=== PATIENT | male | born 1955 ===

== ENCOUNTER 2020-02-08 14:08 | Outpatient (REF) | payer OTHER, SELFPAY ==
--- NOTE | 2020-02-08 | US_ITS ---
EXAMINATION: NONINVASIVE ASSESSMENT OF THE ARTERIES OF BOTH LOWER EXTREMITIES WITH PVR EXAM AND BILATERAL LOWER EXTREMITY DUPLEX and aorta CLINICAL INFORMATION: Peripheral vascular disease TECHNIQUE: Ankle pulse volume recordings, ankle pressure measurements and ankle brachial indices were obtained of the lower extremity arterial system bilaterally in addition to duplex Doppler techniques with wave form analysis and measurement of velocities in the common femoral, profunda femoral, superficial femoral, popliteal and tibial arteries. The study was performed only at rest. COMPARISON: Previous exam July 2018 FINDINGS: a) AT REST: The aorta is normal in caliber. There is atherosclerotic plaque. Peak systolic velocity is normal measuring 10 8 cm/s. The common iliac arteries are not visualized due to bowel gas. There is increased peak systolic velocity in the bilateral external iliac arteries measuring 2 5 8 cm/s on the right and 2 0 5 cm/s on the left. RIGHT LE. The right ankle-brachial index is: 1.3 2. Right ankle pressure: Slightly decreased 3. Right ankle PVR waveform: Slightly dampened * 4. Right direct duplex Doppler findings: There is diffuse atherosclerotic disease with vessel wall calcification. There is visible narrowing of the distal superficial femoral, popliteal and posterior tibial arteries. Common femoral artery: 182 cm/s, Diastolic flow reversal: Yes * Superficial femoral artery (proximal, mid, distal): 155, 145 and 217 cm/s, Diastolic flow reversal: Yes * Popliteal artery: 109 cm/s, Diastolic flow reversal: Yes * Posterior tibial artery: 53 cm/s, Diastolic flow reversal: No LEFT LE. The left ankle-brachial index is: 1.3 2. Left ankle pressure: Decreased 3. Left ankle PVR waveform: Decreased 4. Left direct duplex Doppler findings: There is diffuse atherosclerotic disease with vessel wall calcification. There is significant stenosis of the common femoral artery. There is a prominent collateral vessel arising from the common femoral artery proximal to the stenosis. There is monophasic flow seen throughout the left lower extremity. * Common femoral artery: 663 cm/s, Diastolic flow reversal: No * Superficial femoral artery (proximal, mid, distal): 119, 77 and 66 cm/s, Diastolic flow reversal: No * Popliteal artery: 38 cm/s, Diastolic flow reversal: No * Posterior tibial artery: 53 cm/s, Diastolic flow reversal: No LES Reference: * >0.97-1.25 = normal - no significant arterial disease * 0.75-0.96 = mild peripheral arterial disease * 0.5-0.74 = moderate peripheral arterial disease * <0.50 = severe peripheral arterial disease US/US arterial duplex LE BI IMPRESSION: Normal caliber aorta and normal aortic peak systolic velocities. The common iliac arteries are not well visualized. There is increased peak velocity in the bilateral external iliac arteries, right greater than left. No significant visible stenosis is appreciated. Right: The right LES is 1.3. This may be artifactually elevated due to vessel wall calcification. There is mild stenosis of the distal superficial femoral, popliteal and posterior tibial arteries. Peak systolic velocities are normal. There is loss of diastolic flow reversal in the right posterior tibial artery only. Left: The left LES is 1.3. This may be artifactually elevated due to vessel wall calcification. Severe left common femoral artery stenosis with prominent collateral vessel. There is monophasic flow seen throughout the left lower extremity. . .
== END 2020-02-08 14:09 | disposition home or self-care (01) ==
LOC: HO.US 14:08
PROVIDERS: PCP Nurse Practitioner Family; Visit Provider Surgery Vascular Surgery
DX: I73.9 Peripheral vascular disease, unspecified (principal)
CPT/HCPCS: 76775; 93923; 93925

== ENCOUNTER 2020-02-12 15:30 | Outpatient (REF) | payer OTHER, SELFPAY | END 2020-02-12 15:31 | disposition home or self-care (01) | LOC: HO.US 15:30 | PROVIDERS: Visit Provider Surgery Vascular Surgery | DX: Z13.89 Encounter for screening for other disorder (principal) ==

== ENCOUNTER → 2020-03-15 13:44 | Outpatient (BNVA) | payer OTHER, SELFPAY | PROVIDERS: PCP Nurse Practitioner Family; Visit Provider Surgery Vascular Surgery | DX: Z76.89 Persons encountering health services in other specified circumstances (principal) | CPT/HCPCS: Q3014 ==

== ENCOUNTER 2020-04-20 13:08 | Emergency (ER) | payer OTHER, SELFPAY ==
[2020-04-20 13:24] VITALS: BP 107/82; PULSE 74; RESP 16; TEMP 36.6; O2SAT 97; BMI 28.1
--- NOTE | 2020-04-20 13:54 | PC.NURSE ---
+pp by doppler
[2020-04-20] MEDS: Lidocaine HCl 1 % MPF 5 ML VIAL SUBCUT ×2 (15:05)
--- NOTE | 2020-04-21 19:45 | ED.LOWEXIN ---
HPI - Extremity Injury (Lower) General Chief Complaint: Extremity Injury, Lower Stated Complaint: left foot toe pain Time Seen by Provider: 04/20/20 14:46 History of Present Illness HPI Narrative: Patient complains of left big toe pain around the nail bed which has been going on for many days and getting slightly worse and it hurts when it rubs shoe, no fever no chills no injury Related Data Previous Rx's Medication Instructions Recorded tamsulosin 0.4 mg capsule 0.4 mg PO BEDTIME #30 cap 01/14/20 Allergies Allergy/AdvReac Type Severity Reaction Status Date / Time No Known Allergies Allergy Verified 03/15/20 13:43 [No Known Allergies*] Review of Systems Review of Systems: Positive for left big toe pain around the toenail Negatives are no fever no chills no dizziness no weakness no joint pain no joint swelling no rash no numbness no weakness no wound PMFSH Past Medical History Source: nursing notes reviewed Medical History (Updated 04/21/20 @ 00:01 by Jaylon Stoner) Diabetes High cholesterol HTN (hypertension) Surgical History (Updated 04/20/20 @ 13:30 by Jennyfer Masters) H/O shoulder surgery History of amputation of right forefoot Social History Social History Smoked in Last 30 Days: No Use of substances other than those prescribed or required for medical reasons: No Advance Directives: No Advance Directives Information Provided: No Physical Exam Vital Signs: Vital Signs: Last Vital Signs Temp 97.9 F 04/20/20 13:24 Pulse 74 04/20/20 13:24 Resp 16 04/20/20 13:24 BP 107/82 04/20/20 13:24 Pulse Ox 97 04/20/20 13:24 Body Mass Index 28.1 General appearance comfortable relax cooperative no acute distress Normocephalic atraumatic The neck is supple Respiratory no acute distress Extremities the left big toe lateral aspect of the nail bed is slightly red tender and appears to have an ingrown nail, skin is intact there is no significant redness or warmth there is full range of motion in all joints Skin no rash Neural no numbness or weakness Course Course Course Narrative: A digital block is used with 8 cc of 1% lidocaine on the left big toe Good anesthesia achieved the toes cleansed with Betadine and the lateral aspect of the left 1st toenail is flipped out with a forceps and cut with the scissors and there was a large section of ingrown nail removed There was no sign of infection no pus no significant redness and a dressing was applied Discharge Plan Discharge Clinical Impression: Ingrowing toenail of left foot Patient Disposition: Home, Self-Care Additional Instructions: Ingrown section of toenail was removed Return any concerns or any worse condition, or any sign of infection Follow with primary doctor and manager gyn if needed especially if problem occurs again there are treatments that prevent it from happening again available from manager gyn Prescriptions: No Action tamsulosin 0.4 mg capsule 0.4 mg PO BEDTIME Qty: 30 RF: 2 Interventions: ED Discharge Assessment Last Done: 04/20/20 15:46 Discharge Date/Time: 04/20/20 15:47
== END 2020-04-20 15:47 | disposition home or self-care (01) ==
PROVIDERS: Emergency Provider Emergency Medicine Emergency Medical Services; PCP Nurse Practitioner Family
DX: L60.0 Ingrowing nail (principal); E11.9 Type 2 diabetes mellitus without complications; I10 Essential (primary) hypertension
CPT/HCPCS: 11730; 99283; 99284

== ENCOUNTER 2020-06-13 12:53 | Outpatient (REF) | payer OTHER, SELFPAY ==
--- NOTE | ~2020-06-13 | XR_ITS ---
EXAMINATION: XR LUMBOSACRAL SPINE CLINICAL INFORMATION: Lumbago with left-sided sciatica COMPARISON: None TECHNIQUE: Four views of the lumbosacral spine. FINDINGS: No fracture or subluxation. Vertebral body height and alignment is maintained. Mild disc space narrowing of L4-L5 with remaining disc spaces maintained. Moderate multilevel endplate osteophytes throughout the lumbar spine. Facet arthropathy at the lower lumbar spine. The sacroiliac joints are symmetric. The sacrum appears intact. The bowel gas pattern is unremarkable. XR/XR lumbar spine 2-3V IMPRESSION: Mild to moderate multilevel degenerative changes throughout the lumbar spine, progressed at the L4-L5 level compared to the March 2013 study.
== END 2020-06-13 12:54 | disposition home or self-care (01) ==
LOC: HO.XRAY 12:53
PROVIDERS: Absent Provider General Practice; PCP General Practice; Visit Provider Emergency Medicine
DX: M54.42 Lumbago with sciatica, left side (principal)
CPT/HCPCS: 72100

== ENCOUNTER 2020-08-30 14:02 | Outpatient (RCR) | payer OTHER, SELFPAY | END 2020-09-15 04:20 | disposition home or self-care (01) | LOC: HO.PT 14:02 | PROVIDERS: PCP Emergency Medicine; Visit Provider Emergency Medicine | DX: M54.42 Lumbago with sciatica, left side (principal) | CPT/HCPCS: 97110; 97162 ==

== ENCOUNTER 2020-09-21 08:13 | Emergency (ER) | payer OTHER, SELFPAY ==
[2020-09-21 08:16] VITALS: BP 129/79; PULSE 84; RESP 12; TEMP 36.8; O2SAT 97; BMI 27.9
--- NOTE | 2020-09-21 09:01 | ED.GENADULT ---
HPI - General Adult General Chief complaint: General Medical Stated complaint: toe injury Time Seen by Provider: 09/21/20 08:41 Source: patient Mode of arrival: ambulatory Limitations: no limitations History of Present Illness HPI narrative: 65 y/o male with history of diabetes, PAD s/p right TMA by Dr. Topete who presents to the ER with recurrent left great toenail and toe pain going on for several weeks.. He was here for the same in April and had an ingrown toenail removed. He reports the toenail came back with a large horizontal crack in it and it is causing him some discomfort. He also has pain on the medial and lateral aspects the great toenail. He denies injury or drainage of pus. 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 MD complaint: left great toe pain Location: lower extremity Radiation: non-radiation Severity: mild Severity scale (1-10): 3 Quality: aching Pain Consistency: intermittent Relieving factors: rest Exacerbating factors: movement Associated symptoms: denies other symptoms Treatments prior to arrival: none Related Data Previous Rx's Medication Instructions Recorded tamsulosin 0.4 mg capsule 0.4 mg PO BEDTIME #30 cap 05/09/20 cephalexin 500 mg PO Q6H 7 Days #28 cap 09/21/20 Allergies Allergy/AdvReac Type Severity Reaction Status Date / Time No Known Allergies Allergy Verified 03/15/20 13:43 [No Known Allergies*] Review of Systems Review of Systems: Constitutional: No Fever, No Chills Cardiovascular: No Chest Pain, No SOB Respiratory: No Cough, No Sputum Gastrointestinal: No Nausea, No Vomiting Musculoskeletal: + joint pain, No Myalgias Skin: + Skin Lesions, No rash Neuro: No Weakness, No Numbness Heme/Lymph: No Bruising, No Lymphadenopathy PMFSH Past Medical History Attestation statement: The following information was validated with the patient. Medical History Diabetes High cholesterol HTN (hypertension) Surgical History (Updated 04/20/20 @ 13:30 by Jennyfer Masters) H/O shoulder surgery History of amputation of right forefoot Social History Social History Advance Directives: Yes Advance Directives Information Provided: Yes Advance Directives on File: No Physical Exam Vital Signs: Vital Signs: Last Vital Signs Temp 98.2 F 09/21/20 08:16 Pulse 84 09/21/20 08:16 Resp 12 09/21/20 08:16 BP 129/79 09/21/20 08:16 Pulse Ox 97 09/21/20 08:16 Body Mass Index 27.9 Appearance: Alert. Oriented X3. No acute distress. HEENT: normal inspection CVS: Normal heart rate and rhythm. Pulses normal. Respiratory: No respiratory distress. Skin: Skin warm and dry. Normal skin color. Normal skin turgor. No rashes. Extremities: right foot s/p TMA, well healed. left great toe with horizontal crack in the toenail midway down the nail about 1/3 across, mild tenderness and erythema to the lateral nail folds without palpable fluctuance no drainage of pus Neuro: Oriented X 3. No motor deficit. No sensory deficit. Course Course Course Narrative: 65 y/o male with hx DM and PAD and hx ingrown toenail presenting with non-traumatic left great toe pain for several weeks. Given injury to the toenail and risk of causing further damage or harm, will refrain from attempting to remove ingrown nails. Will give Rx for antibiotics and referral to podiatry given this is a recurrent issue and he has significant comorbidities. He is agreeable with plan. Stable for d/c home. Critical Care Time Critical Care Time Critical Care Time: No Discharge Plan Discharge Clinical Impression: Pain around toenail Patient Disposition: Home, Self-Care Instructions: Ingrown Nail (ED) Additional Instructions: Use warm soaks 2-3 times per day with antibacterial soap or epsom salts. Take the prescribed antibiotic as directed for 1 week. Recommend following up with Podiatry [facility] as well as your primary care doctor. Prescriptions: New cephalexin 500 mg capsule 500 mg PO Q6H 7 Days Qty: 28 RF: 0 No Action tamsulosin 0.4 mg capsule 0.4 mg PO BEDTIME Qty: 30 RF: 2 Referrals: Roni Jaramillo MD [Physician] - 2 days (ingrown toe nail, broken nail, hx DM, hx PVD)
== END 2020-09-21 09:42 | disposition home or self-care (01) ==
PROVIDERS: Emergency Provider Emergency Medicine; PCP Emergency Medicine
DX: L60.0 Ingrowing nail (principal); Z79.899 Other long term (current) drug therapy
CPT/HCPCS: 99283

== ENCOUNTER 2021-03-07 13:26 | Outpatient (REF) | payer OTHER, SELFPAY ==
--- NOTE | ~2021-03-07 | US_ITS ---
EXAMINATION: US RETROPERITONEAL LIMITED (RENAL ONLY) CLINICAL INFORMATION: Chronic kidney disease, stage III. COMPARISON: CT abdomen and pelvis 04/27/2019. X-ray abdomen 03/03/2014. TECHNIQUE: Real-time imaging of the kidneys. FINDINGS: RIGHT KIDNEY: 11.8 x 5.5 x 5.6 cm (SAG x AP x TRV). The kidney is normal in size, with slightly lobular contour and normal echogenicity. Renal cortical thickness is normal. No calculi or focal parenchymal lesions. No hydronephrosis. LEFT KIDNEY: 11.3 x 6.0 x 4.6 cm (SAG x AP x TRV). The kidney is normal in size, with slightly lobular contour and normal echogenicity. Renal cortical thickness is normal. No calculi or focal parenchymal lesions. No hydronephrosis. US/US renal BI IMPRESSION: No significant abnormality seen.
== END 2021-03-07 13:27 | disposition home or self-care (01) ==
LOC: HO.US 13:26
PROVIDERS: PCP General Practice; Visit Provider Internal Medicine Nephrology
DX: N25.0 Renal osteodystrophy (principal); E11.22 Type 2 diabetes mellitus with diabetic chronic kidney disease; N18.31 Chronic kidney disease, stage 3a
CPT/HCPCS: 76775

== ENCOUNTER 2021-04-24 12:39 | Outpatient (REF) | payer OTHER, SELFPAY ==
--- NOTE | ~2021-04-24 | US_ITS ---
EXAMINATION: COLOR-FLOW DUPLEX IMAGING OF THE BILATERAL LOWER EXTREMITY ARTERIAL SYSTEM. VELOCITY MEASUREMENTS THROUGHOUT THE FEMORAL ARTERIES WITH ANKLE-BRACHIAL PERIPHERAL ARTERIAL TESTING. Interventional Radiologist: Dario Wisdom M.D., F.S.I.R., FEdmar.C.R. CLINICAL INFORMATION: This is a 66-year-old male with peripheral arterial disease. Diabetes. COMPARISON: Comparison is made to a previous study dated 02/08/2020 which demonstrated bilateral ankle-brachial indices of 1.3 but significantly elevated velocities in the left common femoral artery. A previous study dated 08/12/2018 demonstrated a right ankle-brachial index of 0.52 but a normal left ankle-brachial index. RIGHT FEMORAL RUNOFF VELOCITIES: The right common femoral artery measures 202 cm/s and triphasic. The right profunda femoral artery is 319 cm/s and is triphasic. Right proximal superficial femoral artery measures 312 cm/s and biphasic. Mid superficial femoral artery is 178 cm/s and monophasic. Distal right superficial femoral artery measures 169 cm/s and is triphasic. Right popliteal velocity measures 138 cm/s and is monophasic. The posterior tibial artery velocity measures 60 cm/s and was monophasic. The right ankle brachial index is 1.22. The waveforms appear flattened. LEFT FEMORAL RUNOFF VELOCITIES: The left common femoral artery measures 550 cm/s and monophasic. The left profunda femoral artery is 59 cm/s and is monophasic. Left proximal superficial femoral artery measures 100 cm/s and monophasic. Mid superficial femoral artery is 62 cm/s and monophasic. Distal left superficial femoral artery measures 108 cm/s and is monophasic. Left popliteal velocity measures 56 cm/s and is monophasic. The posterior tibial artery velocity measures 56 cm/s and was monophasic. The left ankle-brachial index is 1.22. The waveforms appear flattened. US/US arterial duplex LE BI IMPRESSION: 1. Abnormal peripheral arterial testing with abnormal velocity measurements. 2. Although the ankle-brachial indices appear normal on the right, there are elevated velocities in the right common femoral artery and proximal right superficial femoral artery. These appear to be hemodynamically significant and may represent a moderate-severe stenosis. 3. Although the ankle-brachial indices appear normal on the left, there are elevated velocities in the left common femoral artery suggests a hemodynamically significant stenosis.
--- NOTE | ~2021-04-24 | US_ITS ---
EXAMINATION: COLOR-FLOW DUPLEX IMAGING OF THE BILATERAL LOWER EXTREMITY ARTERIAL SYSTEM. VELOCITY MEASUREMENTS THROUGHOUT THE FEMORAL ARTERIES WITH ANKLE-BRACHIAL PERIPHERAL ARTERIAL TESTING. Interventional Radiologist: Dario Wisdom M.D., F.S.I.R., FVincenzoC.Keisha. CLINICAL INFORMATION: This is a 66-year-old male with peripheral arterial disease. Diabetes. COMPARISON: Comparison is made to a previous study dated 02/08/2020 which demonstrated bilateral ankle-brachial indices of 1.3 but significantly elevated velocities in the left common femoral artery. A previous study dated 08/12/2018 demonstrated a right ankle-brachial index of 0.52 but a normal left ankle-brachial index. RIGHT FEMORAL RUNOFF VELOCITIES: The right common femoral artery measures 202 cm/s and triphasic. The right profunda femoral artery is 319 cm/s and is triphasic. Right proximal superficial femoral artery measures 312 cm/s and biphasic. Mid superficial femoral artery is 178 cm/s and monophasic. Distal right superficial femoral artery measures 169 cm/s and is triphasic. Right popliteal velocity measures 138 cm/s and is monophasic. The posterior tibial artery velocity measures 60 cm/s and was monophasic. The right ankle brachial index is 1.22. The waveforms appear flattened. LEFT FEMORAL RUNOFF VELOCITIES: The left common femoral artery measures 550 cm/s and monophasic. The left profunda femoral artery is 59 cm/s and is monophasic. Left proximal superficial femoral artery measures 100 cm/s and monophasic. Mid superficial femoral artery is 62 cm/s and monophasic. Distal left superficial femoral artery measures 108 cm/s and is monophasic. Left popliteal velocity measures 56 cm/s and is monophasic. The posterior tibial artery velocity measures 56 cm/s and was monophasic. The left ankle-brachial index is 1.22. The waveforms appear flattened. US/US LES complete IMPRESSION: 1. Abnormal peripheral arterial testing with abnormal velocity measurements. 2. Although the ankle-brachial indices appear normal on the right, there are elevated velocities in the right common femoral artery and proximal right superficial femoral artery. These appear to be hemodynamically significant and may represent a moderate-severe stenosis. 3. Although the ankle-brachial indices appear normal on the left, there are elevated velocities in the left common femoral artery suggests a hemodynamically significant stenosis.
== END 2021-04-24 12:40 | disposition home or self-care (01) ==
LOC: HO.US 12:39
PROVIDERS: Visit Provider Surgery Vascular Surgery
DX: I65.29 Occlusion and stenosis of unspecified carotid artery (principal); I73.9 Peripheral vascular disease, unspecified
CPT/HCPCS: 93923; 93925

== ENCOUNTER → 2021-04-27 14:39 | Outpatient (BNVA) | payer OTHER, SELFPAY | PROVIDERS: PCP General Practice; Visit Provider Surgery Vascular Surgery | DX: I73.9 Peripheral vascular disease, unspecified (principal) | CPT/HCPCS: 99212 ==

== ENCOUNTER 2021-11-17 08:46 | Outpatient (RCR) | payer OTHER, SELFPAY | END 2022-02-02 13:00 | disposition home or self-care (01) | LOC: HO.WCC 08:46 | PROVIDERS: PCP General Practice; Visit Provider Physician Assistant | DX: E11.621 Type 2 diabetes mellitus with foot ulcer (principal); E11.52 Type 2 diabetes mellitus with diabetic peripheral angiopathy with gangrene; L97.529 Non-pressure chronic ulcer of other part of left foot with unspecified severity; E11.40 Type 2 diabetes mellitus with diabetic neuropathy, unspecified; E11.22 Type 2 diabetes mellitus with diabetic chronic kidney disease; I13.0 Hypertensive heart and chronic kidney disease with heart failure and stage 1 through stage 4 chronic kidney disease, or unspecified chronic kidney disease; I50.9 Heart failure, unspecified; N18.9 Chronic kidney disease, unspecified; Z87.891 Personal history of nicotine dependence | CPT/HCPCS: 99212; 99213 ==

== ENCOUNTER 2021-12-05 09:43 | Outpatient (REF) | payer OTHER, SELFPAY ==
--- NOTE | ~2021-12-05 | US_ITS ---
EXAMINATION: Noninvasive assessment of the left lower extremities with ARTERIAL DUPLEX and ANKLE BRACHIAL INDICES (ABIs). CLINICAL INFORMATION: Peripheral vascular disease with left lower extremity ischemic wound TECHNIQUE: Duplex Doppler techniques with waveform analysis and measurement of velocities in the left common femoral, profunda femoris, superficial femoral, popliteal and tibial arteries were performed. Additionally, ankle pulse volume recordings, ankle pressure measurements and ankle brachial indices were obtained of the lower extremity arterial system left. The study was performed only at rest. COMPARISON: None FINDINGS: DIRECT DUPLEX DOPPLER FINDINGS: LEFT LEG: Common femoral artery: 687 cm/s, phasicity: Monophasic. Heavily calcified plaque Profunda femoris artery: 104 cm/s, phasicity: Monophasic Superficial femoral artery (proximal): 84.9 cm/s, phasicity: Monophasic Superficial femoral artery (mid): 107 cm/s, phasicity: Monophasic Superficial femoral artery (distal): 68.8 cm/s, phasicity: Monophasic Popliteal artery: 41.6 cm/s, phasicity: Monophasic Posterior tibial artery: 77.4 cm/s, phasicity: Monophasic ANKLE-BRACHIAL INDEX: Left: 1.08 ANKLE PRESSURES: Left: PT?206, DP?203 ANKLE PVR WAVEFORMS: Left: Dampened US/US LES complete IMPRESSION: Left leg: Normal ankle brachial index however arterial pressure is markedly elevated and therefore essentially nondiagnostic. Pulse volume waveform is moderately dampened. Markedly elevated velocity seen in the common femoral artery with monophasic waveforms consistent with a severe stenosis
--- NOTE | ~2021-12-05 | US_ITS ---
EXAMINATION: Noninvasive assessment of the left lower extremities with ARTERIAL DUPLEX and ANKLE BRACHIAL INDICES (ABIs). CLINICAL INFORMATION: Peripheral vascular disease with left lower extremity ischemic wound TECHNIQUE: Duplex Doppler techniques with waveform analysis and measurement of velocities in the left common femoral, profunda femoris, superficial femoral, popliteal and tibial arteries were performed. Additionally, ankle pulse volume recordings, ankle pressure measurements and ankle brachial indices were obtained of the lower extremity arterial system left. The study was performed only at rest. COMPARISON: None FINDINGS: DIRECT DUPLEX DOPPLER FINDINGS: LEFT LEG: Common femoral artery: 687 cm/s, phasicity: Monophasic. Heavily calcified plaque Profunda femoris artery: 104 cm/s, phasicity: Monophasic Superficial femoral artery (proximal): 84.9 cm/s, phasicity: Monophasic Superficial femoral artery (mid): 107 cm/s, phasicity: Monophasic Superficial femoral artery (distal): 68.8 cm/s, phasicity: Monophasic Popliteal artery: 41.6 cm/s, phasicity: Monophasic Posterior tibial artery: 77.4 cm/s, phasicity: Monophasic ANKLE-BRACHIAL INDEX: Left: 1.08 ANKLE PRESSURES: Left: PT?206, DP?203 ANKLE PVR WAVEFORMS: Left: Dampened US/US arterial duplex LE LT IMPRESSION: Left leg: Normal ankle brachial index however arterial pressure is markedly elevated and therefore essentially nondiagnostic. Pulse volume waveform is moderately dampened. Markedly elevated velocity seen in the common femoral artery with monophasic waveforms consistent with a severe stenosis
== END 2021-12-05 09:44 | disposition home or self-care (01) ==
LOC: HO.US 09:43
PROVIDERS: Visit Provider Physician Assistant
DX: I73.9 Peripheral vascular disease, unspecified (principal); L97.529 Non-pressure chronic ulcer of other part of left foot with unspecified severity
CPT/HCPCS: 93923; 93926

== ENCOUNTER 2021-12-15 15:14 | Emergency (ER) | payer OTHER, SELFPAY ==
[2021-12-15 15:37] VITALS: BP 138/59; PULSE 70; RESP 16; TEMP 36.4; O2SAT 97; BMI 29.7
== END 2021-12-15 18:56 | disposition left against medical advice (07) ==
PROVIDERS: Emergency Provider Emergency Medicine
DX: M79.672 Pain in left foot (principal)
CPT/HCPCS: 99281; 99283

== ENCOUNTER 2021-12-19 14:13 | Outpatient (REF) | payer OTHER, SELFPAY ==
--- NOTE | ~2021-12-19 | XR_ITS ---
EXAMINATION: XR CHEST CLINICAL INFORMATION: Chronic cough COMPARISON: None TECHNIQUE: 2 views of the chest were obtained. FINDINGS: No significant abnormality is noted involving the heart, lungs, mediastinum, bony thorax or soft tissues. XR/XR chest 2V IMPRESSION: Unremarkable chest examination.
== END 2021-12-19 14:14 | disposition home or self-care (01) ==
LOC: HO.XRAY 14:13
PROVIDERS: Absent Provider General Practice; PCP General Practice; Visit Provider Nurse Practitioner Primary Care
DX: R05.3 Chronic cough (principal)
CPT/HCPCS: 71046

== ENCOUNTER → 2021-12-28 11:07 | Outpatient (BNVA) | payer OTHER, SELFPAY | PROVIDERS: PCP General Practice; Visit Provider Surgery Vascular Surgery | DX: I73.9 Peripheral vascular disease, unspecified (principal) | CPT/HCPCS: 99212 ==

== ENCOUNTER 2022-01-03 09:01 | Inpatient (IN) | payer OTHER, SELFPAY ==
[2022-01-03] VITALS (10 sets, daily range): BP systolic 159–194; BP diastolic 63–93; PULSE 62–69; RESP 16–18; TEMP 36.2–36.7; O2SAT 96–98; BMI 28.8
--- NOTE | ~2022-01-03 | NM_ITS ---
Myocardial perfusion study Indication: Preoperative cardiovascular risk stratification Technique: The patient was brought in for a Lexiscan perfusion study on 01/04/2022. Patient performed low-level exercise and was injected 0.4 mg of Lexiscan intravenously. Within a minute of injection, 30 mCi of sestamibi was given intravenously. Images were obtained using the SPECT gamma camera interlaced with the gating device. Images were obtained in supine position. Resting perfusion study was performed on 01/03/2022. Patient was administered 30 mCi of sestamibi intravenously at rest. Images were then obtained in supine position. Images obtained with and without CT attenuation. Total DLP 82 mGy-cm. Images were processed with the software and compared side to side in short axis, horizontal long axis and vertical long axis views. Findings: The stress perfusion study showed non attenuated images show mildly reduced uptake in the inferior wall of the LV myocardium. Remainder of the LV myocardium is normally perfused. Attenuation corrected images show normal uptake of radiotracer in all segments of LV myocardium.. The gated study shows normal LV systolic function with calculated LVEF of 57%. LV cavity is mildly dilated size. The gated study shows normal systolic wall thickening and contraction of segments. Resting study shows no change in perfusion pattern compared to stress perfusion study. Gating at rest reveals normal systolic wall motion with ejection fraction at 55%. The findings are consistent with normal myocardial perfusion. NM/NM ernesto perf SPECT rest & str Impression: 1. Myocardial perfusion imaging study shows normal myocardial perfusion 2. Gated LVEF is 57% 3. Transient ischemic dilatation not present EKG is nondiagnostic for ischemia
--- NOTE | ~2022-01-03 | US_ITS ---
EXAMINATION: US RETROPERITONEAL LIMITED (RENAL ONLY) CLINICAL INFORMATION: Hypertension. COMPARISON: Previous CTA of the abdomen and pelvis July 2018. TECHNIQUE: Grayscale and color Doppler imaging of the kidneys including waveform spectral analysis of the renal arteries. FINDINGS: RIGHT KIDNEY: 12.3 x 5.8 x 5.8 cm (SAG x AP x TRV). The kidney is normal in size, contour, and echogenicity. Renal cortical thickness is normal. No calculi or focal parenchymal lesions. No hydronephrosis. LEFT KIDNEY: 12.2 x 6.6 x 5.2 cm (SAG x AP x TRV). The kidney is normal in size, contour, and echogenicity. Renal cortical thickness is normal. No calculi or focal parenchymal lesions. No hydronephrosis. Aortic peak systolic velocity in the mid abdominal aorta is 110 cm/s. This is too high to be used to calculate renal artery to aorta ratio. The right renal artery is patent. Right renal artery peak systolic velocity measures 105 cm/s proximally, 235 cm/s in the midpole and 91 cm/s distally. Resistive indices in the segmental arteries are slightly elevated measuring 0.8. The right renal vein is patent. The left renal artery is patent. Left renal artery peak systolic velocities measure 149 cm/s proximally, 161 cm/s in the midportion and 44 cm/s distally. Left segmental renal artery resistive indices are slightly elevated measuring between 0.7 and 0.9. The left renal vein is patent. US/US renal BI IMPRESSION: Normal-appearing kidneys. Increased peak systolic velocity in the right mid renal artery questionable for right renal artery stenosis. Normal peak systolic velocities in the left renal artery. Increased segmental renal artery resistive indices bilaterally.
--- NOTE | ~2022-01-03 | US_ITS ---
EXAMINATION: ULTRASOUND RENAL DOPPLER See combined renal ultrasound report from the same day
[2022-01-03 06:30] LABS: MANUAL DIFF FLAG NO
[2022-01-03 06:42] LABS: Basophils Absolute Auto 0.1 X10*3/uL (0.0-0.2); Basophils Percent Auto 0.9 % (0-2); Eosinophils Absolute Auto 0.2 X10*3/uL (0.0-0.4); Eosinophils Percent Auto 2.4 % (0-4); Hematocrit 32.6 % (42.0-52.0); Hemoglobin 11.1 g/dl (14.0-18.0); Imm Gran Abs Auto 0.07 X10*3/uL (0.00-0.03); Imm Gran Pct Auto 0.9 % (0.0-0.4); Lymphocytes Absolute Auto 2.2 X10*3/uL (1.2-4.9); Lymphocytes Percent Auto 26.6 % (20-40); Mean Corpuscular Hemoglobin 31.5 pg (27.0-33.0); Mean Corpuscular Volume 92.6 fL (80.0-98.0); Mean Platelet Volume 9.8 fL (9.4-12.4); Neutrophils Absolute Auto 4.7 x10*3/uL (2.0-8.3); Neutrophils Percent Auto 57.2 % (45-73); Platelet Count 289 X10*3/uL (160-400); Red Blood Count 3.52 X10*6/uL (4.60-5.80); Red Cell Distribution Width 12.1 % (11.0-16.0); White Blood Count 8.2 X10*3/uL (4.8-10.8)
[2022-01-03] MEDS: 0.9 % Sodium Chloride 1,000 ML 100 ML IVCONT ×2 (06:43→21:18)
[2022-01-03 06:48] LABS: Glucose, Whole Blood 127 mg/dL (60-115)
[2022-01-03 06:50] LABS: Blood Urea Nitrogen 34 mg/dL (9-16); Creatinine Clr Calc Pharmacy 42.6; Estimated Glomerular Filt Rate 37
--- NOTE | 2022-01-03 09:10 | P.OP_ITS ---
Operative Note Operative Note Date of Service: 01/03/22 Narrative: Angiogram report from [facility] Preoperative diagnosis: Atherosclerosis of left lower extremity with nonhealing ulcer Postoperative diagnosis: Same Procedure: 1. Ultrasound-guided right common femoral access 2. Aortogram with left lower extremity runoff Surgeon:Lyle Topete M.D., FACS, RPVI Dwarf Tree Grower:None Anesthesia: Local with moderate conscious sedation. Total intraservice moderate sedation time was 25 minutes. I monitored the patient's level of consciousness and physiologic status continuously throughout the procedure. Specimens:none Drains:none Estimated blood loss: Less than 10 ml Implant: None Indications: Pleasant 66-year-old diabetic gentleman with nonhealing foot ulcer. He is known to have peripheral vascular disease and progression pain. On noninvasive testing there was confused Cerner of inflow and common femoral disease. He now presents for endovascular intervention The patient has signed the informed consent after reviewing risks, complications, benefits, and alternatives previously discussed with the patient. The patient was given the opportunity to ask any additional questions or voice any concerns. All questions were answered to the patient's satisfaction. Procedure in detail: Patient was brought to the angiography suite prior to which a time-out was called for patient identification and site verification. Bilateral groins were prepped and draped in the standard surgical fashion. Under ultrasound guidance right common femoral was punctured with micro puncture needle and wire. Subsequently a precision 4 Solomon Islander sheath was then placed. B Crisp Mediason wire was advanced to the level of the aorta. 4 Solomon Islander Flush catheter was brought up and parked at the level of the renal arteries. Aortogram was then undertaken. Catheter was brought down to the level of the iliac bifurcation. Iliacs were subsequently imaged. Catheter was then brought in up and over to the left side into the external iliac. Runoff study was then undertaken. Multiple orthogonal views were undertaken. Catheter wire sheath were then removed. 10 minutes direct pressure was held. Patient tolerated the procedure well. Returned to recovery with stable vitals. Interpretation of films: 1. Ultrasound demonstrates appropriate femoral puncture. Image of which was saved. 2. Aortogram demonstrates appropriate caliber aorta. Minimal disease. Appropriate take-off of the renals. 3. Iliac images demonstrate no significant disease 4. Left Leg Common femoral artery: Significant disease occlusive and reconstitutes via collaterals Profundus Femoris: Diminished due to common femoral occlusive disease Superficial femoral artery: No significant disease Popliteal artery (p1,p2,p3): No significant disease Anterior tibial artery: No significant disease Peroneal artery: Present but diminutive Posterior tibial artery: No significant disease Dorsalis pedis/plantar arch: In complete Conclusion: 1. Successful diagnostic angiogram. Patient will require left femoral endarterectomy. Due to the progression his foot and pain he is being admitted for further treatment 2. Anticoagulation status: None This note is constructed using voice recognition software. While every effort has been made to ensure accuracy, track patrol errors may have been included. Thank you for allowing me to participate in the care of your patient. Yours sincerely, Lyle Topete MD, FACS, R.P.V.I.
--- NOTE | 2022-01-03 09:15 | HO.VASCH&P ---
History of Present Illness History of Present Illness Date of Service: 01/03/22 Chief complaint: Nonhealing left leg healing wound Narrative: Kingsley Rivero is a 66 year old male who originally presented for an outpatient angio. Upon arrival it was discovered that his left foot had progressed. There was evidence of some cellulitis and increased pain. He had undergone diagnostic angiogram. He now presents for admission. Review of Systems Review of Systems: Yes all other systems are reviewed and are negative Constitutional: Constitutional: Reports no additional constitutional complaints ENT: Reports Normal hearing present Cardiovascular: Cardiovascular: Denies chest pain, Denies chest pain at rest, Denies chest pain with activity and Denies pedal edema Respiratory: Respiratory: Denies cough Gastrointestinal: Gastrointestinal: Denies abdominal pain Musculoskeletal: Musculoskeletal: Denies abnormal gait, Denies muscle cramps and Denies radiating pain into limb Integumentary/Breasts: Skin/Breast: Denies skin ulcer and Denies wounds Neurologic: Reports Normal hearing present and Denies abnormal gait Psychiatric: Psychiatric: Reports no additional psychiatric complaints PMF Past Medical History Medical History (Updated 01/03/22 @ 07:10 by Maida An RN) Diabetes High cholesterol HTN (hypertension) Kidney disease Surgical History Surgical History H/O shoulder surgery History of amputation of right forefoot Social History Social History Advance Directives: No Advance Directives Information Provided: Yes Meds Allergies Allergy/AdvReac Type Severity Reaction Status Date / Time No Known Allergies Allergy Verified 12/28/21 11:17 [No Known Allergies*] Active Medications: Current Medications Acetaminophen (Acetaminophen 325 Mg Tablet) 650 mg PO Q6H PRN PRN Reason: Pain, Mild (Pain Scale 1-3) Sodium Chloride (Ns) 1,000 mls @ 100 mls/hr IVCONT .Q10H [facility] Last Admin: 01/03/22 06:43 Dose: 100 mls/hr Cefazolin Sodium/Dextrose (Ancef) 2 gm in 50 mls @ 100 mls/hr IV Q12H [facility] Morphine Sulfate (Morphine Sulfate 4 Mg/Ml Cartridge) 4 mg IVPUSH Q2H PRN; Protocol PRN Reason: Pain, Severe (Pain Scale 7-10) Oxycodone HCl (Oxycodone Hcl Immed Release 5 Mg Tablet) 5 mg PO Q4H PRN PRN Reason: Pain, Moderate (Pain Scale 4-6 Home Medications Medication Instructions Recorded Confirmed Last Taken Type amlodipine 5 mg tablet 5 mg PO QPM 04/27/21 Unknown History atorvastatin 80 mg tablet 80 mg PO DAILY 04/27/21 Unknown History fluticasone propionate 50 2 spray intranasal QAM PRN 04/27/21 Unknown History mcg/actuation nasal spray,suspension furosemide 40 mg tablet 40 mg PO QAM 04/27/21 Unknown History gabapentin 100 mg capsule 100 mg PO TID 04/27/21 Unknown History glipizide 10 mg tablet 20 mg PO 04/27/21 Unknown History hydralazine 25 mg tablet 25 mg PO 04/27/21 Unknown History losartan 50 mg tablet 50 mg PO QAM 04/27/21 Unknown History metformin 1,000 mg tablet 1,000 mg PO BID 04/27/21 Unknown History metoprolol succinate 100 mg 100 mg PO DAILY 04/27/21 Unknown History tablet,extended release 24 hr sertraline 50 mg tablet 50 mg PO DAILY 04/27/21 Unknown History sitagliptin 100 mg tablet (Januvia) 100 mg PO DAILY 04/27/21 Unknown History amoxicillin 875 mg-potassium 1 tab PO BID 12/28/21 Unknown History clavulanate 125 mg tablet povidone-iodine 10 % topical ml topical 12/28/21 Unknown History solution Physical Exam Vital Signs: Vital Signs: Last Vital Signs Temp 98.0 F 01/03/22 09:00 Pulse 64 01/03/22 09:00 Resp 18 01/03/22 09:00 BP 161/63 H 01/03/22 09:00 Pulse Ox 98 01/03/22 09:00 O2 Del Method 01/03/22 09:00 BMI result Body Mass Index 28.8 Const: General: cooperative, healthy appearing and comfortable Orientation/consciousness: oriented to person, oriented to place and oriented to time HEENT: Head: Yes normal to inspection Neck: Neck: Yes normal visual inspection Carotids: no bruits Chest: Chest palpation & inspection: normal inspection of the chest Resp: Effort & Inspection: normal respiratory effort and able to speak in complete sentences Auscultation: clear to auscultation bilaterally, no crackles, no rales, no rhonchi and no wheezes Cardio: Rate: regular rate Rhythm: regular rhythm Heart sounds: S1 normal heart sound present and S2 normal heart sound present Bruits: no carotid bruits Peripheral pulses: dorsalis pedis present (Bilateral DP signal) GI: Inspection: Yes normal to inspection Skin: Other: Left foot ulcers on great toe and 3rd toe surrounding cellulitis Wounds: no wounds Hair: normal Neuro: General: oriented to person, oriented to place and oriented to time Cranial nerves: Yes CN's II-XII intact bilaterally and Yes Normal hearing present Cognition (Neuro): normal cognition Motor exam (neuro): 5/5 motor strength present throughout Extrem: Other: venous exam: No significant superficial varicosities or spider telangiectasias, minimal edema General: No clubbing, No cyanosis and No edema Psych: Appearance: grossly normal Mental Status: mental status grossly normal Speech and movement: Normal speech and movement present Results Results Labs: Short CBC 01/03/22 Range/Units 06:25 WBC 8.2 (4.8-10.8) X10*3/uL Hgb 11.1 L (14.0-18.0) g/dl Hct 32.6 L (42.0-52.0) % Plt Count 289 (160-400) X10*3/uL BMP 01/03/22 06:25 BUN 34 H Creatinine 1.82 H Assessment and Plan (1) PAD (peripheral artery disease): Status: Acute Plan In short patient has nonhealing left foot ulcer. Will plan for admission as the patient will require left femoral endarterectomy. He will be on IV antibiotic therapy. In addition will plan for operative intervention possibly this Saturday. I have requested a hospitalist consult. In addition I did request a Cardiology consult which was put in by me personally on 01/03/2022 at 09:03. Findings were discussed with the patient and he is in agreement. Quality Stroke Does the patient have a stroke diagnosis?: No VTE Prior VTE?: No VTE Risk Level:: Surgical - moderate VTE Device Contraindication: Procedure Contraindicated VTE Drug Contraindication: N/A - Med Ordered Procedures Date of Service Date of Service: 01/03/22
[2022-01-03] MEDS: ceFAZolin Sodium/Dextrose,Iso 2 GM/50 ML PIGGYBACK IV ×2 (09:39→21:14)
--- NOTE | 2022-01-03 10:37 | CA_ITS ---
Acquisition Time: 2022-01-04 11:14:21 Total Exercise Time: 00:02:00 Test Indications: Screening for CAD Medications: SEE EMAR Protocol: LEXISCAN Max HR: 071 BPM 46% of Pred: 154 BPM Max BP: 150/070 mmHG Max Work Load: 1.0 METS Pharmacological stress test with Lexiscan injection, while sitting and kicking his right leg, without anginal symptoms, without arrythmia, with normotensive response to injection, with nondiagnostic EKG for ischemia. In recovery he reported abdominal cramping that was treated with Aminophylline 75mg IVP to reverse Lexiscan with improvement in symptom. Nuclear images pending. Test reviewed with Dr Bonilla. Referred By: Kasia Voss Overread By: KASIA VOSS
--- NOTE | 2022-01-03 10:42 | P.CONCA_ITS ---
History of Present Illness History of Present Illness Date of Service: 01/03/22 Requesting physician: Lyle Topete Consult reason: pre-op evaluation Chief complaint: Nonhealing left leg healing wound Narrative: I was consulted to see Kingsley in cardiology consultation today for urgent preoperative cardiovascular risk stratification for patient to undergo left femoral endarterectomy under general anesthesia. This is considered intermedi ate risk surgery. Patient is not a great historian. Patient has undergone right metatarsal amputation few years ago. Not exactly able to tell the days. He said he has not had any intervention on his right leg. Reviewing his duplex ultrasound from April shows bilateral significant occlusive disease including left common femoral artery back then. However about 2 months ago patient developed nonhealing ulceration on the 3rd toe on his left foot. He also developed some cellulitis. He had a repeat ultrasound in November which again showed significant disease including severe stenosis in the left common femoral artery. For this reason was Greg for a diagnostic angiogram today any und erwent are abdominal runoff. This shows occlusive disease in the left common femoral artery with collateral with no significant disease in the left superficial femoral artery and is planned to undergo common femoral endarterectomy 5 days from now. Patient says he does not exercise much probably due to his right metatarsal amputation. But he can walk slowly for few minutes. He does not have any exertional chest pain or shortness of breath. Recently noted elevated blood pressure on multiple readings and including today his blood pressure is elevated otherwise he says blood pressure is generally well controlled. He also has history of diabetes which she says is well controlled. He is also on high-intensity statin therapy however was not aware of this. Patient has not had any prior cardiovascular events including no history of myocardial infarction or prior coronary revascularization. He has had no EKG in the system. Review of Systems Constitutional: Constitutional: Reports no additional constitutional complaints Eyes: Eyes: Reports no additional eye complaints Cardiovascular: Cardiovascular: Reports claudication and Reports leg ulcers Respiratory: Respiratory: Reports no additional respiratory complaints Gastrointestinal: Gastrointestinal: Reports no additional gastrointestinal complaints Genitourinary: Genitourinary: Reports no additional male genitourinary complaints Musculoskeletal: Musculoskeletal: Reports no additional musculoskeletal complaints Integumentary/Breasts: Skin/Breast: Reports system reviewed and no additional complaints, except as docu Neurologic: Reports system reviewed and no additional complaints, except as documented Psychiatric: Psychiatric: Reports no additional psychiatric complaints Endocrine: Endocrine: Reports no additional endocrine complaints Hematologic/Lymphatic: Hematologic/Lymphatic: Reports no additional hematologic/lymphatic complaints Allergic/Immunologic: Allergic/Immunologic: Reports no additional allergic/immunologic complaints [facility] Past Medical History Medical History Diabetes High cholesterol HTN (hypertension) Kidney disease Surgical History Surgical History H/O shoulder surgery History of amputation of right forefoot Social History Social History Advance Directives: No Advance Directives Information Provided: Yes Meds Allergies Allergy/AdvReac Type Severity Reaction Status Date / Time No Known Allergies Allergy Verified 12/28/21 11:17 [No Known Allergies*] Active Medications: Current Medications Acetaminophen (Acetaminophen 325 Mg Tablet) 650 mg PO Q6H PRN PRN Reason: Pain, Mild (Pain Scale 1-3) Heparin Sodium (Porcine) (Heparin Sodium,Porcine 5,000 Unit/Ml Vial) 5,000 unit SUBCUT Q8H [facility] Sodium Chloride (Ns) 1,000 mls @ 100 mls/hr IVCONT .Q10H [facility] Last Admin: 01/03/22 06:43 Dose: 100 mls/hr Cefazolin Sodium/Dextrose (Ancef) 2 gm in 50 mls @ 100 mls/hr IV Q12H [facility] Last Admin: 01/03/22 09:39 Dose: 100 mls/hr Morphine Sulfate (Morphine Sulfate 4 Mg/Ml Cartridge) 4 mg IVPUSH Q2H PRN; Protocol PRN Reason: Pain, Severe (Pain Scale 7-10) Oxycodone HCl (Oxycodone Hcl Immed Release 5 Mg Tablet) 5 mg PO Q4H PRN PRN Reason: Pain, Moderate (Pain Scale 4-6 Home Medications Medication Instructions Recorded Confirmed Last Taken Type amlodipine 5 mg tablet 5 mg PO QPM 04/27/21 Unknown History atorvastatin 80 mg tablet 80 mg PO DAILY 04/27/21 Unknown History fluticasone propionate 50 2 spray intranasal QAM PRN Nasal 04/27/21 Unknown History mcg/actuation nasal Congestion spray,suspension furosemide 40 mg tablet 40 mg PO QAM 04/27/21 Unknown History gabapentin 100 mg capsule 100 mg PO TID 04/27/21 Unknown History glipizide 10 mg tablet 20 mg PO BID 04/27/21 Unknown History hydralazine 25 mg tablet 25 mg PO BID 04/27/21 Unknown History losartan 50 mg tablet 50 mg PO QAM 04/27/21 Unknown History metformin 1,000 mg tablet 1,000 mg PO BID 04/27/21 Unknown History metoprolol succinate 100 mg 100 mg PO DAILY 04/27/21 Unknown History tablet,extended release 24 hr sertraline 50 mg tablet 50 mg PO DAILY 04/27/21 Unknown History sitagliptin 100 mg tablet (Januvia) 100 mg PO DAILY 04/27/21 Unknown History povidone-iodine 10 % topical ml topical 12/28/21 Unknown History solution insulin degludec 100 unit/mL (3 unit subcut 01/03/22 Unknown History mL) subcutaneous pen (Tresiba FlexTouch U-100 insulin) Physical Exam Vital Signs: Vital Signs: Last Vital Signs Temp 98.0 F 01/03/22 09:00 Pulse 67 01/03/22 10:30 Resp 18 01/03/22 10:30 BP 178/73 H 01/03/22 10:30 Pulse Ox 98 01/03/22 10:30 O2 Del Method 01/03/22 09:15 BMI result Body Mass Index 28.8 Const: General: cooperative, comfortable, no acute distress, alert and awake Nutritional Appearance: overweight Orientation/consciousness: patient orie nted x3 HEENT: Head: Yes normocephalic and Yes atraumatic Neck: Neck: Yes trachea midline, Yes supple and Yes no JVD Chest: Chest palpation & inspection: normal inspection of the chest Resp: Effort & Inspection: normal respiratory effort Auscultation: clear to auscultation bilaterally Cardio: Jugular venous distension: no JVD Palpation: normal PMI Rate: regular rate Rhythm: regular rhythm Heart sounds: S1 normal heart sound present, S2 normal heart sound present, no click, no gallops and no murmurs Peripheral pulses: dorsalis pedis pulses not present GI: Auscultation: normal bowel sounds Skin: General skin exam: no rashes or lesions noted Neuro: General: patient oriented x3 Extrem: General: Yes no clubbing, cyanosis or edema and Yes other ( Right transmetatarsal amputation. bilateral ischemic changes in the feet) Objective Labs and Meds Result diagrams: 01/03/22 06:25 01/03/22 06:25 Lab results: Laboratory Results - last 24 hr 01/03/22 01/03/22 01/03/22 06:25 06:25 06:44 WBC 8.2 RBC 3.52 L Hgb 11.1 L Hct 32.6 L MCV 92.6 MCH 31.5 MCHC 34.0 RDW 12.1 Plt Count 289 MPV 9.8 Immature Gran % (Auto) 0.9 H Neut % (Auto) 57.2 Lymph % (Auto) 26.6 [place] % (Auto) 12.0 H Eos % (Auto) 2.4 Baso % (Auto) 0.9 Lymph # (Auto) 2.2 [place] # (Auto) 1.0 Eos # (Auto) 0.2 Baso # (Auto) 0.1 Abs Immat Gran (auto) 0.07 H Absolute Neuts (auto) 4.7 Absolute Nucleated RBC 0.000 Nucleated RBC % (auto) 0.0 BUN 34 H Creatinine 1.82 H Estim Creat Clear Calc 42.6 Estimated GFR 37 POC Glucose 127 H Assessment and Plan (1) Preoperative cardiovascular examination: Status: Acute preoperative cardiovascular risk stratification in this elderly gentleman with multiple risk factors for vascular disease including having underlying peripheral vascular disease with limited exercise capacity to undergo left femoral endarterectomy under general anesthesia which is considered intermediate risk surgery. However given his limited exercise capacity as per ACC / aha guidelines he should undergo preoperative cardiovascular risk stratification w ith a myocardial perfusion imaging. As he cannot exercise on a treadmill, will pursue vasodilating myocardial perfusion imaging. Resting will be performed today and stress test performed tomorrow. Further recommendations based on the finding of the stress test. He also needs a preoperative EKG. Given his multiple risk factors and uncontrolled hypertension he should also undergo an echocardiogram to evaluate LV systolic and diastolic function to further risk stratification. he should be restarted on his usual medication including high- intensity statin therapy, aspirin and his blood pressure medications. Target goal blood pressure less than 130/84. Please reinitiate his metoprolol therapy for perioperative protection. Continue other medications and closely monitor his blood pressure and treated. Continue management of his diabetes as well. Management was discussed with the patient and understood. Will follow with you. Procedures Date of Service Date of Service: 01/03/22
[2022-01-03] MEDS: Heparin Sodium,Porcine 5,000 UNIT/ML VIAL 5000 UNIT SUBCUT ×2 (10:58→17:00)
[2022-01-03 11:08] LABS: Glucose, Whole Blood 201 mg/dL (60-115)
--- NOTE | 2022-01-03 11:35 | PHA.MEDREC ---
Pharmacy Consult ? Medication Reconciliation Pharmacy has completed the medication reconciliation.Using an paraprofessional interpreter the patient provided a list to confirm his medications at home. He clarified discrepancies found on his list and states no longer taking gabapentin.
[2022-01-03] MEDS: oxyCODONE HCl Immed Release 5 MG TABLET PO ×2 (13:34→21:13)
[2022-01-03 15:56] LABS: Glucose, Whole Blood 202 mg/dL (60-115)
--- NOTE | 2022-01-03 16:38 | HO.PM.IMCN ---
History of Present Illness Data of Consult Service Date: 01/03/22 Primary Care Provider: Marline Richard MD HPI 66 year old with DM, HTN, CKD3, HLD all controlled with meds peripharal vascular/arterial disease, he has prior hitory of metatarsal amputation. He underwent Preoperative diagnosis with finding of? Atherosclerosis of left lower extremity with nonhealing ulcer. Today he had 1. Ultrasound-guided right common femoral access 2. Aortogram with left lower extremity runoff and possible plan for further intervention. Review of Systems Review of Systems: Gen: no fever Resp: no sob, no cough CV: no chest, no ARELLANO, no leg edema GI: No n/v, no abd pain Neuro: No confusion Mild pain in the left foot PMFSH Medical History Diabetes High cholesterol HTN (hypertension) Kidney disease Surgical History H/O shoulder surgery History of amputation of right forefoot Social History Household Members: None Housing: Apartment Do you presently have visiting nurse or other home services: No Patient Tobacco Use Status: Never used Tobacco Use of substances other than those prescribed or required for medical reasons: No Currently Displaying Signs/Symptoms of Drug Intoxication Withdrawal: No Have you been hit, kicked, punched, or otherwise hurt by someone within the past year? If so, by whom?: No Do you feel safe in your current relationship?: No Current Relationship Is there a partner from a previous relationship who is making you feel unsafe now?: No Are you made to feel afraid or neglected: No Advance Directives: No Advance Directives Information Provided: Yes Do you have thoughts of harming others: None Do you have a plan to hurt others: No Plan Recently lost weight without trying: No How much weight loss: Not applicable Eating poorly because of decreased appetite: No Nutrition screen score: 0 Nutrition Risks: No Nutritional Risk Poor oral hygiene: No Meds Allergies Allergy/AdvReac Type Severity Reaction Status Date / Time No Known Allergies Allergy Verified 12/28/21 11:17 [No Known Allergies*] Active Medications: Current Medications Acetaminophen (Acetaminophen 325 Mg Tablet) 650 mg PO Q6H PRN PRN Reason: Pain, Mild (Pain Scale 1-3) Amlodipine Besylate (Amlodipine Besylate 5 Mg Tablet) 5 mg PO QPM [facility]; Protocol Atorvastatin Calcium (Atorvastatin Calcium 80 Mg Tablet) 80 mg PO DAILY [facility] Fluticasone Propionate (Fluticasone Propionate Nasal 16 Gm [place]) 2 spray NOSTRIL-B QAM PRN PRN Reason: Nasal Congestion Furosemide (Furosemide 40 Mg Tablet) 40 mg PO QAM [facility]; Protocol Glipizide (Glipizide 10 Mg Tablet) 20 mg PO BID [facility] Heparin Sodium (Porcine) (Heparin Sodium,Porcine 5,000 Unit/Ml Vial) 5,000 unit SUBCUT Q8H [facility] Last Admin: 01/03/22 10:58 Dose: 5,000 unit Hydralazine HCl (Hydralazine Hcl 25 Mg Tablet) 25 mg PO BID [facility]; Protocol Sodium Chloride (Ns) 1,000 mls @ 100 mls/hr IVCONT .Q10H [facility] Last Admin: 01/03/22 15:20 Dose: Not Given Cefazolin Sodium/Dextrose (Ancef) 2 gm in 50 mls @ 100 mls/hr IV Q12H [facility] Last Infusion: 01/03/22 10:51 Dose: Infused Losartan Potassium (Losartan Potassium 50 Mg Tablet) 50 mg PO QAM [facility]; Protocol Metformin HCl (Metformin Hcl 1,000 Mg Tablet) 1,000 mg PO BID [facility] Metoprolol Succinate (Metoprolol Succinate Er 100 Mg Tab.Er.24h) 100 mg PO DAILY [facility]; Protocol Morphine Sulfate (Morphine Sulfate 4 Mg/Ml Cartridge) 4 mg IVPUSH Q2H PRN; Protocol PRN Reason: Pain, Severe (Pain Scale 7-10) Non-Formulary Medication (Insulin Degludec [Tresiba Flextouch U-100]) 25 unit SUBCUT QPM [facility] Oxycodone HCl (Oxycodone Hcl Immed Release 5 Mg Tablet) 5 mg PO Q4H PRN PRN Reason: Pain, Moderate (Pain Scale 4-6 Last Admin: 01/03/22 13:34 Dose: 5 mg Sertraline HCl (Sertraline Hcl 50 Mg Tablet) 50 mg PO DAILY [facility] Sitagliptin Phosphate (Sitagliptin Phosphate 100 Mg Tablet) 100 mg PO DAILY [facility] Tamsulosin HCl (Tamsulosin Hcl 0.4 Mg Capsule) 0.4 mg PO BEDTIME [facility] Home Medications Medication Instructions Recorded Confirmed Last Taken Type amlodipine 5 mg tablet 5 mg PO QPM 04/27/21 01/03/22 01/02/22 History atorvastatin 80 mg tablet 80 mg PO DAILY 04/27/21 01/03/22 01/02/22 History fluticasone propionate 50 2 spray intranasal QAM PRN Nasal 04/27/21 01/03/22 01/02/22 History mcg/actuation nasal Congestion spray,suspension furosemide 40 mg tablet 40 mg PO QAM 04/27/21 01/03/22 01/02/22 History glipizide 10 mg tablet 20 mg PO BID 04/27/21 01/03/22 01/02/22 History hydralazine 25 mg tablet 25 mg PO BID 04/27/21 01/03/22 01/02/22 History losartan 50 mg tablet 50 mg PO QAM 04/27/21 01/03/22 01/02/22 History metformin 1,000 mg tablet 1,000 mg PO BID 04/27/21 01/03/22 12/31/21 History metoprolol succinate 100 mg 100 mg PO DAILY 04/27/21 01/03/22 01/02/22 History tablet,extended release 24 hr sertraline 50 mg tablet 50 mg PO DAILY 04/27/21 01/03/22 01/02/22 History sitagliptin 100 mg tablet (Januvia) 100 mg PO DAILY 04/27/21 01/03/22 01/02/22 History povidone-iodine 10 % topical See Rx Instructions .Route .COMPLEX 12/28/21 01/03/22 01/02/22 History solution insulin degludec 100 unit/mL (3 25 unit subcut QPM 01/03/22 01/03/22 01/02/22 History mL) subcutaneous pen (Tresiba FlexTouch U-100 insulin) Physical Exam Vital Signs and Narrative: Vital Signs: Last Vital Signs Temp 98.1 F 01/03/22 15:42 Pulse 62 01/03/22 15:42 Resp 16 01/03/22 15:42 BP 172/69 H 01/03/22 15:42 Pulse Ox 96 01/03/22 15:42 O2 Del Method 01/03/22 15:42 BMI result Body Mass Index 28.8 Const: Other: Constitutional: Alert, in no distress, overweight. Mental Status: Oriented to person, place and time. Eyes: Pupils are equal, round and reactive to light. Ear, Nose and Throat: Oropharynx clear, mucous membranes moist. Ears and nose without eformities. Trachea midline. Respiratory: Clear to auscultation. No wheezing, rales or rhonchi. Cardiovascular: S1 S2 regular. No murmurs, rubs or gallops. Gastrointestinal: Abdomen soft, non-tender, non-distended. Normal bowel sounds.? Neurologic: Cranial nerves II-XII grossly intact. No focal neurological deficits. Moves all extremities spontaneously.? Skin: No rashes or lesions.? Musculoskeletal: No cyanosis or clubbing. Psychiatric: Normal mood and affect? Results Labs CBC and Chem 7: 01/03/22 06:25 01/03/22 06:25 Assessment and Plan (1) HTN (hypertension): Status: Acute (2) Preoperative cardiovascular examination: Status: Acute (3) PAD (peripheral artery disease): Status: Acute Plan 66 year old with DM, HTN, CKD3, HLD all controlled with meds peripharal vascular/arterial disease, he has prior hitory of metatarsal amputation. He underwent Preoperative diagnosis with finding of? Atherosclerosis of left lower extremity with nonhealing ulcer. Today he had 1. Ultrasound-guided right common femoral access 2. Aortogram with left lower extremity runoff. His pain is now better. BP is high. Has no SOB, no chest pain 1/PAD/PVD-management per vascular 2/ Diabetes--restart meds, SSI, diabetic diet 3/HTN--restart meds 4/HLD-continue statin 5/ I don't think patient has cellulitis of the left foot but empiric antibiotic is reasonable. 6/CKD 3 is stable.
[2022-01-03] MEDS: metFORMIN HCl 1,000 MG TABLET 1000 MG PO (16:57)
[2022-01-03] MEDS: Metoprolol Succinate ER 100 MG TAB.ER.24H PO (16:57)
[2022-01-03 20:44] LABS: Glucose, Whole Blood 141 mg/dL (60-115)
[2022-01-03] MEDS: glipiZIDE 10 MG TABLET 20 MG PO (21:13)
[2022-01-03] MEDS: Tamsulosin HCL 0.4 MG CAPSULE PO (21:13)
[2022-01-03] MEDS: hydrALAZINE HCl 25 MG TABLET PO (21:13)
[2022-01-03] MEDS: amLODIPine Besylate 5 MG TABLET PO (21:13)
[2022-01-03] MEDS: Insulin Glargine,Hum.rec.anlog 100 UNIT/ML 10 ML VIAL 17 UNIT SUBCUT (21:14)
[2022-01-04] VITALS (17 sets, daily range): BP systolic 138–199; BP diastolic 59–93; PULSE 56–71; RESP 16–18; TEMP 36.1–36.6; O2SAT 94–98
--- NOTE | 2022-01-04 | ECG_ITS ---
Test Reason : PREOP Blood Pressure : / mmHG Vent. Rate : 059 BPM Atrial Rate : 059 BPM P-R Int : 238 ms QRS Dur : 092 ms QT Int : 414 ms P-R-T Axes : 102 015 006 degrees QTc Int : 409 ms Sinus bradycardia with 1st degree A-V block Otherwise normal ECG When compared with ECG of 26-JAN-2019 23:57, [place] interval has increased Heart rate has decreased Referred By: Kasia Voss Electronically Signed By:SWEETIE CASTRO MD
[2022-01-04] MEDS: Heparin Sodium,Porcine 5,000 UNIT/ML VIAL 5000 UNIT SUBCUT ×3 (01:24→17:24)
[2022-01-04 01:32] LABS: Glucose, Whole Blood 50 mg/dL (60-115)
[2022-01-04 02:11] LABS: Glucose, Whole Blood 158 mg/dL (60-115)
[2022-01-04] MEDS: 0.9 % Sodium Chloride 1,000 ML 100 ML IVCONT ×2 (06:13→17:40)
[2022-01-04 07:31] LABS: Glucose, Whole Blood 139 mg/dL (60-115)
[2022-01-04] MEDS: hydrALAZINE HCl 25 MG TABLET PO ×2 (08:20→13:39)
[2022-01-04] MEDS: Metoprolol Succinate ER 100 MG TAB.ER.24H PO (08:20)
[2022-01-04] MEDS: Atorvastatin Calcium 80 MG TABLET PO (08:21)
[2022-01-04] MEDS: Furosemide 40 MG TABLET PO (08:21)
[2022-01-04] MEDS: glipiZIDE 10 MG TABLET 20 MG PO ×2 (08:21→20:10)
[2022-01-04] MEDS: Losartan Potassium 50 MG TABLET PO (08:21)
[2022-01-04] MEDS: SITagliptin Phosphate 100 MG TABLET PO (08:21)
[2022-01-04] MEDS: Sertraline HCL 50 MG TABLET PO (08:22)
[2022-01-04] MEDS: ceFAZolin Sodium/Dextrose,Iso 2 GM/50 ML PIGGYBACK IV ×2 (08:22→20:15)
[2022-01-04] MEDS: metFORMIN HCl 1,000 MG TABLET 1000 MG PO (08:22)
[2022-01-04] MEDS: Acetaminophen 325 MG TABLET 650 MG PO (08:33)
--- NOTE | 2022-01-04 10:04 | PC.NURSE ---
Assumed care of patient at this time.
--- NOTE | 2022-01-04 11:00 | PC.NURSE ---
Patient transported via wheelchair for second apart of stress test at this time.
--- NOTE | 2022-01-04 12:22 | P.PNCA_ITS ---
Subjective Subjective Date of Service: 01/04/22 <ZOHAIB Mercer - Last Filed: 01/04/22 13:08> 01/04/22 <Elia Bonilla MD - Last Filed: 01/04/22 13:13> Principal diagnosis: PVD, preop Left femoral endarterectomy <ZOHAIB Mercer - Last Filed: 01/04/22 13:08> Interval history: Sen at 1130. Today he reports that he has discomfort in left foot. He denies chest discomfort, sob, palpitations, dizziness. Having stress portion of stress test today. He is planning for his surgery on Monday 01/08. <ZOHAIB Mercer - Last Filed: 01/04/22 13:08> Review of Systems Review of Systems as above <ZOHAIB Mercer - Last Filed: 01/04/22 13:08> Yes all other systems are reviewed and are negative <ZOHAIB Mercer - Last Filed: 01/04/22 13:08> Physical Exam Vital Signs: Last Vital Signs Temp 97.2 F 01/04/22 07:09 Pulse 70 01/04/22 07:09 Resp 16 01/04/22 07:09 BP 196/85 H 01/04/22 07:09 Pulse Ox 95 01/04/22 07:09 O2 Del Method 01/04/22 07:09 BMI result Body Mass Index 28.8 <ZOHAIB Mercer - Last Filed: 01/04/22 13:08> Const General: cooperative, comfortable and no acute distress <ZOHAIB Mercer - Last Filed: 01/04/22 13:08> Orientation/consciousness: patient oriented x3 <ZOHAIB Mercer - Last Filed: 01/04/22 13:08> Neck Neck: Yes normal visual inspection <ZOHAIB Mercer Last Filed: 01/04/22 13:08> Resp Effort & Inspection: normal respiratory effort <ZOHAIB Mercer Last Filed: 01/04/22 13:08> Auscultation: clear to auscultation bilaterally, no crackles, no rales, no rhonchi and no wheezes <ZOHAIB Mercer - Last Filed: 01/04/22 13:08> Cardio Rate: regular rate <ZOHAIB Mercer - Last Filed: 01/04/22 13:08> Rhythm: regular rhythm <ZOHAIB Mercer - Last Filed: 01/04/22 13:08> Heart sounds: S1 normal heart sound present, S2 normal heart sound present, no murmurs and no rubs <ZOHAIB Mercer - Last Filed: 01/04/22 13:08> Neuro General: patient oriented x3 <ZOHAIB Mercer - Last Filed: 01/04/22 13:08> Extrem Other: Right transmetatarsal amp. Left toes with ulcerations noted. Legs warm to touch without significant edema. <ZOHAIB Mercer - Last Filed: 01/04/22 13:08> Psych Appearance: grossly normal <ZOHAIB Mercer - Last Filed: 01/04/22 13:08> Mental Status: mental status grossly normal <ZOHAIB Mercer - Last Filed: 01/04/22 13:08> Speech and movement: Normal speech and movement present <ZOHAIB Mercer - Last Filed: 01/04/22 13:08> Objective Labs and Meds Result diagrams: : 01/03/22 06:25 01/03/22 06:25 <ZOHAIB Mercer - Last Filed: 01/04/22 13:08> Lab results: Laboratory Results - last 24 hr 01/03/22 01/03/22 01/04/22 15:45 20:35 01:25 POC Glucose 202 H 141 H 50 L* 01/04/22 01/04/22 02:06 07:12 POC Glucose 158 H 139 H <ZOHAIB Mercer - Last Filed: 01/04/22 13:08> Progress Note: A&P Assessment and plan (1) Preoperative cardiovascular examination: Status: Acute <ZOHAIB Mercer - Last Filed: 01/04/22 13:08> Assessment and Plan: Preop for Left Femoral endarterectomy. Pt anticipates having his surgery on Saturday01/08/[address] Topete. He has no known hx of CAD. He does have cardiac risk factors of HTN, HLD, DM. EKG today shows SR, 1st degree avb, rate 59, QTc 409ms. Nuclear stress test is being completed today. Once results are known, addendum with clearance risk will be added. <ZOHAIB Mercer - Last Filed: 01/04/22 13:08> Preop for Left Femoral endarterectomy. Pt anticipates having his surgery on Saturday01/08/[address] Topete. He has no known hx of CAD. He does have cardiac risk factors of HTN, HLD, DM. EKG today shows SR, 1st degree avb, rate 59, QTc 409ms. Nuclear stress test is being completed today. Once results are known, addendum with clearance risk will be added. Patient seen and examined. Case discussed with Kasia Voss. Patient nuclear stress test is within normal limits. Low risk for perioperative cardiovascular morbidity mortality is currently optimized to undergo surgery with continued aggressive control of blood pressure needs to be pursued. <Elia Bonilla MD - Last Filed: 01/04/22 13:13> (2) PAD (peripheral artery disease): Status: Acute <ZOHAIB Mercer - Last Filed: 01/04/22 13:08> (3) HTN (hypertension): Status: Acute <ZOHAIB Mercer - Last Filed: 01/04/22 13:08> Assessment and Plan: BP elevated this admission. Pt does have pain in left foot which can contribute. He is currently on Amlodipine, Metoprolol, Lasix, hydralazine, losartan. Current med list matches his home list. At this time will increase H ydralazine to 50mg bid, from 25mg bid. Continue to treat pain as needed. <ZOHAIB Mercer - Last Filed: 01/04/22 13:08> BP elevated this admission. Pt does have pain in left foot which can contribute. He is currently on Amlodipine, Metoprolol, Lasix, hydralazine, losartan. Current med list matches his home list. At this time will increase Hydralazine to 50mg bid, from 25mg bid. Continue to treat pain as needed. Agree with above. <Elia Bonilla MD - Last Filed: 01/04/22 13:13> Time Spent With Patient Time: Total time spent is greater than 50% in coordination of care (as documented) at patient's floor/unit and/or counseling patient: 20 <ZOHAIB Mercer - Last Filed: 01/04/22 13:08> Progress Note: Quality Stroke Does the patient have a stroke diagnosis?: No <ZOHAIB Mercer - Last Filed: 01/04/22 13:08> Procedures Date of Service Date of Service: 01/04/22 <ZOHAIB Mercer - Last Filed: 01/04/22 13:08>
--- NOTE | 2022-01-04 12:28 | HO.PM.IMPN ---
Subjective Subjective Date of Service: 01/04/22 Interval History: seen inf/fur for HTN, diabetes, PAD interval history: some pain in the left foot Review of Systems Gen: no fever Resp: no sob, no cough CV: no chest, no ARELLAON, no leg edema GI: No n/v, no abd pain Neuro: No confusion Mild pain in the left foot Physical Exam Vital Signs: Vital Signs: Last Vital Signs Temp 97.2 F 01/04/22 07:09 Pulse 70 01/04/22 07:09 Resp 16 01/04/22 07:09 BP 196/85 H 01/04/22 07:09 Pulse Ox 95 01/04/22 07:09 O2 Del Method 01/04/22 07:09 BMI result Body Mass Index 28.8 Const: Other: Constitutional: Alert, in no distress, overweight. Mental Status: Oriented to person, place and time. Eyes: Pupils are equal, round and reactive to light. Ear, Nose and Throat: Oropharynx clear, mucous membranes moist. Ears and nose without eformities. Trachea midline. Respiratory: Clear to auscultation. No wheezing, rales or rhonchi. Cardiovascular: S1 S2 regular. No murmurs, rubs or gallops. Gastrointestinal: Abdomen soft, non-tender, non-distended. Normal bowel sounds.? Neurologic: Cranial nerves II-XII grossly intact. No focal neurological deficits. Moves all extremities spontaneously.? Skin: No rashes or lesions.? Musculoskeletal: No cyanosis or clubbing. Psychiatric: Normal mood and affect? Objective Data Active Medications Acetaminophen (Acetaminophen 325 Mg Tablet) 650 mg PO Q6H PRN PRN Reason: Pain, Mild (Pain Scale 1-3) Last Admin: 01/04/22 08:33 Dose: 650 mg Documented By: NINA Amlodipine Besylate (Amlodipine Besylate 5 Mg Tablet) 5 mg PO BEDTIME [facility]; Protocol Last Admin: 01/03/22 21:13 Dose: 5 mg Documented By: JULIA Atorvastatin Calcium (Atorvastatin Calcium 80 Mg Tablet) 80 mg PO DAILY [facility] Last Admin: 01/04/22 08:21 Dose: 80 mg Documented By: NINA Fluticasone Propionate (Fluticasone Propionate Nasal 16 Gm [place]) 2 spray NOSTRIL-B DAILY PRN PRN Reason: Nasal Congestion Furosemide (Furosemide 40 Mg Tablet) 40 mg PO DAILY [facility]; Protocol Last Admin: 01/04/22 08:21 Dose: 40 mg Documented By: NINA Glipizide (Glipizide 10 Mg Tablet) 20 mg PO BID [facility] Last Admin: 01/04/22 08:21 Dose: 20 mg Documented By: NINA Heparin Sodium (Porcine) (Heparin Sodium,Porcine 5,000 Unit/Ml Vial) 5,000 unit SUBCUT Q8H [facility] Last Admin: 01/04/22 08:22 Dose: 5,000 unit Documented By: NINA Hydralazine HCl (Hydralazine Hcl 25 Mg Tablet) 25 mg PO BID [facility]; Protocol Last Admin: 01/04/22 08:20 Dose: 25 mg Documented By: NINA Sodium Chloride (Ns) 1,000 mls @ 100 mls/hr IVCONT .Q10H [facility] Last Admin: 01/04/22 06:13 Dose: 100 mls/hr Documented By: JULIA Cefazolin Sodium/Dextrose (Ancef) 2 gm in 50 mls @ 100 mls/hr IV Q12H [facility] Last Infusion: 01/04/22 09:02 Dose: 0 mls/hr Documented By: NALLELY Insulin Glargine (Insulin Glargine,Hum.Rec.Anlog 100 Unit/Ml 10 Ml Vial) 17 unit SUBCUT BEDTIME [facility] Last Admin: 01/03/22 21:14 Dose: 17 unit Documented By: JULIA Losartan Potassium (Losartan Potassium 50 Mg Tablet) 50 mg PO DAILY [facility]; Protocol Last Admin: 01/04/22 08:21 Dose: 50 mg Documented By: NINA Metoprolol Succinate (Metoprolol Succinate Er 100 Mg Tab.Er.24h) 100 mg PO DAILY [facility]; Protocol Last Admin: 01/04/22 08:20 Dose: 100 mg Documented By: NINA Morphine Sulfate (Morphine Sulfate 4 Mg/Ml Cartridge) 4 mg IVPUSH Q2H PRN; Protocol PRN Reason: Pain, Severe (Pain Scale 7-10) Oxycodone HCl (Oxycodone Hcl Immed Release 5 Mg Tablet) 5 mg PO Q4H PRN PRN Reason: Pain, Moderate (Pain Scale 4-6 Last Admin: 01/03/22 21:13 Dose: 5 mg Documented By: JULIA Sertraline HCl (Sertraline Hcl 50 Mg Tablet) 50 mg PO DAILY [facility] Last Admin: 01/04/22 08:22 Dose: 50 mg Documented By: NINA Sitagliptin Phosphate (Sitagliptin Phosphate 100 Mg Tablet) 100 mg PO DAILY [facility] Last Admin: 01/04/22 08:21 Dose: 100 mg Documented By: NINA Tamsulosin HCl (Tamsulosin Hcl 0.4 Mg Capsule) 0.4 mg PO BEDTIME [facility] Last Admin: 01/03/22 21:13 Dose: 0.4 mg Documented By: JULIA Labs CBC & Chem 7: 01/03/22 06:25 01/03/22 06:25 Labs: Laboratory Results - last 24 hr 01/03/22 01/03/22 01/04/22 15:45 20:35 01:25 POC Glucose 202 H 141 H 50 L* 01/04/22 01/04/22 02:06 07:12 POC Glucose 158 H 139 H Assessment and Plan (1) HTN (hypertension): Status: Acute (2) Preoperative cardiovascular examination: Status: Acute (3) PAD (peripheral artery disease): Status: Acute Plan 66 year old with DM, HTN, CKD3, HLD all controlled with meds peripharal vascular/arterial disease, he has prior hitory of metatarsal amputation. He underwent Preoperative diagnosis with finding of? Atherosclerosis of left lower extremity with nonhealing ulcer. Today he had 1. Ultrasound-guided right common femoral access 2. Aortogram with left lower extremity runoff. His pain is now better. BP is high. Has no SOB, no chest pain 1/PAD/PVD-management per vascular s/p aortogram with left lower ext runoff, plan for endaterectomy on Saturday -stress being completed today to assesss surgical risk 2/ Diabetes--continue glipizide, lantus for trulicity, SSI and hold Metformin d/t renal failure, diabetic diet 3/HTN--continue losartan, hydralazine, lasix, norvasc if perisitent high then increase norvasc to 10 4/HLD-continue statin 5/ I don't think patient has cellulitis of the left foot but empiric antibiotic is reasonable. 6/CKD 3 is stable. Heparin for DVT prophylaxis Quality Stroke Does the patient have a stroke diagnosis?: No VTE Prior VTE?: No VTE Risk Level:: Surgical - moderate VTE Device Contraindication: Procedure Contraindicated VTE Drug Contraindication: N/A - Med Ordered
--- NOTE | 2022-01-04 12:30 | PC.NURSE ---
Patient returned from stress test to floor at this time
[2022-01-04 13:12] LABS: Glucose, Whole Blood 147 mg/dL (60-115)
[2022-01-04] MEDS: oxyCODONE HCl Immed Release 5 MG TABLET PO ×2 (13:23→20:10)
--- NOTE | 2022-01-04 13:48 | P.PNVS_ITS ---
Subjective Subjective Date of Service: 01/04/22 Patient reports: no new complaints and feels better Interval history: Very pleasant 66-year-old gentleman for follow-up regarding left foot wound. He has undergone diagnostic angiogram and has left common femoral artery disease. He was admitted due to the progression of his foot disease and development of ulcerations. He has undergone stress testing and is now for routine hospital follow-up. He was seen in conjunction with the hospitalist team Physical Exam Vital Signs: Vital Signs: Last Vital Signs Temp 97.0 F 01/04/22 12:50 Pulse 70 01/04/22 12:52 Resp 16 01/04/22 12:50 BP 174/76 H 01/04/22 12:52 Pulse Ox 98 01/04/22 12:50 O2 Del Method 01/04/22 12:50 BMI result Body Mass Index 28.8 Const: General: cooperative, healthy appearing and comfortable Orientation/consciousness: oriented to person, oriented to place and oriented to time HEENT: Head: Yes normal to inspection Neck: Neck: Yes normal visual inspection Carotids: no bruits Chest: Chest palpation & inspection: normal inspection of the chest Resp: Effort & Inspection: normal respiratory effort and able to speak in complete sentences Auscultation: clear to auscultation bilaterally, no cr ackles, no rales, no rhonchi and no wheezes Cardio: Rate: regular rate Rhythm: regular rhythm Heart sounds: S1 normal heart sound present and S2 normal heart sound present Bruits: no carotid bruits Peripheral pulses: Peripheral pulses 2+ throughout GI: Inspection: Yes normal to inspection Skin: Wounds: wounds noted (Left foot great and 4th toe) Hair: normal Neuro: General: oriented to person, oriented to place and oriented to time Cranial nerves: Yes CN's II-XII intact bilaterally and Yes Normal hearing present Cognition (Neuro): normal cognition Motor exam (neuro): 5/5 motor strength present throughout Extrem: Other: venous exam: No significant superficial varicosities or spider telangiectas ias, minimal edema General: No clubbing, No cyanosis and No edema Psych: Appearance: grossly normal Mental Status: mental status grossly normal Speech and movement: Normal speech and movement present Progress Note: A&P Assessment and plan (1) PAD (peripheral artery disease): Status: Acute Assessment and Plan: In short patient has nonhealing ulcer of the left foot. Will plan for left femoral endarterectomy. Cardiac risk stratification appreciated. Will plan to schedule as soon as possible. Thank you for allowing us to assist in his care. If there are questions or concerns please do not hesitate to contact us Time Spent With Patient Time: Total time spent is greater than 50% in coordination of care (as documented) at patient's floor/unit and/or counseling patient: Procedures Date of Service Date of Service: 01/04/22 Quality Stroke Does the patient have a stroke diagnosis?: No VTE Prior VTE?: No VTE Risk Level:: Surgical - moderate VTE Device Contraindication: Procedure Contraindicated VTE Drug Contraindication: N/A - Med Ordered
[2022-01-04] MEDS: hydrALAZINE HCl 20 MG/ML VIAL 10 MG IVPUSH (17:24)
--- NOTE | 2022-01-04 18:45 | PC.NURSE ---
Report given to JOSE Hurtado assuming care of patient at this time.
[2022-01-04] MEDS: amLODIPine Besylate 5 MG TABLET PO (20:10)
[2022-01-04] MEDS: Tamsulosin HCL 0.4 MG CAPSULE PO (20:10)
[2022-01-04] MEDS: hydrALAZINE HCl 50 MG TABLET PO (20:10)
[2022-01-04 21:57] LABS: Glucose, Whole Blood 128 mg/dL (60-115)
[2022-01-04] MEDS: Insulin Glargine,Hum.rec.anlog 100 UNIT/ML 10 ML VIAL 8 UNIT SUBCUT (22:46)
[2022-01-04] MEDS: Morphine Sulfate 4 MG/ML CARTRIDGE IVPUSH (23:20)
[2022-01-05] MEDS: Heparin Sodium,Porcine 5,000 UNIT/ML VIAL 5000 UNIT SUBCUT ×2 (01:23→10:46)
[2022-01-05] MEDS: oxyCODONE HCl Immed Release 5 MG TABLET PO ×2 (03:22→06:23)
[2022-01-05 03:31] VITALS: BP 162/78; PULSE 64; RESP 18; TEMP 36.8; O2SAT 97
[2022-01-05 07:18] VITALS: BP 188/92; PULSE 67; RESP 20; TEMP 36.2; O2SAT 98
[2022-01-05] MEDS: glipiZIDE 10 MG TABLET 20 MG PO ×2 (07:25→21:28)
[2022-01-05] MEDS: Atorvastatin Calcium 80 MG TABLET PO (07:25)
[2022-01-05] MEDS: Furosemide 40 MG TABLET PO (07:25)
[2022-01-05] MEDS: ceFAZolin Sodium/Dextrose,Iso 2 GM/50 ML PIGGYBACK IV ×2 (07:26→21:29)
[2022-01-05] MEDS: SITagliptin Phosphate 100 MG TABLET PO (07:26)
[2022-01-05] MEDS: Metoprolol Succinate ER 100 MG TAB.ER.24H PO (07:26)
[2022-01-05] MEDS: hydrALAZINE HCl 50 MG TABLET PO ×2 (07:26→21:28)
[2022-01-05] MEDS: Losartan Potassium 50 MG TABLET PO (07:26)
[2022-01-05] MEDS: Sertraline HCL 50 MG TABLET PO (07:26)
[2022-01-05 07:35] LABS: Glucose, Whole Blood 67 mg/dL (60-115)
[2022-01-05 09:58] VITALS: BP 161/72; PULSE 65
--- NOTE | 2022-01-05 09:59 | PM.PNCARD ---
Subjective Subjective Date of Service: 01/05/22 Principal diagnosis: PVD, preop Left femoral endarterectomy Interval history: Patient denies any chest pain. Stress test was within normal limits. His blood pressure remains uncontrolled. He says he still has pain in his left foot. Denies any heart failure symptoms Review of Systems Review of Systems Yes all other systems are reviewed and are negative Physical Exam Vital Signs: Last Vital Signs Temp 97.1 F 01/05/22 07:18 Pulse 65 01/05/22 09:58 Resp 20 01/05/22 07:18 BP 161/72 H 01/05/22 09:58 Pulse Ox 98 01/05/22 07:18 O2 Del Method 01/05/22 07:18 BMI result Body Mass Index 28.8 Const General: cooperative, comfortable and no acute distress Orientation/consciousness: patient oriented x3 Neck Neck: Yes normal visual inspection Resp Effort & Inspection: normal respiratory effort Auscultation: clear to auscultation bilaterally, no crackles, no rales, no rhonchi and no wheezes Cardio Rate: regular rate Rhythm: regular rhythm Heart sounds: S1 normal heart sound present, S2 normal heart sound present, no murmurs and no rubs Neuro General: patient oriented x3 Extrem Other: Right transmetatarsal amp. Left toes with ulcerations noted. Legs warm to touch without significant edema. Psych Appearance: grossly normal Mental Status: mental status grossly normal Speech and movement: Normal speech and movement present Objective Labs and Meds Result diagrams: 01/03/22 06:25 01/03/22 06:25 Lab results: Laboratory Results - last 24 hr 01/04/22 01/04/22 01/05/22 13:07 21:54 07:20 POC Glucose 147 H 128 H 67 Imaging Radiologist's impression: Impressions Myocardial Perfusion Scan Nuc Med 01/04/22 12:30 Impression: 1. Myocardial perfusion imaging study shows normal myocardial perfusion 2. Gated LVEF is 57% 3. Transient ischemic dilatation not present EKG is nondiagnostic for ischemia Progress Note: A&P Assessment and plan (1) HTN (hypertension): Status: Acute Assessment and Plan: As discussed yesterday patient optimized to undergo surgery from cardiac perspective with better blood pressure control. Needs further evaluation for uncontrolled blood pressure multiple antihypertensive. Would strongly suggest him to undergo renal duplex today. Also increase amlodipine to 5 mg p.o. b.i.d.. Continue other medications. Continue to further uptitrate medications as needed. Target blood pressure systolic less than 150 prior to surgery. Postoperatively should be monitored arm see. Will continue to follow-up. Time Spent With Patient Time: Total time spent is greater than 50% in coordination of care (as documented) at patient's floor/unit and/or counseling patient: Progress Note: Quality Stroke Does the patient have a stroke diagnosis?: No Procedures Date of Service Date of Service: 01/05/22
[2022-01-05 10:00] LABS: Glucose, Whole Blood 267 mg/dL (60-115)
--- NOTE | 2022-01-05 10:33 | HO.PM.IMPN ---
Subjective Subjective Date of Service: 01/05/22 Interval History: seen inf/fur for HTN, diabetes, PAD interval history: little pain in the foot, BP still high Review of Systems no fever little pain int the foot Physical Exam Vital Signs: Vital Signs: Last Vital Signs Temp 97.1 F 01/05/22 07:18 Pulse 65 01/05/22 09:58 Resp 20 01/05/22 07:18 BP 161/72 H 01/05/22 09:58 Pulse Ox 98 01/05/22 07:18 O2 Del Method 01/05/22 07:18 BMI result Body Mass Index 28.8 Const: Other: General: AO X 3, no acute distress Resp: CTA bilateral CVS: S1,S2,RRR GI: +BS, NT, no distention Skin: No ext: foot is warn, pulse presetn but faint Neuro: motor grossly intact Psych: appropriate affect Objective Data Active Medications Acetaminophen (Acetaminophen 325 Mg Tablet) 650 mg PO Q6H PRN PRN Reason: Pain, Mild (Pain Scale 1-3) Last Admin: 01/04/22 08:33 Dose: 650 mg Documented By: NINA Amlodipine Besylate (Amlodipine Besylate 5 Mg Tablet) 5 mg PO BEDTIME [facility]; Protocol Last Admin: 01/04/22 20:10 Dose: 5 mg Documented By: LATIA Atorvastatin Calcium (Atorvastatin Calcium 80 Mg Tablet) 80 mg PO DAILY [facility] Last Admin: 01/05/22 07:25 Dose: 80 mg Documented By: MITCH Fluticasone Propionate (Fluticasone Propionate Nasal 16 Gm [place]) 2 spray NOSTRIL-B DAILY PRN PRN Reason: Nasal Congestion Furosemide (Furosemide 40 Mg Tablet) 40 mg PO DAILY [facility]; Protocol Last Admin: 01/05/22 07:25 Dose: 40 mg Documented By: MITCH Glipizide (Glipizide 10 Mg Tablet) 20 mg PO BID [facility] Last Admin: 01/05/22 07:25 Dose: 20 mg Documented By: MITCH Heparin Sodium (Porcine) (Heparin Sodium,Porcine 5,000 Unit/Ml Vial) 5,000 unit SUBCUT Q8H [facility] Last Admin: 01/05/22 01:23 Dose: 5,000 unit Documented By: LATIA Hydralazine HCl (Hydralazine Hcl 50 Mg Tablet) 50 mg PO BID [facility]; Protocol Last Admin: 01/05/22 07:26 Dose: 50 mg Documented By: MITCH Hydralazine HCl (Hydralazine Hcl 20 Mg/Ml Vial) 10 mg IVPUSH Q8H PRN; Protocol PRN Reason: SBP >190 Last Admin: 01/04/22 17:24 Dose: 10 mg Documented By: NANI-RIVKYLEIGH Cefazolin Sodium/Dextrose (Ancef) 2 gm in 50 mls @ 100 mls/hr IV Q12H [facility] Last Infusion: 01/05/22 07:59 Dose: 0 mls/hr Documented By: MITCH Insulin Glargine (Insulin Glargine,Hum.Rec.Anlog 100 Unit/Ml 10 Ml Vial) 17 unit SUBCUT BEDTIME [facility] Last Admin: 01/04/22 22:47 Dose: Not Given Documented By: LATIA Non-Admin Reason: Previously Administered Losartan Potassium (Losartan Potassium 50 Mg Tablet) 50 mg PO DAILY [facility]; Protocol Last Admin: 01/05/22 07:26 Dose: 50 mg Documented By: MITCH Metoprolol Succinate (Metoprolol Succinate Er 100 Mg Tab.Er.24h) 100 mg PO DAILY [facility]; Protocol Last Admin: 01/05/22 07:26 Dose: 100 mg Documented By: MITCH Morphine Sulfate (Morphine Sulfate 4 Mg/Ml Cartridge) 4 mg IVPUSH Q2H PRN; Protocol PRN Reason: Pain, Severe (Pain Scale 7-10) Last Admin: 01/04/22 23:20 Dose: 4 mg Documented By: LATIA Oxycodone HCl (Oxycodone Hcl Immed Release 5 Mg Tablet) 5 mg PO Q4H PRN PRN Reason: Pain, Moderate (Pain Scale 4-6 Last Admin: 01/05/22 06:23 Dose: 5 mg Documented By: ZULEMA Sertraline HCl (Sertraline Hcl 50 Mg Tablet) 50 mg PO DAILY [facility] Last Admin: 01/05/22 07:26 Dose: 50 mg Documented By: MITCH Sitagliptin Phosphate (Sitagliptin Phosphate 100 Mg Tablet) 100 mg PO DAILY [facility] Last Admin: 01/05/22 07:26 Dose: 100 mg Documented By: MITCH Tamsulosin HCl (Tamsulosin Hcl 0.4 Mg Capsule) 0.4 mg PO BEDTIME [facility] Last Admin: 01/04/22 20:10 Dose: 0.4 mg Documented By: LATIA Labs CBC & Chem 7: 01/03/22 06:25 01/03/22 06:25 Labs: Laboratory Results - last 24 hr 01/04/22 01/04/22 01/05/22 13:07 21:54 07:20 POC Glucose 147 H 128 H 67 01/05/22 09:55 POC Glucose 267 H Assessment and Plan (1) HTN (hypertension): Status: Acute (2) Preoperative cardiovascular examination: Status: Acute (3) PAD (peripheral artery disease): Status: Acute Plan 66 year old with DM, HTN, CKD3, HLD all controlled with meds peripharal vascular/arterial disease, he has prior hitory of metatarsal amputation. He underwent Preoperative diagnosis with finding of? Atherosclerosis of left lower extremity with nonhealing ulcer. Today he had 1. Ultrasound-guided right common femoral access 2. Aortogram with left lower extremity runoff. His pain is now better. BP is high. Has no SOB, no chest pain 1/PAD/PVD-management per vascular s/p aortogram with left lower ext runoff, plan for endaterectomy on Saturday -stress being completed today to assesss surgical risk 2/ Diabetes--continue glipizide, lantus for trulicity, SSI and hold Metformin d/t renal failure, diabetic diet 3/HTN--continue losartan, hydralazine, lasix, norvasc if perisitent high then increase norvasc to 5 bid, adding Nitrop paste 0.5 qid, gaol of SBP 150 4/HLD-continue statin 5/ I don't think patient has cellulitis of the left foot but empiric antibiotic is reasonable. 6/CKD 3 is stable. Heparin for DVT prophylaxis Quality Stroke Does the patient have a stroke diagnosis?: No VTE Prior VTE?: No VTE Risk Level:: Surgical - moderate VTE Device Contraindication: Procedure Contraindicated VTE Drug Contraindication: N/A - Med Ordered
[2022-01-05 10:58] VITALS: BP 175/79; PULSE 77; RESP 20; TEMP 36.1; O2SAT 97
[2022-01-05 11:10] LABS: Glucose, Whole Blood 246 mg/dL (60-115)
--- NOTE | 2022-01-05 11:10 | P.PNVS_ITS ---
Subjective Subjective Date of Service: 01/05/22 Patient reports: no new complaints and feels better Interval history: 66-year-old gentleman with nonhealing left lower extremity ulcers. He has undergone diagnostic angiogram. He was subsequently admitted due to the progression of his left foot. He is currently being worked up by the hospitalists and Cardiology team. He is waiting operative intervention. No events overnight. Physical Exam Vital Signs: Vital Signs: Last Vital Signs Temp 96.9 F 01/05/22 10:58 Pulse 77 01/05/22 10:58 Resp 20 01/05/22 10:58 BP 175/79 H 01/05/22 10:58 Pulse Ox 97 01/05/22 10:58 O2 Del Method 01/05/22 10:58 BMI result Body Mass Index 28.8 Const: General: cooperative, healthy appearing and comfortable Orientation/consciousness: oriented to person, oriented to place and oriented to time HEENT: Head: Yes normal to inspection Neck: Neck: Yes normal visual inspection Carotids: no bruits Chest: Chest palpation & inspection: normal inspection of the chest Resp: Effort & Inspection: normal respiratory effort and able to speak in complete sentences Auscultation: clear to auscultation bilaterally, no crackles, no rales, no rhonchi and no wheezes Cardio: Rate: regular rate Rhythm: regular rhythm Heart sounds: S1 normal heart sound present and S2 normal heart sound present Bruits: no carotid bruits Peripheral pulses: dorsalis pedis present (Bilateral DP signals) GI: Inspection: Yes normal to inspection Skin: Wounds: wounds noted (Left foot 1st and 4th toe) Hair: normal Neuro: General: oriented to person, oriented to place and oriented to time Cranial nerves: Yes CN's II-XII intact bilaterally and Yes Normal hearing present Cognition (Neuro): normal cognition Motor exam (neuro): 5/5 motor strength present throughout Extrem: Other: venous exam: No significant superficial varicosities or spider telangiectasias, minimal edema General: No clubbing, No cyanosis and No edema Psych: Appearance: grossly normal Mental Status: mental status grossly no rmal Speech and movement: Normal speech and movement present Progress Note: A&P Assessment and plan (1) PAD (peripheral artery disease): Status: Acute Plan In short patient has nonhealing left foot ulcer. He will require left femoral endarterectomy. Will plan for renal artery ultrasound and better blood pressure control. Case was discussed with the hospitalist team who will adjust his blood pressure medication. I ordered a renal artery ultrasound. Once optimized will anticipate surgery early next week. Time Spent With Patient Time: Total time spent is greater than 50% in coordination of care (as documented) at patient's floor/unit and/or counseling patient: Procedures Date of Service Date of Service: 01/05/22 Quality Stroke Does the patient have a stroke diagnosis?: No VTE Prior VTE?: No VTE Risk Level:: Surgical - moderate VTE Device Contraindication: Procedure Contraindicated VTE Drug Contraindication: N/A - Med Ordered
[2022-01-05] MEDS: Nitroglycerin 2 % Oint 1 GM Packet 0.5 INCH TRANSDERMA ×2 (14:08→21:26)
--- NOTE | 2022-01-05 14:15 | MHC.CM.PN ---
IMM DELIVERED CM MET WITH PATIENT, SPEAKS SOME [place] CITIZEN BUT PRIMARILY SPEAKS [place]. LIVES ALONE IN AN APARTMENT . NO SERVICES BUT HAS A CANE AND USES A WHEELCHAIR OCCASIONALLY. STATES HE HAS A HCP, CM REQUESTED A COPY BE BROUGHT IN. COVID VAX X 3. PCP ANGE MADSEN AT [facility] DP: PT ANTICIPATES HOME , NO SERVICES BUT IS OPEN TO [facility] IF RECOMMENDED. NO PREFERENCE. REFERRAL SENT TO [facility]. DAUGHTER WILL TRANSPORT HOME ON DC. CM WILL FOLLOW FOR DC PLAN.
[2022-01-05 15:46] VITALS: BP 164/74; PULSE 66; RESP 17; TEMP 35.9; O2SAT 96
[2022-01-05 16:42] LABS: Glucose, Whole Blood 92 mg/dL (60-115)
--- NOTE | 2022-01-05 19:20 | PC.NURSE ---
Pt returned from renal ultra sound. He is A/O X4, c/0 of 10/10 pain in his right great toe. Pt requested for dinner, well tolerated.
[2022-01-05 20:00] VITALS: BP 174/79; PULSE 69; RESP 18; TEMP 36.2; O2SAT 98
[2022-01-05 21:24] LABS: Glucose, Whole Blood 285 mg/dL (60-115)
[2022-01-05] MEDS: Tamsulosin HCL 0.4 MG CAPSULE PO (21:27)
[2022-01-05] MEDS: amLODIPine Besylate 5 MG TABLET PO (21:28)
[2022-01-05] MEDS: Insulin Glargine,Hum.rec.anlog 100 UNIT/ML 10 ML VIAL 17 UNIT SUBCUT (21:29)
[2022-01-06] VITALS (8 sets, daily range): BP systolic 140–160; BP diastolic 65–90; PULSE 64–71; RESP 16–18; TEMP 35.5–36.3; O2SAT 95–97
[2022-01-06] MEDS: oxyCODONE HCl Immed Release 5 MG TABLET PO (00:46)
[2022-01-06] MEDS: Heparin Sodium,Porcine 5,000 UNIT/ML VIAL 5000 UNIT SUBCUT ×3 (01:50→17:10)
[2022-01-06] MEDS: Nitroglycerin 2 % Oint 1 GM Packet 0.5 INCH TRANSDERMA ×4 (01:50→20:46)
[2022-01-06 07:28] LABS: Glucose, Whole Blood 61 mg/dL (60-115)
[2022-01-06] MEDS: glipiZIDE 10 MG TABLET 20 MG PO ×2 (08:55→20:47)
[2022-01-06] MEDS: Metoprolol Succinate ER 100 MG TAB.ER.24H PO (08:55)
[2022-01-06] MEDS: Furosemide 40 MG TABLET PO (08:56)
[2022-01-06] MEDS: hydrALAZINE HCl 50 MG TABLET PO (08:56)
[2022-01-06] MEDS: Sertraline HCL 50 MG TABLET PO (08:56)
[2022-01-06] MEDS: amLODIPine Besylate 5 MG TABLET PO ×2 (08:58→20:47)
[2022-01-06] MEDS: Atorvastatin Calcium 80 MG TABLET PO (08:58)
[2022-01-06] MEDS: SITagliptin Phosphate 100 MG TABLET PO (08:58)
[2022-01-06] MEDS: Losartan Potassium 50 MG TABLET PO (08:58)
[2022-01-06] MEDS: ceFAZolin Sodium/Dextrose,Iso 2 GM/50 ML PIGGYBACK IV ×2 (09:08→20:46)
--- NOTE | 2022-01-06 09:41 | P.PNIM_ITS ---
Subjective Subjective Date of Service: 01/06/22 Interval History: seen inf/fur for HTN, diabetes, PAD interval history: little pain in the foot, BP still high Review of Systems no fever little pain int the foot Physical Exam Vital Signs: Vital Signs: Last Vital Signs Temp 96 F L 01/06/22 07:17 Pulse 68 01/06/22 08:56 Resp 17 01/06/22 07:17 BP 150/90 H 01/06/22 08:56 Pulse Ox 97 01/06/22 07:17 O2 Del Method 01/06/22 07:17 BMI result Body Mass Index 28.8 Const: Other: General: AO X 3, no acute distress Resp: CTA bilateral CVS: S1,S2,RRR GI: +BS, NT, no distention Skin: No ext: foot is warn, pulse presetn but faint Neuro: motor grossly intact Psych: appropriate affect Objective Data Active Medications Acetaminophen (Acetaminophen 325 Mg Tablet) 650 mg PO Q6H PRN PRN Reason: Pain, Mild (Pain Scale 1-3) Last Admin: 01/04/22 08:33 Dose: 650 mg Documented By: NINA Amlodipine Besylate (Amlodipine Besylate 5 Mg Tablet) 5 mg PO BID [facility]; Protocol Last Admin: 01/06/22 08:58 Dose: 5 mg Documented By: BULMARO Atorvastatin Calcium (Atorvastatin Calcium 80 Mg Tablet) 80 mg PO DAILY [facility] Last Admin: 01/06/22 08:58 Dose: 80 mg Documented By: BULMARO Fluticasone Propionate (Fluticasone Propionate Nasal 16 Gm [place]) 2 spray NOSTRIL-B DAILY PRN PRN Reason: Nasal Congestion Furosemide (Furosemide 40 Mg Tablet) 40 mg PO DAILY [facility]; Protocol Last Admin: 01/06/22 08:56 Dose: 40 mg Documented By: BULMARO Glipizide (Glipizide 10 Mg Tablet) 20 mg PO BID [facility] Last Admin: 01/06/22 08:55 Dose: 20 mg Documented By: BULMARO Heparin Sodium (Porcine) (Heparin Sodium,Porcine 5,000 Unit/Ml Vial) 5,000 unit SUBCUT Q8H [facility] Last Admin: 01/06/22 09:17 Dose: 5,000 unit Documented By: BULMARO Hydralazine HCl (Hydralazine Hcl 50 Mg Tablet) 50 mg PO BID [facility]; Protocol Last Admin: 01/06/22 08:56 Dose: 50 mg Documented By: BULMARO Hydralazine HCl (Hydralazine Hcl 20 Mg/Ml Vial) 10 mg IVPUSH Q8H PRN; Protocol PRN Reason: SBP >190 Last Admin: 01/04/22 17:24 Dose: 10 mg Documented By: MINERVA Cefazolin Sodium/Dextrose (Ancef) 2 gm in 50 mls @ 100 mls/hr IV Q12H [facility] Last Admin: 01/06/22 09:08 Dose: 100 mls/hr Documented By: BULMARO Insulin Glargine (Insulin Glargine,Hum.Rec.Anlog 100 Unit/Ml 10 Ml Vial) 17 unit SUBCUT BEDTIME [facility] Last Admin: 01/05/22 21:29 Dose: 17 unit Documented By: SEGUNDO Losartan Potassium (Losartan Potassium 50 Mg Tablet) 50 mg PO DAILY [facility]; Protocol Last Admin: 01/06/22 08:58 Dose: 50 mg Documented By: BULMARO Metoprolol Succinate (Metoprolol Succinate Er 100 Mg Tab.Er.24h) 100 mg PO DAILY [facility]; Protocol Last Admin: 01/06/22 08:55 Dose: 100 mg Documented By: BULMARO Morphine Sulfate (Morphine Sulfate 4 Mg/Ml Cartridge) 4 mg IVPUSH Q2H PRN; Protocol PRN Reason: Pain, Severe (Pain Scale 7-10) Last Admin: 01/04/22 23:20 Dose: 4 mg Documented By: LATIA Nitroglycerin (Nitroglycerin 2 % Oint 1 Gm Packet) 0.5 inch TRANSDERMA Q6H [facility] Last Admin: 01/06/22 08:56 Dose: 0.5 inch Documented By: BULMARO Oxycodone HCl (Oxycodone Hcl Immed Release 5 Mg Tablet) 5 mg PO Q4H PRN PRN Reason: Pain, Moderate (Pain Scale 4-6 Last Admin: 01/06/22 00:46 Dose: 5 mg Documented By: SEGUNDO Sertraline HCl (Sertraline Hcl 50 Mg Tablet) 50 mg PO DAILY [facility] Last Admin: 01/06/22 08:56 Dose: 50 mg Documented By: BULMARO Sitagliptin Phosphate (Sitagliptin Phosphate 100 Mg Tablet) 100 mg PO DAILY [facility] Last Admin: 01/06/22 08:58 Dose: 100 mg Documented By: BULMARO Tamsulosin HCl (Tamsulosin Hcl 0.4 Mg Capsule) 0.4 mg PO BEDTIME [facility] Last Admin: 01/05/22 21:27 Dose: 0.4 mg Documented By: SEGUNDO Labs CBC & Chem 7: 01/03/22 06:25 01/03/22 06:25 Labs: Laboratory Results - last 24 hr 01/05/22 01/05/22 01/05/22 09:55 10:55 16:33 POC Glucose 267 H 246 H 92 01/05/22 01/06/22 21:18 07:24 POC Glucose 285 H 61 Assessment and Plan (1) HTN (hypertension): Status: Acute (2) Preoperative cardiovascular examination: Status: Acute (3) PAD (peripheral artery disease): Status: Acute Plan 66 year old with DM, HTN, CKD3, HLD all controlled with meds peripharal vascular/arterial disease, he has prior hitory of metatarsal amputation. He underwent Preoperative diagnosis with finding of? Atherosclerosis of left lower extremity with nonhealing ulcer. Today he had 1. Ultrasound-guided right common femoral access 2. Aortogram with left lower extremity runoff. His pain is now better. BP is high. Has no SOB, no chest pain 1/PAD/PVD with non heling left foot ulcer-management per vascular s/p aortogram with left lower ext runoff, plan for endaterectomy on Saturday -maximize BP control 2/ Diabetes--continue glipizide, lantus for trulicity, SSI and hold Metformin d/t renal failure, diabetic diet 3/HTN--continue losartan, hydralazine, lasix, norvasc if perisitent high then increase norvasc to 5 bid, adding Nitrop paste 0.5 qid, gaol of SBP 150 4/HLD-continue statin 5/ I don't think patient has cellulitis of the left foot but empiric antibiotic is reasonable. 6/CKD 3 is stable. Heparin for DVT prophylaxis Quality Stroke Does the patient have a stroke diagnosis?: No VTE Prior VTE?: No VTE Risk Level:: Surgical - moderate VTE Device Contraindication: Procedure Contraindicated VTE Drug Contraindication: N/A - Med Ordered
--- NOTE | 2022-01-06 11:01 | P.PNCA_ITS ---
Subjective Subjective Date of Service: 01/06/22 Principal diagnosis: PVD, preop Left femoral endarterectomy Interval history: Patient denies any cardiac symptoms. Blood pressure is better but still not optimal. Renal duplex results are not available. His hydralazine was increased. Also amlodipine was increased yesterday. Review of Systems Review of Systems Yes all other systems are reviewed and are negative Physical Exam Vital Signs: Last Vital Signs Temp 96 F L 01/06/22 07:17 Pulse 68 01/06/22 08:56 Resp 17 01/06/22 07:17 BP 150/90 H 01/06/22 08:56 Pulse Ox 97 01/06/22 07:17 O2 Del Method 01/06/22 07:17 BMI result Body Mass Index 28.8 Const General: cooperative, comfortable and no acute distress Orientation/consciousness: patient oriented x3 Neck Neck: Yes normal visual inspection Resp Effort & Inspection: normal respiratory effort Auscultation: clear to auscultation bilaterally, no crackles, no rales, no r honchi and no wheezes Cardio Rate: regular rate Rhythm: regular rhythm Heart sounds: S1 normal heart sound present, S2 normal heart sound present, no murmurs and no rubs Neuro General: patient oriented x3 Extrem Other: Right transmetatarsal amp. Left toes with ulcerations noted. Legs warm to touch without significant edema. Psych Appearance: grossly normal Mental Status: mental status grossly normal Speech and movement: Normal speech and movement present Objective Labs and Meds Result diagrams: 01/03/22 06:25 01/03/22 06:25 Lab results: Laboratory Results - last 24 hr 01/05/22 01/05/22 01/05/22 10:55 16:33 21:18 POC Glucose 246 H 92 285 H 01/06/22 07:24 POC Glucose 61 Progress Note: A&P Assessment and plan (1) HTN (hypertension): Status: Acute Assessment and Plan: Hypertension better controlled but still needs better optimization. Renal duplex results not available, high likelihood of renal artery stenosis. Will need to evaluate for the same. Continue maximize hydralazine can switch to hydr alazine 100 mg b.i.d.. Continue amlodipine 5 mg b.i.d.. Can also maximize losartan if the blood pressure is not controlled to moderate 50 mg b.i.d.. Continue metoprolol therapy. Continue high-intensity statin therapy as well as aspirin therapy for severe peripheral vascular disease continue aggressive diabetes control. Will follow with you. Time Spent With Patient Time: Total time spent is greater than 50% in coordination of care (as documented) at patient's floor/unit and/or counseling patient: Progress Note: Quality Stroke Does the patient have a stroke diagnosis?: No Procedures Date of Service Date of Service: 01/06/22
[2022-01-06 11:16] LABS: Glucose, Whole Blood 188 mg/dL (60-115)
[2022-01-06] MEDS: Morphine Sulfate 4 MG/ML CARTRIDGE IVPUSH (14:23)
[2022-01-06 16:36] LABS: Glucose, Whole Blood 252 mg/dL (60-115)
[2022-01-06] MEDS: Insulin Lispro 100 UNIT/ML 3 ML VIAL SUBCUT ×2 (17:10→21:26)
--- NOTE | 2022-01-06 19:19 | HO.VASCPN ---
Subjective Subjective Date of Service: 01/06/22 Patient reports: no new complaints and feels better Interval history: Patient seen and examined. No significant events over the day. Reports he is doing fairly well. I would appears that his blood pressure is doing somewhat better. On anxious to undergo surgery. Fairly comfortable. Physical Exam Vital Signs: Vital Signs: Last Vital Signs Temp 97.1 F 01/06/22 16:12 Pulse 64 01/06/22 16:12 Resp 18 01/06/22 16:12 BP 142/67 H 01/06/22 16:12 Pulse Ox 96 01/06/22 16:12 O2 Del Method 01/06/22 16:12 BMI result Body Mass Index 28.8 Const: General: cooperative, healthy appearing and no acute distress Orientation/consciousness: oriented to person, oriented to place and oriented to time HEENT: Head: Yes normal to inspection Neck: Carotids: no bruits Chest: Chest palpation & inspection: normal inspection of the chest Resp: Effort & Inspection: normal respiratory effort and able to speak in complete sentences Auscultation: clear to auscultation bilaterally Cardio: Rate: regular rate Heart sounds: S1 normal heart sound present and S2 normal heart sound present Peripheral pulses: dorsalis pedis present ( bilateral DP signals) GI: Inspection: Yes normal to inspection Skin: Other: Left foot necrotic 1st and 4th toe some dry gangrene General skin exam: no rashes or lesions noted Wounds: no wounds Neuro: General: oriented to person, oriented to place, oriented to time and CN's II-XI intact bilaterally Extrem: General: Yes normal to inspection, Yes full ROM and Yes no clubbing, cyanosis or edema Psych: Appearance: grossly normal and well kempt Speech and movement: Normal speech and movement present Affect: normal affect Progress Note: A&P Assessment and plan (1) PAD (peripheral artery disease): Status: Acute Assessment and Plan: in short patient has nonhealing left foot ulcer with severe common femoral disease. Will need common femoral endarterectomy. His cardiac risk stratification completed. It appears his blood pressure is better controlled. He anticipate us surgery early next week. Patient had no additional concerns at the current time. Appreciate hospitalists input and assistance in this patients care. (2) HTN (hypertension): Status: Acute Assessment and Plan: Hypertension which appears to be better controlled. Renal artery ultrasound reviewed. I do believe this is an over estimation. He did have a diagnostic angiogram on 01/03/2022. Images were rereviewed. There appears to be no focal stenosis noted at and the angiogram. Would continue with medical management. Time Spent With Patient Time: Total time spent is greater than 50% in coordination of care (as documented) at patient's floor/unit and/or counseling patient: Procedures Date of Service Date of Service: 01/06/22 Quality Stroke Does the patient have a stroke diagnosis?: No VTE Prior VTE?: No VTE Risk Level:: Surgical - moderate VTE Device Contraindication: Procedure Contraindicated VTE Drug Contraindication: N/A - Med Ordered
--- NOTE | 2022-01-06 19:29 | HO.VASCPN ---
Subjective Subjective Date of Service: 01/06/22 Patient reports: no new complaints and feels better Interval history: Patient seen and examined. No significant events over the past day. Appears to be doing relatively well. Pain well controlled. Blood pressure appears well controlled as well. He is anxious to undergo surgery. Physical Exam Vital Signs: Vital Signs: Last Vital Signs Temp 97.1 F 01/06/22 16:12 Pulse 64 01/06/22 16:12 Resp 18 01/06/22 16:12 BP 142/67 H 01/06/22 16:12 Pulse Ox 96 01/06/22 16:12 O2 Del Method 01/06/22 16:12 BMI result Body Mass Index 28.8 Const: General: cooperative, healthy appearing and no acute distress Orientation/consciousness: oriented to person, oriented to place and oriented to time HEENT: Head: Yes normal to inspection Neck: Carotids: no bruits Chest: Chest palpation & inspection: normal inspection of the chest Resp: Effort & Inspection: normal respiratory effort and able to speak in complete sentences Auscultation: clear to auscultation bilaterally Cardio: Rate: regular rate Heart sounds: S1 normal heart sound present and S2 normal heart sound present Peripheral pulses: dorsalis pedis present ( Bilateral DP signals) GI: Inspection: Yes normal to inspection Skin: Other: left foot diet gangrene 1st in 4th toe General skin exam: no rashes or lesions noted Wounds: no wounds Neuro: General: oriented to person, oriented to place, oriented to time and CN's II-XI intact bilaterally Extrem: General: Yes normal to inspection, Yes full ROM and Yes no clubbing, cyanosis or edema Psych: Appearance: grossly normal and well kempt Speech and movement: Normal speech and movement present Affect: normal affect Progress Note: A&P Assessment and plan (1) PAD (peripheral artery disease): Status: Acute Assessment and Plan: patient appears to be doing relatively well from a peripheral vascular standpoint. Will plan for operative intervention early next week. He will require left femoral endarterectomy for nonhealing ulcers. This was Joshua discussed with the patient he is in agreement and is anxious to move forward. I appreciate the hospitalists input and care in this patient. (2) HTN (hypertension): Status: Acute Assessment and Plan: Hypertension appears to be better controlled. Appears to be doing relatively well with medical management. Renal artery ultrasound was reviewed and appears to be an over estimation. Images from angiogram dated 01/04/2020 to where I had shot a picture of the aortogram demonstrates excellent flow through bilateral renal arteries. Would continue with medical management. Time Spent With Patient Time: Total time spent is greater than 50% in coordination of care (as documented) at patient's floor/unit and/or counseling patient: Procedures Date of Service Date of Service: 01/06/22 Quality Stroke Does the patient have a stroke diagnosis?: No VTE Prior VTE?: No VTE Risk Level:: Surgical - moderate VTE Device Contraindication: Procedure Contraindicated VTE Drug Contraindication: N/A - Med Ordered
[2022-01-06] MEDS: Tamsulosin HCL 0.4 MG CAPSULE PO (20:47)
[2022-01-06] MEDS: hydrALAZINE HCl 50 MG TABLET 100 MG PO (20:47)
[2022-01-06 21:16] LABS: Glucose, Whole Blood 226 mg/dL (60-115)
[2022-01-06] MEDS: Insulin Glargine,Hum.rec.anlog 100 UNIT/ML 10 ML VIAL 17 UNIT SUBCUT (21:26)
[2022-01-07] VITALS (7 sets, daily range): BP systolic 134–173; BP diastolic 60–81; PULSE 65–73; RESP 17–18; TEMP 36.1–36.5; O2SAT 94–97
[2022-01-07] MEDS: Heparin Sodium,Porcine 5,000 UNIT/ML VIAL 5000 UNIT SUBCUT ×3 (01:59→17:31)
[2022-01-07] MEDS: Nitroglycerin 2 % Oint 1 GM Packet 0.5 INCH TRANSDERMA ×4 (02:00→19:40)
[2022-01-07] MEDS: Morphine Sulfate 4 MG/ML CARTRIDGE IVPUSH (05:33)
[2022-01-07 08:06] LABS: Glucose, Whole Blood 97 mg/dL (60-115)
[2022-01-07] MEDS: ceFAZolin Sodium/Dextrose,Iso 2 GM/50 ML PIGGYBACK IV ×2 (08:36→20:23)
--- NOTE | 2022-01-07 08:40 | P.PNIM_ITS ---
Subjective Subjective Date of Service: 01/07/22 Interval History: seen inf/fur for HTN, diabetes, PAD interval history: Pain is better Review of Systems no fever little pain int the foot Physical Exam Vital Signs: Vital Signs: Last Vital Signs Temp 97.7 F 01/07/22 03:54 Pulse 72 01/07/22 03:54 Resp 17 01/07/22 03:54 BP 134/65 01/07/22 03:54 Pulse Ox 96 01/07/22 03:54 O2 Del Method 01/07/22 03:54 BMI result Body Mass Index 28.8 Const: Other: General: AO X 3, no acute distress Resp: CTA bilateral CVS: S1,S2,RRR GI: +BS, NT, no distention Skin: No ext: foot is warn, pulse presetn but faint Neuro: motor grossly intact Psych: appropriate affect Objective Data Active Medications Acetaminophen (Acetaminophen 325 Mg Tablet) 650 mg PO Q6H PRN PRN Reason: Pain, Mild (Pain Scale 1-3) Last Admin: 01/04/22 08:33 Dose: 650 mg Documented By: NINA Amlodipine Besylate (Amlodipine Besylate 5 Mg Tablet) 5 mg PO BID [facility]; Protocol Last Admin: 01/06/22 20:47 Dose: 5 mg Documented By: STEPHANIE Atorvastatin Calcium (Atorvastatin Calcium 80 Mg Tablet) 80 mg PO DAILY [facility] Last Admin: 01/06/22 08:58 Dose: 80 mg Documented By: BULMARO Fluticasone Propionate (Fluticasone Propionate Nasal 16 Gm [place]) 2 spray NOSTRIL-B DAILY PRN PRN Reason: Nasal Congestion Furosemide (Furosemide 40 Mg Tablet) 40 mg PO DAILY [facility]; Protocol Last Admin: 01/06/22 08:56 Dose: 40 mg Documented By: BULMARO Glipizide (Glipizide 10 Mg Tablet) 20 mg PO BID [facility] Last Admin: 01/06/22 20:47 Dose: 20 mg Documented By: STEPHANIE Heparin Sodium (Porcine) (Heparin Sodium,Porcine 5,000 Unit/Ml Vial) 5,000 unit SUBCUT Q8H [facility] Last Admin: 01/07/22 01:59 Dose: 5,000 unit Documented By: STEPHANIE Hydralazine HCl (Hydralazine Hcl 20 Mg/Ml Vial) 10 mg IVPUSH Q8H PRN; Protocol PRN Reason: SBP >190 Last Admin: 01/04/22 17:24 Dose: 10 mg Documented By: MINERVA Hydralazine HCl (Hydralazine Hcl 50 Mg Tablet) 100 mg PO BID [facility]; Protocol Last Admin: 01/06/22 20:47 Dose: 100 mg Documented By: STEPHANIE Cefazolin Sodium/Dextrose (Ancef) 2 gm in 50 mls @ 100 mls/hr IV Q12H [facility] Last Infusion: 01/06/22 21:28 Dose: 0 mls/hr Documented By: STEPHANIE Insulin Glargine (Insulin Glargine,Hum.Rec.Anlog 100 Unit/Ml 10 Ml Vial) 17 unit SUBCUT BEDTIME [facility] Last Admin: 01/06/22 21:26 Dose: 17 unit Documented By: STEPHANIE Insulin Human Lispro (Insulin Lispro 100 Unit/Ml 3 Ml Vial) 0 unit SUBCUT QIDACHS [facility]; Protocol Last Admin: 01/07/22 08:10 Dose: Not Given Documented By: NAVNEET Non-Admin Reason: No Insulin Coverage Losartan Potassium (Losartan Potassium 50 Mg Tablet) 50 mg PO DAILY [facility]; Protocol Last Admin: 01/06/22 08:58 Dose: 50 mg Documented By: BULMARO Metoprolol Succinate (Metoprolol Succinate Er 100 Mg Tab.Er.24h) 100 mg PO DAILY [facility]; Protocol Last Admin: 01/06/22 08:55 Dose: 100 mg Documented By: BULMARO Morphine Sulfate (Morphine Sulfate 4 Mg/Ml Cartridge) 4 mg IVPUSH Q2H PRN; Protocol PRN Reason: Pain, Severe (Pain Scale 7-10) Last Admin: 01/07/22 05:33 Dose: 4 mg Documented By: STEPHANIE Nitroglycerin (Nitroglycerin 2 % Oint 1 Gm Packet) 0.5 inch TRANSDERMA Q6H [facility] Last Admin: 01/07/22 02:00 Dose: 0.5 inch Documented By: STEPHANIE Oxycodone HCl (Oxycodone Hcl Immed Release 5 Mg Tablet) 5 mg PO Q4H PRN PRN Reason: Pain, Moderate (Pain Scale 4-6 Last Admin: 01/06/22 00:46 Dose: 5 mg Documented By: HO.OZORALB Sertraline HCl (Sertraline Hcl 50 Mg Tablet) 50 mg PO DAILY [facility] Last Admin: 01/06/22 08:56 Dose: 50 mg Documented By: BULMARO Sitagliptin Phosphate (Sitagliptin Phosphate 100 Mg Tablet) 100 mg PO DAILY [facility] Last Admin: 01/06/22 08:58 Dose: 100 mg Documented By: BULMARO Tamsulosin HCl (Tamsulosin Hcl 0.4 Mg Capsule) 0.4 mg PO BEDTIME [facility] Last Admin: 01/06/22 20:47 Dose: 0.4 mg Documented By: STEPHANIE Labs CBC & Chem 7: 01/03/22 06:25 01/03/22 06:25 Labs: Laboratory Results - last 24 hr 01/06/22 01/06/22 01/06/22 11:05 16:15 21:06 POC Glucose 188 H 252 H 226 H 01/07/22 07:23 POC Glucose 97 Assessment and Plan (1) HTN (hypertension): Status: Acute (2) Preoperative cardiovascular examination: Status: Acute (3) PAD (peripheral artery disease): Status: Acute Plan 66 year old with DM, HTN, CKD3, HLD all controlled with meds peripharal vascular/arterial disease, he has prior hitory of metatarsal amputation. He underwent Preoperative diagnosis with finding of? Atherosclerosis of left lower extremity with nonhealing ulcer. Today he had 1. Ultrasound-guided right common femoral access 2. Aortogram with left lower extremity runoff. His pain is now better. BP is high. Has no SOB, no chest pain 1/PAD/PVD with non heling left foot ulcer-management per vascular s/p aortogram with left lower ext runoff, plan for endaterectomy on Saturday -maximize BP control 2/ Diabetes--continue glipizide, lantus for trulicity, SSI and hold Metformin d/t renal failure, diabetic diet 3/HTN--continue losartan, hydralazine 100 bid, lasix, norvasc if perisitent high then increase norvasc to 5 bid, adding Nitrop paste 0.5 qid, gaol of SBP 150 (BP now normal) 4/HLD-continue statin 5/ I don't think patient has cellulitis of the left foot but empiric antibiotic is reasonable. 6/CKD 3 is stable. At this point he's medically optimized for surgery, Stress stest on 01/04 was normal. Heparin for DVT prophylaxis Quality Stroke Does the patient have a stroke diagnosis?: No VTE Prior VTE?: No VTE Risk Level:: Surgical - moderate VTE Device Contraindication: Procedure Contraindicated VTE Drug Contraindication: N/A - Med Ordered
[2022-01-07] MEDS: Losartan Potassium 50 MG TABLET PO (08:41)
[2022-01-07] MEDS: hydrALAZINE HCl 50 MG TABLET 100 MG PO ×2 (08:41→20:22)
[2022-01-07] MEDS: SITagliptin Phosphate 100 MG TABLET PO (08:41)
[2022-01-07] MEDS: Atorvastatin Calcium 80 MG TABLET PO (08:41)
[2022-01-07] MEDS: amLODIPine Besylate 5 MG TABLET PO ×2 (08:41→20:22)
[2022-01-07] MEDS: Metoprolol Succinate ER 100 MG TAB.ER.24H PO (08:41)
[2022-01-07] MEDS: Furosemide 40 MG TABLET PO (08:41)
[2022-01-07] MEDS: Sertraline HCL 50 MG TABLET PO (08:41)
[2022-01-07] MEDS: glipiZIDE 10 MG TABLET 20 MG PO ×2 (08:42→20:22)
[2022-01-07 11:38] LABS: Glucose, Whole Blood 228 mg/dL (60-115)
[2022-01-07] MEDS: Insulin Lispro 100 UNIT/ML 3 ML VIAL SUBCUT ×3 (11:44→20:22)
--- NOTE | 2022-01-07 12:50 | PM.PNCARD ---
Subjective Subjective Date of Service: 01/07/22 Principal diagnosis: PVD, preop Left femoral endarterectomy Interval history: No cardiac symptoms to report. Patient complains of some pain in the left foot. Blood pressure still remains elevated. He is on multiple medications. Was started on nitro paste. Review of Systems Review of Systems Yes all other systems are reviewed and are negative Physical Exam Vital Signs: Last Vital Signs Temp 96.9 F 01/07/22 11:29 Pulse 65 01/07/22 11:29 Resp 17 01/07/22 11:29 BP 167/80 H 01/07/22 11:29 Pulse Ox 97 01/07/22 11:29 O2 Del Method 01/07/22 11:29 BMI result Body Mass Index 28.8 Const General: cooperative, comfortable and no acute distress Orientation/consciousness: patient oriented x3 Neck Neck: Yes normal visual inspection Resp Effort & Inspection: normal respiratory effort Auscultation: clear to auscultation bilaterally, no crackles, no rales, no rhonchi and no wheezes Cardio Rate: regular rate Rhythm: regular rhythm Heart sounds: S1 normal heart sound present, S2 normal heart sound present, no murmurs and no rubs Neuro General: patient oriented x3 Extrem Other: Right transmetatarsal amp. Left toes with ulcerations noted. Legs warm to touch without significant edema. Psych Appearance: grossly normal Mental Status: mental status grossly normal Speech and movement: Normal speech and movement present Objective Labs and Meds Result diagrams: 01/03/22 06:25 01/03/22 06:25 Lab results: Laboratory Results - last 24 hr 01/06/22 01/06/22 01/07/22 16:15 21:06 07:23 POC Glucose 252 H 226 H 97 01/07/22 11:17 POC Glucose 228 H Imaging Radiologist's impression: Impressions Renal Ultrasound 01/05/22 18:21 IMPRESSION: Normal-appearing kidneys. Increased peak systolic velocity in the right mid renal artery questionable for right renal artery stenosis. Normal peak systolic velocities in the left renal artery. Increased segmental renal artery resistive indices bilaterally. Progress Note: A&P Assessment and plan (1) HTN (hypertension): Status: Acute Assessment and Plan: Difficult control blood pressure multiple medications, could be related to pain but I highly suspect that he has underlying renal artery stenosis. Renal duplex results are still pending. Will continue medical management. Continue all medications. Can increase hydralazine to 100 mg t.i.d. and losartan to 50 mg b.i.d.. Continue nitro paste. Patient still remains optimized but his blood pressure is elevated increase risk to intermediate risk for surgery in the perioperative time. Please admit him to [facility] after surgery. Please follow-up with renal duplex study results. Will sign of the case, feel free to contact us. Time Spent With Patient Time: Total time spent is greater than 50% in coordination of care (as documented) at patient's floor/unit and/or counseling patient: Progress Note: Quality Stroke Does the patient have a stroke diagnosis?: No Procedures Date of Service Date of Service: 01/07/22
[2022-01-07] MEDS: oxyCODONE HCl Immed Release 5 MG TABLET PO ×2 (13:29→19:39)
[2022-01-07 16:26] LABS: Glucose, Whole Blood 204 mg/dL (60-115)
[2022-01-07 20:11] LABS: Glucose, Whole Blood 316 mg/dL (60-115)
[2022-01-07] MEDS: Tamsulosin HCL 0.4 MG CAPSULE PO (20:22)
[2022-01-07] MEDS: Insulin Glargine,Hum.rec.anlog 100 UNIT/ML 10 ML VIAL 17 UNIT SUBCUT (20:23)
[2022-01-08] MEDS: Nitroglycerin 2 % Oint 1 GM Packet 0.5 INCH TRANSDERMA ×4 (02:06→21:32)
[2022-01-08] MEDS: oxyCODONE HCl Immed Release 5 MG TABLET PO ×2 (02:09→21:31)
[2022-01-08] MEDS: Heparin Sodium,Porcine 5,000 UNIT/ML VIAL 5000 UNIT SUBCUT ×3 (02:09→17:31)
[2022-01-08 03:33] VITALS: BP 147/70; PULSE 60; RESP 18; TEMP 36.3; O2SAT 96
[2022-01-08 07:36] LABS: Glucose, Whole Blood 81 mg/dL (60-115)
[2022-01-08 08:00] VITALS: BP 186/79; PULSE 72; RESP 17; TEMP 36.1; O2SAT 96
[2022-01-08] MEDS: glipiZIDE 10 MG TABLET 20 MG PO ×2 (08:34→21:31)
[2022-01-08] MEDS: hydrALAZINE HCl 50 MG TABLET 100 MG PO ×2 (08:34→21:32)
[2022-01-08] MEDS: Sertraline HCL 50 MG TABLET PO (08:34)
[2022-01-08] MEDS: amLODIPine Besylate 5 MG TABLET PO ×2 (08:34→21:32)
[2022-01-08] MEDS: SITagliptin Phosphate 100 MG TABLET PO (08:34)
[2022-01-08] MEDS: Atorvastatin Calcium 80 MG TABLET PO (08:34)
[2022-01-08] MEDS: Furosemide 40 MG TABLET PO (08:35)
[2022-01-08] MEDS: Metoprolol Succinate ER 100 MG TAB.ER.24H PO (08:35)
[2022-01-08] MEDS: Losartan Potassium 50 MG TABLET PO (08:35)
[2022-01-08] MEDS: ceFAZolin Sodium/Dextrose,Iso 2 GM/50 ML PIGGYBACK IV ×2 (08:36→21:27)
[2022-01-08] MEDS: Acetaminophen 325 MG TABLET 650 MG PO ×2 (09:15→21:30)
[2022-01-08 11:13] VITALS: BP 144/63; PULSE 69; RESP 16; TEMP 36.2; O2SAT 96
[2022-01-08 11:21] LABS: Glucose, Whole Blood 215 mg/dL (60-115)
--- NOTE | 2022-01-08 11:39 | P.PNIM_ITS ---
Subjective Subjective Date of Service: 01/08/22 Interval History: seen inf/fur for HTN, diabetes, PAD interval history: Pain is better, no new issues Review of Systems no fever little pain int the foot Physical Exam Vital Signs: Vital Signs: Last Vital Signs Temp 97.2 F 01/08/22 11:13 Pulse 69 01/08/22 11:13 Resp 16 01/08/22 11:13 BP 144/63 H 01/08/22 11:13 Pulse Ox 96 01/08/22 11:13 O2 Del Method 01/08/22 11:13 BMI result Body Mass Index 28.8 Const: Other: General: AO X 3, no acute distress Resp: CTA bilateral CVS: S1,S2,RRR GI: +BS, NT, no distention Skin: No ext: foot is warn, pulse presetn but faint Neuro: motor grossly intact Psych: appropriate affect Objective Data Active Medications Acetaminophen (Acetaminophen 325 Mg Tablet) 650 mg PO Q6H PRN PRN Reason: Pain, Mild (Pain Scale 1-3) Last Admin: 01/08/22 09:15 Dose: 650 mg Documented By: KYLE Amlodipine Besylate (Amlodipine Besylate 5 Mg Tablet) 5 mg PO BID [facility]; Protocol Last Admin: 01/08/22 08:34 Dose: 5 mg Documented By: KYLE Atorvastatin Calcium (Atorvastatin Calcium 80 Mg Tablet) 80 mg PO DAILY [facility] Last Admin: 01/08/22 08:34 Dose: 80 mg Documented By: KYLE Fluticasone Propionate (Fluticasone Propionate Nasal 16 Gm [place]) 2 spray NOSTRIL-B DAILY PRN PRN Reason: Nasal Congestion Furosemide (Furosemide 40 Mg Tablet) 40 mg PO DAILY [facility]; Protocol Last Admin: 01/08/22 08:35 Dose: 40 mg Documented By: KYLE Glipizide (Glipizide 10 Mg Tablet) 20 mg PO BID [facility] Last Admin: 01/08/22 08:34 Dose: 20 mg Documented By: KYLE Heparin Sodium (Porcine) (Heparin Sodium,Porcine 5,000 Unit/Ml Vial) 5,000 unit SUBCUT Q8H [facility] Last Admin: 01/08/22 08:36 Dose: 5,000 unit Documented By: KYLE Hydralazine HCl (Hydralazine Hcl 20 Mg/Ml Vial) 10 mg IVPUSH Q8H PRN; Protocol PRN Reason: SBP >190 Last Admin: 01/04/22 17:24 Dose: 10 mg Documented By: NANI-BELA Hydralazine HCl (Hydralazine Hcl 50 Mg Tablet) 100 mg PO BID [facility]; Protocol Last Admin: 01/08/22 08:34 Dose: 100 mg Documented By: KYLE Cefazolin Sodium/Dextrose (Ancef) 2 gm in 50 mls @ 100 mls/hr IV Q12H [facility] Last Infusion: 01/08/22 09:23 Dose: 0 mls/hr Documented By: KYLE Insulin Glargine (Insulin Glargine,Hum.Rec.Anlog 100 Unit/Ml 10 Ml Vial) 17 unit SUBCUT BEDTIME [facility] Last Admin: 01/07/22 20:23 Dose: 17 unit Documented By: NAVNEET Insulin Human Lispro (Insulin Lispro 100 Unit/Ml 3 Ml Vial) 0 unit SUBCUT QIDACHS [facility]; Protocol Last Admin: 01/08/22 08:15 Dose: Not Given Documented By: KYLE Non-Admin Reason: No Insulin Coverage Losartan Potassium (Losartan Potassium 50 Mg Tablet) 50 mg PO DAILY [facility]; Pr otocol Last Admin: 01/08/22 08:35 Dose: 50 mg Documented By: KYLE Metoprolol Succinate (Metoprolol Succinate Er 100 Mg Tab.Er.24h) 100 mg PO DAILY [facility]; Protocol Last Admin: 01/08/22 08:35 Dose: 100 mg Documented By: KYLE Nitroglycerin (Nitroglycerin 2 % Oint 1 Gm Packet) 0.5 inch TRANSDERMA Q6H [facility] Last Admin: 01/08/22 08:35 Dose: 0.5 inch Documented By: KYLE Comments: Sertraline HCl (Sertraline Hcl 50 Mg Tablet) 50 mg PO DAILY [facility] Last Admin: 01/08/22 08:34 Dose: 50 mg Documented By: KYLE Sitagliptin Phosphate (Sitagliptin Phosphate 100 Mg Tablet) 100 mg PO DAILY [facility] Last Admin: 01/08/22 08:34 Dose: 100 mg Documented By: KYLE Tamsulosin HCl (Tamsulosin Hcl 0.4 Mg Capsule) 0.4 mg PO BEDTIME [facility] Last Admin: 01/07/22 20:22 Dose: 0.4 mg Documented By: NAVNEET Labs CBC & Chem 7: 01/03/22 06:25 01/03/22 06:25 Labs: Laboratory Results - last 24 hr 01/07/22 01/07/22 01/08/22 16:11 19:58 07:30 POC Glucose 204 H 316 H 81 01/08/22 11:16 POC Glucose 215 H Assessment and Plan (1) HTN (hypertension): Status: Acute (2) Preoperative cardiovascular examination: Status: Acute (3) PAD (peripheral artery disease): Status: Acute Plan 66 year old with DM, HTN, CKD3, HLD all controlled with meds peripharal vascular/arterial disease, he has prior hitory of metatarsal amputation. He underwent Preoperative diagnosis with finding of? Atherosclerosis of left lower extremity with nonhealing ulcer. Today he had 1. Ultrasound-guided right common femoral access 2. Aortogram with left lower extremity runoff. His pain is now better. BP is high. Has no SOB, no chest pain 1/PAD/PVD with non heling left foot ulcer-management per vascular s/p aortogram with left lower ext runoff, plan for endaterectomy on 01/09 -maximizing BP control, renal US no LORENZO 2/ Diabetes--continue glipizide, lantus for trulicity, SSI and hold Metformin d/t renal failure, diabetic diet 3/HTN--continue losartan, hydralazine 100 bid, lasix, norvasc if perisitent high then increase norvasc to 5 bid, adding Nitrop paste 0.5 qid, gaol of SBP 150 (BP now normal) 4/HLD-continue statin 5/ I don't think patient has cellulitis of the left foot but empiric antibiotic is reasonable. 6/CKD 3 is stable. At this point he's medically optimized for surgery, Stress stest on 01/04 was normal. Heparin for DVT prophylaxis Quality Stroke Does the patient have a stroke diagnosis?: No VTE Prior VTE?: No VTE Risk Level:: Surgical - moderate VTE Device Contraindication: Procedure Contraindicated VTE Drug Contraindication: N/A - Med Ordered
--- NOTE | 2022-01-08 12:10 | HO.VASCPN ---
Subjective Subjective Date of Service: 01/08/22 Patient reports: no new complaints and feels better Interval history: Patient seen and examined. Doing better over the past weekend. Blood pressure seems to be better controlled. He is anxious to undergo operative intervention. For surgery for tomorrow. Physical Exam Vital Signs: Vital Signs: Last Vital Signs Temp 97.2 F 01/08/22 11:13 Pulse 69 01/08/22 11:13 Resp 16 01/08/22 11:13 BP 144/63 H 01/08/22 11:13 Pulse Ox 96 01/08/22 11:13 O2 Del Method 01/08/22 11:13 BMI result Body Mass Index 28.8 Const: General: cooperative, healthy appearing and no acute distress Orientation/consciousness: oriented to person, oriented to place and oriented to time HEENT: Head: Yes normal to inspection Neck: Carotids: no bruits Chest: Chest palpation & inspection: normal inspection of the chest Resp: Effort & Inspection: normal respiratory effort and able to speak in complete sentences Auscultation: clear to auscultation bilaterally Cardio: Rate: regular rate Heart sounds: S1 normal heart sound present and S2 normal heart sound present GI: Inspection: Yes normal to inspection Skin: Other: Left foot 1st and 4th toe nonhealing ulcer General skin exam: no rashes or lesions noted Wounds: no wounds Neuro: General: oriented to person, oriented to place, oriented to time and CN's II-XI intact bilaterally Extrem: General: Yes normal to inspection, Yes full ROM and Yes no clubbing, cyanosis or edema Psych: Appearance: grossly normal and well kempt Speech and movement: Normal speech and movement present Affect: normal affect Progress Note: A&P Assessment and plan (1) PAD (peripheral artery disease): Status: Acute Assessment and Plan: In short patient appears to be doing relatively well. He will require a left femoral endarterectomy. 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 He agreed and would like to move forward. Cardiac risk stratification appreciated. Appreciate the hospitalist team's care. He will require ICU bed care postoperatively. Time Spent With Patient Time: Total time spent is greater than 50% in coordination of care (as documented) at patient's floor/unit and/or counseling patient: Procedures Date of Service Date of Service: 01/08/22 Quality Stroke Does the patient have a stroke diagnosis?: No VTE Prior VTE?: No VTE Risk Level:: Surgical - moderate VTE Device Contraindication: Procedure Contraindicated VTE Drug Contraindication: N/A - Med Ordered
[2022-01-08] MEDS: Insulin Lispro 100 UNIT/ML 3 ML VIAL SUBCUT ×3 (12:17→21:32)
[2022-01-08 13:21] LABS: Anion Gap 15 (12-20); Blood Urea Nitrogen 34 mg/dL (9-16); Calcium 9.1 mg/dL (8.4-10.2); Carbon Dioxide 23 mmol/L (22-29); Chloride 107 mmol/L (96-108); Creatinine Clr Calc Pharmacy 43.1; Estimated Glomerular Filt Rate 38; Glucose Random 213 mg/dL (60-115); Potassium 4.4 mmol/L (3.3-5.1); Sodium 141 mmol/L (135-145)
[2022-01-08 16:07] VITALS: BP 187/77; PULSE 68; RESP 18; TEMP 36.1; O2SAT 95
[2022-01-08 16:28] LABS: Glucose, Whole Blood 201 mg/dL (60-115)
[2022-01-08] MEDS: Morphine Sulfate 4 MG/ML CARTRIDGE IVPUSH ×2 (17:31→22:01)
[2022-01-08 20:01] VITALS: BP 179/81; PULSE 69; RESP 18; TEMP 36.2; O2SAT 93
[2022-01-08 20:07] LABS: Glucose, Whole Blood 282 mg/dL (60-115)
[2022-01-08] MEDS: Tamsulosin HCL 0.4 MG CAPSULE PO (21:32)
[2022-01-08] MEDS: Insulin Glargine,Hum.rec.anlog 100 UNIT/ML 10 ML VIAL 17 UNIT SUBCUT (21:33)
[2022-01-09] VITALS (21 sets, daily range): BP systolic 117–177; BP diastolic 39–83; PULSE 64–76; RESP 12–75; TEMP 36–37.2; O2SAT 94–100; BMI 29.7
--- NOTE | 2022-01-09 | ECG_ITS ---
Test Reason : postop Blood Pressure : / mmHG Vent. Rate : 071 BPM Atrial Rate : 071 BPM P-R Int : 208 ms QRS Dur : 094 ms QT Int : 426 ms P-R-T Axes : 000 038 -32 degrees QTc Int : 462 ms Normal sinus rhythm Nonspecific ST abnormality Inferior leads Abnormal ECG When compared with ECG of 04-JAN-2022 08:56, [place] interval has decreased Referred By: Rosetta Kaba Electronically Signed By:SWEETIE CASTRO MD
[2022-01-09] MEDS: Nitroglycerin 2 % Oint 1 GM Packet 0.5 INCH TRANSDERMA ×2 (03:23→09:13)
[2022-01-09] MEDS: Heparin Sodium,Porcine 5,000 UNIT/ML VIAL 5000 UNIT SUBCUT (03:24)
[2022-01-09 07:28] LABS: Glucose, Whole Blood 69 mg/dL (60-115)
[2022-01-09] MEDS: Atorvastatin Calcium 80 MG TABLET PO (09:13)
[2022-01-09] MEDS: amLODIPine Besylate 5 MG TABLET PO (09:13)
[2022-01-09] MEDS: Sertraline HCL 50 MG TABLET PO (09:13)
[2022-01-09] MEDS: Metoprolol Succinate ER 100 MG TAB.ER.24H PO (09:13)
[2022-01-09] MEDS: hydrALAZINE HCl 50 MG TABLET 100 MG PO (09:14)
[2022-01-09] MEDS: Lactated Ringers 1,000 ML 80 ML IVCONT (09:14)
[2022-01-09] MEDS: ceFAZolin Sodium/Dextrose,Iso 2 GM/50 ML PIGGYBACK IV ×2 (09:14→20:31)
[2022-01-09 09:49] LABS: COVID-19 Test Negative (Negative)
[2022-01-09 09:50] LABS: Glucose, Whole Blood 101 mg/dL (60-115)
--- NOTE | 2022-01-09 10:41 | HO.ANESPROP2 ---
HPI - Anesthesia Eval Consult details Narrative: 66yo male patient with PAD, for left femoral endarterectomy PMFSH Active Problems Active Problems: All Active Problems (Updated 01/04/22 @ 12:25 by ZOHAIB Mercer) HTN (hypertension) (Acute) Preoperative cardiovascular examination (Acute) PAD (peripheral artery disease) (Acute) Remote h/o smoking Anemia CKD Past Medical History Medical History Diabetes High cholesterol HTN (hypertension) Kidney disease Family History Family history of problems with anesthesia: No Surgical History Surgical History H/O shoulder surgery History of amputation of right forefoot History of Problems with Anesthesia: No Social History Social History (Updated 01/09/22 @ 10:45 by Rosetta Kaba MD) Household Members: None Housing: Apartment Do you presently have visiting nurse or other home services: No Patient Tobacco Use Status: Former Tobacco user Use of substances other than those prescribed or required for medical reasons: No Substance Use Type: Crack/Cocaine Last Used Substance Other:: 6 months ago Currently Displaying Signs/Symptoms of Drug Intoxication Withdrawal: No Have you been hit, kicked, punched, or otherwise hurt by someone within the past year? If so, by whom?: No Do you feel safe in your current relationship?: No Current Relationship Is there a partner from a previous relationship who is making you feel unsafe now?: No Are you made to feel afraid or neglected: No Are you DNR?: No Advance Directives: No Advance Directives Information Provided: Yes Do you have thoughts of harming others: None Do you have a plan to hurt others: No Plan Recently lost weight without trying: No How much weight loss: Not applicable Eating poorly because of decreased appetite: No Nutrition screen score: 0 Nutrition Risks: No Nutritional Risk Poor oral hygiene: No service: No Current occupational status: retired [employer] Allergies Allergy/AdvReac Type Severity Reaction Status Date / Time No Known Allergies Allergy Verified 12/28/21 11:17 [No Known Allergies*] Active Medications: Current Medications Acetaminophen (Acetaminophen 325 Mg Tablet) 650 mg PO Q6H PRN PRN Reason: Pain, Mild (Pain Scale 1-3) Last Admin: 01/08/22 21:30 Dose: 650 mg Amlodipine Besylate (Amlodipine Besylate 5 Mg Tablet) 5 mg PO BID [facility]; Protocol Last Admin: 01/09/22 09:13 Dose: 5 mg Atorvastatin Calcium (Atorvastatin Calcium 80 Mg Tablet) 80 mg PO DAILY [facility] Last Admin: 01/09/22 09:13 Dose: 80 mg Fluticasone Propionate (Fluticasone Propionate Nasal 16 Gm Mode) 2 spray NOSTRIL-B DAILY PRN PRN Reason: Nasal Congestion Furosemide (Furosemide 40 Mg Tablet) 40 mg PO DAILY [facility]; Protocol Last Admin: 01/08/22 08:35 Dose: 40 mg Glipizide (Glipizide 10 Mg Tablet) 20 mg PO BID [facility] Last Admin: 01/09/22 09:20 Dose: Not Given Heparin Sodium (Porcine) (Heparin Sodium,Porcine 5,000 Unit/Ml Vial) 5,000 unit SUBCUT Q8H [facility] Last Admin: 01/09/22 09:39 Dose: Not Given Hydralazine HCl (Hydralazine Hcl 20 Mg/Ml Vial) 10 mg IVPUSH Q8H PRN; Protocol PRN Reason: SBP >190 Last Admin: 01/04/22 17:24 Dose: 10 mg Hydralazine HCl (Hydralazine Hcl 50 Mg Tablet) 100 mg PO BID [facility]; Protocol Last Admin: 01/09/22 09:14 Dose: 100 mg Cefazolin Sodium/Dextrose (Ancef) 2 gm in 50 mls @ 100 mls/hr IV Q12H [facility] Last Infusion: 01/09/22 09:51 Dose: Infused Lactated Ringer's (Lr) 1,000 mls @ 80 mls/hr IVCONT .[id number] [facility] Last Admin: 01/09/22 09:14 Dose: 80 mls/hr Insulin Glargine (Insulin Glargine,Hum.Rec.Anlog 100 Unit/Ml 10 Ml Vial) 17 unit SUBCUT BEDTIME [facility] Last Admin: 01/08/22 21:33 Dose: 17 unit Insulin Human Lispro (Insulin Lispro 100 Unit/Ml 3 Ml Vial) 0 unit SUBCUT QIDACHS [facility]; Protocol Last Admin: 01/09/22 07:29 Dose: Not Given Losartan Potassium (Losartan Potassium 50 Mg Tablet) 50 mg PO DAILY [facility]; Protocol Last Admin: 01/08/22 08:35 Dose: 50 mg Metoprolol Succinate (Metoprolol Succinate Er 100 Mg Tab.Er.24h) 100 mg PO DAILY [facility]; Protocol Last Admin: 01/09/22 09:13 Dose: 100 mg Morphine Sulfate (Morphine Sulfate 4 Mg/Ml Cartridge) 4 mg IVPUSH Q2H PRN; Protocol PRN Reason: Pain, Severe (Pain Scale 7-10) Last Admin: 01/08/22 22:01 Dose: 4 mg Nitroglycerin (Nitroglycerin 2 % Oint 1 Gm Packet) 0.5 inch TRANSDERMA Q6H [facility] Last Admin: 01/09/22 09:13 Dose: 0.5 inch Oxycodone HCl (Oxycodone Hcl Immed Release 5 Mg Tablet) 5 mg PO Q4H PRN PRN Reason: Pain, Moderate (Pain Scale 4-6 Last Admin: 01/08/22 21:31 Dose: 5 mg Sertraline HCl (Sertraline Hcl 50 Mg Tablet) 50 mg PO DAILY [facility] Last Admin: 01/09/22 09:13 Dose: 50 mg Sitagliptin Phosphate (Sitagliptin Phosphate 100 Mg Tablet) 100 mg PO DAILY [facility] Last Admin: 01/09/22 09:20 Dose: Not Given Tamsulosin HCl (Tamsulosin Hcl 0.4 Mg Capsule) 0.4 mg PO BEDTIME [facility] Last Admin: 01/08/22 21:32 Dose: 0.4 mg Home Medications Medication Instructions Recorded Confirmed Last Taken Type amlodipine 5 mg tablet 5 mg PO QPM 04/27/21 01/03/22 01/02/22 History atorvastatin 80 mg tablet 80 mg PO DAILY 04/27/21 01/03/22 01/02/22 History fluticasone propionate 50 2 spray intranasal QA PRN Nasal 04/27/21 01/03/22 01/02/22 History mcg/actuation nasal Congestion spray,suspension furosemide 40 mg tablet 40 mg PO QAM 04/27/21 01/03/22 01/02/22 History glipizide 10 mg tablet 20 mg PO BID 04/27/21 01/03/22 01/02/22 History hydralazine 25 mg tablet 25 mg PO BID 04/27/21 01/03/22 01/02/22 History losartan 50 mg tablet 50 mg PO QAM 04/27/21 01/03/22 01/02/22 History metformin 1,000 mg tablet 1,000 mg PO BID 04/27/21 01/03/22 12/31/21 History metoprolol succinate 100 mg 100 mg PO DAILY 04/27/21 01/03/22 01/02/22 History tablet,extended release 24 hr sertraline 50 mg tablet 50 mg PO DAILY 04/27/21 01/03/22 01/02/22 History sitagliptin 100 mg tablet (Januvia) 100 mg PO DAILY 04/27/21 01/03/22 01/02/22 History povidone-iodine 10 % topical See Rx Instructions .Route .COMPLEX 12/28/21 01/03/22 01/02/22 History solution insulin degludec 100 unit/mL (3 25 unit subcut QPM 01/03/22 01/03/22 01/02/22 History mL) subcutaneous pen (Tresiba FlexTouch U-100 insulin) Exam Exam Date and Time: January 09, 2022 1041 Height,Weight and Vital Signs: Height 5 ft 8 in Weight 88.904 kg Last Vital Signs Temp 97.9 F 01/09/22 10:02 Pulse 65 01/09/22 10:02 Resp 18 01/09/22 10:02 BP 156/83 H 01/09/22 10:02 Pulse Ox 97 01/09/22 10:02 O2 Del Method 01/09/22 10:02 Pertinent Lab Results Pertinent Lab Results: Laboratory Tests 01/03/22 01/03/22 01/03/22 06:25 06:25 06:44 WBC 8.2 RBC 3.52 L Hgb 11.1 L Hct 32.6 L MCV 92.6 MCH 31.5 MCHC 34.0 RDW 12.1 Plt Count 289 MPV 9.8 Immature Gran % (Auto) 0.9 H Neut % (Auto) 57.2 Lymph % (Auto) 26.6 [place] % (Auto) 12.0 H Eos % (Auto) 2.4 Baso % (Auto) 0.9 Lymph # (Auto) 2.2 [place] # (Auto) 1.0 Eos # (Auto) 0.2 Baso # (Auto) 0.1 Abs Immat Gran (auto) 0.07 H Absolute Neuts (auto) 4.7 Absolute Nucleated RBC 0.000 Nucleated RBC % (auto) 0.0 Sodium Potassium Chloride Carbon Dioxide Anion Gap BUN 34 H Creatinine 1.82 H Estim Creat Clear Calc 42.6 Estimated GFR 37 POC Glucose 127 H Random Glucose Calcium COVID-19 (YANELIS) COVID-[place] Blood Type Antibody Screen 01/03/22 01/03/22 01/03/22 11:03 15:45 20:35 WBC RBC Hgb Hct MCV MCH MCHC RDW Plt Count MPV Immature Gran % (Auto) Neut % (Auto) Lymph % (Auto) [place] % (Auto) Eos % (Auto) Baso % (Auto) Lymph # (Auto) [place] # (Auto) Eos # (Auto) Baso # (Auto) Abs Immat Gran (auto) Absolute Neuts (auto) Absolute Nucleated RBC Nucleated RBC % (auto) Sodium Potassium Chloride Carbon Dioxide Anion Gap BUN Creatinine Estim Creat Clear Calc Estimated GFR POC Glucose 201 H 202 H 141 H Random Glucose Calcium COVID-19 (YANELIS) COVID-HYLT [facility] [employer] Blood Type Antibody Screen 01/04/22 01/04/22 01/04/22 01:25 02:06 07:12 WBC RBC Hgb Hct MCV MCH MCHC RDW Plt Count MPV Immature Gran % (Auto) Neut % (Auto) Lymph % (Auto) [place] % (Auto) Eos % (Auto) Baso % (Auto) Lymph # (Auto) [place] # (Auto) Eos # (Auto) Baso # (Auto) Abs Immat Gran (auto) Absolute Neuts (auto) Absolute Nucleated RBC Nucleated RBC % (auto) Sodium Potassium Chloride Carbon Dioxide Anion Gap BUN Creatinine Estim Creat Clear Calc Estimated GFR POC Glucose 50 L* 158 H 139 H Random Glucose Calcium COVID-19 (YANELIS) [facility] [employer] Blood Type Antibody Screen 01/04/22 01/04/22 01/05/22 13:07 21:54 07:20 WBC RBC Hgb Hct MCV MCH MCHC RDW Plt Count MPV Immature Gran % (Auto) Neut % (Auto) Lymph % (Auto) [place] % (Auto) Eos % (Auto) Baso % (Auto) Lymph # (Auto) [place] # (Auto) Eos # (Auto) Baso # (Auto) Abs Immat Gran (auto) Absolute Neuts (auto) Absolute Nucleated RBC Nucleated RBC % (auto) Sodium Potassium Chloride Carbon Dioxide Anion Gap BUN Creatinine Estim Creat Clear Calc Estimated GFR POC Glucose 147 H 128 H 67 Random Glucose Calcium COVID-19 (YANELIS) COVID-19 [employer] Blood Type Antibody Screen 01/05/22 01/05/22 01/05/22 09:55 10:55 16:33 WBC RBC Hgb Hct MCV MCH MCHC RDW Plt Count MPV Immature Gran % (Auto) Neut % (Auto) Lymph % (Auto) [place] % (Auto) Eos % (Auto) Baso % (Auto) Lymph # (Auto) [place] # (Auto) Eos # (Auto) Baso # (Auto) Abs Immat Gran (auto) Absolute Neuts (auto) Absolute Nucleated RBC Nucleated RBC % (auto) Sodium Potassium Chloride Carbon Dioxide Anion Gap BUN Creatinine Estim Creat Clear Calc Estimated GFR POC Glucose 267 H 246 H 92 Random Glucose Calcium COVID-19 (YANELIS) [facility] Blood Type Antibody Screen 01/05/22 01/06/22 01/06/22 21:18 07:24 11:05 WBC RBC Hgb Hct MCV MCH MCHC RDW Plt Count MPV Immature Gran % (Auto) Neut % (Auto) Lymph % (Auto) [place] % (Auto) Eos % (Auto) Baso % (Auto) Lymph # (Auto) [place] # (Auto) Eos # (Auto) Baso # (Auto) Abs Immat Gran (auto) Absolute Neuts (auto) Absolute Nucleated RBC Nucleated RBC % (auto) Sodium Potassium Chloride Carbon Dioxide Anion Gap BUN Creatinine Estim Creat Clear Calc Estimated GFR POC Glucose 285 H 61 188 H Random Glucose Calcium COVID-19 (YANELIS) COVID-19 [employer] Blood Type Antibody Screen 01/06/22 01/06/22 01/07/22 16:15 21:06 07:23 WBC RBC Hgb Hct MCV MCH MCHC RDW Plt Count MPV Immature Gran % (Auto) Neut % (Auto) Lymph % (Auto) [place] % (Auto) Eos % (Auto) Baso % (Auto) Lymph # (Auto) [place] # (Auto) Eos # (Auto) Baso # (Auto) Abs Immat Gran (auto) Absolute Neuts (auto) Absolute Nucleated RBC Nucleated RBC % (auto) Sodium Potassium Chloride Carbon Dioxide Anion Gap BUN Creatinine Estim Creat Clear Calc Estimated GFR POC Glucose 252 H 226 H 97 Random Glucose Calcium COVID-19 (YANELIS) [employer] Blood Type Antibody Screen 1001/07/22 01/07/22 11:17 16:11 19:58 WBC RBC Hgb Hct MCV MCH MCHC RDW Plt Count MPV Immature Gran % (Auto) Neut % (Auto) Lymph % (Auto) [place] % (Auto) Eos % (Auto) Baso % (Auto) Lymph # (Auto) [place] # (Auto) Eos # (Auto) Baso # (Auto) Abs Immat Gran (auto) Absolute Neuts (auto) Absolute Nucleated RBC Nucleated RBC % (auto) Sodium Potassium Chloride Carbon Dioxide Anion Gap BUN Creatinine Estim Creat Clear Calc Estimated GFR POC Glucose 228 H 204 H 316 H Random Glucose Calcium COVID-19 (YANELIS) [address] [employer] Blood Type Antibody Screen 01/08/22 01/08/22 01/08/22 07:30 11:16 13:03 WBC RBC Hgb Hct MCV MCH MCHC RDW Plt Count MPV Immature Gran % (Auto) Neut % (Auto) Lymph % (Auto) [place] % (Auto) Eos % (Auto) Baso % (Auto) Lymph # (Auto) [place] # (Auto) Eos # (Auto) Baso # (Auto) Abs Immat Gran (auto) Absolute Neuts (auto) Absolute Nucleated RBC Nucleated RBC % (auto) Sodium Potassium Chloride Carbon Dioxide Anion Gap BUN Creatinine Estim Creat Clear Calc Estimated GFR POC Glucose 81 215 H Random Glucose Calcium COVID-19 (YANELIS) [employer] Blood Type O Positive Antibody Screen NEGATIVE 01/08/22 01/08/22 01/08/22 13:03 16:09 20:03 WBC RBC Hgb Hct MCV MCH MCHC RDW Plt Count MPV Immature Gran % (Auto) Neut % (Auto) Lymph % (Auto) [place] % (Auto) Eos % (Auto) Baso % (Auto) Lymph # (Auto) [place] # (Auto) Eos # (Auto) Baso # (Auto) Abs Immat Gran (auto) Absolute Neuts (auto) Absolute Nucleated RBC Nucleated RBC % (auto) Sodium 141 Potassium 4.4 Chloride 107 Carbon Dioxide 23 Anion Gap 15 BUN 34 H Creatinine 1.80 H Estim Creat Clear Calc 43.1 Estimated GFR 38 POC Glucose 201 H 282 H Random Glucose 213 H Calcium 9.1 COVID-19 (YANELIS) [employer] Blood Type Antibody Screen 01/09/22 01/09/22 01/09/22 07:19 09:27 09:47 WBC RBC Hgb Hct MCV MCH MCHC RDW Plt Count MPV Immature Gran % (Auto) Neut % (Auto) Lymph % (Auto) [place] % (Auto) Eos % (Auto) Baso % (Auto) Lymph # (Auto) [place] # (Auto) Eos # (Auto) Baso # (Auto) Abs Immat Gran (auto) Absolute Neuts (auto) Absolute Nucleated RBC Nucleated RBC % (auto) Sodium Potassium Chloride Carbon Dioxide Anion Gap BUN Creatinine Estim Creat Clear Calc Estimated GFR POC Glucose 69 101 Random Glucose Calcium COVID-19 (YANELIS) Negative COVID-19 Clin Com See Note Blood Type Antibody Screen Airway Mallampati Class: III TM Dist: >3cm Neck ROM: Full Partial: Upper Loose/Missing/Broken Teeth: No (Denies broken or loose teeth) Heart: RRR Lungs: CTAB Assessment and Plan Assessment Anesthesia Assessment: Anesthesia Plan Discussed and Chart Reviewed Final Anesthetic Review Family History of Problems with Anesthesia: No History of Problems with Anesthesia: No NPO: Yes ASA Class: III Final Preanesthetic Review: No Changes in Pt Med Stat, Meds/Allgs Chart Reviewed, Consent Obtained/Reviewed and Anes Risks/Benef Reviewed Patient Risk: Intermediate Procedure Risk: Intermediate Assessment/Block/Sedation in SS: Assess/Block/Sedation-SS Anesthetic Plan Anesthetic Plan: GA Disposition: Standard PACU and Inp. Admit - ICU
--- NOTE | 2022-01-09 13:39 | W.PM.OPN ---
Operative Note Operative Note Date of Service: 01/09/22 Narrative: Operative note by [facility] Preoperative diagnosis: Atherosclerosis with nonhealing left leg ulcer Postoperative diagnosis: Same Procedure: Left femoral endarterectomy Surgeon:Lyle Topete M.D. Bobbin Winder Tender: Hermann DEAN Anesthesia: General Specimens: 1 Drains: None Estimated blood loss: 100 mL Indications: 66-year-old gentleman with prior history of peripheral vascular disease and right lower extremity transmetatarsal amputation has a nonhealing left lower extremity ulcer. He has undergone endovascular angiogram and noted to have left common femoral artery disease. He now presents for operative intervention. The patient has signed the informed consent after reviewing risks, complications, benefits, and alternatives previously discussed with the patient. The patient was given the opportunity to ask any additional questions or voice any concerns. All questions were answered to the patient's satisfaction. Procedure in detail: Patient was brought to the operating room prior to which a time-out was called for patient identification site verification. Left lower extremity was prepped and draped in standard surgical fashion. We then made a longitudinal incision over the common femoral artery. We dissected down to the common femoral artery. We were able to easily isolate out the common femoral superficial femoral and profundus femorals. Once this was dissected clear we isolated these with silastic loops. 5000 units of systemic heparin was administered. After 5 minutes of circulation time we then clamped down on the common femoral superficial femoral profundus femorals in all the side branches. Once this was accomplished we made an arteriotomy longitudinally. We opened up the vessel with Bartlett scissors. Once this accomplished we then endarterectomized the vessel. All the loose debris was also removed. He was cleared. Once this was all accomplished we then used a XenoSure patch. This was circumferentially anastomosed with a 6 0 Prolene. Prior to closure this was flushed clear. We then closed. We had to throw several interrupted 7 0 Prolene sutures to obtain hemostasis. We then used to seal sealant. Once this was accomplished we reapproximated deep layer using 2-0 Polysorb superficial layer with 3-0 poly Sorb finally skin with skin clips. Prior to complete closure local was given. Once this was all accomplished he had a distal signal in the dorsalis pedis. He had good capillary refill. At the end the case sponge instrument counts were correct. Patient tolerated the procedure well. Returned to recovery with stable vitals. This note is constructed using voice recognition software. While every effort has been made to ensure accuracy, school attendance secretary errors may have been included. Thank you for allowing me to participate in the care of your patient. Yours sincerely, Lyle Topete MD, FACS, R.P.V.I.
[2022-01-09 13:56] LABS: Glucose, Whole Blood 111 mg/dL (60-115)
--- NOTE | 2022-01-09 15:18 | P.PNIM_ITS ---
Subjective Subjective Date of Service: 01/09/22 Interval History: fu for HTN, diabetes, PAD Review of Systems Denies any new complaint of chest pain or shortness of breath or abdominal pain or fever chills Physical Exam Vital Signs: Vital Signs: Last Vital Signs Temp 98.9 F 01/09/22 14:24 Pulse 70 01/09/22 14:24 Resp 16 01/09/22 14:24 BP 130/55 L 01/09/22 14:24 Pulse Ox 100 01/09/22 14:24 O2 Del Method 01/09/22 14:24 O2 Flow Rate 2 01/09/22 14:24 BMI result Body Mass Index 29.7 Appearance: Alert.? Oriented X3.? not in distress.? cvs: rrr, [id number] . res: clear to auscultation ,no rhonchii or wheezing abd: no rebound or guarding ,nt, bs present. ext pulses present , pulse present but faint neuro: axo3 , nonfocal. Objective Data Active Medications Acetaminophen (Acetaminophen 325 Mg Tablet) 650 mg PO Q6H PRN PRN Reason: Pain, Mild (Pain Scale 1-3) Last Admin: 01/08/22 21:30 Dose: 650 mg Documented By: CLIFFORD Albuterol Sulfate (Albuterol Sulfate (0.083%) 2.5 Mg/3 Ml Vial.Neb) 2.5 mg INHALE ONCE PRN PRN Reason: Shortness of Breath/Wheezing Amlodipine Besylate (Amlodipine Besylate 5 Mg Tablet) 5 mg PO BID [facility]; Protocol Last Admin: 01/09/22 09:13 Dose: 5 mg Documented By: COTEMA Atorvastatin Calcium (Atorvastatin Calcium 80 Mg Tablet) 80 mg PO DAILY [facility] Last Admin: 01/09/22 09:13 Dose: 80 mg Documented By: LOTTIEEMA Fentanyl (Fentanyl Citrate/Pf 100 Mcg/2 Ml Vial) 25 mcg IVPUSH Q5M PRN; Protocol PRN Reason: Pain, Moderate (Pain Scale 4-6 Fluticasone Propionate (Fluticasone Propionate Nasal 16 Gm [place]) 2 spray NOSTRIL-B DAILY PRN PRN Reason: Nasal Congestion Furosemide (Furosemide 40 Mg Tablet) 40 mg PO DAILY [facility]; Protocol Last Admin: 01/08/22 08:35 Dose: 40 mg Documented By: HO.MATTHEP Glipizide (Glipizide 10 Mg Tablet) 20 mg PO BID [facility] Last Admin: 01/09/22 09:20 Dose: Not Given Documented By: MELISSA Non-Admin Reason: low bg Heparin Sodium (Porcine) (Heparin Sodium,Porcine 5,000 Unit/Ml Vial) 5,000 unit SUBCUT Q8H [facility] Last Admin: 01/09/22 09:39 Dose: Not Given Documented By: MELISSA Non-Admin Reason: preop Hydralazine HCl (Hydralazine Hcl 20 Mg/Ml Vial) 10 mg IVPUSH Q8H PRN; Protocol PRN Reason: SBP >190 Last Admin: 01/04/22 17:24 Dose: 10 mg Documented By: N-RIVLA Hydralazine HCl (Hydralazine Hcl 50 Mg Tablet) 100 mg PO BID [facility]; Protocol Last Admin: 01/09/22 09:14 Dose: 100 mg Documented By: MELISSA Hydromorphone HCl (Hydromorphone Hcl 0.5 Mg/0.5 Ml Syringe) 0.25 mg IVPUSH Q5M PRN; Protocol PRN Reason: Pain, Severe (Pain Scale 7-10) Cefazolin Sodium/Dextrose (Ancef) 2 gm in 50 mls @ 100 mls/hr IV Q12H [facility] Last Infusion: 01/09/22 09:51 Dose: 0 mls/hr Documented By: LOTTIEEMA Lactated Ringer's (Lr) 1,000 mls @ 80 mls/hr IVCONT .[id number] [facility] Last Admin: 01/09/22 09:14 Dose: 80 mls/hr Documented By: COTEMA Lactated Ringer's (Lr) 1,000 mls @ 100 mls/hr IVCONT .Q10H [facility] Promethazine HCl 6.25 mg/ (Sodium Chloride) 50.25 mls @ 201 mls/hr IV ONCE PRN PRN Reason: Nausea and Vomiting Sodium Chloride (Ns) 1,000 mls @ 80 mls/hr IVCONT .[id number] [facility] Insulin Glargine (Insulin Glargine,Hum.Rec.Anlog 100 Unit/Ml 10 Ml Vial) 17 unit SUBCUT BEDTIME [facility] Last Admin: 01/08/22 21:33 Dose: 17 unit Documented By: CLIFFORD Insulin Human Lispro (Insulin Lispro 100 Unit/Ml 3 Ml Vial) 0 unit SUBCUT QIDACHS [facility]; Protocol Last Admin: 01/09/22 07:29 Dose: Not Given Documented By: MELISSA Non-Admin Reason: No Insulin Coverage Losartan Potassium (Losartan Potassium 50 Mg Tablet) 50 mg PO DAILY [facility]; Protocol Last Admin: 01/08/22 08:35 Dose: 50 mg Documented By: KYLE Metoprolol Succinate (Metoprolol Succinate Er 100 Mg Tab.Er.24h) 100 mg PO DAILY [facility]; Protocol Last Admin: 01/09/22 09:13 Dose: 100 mg Documented By: MELISSA Morphine Sulfate (Morphine Sulfate 4 Mg/Ml Cartridge) 4 mg IVPUSH Q2H PRN; Protocol PRN Reason: Pain, Severe (Pain Scale 7-10) Last Admin: 01/08/22 22:01 Dose: 4 mg Documented By: CLIFFORD Morphine Sulfate (Morphine Sulfate 2 Mg/Ml Cartridge) 2 mg IVPUSH Q4H PRN; Protocol PRN Reason: Pain, Severe (Pain Scale 7-10) Nitroglycerin (Nitroglycerin 2 % Oint 1 Gm Packet) 0.5 inch TRANSDERMA Q6H [facility] Last Admin: 01/09/22 09:13 Dose: 0.5 inch Documented By: MELISSA Ondansetron HCl (Ondansetron Hcl 4 Mg/2 Ml Vial) 4 mg IVPUSH ONCE PRN PRN Reason: Nausea and Vomiting Oxycodone HCl (Oxycodone Hcl Immed Release 5 Mg Tablet) 5 mg PO Q4H PRN PRN Reason: Pain, Moderate (Pain Scale 4-6 Last Admin: 01/08/22 21:31 Dose: 5 mg Documented By: CLIFFORD Oxycodone HCl (Oxycodone Hcl Immed Release 5 Mg Tablet) 5 mg PO ONCE PRN PRN Reason: Pain, Severe (Pain Scale 7-10) Sertraline HCl (Sertraline Hcl 50 Mg Tablet) 50 mg PO DAILY [facility] Last Admin: 01/09/22 09:13 Dose: 50 mg Documented By: MELISSA Sitagliptin Phosphate (Sitagliptin Phosphate 100 Mg Tablet) 100 mg PO DAILY [facility] Last Admin: 01/09/22 09:20 Dose: Not Given Documented By: MELISSA Non-Admin Reason: 'LOW BG Sodium Chloride (0.9 % Sodium Chloride Flush 3 Ml Syringe) 3 ml IVFLUSH QSHIFT [facility] Tamsulosin HCl (Tamsulosin Hcl 0.4 Mg Capsule) 0.4 mg PO BEDTIME [facility] Last Admin: 01/08/22 21:32 Dose: 0.4 mg Documented By: CLIFFORD Labs CBC & Chem 7: 01/03/22 06:25 01/08/22 13:03 Labs: Laboratory Results - last 24 hr 01/08/22 01/08/22 01/08/22 13:03 16:09 20:03 POC Glucose 201 H 282 H COVID-19 (YANELIS) COVID-19 Clin Com Blood Type O Positive Antibody Screen NEGATIVE Crossmatch See Detail 01/09/22 01/09/22 01/09/22 07:19 09:27 09:47 POC Glucose 69 101 COVID-19 (YANELIS) Negative COVID-19 Clin Com See Note Blood Type Antibody Screen Crossmatch 01/09/22 13:49 POC Glucose 111 COVID-19 (YANELIS) COVID-19 Clin Com Blood Type Antibody Screen Crossmatch Assessment and Plan (1) HTN (hypertension): Status: Acute (2) PAD (peripheral artery disease): Status: Acute Plan 66 year old with DM, HTN, CKD3, HLD all controlled with meds peripharal vascular/arterial disease, he has prior hitory of metatarsal amputation. He underwent Preoperative diagnosis with finding of? Atherosclerosis of left lower extremity with nonhealing ulcer. Today he had 1. Ultrasound-guided right common femoral access 2. Aortogram with left lower extremity runoff. His pain is now better. BP is high. Has no SOB, no chest pain 1/PAD/PVD with non heling left foot ulcer-management per vascular s/p aortogram with left lower ext runoff, plan for endaterectomy on 01/09 -maximizing BP control, renal US no LORENZO. 2/ Diabetes--continue glipizide, lantus for trulicity, SSI and hold Metformin d/t renal failure, diabetic diet. 3/HTN--continue hydralazine 100 bid, norvasc if perisitent high then increase norvasc to 5 bid, adding Nitrop paste 0.5 qid, gaol of SBP 150 (BP now normal) hold lasix/losartan-since patient Patient is NPO for the surgical Intervention. 4/HLD-continue statin. 5/ I don't think patient has cellulitis of the left foot but empiric antibiotic is reasonable. 6/CKD 3 is stable. At this point he's medically optimized for surgery, Stress stest on 01/04 was normal. In patient need for ongoing hospitalization: patient is going for left femoral endarterectomy and subsequently will be going to ICU after the procedure. Patient will be under ICU service after procedure for moniterin. Quality Stroke Does the patient have a stroke diagnosis?: No VTE Prior VTE?: No VTE Risk Level:: Surgical - moderate VTE Device Contraindication: Procedure Contraindicated VTE Drug Contraindication: N/A - Med Ordered
[2022-01-09] MEDS: 0.9 % Sodium Chloride 1,000 ML 80 ML IVCONT (17:15)
--- NOTE | 2022-01-09 18:05 | W.PM.CCCN ---
History of Present Illness Data of Consult Service Date: 01/09/22 Requesting physician: Lyle Topete Primary Care Provider: Marline Richard MD [facility] Reason for consult: Femoral endarterectomy procedure/monitor ST changes 66-year-old type 2 diabetic and hypertensive and hyperlipidemic male with probable renal vascular disease and stage III chronic renal failure with creatinine of 1.8 BUN in the 30s and known peripheral vascular disease status post transmetatarsal amputation on the right and and ischemic left lower extremity issues due to common femoral artery occlusion underwent left femoral endarterectomy leaving him warm well perfused and they noted some ST segment sagging on the monitor strip and a subsequent 12 lead EKG was stable normal sinus rhythm no new changes troponin is pending and patient is asymptomatic and normotensive and awake and alert nonfocal neurologically no distress Review of Systems Review of Systems: Yes all other systems are reviewed and are negative [facility] Past Medical History Medical History (Updated 01/09/22 @ 18:08 by Taryn Boudreaux MD) Diabetes High cholesterol HTN (hypertension) Hyperlipidemia associated with type 2 diabetes mellitus Kidney disease Type 2 diabetes mellitus Surgical History Surgical History H/O shoulder surgery History of amputation of right forefoot Social History Social History (Updated 01/09/22 @ 10:45 by Rosetta Kaba MD) Household Members: None Housing: Apartment Do you presently have visiting nurse or other home services: No Patient Tobacco Use Status: Former Tobacco user Use of substances other than those prescribed or required for medical reasons: No Substance Use Type: Crack/Cocaine Last Used Substance Other:: 6 months ago Currently Displaying Signs/Symptoms of Drug Intoxication Withdrawal: No Have you been hit, kicked, punched, or otherwise hurt by someone within the past year? If so, by whom?: No Do you feel safe in your current relationship?: No Current Relationship Is there a partner from a previous relationship who is making you feel unsafe now?: No Are you made to feel afraid or neglected: No Are you DNR?: No Advance Directives: No Advance Directives Information Provided: Yes Do you have thoughts of harming others: None Do you have a plan to hurt others: No Plan Recently lost weight without trying: No How much weight loss: Not applicable Eating poorly because of decreased appetite: No Nutrition screen score: 0 Nutrition Risks: No Nutritional Risk Poor oral hygiene: No service: No Current occupational status: retired Meds Allergies Allergy/AdvReac Type Severity Reaction Status Date / Time No Known Allergies Allergy Verified 12/28/21 11:17 [No Known Allergies*] Active Medications: Current Medications Acetaminophen (Acetaminophen 325 Mg Tablet) 650 mg PO Q6H PRN PRN Reason: Pain, Mild (Pain Scale 1-3) Last Admin: 01/08/22 21:30 Dose: 650 mg Albuterol Sulfate (Albuterol Sulfate (0.083%) 2.5 Mg/3 Ml Vial.Neb) 2.5 mg INHALE ONCE PRN PRN Reason: Shortness of Breath/Wheezing Amlodipine Besylate (Amlodipine Besylate 5 Mg Tablet) 5 mg PO BID [facility]; Protocol Last Admin: 01/09/22 09:13 Dose: 5 mg Atorvastatin Calcium (Atorvastatin Calcium 80 Mg Tablet) 80 mg PO DAILY [facility] Last Admin: 01/09/22 09:13 Dose: 80 mg Fluticasone Propionate (Fluticasone Propionate Nasal 16 Gm [place]) 2 spray NOSTRIL-B DAILY PRN PRN Reason: Nasal Congestion Glipizide (Glipizide 10 Mg Tablet) 20 mg PO BID [facility] Last Admin: 01/09/22 09:20 Dose: Not Given Hydralazine HCl (Hydralazine Hcl 50 Mg Tablet) 100 mg PO BID [facility]; Protocol Last Admin: 01/09/22 09:14 Dose: 100 mg Cefazolin Sodium/Dextrose (Ancef) 2 gm in 50 mls @ 100 mls/hr IV Q12H [facility] Last Infusion: 01/09/22 09:51 Dose: Infused Sodium Chloride (Ns) 1,000 mls @ 80 mls/hr IVCONT .[id number] [facility] Last Admin: 01/09/22 17:15 Dose: 80 mls/hr Insulin Glargine (Insulin Glargine,Hum.Rec.Anlog 100 Unit/Ml 10 Ml Vial) 17 unit SUBCUT BEDTIME [facility] Last Admin: 01/08/22 21:33 Dose: 17 unit Insulin Human Lispro (Insulin Lispro 100 Unit/Ml 3 Ml Vial) 0 unit SUBCUT QIDACHS [facility]; Protocol Last Admin: 01/09/22 07:29 Dose: Not Given Losartan Potassium (Losartan Potassium 50 Mg Tablet) 50 mg PO DAILY [facility]; Protocol Last Admin: 01/08/22 08:35 Dose: 50 mg Metoprolol Succinate (Metoprolol Succinate Er 50 Mg Tab.Er.24h) 50 mg PO DAILY [facility]; Protocol Morphine Sulfate (Morphine Sulfate 4 Mg/Ml Cartridge) 4 mg IVPUSH Q2H PRN; Protocol PRN Reason: Pain, Severe (Pain Scale 7-10) Last Admin: 01/08/22 22:01 Dose: 4 mg Morphine Sulfate (Morphine Sulfate 2 Mg/Ml Cartridge) 2 mg IVPUSH Q4H PRN; Protocol PRN Reason: Pain, Severe (Pain Scale 7-10) Ondansetron HCl (Ondansetron Hcl 4 Mg/2 Ml Vial) 4 mg IVPUSH ONCE PRN PRN Reason: Nausea and Vomiting Sertraline HCl (Sertraline Hcl 50 Mg Tablet) 50 mg PO DAILY [facility] Last Admin: 01/09/22 09:13 Dose: 50 mg Sitagliptin Phosphate (Sitagliptin Phosphate 100 Mg Tablet) 100 mg PO DAILY [facility] Last Admin: 01/09/22 09:20 Dose: Not Given Sodium Chloride (0.9 % Sodium Chloride Flush 3 Ml Syringe) [facility] Tamsulosin HCl (Tamsulosin Hcl 0.4 Mg Capsule) 0.4 mg PO BEDTIME [facility] Last Admin: 01/08/22 21:32 Dose: 0.4 mg Home Medications Medication Instructions Recorded Confirmed Last Taken Type amlodipine 5 mg tablet 5 mg PO QPM 04/27/21 01/03/22 01/02/22 History atorvastatin 80 mg tablet 80 mg PO DAILY 04/27/21 01/03/22 01/02/22 History fluticasone propionate 50 2 spray intranasal QAM PRN Nasal 04/27/21 01/03/22 01/02/22 History mcg/actuation nasal Congestion spray,suspension furosemide 40 mg tablet 40 mg PO QAM 04/27/21 01/03/22 01/02/22 History glipizide 10 mg tablet 20 mg PO BID 04/27/21 01/03/22 01/02/22 History hydralazine 25 mg tablet 25 mg PO BID 04/27/21 01/03/22 01/02/22 History losartan 50 mg tablet 50 mg PO QAM 04/27/21 01/03/22 01/02/22 History metformin 1,000 mg tablet 1,000 mg PO BID 04/27/21 01/03/22 12/31/21 History metoprolol succinate 100 mg 100 mg PO DAILY 04/27/21 01/03/22 01/02/22 History tablet,extended release 24 hr sertraline 50 mg tablet 50 mg PO DAILY 04/27/21 01/03/22 01/02/22 History sitagliptin 100 mg tablet (Januvia) 100 mg PO DAILY 04/27/21 01/03/22 01/02/22 History povidone-iodine 10 % topical See Rx Instructions .Route .COMPLEX 12/28/21 01/03/22 01/02/22 History solution insulin degludec 100 unit/mL (3 25 unit subcut QPM 01/03/22 01/03/22 01/02/22 History mL) subcutaneous pen (Tresiba FlexTouch U-100 insulin) Physical Exam Vital Signs: Vital Signs: Last Vital Signs Temp 97.8 F 01/09/22 16:19 Pulse 64 01/09/22 16:19 Resp 16 01/09/22 16:19 BP 140/51 H 01/09/22 16:19 Pulse Ox 99 01/09/22 16:19 O2 Del Method 01/09/22 16:19 O2 Flow Rate 2 01/09/22 15:39 BMI result Body Mass Index 29.7 Pressure is 120/65 sinus rhythm rate 68 oxygen saturation 98% without distress Bedside cardiovascular exam by echo shows globally normal systolic wall motion of the left ventricle with normal right ventricular dimension and function and no primary valve or pericardial disease Abdomen benign no bruits no again a megaly chest clear without adventitious sounds Results Labs CBC & Chem 7: 01/03/22 06:25 01/08/22 13:03 Assessment and Plan (1) HTN (hypertension): Status: Acute (2) PAD (peripheral artery disease): Status: Acute (3) Type 2 diabetes mellitus: Status: Acute (4) Hyperlipidemia associated with type 2 diabetes mellitus: Status: Acute Plan Follow-up troponin tailor his blood pressure medications down for now maintain adequate perfusion pressure follow-up lab work including his BUN creatinine and CBC
[2022-01-09 18:38] LABS: Basophils Percent Auto 0.3 % (0-2); Hemoglobin 9.8 g/dl (14.0-18.0); Imm Gran Abs Auto 0.03 X10*3/uL (0.00-0.03); Imm Gran Pct Auto 0.4 % (0.0-0.4); Lymphocytes Absolute Auto 0.4 X10*3/uL (1.2-4.9); Lymphocytes Percent Auto 5.5 % (20-40); MANUAL DIFF FLAG SCAN; Mean Corpuscular HGB Conc 33.8 g/dl (31.0-36.0); Mean Corpuscular Hemoglobin 31.7 pg (27.0-33.0); Mean Corpuscular Volume 93.9 fL (80.0-98.0); Mean Platelet Volume 10.4 fL (9.4-12.4); Monocytes Absolute Auto 0.1 X10*3/uL (0.1-1.2); Monocytes Percent Auto 1.3 % (2-11); Neutrophils Absolute Auto 7.3 x10*3/uL (2.0-8.3); Neutrophils Percent Auto 92.5 % (45-73); Platelet Count 239 X10*3/uL (160-400); Red Blood Count 3.09 X10*6/uL (4.60-5.80); Red Cell Distribution Width 12.2 % (11.0-16.0); SCAN SMEAR FLAG 1; White Blood Count 7.9 X10*3/uL (4.8-10.8)
[2022-01-09] MEDS: 0.9 % Sodium Chloride Flush 3 ML SYRINGE IVFLUSH (18:54)
[2022-01-09 19:00] LABS: SLIDE REVIEW VERIFIED
[2022-01-09 19:05] LABS: Anion Gap 16 (12-20); Blood Urea Nitrogen 31 mg/dL (9-16); Calcium 8.6 mg/dL (8.4-10.2); Carbon Dioxide 24 mmol/L (22-29); Chloride 103 mmol/L (96-108); Creatinine Clr Calc Pharmacy 43.2; Estimated Glomerular Filt Rate 37; Glucose Random 384 mg/dL (60-115); Potassium 4.8 mmol/L (3.3-5.1); Sodium 138 mmol/L (135-145)
--- NOTE | 2022-01-09 19:24 | PC.NURSE ---
Report received from PATIENT CARE, Patient brought down in bed. Clinical Nutrition Manager brought down to department to complete initial assessment of patient, Patient found to be A&O x4. Head to toe revealed a surgical incision to left groin, CDI, covered in pink foam dressing. Patient also had missing toe nail to left big toe as well as diabetic ulcer to left middle toe. Patient right foot has prior partial amputation resulting in the loss of all toes on right side. Nitropaste D/C'd by . see DARLENER.
[2022-01-09 19:30] LABS: Troponin-I High Sensitivity 10.1 ng/L (<3.5-35.0)
[2022-01-09 20:28] LABS: Glucose, Whole Blood 323 mg/dL (60-115)
[2022-01-09] MEDS: glipiZIDE 10 MG TABLET 20 MG PO (20:31)
[2022-01-09] MEDS: Tamsulosin HCL 0.4 MG CAPSULE PO (20:31)
[2022-01-09] MEDS: Insulin Glargine,Hum.rec.anlog 100 UNIT/ML 10 ML VIAL 17 UNIT SUBCUT (20:32)
[2022-01-09] MEDS: Insulin Lispro 100 UNIT/ML 3 ML VIAL SUBCUT (20:32)
[2022-01-10] VITALS (24 sets, daily range): BP systolic 126–179; BP diastolic 49–86; PULSE 67–88; RESP 10–22; TEMP 36.4–36.8; O2SAT 92–98
--- NOTE | 2022-01-10 | ECG_ITS ---
Test Reason : f/u ischemia Blood Pressure : / mmHG Vent. Rate : 072 BPM Atrial Rate : 072 BPM P-R Int : 216 ms QRS Dur : 096 ms QT Int : 400 ms P-R-T Axes : 050 025 034 degrees QTc Int : 438 ms Sinus rhythm with 1st degree A-V block Nonspecific ST abnormality Inferior leads Abnormal ECG When compared with ECG of 09-JAN-2022 13:39, No significant change was found Referred By: Taryn Boudreaux Electronically Signed By:SWEETIE CASTRO MD
[2022-01-10] MEDS: Morphine Sulfate 4 MG/ML CARTRIDGE IVPUSH ×2 (00:03→23:30)
[2022-01-10 04:07] LABS: MANUAL DIFF FLAG NO
[2022-01-10 04:18] LABS: Basophils Percent Auto 0.2 % (0-2); Eosinophils Percent Auto 0.1 % (0-4); Hematocrit 27.5 % (42.0-52.0); Hemoglobin 9.2 g/dl (14.0-18.0); Imm Gran Abs Auto 0.05 X10*3/uL (0.00-0.03); Imm Gran Pct Auto 0.5 % (0.0-0.4); Lymphocytes Absolute Auto 0.7 X10*3/uL (1.2-4.9); Mean Corpuscular HGB Conc 33.5 g/dl (31.0-36.0); Mean Corpuscular Hemoglobin 31.7 pg (27.0-33.0); Mean Corpuscular Volume 94.8 fL (80.0-98.0); Mean Platelet Volume 10.3 fL (9.4-12.4); Monocytes Percent Auto 8.8 % (2-11); Neutrophils Absolute Auto 9.1 x10*3/uL (2.0-8.3); Neutrophils Percent Auto 84.4 % (45-73); Platelet Count 259 X10*3/uL (160-400); Red Cell Distribution Width 11.9 % (11.0-16.0); White Blood Count 10.8 X10*3/uL (4.8-10.8)
[2022-01-10 04:36] LABS: Anion Gap 16 (12-20); Blood Urea Nitrogen 30 mg/dL (9-16); Calcium 8.7 mg/dL (8.4-10.2); Carbon Dioxide 23 mmol/L (22-29); Chloride 104 mmol/L (96-108); Creatinine Clr Calc Pharmacy 47.7; Estimated Glomerular Filt Rate 42; Glucose Random 268 mg/dL (60-115); Potassium 5.2 mmol/L (3.3-5.1); Sodium 138 mmol/L (135-145)
[2022-01-10 04:40] LABS: Alanine Aminotransferase 14 U/L (0-40); Albumin Level 3.1 g/dL (3.5-5.0); Alkaline Phosphatase 72 U/L (39-117); Anion Gap 17 (12-20); Aspartate Amino Transferase 26 U/L (5-37); Bilirubin Total < 0.2 mg/dL (0.0-1.0); Blood Urea Nitrogen 30 mg/dL (9-16); Calcium 8.7 mg/dL (8.4-10.2); Carbon Dioxide 22 mmol/L (22-29); Chloride 103 mmol/L (96-108); Creatinine Clr Calc Pharmacy 46.5; Estimated Glomerular Filt Rate 41; Glucose Random 270 mg/dL (60-115); Magnesium 1.8 mg/dL (1.6-2.6); Potassium 5.2 mmol/L (3.3-5.1); Sodium 137 mmol/L (135-145); Total Protein 6.1 g/dL (6.5-8.0)
[2022-01-10] MEDS: 0.9 % Sodium Chloride 1,000 ML 80 ML IVCONT (04:57)
[2022-01-10 07:18] LABS: Glucose, Whole Blood 198 mg/dL (60-115)
--- NOTE | 2022-01-10 07:44 | P.PNVS_ITS ---
Subjective Subjective Date of Service: 01/10/22 Patient reports: no new complaints and feels better Interval history: Patient seen and examined. No significant events overnight. Reports to be doing relatively well. Pain well controlled. Comfortable in bed. He did tolerate p.o. yesterday evening. States that the leg feels little bit warmer this morning. Now for postop day 1 follow-up. Physical Exam Vital Signs: Vital Signs: Last Vital Signs Temp 97.9 F 01/09/22 19:01 Pulse 73 01/10/22 07:00 Resp 10 L 01/10/22 07:00 BP 146/64 H 01/10/22 07:00 Pulse Ox 97 01/10/22 07:00 O2 Del Method 01/10/22 07:00 O2 Flow Rate 2 01/09/22 15:39 BMI result Body Mass Index 29.7 Const: General: cooperative, healthy appearing and no acute distress Orientation/consciousness: oriented to person, oriented to place and oriented to time HEENT: Head: Yes normal to inspection Neck: Carotids: no bruits Chest: Chest palpation & inspection: normal inspection of the chest Resp: Effort & Inspection: normal respiratory effort and able to speak in complete sentences Auscultation: clear to auscultation bilaterally Cardio: Other: Left leg triphasic DP and PT signals Rate: regular rate Heart sounds: S1 normal heart sound present and S2 normal heart sound present GI: Inspection: Yes normal to inspection Skin: Other: Left groin dressing minimal staining at the superior aspect. No significant hematoma noted General skin exam: no rashes or lesions noted Wounds: no wounds Neuro: General: oriented to person, oriented to place, oriented to time and CN's II-XI intact bilaterally Extrem: General: Yes normal to inspection, Yes full ROM and Yes no clubbing, cyanosis or edema Psych: Appearance: grossly normal and well kempt Speech and movement: Normal speech and movement present Affect: normal affect Progress Note: A&P Assessment and plan (1) PAD (peripheral artery disease): Status: Acute Assessment and Plan: Patient is postop day 1 status post left femoral endarterectomy for nonhealing ulcers. He appears to be doing significantly better. We will DC the [facility]. He will be transferred up to an [facility] bed. Will start with physical therapy tomorrow. Should he continue to progress anticipate discharge within the next day or 2. Time Spent With Patient Time: Total time spent is greater than 50% in coordination of care (as documented) at patient's floor/unit and/or counseling patient: Procedures Date of Service Date of Service: 01/10/22 Quality Stroke Does the patient have a stroke diagnosis?: No VTE Prior VTE?: No VTE Risk Level:: Surgical - moderate VTE Device Contraindication: Procedure Contraindicated VTE Drug Contraindication: N/A - Med Ordered
[2022-01-10] MEDS: Insulin Lispro 100 UNIT/ML 3 ML VIAL SUBCUT ×4 (07:51→20:08)
--- NOTE | 2022-01-10 07:54 | P.PNCC_ITS ---
Subjective Subjective Date of Service: 01/10/22 Interval History: Mr. Rivero is a 66-year-old male w/ PMH of type 2 diabetes, ?HTN, HLD, with probable renal vascular disease, CKD 3 with baseline BUN/Creat 30s/1.8., known peripheral vascular disease,?S/P transmetatarsal amputation on the right and common femoral artery occlusion on the left. Yesterday he underwent a left femoral endarterectomy for nonhealing ulcers leaving the leg well perfused.? Postop, there were some ST segment changes noted on the monitor strip. A subsequent 12 lead EKG was stable:NSR with no new changes. ?Serial troponins were negative. ?Overnight, the patient was asymptomatic ?and normotensive. Upon my exam this morning the patient is A&O x3, appropriate. CN's II-XI intact bilaterally, HR 73, BP 146/64, RRR no rubs murmurs or gallops, Left leg triphasic DP and PT signals, No neck vein distension. SpO2 97% on room air, lung sounds clear bilaterally, breathing easy, with normal expiratory phase. Abdomen is benign. Left femoral incision dressing had minimal staining at the superior aspect.? No significant hematoma noted. Critical Care Time (minutes): 30 Physical Exam Vital Signs: Vital Signs: Last Vital Signs Temp 97.9 F 01/09/22 19:01 Pulse 73 01/10/22 07:00 Resp 10 L 01/10/22 07:00 BP 146/64 H 01/10/22 07:00 Pulse Ox 97 01/10/22 07:00 O2 Del Method 01/10/22 07:00 O2 Flow Rate 2 01/09/22 15:39 BMI result Body Mass Index 29.7 Objective Data Labs CBC & Chem 7: 01/10/22 03:56 01/10/22 03:56 Labs: Laboratory Results - last 24 hr 01/08/22 01/09/22 01/09/22 13:03 09:27 09:47 WBC RBC Hgb Hct MCV MCH MCHC RDW Plt Count MPV Immature Gran % (Auto) Neut % (Auto) Lymph % (Auto) [place] % (Auto) Eos % (Auto) Baso % (Auto) Lymph # (Auto) [place] # (Auto) Eos # (Auto) Baso # (Auto) Abs Immat Gran (auto) Absolute Neuts (auto) Absolute Nucleated RBC Nucleated RBC % (auto) Smear Tech's Comments Sodium Potassium Chloride Carbon Dioxide Anion Gap BUN Creatinine Estim Creat Clear Calc Estimated GFR POC Glucose 101 Random Glucose Calcium Magnesium Total Bilirubin AST ALT Alkaline Phosphatase Troponin I High Sens Total Protein Albumin COVID-19 (YANELIS) Negative COVID-19 Clin Com See Note Blood Type O Positive Antibody Screen NEGATIVE Crossmatch See Detail 01/09/22 01/09/22 01/09/22 13:49 18:23 18:23 WBC 7.9 RBC 3.09 L Hgb 9.8 L Hct 29.0 L MCV 93.9 MCH 31.7 MCHC 33.8 RDW 12.2 Plt Count 239 MPV 10.4 Immature Gran % (Auto) 0.4 Neut % (Auto) 92.5 H Lymph % (Auto) 5.5 L [place] % (Auto) 1.3 L Eos % (Auto) 0.0 Baso % (Auto) 0.3 Lymph # (Auto) 0.4 L [place] # (Auto) 0.1 Eos # (Auto) 0.0 Baso # (Auto) 0.0 Abs Immat Gran (auto) 0.03 Absolute Neuts (auto) 7.3 Absolute Nucleated RBC 0.000 Nucleated RBC % (auto) 0.0 Smear Tech's Comments VERIFIED Sodium 138 Potassium 4.8 Chloride 103 Carbon Dioxide 24 Anion Gap 16 BUN 31 H Creatinine 1.82 H Estim Creat Clear Calc 43.2 Estimated GFR 37 POC Glucose 111 Random Glucose 384 H* Calcium 8.6 Magnesium Total Bilirubin AST ALT Alkaline Phosphatase Troponin I High Sens Total Protein Albumin COVID-19 (YANELIS) COVID-19 Clin Com Blood Type Antibody Screen Crossmatch 01/09/22 01/09/22 01/10/22 18:23 20:25 03:56 WBC RBC Hgb Hct MCV MCH MCHC RDW Plt Count MPV Immature Gran % (Auto) Neut % (Auto) Lymph % (Auto) [place] % (Auto) Eos % (Auto) Baso % (Auto) Lymph # (Auto) [place] # (Auto) Eos # (Auto) Baso # (Auto) Abs Immat Gran (auto) Absolute Neuts (auto) Absolute Nucleated RBC Nucleated RBC % (auto) Smear Tech's Comments Sodium 138 Potassium 5.2 H Chloride 104 Carbon Dioxide 23 Anion Gap 16 BUN 30 H Creatinine 1.65 H Estim Creat Clear Calc 47.7 Estimated GFR 42 POC Glucose 323 H Random Glucose 268 H Calcium 8.7 Magnesium Total Bilirubin AST ALT Alkaline Phosphatase Troponin I High Sens 10.1 Total Protein Albumin COVID-19 (YANELIS) COVID-19 [facility] Blood Type Antibody Screen Crossmatch 01/10/22 01/10/22 01/10/22 03:56 03:56 03:56 WBC 10.8 RBC 2.90 L Hgb 9.2 L Hct 27.5 L MCV 94.8 MCH 31.7 MCHC 33.5 RDW 11.9 Plt Count 259 MPV 10.3 Immature Gran % (Auto) 0.5 H Neut % (Auto) 84.4 H Lymph % (Auto) 6.0 L [place] % (Auto) 8.8 Eos % (Auto) 0.1 Baso % (Auto) 0.2 Lymph # (Auto) 0.7 L [place] # (Auto) 1.0 Eos # (Auto) 0.0 Baso # (Auto) 0.0 Abs Immat Gran (auto) 0.05 H Absolute Neuts (auto) 9.1 H Absolute Nucleated RBC 0.000 Nucleated RBC % (auto) 0.0 Smear Tech's Comments Sodium 137 Potassium 5.2 H Chloride 103 Carbon Dioxide 22 Anion Gap 17 BUN 30 H Creatinine 1.69 H Estim Creat Clear Calc 46.5 Estimated GFR 41 POC Glucose Random Glucose 270 H Calcium 8.7 Magnesium 1.8 Total Bilirubin < 0.2 AST 26 ALT 14 Alkaline Phosphatase 72 Troponin I High Sens 11.0 Total Protein 6.1 L Albumin 3.1 L COVID-19 (YANELIS) COVID-19 [facility] Blood Type Antibody Screen Crossmatch 01/10/22 07:15 WBC RBC Hgb Hct MCV MCH MCHC RDW Plt Count MPV Immature Gran % (Auto) Neut % (Auto) Lymph % (Auto) [place] % (Auto) Eos % (Auto) Baso % (Auto) Lymph # (Auto) [place] # (Auto) Eos # (Auto) Baso # (Auto) Abs Immat Gran (auto) Absolute Neuts (auto) Absolute Nucleated RBC Nucleated RBC % (auto) Smear Tech's Comments Sodium Potassium Chloride Carbon Dioxide Anion Gap BUN Creatinine Estim Creat Clear Calc Estimated GFR POC Glucose 198 H Random Glucose Calcium Magnesium Total Bilirubin AST ALT Alkaline Phosphatase Troponin I High Sens Total Protein Albumin COVID-19 (YANELIS) COVID-19 Clin Com Blood Type Antibody Screen Crossmatch Progress Note: A&P Assessment and plan (1) Hyperlipidemia associated with type 2 diabetes mellitus: Status: Acute (2) Type 2 diabetes mellitus: Status: Acute (3) HTN (hypertension): Status: Acute (4) PAD (peripheral artery disease): Status: Acute (5) Kidney disease: Status: Acute Plan The patient is medically cleared for transfer. Quality Stroke Does the patient have a stroke diagnosis?: No VTE Prior VTE?: No VTE Risk Level:: Surgical - moderate VTE Device Contraindication: Procedure Contraindicated VTE Drug Contraindication: N/A - Med Ordered Critical Care Time Critical Care Time (minutes): 30
[2022-01-10] MEDS: SITagliptin Phosphate 100 MG TABLET PO (08:42)
[2022-01-10] MEDS: Sertraline HCL 50 MG TABLET PO (08:42)
[2022-01-10] MEDS: Losartan Potassium 50 MG TABLET PO (08:42)
[2022-01-10] MEDS: Metoprolol Succinate ER 50 MG TAB.ER.24H PO (08:42)
[2022-01-10] MEDS: Atorvastatin Calcium 80 MG TABLET PO (08:42)
[2022-01-10] MEDS: glipiZIDE 10 MG TABLET 20 MG PO ×2 (08:42→20:08)
[2022-01-10] MEDS: ceFAZolin Sodium/Dextrose,Iso 2 GM/50 ML PIGGYBACK IV (08:51)
[2022-01-10] MEDS: 0.9 % Sodium Chloride Flush 3 ML SYRINGE IVFLUSH ×3 (08:51→20:09)
[2022-01-10 11:20] LABS: Glucose, Whole Blood 193 mg/dL (60-115)
--- NOTE | 2022-01-10 11:26 | PM.EVENT ---
Event Note Date of Service: 01/11/22 Event Note: patient got transferred from ICU today. Patient has defervesced disease status post endarterectomy yesterday- discussed with ICU doing better physical exam unchanged ICU note. Assessment and plan coordinated in ICU documentation will continue to monitor. Pad status post enterectomy: management as per vascular surgery hypertension: continue current regimen as per ICU, blood pressure is improving. diabetes : continue to monitor, continue Lantus and sliding scale. , diabetic diet.
--- NOTE | 2022-01-10 12:01 | MHC.CM.PN ---
EMR REVIEWED, CM WILL CONTINUE TO FOLLOW FOR ANY CHANGES IN D/C PLANNING.
--- NOTE | 2022-01-10 14:36 | HO.POSTANES ---
Post Anesthesia Evaluation Post Anesthesia Evaluation Vital Signs: Vital Signs Temp Pulse Resp BP Pulse Ox O2 Del Method 01/10/22 13:35 93 Room Air 01/10/22 10:50 95 Room Air 01/10/22 14:00 88 22 H 148/76 H 92 Room Air 01/10/22 13:00 77 12 139/57 L 94 Room Air 01/10/22 12:00 97.6 F 79 18 142/51 H 97 Room Air 01/10/22 11:00 78 12 129/62 95 Room Air 01/10/22 10:00 72 12 154/73 H 96 Room Air 01/10/22 09:00 75 17 155/60 H 97 Room Air 01/10/22 08:00 98.0 F 73 12 179/86 H 97 Room Air 01/10/22 07:00 73 10 L 146/64 H 97 Room Air 01/10/22 06:00 74 15 159/70 H 93 Room Air 01/10/22 05:00 70 11 L 153/67 H 97 Room Air 01/10/22 04:00 70 12 163/65 H 98 Room Air 01/10/22 03:00 73 15 142/54 H 94 Room Air Anesthesia: General Mental Status: Awake Pain Control: Satisfactory Nausea/Vomiting: None Hydration: Adequate Anesthesia-Related Issues: No Anes. Related Issues
[2022-01-10 14:59] LABS: Creatinine Urine 150.99 mg/dL
[2022-01-10 15:29] LABS: Microalbum/Creatinine Ratio Ur 2094.8 ug/mg cr
[2022-01-10 16:10] LABS: Glucose, Whole Blood 244 mg/dL (60-115)
--- NOTE | 2022-01-10 17:56 | PC.NURSE ---
Patient alert and oriented x4 on morning assessment. Meru bedside to assess surgical site and positive Doppler pulse check distal to site. Harris D/C'd at roughly 0930. Patient had multiple voids post removal. Sample collected and sent for albumin testing, see EMAR. Patient bathed, ambulated, and updated on health status. Report given to receiving Medical-program architect and patient was brought up to room with belongings.
[2022-01-10 19:33] LABS: Glucose, Whole Blood 205 mg/dL (60-115)
[2022-01-10] MEDS: amLODIPine Besylate 5 MG TABLET PO (20:08)
[2022-01-10] MEDS: Tamsulosin HCL 0.4 MG CAPSULE PO (20:08)
[2022-01-11 02:44] VITALS: BP 142/60; PULSE 68; RESP 16; TEMP 36.6; O2SAT 94
[2022-01-11 07:27] VITALS: BP 162/65; PULSE 70; RESP 18; TEMP 36.4; O2SAT 92
[2022-01-11 07:34] LABS: Glucose, Whole Blood 123 mg/dL (60-115)
[2022-01-11 09:21] LABS: Hematocrit 25.6 % (42.0-52.0); Hemoglobin 8.4 g/dl (14.0-18.0)
[2022-01-11 09:41] LABS: Anion Gap 13 (12-20); Blood Urea Nitrogen 34 mg/dL (9-16); Calcium 8.5 mg/dL (8.4-10.2); Carbon Dioxide 26 mmol/L (22-29); Chloride 108 mmol/L (96-108); Creatinine Clr Calc Pharmacy 48.3; Estimated Glomerular Filt Rate 43; Glucose Random 133 mg/dL (60-115); Potassium 4.8 mmol/L (3.3-5.1); Sodium 142 mmol/L (135-145)
[2022-01-11] MEDS: Losartan Potassium 50 MG TABLET PO (09:47)
[2022-01-11] MEDS: Atorvastatin Calcium 80 MG TABLET PO (09:47)
[2022-01-11] MEDS: 0.9 % Sodium Chloride Flush 3 ML SYRINGE IVFLUSH (09:48)
[2022-01-11] MEDS: SITagliptin Phosphate 100 MG TABLET PO (09:48)
[2022-01-11] MEDS: glipiZIDE 10 MG TABLET 20 MG PO (09:48)
[2022-01-11] MEDS: Metoprolol Succinate ER 50 MG TAB.ER.24H PO (09:48)
[2022-01-11] MEDS: Sertraline HCL 50 MG TABLET PO (09:48)
[2022-01-11] MEDS: amLODIPine Besylate 5 MG TABLET PO (09:48)
[2022-01-11 10:00] VITALS: O2SAT 94
[2022-01-11] MEDS: Morphine Sulfate 2 MG/ML CARTRIDGE IVPUSH (10:19)
--- NOTE | 2022-01-11 10:53 | P.PNNP_ITS ---
Subjective Subjective Date of Service: 01/11/22 Principal diagnosis: PVD, preop Left femoral endarterectomy Interval history: Seen and examined, events noted Physical Exam Vital Signs: Vital Signs: Last Vital Signs Temp 97.5 F 01/11/22 07:27 Pulse 70 01/11/22 07:27 Resp 18 01/11/22 07:27 BP 162/65 H 01/11/22 07:27 Pulse Ox 94 01/11/22 10:00 O2 Del Method 01/11/22 10:00 O2 Flow Rate 2 01/09/22 15:39 Oxygen Flow Rate 0 01/10/22 10:50 BMI result Body Mass Index 29.7 Const: Other: General: AO X 3, no acute distress Resp: CTA bilateral CVS: S1,S2,RRR GI: +BS, NT, no distention Skin: No ext: foot is warn, pulse presetn but faint Neuro: motor grossly intact Psych: appropriate affect General: cooperative, healthy appearing, comfortable, no acute distress, alert and awake Nutritional Appearance: overweight Orientation/consciousness: oriented to person, oriented to place, oriented to time and patient oriented x3 Limitations: 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 (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) HEENT: Head: Yes normal to inspection, Yes normocephalic and Yes atraumatic Neck: Neck: Yes normal visual inspection, Yes trachea midline, Yes supple and Yes no JVD Carotids: no bruits Chest: Chest palpation & inspection: normal inspection of the chest Resp: Effort & Inspection: normal respiratory effort and able to speak in complete sentences Auscultation: clear to auscultation bilaterally, no crackles, no rales, no rhonchi and no wheezes Cardio: Other: Left leg triphasic DP and PT signals Jugular venous distension: no JVD Palpation: normal PMI Rate: regular rate Rhythm: regular rhythm Heart sounds: S1 normal heart sound present, S2 normal heart sound present, no click, no gallops, no murmurs and no rubs Bruits: no carotid bruits Peripheral pulses: Peripheral pulses 2+ throughout and dorsalis pedis present ( Bilateral DP signals) GI: Inspection: Yes normal to inspection Auscultation: normal bowel sounds Skin: Other: Left groin dressing minimal staining at the superior aspect. No significant hematoma noted General skin exam: no rashes or lesions noted Wounds: no wounds and wounds noted (Left foot 1st and 4th toe) Hair: normal Neuro: General: oriented to person, oriented to place, oriented to time, patient oriented x3 and CN's II-XI intact bilaterally Cranial nerves: Yes CN's II-XII intact bilaterally and Yes Normal hearing present Cognition (Neuro): normal cognition Motor exam (neuro): 5/5 motor strength present throughout Extrem: Other: Right transmetatarsal amp. Left toes with ulcerations noted. Legs warm to touch without significant edema. General: Yes normal to inspection, Yes full ROM, Yes no clubbing, cyanosis or edema, No clubbing, No cyanosis, No edema and Yes other ( Right transmetatarsal amputation. bilateral ischemic changes in the feet) Psych: Appearance: grossly normal and well kempt Mental Status: mental status grossly normal Speech and movement: Normal speech and movement present Affect: normal affect Objective Data Labs CBC & Chem 7: 01/11/22 09:00 01/11/22 09:00 Labs: Laboratory Results - last 24 hr 01/10/22 01/10/22 01/10/22 11:16 14:29 16:06 Hgb Hct Sodium Potassium Chloride Carbon Dioxide Anion Gap BUN Creatinine Estim Creat Clear Calc Estimated GFR POC Glucose 193 H 244 H Random Glucose Calcium Urine Creatinine 150.99 Urine Microalbumin 3163.0 Microalb/Creat Ratio 2094.8 01/10/22 01/11/22 01/11/22 19:11 07:26 09:00 Hgb 8.4 L Hct 25.6 L Sodium Potassium Chloride Carbon Dioxide Anion Gap BUN Creatinine Estim Creat Clear Calc Estimated GFR POC Glucose 205 H 123 H Random Glucose Calcium Urine Creatinine Urine Microalbumin Microalb/Creat Ratio 01/11/22 09:00 Hgb Hct Sodium 142 Potassium 4.8 Chloride 108 Carbon Dioxide 26 Anion Gap 13 BUN 34 H Creatinine 1.63 H Estim Creat Clear Calc 48.3 Estimated GFR 43 POC Glucose Random Glucose 133 H D Calcium 8.5 Urine Creatinine Urine Microalbumin Microalb/Creat Ratio Procedures Date of Service Date of Service: 01/11/22 Assessment & Plan Assessment and plan (1) Hyperlipidemia associated with type 2 diabetes mellitus: Status: Acute (2) Type 2 diabetes mellitus: Status: Acute (3) HTN (hypertension): Status: Acute (4) PAD (peripheral artery disease): Status: Acute (5) Kidney disease: Status: Acute Assessment and Plan: 1. CKD 3: SCr 1.3-1.7 range;most c/w DN/HTN renal dis 2. Proteinuria: most c/w DN/HTN renal dis 3. Anemia: check Fe studies 4. MBD of CKD REC: cont cozaar and incr 100 mg,avoid NToxins; check Fe studies; as outpt will look to add [id number] and kerendia for added renal/CV protection I will arrange f/u with me as outpt Plan The patient is medically cleared for transfer. Time Spent With Patient Time: Total time spent is greater than 50% in coordination of care (as documented) at patient's floor/unit and/or counseling patient: Progress Note: Quality Stroke Does the patient have a stroke diagnosis?: No
[2022-01-11 11:11] VITALS: BP 164/75; PULSE 81; RESP 18; TEMP 36.2; O2SAT 94
[2022-01-11 11:18] LABS: Iron 44 mcg/dL (45-160); Percent Iron Saturation 17 % (15-50); Total Iron Binding Capacity 256 mcg/dL (228-428); Unsaturated Iron Binding 212 ug/dL
[2022-01-11 11:27] LABS: Glucose, Whole Blood 237 mg/dL (60-115)
[2022-01-11 11:38] LABS: Ferritin 164 ng/mL (20-250)
--- NOTE | 2022-01-11 11:56 | P.PNIM_ITS ---
Subjective Subjective Date of Service: 01/11/22 Interval History: htn, dm,pad Review of Systems Denies any new complaint of chest pain or shortness of breath or abdominal pain or fever chills Physical Exam Vital Signs: Vital Signs: Last Vital Signs Temp 97.2 F 01/11/22 11:11 Pulse 81 01/11/22 11:11 Resp 18 01/11/22 11:11 BP 164/75 H 01/11/22 11:11 Pulse Ox 94 01/11/22 11:11 O2 Del Method 01/11/22 11:11 O2 Flow Rate 2 01/09/22 15:39 Oxygen Flow Rate 0 01/10/22 10:50 BMI result Body Mass Index 29.7 Appearance: Alert.? Oriented X3.? not in distress.? cvs: rrr, [id number] . res: clear to auscultation ,no rhonchii or wheezing abd: no rebound or guarding ,nt, bs present. ext pulses present , pulse present but faint neuro: axo3 , nonfocal. Objective Data Active Medications Acetaminophen (Acetaminophen 325 Mg Tablet) 650 mg PO Q6H PRN PRN Reason: Pain, Mild (Pain Scale 1-3) Last Admin: 01/08/22 21:30 Dose: 650 mg Documented By: CLIFFORD Albuterol Sulfate (Albuterol Sulfate (0.083%) 2.5 Mg/3 Ml Vial.Neb) 2.5 mg INHALE ONCE PRN PRN Reason: Shortness of Breath/Wheezing Amlodipine Besylate (Amlodipine Besylate 5 Mg Tablet) 5 mg PO BID [facility]; Protocol Last Admin: 01/11/22 09:48 Dose: 5 mg Documented By: KYLE Atorvastatin Calcium (Atorvastatin Calcium 80 Mg Tablet) 80 mg PO DAILY [facility] Last Admin: 01/11/22 09:47 Dose: 80 mg Documented By: KYLE Fluticasone Propionate (Fluticasone Propionate Nasal 16 Gm [place]) 2 spray NOSTRIL-B DAILY PRN PRN Reason: Nasal Congestion Glipizide (Glipizide 10 Mg Tablet) 20 mg PO BID [facility] Last Admin: 01/11/22 09:48 Dose: 20 mg Documented By: KYLE Insulin Glargine (Insulin Glargine,Hum.Rec.Anlog 100 Unit/Ml 10 Ml Vial) 17 unit SUBCUT BEDTIME [facility] Last Admin: 01/09/22 20:32 Dose: 17 unit Documented By: MIRIAN Insulin Human Lispro (Insulin Lispro 100 Unit/Ml 3 Ml Vial) 0 unit SUBCUT QIDACHS [facility]; Protocol Last Admin: 01/11/22 07:41 Dose: Not Given Documented By: KYLE Non-Admin Reason: No Insulin Coverage Losartan Potassium (Losartan Potassium 50 Mg Tablet) 100 mg PO DAILY [facility]; Protocol Metoprolol Succinate (Metoprolol Succinate Er 50 Mg Tab.Er.24h) 50 mg PO DAILY [facility]; Protocol Last Admin: 01/11/22 09:48 Dose: 50 mg Documented By: KYLE Morphine Sulfate (Morphine Sulfate 4 Mg/Ml Cartridge) 4 mg IVPUSH Q2H PRN; Protocol PRN Reason: Pain, Severe (Pain Scale 7-10) Last Admin: 01/10/22 23:30 Dose: 4 mg Documented By: STEPHANIE Morphine Sulfate (Morphine Sulfate 2 Mg/Ml Cartridge) 2 mg IVPUSH Q4H PRN; Protocol PRN Reason: Pain, Severe (Pain Scale 7-10) Last Admin: 01/11/22 10:19 Dose: 2 mg Documented By: KYLE Ondansetron HCl (Ondansetron Hcl 4 Mg/2 Ml Vial) 4 mg IVPUSH ONCE PRN PRN Reason: Nausea and Vomiting Sertraline HCl (Sertraline Hcl 50 Mg Tablet) 50 mg PO DAILY [facility] Last Admin: 01/11/22 09:48 Dose: 50 mg Documented By: KYLE Sitagliptin Phosphate (Sitagliptin Phosphate 100 Mg Tablet) 100 mg PO DAILY [facility] Last Admin: 01/11/22 09:48 Dose: 100 mg Documented By: KYLE Sodium Chloride (0.9 % Sodium Chloride Flush 3 Ml Syringe) [facility] Last Admin: 01/11/22 09:48 Dose: 3 ml Documented By: KYLE Tamsulosin HCl (Tamsulosin Hcl 0.4 Mg Capsule) 0.4 mg PO BEDTIME [facility] Last Admin: 01/10/22 20:08 Dose: 0.4 mg Documented By: STEPHANIE Labs CBC & Chem 7: 01/11/22 09:00 01/11/22 09:00 Labs: Laboratory Results - last 24 hr 01/10/22 01/10/22 01/10/22 14:29 16:06 19:11 Anion Gap Estim Creat Clear Calc Estimated GFR POC Glucose 244 H 205 H Random Glucose Calcium Iron TIBC % Saturation Unsat Iron Binding Ferritin Urine Creatinine 150.99 Urine Microalbumin 3163.0 Microalb/Creat Ratio 2094.8 01/11/22 01/11/22 01/11/22 07:26 09:00 11:08 Anion Gap 13 Estim Creat Clear Calc 48.3 Estimated GFR 43 POC Glucose 123 H 237 H Random Glucose 133 H D Calcium 8.5 Iron 44 L TIBC 256 % Saturation 17 Unsat Iron Binding 212 Ferritin 164 Urine Creatinine Urine Microalbumin Microalb/Creat Ratio Assessment and Plan (1) HTN (hypertension): Status: Acute (2) PAD (peripheral artery disease): Status: Acute Plan 66 year old with DM, HTN, CKD3, HLD all controlled with meds peripharal vascular/arterial disease, he has prior hitory of metatarsal amputation. He underwent Preoperative diagnosis with finding of? Atherosclerosis of left lower extremity with nonhealing ulcer. Today he had 1. Ultrasound-guided right common femoral access 2. Aortogram with left lower extremity runoff. His pain is now better. BP is high. Has no SOB, no chest pain 1/PAD/PVD with non heling left foot ulcer-management per vascular s/p aortogram with left lower ext runoff. -maximizing BP control, renal US no LORENZO. s/p endaterectomy on 01/09 2/ Diabetes--continue glipizide, lantus for trulicity, SSI and hold Metformin d/t renal failure, diabetic diet. 3/HTN--continue hydralazine 100 bid, norvasc if perisitent high then increase norvasc to 5 bid, adding Nitrop paste 0.5 qid, gaol of SBP 150 (BP now normal) hold lasix/losartan-since patient Patient is NPO for the surgical Intervention. 4/HLD-continue statin. 5/ I don't think patient has cellulitis of the left foot but empiric antibiotic is reasonable. 6/CKD 3 is stable. 7.normocytic anemia seems chronic. At this point he's medically optimized for surgery, Stress stest on 01/04 was normal. In patient need for ongoing hospitalization: defer to surgery Quality Stroke Does the patient have a stroke diagnosis?: No VTE Prior VTE?: No VTE Risk Level:: Surgical - moderate VTE Device Contraindication: Procedure Contraindicated VTE Drug Contraindication: N/A - Med Ordered
[2022-01-11] MEDS: Insulin Lispro 100 UNIT/ML 3 ML VIAL SUBCUT (12:34)
[2022-01-11 13:00] VITALS: O2SAT 95
--- NOTE | 2022-01-11 13:23 | P.DS_ITS ---
DS: Providers Provider Date of Service: 01/11/22 Date of admission: 01/03/22 09:01 Primary care physician: Marline Richard MD Consults: 01/03/22 09:08 Consult to Cardiology Routine Consulting Provider: Brian Leon Reason for consultation: Preoperative risk stratification for femoral endarterectomy Has provider been notified: No Consult to Hospitalist Routine Consulting Provider: Hospitalist Reason For Exam: Diabetes management 01/10/22 09:25 Consult to Nephrology Routine Consulting Provider: Gaudencio Pendleton Reason for consultation: everardo vs ckd /htn uncontrolled Has provider been notified: No DS: Diagnosis Discharge Diagnosis (1) HTN (hypertension): Status: Acute (2) PAD (peripheral artery disease): Status: Acute DS: Summary Hospital Course Hospital Course: Patient was admitted after diagnostic angiogram. He was noted to have worsening of his left lower extremity. He underwent hospital cardiac risk stratification. Once this was accomplished he was then subsequently taken to the OR for left femoral endarterectomy. Postop day 1 he was observed in our ICU. He continue to improve. He was ambulating significantly better. On postop day 2 he was tolerating regular diet up and walking and at the time of my exam he was sitting up at the table eating lunch. He was subsequently discharged. Time Spent with Patient Time attestation: Total time spent providing and/or coordinating discharge services: Discharge coordination time: Greater than 30 minutes Quality: Safe Use of Opioids Does Pt have an Active Cancer Diagnosis on the Problem List?: No Quality: Stroke Does the patient have a stroke diagnosis?: No Physical Exam Vital Signs: Vital Signs: Last Vital Signs Temp 97.2 F 01/11/22 11:11 Pulse 81 01/11/22 11:11 Resp 18 01/11/22 11:11 BP 164/75 H 01/11/22 11:11 Pulse Ox 94 01/11/22 11:11 O2 Del Method 01/11/22 11:11 O2 Flow Rate 2 01/09/22 15:39 Oxygen Flow Rate 0 01/10/22 10:50 BMI result Body Mass Index 29.7 Const: General: cooperative, healthy appearing and no acute distress Orientation/consciousness: oriented to person, oriented to place and oriented to time HEENT: Head: Yes normal to inspection Neck: Carotids: no bruits Chest: Chest palpation & inspection: normal inspection of the chest Resp: Effort & Inspection: normal respiratory effort and able to speak in complete sentences Auscultation: clear to auscultation bilaterally Cardio: Rate: regular rate Heart sounds: S1 normal heart sound present and S2 normal heart sound present GI: Inspection: Yes normal to inspection Skin: Other: Left groin healing well General skin exam: no rashes or lesions noted Wounds: no wounds Neuro: General: oriented to person, oriented to place, oriented to time and CN's II-XI intact bilaterally Extrem: General: Yes normal to inspection, Yes full ROM and Yes no clubbing, cyanosis or edema Psych: Appearance: grossly normal and well kempt Speech and movement: Normal speech and movement present Affect: normal affect DS: Data Data Completed and Pending Completed studies during hospitalization [Text1]: Pending at discharge 01/09/22 12:59 Surgical [PTH] Routine Labs on day of discharge: Laboratory Results - last 24 hr 01/10/22 01/10/22 01/10/22 14:29 16:06 19:11 Hgb Hct Sodium Potassium Chloride Carbon Dioxide Anion Gap BUN Creatinine Estim Creat Clear Calc Estimated GFR POC Glucose 244 H 205 H Random Glucose Calcium Iron TIBC % Saturation Unsat Iron Binding Ferritin Urine Creatinine 150.99 Urine Microalbumin 3163.0 Microalb/Creat Ratio 2094.8 01/11/22 01/11/22 01/11/22 07:26 09:00 09:00 Hgb 8.4 L Hct 25.6 L Sodium 142 Potassium 4.8 Chloride 108 Carbon Dioxide 26 Anion Gap 13 BUN 34 H Creatinine 1.63 H Estim Creat Clear Calc 48.3 Estimated GFR 43 POC Glucose 123 H Random Glucose 133 H D Calcium 8.5 Iron 44 L TIBC 256 % Saturation 17 Unsat Iron Binding 212 Ferritin 164 Urine Creatinine Urine Microalbumin Microalb/Creat Ratio 01/11/22 11:08 Hgb Hct Sodium Potassium Chloride Carbon Dioxide Anion Gap BUN Creatinine Estim Creat Clear Calc Estimated GFR POC Glucose 237 H Random Glucose Calcium Iron TIBC % Saturation Unsat Iron Binding Ferritin Urine Creatinine Urine Microalbumin Microalb/Creat Ratio Discharge Plan Discharge Anticipated Discharge Date/Time: 01/11/22 13:19 Patient Disposition: Home, Self-Care Discharge Diagnosis: Status post femoral endarterectomy Referrals: Marline Richard MD [Primary Care Provider] - 1 Week Discharge Medications: New oxycodone-acetaminophen [Percocet] 5-325 mg tablet 1 tab PO Q8H PRN (Reason: pain) Qty: 14 0RF Rx Instructions: Partial Fill upon patient request. Continued tamsulosin 0.4 mg capsule 0.4 mg PO BEDTIME Qty: 30 2RF insulin degludec [Tresiba FlexTouch U-100] 100 unit/mL (3 mL) insulin pen 25 unit subcut QPM losartan 50 mg tablet 50 mg PO QAM furosemide 40 mg tablet 40 mg PO QAM Januvia 100 mg tablet 100 mg PO DAILY sertraline 50 mg tablet 50 mg PO DAILY fluticasone propionate 50 mcg/actuation spray,suspension 2 spray intranasal QAM PRN (Reason: Nasal Congestion) metformin 1,000 mg tablet 1,000 mg PO BID amlodipine 5 mg tablet 5 mg PO QPM hydralazine 25 mg tablet 25 mg PO BID Rx Instructions: TAKE WITH FOOD metoprolol succinate 100 mg tablet extended release 24 hr 100 mg PO DAILY glipizide 10 mg tablet 20 mg PO BID atorvastatin 80 mg tablet 80 mg PO DAILY povidone-iodine 10 % solution See Rx Instructions .ROUTE .COMPLEX Rx Instructions: APPLY TOPICALLY TO TOES DAILY Discharge Orders: Discharge Order (Routine); Ordered 01/11/22 Ordered By: Lyle Topete Diet: Advance to usual diet Activity on Discharge: As tolerated Stand Alone Forms: Patient Portal Discharge page Activity Restrictions/Additional Instructions: Skin velia was used and you may shower as early as tomorrow. Take it easy today and you may ambulate around the house. Within 24 hours you can resume normal activity You may climb a flight of stairs as tolerated Do not lift anything heavier than a gallon of milk. See Dr. Topete in follow-up in approximately 2 weeks time for staple removal. You should already have an appointment if not please call my office at [phone] Please see above for any change in medications If you notice excessive bleeding from the groin please immediately call my office or return to the emergency room. Care Plan Goals: Ambulate better without difficulty and heel left leg ulcers Health Concerns: Peripheral vascular disease Plan of Treatment: Status post endarterectomy will need surveillance follow-up Assessment: Peripheral vascular disease
--- NOTE | 2022-01-11 16:47 | CONS_ITS ---
DATE OF SERVICE: 01/10/2022 REASON FOR CONSULTATION: I was asked to see patient to assist in evaluation and management of patient's renal dysfunction as reflected by a serum creatinine of 1.7 today, which appears to be his baseline as his creatinine is ranged in the 1.6-1.8 range going back over the past 10 months'. HISTORY OF PRESENT ILLNESS: In summary, the patient is a 66-year-old gentleman with history of diabetes, hypertension, stage-3 chronic kidney disease, hyperlipidemia, who was admitted to the hospital for atherosclerotic nonhealing ulcer, for which he underwent angiogram of the left leg knee and evaluated by Vascular Surgery for peripheral vascular disease interventions, now hopefully help with perfusion to his leg and foot and help with infection control. In summary, he has known chronic kidney disease, baseline creatinine 1.6-1.8, now for the past year, along with multiple other medical problems as noted above. MEDICATIONS: On admission are noted in the records include Norvasc, Lipitor, Lasix, glipizide, hydralazine, losartan, metformin, metoprolol, Zoloft, Januvia, and insulin. CURRENT MEDICATIONS: Noted in the MAR. SOCIAL HISTORY: He is a nonsmoker, nondrinker. No illicit drug use. Denies using NSAIDs. REVIEW OF SYSTEMS: As noted above. PHYSICAL EXAMINATION: VITAL SIGNS: Blood pressure of 130/60, heart rate 70. HEAD: Atraumatic and normocephalic. NECK: Supple. Mucous membranes are moist. LUNGS: Clear. CARDIAC: Regular rate and rhythm without rub. ABDOMEN: Soft, nontender. Good bowel sounds. No CVA tenderness. EXTREMITIES: No edema. Left foot shows some decreased perfusion to the foot, but tells me it is feeling better. LABORATORY DATA: From today, sodium 137, potassium 5.2, chloride 100, bicarb 23, BUN 30, creatinine 0.69. Hemoglobin 9.2, hematocrit 27.5, white blood count of 10.8. Urine studies on the computer date back to April 2020, he had 2+ protein. There is no urine protein creatinine ratio. IMPRESSION: A 66-YEAR-OLD WITH PERIPHERAL VASCULAR DISEASE AND STAGE IIIB CHRONIC KIDNEY DISEASE NOW WITH LEFT FEMORAL ARTERY INTERVENTION TO IMPROVE PERFUSION TO HIS LEFT NONHEALING DIABETIC FOOT ULCER. 1. Stage IIIB chronic kidney disease, most consistent in diabetic, hypertensive, renal disease. He is on an an ARB, which should provide added renal protection. At some point, we would like to place him on SGOT 2 inhibitor [address]. He may be candidate for Kerendia as well. Both these latter 2 medications can be added as outpatient in a controlled fashion. 2. Anemia. 3. Diabetes. 4. Hypertension, controlled. 5. Peripheral vascular disease, status post angiographic intervention. DISCUSSION: The patient did receive IV contrast exposure with his angiographic procedure, for which his renal function remains stable. Suggestions, at this time include, continue on routine medications. Follow his urine output and renal function. We will obtain urine studies to see what degree of proteinuria he has. We will follow the patient with the team. ADDENDUM: I will schedule him for an outpatient followup to remark his chronic kidney disease as we manages. MD LYNN Ortiz/PILO / [phone]
== END 2022-01-11 15:33 | disposition home or self-care (01) | DRG 254 ==
LOC: HO.SSSA 09:07 → HO.S3 09:41 → HO.ICU 01-09 15:06 → HO.IMC 01-10 09:23 → HO.ICU 01-10 09:57 → HO.S3 01-10 16:02
PROVIDERS: Internal Medicine Cardiovascular Disease; Internal Medicine Nephrology; Admitting Provider Surgery Vascular Surgery; PCP General Practice; Responsible Provider Internal Medicine; Visit Provider Surgery Vascular Surgery
PROC: B41DZZZ Fluoroscopy of Aorta and Bilateral Lower Extremity Arteries (ICD-10-PCS; principal; 2022-01-03 07:30)
PROC: 04CL0ZZ Extirpation of Matter from Left Femoral Artery, Open Approach (ICD-10-PCS; principal; 2022-01-09 10:10)
DX: E11.51 Type 2 diabetes mellitus with diabetic peripheral angiopathy without gangrene (principal); E11.69 Type 2 diabetes mellitus with other specified complication; E78.5 Hyperlipidemia, unspecified; I70.249 Atherosclerosis of native arteries of left leg with ulceration of unspecified site; I12.9 Hypertensive chronic kidney disease with stage 1 through stage 4 chronic kidney disease, or unspecified chronic kidney disease; N18.32 Chronic kidney disease, stage 3b; D63.1 Anemia in chronic kidney disease; E11.22 Type 2 diabetes mellitus with diabetic chronic kidney disease; L97.529 Non-pressure chronic ulcer of other part of left foot with unspecified severity; Z20.822 Contact with and (suspected) exposure to COVID-19; Z87.891 Personal history of nicotine dependence; Z79.4 Long term (current) use of insulin; Z79.51 Long term (current) use of inhaled steroids; Z79.84 Long term (current) use of oral hypoglycemic drugs; Z79.899 Other long term (current) drug therapy
CPT/HCPCS: 36246; 36415; 75630; 76775; 76937; 78452; 80048; 80053; 82043; 82565; 82728; 82947; 83540; 83735; 84484; 84520; 85014; 85018; 85025; 86850; 86900; 86901; 86923; 87635; 88304; 88311; 93005; 93017; 93975; 99152; 99153; A9500; C1768; C1769; C1887; J0280; J0690; J2250; J2270; J2370; J2785; J2795; J3010; Q9967

== ENCOUNTER 2022-01-19 09:34 | Emergency (ER) | payer OTHER, SELFPAY ==
--- NOTE | ~2022-01-19 | US_ITS ---
EXAMINATION: ULTRASOUND ARTERIAL DUPLEX LOWER EXTREMITY LEFT CLINICAL INFORMATION: Increased pain and swelling. COMPARISON: 12/05/2021 left lower extremity arterial ultrasound. TECHNIQUE: Multiple 2-D grayscale and duplex Doppler ultrasound images of the arteries of the left lower extremity were obtained. FINDINGS: Peak systolic arterial velocities are as follows in centimeters per second: Common femoral: 151 Profunda femoral: 148 Proximal superficial femoral: 151 Mid superficial femoral: 218 Distal superficial femoral: 169 Popliteal: 99 Posterior tibial: 107 Peroneal: No detectable arterial waveforms. No left popliteal cyst. Mild to moderate subcutaneous edema in the left calf. US/US arterial duplex LE LT IMPRESSION: No detectable arterial waveforms in the left peroneal artery suggesting high-grade stenosis of this arterial segment. The remainder of the lower extremity arteries are patent.
[2022-01-19 10:03] VITALS: BP 173/58; PULSE 80; RESP 18; TEMP 36.9; O2SAT 97; BMI 28.8
--- NOTE | 2022-01-19 12:45 | ED.EXTPRO ---
HPI - Extremity Problem General Chief complaint: Extremity Problem Stated complaint: L leg swelling/Surgery T-1week Time Seen by Provider: 01/19/22 11:00 Source: patient Mode of arrival: EMS History of Present Illness HPI Narrative: 66-year-old male status post endarterectomy on January 10 ( 9 days ago) presents to the emergency department today complaining of increased pain in the lower leg. The patient states the pain has gotten worse over the past several days, is constant, and is nonradiating. The patient also complains of some redness and some darkened areas of skin, but states that there has not been any worsening of these areas since the surgery. MD Complaint: extremity pain Related Data Home Medications Medication Instructions Recorded Confirmed amlodipine 5 mg tablet 5 mg PO QPM 04/27/21 01/03/22 atorvastatin 80 mg tablet 80 mg PO DAILY 04/27/21 01/03/22 fluticasone propionate 50 2 spray intranasal QAM PRN Nasal 04/27/21 01/03/22 mcg/actuation nasal Congestion spray,suspension furosemide 40 mg tablet 40 mg PO QAM 04/27/21 01/03/22 glipizide 10 mg tablet 20 mg PO BID 04/27/21 01/03/22 hydralazine 25 mg tablet 25 mg PO BID 04/27/21 01/03/22 losartan 50 mg tablet 50 mg PO QAM 04/27/21 01/03/22 metformin 1,000 mg tablet 1,000 mg PO BID 04/27/21 01/03/22 metoprolol succinate 100 mg 100 mg PO DAILY 04/27/21 01/03/22 tablet,extended release 24 hr sertraline 50 mg tablet 50 mg PO DAILY 04/27/21 01/03/22 sitagliptin 100 mg tablet (Januvia) 100 mg PO DAILY 04/27/21 01/03/22 povidone-iodine 10 % topical See Rx Instructions .Route .COMPLEX 12/28/21 01/03/22 solution insulin degludec 100 unit/mL (3 25 unit subcut QPM 01/03/22 01/03/22 mL) subcutaneous pen (Tresiba FlexTouch U-100 insulin) Previous Rx's Medication Instructions Recorded tamsulosin 0.4 mg capsule 0.4 mg PO BEDTIME #30 caps 05/09/20 oxycodone-acetaminophen 5 mg-325 1 tab PO Q8H PRN pain #14 tabs 01/11/22 mg tablet (Percocet) Allergies Allergy/AdvReac Type Severity Reaction Status Date / Time No Known Allergies Allergy Verified 12/28/21 11:17 [No Known Allergies*] Review of Systems Constitutional: Constitutional: Denies chills and Denies fever(s) Eyes: Eyes: Reports no additional eye complaints ENT: Reports system reviewed and no additional complaints, except as documented Cardiovascular: Cardiovascular: Denies chest pain, Denies lightheadedness, Denies Loss of Consciousness and Denies dyspnea Respiratory: Respiratory: Denies cough and Denies dyspnea Gastrointestinal: Gastrointestinal: Reports no additional gastrointestinal complaints Genitourinary: Genitourinary: Reports no additional male genitourinary complaints Musculoskeletal: Musculoskeletal: Denies numbness, Reports stiffness and Denies tingling Integumentary/Breasts: Skin/Breast: Reports as per HPI Neurologic: Denies Abnormal speech present, Denies focal weakness, Denies numbness and Denies tingling PMFSH Past Medical History Medical History Diabetes High cholesterol HTN (hypertension) Hyperlipidemia associated with type 2 diabetes mellitus Kidney disease Type 2 diabetes mellitus Surgical History H/O shoulder surgery History of amputation of right forefoot Social History Social History Household Members: None Housing: Apartment Do you presently have visiting nurse or other home services: No Patient Tobacco Use Status: Former Tobacco user Substance Use Type: Crack/Cocaine Advance Directives: No Advance Directives Information Provided: Yes service: No Current occupational status: retired Physical Exam Vital Signs: Vital Signs: Last Vital Signs Temp 98.4 F 01/19/22 15:53 Pulse 75 01/19/22 15:53 Resp 18 01/19/22 15:53 BP 160/55 H 01/19/22 15:53 Pulse Ox 96 01/19/22 15:53 O2 Del Method 01/19/22 15:53 BMI result Body Mass Index 28.8 Afebrile. Systolic blood pressure slightly Const: General: cooperative and acute distress mild Nutritional Appearance: obese Orientation/consciousness: patient oriented x3 HEENT: Head: Yes normal to inspection, Yes normocephalic and Yes atraumatic Ears: hearing grossly normal bilaterally and external ears normal General nose exam: Normal external nose present Face and sinus: Yes normal facial exam Eyes: Conjunctivae: conjunctivae normal Sclerae: sclerae normal Pupils: Equal, round and reactive pupils present EOM: EOMs intact bilaterally Neck: Neck: Yes normal visual inspection and Yes full ROM Chest: Chest palpation & inspection: normal inspection of the chest Resp: Effort & Inspection: normal respiratory effort, no cough and no stridor Cardio: Rate: regular rate Rhythm: regular rhythm GI: Inspection: Yes normal to inspection and No distended Back/Spine/Pelvis: Cervical Spine: normal cervical lordosis and cervical ROM normal Skin: General skin exam: erythema and eschar Wounds: amputation site right foot Neuro: General: patient oriented x3 Cranial nerves: Yes CN's II-XII intact bilaterally and Yes Equal, round and reactive pupils present Cognition (Neuro): normal cognition Speech: No Abnormal speech present Extrem: Left lower extremity: edema Ankle/foot/toe images: 1. Erythema 2. 3. superficial necrosis Course Consultations Consultation #1: Dr. Topete. agrees with laboratory studies and arterial ultrasound of the left lower extremity Time: 13:00 MDM - Extremity (Nontraumatic) MDM Narrative Medical decision making narrative: 66-year-old male status post left endarterectomy on the 10 of January presents to the emergency department today with increased pain in the foot. . Appearance of the foot is essentially unchanged per the patient. Chemistry pending at this time, CBC shows a chronic anemia. radiologist's interpretation of the ultrasound is pending at this time. Medical Records Attestation: I reviewed the patient's medical records. Lab Data Attestation: I reviewed the patient's lab results. Lab results narrative: Significant anemia, not new Result diagrams: 01/19/22 15:52 01/19/22 15:52 Labs: Lab Results 01/19/22 01/19/22 Range/Units 14:26 15:52 WBC 10.8 (4.8-10.8) X10*3/uL RBC 2.66 L (4.60-5.80) X10*6/uL Hgb 8.2 L (14.0-18.0) g/dl Hct 25.2 L (42.0-52.0) % MCV 94.7 (80.0-98.0) fL MCH 30.8 (27.0-33.0) pg MCHC 32.5 (31.0-36.0) g/dl RDW 11.9 (11.0-16.0) % Plt Count 301 (160-400) X10*3/uL MPV 9.6 (9.4-12.4) fL Immature Gran % (Auto) 0.3 (0.0-0.4) % Neut % (Auto) 78.2 H (45-73) % Lymph % (Auto) 8.9 L (20-40) % Wilkinson % (Auto) 11.9 H (2-11) % Eos % (Auto) 0.4 (0-4) % Baso % (Auto) 0.3 (0-2) % Lymph # (Auto) 1.0 L (1.2-4.9) X10*3/uL Wilkinson # (Auto) 1.3 H (0.1-1.2) X10*3/uL Eos # (Auto) 0.0 (0.0-0.4) X10*3/uL Baso # (Auto) 0.0 (0.0-0.2) X10*3/uL Abs Immat Gran (auto) 0.03 (0.00-0.03) X10*3/uL Absolute Neuts (auto) 8.4 H (2.0-8.3) x10*3/uL Absolute Nucleated RBC 0.000 (0.0-0.012) X10*3/uL Nucleated RBC % (auto) 0.0 (0.0-0.2) /100WBC POC Glucose 52 L* (60-115) mg/dL Discharge Plan Discharge Clinical Impression: Lower extremity edema Prescriptions: No Action tamsulosin 0.4 mg capsule 0.4 mg PO BEDTIME Qty: 30 2RF insulin degludec [Tresiba FlexTouch U-100] 100 unit/mL (3 mL) insulin pen 25 unit subcut QPM oxycodone-acetaminophen [Percocet] 5-325 mg tablet 1 tab PO Q8H PRN (Reason: pain) Qty: 14 0RF Rx Instructions: Partial Fill upon patient request. losartan 50 mg tablet 50 mg PO QAM furosemide 40 mg tablet 40 mg PO QAM Januvia 100 mg tablet 100 mg PO DAILY sertraline 50 mg tablet 50 mg PO DAILY fluticasone propionate 50 mcg/actuation spray,suspension 2 spray intranasal QAM PRN (Reason: Nasal Congestion) metformin 1,000 mg tablet 1,000 mg PO BID amlodipine 5 mg tablet 5 mg PO QPM hydralazine 25 mg tablet 25 mg PO BID Rx Instructions: TAKE WITH FOOD metoprolol succinate 100 mg tablet extended release 24 hr 100 mg PO DAILY glipizide 10 mg tablet 20 mg PO BID atorvastatin 80 mg tablet 80 mg PO DAILY povidone-iodine 10 % solution See Rx Instructions .ROUTE .COMPLEX Rx Instructions: APPLY TOPICALLY TO TOES DAILY
--- NOTE | 2022-01-19 13:32 | PC.NURSE ---
PT reports increase left leg swelling since having a procedure done last week. Reports 10/10 pain, spasms, and painful to touch. Skin is warm to touch, + posterior tibial pulse via doppler.
[2022-01-19 14:31] LABS: Glucose, Whole Blood 52 mg/dL (60-115)
[2022-01-19 15:53] VITALS: BP 160/55; PULSE 75; RESP 18; TEMP 36.9; O2SAT 96
[2022-01-19 16:01] LABS: MANUAL DIFF FLAG NO
[2022-01-19 16:03] LABS: Basophils Percent Auto 0.3 % (0-2); Eosinophils Percent Auto 0.4 % (0-4); Hematocrit 25.2 % (42.0-52.0); Hemoglobin 8.2 g/dl (14.0-18.0); Imm Gran Abs Auto 0.03 X10*3/uL (0.00-0.03); Imm Gran Pct Auto 0.3 % (0.0-0.4); Lymphocytes Percent Auto 8.9 % (20-40); Mean Corpuscular HGB Conc 32.5 g/dl (31.0-36.0); Mean Corpuscular Hemoglobin 30.8 pg (27.0-33.0); Mean Corpuscular Volume 94.7 fL (80.0-98.0); Mean Platelet Volume 9.6 fL (9.4-12.4); Monocytes Absolute Auto 1.3 X10*3/uL (0.1-1.2); Monocytes Percent Auto 11.9 % (2-11); Neutrophils Absolute Auto 8.4 x10*3/uL (2.0-8.3); Neutrophils Percent Auto 78.2 % (45-73); Platelet Count 301 X10*3/uL (160-400); Red Blood Count 2.66 X10*6/uL (4.60-5.80); Red Cell Distribution Width 11.9 % (11.0-16.0); White Blood Count 10.8 X10*3/uL (4.8-10.8)
[2022-01-19 16:23] LABS: Anion Gap 17 (12-20); Blood Urea Nitrogen 30 mg/dL (9-16); Calcium 8.7 mg/dL (8.4-10.2); Carbon Dioxide 25 mmol/L (22-29); Chloride 103 mmol/L (96-108); Creatinine Clr Calc Pharmacy 45.1; Estimated Glomerular Filt Rate 40; Glucose Random 139 mg/dL (60-115); Potassium 4.1 mmol/L (3.3-5.1); Sodium 141 mmol/L (135-145)
[2022-01-19 17:55] VITALS: BP 188/74; PULSE 70; RESP 18; TEMP 36.7; O2SAT 96
== END 2022-01-19 18:31 | disposition home or self-care (01) ==
PROVIDERS: Emergency Medicine; Emergency Provider Student in an Organized Health Care Education/Training Program; PCP General Practice
DX: R60.0 Localized edema (principal); M79.605 Pain in left leg; Z79.899 Other long term (current) drug therapy
CPT/HCPCS: 36415; 80048; 82947; 85025; 93926; 99283; 99284

== ENCOUNTER → 2022-01-23 14:12 | Outpatient (BNVA) | payer OTHER, SELFPAY | PROVIDERS: PCP General Practice; Visit Provider Surgery Vascular Surgery | DX: I73.9 Peripheral vascular disease, unspecified (principal) | CPT/HCPCS: 99212 ==

== ENCOUNTER 2022-01-24 08:57 | Inpatient (IN) | payer OTHER, SELFPAY ==
[2022-01-24] VITALS (13 sets, daily range): BP systolic 160–187; BP diastolic 57–86; PULSE 69–74; RESP 16–19; TEMP 36.6–37.1; O2SAT 93–96; BMI 28.8
--- NOTE | ~2022-01-24 | XR_ITS ---
EXAMINATION: XR CHEST CLINICAL INFORMATION: Shortness of breath COMPARISON: Chest radiograph 12/19/2021 TECHNIQUE: Frontal view of the chest was obtained. FINDINGS: The heart is enlarged. Compared to the prior study, there is a slight increase in interstitial markings which could be secondary to CHF. There is mild upper zone redistribution as well. Tiny right pleural effusion cannot be excluded. Again noted are suture anchors in the left humerus. XR/XR chest 1V IMPRESSION: Cardiomegaly with mild CHF.
[2022-01-24] MEDS: 0.9 % Sodium Chloride 1,000 ML 100 ML IVCONT ×2 (07:31→15:32)
[2022-01-24 07:33] LABS: Glucose, Whole Blood 112 mg/dL (60-115)
--- NOTE | 2022-01-24 09:02 | P.OP_ITS ---
Operative Note Operative Note Date of Service: 01/24/22 Narrative: Angiogram report from [facility] Preoperative diagnosis: Atherosclerosis of left lower extremity with nonhealing ulcer Postoperative diagnosis: Same Procedure: 1. Ultrasound-guided right common femoral access 2. Aortogram with left lower extremity runoff Surgeon:Lyle Topete M.D., FACS, RPVI Waiter/Waitress Head:None Anesthesia: Local with moderate conscious sedation. Total intraservice moderate sedation time was 25 minutes. I monitored the patient's level of consciousness and physiologic status continuously throughout the procedure. Specimens:none Drains:none Estimated blood loss: Less than 10 ml Implant: None Indications: Pleasant 66-year-old gentleman with a prior left femoral endarterectomy presented the [facility] see room with a tibial artery occlusion. He now presents for endovascular intervention. The patient has signed the informed consent after reviewing risks, complications, benefits, and alternatives previously discussed with the patient. The patient was given the opportunity to ask any additional questions or voice any concerns. All questions were answered to the patient's satisfaction. Procedure in detail: Patient was brought to the angiography suite prior to [facility] a time-out was called for patient identification and site verification. Bilateral groins were prepped and draped in the standard surgical fashion. Under ultrasound guidance right common femoral was punctured with micro puncture needle and wire. Subsequently a precision 4 [place] sheath was then placed. Bentson wire was advanced to the level of the aorta. 4 [place] Flush catheter was brought up and parked at the level of the renal arteries. Aortogram was then undertaken. Catheter was brought down to the level of the iliac bifurcation. Iliacs were subsequently imaged. Catheter was then brought in up and over to the left side SFA. Runoff study was then undertaken. No intervention was indicated. Catheter wire sheath was removed. Direct pressure was held for 10 minutes. Patient tolerated the procedure well. Interpretation of films: 1. Ultrasound demonstrates appropriate femoral puncture. Image of which was saved. 2. Aortogram demonstrates appropriate caliber aorta. Minimal disease. Appropriate take-off of the renals. 3. Iliac images demonstrate no significant disease 4. Left Leg Common femoral artery: Patent with clear patch plasty Profundus Femoris: No significant disease Superficial femoral artery: Patent with mild disease at Karl's canal not flow limiting Popliteal artery (p1,p2,p3): Patent Anterior tibial artery: Patent with 2-3 separate areas of mild to moderate stenosis Peroneal artery: Patent Posterior tibial artery: Patent Dorsalis pedis/plantar arch: Present but incomplete Conclusion: 1. [] 2. Anticoagulation status: [] This note is constructed using voice recognition software. While every effort has been made to ensure accuracy, repair electric motor assembler errors may have been included. Thank you for allowing me to participate in the care of your patient. Yours sincerely, Lyle Topete MD, FACS, R.P.V.I.
[2022-01-24] MEDS: Morphine Sulfate 4 MG/ML CARTRIDGE IVPUSH (09:23)
--- NOTE | 2022-01-24 10:40 | PHA.MEDREC ---
Pharmacy Consult ? Medication Reconciliation Pharmacy has completed the medication reconciliation. Patient is a [facility] patient at [facility] pharmacy. No changes since last admission, discharged 01/10/22. Mandi Kilogre, AngelesD
[2022-01-24 12:23] LABS: Glucose, Whole Blood 124 mg/dL (60-115)
--- NOTE | 2022-01-24 14:46 | MHC.CM.PN ---
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 PT VERIFIES PCP IS [facility] MOON X2 AND 1 BOOSTER, PT EDUCATED ON AND DECLINES TO COMPLETE A HCP AT THIS TIME. ANTIC HOME W/RESUMP OF BID TERRITORY SERVICE REPRESENTATIVE HRS AND DTR [facility] FOR TRANSPORT.
[2022-01-24] MEDS: oxyCODONE HCl Immed Release 5 MG TABLET PO ×2 (15:19→19:24)
--- NOTE | 2022-01-24 15:45 | PM.IMCN ---
History of Present Illness Data of Consult Service Date: 01/24/22 Primary Care Provider: Marline Richard MD HPI Reason for consult: Nonhealing toe ulcer A 66 years old male with PMH of DM, HTN, PAD among others who presents to the hospital as a vascular surgery patient for left great toe nonhealing ulcer. He reports that his left great toe ulcer is not healing and a dose turning black with no improvement. [facility] to Dr. Yoselyn rosales who sent him over to the hospital for arterial angiogram with possible angioplasty and stent placement. Admitted for further evaluation and treatment. Review of Systems Review of Systems: No fever, chills or weakness No chest pain, palpitation No shortness of breath or coughing No abdominal pain, nausea or vomiting No urinary symptoms Black discoloration of the left big did toe PMFSH Medical History Diabetes High cholesterol HTN (hypertension) Hyperlipidemia associated with type 2 diabetes mellitus Kidney disease Type 2 diabetes mellitus Surgical History H/O shoulder surgery History of amputation of right forefoot Social History Household Members: None Housing: Apartment Do you presently have visiting nurse or other home services: Yes ([employer]) Patient Tobacco Use Status: Former Tobacco user Use of substances other than those prescribed or required for medical reasons: No Substance Use Type: Crack/Cocaine Currently Displaying Signs/Symptoms of Drug Intoxication Withdrawal: No Any prior treatment program specific to substance use: No Have you been hit, kicked, punched, or otherwise hurt by someone within the past year? If so, by whom?: No Do you feel safe in your current relationship?: No Current Relationship Is there a partner from a previous relationship who is making you feel unsafe now?: No Are you made to feel afraid or neglected: No Advance Directives: No Advance Directives Information Provided: Yes Do you have thoughts of harming others: None Do you have a plan to hurt others: No Plan Recently lost weight without trying: No Nutrition Risks: No Nutritional Risk service: No Current occupational status: retired Meds Allergies Allergy/AdvReac Type Severity Reaction Status Date / Time No Known Allergies Allergy Verified 01/24/22 06:12 [No Known Allergies*] Active Medications: Current Medications Acetaminophen (Acetaminophen 325 Mg Tablet) 650 mg PO Q6H PRN PRN Reason: Pain, Mild (Pain Scale 1-3) Heparin Sodium (Porcine) (Heparin Sodium,Porcine 5,000 Unit/Ml Vial) 5,000 unit SUBCUT Q8H [facility] Last Admin: 01/24/22 12:03 Dose: Not Given Sodium Chloride (Ns) 1,000 mls @ 100 mls/hr IVCONT .Q10H [facility] Last Admin: 01/24/22 15:32 Dose: 100 mls/hr Morphine Sulfate (Morphine Sulfate 4 Mg/Ml Cartridge) 4 mg IVPUSH Q2H PRN; Protocol PRN Reason: Pain, Severe (Pain Scale 7-10) Last Admin: 01/24/22 09:23 Dose: 4 mg Morphine Sulfate (Morphine Sulfate 2 Mg/Ml Cartridge) 2 mg IVPUSH Q4H PRN; Protocol PRN Reason: Pain, Severe (Pain Scale 7-10) Oxycodone HCl (Oxycodone Hcl Immed Release 5 Mg Tablet) 5 mg PO Q4H PRN PRN Reason: Pain, Moderate (Pain Scale 4-6 Last Admin: 01/24/22 15:19 Dose: 5 mg Oxycodone HCl (Oxycodone Hcl Immed Release 5 Mg Tablet) 5 mg PO Q4H PRN PRN Reason: Pain, Moderate (Pain Scale 4-6 Sodium Chloride (0.9 % Sodium Chloride Flush 3 Ml Syringe) 3 ml IVFLUSH QSHIFT [facility] Last Admin: 01/24/22 15:16 Dose: Not Given Home Medications Medication Instructions Recorded Confirmed Last Taken Type amlodipine 5 mg tablet 5 mg PO QPM 04/27/21 01/24/22 01/02/22 History atorvastatin 80 mg tablet 80 mg PO DAILY 04/27/21 01/24/22 01/02/22 History fluticasone propionate 50 2 spray intranasal QAM PRN Nasal 04/27/21 01/24/22 01/02/22 History mcg/actuation nasal Congestion spray,suspension furosemide 40 mg tablet 40 mg PO QAM 04/27/21 01/24/22 01/02/22 History glipizide 10 mg tablet 20 mg PO BID 04/27/21 01/24/22 01/02/22 History hydralazine 25 mg tablet 25 mg PO BID 04/27/21 01/24/22 01/02/22 History losartan 50 mg tablet 50 mg PO QAM 04/27/21 01/24/22 01/02/22 History metformin 1,000 mg tablet 1,000 mg PO BID 04/27/21 01/24/22 12/31/21 History metoprolol succinate 100 mg 100 mg PO DAILY 04/27/21 01/24/22 01/02/22 History tablet,extended release 24 hr sertraline 50 mg tablet 50 mg PO DAILY 04/27/21 01/24/22 01/02/22 History sitagliptin 100 mg tablet (Januvia) 100 mg PO DAILY 04/27/21 01/24/22 01/02/22 History povidone-iodine 10 % topical See Rx Instructions .Route .COMPLEX 12/28/21 01/24/22 01/02/22 History solution insulin degludec 100 unit/mL (3 25 unit subcut QPM 01/03/22 01/24/22 01/02/22 History mL) subcutaneous pen (Tresiba FlexTouch U-100 insulin) Physical Exam Vital Signs and Narrative: Vital Signs: Last Vital Signs Temp 98.0 F 01/24/22 15:14 Pulse 72 01/24/22 15:14 Resp 18 01/24/22 15:14 BP 187/85 H 01/24/22 15:14 Pulse Ox 94 01/24/22 15:14 O2 Del Method 01/24/22 15:14 BMI result Body Mass Index 28.8 Const: Other: Constitutional : Awake, interactive, not in distress Neck : Normal inspection, Supple Cardiovascular : RRR, no JVP, no lower extremity edema Respiratory : good bilateral air entry, no crackles, wheezes or rhonchi Gastrointestinal: soft, lax, Normal bowel sounds, Non tender Skin : Warm, Dry, dry also with black discoloration of the great toe of the left leg with no drainage, no significant surrounding erythema or tenderness Neurological : Alert & oriented x3, No focal deficit , CN 2-12 within normal Results Labs Labs: Laboratory Results - last 24 hr 01/24/22 01/24/22 07:29 12:19 POC Glucose 112 124 H Assessment and Plan (1) Nonhealing ulcer of left lower extremity: Status: Acute (2) Dry gangrene: Status: Acute Plan A 66 years old male with PMH of DM, HTN, PAD among others who presents to the hospital as a vascular surgery patient for left great toe nonhealing ulcer. Nonhealing ulcer, dry gangrene left large toe Vascular surgery following Start baby aspirin Continue atorvastatin IV vancomycin Seems to be heading to were amputation Type 2 diabetes Insulin, diabetic diet Decrease Lantus to 10 units HTN Continue losartan, hydralazine, metoprolol and amlodipine HLD Continue atorvastatin DVT PPX Heparin Thank you for the consult, will continue to monitor the patient with you
[2022-01-24 16:02] LABS: Glucose, Whole Blood 156 mg/dL (60-115)
[2022-01-24] MEDS: Aspirin Enteric Coated 81 MG TABLET.DR PO (16:17)
[2022-01-24] MEDS: Insulin Lispro 100 UNIT/ML 3 ML VIAL SUBCUT (16:17)
[2022-01-24] MEDS: Heparin Sodium,Porcine 5,000 UNIT/ML VIAL 5000 UNIT SUBCUT (16:17)
[2022-01-24] MEDS: amLODIPine Besylate 5 MG TABLET PO (16:17)
[2022-01-24] MEDS: Metoprolol Succinate ER 100 MG TAB.ER.24H PO (16:17)
--- NOTE | 2022-01-24 16:28 | PC.NURSE ---
pt BP elevated. Hospitalist consulted. BP meds ordered and given. Pulses to feet and groin via doppler bilaterally. Skin glue to right groin intact, no hematoma. Voiding in urinal
[2022-01-24 16:53] LABS: Creatinine Clr Calc Pharmacy 50.7; Estimated Glomerular Filt Rate 46
--- NOTE | 2022-01-24 17:43 | PHA.PROG ---
Admission Date/Time: January 24, 2022 08:57 Indication: Weight in k.183 kg Adjusted body weight in K.513 [place] body weight in K.4 Obesity Dosing Indication % IBW: Serum Creatinine - Last 168 Hours 01/24/22 16:18 Creatinine 1.53 H Estimated CrCl and GFR - Last 168 Hours 01/24/22 16:18 Estim Creat Clear Calc 50.7 Estimated GFR 46 Vancomycin Loading Dose: 2000 MG Current Vancomycin Dosing Regimen: 1000 MG Q24 Vancomycin Monitoring using AUC goal of 400 - 600 range with trough as surrogate marker: Expected AUC of 514 after 3rd dose Date and Time for next Vancomycin Level to be drawn: 01/27 at 1500 Pharmacist Comments on Vancomycin Plan: Creatinine is slightly elevated but reduced from 5 days ago. Dosing of 1000 mg q24 and reassess scr before 4th dose. Vancomycin dosing will take advantage of [employer] as a clinical decision support tool that uses Bayesian modeling to calculate individual patient's pharmacokinetic parameters and forecast the patient's drug concentration time course with the target goal AUC 24 range of 400 - 600 mg/L/hr.
[2022-01-24 19:05] LABS: Glucose, Whole Blood 145 mg/dL (60-115)
[2022-01-24] MEDS: Tamsulosin HCL 0.4 MG CAPSULE PO (19:24)
[2022-01-24] MEDS: Insulin Glargine,Hum.rec.anlog 100 UNIT/ML 10 ML VIAL 10 UNIT SUBCUT (19:24)
[2022-01-24] MEDS: Acetaminophen 325 MG TABLET 650 MG PO (19:24)
[2022-01-24] MEDS: hydrALAZINE HCl 25 MG TABLET PO (19:24)
[2022-01-25] VITALS (13 sets, daily range): BP systolic 168–199; BP diastolic 68–93; PULSE 64–88; RESP 16–18; TEMP 36.3–37.4; O2SAT 93–96; BMI 28.8
--- NOTE | 2022-01-25 00:17 | PM.EVENT ---
Event Note Date of Service: 01/25/22 Event Note: Became hypoxic, satting 88% on room air. Complaining of shortness of breath. He was placed on 2 L of oxygen with improvement in his oxygenation to 93-94%. Will obtain chest x-ray, troponin, and BNP
[2022-01-25] MEDS: Heparin Sodium,Porcine 5,000 UNIT/ML VIAL 5000 UNIT SUBCUT ×2 (00:20→16:18)
[2022-01-25] MEDS: oxyCODONE HCl Immed Release 5 MG TABLET PO ×4 (00:24→21:56)
[2022-01-25 01:46] LABS: B Type Natriuretic Peptide 459 pg/mL (<100)
[2022-01-25] MEDS: Furosemide 40 MG/4 ML VIAL IVPUSH (02:54)
[2022-01-25 05:44] LABS: MANUAL DIFF FLAG NO
[2022-01-25 05:50] LABS: Basophils Percent Auto 0.5 % (0-2); Eosinophils Absolute Auto 0.2 X10*3/uL (0.0-0.4); Eosinophils Percent Auto 1.8 % (0-4); Hemoglobin 7.3 g/dl (14.0-18.0); Imm Gran Abs Auto 0.04 X10*3/uL (0.00-0.03); Imm Gran Pct Auto 0.5 % (0.0-0.4); Lymphocytes Percent Auto 11.1 % (20-40); Mean Corpuscular HGB Conc 31.7 g/dl (31.0-36.0); Mean Corpuscular Hemoglobin 30.5 pg (27.0-33.0); Mean Corpuscular Volume 96.2 fL (80.0-98.0); Mean Platelet Volume 9.6 fL (9.4-12.4); Monocytes Percent Auto 11.8 % (2-11); Neutrophils Absolute Auto 6.4 x10*3/uL (2.0-8.3); Neutrophils Percent Auto 74.3 % (45-73); Platelet Count 437 X10*3/uL (160-400); Red Blood Count 2.39 X10*6/uL (4.60-5.80); Red Cell Distribution Width 12.2 % (11.0-16.0); White Blood Count 8.6 X10*3/uL (4.8-10.8)
[2022-01-25 05:54] LABS: INTERNATIONAL NORM RATIO 1.1 (0.9-1.1); Prothrombin Time 12.9 SEC (10.0-13.1)
[2022-01-25 06:02] LABS: Anion Gap 15 (12-20); Blood Urea Nitrogen 29 mg/dL (9-16); Calcium 8.8 mg/dL (8.4-10.2); Carbon Dioxide 26 mmol/L (22-29); Chloride 108 mmol/L (96-108); Creatinine Clr Calc Pharmacy 50.7; Creatinine Clr Calc Pharmacy 51.3; Estimated Glomerular Filt Rate 46; Glucose Random 89 mg/dL (60-115); Potassium 4.9 mmol/L (3.3-5.1); Sodium 144 mmol/L (135-145)
[2022-01-25] MEDS: Acetaminophen 325 MG TABLET 650 MG PO ×2 (06:40→21:56)
--- NOTE | 2022-01-25 07:24 | HE.PHANOTE ---
Vancomycin Dosing Addedum Renal function stable. Continue current regimen. Expected AUC 449 with a trough of 14.2. Angeles LinderD
[2022-01-25 07:48] LABS: Glucose, Whole Blood 88 mg/dL (60-115)
[2022-01-25] MEDS: Atorvastatin Calcium 80 MG TABLET PO (08:30)
[2022-01-25] MEDS: Furosemide 40 MG TABLET PO (08:30)
[2022-01-25] MEDS: hydrALAZINE HCl 25 MG TABLET PO ×2 (08:30→19:50)
[2022-01-25] MEDS: Metoprolol Succinate ER 100 MG TAB.ER.24H PO (08:30)
[2022-01-25] MEDS: Losartan Potassium 50 MG TABLET PO (08:30)
[2022-01-25] MEDS: Sertraline HCL 50 MG TABLET PO (08:30)
[2022-01-25] MEDS: 0.9 % Sodium Chloride Flush 3 ML SYRINGE IVFLUSH ×3 (08:33→19:52)
[2022-01-25 08:44] LABS: Iron 23 mcg/dL (45-160); Percent Iron Saturation 12 % (15-50); Total Iron Binding Capacity 188 mcg/dL (228-428); Unsaturated Iron Binding 165 ug/dL
--- NOTE | 2022-01-25 08:55 | HO.VASCPN ---
Subjective Subjective Date of Service: 01/25/22 Patient reports: no new complaints and still having pain Interval history: Patient seen and examined. Postop day 1 status post angiogram. Continues to have this nonhealing left great toe ulcer which is necrotic. He is in a fair amount of pain. He was admitted yesterday. He has been seen by the hospitalist team as well. Physical Exam Vital Signs: Vital Signs: Last Vital Signs Temp 97.4 F 01/25/22 07:29 Pulse 71 01/25/22 07:29 Resp 18 01/25/22 07:29 BP 193/88 H 01/25/22 07:29 Pulse Ox 95 01/25/22 07:29 O2 Del Method 01/25/22 07:29 O2 Flow Rate 2 01/25/22 04:00 BMI result Body Mass Index 28.8 Skin: Other: Left great toe necrotic with surrounding cellulitis Progress Note: A&P Assessment and plan (1) Nonhealing ulcer of left lower extremity: Status: Acute Assessment and Plan: In short patient has done well with endovascular angiogram. No intervention was required as flow appears to be doing relatively well. He does have a necrotic left great toe. The left great toe will require amputation. This was discussed in detail with the patient and he is in agreement. We will schedule for today as OR schedule allows. Thank you to the hospitalist team for their assistance in his care. If there are any questions or concerns please do not hesitate to contact us. Time Spent With Patient Time: Total time spent is greater than 50% in coordination of care (as documented) at patient's floor/unit and/or counseling patient: Procedures Date of Service Date of Service: 01/25/22 Quality Stroke Does the patient have a stroke diagnosis?: No VTE Prior VTE?: No VTE Risk Level:: Surgical - moderate VTE Device Contraindication: Procedure Contraindicated VTE Drug Contraindication: N/A - Med Ordered
[2022-01-25 11:10] LABS: Influenza A PCR NEGATIVE (Negative); Influenza B PCR NEGATIVE (Negative); Resp Syncy Virus RNA Qual PCR NEGATIVE (Negative); SARS COV2 PCR INHOUSE NEGATIVE (Negative)
[2022-01-25 11:23] LABS: Glucose, Whole Blood 76 mg/dL (60-115)
--- NOTE | 2022-01-25 11:28 | HO.PM.IMPN ---
Subjective Subjective Date of Service: 01/25/22 Interval History: Seen and evaluated this morning Accept the fact that he is losing his peak to to amputation Denies any overnight complaints Review of Systems No fever, chills or weakness No chest pain, palpitation No shortness of breath or coughing No abdominal pain, nausea or vomiting No urinary symptoms Black discoloration of the left bigtoe Physical Exam Vital Signs: Vital Signs: Last Vital Signs Temp 97.4 F 01/25/22 07:29 Pulse 71 01/25/22 07:29 Resp 18 01/25/22 07:29 BP 193/88 H 01/25/22 07:29 Pulse Ox 95 01/25/22 07:29 O2 Del Method 01/25/22 07:29 O2 Flow Rate 2 01/25/22 04:00 BMI result Body Mass Index 28.8 Const: Other: Constitutional : Awake, interactive, not in distress Neck : Normal inspection, Supple Cardiovascular : RRR, no JVP, no lower extremity edema Respiratory : good bilateral air entry, no crackles, wheezes or rhonchi Gastrointestinal: soft, lax, Normal bowel sounds, Non tender Skin : Warm, Dry, dry also with black discoloration of the great toe of the left leg with no drainage, no significant surrounding erythema or tenderness Neurological : Alert & oriented x3, No focal deficit , CN 2-12 within normal Objective Data Active Medications Acetaminophen (Acetaminophen 325 Mg Tablet) 650 mg PO Q6H PRN PRN Reason: Pain, Mild (Pain Scale 1-3) Last Admin: 01/25/22 06:40 Dose: 650 mg Documented By: JULIA Amlodipine Besylate (Amlodipine Besylate 5 Mg Tablet) 5 mg PO DAILY@1700 [facility]; Protocol Last Admin: 01/24/22 16:17 Dose: 5 mg Documented By: LAURA Aspirin (Aspirin Enteric Coated 81 Mg Tablet.Dr) 81 mg PO DAILY [facility] Last Admin: 01/25/22 08:33 Dose: Not Given Documented By: NALLELY Non-Admin Reason: NPO Atorvastatin Calcium (Atorvastatin Calcium 80 Mg Tablet) 80 mg PO DAILY [facility] Last Admin: 01/25/22 08:30 Dose: 80 mg Documented By: NALLELY Fluticasone Propionate (Fluticasone Propionate Nasal 16 Gm [place]) 2 spray NOSTRIL-B DAILY PRN PRN Reason: Nasal Congestion Furosemide (Furosemide 40 Mg Tablet) 40 mg PO DAILY [facility]; Protocol Last Admin: 01/25/22 08:30 Dose: 40 mg Documented By: NALLELY Heparin Sodium (Porcine) (Heparin Sodium,Porcine 5,000 Unit/Ml Vial) 5,000 unit SUBCUT Q8H [facility] Last Admin: 01/25/22 08:33 Dose: Not Given Documented By: NALLELY Non-Admin Reason: surgery Hydralazine HCl (Hydralazine Hcl 25 Mg Tablet) 25 mg PO BID [facility]; Protocol Last Admin: 01/25/22 08:30 Dose: 25 mg Documented By: NALLELY Vancomycin HCl 1,000 mg/ (Sodium Chloride) 270 mls @ 270 mls/hr IV Q24H [facility] Insulin Glargine (Insulin Glargine,Hum.Rec.Anlog 100 Unit/Ml 10 Ml Vial) 10 unit SUBCUT BEDTIME [facility] Last Admin: 01/24/22 19:24 Dose: 10 unit Documented By: JULIA Insulin Human Lispro (Insulin Lispro 100 Unit/Ml 3 Ml Vial) 0 unit SUBCUT QIDACHS [facility]; Protocol Last Admin: 01/25/22 08:21 Dose: Not Given Documented By: NALLELY Non-Admin Reason: No Insulin Coverage Losartan Potassium (Losartan Potassium 50 Mg Tablet) 50 mg PO DAILY [facility]; Protocol Last Admin: 01/25/22 08:30 Dose: 50 mg Documented By: NALLELY Metoprolol Succinate (Metoprolol Succinate Er 100 Mg Tab.Er.24h) 100 mg PO DAILY [facility]; Protocol Last Admin: 01/25/22 08:30 Dose: 100 mg Documented By: NALLELY Morphine Sulfate (Morphine Sulfate 4 Mg/Ml Cartridge) 4 mg IVPUSH Q2H PRN; Protocol PRN Reason: Pain, Severe (Pain Scale 7-10) Last Admin: 01/24/22 09:23 Dose: 4 mg Documented By: CARL Morphine Sulfate (Morphine Sulfate 2 Mg/Ml Cartridge) 2 mg IVPUSH Q4H PRN; Protocol PRN Reason: Pain, Severe (Pain Scale 7-10) Oxycodone HCl (Oxycodone Hcl Immed Release 5 Mg Tablet) 5 mg PO Q4H PRN PRN Reason: Pain, Moderate (Pain Scale 4-6 Last Admin: 01/25/22 10:01 Dose: 5 mg Documented By: NALLELY Oxycodone HCl (Oxycodone Hcl Immed Release 5 Mg Tablet) 5 mg PO Q4H PRN PRN Reason: Pain, Moderate (Pain Scale 4-6 Pharmacy Consult (Consult Rx Vancomycin Dosing) 1 each MISCELLANE DAILY PRN PRN Reason: Consult order Sertraline HCl (Sertraline Hcl 50 Mg Tablet) 50 mg PO DAILY [facility] Last Admin: 01/25/22 08:30 Dose: 50 mg Documented By: NALLELY Sitagliptin Phosphate (Sitagliptin Phosphate 100 Mg Tablet) 100 mg PO DAILY [facility] Last Admin: 01/25/22 08:33 Dose: Not Given Documented By: NALLELY Non-Admin Reason: NPO Sodium Chloride (0.9 % Sodium Chloride Flush 3 Ml Syringe) 3 ml IVFLUSH QSHIFT [facility] Last Admin: 01/25/22 08:33 Dose: 3 ml Documented By: NALLELY Tamsulosin HCl (Tamsulosin Hcl 0.4 Mg Capsule) 0.4 mg PO BEDTIME [facility] Last Admin: 01/24/22 19:24 Dose: 0.4 mg Documented By: RONALDOQC Labs CBC & Chem 7: 01/25/22 05:05 01/25/22 05:05 Labs: Laboratory Results - last 24 hr 01/24/22 01/24/22 01/24/22 12:19 15:18 16:18 MCV MCH MCHC RDW Plt Count MPV Immature Gran % (Auto) Neut % (Auto) Lymph % (Auto) [place] % (Auto) Eos % (Auto) Baso % (Auto) Lymph # (Auto) [place] # (Auto) Eos # (Auto) Baso # (Auto) Abs Immat Gran (auto) Absolute Neuts (auto) Absolute Nucleated RBC Nucleated RBC % (auto) PT INR Anion Gap Estim Creat Clear Calc 50.7 Estimated GFR 46 POC Glucose 124 H 156 H Random Glucose Calcium Iron TIBC % Saturation Unsat Iron Binding Troponin I High Sens B-Natriuretic Peptide Influenza Type A (PCR) Influenza Type B (PCR) RSV RNA Qual (PCR) SARS-CoV-2 RNA (RT-PCR) 01/24/22 01/25/22 01/25/22 19:01 00:42 00:42 MCV MCH MCHC RDW Plt Count MPV Immature Gran % (Auto) Neut % (Auto) Lymph % (Auto) [place] % (Auto) Eos % (Auto) Baso % (Auto) Lymph # (Auto) [place] # (Auto) Eos # (Auto) Baso # (Auto) Abs Immat Gran (auto) Absolute Neuts (auto) Absolute Nucleated RBC Nucleated RBC % (auto) PT INR Anion Gap Estim Creat Clear Calc Estimated GFR POC Glucose 145 H Random Glucose Calcium Iron TIBC % Saturation Unsat Iron Binding Troponin I High Sens 16.0 B-Natriuretic Peptide 459 H Influenza Type A (PCR) Influenza Type B (PCR) RSV RNA Qual (PCR) SARS-CoV-2 RNA (RT-PCR) 01/25/22 01/25/22 01/25/22 05:05 05:05 05:05 MCV 96.2 MCH 30.5 MCHC 31.7 RDW 12.2 Plt Count 437 H D MPV 9.6 Immature Gran % (Auto) 0.5 H Neut % (Auto) 74.3 H Lymph % (Auto) 11.1 L [place] % (Auto) 11.8 H Eos % (Auto) 1.8 Baso % (Auto) 0.5 Lymph # (Auto) 1.0 L [place] # (Auto) 1.0 Eos # (Auto) 0.2 Baso # (Auto) 0.0 Abs Immat Gran (auto) 0.04 H Absolute Neuts (auto) 6.4 Absolute Nucleated RBC 0.000 Nucleated RBC % (auto) 0.0 PT 12.9 INR 1.1 Anion Gap 15 Estim Creat Clear Calc 51.3 Estimated GFR 46 POC Glucose Random Glucose 89 Calcium 8.8 Iron TIBC % Saturation Unsat Iron Binding Troponin I High Sens B-Natriuretic Peptide Influenza Type A (PCR) Influenza Type B (PCR) RSV RNA Qual (PCR) SARS-CoV-2 RNA (RT-PCR) 01/25/22 01/25/22 01/25/22 05:05 07:26 10:11 MCV MCH MCHC RDW Plt Count MPV Immature Gran % (Auto) Neut % (Auto) Lymph % (Auto) [place] % (Auto) Eos % (Auto) Baso % (Auto) Lymph # (Auto) [place] # (Auto) Eos # (Auto) Baso # (Auto) Abs Immat Gran (auto) Absolute Neuts (auto) Absolute Nucleated RBC Nucleated RBC % (auto) PT INR Anion Gap Estim Creat Clear Calc 50.7 Estimated GFR 46 POC Glucose 88 Random Glucose Calcium Iron 23 L TIBC 188 L % Saturation 12 L Unsat Iron Binding 165 Troponin I High Sens B-Natriuretic Peptide Influenza Type A (PCR) NEGATIVE Influenza Type B (PCR) NEGATIVE RSV RNA Qual (PCR) NEGATIVE SARS-CoV-2 RNA (RT-PCR) NEGATIVE 01/25/22 11:13 MCV MCH MCHC RDW Plt Count MPV Immature Gran % (Auto) Neut % (Auto) Lymph % (Auto) [place] % (Auto) Eos % (Auto) Baso % (Auto) Lymph # (Auto) [place] # (Auto) Eos # (Auto) Baso # (Auto) Abs Immat Gran (auto) Absolute Neuts (auto) Absolute Nucleated RBC Nucleated RBC % (auto) PT INR Anion Gap Estim Creat Clear Calc Estimated GFR POC Glucose 76 Random Glucose Calcium Iron TIBC % Saturation Unsat Iron Binding Troponin I High Sens B-Natriuretic Peptide Influenza Type A (PCR) Influenza Type B (PCR) RSV RNA Qual (PCR) SARS-CoV-2 RNA (RT-PCR) Assessment and Plan (1) Dry gangrene: Status: Acute (2) Nonhealing ulcer of left lower extremity: Status: Acute (3) LIVE (iron deficiency anemia): Status: Acute Plan A 66 years old male with PMH of DM, HTN, PAD among others who presents to the hospital as a vascular surgery patient for left great toe nonhealing ulcer. Nonhealing ulcer, dry gangrene left large toe Vascular surgery following Start baby aspirin Continue atorvastatin IV vancomycin Seems to be heading to were amputation Acute on chronic anemia No evidence of bleeding reported , seems LIVE Hemoglobin at 7.3, could be partially from dilution Check occult blood Give iron replacement Monitor H and H Type 2 diabetes Insulin, diabetic diet Decrease Lantus to 10 units HTN Continue losartan, hydralazine, metoprolol and amlodipine HLD Continue atorvastatin DVT PPX Heparin Thank you for the consult, will continue to monitor the patient with you Quality Stroke Does the patient have a stroke diagnosis?: No VTE Prior VTE?: No VTE Risk Level:: Surgical - moderate VTE Device Contraindication: Procedure Contraindicated VTE Drug Contraindication: N/A - Med Ordered
[2022-01-25 12:53] LABS: Glucose, Whole Blood 79 mg/dL (60-115)
[2022-01-25] MEDS: Dextrose 5 % and Lactated Ring 1,000 ML 50 ML IVCONT (13:14)
[2022-01-25] MEDS: Iron Sucrose Complex 200 MG in 0.9 % Sodium Chloride 100 ML 440 MG IV (13:50)
--- NOTE | 2022-01-25 14:16 | P.CONAN_ITS ---
HPI - Anesthesia Eval Consult details Narrative: Left toe gangrene PMFSH Active Problems Active Problems: All Active Problems (Updated 01/25/22 @ 11:30 by Marian Flores MD) LIVE (iron deficiency anemia) (Acute) Dry gangrene (Acute) Nonhealing ulcer of left lower extremity (Acute) Kidney disease (Acute) Hyperlipidemia associated with type 2 diabetes mellitus (Acute) Type 2 diabetes mellitus (Acute) HTN (hypertension) (Acute) PAD (peripheral artery disease) (Acute) Past Medical History Medical History Diabetes High cholesterol HTN (hypertension) Hyperlipidemia associated with type 2 diabetes mellitus Kidney disease Type 2 diabetes mellitus Family History Family history of problems with anesthesia: No Surgical History Surgical History H/O shoulder surgery History of amputation of right forefoot History of Problems with Anesthesia: No Social History Social History Household Members: None Housing: Apartment 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 If so, by whom?: No Do you feel safe in your current relationship?: No Current Relationship Is there a partner from a previous relationship who is making you feel unsafe now?: No Are you made to feel afraid or neglected: No Are you DNR?: No Advance Directives: No Advance Directives Information Provided: Yes Do you have thoughts of harming others: None Do you have a plan to hurt others: No Plan Recently lost weight without trying: No Nutrition Risks: No Nutritional Risk service: No Current occupational status: retired [employer] Allergies Allergy/AdvReac Type Severity Reaction Status Date / Time No Known Allergies Allergy Verified 01/24/22 06:12 [No Known Allergies*] Active Medications: Current Medications Acetaminophen (Acetaminophen 325 Mg Tablet) 650 mg PO Q6H PRN PRN Reason: Pain, Mild (Pain Scale 1-3) Last Admin: 01/25/22 06:40 Dose: 650 mg Amlodipine Besylate (Amlodipine Besylate 5 Mg Tablet) 5 mg PO DAILY@1700 ANNABELLA; Protocol Last Admin: 01/24/22 16:17 Dose: 5 mg Aspirin (Aspirin Enteric Coated 81 Mg Tablet.Dr) 81 mg PO DAILY [facility] Last Admin: 01/25/22 08:33 Dose: Not Given Atorvastatin Calcium (Atorvastatin Calcium 80 Mg Tablet) 80 mg PO DAILY [facility] Last Admin: 01/25/22 08:30 Dose: 80 mg Fluticasone Propionate (Fluticasone Propionate Nasal 16 Gm [place]) 2 spray NOSTRIL-B DAILY PRN PRN Reason: Nasal Congestion Furosemide (Furosemide 40 Mg Tablet) 40 mg PO DAILY [facility]; Protocol Last Admin: 01/25/22 08:30 Dose: 40 mg Heparin Sodium (Porcine) (Heparin Sodium,Porcine 5,000 Unit/Ml Vial) 5,000 unit SUBCUT Q8H [facility] Last Admin: 01/25/22 08:33 Dose: Not Given Hydralazine HCl (Hydralazine Hcl 25 Mg Tablet) 25 mg PO BID [facility]; Protocol Last Admin: 01/25/22 08:30 Dose: 25 mg Vancomycin HCl 1,000 mg/ (Sodium Chloride) 270 mls @ 270 mls/hr IV Q24H ANNABELLA Iron Sucrose 200 mg/ Sodium (Chloride) 110 mls @ 440 mls/hr IV DAILY [facility] Stop: 01/29/22 09:14 Last Infusion: 01/25/22 14:14 Dose: Infused Dextrose/Lactated Ringer's (D5lr) 1,000 mls @ 50 mls/hr IVCONT .Q20H [facility] Last Admin: 01/25/22 13:14 Dose: 50 mls/hr Insulin Glargine (Insulin Glargine,Hum.Rec.Anlog 100 Unit/Ml 10 Ml Vial) 10 unit SUBCUT BEDTIME [facility] Last Admin: 01/24/22 19:24 Dose: 10 unit Insulin Human Lispro (Insulin Lispro 100 Unit/Ml 3 Ml Vial) 0 unit SUBCUT QIDACHS [facility]; Protocol Last Admin: 01/25/22 11:40 Dose: Not Given Losartan Potassium (Losartan Potassium 50 Mg Tablet) 50 mg PO DAILY [facility]; Protocol Last Admin: 01/25/22 08:30 Dose: 50 mg Metoprolol Succinate (Metoprolol Succinate Er 100 Mg Tab.Er.24h) 100 mg PO DAILY [facility]; Protocol Last Admin: 01/25/22 08:30 Dose: 100 mg Morphine Sulfate (Morphine Sulfate 4 Mg/Ml Cartridge) 4 mg IVPUSH Q2H PRN; Protocol PRN Reason: Pain, Severe (Pain Scale 7-10) Last Admin: 01/24/22 09:23 Dose: 4 mg Morphine Sulfate (Morphine Sulfate 2 Mg/Ml Cartridge) 2 mg IVPUSH Q4H PRN; Protocol PRN Reason: Pain, Severe (Pain Scale 7-10) Oxycodone HCl (Oxycodone Hcl Immed Release 5 Mg Tablet) 5 mg PO Q4H PRN PRN Reason: Pain, Moderate (Pain Scale 4-6 Last Admin: 01/25/22 10:01 Dose: 5 mg Oxycodone HCl (Oxycodone Hcl Immed Release 5 Mg Tablet) 5 mg PO Q4H PRN PRN Reason: Pain, Moderate (Pain Scale 4-6 Pharmacy Consult (Consult Rx Vancomycin Dosing) 1 each MISCELLANE DAILY PRN PRN Reason: Consult order Sertraline HCl (Sertraline Hcl 50 Mg Tablet) 50 mg PO DAILY [facility] Last Admin: 01/25/22 08:30 Dose: 50 mg Sitagliptin Phosphate (Sitagliptin Phosphate 100 Mg Tablet) 100 mg PO DAILY [facility] [place] Last Admin: 01/25/22 08:33 Dose: Not Given Sodium Chloride (0.9 % Sodium Chloride Flush 3 Ml Syringe) 3 ml IVFLUSH QSHIFT [facility] Last Admin: 01/25/22 08:33 Dose: 3 ml Tamsulosin HCl (Tamsulosin Hcl 0.4 Mg Capsule) 0.4 mg PO BEDTIME [facility] Last Admin: 01/24/22 19:24 Dose: 0.4 mg Home Medications Medication Instructions Recorded Confirmed Last Taken Type amlodipine 5 mg tablet 5 mg PO QPM 04/27/21 01/24/22 01/02/22 History atorvastatin 80 mg tablet 80 mg PO DAILY 04/27/21 01/24/22 01/02/22 History fluticasone propionate 50 2 spray intranasal QAM PRN Nasal 04/27/21 01/24/22 01/02/22 History mcg/actuation nasal Congestion spray,suspension furosemide 40 mg tablet 40 mg PO QAM 04/27/21 01/24/22 01/02/22 History glipizide 10 mg tablet 20 mg PO BID 04/27/21 01/24/22 01/02/22 History hydralazine 25 mg tablet 25 mg PO BID 04/27/21 01/24/22 01/02/22 History losartan 50 mg tablet 50 mg PO QAM 04/27/21 01/24/22 01/02/22 History metformin 1,000 mg tablet 1,000 mg PO BID 04/27/21 01/24/22 12/31/21 History metoprolol succinate 100 mg 100 mg PO DAILY 04/27/21 01/24/22 01/02/22 History tablet,extended release 24 hr sertraline 50 mg tablet 50 mg PO DAILY 04/27/21 01/24/22 01/02/22 History sitagliptin 100 mg tablet (Januvia) 100 mg PO DAILY 04/27/21 01/24/22 01/02/22 History povidone-iodine 10 % topical See Rx Instructions .Route .COMPLEX 12/28/21 01/24/22 01/02/22 History solution insulin degludec 100 unit/mL (3 25 unit subcut QPM 01/03/22 01/24/22 01/02/22 History mL) subcutaneous pen (Tresiba FlexTouch U-100 insulin) Exam Exam Date and Time: January 25, 2022 1416 Height,Weight and Vital Signs: Height 5 ft 8 in Weight 86.183 kg Last Vital Signs Temp 98.4 F 01/25/22 12:26 Pulse 74 01/25/22 12:26 Resp 18 01/25/22 12:26 BP 179/73 H 01/25/22 12:26 Pulse Ox 96 01/25/22 12:26 O2 Del Method 01/25/22 12:26 O2 Flow Rate 2 01/25/22 04:00 Pertinent Lab Results Pertinent Lab Results: Laboratory Tests 01/24/22 01/24/22 01/24/22 07:29 12:19 15:18 WBC RBC Hgb Hct MCV MCH MCHC RDW Plt Count MPV Immature Gran % (Auto) Neut % (Auto) Lymph % (Auto) Archer % (Auto) Eos % (Auto) Baso % (Auto) Lymph # (Auto) Archer # (Auto) Eos # (Auto) Baso # (Auto) Abs Immat Gran (auto) Absolute Neuts (auto) Absolute Nucleated RBC Nucleated RBC % (auto) PT INR Sodium Potassium Chloride Carbon Dioxide Anion Gap BUN Creatinine Estim Creat Clear Calc Estimated GFR POC Glucose 112 124 H 156 H Random Glucose Calcium Iron TIBC % Saturation Unsat Iron Binding Troponin I High Sens B-Natriuretic Peptide Influenza Type A (PCR) Influenza Type B (PCR) RSV RNA Qual (PCR) SARS-CoV-2 RNA (RT-PCR) 01/24/22 01/24/22 01/25/22 16:18 19:01 00:42 WBC RBC Hgb Hct MCV MCH MCHC RDW Plt Count MPV Immature Gran % (Auto) Neut % (Auto) Lymph % (Auto) Archer % (Auto) Eos % (Auto) Baso % (Auto) Lymph # (Auto) Archer # (Auto) Eos # (Auto) Baso # (Auto) Abs Immat Gran (auto) Absolute Neuts (auto) Absolute Nucleated RBC Nucleated RBC % (auto) PT INR Sodium Potassium Chloride Carbon Dioxide Anion Gap BUN Creatinine 1.53 H Estim Creat Clear Calc 50.7 Estimated GFR 46 POC Glucose 145 H Random Glucose Calcium Iron TIBC % Saturation Unsat Iron Binding Troponin I High Sens B-Natriuretic Peptide 459 H Influenza Type A (PCR) Influenza Type B (PCR) RSV RNA Qual (PCR) SARS-CoV-2 RNA (RT-PCR) 01/25/22 01/25/22 01/25/22 00:42 05:05 05:05 WBC 8.6 RBC 2.39 L Hgb 7.3 L Hct 23.0 L MCV 96.2 MCH 30.5 MCHC 31.7 RDW 12.2 Plt Count 437 H D MPV 9.6 Immature Gran % (Auto) 0.5 H Neut % (Auto) 74.3 H Lymph % (Auto) 11.1 L Archer % (Auto) 11.8 H Eos % (Auto) 1.8 Baso % (Auto) 0.5 Lymph # (Auto) 1.0 L Archer # (Auto) 1.0 Eos # (Auto) 0.2 Baso # (Auto) 0.0 Abs Immat Gran (auto) 0.04 H Absolute Neuts (auto) 6.4 Absolute Nucleated RBC 0.000 Nucleated RBC % (auto) 0.0 PT 12.9 INR 1.1 Sodium Potassium Chloride Carbon Dioxide Anion Gap BUN Creatinine Estim Creat Clear Calc Estimated GFR POC Glucose Random Glucose Calcium Iron TIBC % Saturation Unsat Iron Binding Troponin I High Sens 16.0 B-Natriuretic Peptide Influenza Type A (PCR) Influenza Type B (PCR) RSV RNA Qual (PCR) SARS-CoV-2 RNA (RT-PCR) 01/25/22 01/25/22 01/25/22 05:05 05:05 07:26 WBC RBC Hgb Hct MCV MCH MCHC RDW Plt Count MPV Immature Gran % (Auto) Neut % (Auto) Lymph % (Auto) Archer % (Auto) Eos % (Auto) Baso % (Auto) Lymph # (Auto) Archer # (Auto) Eos # (Auto) Baso # (Auto) Abs Immat Gran (auto) Absolute Neuts (auto) Absolute Nucleated RBC Nucleated RBC % (auto) PT INR Sodium 144 Potassium 4.9 Chloride 108 Carbon Dioxide 26 Anion Gap 15 BUN 29 H Creatinine 1.51 H 1.53 H Estim Creat Clear Calc 51.3 50.7 Estimated GFR 46 46 POC Glucose 88 Random Glucose 89 Calcium 8.8 Iron 23 L TIBC 188 L % Saturation 12 L Unsat Iron Binding 165 Troponin I High Sens B-Natriuretic Peptide Influenza Type A (PCR) Influenza Type B (PCR) RSV RNA Qual (PCR) SARS-CoV-2 RNA (RT-PCR) 01/25/22 01/25/22 01/25/22 10:11 11:13 12:49 WBC RBC Hgb Hct MCV MCH MCHC RDW Plt Count MPV Immature Gran % (Auto) Neut % (Auto) Lymph % (Auto) [place] % (Auto) Eos % (Auto) Baso % (Auto) Lymph # (Auto) Archer # (Auto) Eos # (Auto) Baso # (Auto) Abs Immat Gran (auto) Absolute Neuts (auto) Absolute Nucleated RBC Nucleated RBC % (auto) PT INR Sodium Potassium Chloride Carbon Dioxide Anion Gap BUN Creatinine Estim Creat Clear Calc Estimated GFR POC Glucose 76 79 Random Glucose Calcium Iron TIBC % Saturation Unsat Iron Binding Troponin I High Sens B-Natriuretic Peptide Influenza Type A (PCR) NEGATIVE Influenza Type B (PCR) NEGATIVE RSV RNA Qual (PCR) NEGATIVE SARS-CoV-2 RNA (RT-PCR) NEGATIVE Airway Mallampati Class: II TM Dist: >3cm Denture: Upper Loose/Missing/Broken Teeth: No Heart: RRR Lungs: CTA Assessment and Plan Assessment Anesthesia Assessment: Anesthesia Plan Discussed and Chart Reviewed Final Anesthetic Review Family History of Problems with Anesthesia: No History of Problems with Anesthesia: No NPO: Yes ASA Class: IV Final Preanesthetic Review: No Changes in Pt Med Stat, Meds/Allgs Chart Reviewed, Consent Obtained/Reviewed and Anes Risks/Benef Reviewed Patient Risk: High Procedure Risk: Low Anesthetic Plan Anesthetic Plan: MAC: Disposition: Standard PACU
--- NOTE | 2022-01-25 15:25 | W.PM.OPN ---
Operative Note Operative Note Date of Service: 01/25/22 Narrative: Operative note by [facility] Preoperative diagnosis:1. Left great toe dry gangrene 2. Left great toe osteomyelitis Postoperative diagnosis: Same Procedure: Left great toe amputation Surgeon:Lyle Topete M.D. Manager Of Enterprise: None Anesthesia: Local with sedation performed by Dr. Whittington Specimens: 1 Drains: None Estimated blood loss: Minimal Indications: 66-year-old gentleman with a history of peripheral vascular disease have had undergone diagnostic angiogram yesterday. Had adequate blood supply. Now presents for left great toe amputation. The patient has signed the informed consent after reviewing risks, complications, benefits, and alternatives previously discussed with the patient. The patient was given the opportunity to ask any additional questions or voice any concerns. All questions were answered to the patient's satisfaction. Procedure in detail: Patient was brought to the operating room prior to which a time-out was called for patient identification and site verification sedation was administered by anesthesia and we infiltrated the area with local 1% lidocaine 0.5% ropivacaine equal mix without epinephrine. Her once this was done we made a curvilinear fishmouth incision over the great toe on the left side. Took this down through skin subcu fascia down through the tissue to the metatarsal head. We resected this down. We dissected out the entire toe circumferentially and removed this off as specimen. There was some residual tendon that had to be resected back. The wound was thoroughly irrigated out. Deep layer was reapproximated with 2-0 Polysorb superficial layer with 3-0 poly Sorb and finally skin with a 3-0 nylon in a mattress fashion Xeroform and a sterile dressing was applied. At the end the case sponge instrument counts were correct. Patient tolerated the procedure well and returned to recovery with stable vitals. This note is constructed using voice recognition software. While every effort has been made to ensure accuracy, retail merchandising manager errors may have been included. Thank you for allowing me to participate in the care of your patient. Yours sincerely, Lyle Topete MD, FACS, R.P.V.I.
[2022-01-25 15:28] LABS: Glucose, Whole Blood 115 mg/dL (60-115)
[2022-01-25 16:18] LABS: Glucose, Whole Blood 113 mg/dL (60-115)
[2022-01-25] MEDS: vancomycin HCL 1,000 MG in 0.9 % Sodium Chloride 250 ML 270 MG IV (16:18)
[2022-01-25] MEDS: amLODIPine Besylate 5 MG TABLET PO (16:18)
[2022-01-25] MEDS: Morphine Sulfate 4 MG/ML CARTRIDGE IVPUSH (19:24)
[2022-01-25] MEDS: Insulin Lispro 100 UNIT/ML 3 ML VIAL SUBCUT (19:50)
[2022-01-25] MEDS: Tamsulosin HCL 0.4 MG CAPSULE PO (19:50)
[2022-01-25] MEDS: Insulin Glargine,Hum.rec.anlog 100 UNIT/ML 10 ML VIAL 10 UNIT SUBCUT (19:51)
[2022-01-25 19:53] LABS: Glucose, Whole Blood 181 mg/dL (60-115)
[2022-01-26] VITALS (10 sets, daily range): BP systolic 164–200; BP diastolic 62–93; PULSE 80–95; RESP 17–20; TEMP 36.4–38.1; O2SAT 93–97
[2022-01-26] MEDS: HYDROmorphone HCl 1 MG/ML SYRINGE 0.5 MG IVPUSH (00:08)
[2022-01-26] MEDS: Heparin Sodium,Porcine 5,000 UNIT/ML VIAL 5000 UNIT SUBCUT ×3 (00:09→16:22)
--- NOTE | 2022-01-26 00:32 | PC.NURSE ---
01/25/22 2145 BP-198/88 PULSE-87 PM DOSE OF HYDRALAZINE 25MG GIVEN. NOTIFIED.NO NEW ORDERS AT THIS TIME.
[2022-01-26] MEDS: oxyCODONE HCl Immed Release 5 MG TABLET PO ×4 (03:43→23:15)
[2022-01-26] MEDS: Acetaminophen 325 MG TABLET 650 MG PO ×2 (03:43→23:15)
[2022-01-26] MEDS: HYDROmorphone HCl 1 MG/ML SYRINGE IVPUSH (05:47)
--- NOTE | 2022-01-26 05:53 | PC.NURSE ---
Pt c/o a lot of pain 10/10 in back of left upper leg notified ordered dilaudid 1mg iv x 1 dose given at 0545 .
[2022-01-26 06:46] LABS: MANUAL DIFF FLAG NO
[2022-01-26 06:53] LABS: Basophils Percent Auto 0.4 % (0-2); Eosinophils Absolute Auto 0.1 X10*3/uL (0.0-0.4); Eosinophils Percent Auto 1.1 % (0-4); Hemoglobin 8.5 g/dl (14.0-18.0); Imm Gran Abs Auto 0.06 X10*3/uL (0.00-0.03); Imm Gran Pct Auto 0.6 % (0.0-0.4); Lymphocytes Absolute Auto 0.7 X10*3/uL (1.2-4.9); Lymphocytes Percent Auto 7.2 % (20-40); Mean Corpuscular HGB Conc 32.7 g/dl (31.0-36.0); Mean Corpuscular Volume 91.9 fL (80.0-98.0); Mean Platelet Volume 9.8 fL (9.4-12.4); Monocytes Absolute Auto 1.3 X10*3/uL (0.1-1.2); Monocytes Percent Auto 12.9 % (2-11); Neutrophils Absolute Auto 7.7 x10*3/uL (2.0-8.3); Neutrophils Percent Auto 77.8 % (45-73); Platelet Count 475 X10*3/uL (160-400); Red Blood Count 2.83 X10*6/uL (4.60-5.80); Red Cell Distribution Width 12.9 % (11.0-16.0); White Blood Count 9.9 X10*3/uL (4.8-10.8)
[2022-01-26 06:54] LABS: Hematocrit 26.1 % (42.0-52.0); Hemoglobin 8.5 g/dl (14.0-18.0); Mean Corpuscular HGB Conc 32.6 g/dl (31.0-36.0); Mean Corpuscular Hemoglobin 30.1 pg (27.0-33.0); Mean Corpuscular Volume 92.6 fL (80.0-98.0); Mean Platelet Volume 9.8 fL (9.4-12.4); Platelet Count 472 X10*3/uL (160-400); Red Blood Count 2.82 X10*6/uL (4.60-5.80); White Blood Count 9.6 X10*3/uL (4.8-10.8)
[2022-01-26 07:04] LABS: Creatinine Clr Calc Pharmacy 46.1; Estimated Glomerular Filt Rate 41
[2022-01-26 07:46] LABS: Glucose, Whole Blood 131 mg/dL (60-115)
--- NOTE | 2022-01-26 08:00 | HE.PHANOTE ---
saul mcgovern continue current dose, next level 01/27 @1500 zana
[2022-01-26] MEDS: Morphine Sulfate 4 MG/ML CARTRIDGE IVPUSH ×2 (08:46→16:21)
[2022-01-26] MEDS: SITagliptin Phosphate 100 MG TABLET PO (08:50)
[2022-01-26] MEDS: hydrALAZINE HCl 25 MG TABLET PO (08:50)
[2022-01-26] MEDS: Aspirin Enteric Coated 81 MG TABLET.DR PO (08:50)
[2022-01-26] MEDS: Atorvastatin Calcium 80 MG TABLET PO (08:50)
[2022-01-26] MEDS: Losartan Potassium 50 MG TABLET PO (08:50)
[2022-01-26] MEDS: Metoprolol Succinate ER 100 MG TAB.ER.24H PO (08:51)
[2022-01-26] MEDS: Sertraline HCL 50 MG TABLET PO (08:51)
[2022-01-26] MEDS: Furosemide 40 MG TABLET PO (08:51)
[2022-01-26] MEDS: Iron Sucrose Complex 200 MG in 0.9 % Sodium Chloride 100 ML 440 MG IV (10:02)
--- NOTE | 2022-01-26 11:06 | HO.VASCPN ---
Subjective Subjective Date of Service: 01/26/22 Patient reports: no new complaints and feels better Interval history: Patient seen and examined. No significant events overnight. Postop day 1 status post toe amputation. In general pain appears to be significantly better. He did get 1 unit transfusion yesterday in appears to be doing a lot better with that. He is now for follow-up. Physical Exam Vital Signs: Vital Signs: Last Vital Signs Temp 97.7 F 01/26/22 07:31 Pulse 81 01/26/22 07:31 Resp 18 01/26/22 07:31 BP 180/62 H 01/26/22 07:31 Pulse Ox 97 01/26/22 07:31 O2 Del Method 01/26/22 07:31 O2 Flow Rate 2 01/25/22 04:00 BMI result Body Mass Index 28.8 Const: General: cooperative, healthy appearing and no acute distress Orientation/consciousness: oriented to person, oriented to place and oriented to time HEENT: Head: Yes normal to inspection Neck: Carotids: no bruits Chest: Chest palpation & inspection: normal inspection of the chest Resp: Effort & Inspection: normal respiratory effort and able to speak in complete sentences Auscultation: clear to auscultation bilaterally Cardio: Rate: regular rate Heart sounds: S1 normal heart sound present and S2 normal heart sound present GI: Inspection: Yes normal to inspection Skin: Other: Left foot dressing clean dry intact General skin exam: no rashes or lesions noted Wounds: no wounds Neuro: General: oriented to person, oriented to place, oriented to time and CN's II-XI intact bilaterally Extrem: General: Yes normal to inspection, Yes full ROM and Yes no clubbing, cyanosis or edema Psych: Appearance: grossly normal and well kempt Speech and movement: Normal speech and movement present Affect: normal affect Progress Note: A&P Assessment and plan (1) Dry gangrene: Status: Acute Assessment and Plan: Patient is status post diagnostic angiogram and left great toe amputation. He appears to be doing significantly better. Would continue with protective dressing which will be changed on Saturday. In addition he is being treated for his anemia. We will keep him in the hospital through the weekend for pain control and to ensure his hemoglobin stabilizes. Thank you to the hospitalist team for their assistance in this patient's care. Time Spent With Patient Time: Total time spent is greater than 50% in coordination of care (as documented) at patient's floor/unit and/or counseling patient: Procedures Date of Service Date of Service: 01/26/22 Quality Stroke Does the patient have a stroke diagnosis?: No VTE Prior VTE?: No VTE Risk Level:: Surgical - moderate VTE Device Contraindication: Procedure Contraindicated VTE Drug Contraindication: N/A - Med Ordered
[2022-01-26 11:31] LABS: Glucose, Whole Blood 129 mg/dL (60-115)
--- NOTE | 2022-01-26 14:40 | P.PNIM_ITS ---
Subjective Subjective Date of Service: 01/26/22 Interval History: Seen and evaluated this morning surgery site looks clear, no drainage Denies any overnight complaints Review of Systems No fever, chills or weakness No chest pain, palpitation No shortness of breath or coughing No abdominal pain, nausea or vomiting No urinary symptoms mild pain at site of surgery Physical Exam Vital Signs: Vital Signs: Last Vital Signs Temp 97.8 F 01/26/22 12:00 Pulse 80 01/26/22 12:00 Resp 17 01/26/22 12:00 BP 180/88 H 01/26/22 12:00 Pulse Ox 93 01/26/22 12:00 O2 Del Method 01/26/22 12:00 O2 Flow Rate 2 01/25/22 04:00 BMI result Body Mass Index 28.8 Const: Other: Constitutional : Awake, interactive, not in distress Neck : Normal inspection, Supple Cardiovascular : RRR, no JVP, no lower extremity edema Respiratory : good bilateral air entry, no crackles, wheezes or rhonchi Gastrointestinal: soft, lax, Normal bowel sounds, Non tender Skin : Warm, Dry, site of surgery clean, no drainage, distal half of foot dusky in color Neurological : Alert & oriented x3, No focal deficit , CN 2-12 within normal Objective Data Active Medications Acetaminophen (Acetaminophen 325 Mg Tablet) 650 mg PO Q6H PRN PRN Reason: Pain, Mild (Pain Scale 1-3) Last Admin: 01/26/22 03:43 Dose: 650 mg Documented By: STEPHANIE Amlodipine Besylate (Amlodipine Besylate 5 Mg Tablet) 5 mg PO DAILY@1700 [facility]; Protocol Last Admin: 01/25/22 16:18 Dose: 5 mg Documented By: NALLELY Aspirin (Aspirin Enteric Coated 81 Mg Tablet.) 81 mg PO DAILY [facility] Last Admin: 01/26/22 08:50 Dose: 81 mg Documented By: AMANDA Atorvastatin Calcium (Atorvastatin Calcium 80 Mg Tablet) 80 mg PO DAILY [facility] Last Admin: 01/26/22 08:50 Dose: 80 mg Documented By: AMANDA Fluticasone Propionate (Fluticasone Propionate Nasal 16 Gm [place]) 2 spray NOSTRIL-B DAILY PRN PRN Reason: Nasal Congestion Furosemide (Furosemide 40 Mg Tablet) 40 mg PO DAILY [facility]; Protocol Last Admin: 01/26/22 08:51 Dose: 40 mg Documented By: AMANDA Heparin Sodium (Porcine) (Heparin Sodium,Porcine 5,000 Unit/Ml Vial) 5,000 unit SUBCUT Q8H [facility] Last Admin: 01/26/22 08:45 Dose: 5,000 unit Documented By: AMANDA Hydralazine HCl (Hydralazine Hcl 25 Mg Tablet) 25 mg PO TID [facility]; Protocol Last Admin: 01/26/22 08:50 Dose: 25 mg Documented By: AMANDA Hydromorphone HCl (Hydromorphone Hcl 1 Mg/Ml Syringe) 0.5 mg IVPUSH Q5M PRN; Protocol PRN Reason: Pain, Severe (Pain Scale 7-10) Last Admin: 01/26/22 00:08 Dose: 0.5 mg Documented By: STEPHANIE Vancomycin HCl 1,000 mg/ (Sodium Chloride) 270 mls @ 270 mls/hr IV Q24H [facility] Last Infusion: 01/25/22 17:27 Dose: 0 mls/hr Documented By: NALLELY Iron Sucrose 200 mg/ Sodium (Chloride) 110 mls @ 440 mls/hr IV DAILY [facility] Stop: 01/29/22 09:14 Last Infusion: 01/26/22 11:23 Dose: 0 mls/hr Documented By: AMANDA Dextrose/Lactated Ringer's (D5lr) 1,000 mls @ 50 mls/hr IVCONT .Q20H [facility] Last Admin: 01/26/22 10:10 Dose: Not Given Documented By: AMANDA Non-Admin Reason: IV Running Insulin Glargine (Insulin Glargine,Hum.Rec.Anlog 100 Unit/Ml 10 Ml Vial) 10 unit SUBCUT BEDTIME [facility] Last Admin: 01/25/22 19:51 Dose: 10 unit Documented By: STEPHANIE Insulin Human Lispro (Insulin Lispro 100 Unit/Ml 3 Ml Vial) 0 unit SUBCUT QIDACHS [facility]; Protocol Last Admin: 01/26/22 11:42 Dose: Not Given Documented By: AMANDA Non-Admin Reason: No Insulin Coverage Losartan Potassium (Losartan Potassium 50 Mg Tablet) 50 mg PO DAILY [facility]; Protocol Last Admin: 01/26/22 08:50 Dose: 50 mg Documented By: AMANDA Metoprolol Succinate (Metoprolol Succinate Er 100 Mg Tab.Er.24h) 100 mg PO DAILY [facility]; Protocol Last Admin: 01/26/22 08:51 Dose: 100 mg Documented By: AMANDA Morphine Sulfate (Morphine Sulfate 4 Mg/Ml Cartridge) 4 mg IVPUSH Q2H PRN; Protocol PRN Reason: Pain, Severe (Pain Scale 7-10) Last Admin: 01/26/22 08:46 Dose: 4 mg Documented By: AMANDA Morphine Sulfate (Morphine Sulfate 2 Mg/Ml Cartridge) 2 mg IVPUSH Q4H PRN; Protocol PRN Reason: Pain, Severe (Pain Scale 7-10) Ondansetron HCl (Ondansetron Hcl 4 Mg/2 Ml Vial) 4 mg IVPUSH ONCE PRN PRN Reason: Nausea and Vomiting Oxycodone HCl (Oxycodone Hcl Immed Release 5 Mg Tablet) 5 mg PO Q4H PRN PRN Reason: Pain, Moderate (Pain Scale 4-6 Last Admin: 01/26/22 14:05 Dose: 5 mg Documented By: AMANDA Oxycodone HCl (Oxycodone Hcl Immed Release 5 Mg Tablet) 5 mg PO Q4H PRN PRN Reason: Pain, Moderate (Pain Scale 4-6 Pharmacy Consult (Consult Rx Vancomycin Dosing) 1 each MISCELLANE DAILY PRN PRN Reason: Consult order Sertraline HCl (Sertraline Hcl 50 Mg Tablet) 50 mg PO DAILY [facility] Last Admin: 01/26/22 08:51 Dose: 50 mg Documented By: AMANDA Sitagliptin Phosphate (Sitagliptin Phosphate 100 Mg Tablet) 100 mg PO DAILY [facility] Last Admin: 01/26/22 08:50 Dose: 100 mg Documented By: AMANDA Sodium Chloride (0.9 % Sodium Chloride Flush 3 Ml Syringe) 3 ml IVFLUSH QSHIFT [facility] Last Admin: 01/26/22 08:51 Dose: Not Given Documented By: AMANDA Non-Admin Reason: IV Running Tamsulosin HCl (Tamsulosin Hcl 0.4 Mg Capsule) 0.4 mg PO BEDTIME [facility] Last Admin: 01/25/22 19:50 Dose: 0.4 mg Documented By: STEPHANIE Labs CBC & Chem 7: 01/26/22 05:48 01/26/22 05:48 Labs: Laboratory Results - last 24 hr 1101/25/22 01/25/22 15:22 16:14 16:32 MCV MCH MCHC RDW Plt Count MPV Immature Gran % (Auto) Neut % (Auto) Lymph % (Auto) [place] % (Auto) Eos % (Auto) Baso % (Auto) Lymph # (Auto) [place] # (Auto) Eos # (Auto) Baso # (Auto) Abs Immat Gran (auto) Absolute Neuts (auto) Absolute Nucleated RBC Nucleated RBC % (auto) Estim Creat Clear Calc Estimated GFR POC Glucose 115 113 Blood Type O Positive Antibody Screen NEGATIVE Crossmatch See Detail 01/25/22 01/26/22 01/26/22 19:20 05:48 05:48 MCV 91.9 MCH 30.0 MCHC 32.7 RDW 12.9 Plt Count 475 H MPV 9.8 Immature Gran % (Auto) 0.6 H Neut % (Auto) 77.8 H Lymph % (Auto) 7.[address] [place] % (Auto) 12.9 H Eos % (Auto) 1.1 Baso % (Auto) 0.4 Lymph # (Auto) 0.[address] [place] # (Auto) 1.3 H Eos # (Auto) 0.1 Baso # (Auto) 0.0 Abs Immat Gran (auto) 0.06 H Absolute Neuts (auto) 7.7 Absolute Nucleated RBC 0.000 Nucleated RBC % (auto) 0.0 Estim Creat Clear Calc 46.1 Estimated GFR 41 POC Glucose 181 H Blood Type Antibody Screen Crossmatch 01/26/22 01/26/22 01/26/22 05:48 07:24 11:26 MCV 92.6 MCH 30.1 MCHC 32.6 RDW 13.0 Plt Count 472 H MPV 9.8 Immature Gran % (Auto) Neut % (Auto) Lymph % (Auto) [place] % (Auto) Eos % (Auto) Baso % (Auto) Lymph # (Auto) [place] # (Auto) Eos # (Auto) Baso # (Auto) Abs Immat Gran (auto) Absolute Neuts (auto) Absolute Nucleated RBC 0.000 Nucleated RBC % (auto) 0.0 Estim Creat Clear Calc Estimated GFR POC Glucose 131 H 129 H Blood Type Antibody Screen Crossmatch Assessment and Plan (1) Nonhealing ulcer of left lower extremity: Status: Acute (2) Dry gangrene: Status: Acute (3) LIVE (iron deficiency anemia): Status: Acute Plan A 66 years old male with PMH of DM, HTN, PAD among others who presents to the hospital as a vascular surgery patient for left great toe nonhealing ulcer. Nonhealing ulcer, dry gangrene left large toe Vascular surgery following continue baby aspirin Continue atorvastatin IV vancomycin Seems to be heading to were amputation Acute on chronic anemia No evidence of bleeding reported , seems LIVE Hemoglobin improved to 8.3 after transfusion Negative occult blood Give iron replacement Monitor H and H Type 2 diabetes Insulin, diabetic diet Decrease Lantus to 10 units HTN Continue losartan, hydralazine, metoprolol and amlodipine HLD Continue atorvastatin DVT PPX Heparin Thank you for the consult, will continue to monitor the patient with you Quality Stroke Does the patient have a stroke diagnosis?: No VTE Prior VTE?: No VTE Risk Level:: Surgical - moderate VTE Device Contraindication: Procedure Contraindicated VTE Drug Contraindication: N/A - Med Ordered
--- NOTE | 2022-01-26 15:11 | HO.POSTANES ---
Post Anesthesia Evaluation Post Anesthesia Evaluation Vital Signs: Vital Signs Temp Pulse Resp BP Pulse Ox O2 Del Method 01/26/22 15:01 98.8 F 81 18 172/88 H 94 Room Air 01/26/22 12:00 97.8 F 80 17 180/88 H 93 Room Air 01/26/22 07:31 97.7 F 81 18 180/62 H 97 Room Air 01/26/22 04:00 97.6 F 84 17 198/93 H 95 Room Air Anesthesia: TIVA Mental Status: Awake Pain Control: Satisfactory (Uncomfortable) Nausea/Vomiting: None Hydration: Adequate Anesthesia-Related Issues: No Anes. Related Issues
[2022-01-26 16:05] LABS: Glucose, Whole Blood 158 mg/dL (60-115)
[2022-01-26] MEDS: vancomycin HCL 1,000 MG in 0.9 % Sodium Chloride 250 ML 270 MG IV (16:21)
[2022-01-26] MEDS: amLODIPine Besylate 10 MG TABLET PO (16:21)
[2022-01-26] MEDS: hydrALAZINE HCl 50 MG TABLET PO ×2 (16:21→19:40)
[2022-01-26] MEDS: Insulin Lispro 100 UNIT/ML 3 ML VIAL SUBCUT (16:37)
[2022-01-26 19:24] LABS: Glucose, Whole Blood 141 mg/dL (60-115)
[2022-01-26] MEDS: Tamsulosin HCL 0.4 MG CAPSULE PO (19:40)
[2022-01-26] MEDS: Insulin Glargine,Hum.rec.anlog 100 UNIT/ML 10 ML VIAL 10 UNIT SUBCUT (19:41)
[2022-01-26] MEDS: 0.9 % Sodium Chloride Flush 3 ML SYRINGE IVFLUSH (19:42)
[2022-01-26 22:09] LABS: Glucose, Whole Blood 101 mg/dL (60-115)
[2022-01-26] MEDS: Morphine Sulfate 2 MG/ML CARTRIDGE IVPUSH (22:17)
[2022-01-27] MEDS: Heparin Sodium,Porcine 5,000 UNIT/ML VIAL 5000 UNIT SUBCUT ×3 (00:25→16:54)
--- NOTE | 2022-01-27 01:59 | PC.NURSE ---
Around 2200. pt woke up withh some comfusion and restlessness, looking for his room, pt c/o 10/10 lt foot pain, AE=410/80 and +chills, temp=99.2 oral, Dr. Quintanilla was updated, prn Morphine given, Dr. Quintanilla ordered Labetalol IV, asked MD if pt can be put to conveyor monitor, Dr. Quintanilla didnt agree, Pharmacy was called and claimed that its the policy for a pt to be on tele in order to give Labetalol, MD was updated, Labetalol was cancelled, after an hour of morphine BP was 180/80 manual and HR=92, temp now 100.5 oral, Dr. Quintanilla was updated, blood culture was ordered, prn Oxycodone given for pain and Tylenol for low grade fever. pain was tolerable after.
[2022-01-27] MEDS: Morphine Sulfate 2 MG/ML CARTRIDGE IVPUSH ×3 (02:15→15:28)
[2022-01-27 03:31] VITALS: BP 170/79; PULSE 78; RESP 20; TEMP 36.4; O2SAT 95
[2022-01-27] MEDS: oxyCODONE HCl Immed Release 5 MG TABLET PO ×2 (03:31→16:54)
[2022-01-27 07:03] LABS: Creatinine Clr Calc Pharmacy 40.8; Estimated Glomerular Filt Rate 36
[2022-01-27 07:15] LABS: Glucose, Whole Blood 48 mg/dL (60-115)
[2022-01-27 07:27] LABS: Glucose, Whole Blood 65 mg/dL (60-115)
[2022-01-27 07:48] VITALS: BP 175/78; PULSE 81; RESP 17; TEMP 36.9; O2SAT 95
[2022-01-27 07:54] LABS: Glucose, Whole Blood 101 mg/dL (60-115)
[2022-01-27] MEDS: Sertraline HCL 50 MG TABLET PO (08:59)
[2022-01-27] MEDS: hydrALAZINE HCl 50 MG TABLET PO ×3 (08:59→19:53)
[2022-01-27] MEDS: Furosemide 40 MG TABLET PO (08:59)
[2022-01-27] MEDS: Losartan Potassium 25 MG TABLET 75 MG PO (08:59)
[2022-01-27] MEDS: Aspirin Enteric Coated 81 MG TABLET.DR PO (08:59)
[2022-01-27] MEDS: Atorvastatin Calcium 80 MG TABLET PO (08:59)
[2022-01-27] MEDS: Metoprolol Succinate ER 100 MG TAB.ER.24H PO (09:00)
[2022-01-27] MEDS: Iron Sucrose Complex 200 MG in 0.9 % Sodium Chloride 100 ML 440 MG IV (09:18)
[2022-01-27] MEDS: 0.9 % Sodium Chloride Flush 3 ML SYRINGE IVFLUSH ×3 (09:23→19:55)
[2022-01-27 11:11] LABS: Glucose, Whole Blood 118 mg/dL (60-115)
[2022-01-27 11:35] VITALS: BP 178/80; PULSE 78; RESP 19; TEMP 36.4; O2SAT 97
--- NOTE | 2022-01-27 15:03 | HO.PM.IMPN ---
Subjective Subjective Date of Service: 01/27/22 Interval History: Seen and evaluated this morning surgery site looks clear, no drainage Denies any overnight complaints Review of Systems No fever, chills or weakness No chest pain, palpitation No shortness of breath or coughing No abdominal pain, nausea or vomiting No urinary symptoms mild pain at site of surgery Physical Exam Vital Signs: Vital Signs: Last Vital Signs Temp 97.6 F 01/27/22 11:35 Pulse 78 01/27/22 11:35 Resp 19 01/27/22 11:35 BP 178/80 H 01/27/22 11:35 Pulse Ox 97 01/27/22 11:35 O2 Del Method 01/27/22 11:35 O2 Flow Rate 2 01/25/22 04:00 BMI result Body Mass Index 28.8 Const: Other: Constitutional : Awake, interactive, not in distress Neck : Normal inspection, Supple Cardiovascular : RRR, no JVP, no lower extremity edema Respiratory : good bilateral air entry, no crackles, wheezes or rhonchi Gastrointestinal: soft, lax, Normal bowel sounds, Non tender Skin : Warm, Dry, site of surgery clean, no drainage, distal half of foot dusky in color Neurological : Alert & oriented x3, No focal deficit , CN 2-12 within normal Objective Data Active Medications Acetaminophen (Acetaminophen 325 Mg Tablet) 650 mg PO Q6H PRN PRN Reason: Pain, Mild (Pain Scale 1-3) Last Admin: 01/26/22 23:15 Dose: 650 mg Documented By: EROS Amlodipine Besylate (Amlodipine Besylate 10 Mg Tablet) 10 mg PO DAILY@1700 [facility]; Protocol Last Admin: 01/26/22 16:21 Dose: 10 mg Documented By: JADEN Aspirin (Aspirin Enteric Coated 81 Mg Tablet.) 81 mg PO DAILY [facility] Last Admin: 01/27/22 08:59 Dose: 81 mg Documented By: PETR Atorvastatin Calcium (Atorvastatin Calcium 80 Mg Tablet) 80 mg PO DAILY [facility] Last Admin: 01/27/22 08:59 Dose: 80 mg Documented By: PETR Dextrose (Dextrose 50 % 25 Gm/50 Ml Syringe) 25 gm IVPUSH Q15M PRN; Protocol PRN Reason: per Hypoglycemia Standing Ord. Fluticasone Propionate (Fluticasone Propionate Nasal 16 Gm [place]) 2 spray NOSTRIL-B DAILY PRN PRN Reason: Nasal Congestion Furosemide (Furosemide 40 Mg Tablet) 40 mg PO DAILY [facility]; Protocol Last Admin: 01/27/22 08:59 Dose: 40 mg Documented By: PETR Glucose (Glucose Gel 15 Gm Gel..Gram.) 15 gm PO Q15M PRN; Protocol PRN Reason: per Hypoglycemia Standing Ord. Heparin Sodium (Porcine) (Heparin Sodium,Porcine 5,000 Unit/Ml Vial) 5,000 unit SUBCUT Q8H [facility] Last Admin: 01/27/22 08:58 Dose: 5,000 unit Documented By: PETR Hydralazine HCl (Hydralazine Hcl 50 Mg Tablet) 50 mg PO TID [facility]; Protocol Last Admin: 01/27/22 08:59 Dose: 50 mg Documented By: PETR Hydromorphone HCl (Hydromorphone Hcl 1 Mg/Ml Syringe) 0.5 mg IVPUSH Q5M PRN; Protocol PRN Reason: Pain, Severe (Pain Scale 7-10) Last Admin: 01/26/22 00:08 Dose: 0.5 mg Documented By: STEPHANIE Vancomycin HCl 1,000 mg/ (Sodium Chloride) 270 mls @ 270 mls/hr IV Q24H [facility] Last Infusion: 01/26/22 17:35 Dose: 0 mls/hr Documented By: JADEN Iron Sucrose 200 mg/ Sodium (Chloride) 110 mls @ 440 mls/hr IV DAILY [facility] Stop: 01/29/22 09:14 Last Infusion: 01/27/22 11:12 Dose: 0 mls/hr Documented By: PETR Insulin Glargine (Insulin Glargine,Hum.Rec.Anlog 100 Unit/Ml 10 Ml Vial) 5 unit SUBCUT BEDTIME [facility] Insulin Human Lispro (Insulin Lispro 100 Unit/Ml 3 Ml Vial) 0 unit SUBCUT QIDACHS [facility]; Protocol Last Admin: 01/27/22 11:51 Dose: Not Given Documented By: PETR Non-Admin Reason: No Insulin Coverage Losartan Potassium (Losartan Potassium 25 Mg Tablet) 75 mg PO DAILY [facility]; Protocol Last Admin: 01/27/22 08:59 Dose: 75 mg Documented By: PETR Metoprolol Succinate (Metoprolol Succinate Er 100 Mg Tab.Er.24h) 100 mg PO DAILY [facility]; Protocol Last Admin: 01/27/22 09:00 Dose: 100 mg Documented By: PETR Morphine Sulfate (Morphine Sulfate 4 Mg/Ml Cartridge) 4 mg IVPUSH Q2H PRN; Protocol PRN Reason: Pain, Severe (Pain Scale 7-10) Last Admin: 01/26/22 16:21 Dose: 4 mg Documented By: JADEN Morphine Sulfate (Morphine Sulfate 2 Mg/Ml Cartridge) 2 mg IVPUSH Q4H PRN; Protocol PRN Reason: Pain, Severe (Pain Scale 7-10) Last Admin: 01/27/22 09:00 Dose: 2 mg Documented By: PETR Ondansetron HCl (Ondansetron Hcl 4 Mg/2 Ml Vial) 4 mg IVPUSH ONCE PRN PRN Reason: Nausea and Vomiting Oxycodone HCl (Oxycodone Hcl Immed Release 5 Mg Tablet) 5 mg PO Q4H PRN PRN Reason: Pain, Moderate (Pain Scale 4-6 Last Admin: 01/27/22 03:31 Dose: 5 mg Documented By: EROS Pharmacy Consult (Consult Rx Vancomycin Dosing) 1 each MISCELLANE DAILY PRN PRN Reason: Consult order Sertraline HCl (Sertraline Hcl 50 Mg Tablet) 50 mg PO DAILY [facility] Last Admin: 01/27/22 08:59 Dose: 50 mg Documented By: PETR Sitagliptin Phosphate (Sitagliptin Phosphate 100 Mg Tablet) 100 mg PO DAILY [facility] Last Admin: 01/27/22 08:55 Dose: Not Given Documented By: PETR Non-Admin Reason: Physician Held Med Sodium Chloride (0.9 % Sodium Chloride Flush 3 Ml Syringe) 3 ml IVFLUSH QSKYFT [facility] Last Admin: 01/27/22 09:23 Dose: 3 ml Documented By: PETR Tamsulosin HCl (Tamsulosin Hcl 0.4 Mg Capsule) 0.4 mg PO BEDTIME [facility] Last Admin: 01/26/22 19:40 Dose: 0.4 mg Documented By: EROS Labs CBC & Chem 7: 01/26/22 05:48 01/27/22 06:26 Labs: Laboratory Results - last 24 hr 01/26/22 01/26/22 01/26/22 15:06 19:00 22:04 Estim Creat Clear Calc Estimated GFR POC Glucose 158 H 141 H 101 01/27/22 01/27/22 01/27/22 06:26 07:11 07:24 Estim Creat Clear Calc 40.8 Estimated GFR 36 POC Glucose 48 L* 65 01/27/22 01/27/22 07:50 11:07 Estim Creat Clear Calc Estimated GFR POC Glucose 101 118 H Assessment and Plan (1) LIVE (iron deficiency anemia): Status: Acute (2) Dry gangrene: Status: Acute (3) Type 2 diabetes mellitus: Status: Acute (4) HTN (hypertension): Status: Acute Plan A 66 years old male with PMH of DM, HTN, PAD among others who presents to the hospital as a vascular surgery patient for left great toe nonhealing ulcer. Nonhealing ulcer, dry gangrene left large toe Vascular surgery following, Pod 2 after surgery continue baby aspirin Continue atorvastatin IV vancomycin Acute on chronic anemia No evidence of bleeding reported , seems LIVE Hemoglobin improved to 8.5 after transfusion Negative occult blood Give iron replacement Monitor H and H Hypoglycemia in Type 2 diabetes Insulin, diabetic diet Hold p.o. medications Decrease Lantus to 5 units Uncontrolled HTN Increase dose of losartan, hydralazine Continue metoprolol Increase amlodipine 10 HLD Continue atorvastatin DVT PPX Heparin Thank you for the consult, will continue to monitor the patient with you Quality Stroke Does the patient have a stroke diagnosis?: No VTE Prior VTE?: No VTE Risk Level:: Surgical - moderate VTE Device Contraindication: Procedure Contraindicated VTE Drug Contraindication: N/A - Med Ordered
[2022-01-27 15:35] VITALS: BP 168/80; PULSE 75; RESP 18; TEMP 36.7; O2SAT 95
[2022-01-27 15:56] LABS: Glucose, Whole Blood 130 mg/dL (60-115)
[2022-01-27 16:18] LABS: Vancomycin Trough 10.2 mcg/mL (10.0-20.0)
[2022-01-27] MEDS: Acetaminophen 325 MG TABLET 650 MG PO (16:54)
[2022-01-27] MEDS: amLODIPine Besylate 10 MG TABLET PO (16:54)
[2022-01-27] MEDS: vancomycin HCL 1,250 MG in 0.9 % Sodium Chloride 250 ML 166.67 MG IV (16:55)
[2022-01-27 19:39] VITALS: BP 164/64; PULSE 75; RESP 18; TEMP 37.1; O2SAT 99
[2022-01-27 19:44] LABS: Glucose, Whole Blood 166 mg/dL (60-115)
[2022-01-27] MEDS: Tamsulosin HCL 0.4 MG CAPSULE PO (19:53)
[2022-01-27] MEDS: Insulin Glargine,Hum.rec.anlog 100 UNIT/ML 10 ML VIAL SUBCUT (19:54)
[2022-01-27] MEDS: Insulin Lispro 100 UNIT/ML 3 ML VIAL SUBCUT (19:54)
[2022-01-27 23:01] VITALS: BP 163/74; PULSE 70; RESP 18; TEMP 36.2; O2SAT 93
[2022-01-28] MEDS: Heparin Sodium,Porcine 5,000 UNIT/ML VIAL 5000 UNIT SUBCUT ×3 (00:14→16:27)
[2022-01-28 03:05] VITALS: BP 172/70; PULSE 70; RESP 16; TEMP 36; O2SAT 97
[2022-01-28 06:50] LABS: Creatinine Clr Calc Pharmacy 44.3; Estimated Glomerular Filt Rate 39
[2022-01-28 07:12] VITALS: BP 192/86; PULSE 86; RESP 20; TEMP 36.9; O2SAT 96
[2022-01-28 07:59] LABS: Glucose, Whole Blood 98 mg/dL (60-115)
[2022-01-28] MEDS: Morphine Sulfate 2 MG/ML CARTRIDGE IVPUSH ×2 (08:17→16:27)
[2022-01-28] MEDS: hydrALAZINE HCl 50 MG TABLET PO ×3 (08:22→20:22)
[2022-01-28] MEDS: Furosemide 40 MG TABLET PO (08:22)
[2022-01-28] MEDS: Losartan Potassium 25 MG TABLET 75 MG PO (08:22)
[2022-01-28] MEDS: Metoprolol Succinate ER 100 MG TAB.ER.24H PO (08:23)
[2022-01-28] MEDS: Aspirin Enteric Coated 81 MG TABLET.DR PO (08:23)
[2022-01-28] MEDS: Atorvastatin Calcium 80 MG TABLET PO (08:23)
[2022-01-28] MEDS: Sertraline HCL 50 MG TABLET PO (08:23)
[2022-01-28] MEDS: Acetaminophen 325 MG TABLET 650 MG PO ×2 (10:34→19:55)
[2022-01-28] MEDS: Iron Sucrose Complex 200 MG in 0.9 % Sodium Chloride 100 ML 440 MG IV (10:34)
[2022-01-28] MEDS: 0.9 % Sodium Chloride Flush 3 ML SYRINGE IVFLUSH ×2 (10:34→20:25)
[2022-01-28] MEDS: oxyCODONE HCl Immed Release 5 MG TABLET PO (10:35)
[2022-01-28 10:55] VITALS: BP 169/70; PULSE 82; RESP 20; TEMP 37.2; O2SAT 93
[2022-01-28 11:38] LABS: Glucose, Whole Blood 199 mg/dL (60-115)
[2022-01-28] MEDS: Insulin Lispro 100 UNIT/ML 3 ML VIAL SUBCUT ×2 (11:46→16:52)
--- NOTE | 2022-01-28 12:56 | HO.PM.IMPN ---
Subjective Subjective Date of Service: 01/28/22 Interval History: Seen and evaluated this morning surgery site looks clear, no drainage Significantly elevated blood pressure readings, patient reports that readings at home are within normal range Denies any overnight complaints Review of Systems No fever, chills or weakness No chest pain, palpitation No shortness of breath or coughing No abdominal pain, nausea or vomiting No urinary symptoms mild pain at site of surgery Physical Exam Vital Signs: Vital Signs: Last Vital Signs Temp 98.9 F 01/28/22 10:55 Pulse 82 01/28/22 10:55 Resp 20 01/28/22 10:55 BP 169/70 H 01/28/22 10:55 Pulse Ox 93 01/28/22 10:55 O2 Del Method 01/28/22 10:55 O2 Flow Rate 2 01/25/22 04:00 BMI result Body Mass Index 28.8 Const: Other: Constitutional : Awake, interactive, not in distress Neck : Normal inspection, Supple Cardiovascular : RRR, no JVP, no lower extremity edema Respiratory : good bilateral air entry, no crackles, wheezes or rhonchi Gastrointestinal: soft, lax, Normal bowel sounds, Non tender Skin : Warm, Dry, site of surgery clean, no drainage, distal half of foot dusky in color Neurological : Alert & oriented x3, No focal deficit , CN 2-12 within normal Objective Data Active Medications Acetaminophen (Acetaminophen 325 Mg Tablet) 650 mg PO Q6H PRN PRN Reason: Pain, Mild (Pain Scale 1-3) Last Admin: 01/28/22 10:34 Dose: 650 mg Documented By: PETR Amlodipine Besylate (Amlodipine Besylate 10 Mg Tablet) 10 mg PO DAILY@1700 [facility]; Protocol Last Admin: 01/27/22 16:54 Dose: 10 mg Documented By: PETR Aspirin (Aspirin Enteric Coated 81 Mg Tablet.) 81 mg PO DAILY [facility] Last Admin: 01/28/22 08:23 Dose: 81 mg Documented By: PETR Atorvastatin Calcium (Atorvastatin Calcium 80 Mg Tablet) 80 mg PO DAILY [facility] Last Admin: 01/28/22 08:23 Dose: 80 mg Documented By: PETR Dextrose (Dextrose 50 % 25 Gm/50 Ml Syringe) 25 gm IVPUSH Q15M PRN; Protocol PRN Reason: per Hypoglycemia Standing Ord. Fluticasone Propionate (Fluticasone Propionate Nasal 16 Gm [place]) 2 spray NOSTRIL-B DAILY PRN PRN Reason: Nasal Congestion Furosemide (Furosemide 40 Mg Tablet) 40 mg PO DAILY [facility]; Protocol Last Admin: 01/28/22 08:22 Dose: 40 mg Documented By: PETR Glucose (Glucose Gel 15 Gm Gel..Gram.) 15 gm PO Q15M PRN; Protocol PRN Reason: per Hypoglycemia Standing Ord. Heparin Sodium (Porcine) (Heparin Sodium,Porcine 5,000 Unit/Ml Vial) 5,000 unit SUBCUT Q8H [facility] Last Admin: 01/28/22 08:18 Dose: 5,000 unit Documented By: PETR Hydralazine HCl (Hydralazine Hcl 50 Mg Tablet) 50 mg PO TID [facility]; Protocol Last Admin: 01/28/22 08:22 Dose: 50 mg Documented By: PETR Hydromorphone HCl (Hydromorphone Hcl 1 Mg/Ml Syringe) 0.5 mg IVPUSH Q5M PRN; Protocol PRN Reason: Pain, Severe (Pain Scale 7-10) Last Admin: 01/26/22 00:08 Dose: 0.5 mg Documented By: STEPHANIE Iron Sucrose 200 mg/ Sodium (Chloride) 110 mls @ 440 mls/hr IV DAILY [facility] Stop: 01/29/22 09:14 Last Infusion: 01/28/22 11:47 Dose: 440 mls/hr Documented By: PETR Insulin Glargine (Insulin Glargine,Hum.Rec.Anlog 100 Unit/Ml 10 Ml Vial) 5 unit SUBCUT BEDTIME [facility] Last Admin: 01/27/22 19:54 Dose: 5 unit Documented By: EROS Insulin Human Lispro (Insulin Lispro 100 Unit/Ml 3 Ml Vial) 0 unit SUBCUT QIDACHS [facility]; Protocol Last Admin: 01/28/22 11:46 Dose: 2 unit Documented By: PETR Losartan Potassium (Losartan Potassium 25 Mg Tablet) 75 mg PO DAILY [facility]; Protocol Last Admin: 01/28/22 08:22 Dose: 75 mg Documented By: PETR Metoprolol Succinate (Metoprolol Succinate Er 100 Mg Tab.Er.24h) 100 mg PO DAILY [facility]; Protocol Last Admin: 01/28/22 08:23 Dose: 100 mg Documented By: PETR Morphine Sulfate (Morphine Sulfate 4 Mg/Ml Cartridge) 4 mg IVPUSH Q2H PRN; Protocol PRN Reason: Pain, Severe (Pain Scale 7-10) Last Admin: 01/26/22 16:21 Dose: 4 mg Documented By: JADEN Morphine Sulfate (Morphine Sulfate 2 Mg/Ml Cartridge) 2 mg IVPUSH Q4H PRN; Protocol PRN Reason: Pain, Severe (Pain Scale 7-10) Last Admin: 01/28/22 08:17 Dose: 2 mg Documented By: PETR Ondansetron HCl (Ondansetron Hcl 4 Mg/2 Ml Vial) 4 mg IVPUSH ONCE PRN PRN Reason: Nausea and Vomiting Oxycodone HCl (Oxycodone Hcl Immed Release 5 Mg Tablet) 5 mg PO Q4H PRN PRN Reason: Pain, Moderate (Pain Scale 4-6 Last Admin: 01/28/22 10:35 Dose: 5 mg Documented By: PETR Pharmacy Consult (Consult Rx Vancomycin Dosing) 1 each MISCELLANE DAILY PRN PRN Reason: Consult order Sertraline HCl (Sertraline Hcl 50 Mg Tablet) 50 mg PO DAILY [facility] Last Admin: 01/28/22 08:23 Dose: 50 mg Documented By: PETR Sodium Chloride (0.9 % Sodium Chloride Flush 3 Ml Syringe) 3 ml IVFLUSH QSHIFT [facility] Last Admin: 01/28/22 10:34 Dose: 3 ml Documented By: PETR Tamsulosin HCl (Tamsulosin Hcl 0.4 Mg Capsule) 0.4 mg PO BEDTIME [facility] Last Admin: 01/27/22 19:53 Dose: 0.4 mg Documented By: EROS Labs CBC & Chem 7: 01/26/22 05:48 01/28/22 05:49 Labs: Laboratory Results - last 24 hr 01/27/22 01/27/22 01/27/22 15:02 15:08 19:26 Estim Creat Clear Calc Estimated GFR POC Glucose 130 H 166 H Vancomycin Trough 10.2 01/28/22 01/28/22 01/28/22 05:49 07:15 10:58 Estim Creat Clear Calc 44.3 Estimated GFR 39 POC Glucose 98 199 H Vancomycin Trough Microbiology Microbiology Results: Microbiology 01/26/22 23:53 Blood Culture - Preliminary Blood - Venous No growth after 24 hours. 01/26/22 23:53 Blood Culture - Preliminary Blood - Venous No growth after 24 hours. Assessment and Plan (1) Dry gangrene: Status: Acute (2) HTN (hypertension): Status: Acute Plan A 66 years old male with PMH of DM, HTN, PAD among others who presents to the hospital as a vascular surgery patient for left great toe nonhealing ulcer. Nonhealing ulcer, dry gangrene left large toe Vascular surgery following, Pod 2 after surgery continue baby aspirin Continue atorvastatin IV vancomycin Acute on chronic anemia No evidence of bleeding reported , seems LIVE Hemoglobin improved to 8.5 after transfusion Negative occult blood Give iron replacement Monitor H and H Hypoglycemia in Type 2 diabetes Better controlled glucose readings Insulin, diabetic diet Hold p.o. medications Decrease Lantus to 5 units Uncontrolled HTN Increase dose of losartan, hydralazine Increase amlodipine 10 Continue metoprolol HLD Continue atorvastatin DVT PPX Heparin Thank you for the consult, will continue to monitor the patient with you Quality Stroke Does the patient have a stroke diagnosis?: No VTE Prior VTE?: No VTE Risk Level:: Surgical - moderate VTE Device Contraindication: Procedure Contraindicated VTE Drug Contraindication: N/A - Med Ordered
[2022-01-28 15:24] VITALS: BP 156/88; PULSE 81; RESP 18; TEMP 37.1; O2SAT 96
[2022-01-28 16:15] LABS: Glucose, Whole Blood 225 mg/dL (60-115)
[2022-01-28] MEDS: amLODIPine Besylate 10 MG TABLET PO (16:27)
[2022-01-28 19:36] VITALS: BP 164/72; PULSE 84; RESP 17; TEMP 38.3; O2SAT 97
[2022-01-28 19:51] LABS: Glucose, Whole Blood 147 mg/dL (60-115)
[2022-01-28] MEDS: Morphine Sulfate 4 MG/ML CARTRIDGE IVPUSH (20:22)
[2022-01-28] MEDS: Tamsulosin HCL 0.4 MG CAPSULE PO (20:22)
[2022-01-28] MEDS: Insulin Glargine,Hum.rec.anlog 100 UNIT/ML 10 ML VIAL SUBCUT (20:31)
[2022-01-28 23:36] VITALS: BP 174/72; PULSE 65; RESP 18; TEMP 37.2; O2SAT 96
[2022-01-29] MEDS: Heparin Sodium,Porcine 5,000 UNIT/ML VIAL 5000 UNIT SUBCUT ×2 (01:17→08:03)
[2022-01-29] MEDS: Morphine Sulfate 2 MG/ML CARTRIDGE 4 MG IVPUSH (01:22)
[2022-01-29] MEDS: oxyCODONE HCl Immed Release 5 MG TABLET PO (02:53)
[2022-01-29 03:53] VITALS: BP 140/85; PULSE 70; RESP 18; TEMP 36.5; O2SAT 95
[2022-01-29] MEDS: Morphine Sulfate 2 MG/ML CARTRIDGE IVPUSH (04:46)
--- NOTE | 2022-01-29 05:17 | PC.NURSE ---
pt'r L. great toe amputation wound is PEE, serosanguneous drainage. clean w/n.s. PEE.
[2022-01-29 05:48] LABS: Hematocrit 24.6 % (42.0-52.0); Hemoglobin 7.8 g/dl (14.0-18.0); Mean Corpuscular HGB Conc 31.7 g/dl (31.0-36.0); Mean Corpuscular Hemoglobin 30.2 pg (27.0-33.0); Mean Corpuscular Volume 95.3 fL (80.0-98.0); Mean Platelet Volume 9.9 fL (9.4-12.4); Platelet Count 413 X10*3/uL (160-400); Red Blood Count 2.58 X10*6/uL (4.60-5.80); Red Cell Distribution Width 13.2 % (11.0-16.0); White Blood Count 14.1 X10*3/uL (4.8-10.8)
[2022-01-29 06:02] LABS: Creatinine Clr Calc Pharmacy 41.5; Estimated Glomerular Filt Rate 36
[2022-01-29 06:03] LABS: Anion Gap 15 (12-20); Blood Urea Nitrogen 37 mg/dL (9-16); Calcium 8.3 mg/dL (8.4-10.2); Carbon Dioxide 25 mmol/L (22-29); Chloride 103 mmol/L (96-108); Creatinine Clr Calc Pharmacy 40.6; Estimated Glomerular Filt Rate 35; Glucose Random 114 mg/dL (60-115); Potassium 4.2 mmol/L (3.3-5.1); Sodium 139 mmol/L (135-145)
[2022-01-29 07:19] VITALS: BP 178/70; PULSE 72; RESP 17; TEMP 36.4; O2SAT 96
[2022-01-29] MEDS: Furosemide 40 MG TABLET PO (08:02)
[2022-01-29] MEDS: Atorvastatin Calcium 80 MG TABLET PO (08:02)
[2022-01-29] MEDS: Aspirin Enteric Coated 81 MG TABLET.DR PO (08:02)
[2022-01-29] MEDS: Metoprolol Succinate ER 100 MG TAB.ER.24H PO (08:02)
[2022-01-29] MEDS: Sertraline HCL 50 MG TABLET PO (08:02)
[2022-01-29] MEDS: hydrALAZINE HCl 50 MG TABLET PO (08:02)
[2022-01-29] MEDS: Losartan Potassium 25 MG TABLET 75 MG PO (08:02)
[2022-01-29] MEDS: 0.9 % Sodium Chloride Flush 3 ML SYRINGE IVFLUSH (08:03)
[2022-01-29 08:05] LABS: Glucose, Whole Blood 101 mg/dL (60-115)
[2022-01-29] MEDS: Iron Sucrose Complex 200 MG in 0.9 % Sodium Chloride 100 ML 440 MG IV (09:00)
--- NOTE | 2022-01-29 10:08 | PM.DS ---
DS: Providers Provider Date of Service: 01/29/22 Date of admission: 01/24/22 08:57 Primary care physician: Marline Richard MD Consults: 01/24/22 08:57 Consult to Hospitalist Routine Consulting Provider: Hospitalist Reason For Exam: Medical management for diabetes DS: Diagnosis Discharge Diagnosis (1) Dry gangrene: Status: Acute (2) HTN (hypertension): Status: Acute DS: Summary Hospital Course Hospital Course: Patient underwent toe amputation after angiogram. Continues to do fairly well postoperatively. He was observed in the hospital for 3 days after toe amputation. Concern is that the toe amp site is dark. Flap does not look well. He may require further amputation in the future but at the current time it is stable and would like it to demarcate or heal further. He will follow up with us approximately 2 weeks after discharge. Thank you Time Spent with Patient Time attestation: Total time spent providing and/or coordinating discharge services: Discharge coordination time: Greater than 30 minutes Quality: Safe Use of Opioids Does Pt have an Active Cancer Diagnosis on the Problem List?: No Quality: Stroke Does the patient have a stroke diagnosis?: No Physical Exam Vital Signs: Vital Signs: Last Vital Signs Temp 97.6 F 01/29/22 07:19 Pulse 72 01/29/22 07:19 Resp 17 01/29/22 07:19 BP 178/70 H 01/29/22 07:19 Pulse Ox 96 01/29/22 07:19 O2 Del Method 01/29/22 07:19 O2 Flow Rate 2 01/25/22 04:00 BMI result Body Mass Index 28.8 Const: General: cooperative, healthy appearing and no acute distress Orientation/consciousness: oriented to person, oriented to place and oriented to time HEENT: Head: Yes normal to inspection Neck: Carotids: no bruits Chest: Chest palpation & inspection: normal inspection of the chest Resp: Effort & Inspection: normal respiratory effort and able to speak in complete sentences Auscultation: clear to auscultation bilaterally Cardio: Rate: regular rate Heart sounds: S1 normal heart sound present and S2 normal heart sound present GI: Inspection: Yes normal to inspection Skin: General skin exam: no rashes or lesions noted Wounds: amputation site (Dry poorly healing amputation site) Neuro: General: oriented to person, oriented to place, oriented to time and CN's II-XI intact bilaterally Extrem: General: Yes normal to inspection, Yes full ROM and Yes no clubbing, cyanosis or edema Psych: Appearance: grossly normal and well kempt Speech and movement: Normal speech and movement present Affect: normal affect DS: Data Data Completed and Pending Completed studies during hospitalization [Text1]: Procedures Extirpation of Matter from Left Femoral Artery, Open Approach (01/03/22) Fluoroscopy of Aorta and Bilateral Lower Extremity Arteries (01/03/22) Supplement Left Femoral Artery with Synthetic Substitute, Open Approach (01/03/22) Pending studies at discharge: Pending at discharge 01/25/22 14:47 Surgical [PTH] Routine Labs on day of discharge: Laboratory Results - last 24 hr 01/28/22 01/28/22 01/28/22 10:58 15:25 19:41 WBC RBC Hgb Hct MCV MCH MCHC RDW Plt Count MPV Absolute Nucleated RBC Nucleated RBC % (auto) Sodium Potassium Chloride Carbon Dioxide Anion Gap BUN Creatinine Estim Creat Clear Calc Estimated GFR POC Glucose 199 H 225 H 147 H Random Glucose Calcium 01/29/22 01/29/22 01/29/22 05:04 05:04 05:04 WBC 14.1 H RBC 2.58 L Hgb 7.8 L Hct 24.6 L MCV 95.3 MCH 30.2 MCHC 31.7 RDW 13.2 Plt Count 413 H MPV 9.9 Absolute Nucleated RBC 0.000 Nucleated RBC % (auto) 0.0 Sodium 139 Potassium 4.2 Chloride 103 Carbon Dioxide 25 Anion Gap 15 BUN 37 H Creatinine 1.91 H 1.87 H Estim Creat Clear Calc 40.6 41.5 Estimated GFR 35 36 POC Glucose Random Glucose 114 Calcium 8.3 L 01/29/22 07:17 WBC RBC Hgb Hct MCV MCH MCHC RDW Plt Count MPV Absolute Nucleated RBC Nucleated RBC % (auto) Sodium Potassium Chloride Carbon Dioxide Anion Gap BUN Creatinine Estim Creat Clear Calc Estimated GFR POC Glucose 101 Random Glucose Calcium Preliminary micro results at discharge 01/26/22 23:53 Blood Culture - Preliminary Blood - Venous No growth after 48 hours. 01/26/22 23:53 Blood Culture - Preliminary Blood - Venous No growth after 48 hours. Discharge Plan Discharge Anticipated Discharge Date/Time: 01/29/22 10:01 Patient Disposition: Home, Self-Care Discharge Diagnosis: Status post toe amputation Referrals: Marline Richard MD [Primary Care Provider] - 1 Week Discharge Medications: New cephalexin 500 mg capsule 500 mg PO BID Qty: 20 0RF oxycodone-acetaminophen [Percocet] 5-325 mg tablet 1 tab PO Q8H PRN (Reason: pain) Qty: 20 0RF Rx Instructions: Partial Fill upon patient request. Continued tamsulosin 0.4 mg capsule 0.4 mg PO BEDTIME Qty: 30 2RF insulin degludec [Tresiba FlexTouch U-100] 100 unit/mL (3 mL) insulin pen 25 unit subcut QPM oxycodone-acetaminophen [Percocet] 5-325 mg tablet 1 tab PO Q8H PRN (Reason: pain) Qty: 14 0RF Rx Instructions: Partial Fill upon patient request. losartan 50 mg tablet 50 mg PO QAM furosemide 40 mg tablet 40 mg PO QAM Januvia 100 mg tablet 100 mg PO DAILY sertraline 50 mg tablet 50 mg PO DAILY fluticasone propionate 50 mcg/actuation spray,suspension 2 spray intranasal QAM PRN (Reason: Nasal Congestion) metformin 1,000 mg tablet 1,000 mg PO BID amlodipine 5 mg tablet 5 mg PO QPM hydralazine 25 mg tablet 25 mg PO BID Rx Instructions: TAKE WITH FOOD metoprolol succinate 100 mg tablet extended release 24 hr 100 mg PO DAILY glipizide 10 mg tablet 20 mg PO BID atorvastatin 80 mg tablet 80 mg PO DAILY povidone-iodine 10 % solution See Rx Instructions .ROUTE .COMPLEX Rx Instructions: APPLY TOPICALLY TO TOES DAILY Discharge Orders: Discharge Order (Routine); Ordered 01/29/22 Ordered By: Lyle Topete Diet: Advance to usual diet Activity on Discharge: As tolerated Stand Alone Forms: Patient Portal Discharge page Activity Restrictions/Additional Instructions: Wound care upon discharge: xeroform, 4x4 and Kerlix wrap to be changed daily. Please call Dr. Topete at [phone] for 2 week follow up for suture and staple removal Care Plan Goals: Heal foot wound Health Concerns: Diabetes and peripheral vascular disease Plan of Treatment: Local wound care Assessment: Status post toe amp
--- NOTE | 2022-01-29 10:20 | MHC.CM.PN ---
PT TO DC HOME TODAY WITH NO NEW SERVICES PT TO ARRANGE TRANSPORT
--- NOTE | 2022-01-29 10:27 | P.PNIM_ITS ---
Subjective Subjective Date of Service: 01/29/22 Interval History: Seen and evaluated this morning surgery site looks clear, no drainage Significantly elevated blood pressure readings, patient reports that readings at home are within normal range Denies any overnight complaints Review of Systems No fever, chills or weakness No chest pain, palpitation No shortness of breath or coughing No abdominal pain, nausea or vomiting No urinary symptoms mild pain at site of surgery Physical Exam Vital Signs: Vital Signs: Last Vital Signs Temp 97.6 F 01/29/22 07:19 Pulse 72 01/29/22 07:19 Resp 17 01/29/22 07:19 BP 178/70 H 01/29/22 07:19 Pulse Ox 96 01/29/22 07:19 O2 Del Method 01/29/22 07:19 O2 Flow Rate 2 01/25/22 04:00 BMI result Body Mass Index 28.8 Const: Other: Constitutional : Awake, interactive, not in distress Neck : Normal inspection, Supple Cardiovascular : RRR, no JVP, no lower extremity edema Respiratory : good bilateral air entry, no crackles, wheezes or rhonchi Gastrointestinal: soft, lax, Normal bowel sounds, Non tender Skin : Warm, Dry, site of surgery clean, no drainage, distal half of foot dusky in color Neurological : Alert & oriented x3, No focal deficit , CN 2-12 within normal Objective Data Active Medications Acetaminophen (Acetaminophen 325 Mg Tablet) 650 mg PO Q6H PRN PRN Reason: Pain, Mild (Pain Scale 1-3) Last Admin: 01/28/22 19:55 Dose: 650 mg Documented By: CLARK Amlodipine Besylate (Amlodipine Besylate 10 Mg Tablet) 10 mg PO DAILY@1700 [facility]; Protocol Last Admin: 01/28/22 16:27 Dose: 10 mg Documented By: PETR Aspirin (Aspirin Enteric Coated 81 Mg Tablet.) 81 mg PO DAILY [facility] Last Admin: 01/29/22 08:02 Dose: 81 mg Documented By: BALWINDER Atorvastatin Calcium (Atorvastatin Calcium 80 Mg Tablet) 80 mg PO DAILY [facility] Last Admin: 01/29/22 08:02 Dose: 80 mg Documented By: BALWINDER Dextrose (Dextrose 50 % 25 Gm/50 Ml Syringe) 25 gm IVPUSH Q15M PRN; Protocol PRN Reason: per Hypoglycemia Standing Ord. Fluticasone Propionate (Fluticasone Propionate Nasal 16 Gm [place]) 2 spray NOSTRIL-B DAILY PRN PRN Reason: Nasal Congestion Furosemide (Furosemide 40 Mg Tablet) 40 mg PO DAILY [facility]; Protocol Last Admin: 01/29/22 08:02 Dose: 40 mg Documented By: BALWINDER Glucose (Glucose Gel 15 Gm Gel..Gram.) 15 gm PO Q15M PRN; Protocol PRN Reason: per Hypoglycemia Standing Ord. Heparin Sodium (Porcine) (Heparin Sodium,Porcine 5,000 Unit/Ml Vial) 5,000 unit SUBCUT Q8H [facility] Last Admin: 01/29/22 08:03 Dose: 5,000 unit Documented By: BALWINDER Hydralazine HCl (Hydralazine Hcl 50 Mg Tablet) 50 mg PO TID [facility]; Protocol Last Admin: 01/29/22 08:02 Dose: 50 mg Documented By: BALWINDER Hydromorphone HCl (Hydromorphone Hcl 1 Mg/Ml Syringe) 0.5 mg IVPUSH Q5M PRN; Protocol PRN Reason: Pain, Severe (Pain Scale 7-10) Last Admin: 01/26/22 00:08 Dose: 0.5 mg Documented By: STEPHANIE Insulin Glargine (Insulin Glargine,Hum.Rec.Anlog 100 Unit/Ml 10 Ml Vial) 5 unit SUBCUT BEDTIME ANNABELLA Last Admin: 01/28/22 20:31 Dose: 5 unit Documented By: CLARK Insulin Human Lispro (Insulin Lispro 100 Unit/Ml 3 Ml Vial) 0 unit SUBCUT QIDACHS ANNABELLA; Protocol Last Admin: 01/29/22 08:04 Dose: Not Given Documented By: BALWINDER Non-Admin Reason: No Insulin Coverage Losartan Potassium (Losartan Potassium 25 Mg Tablet) 75 mg PO DAILY [facility]; Protocol Last Admin: 01/29/22 08:02 Dose: 75 mg Documented By: BALWINDER Metoprolol Succinate (Metoprolol Succinate Er 100 Mg Tab.Er.24h) 100 mg PO DAILY [facility]; Protocol Last Admin: 01/29/22 08:02 Dose: 100 mg Documented By: BALWINDER Morphine Sulfate (Morphine Sulfate 2 Mg/Ml Cartridge) 4 mg IVPUSH Q2H PRN; Protocol PRN Reason: Pain, Severe (Pain Scale 7-10) Last Admin: 01/29/22 01:22 Dose: 4 mg Documented By: CLARK Ondansetron HCl (Ondansetron Hcl 4 Mg/2 Ml Vial) 4 mg IVPUSH ONCE PRN PRN Reason: Nausea and Vomiting Pharmacy Consult (Consult Rx Vancomycin Dosing) 1 each MISCELLANE DAILY PRN PRN Reason: Consult order Sertraline HCl (Sertraline Hcl 50 Mg Tablet) 50 mg PO DAILY [facility] Last Admin: 01/29/22 08:02 Dose: 50 mg Documented By: BALWINDER Sodium Chloride (0.9 % Sodium Chloride Flush 3 Ml Syringe) 3 ml IVFLUSH QSHIFT [facility] Last Admin: 01/29/22 08:03 Dose: 3 ml Documented By: BALWINDER Tamsulosin HCl (Tamsulosin Hcl 0.4 Mg Capsule) 0.4 mg PO BEDTIME [facility] Last Admin: 01/28/22 20:22 Dose: 0.4 mg Documented By: CLARK Labs CBC & Chem 7: 01/29/22 05:04 01/29/22 05:04 Labs: Laboratory Results - last 24 hr 01/28/22 01/28/22 01/28/22 10:58 15:25 19:41 MCV MCH MCHC RDW Plt Count MPV Absolute Nucleated RBC Nucleated RBC % (auto) Anion Gap Estim Creat Clear Calc Estimated GFR POC Glucose 199 H 225 H 147 H Random Glucose Calcium 01/29/22 01/29/22 01/29/22 05:04 05:04 05:04 MCV 95.3 MCH 30.2 MCHC 31.7 RDW 13.2 Plt Count 413 H MPV 9.9 Absolute Nucleated RBC 0.000 Nucleated RBC % (auto) 0.0 Anion Gap 15 Estim Creat Clear Calc 40.6 41.5 Estimated GFR 35 36 POC Glucose Random Glucose 114 Calcium 8.3 L 01/29/22 07:17 MCV MCH MCHC RDW Plt Count MPV Absolute Nucleated RBC Nucleated RBC % (auto) Anion Gap Estim Creat Clear Calc Estimated GFR POC Glucose 101 Random Glucose Calcium Microbiology Microbiology Results: Microbiology 01/26/22 23:53 Blood Culture - Preliminary Blood - Venous No growth after 48 hours. 01/26/22 23:53 Blood Culture - Preliminary Blood - Venous No growth after 48 hours. Assessment and Plan (1) HTN (hypertension): Status: Acute Plan A 66 years old male with PMH of DM, HTN, PAD among others who presents to the hospital as a vascular surgery patient for left great toe nonhealing ulcer. Nonhealing ulcer, dry gangrene left large toe Vascular surgery following, Pod 3 after surgery continue baby aspirin Continue atorvastatin DC on PO Abx per dr Topete Acute on chronic anemia No evidence of bleeding reported , seems LIVE Hemoglobin improved to 8.5 after transfusion Negative occult blood Hypoglycemia in Type 2 diabetes restart home meds at DC Uncontrolled HTN DC on highed doses of Amlodipine 10 and Hydralazine 50 bid along other meds HLD Continue atorvastatin DVT PPX Heparin Thank you for the consult, will continue to monitor the patient with you Quality Stroke Does the patient have a stroke diagnosis?: No VTE Prior VTE?: No VTE Risk Level:: Surgical - moderate VTE Device Contraindication: Procedure Contraindicated VTE Drug Contraindication: N/A - Med Ordered
[2022-01-29 11:49] VITALS: BP 170/77; PULSE 73; RESP 18; TEMP 37.1; O2SAT 96
[2022-01-29 11:58] LABS: Glucose, Whole Blood 146 mg/dL (60-115)
== END 2022-01-29 13:52 | disposition home or self-care (01) | DRG 256 ==
LOC: HO.SSSA 09:08 → HO.S3 10:11
PROVIDERS: Anesthesiology; Internal Medicine; Student in an Organized Health Care Education/Training Program; Admitting Provider Surgery Vascular Surgery; PCP General Practice; Visit Provider Surgery Vascular Surgery
PROC: B40D1ZZ Plain Radiography of Aorta and Bilateral Lower Extremity Arteries using Low Osmolar Contrast (ICD-10-PCS; principal; 2022-01-24 07:30)
PROC: 0Y6Q0Z0 Detachment at Left 1st Toe, Complete, Open Approach (ICD-10-PCS; principal; 2022-01-25 13:00)
DX: E11.52 Type 2 diabetes mellitus with diabetic peripheral angiopathy with gangrene (principal); I70.262 Atherosclerosis of native arteries of extremities with gangrene, left leg; M86.9 Osteomyelitis, unspecified; E11.69 Type 2 diabetes mellitus with other specified complication; L97.529 Non-pressure chronic ulcer of other part of left foot with unspecified severity; I10 Essential (primary) hypertension; E78.5 Hyperlipidemia, unspecified; E11.649 Type 2 diabetes mellitus with hypoglycemia without coma; D50.9 Iron deficiency anemia, unspecified; E78.49 Other hyperlipidemia; Z20.822 Contact with and (suspected) exposure to COVID-19; Z87.891 Personal history of nicotine dependence; Z79.4 Long term (current) use of insulin; Z79.84 Long term (current) use of oral hypoglycemic drugs; Z79.899 Other long term (current) drug therapy
CPT/HCPCS: 0241U; 36247; 36415; 71045; 75630; 76937; 80048; 80202; 82565; 82947; 83540; 83880; 84484; 85025; 85027; 85610; 86850; 86900; 86901; 86923; 87040; 88305; 88311; 99152; 99153; C1769; C1887; J1170; J1756; J1940; J2250; J2270; J2795; J3010; J3370; P9016; Q9967

== ENCOUNTER 2022-02-02 04:05 | Inpatient (IN) | payer OTHER, SELFPAY ==
[2022-02-02] VITALS (13 sets, daily range): BP systolic 126–201; BP diastolic 71–100; PULSE 77–90; RESP 14–20; TEMP 36.6–37.8; O2SAT 94–97; BMI 33.9; BMI 28.5
--- NOTE | ~2022-02-02 | XR_ITS ---
EXAMINATION: XR FOOT, LEFT CLINICAL INFORMATION: Status post amputation. Question bony erosion. COMPARISON: None TECHNIQUE: AP and lateral views of the left foot. FINDINGS: Amputation of the first digit from the metatarsophalangeal joint. No acute fractures. No osseous erosion. Mild soft tissue swelling of the forefoot. Plantar heel spur. XR/XR foot LT 2V IMPRESSION: Amputation of the first digit from the metatarsophalangeal joint. No osseous erosion. Soft tissue swelling.
--- NOTE | ~2022-02-02 | US_ITS ---
EXAMINATION: US VENOUS ULTRASOUND WITH DOPPLER LOWER EXTREMITY, LEFT CLINICAL INFORMATION: Cellulitis and edema COMPARISON: None TECHNIQUE: Ultrasound of the deep veins is performed from the hip to the calf with compression sonography and color and pulse Doppler assessment. Spectral analysis with color-flow imaging is performed. FINDINGS: There is normal venous compression and respiratory variation and augmented flow. The visualized common femoral vein, superficial femoral vein, profunda femoral vein, popliteal vein, and the trifurcation region shows no evidence of deep venous thrombosis. There is no Roth's cyst. There is diffuse soft tissue swelling/edema. US/US venous duplex LE LT IMPRESSION: No DVT demonstrated in the left lower extremity.
--- NOTE | ~2022-02-02 | XR_ITS ---
EXAMINATION: XR CHEST CLINICAL INFORMATION: SOB COMPARISON: Chest 02/02/2022 TECHNIQUE: Frontal view of the chest was obtained. FINDINGS: The lungs are well-expanded with patchy opacity seen in the right upper lobe and left parahilar region of lingular segment. Infiltrate is suspected. Mild increased palmar vascularity is seen as well with borderline heart size. Moderate spondylosis lower dorsal spine. XR/XR chest 1V IMPRESSION: 1. New patchy opacity right upper lobe and left parahilar region of lingular segment. Suspect infiltrate. 2. Mild increased pulmonary vascularity question mild congestion.
--- NOTE | ~2022-02-02 | XR_ITS ---
EXAMINATION: XR CHEST CLINICAL INFORMATION: Shortness of breath COMPARISON: Previous x-ray 01/25/2022 TECHNIQUE: Frontal view of the chest was obtained. FINDINGS: The cardiac silhouette is enlarged but stable. There are increased hilar markings questionable for pulmonary venous redistribution versus airways disease. The lungs are otherwise clear. There is no pleural effusion or pneumothorax. There are degenerative changes of the spine. There are postsurgical changes to the left shoulder. XR/XR chest 1V IMPRESSION: Enlarged cardiac silhouette and question pulmonary venous redistribution versus airways disease.
[2022-02-02 04:50] LABS: Basophils Absolute Auto 0.1 X10*3/uL (0.0-0.2); Basophils Percent Auto 0.3 % (0-2); Eosinophils Absolute Auto 0.1 X10*3/uL (0.0-0.4); Eosinophils Percent Auto 0.5 % (0-4); Hematocrit 26.3 % (42.0-52.0); Hemoglobin 8.5 g/dl (14.0-18.0); Imm Gran Abs Auto 0.09 X10*3/uL (0.00-0.03); Imm Gran Pct Auto 0.5 % (0.0-0.4); Lymphocytes Absolute Auto 1.3 X10*3/uL (1.2-4.9); Lymphocytes Percent Auto 6.8 % (20-40); MANUAL DIFF FLAG SCAN; Mean Corpuscular HGB Conc 32.3 g/dl (31.0-36.0); Mean Corpuscular Hemoglobin 29.7 pg (27.0-33.0); Mean Platelet Volume 9.3 fL (9.4-12.4); Monocytes Absolute Auto 1.7 X10*3/uL (0.1-1.2); Monocytes Percent Auto 9.2 % (2-11); Neutrophils Absolute Auto 15.6 x10*3/uL (2.0-8.3); Neutrophils Percent Auto 82.7 % (45-73); Platelet Count 453 X10*3/uL (160-400); Red Blood Count 2.86 X10*6/uL (4.60-5.80); Red Cell Distribution Width 13.2 % (11.0-16.0); SCAN SMEAR FLAG 1; White Blood Count 18.8 X10*3/uL (4.8-10.8)
[2022-02-02 05:02] LABS: Lactic Acid 1.1 mmol/L (0.5-2.0)
[2022-02-02 05:07] LABS: SLIDE REVIEW VERIFIED
--- NOTE | 2022-02-02 05:11 | ED_ITS ---
HPI - General Adult General Chief complaint: Extremity Injury, Lower Stated complaint: PAIN S/P RECENT L BIG TOE AMP PER EMS Time Seen by Provider: 02/02/22 05:07 Source: patient Mode of arrival: ambulatory Limitations: no limitations History of Present Illness HPI narrative: Patient with peripheral vascular disease status post left greater toe amputation on 01/24/22, chronic back pain, diabetes, hypertension comes here for increased pain at the site of amputation back pain which is chronic also noticed slight serous discharge at the site of amputation. No fever no chills no cough no shortness of breath patient is on cephalexin at home Related Data Home Medications Medication Instructions Recorded Confirmed atorvastatin 80 mg tablet 80 mg PO DAILY 04/27/21 01/24/22 fluticasone propionate 50 2 spray intranasal QAM PRN Nasal 04/27/21 01/24/22 mcg/actuation nasal Congestion spray,suspension furosemide 40 mg tablet 40 mg PO QAM 04/27/21 01/24/22 glipizide 10 mg tablet 20 mg PO BID 04/27/21 01/24/22 losartan 50 mg tablet 50 mg PO QAM 04/27/21 01/24/22 metformin 1,000 mg tablet 1,000 mg PO BID 04/27/21 01/24/22 metoprolol succinate 100 mg 100 mg PO DAILY 04/27/21 01/24/22 tablet,extended release 24 hr sertraline 50 mg tablet 50 mg PO DAILY 04/27/21 01/24/22 sitagliptin 100 mg tablet (Januvia) 100 mg PO DAILY 04/27/21 01/24/22 povidone-iodine 10 % topical See Rx Instructions .Route .COMPLEX 12/28/21 01/24/22 solution insulin degludec 100 unit/mL (3 25 unit subcut QPM 01/03/22 01/24/22 mL) subcutaneous pen (Tresiba FlexTouch U-100 insulin) Previous Rx's Medication Instructions Recorded tamsulosin 0.4 mg capsule 0.4 mg PO BEDTIME #30 caps 05/09/20 oxycodone-acetaminophen 5 mg-325 1 tab PO Q8H PRN pain #14 tabs 01/11/22 mg tablet (Percocet) amlodipine 10 mg tablet 10 mg PO DAILY@1700 30 days #30 01/29/22 tabs cephalexin 500 mg capsule 500 mg PO BID #20 caps 01/29/22 hydralazine 25 mg tablet 50 mg PO BID 120 days #480 tabs 01/29/22 oxycodone-acetaminophen 5 mg-325 1 tab PO Q8H PRN pain #20 tabs 01/29/22 mg tablet (Percocet) Allergies Allergy/AdvReac Type Severity Reaction Status Date / Time No Known Allergies Allergy Verified 01/24/22 06:12 [No Known Allergies*] Review of Systems Review of Systems: Yes all other systems are reviewed and are negative [facility] Past Medical History Medical History Diabetes High cholesterol HTN (hypertension) Hyperlipidemia associated with type 2 diabetes mellitus Kidney disease Type 2 diabetes mellitus Surgical History H/O shoulder surgery History of amputation of right forefoot Social History Social History Household Members: None Housing: Apartment Do you presently have visiting nurse or other home services: Yes ([employer]) Alcohol intake: current Alcohol intake frequency: holidays/special occasions only Alcohol type: beer Patient Tobacco Use Status: Former Tobacco user Smoked in Last 30 Days: No Substance Use Type: Crack/Cocaine Substance Use Frequency: Occasionally Advance Directives: No Advance Directives Information Provided: No service: No Current occupational status: retired Physical Exam ED Vital Signs: Vital Signs - 24 hr 02/02/22 04:27 02/02/22 05:41 02/02/22 06:00 Temperature 98.9 F 99.4 F Pulse Rate 78 89 Respiratory Rate 16 14 18 Blood Pressure 188/84 H 192/71 H Pulse Oximetry 96 94 Oxygen Delivery Method Room Air Room Air BMI result Body Mass Index 28.5 Appearance: Alert. Oriented X3. Eyes: PERRLA, No Nystagmus ENT: Pharynx normal. Oral Mucosa moist Neck: Normal inspection. Neck supple. CVS: Normal heart rate and rhythm. Pulses normal. Respiratory: No respiratory distress. Equal air entry bilateral, no wheezing/rales/rhonchi Abdomen: Soft and nontender. Bowel sounds are present, no mass palpable, no CVA tenderness Skin: Skin warm and dry. Normal skin color. Normal skin turgor. Extremities: No lower extremity edema. No calf tenderness amputated side seems to be healthy no significant discharge tender to touch slight erythema at the dorsum of the foot Neuro: Oriented X 3. No motor deficit. Medications Administered Discontinued Medications Generic Name Dose Route Start Last Admin Trade Name Tuckerq PRN Reason Stop Dose Admin Piperacillin Sod/Tazobactam 50 mls @ 100 mls/hr 02/02/22 05:20 02/02/22 06:19 Sod 3.375 gm/ Sodium Chloride IV 02/02/22 05:49 Infused ONCE ONE Infusion Sodium Chloride 1,000 mls @ 999 mls/hr 02/02/22 05:21 02/02/22 05:42 Ns IV 02/02/22 06:21 999 mls/hr .Q1H1M ONE Administration Morphine Sulfate 4 mg 02/02/22 05:20 02/02/22 05:41 Morphine Sulfate 4 Mg/Ml Cartridge IVPUSH 02/02/22 05:21 4 mg ONCE ONE Administration Protocol Ondansetron HCl 4 mg 02/02/22 05:20 02/02/22 05:41 Ondansetron Hcl 4 Mg/2 Ml Vial IVPUSH 02/02/22 05:21 4 mg ONCE ONE Administration Medical Decision Making [facility] Narrative Medical decision making narrative: Patient is status post amputation diabetic peripheral vasc disease came with increased pain lab workup showed leukocytosis normal lactic acid level will do the x-ray to look for bony erosion patient may need IV antibiotics for possible infection of the site along with cellulitis X-ray negative for any bony erosion ESR elevated to 117 CRP also elevated to 16.79 Lab Data Lab results reviewed: Yes I reviewed the patient's lab results. Result diagrams: 02/02/22 04:44 02/02/22 05:33 Labs: Lab Results 02/02/22 02/02/22 02/02/22 Range/Units 04:40 04:44 04:44 WBC 18.8 H (4.8-10.8) X10*3/uL RBC 2.86 L (4.60-5.80) X10*6/uL Hgb 8.5 L (14.0-18.0) g/dl Hct 26.3 L (42.0-52.0) % MCV 92.0 (80.0-98.0) fL MCH 29.7 (27.0-33.0) pg MCHC 32.3 (31.0-36.0) g/dl RDW 13.2 (11.0-16.0) % Plt Count 453 H (160-400) X10*3/uL MPV 9.3 L (9.4-12.4) fL Immature Gran % (Auto) 0.5 H (0.0-0.4) % Neut % (Auto) 82.7 H (45-73) % Lymph % (Auto) 6.8 L (20-40) % [place] % (Auto) 9.2 (2-11) % Eos % (Auto) 0.5 (0-4) % Baso % (Auto) 0.3 (0-2) % Lymph # (Auto) 1.3 (1.2-4.9) X10*3/uL [place] # (Auto) 1.7 H (0.1-1.2) X10*3/uL Eos # (Auto) 0.1 (0.0-0.4) X10*3/uL Baso # (Auto) 0.1 (0.0-0.2) X10*3/uL Abs Immat Gran (auto) 0.09 H (0.00-0.03) X10*3/uL Absolute Neuts (auto) 15.6 H (2.0-8.3) x10*3/uL Absolute Nucleated RBC 0.000 (0.0-0.012) X10*3/uL Nucleated RBC % (auto) 0.0 (0.0-0.2) /100WBC Smear Tech's Comments VERIFIED ESR 117 H (0-15) MM/HR Sodium (135-145) mmol/L Potassium (3.3-5.1) mmol/L Chloride (96-108) mmol/L Carbon Dioxide (22-29) mmol/L Anion Gap (12-20) BUN (9-16) mg/dL Creatinine (0.5-1.4) mg/dL Estim Creat Clear Calc Estimated GFR Random Glucose (60-115) mg/dL Lactic Acid 1.1 (0.5-2.0) mmol/L Calcium (8.4-10.2) mg/dL Total Bilirubin (0.0-1.0) mg/dL AST (5-37) U/L ALT (0-40) U/L Alkaline Phosphatase (39-117) U/L C-Reactive Protein (< or = 0.50) mg/dL Total Protein (6.5-8.0) g/dL Albumin (3.5-5.0) g/dL COVID-19 (YANELIS) (Negative) COVID-19 Clin Com 02/02/22 02/02/22 Range/Units 05:25 05:33 WBC (4.8-10.8) X10*3/uL RBC (4.60-5.80) X10*6/uL Hgb (14.0-18.0) g/dl Hct (42.0-52.0) % MCV (80.0-98.0) fL MCH (27.0-33.0) pg MCHC (31.0-36.0) g/dl RDW (11.0-16.0) % Plt Count (160-400) X10*3/uL MPV (9.4-12.4) fL Immature Gran % (Auto) (0.0-0.4) % Neut % (Auto) (45-73) % Lymph % (Auto) (20-40) % [place] % (Auto) (2-11) % Eos % (Auto) (0-4) % Baso % (Auto) (0-2) % Lymph # (Auto) (1.2-4.9) X10*3/uL [place] # (Auto) (0.1-1.2) X10*3/uL Eos # (Auto) (0.0-0.4) X10*3/uL Baso # (Auto) (0.0-0.2) X10*3/uL Abs Immat Gran (auto) (0.00-0.03) X10*3/uL Absolute Neuts (auto) (2.0-8.3) x10*3/uL Absolute Nucleated RBC (0.0-0.012) X10*3/uL Nucleated RBC % (auto) (0.0-0.2) /100WBC Smear Tech's Comments ESR (0-15) MM/HR Sodium 132 L (135-145) mmol/L Potassium 5.8 H D (3.3-5.1) mmol/L Chloride 100 (96-108) mmol/L Carbon Dioxide 20 L (22-29) mmol/L Anion Gap 18 (12-20) BUN 27 H (9-16) mg/dL Creatinine 1.58 H (0.5-1.4) mg/dL Estim Creat Clear Calc 59.7 Estimated GFR 44 Random Glucose 130 H (60-115) mg/dL Lactic Acid (0.5-2.0) mmol/L Calcium 8.5 (8.4-10.2) mg/dL Total Bilirubin 0.4 (0.0-1.0) mg/dL AST 76 H (5-37) U/L ALT 54 H (0-40) U/L Alkaline Phosphatase 127 H D (39-117) U/L C-Reactive Protein 16.79 H (< or = 0.50) mg/dL Total Protein 7.0 (6.5-8.0) g/dL Albumin 2.7 L (3.5-5.0) g/dL COVID-19 (YANELIS) Negative (Negative) COVID-19 Clin Com See Note Discharge Plan Discharge Clinical Impression: Diabetic foot infection, Cellulitis Patient Disposition: Admitted As Inpatient
[2022-02-02] MEDS: Morphine Sulfate 4 MG/ML CARTRIDGE IVPUSH (05:41)
[2022-02-02] MEDS: ondansetron HCL 4 MG/2 ML VIAL IVPUSH (05:41)
[2022-02-02] MEDS: Piperacillin Sodium/Tazobactam 3.375 GM in 0.9 % Sodium Chloride 50 ML IV ×4 (05:42→23:58)
[2022-02-02] MEDS: 0.9 % Sodium Chloride 1,000 ML 999 ML IV (05:42)
[2022-02-02 05:49] LABS: COVID-19 Test Negative (Negative)
[2022-02-02 06:03] LABS: Alanine Aminotransferase 54 U/L (0-40); Albumin Level 2.7 g/dL (3.5-5.0); Alkaline Phosphatase 127 U/L (39-117); Anion Gap 18 (12-20); Aspartate Amino Transferase 76 U/L (5-37); Bilirubin Total 0.4 mg/dL (0.0-1.0); Blood Urea Nitrogen 27 mg/dL (9-16); C Reactive Protein 16.79 mg/dL (< or = 0.50); Calcium 8.5 mg/dL (8.4-10.2); Carbon Dioxide 20 mmol/L (22-29); Chloride 100 mmol/L (96-108); Creatinine Clr Calc Pharmacy 59.7; Estimated Glomerular Filt Rate 44; Glucose Random 130 mg/dL (60-115); Potassium 5.8 mmol/L (3.3-5.1); Sodium 132 mmol/L (135-145)
--- NOTE | 2022-02-02 06:34 | PC.NURSE ---
Dr. Hollins notified of pt's BP 192/71, no new orders at this time.
[2022-02-02 06:35] LABS: Erythrocyte Sedimentation Rate 117 MM/HR (0-15)
--- NOTE | 2022-02-02 06:40 | PC.NURSE ---
Per Stephanie, pharmacist continue running first loading dose of Vanco 1 gm IV, administer another Vanco 1 gm IV dose at 07:20 am for total dose of 2 gm today.
--- NOTE | 2022-02-02 06:50 | PHA.PROG ---
Admission Date/Time: Indication: Weight in k.3 kg Adjusted body weight in K.4 [place] body weight in K.6 Obesity Dosing Indication % IBW: 28.5 Serum Creatinine - Last 168 Hours 02/02/22 05:33 Creatinine 1.58 H Estimated CrCl and GFR - Last 168 Hours 02/02/22 05:33 Estim Creat Clear Calc 59.7 Estimated GFR 44 Vancomycin Loading Dose: 2000 MG Current Vancomycin Dosing Regimen: 1500 MG Q24 Vancomycin Monitoring using AUC goal of 400 - 600 range with trough as surrogate marker: EXPECTED AUC 455 AFTER 3RD DOSE Date and Time for next Vancomycin Level to be drawn: 02/04 @0600 Pharmacist Comments on Vancomycin Plan: SCR IS CURRENTLY 1.58. WILL CONTINUE TO MONITOR DAILY. CONFIRMED PATIENT WEIGHT WITH NURSE IT WAS ENTERED INTO COMPUTER INCORRECTLY AT FIRST. CORRECT WEIGHT IS 95.3 PER BED SCALE. Vancomycin dosing will take advantage of [employer] as a clinical decision support tool that uses Bayesian modeling to calculate individual patient's pharmacokinetic parameters and forecast the patient's drug concentration time course with the target goal AUC 24 range of 400 - 600 mg/L/hr.
--- NOTE | 2022-02-02 07:35 | PC.NURSE ---
dr. giang at bedside, pt aware of plan of care.
[2022-02-02] MEDS: vancomycin HCL 1,000 MG in 0.9 % Sodium Chloride 250 ML 270 MG IV (07:50)
--- NOTE | 2022-02-02 08:06 | PC.NURSE ---
pt a/o x 4 no sob/pawel noted speaks in full sentences. lungs - diminished all lobes. o2 sat 91% o r/a o2 applied at 2l/.m via n/c. 93% on 2l/m. heart sound regular. abd distended, soft and non-tender. r foot all toes amputated. l foot - l great toe amputated. l foot is swollen and rafa and very tender pain 10/10., dressing done by dr. giang earlier. pt aware of plan of care for admission.
[2022-02-02] MEDS: 0.9 % Sodium Chloride Flush 3 ML SYRINGE IVFLUSH (08:15)
--- NOTE | 2022-02-02 08:15 | P.HPHOSP_ITS ---
History of Present Illness Date of Service: 02/02/22 Chief Complaint: cellulitis 66-year-old insulin dependent male presents to hospital with increased redness swelling and warmth 2 left foot amputation site and lower leg. On 01/25/22 he underwent left great toe amputation by Dr. Topete; subsequent postoperative course unremarkable. He was discharged home 01/29/22 on an oral course of Keflex. He states that over the next 3 days, he developed more pain and redness to mid lower leg. States leg was warm and his pain has increased. He states compliance with therapies. He presents to emergency room found to have a white count of 18.8; ESR 117 and CRP 16.7 . He has noted moderate left leg swelling that correlates with onset of symptoms Review of Systems 2 Review of Systems: Denies chest pain Denies shortness of breath Denies nausea vomiting diarrhea Denies fever chills PMFSH Medical History Diabetes High cholesterol HTN (hypertension) Hyperlipidemia associated with type 2 diabetes mellitus Kidney disease Type 2 diabetes mellitus Surgical History H/O shoulder surgery History of amputation of right forefoot Social History Household Members: None Housing: Apartment Do you presently have visiting nurse or other home services: Yes ([employer]) Alcohol intake: current Alcohol intake frequency: holidays/special occasions only Alcohol type: beer Patient Tobacco Use Status: Former Tobacco user Smoked in Last 30 Days: No Substance Use Type: Crack/Cocaine Substance Use Frequency: Occasionally Advance Directives: No Advance Directives Information Provided: No service: No Current occupational status: retired [employer] Allergies Allergy/AdvReac Type Severity Reaction Status Date / Time No Known Allergies Allergy Verified 01/24/22 06:12 [No Known Allergies*] Active Medications: Current Medications Enoxaparin Sodium (Enoxaparin Sodium 30 Mg/0.3 Ml Syringe) 30 mg SUBCUT Q24H ANNABELLA Vancomycin HCl 1,000 mg/ (Sodium Chloride) 270 mls @ 270 mls/hr IV ONCE ONE Stop: 02/02/22 08:19 Last Admin: 02/02/22 07:50 Dose: 270 mls/hr Vancomycin HCl 1,500 mg/ (Sodium Chloride) 500 mls @ 333.333 mls/hr IV Q24H ANNABELLA Sodium Chloride (Ns) 1,000 mls @ 100 mls/hr IVCONT .Q10H ANNABELLA Piperacillin Sod/Tazobactam (Sod 3.375 gm/ Sodium Chloride) 50 mls @ 100 mls/hr IV Q6H ANNA[facility]LL[facility] Morphine Sulfate (Morphine Sulfate 4 Mg/Ml Cartridge) 4 mg IVPUSH Q4H PRN; Protocol PRN Reason: Pain, Severe (Pain Scale 7-10) Oxycodone HCl (Oxycodone Hcl Immed Release 5 Mg Tablet) 10 mg PO Q6H PRN PRN Reason: Pain, Moderate (Pain Scale 4-6 Pharmacy Consult (Consult Rx Vancomycin Dosing) 1 each MISCELLANE DAILY PRN PRN Reason: Consult order Pharmacy Consult (Consult Rx Perform Med Rec) 1 each MISCELLANE ONCE PRN PRN Reason: Consult order Sodium Chloride (0.9 % Sodium Chloride Flush 3 Ml Syringe) 3 ml IVFLUSH QSHIFT [facility] Home Medications Medication Instructions Recorded Confirmed Last Taken Type atorvastatin 80 mg tablet 80 mg PO DAILY 04/27/21 02/02/22 02/01/22 History fluticasone propionate 50 2 spray intranasal QAM PRN Nasal 04/27/21 02/02/22 02/01/22 History mcg/actuation nasal Congestion spray,suspension furosemide 40 mg tablet 40 mg PO QAM 04/27/21 02/02/22 02/01/22 History glipizide 10 mg tablet 20 mg PO BID 04/27/21 02/02/22 02/01/22 History losartan 50 mg tablet 50 mg PO QAM 04/27/21 02/02/22 02/01/22 History metformin 1,000 mg tablet 1,000 mg PO BID 04/27/21 02/02/22 02/01/22 History metoprolol succinate 100 mg 100 mg PO DAILY 04/27/21 02/02/22 02/01/22 History tablet,extended release 24 hr sertraline 50 mg tablet 50 mg PO DAILY 04/27/21 02/02/22 02/01/22 History sitagliptin 100 mg tablet (Januvia) 100 mg PO DAILY 04/27/21 02/02/22 02/01/22 History povidone-iodine 10 % topical See Rx Instructions .Route .COMPLEX 12/28/21 02/02/22 02/01/22 History solution insulin degludec 100 unit/mL (3 25 unit subcut QPM 01/03/22 02/02/22 02/01/22 History mL) subcutaneous pen (Tresiba FlexTouch U-100 insulin) Physical Exam Vital Signs and Narrative: Vital Signs: Last Vital Signs Temp 99.2 F 02/02/22 08:05 Pulse 86 02/02/22 08:05 Resp 17 02/02/22 08:05 BP 201/85 H 02/02/22 08:05 Pulse Ox 97 02/02/22 08:05 O2 Del Method 02/02/22 08:05 O2 Flow Rate 2 02/02/22 08:05 BMI result Body Mass Index 28.5 Const: Other: Uncomfortable appearing lying in stretcher. No acute distress Resp: Other: Clear to auscultation bilaterally no rales rhonchi or wheezes Cardio: Other: No S4; positive S1-S2; no S3 murmurs rubs or gallops GI: Other: Soft nontender nondistended with normoactive bowel sounds Skin: Other: Moderate erythema around the wound site with necrotic tissue at wound base Extrem: Other: Left lower extremity edema Results Labs CBC and Chem 7: 02/02/22 04:44 02/02/22 05:33 Labs: Laboratory Results - last 24 hr 02/02/22 02/02/22 02/02/22 04:40 04:44 04:44 MCV 92.0 MCH 29.7 MCHC 32.3 RDW 13.2 Plt Count 453 H MPV 9.3 L Immature Gran % (Auto) 0.5 H Neut % (Auto) 82.7 H Lymph % (Auto) 6.8 L [place] % (Auto) 9.2 Eos % (Auto) 0.5 Baso % (Auto) 0.3 Lymph # (Auto) 1.3 [place] # (Auto) 1.7 H Eos # (Auto) 0.1 Baso # (Auto) 0.1 Abs Immat Gran (auto) 0.09 H Absolute Neuts (auto) 15.6 H Absolute Nucleated RBC 0.000 Nucleated RBC % (auto) 0.0 Smear Tech's Comments VERIFIED ESR 117 H Anion Gap Estim Creat Clear Calc Estimated GFR Random Glucose Lactic Acid 1.1 Calcium Total Bilirubin AST ALT Alkaline Phosphatase C-Reactive Protein Total Protein Albumin COVID-19 (YANELIS) COVID-19 Clin Com 02/02/22 02/02/22 05:25 05:33 MCV MCH MCHC RDW Plt Count MPV Immature Gran % (Auto) Neut % (Auto) Lymph % (Auto) [place] % (Auto) Eos % (Auto) Baso % (Auto) Lymph # (Auto) [place] # (Auto) Eos # (Auto) Baso # (Auto) Abs Immat Gran (auto) Absolute Neuts (auto) Absolute Nucleated RBC Nucleated RBC % (auto) Smear Tech's Comments ESR Anion Gap 18 Estim Creat Clear Calc 59.7 Estimated GFR 44 Random Glucose 130 H Lactic Acid Calcium 8.5 Total Bilirubin 0.4 AST 76 H ALT 54 H Alkaline Phosphatase 127 H D C-Reactive Protein 16.79 H Total Protein 7.0 Albumin 2.7 L COVID-19 (YANELIS) Negative COVID-19 Clin Com See Note Imaging Radiologist's Impressions: Impressions Foot X-Ray 02/02/22 06:03 IMPRESSION: Amputation of the first digit from the metatarsophalangeal joint. No osseous erosion. Soft tissue swelling. Assessment and Plan (1) Diabetic foot infection: Status: Acute (2) Type 2 diabetes mellitus: Status: Acute (3) CKD stage 3 due to type 2 diabetes mellitus: Status: Acute (4) HTN (hypertension): Status: Acute Plan 66-year-old insulin dependent male presents to hospital with increased redness swelling and warmth 2 left foot amputation site and lower leg. On 01/25/22 he underwent left great toe amputation by Dr. Topete; subsequent postoperative course unremarkable. He was discharged home 01/29/22 on an oral course of Keflex. Returns today with increased pain erythema and warmth left lower extremity 1. Diabetic foot infection (left) -ESR/CRP markedly elevated highly suspicious for osteomyelitis -vancomycin/Zosyn pending cultures -consult vascular surgery -ID consult;( hold off on further imaging pending ID consult given inflammatory markers... 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 CKD 3 with hyperkalemia -normal saline at 100 mL/hour -follow renals/divalents -Lokelma 10 mg x 1 dose; recheck potassium in am 4.HTN (uncontrolled) -aggressively treat pain; repeat blood pressure 1 more comfortable -add back outpatient therapies -adjust as indicated Full code Lovenox Patient will require inpatient stay of at least 2 midnights going forward for IV antibiotics to treat likely osteomyelitis. This cannot be achieved and a lesser acute setting. Quality Stroke Does the patient have a stroke diagnosis?: No VTE Prior VTE?: No VTE Risk Level:: Medical - moderate - high VTE Device Contraindication: Treatment Not Indicated VTE Drug Contraindication: N/A - Med Ordered
[2022-02-02] MEDS: HYDROmorphone HCl 0.5 MG/0.5 ML SYRINGE IVPUSH (08:31)
--- NOTE | 2022-02-02 08:31 | PHA.MEDREC ---
Pharmacy Consult ? Medication Reconciliation Pharmacy has completed the medication reconciliation.
[2022-02-02] MEDS: Enoxaparin Sodium 30 MG/0.3 ML SYRINGE SUBCUT (08:33)
[2022-02-02] MEDS: 0.9 % Sodium Chloride 1,000 ML 100 ML IVCONT ×2 (08:34→22:29)
--- NOTE | 2022-02-02 09:05 | PC.NURSE ---
rn to rn report given to hosea.
--- NOTE | 2022-02-02 09:25 | PC.NURSE ---
bedside ultrasound at bedside.
[2022-02-02] MEDS: oxyCODONE HCl Immed Release 5 MG TABLET 10 MG PO ×2 (09:46→17:18)
[2022-02-02 11:26] LABS: Glucose, Whole Blood 111 mg/dL (60-115)
[2022-02-02] MEDS: HYDROmorphone HCl 1 MG/ML SYRINGE 0.5 MG IVPUSH (13:58)
[2022-02-02 15:45] LABS: Glucose, Whole Blood 177 mg/dL (60-115)
[2022-02-02] MEDS: amLODIPine Besylate 10 MG TABLET PO (16:57)
[2022-02-02] MEDS: metFORMIN HCl 1,000 MG TABLET 1000 MG PO (16:58)
[2022-02-02] MEDS: SITagliptin Phosphate 100 MG TABLET PO (16:58)
[2022-02-02] MEDS: Insulin Lispro 100 UNIT/ML 3 ML VIAL SUBCUT ×2 (16:58→21:42)
[2022-02-02 20:05] LABS: Glucose, Whole Blood 156 mg/dL (60-115)
[2022-02-02] MEDS: hydrALAZINE HCl 50 MG TABLET PO (21:41)
[2022-02-02] MEDS: glipiZIDE 10 MG TABLET 20 MG PO (21:41)
[2022-02-02] MEDS: Insulin Glargine,Hum.rec.anlog 100 UNIT/ML 10 ML VIAL 18 UNIT SUBCUT (21:41)
[2022-02-02] MEDS: Tamsulosin HCL 0.4 MG CAPSULE PO (21:43)
--- NOTE | 2022-02-02 23:16 | W.PM.IDCN ---
History of Present Illness Data of Consult Service Date: 02/02/22 Requesting physician: Christiano Gonzalez Primary Care Provider: Marline Richard MD [facility] Reason for consult: left foot erythema He presents to hospital with worsening cellulitis left great toe and forefoot. Bauer has had R TMA and left great toe amputation on 01/29 and given Keflex He has had worsening erythema of foot. Review of Systems Review of Systems: Yes all other systems are reviewed and are negative PMFSH Past Medical History Medical History Diabetes High cholesterol HTN (hypertension) Hyperlipidemia associated with type 2 diabetes mellitus Kidney disease Type 2 diabetes mellitus Family History Family history: reviewed and not pertinent Surgical History Surgical History H/O shoulder surgery History of amputation of right forefoot Social History Social History Household Members: None Housing: Apartment Do you presently have visiting nurse or other home services: Yes Alcohol intake: current Alcohol intake frequency: holidays/special occasions only Alcohol type: beer Patient Tobacco Use Status: Former Tobacco user Substance Use Type: Crack/Cocaine Advance Directives Date on File: 02/02/22 service: No Current occupational status: retired Meds Allergies Allergy/AdvReac Type Severity Reaction Status Date / Time No Known Allergies Allergy Verified 01/24/22 06:12 [No Known Allergies*] Active Medications: Current Medications Amlodipine Besylate (Amlodipine Besylate 10 Mg Tablet) 10 mg PO DAILY@1700 [facility]; Protocol Last Admin: 02/02/22 16:57 Dose: 10 mg Atorvastatin Calcium (Atorvastatin Calcium 80 Mg Tablet) 80 mg PO DAILY [facility] Enoxaparin Sodium (Enoxaparin Sodium 30 Mg/0.3 Ml Syringe) 30 mg SUBCUT Q24H [facility] Last Admin: 02/02/22 08:33 Dose: 30 mg Fluticasone Propionate (Fluticasone Propionate Nasal 16 Gm [place]) 2 spray NOSTRIL-B DAILY PRN PRN Reason: Nasal Congestion Furosemide (Furosemide 40 Mg Tablet) 40 mg PO DAILY [facility]; Protocol Glipizide (Glipizide 10 Mg Tablet) 20 mg PO BID [facility] Last Admin: 02/02/22 21:41 Dose: 20 mg Hydralazine HCl (Hydralazine Hcl 50 Mg Tablet) 50 mg PO BID [facility]; Protocol Last Admin: 02/02/22 21:41 Dose: 50 mg Hydromorphone HCl (Hydromorphone Hcl 1 Mg/Ml Syringe) 0.5 mg IVPUSH Q4H PRN; Protocol PRN Reason: Pain, Severe (Pain Scale 7-10) Last Admin: 02/02/22 13:58 Dose: 0.5 mg Vancomycin HCl 1,500 mg/ (Sodium Chloride) 500 mls @ 333.333 mls/hr IV Q24H [facility] Sodium Chloride (Ns) 1,000 mls @ 100 mls/hr IVCONT .Q10H [facility] Last Admin: 02/02/22 22:29 Dose: 100 mls/hr Piperacillin Sod/Tazobactam (Sod 3.375 gm/ Sodium Chloride) 50 mls @ 100 mls/hr IV Q6H [facility] Last Infusion: 02/02/22 18:38 Dose: Infused Insulin Glargine (Insulin Glargine,Hum.Rec.Anlog 100 Unit/Ml 10 Ml Vial) 18 unit SUBCUT BEDTIME [facility] Last Admin: 02/02/22 21:41 Dose: 18 unit Insulin Human Lispro (Insulin Lispro 100 Unit/Ml 3 Ml Vial) 0 unit SUBCUT QIDACHS [facility]; Protocol Last Admin: 02/02/22 21:42 Dose: 2 unit Losartan Potassium (Losartan Potassium 50 Mg Tablet) 50 mg PO DAILY [facility]; Protocol Metformin HCl (Metformin Hcl 1,000 Mg Tablet) 1,000 mg PO BIDWM [facility] Last Admin: 02/02/22 16:58 Dose: 1,000 mg Metoprolol Succinate (Metoprolol Succinate Er 100 Mg Tab.Er.24h) 100 mg PO DAILY [facility]; Protocol Oxycodone HCl (Oxycodone Hcl Immed Release 5 Mg Tablet) 5 mg PO Q8H PRN PRN Reason: Pain, Moderate (Pain Scale 4-6 Oxycodone HCl (Oxycodone Hcl Immed Release 5 Mg Tablet) 10 mg PO Q6H PRN PRN Reason: Pain, Moderate (Pain Scale 4-6 Last Admin: 02/02/22 17:18 Dose: 10 mg Pharmacy Consult (Consult Rx Vancomycin Dosing) 1 each MISCELLANE DAILY PRN PRN Reason: Consult order Pharmacy Consult (Consult Rx Perform Med Rec) 1 each MISCELLANE ONCE PRN PRN Reason: Consult order Sertraline HCl (Sertraline Hcl 50 Mg Tablet) 50 mg PO DAILY [facility] Sitagliptin Phosphate (Sitagliptin Phosphate 100 Mg Tablet) 100 mg PO DAILY [facility] Last Admin: 02/02/22 16:58 Dose: 100 mg Sodium Chloride (0.9 % Sodium Chloride Flush 3 Ml Syringe) 3 ml IVFLUSH QSHIFT [facility] Last Admin: 02/02/22 15:16 Dose: Not Given Tamsulosin HCl (Tamsulosin Hcl 0.4 Mg Capsule) 0.4 mg PO BEDTIME [facility] Last Admin: 02/02/22 21:43 Dose: 0.4 mg Home Medications Medication Instructions Recorded Confirmed Last Taken Type atorvastatin 80 mg tablet 80 mg PO DAILY 04/27/21 02/02/22 02/01/22 History fluticasone propionate 50 2 spray intranasal QAM PRN Nasal 04/27/21 02/02/22 02/01/22 History mcg/actuation nasal Congestion spray,suspension furosemide 40 mg tablet 40 mg PO QAM 04/27/21 02/02/22 02/01/22 History glipizide 10 mg tablet 20 mg PO BID 04/27/21 02/02/22 02/01/22 History losartan 50 mg tablet 50 mg PO QAM 04/27/21 02/02/22 02/01/22 History metformin 1,000 mg tablet 1,000 mg PO BID 04/27/21 02/02/22 02/01/22 History metoprolol succinate 100 mg 100 mg PO DAILY 04/27/21 02/02/22 02/01/22 History tablet,extended release 24 hr sertraline 50 mg tablet 50 mg PO DAILY 04/27/21 02/02/22 02/01/22 History sitagliptin 100 mg tablet (Januvia) 100 mg PO DAILY 04/27/21 02/02/22 02/01/22 History povidone-iodine 10 % topical See Rx Instructions .Route .COMPLEX 12/28/21 02/02/22 02/01/22 History solution insulin degludec 100 unit/mL (3 25 unit subcut QPM 01/03/22 02/02/22 02/01/22 History mL) subcutaneous pen (Tresiba FlexTouch U-100 insulin) Physical Exam Vital Signs: Vital Signs: Last Vital Signs Temp 98.6 F 02/02/22 15:33 Pulse 85 02/02/22 15:33 Resp 17 02/02/22 15:33 BP 185/84 H 02/02/22 15:33 Pulse Ox 97 02/02/22 15:33 O2 Del Method 02/02/22 15:33 O2 Flow Rate 2 02/02/22 09:40 BMI result Body Mass Index 28.5 Const: General: cooperative HEENT: Head: Yes normal to inspection Face and sinus: Yes normal facial exam Mouth: Normal oral and palatal mucosa present Teeth and gingiva: dentition normal Eyes: General: appearance normal, both eyes and all related structures Pupils: Equal, round and reactive pupils present Resp: Effort & Inspection: normal respiratory effort Cardio: Rate: regular rate Rhythm: regular rhythm GI: Palpation (GI): Soft to palpation and nontender : General: Yes no CVA tenderness Back/Spine/Pelvis: Back: no CVA tenderness Skin: General skin exam: no rashes or lesions noted Neuro: General: moves all extremities Cranial nerves: Yes Equal, round and reactive pupils present Extrem: Other: right TMA left foot amputation site around TMA red and swollen General: Yes normal to inspection Psych: Appearance: grossly normal Results Labs CBC & Chem 7: 02/02/22 04:44 02/02/22 05:33 Labs: Short CBC 02/02/22 Range/Units 04:44 WBC 18.8 H (4.8-10.8) X10*3/uL Hgb 8.5 L (14.0-18.0) g/dl Hct 26.3 L (42.0-52.0) % Plt Count 453 H (160-400) X10*3/uL BMP 02/02/22 05:33 Sodium 132 L Potassium 5.8 H D Chloride 100 Carbon Dioxide 20 L BUN 27 H Creatinine 1.58 H Calcium 8.5 Liver Function 02/02/22 Range/Units 05:33 Total Bilirubin 0.4 (0.0-1.0) mg/dL AST 76 H (5-37) U/L ALT 54 H (0-40) U/L Alkaline Phosphatase 127 H D (39-117) U/L Albumin 2.7 L (3.5-5.0) g/dL Assessment and Plan (1) Diabetic foot infection: Status: Acute Diabetic foot infection with presumed osteomyelitis with reddened forefoot and amputation site. He may have multiple organisms including staph,strep ,anerobes (2) Cellulitis: Status: Acute Plan Continue broad spectrum antibiotics Vancomycin and Zosyn Vascular evaluation full evaluate further surgical therapy (six weeks IV antibiotics less likely to be useful
[2022-02-03] VITALS (12 sets, daily range): BP systolic 162–186; BP diastolic 60–83; PULSE 76–96; RESP 16–18; TEMP 36.3–36.7; O2SAT 92–96
[2022-02-03] MEDS: oxyCODONE HCl Immed Release 5 MG TABLET 10 MG PO ×2 (00:26→08:41)
[2022-02-03] MEDS: Piperacillin Sodium/Tazobactam 3.375 GM in 0.9 % Sodium Chloride 50 ML IV ×4 (05:06→23:32)
[2022-02-03 07:51] LABS: Glucose, Whole Blood 65 mg/dL (60-115)
[2022-02-03 08:39] LABS: Glucose, Whole Blood 150 mg/dL (60-115)
[2022-02-03] MEDS: hydrALAZINE HCl 50 MG TABLET PO ×2 (08:40→20:24)
[2022-02-03] MEDS: Enoxaparin Sodium 30 MG/0.3 ML SYRINGE SUBCUT (08:40)
[2022-02-03] MEDS: Losartan Potassium 50 MG TABLET PO (08:41)
[2022-02-03] MEDS: SITagliptin Phosphate 100 MG TABLET PO (08:41)
[2022-02-03] MEDS: glipiZIDE 10 MG TABLET 20 MG PO ×2 (08:41→20:24)
[2022-02-03] MEDS: Atorvastatin Calcium 80 MG TABLET PO (08:41)
[2022-02-03] MEDS: Metoprolol Succinate ER 100 MG TAB.ER.24H PO (08:41)
[2022-02-03] MEDS: vancomycin HCL 1,500 MG in 0.9 % Sodium Chloride 500 ML 333.33 MG IV (08:42)
[2022-02-03] MEDS: metFORMIN HCl 1,000 MG TABLET 1000 MG PO ×2 (08:42→17:44)
[2022-02-03] MEDS: Furosemide 40 MG TABLET PO (08:42)
[2022-02-03] MEDS: Sertraline HCL 50 MG TABLET PO (08:42)
[2022-02-03 10:36] LABS: Creatinine Clr Calc Pharmacy 56.5; Estimated Glomerular Filt Rate 45
[2022-02-03] MEDS: 0.9 % Sodium Chloride 1,000 ML 100 ML IVCONT ×2 (10:37→20:25)
[2022-02-03 11:34] LABS: Glucose, Whole Blood 161 mg/dL (60-115)
[2022-02-03] MEDS: Insulin Lispro 100 UNIT/ML 3 ML VIAL SUBCUT ×2 (11:47→20:25)
[2022-02-03] MEDS: HYDROmorphone HCl 1 MG/ML SYRINGE 0.5 MG IVPUSH ×3 (11:47→22:57)
--- NOTE | 2022-02-03 12:12 | P.PNIM_ITS ---
Subjective Subjective Date of Service: 02/03/22 Interval History: No acute issues overnight Review of Systems Denies chest pain Denies shortness of breath Denies nausea vomiting diarrhea Denies fever chills Physical Exam Vital Signs: Vital Signs: Last Vital Signs Temp 98.0 F 02/03/22 07:42 Pulse 83 02/03/22 07:42 Resp 18 02/03/22 07:42 BP 186/83 H 02/03/22 07:42 Pulse Ox 92 02/03/22 07:42 O2 Del Method 02/03/22 07:42 O2 Flow Rate 2 02/02/22 09:40 BMI result Body Mass Index 28.5 Const: Other: Uncomfortable appearing lying in stretcher. No acute distress Resp: Other: Clear to auscultation bilaterally no rales rhonchi or wheezes Cardio: Other: No S4; positive S1-S2; no S3 murmurs rubs or gallops GI: Other: Soft nontender nondistended with normoactive bowel sounds Skin: Other: Moderate erythema around the wound site with necrotic tissue at wound base Extrem: Other: Left lower extremity edema Objective Data Active Medications Amlodipine Besylate (Amlodipine Besylate 10 Mg Tablet) 10 mg PO DAILY@1700 [facility]; Protocol Last Admin: 02/02/22 16:57 Dose: 10 mg Documented By: MELISSA Atorvastatin Calcium (Atorvastatin Calcium 80 Mg Tablet) 80 mg PO DAILY [facility] Last Admin: 02/03/22 08:41 Dose: 80 mg Documented By: NAVNEET Enoxaparin Sodium (Enoxaparin Sodium 30 Mg/0.3 Ml Syringe) 30 mg SUBCUT Q24H [facility] Last Admin: 02/03/22 08:40 Dose: 30 mg Documented By: NAVNEET Fluticasone Propionate (Fluticasone Propionate Nasal 16 Gm [place]) 2 spray NOSTRIL-B DAILY PRN PRN Reason: Nasal Congestion Furosemide (Furosemide 40 Mg Tablet) 40 mg PO DAILY [facility]; Protocol Last Admin: 02/03/22 08:42 Dose: 40 mg Documented By: NAVNEET Glipizide (Glipizide 10 Mg Tablet) 20 mg PO BID [facility] Last Admin: 02/03/22 08:41 Dose: 20 mg Documented By: NAVNEET Hydralazine HCl (Hydralazine Hcl 50 Mg Tablet) 50 mg PO BID [facility]; Protocol Last Admin: 02/03/22 08:40 Dose: 50 mg Documented By: NAVNEET Hydromorphone HCl (Hydromorphone Hcl 1 Mg/Ml Syringe) 0.5 mg IVPUSH Q4H PRN; Protocol PRN Reason: Pain, Severe (Pain Scale 7-10) Last Admin: 02/03/22 11:47 Dose: 0.5 mg Documented By: NAVNEET Vancomycin HCl 1,500 mg/ (Sodium Chloride) 500 mls @ 333.333 mls/hr IV Q24H [facility] Last Infusion: 02/03/22 10:18 Dose: 0 mls/hr Documented By: NAVNEET Sodium Chloride (Ns) 1,000 mls @ 100 mls/hr IVCONT .Q10H [facility] Last Admin: 02/03/22 10:37 Dose: 100 mls/hr Documented By: NAVNEET Piperacillin Sod/Tazobactam (Sod 3.375 gm/ Sodium Chloride) 50 mls @ 100 mls/hr IV Q6H [facility] Last Admin: 02/03/22 11:48 Dose: 100 mls/hr Documented By: NAVNEET Insulin Glargine (Insulin Glargine,Hum.Rec.Anlog 100 Unit/Ml 10 Ml Vial) 18 unit SUBCUT BEDTIME [facility] Last Admin: 02/02/22 21:41 Dose: 18 unit Documented By: JON Insulin Human Lispro (Insulin Lispro 100 Unit/Ml 3 Ml Vial) 0 unit SUBCUT QIDACHS [facility]; Protocol Last Admin: 02/03/22 11:47 Dose: 2 unit Documented By: NAVNEET Losartan Potassium (Losartan Potassium 50 Mg Tablet) 50 mg PO DAILY [facility]; Protocol Last Admin: 02/03/22 08:41 Dose: 50 mg Documented By: NAVNEET Metformin HCl (Metformin Hcl 1,000 Mg Tablet) 1,000 mg PO BIDWM [facility] Last Admin: 02/03/22 08:42 Dose: 1,000 mg Documented By: NAVNEET Metoprolol Succinate (Metoprolol Succinate Er 100 Mg Tab.Er.24h) 100 mg PO DAILY [facility]; Protocol Last Admin: 02/03/22 08:41 Dose: 100 mg Documented By: NAVNEET Oxycodone HCl (Oxycodone Hcl Immed Release 5 Mg Tablet) 5 mg PO Q8H PRN PRN Reason: Pain, Moderate (Pain Scale 4-6 Oxycodone HCl (Oxycodone Hcl Immed Release 5 Mg Tablet) 10 mg PO Q6H PRN PRN Reason: Pain, Moderate (Pain Scale 4-6 Last Admin: 02/03/22 08:41 Dose: 10 mg Documented By: NAVNEET Pharmacy Consult (Consult Rx Vancomycin Dosing) 1 each MISCELLANE DAILY PRN PRN Reason: Consult order Pharmacy Consult (Consult Rx Perform Med Rec) 1 each MISCELLANE ONCE PRN PRN Reason: Consult order Sertraline HCl (Sertraline Hcl 50 Mg Tablet) 50 mg PO DAILY [facility] Last Admin: 02/03/22 08:42 Dose: 50 mg Documented By: NAVNEET Sitagliptin Phosphate (Sitagliptin Phosphate 100 Mg Tablet) 100 mg PO DAILY [facility] Last Admin: 02/03/22 08:41 Dose: 100 mg Documented By: NAVNEET Sodium Chloride (0.9 % Sodium Chloride Flush 3 Ml Syringe) 3 ml IVFLUSH QSHIFT [facility] Last Admin: 02/03/22 08:52 Dose: Not Given Documented By: NAVNEET Non-Admin Reason: IV Running Tamsulosin HCl (Tamsulosin Hcl 0.4 Mg Capsule) 0.4 mg PO BEDTIME [facility] Last Admin: 02/02/22 21:43 Dose: 0.4 mg Documented By: JON Labs CBC & Chem 7: 02/02/22 04:44 02/03/22 10:00 Labs: Laboratory Results - last 24 hr 02/02/22 02/02/22 02/03/22 15:37 19:55 07:41 Estim Creat Clear Calc Estimated GFR POC Glucose 177 H 156 H 65 02/03/22 02/03/22 02/03/22 08:34 10:00 11:17 Estim Creat Clear Calc 56.5 Estimated GFR 45 POC Glucose 150 H 161 H Microbiology Microbiology Results: Microbiology 02/02/22 04:44 Blood Culture - Preliminary Blood - Venous No growth after 24 hours. Blood Culture - Preliminary No growth after 24 hours. 02/02/22 04:45 Blood Culture - Preliminary Blood - Venous No growth after 24 hours. Assessment and Plan (1) Diabetic foot infection: Status: Acute (2) Type 2 diabetes mellitus: Status: Acute (3) CKD stage 3 due to type 2 diabetes mellitus: Status: Acute Plan 66-year-old insulin dependent male presents to hospital with increased redness swelling and warmth 2 left foot amputation site and lower leg. On 01/25/22 he underwent left great toe amputation by Dr. Topete; subsequent postoperative course unremarkable. He was discharged home 01/29/22 on an oral course of Keflex. Returns today with increased pain erythema and warmth left lower extremity 1. Diabetic foot infection (left) -vancomycin/Zosyn pending cultures -consult vascular surgery -ID consult;( hold off on further imaging pending ID consult given inflammatory markers... 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 CKD 3 with hyperkalemia -normal saline at 100 mL/hour -follow renals/divalents -Lokelma 10 mg x 1 dose; recheck potassium in am 4.HTN (uncontrolled) -aggressively treat pain; repeat blood pressure 1 more comfortable -add back outpatient therapies -adjust as indicated Full code Lovenox Patient will require ongoing hospitalization for IV antibiotics to treat osteomyelitis Quality Stroke Does the patient have a stroke diagnosis?: No VTE Prior VTE?: No VTE Risk Level:: Medical - moderate - high VTE Device Contraindication: Treatment Not Indicated VTE Drug Contraindication: N/A - Med Ordered
--- NOTE | 2022-02-03 13:29 | HE.PHANOTE ---
Vancomycin Dosing Renal function stable. Continue current regiement Vanco 1500 mg Q24H. Random level to be drawn 02/04 @ 0600 prior to 3rd dose to evaluate for safety. Mandi Kilgore, Angeles[place]
[2022-02-03] MEDS: oxyCODONE HCl Immed Release 5 MG TABLET PO (13:37)
--- NOTE | 2022-02-03 15:21 | MHC.CM.PN ---
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
[2022-02-03 16:01] LABS: Glucose, Whole Blood 63 mg/dL (60-115)
[2022-02-03] MEDS: amLODIPine Besylate 10 MG TABLET PO (17:44)
[2022-02-03 19:59] LABS: Glucose, Whole Blood 154 mg/dL (60-115)
[2022-02-03] MEDS: Insulin Glargine,Hum.rec.anlog 100 UNIT/ML 10 ML VIAL 18 UNIT SUBCUT (20:24)
[2022-02-03] MEDS: Tamsulosin HCL 0.4 MG CAPSULE PO (20:24)
[2022-02-04] VITALS (9 sets, daily range): BP systolic 150–160; BP diastolic 72–80; PULSE 80–84; RESP 17–18; TEMP 36.5–36.8; O2SAT 93–96
[2022-02-04] MEDS: HYDROmorphone HCl 1 MG/ML SYRINGE IVPUSH ×4 (00:44→19:57)
[2022-02-04] MEDS: Piperacillin Sodium/Tazobactam 3.375 GM in 0.9 % Sodium Chloride 50 ML IV ×4 (05:16→23:31)
[2022-02-04 06:32] LABS: Creatinine Clr Calc Pharmacy 51.8; Estimated Glomerular Filt Rate 41
[2022-02-04 06:36] LABS: Vancomycin Random 16.7 mcg/mL (15-20)
--- NOTE | 2022-02-04 06:46 | HE.PHANOTE ---
RE: vanco Trough came back at 16.7 on 02/04/22 with a predicted AUC of 652mg/L. Changed dose to 1250mg Q24 with predicted AUC of 549mg/L. Next level to be drawn 02/06/22 @0600
[2022-02-04] MEDS: HYDROmorphone HCl 1 MG/ML SYRINGE 0.5 MG IVPUSH (07:45)
[2022-02-04] MEDS: 0.9 % Sodium Chloride Flush 3 ML SYRINGE IVFLUSH ×3 (07:46→23:32)
[2022-02-04 08:06] LABS: Glucose, Whole Blood 47 mg/dL (60-115)
[2022-02-04] MEDS: vancomycin HCL 1,250 MG in 0.9 % Sodium Chloride 250 ML 166.67 MG IV (08:39)
[2022-02-04] MEDS: Enoxaparin Sodium 30 MG/0.3 ML SYRINGE SUBCUT (08:40)
[2022-02-04] MEDS: Losartan Potassium 50 MG TABLET PO (08:41)
[2022-02-04] MEDS: glipiZIDE 10 MG TABLET 20 MG PO ×2 (08:41→20:01)
[2022-02-04] MEDS: hydrALAZINE HCl 50 MG TABLET PO ×2 (08:41→20:01)
[2022-02-04] MEDS: Metoprolol Succinate ER 100 MG TAB.ER.24H PO (08:41)
[2022-02-04] MEDS: Furosemide 40 MG TABLET PO (08:41)
[2022-02-04] MEDS: SITagliptin Phosphate 100 MG TABLET PO (08:41)
[2022-02-04] MEDS: Sertraline HCL 50 MG TABLET PO (08:41)
[2022-02-04] MEDS: metFORMIN HCl 500 MG TABLET PO (08:41)
[2022-02-04] MEDS: Atorvastatin Calcium 80 MG TABLET PO (08:41)
[2022-02-04 08:54] LABS: Glucose, Whole Blood 105 mg/dL (60-115)
[2022-02-04 11:48] LABS: Glucose, Whole Blood 116 mg/dL (60-115)
--- NOTE | 2022-02-04 13:38 | HO.PM.IMPN ---
Subjective Subjective Date of Service: 02/04/22 Interval History: No acute issues overnight. Pain management adjusted as previous regimen mostly ineffective Review of Systems Denies chest pain Denies shortness of breath Denies nausea vomiting diarrhea Denies fever chills Physical Exam Vital Signs: Vital Signs: Last Vital Signs Temp 97.9 F 02/04/22 07:49 Pulse 80 02/04/22 07:49 Resp 17 02/04/22 07:49 BP 160/75 H 02/04/22 07:49 Pulse Ox 96 02/04/22 07:49 O2 Del Method 02/04/22 07:49 O2 Flow Rate 2 02/04/22 07:49 BMI result Body Mass Index 28.5 Const: Other: Uncomfortable appearing lying in stretcher. No acute distress Resp: Other: Clear to auscultation bilaterally no rales rhonchi or wheezes Cardio: Other: No S4; positive S1-S2; no S3 murmurs rubs or gallops GI: Other: Soft nontender nondistended with normoactive bowel sounds Skin: Other: Moderate erythema around the wound site with necrotic tissue at wound base Extrem: Other: Left lower extremity edema Objective Data Active Medications Amlodipine Besylate (Amlodipine Besylate 10 Mg Tablet) 10 mg PO DAILY@1700 [facility]; Protocol Last Admin: 02/03/22 17:44 Dose: 10 mg Documented By: NAVNEET Atorvastatin Calcium (Atorvastatin Calcium 80 Mg Tablet) 80 mg PO DAILY [facility] Last Admin: 02/04/22 08:41 Dose: 80 mg Documented By: NAVNEET Enoxaparin Sodium (Enoxaparin Sodium 30 Mg/0.3 Ml Syringe) 30 mg SUBCUT Q24H [facility] Last Admin: 02/04/22 08:40 Dose: 30 mg Documented By: NAVNEET Fluticasone Propionate (Fluticasone Propionate Nasal 16 Gm [place]) 2 spray NOSTRIL-B DAILY PRN PRN Reason: Nasal Congestion Furosemide (Furosemide 40 Mg Tablet) 40 mg PO DAILY [facility]; Protocol Last Admin: 02/04/22 08:41 Dose: 40 mg Documented By: NAVNEET Glipizide (Glipizide 10 Mg Tablet) 20 mg PO BID [facility] Last Admin: 02/04/22 08:41 Dose: 20 mg Documented By: NAVNEET Hydralazine HCl (Hydralazine Hcl 50 Mg Tablet) 50 mg PO BID [facility]; Protocol Last Admin: 02/04/22 08:41 Dose: 50 mg Documented By: NAVNEET Hydromorphone HCl (Hydromorphone Hcl 1 Mg/Ml Syringe) 1 mg IVPUSH Q3H PRN; Protocol PRN Reason: Pain, Severe (Pain Scale 7-10) Last Admin: 02/04/22 10:47 Dose: 1 mg Documented By: NAVNEET Piperacillin Sod/Tazobactam (Sod 3.375 gm/ Sodium Chloride) 50 mls @ 100 mls/hr IV Q6H [facility] Last Admin: 02/04/22 13:19 Dose: 100 mls/hr Documented By: NAVNEET Vancomycin HCl 1,250 mg/ (Sodium Chloride) 250 mls @ 166.667 mls/hr IV Q24H [facility] Last Infusion: 02/04/22 10:58 Dose: 0 mls/hr Documented By: NAVNEET Insulin Glargine (Insulin Glargine,Hum.Rec.Anlog 100 Unit/Ml 10 Ml Vial) 18 unit SUBCUT BEDTIME [facility] Last Admin: 02/03/22 20:24 Dose: 18 unit Documented By: JON Insulin Human Lispro (Insulin Lispro 100 Unit/Ml 3 Ml Vial) 0 unit SUBCUT QIDACHS [facility]; Protocol Last Admin: 02/04/22 12:59 Dose: Not Given Documented By: NAVNEET Non-Admin Reason: No Insulin Coverage Losartan Potassium (Losartan Potassium 50 Mg Tablet) 50 mg PO DAILY [facility]; Protocol Last Admin: 02/04/22 08:41 Dose: 50 mg Documented By: NAVNEET Metformin HCl (Metformin Hcl 500 Mg Tablet) 500 mg PO BIDWM [facility] Last Admin: 02/04/22 08:41 Dose: 500 mg Documented By: NAVNEET Metoprolol Succinate (Metoprolol Succinate Er 100 Mg Tab.Er.24h) 100 mg PO DAILY [facility]; Protocol Last Admin: 02/04/22 08:41 Dose: 100 mg Documented By: NAVNEET Oxycodone HCl (Oxycodone Hcl Immed Release 5 Mg Tablet) 5 mg PO Q8H PRN PRN Reason: Pain, Moderate (Pain Scale 4-6 Last Admin: 02/03/22 13:37 Dose: 5 mg Documented By: NAVNEET Oxycodone HCl (Oxycodone Hcl Immed Release 5 Mg Tablet) 10 mg PO Q6H PRN PRN Reason: Pain, Moderate (Pain Scale 4-6 Last Admin: 02/03/22 08:41 Dose: 10 mg Documented By: NAVNEET Pharmacy Consult (Consult Rx Vancomycin Dosing) 1 each MISCELLANE DAILY PRN PRN Reason: Consult order Pharmacy Consult (Consult Rx Perform Med Rec) 1 each MISCELLANE ONCE PRN PRN Reason: Consult order Sertraline HCl (Sertraline Hcl 50 Mg Tablet) 50 mg PO DAILY [facility] Last Admin: 02/04/22 08:41 Dose: 50 mg Documented By: NAVNEET Sitagliptin Phosphate (Sitagliptin Phosphate 100 Mg Tablet) 100 mg PO DAILY [facility] Last Admin: 02/04/22 08:41 Dose: 100 mg Documented By: NAVNEET Sodium Chloride (0.9 % Sodium Chloride Flush 3 Ml Syringe) 3 ml IVFLUSH QSHIFT [facility] Last Admin: 02/04/22 07:46 Dose: 3 ml Documented By: NAVNEET Tamsulosin HCl (Tamsulosin Hcl 0.4 Mg Capsule) 0.4 mg PO BEDTIME [facility] Last Admin: 02/03/22 20:24 Dose: 0.4 mg Documented By: JON Labs CBC & Chem 7: 02/02/22 04:44 02/04/22 05:35 Labs: Laboratory Results - last 24 hr 02/03/22 02/03/22 02/04/22 15:44 19:49 05:35 Estim Creat Clear Calc 51.8 Estimated GFR 41 POC Glucose 63 154 H Random Vancomycin 02/04/22 02/04/22 02/04/22 05:35 07:51 08:39 Estim Creat Clear Calc Estimated GFR POC Glucose 47 L* 105 Random Vancomycin 16.7 02/04/22 11:36 Estim Creat Clear Calc Estimated GFR POC Glucose 116 H Random Vancomycin Microbiology Microbiology Results: Microbiology 02/02/22 04:45 Blood Culture - Preliminary Blood - Venous No growth after 48 hours. 02/02/22 04:44 Blood Culture - Preliminary Blood - Venous No growth after 48 hours. Blood Culture - Preliminary No growth after 48 hours. Assessment and Plan (1) Osteomyelitis: Status: Acute (2) Diabetic foot infection: Status: Acute (3) CKD stage 3 due to type 2 diabetes mellitus: Status: Acute (4) HTN (hypertension): Status: Acute Plan 66-year-old insulin dependent male presents to hospital with increased redness swelling and warmth 2 left foot amputation site and lower leg. On 01/25/22 he underwent left great toe amputation by Dr. Topete; subsequent postoperative course unremarkable. He was discharged home 01/29/22 on an oral course of Keflex. Returns today with increased pain erythema and warmth left lower extremity 1. Diabetic foot infection (left) -vancomycin/Zosyn -consult vascular surgery prior to PICC 2.DM II (poorly control) -continue long-acting insulin (ask Pharmacy to convert Tresiba to Lantus) -lispro correctional scale -hold metformin given current creatinine -ADA diet -adjust therapies as indicated 3. CKD 3 with hyperkalemia -normal saline at 100 mL/hour -follow renals/divalents -Lokelma 10 mg x 1 dose; recheck potassium in am 4.HTN (uncontrolled) -aggressively treat pain; repeat blood pressure 1 more comfortable -add back outpatient therapies -adjust as indicated Full code Lovenox Patient will require ongoing hospitalization for IV antibiotics to treat osteomyelitis Quality Stroke Does the patient have a stroke diagnosis?: No VTE Prior VTE?: No VTE Risk Level:: Medical - moderate - high VTE Device Contraindication: Treatment Not Indicated VTE Drug Contraindication: N/A - Med Ordered
--- NOTE | 2022-02-04 14:18 | MHC.CM.PN ---
CM MET WITH PT AND DAUGHTER PTS DAUGHTER REPORTS SHE FEELS HE MAY NEED STR BECAUSE HE WAS ONLY HOME 4 DAYS BEFORE READMISSION SHE REPORTS HE ONLY HAS 19 HRS PER WEEK OF [employer]OR [employer] SERVICES AND IS ALONE MUCH OF THE TIME A SNF LIST WAS PROVIDED SHE WILL BENTON PREFERENCES AND HOPES TO FOLLOW UP WITH CM AFTER HIS PT EVAL TOMORROW
[2022-02-04 16:46] LABS: Glucose, Whole Blood 128 mg/dL (60-115)
[2022-02-04] MEDS: amLODIPine Besylate 10 MG TABLET PO (17:24)
[2022-02-04 19:50] LABS: Glucose, Whole Blood 145 mg/dL (60-115)
[2022-02-04] MEDS: Tamsulosin HCL 0.4 MG CAPSULE PO (20:01)
[2022-02-04] MEDS: Insulin Glargine,Hum.rec.anlog 100 UNIT/ML 10 ML VIAL 18 UNIT SUBCUT (20:01)
[2022-02-04] MEDS: oxyCODONE HCl Immed Release 5 MG TABLET 10 MG PO (23:31)
[2022-02-05] VITALS (7 sets, daily range): BP systolic 154–192; BP diastolic 72–80; PULSE 74–84; RESP 18; TEMP 36.5–36.9; O2SAT 92–96
[2022-02-05] MEDS: HYDROmorphone HCl 1 MG/ML SYRINGE IVPUSH ×4 (00:24→12:31)
[2022-02-05] MEDS: oxyCODONE HCl Immed Release 5 MG TABLET PO ×2 (04:10→14:35)
[2022-02-05] MEDS: Piperacillin Sodium/Tazobactam 3.375 GM in 0.9 % Sodium Chloride 50 ML IV ×4 (05:43→23:47)
[2022-02-05 06:22] LABS: Basophils Absolute Auto 0.1 X10*3/uL (0.0-0.2); Basophils Percent Auto 0.3 % (0-2); Eosinophils Absolute Auto 0.1 X10*3/uL (0.0-0.4); Eosinophils Percent Auto 0.4 % (0-4); Hematocrit 26.3 % (42.0-52.0); Hemoglobin 8.1 g/dl (14.0-18.0); Imm Gran Abs Auto 0.09 X10*3/uL (0.00-0.03); Imm Gran Pct Auto 0.6 % (0.0-0.4); Lymphocytes Absolute Auto 1.1 X10*3/uL (1.2-4.9); Lymphocytes Percent Auto 7.7 % (20-40); MANUAL DIFF FLAG SCAN; Mean Corpuscular HGB Conc 30.8 g/dl (31.0-36.0); Mean Corpuscular Hemoglobin 29.3 pg (27.0-33.0); Mean Corpuscular Volume 95.3 fL (80.0-98.0); Mean Platelet Volume 9.4 fL (9.4-12.4); Monocytes Absolute Auto 1.5 X10*3/uL (0.1-1.2); Monocytes Percent Auto 10.7 % (2-11); Neutrophils Absolute Auto 11.5 x10*3/uL (2.0-8.3); Neutrophils Percent Auto 80.3 % (45-73); Platelet Count 409 X10*3/uL (160-400); Red Blood Count 2.76 X10*6/uL (4.60-5.80); Red Cell Distribution Width 13.5 % (11.0-16.0); SCAN SMEAR FLAG 1; White Blood Count 14.4 X10*3/uL (4.8-10.8)
[2022-02-05 07:03] LABS: SLIDE REVIEW VERIFIED
[2022-02-05 07:31] LABS: Alanine Aminotransferase 48 U/L (0-40); Albumin Level 2.7 g/dL (3.5-5.0); Alkaline Phosphatase 124 U/L (39-117); Aspartate Amino Transferase 56 U/L (5-37); Bilirubin Total 0.3 mg/dL (0.0-1.0); Blood Urea Nitrogen 24 mg/dL (9-16); Calcium 8.5 mg/dL (8.4-10.2); Creatinine Clr Calc Pharmacy 54.3; Estimated Glomerular Filt Rate 43; Total Protein 6.7 g/dL (6.5-8.0)
[2022-02-05 07:36] LABS: Glucose Fasting 44 mg/dL (60-99)
[2022-02-05 07:43] LABS: Anion Gap 17 (12-20); Carbon Dioxide 22 mmol/L (22-29); Chloride 103 mmol/L (96-108); Potassium 4.4 mmol/L (3.3-5.1); Sodium 138 mmol/L (135-145)
[2022-02-05 07:48] LABS: Glucose, Whole Blood 46 mg/dL (60-115)
[2022-02-05 08:22] LABS: Glucose, Whole Blood 90 mg/dL (60-115)
[2022-02-05 08:48] LABS: Glucose, Whole Blood 129 mg/dL (60-115)
[2022-02-05] MEDS: Metoprolol Succinate ER 100 MG TAB.ER.24H PO (09:00)
[2022-02-05] MEDS: Enoxaparin Sodium 30 MG/0.3 ML SYRINGE SUBCUT (09:00)
[2022-02-05] MEDS: vancomycin HCL 1,250 MG in 0.9 % Sodium Chloride 250 ML 166.66 MG IV (09:01)
[2022-02-05] MEDS: Furosemide 40 MG TABLET PO (09:01)
[2022-02-05] MEDS: Losartan Potassium 50 MG TABLET PO (09:01)
[2022-02-05] MEDS: Atorvastatin Calcium 80 MG TABLET PO (09:01)
[2022-02-05] MEDS: glipiZIDE 10 MG TABLET 20 MG PO (09:01)
[2022-02-05] MEDS: Sertraline HCL 50 MG TABLET PO (09:01)
[2022-02-05] MEDS: SITagliptin Phosphate 100 MG TABLET PO (09:01)
[2022-02-05] MEDS: 0.9 % Sodium Chloride Flush 3 ML SYRINGE IVFLUSH ×3 (09:02→23:48)
[2022-02-05] MEDS: hydrALAZINE HCl 50 MG TABLET PO ×3 (09:03→20:41)
--- NOTE | 2022-02-05 10:21 | HO.PM.IMPN ---
Subjective Subjective Date of Service: 02/05/22 Interval History: No acute issues overnight. A.m. sugars have been running below 50.... Not consistent with p.m. snacks Review of Systems Denies chest pain Denies shortness of breath Denies nausea vomiting diarrhea Denies fever chills Physical Exam Vital Signs: Vital Signs: Last Vital Signs Temp 98.2 F 02/05/22 07:30 Pulse 83 02/05/22 07:30 Resp 18 02/05/22 07:30 BP 188/76 H 02/05/22 07:30 Pulse Ox 96 02/05/22 07:30 O2 Del Method 02/05/22 07:30 O2 Flow Rate 2 02/04/22 19:31 BMI result Body Mass Index 28.5 Const: Other: Uncomfortable appearing lying in stretcher. No acute distress Resp: Other: Clear to auscultation bilaterally no rales rhonchi or wheezes Cardio: Other: No S4; positive S1-S2; no S3 murmurs rubs or gallops GI: Other: Soft nontender nondistended with normoactive bowel sounds Skin: Other: Moderate erythema around the wound site with necrotic tissue at wound base Extrem: Other: Left lower extremity edema Objective Data Active Medications Amlodipine Besylate (Amlodipine Besylate 10 Mg Tablet) 10 mg PO DAILY@1700 [facility]; Protocol Last Admin: 02/04/22 17:24 Dose: 10 mg Documented By: NAVNEET Atorvastatin Calcium (Atorvastatin Calcium 80 Mg Tablet) 80 mg PO DAILY [facility] Last Admin: 02/05/22 09:01 Dose: 80 mg Documented By: DENZEL Enoxaparin Sodium (Enoxaparin Sodium 30 Mg/0.3 Ml Syringe) 30 mg SUBCUT Q24H [facility] Last Admin: 02/05/22 09:00 Dose: 30 mg Documented By: DENZEL Fluticasone Propionate (Fluticasone Propionate Nasal 16 Gm [place]) 2 spray NOSTRIL-B DAILY PRN PRN Reason: Nasal Congestion Furosemide (Furosemide 40 Mg Tablet) 40 mg PO DAILY [facility]; Protocol Last Admin: 02/05/22 09:01 Dose: 40 mg Documented By: DENZEL Hydralazine HCl (Hydralazine Hcl 50 Mg Tablet) 50 mg PO TID [facility]; Protocol Hydromorphone HCl (Hydromorphone Hcl 1 Mg/Ml Syringe) 1 mg IVPUSH Q3H PRN; Protocol PRN Reason: Pain, Severe (Pain Scale 7-10) Last Admin: 02/05/22 09:08 Dose: 1 mg Documented By: DENZEL Piperacillin Sod/Tazobactam (Sod 3.375 gm/ Sodium Chloride) 50 mls @ 100 mls/hr IV Q6H [facility] Last Infusion: 02/05/22 06:14 Dose: 0 mls/hr Documented By: KATHY Vancomycin HCl 1,250 mg/ (Sodium Chloride) 250 mls @ 166.667 mls/hr IV Q24H [facility] Last Admin: 02/05/22 09:01 Dose: 166.66 mls/hr Documented By: DENZEL Insulin Glargine (Insulin Glargine,Hum.Rec.Anlog 100 Unit/Ml 10 Ml Vial) 18 unit SUBCUT BEDTIME [facility] Last Admin: 02/04/22 20:01 Dose: 18 unit Documented By: KATHY Insulin Human Lispro (Insulin Lispro 100 Unit/Ml 3 Ml Vial) 0 unit SUBCUT QIDACHS [facility]; Protocol Last Admin: 02/05/22 08:35 Dose: Not Given Documented By: DENZEL Non-Admin Reason: blood sugar low Losartan Potassium (Losartan Potassium 50 Mg Tablet) 50 mg PO DAILY [facility]; Protocol Last Admin: 02/05/22 09:01 Dose: 50 mg Documented By: DENZEL Metoprolol Succinate (Metoprolol Succinate Er 100 Mg Tab.Er.24h) 100 mg PO DAILY [facility]; Protocol Last Admin: 02/05/22 09:00 Dose: 100 mg Documented By: DENZEL Oxycodone HCl (Oxycodone Hcl Immed Release 5 Mg Tablet) 5 mg PO Q8H PRN PRN Reason: Pain, Moderate (Pain Scale 4-6 Last Admin: 02/05/22 04:10 Dose: 5 mg Documented By: KATHY Oxycodone HCl (Oxycodone Hcl Immed Release 5 Mg Tablet) 10 mg PO Q6H PRN PRN Reason: Pain, Moderate (Pain Scale 4-6 Last Admin: 02/04/22 23:31 Dose: 10 mg Documented By: KATHY Pharmacy Consult (Consult Rx Vancomycin Dosing) 1 each MISCELLANE DAILY PRN PRN Reason: Consult order Pharmacy Consult (Consult Rx Perform Med Rec) 1 each MISCELLANE ONCE PRN PRN Reason: Consult order Sertraline HCl (Sertraline Hcl 50 Mg Tablet) 50 mg PO DAILY [facility] Last Admin: 02/05/22 09:01 Dose: 50 mg Documented By: DENZEL Sitagliptin Phosphate (Sitagliptin Phosphate 100 Mg Tablet) 100 mg PO DAILY [facility] Last Admin: 02/05/22 09:01 Dose: 100 mg Documented By: DENZEL Sodium Chloride (0.9 % Sodium Chloride Flush 3 Ml Syringe) 3 ml IVFLUSH QSHIFT [facility] Last Admin: 02/05/22 09:02 Dose: 3 ml Documented By: DENZEL Tamsulosin HCl (Tamsulosin Hcl 0.4 Mg Capsule) 0.4 mg PO BEDTIME [facility] Last Admin: 02/04/22 20:01 Dose: 0.4 mg [facility] CBC & Chem 7: 02/05/22 05:26 02/05/22 05:26 Labs: Laboratory Results - last 24 hr 02/04/22 02/04/22 02/04/22 11:36 15:25 19:34 MCV MCH MCHC RDW Plt Count MPV Immature Gran % (Auto) Neut % (Auto) Lymph % (Auto) [place] % (Auto) Eos % (Auto) Baso % (Auto) Lymph # (Auto) [place] # (Auto) Eos # (Auto) Baso # (Auto) Abs Immat Gran (auto) Absolute Neuts (auto) Absolute Nucleated RBC Nucleated RBC % (auto) Smear Tech's Comments Anion Gap Estim Creat Clear Calc Estimated GFR POC Glucose 116 H 128 H 145 H Fasting Glucose Calcium Total Bilirubin AST ALT Alkaline Phosphatase Total Protein Albumin 02/05/22 02/05/22 02/05/22 05:26 05:26 07:29 MCV 95.3 MCH 29.3 MCHC 30.8 L RDW 13.5 Plt Count 409 H MPV 9.4 Immature Gran % (Auto) 0.6 H Neut % (Auto) 80.3 H Lymph % (Auto) 7.7 L [place] % (Auto) 10.7 Eos % (Auto) 0.4 Baso % (Auto) 0.3 Lymph # (Auto) 1.1 L [place] # (Auto) 1.5 H Eos # (Auto) 0.1 Baso # (Auto) 0.1 Abs Immat Gran (auto) 0.09 H Absolute Neuts (auto) 11.5 H Absolute Nucleated RBC 0.000 Nucleated RBC % (auto) 0.0 Smear Tech's Comments VERIFIED Anion Gap 17 Estim Creat Clear Calc 54.3 Estimated GFR 43 POC Glucose 46 L* Fasting Glucose 44 L* Calcium 8.5 Total Bilirubin 0.3 AST 56 H ALT 48 H Alkaline Phosphatase 124 H Total Protein 6.7 Albumin 2.7 L 02/05/22 02/05/22 08:18 08:35 MCV MCH MCHC RDW Plt Count MPV Immature Gran % (Auto) Neut % (Auto) Lymph % (Auto) [place] % (Auto) Eos % (Auto) Baso % (Auto) Lymph # (Auto) [place] # (Auto) Eos # (Auto) Baso # (Auto) Abs Immat Gran (auto) Absolute Neuts (auto) Absolute Nucleated RBC Nucleated RBC % (auto) Smear Tech's Comments Anion Gap Estim Creat Clear Calc Estimated GFR POC Glucose 90 129 H Fasting Glucose Calcium Total Bilirubin AST ALT Alkaline Phosphatase Total Protein Albumin Microbiology Microbiology Results: Microbiology 02/02/22 04:45 Blood Culture - Preliminary Blood - Venous No growth after 48 hours. 02/02/22 04:44 Blood Culture - Preliminary Blood - Venous No growth after 48 hours. Blood Culture - Preliminary No growth after 48 hours. Assessment and Plan (1) Osteomyelitis: Status: Acute (2) Diabetic foot infection: Status: Acute (3) CKD stage 3 due to type 2 diabetes mellitus: Status: Acute (4) HTN (hypertension): Status: Acute Plan 66-year-old insulin dependent male presents to hospital with increased redness swelling and warmth 2 left foot amputation site and lower leg. On 01/25/22 he underwent left great toe amputation by Dr. Topete; subsequent postoperative course unremarkable. He was discharged home 01/29/22 on an oral course of Keflex. Returns today with increased pain erythema and warmth left lower extremity. Has remained tolerant of therapy however sugars have been bottoming in a.m. secondary to lack of p.m. snacks. Dr. Topete to see today... 1. Diabetic foot infection (left) -vancomycin/Zosyn (4) -consult vascular surgery prior to PICC.... Query amputation versus 6 weeks of IV antibiotics. 2.DM II (poorly control) -continue long-acting insulin (ask Pharmacy to convert Tresiba to Lantus) -lispro correctional scale -will decrease glipizide p.m. dose to 10 mg and follow -ADA diet -adjust therapies as indicated 3. CKD 3 with hyperkalemia -potassium normalized -follow renals/divalents -Lokelma 10 mg x 1 dose as needed 4.HTN (uncontrolled) -restarted outpatient regimen. .. Remains poorly control -increase hydralazine to 50 mg t.i.d. -adjust as indicated Full code Lovenox Patient will require ongoing hospitalization for IV antibiotics to treat osteomyelitis Quality Stroke Does the patient have a stroke diagnosis?: No VTE Prior VTE?: No VTE Risk Level:: Medical - moderate - high VTE Device Contraindication: Treatment Not Indicated VTE Drug Contraindication: N/A - Med Ordered
[2022-02-05] MEDS: oxyCODONE HCl Immed Release 5 MG TABLET 10 MG PO ×3 (11:00→23:49)
[2022-02-05 11:23] LABS: Glucose, Whole Blood 151 mg/dL (60-115)
[2022-02-05] MEDS: Insulin Lispro 100 UNIT/ML 3 ML VIAL SUBCUT ×2 (11:42→20:36)
--- NOTE | 2022-02-05 14:22 | P.CONGS_ITS ---
History of Present Illness Consult details Consult date: 02/05/22 Reason for consult: wound care Narrative: Very pleasant 66-year-old gentleman who had undergone left great toe amputation last week presented to the hospital again over the weekend. It had been nonh ealing and progressed further back. He became quite concerned about it and presented to the hospital after Thanksgiving. He now presents for nonhealing left foot amputation site. Review of Systems Review of Systems: Yes all other systems are reviewed and are negative Constitutional: Constitutional: Reports no additional constitutional complaints ENT: Reports Normal hearing present Cardiovascular: Cardiovascular: Denies chest pain, Denies chest pain at rest, Denies chest pain with activity and Denies pedal edema Respiratory: Respiratory: Denies cough Gastrointestinal: Gastrointestinal: Denies abdominal pain Musculoskeletal: Musculoskeletal: Denies abnormal gait, Denies muscle cramps and Denies radiating pain into limb Integumentary/Breasts: Skin/Breast: Denies skin ulcer and Denies wounds Neurologic: Reports Normal hearing present and Denies abnormal gait Psychiatric: Psychiatric: Reports no additional psychiatric complaints PMFSH Past Medical History Medical History Diabetes High cholesterol HTN (hypertension) Hyperlipidemia associated with type 2 diabetes mellitus Kidney disease Type 2 diabetes mellitus Family History Family history: reviewed and not pertinent Surgical History Surgical History H/O shoulder surgery History of amputation of right forefoot Social History Social History Household Members: None Housing: Apartment Do you presently have visiting nurse or other home services: Yes Alcohol intake: current Alcohol intake frequency: holidays/special occasions only Alcohol type: beer Patient Tobacco Use Status: Former Tobacco user Substance Use Type: Crack/Cocaine Advance Directives Date on File: 02/02/22 service: No Current occupational status: retired Meds Allergies Allergy/AdvReac Type Severity Reaction Status Date / Time No Known Allergies Allergy Verified 01/24/22 06:12 [No Known Allergies*] Active Medications: Current Medications Amlodipine Besylate (Amlodipine Besylate 10 Mg Tablet) 10 mg PO DAILY@1700 ANNABELLA; Protocol Last Admin: 02/04/22 17:24 Dose: 10 mg Atorvastatin Calcium (Atorvastatin Calcium 80 Mg Tablet) 80 mg PO DAILY [facility] Last Admin: 02/05/22 09:01 Dose: 80 mg Enoxaparin Sodium (Enoxaparin Sodium 30 Mg/0.3 Ml Syringe) 30 mg SUBCUT Q24H [facility] Last Admin: 02/05/22 09:00 Dose: 30 mg Fluticasone Propionate (Fluticasone Propionate Nasal 16 Gm [place]) 2 spray NOSTRIL-B DAILY PRN PRN Reason: Nasal Congestion Furosemide (Furosemide 40 Mg Tablet) 40 mg PO DAILY [facility]; Protocol Last Admin: 02/05/22 09:01 Dose: 40 mg Glipizide (Glipizide 10 Mg Tablet) 10 mg PO BEDTIME [facility] Stop: 02/05/22 21:01 Hydralazine HCl (Hydralazine Hcl 50 Mg Tablet) 50 mg PO TID [facility]; Protocol Last Admin: 02/05/22 11:41 Dose: 50 mg Hydromorphone HCl (Hydromorphone Hcl 1 Mg/Ml Syringe) 1 mg IVPUSH Q3H PRN; Protocol PRN Reason: Pain, Severe (Pain Scale 7-10) Last Admin: 02/05/22 12:31 Dose: 1 mg Piperacillin Sod/Tazobactam (Sod 3.375 gm/ Sodium Chloride) 50 mls @ 100 mls/hr IV Q6H [facility] Last Infusion: 02/05/22 12:25 Dose: Infused Vancomycin HCl 1,250 mg/ (Sodium Chloride) 250 mls @ 166.667 mls/hr IV Q24H [facility] Last Infusion: 02/05/22 10:54 Dose: Infused Insulin Glargine (Insulin Glargine,Hum.Rec.Anlog 100 Unit/Ml 10 Ml Vial) 18 unit SUBCUT BEDTIME [facility] Last Admin: 02/04/22 20:01 Dose: 18 unit Insulin Human Lispro (Insulin Lispro 100 Unit/Ml 3 Ml Vial) 0 unit SUBCUT QIDACHS [facility]; Protocol Last Admin: 02/05/22 11:42 Dose: 2 unit Losartan Potassium (Losartan Potassium 50 Mg Tablet) 50 mg PO DAILY [facility]; Protocol Last Admin: 02/05/22 09:01 Dose: 50 mg Metoprolol Succinate (Metoprolol Succinate Er 100 Mg Tab.Er.24h) 100 mg PO DAILY [facility]; Protocol Last Admin: 02/05/22 09:00 Dose: 100 mg Oxycodone HCl (Oxycodone Hcl Immed Release 5 Mg Tablet) 5 mg PO Q8H PRN PRN Reason: Pain, Moderate (Pain Scale 4-6 Last Admin: 02/05/22 04:10 Dose: 5 mg Oxycodone HCl (Oxycodone Hcl Immed Release 5 Mg Tablet) 10 mg PO Q6H PRN PRN Reason: Pain, Moderate (Pain Scale 4-6 Last Admin: 02/05/22 11:00 Dose: 10 mg Pharmacy Consult (Consult Rx Vancomycin Dosing) 1 each MISCELLANE DAILY PRN PRN Reason: Consult order Pharmacy Consult (Consult Rx Perform Med Rec) 1 each MISCELLANE ONCE PRN PRN Reason: Consult order Sertraline HCl (Sertraline Hcl 50 Mg Tablet) 50 mg PO DAILY [facility] Last Admin: 02/05/22 09:01 Dose: 50 mg Sitagliptin Phosphate (Sitagliptin Phosphate 100 Mg Tablet) 100 mg PO DAILY [facility] Last Admin: 02/05/22 09:01 Dose: 100 mg Sodium Chloride (0.9 % Sodium Chloride Flush 3 Ml Syringe) 3 ml IVFLUSH QSHIFT [facility] Last Admin: 02/05/22 09:02 Dose: 3 ml Tamsulosin HCl (Tamsulosin Hcl 0.4 Mg Capsule) 0.4 mg PO BEDTIME [facility] Last Admin: 02/04/22 20:01 Dose: 0.4 mg Home Medications Medication Instructions Recorded Confirmed Last Taken Type atorvastatin 80 mg tablet 80 mg PO DAILY 04/27/21 02/02/22 02/01/22 History fluticasone propionate 50 2 spray intranasal [facility] PRN Nasal 04/27/21 02/02/22 02/01/22 History mcg/actuation nasal Congestion spray,suspension furosemide 40 mg tablet 40 mg PO QAM 04/27/21 02/02/22 02/01/22 History glipizide 10 mg tablet 20 mg PO BID 04/27/21 02/02/22 02/01/22 History losartan 50 mg tablet 50 mg PO QAM 04/27/21 02/02/22 02/01/22 History metformin 1,000 mg tablet 1,000 mg PO BID 04/27/21 02/02/22 02/01/22 History metoprolol succinate 100 mg 100 mg PO DAILY 04/27/21 02/02/22 02/01/22 History tablet,extended release 24 hr sertraline 50 mg tablet 50 mg PO DAILY 04/27/21 02/02/22 02/01/22 History sitagliptin phosphate 100 mg 100 mg PO DAILY 04/27/21 02/02/22 02/01/22 History tablet (Januvia) povidone-iodine 10 % topical See Rx Instructions .Route .COMPLEX 12/28/21 02/02/22 02/01/22 History solution insulin degludec 100 unit/mL (3 25 unit subcut QPM 01/03/22 02/02/22 02/01/22 History mL) subcutaneous pen (Tresiba FlexTouch U-100 insulin) Physical Exam 2 Vital Signs: Vital Signs: Last Vital Signs Temp 97.7 F 02/05/22 11:04 Pulse 84 02/05/22 11:04 Resp 18 02/05/22 11:04 BP 192/80 H 02/05/22 11:04 Pulse Ox 94 02/05/22 11:04 O2 Del Method 02/05/22 11:04 O2 Flow Rate 2 02/04/22 19:31 BMI result Body Mass Index 28.5 Const: General: cooperative, healthy appearing and comfortable Orientatio n/consciousness: oriented to person, oriented to place and oriented to time HEENT: Head: Yes normal to inspection Neck: Neck: Yes normal visual inspection Carotids: no bruits Chest: Chest palpation & inspection: normal inspection of the chest Resp: Effort & Inspection: normal respiratory effort and able to speak in complete sentences Auscultation: clear to auscultation bilaterally, no crackles, no rales, no rhonchi and no wheezes Cardio: Rate: regular rate Rhythm: regular rhythm Heart sounds: S1 normal heart sound present and S2 normal heart sound present Bruits: no carotid bruits Peripheral pulses: Peripheral pulses 2+ throughout GI: Inspection: Yes normal to inspection Skin: Other: Left great toe amputation site necrotic with gangrene Wounds: amputation site Hair: normal Neuro: General: oriented to person, oriented to place and oriented to time Cranial nerves: Yes CN's II-XII intact bilaterally and Yes Normal hearing present Cognition (Neuro): normal cognition Motor exam (neuro): 5/5 motor strength present throughout Extrem: Other: venous exam: No significant superficial varicosities or spider telangiectasias, minimal edema General: No clubbing, No cyanosis and No edema Psych: Appearance: grossly normal Mental Status: mental status grossly normal Speech and movement: Normal speech and movement present Results Labs Result diagrams: 02/05/22 05:26 02/05/22 05:26 Labs: Abnormal lab results 02/04/22 02/04/22 02/05/22 Range/Units 15:25 19:34 05:26 WBC (4.8-10.8) X10*3/uL RBC (4.60-5.80) X10*6/uL Hgb (14.0-18.0) g/dl Hct (42.0-52.0) % MCHC (31.0-36.0) g/dl Plt Count (160-400) X10*3/uL Immature Gran % (Auto) (0.0-0.4) % Neut % (Auto) (45-73) % Lymph % (Auto) (20-40) % Lymph # (Auto) (1.2-4.9) X10*3/uL [place] # (Auto) (0.1-1.2) X10*3/uL Abs Immat Gran (auto) (0.00-0.03) X10*3/uL Absolute Neuts (auto) (2.0-8.3) x10*3/uL BUN 24 H (9-16) mg/dL Creatinine 1.60 H (0.5-1.4) mg/dL POC Glucose 128 H 145 H (60-115) mg/dL Fasting Glucose 44 L* (60-99) mg/dL AST 56 H (5-37) U/L ALT 48 H (0-40) U/L Alkaline Phosphatase 124 H (39-117) U/L Albumin 2.7 L (3.5-5.0) g/dL 02/05/22 02/05/22 02/05/22 Range/Units 05:26 07:29 08:35 WBC 14.4 H (4.8-10.8) X10*3/uL RBC 2.76 L (4.60-5.80) X10*6/uL Hgb 8.1 L (14.0-18.0) g/dl Hct 26.3 L (42.0-52.0) % MCHC 30.8 L (31.0-36.0) g/dl Plt Count 409 H (160-400) X10*3/uL Immature Gran % (Auto) 0.6 H (0.0-0.4) % Neut % (Auto) 80.3 H (45-73) % Lymph % (Auto) 7.7 L (20-40) % Lymph # (Auto) 1.1 L (1.2-4.9) X10*3/uL [place] # (Auto) 1.5 H (0.1-1.2) X10*3/uL Abs Immat Gran (auto) 0.09 H (0.00-0.03) X10*3/uL Absolute Neuts (auto) 11.5 H (2.0-8.3) x10*3/uL BUN (9-16) mg/dL Creatinine (0.5-1.4) mg/dL POC Glucose 46 L* 129 H (60-115) mg/dL Fasting Glucose (60-99) mg/dL AST (5-37) U/L ALT (0-40) U/L Alkaline Phosphatase (39-117) U/L Albumin (3.5-5.0) g/dL 02/05/22 Range/Units 11:02 WBC (4.8-10.8) X10*3/uL RBC (4.60-5.80) X10*6/uL Hgb (14.0-18.0) g/dl Hct (42.0-52.0) % MCHC (31.0-36.0) g/dl Plt Count (160-400) X10*3/uL Immature Gran % (Auto) (0.0-0.4) % Neut % (Auto) (45-73) % Lymph % (Auto) (20-40) % Lymph # (Auto) (1.2-4.9) X10*3/uL [place] # (Auto) (0.1-1.2) X10*3/uL Abs Immat Gran (auto) (0.00-0.03) X10*3/uL Absolute Neuts (auto) (2.0-8.3) x10*3/uL BUN (9-16) mg/dL Creatinine (0.5-1.4) mg/dL POC Glucose 151 H (60-115) mg/dL Fasting Glucose (60-99) mg/dL AST (5-37) U/L ALT (0-40) U/L Alkaline Phosphatase (39-117) U/L Albumin (3.5-5.0) g/dL Short CBC 02/05/22 Range/Units 05:26 WBC 14.4 H (4.8-10.8) X10*3/uL Hgb 8.1 L (14.0-18.0) g/dl Hct 26.3 L (42.0-52.0) % Plt Count 409 H (160-400) X10*3/uL BMP 02/05/22 05:26 Sodium 138 Potassium 4.4 D Chloride 103 Carbon Dioxide 22 BUN 24 H Creatinine 1.60 H Calcium 8.5 Liver Function 02/05/22 Range/Units 05:26 Total Bilirubin 0.3 (0.0-1.0) mg/dL AST 56 H (5-37) U/L ALT 48 H (0-40) U/L Alkaline Phosphatase 124 H (39-117) U/L Albumin 2.7 L (3.5-5.0) g/dL All other labs normal. Assessment and Plan (1) Nonhealing ulcer of left lower extremity: Status: Acute In short patient has a nonhealing left great toe amputation site. Due to the extent of nonhealing and then and discoloration of the 2nd toe and 3rd toe as well, the patient will require left foot transmetatarsal amputation. Risks benefits complications of the procedure were discussed in detail with the patient. He agreed and consented and would like to move forward. (2) PAD (peripheral artery disease): Status: Acute Procedures Date of Service Date of Service: 02/05/22
--- NOTE | 2022-02-05 15:29 | PC.NURSE ---
Dr. Topete in to see patient. Dressing applied by MD. Patient restless and grabbing leg stating dressing is too tight. Demanding it be removed. Dressing removed. Foot open to air. Patient medicated for pain and appears more comfortable.
[2022-02-05 15:44] LABS: Glucose, Whole Blood 103 mg/dL (60-115)
[2022-02-05] MEDS: amLODIPine Besylate 10 MG TABLET PO (16:45)
--- NOTE | 2022-02-05 17:18 | PC.NURSE ---
patient took drsg off left foot ,refuses to have drsg reapplied
[2022-02-05 19:51] LABS: Glucose, Whole Blood 230 mg/dL (60-115)
[2022-02-05] MEDS: Tamsulosin HCL 0.4 MG CAPSULE PO (20:35)
[2022-02-05] MEDS: glipiZIDE 10 MG TABLET PO (20:36)
[2022-02-05] MEDS: Insulin Glargine,Hum.rec.anlog 100 UNIT/ML 10 ML VIAL 18 UNIT SUBCUT (20:36)
[2022-02-06] VITALS (19 sets, daily range): BP systolic 134–175; BP diastolic 55–86; PULSE 74–87; RESP 16–20; TEMP 36.3–37.1; O2SAT 93–98
[2022-02-06] MEDS: HYDROmorphone HCl 1 MG/ML SYRINGE IVPUSH ×2 (02:33→06:24)
[2022-02-06] MEDS: Piperacillin Sodium/Tazobactam 3.375 GM in 0.9 % Sodium Chloride 50 ML IV ×3 (05:47→17:46)
[2022-02-06 06:37] LABS: Basophils Absolute Auto 0.1 X10*3/uL (0.0-0.2); Basophils Percent Auto 0.5 % (0-2); Eosinophils Absolute Auto 0.2 X10*3/uL (0.0-0.4); Eosinophils Percent Auto 1.3 % (0-4); Hematocrit 24.1 % (42.0-52.0); Hemoglobin 7.6 g/dl (14.0-18.0); Imm Gran Abs Auto 0.06 X10*3/uL (0.00-0.03); Imm Gran Pct Auto 0.5 % (0.0-0.4); Lymphocytes Absolute Auto 1.1 X10*3/uL (1.2-4.9); Lymphocytes Percent Auto 8.3 % (20-40); MANUAL DIFF FLAG SCAN; Mean Corpuscular HGB Conc 31.5 g/dl (31.0-36.0); Mean Corpuscular Hemoglobin 29.9 pg (27.0-33.0); Mean Corpuscular Volume 94.9 fL (80.0-98.0); Mean Platelet Volume 9.5 fL (9.4-12.4); Monocytes Absolute Auto 1.5 X10*3/uL (0.1-1.2); Monocytes Percent Auto 11.5 % (2-11); Neutrophils Absolute Auto 10.3 x10*3/uL (2.0-8.3); Neutrophils Percent Auto 77.9 % (45-73); Platelet Count 365 X10*3/uL (160-400); Red Blood Count 2.54 X10*6/uL (4.60-5.80); Red Cell Distribution Width 13.4 % (11.0-16.0); SCAN SMEAR FLAG 1; White Blood Count 13.2 X10*3/uL (4.8-10.8)
[2022-02-06 06:55] LABS: Vancomycin Trough 23.1 mcg/mL (10.0-20.0)
[2022-02-06 07:05] LABS: SLIDE REVIEW VERIFIED
[2022-02-06 07:29] LABS: Alanine Aminotransferase 47 U/L (0-40); Albumin Level 2.6 g/dL (3.5-5.0); Alkaline Phosphatase 125 U/L (39-117); Anion Gap 10 (12-20); Aspartate Amino Transferase 49 U/L (5-37); Bilirubin Total 0.3 mg/dL (0.0-1.0); Blood Urea Nitrogen 26 mg/dL (9-16); Calcium 8.4 mg/dL (8.4-10.2); Carbon Dioxide 26 mmol/L (22-29); Chloride 105 mmol/L (96-108); Creatinine Clr Calc Pharmacy 49.1; Estimated Glomerular Filt Rate 39; Glucose Fasting 53 mg/dL (60-99); Potassium 4.3 mmol/L (3.3-5.1); Sodium 137 mmol/L (135-145); Total Protein 6.5 g/dL (6.5-8.0)
[2022-02-06] MEDS: Dextrose 50 % 25 GM/50 ML SYRINGE IVPUSH (07:35)
[2022-02-06 07:43] LABS: Glucose, Whole Blood 53 mg/dL (60-115)
--- NOTE | 2022-02-06 07:53 | HE.PHANOTE ---
RE VANCO TROUGH WAS 23.1, AND THERE WAS A 10% INCREASE IN SCR. WILL HOLD THE DOSE FOR NOW AND GET A RANDOM LEVEL @ 2100 AND REASSESS. Dennis
[2022-02-06] MEDS: hydrALAZINE HCl 50 MG TABLET PO ×3 (08:02→20:09)
[2022-02-06] MEDS: amLODIPine Besylate 5 MG TABLET PO ×2 (08:02→20:09)
[2022-02-06] MEDS: Metoprolol Succinate ER 100 MG TAB.ER.24H PO (08:02)
[2022-02-06] MEDS: Atorvastatin Calcium 80 MG TABLET PO (08:02)
[2022-02-06] MEDS: Sertraline HCL 50 MG TABLET PO (08:02)
[2022-02-06] MEDS: oxyCODONE HCl Immed Release 5 MG TABLET 10 MG PO ×3 (08:02→22:29)
[2022-02-06] MEDS: 0.9 % Sodium Chloride Flush 3 ML SYRINGE IVFLUSH (08:03)
[2022-02-06 08:12] LABS: Glucose, Whole Blood 115 mg/dL (60-115)
[2022-02-06] MEDS: Dextrose 5 % and 0.9 % NaCl 1,000 ML 75 ML IVCONT (08:14)
--- NOTE | 2022-02-06 09:12 | P.CONAN_ITS ---
HPI - Anesthesia Eval Consult details Narrative: 66 yo male patient for Left foot transmetatarsal amputation PMFSH Active Problems Active Problems: All Active Problems (Updated 02/04/22 @ 14:02 by Christiano Gonzalez DO) Osteomyelitis (Acute) CKD stage 3 due to type 2 diabetes mellitus (Acute) Diabetic foot infection (Acute) Cellulitis (Acute) LIVE (iron deficiency anemia) (Acute) Nonhealing ulcer of left lower extremity (Acute) Kidney disease (Acute) Hyperlipidemia associated with type 2 diabetes mellitus (Acute) Type 2 diabetes mellitus (Acute) HTN (hypertension) (Acute) PAD (peripheral artery disease) (Acute) Recurrent episodes of hypoglycemia Past Medical History Medical History Diabetes High cholesterol HTN (hypertension) Hyperlipidemia associated with type 2 diabetes mellitus Kidney disease Type 2 diabetes mellitus Family History Family history of problems with anesthesia: No Surgical History Surgical History (Updated 02/06/22 @ 09:36 by Kita Medina, RN) H/O shoulder surgery History of amputation of right forefoot Hx of amputation History of Problems with Anesthesia: No Social History Social History (Updated 02/06/22 @ 11:37 by Rosetta Kaba MD) Household Members: None Housing: Apartment Do you presently have visiting nurse or other home services: Yes Alcohol intake: current Alcohol intake frequency: holidays/special occasions only Alcohol type: beer Patient Tobacco Use Status: Former Tobacco user Quit Date: >20yr ago Tobacco use type: Cigarette Substance Use Type: Crack/Cocaine Last Used Substance: Days (ago) Last Used Substance Other:: 02/01/22. States before this episode last use was 5 years ago Advance Directives Date on File: 02/02/22 service: No Current occupational status: retired Meds Allergies Allergy/AdvReac Type Severity Reaction Status Date / Time No Known Allergies Allergy Verified 01/24/22 06:12 [No Known Allergies*] Active Medications: Current Medications Amlodipine Besylate (Amlodipine Besylate 5 Mg Tablet) 5 mg PO BID ANNABELLA; Protocol Last Admin: 02/06/22 08:02 Dose: 5 mg Atorvastatin Calcium (Atorvastatin Calcium 80 Mg Tablet) 80 mg PO DAILY ANNABELLA Last Admin: 02/06/22 08:02 Dose: 80 mg Dextrose (Dextrose 50 % 25 Gm/50 Ml Syringe) 25 gm IVPUSH Q15M PRN PRN Reason: per Hypoglycemia Standing Ord. Last Admin: 02/06/22 07:35 Dose: 25 gm Enoxaparin Sodium (Enoxaparin Sodium 30 Mg/0.3 Ml Syringe) 30 mg SUBCUT Q24H ANNABELLA Last Admin: 02/06/22 08:03 Dose: Not Given Fluticasone Propionate (Fluticasone Propionate Nasal 16 Gm [place]) 2 spray NOSTRIL-B DAILY PRN PRN Reason: Nasal Congestion Furosemide (Furosemide 40 Mg Tablet) 40 mg PO DAILY ANNABELLA; Protocol Last Admin: 02/05/22 09:01 Dose: 40 mg Hydralazine HCl (Hydralazine Hcl 50 Mg Tablet) 50 mg PO TID ANNABELLA; Protocol Last Admin: 02/06/22 08:02 Dose: 50 mg Hydromorphone HCl (Hydromorphone Hcl 1 Mg/Ml Syringe) 1 mg IVPUSH Q3H PRN; Protocol PRN Reason: Pain, Severe (Pain Scale 7-10) Last Admin: 02/06/22 06:24 Dose: 1 mg Piperacillin Sod/Tazobactam (Sod 3.375 gm/ Sodium Chloride) 50 mls @ 100 mls/hr IV Q6H ANNABELLA Last Infusion: 02/06/22 06:19 Dose: Infused Vancomycin HCl 1,250 mg/ (Sodium Chloride) 250 mls @ 166.667 mls/hr IV Q24H ANNABELLA Last Infusion: 02/05/22 10:54 Dose: Infused Dextrose/Sodium Chloride (D5ns) 1,000 mls @ 75 mls/hr IVCONT .[id number] [facility] Last Admin: 02/06/22 08:14 Dose: 75 mls/hr Insulin Glargine (Insulin Glargine,Hum.Rec.Anlog 100 Unit/Ml 10 Ml Vial) 18 unit SUBCUT BEDTIME [facility] Last Admin: 02/05/22 20:36 Dose: 18 unit Insulin Human Lispro (Insulin Lispro 100 Unit/Ml 3 Ml Vial) 0 unit SUBCUT QIDACHS [facility]; Protocol Last Admin: 02/06/22 07:42 Dose: Not Given Losartan Potassium (Losartan Potassium 50 Mg Tablet) 50 mg PO DAILY [facility]; Protocol Last Admin: 02/05/22 09:01 Dose: 50 mg Metoprolol Succinate (Metoprolol Succinate Er 100 Mg Tab.Er.24h) 100 mg PO DAILY ANNABELLA; Protocol Last Admin: 02/06/22 08:02 Dose: 100 mg Oxycodone HCl (Oxycodone Hcl Immed Release 5 Mg Tablet) 5 mg PO Q8H PRN PRN Reason: Pain, Moderate (Pain Scale 4-6 Last Admin: 02/05/22 14:35 Dose: 5 mg Oxycodone HCl (Oxycodone Hcl Immed Release 5 Mg Tablet) 10 mg PO Q6H PRN PRN Reason: Pain, Moderate (Pain Scale 4-6 Last Admin: 02/06/22 08:02 Dose: 10 mg Pharmacy Consult (Consult Rx Vancomycin Dosing) 1 each MISCELLANE DAILY PRN PRN Reason: Consult order Pharmacy Consult (Consult Rx Perform Med Rec) 1 each MISCELLANE ONCE PRN PRN Reason: Consult order Sertraline HCl (Sertraline Hcl 50 Mg Tablet) 50 mg PO DAILY [facility] Last Admin: 02/06/22 08:02 Dose: 50 mg Sitagliptin Phosphate (Sitagliptin Phosphate 100 Mg Tablet) 100 mg PO DAILY [facility] Last Admin: 02/05/22 09:01 Dose: 100 mg Sodium Chloride (0.9 % Sodium Chloride Flush 3 Ml Syringe) 3 ml IVFLUSH QSHIFT [facility] Last Admin: 02/06/22 08:03 Dose: 3 ml Tamsulosin HCl (Tamsulosin Hcl 0.4 Mg Capsule) 0.4 mg PO BEDTIME [facility] Last Admin: 02/05/22 20:35 Dose: 0.4 mg Home Medications Medication Instructions Recorded Confirmed Last Taken Type atorvastatin 80 mg tablet 80 mg PO DAILY 04/27/21 02/02/22 02/01/22 History fluticasone propionate 50 2 spray intranasal QA PRN Nasal 04/27/21 02/02/22 02/01/22 History mcg/actuation nasal Congestion spray,suspension furosemide 40 mg tablet 40 mg PO QAM 04/27/21 02/02/22 02/01/22 History glipizide 10 mg tablet 20 mg PO BID 04/27/21 02/02/22 02/01/22 History losartan 50 mg tablet 50 mg PO QAM 04/27/21 02/02/22 02/01/22 History metformin 1,000 mg tablet 1,000 mg PO BID 04/27/21 02/02/22 02/01/22 History metoprolol succinate 100 mg 100 mg PO DAILY 04/27/21 02/02/22 02/01/22 History tablet,extended release 24 hr sertraline 50 mg tablet 50 mg PO DAILY 04/27/21 02/02/22 02/01/22 History sitagliptin phosphate 100 mg 100 mg PO DAILY 04/27/21 02/02/22 02/01/22 History tablet (Januvia) povidone-iodine 10 % topical See Rx Instructions .Route .COMPLEX 12/28/21 02/02/22 02/01/22 History solution insulin degludec 100 unit/mL (3 25 unit subcut QPM 01/03/22 02/02/22 02/01/22 History mL) subcutaneous pen (Tresiba FlexTouch U-100 insulin) Exam Exam Date and Time: February 06, [id number] Height,Weight and Vital Signs: Height 6 ft Weight 95.3 kg Last Vital Signs Temp 97.7 F 02/06/22 07:22 Pulse 77 02/06/22 07:22 Resp 16 02/06/22 07:22 BP 175/79 H 02/06/22 07:22 Pulse Ox 98 02/06/22 07:22 O2 Del Method 02/06/22 07:22 O2 Flow Rate 2 02/06/22 00:00 Pertinent Lab Results Pertinent Lab Results: Laboratory Tests 02/02/22 02/02/22 02/02/22 04:40 04:44 04:44 WBC 18.8 H RBC 2.86 L Hgb 8.5 L Hct 26.3 L MCV 92.0 MCH 29.7 MCHC 32.3 RDW 13.2 Plt Count 453 H MPV 9.3 L Immature Gran % (Auto) 0.5 H Neut % (Auto) 82.7 H Lymph % (Auto) 6.8 L Frio % (Auto) 9.2 Eos % (Auto) 0.5 Baso % (Auto) 0.3 Lymph # (Auto) 1.3 Frio # (Auto) 1.7 H Eos # (Auto) 0.1 Baso # (Auto) 0.1 Abs Immat Gran (auto) 0.09 H Absolute Neuts (auto) 15.6 H Absolute Nucleated RBC 0.000 Nucleated RBC % (auto) 0.0 Smear Tech's Comments VERIFIED ESR 117 H Sodium Potassium Chloride Carbon Dioxide Anion Gap BUN Creatinine Estim Creat Clear Calc Estimated GFR POC Glucose Random Glucose Fasting Glucose Lactic Acid 1.1 Calcium Total Bilirubin AST ALT Alkaline Phosphatase C-Reactive Protein Total Protein Albumin Vancomycin Trough Random Vancomycin COVID-19 (YANELIS) COVID-19 [email or web address] Com Crossmatch 02/02/22 02/02/22 02/02/22 05:25 05:33 11:15 WBC RBC Hgb Hct MCV MCH MCHC RDW Plt Count MPV Immature Gran % (Auto) Neut % (Auto) Lymph % (Auto) Frio % (Auto) Eos % (Auto) Baso % (Auto) Lymph # (Auto) Frio # (Auto) Eos # (Auto) Baso # (Auto) Abs Immat Gran (auto) Absolute Neuts (auto) Absolute Nucleated RBC Nucleated RBC % (auto) Smear Tech's Comments ESR Sodium 132 L Potassium 5.8 H D Chloride 100 Carbon Dioxide 20 L Anion Gap 18 BUN 27 H Creatinine 1.58 H Estim Creat Clear Calc 59.7 Estimated GFR 44 POC Glucose 111 Random Glucose 130 H Fasting Glucose Lactic Acid Calcium 8.5 Total Bilirubin 0.4 AST 76 H ALT 54 H Alkaline Phosphatase 127 H D C-Reactive Protein 16.79 H Total Protein 7.0 Albumin 2.7 L Vancomycin Trough Random Vancomycin COVID-19 (YANELIS) Negative COVID-19 [facility] See Note Crossmatch 02/02/22 02/02/22 02/03/22 15:37 19:55 07:41 WBC RBC Hgb Hct MCV MCH MCHC RDW Plt Count MPV Immature Gran % (Auto) Neut % (Auto) Lymph % (Auto) Frio % (Auto) Eos % (Auto) Baso % (Auto) Lymph # (Auto) Frio # (Auto) Eos # (Auto) Baso # (Auto) Abs Immat Gran (auto) Absolute Neuts (auto) Absolute Nucleated RBC Nucleated RBC % (auto) Smear Tech's Comments ESR Sodium Potassium Chloride Carbon Dioxide Anion Gap BUN Creatinine Estim Creat Clear Calc Estimated GFR POC Glucose 177 H 156 H 65 Random Glucose Fasting Glucose Lactic Acid Calcium Total Bilirubin AST ALT Alkaline Phosphatase C-Reactive Protein Total Protein Albumin Vancomycin Trough Random Vancomycin COVID-19 (YANELIS) COVID-19 [facility] Crossmatch 02/03/22 02/03/22 02/03/22 08:34 10:00 11:17 WBC RBC Hgb Hct MCV MCH MCHC RDW Plt Count MPV Immature Gran % (Auto) Neut % (Auto) Lymph % (Auto) Frio % (Auto) Eos % (Auto) Baso % (Auto) Lymph # (Auto) Frio # (Auto) Eos # (Auto) Baso # (Auto) Abs Immat Gran (auto) Absolute Neuts (auto) Absolute Nucleated RBC Nucleated RBC % (auto) Smear Tech's Comments ESR Sodium Potassium Chloride Carbon Dioxide Anion Gap BUN Creatinine 1.54 H Estim Creat Clear Calc 56.5 Estimated GFR 45 POC Glucose 150 H 161 H Random Glucose Fasting Glucose Lactic Acid Calcium Total Bilirubin AST ALT Alkaline Phosphatase C-Reactive Protein Total Protein Albumin Vancomycin Trough Random Vancomycin COVID-19 (YANELIS) COVID-19 [email or web address] Com Crossmatch 02/03/22 02/03/22 02/04/22 15:44 19:49 05:35 WBC RBC Hgb Hct MCV MCH MCHC RDW Plt Count MPV Immature Gran % (Auto) Neut % (Auto) Lymph % (Auto) Frio % (Auto) Eos % (Auto) Baso % (Auto) Lymph # (Auto) Frio # (Auto) Eos # (Auto) Baso # (Auto) Abs Immat Gran (auto) Absolute Neuts (auto) Absolute Nucleated RBC Nucleated RBC % (auto) Smear Tech's Comments ESR Sodium Potassium Chloride Carbon Dioxide Anion Gap BUN Creatinine 1.68 H Estim Creat Clear Calc 51.8 Estimated GFR 41 POC Glucose 63 154 H Random Glucose Fasting Glucose Lactic Acid Calcium Total Bilirubin AST ALT Alkaline Phosphatase C-Reactive Protein Total Protein Albumin Vancomycin Trough Random Vancomycin COVID-19 (YANELIS) COVID-19 [email or web address] Com Crossmatch 02/04/22 02/04/22 02/04/22 05:35 07:51 08:39 WBC RBC Hgb Hct MCV MCH MCHC RDW Plt Count MPV Immature Gran % (Auto) Neut % (Auto) Lymph % (Auto) Frio % (Auto) Eos % (Auto) Baso % (Auto) Lymph # (Auto) Frio # (Auto) Eos # (Auto) Baso # (Auto) Abs Immat Gran (auto) Absolute Neuts (auto) Absolute Nucleated RBC Nucleated RBC % (auto) Smear Tech's Comments ESR Sodium Potassium Chloride Carbon Dioxide Anion Gap BUN Creatinine Estim Creat Clear Calc Estimated GFR POC Glucose 47 L* 105 Random Glucose Fasting Glucose Lactic Acid Calcium Total Bilirubin AST ALT Alkaline Phosphatase C-Reactive Protein Total Protein Albumin Vancomycin Trough Random Vancomycin 16.7 COVID-19 (YANELIS) COVID-19 [facility] Com Crossmatch 02/04/22 02/04/22 02/04/22 11:36 15:25 19:34 WBC RBC Hgb Hct MCV MCH MCHC RDW Plt Count MPV Immature Gran % (Auto) Neut % (Auto) Lymph % (Auto) Frio % (Auto) Eos % (Auto) Baso % (Auto) Lymph # (Auto) Frio # (Auto) Eos # (Auto) Baso # (Auto) Abs Immat Gran (auto) Absolute Neuts (auto) Absolute Nucleated RBC Nucleated RBC % (auto) Smear Tech's Comments ESR Sodium Potassium Chloride Carbon Dioxide Anion Gap BUN Creatinine Estim Creat Clear Calc Estimated GFR POC Glucose 116 H 128 H 145 H Random Glucose Fasting Glucose Lactic Acid Calcium Total Bilirubin AST ALT Alkaline Phosphatase C-Reactive Protein Total Protein Albumin Vancomycin Trough Random Vancomycin COVID-19 (YANELIS) COVID-19 Clin Com Crossmatch 02/05/22 02/05/22 02/05/22 05:26 05:26 07:29 WBC 14.4 H RBC 2.76 L Hgb 8.1 L Hct 26.3 L MCV 95.3 MCH 29.3 MCHC 30.8 L RDW 13.5 Plt Count 409 H MPV 9.4 Immature Gran % (Auto) 0.6 H Neut % (Auto) 80.3 H Lymph % (Auto) 7.7 L Frio % (Auto) 10.7 Eos % (Auto) 0.4 Baso % (Auto) 0.3 Lymph # (Auto) 1.1 L Frio # (Auto) 1.5 H Eos # (Auto) 0.1 Baso # (Auto) 0.1 Abs Immat Gran (auto) 0.09 H Absolute Neuts (auto) 11.5 H Absolute Nucleated RBC 0.000 Nucleated RBC % (auto) 0.0 Smear Tech's Comments VERIFIED ESR Sodium 138 Potassium 4.4 D Chloride 103 Carbon Dioxide 22 Anion Gap 17 BUN 24 H Creatinine 1.60 H Estim Creat Clear Calc 54.3 Estimated GFR 43 POC Glucose 46 L* Random Glucose Fasting Glucose 44 L* Lactic Acid Calcium 8.5 Total Bilirubin 0.3 AST 56 H ALT 48 H Alkaline Phosphatase 124 H C-Reactive Protein Total Protein 6.7 Albumin 2.7 L Vancomycin Trough Random Vancomycin COVID-19 (YANELIS) COVID-19 [email or web address] Crossmatch 02/05/22 02/05/22 02/05/22 08:18 08:35 11:02 WBC RBC Hgb Hct MCV MCH MCHC RDW Plt Count MPV Immature Gran % (Auto) Neut % (Auto) Lymph % (Auto) Frio % (Auto) Eos % (Auto) Baso % (Auto) Lymph # (Auto) Frio # (Auto) Eos # (Auto) Baso # (Auto) Abs Immat Gran (auto) Absolute Neuts (auto) Absolute Nucleated RBC Nucleated RBC % (auto) Smear Tech's Comments ESR Sodium Potassium Chloride Carbon Dioxide Anion Gap BUN Creatinine Estim Creat Clear Calc Estimated GFR POC Glucose 90 129 H 151 H Random Glucose Fasting Glucose Lactic Acid Calcium Total Bilirubin AST ALT Alkaline Phosphatase C-Reactive Protein Total Protein Albumin Vancomycin Trough Random Vancomycin COVID-19 (YANELIS) COVID-19 [facility] Crossmatch 02/05/22 02/05/22 02/06/22 15:12 19:26 06:18 WBC RBC Hgb Hct MCV MCH MCHC RDW Plt Count MPV Immature Gran % (Auto) Neut % (Auto) Lymph % (Auto) Frio % (Auto) Eos % (Auto) Baso % (Auto) Lymph # (Auto) Frio # (Auto) Eos # (Auto) Baso # (Auto) Abs Immat Gran (auto) Absolute Neuts (auto) Absolute Nucleated RBC Nucleated RBC % (auto) Smear Tech's Comments ESR Sodium 137 Potassium 4.3 Chloride 105 Carbon Dioxide 26 Anion Gap 10 L BUN 26 H Creatinine 1.77 H Estim Creat Clear Calc 49.1 Estimated GFR 39 POC Glucose 103 230 H Random Glucose Fasting Glucose 53 L* Lactic Acid Calcium 8.4 Total Bilirubin 0.3 AST 49 H ALT 47 H Alkaline Phosphatase 125 H C-Reactive Protein Total Protein 6.5 Albumin 2.6 L Vancomycin Trough Random Vancomycin COVID-19 (YANELIS) COVID-19 [facility] Crossmatch 02/06/22 02/06/22 02/06/22 06:18 06:18 07:25 WBC 13.2 H RBC 2.54 L Hgb 7.6 L Hct 24.1 L MCV 94.9 MCH 29.9 MCHC 31.5 RDW 13.4 Plt Count 365 MPV 9.5 Immature Gran % (Auto) 0.5 H Neut % (Auto) 77.9 H Lymph % (Auto) 8.3 L Frio % (Auto) 11.5 H Eos % (Auto) 1.3 Baso % (Auto) 0.5 Lymph # (Auto) 1.1 L Frio # (Auto) 1.5 H Eos # (Auto) 0.2 Baso # (Auto) 0.1 Abs Immat Gran (auto) 0.06 H Absolute Neuts (auto) 10.3 H Absolute Nucleated RBC 0.000 Nucleated RBC % (auto) 0.0 Smear Tech's Comments VERIFIED ESR Sodium Potassium Chloride Carbon Dioxide Anion Gap BUN Creatinine Estim Creat Clear Calc Estimated GFR POC Glucose 53 L* Random Glucose Fasting Glucose Lactic Acid Calcium Total Bilirubin AST ALT Alkaline Phosphatase C-Reactive Protein Total Protein Albumin Vancomycin Trough 23.1 H Random Vancomycin COVID-19 (YANELIS) [facility] Crossmatch 02/06/22 02/06/22 08:07 08:35 WBC RBC Hgb Hct MCV MCH MCHC RDW Plt Count MPV Immature Gran % (Auto) Neut % (Auto) Lymph % (Auto) Frio % (Auto) Eos % (Auto) Baso % (Auto) Lymph # (Auto) Frio # (Auto) Eos # (Auto) Baso # (Auto) Abs Immat Gran (auto) Absolute Neuts (auto) Absolute Nucleated RBC Nucleated RBC % (auto) Smear Tech's Comments ESR Sodium Potassium Chloride Carbon Dioxide Anion Gap BUN Creatinine Estim Creat Clear Calc Estimated GFR POC Glucose 115 Random Glucose Fasting Glucose Lactic Acid Calcium Total Bilirubin AST ALT Alkaline Phosphatase C-Reactive Protein Total Protein Albumin Vancomycin Trough Random Vancomycin COVID-19 (YANELIS) COVID-[employer] Crossmatch See Detail Narrative Narrative: Patient uncomfortable with pain in left foot Airway Mallampati Class: III TM Dist: >3cm Neck ROM: Full Partial: Upper Loose/Missing/Broken Teeth: Yes and No (Denies broken or loose teeth) Heart: RRR Lungs: CTAB Assessment and Plan Assessment Anesthesia Assessment: Anesthesia Plan Discussed and Chart Reviewed Final Anesthetic Review Family History of Problems with Anesthesia: No History of Problems with Anesthesia: No NPO: Yes ASA Class: III Final Preanesthetic Review: No Changes in Pt Med Stat, Meds/Allgs Chart Reviewed, Consent Obtained/Reviewed and Anes Risks/Benef Reviewed Patient Risk: Intermediate Procedure Risk: Low Assessment/Block/Sedation in SS: Assess/Block/Sedation-SS Anesthetic Plan Anesthetic Plan: GA Disposition: Standard PACU and Inp. Admit - Standard Bed
--- NOTE | 2022-02-06 09:37 | PC.NURSE ---
okayed per dr martinez and anesthesia, dr richards, to transfuse after surgery.
[2022-02-06 10:45] LABS: Glucose, Whole Blood 61 mg/dL (60-115)
[2022-02-06] MEDS: Dextrose 5 % 500 ML 20 ML IV (10:45)
[2022-02-06] MEDS: 0.9 % Sodium Chloride 1,000 ML 100 ML IVCONT ×2 (10:46→17:47)
[2022-02-06] MEDS: fentaNYL citrate/PF 100 MCG/2 ML VIAL 50 MCG IVPUSH ×2 (11:32→11:38)
--- NOTE | 2022-02-06 11:48 | PC.NURSE ---
medicated with fentanyl 50mcg x 2 for 10/ pain, then 7/10 with relief to 4-5/10. per anesthesia order.
[2022-02-06 12:31] LABS: Glucose, Whole Blood 75 mg/dL (60-115)
--- NOTE | 2022-02-06 13:46 | P.OP_ITS ---
Operative Note Operative Note Date of Service: 02/06/22 Narrative: Operative note by [facility] Preoperative diagnosis: Nonhealing left foot amputation site 2. Osteomyelitis Postoperative diagnosis: Same Procedure: Left transmetatarsal amputation Surgeon:Lyle Topete M.D. Humidifier Maintenance Worker: Shahnaz Anesthesia: General Specimens: 1 Drains: None Estimated blood loss: Minimal Indications: 66-year-old diabetic gentleman underwent left great toe amputation. He was subsequently discharged and readmitted as it was nonhealing. He now presents for transmetatarsal amputation. The patient has signed the informed consent after reviewing risks, complications, benefits, and alternatives previously discussed with the patient. The patient was given the opportunity to ask any additional questions or voice any concerns. All questions were answered to the patient's satisfaction. Procedure in detail: Patient was brought to the operating room prior to which a time-out was called for patient identification site verification. Curvilinear incision was made over the dorsum of the foot approximately 10 cm below the ankle. Once this was accomplished we created a posterior flap as well. We used a power saw to go across all the metatarsal heads. Once through we used electrocautery to create a posterior flap. Once this was off we used electrocautery to obtain adequate hemostasis. We irrigated the wound thoroughly. Sharp bony edges were filed down along with a rasp. We then brought the posterior flap up using 2-0 Polysorb suture. This was done in multiple interrupted some areas and in multiple layers as well. Once we did get good reapproximation we used a 2 0 nylon suture in a mattress fashion. Subsequent to that we use skin clips along the entire length of the incision line. Once this was all done Xeroform and a sterile dressing were applied. At the end the case sponge instrument counts were correct. Patient tolerated the procedure well and returned to recovery with stable vitals. This note is constructed using voice recognition software. While every effort has been made to ensure accuracy, assistant district attorney errors may have been included. Thank you for allowing me to participate in the care of your patient. Yours sincerely, Lyle Topete MD, FACS, R.P.V.I.
--- NOTE | 2022-02-06 13:46 | MHC.SHP ---
Pre-Procedural Eval Section A Date of Service: 02/06/22 The patient is an INPATIENT: Yes Changes since office visit: Yes Patient answered all questions The History & Physical has been completed within 30 days and I have reviewed it.: Yes Section B Chief Complaint: Left foot cellulitis Allergies: Allergies Allergy/AdvReac Type Severity Reaction Status Date / Time No Known Allergies Allergy Verified 01/24/22 06:12 [No Known Allergies*] Plan I have reviewed the history and physical and performed a pertinent physical examination on my patient. No changes have occurred unless specified.
[2022-02-06] MEDS: fentaNYL citrate/PF 100 MCG/2 ML VIAL 25 MCG IVPUSH ×4 (13:59→14:29)
[2022-02-06 14:50] LABS: Glucose, Whole Blood 75 mg/dL (60-115)
[2022-02-06 16:07] LABS: Glucose, Whole Blood 157 mg/dL (60-115)
--- NOTE | 2022-02-06 17:02 | PC.NURSE ---
Patient confused on arrival from PACU,anxious,wants to leave hospital,pulled out IV,alarm on ,telesiter is on,reoriented patient with north korean speaking GENERAL CLERK,Nursing fixer supervisor notified but no sitter available,Dr. Vu notified speaking with patient at present,called family,family at bedside at present,will monitor patient closely
--- NOTE | 2022-02-06 17:24 | P.PNIM_ITS ---
Subjective Subjective Date of Service: 02/07/22 Interval History: hypoglycemia,dm foot Review of Systems Denies chest pain or shortness of breath or nausea vomiting or diarrhea or fever chills Physical Exam Vital Signs: Vital Signs: Last Vital Signs Temp 97.3 F 02/06/22 15:40 Pulse 75 02/06/22 15:40 Resp 17 02/06/22 15:40 BP 171/77 H 02/06/22 15:40 Pulse Ox 93 02/06/22 15:40 O2 Del Method 02/06/22 15:40 O2 Flow Rate 3 02/06/22 14:44 BMI result Body Mass Index 28.5 Appearance: Alert.? Oriented X2 ,somewhat confused after surgery cvs: rrr, [id number] , no murmur res: clear to auscultation ,no rhonchii or wheezing abd: no rebound or guarding ,nt, bs present. ext pulses present , no cyanosis . left transmetatarsal amputation neuro: axo3 , nonfocal. Objective Data Active Medications Amlodipine Besylate (Amlodipine Besylate 5 Mg Tablet) 5 mg PO BID [facility]; Protocol Last Admin: 02/06/22 08:02 Dose: 5 mg Documented By: DENZEL Atorvastatin Calcium (Atorvastatin Calcium 80 Mg Tablet) 80 mg PO DAILY [facility] Last Admin: 02/06/22 08:02 Dose: 80 mg Documented By: DENZEL Dextrose (Dextrose 50 % 25 Gm/50 Ml Syringe) 25 gm IVPUSH Q15M PRN PRN Reason: per Hypoglycemia Standing Ord. Last Admin: 02/06/22 07:35 Dose: 25 gm Documented By: DENZEL Enoxaparin Sodium (Enoxaparin Sodium 30 Mg/0.3 Ml Syringe) 30 mg SUBCUT Q24H [facility] Last Admin: 02/06/22 08:03 Dose: Not Given Documented By: DENZEL Non-Admin Reason: pre op Fluticasone Propionate (Fluticasone Propionate Nasal 16 Gm [place]) 2 spray NOSTRIL-B DAILY PRN PRN Reason: Nasal Congestion Furosemide (Furosemide 40 Mg Tablet) 40 mg PO DAILY [facility]; Protocol Last Admin: 02/05/22 09:01 Dose: 40 mg Documented By: DENZEL Hydralazine HCl (Hydralazine Hcl 50 Mg Tablet) 50 mg PO TID [facility]; Protocol Last Admin: 02/06/22 16:21 Dose: 50 mg Documented By: ARTEMIO Hydromorphone HCl (Hydromorphone Hcl 1 Mg/Ml Syringe) 1 mg IVPUSH Q3H PRN; Protocol PRN Reason: Pain, Severe (Pain Scale 7-10) Last Admin: 02/06/22 06:24 Dose: 1 mg Documented By: HELEN Piperacillin Sod/Tazobactam (Sod 3.375 gm/ Sodium Chloride) 50 mls @ 100 mls/hr IV Q6H [facility] Last Infusion: 02/06/22 15:01 Dose: 0 mls/hr Documented By: DENZEL Vancomycin HCl 1,250 mg/ (Sodium Chloride) 250 mls @ 166.667 mls/hr IV Q24H [facility] Last Infusion: 02/05/22 10:54 Dose: 0 mls/hr Documented By: DENZEL Sodium Chloride (Ns) 1,000 mls @ 100 mls/hr IVCONT .Q10H [facility] Last Admin: 02/06/22 10:46 Dose: 100 mls/hr Documented By: HALEY Dextrose (D5w) 500 mls @ 0 mls/hr IV .Q0M PRN PRN Reason: Per Protocol Last Admin: 02/06/22 10:45 Dose: 20 mls/hr Documented By: HALEY Dextrose (D5w) 250 mls @ 0 mls/hr IVCONT .Q0M [facility] Insulin Glargine (Insulin Glargine,Hum.Rec.Anlog 100 Unit/Ml 10 Ml Vial) 18 unit SUBCUT BEDTIME [facility] Last Admin: 02/05/22 20:36 Dose: 18 unit Documented By: ARTEMIO Insulin Human Lispro (Insulin Lispro 100 Unit/Ml 3 Ml Vial) 0 unit SUBCUT QIDACHS [facility]; Protocol Last Admin: 02/06/22 16:16 Dose: Not Given Documented By: ARTEMIO Non-Admin Reason: No Insulin Coverage Losartan Potassium (Losartan Potassium 50 Mg Tablet) 50 mg PO DAILY [facility]; Protocol Last Admin: 02/05/22 09:01 Dose: 50 mg Documented By: DENZEL Metoprolol Succinate (Metoprolol Succinate Er 100 Mg Tab.Er.24h) 100 mg PO DAILY [facility]; Protocol Last Admin: 02/06/22 08:02 Dose: 100 mg Documented By: DENZEL Ondansetron HCl (Ondansetron Hcl 4 Mg/2 Ml Vial) 4 mg IVPUSH ONCE PRN PRN Reason: Nausea and Vomiting Oxycodone HCl (Oxycodone Hcl Immed Release 5 Mg Tablet) 5 mg PO Q8H PRN PRN Reason: Pain, Moderate (Pain Scale 4-6 Last Admin: 02/05/22 14:35 Dose: 5 mg Documented By: DENZEL Oxycodone HCl (Oxycodone Hcl Immed Release 5 Mg Tablet) 10 mg PO Q6H PRN PRN Reason: Pain, Moderate (Pain Scale 4-6 Last Admin: 02/06/22 08:02 Dose: 10 mg Documented By: DENZEL Oxycodone HCl (Oxycodone Hcl Immed Release 5 Mg Tablet) 5 mg PO ONCE PRN PRN Reason: Pain, Moderate (Pain Scale 4-6 Oxycodone HCl (Oxycodone Hcl Immed Release 5 Mg Tablet) 10 mg PO ONCE PRN PRN Reason: Pain, Severe (Pain Scale 7-10) Pharmacy Consult (Consult Rx Vancomycin Dosing) 1 each MISCELLANE DAILY PRN PRN Reason: Consult order Pharmacy Consult (Consult Rx Perform Med Rec) 1 each MISCELLANE ONCE PRN PRN Reason: Consult order Sertraline HCl (Sertraline Hcl 50 Mg Tablet) 50 mg PO DAILY [facility] Last Admin: 02/06/22 08:02 Dose: 50 mg Documented By: DENZEL Sitagliptin Phosphate (Sitagliptin Phosphate 100 Mg Tablet) 100 mg PO DAILY [facility] Last Admin: 02/05/22 09:01 Dose: 100 mg Documented By: DENZEL Sodium Chloride (0.9 % Sodium Chloride Flush 3 Ml Syringe) 3 ml IVFLUSH QSHIFT [facility] Last Admin: 02/06/22 16:18 Dose: Not Given Documented By: ARTEMIO Non-Admin Reason: IV Running Tamsulosin HCl (Tamsulosin Hcl 0.4 Mg Capsule) 0.4 mg PO BEDTIME [facility] Last Admin: 02/05/22 20:35 Dose: 0.4 mg Documented By: ARTEMIO Labs CBC & Chem 7: 02/07/22 05:23 02/07/22 05:23 Labs: Laboratory Results - last 24 hr 02/05/22 02/06/22 02/06/22 19:26 06:18 06:18 MCV MCH MCHC RDW Plt Count MPV Immature Gran % (Auto) Neut % (Auto) Lymph % (Auto) [place]oun % (Auto) Eos % (Auto) Baso % (Auto) Lymph # (Auto) [place] # (Auto) Eos # (Auto) Baso # (Auto) Abs Immat Gran (auto) Absolute Neuts (auto) Absolute Nucleated RBC Nucleated RBC % (auto) Smear Tech's Comments Anion Gap 10 L Estim Creat Clear Calc 49.1 Estimated GFR 39 POC Glucose 230 H Fasting Glucose 53 L* Calcium 8.4 Total Bilirubin 0.3 AST 49 H ALT 47 H Alkaline Phosphatase 125 H Total Protein 6.5 Albumin 2.6 L Vancomycin Trough 23.1 H Blood Type Antibody Screen Crossmatch 02/06/22 02/06/22 02/06/22 06:18 07:25 08:07 MCV 94.9 MCH 29.9 MCHC 31.5 RDW 13.4 Plt Count 365 MPV 9.5 Immature Gran % (Auto) 0.5 H Neut % (Auto) 77.9 H Lymph % (Auto) 8.3 L [place] % (Auto) 11.5 H Eos % (Auto) 1.3 Baso % (Auto) 0.5 Lymph # (Auto) 1.1 L [place] # (Auto) 1.5 H Eos # (Auto) 0.2 Baso # (Auto) 0.1 Abs Immat Gran (auto) 0.06 H Absolute Neuts (auto) 10.3 H Absolute Nucleated RBC 0.000 Nucleated RBC % (auto) 0.0 Smear Tech's Comments VERIFIED Anion Gap Estim Creat Clear Calc Estimated GFR POC Glucose 53 L* 115 Fasting Glucose Calcium Total Bilirubin AST ALT Alkaline Phosphatase Total Protein Albumin Vancomycin Trough Blood Type Antibody Screen Crossmatch 02/06/22 02/06/22 02/06/22 08:35 10:41 12:20 MCV MCH MCHC RDW Plt Count MPV Immature Gran % (Auto) Neut % (Auto) Lymph % (Auto) [place] % (Auto) Eos % (Auto) Baso % (Auto) Lymph # (Auto) [place] # (Auto) Eos # (Auto) Baso # (Auto) Abs Immat Gran (auto) Absolute Neuts (auto) Absolute Nucleated RBC Nucleated RBC % (auto) Smear Tech's Comments Anion Gap Estim Creat Clear Calc Estimated GFR POC Glucose 61 75 Fasting Glucose Calcium Total Bilirubin AST ALT Alkaline Phosphatase Total Protein Albumin Vancomycin Trough Blood Type O Positive Antibody Screen NEGATIVE Crossmatch See Detail 02/06/22 02/06/22 13:43 15:43 MCV MCH MCHC RDW Plt Count MPV Immature Gran % (Auto) Neut % (Auto) Lymph % (Auto) [place] % (Auto) Eos % (Auto) Baso % (Auto) Lymph # (Auto) [place] # (Auto) Eos # (Auto) Baso # (Auto) Abs Immat Gran (auto) Absolute Neuts (auto) Absolute Nucleated RBC Nucleated RBC % (auto) Smear Tech's Comments Anion Gap Estim Creat Clear Calc Estimated GFR POC Glucose 75 157 H Fasting Glucose Calcium Total Bilirubin AST ALT Alkaline Phosphatase Total Protein Albumin Vancomycin Trough Blood Type Antibody Screen Crossmatch Assessment and Plan (1) CKD stage 3 due to type 2 diabetes mellitus: Status: Acute (2) Osteomyelitis: Status: Acute (3) Acute hypoxemic respiratory failure: Status: Acute (4) CHF (congestive heart failure): Status: Acute (5) Pneumonia: Status: Acute Plan 66-year-old insulin dependent male presents to hospital with increased redness swelling and warmth 2 left foot amputation site and lower leg.? On 01/25/22 he underwent left great toe amputation by Dr. Topete; subsequent postoperative course unremarkable.? He was discharged home? 01/29/22 on an oral course of Keflex.? Returns today with increased pain erythema and warmth left lower extremity.? Has remained tolerant of therapy however sugars have been bottoming in a.m. secondary to lack of p.m. snacks.? Dr. Topete to see today... Acute hypoxemic respiratory failure possible multifactorial-secondary to CHF exacerbation, etiology unclear, echo pending. in addition also has component of pneumonia possible aspiration considering had surgery procedure yesterday Patient received fluids while n p.o. for surgery chest x-ray-? possible aspiration pneumonia component/CHF bnp 1000's range started on lasix iv 40 mg bid, antibiotics,Oxygen support daily weight, input and output monitor. acute osteomyelitis of left foot/Diabetic foot infection (left) -vancomycin/Zosyn (5) -consult vascular surgery prior to PICC....? Query amputation versus 6 weeks of IV antibiotics. Status post vascular surgery -trans met amputation left side toxic metabolic encephalopathy secondary to possible anaesthesia, patient is improving mental status wu now DM II (poorly control) -continue long-acting insulin (ask Pharmacy to convert Tresiba to Lantus) -lispro correctional scale -will decrease glipizide p.m. dose to 10 mg and follow -ADA diet -adjust therapies as indicated CKD 3 with hyperkalemia -potassium normalized -follow renals/divalents HTN (uncontrolled) -restarted outpatient regimen. ..? Remains poorly control -increase hydralazine to 50 mg t.i.d. -adjust as indicated Full code Lovenox need of ongoing hospitalization : acute hypoxemic respiratory failure multifactorial-secondary to CHF exacerbation/pneumonia Quality Stroke Does the patient have a stroke diagnosis?: No VTE Prior VTE?: No VTE Risk Level:: Medical - moderate - high VTE Device Contraindication: Treatment Not Indicated VTE Drug Contraindication: N/A - Med Ordered
[2022-02-06 20:04] LABS: Glucose, Whole Blood 181 mg/dL (60-115)
[2022-02-06] MEDS: Tamsulosin HCL 0.4 MG CAPSULE PO (20:09)
[2022-02-06 21:50] LABS: Vancomycin Random 16.6 mcg/mL (15-20)
[2022-02-07] VITALS (7 sets, daily range): BP systolic 140–185; BP diastolic 56–88; PULSE 75–96; RESP 16–250; TEMP 36.5–37.2; O2SAT 90–95
[2022-02-07] MEDS: Piperacillin Sodium/Tazobactam 3.375 GM in 0.9 % Sodium Chloride 50 ML IV ×5 (00:47→18:13)
[2022-02-07] MEDS: HYDROmorphone HCl 1 MG/ML SYRINGE IVPUSH ×3 (00:58→18:13)
[2022-02-07 06:22] LABS: MANUAL DIFF FLAG NO
[2022-02-07 06:48] LABS: Basophils Absolute Auto 0.1 X10*3/uL (0.0-0.2); Basophils Percent Auto 0.4 % (0-2); Eosinophils Percent Auto 0.3 % (0-4); Hematocrit 28.8 % (42.0-52.0); Hemoglobin 8.7 g/dl (14.0-18.0); Imm Gran Abs Auto 0.08 X10*3/uL (0.00-0.03); Imm Gran Pct Auto 0.6 % (0.0-0.4); Lymphocytes Absolute Auto 0.6 X10*3/uL (1.2-4.9); Lymphocytes Percent Auto 4.8 % (20-40); Mean Corpuscular HGB Conc 30.2 g/dl (31.0-36.0); Mean Corpuscular Hemoglobin 29.2 pg (27.0-33.0); Mean Corpuscular Volume 96.6 fL (80.0-98.0); Mean Platelet Volume 9.5 fL (9.4-12.4); Monocytes Absolute Auto 1.2 X10*3/uL (0.1-1.2); Monocytes Percent Auto 9.4 % (2-11); Neutrophils Absolute Auto 10.9 x10*3/uL (2.0-8.3); Neutrophils Percent Auto 84.5 % (45-73); Platelet Count 302 X10*3/uL (160-400); Red Blood Count 2.98 X10*6/uL (4.60-5.80); Red Cell Distribution Width 14.6 % (11.0-16.0); White Blood Count 12.9 X10*3/uL (4.8-10.8)
--- NOTE | 2022-02-07 07:32 | PC.NURSE ---
resp rate 0045 within tar should be 20 versus 250 as seen, unable to edit
[2022-02-07] MEDS: oxyCODONE HCl Immed Release 5 MG TABLET 10 MG PO ×2 (07:45→21:44)
[2022-02-07 07:46] LABS: Glucose, Whole Blood 182 mg/dL (60-115)
[2022-02-07 08:14] LABS: Alanine Aminotransferase 40 U/L (0-40); Albumin Level 2.5 g/dL (3.5-5.0); Alkaline Phosphatase 113 U/L (39-117); Aspartate Amino Transferase 47 U/L (5-37); Bilirubin Total 0.5 mg/dL (0.0-1.0); Blood Urea Nitrogen 28 mg/dL (9-16); Creatinine Clr Calc Pharmacy 49.1; Estimated Glomerular Filt Rate 39; Glucose Fasting 192 mg/dL (60-99); Total Protein 6.3 g/dL (6.5-8.0)
[2022-02-07 08:27] LABS: Anion Gap 19 (12-20); Carbon Dioxide 17 mmol/L (22-29); Chloride 105 mmol/L (96-108); Potassium 4.8 mmol/L (3.3-5.1); Sodium 136 mmol/L (135-145)
[2022-02-07] MEDS: Docusate Sodium 100 MG CAPSULE PO ×2 (08:57→21:44)
[2022-02-07] MEDS: vancomycin HCL 750 MG in 0.9 % Sodium Chloride 250 ML 265 MG IV (08:57)
[2022-02-07] MEDS: Sertraline HCL 50 MG TABLET PO (08:57)
[2022-02-07] MEDS: hydrALAZINE HCl 50 MG TABLET PO ×3 (08:57→21:44)
[2022-02-07] MEDS: Atorvastatin Calcium 80 MG TABLET PO (08:57)
[2022-02-07] MEDS: amLODIPine Besylate 5 MG TABLET PO ×2 (08:57→21:44)
[2022-02-07] MEDS: Enoxaparin Sodium 30 MG/0.3 ML SYRINGE SUBCUT (08:58)
[2022-02-07] MEDS: Insulin Lispro 100 UNIT/ML 3 ML VIAL SUBCUT ×3 (08:58→17:44)
[2022-02-07] MEDS: Metoprolol Succinate ER 100 MG TAB.ER.24H PO (08:58)
--- NOTE | 2022-02-07 09:51 | P.CDIC_ITS ---
CDI Concurrent Query Documentation Clarification: PHYSICIAN'S DOCUMENTATION REQUEST Date of Query: 02/07/22 0951 Patient Name: Kingsley Rivero Admit Date: 02/02/22 Dear Doctor, A review of the medical record indicates additional documentation may be needed. Please review below and update the documentation accordingly. Clinical Indicators: Documentation on 02/06/22 indicates Osteomyelitis. Risk Factors/Clinical Indicators/Treatments IV antibiotics to treat osteomyelitis,s/p surgery Based on the above, please clarify in the Progress Notes further specificity regarding the type of Osteomyelitis. Also include specific site with laterality and known or suspected infectious agent: * Acute osteomyelitis * Acute hematogenous osteomyelitis * Subacute osteomyelitis * Chronic osteomyelitis * Chronic hemotogenous osteomyelitis * Chronic multifocal osteomyelitis * Other (please specify) * Unable to determine Use of terms such as suspected, likely, concern for, or probable (associated with a specific diagnosis that is being evaluated, monitored, or treated as if it exists) are acceptable and can be coded in the inpatient setting, when documented at the time of discharge. Thank you, Ava Crump RN Extension: [phone] Please use your independent medical judgment in providing your response. THIS QUERY IS PART OF THE PERMANENT MEDICAL RECORD Provider Response: Other Other Diagnosis: acute osteomyelitis
--- NOTE | 2022-02-07 10:37 | P.PNVS_ITS ---
Subjective Subjective Date of Service: 02/07/22 Interval history: Very pleasant 66-year-old gentleman postop day 1 status post left transmetatarsal amputation. No events overnight. Reports pain is fairly well controlled. Now for postoperative follow-up. Physical Exam Vital Signs: Vital Signs: Last Vital Signs Temp 98.2 F 02/07/22 07:07 Pulse 82 02/07/22 07:07 Resp 17 02/07/22 07:07 BP 140/56 H 02/07/22 07:07 Pulse Ox 90 L 02/07/22 07:07 O2 Del Method 02/07/22 07:07 O2 Flow Rate 2 02/07/22 00:00 BMI result Body Mass Index 28.5 Const: General: cooperative, healthy appearing and no acute distress Orientation/consciousness: oriented to person, oriented to place and oriented to time HEENT: Head: Yes normal to inspection Neck: Carotids: no bruits Chest: Chest palpation & inspection: normal inspection of the chest Resp: Effort & Inspection: normal respiratory effort and able to speak in complete sentences Auscultation: clear to auscultation bilaterally Cardio: Rate: regular rate Heart sounds: S1 normal heart sound present and S2 normal heart sound present GI: Inspection: Yes normal to inspection Skin: Other: Left foot dressing clean dry intact General skin exam: no rashes or lesions noted Wounds: no wounds Neuro: General: oriented to person, oriented to place, oriented to time and CN 's II-XI intact bilaterally Extrem: General: Yes normal to inspection, Yes full ROM and Yes no clubbing, cyanosis or edema Psych: Appearance: grossly normal and well kempt Speech and movement: Normal speech and movement present Affect: normal affect Progress Note: A&P Assessment and plan (1) PAD (peripheral artery disease): Status: Acute Assessment and Plan: In short patient is doing well postop. No other interval issues. Will plan for dressing change for tomorrow. If stable would anticipate discharge as early as tomorrow. Time Spent With Patient Time: Total time spent is greater than 50% in coordination of care (as documented) at patient's floor/unit and/or counseling patient: Procedures Date of Service Date of Service: 02/07/22 Quality Stroke Does the patient have a stroke diagnosis?: No VTE Prior VTE?: No VTE Risk Level:: Medical - moderate - high VTE Device Contraindication: Treatment Not Indicated VTE Drug Contraindication: N/A - Med Ordered
[2022-02-07 11:16] LABS: Glucose, Whole Blood 201 mg/dL (60-115)
[2022-02-07] MEDS: Furosemide 20 MG/2 ML VIAL IVPUSH (11:44)
[2022-02-07 12:17] LABS: B Type Natriuretic Peptide 1107 pg/mL (<100)
--- NOTE | 2022-02-07 13:40 | HO.POSTANES ---
Post Anesthesia Evaluation Post Anesthesia Evaluation Vital Signs: Vital Signs Temp Pulse Resp BP Pulse Ox O2 Del Method 02/07/22 07:07 98.2 F 82 17 140/56 H 90 L Room Air Anesthesia: General Mental Status: Awake Pain Control: Satisfactory Nausea/Vomiting: None Hydration: Adequate Anesthesia-Related Issues: No Anes. Related Issues
[2022-02-07 14:23] LABS: Procalcitonin 0.17 ng/mL
[2022-02-07] MEDS: Morphine Sulfate 2 MG/ML CARTRIDGE IVPUSH (14:30)
[2022-02-07 16:09] LABS: Glucose, Whole Blood 237 mg/dL (60-115)
[2022-02-07] MEDS: Furosemide 40 MG/4 ML VIAL IVPUSH (17:43)
[2022-02-07] MEDS: 0.9 % Sodium Chloride Flush 3 ML SYRINGE IVFLUSH ×2 (17:45→21:45)
[2022-02-07] MEDS: Albuterol/Iprat 2.5/0.5MG 3 ML AMPUL.NEB INHALE (19:27)
[2022-02-07 19:44] LABS: Glucose, Whole Blood 138 mg/dL (60-115)
--- NOTE | 2022-02-07 20:59 | PM.EVENT ---
Event Note Date of Service: 02/07/22 Event Note: 10 d po Doxcycline and Augmentin on discharge
[2022-02-07] MEDS: Tamsulosin HCL 0.4 MG CAPSULE PO (21:44)
[2022-02-08] VITALS (9 sets, daily range): BP systolic 166–195; BP diastolic 72–89; PULSE 78–97; RESP 15–20; TEMP 36.1–37.1; O2SAT 88–97
[2022-02-08] MEDS: oxyCODONE HCl Immed Release 5 MG TABLET 10 MG PO ×2 (05:55→20:04)
[2022-02-08] MEDS: Piperacillin Sodium/Tazobactam 3.375 GM in 0.9 % Sodium Chloride 50 ML IV ×2 (05:56→12:26)
[2022-02-08] MEDS: Furosemide 40 MG/4 ML VIAL IVPUSH (05:56)
--- NOTE | 2022-02-08 07:00 | CA_ITS ---
Transthoracic Echocardiogram Patient (Last, First, Middle): Kingsley Rivero R Gender: Male Date of : 1955 Age: 66 Procedure Date: 02/08/2022 Procedure Type: Transthoracic Echocardiogram Location: [facility] [place] Height: 182.88 cm Weight: 95.26 kg BSA: 2.18 m2 Heart Rate: 82 bpm BP: 140 / 56 mmHg Tunnel Worker: CLARY Referring MD: Juliocesar Vu MD Symptoms: chf Study Quality: Fair/Contrast ECG Rhythm: Sinus Conclusions: - Normal left ventricular size, thickness, and systolic function. The visually estimated ejection fraction is between 55-60%. - Elevated filling pressures. - Mildly increased right ventricular cavity size. There is mildly decreased right ventricular systolic function. - The left atrium is mildly dilated. The right atrium is normal in size. - There is mild dilatation of the sinuses of Valsalva measuring 3.70 cm and mild dilatation of the ascending aorta measuring 3.40 cm. Findings Procedure Information Contrast agent, definity, is being given per protocol without apparent complications. Left Ventricle Normal left ventricular size, thickness, and systolic function. The visually estimated ejection fraction is between 55-60%. Regional wall motion abnormalities can not be excluded due to suboptimal endocardial definition. Abnormal diastolic function is noted. Spectral Doppler is indicative of a pseudonormal filling pattern. Elevated filling pressures. Right Ventricle Mildly increased right ventricular cavity size. There is mildly decreased right ventricular systolic function. Atria The left atrium is mildly dilated. The right atrium is normal in size. Aortic Valve There is a normal trileaflet aortic valve. There is mild calcification of the aortic valve. There is no aortic valve stenosis. There is no aortic valve regurgitation. Pulmonic Valve The pulmonic valve is likely normal. Tricuspid Valve Normal tricuspid valve structure and function. Mildly elevated right atrial pressure. There is no evidence of pulmonary hypertension. Great Vessels There is mild dilatation of the sinuses of Valsalva measuring 3.70 cm and mild dilatation of the ascending aorta measuring 3.40 cm. The visualized portions of the pulmonary artery and branches are normal. Venous The inferior vena cava is dilated and collapses greater than 50% with inspiration. Pericardium/Pleural There is no evidence of pericardial effusion. Prior Study Comparison Changes noted compared to prior study dated: 08/16/2018. Mildly dilated RV with mildly reduced function. Measurements 2D Linear Measurements IVSd: 0.76 0.6-0.9/0.6-1.0 cm LVIDd: 5.60 3.9-5.3/4.2-5.9 cm LVIDd Index: 2.57 2.4-3.2/2.2-3.1 cm/m2 LVIDs: 3.93 2.0-3.6 cm LVPWd: 0.91 0.7-1.1 cm LA Diam: 4.00 2.7-3.8/3.0-4.0 cm LAIDs Index: 1.83 1.5-2.3 cm/m2 LV Mass: 216.80 67-162/88-224 g LV Mass Index: 99.45 43-95/49-115 g/m2 LVOT Diam: 2.30 3.0+(-)1.3 cm 2D Systolic Function EF 4C: 64.00 >55% EF 2C: 66.20 >55% EF BiP: 64.80 >55% Mitral Valve MV Pk E: 1.53 MV PK A: 0.88 MV Decel Time: 141.00 E/A: 1.70 E'Lateral: 9.90 E'Medial: 6.74 E/E' Med: 22.70 E/E' Lat: 15.50 PHT: 41.00 MVA PHT: 5.37 Decel [place]: 10.85 Aortic Valve AoV Pk Gerard: 1.67 AoV Mn Gerard: 1.06 AoV VTI: 0.32 AoV Pk Grad: 11.00 Aov Mn Grad: 5.00 BRENNA Cont.VTI: 3.85 LVOT LVOT Pk Gerard: 1.50 LVOT Mn Gerard: 0.96 LVOT VTI: 0.30 LVOT Pk Grad: 9.00 LVOT Mn Grad: 4.00 LVOT Diam: 2.30 LVOT Area: 4.15 Diastolic Function MV Pk E: 1.53 MV Pk A: 0.88 E/A: 1.70 E'Medial: 6.74 E/E' Med: 22.70 E' Laterial: 9.90 E/E' Lat: 15.50 Right Ventricle TAPSE (mm): 22.30 TVS' Gerard: 13.70 Tricuspid Valve TR Pk Gerard: 2.23 TR Pk Grad: 20.00 RA Press: 8.00 RVSP: 28.00 Great Vessels Aorta Sinus of Valsalva: 3.70 2.0-3.5 cm Ao Asc: 3.40 2.1-3.4 cm Pulmonary Valve PV Pk Gerard: 0.98 Peak PV Grad: 4.00 Updated in Other Vendor System with Status of Final Armando Moody MD electronically signed on 02/08/2022 2:21:57 PM with status of Final
[2022-02-08 07:24] LABS: Hematocrit 27.7 % (42.0-52.0); Hemoglobin 8.8 g/dl (14.0-18.0); Mean Corpuscular HGB Conc 31.8 g/dl (31.0-36.0); Mean Corpuscular Hemoglobin 29.3 pg (27.0-33.0); Mean Corpuscular Volume 92.3 fL (80.0-98.0); Mean Platelet Volume 9.5 fL (9.4-12.4); Platelet Count 346 X10*3/uL (160-400); Red Cell Distribution Width 14.1 % (11.0-16.0); White Blood Count 15.1 X10*3/uL (4.8-10.8)
[2022-02-08] MEDS: Albuterol/Iprat 2.5/0.5MG 3 ML AMPUL.NEB INHALE ×4 (07:28→18:50)
[2022-02-08 07:41] LABS: Vancomycin Random 18.1 mcg/mL (15-20)
[2022-02-08 07:43] LABS: Creatinine Clr Calc Pharmacy 48.6; Estimated Glomerular Filt Rate 38
[2022-02-08 07:48] LABS: Glucose, Whole Blood 182 mg/dL (60-115)
[2022-02-08 07:48] LABS: Blood Urea Nitrogen 29 mg/dL (9-16); Calcium 8.5 mg/dL (8.4-10.2); Creatinine Clr Calc Pharmacy 49.1; Estimated Glomerular Filt Rate 39; Glucose Random 185 mg/dL (60-115)
--- NOTE | 2022-02-08 07:54 | HE.PHANOTE ---
RE: marielao Pt's creatinine is slowly worsening and trough came back at 18.1; decided to decrease dose to 500mg Q24h; predicted AUC is only 301mg/L but will reassess after two doses. Next level to be drawn 02/10/22 @0700
[2022-02-08 08:02] LABS: Anion Gap 15 (12-20); Carbon Dioxide 23 mmol/L (22-29); Chloride 102 mmol/L (96-108); Potassium 4.5 mmol/L (3.3-5.1); Sodium 135 mmol/L (135-145)
[2022-02-08] MEDS: 0.9 % Sodium Chloride Flush 3 ML SYRINGE IVFLUSH ×2 (08:25→14:30)
[2022-02-08] MEDS: HYDROmorphone HCl 1 MG/ML SYRINGE IVPUSH ×3 (08:25→21:29)
[2022-02-08] MEDS: Enoxaparin Sodium 30 MG/0.3 ML SYRINGE SUBCUT (08:26)
[2022-02-08] MEDS: amLODIPine Besylate 5 MG TABLET PO ×2 (08:27→20:06)
[2022-02-08] MEDS: Metoprolol Succinate ER 100 MG TAB.ER.24H PO (08:27)
[2022-02-08] MEDS: vancomycin HCL 500 MG in 0.9 % Sodium Chloride 100 ML 110 MG IV (08:27)
[2022-02-08] MEDS: hydrALAZINE HCl 50 MG TABLET PO ×3 (08:27→20:06)
[2022-02-08] MEDS: Sertraline HCL 50 MG TABLET PO (08:27)
[2022-02-08] MEDS: Atorvastatin Calcium 80 MG TABLET PO (08:27)
[2022-02-08 08:55] LABS: B Type Natriuretic Peptide 806 pg/mL (<100)
--- NOTE | 2022-02-08 10:34 | HO.VASCPN ---
Subjective Subjective Date of Service: 02/08/22 Patient reports: still having pain and shortness of breath Interval history: Very pleasant 66-year-old gentleman postop day 2 status post left transmetatarsal amputation. He is doing well in terms of his left foot. Pain appears to be a little better controlled. This morning when I examined him he was short of breath. He was on oxygen via nasal cannula and still somewhat uncomfortable. Now for post up follow-up. Physical Exam Vital Signs: Vital Signs: Last Vital Signs Temp 98.7 F 02/08/22 08:00 Pulse 93 02/08/22 08:00 Resp 18 02/08/22 08:00 BP 166/77 H 02/08/22 08:00 Pulse Ox 92 02/08/22 08:00 O2 Del Method 02/08/22 08:00 O2 Flow Rate 2 02/08/22 08:00 BMI result Body Mass Index 28.5 Const: General: cooperative, healthy appearing and no acute distress Orientation/consciousness: oriented to person, oriented to place and oriented to time HEENT: Head: Yes normal to inspection Neck: Carotids: no bruits Resp: Effort & Inspection: decreased respiratory effort Cardio: Rate: regular rate Heart sounds: S1 normal heart sound present and S2 normal heart sound present GI: Inspection: Yes normal to inspection Skin: Other: Left foot amp site incision healing well there is a dark in central portion General skin exam: no rashes or lesions noted Wounds: no wounds Neuro: General: oriented to person, oriented to place, oriented to time and CN's II-XI intact bilaterally Extrem: General: Yes normal to inspection, Yes full ROM and Yes no clubbing, cyanosis or edema Psych: Appearance: grossly normal and well kempt Speech and movement: Normal speech and movement present Affect: normal affect Progress Note: A&P Assessment and plan (1) PAD (peripheral artery disease): Status: Acute Assessment and Plan: In short patient is status post transmetatarsal amputation. Central portion of amp site is slightly dark in but I do believe it is a reasonably good take for the flap. Will continue with local wound care. More concerning is is respiratory distress. Hospitalist team was notified about this and they will obtain Cardiology consult. In addition x-ray is demonstrating right upper lobe patchy infiltrate. This may need to be treated as well. We will peripherally follow with you. Thank you for allowing us to assist in his care. Time Spent With Patient Time: Total time spent is greater than 50% in coordination of care (as documented) at patient's floor/unit and/or counseling patient: Procedures Date of Service Date of Service: 02/08/22 Quality Stroke Does the patient have a stroke diagnosis?: No VTE Prior VTE?: No VTE Risk Level:: Medical - moderate - high VTE Device Contraindication: Treatment Not Indicated VTE Drug Contraindication: N/A - Med Ordered
[2022-02-08 11:30] LABS: Adenovirus PCR Not Detected (Not Detect.); Bordetella parapertussis PCR Not Detected (Not Detect.); Bordetella pertussis PCR Not Detected (Not Detect.); Chlamydia pneumoniae PCR Not Detected (Not Detect.); Coronavirus 229E PCR Not Detected (Not Detect.); Coronavirus HKU1 PCR Not Detected (Not Detect.); Coronavirus NL63 PCR Not Detected (Not Detect.); Coronavirus OC43 PCR Not Detected (Not Detect.); Human metapneumovirus PCR Not Detected (Not Detect.); Influenza A PCR Not Detected (Not Detect.); Influenza B PCR Not Detected (Not Detect.); Mycoplasma pneumoniae PCR Not Detected (Not Detect.); Parainfluenza 1 PCR Not Detected (Not Detect.); Parainfluenza 2 PCR Not Detected (Not Detect.); Parainfluenza 3 PCR Not Detected (Not Detect.); Parainfluenza 4 PCR Not Detected (Not Detect.); RSV PCR Not Detected (Not Detect.); Rhino/Enterovirus PCR Not Detected (Not Detect.); SARS-CoV-2 PCR Not Detected (Not Detect.)
[2022-02-08 12:22] LABS: MRSA Nasal PCR NEGATIVE (Negative); SA Nasal PCR NEGATIVE (Negative)
[2022-02-08 12:24] LABS: Glucose, Whole Blood 276 mg/dL (60-115)
[2022-02-08] MEDS: Insulin Lispro 100 UNIT/ML 3 ML VIAL SUBCUT ×2 (12:25→22:32)
--- NOTE | 2022-02-08 12:54 | P.CONCA_ITS ---
History of Present Illness History of Present Illness Date of Service: 02/08/22 Requesting physician: Juliocesar Vu Chief complaint: CHF Narrative: 66-year-old gentleman with background history of diabetes, hypertension, hyperlipidemia, kidney disease and previous right transmetatarsal amputation who presented on February 02 to [facility] with increased redness swelling and warmth of the left foot amputation site. He has been followed by vascular surgery here. He was on antibiotics. We have been asked to see him for congestive heart failure. He was noticed to be hypoxic and there was some concern for aspiration based on chart review. Chest x-ray showed concern for aspiration pneumonia versus congestive heart failure. Patient is denying any significant shortness of breath. He is lying flat and is undergoing an echocardiogram. Laying flat he is appearing short of breath though. He has mild edema. He is denying chest pain otherwise. ON LICENSE OF [facility] Past Medical History Medical History (Updated 02/07/22 @ 14:47 by Juliocesar Vu MD) Diabetes High cholesterol HTN (hypertension) Hyperlipidemia associated with type 2 diabetes mellitus Kidney disease Type 2 diabetes mellitus Family History Family history: reviewed and not pertinent Surgical History Surgical History (Updated 02/06/22 @ 09:36 by Kita Medina RN) H/O shoulder surgery History of amputation of right forefoot Hx of amputation Social History Social History Household Members: None Housing: Apartment Do you presently have visiting nurse or other home services: Yes Alcohol intake: current Alcohol intake frequency: holidays/special occasions only Alcohol type: beer Patient Tobacco Use Status: Former Tobacco user Quit Date: >20yr ago Tobacco use type: Cigarette Substance Use Type: Crack/Cocaine Last Used Substance: Days (ago) Last Used Substance Other:: 02/01/22. States before this episode last use was 5 years ago Advance Directives Date on File: 02/02/22 service: No Current occupational status: retired Meds Allergies Allergy/AdvReac Type Severity Reaction Status Date / Time No Known Allergies Allergy Verified 01/24/22 06:12 [No Known Allergies*] Active Medications: Current Medications Albuterol/Ipratropium (Albuterol/Iprat 2.5/0.5mg 3 Ml Ampul.Neb) 3 ml INHALE RQ4H WHILE AWAKE [facility] Last Admin: 02/08/22 11:23 Dose: 3 ml Amlodipine Besylate (Amlodipine Besylate 5 Mg Tablet) 5 mg PO BID [facility]; Protocol Last Admin: 02/08/22 08:27 Dose: 5 mg Atorvastatin Calcium (Atorvastatin Calcium 80 Mg Tablet) 80 mg PO DAILY [facility] Last Admin: 02/08/22 08:27 Dose: 80 mg Dextrose (Dextrose 50 % 25 Gm/50 Ml Syringe) 25 gm IVPUSH Q15M PRN PRN Reason: per Hypoglycemia Standing Ord. Last Admin: 02/06/22 07:35 Dose: 25 gm Docusate Sodium (Docusate Sodium 100 Mg Capsule) 100 mg PO BEDTIME [facility] Last Admin: 02/07/22 21:44 Dose: 100 mg Enoxaparin Sodium (Enoxaparin Sodium 30 Mg/0.3 Ml Syringe) 30 mg SUBCUT Q24H [facility] Last Admin: 02/08/22 08:26 Dose: 30 mg Fluticasone Propionate (Fluticasone Propionate Nasal 16 Gm [place]) 2 spray NOSTRIL-B DAILY PRN PRN Reason: Nasal Congestion Furosemide (Furosemide 40 Mg/4 Ml Vial) 40 mg IVPUSH Q12H [facility]; Protocol Last Admin: 02/08/22 05:56 Dose: 40 mg Hydralazine HCl (Hydralazine Hcl 50 Mg Tablet) 50 mg PO TID [facility]; Protocol Last Admin: 02/08/22 08:27 Dose: 50 mg Hydromorphone HCl (Hydromorphone Hcl 1 Mg/Ml Syringe) 1 mg IVPUSH Q3H PRN; Protocol PRN Reason: Pain, Severe (Pain Scale 7-10) Last Admin: 02/08/22 12:25 Dose: 1 mg Piperacillin Sod/Tazobactam (Sod 3.375 gm/ Sodium Chloride) 50 mls @ 100 mls/hr IV Q6H [facility] Last Admin: 02/08/22 12:26 Dose: 100 mls/hr Vancomycin HCl 500 mg/ Sodium (Chloride) 110 mls @ 110 mls/hr IV Q24H [facility] Last Infusion: 02/08/22 09:59 Dose: Infused Insulin Glargine (Insulin Glargine,Hum.Rec.Anlog 100 Unit/Ml 10 Ml Vial) 18 unit SUBCUT BEDTIME [facility] Last Admin: 02/05/22 20:36 Dose: 18 unit Insulin Human Lispro (Insulin Lispro 100 Unit/Ml 3 Ml Vial) 0 unit SUBCUT QIDACHS [facility]; Protocol Last Admin: 02/08/22 12:25 Dose: 6 unit Losartan Potassium (Losartan Potassium 50 Mg Tablet) 50 mg PO DAILY [facility]; Protocol Last Admin: 02/05/22 09:01 Dose: 50 mg Metoprolol Succinate (Metoprolol Succinate Er 100 Mg Tab.Er.24h) 100 mg PO DAILY [facility]; Protocol Last Admin: 02/08/22 08:27 Dose: 100 mg Ondansetron HCl (Ondansetron Hcl 4 Mg/2 Ml Vial) 4 mg IVPUSH ONCE PRN PRN Reason: Nausea and Vomiting Oxycodone HCl (Oxycodone Hcl Immed Release 5 Mg Tablet) 5 mg PO Q8H PRN PRN Reason: Pain, Moderate (Pain Scale 4-6 Last Admin: 02/05/22 14:35 Dose: 5 mg Oxycodone HCl (Oxycodone Hcl Immed Release 5 Mg Tablet) 10 mg PO Q6H PRN PRN Reason: Pain, Moderate (Pain Scale 4-6 Last Admin: 02/08/22 05:55 Dose: 10 mg Oxycodone HCl (Oxycodone Hcl Immed Release 5 Mg Tablet) 5 mg PO ONCE PRN PRN Reason: Pain, Moderate (Pain Scale 4-6 Pharmacy Consult (Consult Rx Vancomycin Dosing) 1 each MISCELLANE DAILY PRN PRN Reason: Consult order Pharmacy Consult (Consult Rx Perform Med Rec) 1 each MISCELLANE ONCE PRN PRN Reason: Consult order Sertraline HCl (Sertraline Hcl 50 Mg Tablet) 50 mg PO DAILY [facility] Last Admin: 02/08/22 08:27 Dose: 50 mg Sitagliptin Phosphate (Sitagliptin Phosphate 100 Mg Tablet) 100 mg PO DAILY [facility] Last Admin: 02/05/22 09:01 Dose: 100 mg Sodium Chloride (0.9 % Sodium Chloride Flush 3 Ml Syringe) [facility] Last Admin: 02/08/22 08:25 Dose: 3 ml Tamsulosin HCl (Tamsulosin Hcl 0.4 Mg Capsule) 0.4 mg PO BEDTIME [facility] Last Admin: 02/07/22 21:44 Dose: 0.4 mg Home Medications Medication Instructions Recorded Confirmed Last Taken Type atorvastatin 80 mg tablet 80 mg PO DAILY 04/27/21 02/02/22 02/01/22 History fluticasone propionate 50 2 spray intranasal QAM PRN Nasal 04/27/21 02/02/22 02/01/22 History mcg/actuation nasal Congestion spray,suspension furosemide 40 mg tablet 40 mg PO QAM 04/27/21 02/02/22 02/01/22 History glipizide 10 mg tablet 20 mg PO BID 04/27/21 02/02/22 02/01/22 History losartan 50 mg tablet 50 mg PO QAM 04/27/21 02/02/22 02/01/22 History metformin 1,000 mg tablet 1,000 mg PO BID 04/27/21 02/02/22 02/01/22 History metoprolol succinate 100 mg 100 mg PO DAILY 04/27/21 02/02/22 02/01/22 History tablet,extended release 24 hr sertraline 50 mg tablet 50 mg PO DAILY 04/27/21 02/02/22 02/01/22 History sitagliptin phosphate 100 mg 100 mg PO DAILY 04/27/21 02/02/22 02/01/22 History tablet (Januvia) povidone-iodine 10 % topical See Rx Instructions .Route .COMPLEX 12/28/21 02/02/22 02/01/22 History solution insulin degludec 100 unit/mL (3 25 unit subcut QPM 01/03/22 02/02/22 02/01/22 History mL) subcutaneous pen (Tresiba FlexTouch U-100 insulin) Physical Exam Vital Signs: Vital Signs: Last Vital Signs Temp 98.7 F 02/08/22 08:00 Pulse 82 02/08/22 11:24 Resp 17 02/08/22 11:24 BP 166/77 H 02/08/22 08:00 Pulse Ox 92 02/08/22 08:00 O2 Del Method 02/08/22 08:00 O2 Flow Rate 2 02/08/22 08:00 BMI result Body Mass Index 28.5 GENERAL APPEARANCE: in no acute distress, pleasant. NECK: no carotid bruit, positive jugular venous distention. SKIN: no suspicious lesions, warm and dry. HEART: no murmurs, regular rate and rhythm. LUNGS: clear to auscultation bilaterally. ABDOMEN: soft, nontender. EXTREMITIES: + edema. Right transmetatarsal amputation previously. Left foot amputation and wound is dressed currently. PERIPHERAL PULSES: equal. NEUROLOGIC: No gross deficits, AAO X 3 Objective Labs and Meds Result diagrams: 02/08/22 07:12 02/08/22 07:12 Lab results: Laboratory Results - last 24 hr 02/07/22 02/07/22 02/07/22 05:23 15:59 19:37 WBC RBC Hgb Hct MCV MCH MCHC RDW Plt Count MPV Absolute Nucleated RBC Nucleated RBC % (auto) Sodium Potassium Chloride Carbon Dioxide Anion Gap BUN Creatinine Estim Creat Clear Calc Estimated GFR POC Glucose 237 H 138 H Random Glucose Calcium B-Natriuretic Peptide Procalcitonin 0.17 Nasal Screen MRSA (PCR) Nasal S. aureus Screen Nasal MRSA/S.aureus Interp Random Vancomycin Respiratory Panel [place] Adenovirus (Rapid PCR) B.pert (TEM-PCR) B.parapertussis DNA PCR C. pneumoniae DNA (PCR) Coronavirus OC43 (PCR) Coronavirus HKU1 (PCR) Coronavirus 229E (PCR) Coronavirus NL63 (PCR) Human Metapneumovir PCR Influenza A (RT-PCR) Influenza B (RT-PCR) M. pneumoniae (PCR) Parainfluenza 1 (PCR) Parainfluenza 2 (PCR) Parainfluenza 3 (PCR) Parainfluenza 4 (PCR) RSV (PCR) Entero/Rhino (PCR) SARS-CoV-2 RNA (RT-PCR) 02/07/22 02/07/22 02/08/22 19:50 19:50 07:12 WBC RBC Hgb Hct MCV MCH MCHC RDW Plt Count MPV Absolute Nucleated RBC Nucleated RBC % (auto) Sodium Potassium Chloride Carbon Dioxide Anion Gap BUN Creatinine 1.79 H Estim Creat Clear Calc 48.6 Estimated GFR 38 POC Glucose Random Glucose Calcium B-Natriuretic Peptide Procalcitonin Nasal Screen MRSA (PCR) NEGATIVE Nasal S. aureus Screen NEGATIVE Nasal MRSA/S.aureus Interp SEE NOTE Random Vancomycin Respiratory Panel [place] See Note Adenovirus (Rapid PCR) Not Detected B.pert (TEM-PCR) Not Detected B.parapertussis DNA PCR Not Detected C. pneumoniae DNA (PCR) Not Detected Coronavirus OC43 (PCR) Not Detected Coronavirus HKU1 (PCR) Not Detected Coronavirus 229E (PCR) Not Detected Coronavirus NL63 (PCR) Not Detected Human Metapneumovir PCR Not Detected Influenza A (RT-PCR) Not Detected Influenza B (RT-PCR) Not Detected M. pneumoniae (PCR) Not Detected Parainfluenza 1 (PCR) Not Detected Parainfluenza 2 (PCR) Not Detected Parainfluenza 3 (PCR) Not Detected Parainfluenza 4 (PCR) Not Detected RSV (PCR) Not Detected Entero/Rhino (PCR) Not Detected SARS-CoV-2 RNA (RT-PCR) Not Detected 02/08/22 02/08/22 02/08/22 07:12 07:12 07:12 WBC 15.1 H RBC 3.00 L Hgb 8.8 L Hct 27.7 L MCV 92.3 MCH 29.3 MCHC 31.8 RDW 14.1 Plt Count 346 MPV 9.5 Absolute Nucleated RBC 0.000 Nucleated RBC % (auto) 0.0 Sodium 135 Potassium 4.5 Chloride 102 Carbon Dioxide 23 Anion Gap 15 BUN 29 H Creatinine 1.77 H Estim Creat Clear Calc 49.1 Estimated GFR 39 POC Glucose Random Glucose 185 H Calcium 8.5 D B-Natriuretic Peptide Procalcitonin Nasal Screen MRSA (PCR) Nasal S. aureus Screen Nasal MRSA/S.aureus Interp Random Vancomycin 18.1 Respiratory Panel [place] Adenovirus (Rapid PCR) B.pert (TEM-PCR) B.parapertussis DNA PCR C. pneumoniae DNA (PCR) Coronavirus OC43 (PCR) Coronavirus HKU1 (PCR) Coronavirus 229E (PCR) Coronavirus NL63 (PCR) Human Metapneumovir PCR Influenza A (RT-PCR) Influenza B (RT-PCR) M. pneumoniae (PCR) Parainfluenza 1 (PCR) Parainfluenza 2 (PCR) Parainfluenza 3 (PCR) Parainfluenza 4 (PCR) RSV (PCR) Entero/Rhino (PCR) SARS-CoV-2 RNA (RT-PCR) 02/08/22 02/08/22 02/08/22 07:12 07:25 12:17 WBC RBC Hgb Hct MCV MCH MCHC RDW Plt Count MPV Absolute Nucleated RBC Nucleated RBC % (auto) Sodium Potassium Chloride Carbon Dioxide Anion Gap BUN Creatinine Estim Creat Clear Calc Estimated GFR POC Glucose 182 H 276 H Random Glucose Calcium B-Natriuretic Peptide 806 H Procalcitonin Nasal Screen MRSA (PCR) Nasal S. aureus Screen Nasal MRSA/S.aureus Interp Random Vancomycin Respiratory Panel [place] Adenovirus (Rapid PCR) B.pert (TEM-PCR) B.parapertussis DNA PCR C. pneumoniae DNA (PCR) Coronavirus OC43 (PCR) Coronavirus HKU1 (PCR) Coronavirus 229E (PCR) Coronavirus NL63 (PCR) Human Metapneumovir PCR Influenza A (RT-PCR) Influenza B (RT-PCR) M. pneumoniae (PCR) Parainfluenza 1 (PCR) Parainfluenza 2 (PCR) Parainfluenza 3 (PCR) Parainfluenza 4 (PCR) RSV (PCR) Entero/Rhino (PCR) SARS-CoV-2 RNA (RT-PCR) Imaging Radiologist's impression: Impressions Chest X-Ray 02/07/22 12:55 IMPRESSION: 1. New patchy opacity right upper lobe and left parahilar region of lingular segment. Suspect infiltrate. 2. Mild increased pulmonary vascularity question mild congestion. Assessment and Plan (1) CHF (congestive heart failure): Status: Acute Plan [age] year gentleman with complex cardiovascular issues as well as peripheral vascular disease who is admitted after amputation and cellulitis and the left foot amputation site. Was noticed to be hypoxic and chest x-ray pointed to her aspiration versus congestive heart failure. Examining him he has some shortness of breath and peripheral edema. He has mild JVD. Overall he is feeling better. I would continue the Lasix currently. Blood pressure is elevated and I think his losartan can be increased to 100 mg once a day. We will follow along with you. I will review the echocardiogram performed today. Thank you for allowing me to participate in the care of your patient. Please feel free to contact me if you have any questions. Procedures Date of Service Date of Service: 02/08/22
--- NOTE | 2022-02-08 13:58 | P.PNIM_ITS ---
Subjective Subjective Date of Service: 02/07/22 Interval History: hypoglycemia,dm foot, possible CHF, toxic metabolic encephalopathy. Vital reviewed from02/07/22 Review of Systems Denies chest pain or ? nausea vomiting or diarrhea or fever chills still short of breath specially exertion Physical Exam Vital Signs: Vital Signs: Last Vital Signs BMI result Appearance: Awake alert, seems at his baseline now. cvs: rrr, [id number] , no murmur res: clear to auscultation ,no rhonchii or wheezing abd: no rebound or guarding ,nt, bs present. ext pulses present , no cyanosis . left transmetatarsal amputation, has lower extremities edema neuro: axo3 , nonfocal. Objective Data Active Medications Albuterol/Ipratropium (Albuterol/Iprat 2.5/0.5mg 3 Ml Ampul.Neb) 3 ml INHALE RQ4H WHILE AWAKE [facility] Last Admin: 02/08/22 11:23 Dose: 3 ml Documented By: AMY Amlodipine Besylate (Amlodipine Besylate 5 Mg Tablet) 5 mg PO BID [facility]; Protocol Last Admin: 02/08/22 08:27 Dose: 5 mg Documented By: KATHY Atorvastatin Calcium (Atorvastatin Calcium 80 Mg Tablet) 80 mg PO DAILY [facility] Last Admin: 02/08/22 08:27 Dose: 80 mg Documented By: KATHY Dextrose (Dextrose 50 % 25 Gm/50 Ml Syringe) 25 gm IVPUSH Q15M PRN PRN Reason: per Hypoglycemia Standing Ord. Last Admin: 02/06/22 07:35 Dose: 25 gm Documented By: DENZEL Docusate Sodium (Docusate Sodium 100 Mg Capsule) 100 mg PO BEDTIME [facility] Last Admin: 02/07/22 21:44 Dose: 100 mg Documented By: APRIL Enoxaparin Sodium (Enoxaparin Sodium 30 Mg/0.3 Ml Syringe) 30 mg SUBCUT Q24H [facility] Last Admin: 02/08/22 08:26 Dose: 30 mg Documented By: KATHY Fluticasone Propionate (Fluticasone Propionate Nasal 16 Gm [place]) 2 spray NOSTRIL-B DAILY PRN PRN Reason: Nasal Congestion Furosemide (Furosemide 40 Mg/4 Ml Vial) 40 mg IVPUSH Q12H [facility]; Protocol Last Admin: 02/08/22 05:56 Dose: 40 mg Documented By: APRIL Hydralazine HCl (Hydralazine Hcl 50 Mg Tablet) 50 mg PO TID [facility]; Protocol Last Admin: 02/08/22 08:27 Dose: 50 mg Documented By: KATHY Hydromorphone HCl (Hydromorphone Hcl 1 Mg/Ml Syringe) 1 mg IVPUSH Q3H PRN; Protocol PRN Reason: Pain, Severe (Pain Scale 7-10) Last Admin: 02/08/22 12:25 Dose: 1 mg Documented By: KATHY Piperacillin Sod/Tazobactam (Sod 3.375 gm/ Sodium Chloride) 50 mls @ 100 mls/hr IV Q6H [facility] Last Infusion: 02/08/22 13:14 Dose: 0 mls/hr Documented By: KATHY Vancomycin HCl 500 mg/ Sodium (Chloride) 110 mls @ 110 mls/hr IV Q24H [facility] Last Infusion: 02/08/22 09:59 Dose: 0 mls/hr Documented By: KATHY Insulin Glargine (Insulin Glargine,Hum.Rec.Anlog 100 Unit/Ml 10 Ml Vial) 18 unit SUBCUT BEDTIME [facility] Last Admin: 02/05/22 20:36 Dose: 18 unit Documented By: ARTEMIO Insulin Human Lispro (Insulin Lispro 100 Unit/Ml 3 Ml Vial) 0 unit SUBCUT QIDACHS [facility]; Protocol Last Admin: 02/08/22 12:25 Dose: 6 unit Documented By: KATHY Losartan Potassium (Losartan Potassium 50 Mg Tablet) 50 mg PO DAILY [facility]; Protocol Last Admin: 02/05/22 09:01 Dose: 50 mg Documented By: DENZEL Metoprolol Succinate (Metoprolol Succinate Er 100 Mg Tab.Er.24h) 100 mg PO DAILY [facility]; Protocol Last Admin: 02/08/22 08:27 Dose: 100 mg Documented By: KATHY Ondansetron HCl (Ondansetron Hcl 4 Mg/2 Ml Vial) 4 mg IVPUSH ONCE PRN PRN Reason: Nausea and Vomiting Oxycodone HCl (Oxycodone Hcl Immed Release 5 Mg Tablet) 5 mg PO Q8H PRN PRN Reason: Pain, Moderate (Pain Scale 4-6 Last Admin: 02/05/22 14:35 Dose: 5 mg Documented By: DENZEL Oxycodone HCl (Oxycodone Hcl Immed Release 5 Mg Tablet) 10 mg PO Q6H PRN PRN Reason: Pain, Moderate (Pain Scale 4-6 Last Admin: 02/08/22 05:55 Dose: 10 mg Documented By: APRIL Oxycodone HCl (Oxycodone Hcl Immed Release 5 Mg Tablet) 5 mg PO ONCE PRN PRN Reason: Pain, Moderate (Pain Scale 4-6 Pharmacy Consult (Consult Rx Vancomycin Dosing) 1 each MISCELLANE DAILY PRN PRN Reason: Consult order Pharmacy Consult (Consult Rx Perform Med Rec) 1 each MISCELLANE ONCE PRN PRN Reason: Consult order Sertraline HCl (Sertraline Hcl 50 Mg Tablet) 50 mg PO DAILY [facility] Last Admin: 02/08/22 08:27 Dose: 50 mg Documented By: KATHY Sitagliptin Phosphate (Sitagliptin Phosphate 100 Mg Tablet) 100 mg PO DAILY [facility] Last Admin: 02/05/22 09:01 Dose: 100 mg Documented By: DENZEL Sodium Chloride (0.9 % Sodium Chloride Flush 3 Ml Syringe) 3 ml IVFLUSH QSHIFT [facility] Last Admin: 02/08/22 08:25 Dose: 3 ml Documented By: KATHY Tamsulosin HCl (Tamsulosin Hcl 0.4 Mg Capsule) 0.4 mg PO BEDTIME [facility] Last Admin: 02/07/22 21:44 Dose: 0.4 mg Documented By: APRIL Labs CBC & Chem 7: 02/08/22 07:12 02/08/22 07:12 Labs: Laboratory Results - last 24 hr 02/07/22 02/07/22 02/07/22 05:23 15:59 19:37 MCV MCH MCHC RDW Plt Count MPV Absolute Nucleated RBC Nucleated RBC % (auto) Anion Gap Estim Creat Clear Calc Estimated GFR POC Glucose 237 H 138 H Random Glucose Calcium B-Natriuretic Peptide Procalcitonin 0.17 Nasal Screen MRSA (PCR) Nasal S. aureus Screen Nasal MRSA/S.aureus Interp Random Vancomycin Respiratory Panel [place] Adenovirus (Rapid PCR) B.pert (TEM-PCR) B.parapertussis DNA PCR C. pneumoniae DNA (PCR) Coronavirus OC43 (PCR) Coronavirus HKU1 (PCR) Coronavirus 229E (PCR) Coronavirus NL63 (PCR) Human Metapneumovir PCR Influenza A (RT-PCR) Influenza B (RT-PCR) M. pneumoniae (PCR) Parainfluenza 1 (PCR) Parainfluenza 2 (PCR) Parainfluenza 3 (PCR) Parainfluenza 4 (PCR) RSV (PCR) Entero/Rhino (PCR) SARS-CoV-2 RNA (RT-PCR) 02/07/22 02/07/22 02/08/22 19:50 19:50 07:12 MCV MCH MCHC RDW Plt Count MPV Absolute Nucleated RBC Nucleated RBC % (auto) Anion Gap Estim Creat Clear Calc 48.6 Estimated GFR 38 POC Glucose Random Glucose Calcium B-Natriuretic Peptide Procalcitonin Nasal Screen MRSA (PCR) NEGATIVE Nasal S. aureus Screen NEGATIVE Nasal MRSA/S.aureus Interp SEE NOTE Random Vancomycin Respiratory Panel [place] See Note Adenovirus (Rapid PCR) Not Detected B.pert (TEM-PCR) Not Detected B.parapertussis DNA PCR Not Detected C. pneumoniae DNA (PCR) Not Detected Coronavirus OC43 (PCR) Not Detected Coronavirus HKU1 (PCR) Not Detected Coronavirus 229E (PCR) Not Detected Coronavirus NL63 (PCR) Not Detected Human Metapneumovir PCR Not Detected Influenza A (RT-PCR) Not Detected Influenza B (RT-PCR) Not Detected M. pneumoniae (PCR) Not Detected Parainfluenza 1 (PCR) Not Detected Parainfluenza 2 (PCR) Not Detected Parainfluenza 3 (PCR) Not Detected Parainfluenza 4 (PCR) Not Detected RSV (PCR) Not Detected Entero/Rhino (PCR) Not Detected SARS-CoV-2 RNA (RT-PCR) Not Detected 02/08/22 02/08/22 02/08/22 07:12 07:12 07:12 MCV 92.3 MCH 29.3 MCHC 31.8 RDW 14.1 Plt Count 346 MPV 9.5 Absolute Nucleated RBC 0.000 Nucleated RBC % (auto) 0.0 Anion Gap 15 Estim Creat Clear Calc 49.1 Estimated GFR 39 POC Glucose Random Glucose 185 H Calcium 8.5 D B-Natriuretic Peptide Procalcitonin Nasal Screen MRSA (PCR) Nasal S. aureus Screen Nasal MRSA/S.aureus Interp Random Vancomycin 18.1 Respiratory Panel [place] Adenovirus (Rapid PCR) B.pert (TEM-PCR) B.parapertussis DNA PCR C. pneumoniae DNA (PCR) Coronavirus OC43 (PCR) Coronavirus HKU1 (PCR) Coronavirus 229E (PCR) Coronavirus NL63 (PCR) Human Metapneumovir PCR Influenza A (RT-PCR) Influenza B (RT-PCR) M. pneumoniae (PCR) Parainfluenza 1 (PCR) Parainfluenza 2 (PCR) Parainfluenza 3 (PCR) Parainfluenza 4 (PCR) RSV (PCR) Entero/Rhino (PCR) SARS-CoV-2 RNA (RT-PCR) 02/08/22 02/08/22 02/08/22 07:12 07:25 12:17 MCV MCH MCHC RDW Plt Count MPV Absolute Nucleated RBC Nucleated RBC % (auto) Anion Gap Estim Creat Clear Calc Estimated GFR POC Glucose 182 H 276 H Random Glucose Calcium B-Natriuretic Peptide 806 H Procalcitonin Nasal Screen MRSA (PCR) Nasal S. aureus Screen Nasal MRSA/S.aureus Interp Random Vancomycin Respiratory Panel [place] Adenovirus (Rapid PCR) B.pert (TEM-PCR) B.parapertussis DNA PCR C. pneumoniae DNA (PCR) Coronavirus OC43 (PCR) Coronavirus HKU1 (PCR) Coronavirus 229E (PCR) Coronavirus NL63 (PCR) Human Metapneumovir PCR Influenza A (RT-PCR) Influenza B (RT-PCR) M. pneumoniae (PCR) Parainfluenza 1 (PCR) Parainfluenza 2 (PCR) Parainfluenza 3 (PCR) Parainfluenza 4 (PCR) RSV (PCR) Entero/Rhino (PCR) SARS-CoV-2 RNA (RT-PCR) Microbiology Microbiology Results: Microbiology 02/07/22 19:50 Gram Stain - Final Sputum - Expectorated Sputum Culture - Final Assessment and Plan (1) CKD stage 3 due to type 2 diabetes mellitus: Status: Acute (2) Osteomyelitis: Status: Acute (3) Acute hypoxemic respiratory failure: Status: Acute (4) CHF (congestive heart failure): Status: Acute (5) Pneumonia: Status: Acute (6) Toxic metabolic encephalopathy: Status: Acute Plan 66-year-old insulin dependent male presents to hospital with increased redness swelling and warmth 2 left foot amputation site and lower leg.? On 01/25/22 he underwent left great toe amputation by Dr. Topete; subsequent postoperative course unremarkable.? He was discharged home? 01/29/22 on an oral course of Keflex.? Returns today with increased pain erythema and warmth left lower extremity.? Has remained tolerant of therapy however sugars have been bottoming in a.m. secondary to lack of p.m. snacks.? Dr. Topete to see today... Acute hypoxemic respiratory failure possible multifactorial-secondary to CHF exacerbation, etiology unclear, echo pending. less likely penumonia low procalcitonin levels Patient received fluids while n p.o. for surgery chest x-ray-? possible aspiration pneumonia component/CHF bnp 800's range started on lasix iv 40 mg bid, antibiotics,Oxygen support daily weight, input and output monitor. acute osteomyelitis of left foot/Diabetic foot infection (left) intially received vancomycin/Zosyn (5)-Status post vascular surgery -trans met amputation left side. d/w vascular and ID-s/ptrans met amputation left side. switched to po antibiotics doxy/augmentin day1. toxic metabolic encephalopathy secondary to possible anaesthesia, patient is improving mental status improved to baseline. DM II (poorly control) -continue long-acting insulin (ask Pharmacy to convert Tresiba to Lantus) -lispro correctional scale -will decrease glipizide p.m. dose to 10 mg and follow -ADA diet -adjust therapies as indicated CKD 3 with hyperkalemia -potassium normalized -follow renals/divalents HTN (uncontrolled) -restarted outpatient regimen. ..? Remains poorly control continue amlodipine ,hydralazine ,losaran -adjust as indicated Full code Lovenox need of ongoing hospitalization : acute hypoxemic respiratory failure multifactorial-secondary to CHF exacerbation . Quality Stroke Does the patient have a stroke diagnosis?: No VTE Prior VTE?: No VTE Risk Level:: Medical - moderate - high VTE Device Contraindication: Treatment Not Indicated VTE Drug Contraindication: N/A - Med Ordered
[2022-02-08] MEDS: Losartan Potassium 25 MG TABLET PO (14:29)
[2022-02-08] MEDS: Doxycycline Monohydrate 100 MG CAPSULE PO ×2 (14:29→20:06)
[2022-02-08] MEDS: Amoxicillin/Potassium Clav 875 MG TABLET PO ×2 (14:29→20:05)
[2022-02-08 15:10] LABS: Procalcitonin 0.24 ng/mL
[2022-02-08 16:34] LABS: Glucose, Whole Blood 199 mg/dL (60-115)
[2022-02-08] MEDS: Docusate Sodium 100 MG CAPSULE PO (20:06)
[2022-02-08] MEDS: Tamsulosin HCL 0.4 MG CAPSULE PO (20:06)
[2022-02-08 21:09] LABS: Glucose, Whole Blood 240 mg/dL (60-115)
[2022-02-08] MEDS: Morphine Sulfate 4 MG/ML CARTRIDGE IVPUSH (22:31)
[2022-02-09] VITALS (8 sets, daily range): BP systolic 182–197; BP diastolic 70–86; PULSE 54–93; RESP 18–20; TEMP 36.6–37.2; O2SAT 92–98; BMI 27.6
[2022-02-09] MEDS: 0.9 % Sodium Chloride Flush 3 ML SYRINGE IVFLUSH ×3 (00:23→12:44)
[2022-02-09] MEDS: oxyCODONE HCl Immed Release 5 MG TABLET 10 MG PO ×3 (04:51→22:04)
[2022-02-09] MEDS: Furosemide 40 MG/4 ML VIAL IVPUSH ×2 (04:52→12:44)
[2022-02-09] MEDS: Albuterol/Iprat 2.5/0.5MG 3 ML AMPUL.NEB INHALE ×4 (07:24→19:30)
[2022-02-09 08:30] LABS: Glucose, Whole Blood 203 mg/dL (60-115)
[2022-02-09] MEDS: Insulin Lispro 100 UNIT/ML 3 ML VIAL SUBCUT ×3 (08:30→21:54)
[2022-02-09] MEDS: Enoxaparin Sodium 30 MG/0.3 ML SYRINGE SUBCUT (08:31)
[2022-02-09] MEDS: Metoprolol Succinate ER 100 MG TAB.ER.24H PO (08:31)
[2022-02-09] MEDS: Doxycycline Monohydrate 100 MG CAPSULE PO ×2 (08:31→21:55)
[2022-02-09] MEDS: Sertraline HCL 50 MG TABLET PO (08:31)
[2022-02-09] MEDS: Atorvastatin Calcium 80 MG TABLET PO (08:31)
[2022-02-09] MEDS: hydrALAZINE HCl 50 MG TABLET PO ×3 (08:31→21:56)
[2022-02-09] MEDS: Amoxicillin/Potassium Clav 875 MG TABLET PO ×2 (08:31→21:55)
[2022-02-09] MEDS: HYDROmorphone HCl 1 MG/ML SYRINGE IVPUSH (08:35)
[2022-02-09] MEDS: amLODIPine Besylate 10 MG TABLET PO ×2 (08:37→21:56)
[2022-02-09 09:05] LABS: Creatinine Clr Calc Pharmacy 47.1; Estimated Glomerular Filt Rate 41
[2022-02-09 09:44] LABS: Anion Gap 16 (12-20); Blood Urea Nitrogen 31 mg/dL (9-16); Calcium 8.4 mg/dL (8.4-10.2); Carbon Dioxide 25 mmol/L (22-29); Chloride 101 mmol/L (96-108); Glucose Random 275 mg/dL (60-115); Potassium 4.3 mmol/L (3.3-5.1); Sodium 138 mmol/L (135-145)
--- NOTE | 2022-02-09 11:51 | PM.PNCARD ---
Subjective Subjective Date of Service: 02/09/22 <ZOHAIB Mercer - Last Filed: 02/09/22 13:08> 02/09/22 <Armando Moody MD - Last Filed: 02/09/22 16:39> Principal diagnosis: CHF, PVD, uncontrolled HTN <ZOHAIB Mercer - Last Filed: 02/09/22 13:08> Interval history: Seen at 1145. Today he is seen while sitting up eating lunch. Tells me that his feet are hurting him, otherwise feels OK. No sob, chest pains, palpitation, dizziness. Has swelling in left lower leg. BP remains elevated. Tele shows SR, rates 80-100. <ZOHAIB Mercer - Last Filed: 02/09/22 13:08> Review of Systems Review of Systems as above <ZOHAIB Mercer - Last Filed: 02/09/22 13:08> Yes all other systems are reviewed and are negative <ZOHAIB Mercer - Last Filed: 02/09/22 13:08> Physical Exam Vital Signs: Last Vital Signs Temp 98.3 F 02/09/22 07:44 Pulse 71 02/09/22 11:33 Resp 18 02/09/22 11:33 BP 197/86 H 02/09/22 07:44 Pulse Ox 95 02/09/22 07:44 O2 Del Method 02/09/22 07:44 O2 Flow Rate 2 02/09/22 07:44 BMI result Body Mass Index 27.6 <ZOHAIB Mercer - Last Filed: 02/09/22 13:08> Const General: cooperative, comfortable and no acute distress <ZOHAIB Mercer - Last Filed: 02/09/22 13:08> Orientation/consciousness: patient oriented x3 <ZOHAIB Mercer Last Filed: 02/09/22 13:08> Neck Neck: Yes normal visual inspection <ZOHAIB Mercer - Last Filed: 02/09/22 13:08> Resp Other: fine rales noted in left base <ZOHAIB Mercer - Last Filed: 02/09/22 13:08> Effort & Inspection: normal respiratory effort <Kasia Voss NPC - Last Filed: 02/09/22 13:08> Auscultation: clear to auscultation bilaterally, no rhonchi and no wheezes <Kasia Voss [facility] - Last Filed: 02/09/22 13:08> Cardio Rate: regular rate <Kasia Shanika [facility] - Last Filed: 02/09/22 13:08> Rhythm: regular rhythm <Kasia Shanika [facility] - Last Filed: 02/09/22 13:08> Heart sounds: S1 normal heart sound present, S2 normal heart sound present, no gallops, no murmurs and no rubs <Kasia Shanika [facility] - Last Filed: 02/09/22 13:08> GI Inspection: Yes normal to inspection <Kasia Voss [facility] - Last Filed: 02/09/22 13:08> Neuro General: patient oriented x3 <Kasia Voss [facility] - Last Filed: 02/09/22 13:08> Extrem Other: Bilateral transmetatarsal amps. Soft pitting edema in left lower leg to level of knee, no edema on right. <Kasia Voss [facility] - Last Filed: 02/09/22 13:08> Psych Appearance: grossly normal <Kasia Voss [facility] - Last Filed: 02/09/22 13:08> Mental Status: mental status grossly normal <Kasia Voss [facility] - Last Filed: 02/09/22 13:08> Speech and movement: Normal speech and movement present <[facility] Last Filed: 02/09/22 13:08> Objective Labs and Meds Result diagrams: : 02/08/22 07:12 02/09/22 08:13 <Kasia Voss [facility] - Last Filed: 02/09/22 13:08> Lab results: Laboratory Results - last 24 hr 02/07/22 02/08/22 02/08/22 19:50 07:12 12:17 Sodium Potassium Chloride Carbon Dioxide Anion Gap BUN Creatinine Estim Creat Clear Calc Estimated GFR POC Glucose 276 H Random Glucose Calcium Procalcitonin 0.24 Nasal Screen MRSA (PCR) NEGATIVE Nasal S. aureus Screen NEGATIVE Nasal MRSA/S.aureus Interp SEE NOTE 02/08/22 02/08/22 02/09/22 16:14 19:53 07:45 Sodium Potassium Chloride Carbon Dioxide Anion Gap BUN Creatinine Estim Creat Clear Calc Estimated GFR POC Glucose 199 H 240 H 203 H Random Glucose Calcium Procalcitonin Nasal Screen MRSA (PCR) Nasal S. aureus Screen Nasal MRSA/S.aureus Interp 02/09/22 02/09/22 08:13 09:07 Sodium 138 Cancelled Potassium 4.3 Cancelled Chloride 101 Cancelled Carbon Dioxide 25 Cancelled Anion Gap 16 Cancelled BUN 31 H Cancelled Creatinine 1.69 H Cancelled Estim Creat Clear Calc 47.1 Cancelled Estimated GFR 41 Cancelled POC Glucose Random Glucose 275 H D Cancelled Calcium 8.4 Cancelled Procalcitonin Nasal Screen MRSA (PCR) Nasal S. aureus Screen Nasal MRSA/S.aureus Interp <ZOHAIB Mercer - Last Filed: 02/09/22 13:08> Progress Note: A&P Assessment and plan (1) CHF (congestive heart failure): Status: Acute <ZOHAIB Mercer - Last Filed: 02/09/22 13:08> Assessment and Plan: Admission for PVD reasons with foot infection and then transmetatarsal amp on left done 02/07/22. Had recieved IV Fluids. Developed increased sob. BNP elevated at 1107 on 02/07. CXR 02/07 shows new patchy opacity right upper lobe and left perihilar region, mild increased pulmonary vascularity, ? mild CHF. Echo 02/08 shows EF 55-60%, elevated filling pressures, mild increase in RV size and decrease in RV systolic function. No prior known CHF. Has multiple cardiac risk factors however nuclear stress test done 01/04/22 shows normal myocardial perfusion imaging. He is being treated for acute HFpEF. He has been on Lasix 40mg IV q 12. Documented fluid balance remains + 5 liters since admit. He reports that breathing is comfortable. Sat 95% on 2 liters. Fine rales noted in left base and soft pitting edema left lower leg to knee. Cr 1.69 today which is similar to prior. Will continue IV lasix today and reevaluate tomorrow. BMP, BNP in am. Ongoing strict I+O monitoring. Close monitoring of electrolytes and kidney function with replacement as warranted. O2 supplement as needed for sat > 90%. <ZOHAIB Mercer - Last Filed: 02/09/22 13:08> (2) Uncontrolled hypertension: Status: Acute <ZOHAIB Mercer - Last Filed: 02/09/22 13:08> Assessment and Plan: BP elevated this admission. Hx of HTN. Renal artery ultrasound done on 01/05/22 shows increased peak systolic velocity on right mid renal artery, ? right renal artery stenosis, normal on left. He is following with vascular. On high dose statin. For BP on Metoprolol xl, Hydralazine, Amlodipine and Losartan. BP this am 197/86, asymptomatic. Losartan dose is being increased by hospitalist. Lasix as above. Can further increase Hydralazine if needed. <ZOHAIB Mercer - Last Filed: 02/09/22 13:08> (3) PAD (peripheral artery disease): Status: Acute <ZOHAIB Mercer - Last Filed: 02/09/22 13:08> Assessment and Plan: Followed by Dr Topete. <ZOHAIB Mercer - Last Filed: 02/09/22 13:08> Assessment and Plan: Patient was seen and examined at bedside. Continues to have peripheral edema as well as elevated neck veins. Lungs are clear to auscultation. Still volume overloaded. Continue IV diuretics for now. We will follow along. Monitor electrolytes closely. <Armando Moody MD - Last Filed: 02/09/22 16:39> Time Spent With Patient Time: Total time spent is greater than 50% in coordination of care (as documented) at patient's floor/unit and/or counseling patient: 22 <ZOHAIB Mercer - Last Filed: 02/09/22 13:08> Progress Note: Quality Stroke Does the patient have a stroke diagnosis?: No <ZOHAIB Mercer - Last Filed: 02/09/22 13:08> Procedures Date of Service Date of Service: 02/09/22 <ZOHAIB Mercer - Last Filed: 02/09/22 13:08>
[2022-02-09 12:12] LABS: Glucose, Whole Blood 238 mg/dL (60-115)
--- NOTE | 2022-02-09 15:04 | MHC.CM.PN ---
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
--- NOTE | 2022-02-09 16:39 | HO.PM.IMPN ---
Subjective Subjective Date of Service: 02/09/22 Interval History: hypoglycemia,dm foot, possible CHF, toxic metabolic encephalopathy. Vital reviewed from02/07/22 Review of Systems Denies chest pain or ? nausea vomiting or diarrhea or fever chills still short of breath specially exertion Physical Exam Vital Signs: Vital Signs: Last Vital Signs Temp 98.7 F 02/09/22 16:00 Pulse 91 02/09/22 16:00 Resp 20 02/09/22 16:00 BP 182/70 H 02/09/22 16:00 Pulse Ox 95 02/09/22 16:00 O2 Del Method 02/09/22 16:00 O2 Flow Rate 2 02/09/22 11:55 BMI result Body Mass Index 27.6 ?Appearance:? Awake alert, seems at his baseline now. cvs: rrr, [id number] , no murmur res: clear to auscultation ,no rhonchii or wheezing abd: no rebound or guarding ,nt, bs present. ext pulses present , no cyanosis . left transmetatarsal amputation, has lower extremities edema neuro: axo3 , nonfocal Objective Data Active Medications Albuterol/Ipratropium (Albuterol/Iprat 2.5/0.5mg 3 Ml Ampul.Neb) 3 ml INHALE RQ4H WHILE AWAKE [facility] Last Admin: 02/09/22 14:17 Dose: 3 ml Documented By: BROOKS Amlodipine Besylate (Amlodipine Besylate 10 Mg Tablet) 10 mg PO BID [facility]; Protocol Last Admin: 02/09/22 08:37 Dose: 10 mg Documented By: ELIZABETH Amoxicillin/Clavulanate Potassium (Amoxicillin/Potassium Clav 875 Mg Tablet) 875 mg PO BID [facility] Last Admin: 02/09/22 08:31 Dose: 875 mg Documented By: ELIZABETH Atorvastatin Calcium (Atorvastatin Calcium 80 Mg Tablet) 80 mg PO DAILY [facility] Last Admin: 02/09/22 08:31 Dose: 80 mg Documented By: ELIZABETH Dextrose (Dextrose 50 % 25 Gm/50 Ml Syringe) 25 gm IVPUSH Q15M PRN PRN Reason: per Hypoglycemia Standing Ord. Last Admin: 02/06/22 07:35 Dose: 25 gm Documented By: DENZEL Docusate Sodium (Docusate Sodium 100 Mg Capsule) 100 mg PO BEDTIME [facility] Last Admin: 02/08/22 20:06 Dose: 100 mg Documented By: KAMRON Doxycycline Monohydrate (Doxycycline Monohydrate 100 Mg Capsule) 100 mg PO BID [facility] Last Admin: 02/09/22 08:31 Dose: 100 mg Documented By: ELIZABETH Enoxaparin Sodium (Enoxaparin Sodium 30 Mg/0.3 Ml Syringe) 30 mg SUBCUT Q24H [facility] Last Admin: 02/09/22 08:31 Dose: 30 mg Documented By: ELIZABETH Fluticasone Propionate (Fluticasone Propionate Nasal 16 Gm [place]) 2 spray NOSTRIL-B DAILY PRN PRN Reason: Nasal Congestion Furosemide (Furosemide 40 Mg/4 Ml Vial) 40 mg IVPUSH Q12H [facility]; Protocol Last Admin: 02/09/22 12:44 Dose: 40 mg Documented By: ELIZABETH Hydralazine HCl (Hydralazine Hcl 50 Mg Tablet) 50 mg PO TID [facility]; Protocol Last Admin: 02/09/22 13:39 Dose: 50 mg Documented By: ELIZABETH Insulin Glargine (Insulin Glargine,Hum.Rec.Anlog 100 Unit/Ml 10 Ml Vial) 18 unit SUBCUT BEDTIME [facility] Last Admin: 02/05/22 20:36 Dose: 18 unit Documented By: ARTEMIO Insulin Human Lispro (Insulin Lispro 100 Unit/Ml 3 Ml Vial) 0 unit SUBCUT QIDACHS [facility]; Protocol Last Admin: 02/09/22 12:43 Dose: 2 unit Documented By: ELIZABETH Losartan Potassium (Losartan Potassium 50 Mg Tablet) 100 mg PO DAILY [facility]; Protocol Metoprolol Succinate (Metoprolol Succinate Er 100 Mg Tab.Er.24h) 100 mg PO DAILY [facility]; Protocol Last Admin: 02/09/22 08:31 Dose: 100 mg Documented By: ELIZABETH Ondansetron HCl (Ondansetron Hcl 4 Mg/2 Ml Vial) 4 mg IVPUSH ONCE PRN PRN Reason: Nausea and Vomiting Oxycodone HCl (Oxycodone Hcl Immed Release 5 Mg Tablet) 5 mg PO Q8H PRN PRN Reason: Pain, Moderate (Pain Scale 4-6 Last Admin: 02/05/22 14:35 Dose: 5 mg Documented By: DENZEL Oxycodone HCl (Oxycodone Hcl Immed Release 5 Mg Tablet) 10 mg PO Q6H PRN PRN Reason: Pain, Moderate (Pain Scale 4-6 Last Admin: 02/09/22 13:38 Dose: 10 mg Documented By: ELIZABETH Oxycodone HCl (Oxycodone Hcl Immed Release 5 Mg Tablet) 5 mg PO ONCE PRN PRN Reason: Pain, Moderate (Pain Scale 4-6 Pharmacy Consult (Consult Rx Vancomycin Dosing) 1 each MISCELLANE DAILY PRN PRN Reason: Consult order Pharmacy Consult (Consult Rx Perform Med Rec) 1 each MISCELLANE ONCE PRN PRN Reason: Consult order Sertraline HCl (Sertraline Hcl 50 Mg Tablet) 50 mg PO DAILY [facility] Last Admin: 02/09/22 08:31 Dose: 50 mg Documented By: ELIZABETH Sitagliptin Phosphate (Sitagliptin Phosphate 100 Mg Tablet) 100 mg PO DAILY [facility] Last Admin: 02/05/22 09:01 Dose: 100 mg Documented By: DENZEL Sodium Chloride (0.9 % Sodium Chloride Flush 3 Ml Syringe) 3 ml IVFLUSH QSHIFT [facility] Last Admin: 02/09/22 12:44 Dose: 3 ml Documented By: ELIZABETH Tamsulosin HCl (Tamsulosin Hcl 0.4 Mg Capsule) 0.4 mg PO BEDTIME [facility] Last Admin: 02/08/22 20:06 Dose: 0.4 mg Documented By: KAMRON Labs CBC & Chem 7: 02/08/22 07:12 02/09/22 08:13 Labs: Laboratory Results - last 24 hr 02/08/22 02/09/22 02/09/22 19:53 07:45 08:13 Anion Gap 16 Estim Creat Clear Calc 47.1 Estimated GFR 41 POC Glucose 240 H 203 H Random Glucose 275 H D Calcium 8.4 02/09/22 02/09/22 09:07 11:59 Anion Gap Cancelled Estim Creat Clear Calc Cancelled Estimated GFR Cancelled POC Glucose 238 H Random Glucose Cancelled Calcium Cancelled Assessment and Plan (1) CKD stage 3 due to type 2 diabetes mellitus: Status: Acute (2) Osteomyelitis: Status: Acute (3) Acute hypoxemic respiratory failure: Status: Acute (4) CHF (congestive heart failure): Status: Acute (5) Pneumonia: Status: Acute (6) Toxic metabolic encephalopathy: Status: Acute Plan 66-year-old insulin dependent male presents to hospital with increased redness swelling and warmth 2 left foot amputation site and lower leg.? On 01/25/22 he underwent left great toe amputation by Dr. Topete; subsequent postoperative course unremarkable.? He was discharged home? 01/29/22 on an oral course of Keflex.? Returns today with increased pain erythema and warmth left lower extremity.? Has remained tolerant of therapy however sugars have been bottoming in a.m. secondary to lack of p.m. snacks.? Dr. Topete to see today... Acute hypoxemic respiratory failure possible multifactorial-secondary to CHF exacerbation, etiology unclear, echo pending. less likely penumonia low procalcitonin levels Patient received fluids while n p.o. for surgery chest x-ray-? possible aspiration pneumonia component/CHF bnp 800's range started on lasix iv 40 mg bid, antibiotics,Oxygen support daily weight, input and output monitor. acute osteomyelitis of left foot/Diabetic foot infection (left) intially received vancomycin/Zosyn (5)-Status post vascular surgery -trans met amputation left side. d/w vascular and ID-s/ptrans met amputation left side. switched to po antibiotics doxy/augmentin day2. toxic metabolic encephalopathy secondary to possible anaesthesia, patient is improving mental status improved to baseline. DM II (poorly control) -continue long-acting insulin (ask Pharmacy to convert Tresiba to Lantus) -lispro correctional scale -will decrease glipizide p.m. dose to 10 mg and follow -ADA diet -adjust therapies as indicated CKD 3 with hyperkalemia -potassium normalized -follow renals/divalents HTN (uncontrolled) -restarted outpatient regimen. ..? Remains poorly control continue amlodipine ,hydralazine ,losaran -adjust as indicated Full code Lovenox need of ongoing hospitalization : acute hypoxemic respiratory failure multifactorial-secondary to CHF exacerbation . Quality Stroke Does the patient have a stroke diagnosis?: No VTE Prior VTE?: No VTE Risk Level:: Medical - moderate - high VTE Device Contraindication: Treatment Not Indicated VTE Drug Contraindication: N/A - Med Ordered
[2022-02-09 16:56] LABS: Glucose, Whole Blood 195 mg/dL (60-115)
[2022-02-09 21:28] LABS: Glucose, Whole Blood 303 mg/dL (60-115)
[2022-02-09] MEDS: Tamsulosin HCL 0.4 MG CAPSULE PO (21:56)
[2022-02-09] MEDS: Docusate Sodium 100 MG CAPSULE PO (21:56)
[2022-02-10] VITALS (11 sets, daily range): BP systolic 150–185; BP diastolic 56–80; PULSE 53–94; RESP 16–20; TEMP 36.2–37.1; O2SAT 91–98
[2022-02-10] MEDS: Furosemide 40 MG/4 ML VIAL IVPUSH ×3 (00:41→23:40)
[2022-02-10] MEDS: 0.9 % Sodium Chloride Flush 3 ML SYRINGE IVFLUSH ×4 (00:42→23:40)
[2022-02-10] MEDS: oxyCODONE HCl Immed Release 5 MG TABLET 10 MG PO ×3 (04:16→23:41)
--- NOTE | 2022-02-10 04:31 | PC.NURSE ---
PT had a [address] Quintanilla was made aware
[2022-02-10 07:49] LABS: Creatinine Clr Calc Pharmacy 49.2; Estimated Glomerular Filt Rate 43
[2022-02-10] MEDS: Albuterol/Iprat 2.5/0.5MG 3 ML AMPUL.NEB INHALE ×4 (07:53→19:27)
[2022-02-10 08:00] LABS: Glucose, Whole Blood 199 mg/dL (60-115)
[2022-02-10] MEDS: Doxycycline Monohydrate 100 MG CAPSULE PO ×2 (09:51→21:26)
[2022-02-10] MEDS: hydrALAZINE HCl 50 MG TABLET PO (09:52)
[2022-02-10] MEDS: Losartan Potassium 50 MG TABLET 100 MG PO (09:52)
[2022-02-10] MEDS: amLODIPine Besylate 10 MG TABLET PO ×2 (09:52→21:26)
[2022-02-10] MEDS: Atorvastatin Calcium 80 MG TABLET PO (09:52)
[2022-02-10] MEDS: Metoprolol Succinate ER 100 MG TAB.ER.24H PO (09:52)
[2022-02-10] MEDS: Amoxicillin/Potassium Clav 875 MG TABLET PO ×2 (09:52→21:26)
[2022-02-10] MEDS: Enoxaparin Sodium 30 MG/0.3 ML SYRINGE SUBCUT (09:53)
[2022-02-10] MEDS: Sertraline HCL 50 MG TABLET PO (09:53)
--- NOTE | 2022-02-10 11:03 | PM.PNCARD ---
Subjective Subjective Date of Service: 02/10/22 Principal diagnosis: CHF, PVD, uncontrolled HTN Interval history: Seen examined at bedside.-3.6 L. clinically improving. Still volume overloaded though. Physical Exam Vital Signs: Last Vital Signs Temp 98.0 F 02/10/22 08:00 Pulse 84 02/10/22 10:50 Resp 18 02/10/22 10:50 BP 160/64 H 02/10/22 08:00 Pulse Ox 95 02/10/22 08:00 O2 Del Method 02/10/22 08:00 O2 Flow Rate 2 02/10/22 04:00 BMI result Body Mass Index 27.6 GENERAL APPEARANCE: in no acute distress, pleasant. NECK: no carotid bruit, mild jugular venous distention. SKIN: no suspicious lesions, warm and dry. HEART: no murmurs, regular rate and rhythm. LUNGS: clear to auscultation bilaterally. ABDOMEN: soft, nontender. EXTREMITIES: Mild edema. Right transmetatarsal amputation previously. Left foot amputation and wound is dressed currently. PERIPHERAL PULSES: equal. NEUROLOGIC: No gross deficits, AAO X 3 Objective Labs and Meds Result diagrams: 02/08/22 07:12 02/10/22 06:36 Lab results: Laboratory Results - last 24 hr 02/09/22 02/09/22 02/09/22 11:59 16:42 21:24 Creatinine Estim Creat Clear Calc Estimated GFR POC Glucose 238 H 195 H 303 H Random Vancomycin 02/10/22 02/10/22 02/10/22 06:36 06:36 07:38 Creatinine 1.62 H Estim Creat Clear Calc 49.2 Estimated GFR 43 POC Glucose 199 H Random Vancomycin 18.0 Progress Note: A&P Assessment and plan (1) CHF (congestive heart failure): Status: Acute Plan 66-year-old gentleman with acute diastolic heart failure. Clinically improving. Not on supplemental oxygen anymore. Continue IV diuretics today. Can change to p.o. furosemide 40 mg b.i.d. tomorrow. BP is high. Titrating hydralazine to 75 mg 3 times a day. This can be when she be increased to 100 mg t.i.d. if required. Thank you for allowing me to participate in the care of your patient. Please feel free to contact me if you have any questions. Time Spent With Patient Time: Total time spent is greater than 50% in coordination of care (as documented) at patient's floor/unit and/or counseling patient: Progress Note: Quality Stroke Does the patient have a stroke diagnosis?: No Procedures Date of Service Date of Service: 02/10/22
[2022-02-10 11:14] LABS: Glucose, Whole Blood 327 mg/dL (60-115)
--- NOTE | 2022-02-10 12:17 | HO.PM.IMPN ---
Subjective Subjective Date of Service: 02/10/22 Interval History: chf excerbation, uncontrolled htn Review of Systems still sob with exceresion ,has leg edema Denies any chest pain or abdominal pain or nausea vomiting, The Physical Exam Vital Signs: Vital Signs: Last Vital Signs Temp 98.0 F 02/10/22 08:00 Pulse 84 02/10/22 10:50 Resp 18 02/10/22 10:50 BP 160/64 H 02/10/22 08:00 Pulse Ox 95 02/10/22 08:00 O2 Del Method 02/10/22 08:00 O2 Flow Rate 2 02/10/22 04:00 BMI result Body Mass Index 27.6 Appearance:? Awake alert, seems at his baseline now. cvs: rrr, [id number]. res: clear to auscultation ,no rhonchii or wheezing abd: no rebound or guarding ,nt, bs present. ext pulses present , no cyanosis . left transmetatarsal amputation, has lower extremities edema neuro: axo3 , nonfocal Objective Data Active Medications Albuterol/Ipratropium (Albuterol/Iprat 2.5/0.5mg 3 Ml Ampul.Neb) 3 ml INHALE RQ4H WHILE AWAKE [facility] Last Admin: 02/10/22 10:49 Dose: 3 ml Documented By: BENJAMIN Amlodipine Besylate (Amlodipine Besylate 10 Mg Tablet) 10 mg PO BID [facility]; Protocol Last Admin: 02/10/22 09:52 Dose: 10 mg Documented By: ELIZABETH Amoxicillin/Clavulanate Potassium (Amoxicillin/Potassium Clav 875 Mg Tablet) 875 mg PO BID [facility] Last Admin: 02/10/22 09:52 Dose: 875 mg Documented By: ELIZABETH Atorvastatin Calcium (Atorvastatin Calcium 80 Mg Tablet) 80 mg PO DAILY [facility] Last Admin: 02/10/22 09:52 Dose: 80 mg Documented By: ELIZABETH Dextrose (Dextrose 50 % 25 Gm/50 Ml Syringe) 25 gm IVPUSH Q15M PRN PRN Reason: per Hypoglycemia Standing Ord. Last Admin: 02/06/22 07:35 Dose: 25 gm Documented By: DENZEL Docusate Sodium (Docusate Sodium 100 Mg Capsule) 100 mg PO BEDTIME [facility] Last Admin: 02/09/22 21:56 Dose: 100 mg Documented By: MOLLY Doxycycline Monohydrate (Doxycycline Monohydrate 100 Mg Capsule) 100 mg PO BID [facility] Last Admin: 02/10/22 09:51 Dose: 100 mg Documented By: ELIZABETH Enoxaparin Sodium (Enoxaparin Sodium 30 Mg/0.3 Ml Syringe) 30 mg SUBCUT Q24H [facility] Last Admin: 02/10/22 09:53 Dose: 30 mg Documented By: ELIZABETH Fluticasone Propionate (Fluticasone Propionate Nasal 16 Gm [place]) 2 spray NOSTRIL-B DAILY PRN PRN Reason: Nasal Congestion Furosemide (Furosemide 40 Mg/4 Ml Vial) 40 mg IVPUSH Q12H [facility]; Protocol Last Admin: 02/10/22 00:41 Dose: 40 mg Documented By: MOLLY Hydralazine HCl (Hydralazine Hcl 25 Mg Tablet) 75 mg PO TID [facility]; Protocol Insulin Glargine (Insulin Glargine,Hum.Rec.Anlog 100 Unit/Ml 10 Ml Vial) 18 unit SUBCUT BEDTIME [facility] Last Admin: 02/05/22 20:36 Dose: 18 unit Documented By: ARTEMIO Insulin Human Lispro (Insulin Lispro 100 Unit/Ml 3 Ml Vial) 0 unit SUBCUT QIDACHS [facility]; Protocol Last Admin: 02/10/22 09:35 Dose: Not Given Documented By: ELIZABETH Non-Admin Reason: No Insulin Coverage Losartan Potassium (Losartan Potassium 50 Mg Tablet) 100 mg PO DAILY [facility]; Protocol Last Admin: 02/10/22 09:52 Dose: 100 mg Documented By: ELIZABETH Metoprolol Succinate (Metoprolol Succinate Er 100 Mg Tab.Er.24h) 100 mg PO DAILY [facility]; Protocol Last Admin: 02/10/22 09:52 Dose: 100 mg Documented By: ELIZABETH Ondansetron HCl (Ondansetron Hcl 4 Mg/2 Ml Vial) 4 mg IVPUSH ONCE PRN PRN Reason: Nausea and Vomiting Oxycodone HCl (Oxycodone Hcl Immed Release 5 Mg Tablet) 5 mg PO Q8H PRN PRN Reason: Pain, Moderate (Pain Scale 4-6 Last Admin: 02/05/22 14:35 Dose: 5 mg Documented By: DENZEL Oxycodone HCl (Oxycodone Hcl Immed Release 5 Mg Tablet) 10 mg PO Q6H PRN PRN Reason: Pain, Moderate (Pain Scale 4-6 Last Admin: 02/10/22 04:16 Dose: 10 mg Documented By: MOLLY Oxycodone HCl (Oxycodone Hcl Immed Release 5 Mg Tablet) 5 mg PO ONCE PRN PRN Reason: Pain, Moderate (Pain Scale 4-6 Pharmacy Consult (Consult Rx Vancomycin Dosing) 1 each MISCELLANE DAILY PRN PRN Reason: Consult order Pharmacy Consult (Consult Rx Perform Med Rec) 1 each MISCELLANE ONCE PRN PRN Reason: Consult order Sertraline HCl (Sertraline Hcl 50 Mg Tablet) 50 mg PO DAILY [facility] Last Admin: 02/10/22 09:53 Dose: 50 mg Documented By: ELIZABETH Sitagliptin Phosphate (Sitagliptin Phosphate 100 Mg Tablet) 100 mg PO DAILY [facility] Last Admin: 02/05/22 09:01 Dose: 100 mg Documented By: DENZEL Sodium Chloride (0.9 % Sodium Chloride Flush 3 Ml Syringe) 3 ml IVFLUSH QSHIFT [facility] Last Admin: 02/10/22 09:53 Dose: 3 ml Documented By: ELIZABETH Tamsulosin HCl (Tamsulosin Hcl 0.4 Mg Capsule) 0.4 mg PO BEDTIME [facility] Last Admin: 02/09/22 21:56 Dose: 0.4 mg Documented By: MOLLY Labs CBC & Chem 7: 02/08/22 07:12 02/10/22 06:36 Labs: Laboratory Results - last 24 hr 02/09/22 02/09/22 02/10/22 16:42 21:24 06:36 Estim Creat Clear Calc 49.2 Estimated GFR 43 POC Glucose 195 H 303 H Random Vancomycin 02/10/22 02/10/22 02/10/22 06:36 07:38 11:08 Estim Creat Clear Calc Estimated GFR POC Glucose 199 H 327 H Random Vancomycin 18.0 Assessment and Plan (1) CKD stage 3 due to type 2 diabetes mellitus: Status: Acute (2) Osteomyelitis: Status: Acute (3) Acute hypoxemic respiratory failure: Status: Acute (4) CHF (congestive heart failure): Status: Acute (5) Pneumonia: Status: Acute (6) Toxic metabolic encephalopathy: Status: Acute Plan 66-year-old insulin dependent male presents to hospital with increased redness swelling and warmth 2 left foot amputation site and lower leg.? On 01/25/22 he underwent left great toe amputation by Dr. Topete; subsequent postoperative course unremarkable.? He was discharged home? 01/29/22 on an oral course of Keflex.? Returns today with increased pain erythema and warmth left lower extremity.? Has remained tolerant of therapy however sugars have been bottoming in a.m. secondary to lack of p.m. snacks.? Dr. Topete to see today... Acute hypoxemic respiratory failure possible multifactorial-secondary to CHF exacerbation, etiology unclear, echo pending. less likely penumonia low procalcitonin levels chest x-ray-? possible aspiration pneumonia component/CHF last bnp 800's range started on lasix iv 40 mg bid, antibiotics,Oxygen support daily weight, input and output monitor. acute osteomyelitis of left foot/Diabetic foot infection (left) intially received vancomycin/Zosyn (5)-Status post vascular surgery -trans met amputation left side. d/w vascular and ID-s/ptrans met amputation left side-d/w vascular and iD -since already has amputation of osteo site -switched to po antibiotics doxy/augmentin day3. toxic metabolic encephalopathy secondary to possible anaesthesia, patient is improving mental status improved to baseline. DM II (poorly control) -continue long-acting insulin (ask Pharmacy to convert Tresiba to Lantus) -lispro correctional scale -will decrease glipizide p.m. dose to 10 mg and follow -ADA diet -adjust therapies as indicated CKD 3 with hyperkalemia -potassium normalized -follow renals/divalents HTN (uncontrolled) -restarted outpatient regimen. ..? Remains poorly control continue amlodipine ,hydralazine ,losaran -adjust as indicated Full code Lovenox need of ongoing hospitalization : acute hypoxemic respiratory failure multifactorial-secondary to CHF exacerbation,still fluid overloaded . Quality Stroke Does the patient have a stroke diagnosis?: No VTE Prior VTE?: No VTE Risk Level:: Medical - moderate - high VTE Device Contraindication: Treatment Not Indicated VTE Drug Contraindication: N/A - Med Ordered
[2022-02-10] MEDS: hydrALAZINE HCl 25 MG TABLET 75 MG PO ×2 (13:35→21:26)
[2022-02-10] MEDS: Insulin Lispro 100 UNIT/ML 3 ML VIAL SUBCUT ×2 (13:35→21:26)
[2022-02-10 16:23] LABS: Glucose, Whole Blood 159 mg/dL (60-115)
[2022-02-10 20:01] LABS: Glucose, Whole Blood 269 mg/dL (60-115)
[2022-02-10] MEDS: Docusate Sodium 100 MG CAPSULE PO (21:27)
[2022-02-10] MEDS: Tamsulosin HCL 0.4 MG CAPSULE PO (21:27)
[2022-02-11] VITALS (10 sets, daily range): BP systolic 153–169; BP diastolic 55–79; PULSE 80–96; RESP 18–20; TEMP 36.3–37.2; O2SAT 92–98; BMI 27.8
[2022-02-11] MEDS: oxyCODONE HCl Immed Release 5 MG TABLET 10 MG PO ×3 (05:44→20:37)
[2022-02-11 06:35] LABS: Creatinine Clr Calc Pharmacy 49.8; Estimated Glomerular Filt Rate 43
[2022-02-11] MEDS: Albuterol/Iprat 2.5/0.5MG 3 ML AMPUL.NEB INHALE ×4 (07:41→18:45)
[2022-02-11 08:54] LABS: Glucose, Whole Blood 270 mg/dL (60-115)
[2022-02-11] MEDS: Losartan Potassium 50 MG TABLET 100 MG PO (09:11)
[2022-02-11] MEDS: Enoxaparin Sodium 30 MG/0.3 ML SYRINGE SUBCUT (09:11)
[2022-02-11] MEDS: Sertraline HCL 50 MG TABLET PO (09:11)
[2022-02-11] MEDS: hydrALAZINE HCl 25 MG TABLET 75 MG PO (09:11)
[2022-02-11] MEDS: Atorvastatin Calcium 80 MG TABLET PO (09:11)
[2022-02-11] MEDS: Metoprolol Succinate ER 100 MG TAB.ER.24H PO (09:11)
[2022-02-11] MEDS: amLODIPine Besylate 10 MG TABLET PO ×2 (09:11→20:37)
[2022-02-11] MEDS: Doxycycline Monohydrate 100 MG CAPSULE PO ×2 (09:11→20:36)
[2022-02-11] MEDS: Amoxicillin/Potassium Clav 875 MG TABLET PO ×2 (09:11→20:36)
[2022-02-11] MEDS: 0.9 % Sodium Chloride Flush 3 ML SYRINGE IVFLUSH ×3 (09:12→20:42)
[2022-02-11] MEDS: Insulin Lispro 100 UNIT/ML 3 ML VIAL SUBCUT ×3 (09:12→17:31)
[2022-02-11 11:46] LABS: Glucose, Whole Blood 193 mg/dL (60-115)
[2022-02-11] MEDS: Furosemide 40 MG/4 ML VIAL IVPUSH ×2 (11:52→22:57)
[2022-02-11] MEDS: Isosorbide Mononitrate 60 MG TAB.ER.24H PO (11:52)
--- NOTE | 2022-02-11 12:23 | PM.PNCARD ---
Subjective Subjective Date of Service: 02/11/22 Principal diagnosis: CHF, PVD, uncontrolled HTN Interval history: Seen examined at bedside.-3 L. clinically improving. Still volume overloaded though. Physical Exam Vital Signs: Last Vital Signs Temp 98.7 F 02/11/22 07:49 Pulse 85 02/11/22 10:58 Resp 18 02/11/22 10:58 BP 165/72 H 02/11/22 07:49 Pulse Ox 96 02/11/22 07:49 O2 Del Method 02/11/22 07:49 O2 Flow Rate 2 02/10/22 04:00 BMI result Body Mass Index 27.8 GENERAL APPEARANCE: in no acute distress, pleasant. NECK: no carotid bruit, mild jugular venous distention. SKIN: no suspicious lesions, warm and dry. HEART: no murmurs, regular rate and rhythm. LUNGS: clear to auscultation bilaterally. ABDOMEN: soft, nontender. EXTREMITIES: Mild edema. Right transmetatarsal amputation previously. Left foot amputation and wound is dressed currently. PERIPHERAL PULSES: equal. NEUROLOGIC: No gross deficits, AAO X 3 Objective Labs and Meds Result diagrams: 02/08/22 07:12 02/11/22 05:53 Lab results: Laboratory Results - last 24 hr 02/10/22 02/10/22 02/11/22 16:17 19:54 05:53 Creatinine 1.60 H Estim Creat Clear Calc 49.8 Estimated GFR 43 POC Glucose 159 H 269 H 02/11/22 02/11/22 07:50 11:29 Creatinine Estim Creat Clear Calc Estimated GFR POC Glucose 270 H 193 H Progress Note: A&P Assessment and plan (1) CHF (congestive heart failure): Status: Acute Plan 66-year-old gentleman with acute diastolic heart failure. Clinically improving. Not on supplemental oxygen anymore. Continue IV diuretics today. Reassess tomorrow to change to oral diuretics tomorrow. Blood pressure is elevated. Hydralazine was increased to 75 mg 3 times a day. If he continues to have elevated blood pressure then would consider increasing it to 100 mg 3 times a day. I have also added isosorbide mononitrate to his regimen. Overall his volume status is improving but he is still volume overloaded. I think hypoxia was related to heart failure. Thank you for allowing me to participate in the care of your patient. Please feel free to contact me if you have any questions. Time Spent With Patient Time: Total time spent is greater than 50% in coordination of care (as documented) at patient's floor/unit and/or counseling patient: Progress Note: Quality Stroke Does the patient have a stroke diagnosis?: No Procedures Date of Service Date of Service: 02/11/22
[2022-02-11 16:12] LABS: Glucose, Whole Blood 351 mg/dL (60-115)
[2022-02-11] MEDS: hydrALAZINE HCl 50 MG TABLET 100 MG PO ×2 (16:31→20:36)
[2022-02-11 20:06] LABS: Glucose, Whole Blood 117 mg/dL (60-115)
[2022-02-11] MEDS: Tamsulosin HCL 0.4 MG CAPSULE PO (20:37)
[2022-02-11] MEDS: Docusate Sodium 100 MG CAPSULE PO (20:37)
[2022-02-12] VITALS (8 sets, daily range): BP systolic 131–148; BP diastolic 54–62; PULSE 77–88; RESP 16–20; TEMP 36.1–37.1; O2SAT 93–98; BMI 25.6
[2022-02-12] MEDS: oxyCODONE HCl Immed Release 5 MG TABLET 10 MG PO ×3 (04:07→21:21)
[2022-02-12] MEDS: Albuterol/Iprat 2.5/0.5MG 3 ML AMPUL.NEB INHALE ×4 (07:07→18:42)
[2022-02-12 07:24] LABS: Glucose, Whole Blood 153 mg/dL (60-115)
[2022-02-12 07:38] LABS: Creatinine Clr Calc Pharmacy 52.8; Estimated Glomerular Filt Rate 46
--- NOTE | 2022-02-12 07:59 | HO.PM.IMPN ---
Subjective Subjective Date of Service: 02/11/22 Interval History: chf excerbation, uncontrolled htn vital from 02/11/22 reviewed. Review of Systems still sob with exceresion ,has? leg edema Denies any chest pain or abdominal pain or nausea vomiting, Physical Exam Vital Signs: Vital Signs: Last Vital Signs BMI result ? Appearance:? Awake alert, seems at his baseline now. cvs: rrr, [id number]. res: clear to auscultation ,no rhonchii or wheezing abd: no rebound or guarding ,nt, bs present. ext pulses present , no cyanosis . left transmetatarsal amputation, has lower extremities edema neuro: axo3 , nonfocal Objective Data Active Medications Albuterol/Ipratropium (Albuterol/Iprat 2.5/0.5mg 3 Ml Ampul.Neb) 3 ml INHALE RQ4H WHILE AWAKE [facility] Last Admin: 02/12/22 07:07 Dose: 3 ml Documented By: RUSSELL Amlodipine Besylate (Amlodipine Besylate 10 Mg Tablet) 10 mg PO BID [facility]; Protocol Last Admin: 02/11/22 20:37 Dose: 10 mg Documented By: CLIFFORD Amoxicillin/Clavulanate Potassium (Amoxicillin/Potassium Clav 875 Mg Tablet) 875 mg PO BID [facility] Last Admin: 02/11/22 20:36 Dose: 875 mg Documented By: CLIFFORD Atorvastatin Calcium (Atorvastatin Calcium 80 Mg Tablet) 80 mg PO DAILY [facility] Last Admin: 02/11/22 09:11 Dose: 80 mg Documented By: ELIZABETH Dextrose (Dextrose 50 % 25 Gm/50 Ml Syringe) 25 gm IVPUSH Q15M PRN PRN Reason: per Hypoglycemia Standing Ord. Last Admin: 02/06/22 07:35 Dose: 25 gm Documented By: DENZEL Docusate Sodium (Docusate Sodium 100 Mg Capsule) 100 mg PO BEDTIME [facility] Last Admin: 02/11/22 20:37 Dose: 100 mg Documented By: CLIFFORD Doxycycline Monohydrate (Doxycycline Monohydrate 100 Mg Capsule) 100 mg PO BID [facility] Last Admin: 02/11/22 20:36 Dose: 100 mg Documented By: CLIFFORD Enoxaparin Sodium (Enoxaparin Sodium 30 Mg/0.3 Ml Syringe) 30 mg SUBCUT Q24H [facility] Last Admin: 02/11/22 09:11 Dose: 30 mg Documented By: ELIZABETH Fluticasone Propionate (Fluticasone Propionate Nasal 16 Gm [place]) 2 spray NOSTRIL-B DAILY PRN PRN Reason: Nasal Congestion Furosemide (Furosemide 40 Mg/4 Ml Vial) 40 mg IVPUSH Q12H [facility]; Protocol Last Admin: 02/11/22 22:57 Dose: 40 mg Documented By: CLIFFORD Hydralazine HCl (Hydralazine Hcl 50 Mg Tablet) 100 mg PO TID [facility]; Protocol Last Admin: 02/11/22 20:36 Dose: 100 mg Documented By: CLIFFORD Insulin Glargine (Insulin Glargine,Hum.Rec.Anlog 100 Unit/Ml 10 Ml Vial) 18 unit SUBCUT BEDTIME [facility] Last Admin: 02/05/22 20:36 Dose: 18 unit Documented By: ARTEMIO Insulin Human Lispro (Insulin Lispro 100 Unit/Ml 3 Ml Vial) 0 unit SUBCUT QIDACHS [facility]; Protocol Last Admin: 02/11/22 20:42 Dose: Not Given Documented By: CLIFFORD Non-Admin Reason: No Access Isosorbide Mononitrate (Isosorbide Mononitrate 60 Mg Tab.Er.24h) 60 mg PO DAILY [facility]; Protocol Last Admin: 02/11/22 11:52 Dose: 60 mg Documented By: ELIZABETH Losartan Potassium (Losartan Potassium 50 Mg Tablet) 100 mg PO DAILY [facility]; Protocol Last Admin: 02/11/22 09:11 Dose: 100 mg Documented By: ELIZABETH Metoprolol Succinate (Metoprolol Succinate Er 100 Mg Tab.Er.24h) 100 mg PO DAILY [facility]; Protocol Last Admin: 02/11/22 09:11 Dose: 100 mg Documented By: ELIZABETH Ondansetron HCl (Ondansetron Hcl 4 Mg/2 Ml Vial) 4 mg IVPUSH ONCE PRN PRN Reason: Nausea and Vomiting Pharmacy Consult (Consult Rx Perform Med Rec) 1 each MISCELLANE ONCE PRN PRN Reason: Consult order Sertraline HCl (Sertraline Hcl 50 Mg Tablet) 50 mg PO DAILY [facility] Last Admin: 02/11/22 09:11 Dose: 50 mg Documented By: ELIZABETH Sitagliptin Phosphate (Sitagliptin Phosphate 100 Mg Tablet) 100 mg PO DAILY [facility] Last Admin: 02/05/22 09:01 Dose: 100 mg Documented By: DENZEL Sodium Chloride (0.9 % Sodium Chloride Flush 3 Ml Syringe) 3 ml IVFLUSH QSHIFT [facility] Last Admin: 02/11/22 20:42 Dose: 3 ml Documented By: CLIFFORD Tamsulosin HCl (Tamsulosin Hcl 0.4 Mg Capsule) 0.4 mg PO BEDTIME [facility] Last Admin: 02/11/22 20:37 Dose: 0.4 mg Documented By: CLIFFORD Labs CBC & Chem 7: 02/08/22 07:12 02/12/22 06:48 Labs: Laboratory Results - last 24 hr 02/11/22 02/11/22 02/11/22 07:50 11:29 15:59 Estim Creat Clear Calc Estimated GFR POC Glucose 270 H 193 H 351 H* 02/11/22 02/12/22 02/12/22 20:02 06:48 07:17 Estim Creat Clear Calc 52.8 Estimated GFR 46 POC Glucose 117 H 153 H Assessment and Plan (1) CKD stage 3 due to type 2 diabetes mellitus: Status: Acute (2) Osteomyelitis: Status: Acute (3) Acute hypoxemic respiratory failure: Status: Acute (4) CHF (congestive heart failure): Status: Acute (5) Pneumonia: Status: Acute (6) Toxic metabolic encephalopathy: Status: Acute Plan 66-year-old insulin dependent male presents to hospital with increased redness swelling and warmth 2 left foot amputation site and lower leg.? On 01/25/22 he underwent left great toe amputation by Dr. Topete; subsequent postoperative course unremarkable.? He was discharged home? 01/29/22 on an oral course of Keflex.? Returns today with increased pain erythema and warmth left lower extremity.? Has remained tolerant of therapy however sugars have been bottoming in a.m. secondary to lack of p.m. snacks.? Dr. Topete to see today... Acute hypoxemic respiratory failure possible multifactorial-secondary to CHF exacerbation, etiology unclear, echo pending. less likely penumonia low procalcitonin levels chest x-ray-? possible aspiration pneumonia component/CHF last bnp 800's range started on lasix iv 40 mg bid, antibiotics,Oxygen support daily weight, input and output monitor. acute osteomyelitis of left foot/Diabetic foot infection (left) intially received vancomycin/Zosyn (5)-Status post vascular surgery -trans met amputation left side. d/w vascular and ID-s/ptrans met amputation left side-d/w vascular and iD -since already has amputation of osteo site -switched to po antibiotics doxy/augmentin day3. toxic metabolic encephalopathy secondary to possible anaesthesia, patient is improving mental status improved to baseline. DM II (poorly control) -continue long-acting insulin (ask Pharmacy to convert Tresiba to Lantus) -lispro correctional scale -will decrease glipizide p.m. dose to 10 mg and follow -ADA diet -adjust therapies as indicated CKD 3 with hyperkalemia -potassium normalized -follow renals/divalents HTN (uncontrolled) -restarted outpatient regimen. ..? Remains poorly control continue amlodipine ,hydralazine ,losaran -adjust as indicated Full code Lovenox need of ongoing hospitalization : acute hypoxemic respiratory failure multifactorial-secondary to CHF exacerbation,still fluid overloaded . Quality Stroke Does the patient have a stroke diagnosis?: No VTE Prior VTE?: No VTE Risk Level:: Medical - moderate - high VTE Device Contraindication: Treatment Not Indicated VTE Drug Contraindication: N/A - Med Ordered
[2022-02-12] MEDS: Doxycycline Monohydrate 100 MG CAPSULE PO ×2 (10:11→20:10)
[2022-02-12] MEDS: Isosorbide Mononitrate 60 MG TAB.ER.24H PO (10:11)
[2022-02-12] MEDS: hydrALAZINE HCl 50 MG TABLET 100 MG PO ×3 (10:11→20:10)
[2022-02-12] MEDS: Sertraline HCL 50 MG TABLET PO (10:11)
[2022-02-12] MEDS: amLODIPine Besylate 10 MG TABLET PO (10:12)
[2022-02-12] MEDS: Metoprolol Succinate ER 100 MG TAB.ER.24H PO (10:12)
[2022-02-12] MEDS: Atorvastatin Calcium 80 MG TABLET PO (10:12)
[2022-02-12] MEDS: 0.9 % Sodium Chloride Flush 3 ML SYRINGE IVFLUSH ×3 (10:12→20:10)
[2022-02-12] MEDS: Losartan Potassium 50 MG TABLET 100 MG PO (10:12)
[2022-02-12] MEDS: Amoxicillin/Potassium Clav 875 MG TABLET PO ×2 (10:12→20:10)
[2022-02-12] MEDS: Enoxaparin Sodium 30 MG/0.3 ML SYRINGE SUBCUT (10:13)
[2022-02-12 11:04] LABS: Glucose, Whole Blood 292 mg/dL (60-115)
[2022-02-12] MEDS: Furosemide 40 MG/4 ML VIAL IVPUSH (11:56)
[2022-02-12] MEDS: Insulin Lispro 100 UNIT/ML 3 ML VIAL SUBCUT ×2 (11:56→20:10)
--- NOTE | 2022-02-12 13:06 | MHC.CM.PN ---
per rounds pt not ready for dc plan remains hoime with [facility] plus caregivers vna
--- NOTE | 2022-02-12 14:47 | P.PNCA_ITS ---
Subjective Subjective Date of Service: 02/12/22 <ZOHAIB Mercer - Last Filed: 02/12/22 15:00> 02/12/22 <Elia Bonilla MD - Last Filed: 02/12/22 17:06> Principal diagnosis: CHF, PVD, uncontrolled HTN <ZOHAIB Mercer - Last Filed: 02/12/22 15:00> Interval history: Seen at 1215. Today he reports breathing is comfortable. Not wearing O2 supplement. No cough. No chest pains, palpitation, dizziness. No edema right leg, mild present left lower leg. Tele showing SR in 80s. BP improving, 140/60 this am. <ZOHAIB Mercer - Last Filed: 02/12/22 15:00> Review of Systems Review of Systems as above <ZOHAIB Mercer - Last Filed: 02/12/22 15:00> Yes all other systems are reviewed and are negative <ZOHAIB Mercer - Last Filed: 02/12/22 15:00> Physical Exam Vital Signs: Last Vital Signs Temp 96.9 F 02/12/22 11:10 Pulse 77 02/12/22 11:10 Resp 16 02/12/22 11:10 BP 134/54 L 02/12/22 11:10 Pulse Ox 96 02/12/22 11:10 O2 Del Method 02/12/22 11:10 O2 Flow Rate 1 02/12/22 07:41 BMI result Body Mass Index 25.6 <ZOHAIB Mercer - Last Filed: 02/12/22 15:00> Const General: cooperative, comfortable and no acute distress <ZOHAIB Mercer - Last Filed: 02/12/22 15:00> Orientation/consciousness: patient oriented x3 <ZOHAIB Mercer Last Filed: 02/12/22 15:00> Neck Neck: Yes normal visual inspection and Yes no JVD <ZOHAIB Mercer Last Filed: 02/12/22 15:00> Resp Effort & Inspection: normal respiratory effort <ZOHAIB Mercer - Last Filed: 02/12/22 15:00> Auscultation: clear to auscultation bilaterally, no crackles, no rales, no rhonchi and no wheezes <Kasia KRISTI VossC - Last Filed: 02/12/22 15:00> Cardio Rate: regular rate <Kasia Shanika, NP-C - Last Filed: 02/12/22 15:00> Rhythm: regular rhythm <[facility] OMER Voss-C - Last Filed: 02/12/22 15:00> Heart sounds: S1 normal heart sound present, S2 normal heart sound present, no gallops, no murmurs and no rubs <[facility] OMER Voss-C - Last Filed: 02/12/22 15:00> Neuro General: patient oriented x3 <Kasia KRISTI VossC - Last Filed: 02/12/22 15:00> Extrem Other: Bilateral transmetatarsal amputations. trace edema left lower leg <[facility] OMER Voss-C - Last Filed: 02/12/22 15:00> Psych Appearance: grossly normal <[facility] OMER Voss-C - Last Filed: 02/12/22 15:00> Mental Status: mental status grossly normal <[facility] OMER Voss-C - Last Filed: 02/12/22 15:00> Speech and movement: Normal speech and movement present <[facility] OMER Voss-C - Last Filed: 02/12/22 15:00> Objective Labs and Meds Result diagrams: : 02/08/22 07:12 02/12/22 06:48 <Kasia Ordoñez OMER Voss-C - Last Filed: 02/12/22 15:00> Lab results: Laboratory Results - last 24 hr 02/11/22 02/11/22 02/12/22 15:59 20:02 06:48 Creatinine 1.51 H Estim Creat Clear Calc 52.8 Estimated GFR 46 POC Glucose 351 H* 117 H 02/12/22 02/12/22 07:17 10:50 Creatinine Estim Creat Clear Calc Estimated GFR POC Glucose 153 H 292 H <Kasia OMER Voss-C - Last Filed: 02/12/22 15:00> Progress Note: A&P Assessment and plan (1) CHF (congestive heart failure): Status: Acute <ZOHAIB Mercer - Last Filed: 02/12/22 15:00> Assessment and Plan: Admission for PVD reasons with foot infection and then transmetatarsal amp on left done 02/07/22. Had recieved IV Fluids. Developed increased sob. BNP elevated at 1107 on 02/07. CXR 02/07 shows new patchy opacity right upper lobe and left perihilar region, mild increased pulmonary vascularity, ? mild CHF. Echo 02/08 shows EF 55-60%, elevated filling pressures, mild increase in RV size and decrease in RV systolic function. No prior known CHF. Has multiple cardiac risk factors however nuclear stress test done 01/04/22 shows normal myocardial perfusion imaging. He is being treated for acute HFpEF. He has been on Lasix 40mg IV q 12, which was then reduced to daily. . Documented fluid balance Neg 3234 cc since admit. Clinically he has improved: He reports that breathing is comfortable. Sat 96% on RA. Only trace edema left lower leg and No longer has JVD. Cr 1.51 today which is good for him. Will change Lasix to 40mg po BID ( home dose was 40mg once daily). Will start Aldactone 25mg daily. BMP, BNP in am. Electrolyte replacement if warranted. Plan for a BMP again in 5-7 days. We will sign off and arrange for outpt cardiology follow up. <KRISTI Mercer - Last Filed: 02/12/22 15:00> Admission for PVD reasons with foot infection and then transmetatarsal amp on left done 02/07/22. Had recieved IV Fluids. Developed increased sob. BNP elevated at 1107 on 02/07. CXR 02/07 shows new patchy opacity right upper lobe and left perihilar region, mild increased pulmonary vascularity, ? mild CHF. Echo 02/08 shows EF 55-60%, elevated filling pressures, mild increase in RV size and decrease in RV systolic function. No prior known CHF. Has multiple cardiac risk factors however nuclear stress test done 01/04/22 shows normal myocardial perfusion imaging. He is being treated for acute HFpEF. He has been on Lasix 40mg IV q 12, which was then reduced to daily. . Documented fluid balance Neg 3234 cc since admit. Clinically he has improved: He reports that breathing is comfortable. Sat 96% on RA. Only trace edema left lower leg and No longer has JVD. Cr 1.51 today which is good for him. Will change Lasix to 40mg po BID ( home dose was 40mg once daily). Will start Aldactone 25mg daily. BMP, BNP in am. Electrolyte replacement if warranted. Plan for a BMP again in 5-7 days. We will sign off and arrange for outpt cardiology follow up. Patient seen and examined. Case discussed with Kasia Voss. Patient appears clinically more euvolemic. Continue Lasix 40 mg b.i.d.. CHF education with daily weight monitoring and avoidance of salt loading was discussed. Continue more aggressive blood pressure control. Currently on maximal doses of carvedilol, hydralazine as well as Norvasc. Add Aldactone 25 mg daily. Will check BMP and BNP in 1 week. Follow up in the clinic in 4 weeks. Will sign of the case <Elia Bonilla MD - Last Filed: 02/12/22 17:06> (2) Uncontrolled hypertension: Status: Acute <ZOHAIB Mercer - Last Filed: 02/12/22 15:00> Assessment and Plan: BP elevated this admission. Hx of HTN. Renal artery ultrasound done on 01/05/22 shows increased peak systolic velocity on right mid renal artery, ? right renal artery stenosis, normal on left. He is following with vascular, Dr Topete. On high dose statin. For BP on Metoprolol xl, Hydralazine, Amlodipine and Losartan. Doses have been increased this admit and Isosorbide has been added. BP this am 140/60. Now adding Aldactone to help prevent recurrent HF. <ZOHAIB Mercer - Last Filed: 02/12/22 15:00> (3) PAD (peripheral artery disease): Status: Acute <ZOHAIB Mercer - Last Filed: 02/12/22 15:00> Assessment and Plan: Followed by Dr Topete. <ZOHAIB Mercer - Last Filed: 02/12/22 15:00> Time Spent With Patient Time: Total time spent is greater than 50% in coordination of care (as documented) at patient's floor/unit and/or counseling patient: 22 <ZOHAIB Mercer - Last Filed: 02/12/22 15:00> Progress Note: Quality Stroke Does the patient have a stroke diagnosis?: No <ZOHAIB Mercer - Last Filed: 02/12/22 15:00> Procedures Date of Service Date of Service: 02/12/22 <ZOHAIB Mercer - Last Filed: 02/12/22 15:00>
--- NOTE | 2022-02-12 15:19 | P.PNIM_ITS ---
Subjective Subjective Date of Service: 02/13/22 Interval History: chf excerbation, uncontrolled htn Review of Systems still sob with exceresion ,has? leg edema Denies any chest pain or abdominal pain or nausea vomiting, Physical Exam Vital Signs: Vital Signs: Last Vital Signs Temp 96.9 F 02/12/22 11:10 Pulse 84 02/12/22 14:58 Resp 18 02/12/22 14:58 BP 134/54 L 02/12/22 11:10 Pulse Ox 96 02/12/22 11:10 O2 Del Method 02/12/22 11:10 O2 Flow Rate 1 02/12/22 07:41 BMI result Body Mass Index 25.6 ?Appearance:? Awake alert, seems at his baseline now. cvs: rrr, [id number]. res: clear to auscultation ,no rhonchii or wheezing abd: no rebound or guarding ,nt, bs present. ext pulses present , no cyanosis . left transmetatarsal amputation, has lower extremities edema neuro: axo3 , nonfocal Objective Data Active Medications Albuterol/Ipratropium (Albuterol/Iprat 2.5/0.5mg 3 Ml Ampul.Neb) 3 ml INHALE RQ4H WHILE AWAKE [facility] Last Admin: 02/12/22 14:57 Dose: 3 ml Documented By: BENJAMIN Amlodipine Besylate (Amlodipine Besylate 10 Mg Tablet) 10 mg PO DAILY [facility]; Protocol Amoxicillin/Clavulanate Potassium (Amoxicillin/Potassium Clav 875 Mg Tablet) 875 mg PO BID [facility] Last Admin: 02/12/22 10:12 Dose: 875 mg Documented By: HALEY Atorvastatin Calcium (Atorvastatin Calcium 80 Mg Tablet) 80 mg PO DAILY [facility] Last Admin: 02/12/22 10:12 Dose: 80 mg Documented By: HALEY Dextrose (Dextrose 50 % 25 Gm/50 Ml Syringe) 25 gm IVPUSH Q15M PRN PRN Reason: per Hypoglycemia Standing Ord. Last Admin: 02/06/22 07:35 Dose: 25 gm Documented By: DENZEL Docusate Sodium (Docusate Sodium 100 Mg Capsule) 100 mg PO BEDTIME [facility] Last Admin: 02/11/22 20:37 Dose: 100 mg Documented By: CLIFFORD Doxycycline Monohydrate (Doxycycline Monohydrate 100 Mg Capsule) 100 mg PO BID [facility] Last Admin: 02/12/22 10:11 Dose: 100 mg Documented By: HALEY Enoxaparin Sodium (Enoxaparin Sodium 30 Mg/0.3 Ml Syringe) 30 mg SUBCUT Q24H [facility] Last Admin: 02/12/22 10:13 Dose: 30 mg Documented By: HALEY Fluticasone Propionate (Fluticasone Propionate Nasal 16 Gm [place]) 2 spray NOSTRIL-B DAILY PRN PRN Reason: Nasal Congestion Furosemide (Furosemide 40 Mg Tablet) 40 mg PO BID@0900,1800 [facility]; Protocol Hydralazine HCl (Hydralazine Hcl 50 Mg Tablet) 100 mg PO TID [facility]; Protocol Last Admin: 02/12/22 10:11 Dose: 100 mg Documented By: HALEY Insulin Glargine (Insulin Glargine,Hum.Rec.Anlog 100 Unit/Ml 10 Ml Vial) 18 unit SUBCUT BEDTIME [facility] Last Admin: 02/05/22 20:36 Dose: 18 unit Documented By: ARTEMIO Insulin Human Lispro (Insulin Lispro 100 Unit/Ml 3 Ml Vial) 0 unit SUBCUT QIDACHS [facility]; Protocol Last Admin: 02/12/22 11:56 Dose: 6 unit Documented By: HALEY Isosorbide Mononitrate (Isosorbide Mononitrate 60 Mg Tab.Er.24h) 60 mg PO DAILY [facility]; Protocol Last Admin: 02/12/22 10:11 Dose: 60 mg Documented By: HALEY Losartan Potassium (Losartan Potassium 50 Mg Tablet) 100 mg PO DAILY [facility]; Protocol Last Admin: 02/12/22 10:12 Dose: 100 mg Documented By: HALEY Metoprolol Succinate (Metoprolol Succinate Er 100 Mg Tab.Er.24h) 100 mg PO DAILY [facility]; Protocol Last Admin: 02/12/22 10:12 Dose: 100 mg Documented By: HALEY Ondansetron HCl (Ondansetron Hcl 4 Mg/2 Ml Vial) 4 mg IVPUSH ONCE PRN PRN Reason: Nausea and Vomiting Oxycodone HCl (Oxycodone Hcl Immed Release 5 Mg Tablet) 10 mg PO Q6H PRN PRN Reason: Pain, Mild (Pain Scale 1-3) Last Admin: 02/12/22 11:56 Dose: 10 mg Documented By: HALEY Pharmacy Consult (Consult Rx Perform Med Rec) 1 each MISCELLANE ONCE PRN PRN Reason: Consult order Sertraline HCl (Sertraline Hcl 50 Mg Tablet) 50 mg PO DAILY [facility] Last Admin: 02/12/22 10:11 Dose: 50 mg Documented By: HALEY Sitagliptin Phosphate (Sitagliptin Phosphate 100 Mg Tablet) 100 mg PO DAILY [facility] Last Admin: 02/05/22 09:01 Dose: 100 mg Documented By: DENZEL Sodium Chloride (0.9 % Sodium Chloride Flush 3 Ml Syringe) 3 ml IVFLUSH QSHIFT [facility] Last Admin: 02/12/22 10:12 Dose: 3 ml Documented By: HALEY Spironolactone (Spironolactone 25 Mg Tablet) 25 mg PO DAILY [facility]; Protocol Tamsulosin HCl (Tamsulosin Hcl 0.4 Mg Capsule) 0.4 mg PO BEDTIME [facility] Last Admin: 02/11/22 20:37 Dose: 0.4 mg Documented By: CLIFFORD Labs CBC & Chem 7: 02/13/22 07:36 02/13/22 06:18 Labs: Laboratory Results - last 24 hr 02/11/22 02/11/22 02/12/22 15:59 20:02 06:48 Estim Creat Clear Calc 52.8 Estimated GFR 46 POC Glucose 351 H* 117 H 02/12/22 02/12/22 07:17 10:50 Estim Creat Clear Calc Estimated GFR POC Glucose 153 H 292 H Assessment and Plan (1) CKD stage 3 due to type 2 diabetes mellitus: Status: Acute (2) Osteomyelitis: Status: Acute (3) Acute hypoxemic respiratory failure: Status: Acute (4) CHF (congestive heart failure): Status: Acute (5) Pneumonia: Status: Acute (6) Toxic metabolic encephalopathy: Status: Acute Plan 66-year-old insulin dependent male presents to hospital with increased redness swelling and warmth 2 left foot amputation site and lower leg.? On 01/25/22 he underwent left great toe amputation by Dr. Topete; subsequent postoperative course unremarkable.? He was discharged home? 01/29/22 on an oral course of Keflex.? Returns today with increased pain erythema and warmth left lower extremity.? Has remained tolerant of therapy however sugars have been bottoming in a.m. secondary to lack of p.m. snacks.? Dr. Topete to see today... Acute hypoxemic respiratory failure possible multifactorial-secondary to CHF exacerbation, etiology unclear, echo pending. less likely penumonia low procalcitonin levels chest x-ray-? possible aspiration pneumonia component/CHF last bnp 800's range started on lasix iv 40 mg bid, antibiotics,Oxygen support daily weight, input and output monitor. acute osteomyelitis of left foot/Diabetic foot infection (left) intially received vancomycin/Zosyn (5)-Status post vascular surgery -trans met amputation left side. d/w vascular and ID-s/ptrans met amputation left side-d/w vascular and iD -since already has amputation of osteo site -switched to po antibiotics doxy/augmentin day3. toxic metabolic encephalopathy secondary to possible anaesthesia, patient is improving mental status improved to baseline. DM II (poorly control) -continue long-acting insulin (ask Pharmacy to convert Tresiba to Lantus) -lispro correctional scale -will decrease glipizide p.m. dose to 10 mg and follow -ADA diet -adjust therapies as indicated CKD 3 with hyperkalemia -potassium normalized -follow renals/divalents HTN (uncontrolled) -restarted outpatient regimen. ..? Remains poorly control continue amlodipine ,hydralazine ,losaran -adjust as indicated Full code Lovenox need of ongoing hospitalization : acute hypoxemic respiratory failure multifactorial-secondary to CHF exacerbation,still fluid overloaded . Quality Stroke Does the patient have a stroke diagnosis?: No VTE Prior VTE?: No VTE Risk Level:: Medical - moderate - high VTE Device Contraindication: Treatment Not Indicated VTE Drug Contraindication: N/A - Med Ordered
[2022-02-12 16:35] LABS: Glucose, Whole Blood 191 mg/dL (60-115)
[2022-02-12] MEDS: Spironolactone 25 MG TABLET PO (17:00)
[2022-02-12 19:56] LABS: Glucose, Whole Blood 272 mg/dL (60-115)
[2022-02-12] MEDS: Docusate Sodium 100 MG CAPSULE PO (20:10)
[2022-02-12] MEDS: Tamsulosin HCL 0.4 MG CAPSULE PO (20:10)
[2022-02-13] VITALS: BP 138/60; PULSE 84; RESP 18; TEMP 37.1; O2SAT 96
[2022-02-13 04:00] VITALS: BP 130/68; PULSE 87; RESP 20; TEMP 37.1; O2SAT 96
[2022-02-13] MEDS: oxyCODONE HCl Immed Release 5 MG TABLET 10 MG PO ×2 (04:30→11:24)
[2022-02-13 05:42] VITALS: BMI 24.2
[2022-02-13 07:16] LABS: Creatinine Clr Calc Pharmacy 49.8; Estimated Glomerular Filt Rate 43
[2022-02-13 07:18] LABS: Anion Gap 15 (12-20); Blood Urea Nitrogen 26 mg/dL (9-16); Calcium 8.2 mg/dL (8.4-10.2); Carbon Dioxide 23 mmol/L (22-29); Chloride 100 mmol/L (96-108); Creatinine Clr Calc Pharmacy 49.8; Estimated Glomerular Filt Rate 43; Glucose Random 232 mg/dL (60-115); Sodium 134 mmol/L (135-145)
[2022-02-13 07:21] VITALS: BP 170/65; PULSE 81; RESP 12; TEMP 37.1; O2SAT 95
[2022-02-13 07:24] LABS: Glucose, Whole Blood 201 mg/dL (60-115)
[2022-02-13] MEDS: Albuterol/Iprat 2.5/0.5MG 3 ML AMPUL.NEB INHALE ×2 (07:38→11:20)
[2022-02-13 07:39] VITALS: PULSE 83; RESP 17; O2SAT 94
[2022-02-13] MEDS: Insulin Lispro 100 UNIT/ML 3 ML VIAL SUBCUT ×2 (08:03→13:40)
[2022-02-13] MEDS: Enoxaparin Sodium 30 MG/0.3 ML SYRINGE SUBCUT (08:04)
[2022-02-13] MEDS: Isosorbide Mononitrate 60 MG TAB.ER.24H PO (08:04)
[2022-02-13] MEDS: Amoxicillin/Potassium Clav 875 MG TABLET PO (08:05)
[2022-02-13] MEDS: Atorvastatin Calcium 80 MG TABLET PO (08:05)
[2022-02-13] MEDS: Metoprolol Succinate ER 100 MG TAB.ER.24H PO (08:05)
[2022-02-13] MEDS: Losartan Potassium 50 MG TABLET 100 MG PO (08:05)
[2022-02-13] MEDS: Furosemide 40 MG TABLET PO (08:05)
[2022-02-13] MEDS: amLODIPine Besylate 10 MG TABLET PO (08:05)
[2022-02-13] MEDS: Spironolactone 25 MG TABLET PO (08:05)
[2022-02-13] MEDS: hydrALAZINE HCl 50 MG TABLET 100 MG PO (08:05)
[2022-02-13] MEDS: Sertraline HCL 50 MG TABLET PO (08:05)
[2022-02-13] MEDS: 0.9 % Sodium Chloride Flush 3 ML SYRINGE IVFLUSH (08:06)
[2022-02-13] MEDS: Doxycycline Monohydrate 100 MG CAPSULE PO (08:06)
[2022-02-13 08:17] LABS: Basophils Absolute Auto 0.1 X10*3/uL (0.0-0.2); Basophils Percent Auto 0.4 % (0-2); Eosinophils Absolute Auto 0.2 X10*3/uL (0.0-0.4); Eosinophils Percent Auto 1.4 % (0-4); Hematocrit 26.8 % (42.0-52.0); Hemoglobin 8.8 g/dl (14.0-18.0); Imm Gran Abs Auto 0.07 X10*3/uL (0.00-0.03); Imm Gran Pct Auto 0.6 % (0.0-0.4); Lymphocytes Absolute Auto 1.2 X10*3/uL (1.2-4.9); Lymphocytes Percent Auto 10.4 % (20-40); Mean Corpuscular HGB Conc 32.8 g/dl (31.0-36.0); Mean Corpuscular Volume 88.4 fL (80.0-98.0); Mean Platelet Volume 9.5 fL (9.4-12.4); Monocytes Absolute Auto 1.5 X10*3/uL (0.1-1.2); Monocytes Percent Auto 12.1 % (2-11); Neutrophils Percent Auto 75.1 % (45-73); Platelet Count 391 X10*3/uL (160-400); Red Blood Count 3.03 X10*6/uL (4.60-5.80); Red Cell Distribution Width 13.4 % (11.0-16.0)
[2022-02-13 08:39] LABS: B Type Natriuretic Peptide 428 pg/mL (<100)
--- NOTE | 2022-02-13 09:14 | P.DS_ITS ---
DS: Providers Provider Date of Service: 02/13/22 Date of admission: 02/02/22 07:58 Primary care physician: Marline Richard MD Consults: 02/02/22 08:49 Consult to Vascular Surgery Routine Consulting Provider: Lyle Topete Reason for consultation: Cellulitis s/p amp Has provider been notified: No 02/02/22 08:50 Consult to Infectious Diseases Stat Consulting Provider: Carmel Ochoa Reason for consultation: ? osteo Has provider been notified: Yes 02/07/22 07:39 Consult to Infectious Diseases Routine Consulting Provider: Carmel Ochoa Reason for consultation: foot osteo-s/p amputation Has provider been notified: No 02/07/22 13:49 Consult to Cardiology Routine Consulting Provider: Armando Moody Reason for consultation: chf excrebation Has provider been notified: No DS: Diagnosis Discharge Diagnosis (1) CHF (congestive heart failure): Status: Acute (2) Uncontrolled hypertension: Status: Acute (3) PAD (peripheral artery disease): Status: Acute (4) Pneumonia: Status: Acute (5) Acute hypoxemic respiratory failure: Status: Acute (6) Toxic metabolic encephalopathy: Status: Acute (7) Osteomyelitis: Status: Acute (8) Diabetic foot infection: Status: Acute (9) (HFpEF) heart failure with preserved ejection fraction: Status: Acute DS: Summary Hospital Course Hospital Course: 66-year-old insulin dependent male presents to hospital with increased redness swelling and warmth 2 left foot amputation site and lower leg.? On 01/25/22 he underwent left great toe amputation by Dr. Topete; subsequent postoperative course unremarkable.? He was discharged home? 01/29/22 on an oral course of Keflex.? Returns today with increased pain erythema and warmth left lower extremity.? Has remained tolerant of therapy however sugars have been bottoming in a.m. secondary to lack of p.m. snacks.? Dr. Topete to see today. Hospital course: Patient was admitted for acute osteomyelitis/dm foot infection(left foot)-status post amputation by vascular. Over the hospitalist course developed acute hypoxemic respiratory failure secondary multifactorial CHF(HFpEF), also possible pneumonia: Patient was given IV diuresis as well as antibiotic seems to be improved significantly. Patient also had toxic metabolic encephalopathy possibly related to anesthesia, and CHF: Improved to baseline now. rSeen by Cardiology: Patient diuresed well, now seems to be near baseline, patient will go home Lasix p.o. as well as Imdur and spironolactone added, hy dralazine adjusted as per blood pressure. Patient is to monitor BMP out patiently, cardiology may arrange their own appointment. CHF education given in detail. Follow-up with Cardiology and vascular outpatient. Assessment and plan coordination time spent 50 minutes. Time Spent with Patient Time attestation: Total time spent providing and/or coordinating discharge services: Discharge coordination time: Greater than 30 minutes Quality: Safe Use of Opioids Does Pt have an Active Cancer Diagnosis on the Problem List?: No Quality: Stroke Does the patient have a stroke diagnosis?: No Physical Exam Vital Signs: Vital Signs: Last Vital Signs Temp 98.7 F 02/13/22 07:21 Pulse 83 02/13/22 07:39 Resp 17 02/13/22 07:39 BP 170/65 H 02/13/22 07:21 Pulse Ox 95 02/13/22 07:21 O2 Del Method 02/13/22 07:21 O2 Flow Rate 1 02/12/22 07:41 BMI result Body Mass Index 24.2 ?? Appearance:? Awake alert, seems at his baseline now. cvs: rrr, [id number]. res: clear to auscultation ,no rhonchii or wheezing abd: no rebound or guarding ,nt, bs present. ext pulses present , no cyanosis . left transmetatarsal amputation, has lower extremities edema improved neuro: axo3 , nonfocal DS: Data Data Completed and Pending Completed studies during hospitalization [Text1]: Pending at discharge 02/06/22 13:00 Surgical [PTH] Routine Procedures Detachment at Left 1st Toe, Complete, Open Approach (01/24/22) Extirpation of Matter from Left Femoral Artery, Open Approach (01/03/22) Fluoroscopy of Aorta and Bilateral Lower Extremity Arteries (01/03/22) Plain Radiography of Aorta and Bilateral Lower Extremity Arteries using Low Osmolar Contrast (01/24/22) Supplement Left Femoral Artery with Synthetic Substitute, Open Approach (01/03/22) Transfusion of Nonautologous Red Blood Cells into Peripheral Vein, Percutaneous Approach (01/24/22) Labs on day of discharge: Laboratory Results - last 24 hr 02/12/22 02/12/22 02/12/22 10:50 16:30 19:23 WBC RBC Hgb Hct MCV MCH MCHC RDW Plt Count MPV Immature Gran % (Auto) Neut % (Auto) Lymph % (Auto) [place] % (Auto) Eos % (Auto) Baso % (Auto) Lymph # (Auto) [place] # (Auto) Eos # (Auto) Baso # (Auto) Abs Immat Gran (auto) Absolute Neuts (auto) Absolute Nucleated RBC Nucleated RBC % (auto) Sodium Potassium Chloride Carbon Dioxide Anion Gap BUN Creatinine Estim Creat Clear Calc Estimated GFR POC Glucose 292 H 191 H 272 H Random Glucose Calcium B-Natriuretic Peptide 02/13/22 02/13/22 02/13/22 06:18 06:18 07:03 WBC RBC Hgb Hct MCV MCH MCHC RDW Plt Count MPV Immature Gran % (Auto) Neut % (Auto) Lymph % (Auto) [place] % (Auto) Eos % (Auto) Baso % (Auto) Lymph # (Auto) [place] # (Auto) Eos # (Auto) Baso # (Auto) Abs Immat Gran (auto) Absolute Neuts (auto) Absolute Nucleated RBC Nucleated RBC % (auto) Sodium 134 L Potassium 4.0 Chloride 100 Carbon Dioxide 23 Anion Gap 15 BUN 26 H Creatinine 1.60 H 1.60 H Estim Creat Clear Calc 49.8 49.8 Estimated GFR 43 43 POC Glucose 201 H Random Glucose 232 H Calcium 8.2 L B-Natriuretic Peptide 02/13/22 02/13/22 07:36 07:36 WBC 12.0 H RBC 3.03 L Hgb 8.8 L Hct 26.8 L MCV 88.4 MCH 29.0 MCHC 32.8 RDW 13.4 Plt Count 391 MPV 9.5 Immature Gran % (Auto) 0.6 H Neut % (Auto) 75.1 H Lymph % (Auto) 10.4 L [place] % (Auto) 12.1 H Eos % (Auto) 1.4 Baso % (Auto) 0.4 Lymph # (Auto) 1.2 [place] # (Auto) 1.5 H Eos # (Auto) 0.2 Baso # (Auto) 0.1 Abs Immat Gran (auto) 0.07 H Absolute Neuts (auto) 9.0 H Absolute Nucleated RBC 0.000 Nucleated RBC % (auto) 0.0 Sodium Potassium Chloride Carbon Dioxide Anion Gap BUN Creatinine Estim Creat Clear Calc Estimated GFR POC Glucose Random Glucose Calcium B-Natriuretic Peptide 428 H Imaging Chest x-ray: Radiologist's impression: ITS Impressions Foot X-Ray 02/02/22 06:03 IMPRESSION: Amputation of the first digit from the metatarsophalangeal joint. No osseous erosion. Soft tissue swelling. Chest X-Ray 02/02/22 08:23 IMPRESSION: Enlarged cardiac silhouette and question pulmonary venous redistribution versus airways disease. Venous Duplex 02/02/22 09:30 IMPRESSION: No DVT demonstrated in the left lower extremity. Chest X-Ray 02/07/22 12:55 IMPRESSION: 1. New patchy opacity right upper lobe and left parahilar region of lingular segment. Suspect infiltrate. 2. Mild increased pulmonary vascularity question mild congestion. echo: Conclusions: - Normal left ventricular size, thickness, and systolic function. The visually estimated ejection fraction is between 55-60%.? ? ? - Elevated filling pressures.? - Mildly increased right ventricular cavity size.? There is? ? ? mildly decreased right ventricular systolic function.? - The left atrium is mildly dilated.? The right atrium is normal in size. ? - There is mild dilatation of the sinuses of Valsalva measuring? 3.70 cm and mild dilatation of the ascending aorta measuring 3.40 cm.? Discharge Plan Discharge Anticipated Discharge Date/Time: 02/13/22 08:58 Patient Disposition: Home Health Service Discharge Diagnosis: chf excerbation, uncontrolled htn Referrals: [facility] care givers [Other] - 1 Week Marline Richard MD [Primary Care Provider] - 1 Week Discharge Medications: New spironolactone 25 mg Tablet 25 mg PO DAILY Qty: 30 0RF Protocol: Hold for SBP< HOLD for SBP < : 90 isosorbide mononitrate 60 mg Tablet Extended Release 24 Hr 60 mg PO DAILY Qty: 30 0RF Protocol: Hold for SBP< HOLD for SBP < : 90 doxycycline monohydrate 100 mg Capsule 100 mg PO BID Qty: 10 0RF docusate sodium 100 mg Capsule 100 mg PO BEDTIME Qty: 30 0RF hydralazine 50 mg Tablet 100 mg PO TID Qty: 90 0RF Protocol: Hold for SBP< HOLD for SBP < : 90 amoxicillin-pot clavulanate 875-125 mg Tablet 875 mg PO BID Qty: 10 0RF Continued tamsulosin 0.4 mg capsule 0.4 mg PO BEDTIME Qty: 30 2RF insulin degludec [Tresiba FlexTouch U-100] 100 unit/mL (3 mL) insulin pen 25 unit subcut QPM oxycodone-acetaminophen [Percocet] 5-325 mg tablet 1 tab PO Q8H PRN (Reason: pain) Qty: 14 0RF Rx Instructions: Partial Fill upon patient request. amlodipine 10 mg Tablet 10 mg PO DAILY@1700 30 Days Qty: 30 0RF Protocol: Hold for SBP< HOLD for SBP < : 90 Januvia 100 mg tablet 100 mg PO DAILY sertraline 50 mg tablet 50 mg PO DAILY fluticasone propionate 50 mcg/actuation spray,suspension 2 spray intranasal QAM PRN (Reason: Nasal Congestion) metformin 1,000 mg tablet 1,000 mg PO BID metoprolol succinate 100 mg tablet extended release 24 hr 100 mg PO DAILY glipizide 10 mg tablet 20 mg PO BID atorvastatin 80 mg tablet 80 mg PO DAILY povidone-iodine 10 % solution See Rx Instructions .ROUTE .COMPLEX Rx Instructions: APPLY TOPICALLY TO TOES DAILY Changed losartan 50 mg tablet 100 mg PO QAM Qty: 60 0RF furosemide 40 mg tablet 40 mg PO BID Qty: 60 0RF Discontinued hydralazine 25 mg tablet 50 mg PO BID 120 Days Qty: 480 0RF Rx Instructions: TAKE WITH FOOD Discharge Orders: Discharge Order (Routine); Ordered 02/13/22 Ordered By: Juliocesar Vu Diet: Advance to usual diet Activity on Discharge: As tolerated Stand Alone Forms: Patient Portal Discharge page Activity Restrictions/Additional Instructions: Wound care upon discharge: xeroform, 4x4 and Kerlix wrap to be changed daily. Please call Dr. Topete at [phone] for 2 week follow up for suture and staple removal Care Plan Goals: Patient was admitted for acute osteomyelitis of foot-status post amputation by vascular. Over the hospitalist course developed acute hypoxemic respiratory failure secondary multifactorial CHF, also possible pneumonia: Patient was given IV diuresis as well as antibiotic seems to be improved significantly. Seen by Cardiology: Patient diuresed well, now seems to be near baseline, patient will go home Lasix p.o. as well as Imdur and spironolactone added, hydralazine adjusted as per blood pressure. Patient is to monitor BMP out patiently, cardiology may arrange their own appointment. CHF education given in detail. Health Concerns: As above. Plan of Treatment: As above. Assessment: As above. Patient Instructions: Heart Failure (DC), Osteomyelitis (DC), Acute Respiratory Failure (ED)
--- NOTE | 2022-02-13 09:47 | MHC.CM.PN ---
pt dcd home with resumption of pc services and [facility]
--- NOTE | 2022-02-13 10:23 | P.PNCA_ITS ---
Subjective Subjective Date of Service: 02/13/22 Principal diagnosis: CHF, PVD, uncontrolled HTN Interval history: Seen at 0930. Today he reports feeling well and ready for discharge. Breathing is comfortable. No chest pains, palpitation, dizziness. Still has some mild edema in left lower leg, no edema on right leg. Denies much discomfort from left foot. Tele stable SR, 80s, Bps overall improved. Review of Systems Review of Systems as above Yes all other systems are reviewed and are negative Physical Exam Vital Signs: Last Vital Signs Temp 98.7 F 02/13/22 07:21 Pulse 83 02/13/22 07:39 Resp 17 02/13/22 07:39 BP 170/65 H 02/13/22 07:21 Pulse Ox 95 02/13/22 07:21 O2 Del Method 02/13/22 07:21 O2 Flow Rate 1 02/12/22 07:41 BMI result Body Mass Index 24.2 Const General: cooperative, comfortable and no acute distress Orientation/consciousness: patient oriented x3 Neck Neck: Yes normal visual inspection and Yes no JVD Resp Effort & Inspection: normal respiratory effort Auscultation: clear to auscultation bilaterally, no crackles, no rales, no rhonchi and no wheezes Cardio Rate: regular rate Rhythm: regular rhythm Heart sounds: S1 normal heart sound present, S2 normal heart sound present, no gallops, no murmurs and no rubs Neuro General: patient oriented x3 Extrem Other: Bilateral transmetatarsal amputations. trace edema left lower leg Psych Appearance: grossly normal Mental Status: mental status grossly normal Speech and movement: Normal speech and movement present Objective Labs and Meds Result diagrams: 02/13/22 07:36 02/13/22 06:18 Lab results: Laboratory Results - last 24 hr 02/12/22 02/12/22 02/12/22 10:50 16:30 19:23 WBC RBC Hgb Hct MCV MCH MCHC RDW Plt Count MPV Immature Gran % (Auto) Neut % (Auto) Lymph % (Auto) [place] % (Auto) Eos % (Auto) Baso % (Auto) Lymph # (Auto) [place] # (Auto) Eos # (Auto) Baso # (Auto) Abs Immat Gran (auto) Absolute Neuts (auto) Absolute Nucleated RBC Nucleated RBC % (auto) Sodium Potassium Chloride Carbon Dioxide Anion Gap BUN Creatinine Estim Creat Clear Calc Estimated GFR POC Glucose 292 H 191 H 272 H Random Glucose Calcium B-Natriuretic Peptide 02/13/22 02/13/22 02/13/22 06:18 06:18 07:03 WBC RBC Hgb Hct MCV MCH MCHC RDW Plt Count MPV Immature Gran % (Auto) Neut % (Auto) Lymph % (Auto) [place] % (Auto) Eos % (Auto) Baso % (Auto) Lymph # (Auto) [place] # (Auto) Eos # (Auto) Baso # (Auto) Abs Immat Gran (auto) Absolute Neuts (auto) Absolute Nucleated RBC Nucleated RBC % (auto) Sodium 134 L Potassium 4.0 Chloride 100 Carbon Dioxide 23 Anion Gap 15 BUN 26 H Creatinine 1.60 H 1.60 H Estim Creat Clear Calc 49.8 49.8 Estimated GFR 43 43 POC Glucose 201 H Random Glucose 232 H Calcium 8.2 L B-Natriuretic Peptide 02/13/22 02/13/22 07:36 07:36 WBC 12.0 H RBC 3.03 L Hgb 8.8 L Hct 26.8 L MCV 88.4 MCH 29.0 MCHC 32.8 RDW 13.4 Plt Count 391 MPV 9.5 Immature Gran % (Auto) 0.6 H Neut % (Auto) 75.1 H Lymph % (Auto) 10.4 L [place] % (Auto) 12.1 H Eos % (Auto) 1.4 Baso % (Auto) 0.4 Lymph # (Auto) 1.2 [place] # (Auto) 1.5 H Eos # (Auto) 0.2 Baso # (Auto) 0.1 Abs Immat Gran (auto) 0.07 H Absolute Neuts (auto) 9.0 H Absolute Nucleated RBC 0.000 Nucleated RBC % (auto) 0.0 Sodium Potassium Chloride Carbon Dioxide Anion Gap BUN Creatinine Estim Creat Clear Calc Estimated GFR POC Glucose Random Glucose Calcium B-Natriuretic Peptide 428 H Progress Note: A&P Assessment and plan (1) CHF (congestive heart failure): Status: Acute Assessment and Plan: Admission for PVD reasons with foot infection and then transmetatarsal amp on l eft done 02/07/22. Had recieved IV Fluids. Developed increased sob. BNP elevated at 1107 on 02/07. CXR 02/07 shows new patchy opacity right upper lobe and left perihilar region, mild increased pulmonary vascularity, ? mild CHF. Echo 02/08 shows EF 55-60%, elevated filling pressures, mild increase in RV size and decrease in RV systolic function. No prior known CHF. Has multiple cardiac risk factors however nuclear stress test done 01/04/22 shows normal myocardial perfusion imaging. He has been treated for acute HFpEF and diuresed with IV Lasix. Documented fluid balance Neg 3454 cc since admit. Clinically he has improved: He reports that breathing is comfortable. Sat 95% on RA. Mild edema left lower leg and No longer has JVD. Cr 1.6 today which is stable. Lasix changed to 40mg po BID starting today. Aldactone added yesterday. Will need BMP in 5-7 days. Can be discharged from a cardiology perspective. We will arrange for outpt Cardiology follow up in few weeks. (2) Uncontrolled hypertension: Status: Acute Assessment and Plan: BP elevated this admission. Hx of HTN. Renal artery ultrasound done on 01/05/22 shows increased peak systolic velocity on right mid renal artery, ? right renal artery stenosis, normal on left. He is following with vascular, Dr Topete. On high dose statin. For BP on Metoprolol xl, Hydralazine, Amlodipine and Losartan. Doses have been increased this admit and Isosorbide and aldactone have been added. BP this am 130/68 and 170/65. Continue current meds. BMP as above. Will be followed further as outpt. (3) PAD (peripheral artery disease): Status: Acute Assessment and Plan: Followed by Dr Topete. Time Spent With Patient Time: Total time spent is greater than 50% in coordination of care (as documented) at patient's floor/unit and/or counseling patient: 20 Progress Note: Quality Stroke Does the patient have a stroke diagnosis?: No Procedures Date of Service Date of Service: 02/13/22
[2022-02-13 11:21] VITALS: PULSE 84; RESP 17; O2SAT 95
[2022-02-13 11:25] LABS: Glucose, Whole Blood 327 mg/dL (60-115)
[2022-02-13 11:46] VITALS: BP 146/66; PULSE 78; RESP 14; TEMP 36.6; O2SAT 95
--- NOTE | 2022-02-13 12:02 | W.MHC.F2F ---
Service Date Service Date: 02/13/22 Encounter Date of encounter: 02/13/22 Encounter: wound care, chf Reasons for Services Signs and symptoms assessed: sob ,wound care Reason for correction: wound care, medication management, medication treatment and teach disease management MD Overseeing Care: Marline Richard Homebound: Leaving the home is medically contraindicated at this time without the asist of a device and/or another person due th the listed conditions above and below. Reason homebound: weakness related to hospital stay Homebound supporting statement: Patient had multiple comorbidities including left foot amputation,chf excerebation-needs help with appointment ,wound care,labs draws. Certification: Based on the above findings, I certify that this patient is confined to the home and needs intermittent correction care, physical therapy and/or speech therapy, or continues to need occupational therapy. The patient is under my care, and I have initiated the establishment of the plan of care. The patient will be followed by a physician who will periodically review the plan of care.
== END 2022-02-13 15:34 | disposition home health service (06) | DRG 474 ==
LOC: HO.ED 06:40 → HO.EDOVER 08:04 → HO.S3 08:39 → HO.IMC 02-07 14:59
PROVIDERS: Nurse Practitioner Family; Surgery Vascular Surgery; Admitting Provider Hospitalist; Emergency Provider Internal Medicine; PCP General Practice; Visit Provider Internal Medicine
PROC: 0Y6N0Z9 Detachment at Left Foot, Partial 1st Ray, Open Approach (ICD-10-PCS; CPT 28805; principal; 2022-02-06 10:20)
DX: T87.44 Infection of amputation stump, left lower extremity (principal); G92.8 Other toxic encephalopathy; I50.31 Acute diastolic (congestive) heart failure; J96.01 Acute respiratory failure with hypoxia; M86.172 Other acute osteomyelitis, left ankle and foot; I13.0 Hypertensive heart and chronic kidney disease with heart failure and stage 1 through stage 4 chronic kidney disease, or unspecified chronic kidney disease; E11.69 Type 2 diabetes mellitus with other specified complication; E78.5 Hyperlipidemia, unspecified; G89.29 Other chronic pain; L03.032 Cellulitis of left toe; N18.30 Chronic kidney disease, stage 3 unspecified; E87.5 Hyperkalemia; E11.51 Type 2 diabetes mellitus with diabetic peripheral angiopathy without gangrene; E11.65 Type 2 diabetes mellitus with hyperglycemia; E11.22 Type 2 diabetes mellitus with diabetic chronic kidney disease; M54.9 Dorsalgia, unspecified; E11.649 Type 2 diabetes mellitus with hypoglycemia without coma; Z20.822 Contact with and (suspected) exposure to COVID-19; Z87.891 Personal history of nicotine dependence; Z79.4 Long term (current) use of insulin; Z79.51 Long term (current) use of inhaled steroids; Z79.84 Long term (current) use of oral hypoglycemic drugs; Z79.899 Other long term (current) drug therapy
CPT/HCPCS: 36415; 71045; 73620; 80048; 80053; 80202; 82565; 82947; 83605; 83880; 84145; 85025; 85027; 85652; 86140; 86850; 86900; 86901; 86923; 87040; 87070; 87205; 87633; 87635; 87640; 87641; 88307; 93306; 93971; 94640; 99284; J1170; J1650; J1940; J2250; J2270; J2405; J2543; J2795; J3010; J3370; P9016; Q9957

== ENCOUNTER → 2022-03-06 10:05 | Outpatient (BNVA) | payer OTHER, SELFPAY | PROVIDERS: PCP General Practice; Visit Provider Surgery Vascular Surgery | DX: Z47.81 Encounter for orthopedic aftercare following surgical amputation (principal); I73.9 Peripheral vascular disease, unspecified; Z89.432 Acquired absence of left foot | CPT/HCPCS: 99212 ==

== ENCOUNTER 2022-03-08 18:08 | Inpatient (IN) | payer OTHER, SELFPAY ==
--- NOTE | ~2022-03-08 | XR_ITS ---
EXAMINATION: XR FOOT, LEFT CLINICAL INFORMATION: Left foot pain COMPARISON: Left foot radiographs 02/02/2022 TECHNIQUE: AP, lateral, and oblique views of the left foot. FINDINGS: Status post transmetatarsal amputation. Question of a soft tissue wound overlying the residual base of the first metatarsal. No osseous destructive change or periostitis identified. No tracking soft tissue gas. Residual joint spaces are maintained. No ankle joint effusion. Vascular calcifications. Dorsal soft tissue swelling. Large plantar calcaneal spur. XR/XR foot LT 2V IMPRESSION: 1. Status post transmetatarsal amputation. Suggestion of a soft tissue wound along the medial aspect of the amputation stump overlying the base of the first metatarsal. Correlate clinically. No radiographic evidence of advanced acute osteomyelitis. 2. Dorsal soft tissue swelling.
--- NOTE | ~2022-03-08 | XR_ITS ---
EXAMINATION: XR CHEST CLINICAL INFORMATION: Cough. COMPARISON: None TECHNIQUE: Frontal view of the chest was obtained. FINDINGS: The lungs are well-expanded and clear of acute process. Heart size is enlarged. Pulmonary vascularity is normal. There is mild spondylosis dorsal spine. No aggressive lytic or sclerotic process seen. XR/XR chest 1V IMPRESSION: Mild cardiomegaly. No acute process seen.
--- NOTE | 2022-03-08 18:19 | ED.LOWEXIN ---
HPI - Extremity Injury (Lower) General Chief Complaint: Extremity Problem Stated Complaint: L FOOT PAIN S/P RECENT TOE AMP,LOW BS 55, 65 NOW Time Seen by Provider: 03/08/22 18:17 Source: patient and EMS Mode of arrival: EMS Limitations: no limitations History of Present Illness HPI Narrative: 67 year old pmhx HLD, CHF, HTN, LIVE, DM, coming in today w/ complaints of pain to left foot and numbness and tingling patient recently had a amputation done here in late january. Also noted to be hypoglycemic (55) 4 gm glucose tablet was given by family it went up to (65) for EMS, EMS gave oral glucose POC now in mid 70. Subjective feves and chills. Denies nausea, abdominal pain headache, vision changes dizziness, chest pain, shortness of breath. Related Data Home Medications Medication Instructions Recorded Confirmed atorvastatin 80 mg tablet 80 mg PO DAILY 04/27/21 02/02/22 fluticasone propionate 50 2 spray intranasal QAM PRN Nasal 04/27/21 02/02/22 mcg/actuation nasal Congestion spray,suspension glipizide 10 mg tablet 20 mg PO BID 04/27/21 02/02/22 metformin 1,000 mg tablet 1,000 mg PO BID 04/27/21 02/02/22 metoprolol succinate 100 mg 100 mg PO DAILY 04/27/21 02/02/22 tablet,extended release 24 hr sertraline 50 mg tablet 50 mg PO DAILY 04/27/21 02/02/22 sitagliptin phosphate 100 mg 100 mg PO DAILY 04/27/21 02/02/22 tablet (Januvia) povidone-iodine 10 % topical See Rx Instructions .Route .COMPLEX 12/28/21 02/02/22 solution insulin degludec 100 unit/mL (3 25 unit subcut QPM 01/03/22 02/02/22 mL) subcutaneous pen (Tresiba FlexTouch U-100 insulin) Previous Rx's Medication Instructions Recorded tamsulosin 0.4 mg capsule 0.4 mg PO BEDTIME #30 caps 05/09/20 oxycodone-acetaminophen 5 mg-325 1 tab PO Q8H PRN pain #14 tabs 01/11/22 mg tablet (Percocet) amlodipine 10 mg tablet 10 mg PO DAILY@1700 30 days #30 01/29/22 tabs docusate sodium 100 mg capsule 100 mg PO BEDTIME #30 caps 02/13/22 doxycycline monohydrate 100 mg 100 mg PO BID #10 caps 02/13/22 capsule furosemide 40 mg tablet 40 mg PO BID #60 tabs 02/13/22 hydralazine 50 mg tablet 100 mg PO TID #90 tabs 02/13/22 isosorbide mononitrate 60 mg 60 mg PO DAILY #30 tabs 02/13/22 tablet,extended release 24 hr losartan 50 mg tablet 100 mg PO QAM #60 tabs 02/13/22 spironolactone 25 mg tablet 25 mg PO DAILY #30 tabs 02/13/22 amoxicillin 875 mg-potassium 1 tab PO BID #20 tabs 03/07/22 clavulanate 125 mg tablet Allergies Allergy/AdvReac Type Severity Reaction Status Date / Time No Known Allergies Allergy Verified 03/06/22 10:15 [No Known Allergies*] Review of Systems Review of Systems: Constitutional : No Weight loss, No Fever, No Chills, No Fatigue, No Malaise ENT/Mouth : No sore throat, No Rhinorrhea Eyes: No Eye Pain, No Swelling, No Redness Cardiovascular : No Chest Pain, No SOB, No Dyspnea on Exertion, No Orthopnea, No Edema, No Palpitations Respiratory : No Cough, No Sputum, No Wheezing Gastrointestinal : No Nausea, No Vomiting, No Diarrhea, No Constipation, No abdominal Pain, No Hematochezia, No Melena Genitourinary : No Dysuria, No Urinary Frequency, No Hematuria, Musculoskeletal : No joint pain, No Myalgias, No Joint Swelling, + LLE pain Skin : No Skin Lesions, No rash Neuro : No Weakness, No Numbness, No Dizziness, No Headache Psych : No Anxiety/Panic, No Depression All other systems reviewed and are negative Yes all other systems are reviewed and are negative [facility] Past Medical History Attestation statement: The following information was validated with the patient. Source: old records reviewed and nursing notes reviewed Medical History Diabetes High cholesterol HTN (hypertension) Hyperlipidemia associated with type 2 diabetes mellitus Kidney disease Type 2 diabetes mellitus Surgical History H/O shoulder surgery History of amputation of right forefoot Hx of amputation Social History Social History Household Members: None Housing: Apartment Do you presently have visiting nurse or other home services: Yes Alcohol intake: never Patient Tobacco Use Status: Former Tobacco user Quit Date: >20yr ago Tobacco use type: Cigarette Smoked in Last 30 Days: No Substance Use Type: Crack/Cocaine Advance Directives: Yes Advance Directives on File: Yes Advance Directives Date on File: 02/02/22 service: No Current occupational status: retired Physical Exam Vital Signs: Vital Signs: Last Vital Signs Temp 101.3 F H 03/08/22 18:29 Pulse 75 03/08/22 18:29 Resp 18 03/08/22 18:29 BP 143/83 H 03/08/22 18:29 Pulse Ox 98 03/08/22 18:29 O2 Del Method 03/08/22 18:29 BMI result Body Mass Index 28.8 vss Appearance: Alert.? Oriented X3.? No acute distress.? Head: Normocephalic, atraumatic, no step-offs or deformities Eyes: Pupils equal, round and reactive to light.? Neck: Normal inspection.? Neck supple.? CVS: Normal heart rate and rhythm.? Pulses normal.? Respiratory: No respiratory distress.? Breath sounds normal.? Abdomen: Soft and nontender.? Skin: Skin warm and dry.? Normal skin color.? Normal skin turgor.? Extremities: No lower extremity edema.? No calf ttp. global weakness + poorly healing L transmetatarsal amputation site painful to the touch and appears naccrotic 2+ popliteal pulses equal and b/l Back: No midline tenderness, no C-spine tenderness, full range of motion, no CVA tenderness bilaterally Neuro: Oriented X 3.? No motor deficit.? No sensory deficit. CN 2-12 intact Course Reevaluation(s) Reevaluation #1: CBC with slight leukocytosis and a normocytic anemia which appears to be around patient's baseline, patient denies blood in stool, vomiting blood. Chemistry with slightly low sodium, BUN of 44 creatinine 1.84, this appears to be around patient's baseline. Patient's random glucose 45, given oral glucose however now his point of care is 39, will give him D5 with normal saline. Patient noted to have a normal lactic acid, therefore low suspicion for sepsis. There is still concern for cellulitis of left lower extremity will treat with vanco and Zosyn. Patient is likely febrile secondary to influenza. Time: 20:35 Reevaluation #2: Plan at this time is hospital admission for left lower extremity cellulitis, poor wound healing, hypoglycemia, influenza . Time: 20:47 Medications Administered Generic Name Dose Route Start Last Admin Trade Name Freq PRN Reason Stop Dose Admin Dextrose/Sodium Chloride 1,000 mls @ 100 mls/hr 03/08/22 20:45 03/08/22 20:51 D5ns IVCONT 100 mls/hr .Q10H ANNABELLA Administration Piperacillin Sod/Tazobactam 50 mls @ 100 mls/hr 03/08/22 20:44 03/08/22 20:58 Sod 3.375 gm/ Sodium Chloride IV 03/08/22 21:13 100 mls/hr ONCE ONE Administration Discontinued Medications Generic Name Dose Route Start Last Admin Trade Name Freq PRN Reason Stop Dose Admin Acetaminophen 975 mg 03/08/22 18:29 03/08/22 18:42 Acetaminophen 325 Mg Tablet PO 03/08/22 18:30 975 mg ONCE ONE Administration Glucose 15 gm 03/08/22 20:04 03/08/22 20:11 Glucose Gel 15 Gm Gel..Gram. PO 03/08/22 20:05 15 gm ONCE ONE Administration Morphine Sulfate 4 mg 03/08/22 18:17 03/08/22 18:42 Morphine Sulfate 4 Mg/Ml Cartridge IVPUSH 03/08/22 18:18 4 mg ONCE ONE Administration Protocol Medical Decision Making Medical Decision Making [facility] Narrative: 1820 67-year-old male presents with left lower extremity pain times a few days worsening. Tells me he recently had an amputation done here. Upon chart review it is noted that patient had left toe amputation on 01/25/2022. It continued to remain nonhealing after that he had undergone a diagnostic angiogram and a subsequent left transmetatarsal amputation on 02/06/2022. He has taken antibiotics for this. Upon physical examination poorly healing L transmetatarsal amputation site painful to the touch and appears naccrotic 2+ popliteal pulses equal and b/l. Patient febrile. Concerns for possible osteomyelitis vs non healing wound vs necrotic wound. There is concern for infection therefore at time of initial presentation a sepsis focused exam was done. Will wait to administer antibiotics and fluids and to laboratory studies results. Will obtain blood cultures, lactic acid, basic labs, ESR, CRP. ( sepsis alert called overhead) Lab Data Result Diagrams: 03/08/22 19:34 03/08/22 19:34 Labs: Lab Results 03/08/22 03/08/22 03/08/22 Range/Units 19:34 19:34 19:34 WBC 12.2 H (4.8-10.8) X10*3/uL RBC 2.42 L D (4.60-5.80) X10*6/uL Hgb 7.1 L (14.0-18.0) g/dl Hct 21.8 L (42.0-52.0) % MCV 90.1 (80.0-98.0) fL MCH 29.3 (27.0-33.0) pg MCHC 32.6 (31.0-36.0) g/dl RDW 14.0 (11.0-16.0) % Plt Count 270 D (160-400) X10*3/uL MPV 9.2 L (9.4-12.4) fL Immature Gran % (Auto) 0.5 H (0.0-0.4) % Neut % (Auto) 78.6 H (45-73) % Lymph % (Auto) 10.0 L (20-40) % [place] % (Auto) 10.5 (2-11) % Eos % (Auto) 0.3 (0-4) % Baso % (Auto) 0.1 (0-2) % Lymph # (Auto) 1.2 (1.2-4.9) X10*3/uL [place] # (Auto) 1.3 H (0.1-1.2) X10*3/uL Eos # (Auto) 0.0 (0.0-0.4) X10*3/uL Baso # (Auto) 0.0 (0.0-0.2) X10*3/uL Abs Immat Gran (auto) 0.06 H (0.00-0.03) X10*3/uL Absolute Neuts (auto) 9.6 H (2.0-8.3) x10*3/uL Absolute Nucleated RBC 0.000 (0.0-0.012) X10*3/uL Nucleated RBC % (auto) 0.0 (0.0-0.2) /100WBC Sodium 133 L (135-145) mmol/L Potassium 4.6 (3.3-5.1) mmol/L Chloride 102 (96-108) mmol/L Carbon Dioxide 22 (22-29) mmol/L Anion Gap 14 (12-20) BUN 44 H D (9-16) mg/dL Creatinine 1.84 H (0.5-1.4) mg/dL Estim Creat Clear Calc 41.6 Estimated GFR 37 POC Glucose (60-115) mg/dL Random Glucose 45 L* (60-115) mg/dL Lactic Acid 0.6 (0.5-2.0) mmol/L Calcium 8.3 L (8.4-10.2) mg/dL Magnesium 1.5 L (1.6-2.6) mg/dL Total Bilirubin 0.3 (0.0-1.0) mg/dL AST 58 H (5-37) U/L ALT 41 H (0-40) U/L Alkaline Phosphatase 100 D (39-117) U/L C-Reactive Protein (< or = 0.50) mg/dL Total Protein 6.9 (6.5-8.0) g/dL Albumin 2.8 L (3.5-5.0) g/dL COVID-19 (YANELIS) (Negative) COVID-19 Clin Com Influenza Type A (RICARDA) (Negative) Influenza Type B (RICARDA) (Negative) Influenza A & B Note 03/08/22 03/08/22 03/08/22 Range/Units 19:34 20:09 20:09 WBC (4.8-10.8) X10*3/uL RBC (4.60-5.80) X10*6/uL Hgb (14.0-18.0) g/dl Hct (42.0-52.0) % MCV (80.0-98.0) fL MCH (27.0-33.0) pg MCHC (31.0-36.0) g/dl RDW (11.0-16.0) % Plt Count (160-400) X10*3/uL MPV (9.4-12.4) fL Immature Gran % (Auto) (0.0-0.4) % Neut % (Auto) (45-73) % Lymph % (Auto) (20-40) % [place] % (Auto) (2-11) % Eos % (Auto) (0-4) % Baso % (Auto) (0-2) % Lymph # (Auto) (1.2-4.9) X10*3/uL [place] # (Auto) (0.1-1.2) X10*3/uL Eos # (Auto) (0.0-0.4) X10*3/uL Baso # (Auto) (0.0-0.2) X10*3/uL Abs Immat Gran (auto) (0.00-0.03) X10*3/uL Absolute Neuts (auto) (2.0-8.3) x10*3/uL Absolute Nucleated RBC (0.0-0.012) X10*3/uL Nucleated RBC % (auto) (0.0-0.2) /100WBC Sodium (135-145) mmol/L Potassium (3.3-5.1) mmol/L Chloride (96-108) mmol/L Carbon Dioxide (22-29) mmol/L Anion Gap (12-20) BUN (9-16) mg/dL Creatinine (0.5-1.4) mg/dL Estim Creat Clear Calc Estimated GFR POC Glucose (60-115) mg/dL Random Glucose (60-115) mg/dL Lactic Acid (0.5-2.0) mmol/L Calcium (8.4-10.2) mg/dL Magnesium (1.6-2.6) mg/dL Total Bilirubin (0.0-1.0) mg/dL AST (5-37) U/L ALT (0-40) U/L Alkaline Phosphatase (39-117) U/L C-Reactive Protein 18.75 H (< or = 0.50) mg/dL Total Protein (6.5-8.0) g/dL Albumin (3.5-5.0) g/dL COVID-19 (YANELIS) Negative (Negative) COVID-19 Clin Com See Note Influenza Type A (RICARDA) Positive A (Negative) Influenza Type B (RICARDA) Negative (Negative) Influenza A & B Note See Note 03/08/22 Range/Units 20:27 WBC (4.8-10.8) X10*3/uL RBC (4.60-5.80) X10*6/uL Hgb (14.0-18.0) g/dl Hct (42.0-52.0) % MCV (80.0-98.0) fL MCH (27.0-33.0) pg MCHC (31.0-36.0) g/dl RDW (11.0-16.0) % Plt Count (160-400) X10*3/uL MPV (9.4-12.4) fL Immature Gran % (Auto) (0.0-0.4) % Neut % (Auto) (45-73) % Lymph % (Auto) (20-40) % [place] % (Auto) (2-11) % Eos % (Auto) (0-4) % Baso % (Auto) (0-2) % Lymph # (Auto) (1.2-4.9) X10*3/uL [place] # (Auto) (0.1-1.2) X10*3/uL Eos # (Auto) (0.0-0.4) X10*3/uL Baso # (Auto) (0.0-0.2) X10*3/uL Abs Immat Gran (auto) (0.00-0.03) X10*3/uL Absolute Neuts (auto) (2.0-8.3) x10*3/uL Absolute Nucleated RBC (0.0-0.012) X10*3/uL Nucleated RBC % (auto) (0.0-0.2) /100WBC Sodium (135-145) mmol/L Potassium (3.3-5.1) mmol/L Chloride (96-108) mmol/L Carbon Dioxide (22-29) mmol/L Anion Gap (12-20) BUN (9-16) mg/dL Creatinine (0.5-1.4) mg/dL Estim Creat Clear Calc Estimated GFR POC Glucose 39 L* (60-115) mg/dL Random Glucose (60-115) mg/dL Lactic Acid (0.5-2.0) mmol/L Calcium (8.4-10.2) mg/dL Magnesium (1.6-2.6) mg/dL Total Bilirubin (0.0-1.0) mg/dL AST (5-37) U/L ALT (0-40) U/L Alkaline Phosphatase (39-117) U/L C-Reactive Protein (< or = 0.50) mg/dL Total Protein (6.5-8.0) g/dL Albumin (3.5-5.0) g/dL COVID-19 (YANELIS) (Negative) COVID-19 Clin Com Influenza Type A (RICARDA) (Negative) Influenza Type B (RICARDA) (Negative) Influenza A & B Note Critical Care Time Critical Care Time Critical Care Time: Yes Total Critical Care Time: 35 Attestation: I attest to this time spent taking care of the patient, obtaining history, physical, reviewing labs, imaging, speaking to my attending Discharge Plan Discharge Clinical Impression: Cellulitis, Delayed surgical wound healing, Acute on chronic kidney failure, Influenza A Patient Disposition: Admitted As Inpatient
[2022-03-08 18:25] VITALS: BP 158/72; PULSE 78; O2SAT 98
[2022-03-08 18:29] VITALS: BP 143/83; PULSE 75; RESP 18; TEMP 38.5; O2SAT 98; BMI 28.8
[2022-03-08] MEDS: Morphine Sulfate 4 MG/ML CARTRIDGE IVPUSH ×2 (18:42→23:57)
[2022-03-08] MEDS: Acetaminophen 325 MG TABLET 975 MG PO (18:42)
--- NOTE | 2022-03-08 19:38 | PC.NURSE ---
I took over care of the pt at 1900. Pt is A&O in bed resting comfortably. Septic protocol packet was passed off from previous RN. Labs were being drawn by the tech at the time of interaction. Pt has no complaints at this time. Labs pending.
[2022-03-08 19:41] LABS: MANUAL DIFF FLAG NO
[2022-03-08 19:42] LABS: Basophils Percent Auto 0.1 % (0-2); Eosinophils Percent Auto 0.3 % (0-4); Hematocrit 21.8 % (42.0-52.0); Hemoglobin 7.1 g/dl (14.0-18.0); Imm Gran Abs Auto 0.06 X10*3/uL (0.00-0.03); Imm Gran Pct Auto 0.5 % (0.0-0.4); Lymphocytes Absolute Auto 1.2 X10*3/uL (1.2-4.9); Mean Corpuscular HGB Conc 32.6 g/dl (31.0-36.0); Mean Corpuscular Hemoglobin 29.3 pg (27.0-33.0); Mean Corpuscular Volume 90.1 fL (80.0-98.0); Mean Platelet Volume 9.2 fL (9.4-12.4); Monocytes Absolute Auto 1.3 X10*3/uL (0.1-1.2); Monocytes Percent Auto 10.5 % (2-11); Neutrophils Absolute Auto 9.6 x10*3/uL (2.0-8.3); Neutrophils Percent Auto 78.6 % (45-73); Platelet Count 270 X10*3/uL (160-400); Red Blood Count 2.42 X10*6/uL (4.60-5.80); White Blood Count 12.2 X10*3/uL (4.8-10.8)
[2022-03-08 19:59] LABS: Lactic Acid 0.6 mmol/L (0.5-2.0)
[2022-03-08 20:00] LABS: C Reactive Protein 18.75 mg/dL (< or = 0.50)
[2022-03-08 20:05] LABS: Alanine Aminotransferase 41 U/L (0-40); Albumin Level 2.8 g/dL (3.5-5.0); Alkaline Phosphatase 100 U/L (39-117); Anion Gap 14 (12-20); Aspartate Amino Transferase 58 U/L (5-37); Bilirubin Total 0.3 mg/dL (0.0-1.0); Blood Urea Nitrogen 44 mg/dL (9-16); Calcium 8.3 mg/dL (8.4-10.2); Carbon Dioxide 22 mmol/L (22-29); Chloride 102 mmol/L (96-108); Creatinine Clr Calc Pharmacy 41.6; Estimated Glomerular Filt Rate 37; Glucose Random 45 mg/dL (60-115); Magnesium 1.5 mg/dL (1.6-2.6); Potassium 4.6 mmol/L (3.3-5.1); Sodium 133 mmol/L (135-145); Total Protein 6.9 g/dL (6.5-8.0)
[2022-03-08] MEDS: Glucose Gel 15 GM GEL..GRAM. PO (20:11)
[2022-03-08 20:28] LABS: COVID-19 Test Negative (Negative)
[2022-03-08 20:29] LABS: IDNOW Serial# 55D5AD1C; Influenza A Positive (Negative); Influenza B2 Negative (Negative)
[2022-03-08 20:36] LABS: Glucose, Whole Blood 39 mg/dL (60-115)
[2022-03-08] MEDS: Dextrose 5 % and 0.9 % NaCl 1,000 ML 100 ML IVCONT (20:51)
[2022-03-08] MEDS: Piperacillin Sodium/Tazobactam 3.375 GM in 0.9 % Sodium Chloride 50 ML IV (20:58)
[2022-03-08 21:12] LABS: Erythrocyte Sedimentation Rate > 140 MM/HR (0-15)
[2022-03-08 21:22] LABS: Appearance Urine Clear; Color Urine Yellow; Glucose Urine UA Negative (Negative); Leukocyte Esterase Urine Negative (Negative); Nitrite Urine Negative (Negative); PH 5.5 (5.0-9.0); Specific Gravity - Urine 1.015 (1.005-1.025); UMIC TRIGGER UACC YES; Urine Blood Negative (Negative); Urine Ketones Negative (Negative); Urine Protein 300 (3+) mg/dL (Neg-Trace)
[2022-03-08 21:30] LABS: Bacteria Urine None Seen (None Seen); Hyaline Casts Urine 0-2 /LPF (0-2); RBC Urine 0-2 /HPF (0-2); Squamous Epithelial Cell Urine 0-2 /HPF (0-2); WBC Urine 0-5 /HPF (0-5)
[2022-03-08 21:48] LABS: Glucose, Whole Blood 81 mg/dL (60-115)
--- NOTE | 2022-03-08 22:11 | PM.IMHP ---
History of Present Illness Date of Service: 03/08/22 Chief Complaint: low sugars 67-year-old male with past medical history of diabetes, CKD, HLD, HTN, peripheral vascular disease, history of CHF, presents the hospital with complaints of low sugar readings. Patient reports that for the past 3 4 days he has had low oral intake, has continued to take his insulin, on checking his sugars today he was hypoglycemic therefore decided to come to the hospital. of note patient underwent left great toe amputation on 01/25, which continue to remain on healing, after that he had undergone diagnostic angiogram and subsequent left transmetatarsal amputation on 02/06. He was seen by Dr. Topete 03/06 for slow healing wound, as well as pain in his wound pt was taking augmentin for the wound which as ocntinued. today he reports significant 10/10 pain although reports that the wound itself looks better and he does not feel that there is any drainage or infection. Patient denies any headache, dizziness, no abdominal pain nausea or vomiting, no diarrhea constipation, no urinary symptoms. On arrival to the ED patient hemodynamically stable with no significant abnormal vitals except a temperature of 101.3 degrees Labs are significant for WBC count of 12.2, hemoglobin of 7.1 with dropped from 8.8 on February 13 , ESR of >140 which increased from previous, CRP of 18, creatinine of 1.84 which is close to his baseline,glucose found to be in the 40s, patient placed on d5 with improvement of his glucose found to be influenza A positive chest x-ray shows mild cardiomegaly with no acute process foot x-ray shows transmetatarsal amputation, suggest soft tissue wound along the medial aspect of the amputation stump overlying the base of the 1st metatarsal, dorsal soft tissue swelling patient started on IV antibiotics and will be admitted for f for further management Review of Systems Review of Systems: Yes all other systems are reviewed and are negative [facility] Medical History Diabetes High cholesterol HTN (hypertension) Hyperlipidemia associated with type 2 diabetes mellitus Kidney disease Type 2 diabetes mellitus Family History Other No family history of coronary artery disease Surgical History H/O shoulder surgery History of amputation of right forefoot Hx of amputation Social History Household Members: None Housing: Apartment Do you presently have visiting nurse or other home services: Yes Alcohol intake: never Patient Tobacco Use Status: Former Tobacco user Quit Date: >20yr ago Tobacco use type: Cigarette Smoked in Last 30 Days: No Substance Use Type: Crack/Cocaine Advance Directives: Yes Advance Directives on File: Yes Advance Directives Date on File: 02/02/22 service: No Current occupational status: retired Meds Allergies Allergy/AdvReac Type Severity Reaction Status Date / Time No Known Allergies Allergy Verified 03/06/22 10:15 [No Known Allergies*] Active Medications: Current Medications Dextrose/Sodium Chloride (D5ns) 1,000 mls @ 100 mls/hr IVCONT .Q10H ANNABELLA Last Admin: 03/08/22 20:51 Dose: 100 mls/hr Vancomycin HCl 2,000 mg/ (Sodium Chloride) 540 mls @ 270 mls/hr IV ONCE ONE Stop: 03/08/22 22:59 Last Admin: 03/08/22 21:56 Dose: 270 mls/hr Pharmacy Consult (Consult Rx Vancomycin Dosing) 1 each MISCELLANE DAILY PRN PRN Reason: Consult order Pharmacy Consult (Consult Rx Perform Med Rec) 1 each MISCELLANE ONCE PRN PRN Reason: Consult order Home Medications Medication Instructions Recorded Confirmed Last Taken Type atorvastatin 80 mg tablet 80 mg PO DAILY 04/27/21 03/08/22 02/01/22 History fluticasone propionate 50 2 spray intranasal QAM PRN Nasal 04/27/21 03/08/22 02/01/22 History mcg/actuation nasal Congestion spray,suspension glipizide 10 mg tablet 20 mg PO BID 04/27/21 03/08/22 02/01/22 History metformin 1,000 mg tablet 1,000 mg PO BID 04/27/21 03/08/22 02/01/22 History metoprolol succinate 100 mg 100 mg PO DAILY 04/27/21 03/08/22 02/01/22 History tablet,extended release 24 hr sertraline 50 mg tablet 50 mg PO DAILY 04/27/21 03/08/22 02/01/22 History sitagliptin phosphate 100 mg 100 mg PO DAILY 04/27/21 03/08/22 02/01/22 History tablet (Januvia) povidone-iodine 10 % topical See Rx Instructions .Route .COMPLEX 12/28/21 03/08/22 02/01/22 History solution insulin degludec 100 unit/mL (3 25 unit subcut QPM 01/03/22 03/08/22 02/01/22 History mL) subcutaneous pen (Tresiba FlexTouch U-100 insulin) Physical Exam Vital Signs and Narrative: Vital Signs: Last Vital Signs Temp 101.3 F H 03/08/22 18:29 Pulse 75 03/08/22 18:29 Resp 18 03/08/22 18:29 BP 143/83 H 03/08/22 18:29 Pulse Ox 98 03/08/22 18:29 O2 Del Method 03/08/22 18:29 BMI result Body Mass Index 28.8 Const: General: cooperative and no acute distress Orientation/consciousness: patient oriented x3 Eyes: General: appearance normal, both eyes and all related structures Pupils: Equal, round and reactive pupils present Resp: Effort & Inspection: normal respiratory effort Auscultation: clear to auscultation bilaterally Cardio: Rate: regular rate Rhythm: regular rhythm GI: Palpation (GI): Soft to palpation Auscultation: normal bowel sounds Skin: Other: necrotic tissue at the stump of recent amputaiton no erythema, no warmth Neuro: General: patient oriented x3 Cranial nerves: Yes Equal, round and reactive pupils present Cognition (Neuro): normal cognition Extrem: Other: bilateral transmetatarsal left wound with necrotic tissue Results Labs CBC and Chem 7: 03/08/22 19:34 03/08/22 19:34 Labs: Laboratory Results - last 24 hr 03/08/22 03/08/22 03/08/22 19:34 19:34 19:34 MCV 90.1 MCH 29.3 MCHC 32.6 RDW 14.0 Plt Count 270 D MPV 9.2 L Immature Gran % (Auto) 0.5 H Neut % (Auto) 78.6 H Lymph % (Auto) 10.0 L Dawson % (Auto) 10.5 Eos % (Auto) 0.3 Baso % (Auto) 0.1 Lymph # (Auto) 1.2 Dawson # (Auto) 1.3 H Eos # (Auto) 0.0 Baso # (Auto) 0.0 Abs Immat Gran (auto) 0.06 H Absolute Neuts (auto) 9.6 H Absolute Nucleated RBC 0.000 Nucleated RBC % (auto) 0.0 ESR Anion Gap 14 Estim Creat Clear Calc 41.6 Estimated GFR 37 POC Glucose Random Glucose 45 L* Lactic Acid 0.6 Calcium 8.3 L Magnesium 1.5 L Total Bilirubin 0.3 AST 58 H ALT 41 H Alkaline Phosphatase 100 D C-Reactive Protein Total Protein 6.9 Albumin 2.8 L Urine Color Urine Appearance Urine pH Ur Specific Maceo Urine Protein Urine Glucose (UA) Urine Ketones Urine Blood Urine Nitrite Ur Leukocyte Esterase Urine RBC Urine WBC Ur Squamous Epith Cells Urine Bacteria Hyaline Casts COVID-19 (YANELIS) COVID-19 Clin Com Influenza Type A (RICARDA) Influenza Type B (RICARDA) Influenza A & B Note 03/08/22 03/08/22 03/08/22 19:34 19:34 20:09 MCV MCH MCHC RDW Plt Count MPV Immature Gran % (Auto) Neut % (Auto) Lymph % (Auto) Dawson % (Auto) Eos % (Auto) Baso % (Auto) Lymph # (Auto) Dawson # (Auto) Eos # (Auto) Baso # (Auto) Abs Immat Gran (auto) Absolute Neuts (auto) Absolute Nucleated RBC Nucleated RBC % (auto) ESR > 140 H Anion Gap Estim Creat Clear Calc Estimated GFR POC Glucose Random Glucose Lactic Acid Calcium Magnesium Total Bilirubin AST ALT Alkaline Phosphatase C-Reactive Protein 18.75 H Total Protein Albumin Urine Color Urine Appearance Urine pH Ur Specific Maceo Urine Protein Urine Glucose (UA) Urine Ketones Urine Blood Urine Nitrite Ur Leukocyte Esterase Urine RBC Urine WBC Ur Squamous Epith Cells Urine Bacteria Hyaline Casts COVID-19 (YANELIS) COVID-19 Clin Com Influenza Type A (RICARDA) Positive A Influenza Type B (RICARDA) Negative Influenza A & B Note See Note 03/08/22 03/08/22 03/08/22 20:09 20:27 21:10 MCV MCH MCHC RDW Plt Count MPV Immature Gran % (Auto) Neut % (Auto) Lymph % (Auto) Dawson % (Auto) Eos % (Auto) Baso % (Auto) Lymph # (Auto) Dawson # (Auto) Eos # (Auto) Baso # (Auto) Abs Immat Gran (auto) Absolute Neuts (auto) Absolute Nucleated RBC Nucleated RBC % (auto) ESR Anion Gap Estim Creat Clear Calc Estimated GFR POC Glucose 39 L* 81 Random Glucose Lactic Acid Calcium Magnesium Total Bilirubin AST ALT Alkaline Phosphatase C-Reactive Protein Total Protein Albumin Urine Color Urine Appearance Urine pH Ur Specific Maceo Urine Protein Urine Glucose (UA) Urine Ketones Urine Blood Urine Nitrite Ur Leukocyte Esterase Urine RBC Urine WBC Ur Squamous Epith Cells Urine Bacteria Hyaline Casts COVID-19 (YANELIS) Negative COVID-19 Clin Com See Note Influenza Type A (RICARDA) Influenza Type B (RICARDA) Influenza A & B Note 03/08/22 21:16 MCV MCH MCHC RDW Plt Count MPV Immature Gran % (Auto) Neut % (Auto) Lymph % (Auto) Dawson % (Auto) Eos % (Auto) Baso % (Auto) Lymph # (Auto) Dawson # (Auto) Eos # (Auto) Baso # (Auto) Abs Immat Gran (auto) Absolute Neuts (auto) Absolute Nucleated RBC Nucleated RBC % (auto) ESR Anion Gap Estim Creat Clear Calc Estimated GFR POC Glucose Random Glucose Lactic Acid Calcium Magnesium Total Bilirubin AST ALT Alkaline Phosphatase C-Reactive Protein Total Protein Albumin Urine Color Yellow Urine Appearance Clear Urine pH 5.5 Ur Specific Maceo 1.015 Urine Protein 300 (3+) H Urine Glucose (UA) Negative Urine Ketones Negative Urine Blood Negative Urine Nitrite Negative Ur Leukocyte Esterase Negative Urine RBC 0-2 Urine WBC 0-5 Ur Squamous Epith Cells 0-2 Urine Bacteria None Seen Hyaline Casts 0-2 COVID-19 (YANELIS) COVID-19 Clin Com Influenza Type A (RICARDA) Influenza Type B (RICARDA) Influenza A & B Note Imaging Radiologist's Impressions: Impressions Foot X-Ray 03/08/22 18:37 IMPRESSION: 1. Status post transmetatarsal amputation. Suggestion of a soft tissue wound along the medial aspect of the amputation stump overlying the base of the first metatarsal. Correlate clinically. No radiographic evidence of advanced acute osteomyelitis. 2. Dorsal soft tissue swelling. Chest X-Ray 03/08/22 20:53 IMPRESSION: Mild cardiomegaly. No acute process seen. Assessment and Plan (1) Status post transmetatarsal amputation of left foot: Status: Acute (2) Delayed surgical wound healing: Status: Acute (3) Influenza A: Status: Acute (4) Hypoglycemia: Status: Acute (5) Acute on chronic anemia: Status: Acute Plan 67-year-old male with recent transmetatarsal amputation of left foot presents to the hospital with complaints hyperglycemia as well as pain in left wound # hypoglycemia - likely secondary to taking insulin with low oral intake - started on D5 - follow POC q.2 hours - treat with p.r.n. D50 as needed - hold insulin # status post transmetatarsal amputation of left foot with delayed surgical wound healing - patient has elevated ESR, CRP, as well as pain - afebrile, has leukocytosis - will treat with IV antibiotic - although cultures - MRI of the left foot - infectious disease consult, vascular surgery consult # acute on chronic anemia - patient denies any melena, no bright red blood per rectum - patient refused MARIELOS to stool sample - will transfuse with 1 unit of prbc - follow cbc # influenza a infection - no hypoxia - chest x-ray with no acute findings - Tamiflu # CHF - not in exacerbation - continue home furosemide # hyperlipidemia - continue statin DVT prophylaxis: Heparin subQ given patient's hypoglycemia, as well as surgical wound [facility] Time Spent With Patient Time: Total time managing care of this patient today ____ minutes. Quality Stroke Does the patient have a stroke diagnosis?: No VTE Prior VTE?: No VTE Risk Level:: Medical - moderate - high VTE Device Contraindication: N/A - Device Ordered VTE Drug Contraindication: Treatment Not Indicated
--- NOTE | 2022-03-08 22:28 | PHA.PROG ---
Admission Date/Time: March 08, 2022 22:07 Indication: other Weight in k.183 kg Adjusted body weight in Kg: Yoder body weight in Kg: Obesity Dosing Indication % IBW: Serum Creatinine - Last 168 Hours 03/08/22 19:34 Creatinine 1.84 H Estimated CrCl and GFR - Last 168 Hours 03/08/22 19:34 Estim Creat Clear Calc 41.6 Estimated GFR 37 Vancomycin Loading Dose: 2000mg Current Vancomycin Dosing Regimen: 1000mg q24h Vancomycin Monitoring using AUC goal of 400 - 600 range with trough as surrogate marker: auc 464 trough 14.8 Date and Time for next Vancomycin Level to be drawn: 03/10 @1999 Pharmacist Comments on Vancomycin Plan: Vancomycin dosing will take advantage of [employer] as a clinical decision support tool that uses Bayesian modeling to calculate individual patient's pharmacokinetic parameters and forecast the patient's drug concentration time course with the target goal AUC 24 range of 400 - 600 mg/L/hr.
[2022-03-08] MEDS: Oseltamivir Phosphate 30 MG CAPSULE PO (22:38)
[2022-03-08] MEDS: Magnesium Sulfate/H2O 2 GM/50 ML PIGGYBACK IV (22:57)
--- NOTE | 2022-03-08 23:57 | PC.NURSE ---
Verbal order from Dr Cordero for 4mg morphine IV push. Medication administered at 23:58. Dr Cordero is not at a computer, it will be documented in MAR when she is able
[2022-03-09] VITALS (9 sets, daily range): BP systolic 136–170; BP diastolic 54–74; PULSE 71–80; RESP 16–18; TEMP 36.7–37.3; O2SAT 93–98
[2022-03-09] MEDS: Acetaminophen 325 MG TABLET 650 MG PO ×2 (02:37→12:40)
[2022-03-09 02:38] LABS: Ferritin 2322 ng/mL (20-250)
[2022-03-09 03:57] LABS: Glucose, Whole Blood 76 mg/dL (60-115)
[2022-03-09] MEDS: Morphine Sulfate 4 MG/ML CARTRIDGE IVPUSH ×4 (03:59→19:38)
[2022-03-09 07:09] LABS: Glucose, Whole Blood 82 mg/dL (60-115)
--- NOTE | 2022-03-09 07:15 | PHA.MEDREC ---
Pharmacy Consult ? Medication Reconciliation Pharmacy has completed the medication reconciliation.
[2022-03-09 07:19] LABS: MANUAL DIFF FLAG NO
[2022-03-09 07:24] LABS: Basophils Percent Auto 0.2 % (0-2); Eosinophils Absolute Auto 0.1 X10*3/uL (0.0-0.4); Eosinophils Percent Auto 0.9 % (0-4); Hematocrit 26.6 % (42.0-52.0); Hemoglobin 8.5 g/dl (14.0-18.0); Imm Gran Abs Auto 0.06 X10*3/uL (0.00-0.03); Imm Gran Pct Auto 0.5 % (0.0-0.4); Lymphocytes Absolute Auto 0.9 X10*3/uL (1.2-4.9); Lymphocytes Percent Auto 7.3 % (20-40); Mean Corpuscular Hemoglobin 28.9 pg (27.0-33.0); Mean Corpuscular Volume 90.5 fL (80.0-98.0); Mean Platelet Volume 9.2 fL (9.4-12.4); Monocytes Absolute Auto 1.3 X10*3/uL (0.1-1.2); Monocytes Percent Auto 9.9 % (2-11); Neutrophils Absolute Auto 10.4 x10*3/uL (2.0-8.3); Neutrophils Percent Auto 81.2 % (45-73); Platelet Count 274 X10*3/uL (160-400); Red Blood Count 2.94 X10*6/uL (4.60-5.80); Red Cell Distribution Width 14.2 % (11.0-16.0); White Blood Count 12.8 X10*3/uL (4.8-10.8)
[2022-03-09 07:58] LABS: Anion Gap 14 (12-20); Blood Urea Nitrogen 40 mg/dL (9-16); Calcium 8.7 mg/dL (8.4-10.2); Carbon Dioxide 21 mmol/L (22-29); Chloride 105 mmol/L (96-108); Estimated Glomerular Filt Rate 39; Glucose Random 77 mg/dL (60-115); Potassium 5.6 mmol/L (3.3-5.1); Sodium 134 mmol/L (135-145)
--- NOTE | 2022-03-09 08:15 | PC.NURSE ---
called pharmacy for cefapime
[2022-03-09 09:28] LABS: Glucose, Whole Blood 107 mg/dL (60-115)
[2022-03-09] MEDS: cefEPime HCl 2 GM in 0.9 % Sodium Chloride 50 ML IV ×2 (09:33→20:21)
[2022-03-09] MEDS: Metoprolol Succinate ER 100 MG TAB.ER.24H PO (09:34)
[2022-03-09] MEDS: Oseltamivir Phosphate 30 MG CAPSULE PO ×2 (09:34→20:22)
[2022-03-09] MEDS: Sertraline HCL 50 MG TABLET PO (09:34)
[2022-03-09] MEDS: Isosorbide Mononitrate 60 MG TAB.ER.24H PO (09:34)
[2022-03-09] MEDS: hydrALAZINE HCl 50 MG TABLET 100 MG PO ×3 (09:34→20:22)
[2022-03-09] MEDS: Atorvastatin Calcium 80 MG TABLET PO (09:34)
--- NOTE | 2022-03-09 10:34 | PM.CNGS ---
History of Present Illness Consult details Consult date: 03/09/22 Narrative: 67-year-old gentleman well known to me status post transmetatarsal amputation of the left foot. He had seen me in the hospital and had increased pain. Overall there has been poor healing of it but it has been healing. He presented to the emergency room with hypoglycemia and acute on chronic anemia. He now presents for vascular evaluation. Review of Systems Review of Systems: Yes all other systems are reviewed and are negative Constitutional: Constitutional: Reports no additional constitutional complaints ENT: Reports Normal hearing present Cardiovascular: Cardiovascular: Denies chest pain, Denies chest pain at rest, Denies chest pain with activity and Denies pedal edema Respiratory: Respiratory: Denies cough Gastrointestinal: Gastrointestinal: Denies abdominal pain Musculoskeletal: Musculoskeletal: Denies abnormal gait, Denies muscle cramps and Denies radiating pain into limb Integumentary/Breasts: Skin/Breast: Denies skin ulcer and Denies wounds Neurologic: Reports Normal hearing present and Denies abnormal gait Psychiatric: Psychiatric: Reports no additional psychiatric complaints PMFSH Past Medical History Medical History Diabetes High cholesterol HTN (hypertension) Hyperlipidemia associated with type 2 diabetes mellitus Kidney disease Type 2 diabetes mellitus Family History Family History Other No family history of coronary artery disease Surgical History Surgical History H/O shoulder surgery History of amputation of right forefoot Hx of amputation Social History Social History Household Members: None Housing: Apartment Do you presently have visiting nurse or other home services: Yes Alcohol intake: never Patient Tobacco Use Status: Former Tobacco user Quit Date: >20yr ago Tobacco use type: Cigarette Smoked in Last 30 Days: No Substance Use Type: Crack/Cocaine Advance Directives: Yes Advance Directives on File: Yes Advance Directives Date on File: 02/02/22 service: No Current occupational status: retired Meds Allergies Allergy/AdvReac Type Severity Reaction Status Date / Time No Known Allergies Allergy Verified 03/06/22 10:15 [No Known Allergies*] Active Medications: Current Medications Acetaminophen (Acetaminophen 325 Mg Tablet) 650 mg PO Q6H PRN PRN Reason: Pain, Mild (Pain Scale 1-3) Last Admin: 03/09/22 02:37 Dose: 650 mg Amlodipine Besylate (Amlodipine Besylate 10 Mg Tablet) 10 mg PO DAILY@1700 ANNABELLA; Protocol Atorvastatin Calcium (Atorvastatin Calcium 80 Mg Tablet) 80 mg PO DAILY [facility] Last Admin: 03/09/22 09:34 Dose: 80 mg Dextrose (Dextrose 50 % 25 Gm/50 Ml Syringe) 25 gm IVPUSH Q15M PRN; Protocol PRN Reason: per Hypoglycemia Standing Ord. Hydralazine HCl (Hydralazine Hcl 50 Mg Tablet) 100 mg PO TID [facility]; Protocol Last Admin: 03/09/22 09:34 Dose: 100 mg Dextrose/Sodium Chloride (D5ns) 1,000 mls @ 100 mls/hr IVCONT .Q10H [facility] Last Infusion: 03/09/22 08:16 Dose: Infused Vancomycin HCl 1,000 mg/ (Sodium Chloride) 270 mls @ 270 mls/hr IV Q24H ANNABELLA Cefepime HCl 2 gm/ Sodium (Chloride) 50 mls @ 100 mls/hr IV Q12H [facility] Last Admin: 03/09/22 09:33 Dose: 100 mls/hr Isosorbide Mononitrate (Isosorbide Mononitrate 60 Mg Tab.Er.24h) 60 mg PO DAILY [facility]; Protocol Last Admin: 03/09/22 09:34 Dose: 60 mg Metoprolol Succinate (Metoprolol Succinate Er 100 Mg Tab.Er.24h) 100 mg PO DAILY [facility]; Protocol Last Admin: 03/09/22 09:34 Dose: 100 mg Morphine Sulfate (Morphine Sulfate 4 Mg/Ml Cartridge) 4 mg IVPUSH Q4H PRN; Protocol PRN Reason: Pain, Severe (Pain Scale 7-10) Last Admin: 03/09/22 08:18 Dose: 4 mg Ondansetron HCl (Ondansetron Hcl 4 Mg/2 Ml Vial) 4 mg IVPUSH Q8H PRN PRN Reason: Nausea and Vomiting Oseltamivir Phosphate (Oseltamivir Phosphate 30 Mg Capsule) 30 mg PO BID [facility] Last Admin: 03/09/22 09:34 Dose: 30 mg Pharmacy Consult (Consult Rx Vancomycin Dosing) 1 each MISCELLANE DAILY PRN PRN Reason: Consult order Pharmacy Consult (Consult Rx Perform Med Rec) 1 each MISCELLANE ONCE PRN PRN Reason: Consult order Sertraline HCl (Sertraline Hcl 50 Mg Tablet) 50 mg PO DAILY [facility] Last Admin: 03/09/22 09:34 Dose: 50 mg Sodium Chloride (0.9 % Sodium Chloride Flush 3 Ml Syringe) 3 ml IVFLUSH QSHIFT [facility] Last Admin: 03/09/22 08:05 Dose: Not Given Tamsulosin HCl (Tamsulosin Hcl 0.4 Mg Capsule) 0.4 mg PO BEDTIME [facility] Home Medications Medication Instructions Recorded Confirmed Last Taken Type atorvastatin 80 mg tablet 80 mg PO DAILY 04/27/21 03/08/22 02/01/22 History fluticasone propionate 50 2 spray intranasal QAM PRN Nasal 04/27/21 03/08/22 02/01/22 History mcg/actuation nasal Congestion spray,suspension glipizide 10 mg tablet 20 mg PO BID 04/27/21 03/08/22 02/01/22 History metformin 1,000 mg tablet 1,000 mg PO BID 04/27/21 03/08/22 02/01/22 History metoprolol succinate 100 mg 100 mg PO DAILY 04/27/21 03/08/22 02/01/22 History tablet,extended release 24 hr sertraline 50 mg tablet 50 mg PO DAILY 04/27/21 03/08/22 02/01/22 History sitagliptin phosphate 100 mg 100 mg PO DAILY 04/27/21 03/08/22 02/01/22 History tablet (Januvia) povidone-iodine 10 % topical See Rx Instructions .Route .COMPLEX 12/28/21 03/08/22 02/01/22 History solution insulin degludec 100 unit/mL (3 25 unit subcut QPM 01/03/22 03/08/22 02/01/22 History mL) subcutaneous pen (Tresiba FlexTouch U-100 insulin) Physical Exam Vital Signs: Vital Signs: Last Vital Signs Temp 98.2 F 03/09/22 07:11 Pulse 75 03/09/22 07:11 Resp 16 03/09/22 07:11 BP 170/67 H 03/09/22 07:11 Pulse Ox 96 03/09/22 07:11 O2 Del Method 03/09/22 07:11 BMI result Body Mass Index 28.8 Const: General: cooperative, healthy appearing and comfortable Orientation/consciousness: oriented to person, oriented to place and oriented to time HEENT: Head: Yes normal to inspection Neck: Neck: Yes normal visual inspection Carotids: no bruits Chest: Chest palpation & inspection: normal inspection of the chest Resp: Effort & Inspection: normal respiratory effort and able to speak in complete sentences Auscultation: clear to auscultation bilaterally, no crackles, no rales, no rhonchi and no wheezes Cardio: Rate: regular rate Rhythm: regular rhythm Heart sounds: S1 normal heart sound present and S2 normal heart sound present Bruits: no carotid bruits Peripheral pulses: Peripheral pulses 2+ throughout GI: Inspection: Yes normal to inspection Skin: Other: Left trans met nearly 50% take. There is a central wedge which looks dry but it does seem that there is underlying good granulation tissue. Wounds: amputation site Hair: normal Neuro: General: oriented to person, oriented to place and oriented to time Cranial nerves: Yes CN's II-XII intact bilaterally and Yes Normal hearing present Cognition (Neuro): normal cognition Motor exam (neuro): 5/5 motor strength present throughout Extrem: Other: venous exam: No significant superficial varicosities or spider telangiectasias, minimal edema General: No clubbing, No cyanosis and No edema Psych: Appearance: grossly normal Mental Status: mental status grossly normal Speech and movement: Normal speech and movement present Results Labs Result diagrams: 03/09/22 07:07 03/09/22 07:07 Labs: Abnormal lab results 03/08/22 03/08/22 03/08/22 Range/Units 19:34 19:34 19:34 WBC 12.2 H (4.8-10.8) X10*3/uL RBC 2.42 L D (4.60-5.80) X10*6/uL Hgb 7.1 L (14.0-18.0) g/dl Hct 21.8 L (42.0-52.0) % MPV 9.2 L (9.4-12.4) fL Immature Gran % (Auto) 0.5 H (0.0-0.4) % Neut % (Auto) 78.6 H (45-73) % Lymph % (Auto) 10.0 L (20-40) % Lymph # (Auto) (1.2-4.9) X10*3/uL [place] # (Auto) 1.3 H (0.1-1.2) X10*3/uL Abs Immat Gran (auto) 0.06 H (0.00-0.03) X10*3/uL Absolute Neuts (auto) 9.6 H (2.0-8.3) x10*3/uL ESR > 140 H (0-15) MM/HR Sodium 133 L (135-145) mmol/L Potassium (3.3-5.1) mmol/L Carbon Dioxide (22-29) mmol/L BUN 44 H D (9-16) mg/dL Creatinine 1.84 H (0.5-1.4) mg/dL POC Glucose (60-115) mg/dL Random Glucose 45 L* (60-115) mg/dL Calcium 8.3 L (8.4-10.2) mg/dL Magnesium 1.5 L (1.6-2.6) mg/dL Ferritin (20-250) ng/mL AST 58 H (5-37) U/L ALT 41 H (0-40) U/L C-Reactive Protein (< or = 0.50) mg/dL Albumin 2.8 L (3.5-5.0) g/dL Urine Protein (Neg-Trace) mg/dL Influenza Type A (RICARDA) (Negative) Crossmatch 03/08/22 03/08/22 03/08/22 Range/Units 19:34 20:09 20:27 WBC (4.8-10.8) X10*3/uL RBC (4.60-5.80) X10*6/uL Hgb (14.0-18.0) g/dl Hct (42.0-52.0) % MPV (9.4-12.4) fL Immature Gran % (Auto) (0.0-0.4) % Neut % (Auto) (45-73) % Lymph % (Auto) (20-40) % Lymph # (Auto) (1.2-4.9) X10*3/uL [place] # (Auto) (0.1-1.2) X10*3/uL Abs Immat Gran (auto) (0.00-0.03) X10*3/uL Absolute Neuts (auto) (2.0-8.3) x10*3/uL ESR (0-15) MM/HR Sodium (135-145) mmol/L Potassium (3.3-5.1) mmol/L Carbon Dioxide (22-29) mmol/L BUN (9-16) mg/dL Creatinine (0.5-1.4) mg/dL POC Glucose 39 L* (60-115) mg/dL Random Glucose (60-115) mg/dL Calcium (8.4-10.2) mg/dL Magnesium (1.6-2.6) mg/dL Ferritin (20-250) ng/mL AST (5-37) U/L ALT (0-40) U/L C-Reactive Protein 18.75 H (< or = 0.50) mg/dL Albumin (3.5-5.0) g/dL Urine Protein (Neg-Trace) mg/dL Influenza Type A (RICARDA) Positive A (Negative) Crossmatch 03/08/22 03/08/22 03/08/22 Range/Units 21:16 22:54 22:54 WBC (4.8-10.8) X10*3/uL RBC (4.60-5.80) X10*6/uL Hgb (14.0-18.0) g/dl Hct (42.0-52.0) % MPV (9.4-12.4) fL Immature Gran % (Auto) (0.0-0.4) % Neut % (Auto) (45-73) % Lymph % (Auto) (20-40) % Lymph # (Auto) (1.2-4.9) X10*3/uL [place] # (Auto) (0.1-1.2) X10*3/uL Abs Immat Gran (auto) (0.00-0.03) X10*3/uL Absolute Neuts (auto) (2.0-8.3) x10*3/uL ESR (0-15) MM/HR Sodium (135-145) mmol/L Potassium (3.3-5.1) mmol/L Carbon Dioxide (22-29) mmol/L BUN (9-16) mg/dL Creatinine (0.5-1.4) mg/dL POC Glucose (60-115) mg/dL Random Glucose (60-115) mg/dL Calcium (8.4-10.2) mg/dL Magnesium (1.6-2.6) mg/dL Ferritin 2322 H (20-250) ng/mL AST (5-37) U/L ALT (0-40) U/L C-Reactive Protein (< or = 0.50) mg/dL Albumin (3.5-5.0) g/dL Urine Protein 300 (3+) H (Neg-Trace) mg/dL Influenza Type A (RICARDA) (Negative) Crossmatch See Detail 03/09/22 03/09/22 Range/Units 07:07 07:07 WBC 12.8 H (4.8-10.8) X10*3/uL RBC 2.94 L D (4.60-5.80) X10*6/uL Hgb 8.5 L (14.0-18.0) g/dl Hct 26.6 L D (42.0-52.0) % MPV 9.2 L (9.4-12.4) fL Immature Gran % (Auto) 0.5 H (0.0-0.4) % Neut % (Auto) 81.2 H (45-73) % Lymph % (Auto) 7.3 L (20-40) % Lymph # (Auto) 0.9 L (1.2-4.9) X10*3/uL [place] # (Auto) 1.3 H (0.1-1.2) X10*3/uL Abs Immat Gran (auto) 0.06 H (0.00-0.03) X10*3/uL Absolute Neuts (auto) 10.4 H (2.0-8.3) x10*3/uL ESR (0-15) MM/HR Sodium 134 L (135-145) mmol/L Potassium 5.6 H D (3.3-5.1) mmol/L Carbon Dioxide 21 L (22-29) mmol/L BUN 40 H (9-16) mg/dL Creatinine 1.74 H (0.5-1.4) mg/dL POC Glucose (60-115) mg/dL Random Glucose (60-115) mg/dL Calcium (8.4-10.2) mg/dL Magnesium (1.6-2.6) mg/dL Ferritin (20-250) ng/mL AST (5-37) U/L ALT (0-40) U/L C-Reactive Protein (< or = 0.50) mg/dL Albumin (3.5-5.0) g/dL Urine Protein (Neg-Trace) mg/dL Influenza Type A (RICARDA) (Negative) Crossmatch Short CBC 03/08/22 03/09/22 Range/Units 19:34 07:07 WBC 12.2 H 12.8 H (4.8-10.8) X10*3/uL Hgb 7.1 L 8.5 L (14.0-18.0) g/dl Hct 21.8 L 26.6 L D (42.0-52.0) % Plt Count 270 D 274 (160-400) X10*3/uL BMP 03/08/22 03/09/22 19:34 07:07 Sodium 133 L 134 L Potassium 4.6 5.6 H D Chloride 102 105 Carbon Dioxide 22 21 L BUN 44 H D 40 H Creatinine 1.84 H 1.74 H Calcium 8.3 L 8.7 Liver Function 03/08/22 Range/Units 19:34 Total Bilirubin 0.3 (0.0-1.0) mg/dL AST 58 H (5-37) U/L ALT 41 H (0-40) U/L Alkaline Phosphatase 100 D (39-117) U/L Albumin 2.8 L (3.5-5.0) g/dL Urine 03/08/22 Range/Units 21:16 Urine Color Yellow Urine Appearance Clear Urine pH 5.5 (5.0-9.0) Ur Specific [place] 1.015 (1.005-1.025) Urine Protein 300 (3+) H (Neg-Trace) mg/dL Urine Glucose (UA) Negative (Negative) mg/dL All other labs normal. Assessment and Plan (1) PAD (peripheral artery disease): Status: Acute Plan In short patient has a slow to heal trans met amp. Pain has decreased. There is a 50% take of flap. At the current time I would like to manage this as conservatively as possible in the hopes that this will heal. Would allow his influenza and anemia to improve prior to any other intervention. Would continue with dry protective dressing of just a Kerlix wrap. If discharge this weekend he can follow up with us as an outpatient. Thank you for allowing us to assist in his care. If there are any questions or concerns please do not hesitate to contact us. Time Spent With Patient Time: Total time managing care of this patient today ____ minutes. Procedures Date of Service Date of Service: 03/09/22
[2022-03-09 11:44] LABS: Glucose, Whole Blood 144 mg/dL (60-115)
--- NOTE | 2022-03-09 11:50 | PC.NURSE ---
pt off unit to MRI
[2022-03-09] MEDS: Sodium Zirconium Cyclosilicate 5 GM POWD.PACK PO (12:41)
--- NOTE | 2022-03-09 13:16 | MHC.CM.PN ---
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
--- NOTE | 2022-03-09 13:39 | HO.PM.IMPN ---
Subjective Subjective Date of Service: 03/09/22 Interval History: seen and examined this morning follow up for hypoglycemia, influenza reports cough, no sob; denies fever or chills at this time Review of Systems Review of Systems: Yes all other systems are reviewed and are negative Constitutional Constitutional: Denies chills and Denies fever(s) Cardiovascular Cardiovascular: Denies chest pain, Denies palpitations and Denies dyspnea Respiratory Respiratory: Reports cough and Denies dyspnea Endocrine Endocrine: Denies palpitations Physical Exam Vital Signs: Vital Signs: Last Vital Signs Temp 98.2 F 03/09/22 07:11 Pulse 75 03/09/22 07:11 Resp 16 03/09/22 07:11 BP 170/67 H 03/09/22 07:11 Pulse Ox 96 03/09/22 07:11 O2 Del Method 03/09/22 07:11 BMI result Body Mass Index 28.8 Const: General: no acute distress, well developed, alert and awake Nutritional Appearance: average body habitus Orientation/consciousness: patient oriented x3 Resp: Effort & Inspection: normal respiratory effort and able to speak in complete sentences Auscultation: clear to auscultation bilaterally Cardio: Rate: regular rate Heart sounds: S1 normal heart sound present and S2 normal heart sound present GI: Inspection: No distended Palpation (GI): Soft to palpation and nontender Skin: Other: left foot stump. no fluctuance Neuro: General: patient oriented x3 and CN's II-XI intact bilaterally Extrem: Other: b/l transmetatarsal amputations General: Yes no pedal edema Objective Data Active Medications Acetaminophen (Acetaminophen 325 Mg Tablet) 650 mg PO Q6H PRN PRN Reason: Pain, Mild (Pain Scale 1-3) Last Admin: 03/09/22 12:40 Dose: 650 mg Documented By: ZULMA Amlodipine Besylate (Amlodipine Besylate 10 Mg Tablet) 10 mg PO DAILY@1700 [facility]; Protocol Atorvastatin Calcium (Atorvastatin Calcium 80 Mg Tablet) 80 mg PO DAILY [facility] Last Admin: 03/09/22 09:34 Dose: 80 mg Documented By: ZULMA Dextrose (Dextrose 50 % 25 Gm/50 Ml Syringe) 25 gm IVPUSH Q15M PRN; Protocol PRN Reason: per Hypoglycemia Standing Ord. Hydralazine HCl (Hydralazine Hcl 50 Mg Tablet) 100 mg PO TID [facility]; Protocol Last Admin: 03/09/22 09:34 Dose: 100 mg Documented By: ZULMA Dextrose/Sodium Chloride (D5ns) 1,000 mls @ 100 mls/hr IVCONT .Q10H [facility] Last Infusion: 03/09/22 08:16 Dose: 0 mls/hr Documented By: ZULMA Vancomycin HCl 1,000 mg/ (Sodium Chloride) 270 mls @ 270 mls/hr IV Q24H [facility] Cefepime HCl 2 gm/ Sodium (Chloride) 50 mls @ 100 mls/hr IV Q12H [facility] Last Infusion: 03/09/22 10:52 Dose: 0 mls/hr Documented By: ZULMA Isosorbide Mononitrate (Isosorbide Mononitrate 60 Mg Tab.Er.24h) 60 mg PO DAILY [facility]; Protocol Last Admin: 03/09/22 09:34 Dose: 60 mg Documented By: ZULMA Metoprolol Succinate (Metoprolol Succinate Er 100 Mg Tab.Er.24h) 100 mg PO DAILY [facility]; Protocol Last Admin: 03/09/22 09:34 Dose: 100 mg Documented By: ZULMA Morphine Sulfate (Morphine Sulfate 4 Mg/Ml Cartridge) 4 mg IVPUSH Q4H PRN; Protocol PRN Reason: Pain, Severe (Pain Scale 7-10) Last Admin: 03/09/22 12:40 Dose: 4 mg Documented By: ZULMA Ondansetron HCl (Ondansetron Hcl 4 Mg/2 Ml Vial) 4 mg IVPUSH Q8H PRN PRN Reason: Nausea and Vomiting Oseltamivir Phosphate (Oseltamivir Phosphate 30 Mg Capsule) 30 mg PO BID [facility] Last Admin: 03/09/22 09:34 Dose: 30 mg Documented By: ZULMA Pharmacy Consult (Consult Rx Vancomycin Dosing) 1 each MISCELLANE DAILY PRN PRN Reason: Consult order Pharmacy Consult (Consult Rx Perform Med Rec) 1 each MISCELLANE ONCE PRN PRN Reason: Consult order Sertraline HCl (Sertraline Hcl 50 Mg Tablet) 50 mg PO DAILY [facility] Last Admin: 03/09/22 09:34 Dose: 50 mg Documented By: ZULMA Sodium Chloride (0.9 % Sodium Chloride Flush 3 Ml Syringe) 3 ml IVFLUSH QSHIFT [facility] Last Admin: 03/09/22 08:05 Dose: Not Given Documented By: ZULMA Non-Admin Reason: IV Running Tamsulosin HCl (Tamsulosin Hcl 0.4 Mg Capsule) 0.4 mg PO BEDTIME [facility] Labs CBC & Chem 7: 03/09/22 07:07 03/09/22 07:07 Labs: Laboratory Results - last 24 hr 03/08/22 03/08/22 03/08/22 19:34 19:34 19:34 MCV 90.1 MCH 29.3 MCHC 32.6 RDW 14.0 Plt Count 270 D MPV 9.2 L Immature Gran % (Auto) 0.5 H Neut % (Auto) 78.6 H Lymph % (Auto) 10.0 L [place] % (Auto) 10.5 Eos % (Auto) 0.3 Baso % (Auto) 0.1 Lymph # (Auto) 1.2 [place] # (Auto) 1.3 H Eos # (Auto) 0.0 Baso # (Auto) 0.0 Abs Immat Gran (auto) 0.06 H Absolute Neuts (auto) 9.6 H Absolute Nucleated RBC 0.000 Nucleated RBC % (auto) 0.0 ESR Anion Gap 14 Estim Creat Clear Calc 41.6 Estimated GFR 37 POC Glucose Random Glucose 45 L* Lactic Acid 0.6 Calcium 8.3 L Magnesium 1.5 L Ferritin Total Bilirubin 0.3 AST 58 H ALT 41 H Alkaline Phosphatase 100 D C-Reactive Protein Total Protein 6.9 Albumin 2.8 L Urine Color Urine Appearance Urine pH Ur Specific Errol Urine Protein Urine Glucose (UA) Urine Ketones Urine Blood Urine Nitrite Ur Leukocyte Esterase Urine RBC Urine WBC Ur Squamous Epith Cells Urine Bacteria Hyaline Casts COVID-19 (YANELIS) COVID-19 Clin Com Influenza Type A (RICARDA) Influenza Type B (RICARDA) Influenza A & B Note Blood Type Antibody Screen Crossmatch 03/08/22 03/08/22 03/08/22 19:34 19:34 20:09 MCV MCH MCHC RDW Plt Count MPV Immature Gran % (Auto) Neut % (Auto) Lymph % (Auto) [place] % (Auto) Eos % (Auto) Baso % (Auto) Lymph # (Auto) [place] # (Auto) Eos # (Auto) Baso # (Auto) Abs Immat Gran (auto) Absolute Neuts (auto) Absolute Nucleated RBC Nucleated RBC % (auto) ESR > 140 H Anion Gap Estim Creat Clear Calc Estimated GFR POC Glucose Random Glucose Lactic Acid Calcium Magnesium Ferritin Total Bilirubin AST ALT Alkaline Phosphatase C-Reactive Protein 18.75 H Total Protein Albumin Urine Color Urine Appearance Urine pH Ur Specific Errol Urine Protein Urine Glucose (UA) Urine Ketones Urine Blood Urine Nitrite Ur Leukocyte Esterase Urine RBC Urine WBC Ur Squamous Epith Cells Urine Bacteria Hyaline Casts COVID-19 (YANELIS) COVID-19 Clin Com Influenza Type A (RICARDA) Positive A Influenza Type B (RICARDA) Negative Influenza A & B Note See Note Blood Type Antibody Screen Crossmatch 03/08/22 03/08/22 03/08/22 20:09 20:27 21:10 MCV MCH MCHC RDW Plt Count MPV Immature Gran % (Auto) Neut % (Auto) Lymph % (Auto) [place] % (Auto) Eos % (Auto) Baso % (Auto) Lymph # (Auto) [place] # (Auto) Eos # (Auto) Baso # (Auto) Abs Immat Gran (auto) Absolute Neuts (auto) Absolute Nucleated RBC Nucleated RBC % (auto) ESR Anion Gap Estim Creat Clear Calc Estimated GFR POC Glucose 39 L* 81 Random Glucose Lactic Acid Calcium Magnesium Ferritin Total Bilirubin AST ALT Alkaline Phosphatase C-Reactive Protein Total Protein Albumin Urine Color Urine Appearance Urine pH Ur Specific Errol Urine Protein Urine Glucose (UA) Urine Ketones Urine Blood Urine Nitrite Ur Leukocyte Esterase Urine RBC Urine WBC Ur Squamous Epith Cells Urine Bacteria Hyaline Casts COVID-19 (YANELIS) Negative COVID-19 Clin Com See Note Influenza Type A (RICARDA) Influenza Type B (RICARDA) Influenza A & B Note Blood Type Antibody Screen Crossmatch 03/08/22 03/08/22 03/08/22 21:16 22:54 22:54 MCV MCH MCHC RDW Plt Count MPV Immature Gran % (Auto) Neut % (Auto) Lymph % (Auto) [place] % (Auto) Eos % (Auto) Baso % (Auto) Lymph # (Auto) [place] # (Auto) Eos # (Auto) Baso # (Auto) Abs Immat Gran (auto) Absolute Neuts (auto) Absolute Nucleated RBC Nucleated RBC % (auto) ESR Anion Gap Estim Creat Clear Calc Estimated GFR POC Glucose Random Glucose Lactic Acid Calcium Magnesium Ferritin 2322 H Total Bilirubin AST ALT Alkaline Phosphatase C-Reactive Protein Total Protein Albumin Urine Color Yellow Urine Appearance Clear Urine pH 5.5 Ur Specific Errol 1.015 Urine Protein 300 (3+) H Urine Glucose (UA) Negative Urine Ketones Negative Urine Blood Negative Urine Nitrite Negative Ur Leukocyte Esterase Negative Urine RBC 0-2 Urine WBC 0-5 Ur Squamous Epith Cells 0-2 Urine Bacteria None Seen Hyaline Casts 0-2 COVID-19 (YANELIS) COVID-19 Clin Com Influenza Type A (RICARDA) Influenza Type B (RICARDA) Influenza A & B Note Blood Type O Positive Antibody Screen NEGATIVE Crossmatch See Detail 03/09/22 03/09/22 03/09/22 03:48 07:04 07:07 MCV MCH MCHC RDW Plt Count MPV Immature Gran % (Auto) Neut % (Auto) Lymph % (Auto) [place] % (Auto) Eos % (Auto) Baso % (Auto) Lymph # (Auto) [place] # (Auto) Eos # (Auto) Baso # (Auto) Abs Immat Gran (auto) Absolute Neuts (auto) Absolute Nucleated RBC Nucleated RBC % (auto) ESR Anion Gap 14 Estim Creat Clear Calc 44.0 Estimated GFR 39 POC Glucose 76 82 Random Glucose 77 D Lactic Acid Calcium 8.7 Magnesium Ferritin Total Bilirubin AST ALT Alkaline Phosphatase C-Reactive Protein Total Protein Albumin Urine Color Urine Appearance Urine pH Ur Specific Errol Urine Protein Urine Glucose (UA) Urine Ketones Urine Blood Urine Nitrite Ur Leukocyte Esterase Urine RBC Urine WBC Ur Squamous Epith Cells Urine Bacteria Hyaline Casts COVID-19 (YANELIS) COVID-19 Clin Com Influenza Type A (RICARDA) Influenza Type B (RICARDA) Influenza A & B Note Blood Type Antibody Screen Crossmatch 03/09/22 03/09/22 03/09/22 07:07 09:24 11:40 MCV 90.5 MCH 28.9 MCHC 32.0 RDW 14.2 Plt Count 274 MPV 9.2 L Immature Gran % (Auto) 0.5 H Neut % (Auto) 81.2 H Lymph % (Auto) 7.3 L [place] % (Auto) 9.9 Eos % (Auto) 0.9 Baso % (Auto) 0.2 Lymph # (Auto) 0.9 L [place] # (Auto) 1.3 H Eos # (Auto) 0.1 Baso # (Auto) 0.0 Abs Immat Gran (auto) 0.06 H Absolute Neuts (auto) 10.4 H Absolute Nucleated RBC 0.000 Nucleated RBC % (auto) 0.0 ESR Anion Gap Estim Creat Clear Calc Estimated GFR POC Glucose 107 144 H Random Glucose Lactic Acid Calcium Magnesium Ferritin Total Bilirubin AST ALT Alkaline Phosphatase C-Reactive Protein Total Protein Albumin Urine Color Urine Appearance Urine pH Ur Specific Errol Urine Protein Urine Glucose (UA) Urine Ketones Urine Blood Urine Nitrite Ur Leukocyte Esterase Urine RBC Urine WBC Ur Squamous Epith Cells Urine Bacteria Hyaline Casts COVID-19 (YANELIS) COVID-19 Clin Com Influenza Type A (RICARDA) Influenza Type B (RICARDA) Influenza A & B Note Blood Type Antibody Screen Crossmatch Assessment and Plan (1) Hypoglycemia: Status: Acute (2) Status post transmetatarsal amputation of left foot: Status: Acute (3) Influenza A: Status: Acute Plan 67-year-old male with recent transmetatarsal amputation of left foot presents to the hospital with complaints hyperglycemia as well as pain in left wound hypoglycemia likely secondary to taking insulin with low oral intake continue D5 follow POC q.2 hours until POCs stable treat with p.r.n. D50 as needed hold insulin status post transmetatarsal amputation of left foot with delayed surgical wound healing patient has elevated ESR, CRP, pain seems stable seen by vascular, not concerned for infection, does not need MRI; inflammatory markers elevated likely due to recent amputation infectious disease consult acute on chronic anemia denies any melena, no bright red blood per rectum s/p 1 unit of prbc with appropriate rise in H/H Hyperkalemia lokelma hold losartan, aldactone follow BMP CKD3 creatinine appears within baseline follow BMP influenza a infection no hypoxia chest x-ray with no acute findings continue Tamiflu CHF not in exacerbation continue home furosemide HTN hold losartan, aldactone for hyperkalemia continue metoprolol, hydralazine, isosorbide, amlodipine hyperlipidemia continue statin DVT prophylaxis: mechanical devices due to anemia PT eval for safe dispo given patient's hypoglycemia, as well as surgical wound patient will require minimum[facility] nights [facility] health hospital stay for IV antibiotic Time Spent With Patient Time: Total time managing care of this patient today ____ minutes. Quality Stroke Does the patient have a stroke diagnosis?: No VTE Prior VTE?: No VTE Risk Level:: Medical - moderate - high VTE Device Contraindication: N/A - Device Ordered VTE Drug Contraindication: Treatment Not Indicated
[2022-03-09 14:00] LABS: Glucose, Whole Blood 118 mg/dL (60-115)
[2022-03-09 15:32] LABS: Folate 12.7 ng/mL (> or = 4.0); Vitamin B12 334 pg/mL (200-900)
[2022-03-09 16:14] LABS: Glucose, Whole Blood 250 mg/dL (60-115)
[2022-03-09] MEDS: amLODIPine Besylate 10 MG TABLET PO (16:58)
[2022-03-09] MEDS: Dextrose 5 % and 0.9 % NaCl 1,000 ML 100 ML IVCONT (16:58)
[2022-03-09 18:00] LABS: Glucose, Whole Blood 289 mg/dL (60-115)
[2022-03-09] MEDS: oxyCODONE HCl Immed Release 5 MG TABLET PO (19:38)
--- NOTE | 2022-03-09 19:56 | PC.NURSE ---
Assumed care of pt. at 1900. Pt. resting in bed at this time. Pt. utlizes urinals for urination. Pt's bedding changed out. Pt. reports pain at 12/18. Pt. medicated with morphine and oxycodone per MAY.
[2022-03-09] MEDS: Tamsulosin HCL 0.4 MG CAPSULE PO (20:22)
[2022-03-09] MEDS: Furosemide 40 MG TABLET PO (20:22)
[2022-03-09 20:25] LABS: Glucose, Whole Blood 316 mg/dL (60-115)
--- NOTE | 2022-03-09 20:30 | PC.NURSE ---
Pt. last POC was 316. This has been slowly, but steadily increasing since about 1400 today. Messaged hospitalist to make them aware.
[2022-03-09 22:18] LABS: Glucose, Whole Blood 299 mg/dL (60-115)
[2022-03-09] MEDS: vancomycin HCL 1,000 MG in 0.9 % Sodium Chloride 250 ML 270 MG IV (22:28)
--- NOTE | 2022-03-09 23:04 | P.CNID_ITS ---
History of Present Illness Data of Consult Service Date: 03/09/22 Requesting physician: Alexa Perry Primary Care Provider: MD ISRRAEL Wick Reason for consult: fever of unknown origin He presents now with fever and chest discomfort. He has slow heal wound left foot,ischemic appearanc.e He has flu, Review of Systems Review of Systems: Yes all other systems are reviewed and are negative PMFSH Past Medical History Medical History Diabetes High cholesterol HTN (hypertension) Hyperlipidemia associated with type 2 diabetes mellitus Kidney disease Type 2 diabetes mellitus Family History Family History Other No family history of coronary artery disease Family history: reviewed and not pertinent Surgical History Surgical History H/O shoulder surgery History of amputation of right forefoot Hx of amputation Social History Social History Household Members: None Housing: Apartment Do you presently have visiting nurse or other home services: Yes Alcohol intake: never Patient Tobacco Use Status: Former Tobacco user Quit Date: >20yr ago Tobacco use type: Cigarette Smoked in Last 30 Days: No Substance Use Type: Crack/Cocaine Advance Directives: Yes Advance Directives on File: Yes Advance Directives Date on File: 02/02/22 service: No Current occupational status: retired Meds Allergies Allergy/AdvReac Type Severity Reaction Status Date / Time No Known Allergies Allergy Verified 03/06/22 10:15 [No Known Allergies*] Active Medications: Current Medications Acetaminophen (Acetaminophen 325 Mg Tablet) 650 mg PO Q6H PRN PRN Reason: Pain, Mild (Pain Scale 1-3) Last Admin: 03/09/22 12:40 Dose: 650 mg Amlodipine Besylate (Amlodipine Besylate 10 Mg Tablet) 10 mg PO DAILY@1700 [facility]; Protocol Last Admin: 03/09/22 16:58 Dose: 10 mg Atorvastatin Calcium (Atorvastatin Calcium 80 Mg Tablet) 80 mg PO DAILY [facility] Last Admin: 03/09/22 09:34 Dose: 80 mg Dextrose (Dextrose 50 % 25 Gm/50 Ml Syringe) 25 gm IVPUSH Q15M PRN; Protocol PRN Reason: per Hypoglycemia Standing Ord. Furosemide (Furosemide 40 Mg Tablet) 40 mg PO BID [facility]; Protocol Last Admin: 03/09/22 20:22 Dose: 40 mg Hydralazine HCl (Hydralazine Hcl 50 Mg Tablet) 100 mg PO TID [facility]; Protocol Last Admin: 03/09/22 20:22 Dose: 100 mg Dextrose/Sodium Chloride (D5ns) 1,000 mls @ 100 mls/hr IVCONT .Q10H [facility] Last Infusion: 03/09/22 21:37 Dose: Infused Vancomycin HCl 1,000 mg/ (Sodium Chloride) 270 mls @ 270 mls/hr IV Q24H [facility] Last Admin: 03/09/22 22:28 Dose: 270 mls/hr Cefepime HCl 2 gm/ Sodium (Chloride) 50 mls @ 100 mls/hr IV Q12H [facility] Last Infusion: 03/09/22 21:37 Dose: Infused Isosorbide Mononitrate (Isosorbide Mononitrate 60 Mg Tab.Er.24h) 60 mg PO DAILY [facility]; Protocol Last Admin: 03/09/22 09:34 Dose: 60 mg Metoprolol Succinate (Metoprolol Succinate Er 100 Mg Tab.Er.24h) 100 mg PO DAILY [facility]; Protocol Last Admin: 03/09/22 09:34 Dose: 100 mg Morphine Sulfate (Morphine Sulfate 4 Mg/Ml Cartridge) 4 mg IVPUSH Q4H PRN; Protocol PRN Reason: Pain, Severe (Pain Scale 7-10) Last Admin: 03/09/22 19:38 Dose: 4 mg Ondansetron HCl (Ondansetron Hcl 4 Mg/2 Ml Vial) 4 mg IVPUSH Q8H PRN PRN Reason: Nausea and Vomiting Oseltamivir Phosphate (Oseltamivir Phosphate 30 Mg Capsule) 30 mg PO BID [facility] Stop: 03/13/22 09:01 Last Admin: 03/09/22 20:22 Dose: 30 mg Oxycodone HCl (Oxycodone Hcl Immed Release 5 Mg Tablet) 5 mg PO Q6H PRN PRN Reason: Pain, Moderate (Pain Scale 4-6 Last Admin: 03/09/22 19:38 Dose: 5 mg Pharmacy Consult (Consult Rx Vancomycin Dosing) 1 each MISCELLANE DAILY PRN PRN Reason: Consult order Pharmacy Consult (Consult Rx Perform Med Rec) 1 each MISCELLANE ONCE PRN PRN Reason: Consult order Sertraline HCl (Sertraline Hcl 50 Mg Tablet) 50 mg PO DAILY [facility] Last Admin: 03/09/22 09:34 Dose: 50 mg Sodium Chloride (0.9 % Sodium Chloride Flush 3 Ml Syringe) 3 ml IVFLUSH QSHIFT [facility] Last Admin: 03/09/22 16:00 Dose: Not Given Tamsulosin HCl (Tamsulosin Hcl 0.4 Mg Capsule) 0.4 mg PO BEDTIME [facility] Last Admin: 03/09/22 20:22 Dose: 0.4 mg Home Medications Medication Instructions Recorded Confirmed Last Taken Type atorvastatin 80 mg tablet 80 mg PO DAILY 04/27/21 03/08/22 02/01/22 History fluticasone propionate 50 2 spray intranasal QAM PRN Nasal 04/27/21 03/08/22 02/01/22 History mcg/actuation nasal Congestion spray,suspension glipizide 10 mg tablet 20 mg PO BID 04/27/21 03/08/22 02/01/22 History metformin 1,000 mg tablet 1,000 mg PO BID 04/27/21 03/08/22 02/01/22 History metoprolol succinate 100 mg 100 mg PO DAILY 04/27/21 03/08/22 02/01/22 History tablet,extended release 24 hr sertraline 50 mg tablet 50 mg PO DAILY 04/27/21 03/08/22 02/01/22 History sitagliptin phosphate 100 mg 100 mg PO DAILY 04/27/21 03/08/22 02/01/22 History tablet (Januvia) povidone-iodine 10 % topical See Rx Instructions .Route .COMPLEX 12/28/21 03/08/22 02/01/22 History solution insulin degludec 100 unit/mL (3 25 unit subcut QPM 01/03/22 03/08/22 02/01/22 History mL) subcutaneous pen (Tresiba FlexTouch U-100 insulin) Physical Exam Vital Signs: Vital Signs: Last Vital Signs Temp 98.0 F 03/09/22 16:00 Pulse 79 03/09/22 22:11 Resp 16 03/09/22 16:00 BP 140/56 H 03/09/22 22:11 Pulse Ox 93 03/09/22 22:11 O2 Del Method 12/30/22 22:11 BMI result Body Mass Index 28.8 Const: General: cooperative HEENT: Head: Yes normal to inspection Face and sinus: Yes normal facial exam Mouth: Normal oral and palatal mucosa present Teeth and gingiva: dentition normal Eyes: General: appearance normal, both eyes and all related structures P upils: Equal, round and reactive pupils present Resp: Effort & Inspection: normal respiratory effort Cardio: Rate: regular rate Rhythm: regular rhythm GI: Palpation (GI): Soft to palpation and nontender : General: Yes no CVA tenderness Back/Spine/Pelvis: Back: no CVA tenderness Skin: General skin exam: no rashes or lesions noted Neuro: General: moves all extremities Cranial nerves: Yes Equal, round and reactive pupils present Extrem: Other: ischemic appearance left foot General: Yes normal to inspection Psych: Appearance: grossly normal Results Labs CBC & Chem 7: 03/09/22 07:07 03/09/22 07:07 Labs: Short CBC 03/09/22 Range/Units 07:07 WBC 12.8 H (4.8-10.8) X10*3/uL Hgb 8.5 L (14.0-18.0) g/dl Hct 26.6 L D (42.0-52.0) % Plt Count 274 (160-400) X10*3/uL BMP 03/09/22 07:07 Sodium 134 L Potassium 5.6 H D Chloride 105 Carbon Dioxide 21 L BUN 40 H Creatinine 1.74 H Calcium 8.7 Microbiology Microbiology Results: Microbiology 03/08/22 19:39 Blood - Venous Blood Culture - Preliminary No growth after 24 hours. 03/08/22 19:34 Blood - Venous Blood Culture - Preliminary No growth after 24 hours. Assessment and Plan (1) Status post transmetatarsal amputation of left foot: Status: Acute Fever likely due to flu A and some possible ischemia/early cellulitis (2) Cellulitis: Status: Acute (3) Influenza A: Status: Acute Plan Stop antibiotics tomorrow if no change. Tamiflu may be given for flu A. Time Spent With Patient Time: Total time managing care of this patient today ____ minutes.
[2022-03-09 23:55] LABS: Glucose, Whole Blood 251 mg/dL (60-115)
--- NOTE | 2022-03-09 23:58 | MHC.EDTECH ---
pt is resting quietly, a turkey sandwich was given and a cup of water , vitals were taken
[2022-03-10 02:59] VITALS: BP 154/68; PULSE 84; RESP 17; TEMP 36.2; O2SAT 96
[2022-03-10 03:03] LABS: Glucose, Whole Blood 258 mg/dL (60-115)
[2022-03-10] MEDS: Morphine Sulfate 4 MG/ML CARTRIDGE IVPUSH ×2 (03:13→08:49)
[2022-03-10] MEDS: oxyCODONE HCl Immed Release 5 MG TABLET PO ×2 (03:14→20:34)
--- NOTE | 2022-03-10 03:21 | PC.NURSE ---
Pt. awake in room, reporting pain at 10/10. Medicated with morphine and oxycontin per MAY. Flushed all pt. IV's. Provided pt. with warm blanket. Pt. resting quietly. Last poc was 251. Continued to hold D5 with NS.
--- NOTE | 2022-03-10 03:51 | MHC.EDTECH ---
pt is resting comfortable a pitcher of water was given vitals were taken his Blood sugar was also taken
--- NOTE | 2022-03-10 05:05 | PC.NURSE ---
Pt. sleeping in bed at this time. No distress noted. Respirations even and unlabored.
[2022-03-10 06:48] LABS: Hemoglobin 8.5 g/dl (14.0-18.0); Mean Corpuscular HGB Conc 32.7 g/dl (31.0-36.0); Mean Corpuscular Hemoglobin 29.4 pg (27.0-33.0); Mean Platelet Volume 9.4 fL (9.4-12.4); Platelet Count 261 X10*3/uL (160-400); Red Blood Count 2.89 X10*6/uL (4.60-5.80); Red Cell Distribution Width 14.5 % (11.0-16.0); White Blood Count 10.7 X10*3/uL (4.8-10.8)
[2022-03-10 07:05] LABS: Anion Gap 13 (12-20); Blood Urea Nitrogen 38 mg/dL (9-16); Calcium 8.7 mg/dL (8.4-10.2); Carbon Dioxide 21 mmol/L (22-29); Chloride 105 mmol/L (96-108); Creatinine Clr Calc Pharmacy 47.2; Estimated Glomerular Filt Rate 43; Glucose Random 209 mg/dL (60-115); Sodium 134 mmol/L (135-145)
[2022-03-10 07:15] LABS: Glucose, Whole Blood 201 mg/dL (60-115)
[2022-03-10] MEDS: cefEPime HCl 2 GM in 0.9 % Sodium Chloride 50 ML IV (08:47)
[2022-03-10] MEDS: Sertraline HCL 50 MG TABLET PO (08:48)
[2022-03-10] MEDS: Furosemide 40 MG TABLET PO ×2 (08:48→20:34)
[2022-03-10] MEDS: Atorvastatin Calcium 80 MG TABLET PO (08:48)
[2022-03-10] MEDS: Oseltamivir Phosphate 30 MG CAPSULE PO ×2 (08:48→20:35)
[2022-03-10] MEDS: hydrALAZINE HCl 50 MG TABLET 100 MG PO ×3 (08:48→20:34)
[2022-03-10] MEDS: Isosorbide Mononitrate 60 MG TAB.ER.24H PO (08:48)
[2022-03-10] MEDS: Metoprolol Succinate ER 100 MG TAB.ER.24H PO (08:48)
[2022-03-10] MEDS: Insulin Lispro 100 UNIT/ML 3 ML VIAL SUBCUT ×2 (08:49→17:33)
--- NOTE | 2022-03-10 08:57 | PC.NURSE ---
medicated for pain in left amputation. refusing to change to yobani. ate full breakfast. unlaboredresp. no resp complaints. no cough. LS CTA. aware ofplan for admisison and awaits bed. axox3. responding well to morphine.
[2022-03-10 10:20] VITALS: BP 138/53; PULSE 71; RESP 18; TEMP 36.8; O2SAT 95
[2022-03-10 12:16] VITALS: BP 138/50; PULSE 72; RESP 18; TEMP 36.7; O2SAT 96
--- NOTE | 2022-03-10 12:42 | P.PNIM_ITS ---
Subjective Subjective Date of Service: 03/10/22 Interval History: seen and examined this morning follow up for left foot pain, hypoglycemia, Flu having some pain in left foot, but better controlled today no fever, chills; no shortness of breath Review of Systems Review of Systems: Yes all other systems are reviewed and are negative Constitutional Constitutional: Denies chills and Denies fever(s) Cardiovascular Cardiovascular: Denies chest pain, Denies palpitations and Denies dyspnea Respiratory Respiratory: Reports cough and Denies dyspnea Endocrine Endocrine: Denies palpitations Physical Exam Vital Signs: Vital Signs: Last Vital Signs Temp 98.0 F 03/10/22 12:16 Pulse 72 03/10/22 12:16 Resp 18 03/10/22 12:16 BP 138/50 L 03/10/22 12:16 Pulse Ox 96 03/10/22 12:16 O2 Del Method 03/10/22 12:16 BMI result Body Mass Index 28.8 Const: General: no acute distress, well developed, alert and awake Nutritional Appearance: average body habitus Orientation/consciousness: patient oriented x3 Resp: Effort & Inspection: normal respiratory effort and able to speak in complete sentences Auscultation: clear to auscultation bilaterally Cardio: Rate: regular rate Heart sounds: S1 normal heart sound present and S2 normal heart sound present GI: Inspection: No distended Palpation (GI): Soft to palpation and nontender Skin: Other: left transmetatarsal amputation site - unchanged Neuro: General: patient oriented x3 and CN's II-XI intact bilaterally Extrem: Other: b/l transmetatarsal amputations General: Yes no pedal edema Objective Data Active Medications Acetaminophen (Acetaminophen 325 Mg Tablet) 650 mg PO Q6H PRN PRN Reason: Pain, Mild (Pain Scale 1-3) Last Admin: 03/09/22 12:40 Dose: 650 mg Documented By: ZULMA Amlodipine Besylate (Amlodipine Besylate 10 Mg Tablet) 10 mg PO DAILY@1700 ANNABELLA; Protocol Last Admin: 03/09/22 16:58 Dose: 10 mg Documented By: ZULMA Atorvastatin Calcium (Atorvastatin Calcium 80 Mg Tablet) 80 mg PO DAILY [facility] Last Admin: 03/10/22 08:48 Dose: 80 mg Documented By: CONNIE Dextrose (Dextrose 50 % 25 Gm/50 Ml Syringe) 25 gm IVPUSH Q15M PRN; Protocol PRN Reason: per Hypoglycemia Standing Ord. Dextrose (Dextrose 50 % 25 Gm/50 Ml Syringe) 25 gm IVPUSH Q15M PRN; Protocol PRN Reason: per Hypoglycemia Standing Ord. Furosemide (Furosemide 40 Mg Tablet) 40 mg PO BID [facility]; Protocol Last Admin: 03/10/22 08:48 Dose: 40 mg Documented By: CONNIE Glucose (Glucose Gel 15 Gm Gel..Gram.) 15 gm PO Q15M PRN; Protocol PRN Reason: per Hypoglycemia Standing Ord. Hydralazine HCl (Hydralazine Hcl 50 Mg Tablet) 100 mg PO TID [facility]; Protocol Last Admin: 03/10/22 08:48 Dose: 100 mg Documented By: CONNIE Vancomycin HCl 1,000 mg/ (Sodium Chloride) 270 mls @ 270 mls/hr IV Q24H [facility] Last Infusion: 03/10/22 04:40 Dose: 0 mls/hr Documented By: DELANO Cefepime HCl 2 gm/ Sodium (Chloride) 50 mls @ 100 mls/hr IV Q12H [facility] Last Admin: 03/10/22 08:47 Dose: 100 mls/hr Documented By: CONNIE Insulin Human Lispro (Insulin Lispro 100 Unit/Ml 3 Ml Vial) 0 unit SUBCUT QIDACHS [facility]; Protocol Last Admin: 03/10/22 08:49 Dose: 4 unit Documented By: CONNIE Isosorbide Mononitrate (Isosorbide Mononitrate 60 Mg Tab.Er.24h) 60 mg PO DAILY [facility]; Protocol Last Admin: 03/10/22 08:48 Dose: 60 mg Documented By: CONNIE Metoprolol Succinate (Metoprolol Succinate Er 100 Mg Tab.Er.24h) 100 mg PO DAILY [facility]; Protocol Last Admin: 03/10/22 08:48 Dose: 100 mg Documented By: CONNIE Morphine Sulfate (Morphine Sulfate 4 Mg/Ml Cartridge) 4 mg IVPUSH Q4H PRN; Protocol PRN Reason: Pain, Severe (Pain Scale 7-10) Last Admin: 03/10/22 08:49 Dose: 4 mg Documented By: CONNIE Ondansetron HCl (Ondansetron Hcl 4 Mg/2 Ml Vial) 4 mg IVPUSH Q8H PRN PRN Reason: Nausea and Vomiting Oseltamivir Phosphate (Oseltamivir Phosphate 30 Mg Capsule) 30 mg PO BID [facility] Stop: 03/13/22 09:01 Last Admin: 03/10/22 08:48 Dose: 30 mg Documented By: CONNIE Oxycodone HCl (Oxycodone Hcl Immed Release 5 Mg Tablet) 5 mg PO Q6H PRN PRN Reason: Pain, Moderate (Pain Scale 4-6 Last Admin: 03/10/22 03:14 Dose: 5 mg Documented By: DELANO Pharmacy Consult (Consult Rx Vancomycin Dosing) 1 each MISCELLANE DAILY PRN PRN Reason: Consult order Pharmacy Consult (Consult Rx Perform Med Rec) 1 each MISCELLANE ONCE PRN PRN Reason: Consult order Sertraline HCl (Sertraline Hcl 50 Mg Tablet) 50 mg PO DAILY [facility] Last Admin: 03/10/22 08:48 Dose: 50 mg Documented By: CONNIE Sodium Chloride (0.9 % Sodium Chloride Flush 3 Ml Syringe) 3 ml IVFLUSH QSHIFT [facility] Last Admin: 03/10/22 08:47 Dose: Not Given Documented By: CONNIE Non-Admin Reason: Med Not Available Tamsulosin HCl (Tamsulosin Hcl 0.4 Mg Capsule) 0.4 mg PO BEDTIME [facility] Last Admin: 03/09/22 20:22 Dose: 0.4 mg Documented By: DELANO Labs CBC & Chem 7: 03/10/22 06:42 03/10/22 06:42 Labs: Laboratory Results - last 24 hr 03/08/22 03/09/22 03/09/22 22:54 13:57 16:06 MCV MCH MCHC RDW Plt Count MPV Absolute Nucleated RBC Nucleated RBC % (auto) Anion Gap Estim Creat Clear Calc Estimated GFR POC Glucose 118 H 250 H Random Glucose Calcium Vitamin B12 334 Folate 12.7 03/09/22 03/09/22 03/09/22 17:56 20:21 22:14 MCV MCH MCHC RDW Plt Count MPV Absolute Nucleated RBC Nucleated RBC % (auto) Anion Gap Estim Creat Clear Calc Estimated GFR POC Glucose 289 H 316 H 299 H Random Glucose Calcium Vitamin B12 Folate 03/09/22 03/10/22 03/10/22 23:51 02:56 06:42 MCV MCH MCHC RDW Plt Count MPV Absolute Nucleated RBC Nucleated RBC % (auto) Anion Gap 13 Estim Creat Clear Calc 47.2 Estimated GFR 43 POC Glucose 251 H 258 H Random Glucose 209 H Calcium 8.7 Vitamin B12 Folate 03/10/22 03/10/22 06:42 07:08 MCV 90.0 MCH 29.4 MCHC 32.7 RDW 14.5 Plt Count 261 MPV 9.4 Absolute Nucleated RBC 0.000 Nucleated RBC % (auto) 0.0 Anion Gap Estim Creat Clear Calc Estimated GFR POC Glucose 201 H Random Glucose Calcium Vitamin B12 Folate Microbiology Microbiology Results: Microbiology 03/08/22 19:39 Blood Culture - Preliminary Blood - Venous No growth after 24 hours. 03/08/22 19:34 Blood Culture - Preliminary Blood - Venous No growth after 24 hours. Assessment and Plan (1) Influenza A: Status: Acute (2) Hypoglycemia: Status: Acute Plan 67-year-old male with recent transmetatarsal amputation of left foot presents to the hospital with complaints hyperglycemia as well as pain in left wound hypoglycemia likely secondary to taking insulin with low oral intake d5 stopped, POCs stable will start SSI, follow POCs Treseba on hold status post transmetatarsal amputation of left foot with delayed surgical wound healing patient has elevated ESR, CRP, pain seems stable seen by vascular, not concerned for infection, does not need MRI; inflammatory markers elevated likely due to recent amputation ID agrees, antibiotics can be discontinued outpatient vascular surgery follow up acute on chronic anemia no active bleeding noted s/p 1 unit of prbc with appropriate rise in H/H H/H stable Hyperkalemia resolved with lokelma hold losartan, aldactone follow BMP CKD3 creatinine appears within baseline follow BMP influenza a infection no hypoxia chest x-ray with no acute findings continue Tamiflu CHF not in exacerbation continue home furosemide HTN hold losartan, aldactone on hold for hyperkalemia continue metoprolol, hydralazine, isosorbide, amlodipine hyperlipidemia continue statin DVT prophylaxis: mechanical devices due to anemia seen by PT - rec STR attending - dr machado requires ongoing inpatient hospitalization for monitor of blood sugar, potassium level, safe disposition Time Spent With Patient Time: Total time managing care of this patient today ____ minutes. Quality Stroke Does the patient have a stroke diagnosis?: No VTE Prior VTE?: No VTE Risk Level:: Medical - moderate - high VTE Device Contraindication: N/A - Device Ordered VTE Drug Contraindication: Treatment Not Indicated
[2022-03-10 13:12] LABS: Glucose, Whole Blood 104 mg/dL (60-115)
[2022-03-10 14:01] VITALS: BP 161/63; PULSE 78; RESP 18; TEMP 36.9; O2SAT 94
--- NOTE | 2022-03-10 14:01 | PC.NURSE ---
c/o chills. skin pwd. unlabored resp. afebrile./ awaits room on floor.
--- NOTE | 2022-03-10 15:45 | PC.NURSE ---
report received from JOSE Hayes. Pt is resting on stretcher at this time, awaiting bed assignment
[2022-03-10 15:53] LABS: Glucose, Whole Blood 285 mg/dL (60-115)
[2022-03-10 16:39] VITALS: BP 156/78; PULSE 84; RESP 19; TEMP 36.9; O2SAT 98
[2022-03-10 16:48] LABS: Glucose, Whole Blood 282 mg/dL (60-115)
[2022-03-10] MEDS: 0.9 % Sodium Chloride Flush 3 ML SYRINGE IVFLUSH ×2 (17:33→21:55)
[2022-03-10] MEDS: Morphine Sulfate 4 MG/ML CARTRIDGE 2 MG IVPUSH (17:34)
[2022-03-10] MEDS: amLODIPine Besylate 10 MG TABLET PO (17:39)
[2022-03-10 20:00] VITALS: BP 119/61; PULSE 88; RESP 18; TEMP 36.7; O2SAT 99
[2022-03-10] MEDS: Tamsulosin HCL 0.4 MG CAPSULE PO (20:34)
[2022-03-10] MEDS: Acetaminophen 325 MG TABLET 650 MG PO (20:34)
[2022-03-10 21:07] LABS: Vancomycin Random 47.7 mcg/mL (15-20)
--- NOTE | 2022-03-10 21:20 | PM.EVENT ---
Event Note Date of Service: 03/10/22 Event Note: has elevated vancomycin level. unclear if drawn appriopriately. Discussed with pharmacy. likely inaccurate. No worsening kidney fx. will rpt BMP in AM, redraw vanc level. Vanc was dcd today. Time Spent With Patient Time: Total time managing care of this patient today ____ minutes.
--- NOTE | 2022-03-10 21:22 | PC.NURSE ---
pt vanco toxicity came as a critical 47.7. dr. Palm notified. put new ordered BMP, Vanco random stat. will continue to monitor him.
[2022-03-10 21:44] LABS: Anion Gap 17 (12-20); Blood Urea Nitrogen 42 mg/dL (9-16); Calcium 8.7 mg/dL (8.4-10.2); Carbon Dioxide 18 mmol/L (22-29); Chloride 102 mmol/L (96-108); Creatinine Clr Calc Pharmacy 44.5; Estimated Glomerular Filt Rate 40; Glucose Random 127 mg/dL (60-115); Potassium 5.3 mmol/L (3.3-5.1); Sodium 132 mmol/L (135-145)
[2022-03-10] MEDS: HYDROmorphone HCl 0.5 MG/0.5 ML SYRINGE IVPUSH (21:44)
[2022-03-11] MEDS: Morphine Sulfate 4 MG/ML CARTRIDGE IVPUSH ×3 (01:24→20:20)
[2022-03-11 04:00] VITALS: BP 162/64; PULSE 97; RESP 19; TEMP 37.2; O2SAT 94
[2022-03-11] MEDS: oxyCODONE HCl Immed Release 5 MG TABLET PO ×4 (04:06→23:39)
[2022-03-11] MEDS: guaiFENesin DM 100/10/5 ML 5 ML SYRUP PO ×3 (04:15→23:39)
[2022-03-11 06:57] LABS: Creatinine Clr Calc Pharmacy 45.3; Estimated Glomerular Filt Rate 41
[2022-03-11 06:58] LABS: Vancomycin Random 48.7 mcg/mL (15-20)
[2022-03-11 07:00] VITALS: BP 170/81; PULSE 82; RESP 19; TEMP 36.6; O2SAT 96
[2022-03-11 07:02] LABS: Anion Gap 14 (12-20); Blood Urea Nitrogen 39 mg/dL (9-16); Calcium 8.7 mg/dL (8.4-10.2); Carbon Dioxide 21 mmol/L (22-29); Chloride 103 mmol/L (96-108); Creatinine Clr Calc Pharmacy 45.5; Estimated Glomerular Filt Rate 41; Glucose Random 205 mg/dL (60-115); Potassium 5.1 mmol/L (3.3-5.1); Sodium 133 mmol/L (135-145)
[2022-03-11 07:10] LABS: Glucose, Whole Blood 191 mg/dL (60-115)
[2022-03-11] MEDS: Oseltamivir Phosphate 30 MG CAPSULE PO ×2 (07:42→20:20)
[2022-03-11] MEDS: Insulin Lispro 100 UNIT/ML 3 ML VIAL SUBCUT ×3 (07:42→20:21)
[2022-03-11] MEDS: 0.9 % Sodium Chloride Flush 3 ML SYRINGE IVFLUSH ×3 (07:42→20:21)
[2022-03-11] MEDS: Furosemide 40 MG TABLET PO ×2 (07:42→20:20)
[2022-03-11] MEDS: Sertraline HCL 50 MG TABLET PO (07:42)
[2022-03-11] MEDS: Atorvastatin Calcium 80 MG TABLET PO (07:42)
[2022-03-11] MEDS: Isosorbide Mononitrate 60 MG TAB.ER.24H PO (07:43)
[2022-03-11] MEDS: Metoprolol Succinate ER 100 MG TAB.ER.24H PO (07:43)
[2022-03-11] MEDS: hydrALAZINE HCl 50 MG TABLET 100 MG PO ×3 (07:43→20:20)
[2022-03-11 08:09] LABS: Glucose, Whole Blood 149 mg/dL (60-115)
[2022-03-11 08:29] LABS: Phosphorus 3.9 mg/dL (2.7-4.5)
[2022-03-11 11:07] LABS: Glucose, Whole Blood 185 mg/dL (60-115)
[2022-03-11 12:21] LABS: Creatinine Clr Calc Pharmacy 45.5; Estimated Glomerular Filt Rate 41
[2022-03-11 12:26] LABS: Vancomycin Random 46.7 mcg/mL (15-20)
--- NOTE | 2022-03-11 14:33 | P.PNIM_ITS ---
Subjective Subjective Date of Service: 03/11/22 Interval History: seen and examined this morning follow up for influenza, left foot stump pain, hypoglycemia dry cough, no sob Review of Systems Review of Systems: Yes all other systems are reviewed and are negative Constitutional Constitutional: Denies chills and Denies fever(s) Cardiovascular Cardiovascular: Denies chest pain, Denies palpitations and Denies dyspnea Respiratory Respiratory: Reports cough and Denies dyspnea Endocrine Endocrine: Denies palpitations Physical Exam Vital Signs: Vital Signs: Last Vital Signs Temp 97.9 F 03/11/22 07:00 Pulse 82 03/11/22 07:00 Resp 19 03/11/22 07:00 BP 170/81 H 03/11/22 07:00 Pulse Ox 96 03/11/22 07:00 O2 Del Method 03/11/22 07:00 BMI result Body Mass Index 28.8 Const: General: no acute distress, well developed, alert and awake Nutritional Appearance: average body habitus Orientation/consciousness: patient oriented x3 Resp: Effort & Inspection: normal respiratory effort and able to speak in complete sentences Auscultation: clear to auscultation bilaterally Cardio: Rate: regular rate Heart sounds: S1 normal heart sound present and S2 normal heart sound present GI: Inspection: No distended Palpation (GI): Soft to palpation and nontender Skin: Other: left transmetatarsal amputation site - unchanged from previous picture Neuro: General: patient oriented x3 and CN's II-XI intact bilaterally Extrem: Other: b/l transmetatarsal amputations General: Yes no pedal edema Objective Data Active Medications Acetaminophen (Acetaminophen 325 Mg Tablet) 650 mg PO Q6H PRN PRN Reason: Pain, Mild (Pain Scale 1-3) Last Admin: 03/10/22 20:34 Dose: 650 mg Documented By: CLARK Amlodipine Besylate (Amlodipine Besylate 10 Mg Tablet) 10 mg PO DAILY@1700 ANNABELLA; Protocol Last Admin: 03/10/22 17:39 Dose: 10 mg Documented By: KAMRON Atorvastatin Calcium (Atorvastatin Calcium 80 Mg Tablet) 80 mg PO DAILY REPLACED BY [facility] Last Admin: 03/11/22 07:42 Dose: 80 mg Documented By: NAVNEET Dextrose (Dextrose 50 % 25 Gm/50 Ml Syringe) 25 gm IVPUSH Q15M PRN; Protocol PRN Reason: per Hypoglycemia Standing Ord. Dextrose (Dextrose 50 % 25 Gm/50 Ml Syringe) 25 gm IVPUSH Q15M PRN; Protocol PRN Reason: per Hypoglycemia Standing Ord. Furosemide (Furosemide 40 Mg Tablet) 40 mg PO BID [facility]PL[facility] BY [facility]; Protocol Last Admin: 03/11/22 07:42 Dose: 40 mg Documented By: NAVNEET Glucose (Glucose Gel 15 Gm Gel..Gram.) 15 gm PO Q15M PRN; Protocol PRN Reason: per Hypoglycemia Standing Ord. Guaifenesin/Dextromethorphan (Guaifenesin Dm 100/10/5 Ml 5 Ml Syrup) 5 ml PO Q4H PRN PRN Reason: cough Last Admin: 03/11/22 14:12 Dose: 5 ml Documented By: NAVNEET Hydralazine HCl (Hydralazine Hcl 50 Mg Tablet) 100 mg PO TID [facility]PL[facility] BY [facility]; Protocol Last Admin: 03/11/22 14:12 Dose: 100 mg Documented By: NAVNEET Insulin Human Lispro (Insulin Lispro 100 Unit/Ml 3 Ml Vial) 0 unit SUBCUT QIDACHS REPLACED BY [facility]; Protocol Last Admin: 03/11/22 11:36 Dose: 6 unit Documented By: NAVNEET Isosorbide Mononitrate (Isosorbide Mononitrate 60 Mg Tab.Er.24h) 60 mg PO DAILY [facility]; Protocol Last Admin: 03/11/22 07:43 Dose: 60 mg Documented By: NAVNEET Metoprolol Succinate (Metoprolol Succinate Er 100 Mg Tab.Er.24h) 100 mg PO DAILY [facility]PL[facility]; Protocol Last Admin: 03/11/22 07:43 Dose: 100 mg Documented By: NAVNEET Morphine Sulfate (Morphine Sulfate 4 Mg/Ml Cartridge) 4 mg IVPUSH Q4H PRN; Protocol PRN Reason: Pain, Severe (Pain Scale 7-10) Last Admin: 03/11/22 09:21 Dose: 4 mg Documented By: NAVNEET Ondansetron HCl (Ondansetron Hcl 4 Mg/2 Ml Vial) 4 mg IVPUSH Q8H PRN PRN Reason: Nausea and Vomiting Oseltamivir Phosphate (Oseltamivir Phosphate 30 Mg Capsule) 30 mg PO BID [facility]PL[facility]ED BY [facility] Stop: 03/13/22 09:01 Last Admin: 03/11/22 07:42 Dose: 30 mg Documented By: NAVNEET Oxycodone HCl (Oxycodone Hcl Immed Release 5 Mg Tablet) 5 mg PO Q6H PRN PRN Reason: Pain, Moderate (Pain Scale 4-6 Last Admin: 03/11/22 10:59 Dose: 5 mg Documented By: ZULEMA Pharmacy Consult (Consult Rx Vancomycin Dosing) 1 each MISCELLANE DAILY PRN PRN Reason: Consult order Pharmacy Consult (Consult Rx Perform Med Rec) 1 each MISCELLANE ONCE PRN PRN Reason: Consult order Sertraline HCl (Sertraline Hcl 50 Mg Tablet) 50 mg PO DAILY [facility]PLACED BY [facility] Last Admin: 03/11/22 07:42 Dose: 50 mg Documented By: NAVNEET Sodium Chloride (0.9 % Sodium Chloride Flush 3 Ml Syringe) 3 ml IVFLUSH QSHIFT REPLACED BY [facility] Last Admin: 03/11/22 07:42 Dose: 3 ml Documented By: NAVNEET Tamsulosin HCl (Tamsulosin Hcl 0.4 Mg Capsule) 0.4 mg PO BEDTIME REPLACED BY [facility] Last Admin: 03/10/22 20:34 Dose: 0.4 mg Documented By: CLARK Labs CBC & Chem 7: 03/10/22 06:42 03/11/22 11:56 Labs: Laboratory Results - last 24 hr 03/08/22 03/10/22 03/10/22 22:54 15:48 16:44 Anion Gap Estim Creat Clear Calc Estimated GFR POC Glucose 285 H 282 H Random Glucose Calcium Phosphorus Random Vancomycin Crossmatch See Detail 03/10/22 03/10/22 03/10/22 20:19 20:40 21:25 Anion Gap 17 Estim Creat Clear Calc 44.5 Estimated GFR 40 POC Glucose 149 H Random Glucose 127 H D Calcium 8.7 Phosphorus Random Vancomycin 47.7 H* Crossmatch 03/11/22 03/11/22 03/11/22 05:47 05:49 05:49 Anion Gap 14 Estim Creat Clear Calc 45.3 45.5 Estimated GFR 41 41 POC Glucose Random Glucose 205 H Calcium 8.7 Phosphorus 3.9 Random Vancomycin 48.7 H* Crossmatch 03/11/22 03/11/22 03/11/22 06:59 11:03 11:56 Anion Gap Estim Creat Clear Calc 45.5 Estimated GFR 41 POC Glucose 191 H 185 H Random Glucose Calcium Phosphorus Random Vancomycin Crossmatch 03/11/22 11:56 Anion Gap Estim Creat Clear Calc Estimated GFR POC Glucose Random Glucose Calcium Phosphorus Random Vancomycin 46.7 H* Crossmatch Microbiology Microbiology Results: Microbiology 03/08/22 19:39 Blood Culture - Preliminary Blood - Venous No growth after 48 hours. 03/08/22 19:34 Blood Culture - Preliminary Blood - Venous No growth after 48 hours. Assessment and Plan (1) Influenza A: Status: Acute Plan 67-year-old male with recent transmetatarsal amputation of left foot presents to the hospital with complaints hyperglycemia as well as pain in left wound hypoglycemia likely secondary to taking insulin with low oral intake d5 stopped, POCs stable will start SSI, follow POCs [place]se[place] on hold status post transmetatarsal amputation of left foot with delayed surgical wound healing patient has elevated ESR, CRP, pain seems stable seen by vascular, not concerned for infection, does not need MRI; inflammatory markers elevated likely due to recent amputation ID agrees, antibiotics can be discontinued outpatient vascular surgery follow up elevated vanco trough vanco d/c 03/10 follow BMP acute on chronic anemia no active bleeding noted s/p 1 unit of prbc with appropriate rise in H/H H/H stable Hyperkalemia resolved with lokelma hold losartan, aldactone follow BMP CKD3 creatinine appears within baseline follow BMP influenza a infection no hypoxia chest x-ray with no acute findings continue Tamiflu CHF not in exacerbation continue home furosemide HTN hold losartan, aldactone on hold for hyperkalemia continue metoprolol, hydralazine, isosorbide, amlodipine hyperlipidemia continue statin DVT prophylaxis: mechanical devices due to anemia seen by PT - rec STR attending - dr. chakraborty requires ongoing inpatient hospitalization for monitor of blood sugar, potassium level, safe disposition Time Spent With Patient Time: Total time managing care of this patient today ____ minutes. Quality Stroke Does the patient have a stroke diagnosis?: No VTE Prior VTE?: No VTE Risk Level:: Medical - moderate - high VTE Device Contraindication: N/A - Device Ordered VTE Drug Contraindication: Treatment Not Indicated
[2022-03-11 15:05] VITALS: BP 177/79; PULSE 77; RESP 18; TEMP 37.1; O2SAT 96
[2022-03-11 15:48] LABS: Glucose, Whole Blood 140 mg/dL (60-115)
[2022-03-11] MEDS: amLODIPine Besylate 10 MG TABLET PO (16:15)
[2022-03-11 19:37] VITALS: BP 151/65; RESP 18; O2SAT 95
[2022-03-11 20:20] LABS: Glucose, Whole Blood 294 mg/dL (60-115)
[2022-03-11] MEDS: Tamsulosin HCL 0.4 MG CAPSULE PO (20:20)
[2022-03-12] MEDS: Morphine Sulfate 4 MG/ML CARTRIDGE IVPUSH ×4 (02:02→20:58)
[2022-03-12 03:30] VITALS: BP 163/72; PULSE 88; RESP 18; TEMP 36.6; O2SAT 93
[2022-03-12] MEDS: guaiFENesin DM 100/10/5 ML 5 ML SYRUP PO ×2 (03:38→20:58)
[2022-03-12] MEDS: Acetaminophen 325 MG TABLET 650 MG PO (03:38)
[2022-03-12 06:40] LABS: Anion Gap 15 (12-20); Blood Urea Nitrogen 40 mg/dL (9-16); Calcium 8.9 mg/dL (8.4-10.2); Carbon Dioxide 24 mmol/L (22-29); Chloride 102 mmol/L (96-108); Creatinine Clr Calc Pharmacy 46.9; Estimated Glomerular Filt Rate 42; Glucose Random 144 mg/dL (60-115); Potassium 5.4 mmol/L (3.3-5.1); Sodium 136 mmol/L (135-145)
[2022-03-12] MEDS: oxyCODONE HCl Immed Release 5 MG TABLET PO ×2 (07:39→17:56)
[2022-03-12] MEDS: Sodium Zirconium Cyclosilicate 10 GM POWD.PACK PO (07:41)
[2022-03-12 08:00] VITALS: BP 172/77; PULSE 77; RESP 18; TEMP 36.6; O2SAT 97
[2022-03-12 08:02] LABS: Glucose, Whole Blood 142 mg/dL (60-115)
--- NOTE | 2022-03-12 08:23 | P.PNVS_ITS ---
Subjective Subjective Date of Service: 03/12/22 Patient reports: no new complaints and pain is less Interval history: Patient seen and examined. Appears to be doing significantly better since admission. Pain and that left transmetatarsal site is significantly improved. In general appears to be in much better spirits. Now for routine follow-up. Physical Exam Vital Signs: Vital Signs: Last Vital Signs Temp 97.9 F 03/12/22 08:00 Pulse 77 03/12/22 08:00 Resp 18 03/12/22 08:00 BP 172/77 H 03/12/22 08:00 Pulse Ox 97 03/12/22 08:00 O2 Del Method 03/12/22 08:00 BMI result Body Mass Index 28.8 Const: General: cooperative, healthy appearing and no acute distress Orientation/consciousness: oriented to person, oriented to place and oriented to time HEENT: Head: Yes normal to inspection Neck: Carotids: no bruits Chest: Chest palpation & inspection: normal inspection of the chest Resp: Effort & Inspection: normal respiratory effort and able to speak in complete sentences Auscultation: clear to auscultation bilaterally Cardio: Rate: regular rate Heart sounds: S1 normal heart sound present and S2 normal heart sound present GI: Inspection: Yes normal to inspection Skin: Other: Left transmetatarsal amp about 50% take General skin exam: no rashes or lesions noted Wounds: no wounds Neuro: General: oriented to person, oriented to place, oriented to time and CN's II-XI intact bilaterally Extrem: General: Yes normal to inspection, Yes full ROM and Yes no clubbing, cyanosis or edema Psych: Appearance: grossly normal and well kempt Speech and movement: Normal speech and movement present Affect: normal affect Progress Note: A&P Assessment and plan (1) PAD (peripheral artery disease): Status: Acute Assessment and Plan: In short patient is doing reasonably well status post transmetatarsal amputa tion. He has got about a 50 to 60% flap take. It will be slow to heal. Will continue with local wound care and monitoring. Stable from my perspective once medically stable. He will follow up with us as an outpatient. Will recheck CBC to ensure that the white count remains down. Thank you for allowing us to assist in his care. Time Spent With Patient Time: Total time managing care of this patient today ____ minutes. Procedures Date of Service Date of Service: 03/12/22 Quality Stroke Does the patient have a stroke diagnosis?: No VTE Prior VTE?: No VTE Risk Level:: Medical - moderate - high VTE Device Contraindication: N/A - Device Ordered VTE Drug Contraindication: Treatment Not Indicated
[2022-03-12] MEDS: Isosorbide Mononitrate 60 MG TAB.ER.24H PO (08:26)
[2022-03-12] MEDS: hydrALAZINE HCl 50 MG TABLET 100 MG PO ×3 (08:26→20:50)
[2022-03-12] MEDS: Atorvastatin Calcium 80 MG TABLET PO (08:26)
[2022-03-12] MEDS: Furosemide 40 MG TABLET PO ×2 (08:26→20:50)
[2022-03-12] MEDS: Sertraline HCL 50 MG TABLET PO (08:26)
[2022-03-12] MEDS: Metoprolol Succinate ER 100 MG TAB.ER.24H PO (08:26)
[2022-03-12] MEDS: Oseltamivir Phosphate 30 MG CAPSULE PO ×2 (08:27→20:50)
[2022-03-12] MEDS: 0.9 % Sodium Chloride Flush 3 ML SYRINGE IVFLUSH ×2 (08:28→14:05)
[2022-03-12 08:40] LABS: MANUAL DIFF FLAG NO
[2022-03-12 08:42] LABS: Basophils Percent Auto 0.2 % (0-2); Eosinophils Absolute Auto 0.1 X10*3/uL (0.0-0.4); Eosinophils Percent Auto 0.9 % (0-4); Hematocrit 25.1 % (42.0-52.0); Hemoglobin 8.2 g/dl (14.0-18.0); Imm Gran Abs Auto 0.08 X10*3/uL (0.00-0.03); Imm Gran Pct Auto 0.6 % (0.0-0.4); Lymphocytes Absolute Auto 1.4 X10*3/uL (1.2-4.9); Lymphocytes Percent Auto 10.3 % (20-40); Mean Corpuscular HGB Conc 32.7 g/dl (31.0-36.0); Mean Corpuscular Hemoglobin 29.5 pg (27.0-33.0); Mean Corpuscular Volume 90.3 fL (80.0-98.0); Monocytes Absolute Auto 1.5 X10*3/uL (0.1-1.2); Monocytes Percent Auto 10.9 % (2-11); Neutrophils Absolute Auto 10.3 x10*3/uL (2.0-8.3); Neutrophils Percent Auto 77.1 % (45-73); Platelet Count 364 X10*3/uL (160-400); Red Blood Count 2.78 X10*6/uL (4.60-5.80); Red Cell Distribution Width 14.3 % (11.0-16.0); White Blood Count 13.4 X10*3/uL (4.8-10.8)
--- NOTE | 2022-03-12 10:39 | MHC.CM.PN ---
OF THIS NOTE, NO BED OFFER CASE MANAGEMENT IS WAITING FOR GAS OR [employer] TO DISCUSS WITH PATIENT
--- NOTE | 2022-03-12 10:59 | P.PNIM_ITS ---
Subjective Subjective Date of Service: 03/12/22 Interval History: seen and examined this morning follow up for influenza, left foot stump pain, hypoglycemia dry cough, no sob Review of Systems Review of Systems: Yes all other systems are reviewed and are negative Constitutional Constitutional: Denies chills and Denies fever(s) Cardiovascular Cardiovascular: Denies chest pain, Denies palpitations and Denies dyspnea Respiratory Respiratory: Reports cough and Denies dyspnea Endocrine Endocrine: Denies palpitations Physical Exam Vital Signs: Vital Signs: Last Vital Signs Temp 97.9 F 03/12/22 08:00 Pulse 77 03/12/22 08:00 Resp 18 03/12/22 08:00 BP 172/77 H 03/12/22 08:00 Pulse Ox 97 03/12/22 08:00 O2 Del Method 03/12/22 08:00 BMI result Body Mass Index 28.8 Appearing in no acute distress lung sounds are clear to auscultation heart regular rate rhythm, clear S1, S2 positive bowel sounds, abdomen is soft, nontender neuro patient is alert x3, no focal deficits Left foot TMA, dressing intact Objective Data Active Medications Acetaminophen (Acetaminophen 325 Mg Tablet) 650 mg PO Q6H PRN PRN Reason: Pain, Mild (Pain Scale 1-3) Last Admin: 03/12/22 03:38 Dose: 650 mg Documented By: CLARK Amlodipine Besylate (Amlodipine Besylate 10 Mg Tablet) 10 mg PO DAILY@1700 [facility]; Protocol Last Admin: 03/11/22 16:15 Dose: 10 mg Documented By: NAVNEET Atorvastatin Calcium (Atorvastatin Calcium 80 Mg Tablet) 80 mg PO DAILY [facility] Last Admin: 03/12/22 08:26 Dose: 80 mg Documented By: NAVNEET Dextrose (Dextrose 50 % 25 Gm/50 Ml Syringe) 25 gm IVPUSH Q15M PRN; Protocol PRN Reason: per Hypoglycemia Standing Ord. Dextrose (Dextrose 50 % 25 Gm/50 Ml Syringe) 25 gm IVPUSH Q15M PRN; Protocol PRN Reason: per Hypoglycemia Standing Ord. Furosemide (Furosemide 40 Mg Tablet) 40 mg PO BID [facility]; Protocol Last Admin: 03/12/22 08:26 Dose: 40 mg Documented By: NAVNEET Glucose (Glucose Gel 15 Gm Gel..Gram.) 15 gm PO Q15M PRN; Protocol PRN Reason: per Hypoglycemia Standing Ord. Guaifenesin/Dextromethorphan (Guaifenesin Dm 100/10/5 Ml 5 Ml Syrup) 5 ml PO Q4H PRN PRN Reason: cough Last Admin: 03/12/22 03:38 Dose: 5 ml Documented By: CLARK Hydralazine HCl (Hydralazine Hcl 50 Mg Tablet) 100 mg PO TID [facility]; Protocol Last Admin: 03/12/22 08:26 Dose: 100 mg Documented By: NAVNEET Insulin Human Lispro (Insulin Lispro 100 Unit/Ml 3 Ml Vial) 0 unit SUBCUT QIDACHS [facility]; Protocol Last Admin: 03/12/22 08:04 Dose: Not Given Documented By: NAVNEET Non-Admin Reason: No Insulin Coverage Isosorbide Mononitrate (Isosorbide Mononitrate 60 Mg Tab.Er.24h) 60 mg PO DAILY [facility]; Protocol Last Admin: 03/12/22 08:26 Dose: 60 mg Documented By: NAVNEET Metoprolol Succinate (Metoprolol Succinate Er 100 Mg Tab.Er.24h) 100 mg PO DAILY [facility]; Protocol Last Admin: 03/12/22 08:26 Dose: 100 mg Documented By: NAVNEET Morphine Sulfate (Morphine Sulfate 4 Mg/Ml Cartridge) 4 mg IVPUSH Q4H PRN; Protocol PRN Reason: Pain, Severe (Pain Scale 7-10) Last Admin: 03/12/22 06:29 Dose: 4 mg Documented By: CLARK Ondansetron HCl (Ondansetron Hcl 4 Mg/2 Ml Vial) 4 mg IVPUSH Q8H PRN PRN Reason: Nausea and Vomiting Oseltamivir Phosphate (Oseltamivir Phosphate 30 Mg Capsule) 30 mg PO BID [facility] Stop: 03/13/22 09:01 Last Admin: 03/12/22 08:27 Dose: 30 mg Documented By: NAVNEET Oxycodone HCl (Oxycodone Hcl Immed Release 5 Mg Tablet) 5 mg PO Q6H PRN PRN Reason: Pain, Moderate (Pain Scale 4-6 Last Admin: 03/12/22 07:39 Dose: 5 mg Documented By: NAVNEET Pharmacy Consult (Consult Rx Vancomycin Dosing) 1 each MISCELLANE DAILY PRN PRN Reason: Consult order Pharmacy Consult (Consult Rx Perform Med Rec) 1 each MISCELLANE ONCE PRN PRN Reason: Consult order Sertraline HCl (Sertraline Hcl 50 Mg Tablet) 50 mg PO DAILY [facility] Last Admin: 03/12/22 08:26 Dose: 50 mg Documented By: NAVNEET Sodium Chloride (0.9 % Sodium Chloride Flush 3 Ml Syringe) 3 ml IVFLUSH QSHIFT [facility] Last Admin: 03/12/22 08:28 Dose: 3 ml Documented By: NAVNEET Tamsulosin HCl (Tamsulosin Hcl 0.4 Mg Capsule) 0.4 mg PO BEDTIME [facility] Last Admin: 03/11/22 20:20 Dose: 0.4 mg Documented By: CLARK Labs CBC & Chem 7: 03/12/22 05:29 03/12/22 05:29 Labs: Laboratory Results - last 24 hr 03/11/22 03/11/22 03/11/22 11:03 11:56 11:56 MCV MCH MCHC RDW Plt Count MPV Immature Gran % (Auto) Neut % (Auto) Lymph % (Auto) [place] % (Auto) Eos % (Auto) Baso % (Auto) Lymph # (Auto) [place] # (Auto) Eos # (Auto) Baso # (Auto) Abs Immat Gran (auto) Absolute Neuts (auto) Absolute Nucleated RBC Nucleated RBC % (auto) Anion Gap Estim Creat Clear Calc 45.5 Estimated GFR 41 POC Glucose 185 H Random Glucose Calcium Random Vancomycin 46.7 H* 03/11/22 03/11/22 03/12/22 15:03 19:39 05:29 MCV MCH MCHC RDW Plt Count MPV Immature Gran % (Auto) Neut % (Auto) Lymph % (Auto) [place] % (Auto) Eos % (Auto) Baso % (Auto) Lymph # (Auto) [place] # (Auto) Eos # (Auto) Baso # (Auto) Abs Immat Gran (auto) Absolute Neuts (auto) Absolute Nucleated RBC Nucleated RBC % (auto) Anion Gap 15 Estim Creat Clear Calc 46.9 Estimated GFR 42 POC Glucose 140 H 294 H Random Glucose 144 H Calcium 8.9 Random Vancomycin 03/12/22 03/12/22 05:29 07:54 MCV 90.3 MCH 29.5 MCHC 32.7 RDW 14.3 Plt Count 364 D MPV 10.0 Immature Gran % (Auto) 0.6 H Neut % (Auto) 77.1 H Lymph % (Auto) 10.3 L [place]gs % (Auto) 10.9 Eos % (Auto) 0.9 Baso % (Auto) 0.2 Lymph # (Auto) 1.4 [place] # (Auto) 1.5 H Eos # (Auto) 0.1 Baso # (Auto) 0.0 Abs Immat Gran (auto) 0.08 H Absolute Neuts (auto) 10.3 H Absolute Nucleated RBC 0.000 Nucleated RBC % (auto) 0.0 Anion Gap Estim Creat Clear Calc Estimated GFR POC Glucose 142 H Random Glucose Calcium Random Vancomycin Assessment and Plan (1) Influenza A: Status: Acute Plan 67-year-old male with recent transmetatarsal amputation of left foot presents to the hospital with complaints hyperglycemia as well as pain in left wound Hyperkalemia. K 5.4 Lokelma hold losartan, aldactone follow BMP Hypoglycemia. Resolved likely secondary to taking insulin with low oral intake ss, ada diet Treseba on hold status post transmetatarsal amputation of left foot with delayed surgical wound healing patient has elevated ESR, CRP, pain seems stable seen by vascular, not concerned for infection, does not need MRI; inflammatory markers elevated likely due to recent amputation ID agrees, antibiotics can be discontinued outpatient vascular surgery follow up elevated vanco trough vanco d/c 03/10 follow BMP acute on chronic anemia no active bleeding noted s/p 1 unit of prbc with appropriate rise in H/H H/H stable CKD3 creatinine appears within baseline follow BMP influenza a infection no hypoxia chest x-ray with no acute findings continue Tamiflu HFpEF not in exacerbation continue home furosemide HTN hold losartan, aldactone on hold for hyperkalemia continue metoprolol, hydralazine, isosorbide, amlodipine hyperlipidemia continue statin DVT prophylaxis: mechanical devices due to anemia seen by PT - rec STR attending - Dr. Alston requires ongoing inpatient hospitalization for monitor of blood sugar, potassium level, safe disposition Time Spent With Patient Time: Total time managing care of this patient today ____ minutes. Quality Stroke Does the patient have a stroke diagnosis?: No VTE Prior VTE?: No VTE Risk Level:: Medical - moderate - high VTE Device Contraindication: N/A - Device Ordered VTE Drug Contraindication: Treatment Not Indicated
--- NOTE | 2022-03-12 11:08 | MHC.CM.PN ---
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 HE IS AWARE THAT THERE ARE CURRENTLY NO SNF BED OFFERS AND THAT THE REFERRALS ARE GOING TO HAVE TO BE EXTENDED OUT OF THE AREA PATIENT PREFERS TO WAIT FOR A BED OFFER, HE DOES NOT YET FEEL SAFE TO RETURN HOME IMM 03/12/22 SIGNED AND COPY IN CHART
[2022-03-12] MEDS: Insulin Lispro 100 UNIT/ML 3 ML VIAL SUBCUT ×3 (11:39→20:49)
[2022-03-12 11:46] LABS: Glucose, Whole Blood 334 mg/dL (60-115)
[2022-03-12 14:02] VITALS: BP 135/63
[2022-03-12 15:31] VITALS: BP 127/59; PULSE 82; RESP 20; TEMP 36; O2SAT 92
[2022-03-12 16:37] LABS: Glucose, Whole Blood 265 mg/dL (60-115)
[2022-03-12] MEDS: amLODIPine Besylate 10 MG TABLET PO (16:44)
[2022-03-12 18:53] VITALS: BP 125/45; PULSE 65; RESP 20; TEMP 36.6; O2SAT 96
[2022-03-12 20:34] LABS: Glucose, Whole Blood 234 mg/dL (60-115)
[2022-03-12] MEDS: Tamsulosin HCL 0.4 MG CAPSULE PO (20:50)
[2022-03-12 20:58] VITALS: RESP 18
[2022-03-13] MEDS: Acetaminophen 325 MG TABLET 650 MG PO ×3 (00:03→19:34)
[2022-03-13] MEDS: oxyCODONE HCl Immed Release 5 MG TABLET PO ×3 (00:09→19:33)
[2022-03-13] MEDS: 0.9 % Sodium Chloride Flush 3 ML SYRINGE IVFLUSH ×4 (00:12→19:39)
[2022-03-13 04:00] VITALS: BP 170/75; PULSE 76; RESP 18; TEMP 36.3; O2SAT 95
[2022-03-13 07:42] VITALS: BP 187/86; PULSE 80; RESP 17; TEMP 36.8; O2SAT 97
[2022-03-13] MEDS: Morphine Sulfate 4 MG/ML CARTRIDGE IVPUSH ×2 (07:56→16:43)
[2022-03-13] MEDS: Metoprolol Succinate ER 100 MG TAB.ER.24H PO (07:57)
[2022-03-13] MEDS: Insulin Lispro 100 UNIT/ML 3 ML VIAL SUBCUT ×4 (07:57→19:39)
[2022-03-13] MEDS: hydrALAZINE HCl 50 MG TABLET 100 MG PO ×3 (07:57→19:33)
[2022-03-13] MEDS: Furosemide 40 MG TABLET PO ×2 (07:58→19:33)
[2022-03-13] MEDS: Sertraline HCL 50 MG TABLET PO (07:58)
[2022-03-13] MEDS: Atorvastatin Calcium 80 MG TABLET PO (07:58)
[2022-03-13] MEDS: Oseltamivir Phosphate 30 MG CAPSULE PO (07:58)
[2022-03-13] MEDS: Isosorbide Mononitrate 60 MG TAB.ER.24H PO (07:58)
[2022-03-13 08:22] LABS: Anion Gap 15 (12-20); Blood Urea Nitrogen 39 mg/dL (9-16); Calcium 8.7 mg/dL (8.4-10.2); Carbon Dioxide 24 mmol/L (22-29); Chloride 103 mmol/L (96-108); Creatinine Clr Calc Pharmacy 48.7; Estimated Glomerular Filt Rate 44; Glucose Random 173 mg/dL (60-115); Potassium 4.6 mmol/L (3.3-5.1); Sodium 137 mmol/L (135-145)
[2022-03-13 09:03] LABS: Glucose, Whole Blood 155 mg/dL (60-115)
--- NOTE | 2022-03-13 10:52 | P.PNIM_ITS ---
Subjective Subjective Date of Service: 03/13/22 Interval History: seen and examined this morning follow up for influenza, left foot stump pain, hypoglycemia dry cough, no sob Review of Systems Review of Systems: Yes all other systems are reviewed and are negative Constitutional Constitutional: Denies chills and Denies fever(s) Cardiovascular Cardiovascular: Denies chest pain, Denies palpitations and Denies dyspnea Respiratory Respiratory: Reports cough and Denies dyspnea Endocrine Endocrine: Denies palpitations Physical Exam Vital Signs: Vital Signs: Last Vital Signs Temp 98.2 F 03/13/22 07:42 Pulse 80 03/13/22 07:42 Resp 17 03/13/22 07:42 BP 187/86 H 03/13/22 07:42 Pulse Ox 97 03/13/22 07:42 O2 Del Method 03/13/22 07:42 BMI result Body Mass Index 28.8 Appearing in no acute distress lung sounds are clear to auscultation heart regular rate rhythm, clear S1, S2 positive bowel sounds, abdomen is soft, nontender neuro patient is alert x3, no focal deficits Left foot stump dressing intact Objective Data Active Medications Acetaminophen (Acetaminophen 325 Mg Tablet) 650 mg PO Q6H PRN PRN Reason: Pain, Mild (Pain Scale 1-3) Last Admin: 03/13/22 09:42 Dose: 650 mg Documented By: BINDU Amlodipine Besylate (Amlodipine Besylate 10 Mg Tablet) 10 mg PO DAILY@1700 [facility]; Protocol Last Admin: 03/12/22 16:44 Dose: 10 mg Documented By: NAVNEET Atorvastatin Calcium (Atorvastatin Calcium 80 Mg Tablet) 80 mg PO DAILY [facility] Last Admin: 03/13/22 07:58 Dose: 80 mg Documented By: NALLELY Dextrose (Dextrose 50 % 25 Gm/50 Ml Syringe) 25 gm IVPUSH Q15M PRN; Protocol PRN Reason: per Hypoglycemia Standing Ord. Dextrose (Dextrose 50 % 25 Gm/50 Ml Syringe) 25 gm IVPUSH Q15M PRN; Protocol PRN Reason: per Hypoglycemia Standing Ord. Furosemide (Furosemide 40 Mg Tablet) 40 mg PO BID [facility]; Protocol Last Admin: 03/13/22 07:58 Dose: 40 mg Documented By: NALLELY Glucose (Glucose Gel 15 Gm Gel..Gram.) 15 gm PO Q15M PRN; Protocol PRN Reason: per Hypoglycemia Standing Ord. Guaifenesin/Dextromethorphan (Guaifenesin Dm 100/10/5 Ml 5 Ml Syrup) 5 ml PO Q4H PRN PRN Reason: cough Last Admin: 03/12/22 20:58 Dose: 5 ml Documented By: LATIA Hydralazine HCl (Hydralazine Hcl 50 Mg Tablet) 100 mg PO TID [facility]; Protocol Last Admin: 03/13/22 07:57 Dose: 100 mg Documented By: NALLELY Insulin Human Lispro (Insulin Lispro 100 Unit/Ml 3 Ml Vial) 0 unit SUBCUT QIDACHS [facility]; Protocol Last Admin: 03/13/22 07:57 Dose: 2 unit Documented By: NALLELY Isosorbide Mononitrate (Isosorbide Mononitrate 60 Mg Tab.Er.24h) 60 mg PO DAILY [facility]; Protocol Last Admin: 03/13/22 07:58 Dose: 60 mg Documented By: NALLELY Metoprolol Succinate (Metoprolol Succinate Er 100 Mg Tab.Er.24h) 100 mg PO DAILY [facility]; Protocol Last Admin: 03/13/22 07:57 Dose: 100 mg Documented By: NALLELY Morphine Sulfate (Morphine Sulfate 4 Mg/Ml Cartridge) 4 mg IVPUSH Q4H PRN; Protocol PRN Reason: Pain, Severe (Pain Scale 7-10) Last Admin: 03/13/22 07:56 Dose: 4 mg Documented By: NALLELY Ondansetron HCl (Ondansetron Hcl 4 Mg/2 Ml Vial) 4 mg IVPUSH Q8H PRN PRN Reason: Nausea and Vomiting Oxycodone HCl (Oxycodone Hcl Immed Release 5 Mg Tablet) 5 mg PO Q6H PRN PRN Reason: Pain, Moderate (Pain Scale 4-6 Last Admin: 03/13/22 09:42 Dose: 5 mg Documented By: BINDU Pharmacy Consult (Consult Rx Vancomycin Dosing) 1 each MISCELLANE DAILY PRN PRN Reason: Consult order Pharmacy Consult (Consult Rx Perform Med Rec) 1 each MISCELLANE ONCE PRN PRN Reason: Consult order Sertraline HCl (Sertraline Hcl 50 Mg Tablet) 50 mg PO DAILY [facility] Last Admin: 03/13/22 07:58 Dose: 50 mg Documented By: HO.DABA Sodium Chloride (0.9 % Sodium Chloride Flush 3 Ml Syringe) 3 ml IVFLUSH QSHIFT [facility] Last Admin: 03/13/22 07:57 Dose: 3 ml Documented By: DABA Tamsulosin HCl (Tamsulosin Hcl 0.4 Mg Capsule) 0.4 mg PO BEDTIME [facility] Last Admin: 03/12/22 20:50 Dose: 0.4 mg Documented By: TUMASY Labs CBC & Chem 7: 03/12/22 05:29 03/13/22 07:55 Labs: Laboratory Results - last 24 hr 03/12/22 03/12/22 03/12/22 11:19 16:32 20:23 Anion Gap Estim Creat Clear Calc Estimated GFR POC Glucose 334 H 265 H 234 H Random Glucose Calcium 03/13/22 03/13/22 07:40 07:55 Anion Gap 15 Estim Creat Clear Calc 48.7 Estimated GFR 44 POC Glucose 155 H Random Glucose 173 H Calcium 8.7 Assessment and Plan (1) Influenza A: Status: Acute Plan 67-year-old male with recent transmetatarsal amputation of left foot presents to the hospital with complaints hyperglycemia as well as pain in left wound Hyperkalemia. Resolved Lokelma hold losartan, aldactone follow BMP Hypoglycemia. Resolved likely secondary to taking insulin with low oral intake ss, ada diet Treseba on hold status post transmetatarsal amputation of left foot with delayed surgical wound healing patient has elevated ESR, CRP, pain seems stable seen by vascular, not concerned for infection, does not need MRI; inflammatory markers elevated likely due to recent amputation ID agrees, antibiotics can be discontinued outpatient vascular surgery follow up elevated vanco trough vanco d/c 03/10 follow BMP acute on chronic anemia no active bleeding noted s/p 1 unit of prbc with appropriate rise in H/H H/H stable CKD3 creatinine appears within baseline follow BMP influenza a infection no hypoxia chest x-ray with no acute findings continue Tamiflu HFpEF not in exacerbation continue home furosemide HTN hold losartan, aldactone on hold for hyperkalemia continue metoprolol, hydralazine, isosorbide, amlodipine hyperlipidemia continue statin DVT prophylaxis: mechanical devices due to anemia seen by PT - rec STR attending - Dr. Addison requires ongoing inpatient hospitalization for monitor of blood sugar, potassium level, safe disposition Time Spent With Patient Time: Total time managing care of this patient today ____ minutes. Quality Stroke Does the patient have a stroke diagnosis?: No VTE Prior VTE?: No VTE Risk Level:: Medical - moderate - high VTE Device Contraindication: N/A - Device Ordered VTE Drug Contraindication: Treatment Not Indicated
[2022-03-13 11:49] LABS: Glucose, Whole Blood 239 mg/dL (60-115)
[2022-03-13 15:59] VITALS: BP 155/70; PULSE 76; RESP 20; TEMP 36.5; O2SAT 93
[2022-03-13 16:27] LABS: Glucose, Whole Blood 294 mg/dL (60-115)
[2022-03-13] MEDS: amLODIPine Besylate 10 MG TABLET PO (16:35)
[2022-03-13 19:12] VITALS: BP 146/60; PULSE 76; RESP 18; TEMP 36.8; O2SAT 96
[2022-03-13 19:30] LABS: Glucose, Whole Blood 277 mg/dL (60-115)
[2022-03-13] MEDS: Tamsulosin HCL 0.4 MG CAPSULE PO (19:33)
[2022-03-13] MEDS: guaiFENesin DM 100/10/5 ML 5 ML SYRUP PO (19:38)
[2022-03-13] MEDS: diphenhydrAMINE HCL 25 MG CAPSULE PO (22:19)
[2022-03-14 03:28] VITALS: BP 180/70; PULSE 92; RESP 18; TEMP 37.3; O2SAT 97
[2022-03-14] MEDS: Acetaminophen 325 MG TABLET 650 MG PO (03:36)
[2022-03-14] MEDS: oxyCODONE HCl Immed Release 5 MG TABLET PO ×3 (03:37→11:42)
[2022-03-14] MEDS: Morphine Sulfate 4 MG/ML CARTRIDGE IVPUSH (05:29)
[2022-03-14 06:01] VITALS: BP 146/60
[2022-03-14 07:30] LABS: Anion Gap 13 (12-20); Blood Urea Nitrogen 39 mg/dL (9-16); Calcium 8.6 mg/dL (8.4-10.2); Carbon Dioxide 25 mmol/L (22-29); Chloride 101 mmol/L (96-108); Creatinine Clr Calc Pharmacy 47.5; Estimated Glomerular Filt Rate 43; Glucose Random 270 mg/dL (60-115); Potassium 4.4 mmol/L (3.3-5.1); Sodium 135 mmol/L (135-145)
[2022-03-14] MEDS: Atorvastatin Calcium 80 MG TABLET PO (07:44)
[2022-03-14] MEDS: Furosemide 40 MG TABLET PO (07:44)
[2022-03-14] MEDS: Sertraline HCL 50 MG TABLET PO (07:44)
[2022-03-14] MEDS: Metoprolol Succinate ER 100 MG TAB.ER.24H PO (07:44)
[2022-03-14] MEDS: Insulin Lispro 100 UNIT/ML 3 ML VIAL SUBCUT ×2 (07:44→11:42)
[2022-03-14] MEDS: Isosorbide Mononitrate 60 MG TAB.ER.24H PO (07:44)
[2022-03-14] MEDS: hydrALAZINE HCl 50 MG TABLET 100 MG PO (07:44)
[2022-03-14 07:46] LABS: Glucose, Whole Blood 286 mg/dL (60-115)
[2022-03-14] MEDS: 0.9 % Sodium Chloride Flush 3 ML SYRINGE IVFLUSH (07:47)
[2022-03-14 08:00] VITALS: BP 158/64; PULSE 76; RESP 18; TEMP 36.5; O2SAT 97
--- NOTE | 2022-03-14 09:34 | P.PNIM_ITS ---
Subjective Subjective Date of Service: 03/14/22 Interval History: seen and examined this morning follow up for influenza, left foot stump pain, hypoglycemia dry cough, no sob Review of Systems Review of Systems: Yes all other systems are reviewed and are negative Constitutional Constitutional: Denies chills and Denies fever(s) Cardiovascular Cardiovascular: Denies chest pain, Denies palpitations and Denies dyspnea Respiratory Respiratory: Reports cough and Denies dyspnea Endocrine Endocrine: Denies palpitations Physical Exam Vital Signs: Vital Signs: Last Vital Signs Temp 97.7 F 03/14/22 08:00 Pulse 76 03/14/22 08:00 Resp 18 03/14/22 08:00 BP 158/64 H 03/14/22 08:00 Pulse Ox 97 03/14/22 08:00 O2 Del Method 03/14/22 08:00 BMI result Body Mass Index 28.8 Appearing in no acute distress lung sounds are clear to auscultation heart regular rate rhythm, clear S1, S2 positive bowel sounds, abdomen is soft, nontender neuro patient is alert x3, no focal deficits Left foot TMA site Objective Data Active Medications Acetaminophen (Acetaminophen 325 Mg Tablet) 650 mg PO Q6H PRN PRN Reason: Pain, Mild (Pain Scale 1-3) Last Admin: 03/14/22 03:36 Dose: 650 mg Documented By: JULIA Amlodipine Besylate (Amlodipine Besylate 10 Mg Tablet) 10 mg PO DAILY@1700 [facility]; Protocol Last Admin: 03/13/22 16:35 Dose: 10 mg Documented By: BINDU Atorvastatin Calcium (Atorvastatin Calcium 80 Mg Tablet) 80 mg PO DAILY [facility] Last Admin: 03/14/22 07:44 Dose: 80 mg Documented By: NALLELY Dextrose (Dextrose 50 % 25 Gm/50 Ml Syringe) 25 gm IVPUSH Q15M PRN; Protocol PRN Reason: per Hypoglycemia Standing Ord. Dextrose (Dextrose 50 % 25 Gm/50 Ml Syringe) 25 gm IVPUSH Q15M PRN; Protocol PRN Reason: per Hypoglycemia Standing Ord. Furosemide (Furosemide 40 Mg Tablet) 40 mg PO BID [facility]; Protocol Last Admin: 03/14/22 07:44 Dose: 40 mg Documented By: NALLELY Glucose (Glucose Gel 15 Gm Gel..Gram.) 15 gm PO Q15M PRN; Protocol PRN Reason: per Hypoglycemia Standing Ord. Guaifenesin/Dextromethorphan (Guaifenesin Dm 100/10/5 Ml 5 Ml Syrup) 5 ml PO Q4H PRN PRN Reason: cough Last Admin: 03/13/22 19:38 Dose: 5 ml Documented By: JULIA Hydralazine HCl (Hydralazine Hcl 50 Mg Tablet) 100 mg PO TID [facility]; Protocol Last Admin: 03/14/22 07:44 Dose: 100 mg Documented By: NALLELY Insulin Human Lispro (Insulin Lispro 100 Unit/Ml 3 Ml Vial) 0 unit SUBCUT QIDACHS [facility]; Protocol Last Admin: 03/14/22 07:44 Dose: 6 unit Documented By: NALLELY Isosorbide Mononitrate (Isosorbide Mononitrate 60 Mg Tab.Er.24h) 60 mg PO DAILY [facility]; Protocol Last Admin: 03/14/22 07:44 Dose: 60 mg Documented By: NALLELY Metoprolol Succinate (Metoprolol Succinate Er 100 Mg Tab.Er.24h) 100 mg PO DAILY [facility]; Protocol Last Admin: 03/14/22 07:44 Dose: 100 mg Documented By: NALLELY Morphine Sulfate (Morphine Sulfate 4 Mg/Ml Cartridge) 4 mg IVPUSH Q4H PRN; Protocol PRN Reason: Pain, Severe (Pain Scale 7-10) Last Admin: 03/14/22 05:29 Dose: 4 mg Documented By: JULIA Ondansetron HCl (Ondansetron Hcl 4 Mg/2 Ml Vial) 4 mg IVPUSH Q8H PRN PRN Reason: Nausea and Vomiting Oxycodone HCl (Oxycodone Hcl Immed Release 5 Mg Tablet) 5 mg PO Q6H PRN PRN Reason: Pain, Moderate (Pain Scale 4-6 Last Admin: 03/14/22 03:37 Dose: 5 mg Documented By: JULIA Pharmacy Consult (Consult Rx Vancomycin Dosing) 1 each MISCELLANE DAILY PRN PRN Reason: Consult order Pharmacy Consult (Consult Rx Perform Med Rec) 1 each MISCELLANE ONCE PRN PRN Reason: Consult order Sertraline HCl (Sertraline Hcl 50 Mg Tablet) 50 mg PO DAILY [facility] Last Admin: 03/14/22 07:44 Dose: 50 mg Documented By: NALLELY Sodium Chloride (0.9 % Sodium Chloride Flush 3 Ml Syringe) 3 ml IVFLUSH QSHIFT [facility] Last Admin: 03/14/22 07:47 Dose: 3 ml Documented By: NALLELY Tamsulosin HCl (Tamsulosin Hcl 0.4 Mg Capsule) 0.4 mg PO BEDTIME [facility] Last Admin: 03/13/22 19:33 Dose: 0.4 mg Documented By: RONALDOQC Labs CBC & Chem 7: 03/12/22 05:29 03/14/22 05:57 Labs: Laboratory Results - last 24 hr 03/13/22 03/13/22 03/13/22 11:45 16:04 19:25 Anion Gap Estim Creat Clear Calc Estimated GFR POC Glucose 239 H 294 H 277 H Random Glucose Calcium 03/14/22 03/14/22 05:57 07:39 Anion Gap 13 Estim Creat Clear Calc 47.5 Estimated GFR 43 POC Glucose 286 H Random Glucose 270 H Calcium 8.6 Microbiology Microbiology Results: Microbiology 03/08/22 19:39 Blood Culture - Final Blood - Venous No growth after 5 days. 03/08/22 19:34 Blood Culture - Final Blood - Venous No growth after 5 days. Assessment and Plan (1) Influenza A: Status: Acute Plan 67-year-old male with recent transmetatarsal amputation of left foot presents to the hospital with complaints hyperglycemia as well as pain in left wound Status post transmetatarsal amputation of left foot with delayed surgical wound healing completed abx Still with pain and discoloration, will discuss with vascular surgeon Hyperkalemia. Resolved Lokelma hold losartan, aldactone follow BMP Hypoglycemia. Resolved likely secondary to taking insulin with low oral intake ss, ada diet Treseba on hold elevated vanco trough vanco d/c 03/10 follow BMP acute on chronic anemia no active bleeding noted s/p 1 unit of prbc with appropriate rise in H/H H/H stable CKD3 creatinine appears within baseline follow BMP influenza a infection no hypoxia chest x-ray with no acute findings continue Tamiflu HFpEF not in exacerbation continue home furosemide HTN hold losartan, aldactone on hold for hyperkalemia continue metoprolol, hydralazine, isosorbide, amlodipine hyperlipidemia continue statin DVT prophylaxis: mechanical devices due to anemia seen by PT - rec STR attending - Dr. Addison requires ongoing inpatient hospitalization for monitor of blood sugar, potassium level, safe disposition Time Spent With Patient Time: Total time managing care of this patient today ____ minutes. Quality Stroke Does the patient have a stroke diagnosis?: No VTE Prior VTE?: No VTE Risk Level:: Medical - moderate - high VTE Device Contraindication: N/A - Device Ordered VTE Drug Contraindication: Treatment Not Indicated
--- NOTE | 2022-03-14 10:21 | MHC.CM.PN ---
PATIENT AMBULATES INDEPENDENTLY IN ROOM WITH [facility] WILL NEED UPDATED P.T. NOTE CM ATTEMPTING TO SEND PATIENT HOME WITH RESUMPTION OF HIS SERVICES
--- NOTE | 2022-03-14 10:50 | HO.VASCPN ---
Subjective Subjective Date of Service: 03/14/22 Patient reports: no new complaints and still having pain Interval history: Very pleasant 67-year-old gentleman presents for follow-up regarding transmetatarsal amputation. Appears to be doing relatively well. No interval issues. He reports that the trans met site has some mild pain associated with it. In general better since admission. But still some discomfort. He now presents for follow-up. Physical Exam Vital Signs: Vital Signs: Last Vital Signs Temp 97.7 F 03/14/22 08:00 Pulse 76 03/14/22 08:00 Resp 18 03/14/22 08:00 BP 158/64 H 03/14/22 08:00 Pulse Ox 97 03/14/22 08:00 O2 Del Method 03/14/22 08:00 BMI result Body Mass Index 28.8 Const: General: cooperative, healthy appearing and no acute distress Orientation/consciousness: oriented to person, oriented to place and oriented to time HEENT: Head: Yes normal to inspection Neck: Carotids: no bruits Chest: Chest palpation & inspection: normal inspection of the chest Resp: Effort & Inspection: normal respiratory effort and able to speak in complete sentences Auscultation: clear to auscultation bilaterally Cardio: Rate: regular rate Heart sounds: S1 normal heart sound present and S2 normal heart sound present GI: Inspection: Yes normal to inspection Skin: Other: Approximately 50% take of flap. Central wedge which is dry. General skin exam: no rashes or lesions noted Wounds: no wounds Neuro: General: oriented to person, oriented to place, oriented to time and CN's II-XI intact bilaterally Extrem: General: Yes normal to inspection, Yes full ROM and Yes no clubbing, cyanosis or edema Psych: Appearance: grossly normal and well kempt Speech and movement: Normal speech and movement present Affect: normal affect Progress Note: A&P Assessment and plan (1) PAD (peripheral artery disease): Status: Acute Assessment and Plan: In short patient has a poorly healing transmetatarsal amputation. It is dry and does not appear infected. There is greater than 50% take. I would like to manage this as conservatively as possible. We will continue to monitor his status. He is stable from my perspective for transfer to rehab facility. He will follow up with us on as an outpatient. During his stay at the facility would recommend a dry protective dressing of a Kerlix wrap to be changed every other day. Thank you for allowing us to assist in his care. If there are any questions or concerns please do not hesitate to contact us. Time Spent With Patient Time: Total time managing care of this patient today ____ minutes. Procedures Date of Service Date of Service: 03/14/22 Quality Stroke Does the patient have a stroke diagnosis?: No VTE Prior VTE?: No VTE Risk Level:: Medical - moderate - high VTE Device Contraindication: N/A - Device Ordered VTE Drug Contraindication: Treatment Not Indicated
[2022-03-14 11:25] LABS: Glucose, Whole Blood 254 mg/dL (60-115)
--- NOTE | 2022-03-14 12:03 | MHC.CM.PN ---
PATIENT IS DC TO HOME WITH RESUMPTION OF HER COMFORT [facility]. RN AWARE OF PLAN.
[2022-03-14 12:55] VITALS: PULSE 76; O2SAT 97
--- NOTE | 2022-03-14 13:10 | PM.DS ---
DS: Providers Provider Date of Service: 03/14/22 Date of admission: 03/08/22 22:07 Primary care physician: Alexa Cohn MD Consults: 03/09/22 00:55 Consult to Vascular Surgery Routine Consulting Provider: Lyle Topete Reason for consultation: foot wound Has provider been notified: No 03/09/22 06:55 Consult to Infectious Diseases Routine Consulting Provider: Carmel Ochoa Reason for consultation: slow healing wound DS: Diagnosis Discharge Diagnosis (1) PAD (peripheral artery disease): Status: Acute DS: Summary Hospital Course Hospital Course: HP as per admitting provider 67-year-old male with past medical history of diabetes, CKD, HLD, HTN, peripheral vascular disease, history of CHF, presents the hospital with complaints of low sugar readings.? Patient reports that for the past 3 4 days he has had low oral intake, has continued to take his insulin, on checking his sugars today he was hypoglycemic therefore decided to come to the hospital.? of note patient underwent left great toe amputation on 01/25, which continue to remain on healing, after that he had undergone diagnostic angiogram and subsequent left transmetatarsal amputation on 02/06.? He was seen by Dr. Topete 03/06 for slow healing wound, as well as pain in his wound pt was taking augmentin for the wound which as ocntinued. today he reports significant 10/10 pain although reports that the wound itself looks better and he does not feel that there is any drainage or infection. Patient denies any headache, dizziness, no abdominal pain nausea or vomiting, no diarrhea constipation, no urinary symptoms.? On arrival to the ED patient hemodynamically stable with no significant abnormal vitals except a temperature of 101.3 degrees Labs are significant for WBC count of 12.2, hemoglobin of 7.1 with dropped from 8.8 on February 13 , ESR of >140 which increased from previous, CRP of 18,? creatinine of 1.84 which is close to his baseline,glucose found to be in the 40s, patient placed on d5 with? improvement of his glucose?found to be? influenza A positive chest x-ray shows mild cardiomegaly with no acute process foot x-ray shows transmetatarsal amputation,? suggest soft tissue wound along the medial aspect of the amputation stump overlying the base of the 1st metatarsal, dorsal soft tissue swelling patient started on IV antibiotics and will be admitted for f for further management . Status post transmetatarsal amputation of left foot with delayed surgical wound healing completed abx Still with pain and discoloration, seen by vascular surgery, follow up as outpatient, no further intervention required at this time Hyperkalemia. Resolved Lokelma held losartan, aldactone, continue at home follow BMP Hypoglycemia. Resolved likely secondary to taking insulin with low oral intake acute on chronic anemia no active bleeding noted s/p 1 unit of prbc with appropriate rise in H/H CKD3 creatinine appears within baseline influenza a infection no hypoxia chest x-ray with no acute findings s/p Tamiflu HFpEF not in exacerbation continue home furosemide HTN continue home medications hyperlipidemia continue statin Time Spent with Patient Time attestation: Total time managing care of this patient today ____ minutes. Discharge coordination time: Greater than 30 minutes Quality: Safe Use of Opioids Does Pt have an Active Cancer Diagnosis on the Problem List?: No Quality: Stroke Does the patient have a stroke diagnosis?: No Physical Exam Vital Signs: Vital Signs: Last Vital Signs Temp 97.7 F 03/14/22 08:00 Pulse 76 03/14/22 12:55 Resp 18 03/14/22 08:00 BP 158/64 H 03/14/22 08:00 Pulse Ox 97 03/14/22 12:55 O2 Del Method 03/14/22 08:00 BMI result Body Mass Index 28.8 Appearing in no acute distress head is normocephalic atraumatic eyes pupils are PERRLA sclera is anicteric mouth throat mucous membranes are intact and moist neck is supple no lymphadenopathy, no JVD noted lung sounds are clear to auscultation heart regular rate rhythm, clear S1, S2 positive bowel sounds, abdomen is soft, nontender neuro patient is alert x3, no focal deficits Bilateral TMA mild eschar to flap of left TMA DS: Data Data Completed and Pending Completed studies during hospitalization [Text1]: Procedures Detachment at Left 1st Toe, Complete, Open Approach (01/24/22) Detachment at Left Foot, Partial 1st Ray, Open Approach (02/02/22) Detachment at Left Foot, Partial 2nd Ray, Open Approach (02/02/22) Detachment at Left Foot, Partial 3rd Ray, Open Approach (02/02/22) Detachment at Left Foot, Partial 4th Ray, Open Approach (02/02/22) Detachment at Left Foot, Partial 5th Ray, Open Approach (02/02/22) Extirpation of Matter from Left Femoral Artery, Open Approach (01/03/22) Fluoroscopy of Aorta and Bilateral Lower Extremity Arteries (01/03/22) Plain Radiography of Aorta and Bilateral Lower Extremity Arteries using Low Osmolar Contrast (01/24/22) Supplement Left Femoral Artery with Synthetic Substitute, Open Approach (01/03/22) Transfusion of Nonautologous Red Blood Cells into Peripheral Vein, Percutaneous Approach (02/02/22) Labs on day of discharge: Laboratory Results - last 24 hr 03/13/22 03/13/22 03/14/22 16:04 19:25 05:57 Sodium 135 Potassium 4.4 Chloride 101 Carbon Dioxide 25 Anion Gap 13 BUN 39 H Creatinine 1.61 H Estim Creat Clear Calc 47.5 Estimated GFR 43 POC Glucose 294 H 277 H Random Glucose 270 H Calcium 8.6 03/14/22 03/14/22 07:39 11:19 Sodium Potassium Chloride Carbon Dioxide Anion Gap BUN Creatinine Estim Creat Clear Calc Estimated GFR POC Glucose 286 H 254 H Random Glucose Calcium Discharge Plan Discharge Anticipated Discharge Date/Time: 03/14/22 13:07 Patient Disposition: Home Health Service Discharge Diagnosis: Transmetatarsal amputation of left foot with delayed surgical wound healing Hyperkalemia Hypoglycemia Influenza a Referrals: [facility] [Outside] - 1 Week Alexa Cohn MD [Primary Care Provider] - 1 Week Lyle Topete MD [Physician] - 1 Week Discharge Medications: New oxycodone 5 mg Tablet 5 mg PO Q6H PRN (Reason: Pain, Moderate (Pain Scale 4-6) Qty: 20 0RF Rx Instructions: Partial Fill upon patient request. Continued tamsulosin 0.4 mg capsule 0.4 mg PO BEDTIME Qty: 30 2RF insulin degludec [Tresiba FlexTouch U-100] 100 unit/mL (3 mL) insulin pen 25 unit subcut QPM oxycodone-acetaminophen [Percocet] 5-325 mg tablet 1 tab PO Q8H PRN (Reason: pain) Qty: 14 0RF Rx Instructions: Partial Fill upon patient request. amlodipine 10 mg Tablet 10 mg PO DAILY@1700 30 Days Qty: 30 0RF Protocol: Hold for SBP< HOLD for SBP < : 90 spironolactone 25 mg Tablet 25 mg PO DAILY Qty: 30 0RF Protocol: Hold for SBP< HOLD for SBP < : 90 isosorbide mononitrate 60 mg Tablet Extended Release 24 Hr 60 mg PO DAILY Qty: 30 0RF Protocol: Hold for SBP< HOLD for SBP < : 90 docusate sodium 100 mg Capsule 100 mg PO BEDTIME Qty: 30 0RF hydralazine 50 mg Tablet 100 mg PO TID Qty: 90 0RF Protocol: Hold for SBP< HOLD for SBP < : 90 losartan 50 mg tablet 100 mg PO QAM Qty: 60 0RF furosemide 40 mg tablet 40 mg PO BID Qty: 60 0RF Januvia 100 mg tablet 100 mg PO DAILY sertraline 50 mg tablet 50 mg PO DAILY fluticasone propionate 50 mcg/actuation spray,suspension 2 spray intranasal QAM PRN (Reason: Nasal Congestion) metformin 1,000 mg tablet 1,000 mg PO BID metoprolol succinate 100 mg tablet extended release 24 hr 100 mg PO DAILY glipizide 10 mg tablet 20 mg PO BID atorvastatin 80 mg tablet 80 mg PO DAILY povidone-iodine 10 % solution See Rx Instructions .ROUTE .COMPLEX Rx Instructions: APPLY TOPICALLY TO TOES DAILY Discontinued amoxicillin-pot clavulanate 875-125 mg tablet 1 tab PO BID Qty: 20 0RF Discharge Orders: Discharge Order (Routine); Ordered 03/14/22 Ordered By: Erin Self Diet: Advance to usual diet Activity on Discharge: Use cane or walker Stand Alone Forms: Patient Portal Discharge page Care Plan Goals: complete resolution of symptoms Health Concerns: Transmetatarsal amputation of left foot with delayed surgical wound healing Hyperkalemia Hypoglycemia Influenza a Plan of Treatment: Follow-up with the vascular surgeon for further management of left transmetatarsal amputation Take all medications as prescribed Assessment: see discharge summary
== END 2022-03-14 13:52 | disposition home health service (06) | DRG 565 ==
LOC: HO.ED 20:50 → HO.EDOVER 22:13 → HO.S3 03-10 15:17
PROVIDERS: Physician Assistant; Physician Assistant Medical; Surgery Vascular Surgery; Admitting Provider Internal Medicine; Emergency Provider Emergency Medicine; PCP Obstetrics & Gynecology Gynecology; Visit Provider Nurse Practitioner Acute Care
DX: T87.81 Dehiscence of amputation stump (principal); I13.0 Hypertensive heart and chronic kidney disease with heart failure and stage 1 through stage 4 chronic kidney disease, or unspecified chronic kidney disease; L03.116 Cellulitis of left lower limb; I50.32 Chronic diastolic (congestive) heart failure; Y83.5 Amputation of limb(s) as the cause of abnormal reaction of the patient, or of later complication, without mention of misadventure at the time of the procedure; E11.649 Type 2 diabetes mellitus with hypoglycemia without coma; J10.1 Influenza due to other identified influenza virus with other respiratory manifestations; D63.1 Anemia in chronic kidney disease; E78.00 Pure hypercholesterolemia, unspecified; E87.5 Hyperkalemia; E11.51 Type 2 diabetes mellitus with diabetic peripheral angiopathy without gangrene; G89.18 Other acute postprocedural pain; N18.30 Chronic kidney disease, stage 3 unspecified; E11.22 Type 2 diabetes mellitus with diabetic chronic kidney disease; Z87.891 Personal history of nicotine dependence; Z79.4 Long term (current) use of insulin; Z79.51 Long term (current) use of inhaled steroids; Z79.84 Long term (current) use of oral hypoglycemic drugs; Z79.899 Other long term (current) drug therapy
CPT/HCPCS: 36415; 71045; 73620; 80048; 80053; 80202; 81001; 82565; 82607; 82728; 82746; 82947; 83605; 83735; 84100; 85025; 85027; 85652; 86140; 86850; 86900; 86901; 86923; 87040; 87502; 87635; 97116; 97161; 99285; J0692; J1170; J2270; J2543; J3370; J3475; P9016

== ENCOUNTER → 2022-03-20 12:29 | Outpatient (BNVA) | payer OTHER, SELFPAY | PROVIDERS: PCP General Practice; Visit Provider Surgery Vascular Surgery | DX: I73.9 Peripheral vascular disease, unspecified (principal); L97.929 Non-pressure chronic ulcer of unspecified part of left lower leg with unspecified severity | CPT/HCPCS: 99212 ==

== ENCOUNTER 2022-03-26 15:10 | Inpatient (IN) | payer OTHER, SELFPAY ==
--- NOTE | 2022-03-23 12:12 | HO.ANESPROP2 ---
Documented by User: Ana Stephens NP 03/23/22 12:22 HPI - Anesthesia Eval Consult details Narrative: 67yo M for Left Leg Amputation Below Knee s/p transmet amp 02/07/22 with GA-LMA 4 C admit 03/08-03/14/22 with delayed wound healing PMFSH Active Problems Active Problems: All Active Problems (Updated 03/22/22 @ 00:02 by Background Daemon) Elevated erythrocyte sedimentation rate (Acute) (HFpEF) heart failure with preserved ejection fraction (Acute) Uncontrolled hypertension (Acute) Toxic metabolic encephalopathy (Acute) Pneumonia (Acute) CHF (congestive heart failure) (Acute) Acute hypoxemic respiratory failure (Acute) Nonhealing ulcer of left lower extremity (Acute) LIVE (iron deficiency anemia) (Acute) Diabetic foot infection (Acute) Cellulitis (Acute) CKD stage 3 due to type 2 diabetes mellitus (Acute) Osteomyelitis (Acute) Kidney disease (Acute) Hyperlipidemia associated with type 2 diabetes mellitus (Acute) Type 2 diabetes mellitus (Acute) HTN (hypertension) (Acute) Past Medical History Medical History Diabetes High cholesterol HTN (hypertension) Hyperlipidemia associated with type 2 diabetes mellitus Kidney disease PAD (peripheral artery disease) Type 2 diabetes mellitus Family History Family History Other No family history of coronary artery disease Family history of problems with anesthesia: No Surgical History Surgical History H/O shoulder surgery History of amputation of right forefoot Hx of amputation Status post transmetatarsal amputation of left foot History of Problems with Anesthesia: No Social History Social History Household Members: None Housing: Apartment Do you presently have visiting nurse or other home services: Yes Alcohol intake: never Patient Tobacco Use Status: Former Tobacco user Quit Date: >20yr ago Tobacco use type: Cigarette Substance Use Type: Crack/Cocaine Are you DNR?: No Advance Directives: Yes Advance Directives on File: Yes Advance Directives Date on File: 02/02/22 Nutrition Risks: No Nutritional Risk service: No Current occupational status: retired Meds Allergies Allergy/AdvReac Type Severity Reaction Status Date / Time No Known Allergies Allergy Verified 03/26/22 12:57 [No Known Allergies*] Home Medications Medication Instructions Recorded Confirmed Last Taken Type atorvastatin 80 mg tablet 80 mg PO DAILY 04/27/21 03/08/22 02/01/22 History fluticasone propionate 50 2 spray intranasal QAM PRN Nasal 04/27/21 03/08/22 02/01/22 History mcg/actuation nasal Congestion spray,suspension glipizide 10 mg tablet 20 mg PO BID 04/27/21 03/08/22 02/01/22 History metformin 1,000 mg tablet 1,000 mg PO BID 04/27/21 03/08/22 02/01/22 History metoprolol succinate 100 mg 100 mg PO DAILY 04/27/21 03/08/22 02/01/22 History tablet,extended release 24 hr sertraline 50 mg tablet 50 mg PO DAILY 04/27/21 03/08/22 02/01/22 History sitagliptin phosphate 100 mg 100 mg PO DAILY 04/27/21 03/08/22 02/01/22 History tablet (Januvia) povidone-iodine 10 % topical See Rx Instructions .Route .COMPLEX 12/28/21 03/08/22 02/01/22 History solution insulin degludec 100 unit/mL (3 25 unit subcut QPM 01/03/22 03/08/22 02/01/22 History mL) subcutaneous pen (Tresiba FlexTouch U-100 insulin) Exam Exam Date and Time: March 23, 2022 1212 Narrative Narrative: ECHO 02/2022 Conclusions: - Normal left ventricular size, thickness, and systolic function. The visually estimated ejection fraction is between 55-60%.? ? ? - Elevated filling pressures.? - Mildly increased right ventricular cavity size.? There is? ? ? mildly decreased right ventricular systolic function.? - The left atrium is mildly dilated.? The right atrium is normal in size. ? - There is mild dilatation of the sinuses of Valsalva measuring? 3.70 cm and mild dilatation of the ascending aorta measuring 3.40 cm.? ? EKG 01/2022 Vent. Rate : 072 BPM ? ? Atrial Rate : 072 BPM ?? P-R Int : 216 ms? QRS Dur : 096 ms ? ? QT Int : 400 ms ? ? ? P-R-T Axes : 050 025 034 degrees ?? QTc Int : 438 ms ? Sinus rhythm with 1st degree A-V block Nonspecific ST abnormality Inferior leads Abnormal ECG When compared with ECG of 09-JAN-2022 13:39, No significant change was found NM ernesto perf SPECT rest & str 12/2021 Impression: ? 1.? Myocardial perfusion imaging study shows normal myocardial perfusion 2.? Gated LVEF is 57% 3. Transient ischemic dilatation not present ? EKG is nondiagnostic for ischemia Assessment and Plan Assessment Anesthesia Assessment: Chart Reviewed Final Anesthetic Review Family History of Problems with Anesthesia: No History of Problems with Anesthesia: No Documented by User: Roshan Newton MD 03/26/22 13:39 PMFSH Past Medical History Medical History Diabetes High cholesterol HTN (hypertension) Hyperlipidemia associated with type 2 diabetes mellitus Kidney disease PAD (peripheral artery disease) Type 2 diabetes mellitus Family History Family History Other No family history of coronary artery disease Surgical History Surgical History H/O shoulder surgery History of amputation of right forefoot Hx of amputation Status post transmetatarsal amputation of left foot Social History Social History Household Members: None Housing: Apartment Do you presently have visiting nurse or other home services: Yes Alcohol intake: never Patient Tobacco Use Status: Former Tobacco user Quit Date: >20yr ago Tobacco use type: Cigarette Substance Use Type: Crack/Cocaine Are you DNR?: No Advance Directives: Yes Advance Directives on File: Yes Advance Directives Date on File: 02/02/22 Nutrition Risks: No Nutritional Risk service: No Current occupational status: retired Meds Allergies Allergy/AdvReac Type Severity Reaction Status Date / Time No Known Allergies Allergy Verified 03/26/22 12:57 [No Known Allergies*] Home Medications Medication Instructions Recorded Confirmed Last Taken Type atorvastatin 80 mg tablet 80 mg PO DAILY 04/27/21 03/08/22 02/01/22 History fluticasone propionate 50 2 spray intranasal QAM PRN Nasal 04/27/21 03/08/22 02/01/22 History mcg/actuation nasal Congestion spray,suspension glipizide 10 mg tablet 20 mg PO BID 04/27/21 03/08/22 02/01/22 History metformin 1,000 mg tablet 1,000 mg PO BID 04/27/21 03/08/22 02/01/22 History metoprolol succinate 100 mg 100 mg PO DAILY 04/27/21 03/08/22 02/01/22 History tablet,extended release 24 hr sertraline 50 mg tablet 50 mg PO DAILY 04/27/21 03/08/22 02/01/22 History sitagliptin phosphate 100 mg 100 mg PO DAILY 04/27/21 03/08/22 02/01/22 History tablet (Januvia) povidone-iodine 10 % topical See Rx Instructions .Route .COMPLEX 12/28/21 03/08/22 02/01/22 History solution insulin degludec 100 unit/mL (3 25 unit subcut QPM 01/03/22 03/08/22 02/01/22 History mL) subcutaneous pen (Tresiba FlexTouch U-100 insulin) Exam Airway Mallampati Class: II TM Dist: >3cm Neck ROM: Full Partial: Upper Loose/Missing/Broken Teeth: Yes Heart: [id number] Lungs: cta b/l Assessment and Plan Final Anesthetic Review ASA Class: IV Final Preanesthetic Review: No Changes in Pt Med Stat, Meds/Allgs Chart Reviewed, Consent Obtained/Reviewed and Anes Risks/Benef Reviewed Patient Risk: High Procedure Risk: Intermediate Assessment/Block/Sedation in SS: Assess/Block/Sedation-SS Anesthetic Plan Anesthetic Plan: GA and Agree w/ Assess. and Plan Disposition: Standard PACU
[2022-03-26] VITALS (20 sets, daily range): BP systolic 141–183; BP diastolic 63–81; PULSE 98–112; RESP 10–188; TEMP 36.1–37.4; O2SAT 93–99; BMI 25.8
[2022-03-26 11:08] LABS: COVID-19 Test Negative (Negative); IDNOW Serial# 16C4AD1C
--- NOTE | 2022-03-26 11:19 | PC.NURSE ---
Dr. Newton updated that patient has 10/[address] pain to surgical leg. Dr. Topete signed surgical consent at this time. Waiting on urine tox screen prior to medicating.
[2022-03-26 11:27] LABS: Glucose, Whole Blood 141 mg/dL (60-115)
[2022-03-26 11:31] LABS: Amphetamine Screen Urine Not Detected (Not Detect); Barbiturates, Urine Not Detected (Not Detect); Benzodiazepines Screen Urine Not Detected (Not Detect); Cannabinoid Screen Urine Not Detected (Not Detect); Cocaine Screen Urine POSITIVE (Not Detect); Fentanyl, urine Not Detected (Not Detect); Opiate Screen Urine Not Detected (Not Detect); Phencyclidine Screen Urine Not Detected (Not Detect)
[2022-03-26] MEDS: Lactated Ringers 1,000 ML 100 ML IVCONT (11:43)
[2022-03-26 12:03] LABS: Hemoglobin 8.1 g/dl (14.0-18.0); Mean Corpuscular HGB Conc 32.4 g/dl (31.0-36.0); Mean Corpuscular Hemoglobin 28.6 pg (27.0-33.0); Mean Corpuscular Volume 88.3 fL (80.0-98.0); Mean Platelet Volume 9.2 fL (9.4-12.4); Platelet Count 550 X10*3/uL (160-400); Red Blood Count 2.83 X10*6/uL (4.60-5.80); Red Cell Distribution Width 13.7 % (11.0-16.0); White Blood Count 13.7 X10*3/uL (4.8-10.8)
[2022-03-26 12:05] LABS: Prothrombin Time 11.7 SEC (10.0-13.1)
[2022-03-26 12:08] LABS: Partial Thromboplastin Time 28.8 SEC (26.0-36.4)
[2022-03-26 12:15] LABS: Anion Gap 15 (12-20); Blood Urea Nitrogen 47 mg/dL (9-16); Carbon Dioxide 21 mmol/L (22-29); Chloride 106 mmol/L (96-108); Estimated Glomerular Filt Rate 45; Glucose Random 140 mg/dL (60-115); Sodium 137 mmol/L (135-145)
[2022-03-26] MEDS: HYDROmorphone HCl 0.5 MG/0.5 ML SYRINGE IVPUSH ×3 (12:40→16:30)
--- NOTE | 2022-03-26 12:49 | PC.NURSE ---
Dr. Newton and Dr. Whittington aware of toxicology screen results. Decision was made to proceed. IV placed. Dr. Newton ordered for 0.5mg dilaudid IV for c/o 10/10 pain and patient moaning. Will re-assess.
--- NOTE | 2022-03-26 13:14 | PC.NURSE ---
Patient reports pain relief from medication given. Now states 07/18. VS being monitored and wnl.
--- NOTE | 2022-03-26 13:17 | PC.NURSE ---
Dr. Newton aware that patient notes some pain relief now stating 5/10 pain to surgical leg.
--- NOTE | 2022-03-26 13:26 | MHC.SHP ---
Pre-Procedural Eval Section A Date of Service: 03/26/22 The patient is an INPATIENT: No Changes since office visit: Yes Patient answered all questions The History & Physical has been completed within 30 days and I have reviewed it.: Yes Section B Chief Complaint: Non-pressure chronic ulcer,peripheral vascular dis Allergies: Allergies Allergy/AdvReac Type Severity Reaction Status Date / Time No Known Allergies Allergy Verified 03/26/22 12:57 [No Known Allergies*] Plan I have reviewed the history and physical and performed a pertinent physical examination on my patient. No changes have occurred unless specified. Time Spent With Patient Time: Total time managing care of this patient today ____ minutes.
--- NOTE | 2022-03-26 15:04 | P.OP_ITS ---
Operative Note Operative Note Date of Service: 03/26/22 Narrative: Operative note by [facility] Preoperative diagnosis:1. Nonhealing left leg ulcer 2. Diabetes Postoperative diagnosis: Same Procedure:1. Left leg below-knee amputation 2. Myodesis Surgeon:Lyle Topete M.D. Front Office Representative: Shahnaz Anesthesia: General Specimens: 1 Drains: None Estimated blood loss: 100 mL Indications: Very pleasant 67-year-old diabetic gentleman who had a prior transmetatarsal amputation. It had been nonhealing and a significant source of pain. He now presents for below-knee amputation. The patient has signed the informed consent after reviewing risks, complications, benefits, and alternatives previously discussed with the patient. The patient was given the opportunity to ask any additional questions or voice any concerns. All questions were answered to the patient's satisfaction. Procedure in detail: Patient was brought to the operating room prior to which a time-out was called for patient identification site verification left leg was prepped and draped in standard surgical fashion approximately 10 cm below the tibial tuberosity a curvilinear incision was made and just below the gastroc a posterior flap was then created. Once through the skin all the way around we used electrocautery to get through the muscle beds. We were easily able to identify the anterior tibial and posterior tibial arteries which were ligated with 3-0 silk ties. Once this was done we then at cauterized the posterior flap. We got through the fascial plane between the tibia and the fibula. We used a Sue clamp to cross this area and then bring a lap pad through this area . Once this was accomplished we made a reversed hockey stick cut across the tibia using a power saw. In a similar fashion we went 2-3 inches above that cut and transected the fibula. We then used electrocautery to bring up the muscle bed and removed they specimen in its entirety. Once this was done we irrigated the tissue bed. We then used drill bit to get through the medial and lateral aspects of the tibia. Using a 2-0 silk we buttressed the muscle and perform myodesis. Once this was all done we brought the anterior and posterior fascial layers together using 2-0 Polysorb in multiple interrupted areas. Once this was all done we used 3-0 Polysorb in a superficial layer finally 2 0 nylon in a mattress fashion to bring together skin. Skin clips were used as well. Once this was all done sterile dressing was applied. At the end of the case sponge instrument counts were correct. Patient tolerated the procedure well. Returned to recovery with stable vitals. This note is constructed using voice recognition software. While every effort has been made to ensure accuracy, supply manager errors may have been included. Thank you for allowing me to participate in the care of your patient. Yours sincerely, Lyle Topete MD, FACS, R.P.V.I.
--- NOTE | 2022-03-26 15:19 | P.CONHOSP_ITS ---
History of Present Illness Data of Consult Service Date: 03/26/22 Requesting physician: Lyle Topete Primary Care Provider: Alexa Cohn MD HPI 67 year old man with history of poorly healed left TMA recently discharged on 03/14/2022. Admitted by vascular surgery for Left BKA. surgery was unremarkable. Labs are all within acceptable limits. Vital signs stable. Patient stable in PACU drinking fluids with no nausea or vomiting pending transfer to medical floor. Review of Systems Review of Systems: Denies any recent fever chills or decrease in appetite respiratory denies any shortness of breath coverage production cardiovascular denies chest pain gastrointestinal denies any dysphagia abdominal pain nausea vomiting or diarrhea genitourinary denies any dysuria frequency or hematuria musculoskeletal denies any joint pain or swelling neuropsych denies any weakness or seizures all other systems reviewed are negative [facility] Medical History Diabetes High cholesterol HTN (hypertension) Hyperlipidemia associated with type 2 diabetes mellitus Kidney disease PAD (peripheral artery disease) Type 2 diabetes mellitus Family History Other No family history of coronary artery disease Surgical History H/O shoulder surgery History of amputation of right forefoot Hx of amputation Status post transmetatarsal amputation of left foot Social History Household Members: None Housing: Apartment Do you presently have visiting nurse or other home services: Yes Alcohol intake: never Patient Tobacco Use Status: Former Tobacco user Quit Date: >20yr ago Tobacco use type: Cigarette Use of substances other than those prescribed or required for medical reasons: No Substance Use Type: Crack/Cocaine Currently Displaying Signs/Symptoms of Drug Intoxication Withdrawal: No Have you been hit, kicked, punched, or otherwise hurt by someone within the past year? If so, by whom?: No Do you feel safe in your current relationship?: No Current Relationship Is there a partner from a previous relationship who is making you feel unsafe now?: No Are you made to feel afraid or neglected: No Are you DNR?: No Advance Directives: Yes Advance Directives on File: Yes Advance Directives Date on File: 02/02/22 Do you have thoughts of harming others: None Do you have a plan to hurt others: No Plan Recently lost weight without trying: No Eating poorly because of decreased appetite: No Nutrition Risks: No Nutritional Risk service: No Current occupational status: retired Meds Allergies Allergy/AdvReac Type Severity Reaction Status Date / Time No Known Allergies Allergy Verified 03/26/22 17:02 [No Known Allergies*] Active Medications: Current Medications Acetaminophen (Acetaminophen 325 Mg Tablet) 650 mg PO Q6H PRN PRN Reason: Pain, Mild (Pain Scale 1-3) Fentanyl (Fentanyl Citrate/Pf 100 Mcg/2 Ml Vial) 50 mcg IVPUSH Q5M PRN; Protocol PRN Reason: Pain, Moderate (Pain Scale 4-6 Hydromorphone HCl (Hydromorphone Hcl 0.5 Mg/0.5 Ml Syringe) 0.5 mg IVPUSH Q5M PRN; Protocol PRN Reason: Pain, Severe (Pain Scale 7-10) Lactated Ringer's (Lr) 1,000 mls @ 100 mls/hr IVCONT .Q10H [facility] Last Admin: 03/26/22 11:43 Dose: 100 mls/hr Sodium Chloride (Ns) 1,000 mls @ 80 mls/hr IVCONT .[id number] [facility] Cefazolin Sodium/Dextrose (Ancef) 2 gm in 50 mls @ 100 mls/hr IV POSTOP ONE Stop: 03/26/22 20:09 Morphine Sulfate (Morphine Sulfate 2 Mg/Ml Cartridge) 2 mg IVPUSH Q4H PRN; Protocol PRN Reason: Pain, Severe (Pain Scale 7-10) Ondansetron HCl (Ondansetron Hcl 4 Mg/2 Ml Vial) 4 mg IVPUSH ONCE PRN PRN Reason: Nausea and Vomiting Oxycodone HCl (Oxycodone Hcl Immed Release 5 Mg Tablet) 10 mg PO ONCE PRN PRN Reason: Pain, Mild (Pain Scale 1-3) Oxycodone HCl (Oxycodone Hcl Immed Release 5 Mg Tablet) 5 mg PO Q4H PRN PRN Reason: Pain, Moderate (Pain Scale 4-6 Sodium Chloride (0.9 % Sodium Chloride Flush 3 Ml Syringe) 3 ml IVFLUSH QSHI Home Medications Medication Instructions Recorded Confirmed Last Taken Type atorvastatin 80 mg tablet 80 mg PO DAILY 04/27/21 03/26/22 02/01/22 History fluticasone propionate 50 2 spray intranasal QAM PRN Nasal 04/27/21 03/26/22 02/01/22 History mcg/actuation nasal Congestion spray,suspension glipizide 10 mg tablet 20 mg PO BID 04/27/21 03/26/22 02/01/22 History metformin 1,000 mg tablet 1,000 mg PO BID 04/27/21 03/26/22 02/01/22 History metoprolol succinate 100 mg 100 mg PO DAILY 04/27/21 03/26/22 02/01/22 History tablet,extended release 24 hr sertraline 50 mg tablet 50 mg PO DAILY 04/27/21 03/26/22 02/01/22 History sitagliptin phosphate 100 mg 100 mg PO DAILY 04/27/21 03/26/22 02/01/22 History tablet (Januvia) insulin degludec 100 unit/mL (3 25 unit subcut QPM 01/03/22 03/26/22 02/01/22 History mL) subcutaneous pen (Tresiba FlexTouch U-100 insulin) Physical Exam Vital Signs and Narrative: Vital Signs: Last Vital Signs Temp 99.3 F 03/26/22 15:08 Pulse 108 H 03/26/22 15:13 Resp 10 L 03/26/22 15:13 BP 155/64 H 03/26/22 15:13 Pulse Ox 95 03/26/22 15:13 O2 Del Method 03/26/22 15:13 O2 Flow Rate 2 03/26/22 15:13 BMI result Body Mass Index 25.8 Appearing in no acute distress head is normocephalic atraumatic eyes pupils are PERRLA sclera is anicteric mouth throat mucous membranes are intact and moist neck is supple no lymphadenopathy, no JVD noted lung sounds are clear to auscultation heart regular rate rhythm, clear S1, S2 positive bowel sounds, abdomen is soft, nontender neuro patient is alert x3, no focal deficits Left BKA dressing intact , surgical incision not visualized Results Labs 03/26/22 11:25 03/26/22 11:25 Labs: Laboratory Results - last 24 hr 03/26/22 03/26/22 03/26/22 10:30 10:30 11:24 MCV MCH MCHC RDW Plt Count MPV Absolute Nucleated RBC Nucleated RBC % (auto) PT INR APTT Anion Gap Estim Creat Clear Calc Estimated GFR POC Glucose 141 H Random Glucose Calcium Urine Opiates Screen Not Detected Urine Fentanyl Screen Not Detected Ur Barbiturates Screen Not Detected Ur Phencyclidine Scrn Not Detected Ur Amphetamines Screen Not Detected U Benzodiazepines Scrn Not Detected Urine Cocaine Screen POSITIVE H U Marijuana (THC) Screen Not Detected COVID-19 (YANELIS) Negative COVID-19 Clin Com See Note Blood Type Antibody Screen 03/26/22 03/26/22 03/26/22 11:25 11:25 11:25 MCV 88.3 MCH 28.6 MCHC 32.4 RDW 13.7 Plt Count 550 H D MPV 9.2 L Absolute Nucleated RBC 0.000 Nucleated RBC % (auto) 0.0 PT 11.7 INR 1.0 APTT 28.8 Anion Gap 15 Estim Creat Clear Calc 45.0 Estimated GFR 45 POC Glucose Random Glucose 140 H Calcium 9.0 Urine Opiates Screen Urine Fentanyl Screen Ur Barbiturates Screen Ur Phencyclidine Scrn Ur Amphetamines Screen U Benzodiazepines Scrn Urine Cocaine Screen U Marijuana (THC) Screen COVID-19 (YANELIS) COVID-19 Clin Com Blood Type Antibody Screen 03/26/22 11:55 MCV MCH MCHC RDW Plt Count MPV Absolute Nucleated RBC Nucleated RBC % (auto) PT INR APTT Anion Gap Estim Creat Clear Calc Estimated GFR POC Glucose Random Glucose Calcium Urine Opiates Screen Urine Fentanyl Screen Ur Barbiturates Screen Ur Phencyclidine Scrn Ur Amphetamines Screen U Benzodiazepines Scrn Urine Cocaine Screen U Marijuana (THC) Screen COVID-19 (YANELIS) COVID-19 Clin Com Blood Type O Positive Antibody Screen NEGATIVE Assessment and Plan (1) Status post below-knee amputation of left lower extremity: Status: Acute Plan 67 year old man admitted by vascular surgery and is s/p Left BKA Left BKA secondary to non healing TMA wound care as per vascular surgery IV fluids pain management Diabetes 2 ss, ada diet CKD3 baseline HFpEF not in exacerbation HTN Continue home medications acute on normocytic chronic anemia Seems at baseline Follow H&H postoperatively DVT prophylaxis as per surgical team Attending Dr. Flores Full code Time Spent With Patient Time: Total time managing care of this patient today ____ minutes.
--- OUTSIDE RECORDS SUMMARY | 2022-03-26 15:21 | XMS_ITS | Continuity of Care Document ---
:1955 Author Organization [facility] Address [address] [place] [address]- Care Team Providers Name Role Phone Marline Richard MD Primary Care Physician Encounter [facility] Date(s): 02/20/22 - 03/22/22 [facility] [address] [place] [id number] Allergies, Adverse Reactions, Alerts Substance Reaction Severity Status Remeron Active Medications amLODIPine 5 mg oral tablet 5 mg, 1, tablet, By Mouth, Daily, # 30 tablet, Refills 0, Maintenance, 01/17/21 15:40:00 EST, Partial fill upon patient request if the prescription is for a schedule II opioid drug. Start Date: 01/17/21 Status: Orderedaspirin 81 mg oral tablet 1 tablet = 81 mg, By Mouth, Daily, 0 Refills, Maintenance, 06/01/14 15:32:38 Start Date: 06/01/14 Status: Orderedatorvastatin 80 mg oral tablet 1 tablet = 80 mg, By Mouth, Daily, # 30 tablet, 5 Refills, Maintenance, 01/17/21 15:40:00 EST, Tablet, Partial fill upon patient request if the prescription is for a schedule II opioid drug. Start Date: 01/17/21 Status: Orderedbaclofen 10 mg oral tablet 10 mg, 1, tablet, By Mouth, 3 times a day, # 90 tablet, Refills 5, Maintenance, 01/17/21 15:40:00 EST, Partial fill upon patient request if the prescription is for a schedule II opioid drug. Start Date: 01/17/21 Status: OrderedCialis By Mouth, Daily, 0 Refills, Maintenance, 06/01/14 15:33:01 Start Date: 06/01/14 Status: Orderedfluticasone 50 mcg/inh nasal spray 1 sprays, Nares, Both, 2 times a day, # 16 Gm, 0 Refills, Maintenance, 01/17/21 15:41:00 EST, [place],Partial fill upon patient request if the prescription is for a schedule II opioid drug. Start Date: 01/17/21 Status: OrderedFreestyle Lite Lancets See Instructions, # 100 each, Refills 11, Tot. Refills 11, Maintenance, Use to check blood sugar 3 times daily. E11.65., 06/24/21 10:22:00 EDT, Supply, 169.5, cm, 06/22/21 13:14:00 EDT, Height Start Date: 06/24/21 Stop Date: 06/19/22 Status: OrderedFreestyle Lite Monitor See Instructions, # 1 each, Refills 1, Tot. Refills 1, Maintenance, Use to check blood sugar 3 timesdaily. E11.65., 06/24/21 10:22:00 EDT, Supply, 169.5, cm, 06/22/21 13:14:00 EDT, Height Start Date: 06/24/21 Stop Date: 08/23/21 Status: OrderedFreestyle Lite Test Strips See Instructions, # 100 each, Refills 11, Tot. Refills 11, Maintenance, Use to check blood sugar 3 times daily. E11.65., 06/24/21 10:22:00 EDT, Supply, 169.5, cm, 06/22/21 13:14:00 EDT, Height Start Date: 06/24/21 Stop Date: 06/19/22 Status: Orderedfurosemide 40 mg oral tablet 40 mg, 1, tablet, By Mouth, Daily, # 30 tablet, Refills 0, Maintenance, 01/17/21 15:41:00 EST, Partial fill upon patient request if the prescription is for a schedule II opioid drug. Start Date: 01/17/21 Status: Orderedgabapentin 100 mg oral capsule 100 mg, 1, capsule, By Mouth, 3 times a day, # 90 capsule, Refills 5, Maintenance, 01/17/21 15:42:00EST, Partial fill upon patient request if the prescription is for a schedule II opioid drug. Start Date: 01/17/21 Status: OrderedglipiZIDE 10 mg oral tablet 1 tablet = 10 mg, By Mouth, Daily, # 30 tablet, 0 Refills, Maintenance, 01/17/21 15:42:00 EST, Tablet, Partial fill upon patient request if the prescription is for a schedule II opioid drug. Start Date: 01/17/21 Status: OrderedhydrALAZINE 25 mg oral tablet 25 mg, 1, tablet, By Mouth, 2 times a day, # 60 tablet, Refills 0, Maintenance, 01/17/21 15:42:00 EST, Partial fill upon patient request if the prescription is for a schedule II opioid drug. Start Date: 01/17/21 Status: OrderedJanuvia 100 mg oral tablet = 100 mg, By Mouth, Daily, # 30 tablet, 0 Refills, Maintenance, 01/17/21 15:43:00 EST, Tablet, Partial fill upon patient request if the prescription is for a schedule II opioid drug. Start Date: 01/17/21 Status: Orderedlisinopril 5 mg oral tablet 1 tablet = 5 mg, By Mouth, Daily, 0 Refills, Maintenance, 06/01/14 15:33:09 Start Date: 06/01/14 Status: Orderedlosartan 50 mg oral tablet 50 mg, 1, tablet, By Mouth, Daily, # 30 tablet, Refills 0, Maintenance, 01/17/21 15:43:00 EST, Partial fill upon patient request if the prescription is for a schedule II opioid drug. Start Date: 01/17/21 Status: OrderedMetformin By Mouth, 0 Refills, Maintenance, 06/01/14 15:31:29 Start Date: 06/01/14 Status: OrderedmetFORMIN 1000 mg oral tablet 1 tablet = 1,000 mg, By Mouth, 2 times a day, # 180 tablet, 0 Refills, Maintenance, 01/17/21 15:44:00 EST, Tablet, Partial fill upon patient request if the prescription is for a schedule II opioid drug. Start Date: 01/17/21 Status: Orderedmetoprolol 100 mg oral tablet, extended release 100 mg, 1, tablet, By Mouth, Daily, # 30 tablet, Refills 0, Maintenance, 01/17/21 15:44:00 EST, Partial fill upon patient request if the prescription is for a schedule II opioid drug. Start Date: 01/17/21 Status: OrderedSimvastatin By Mouth, Daily at bedtime, 0 Refills, Maintenance, 06/01/14 15:31:36 Start Date: 06/01/14 Status: Orderedtamsulosin 0.4 mg oral capsule 0.4 mg, 1, capsule, By Mouth, Daily, # 90 capsule, Refills 0, Maintenance, 01/17/21 15:44:00 EST, Partial fill upon patient request if the prescription is for a schedule II opioid drug. Start Date: 01/17/21 Status: OrderedtraMADol 50 mg oral tablet 1 tablet = 50 mg, By Mouth, Every 4 hours, PRN for pain, # 60 tablet, 0 Refills, Maintenance, 01/17/21 15:45:00 EST, Tablet, Partial fill upon patient request if the prescription is for a schedule II opioid drug. Start Date: 01/17/21 Status: Orderedtramadol 50 mg oral tablet 1 tablet = 50 mg, By Mouth, Every 12 hours, 0 Refills, Maintenance, 06/01/14 15:30:41 Start Date: 06/01/14 Status: OrderedTresiba FlexTouch 100 units/mL subcutaneous solution = 25 units, Subcutaneous Infusion, Daily, Take 25 units once daily. E11.65., # 15 mL, 5 Refills, Maintenance, 02/20/22 9:38:00 EST, [facility], Partial fill upon patient request if the prescription is for a schedule II opioid drug.... Start Date: 02/20/22 Status: OrderedVentolin 90 mcg Inhaler Inhalation, Every 6 hours, Refills 0, Maintenance, 01/17/21 15:45:00 EST Start Date: 01/17/21 Status: OrderedViagra 100 mg oral tablet 1 tablet = 100 mg, By Mouth, Daily, 1 hour before sexual activity, # 5 tablet, 0 Refills, Maintenance, 01/17/21 15:45:00 EST, Tablet, Partial fill upon patient request if the prescription is for a schedule II opioid drug. Start Date: 01/17/21 Status: OrderedWellbutrin By Mouth, 0 Refills, Maintenance, 06/01/14 15:32:45 Start Date: 06/01/14 Status: OrderedZoloft 50 mg oral tablet 1 tablet = 50 mg, By Mouth, Daily, # 30 tablet, 0 Refills, Maintenance, 01/17/21 15:46:00 EST, Tablet, Partial fill upon patient request if the prescription is for a schedule II opioid drug. Start Date: 01/17/21 Status: Ordered Problem List Condition Confirmation Course Effective Dates Status Health Stat us Informant Obese class I Confirmed Active Social History Social History Type Response Smoking Status Former smoker entered on: 06/01/14 Sex Patient Care team information Care Team PersonnelName: Marline Richard MD Position: [facility] Physician (General Medicine) Member Role: PCP Address: Address: [address] [place] [address]- [place] Care Team Related PersonsName: LATOSHA ROBERTS Name: NATASHA HARTMANN Address: home [address] [place] [id number] Name: DAXA HARTMANN
[2022-03-26] MEDS: Acetaminophen 325 MG TABLET 650 MG PO (15:30)
[2022-03-26] MEDS: oxyCODONE HCl Immed Release 5 MG TABLET PO ×2 (15:31→21:50)
[2022-03-26] MEDS: 0.9 % Sodium Chloride 1,000 ML 80 ML IVCONT (16:42)
--- NOTE | 2022-03-26 17:24 | PHA.MEDREC ---
Pharmacy Consult ? Medication Reconciliation Pharmacy has completed the medication reconciliation Double checked med rec done by nursing.
[2022-03-26 17:25] LABS: Glucose, Whole Blood 123 mg/dL (60-115)
[2022-03-26] MEDS: Losartan Potassium 50 MG TABLET 100 MG PO (17:45)
[2022-03-26] MEDS: amLODIPine Besylate 10 MG TABLET PO (17:45)
[2022-03-26 19:49] LABS: Glucose, Whole Blood 126 mg/dL (60-115)
[2022-03-26] MEDS: Morphine Sulfate 2 MG/ML CARTRIDGE IVPUSH ×2 (19:50→23:33)
[2022-03-26] MEDS: hydrALAZINE HCl 50 MG TABLET 100 MG PO (19:51)
[2022-03-26] MEDS: Docusate Sodium 100 MG CAPSULE PO (19:51)
[2022-03-26] MEDS: Furosemide 40 MG TABLET PO (19:51)
[2022-03-26] MEDS: glipiZIDE 10 MG TABLET 20 MG PO (19:52)
[2022-03-26] MEDS: Tamsulosin HCL 0.4 MG CAPSULE PO (19:52)
[2022-03-26] MEDS: metFORMIN HCl 1,000 MG TABLET 1000 MG PO (19:58)
[2022-03-26] MEDS: ceFAZolin Sodium/Dextrose,Iso 2 GM/50 ML PIGGYBACK IV (20:01)
[2022-03-27] MEDS: Morphine Sulfate 2 MG/ML CARTRIDGE IVPUSH ×2 (00:31→04:47)
[2022-03-27] MEDS: oxyCODONE HCl Immed Release 5 MG TABLET PO ×4 (01:30→22:42)
[2022-03-27 03:09] VITALS: BP 174/77; PULSE 107; RESP 18; TEMP 36.9; O2SAT 97
[2022-03-27] MEDS: 0.9 % Sodium Chloride 1,000 ML 80 ML IVCONT (04:42)
[2022-03-27 06:23] LABS: MANUAL DIFF FLAG NO
[2022-03-27 06:31] LABS: Basophils Percent Auto 0.3 % (0-2); Eosinophils Percent Auto 0.1 % (0-4); Hematocrit 22.8 % (42.0-52.0); Hemoglobin 7.3 g/dl (14.0-18.0); Imm Gran Abs Auto 0.07 X10*3/uL (0.00-0.03); Imm Gran Pct Auto 0.5 % (0.0-0.4); Lymphocytes Absolute Auto 0.8 X10*3/uL (1.2-4.9); Lymphocytes Percent Auto 5.7 % (20-40); Mean Corpuscular Volume 90.5 fL (80.0-98.0); Mean Platelet Volume 9.5 fL (9.4-12.4); Monocytes Absolute Auto 1.4 X10*3/uL (0.1-1.2); Monocytes Percent Auto 10.6 % (2-11); Neutrophils Absolute Auto 11.3 x10*3/uL (2.0-8.3); Neutrophils Percent Auto 82.8 % (45-73); Platelet Count 476 X10*3/uL (160-400); Red Blood Count 2.52 X10*6/uL (4.60-5.80); White Blood Count 13.6 X10*3/uL (4.8-10.8)
[2022-03-27 06:44] LABS: Anion Gap 16 (12-20); Blood Urea Nitrogen 36 mg/dL (9-16); Calcium 8.6 mg/dL (8.4-10.2); Carbon Dioxide 22 mmol/L (22-29); Chloride 104 mmol/L (96-108); Creatinine Clr Calc Pharmacy 49.5; Estimated Glomerular Filt Rate 51; Glucose Random 95 mg/dL (60-115); Potassium 4.8 mmol/L (3.3-5.1); Sodium 137 mmol/L (135-145)
[2022-03-27 07:07] VITALS: BP 184/83; PULSE 108; RESP 9; TEMP 38.8; O2SAT 96
[2022-03-27] MEDS: metFORMIN HCl 1,000 MG TABLET 1000 MG PO ×2 (07:15→20:34)
[2022-03-27] MEDS: glipiZIDE 10 MG TABLET 20 MG PO ×2 (07:15→20:34)
[2022-03-27] MEDS: Metoprolol Succinate ER 100 MG TAB.ER.24H PO (07:15)
[2022-03-27] MEDS: Spironolactone 25 MG TABLET PO (07:16)
[2022-03-27] MEDS: Acetaminophen 325 MG TABLET 650 MG PO ×3 (07:16→22:42)
[2022-03-27] MEDS: hydrALAZINE HCl 50 MG TABLET 100 MG PO ×3 (07:16→20:34)
[2022-03-27] MEDS: Isosorbide Mononitrate 60 MG TAB.ER.24H PO (07:16)
[2022-03-27] MEDS: Furosemide 40 MG TABLET PO ×2 (07:16→20:34)
[2022-03-27] MEDS: Sertraline HCL 50 MG TABLET PO (07:17)
[2022-03-27] MEDS: Atorvastatin Calcium 80 MG TABLET PO (07:17)
[2022-03-27] MEDS: SITagliptin Phosphate 100 MG TABLET PO (07:17)
[2022-03-27] MEDS: Losartan Potassium 50 MG TABLET 100 MG PO (07:17)
[2022-03-27 07:26] LABS: Glucose, Whole Blood 101 mg/dL (60-115)
[2022-03-27] MEDS: HYDROmorphone HCl 1 MG/ML SYRINGE IVPUSH ×4 (07:57→20:33)
[2022-03-27 09:00] VITALS: BP 160/71; PULSE 88; RESP 17; TEMP 38; O2SAT 96
--- NOTE | 2022-03-27 09:18 | P.PNVS_ITS ---
Subjective Subjective Date of Service: 03/27/22 Patient reports: no new complaints and feels better Interval history: Patient is postop day 1 status post left BKA. Reports he is doing fairly well. No interval issues. Continues to have pain somewhat better than yesterday but still pain out of proportion to what you would expect. Tolerating a diet in general good spirits Physical Exam Vital Signs: Vital Signs: Last Vital Signs Temp 100.4 F 03/27/22 09:00 Pulse 88 03/27/22 09:00 Resp 17 03/27/22 09:00 BP 160/71 H 03/27/22 09:00 Pulse Ox 96 03/27/22 09:00 O2 Del Method 03/27/22 09:00 O2 Flow Rate 2 03/26/22 17:20 BMI result Body Mass Index 25.8 Const: General: cooperative, healthy appearing and comfortable Orientation/consciousness: oriented to person, oriented to place and oriented to time HEENT: Head: Yes normal to inspection Neck: Neck: Yes normal visual inspection Carotids: no bruits Chest: Chest palpation & inspection: normal inspection of the chest Resp: Effort & Inspection: normal respiratory effort and able to speak in complete sentences Auscultation: clear to auscultation bilaterally, no crackles, no rales, no rhonchi and no wheezes Cardio: Rate: regular rate Rhythm: regular rhythm Heart sounds: S1 normal heart sound present and S2 normal heart sound present Bruits: no carotid bruits Peripheral pulses: Peripheral pulses 2+ throughout GI: Inspection: Yes normal to inspection Skin: Wounds: amputation site (Dressing clean dry intact) Hair: normal Neuro: General: oriented to person, oriented to place and oriented to time Cranial nerves: Yes CN's II-XII intact bilaterally and Yes Normal hearing present Cognition (Neuro): normal cognition Motor exam (neuro): 5/5 motor strength present throughout Extrem: Other: venous exam: No significant superficial varicosities or spider telangiectasias, minimal edema General: No clubbing, No cyanosis and No edema Psych: Appearance: grossly normal Mental Status: mental status grossly normal Speech and movement: Normal speech and movement present Progress Note: A&P Assessment and plan (1) Status post below-knee amputation of left lower extremity: Status: Acute Assessment and Plan: In short patient is status post left BKA. Reports doing fairly well. Will try to get better pain control an add gabapentin. In addition will plan for dressing change tomorrow. [place] candidate for rehab but unfortunately does not have benefits. May require home care. Will discuss with social work. Time Spent With Patient Time: Total time managing care of this patient today ____ minutes. Procedures Date of Service Date of Service: 03/27/22 Quality Stroke Does the patient have a stroke diagnosis?: No VTE Prior VTE?: No VTE Risk Level:: Surgical - moderate VTE Device Contraindication: Procedure Contraindicated VTE Drug Contraindication: N/A - Med Ordered
[2022-03-27] MEDS: Gabapentin 100 MG CAPSULE PO (09:43)
[2022-03-27] MEDS: Heparin Sodium,Porcine 5,000 UNIT/ML VIAL 5000 UNIT SUBCUT ×2 (09:43→17:16)
--- NOTE | 2022-03-27 09:46 | P.PNIM_ITS ---
Subjective Subjective Date of Service: 03/27/22 Review of Systems Follow up consult for LBKA still with significant pain denies chest pain, nausea or vomiting Physical Exam Vital Signs: Vital Signs: Last Vital Signs Temp 100.4 F 03/27/22 09:00 Pulse 88 03/27/22 09:00 Resp 17 03/27/22 09:00 BP 160/71 H 03/27/22 09:00 Pulse Ox 96 03/27/22 09:00 O2 Del Method 03/27/22 09:00 O2 Flow Rate 2 03/26/22 17:20 BMI result Body Mass Index 25.8 Appearing in no acute distress lung sounds are clear to auscultation heart regular rate rhythm, clear S1, S2 positive bowel sounds, abdomen is soft, nontender neuro patient is alert x3, no focal deficits LBKA dressing intact Objective Data Active Medications Acetaminophen (Acetaminophen 325 Mg Tablet) 650 mg PO Q6H PRN PRN Reason: Pain, Mild (Pain Scale 1-3) Last Admin: 03/27/22 07:16 Dose: 650 mg Documented By: MITCH Amlodipine Besylate (Amlodipine Besylate 10 Mg Tablet) 10 mg PO DAILY@1700 [facility]; Protocol Last Admin: 03/26/22 17:45 Dose: 10 mg Documented By: MITCH Atorvastatin Calcium (Atorvastatin Calcium 80 Mg Tablet) 80 mg PO DAILY [facility] Last Admin: 03/27/22 07:17 Dose: 80 mg Documented By: MITCH Dextrose (Dextrose 50 % 25 Gm/50 Ml Syringe) 25 gm IVPUSH Q15M PRN; Protocol PRN Reason: per Hypoglycemia Standing Ord. Docusate Sodium (Docusate Sodium 100 Mg Capsule) 100 mg PO BEDTIME [facility] Last Admin: 03/26/22 19:51 Dose: 100 mg Documented By: MARCELLUS Fluticasone Propionate (Fluticasone Propionate Nasal 16 [employer]) 2 spray NOSTRIL-B DAILY PRN PRN Reason: Nasal Congestion Furosemide (Furosemide 40 Mg Tablet) 40 mg PO BID [facility]; Protocol Last Admin: 03/27/22 07:16 Dose: 40 mg Documented By: MITCH Gabapentin (Gabapentin 100 Mg Capsule) 100 mg PO DAILY [facility] Last Admin: 03/27/22 09:43 Dose: 100 mg Documented By: MITCH Glipizide (Glipizide 10 Mg Tablet) 20 mg PO BID [facility] Last Admin: 03/27/22 07:15 Dose: 20 mg Documented By: MITCH Glucose (Glucose Gel 15 Gm Gel..Gram.) 15 gm PO Q15M PRN; Protocol PRN Reason: per Hypoglycemia Standing Ord. Heparin Sodium (Porcine) (Heparin Sodium,Porcine 5,000 Unit/Ml Vial) 5,000 unit SUBCUT Q8H [facility] Last Admin: 03/27/22 09:43 Dose: 5,000 unit Documented By: MITCH Hydralazine HCl (Hydralazine Hcl 50 Mg Tablet) 100 mg PO TID [facility]; Protocol Last Admin: 03/27/22 07:16 Dose: 100 mg Documented By: MITCH Hydromorphone HCl (Hydromorphone Hcl 1 Mg/Ml Syringe) 1 mg IVPUSH Q4H PRN; Protocol PRN Reason: Pain, Severe (Pain Scale 7-10) Last Admin: 03/27/22 07:57 Dose: 1 mg Documented By: MITCH Insulin Human Lispro (Insulin Lispro 100 Unit/Ml 3 Ml Vial) 0 unit SUBCUT QIDACHS [facility]; Protocol Last Admin: 03/27/22 07:33 Dose: Not Given Documented By: MITCH Non-Admin Reason: No Insulin Coverage Isosorbide Mononitrate (Isosorbide Mononitrate 60 Mg Tab.Er.24h) 60 mg PO DAILY [facility]; Protocol Last Admin: 03/27/22 07:16 Dose: 60 mg Documented By: MITCH Losartan Potassium (Losartan Potassium 50 Mg Tablet) 100 mg PO DAILY [facility]; Pr otocol Last Admin: 03/27/22 07:17 Dose: 100 mg Documented By: MITCH Metformin HCl (Metformin Hcl 1,000 Mg Tablet) 1,000 mg PO BID [facility] Last Admin: 03/27/22 07:15 Dose: 1,000 mg Documented By: MITCH Metoprolol Succinate (Metoprolol Succinate Er 100 Mg Tab.Er.24h) 100 mg PO DAILY [facility]; Protocol Last Admin: 03/27/22 07:15 Dose: 100 mg Documented By: MITCH Oxycodone HCl (Oxycodone Hcl Immed Release 5 Mg Tablet) 5 mg PO Q4H PRN PRN Reason: Pain, Moderate (Pain Scale 4-6 Last Admin: 03/27/22 07:23 Dose: 5 mg Documented By: MITCH Sertraline HCl (Sertraline Hcl 50 Mg Tablet) 50 mg PO DAILY [facility] Last Admin: 03/27/22 07:17 Dose: 50 mg Documented By: MITCH Sitagliptin Phosphate (Sitagliptin Phosphate 100 Mg Tablet) 100 mg PO DAILY [facility] Last Admin: 03/27/22 07:17 Dose: 100 mg Documented By: MITCH Sodium Chloride (0.9 % Sodium Chloride Flush 3 Ml Syringe) 3 ml IVFLUSH QSHIFT [facility] Last Admin: 03/27/22 07:14 Dose: Not Given Documented By: MITCH Non-Admin Reason: IV Running Spironolactone (Spironolactone 25 Mg Tablet) 25 mg PO DAILY [facility]; Protocol Last Admin: 03/27/22 07:16 Dose: 25 mg Documented By: MITCH Tamsulosin HCl (Tamsulosin Hcl 0.4 Mg Capsule) 0.4 mg PO BEDTIME [facility] Last Admin: 03/26/22 19:52 Dose: 0.4 mg Documented By: MARCELLUS Labs 03/27/22 05:12 03/27/22 05:12 Labs: Laboratory Results - last 24 hr 03/26/22 03/26/22 03/26/22 10:30 10:30 11:24 MCV MCH MCHC RDW Plt Count MPV Immature Gran % (Auto) Neut % (Auto) Lymph % (Auto) [place] % (Auto) Eos % (Auto) Baso % (Auto) Lymph # (Auto) [place] # (Auto) Eos # (Auto) Baso # (Auto) Abs Immat Gran (auto) Absolute Neuts (auto) Absolute Nucleated RBC Nucleated RBC % (auto) PT INR APTT Anion Gap Estim Creat Clear Calc Estimated GFR POC Glucose 141 H Random Glucose Calcium Urine Opiates Screen Not Detected Urine Fentanyl Screen Not Detected Ur Barbiturates Screen Not Detected Ur Phencyclidine Scrn Not Detected Ur Amphetamines Screen Not Detected U Benzodiazepines Scrn Not Detected Urine Cocaine Screen POSITIVE H U Marijuana (THC) Screen Not Detected COVID-19 (YANELIS) Negative COVID-19 Clin Com See Note Blood Type Antibody Screen 03/26/22 03/26/22 03/26/22 11:25 11:25 11:25 MCV 88.3 MCH 28.6 MCHC 32.4 RDW 13.7 Plt Count 550 H D MPV 9.2 L Immature Gran % (Auto) Neut % (Auto) Lymph % (Auto) [place] % (Auto) Eos % (Auto) Baso % (Auto) Lymph # (Auto) [place] # (Auto) Eos # (Auto) Baso # (Auto) Abs Immat Gran (auto) Absolute Neuts (auto) Absolute Nucleated RBC 0.000 Nucleated RBC % (auto) 0.0 PT 11.7 INR 1.0 APTT 28.8 Anion Gap 15 Estim Creat Clear Calc 45.0 Estimated GFR 45 POC Glucose Random Glucose 140 H Calcium 9.0 Urine Opiates Screen Urine Fentanyl Screen Ur Barbiturates Screen Ur Phencyclidine Scrn Ur Amphetamines Screen U Benzodiazepines Scrn Urine Cocaine Screen U Marijuana (THC) Screen COVID-19 (YANELIS) COVID-19 [place] Com Blood Type Antibody Screen 03/26/22 03/26/22 03/26/22 11:55 17:20 19:08 MCV MCH MCHC RDW Plt Count MPV Immature Gran % (Auto) Neut % (Auto) Lymph % (Auto) [place] % (Auto) Eos % (Auto) Baso % (Auto) Lymph # (Auto) [place] # (Auto) Eos # (Auto) Baso # (Auto) Abs Immat Gran (auto) Absolute Neuts (auto) Absolute Nucleated RBC Nucleated RBC % (auto) PT INR APTT Anion Gap Estim Creat Clear Calc Estimated GFR POC Glucose 123 H 126 H Random Glucose Calcium Urine Opiates Screen Urine Fentanyl Screen Ur Barbiturates Screen Ur Phencyclidine Scrn Ur Amphetamines Screen U Benzodiazepines Scrn Urine Cocaine Screen U Marijuana (THC) Screen COVID-19 (YANELIS) COVID-19 [place] Com Blood Type O Positive Antibody Screen NEGATIVE 03/27/22 03/27/22 03/27/22 05:12 05:12 07:06 MCV 90.5 MCH 29.0 MCHC 32.0 RDW 14.0 Plt Count 476 H MPV 9.5 Immature Gran % (Auto) 0.5 H Neut % (Auto) 82.8 H Lymph % (Auto) 5.7 L [place] % (Auto) 10.6 Eos % (Auto) 0.1 Baso % (Auto) 0.3 Lymph # (Auto) 0.8 L [place] # (Auto) 1.4 H Eos # (Auto) 0.0 Baso # (Auto) 0.0 Abs Immat Gran (auto) 0.07 H Absolute Neuts (auto) 11.3 H Absolute Nucleated RBC 0.000 Nucleated RBC % (auto) 0.0 PT INR APTT Anion Gap 16 Estim Creat Clear Calc 49.5 Estimated GFR 51 POC Glucose 101 Random Glucose 95 Calcium 8.6 Urine Opiates Screen Urine Fentanyl Screen Ur Barbiturates Screen Ur Phencyclidine Scrn Ur Amphetamines Screen U Benzodiazepines Scrn Urine Cocaine Screen U Marijuana (THC) Screen COVID-19 (YANELIS) COVID-19 Clin Com Blood Type Antibody Screen Assessment and Plan (1) Influenza A: Status: Resolved (2) Status post below-knee amputation of left lower extremity: Status: Acute Plan 67 year old man admitted by vascular surgery and is s/p Left BKA Fever likely secondary to surgery continue tylenol Left BKA secondary to non healing TMA wound care as per vascular surgery IV fluids pain management Possible diabetic neuropathy Still wth significant pain, likely from a component of neuropathy added Gabapentin 100mg daily Diabetes 2 ss, ada diet CKD3 baseline HFpEF not in exacerbation HTN with elevated bp readings pain contributing Continue home medications acute on normocytic chronic anemia Seems at baseline Follow H&H postoperatively DVT prophylaxis as per surgical team Attending Dr. Addison Full code Time Spent With Patient Time: Total time managing care of this patient today ____ minutes. Quality Stroke Does the patient have a stroke diagnosis?: No VTE Prior VTE?: No VTE Risk Level:: Surgical - moderate VTE Device Contraindication: Procedure Contraindicated VTE Drug Contraindication: N/A - Med Ordered
[2022-03-27 11:25] LABS: Glucose, Whole Blood 61 mg/dL (60-115)
[2022-03-27 11:39] VITALS: BP 141/63; PULSE 90; RESP 18; TEMP 37; O2SAT 97
[2022-03-27 11:55] LABS: Glucose, Whole Blood 85 mg/dL (60-115)
--- NOTE | 2022-03-27 14:04 | MHC.CM.PN ---
IMM 03/27/22 Male 67 S/P R BKA. He lives by himself. He reports use of electric WC. He has [employer] and [facility] services in place. PT rec STR. Preferences obtained and referrals sent. DP STR via BLS. [facility] x2 HCP on file.
--- NOTE | 2022-03-27 14:12 | HO.POSTANES ---
Post Anesthesia Evaluation Post Anesthesia Evaluation Vital Signs: Vital Signs Temp Pulse Resp BP Pulse Ox O2 Del Method 03/27/22 11:39 98.6 F 90 18 141/63 H 97 Room Air 03/27/22 09:00 100.4 F 88 17 160/71 H 96 Room Air 03/27/22 07:07 101.9 F H 108 H 9 L 184/83 H 96 Room Air 03/27/22 03:09 98.5 F 107 H 18 174/77 H 97 Room Air Anesthesia: General Mental Status: Awake Pain Control: Satisfactory (continues to have pain) Nausea/Vomiting: None Hydration: Adequate Anesthesia-Related Issues: No Anes. Related Issues
[2022-03-27] MEDS: 0.9 % Sodium Chloride Flush 3 ML SYRINGE IVFLUSH ×2 (15:34→20:38)
[2022-03-27 16:00] VITALS: BP 145/67; PULSE 87; RESP 18; TEMP 36.8; O2SAT 96
[2022-03-27 16:35] LABS: Glucose, Whole Blood 160 mg/dL (60-115)
[2022-03-27] MEDS: Insulin Lispro 100 UNIT/ML 3 ML VIAL SUBCUT ×2 (17:16→20:34)
[2022-03-27] MEDS: amLODIPine Besylate 10 MG TABLET PO (17:16)
[2022-03-27 19:31] VITALS: BP 140/63; PULSE 86; RESP 18; TEMP 36.7; O2SAT 95
[2022-03-27 20:30] LABS: Glucose, Whole Blood 162 mg/dL (60-115)
[2022-03-27] MEDS: Docusate Sodium 100 MG CAPSULE PO (20:34)
[2022-03-27] MEDS: Tamsulosin HCL 0.4 MG CAPSULE PO (20:34)
[2022-03-28] MEDS: HYDROmorphone HCl 1 MG/ML SYRINGE IVPUSH ×4 (02:32→20:12)
[2022-03-28] MEDS: Heparin Sodium,Porcine 5,000 UNIT/ML VIAL 5000 UNIT SUBCUT ×3 (02:32→18:14)
[2022-03-28 03:04] VITALS: BP 161/68; PULSE 85; RESP 16; TEMP 36.9; O2SAT 95
[2022-03-28] MEDS: oxyCODONE HCl Immed Release 5 MG TABLET PO ×3 (05:53→15:17)
[2022-03-28] MEDS: Acetaminophen 325 MG TABLET 650 MG PO ×2 (05:53→12:03)
[2022-03-28 07:06] VITALS: BP 161/74; PULSE 88; RESP 16; TEMP 36.8; O2SAT 96
[2022-03-28 07:15] LABS: Glucose, Whole Blood 58 mg/dL (60-115)
[2022-03-28 07:39] LABS: Glucose, Whole Blood 83 mg/dL (60-115)
[2022-03-28] MEDS: glipiZIDE 10 MG TABLET 20 MG PO (07:42)
[2022-03-28] MEDS: Metoprolol Succinate ER 100 MG TAB.ER.24H PO (07:42)
[2022-03-28] MEDS: hydrALAZINE HCl 50 MG TABLET 100 MG PO ×3 (07:42→20:11)
[2022-03-28] MEDS: Isosorbide Mononitrate 60 MG TAB.ER.24H PO (07:42)
[2022-03-28] MEDS: metFORMIN HCl 1,000 MG TABLET 1000 MG PO ×2 (07:43→20:11)
[2022-03-28] MEDS: Atorvastatin Calcium 80 MG TABLET PO (07:43)
[2022-03-28] MEDS: Sertraline HCL 50 MG TABLET PO (07:43)
[2022-03-28] MEDS: Spironolactone 25 MG TABLET PO (07:43)
[2022-03-28] MEDS: SITagliptin Phosphate 100 MG TABLET PO (07:43)
[2022-03-28] MEDS: Furosemide 40 MG TABLET PO ×2 (07:43→20:11)
[2022-03-28] MEDS: 0.9 % Sodium Chloride Flush 3 ML SYRINGE IVFLUSH ×3 (07:43→20:12)
[2022-03-28] MEDS: Gabapentin 100 MG CAPSULE PO (07:43)
[2022-03-28] MEDS: Losartan Potassium 50 MG TABLET 100 MG PO (07:46)
[2022-03-28 11:18] LABS: Glucose, Whole Blood 226 mg/dL (60-115)
[2022-03-28] MEDS: Insulin Lispro 100 UNIT/ML 3 ML VIAL SUBCUT ×2 (12:04→16:57)
--- NOTE | 2022-03-28 12:26 | P.PNVS_ITS ---
Subjective Subjective Date of Service: 03/28/22 Patient reports: no new complaints and feels better Interval history: Patient is postop day 2 status post BKA. Reports pain is significantly better. He feels better. In much better spirits today. Now for routine postoperative follow-up. Physical Exam Vital Signs: Vital Signs: Last Vital Signs Temp 98.3 F 03/28/22 07:06 Pulse 88 03/28/22 07:06 Resp 16 03/28/22 07:06 BP 161/74 H 03/28/22 07:06 Pulse Ox 96 03/28/22 07:06 O2 Del Method 03/28/22 07:06 O2 Flow Rate 2 03/26/22 17:20 BMI result Body Mass Index 25.8 Const: General: cooperative, healthy appearing and no acute distress Orientation/consciousness: oriented to person, oriented to place and oriented to time HEENT: Head: Yes normal to inspection Neck: Carotids: no bruits Chest: Chest palpation & inspection: normal inspection of the chest Resp: Effort & Inspection: normal respiratory effort and able to speak in complete sentences Auscultation: clear to auscultation bilaterally Cardio: Rate: regular rate Heart sounds: S1 normal heart sound present and S2 normal heart sound present GI: Inspection: Yes normal to inspection Skin: Other: Stump dressing changed. Incision healing well General skin exam: no rashes or lesions noted Wounds: no wounds Neuro: General: oriented to person, oriented to place, oriented to time and CN's II-XI intact bilaterally Extrem: General: Yes normal to inspection, Yes full ROM and Yes no clubbing, cyanosis or edema Psych: Appearance: grossly normal and well kempt Speech and movement: Michelle l speech and movement present Affect: normal affect Progress Note: A&P Assessment and plan (1) Status post below-knee amputation of left lower extremity: Status: Acute Assessment and Plan: In short patient is doing extremely well status post left BKA. Will plan for physical therapy today. If pain can remains well controlled anticipate transfer to rehab as early as tomorrow. Thank you for allowing us to assist in this patient's care. Time Spent With Patient Time: Total time managing care of this patient today ____ minutes. Procedures Date of Service Date of Service: 03/28/22 Quality Stroke Does the patient have a stroke diagnosis?: No VTE Prior VTE?: No VTE Risk Level:: Surgical - moderate VTE Device Contraindication: Procedure Contraindicated VTE Drug Contraindication: N/A - Med Ordered
--- NOTE | 2022-03-28 13:49 | HO.PM.IMPN ---
Subjective Subjective Date of Service: 03/28/22 Interval History: Noted to have low blood sugars this morning improved with orange juice and breakfast likely due to high-dose oral hypoglycemics, foot pain is better, complain of pain mostly at night, no other acute issues tolerating diet with no nausea, no vomiting, or abdominal pain, blood pressure on higher and despite multiple antihypertensive medications, denies chest pain, no palpitations, no headache, no dizziness for Review of Systems Review of Systems: Yes all other systems are reviewed and are negative Physical Exam Vital Signs: Vital Signs: Last Vital Signs Temp 98.3 F 03/28/22 07:06 Pulse 88 03/28/22 07:06 Resp 16 03/28/22 07:06 BP 161/74 H 03/28/22 07:06 Pulse Ox 96 03/28/22 07:06 O2 Del Method 03/28/22 07:06 O2 Flow Rate 2 03/26/22 17:20 BMI result Body Mass Index 25.8 Const: Other: General awake alert x3, in no acute distress. Neck is supple no JVD. CVS regular rate rhythm, Respiratory lungs clear to auscultation, no respiratory distress, no wheeze, no rhonchi. Gastrointestinal abdomen soft, nontender, bowel sounds audible, no guarding , no rigidity. Extremities left BKA dressing in place no drainage noted Neuro nonfocal Skin no rash Psych appropriate affect Objective Data Active Medications Acetaminophen (Acetaminophen 325 Mg Tablet) 650 mg PO Q6H PRN PRN Reason: Pain, Mild (Pain Scale 1-3) Last Admin: 03/28/22 12:03 Dose: 650 mg Documented By: BRIGETTE Amlodipine Besylate (Amlodipine Besylate 10 Mg Tablet) 10 mg PO DAILY@1700 [facility]; Protocol Last Admin: 03/27/22 17:16 Dose: 10 mg Documented By: MITCH Atorvastatin Calcium (Atorvastatin Calcium 80 Mg Tablet) 80 mg PO DAILY [facility] Last Admin: 03/28/22 07:43 Dose: 80 mg Documented By: BRIGETTE Dextrose (Dextrose 50 % 25 Gm/50 Ml Syringe) 25 gm IVPUSH Q15M PRN; Protocol PRN Reason: per Hypoglycemia Standing Ord. Docusate Sodium (Docusate Sodium 100 Mg Capsule) 100 mg PO BEDTIME [facility] Last Admin: 03/27/22 20:34 Dose: 100 mg Documented By: CLIFFORD Fluticasone Propionate (Fluticasone Propionate Nasal 16 Gm [place]) 2 spray NOSTRIL-B DAILY PRN PRN Reason: Nasal Congestion Furosemide (Furosemide 40 Mg Tablet) 40 mg PO BID [facility]; Protocol Last Admin: 03/28/22 07:43 Dose: 40 mg Documented By: BRIGETTE Gabapentin (Gabapentin 100 Mg Capsule) 100 mg PO DAILY [facility] Last Admin: 03/28/22 07:43 Dose: 100 mg Documented By: BRIGETTE Glucose (Glucose Gel 15 Gm Gel..Gram.) 15 gm PO Q15M PRN; Protocol PRN Reason: per Hypoglycemia Standing Ord. Heparin Sodium (Porcine) (Heparin Sodium,Porcine 5,000 Unit/Ml Vial) 5,000 unit SUBCUT Q8H [facility] Last Admin: 03/28/22 09:57 Dose: 5,000 unit Documented By: BRIGETTE Hydralazine HCl (Hydralazine Hcl 50 Mg Tablet) 100 mg PO TID [facility]; Protocol Last Admin: 03/28/22 07:42 Dose: 100 mg Documented By: BRIGETTE Hydromorphone HCl (Hydromorphone Hcl 1 Mg/Ml Syringe) 1 mg IVPUSH Q4H PRN; Protocol PRN Reason: Pain, Severe (Pain Scale 7-10) Last Admin: 03/28/22 09:57 Dose: 1 mg Documented By: BRIGETTE Insulin Human Lispro (Insulin Lispro 100 Unit/Ml 3 Ml Vial) 0 unit SUBCUT QIDACHS [facility]; Protocol Last Admin: 03/28/22 12:04 Dose: 4 unit Documented By: BRIGETTE Isosorbide Mononitrate (Isosorbide Mononitrate 60 Mg Tab.Er.24h) 60 mg PO DAILY [facility]; Protocol Last Admin: 03/28/22 07:42 Dose: 60 mg Documented By: BRIGETTE Losartan Potassium (Losartan Potassium 50 Mg Tablet) 100 mg PO DAILY [facility]; Protocol Last Admin: 03/28/22 07:46 Dose: 100 mg Documented By: BRIGETTE Metformin HCl (Metformin Hcl 1,000 Mg Tablet) 1,000 mg PO BID [facility] Last Admin: 03/28/22 07:43 Dose: 1,000 mg Documented By: BRIGETTE Metoprolol Succinate (Metoprolol Succinate Er 100 Mg Tab.Er.24h) 100 mg PO DAILY [facility]; Protocol Last Admin: 03/28/22 07:42 Dose: 100 mg Documented By: BRIGETTE Oxycodone HCl (Oxycodone Hcl Immed Release 5 Mg Tablet) 5 mg PO Q4H PRN PRN Reason: Pain, Moderate (Pain Scale 4-6 Last Admin: 03/28/22 09:57 Dose: 5 mg Documented By: BRIGETTE Sertraline HCl (Sertraline Hcl 50 Mg Tablet) 50 mg PO DAILY [facility] Last Admin: 03/28/22 07:43 Dose: 50 mg Documented By: BRIGETTE Sodium Chloride (0.9 % Sodium Chloride Flush 3 Ml Syringe) 3 ml IVFLUSH QSHIFT [facility] Last Admin: 03/28/22 07:43 Dose: 3 ml Documented By: BRIGETTE Spironolactone (Spironolactone 25 Mg Tablet) 25 mg PO DAILY [facility]; Protocol Last Admin: 03/28/22 07:43 Dose: 25 mg Documented By: BRIGETTE Tamsulosin HCl (Tamsulosin Hcl 0.4 Mg Capsule) 0.4 mg PO BEDTIME [facility] Last Admin: 03/27/22 20:34 Dose: 0.4 mg Documented By: CLIFFORD Labs 03/27/22 05:12 03/27/22 05:12 Labs: Laboratory Results - last 24 hr 03/27/22 03/27/22 03/28/22 16:25 20:26 07:09 POC Glucose 160 H 162 H 58 L* 03/28/22 03/28/22 07:36 11:10 POC Glucose 83 226 H Assessment and Plan (1) Influenza A: Status: Resolved (2) Status post below-knee amputation of left lower extremity: Status: Acute Plan 67 year old man admitted by vascular surgery and is s/p Left BKA Fever resolved, persistent leukocytosis, patient clinically stable denies urinary symptoms, no shortness of breath or cough likely due to left foot infection and recent surgery will follow clinical course. Left BKA secondary to non healing TMA Pain better control continue gabapentin and current pain medications Diabetes 2 Noted to have low blood sugars likely due to high dose of glipizide 20 mg b.i.d., sitagliptin and metformin will hold glipizide today follow blood sugar closely and resume glipizide low-dose from tomorrow CKD3 baseline HFpEF not in exacerbation HTN with elevated bp readings likely due to pain continue all home medications and follow blood pressure acute on chronic normocytic anemia Noted to have drop in hematocrit likely due to infection recent surgery, Follow H&H at a.m. DVT prophylaxis on heparin Full code Disposition as per vascular surgery Time Spent With Patient Time: Total time managing care of this patient today ____ minutes. Quality Stroke Does the patient have a stroke diagnosis?: No VTE Prior VTE?: No VTE Risk Level:: Surgical - moderate VTE Device Contraindication: Procedure Contraindicated VTE Drug Contraindication: N/A - Med Ordered
[2022-03-28 15:18] VITALS: RESP 20
[2022-03-28 16:00] VITALS: BP 131/61; PULSE 76; RESP 20; TEMP 36.3; O2SAT 95
[2022-03-28 16:29] LABS: Glucose, Whole Blood 161 mg/dL (60-115)
[2022-03-28] MEDS: amLODIPine Besylate 10 MG TABLET PO (16:57)
[2022-03-28 19:19] VITALS: BP 148/67; PULSE 75; RESP 18; TEMP 36.8; O2SAT 96
[2022-03-28 19:46] LABS: Glucose, Whole Blood 136 mg/dL (60-115)
[2022-03-28] MEDS: Docusate Sodium 100 MG CAPSULE PO (20:11)
[2022-03-28] MEDS: Tamsulosin HCL 0.4 MG CAPSULE PO (20:11)
[2022-03-29] VITALS (7 sets, daily range): BP systolic 122–178; BP diastolic 59–81; PULSE 70–88; RESP 16–19; TEMP 36.4–36.9; O2SAT 95–98
[2022-03-29] MEDS: HYDROmorphone HCl 1 MG/ML SYRINGE IVPUSH (00:28)
[2022-03-29] MEDS: Heparin Sodium,Porcine 5,000 UNIT/ML VIAL 5000 UNIT SUBCUT ×3 (00:30→16:30)
[2022-03-29] MEDS: oxyCODONE HCl Immed Release 5 MG TABLET PO ×4 (00:34→20:09)
[2022-03-29 06:36] LABS: Hematocrit 21.4 % (42.0-52.0); Mean Corpuscular HGB Conc 31.8 g/dl (31.0-36.0); Mean Corpuscular Hemoglobin 28.6 pg (27.0-33.0); Mean Corpuscular Volume 89.9 fL (80.0-98.0); Mean Platelet Volume 9.3 fL (9.4-12.4); Platelet Count 453 X10*3/uL (160-400); Red Blood Count 2.38 X10*6/uL (4.60-5.80); Red Cell Distribution Width 14.3 % (11.0-16.0); White Blood Count 11.4 X10*3/uL (4.8-10.8)
[2022-03-29 07:48] LABS: Hemoglobin 6.8 g/dl (14.0-18.0)
--- NOTE | 2022-03-29 07:50 | MHC.PIE ---
P= H&H of 6.8 I-Notify provider. Will put in orders for transfusion. E=Awaiting transfusion orders. Pt is Asymptomatic
[2022-03-29] MEDS: Isosorbide Mononitrate 60 MG TAB.ER.24H PO (07:53)
[2022-03-29] MEDS: Sertraline HCL 50 MG TABLET PO (07:53)
[2022-03-29] MEDS: metFORMIN HCl 1,000 MG TABLET 1000 MG PO ×2 (07:54→20:09)
[2022-03-29] MEDS: Spironolactone 25 MG TABLET PO (07:54)
[2022-03-29] MEDS: hydrALAZINE HCl 50 MG TABLET 100 MG PO ×3 (07:54→20:10)
[2022-03-29] MEDS: Acetaminophen 325 MG TABLET 650 MG PO ×3 (07:54→20:09)
[2022-03-29] MEDS: Losartan Potassium 50 MG TABLET 100 MG PO (07:55)
[2022-03-29] MEDS: Atorvastatin Calcium 80 MG TABLET PO (07:55)
[2022-03-29] MEDS: Gabapentin 100 MG CAPSULE PO (07:55)
[2022-03-29] MEDS: Metoprolol Succinate ER 100 MG TAB.ER.24H PO (07:55)
[2022-03-29] MEDS: Furosemide 40 MG TABLET PO ×2 (07:55→20:09)
[2022-03-29] MEDS: 0.9 % Sodium Chloride Flush 3 ML SYRINGE IVFLUSH ×3 (07:56→20:10)
--- NOTE | 2022-03-29 09:07 | P.PNVS_ITS ---
Subjective Subjective Date of Service: 03/29/22 Patient reports: no new complaints and feels better Interval history: Very pleasant 67-year-old gentleman status post BKA. Appears to be doing significantly better. Pain significantly better controlled. Of note hemoglobin was decreased overnight. Physical Exam Vital Signs: Vital Signs: Last Vital Signs Temp 97.6 F 03/29/22 07:40 Pulse 88 03/29/22 07:40 Resp 16 03/29/22 07:40 BP 178/81 H 03/29/22 07:40 Pulse Ox 98 03/29/22 07:40 O2 Del Method 03/29/22 07:40 O2 Flow Rate 2 03/26/22 17:20 BMI result Body Mass Index 25.8 Const: General: cooperative, healthy appearing and no acute distress [place] ation/consciousness: oriented to person, oriented to place and oriented to time HEENT: Head: Yes normal to inspection Neck: Carotids: no bruits Chest: Chest palpation & inspection: normal inspection of the chest Resp: Effort & Inspection: normal respiratory effort and able to speak in complete sentences Auscultation: clear to auscultation bilaterally Cardio: Rate: regular rate Heart sounds: S1 normal heart sound present and S2 normal heart sound present GI: Inspection: Yes normal to inspection Skin: General skin exam: no rashes or lesions noted Wounds: amputation site (Amp site healing well) Neuro: General: oriented to person, oriented to place, oriented to time and CN's II-XI intact bilaterally Extrem: General: Yes normal to inspection, Yes full ROM and Yes no clubbing, cyanosis or edema Psych: Appearance: grossly normal and well kempt Speech and movement: Normal speech and movement present Affect: normal affect Progress Note: A&P Assessment and plan (1) Status post below-knee amputation of left lower extremity: Status: Acute Assessment and Plan: In short patient is doing extremely well status post BKA. Pain is much better controlled. Unfortunately his hemoglobin has decreased in will require unit of blood. This is anemia due to acute blood loss postoperatively. PT evaluation appreciated. Will plan for rehab placement if accepted. This would be the best option for him as he lives alone and has no resources. Thank you for allowing us to assist in his care. Time Spent With Patient Time: Total time managing care of this patient today ____ minutes. Procedures Date of Service Date of Service: 03/29/22 Quality Stroke Does the patient have a stroke diagnosis?: No VTE Prior VTE?: No VTE Risk Level:: Surgical - moderate VTE Device Contraindication: Procedure Contraindicated VTE Drug Contraindication: N/A - Med Ordered
--- NOTE | 2022-03-29 10:36 | HO.PM.IMPN ---
Subjective Subjective Date of Service: 03/29/22 Interval History: Feeling better this morning good pain control, denies lightheadedness, dizziness, denies chest pain, no palpitations, tolerating diet with no nausea no vomiting, no abdominal pain, no other acute issues overnight noted to have significant drop in hematocrit crit to 21.4 this morning no active blood loss noted. Review of Systems Review of Systems: Yes all other systems are reviewed and are negative Physical Exam Vital Signs: Vital Signs: Last Vital Signs Temp 97.6 F 03/29/22 07:40 Pulse 88 03/29/22 07:40 Resp 16 03/29/22 07:40 BP 178/81 H 03/29/22 07:40 Pulse Ox 98 03/29/22 07:40 O2 Del Method 03/29/22 07:40 O2 Flow Rate 2 03/26/22 17:20 BMI result Body Mass Index 25.8 Const: Other: General awake alert x3, in no acute distress.? Neck is supple no JVD. CVS? regular rate rhythm, Respiratory lungs clear to auscultation, no respiratory distress, no wheeze, no rhonchi. Gastrointestinal abdomen soft, nontender, bowel sounds audible, no guarding , no rigidity. Extremities left BKA dressing in place, no drainage noted. Neuro nonfocal Skin no rash Psych appropriate affect Objective Data Active Medications Acetaminophen (Acetaminophen 325 Mg Tablet) 650 mg PO Q6H PRN PRN Reason: Pain, Mild (Pain Scale 1-3) Last Admin: 03/29/22 07:54 Dose: 650 mg Documented By: BRIGETTE Amlodipine Besylate (Amlodipine Besylate 10 Mg Tablet) 10 mg PO DAILY@1700 [facility]; Protocol Last Admin: 03/28/22 16:57 Dose: 10 mg Documented By: LALI Atorvastatin Calcium (Atorvastatin Calcium 80 Mg Tablet) 80 mg PO DAILY [facility] Last Admin: 03/29/22 07:55 Dose: 80 mg Documented By: BRIGETTE Dextrose (Dextrose 50 % 25 Gm/50 Ml Syringe) 25 gm IVPUSH Q15M PRN; Protocol PRN Reason: per Hypoglycemia Standing Ord. Docusate Sodium (Docusate Sodium 100 Mg Capsule) 100 mg PO BEDTIME [facility] Last Admin: 03/28/22 20:11 Dose: 100 mg Documented By: MITCH Fluticasone Propionate (Fluticasone Propionate Nasal 16 Gm [place]) 2 spray NOSTRIL-B DAILY PRN PRN Reason: Nasal Congestion Furosemide (Furosemide 40 Mg Tablet) 40 mg PO BID [facility]; Protocol Last Admin: 03/29/22 07:55 Dose: 40 mg Documented By: BRIGETTE Gabapentin (Gabapentin 100 Mg Capsule) 100 mg PO DAILY [facility] Last Admin: 03/29/22 07:55 Dose: 100 mg Documented By: BRIGETTE Glucose (Glucose Gel 15 Gm Gel..Gram.) 15 gm PO Q15M PRN; Protocol PRN Reason: per Hypoglycemia Standing Ord. Heparin Sodium (Porcine) (Heparin Sodium,Porcine 5,000 Unit/Ml Vial) 5,000 unit SUBCUT Q8H [facility] Last Admin: 03/29/22 00:30 Dose: 5,000 unit Documented By: LYSRaymon Hydralazine HCl (Hydralazine Hcl 50 Mg Tablet) 100 mg PO TID [facility]; Protocol Last Admin: 03/29/22 07:54 Dose: 100 mg Documented By: BRIGETTE Insulin Human Lispro (Insulin Lispro 100 Unit/Ml 3 Ml Vial) 0 unit SUBCUT QIDACHS [facility]; Protocol Last Admin: 03/29/22 07:53 Dose: Not Given Documented By: BRIGETTE Non-Admin Reason: No Insulin Coverage Isosorbide Mononitrate (Isosorbide Mononitrate 60 Mg Tab.Er.24h) 60 mg PO DAILY [facility]; Protocol Last Admin: 03/29/22 07:53 Dose: 60 mg Documented By: BRIGETTE Losartan Potassium (Losartan Potassium 50 Mg Tablet) 100 mg PO DAILY [facility]; Protocol Last Admin: 03/29/22 07:55 Dose: 100 mg Documented By: BRIGETTE Metformin HCl (Metformin Hcl 1,000 Mg Tablet) 1,000 mg PO BID [facility] Last Admin: 03/29/22 07:54 Dose: 1,000 mg Documented By: BRIGETTE Metoprolol Succinate (Metoprolol Succinate Er 100 Mg Tab.Er.24h) 100 mg PO DAILY [facility]; Protocol Last Admin: 03/29/22 07:55 Dose: 100 mg Documented By: BRIGETTE Oxycodone HCl (Oxycodone Hcl Immed Release 5 Mg Tablet) 5 mg PO Q4H PRN PRN Reason: Pain, Moderate (Pain Scale 4-6 Last Admin: 03/29/22 07:54 Dose: 5 mg Documented By: BRIGETTE Sertraline HCl (Sertraline Hcl 50 Mg Tablet) 50 mg PO DAILY [facility] Last Admin: 03/29/22 07:53 Dose: 50 mg Documented By: BRIGETTE Sodium Chloride (0.9 % Sodium Chloride Flush 3 Ml Syringe) 3 ml IVFLUSH QSHIFT [facility] Last Admin: 03/29/22 07:56 Dose: 3 ml Documented By: BRIGETTE Spironolactone (Spironolactone 25 Mg Tablet) 25 mg PO DAILY [facility]; Protocol Last Admin: 03/29/22 07:54 Dose: 25 mg Documented By: BRIGETTE Tamsulosin HCl (Tamsulosin Hcl 0.4 Mg Capsule) 0.4 mg PO BEDTIME [facility] Last Admin: 03/28/22 20:11 Dose: 0.4 mg Documented By: LYSZ Labs 03/29/22 06:25 03/27/22 05:12 Labs: Laboratory Results - last 24 hr 03/26/22 03/28/22 03/28/22 11:55 11:10 16:18 MCV MCH MCHC RDW Plt Count MPV Absolute Nucleated RBC Nucleated RBC % (auto) POC Glucose 226 H 161 H Blood Type O Positive Antibody Screen NEGATIVE Crossmatch See Detail 03/28/22 03/29/22 19:14 06:25 MCV 89.9 MCH 28.6 MCHC 31.8 RDW 14.3 Plt Count 453 H MPV 9.3 L Absolute Nucleated RBC 0.000 Nucleated RBC % (auto) 0.0 POC Glucose 136 H Blood Type Antibody Screen Crossmatch Assessment and Plan (1) Influenza A: Status: Resolved (2) Status post below-knee amputation of left lower extremity: Status: Acute Plan 67 year old man admitted by vascular surgery and is s/p Left BKA Fever resolved, WBC trending down,patient clinically stable denies urinary symptoms, no shortness of breath or cough leukocytosis likely due to left foot infection and recent surgery will follow clinical course. 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 acute on chronic normocytic anemia Noted to have significant drop in hematocrit likely due to infection recent surgery, will transfuse 1 unit of packed RBC and follow CBC DVT prophylaxis on heparin Full code Disposition as per vascular surgery Time Spent With Patient Time: Total time managing care of this patient today ____ minutes. Quality Stroke Does the patient have a stroke diagnosis?: No VTE Prior VTE?: No VTE Risk Level:: Surgical - moderate VTE Device Contraindication: Procedure Contraindicated VTE Drug Contraindication: N/A - Med Ordered
--- NOTE | 2022-03-29 11:07 | PC.NURSE ---
Addendum entered by Santa Orta RN 03/29/22 18:29: Pt post blood transfusion with no S/SX of blood transfsion reaction. Blood sugars in the 100s with some coverage. Original Note: Pt alert and oriented x4. C/O 11/18 to the [facility]. PRN Dilaudid, Oxycodone and Tylenol given with postive effect. Critical H&H level of 6.8 and 21.4. notified. Pt Typed and screened. Currently pt is infusing 1 unit of PRBC.
[2022-03-29] MEDS: SITagliptin Phosphate 100 MG TABLET PO (11:23)
[2022-03-29] MEDS: Insulin Lispro 100 UNIT/ML 3 ML VIAL SUBCUT ×3 (11:23→21:05)
[2022-03-29 11:33] LABS: Glucose, Whole Blood 169 mg/dL (60-115)
[2022-03-29] MEDS: amLODIPine Besylate 10 MG TABLET PO (16:30)
[2022-03-29 16:42] LABS: Glucose, Whole Blood 170 mg/dL (60-115)
[2022-03-29] MEDS: Docusate Sodium 100 MG CAPSULE PO (20:09)
[2022-03-29] MEDS: Tamsulosin HCL 0.4 MG CAPSULE PO (20:09)
[2022-03-29 20:33] LABS: Glucose, Whole Blood 223 mg/dL (60-115)
[2022-03-30] MEDS: Heparin Sodium,Porcine 5,000 UNIT/ML VIAL 5000 UNIT SUBCUT ×2 (01:25→10:48)
[2022-03-30] MEDS: Acetaminophen 325 MG TABLET 650 MG PO (01:26)
[2022-03-30] MEDS: oxyCODONE HCl Immed Release 5 MG TABLET PO ×2 (01:26→06:11)
[2022-03-30 03:25] VITALS: BP 146/65; PULSE 73; RESP 18; TEMP 36.3; O2SAT 97
[2022-03-30 05:47] LABS: Hematocrit 24.1 % (42.0-52.0); Hemoglobin 7.8 g/dl (14.0-18.0); Mean Corpuscular HGB Conc 32.4 g/dl (31.0-36.0); Mean Corpuscular Hemoglobin 28.2 pg (27.0-33.0); Mean Platelet Volume 9.4 fL (9.4-12.4); Platelet Count 525 X10*3/uL (160-400); Red Blood Count 2.77 X10*6/uL (4.60-5.80); Red Cell Distribution Width 14.3 % (11.0-16.0); White Blood Count 11.6 X10*3/uL (4.8-10.8)
[2022-03-30 07:38] VITALS: BP 146/67; PULSE 76; RESP 17; TEMP 36.8; O2SAT 97
[2022-03-30 08:04] LABS: Glucose, Whole Blood 165 mg/dL (60-115)
[2022-03-30] MEDS: Sertraline HCL 50 MG TABLET PO (08:20)
[2022-03-30] MEDS: Atorvastatin Calcium 80 MG TABLET PO (08:20)
[2022-03-30] MEDS: Isosorbide Mononitrate 60 MG TAB.ER.24H PO (08:20)
[2022-03-30] MEDS: Spironolactone 25 MG TABLET PO (08:20)
[2022-03-30] MEDS: Metoprolol Succinate ER 100 MG TAB.ER.24H PO (08:20)
[2022-03-30] MEDS: SITagliptin Phosphate 100 MG TABLET PO (08:20)
[2022-03-30] MEDS: glipiZIDE 10 MG TABLET PO (08:20)
[2022-03-30] MEDS: Losartan Potassium 50 MG TABLET 100 MG PO (08:20)
[2022-03-30] MEDS: Insulin Lispro 100 UNIT/ML 3 ML VIAL SUBCUT (08:20)
[2022-03-30] MEDS: hydrALAZINE HCl 50 MG TABLET 100 MG PO (08:21)
[2022-03-30] MEDS: Gabapentin 100 MG CAPSULE PO (08:21)
[2022-03-30] MEDS: Furosemide 40 MG TABLET PO (08:21)
[2022-03-30] MEDS: 0.9 % Sodium Chloride Flush 3 ML SYRINGE IVFLUSH (08:21)
[2022-03-30] MEDS: metFORMIN HCl 1,000 MG TABLET 1000 MG PO (08:22)
--- NOTE | 2022-03-30 08:57 | MHC.CM.PN ---
Addendum entered by Kia Candelario RN 03/30/22 10:56: PT HAS BED OFFER AT [facility] AND WILL TRANSFER VIA [facility]END[facility] COVID. Original Note: IMM 03/30/22, PT MEDICALLY CLEARED TO D/C TO [facility], PT WILL GO TO [facility] VS [facility] AND HAS NO PREFERENCE ON WHICH FACILITY, CM AWAITING ON BED AVAILABILITY AND WILL NEED BLS TANSPORT.
--- NOTE | 2022-03-30 09:33 | HO.PM.IMPN ---
Subjective Subjective Date of Service: 03/30/22 Interval History: Patient feeling better this morning good pain control, offers no acute complaints tolerating diet, denies nausea, no vomiting, no abdominal pain, no diarrhea blood sugars are better controlled. Review of Systems General no headache no dizziness no fever chills. CVS no chest pain, no palpitation. Respiratory no cough, no sob Gastrointestinal no nausea no vomiting, no abdominal pain Review of Systems: Yes all other systems are reviewed and are negative Physical Exam Vital Signs: Vital Signs: Last Vital Signs Temp 98.3 F 03/30/22 07:38 Pulse 76 03/30/22 07:38 Resp 17 03/30/22 07:38 BP 146/67 H 03/30/22 07:38 Pulse Ox 97 03/30/22 07:38 O2 Del Method 03/30/22 07:38 O2 Flow Rate 2 03/26/22 17:20 BMI result Body Mass Index 25.8 Const: Other: General awake aler t x3, in no acute distress.? Neck is supple no JVD. CV S? regular rate rh ythm, Respiratory lungs clear to aus cultation, no resp iratory distress, no wheeze, no rhon chi. Gastrointesti nal abdomen soft, nontender, bowel s ounds audible, no guarding , no rigi dity. Extremities left BKA dressing in place, no drain age noted. Neuro n onfocal Skin no ra sh Psych appropria te affect Objective Data Active Medications Acetaminophen (Acetaminophen 325 Mg Tablet) 650 mg PO Q6H PRN PRN Reason: Pain, Mild (Pain Scale 1-3) Last Admin: 03/30/22 01:26 Dose: 650 mg Documented By: MITCH Amlodipine Besylate (Amlodipine Besylate 10 Mg Tablet) 10 mg PO DAILY@1700 [facility]; Protocol Last Admin: 03/29/22 16:30 Dose: 10 mg Documented By: BRIGETTE Atorvastatin Calcium (Atorvastatin Calcium 80 Mg Tablet) 80 mg PO DAILY [facility] Last Admin: 03/30/22 08:20 Dose: 80 mg Documented By: LAURA Dextrose (Dextrose 50 % 25 Gm/50 Ml Syringe) 25 gm IVPUSH Q15M PRN; Protocol PRN Reason: per Hypoglycemia Standing Ord. Docusate Sodium (Docusate Sodium 100 Mg Capsule) 100 mg PO BEDTIME [facility] Last Admin: 03/29/22 20:09 Dose: 100 mg Documented By: MITCH Fluticasone Propionate (Fluticasone Propionate Nasal 16 Gm [place]) 2 spray NOSTRIL-B DAILY PRN PRN Reason: Nasal Congestion Furosemide (Furosemide 40 Mg Tablet) 40 mg PO BID [facility]; Protocol Last Admin: 03/30/22 08:21 Dose: 40 mg Documented By: LAURA Gabapentin (Gabapentin 100 Mg Capsule) 100 mg PO DAILY [facility] Last Admin: 03/30/22 08:21 Dose: 100 mg Documented By: LAURA Glipizide (Glipizide 10 Mg Tablet) 10 mg PO BIDWM [facility] Last Admin: 03/30/22 08:20 Dose: 10 mg Documented By: LAURA Glucose (Glucose Gel 15 Gm Gel..Gram.) 15 gm PO Q15M PRN; Protocol PRN Reason: per Hypoglycemia Standing Ord. Heparin Sodium (Porcine) (Heparin Sodium,Porcine 5,000 Unit/Ml Vial) 5,000 unit SUBCUT Q8H [facility] Last Admin: 03/30/22 01:25 Dose: 5,000 unit Documented By: MITCH Hydralazine HCl (Hydralazine Hcl 50 Mg Tablet) 100 mg PO TID [facility]; Protocol Last Admin: 03/30/22 08:21 Dose: 100 mg Documented By: LAURA Insulin Human Lispro (Insulin Lispro 100 Unit/Ml 3 Ml Vial) 0 unit SUBCUT QIDACHS [facility]; Protocol Last Admin: 03/30/22 08:20 Dose: 2 unit Documented By: LAURA Isosorbide Mononitrate (Isosorbide Mononitrate 60 Mg Tab.Er.24h) 60 mg PO DAILY [facility]; Protocol Last Admin: 03/30/22 08:20 Dose: 60 mg Documented By: LAURA Losartan Potassium (Losartan Potassium 50 Mg Tablet) 100 mg PO DAILY [facility]; Protocol Last Admin: 03/30/22 08:20 Dose: 100 mg Documented By: LAURA Metformin HCl (Metformin Hcl 1,000 Mg Tablet) 1,000 mg PO BID [facility] Last Admin: 03/30/22 08:22 Dose: 1,000 mg Documented By: LAURA Metoprolol Succinate (Metoprolol Succinate Er 100 Mg Tab.Er.24h) 100 mg PO DAILY [facility]; Protocol Last Admin: 03/30/22 08:20 Dose: 100 mg Documented By: LAURA Oxycodone HCl (Oxycodone Hcl Immed Release 5 Mg Tablet) 5 mg PO Q4H PRN PRN Reason: Pain, Moderate (Pain Scale 4-6 Last Admin: 03/30/22 06:11 Dose: 5 mg Documented By: MITCH Sertraline HCl (Sertraline Hcl 50 Mg Tablet) 50 mg PO DAILY [facility] Last Admin: 03/30/22 08:20 Dose: 50 mg Documented By: LAURA Sitagliptin Phosphate (Sitagliptin Phosphate 100 Mg Tablet) 100 mg PO DAILY [facility] Last Admin: 03/30/22 08:20 Dose: 100 mg Documented By: LAURA Sodium Chloride (0.9 % Sodium Chloride Flush 3 Ml Syringe) 3 ml IVFLUSH QSHIFT [facility] Last Admin: 03/30/22 08:21 Dose: 3 ml Documented By: LAURA Spironolactone (Spironolactone 25 Mg Tablet) 25 mg PO DAILY [facility]; Protocol Last Admin: 03/30/22 08:20 Dose: 25 mg Documented By: LAURA Tamsulosin HCl (Tamsulosin Hcl 0.4 Mg Capsule) 0.4 mg PO BEDTIME [facility] Last Admin: 03/29/22 20:09 Dose: 0.4 mg Documented By: MITCH Labs 03/30/22 05:04 03/27/22 05:12 Labs: Laboratory Results - last 24 hr 03/26/22 03/29/22 03/29/22 11:55 06:25 11:13 MCV MCH MCHC RDW Plt Count MPV Absolute Nucleated RBC Nucleated RBC % (auto) Smear Path Review SEE NOTE POC Glucose 169 H Blood Type O Positive Antibody Screen NEGATIVE Crossmatch See Detail 03/29/22 03/29/22 03/30/22 16:24 20:26 05:04 MCV 87.0 MCH 28.2 MCHC 32.4 RDW 14.3 Plt Count 525 H MPV 9.4 Absolute Nucleated RBC 0.000 Nucleated RBC % (auto) 0.0 Smear Path Review POC Glucose 170 H 223 H Blood Type Antibody Screen Crossmatch 03/30/22 07:14 MCV MCH MCHC RDW Plt Count MPV Absolute Nucleated RBC Nucleated RBC % (auto) Smear Path Review POC Glucose 165 H Blood Type Antibody Screen Crossmatch Assessment and Plan (1) Influenza A: Status: Resolved (2) Status post below-knee amputation of left lower extremity: Status: Acute Plan 67 year old man admitted by vascular surgery and is s/p Left BKA Fever resolved, WBC trending down to 11.6 today,patient clinically stable denies urinary symptoms, no shortness of breath or cough leukocytosis likely due to left foot infection and recent surgery. 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 Diabetes 2 Blood sugars better controlled, low blood sugars were likely due to high dose of glipizide 20 mg b.i.d., sitagliptin and metformin ,will resume glipizide 10 mg by mouth b.i.d., discuss in detail regarding low-calorie diet to maintain good blood sugar control . CKD3 baseline HFpEF not in exacerbation HTN better blood pressure control, continue all home medications and follow blood pressure. DVT prophylaxis on heparin Full code Disposition as per vascular surgery Time Spent With Patient Time: Total time managing care of this patient today ____ minutes. Quality Stroke Does the patient have a stroke diagnosis?: No VTE Prior VTE?: No VTE Risk Level:: Surgical - moderate VTE Device Contraindication: Procedure Contraindicated VTE Drug Contraindication: N/A - Med Ordered
--- NOTE | 2022-03-30 09:47 | PM.DS ---
DS: Providers Provider Date of Service: 03/30/22 Date of admission: 03/26/22 15:10 Primary care physician: Alexa Cohn MD Consults: 03/26/22 15:10 Consult to Hospitalist Routine Consulting Provider: Hospitalist Reason For Exam: Diabetes management DS: Diagnosis Discharge Diagnosis (1) Status post below-knee amputation of left lower extremity: Status: Acute DS: Summary Hospital Course Hospital Course: Patient was admitted and underwent elective BKA. Postoperatively was maintained on the floor and did relatively well. He did have a slight drift in hemoglobin was required a 1 unit of blood. He was able to ambulate fairly well with the use of a walker. He did undergo PT evaluation. He is now for rehab placement. Time Spent with Patient Time attestation: Total time managing care of this patient today ____ minutes. Discharge coordination time: Greater than 30 minutes Quality: Safe Use of Opioids Does Pt have an Active Cancer Diagnosis on the Problem List?: No Quality: Stroke Does the patient have a stroke diagnosis?: No Physical Exam Vital Signs: Vital Signs: Last Vital Signs Temp 98.3 F 03/30/22 07:38 Pulse 76 03/30/22 07:38 Resp 17 03/30/22 07:38 BP 146/67 H 03/30/22 07:38 Pulse Ox 97 03/30/22 07:38 O2 Del Method 03/30/22 07:38 O2 Flow Rate 2 03/26/22 17:20 BMI result Body Mass Index 25.8 Const: General: cooperative, healthy appearing and no acute distress Orientation/consciousness: oriented to person, oriented to place and oriented to time HEENT: Head: Yes normal to inspection Neck: Carotids: no bruits Chest: Chest palpation & inspection: normal inspection of the chest Resp: Effort & Inspection: normal respiratory effort and able to speak in complete sentences Auscultation: clear to auscultation bilaterally Cardio: Rate: regular rate Heart sounds: S1 normal heart sound present and S2 normal heart sound present GI: Inspection: Yes normal to inspection Skin: Other: Amputation site healing well General skin exam: no rashes or lesions noted Wounds: no wounds Neuro: General: oriented to person, oriented to place, oriented to time and CN's II-XI intact bilaterally Extrem: General: Yes normal to inspection, Yes full ROM and Yes no clubbing, cyanosis or edema Psych: Appearance: grossly normal and well kempt Speech and movement: Normal speech and movement present Affect: normal affect DS: Data Data Completed and Pending Completed studies during hospitalization [Text1]: Procedures Detachment at Left 1st Toe, Complete, Open Approach (01/24/22) Detachment at Left Foot, Partial 1st Ray, Open Approach (02/02/22) Detachment at Left Foot, Partial 2nd Ray, Open Approach (02/02/22) Detachment at Left Foot, Partial 3rd Ray, Open Approach (02/02/22) Detachment at Left Foot, Partial 4th Ray, Open Approach (02/02/22) Detachment at Left Foot, Partial 5th Ray, Open Approach (02/02/22) Extirpation of Matter from Left Femoral Artery, Open Approach (01/03/22) Fluoroscopy of Aorta and Bilateral Lower Extremity Arteries (01/03/22) Plain Radiography of Aorta and Bilateral Lower Extremity Arteries using Low Osmolar Contrast (01/24/22) Supplement Left Femoral Artery with Synthetic Substitute, Open Approach (01/03/22) Transfusion of Nonautologous Red Blood Cells into Peripheral Vein, Percutaneous Approach (03/08/22) Pending studies at discharge: Pending at discharge 03/26/22 14:16 Surgical [PTH] Routine Labs on day of discharge: Laboratory Results - last 24 hr 03/26/22 03/29/22 03/29/22 11:55 06:25 11:13 WBC RBC Hgb Hct MCV MCH MCHC RDW Plt Count MPV Absolute Nucleated RBC Nucleated RBC % (auto) Smear Path Review SEE NOTE POC Glucose 169 H Blood Type O Positive Antibody Screen NEGATIVE Crossmatch See Detail 03/29/22 03/29/22 03/30/22 16:24 20:26 05:04 WBC 11.6 H RBC 2.77 L Hgb 7.8 L Hct 24.1 L MCV 87.0 MCH 28.2 MCHC 32.4 RDW 14.3 Plt Count 525 H MPV 9.4 Absolute Nucleated RBC 0.000 Nucleated RBC % (auto) 0.0 Smear Path Review POC Glucose 170 H 223 H Blood Type Antibody Screen Crossmatch 03/30/22 07:14 WBC RBC Hgb Hct MCV MCH MCHC RDW Plt Count MPV Absolute Nucleated RBC Nucleated RBC % (auto) Smear Path Review POC Glucose 165 H Blood Type Antibody Screen Crossmatch Discharge Plan Discharge Anticipated Discharge Date/Time: 03/30/22 09:28 Patient Disposition: Xfer Inpatient Rehab Fac Discharge Diagnosis: Status post below-knee amputation Referrals: Alexa Cohn MD [Primary Care Provider] - 1 Week Discharge Medications: New oxycodone 5 mg tablet 5 mg PO Q6H PRN (Reason: pain) Qty: 10 0RF Rx Instructions: Partial Fill upon patient request. Continued tamsulosin 0.4 mg capsule 0.4 mg PO BEDTIME Qty: 30 2RF oxycodone 5 mg Tablet 5 mg PO Q6H PRN (Reason: Pain, Moderate (Pain Scale 4-6) Qty: 20 0RF Rx Instructions: Partial Fill upon patient request. insulin degludec [Tresiba FlexTouch U-100] 100 unit/mL (3 mL) insulin pen 25 unit subcut QPM oxycodone-acetaminophen [Percocet] 5-325 mg tablet 1 tab PO Q8H PRN (Reason: pain) Qty: 14 0RF Rx Instructions: Partial Fill upon patient request. amlodipine 10 mg Tablet 10 mg PO DAILY@1700 30 Days Qty: 30 0RF Protocol: Hold for SBP< HOLD for SBP < : 90 spironolactone 25 mg Tablet 25 mg PO DAILY Qty: 30 0RF Protocol: Hold for SBP< HOLD for SBP < : 90 isosorbide mononitrate 60 mg Tablet Extended Release 24 Hr 60 mg PO DAILY Qty: 30 0RF Protocol: Hold for SBP< HOLD for SBP < : 90 docusate sodium 100 mg Capsule 100 mg PO BEDTIME Qty: 30 0RF hydralazine 50 mg Tablet 100 mg PO TID Qty: 90 0RF Protocol: Hold for SBP< HOLD for SBP < : 90 losartan 50 mg tablet 100 mg PO QAM Qty: 60 0RF furosemide 40 mg tablet 40 mg PO BID Qty: 60 0RF Januvia 100 mg tablet 100 mg PO DAILY sertraline 50 mg tablet 50 mg PO DAILY fluticasone propionate 50 mcg/actuation spray,suspension 2 spray intranasal QAM PRN (Reason: Nasal Congestion) metformin 1,000 mg tablet 1,000 mg PO BID metoprolol succinate 100 mg tablet extended release 24 hr 100 mg PO DAILY glipizide 10 mg tablet 20 mg PO BID atorvastatin 80 mg tablet 80 mg PO DAILY Discharge Orders: Discharge Order (Routine); Ordered 03/30/22 Ordered By: Lyle Topete Diet: Advance to usual diet Activity on Discharge: As tolerated Stand Alone Forms: Patient Portal Discharge page Activity Restrictions/Additional Instructions: Wound care upon discharge: xeroform, 4x4 and Kerlix wrap to be changed daily. Please call Dr. Topete at [phone] for 2 week follow up for suture and staple removal Care Plan Goals: Status post BKA ambulation Health Concerns: Status post BKA Plan of Treatment: Ambulate and eventual use of prosthetic Assessment: Status post BKA
[2022-03-30] MEDS: Ferrous Sulfate 324 MG TABLET.DR PO (10:48)
[2022-03-30 11:14] LABS: COVID-19 Test Negative (Negative); IDNOW Serial# 16C4AD1C
[2022-03-30 11:24] LABS: Glucose, Whole Blood 79 mg/dL (60-115)
[2022-03-30 12:36] LABS: Glucose, Whole Blood 70 mg/dL (60-115)
--- NOTE | 2022-03-30 12:40 | PC.NURSE ---
POC 79- malika crackers ond OJ given to pt. Recheck POC 70. Additional OJ and crackers given to pt. Pt refused lunch. Will recheck POC
[2022-03-30 13:02] LABS: Glucose, Whole Blood 80 mg/dL (60-115)
[2022-03-30 13:19] LABS: Glucose, Whole Blood 88 mg/dL (60-115)
--- NOTE | 2022-03-30 13:19 | PC.NURSE ---
POC recheck 88.
== END 2022-03-30 14:48 | DRG 475 ==
LOC: HO.EDOVER 15:17 → HO.S3 16:48
PROVIDERS: Hospitalist; Nurse Practitioner; Admitting Provider Surgery Vascular Surgery; PCP Obstetrics & Gynecology Gynecology; Visit Provider Surgery Vascular Surgery
PROC: 0Y6D0Z2 Detachment at Left Upper Leg, Mid, Open Approach (ICD-10-PCS; CPT 27880; principal; 2022-03-26 12:30)
DX: T87.81 Dehiscence of amputation stump (principal); D62 Acute posthemorrhagic anemia; I13.0 Hypertensive heart and chronic kidney disease with heart failure and stage 1 through stage 4 chronic kidney disease, or unspecified chronic kidney disease; I50.32 Chronic diastolic (congestive) heart failure; Y83.5 Amputation of limb(s) as the cause of abnormal reaction of the patient, or of later complication, without mention of misadventure at the time of the procedure; E11.69 Type 2 diabetes mellitus with other specified complication; E11.22 Type 2 diabetes mellitus with diabetic chronic kidney disease; R50.82 Postprocedural fever; N18.30 Chronic kidney disease, stage 3 unspecified; D72.829 Elevated white blood cell count, unspecified; E11.40 Type 2 diabetes mellitus with diabetic neuropathy, unspecified; E78.5 Hyperlipidemia, unspecified; E11.649 Type 2 diabetes mellitus with hypoglycemia without coma; Z87.891 Personal history of nicotine dependence; D63.1 Anemia in chronic kidney disease; Z79.4 Long term (current) use of insulin; Z79.84 Long term (current) use of oral hypoglycemic drugs; Z79.899 Other long term (current) drug therapy
CPT/HCPCS: 36415; 80048; 80307; 82947; 85025; 85027; 85610; 85730; 86850; 86900; 86901; 86923; 87635; 88307; 88311; 97162; J0690; J1170; J1643; J2250; J2270; J2795; J3010; P9016

== ENCOUNTER → 2022-04-10 11:01 | Outpatient (BNVA) | payer OTHER, SELFPAY | PROVIDERS: PCP Obstetrics & Gynecology Gynecology; Visit Provider Surgery Vascular Surgery | DX: Z13.89 Encounter for screening for other disorder (principal) ==

== ENCOUNTER → 2022-04-11 14:37 | Outpatient (BNVA) | payer OTHER, SELFPAY | PROVIDERS: PCP Obstetrics & Gynecology Gynecology; Referring Provider Obstetrics & Gynecology Gynecology; Visit Provider Nurse Practitioner Family | DX: I11.0 Hypertensive heart disease with heart failure (principal); I50.30 Unspecified diastolic (congestive) heart failure; D64.9 Anemia, unspecified; Z89.512 Acquired absence of left leg below knee | CPT/HCPCS: 99212 ==

== ENCOUNTER → 2022-04-26 09:18 | Outpatient (BNVA) | payer OTHER, SELFPAY | PROVIDERS: PCP General Practice; Visit Provider Surgery Vascular Surgery | DX: Z47.81 Encounter for orthopedic aftercare following surgical amputation (principal); Z89.512 Acquired absence of left leg below knee | CPT/HCPCS: 99212 ==

== ENCOUNTER 2022-05-23 17:08 | Outpatient (REF) | payer OTHER, SELFPAY ==
[2022-05-23 17:20] LABS: MANUAL DIFF FLAG NO
[2022-05-23 17:27] LABS: Basophils Absolute Auto 0.1 X10*3/uL (0.0-0.2); Basophils Percent Auto 0.7 % (0-2); Eosinophils Absolute Auto 0.2 X10*3/uL (0.0-0.4); Eosinophils Percent Auto 2.5 % (0-4); Hematocrit 31.8 % (42.0-52.0); Hemoglobin 10.8 g/dl (14.0-18.0); Imm Gran Abs Auto 0.04 X10*3/uL (0.00-0.03); Imm Gran Pct Auto 0.5 % (0.0-0.4); Lymphocytes Absolute Auto 1.3 X10*3/uL (1.2-4.9); Lymphocytes Percent Auto 15.1 % (20-40); Mean Corpuscular Hemoglobin 31.2 pg (27.0-33.0); Mean Corpuscular Volume 91.9 fL (80.0-98.0); Mean Platelet Volume 9.5 fL (9.4-12.4); Monocytes Percent Auto 10.8 % (2-11); Neutrophils Absolute Auto 6.3 x10*3/uL (2.0-8.3); Neutrophils Percent Auto 70.4 % (45-73); Platelet Count 303 X10*3/uL (160-400); Red Blood Count 3.46 X10*6/uL (4.60-5.80); Red Cell Distribution Width 13.9 % (11.0-16.0); White Blood Count 8.9 X10*3/uL (4.8-10.8)
[2022-05-23 17:55] LABS: Alanine Aminotransferase 28 U/L (0-40); Albumin Level 3.9 g/dL (3.5-5.0); Alkaline Phosphatase 89 U/L (39-117); Anion Gap 17 (12-20); Aspartate Amino Transferase 22 U/L (5-37); Bilirubin Total 0.3 mg/dL (0.0-1.0); Blood Urea Nitrogen 49 mg/dL (9-16); Calcium 9.5 mg/dL (8.4-10.2); Carbon Dioxide 24 mmol/L (22-29); Chloride 105 mmol/L (96-108); Estimated Glomerular Filt Rate 35; Glucose Random 92 mg/dL (60-115); Potassium 4.7 mmol/L (3.3-5.1); Sodium 141 mmol/L (135-145); Total Protein 7.5 g/dL (6.5-8.0)
[2022-05-23 17:56] LABS: B Type Natriuretic Peptide 75 pg/mL (<100)
== END 2022-05-23 17:09 | disposition home or self-care (01) ==
LOC: HO.LAB 17:08
PROVIDERS: PCP General Practice; Visit Provider Nurse Practitioner Family
DX: I50.30 Unspecified diastolic (congestive) heart failure (principal); D64.9 Anemia, unspecified
CPT/HCPCS: 36415; 80053; 83880; 85025

== ENCOUNTER 2022-05-25 16:56 | Emergency (ER) | payer OTHER, SELFPAY ==
--- NOTE | ~2022-05-25 | US_ITS ---
EXAMINATION: US ABDOMEN LIMITED CLINICAL INFORMATION: Right upper quadrant pain. COMPARISON: CT abdomen 04/27/2019 TECHNIQUE: Real-time imaging of the right upper quadrant abdominal viscera. FINDINGS: PANCREAS: Heterogeneous echotexture of the pancreas, nonspecific. No marginated lesion is identified. No pancreatic ductal dilatation is seen. LIVER: Normal. The liver is normal in size. The liver contour is normal. Parenchymal echogenicity is normal. No focal hepatic lesion. There is no intrahepatic biliary duct dilatation seen. GALLBLADDER: Gallbladder is partially distended. No shadowing gallstones are seen. The gallbladder wall appears thickened measuring up to approximately 6 mm. No significant pericholecystic fluid. Voice Network Engineer reports no tenderness in the area of the gallbladder. COMMON BILE DUCT: Normal in caliber measuring 0.4 cm in diameter. RIGHT KIDNEY: Normal. No hydronephrosis. No renal calculi or focal parenchymal lesions. The kidney measures 11.2 cm in maximum dimension. FREE FLUID: None. US/US abdomen limited IMPRESSION: *Partially distended gallbladder. Gallbladder wall thickening measuring 6 mm. No shadowing gallstones. No pericholecystic fluid. No tenderness in the gallbladder. Findings are nonspecific. Etiology of the gallbladder wall thickening has not been determined . Recommend close clinical correlation and management.. Further evaluation with HIDA scan as clinically warranted. *Pancreas demonstrates heterogeneous echotexture, nonspecific. Correlate with blood work. Further evaluation CT scan as warranted.
--- NOTE | 2022-05-25 17:15 | ED.GENADULT ---
HPI - General Adult General Chief complaint: Nausea/Vomiting/Diarrhea <JERMAINE Marx - Last Filed: 05/25/22 17:18> Stated complaint: Abdominal pain <JERMAINE Marx - Last Filed: 05/25/22 17:18> Time Seen by Provider: 05/25/22 18:33 <JERMAINE Marx - Last Filed: 05/25/22 17:18> Source: patient and RN notes reviewed <Yuri Castañeda - Last Filed: 05/25/22 19:28> Mode of arrival: ambulatory <Yuri Castañeda - Last Filed: 05/25/22 19:28> Limitations: no limitations <Yuri Castañeda - Last Filed: 05/25/22 19:28> History of Present Illness HPI narrative: 67-year-old male past medical history significant for peripheral artery disease, chronic anemia, left BKA, heart failure, hypertension, diabetes, chronic kidney disease, hyperlipidemia who presents for evaluation of abdominal pain. Patient reports around 1:00 p.m. he ate a meal that included a banana and beef. He reports about 45 minutes later he had some upper abdominal pain and vomited 3 times. He also had 1 episode of diarrhea which he describes as nonbloody. Of note, at the time of my evaluation the patient reports his symptoms have completely resolved. He has no pain, nausea or diarrhea. Denies any sick contacts Denies any fevers, chills <Yuri Castañeda - Last Filed: 05/25/22 19:28> Related Data Home medications: Home Medications Medication Instructions Recorded Confirmed atorvastatin 80 mg tablet 80 mg PO DAILY 04/27/21 04/12/22 fluticasone propionate 50 2 spray intranasal QAM PRN Nasal 04/27/21 04/12/22 mcg/actuation nasal Congestion spray,suspension metformin 1,000 mg tablet 1,000 mg PO BID 04/27/21 04/12/22 sertraline 50 mg tablet 50 mg PO DAILY 04/27/21 04/12/22 sitagliptin phosphate 100 mg 100 mg PO DAILY 04/27/21 04/12/22 tablet (Januvia) insulin degludec 100 unit/mL (3 25 unit subcut QPM 01/03/22 04/12/22 mL) subcutaneous pen (Tresiba FlexTouch U-100 insulin) gabapentin 100 mg capsule 100 mg PO TID 04/12/22 Previous Rx's Medication Instructions Recorded tamsulosin 0.4 mg capsule 0.4 mg PO BEDTIME #30 caps 05/09/20 amlodipine 10 mg tablet 10 mg PO DAILY@1700 30 days #30 01/29/22 tabs docusate sodium 100 mg capsule 100 mg PO BEDTIME #30 caps 02/13/22 glipizide 10 mg tablet 10 mg PO BIDWM #60 tabs 03/30/22 oxycodone 5 mg tablet 5 mg PO Q6H PRN pain #10 tabs 03/30/22 hydralazine 50 mg tablet 50 mg PO TID #90 tabs 04/12/22 losartan 50 mg tablet 100 mg PO QAM #60 tabs 04/12/22 furosemide 40 mg tablet 40 mg PO BID #60 tabs 04/13/22 isosorbide mononitrate 60 mg 60 mg PO DAILY #30 tabs 04/13/22 tablet,extended release 24 hr metoprolol succinate 100 mg 100 mg PO DAILY 30 days #30 tabs 04/13/22 tablet,extended release 24 hr spironolactone 25 mg tablet 25 mg PO DAILY #30 tabs 04/13/22 <JERMAINE Marx - Last Filed: 05/25/22 17:18> Allergies/adverse reactions: Allergies Allergy/AdvReac Type Severity Reaction Status Date / Time No Known Allergies Allergy Verified 05/25/22 17:16 [No Known Allergies*] <JERMAINE Marx - Last Filed: 05/25/22 17:18> Review of Systems Constitutional: Constitutional: Reports as per HPI, Denies chills, Denies fatigue, Denies fever(s) and Denies headache(s) <Yuri Castañeda - Last Filed: 05/25/22 19:28> ENT: Denies headache(s) <Yuri Castañeda - Last Filed: 05/25/22 19:28> Cardiovascular: Cardiovascular: Denies chest pain and Denies dyspnea <Yuri Castañeda - Last Filed: 05/25/22 19:28> Respiratory: Respiratory: Denies cough and Denies dyspnea <Yuir Castañeda - Last Filed: 05/25/22 19:28> Gastrointestinal: Gastrointestinal: Reports abdominal pain, Denies constipation and Reports vomiting <Yuri Castañeda - Last Filed: 05/25/22 19:28> Genitourinary: Genitourinary: Denies difficulty urinating and Denies dysuria <Yuri Castañeda - Last Filed: 05/25/22 19:28> Neurologic: Denies headache(s) and Denies focal weakness <Yuri Castañeda - Last Filed: 05/25/22 19:28> Endocrine: Endocrine: Denies fatigue <Yuri Castañeda - Last Filed: 05/25/22 19:28> [facility] Past Medical History Medical History: Medical History (Updated 05/25/22 @ 19:28 by Yuir Castañeda) Diabetes High cholesterol HTN (hypertension) Hyperlipidemia associated with type 2 diabetes mellitus Kidney disease PAD (peripheral artery disease) Type 2 diabetes mellitus <JERMAINE Marx - Last Filed: 05/25/22 17:18> Surgical History: Surgical History H/O shoulder surgery History of amputation of right forefoot Hx of amputation Status post transmetatarsal amputation of left foot <JERMAINE Marx - Last Filed: 05/25/22 17:18> Family History Family History: Family History Other No family history of coronary artery disease <JERMAINE Marx - Last Filed: 05/25/22 17:18> Social History Social History: Social History Household Members: None Housing: Apartment Do you presently have visiting nurse or other home services: Yes Alcohol intake: never Patient Tobacco Use Status: Former Tobacco user Quit Date: >20yr ago Tobacco use type: Cigarette Smoked in Last 30 Days: No Use of substances other than those prescribed or required for medical reasons: No Substance Use Type: Crack/Cocaine Advance Directives: Yes Advance Directives on File: Yes Advance Directives Date on File: 02/02/22 service: No Current occupational status: retired <JERMAINE Marx - Last Filed: 05/25/22 17:18> Physical Exam ED Vital Signs: Vital Signs - 24 hr 05/25/22 17:16 05/25/22 18:08 Temperature 97.8 F 98 F Pulse Rate 80 80 Respiratory Rate 16 20 Blood Pressure 181/64 H 172/64 H Pulse Oximetry 98 97 Oxygen Delivery Method Room Air Room Air BMI result Body Mass Index 26.6 <JERMAINE Marx - Last Filed: 05/25/22 17:18> Vital Signs - 24 hr 05/25/22 17:16 05/25/22 18:08 Temperature 97.8 F 98 F Pulse Rate 80 80 Respiratory Rate 16 20 Blood Pressure 181/64 H 172/64 H Pulse Oximetry 98 97 Oxygen Delivery Method Room Air Room Air BMI result Body Mass Index 26.6 <Yuri KincaidBennie - Last Filed: 05/25/22 19:28> Const General: healthy appearing, comfortable, no acute distress, alert and awake <Yuri O - Last Filed: 05/25/22 19:28> Nutritional Appearance: well nourished <Yuri - Last Filed: 05/25/22 19:28> Orientation/consciousness: patient oriented x3 <Yuri - Last Filed: 05/25/22 19:28> HENMT Head: Yes normocephalic and Yes atraumatic < - Last Filed: 05/25/22 19:28> Throat: Yes posterior oropharynx normal <Yuri - Last Filed: 05/25/22 19:28> Eyes Eyelids: Yes eyelids normal <Yuri O - Last Filed: 05/25/22 19:28> Conjunctivae: conjunctivae normal <Yuri - Last Filed: 05/25/22 19:28> Sclerae: sclerae normal < - Last Filed: 05/25/22 19:28> Corneas: corneas normal < - Last Filed: 05/25/22 19:28> Pupils: Equal, round and reactive pupils present <Yuri O - Last Filed: 05/25/22 19:28> EOM: EOMs intact bilaterally <Yuri Codi - Last Filed: 05/25/22 19:28> Neck Neck: Yes full ROM <Yuri Last Filed: 05/25/22 19:28> Resp Effort & Inspection: normal respiratory effort, able to speak in complete sentences, no audible wheezes and not labored <Yuri Last Filed: 05/25/22 19:28> Auscultation: clear to auscultation bilaterally < - Last Filed: 05/25/22 19:28> Cardio Rate: regular rate < Last Filed: 05/25/22 19:28> Rhythm: regular rhythm < Last Filed: 05/25/22 19:28> GI Inspection: No distended < Last Filed: 05/25/22 19:28> Palpation (GI): Soft to palpation, not firm, nontender, no guarding and not rigid < Last Filed: 05/25/22 19:28> Auscultation: normoactive bowel sounds <Yuri Last Filed: 05/25/22 19:28> Skin General skin exam: no rashes or lesions noted and elasticity normal <Yuri Last Filed: 05/25/22 19:28> Neuro General: patient oriented x3 <Yuri Last Filed: 05/25/22 19:28> Cranial nerves: Yes CN's II-XII intact bilaterally, Yes Equal, round and reactive pupils present and Yes Bilaterally intact EOM present <Yuri Last Filed: 05/25/22 19:28> Cognition (Neuro): normal cognition <Yuri O Last Filed: 05/25/22 19:28> Extrem Other: Left BKA, otherwise moving all extremities well <Yuri O Last Filed: 05/25/22 19:28> Course Course Course Narrative: RME performed by Kaya Jenkins PA-C. Patient is a 67 year old male presenting to the emergency department with nausea and vomiting with RUQ abdominal pain. Patient states that he still has his gallbladder. Labs and US ordered. Patient placed back in the waiting room pending results and room availaiblity. <JERMAINE Marx - Last Filed: 05/25/22 17:18> Reevaluation(s) Reevaluation #1: Patient remains asymptomatic, has no abdominal pain or tenderness. Ultrasound discussed with him. It did show nonspecific gallbladder wall thickening but no evidence of pericholecystic fluid, no gallstones noted. <Yuri Castañeda - Last Filed: 05/25/22 19:28> Time: 19: <Yuri Castañeda - Last Filed: 05/25/22 19:28> Medical Decision Making Medical Decision Making MDM Narrative: Patient presents for evaluation of abdominal pain with vomiting and diarrhea. This time my evaluation he is currently asymptomatic. He has no leukocytosis, he has chronic anemia but is hemoglobin and hematocrit is actually slightly above his baseline. Patient has a mild KEYA which is consistent to his visit from 2 days ago. Patient has an ultrasound the gallbladder pending that was ordered in triage. Although he is currently asymptomatic, no intervention at this time. I asked the patient to let me know if his pain returns or significant nausea or diarrhea. The patient's ultrasound does not show evidence of cholecystitis he can be safely discharged. <Yuri Castañeda - Last Filed: 05/25/22 19:28> Differential Diagnosis Peptic ulcer disease GERD Gastroenteritis Biliary colic Pancreatitis Cholecystitis <Yuri Castañeda - Last Filed: 05/25/22 19:28> Lab Data MDM Lab Attestation statement: I reviewed the patient's lab results. <Yuri Castañeda - Last Filed: 05/25/22 19:28> Result Diagrams: 05/25/22 17:30 05/25/22 17:30 <JERMAINE Marx - Last Filed: 05/25/22 17:18> Labs: Lab Results 05/25/22 05/25/22 05/25/22 Range/Units 17:30 17:30 17:30 WBC 8.3 (4.8-10.8) X10*3/uL RBC 3.29 L (4.60-5.80) X10*6/uL Hgb 10.1 L (14.0-18.0) g/dl Hct 29.9 L (42.0-52.0) % MCV 90.9 (80.0-98.0) fL MCH 30.7 (27.0-33.0) pg MCHC 33.8 (31.0-36.0) g/dl RDW 13.7 (11.0-16.0) % Plt Count 273 (160-400) X10*3/uL MPV 9.7 (9.4-12.4) fL Immature Gran % (Auto) 0.2 (0.0-0.4) % Neut % (Auto) 77.6 H (45-73) % Lymph % (Auto) 10.7 L (20-40) % Leslie % (Auto) 10.0 (2-11) % Eos % (Auto) 0.8 (0-4) % Baso % (Auto) 0.7 (0-2) % Lymph # (Auto) 0.9 L (1.2-4.9) X10*3/uL Leslie # (Auto) 0.8 (0.1-1.2) X10*3/uL Eos # (Auto) 0.1 (0.0-0.4) X10*3/uL Baso # (Auto) 0.1 (0.0-0.2) X10*3/uL Abs Immat Gran (auto) 0.02 (0.00-0.03) X10*3/uL Absolute Neuts (auto) 6.5 (2.0-8.3) x10*3/uL Absolute Nucleated RBC 0.000 (0.0-0.012) X10*3/uL Nucleated RBC % (auto) 0.0 (0.0-0.2) /100WBC Sodium 139 (135-145) mmol/L Potassium 5.1 (3.3-5.1) mmol/L Chloride 106 (96-108) mmol/L Carbon Dioxide 26 (22-29) mmol/L Anion Gap 12 (12-20) BUN 48 H (9-16) mg/dL Creatinine 1.98 H (0.5-1.4) mg/dL Estim Creat Clear Calc 36.2 Estimated GFR 34 Random Glucose 325 H (60-115) mg/dL Calcium 9.2 (8.4-10.2) mg/dL Magnesium 1.6 (1.6-2.6) mg/dL Total Bilirubin 0.2 (0.0-1.0) mg/dL AST 21 (5-37) U/L ALT 27 (0-40) U/L Alkaline Phosphatase 93 (39-117) U/L Total Protein 7.0 (6.5-8.0) g/dL Albumin 3.7 (3.5-5.0) g/dL Lipase 48 (8-78) U/L COVID-19 (YANELIS) Negative (Negative) COVID-19 Clin Com See Note <JERMAINE Marx - Last Filed: 05/25/22 17:18> Lab Results 05/25/22 05/25/22 05/25/22 Range/Units 17:30 17:30 17:30 WBC 8.3 (4.8-10.8) X10*3/uL RBC 3.29 L (4.60-5.80) X10*6/uL Hgb 10.1 L (14.0-18.0) g/dl Hct 29.9 L (42.0-52.0) % MCV 90.9 (80.0-98.0) fL MCH 30.7 (27.0-33.0) pg MCHC 33.8 (31.0-36.0) g/dl RDW 13.7 (11.0-16.0) % Plt Count 273 (160-400) X10*3/uL MPV 9.7 (9.4-12.4) fL Immature Gran % (Auto) 0.2 (0.0-0.4) % Neut % (Auto) 77.6 H (45-73) % Lymph % (Auto) 10.7 L (20-40) % Leslie % (Auto) 10.0 (2-11) % Eos % (Auto) 0.8 (0-4) % Baso % (Auto) 0.7 (0-2) % Lymph # (Auto) 0.9 L (1.2-4.9) X10*3/uL Leslie # (Auto) 0.8 (0.1-1.2) X10*3/uL Eos # (Auto) 0.1 (0.0-0.4) X10*3/uL Baso # (Auto) 0.1 (0.0-0.2) X10*3/uL Abs Immat Gran (auto) 0.02 (0.00-0.03) X10*3/uL Absolute Neuts (auto) 6.5 (2.0-8.3) x10*3/uL Absolute Nucleated RBC 0.000 (0.0-0.012) X10*3/uL Nucleated RBC % (auto) 0.0 (0.0-0.2) /100WBC Sodium 139 (135-145) mmol/L Potassium 5.1 (3.3-5.1) mmol/L Chloride 106 (96-108) mmol/L Carbon Dioxide 26 (22-29) mmol/L Anion Gap 12 (12-20) BUN 48 H (9-16) mg/dL Creatinine 1.98 H (0.5-1.4) mg/dL Estim Creat Clear Calc 36.2 Estimated GFR 34 Random Glucose 325 H (60-115) mg/dL Calcium 9.2 (8.4-10.2) mg/dL Magnesium 1.6 (1.6-2.6) mg/dL Total Bilirubin 0.2 (0.0-1.0) mg/dL AST 21 (5-37) U/L ALT 27 (0-40) U/L Alkaline Phosphatase 93 (39-117) U/L Total Protein 7.0 (6.5-8.0) g/dL Albumin 3.7 (3.5-5.0) g/dL Lipase 48 (8-78) U/L COVID-19 (YANELIS) Negative (Negative) COVID-19 Clin Com See Note <Yuri Castañeda - Last Filed: 05/25/22 19:28> Radiology Impression Discussion of test interpretation with radiology: I have reviewed the radiologist's reading. (Nonspecific gallbladder wall thickening without evidence of cholecystitis) <Yuri Castañeda - Last Filed: 05/25/22 19:28> Discharge Plan Discharge Clinical Impression: Abdominal pain <JERMAINE Marx - Last Filed: 05/25/22 17:18> Patient Disposition: Home, Self-Care <JERMAINE Marx - Last Filed: 05/25/22 17:18> Instructions: Abdominal Pain (ED) <JERMAINE Marx - Last Filed: 05/25/22 17:18> Additional Instructions: Your blood test were within normal limits today. Your ultrasound showed nonspecific gallbladder wall thickening but no evidence of infection Return for any new or worsening pain or if you develop any fevers <JERMAINE Marx Last Filed: 05/25/22 17:18> Prescriptions: No Action tamsulosin 0.4 mg capsule 0.4 mg PO BEDTIME Qty: 30 2RF gabapentin 100 mg capsule 100 mg PO TID hydralazine 50 mg tablet 50 mg PO TID Qty: 90 0RF Protocol: Hold for SBP< HOLD for SBP < : 90 losartan 50 mg tablet 100 mg PO QAM Qty: 60 0RF furosemide 40 mg tablet 40 mg PO BID Qty: 60 5RF metoprolol succinate 100 mg tablet extended release 24 hr 100 mg PO DAILY 30 Days Qty: 30 5RF spironolactone 25 mg tablet 25 mg PO DAILY Qty: 30 5RF Protocol: Hold for SBP< HOLD for SBP < : 90 isosorbide mononitrate 60 mg tablet extended release 24 hr 60 mg PO DAILY Qty: 30 5RF Protocol: Hold for SBP< HOLD for SBP < : 90 oxycodone 5 mg tablet 5 mg PO Q6H PRN (Reason: pain) Qty: 10 0RF Rx Instructions: Partial Fill upon patient request. glipizide 10 mg Tablet 10 mg PO BIDWM Qty: 60 0RF insulin degludec [Tresiba FlexTouch U-100] 100 unit/mL (3 mL) insulin pen 25 unit subcut QPM amlodipine 10 mg Tablet 10 mg PO DAILY@1700 30 Days Qty: 30 0RF Protocol: Hold for SBP< HOLD for SBP < : 90 docusate sodium 100 mg Capsule 100 mg PO BEDTIME Qty: 30 0RF Januvia 100 mg tablet 100 mg PO DAILY sertraline 50 mg tablet 50 mg PO DAILY fluticasone propionate 50 mcg/actuation spray,suspension 2 spray intranasal QAM PRN (Reason: Nasal Congestion) metformin 1,000 mg tablet 1,000 mg PO BID atorvastatin 80 mg tablet 80 mg PO DAILY <JERMAINE Marx Last Filed: 05/25/22 17:18>
[2022-05-25 17:16] VITALS: BP 181/64; PULSE 80; RESP 16; TEMP 36.6; O2SAT 98; BMI 26.6
[2022-05-25 17:40] LABS: MANUAL DIFF FLAG NO
[2022-05-25 17:41] LABS: Basophils Absolute Auto 0.1 X10*3/uL (0.0-0.2); Basophils Percent Auto 0.7 % (0-2); Eosinophils Absolute Auto 0.1 X10*3/uL (0.0-0.4); Eosinophils Percent Auto 0.8 % (0-4); Hematocrit 29.9 % (42.0-52.0); Hemoglobin 10.1 g/dl (14.0-18.0); Imm Gran Abs Auto 0.02 X10*3/uL (0.00-0.03); Imm Gran Pct Auto 0.2 % (0.0-0.4); Lymphocytes Absolute Auto 0.9 X10*3/uL (1.2-4.9); Lymphocytes Percent Auto 10.7 % (20-40); Mean Corpuscular HGB Conc 33.8 g/dl (31.0-36.0); Mean Corpuscular Hemoglobin 30.7 pg (27.0-33.0); Mean Corpuscular Volume 90.9 fL (80.0-98.0); Mean Platelet Volume 9.7 fL (9.4-12.4); Monocytes Absolute Auto 0.8 X10*3/uL (0.1-1.2); Neutrophils Absolute Auto 6.5 x10*3/uL (2.0-8.3); Neutrophils Percent Auto 77.6 % (45-73); Platelet Count 273 X10*3/uL (160-400); Red Blood Count 3.29 X10*6/uL (4.60-5.80); Red Cell Distribution Width 13.7 % (11.0-16.0); White Blood Count 8.3 X10*3/uL (4.8-10.8)
[2022-05-25 17:59] LABS: Alanine Aminotransferase 27 U/L (0-40); Albumin Level 3.7 g/dL (3.5-5.0); Alkaline Phosphatase 93 U/L (39-117); Anion Gap 12 (12-20); Aspartate Amino Transferase 21 U/L (5-37); Bilirubin Total 0.2 mg/dL (0.0-1.0); Blood Urea Nitrogen 48 mg/dL (9-16); COVID-19 Test Negative (Negative); Calcium 9.2 mg/dL (8.4-10.2); Carbon Dioxide 26 mmol/L (22-29); Chloride 106 mmol/L (96-108); Creatinine Clr Calc Pharmacy 36.2; Estimated Glomerular Filt Rate 34; Glucose Random 325 mg/dL (60-115); IDNOW Serial# 08D9AD1C; Lipase 48 U/L (8-78); Magnesium 1.6 mg/dL (1.6-2.6); Potassium 5.1 mmol/L (3.3-5.1); Sodium 139 mmol/L (135-145)
[2022-05-25 18:08] VITALS: BP 172/64; PULSE 80; RESP 20; TEMP 36.6; O2SAT 97
== END 2022-05-25 20:06 | disposition home or self-care (01) ==
PROVIDERS: Physician Assistant Medical; Emergency Provider Emergency Medicine; PCP General Practice
DX: R10.11 Right upper quadrant pain (principal); R11.2 Nausea with vomiting, unspecified; Z20.822 Contact with and (suspected) exposure to COVID-19; Z20.828 Contact with and (suspected) exposure to other viral communicable diseases; Z87.891 Personal history of nicotine dependence; Z79.899 Other long term (current) drug therapy
CPT/HCPCS: 76705; 80053; 83690; 83735; 85025; 87635; 99284

== ENCOUNTER 2022-07-11 11:51 | Outpatient (REF) | payer OTHER, SELFPAY ==
--- NOTE | ~2022-07-11 | US_ITS ---
EXAMINATION: Noninvasive assessment of the right lower extremities with ARTERIAL DUPLEX and ANKLE BRACHIAL INDICES (ABIs). CLINICAL INFORMATION: Peripheral vascular disease. History of left lower extremity amputation TECHNIQUE: Duplex Doppler techniques with waveform analysis and measurement of velocities in the right common femoral, profunda femoris, superficial femoral, popliteal and tibial arteries were performed. Additionally, ankle pulse volume recordings, ankle pressure measurements and ankle brachial indices were obtained of the lower extremity arterial system on the right. The study was performed only at rest. COMPARISON: Duplex evaluation from 04/24/2021 FINDINGS: DIRECT DUPLEX DOPPLER FINDINGS: RIGHT LEG: Diffuse, extensive atherosclerotic wall calcifications in the medial calcinosis seen throughout the arterial vessels Common femoral artery: 186 cm/s, phasicity: Triphasic Profunda femoris artery: 409 cm/s, phasicity: Biphasic Superficial femoral artery (proximal): 397 cm/s at the ostium with associated calcified plaque, phasicity: Triphasic Superficial femoral artery (mid): 154 cm/s, phasicity: Triphasic Superficial femoral artery (distal): 137 cm/s, phasicity: Triphasic Popliteal artery: 103 cm/s, phasicity: Triphasic Posterior tibial artery: 21.8 cm/s, phasicity: Monophasic Peroneal artery: Not visualized ANKLE-BRACHIAL INDEX: Right: 1.38? ANKLE PRESSURES: Right: PT 106, DP 205 ANKLE PVR WAVEFORMS: Right: Abnormal US/US arterial duplex LE RT IMPRESSION: Supranormal ankle-brachial index consistent with calcified arterial vessels. Elevated velocities are seen within the common femoral and proximal superficial femoral arteries consistent with underlying stenosis. Patent flow seen in the superficial femoral artery and popliteal artery. Dampened waveforms seen in the posterior tibial artery with monophasic waveforms and absent waveform in the peroneal artery consistent with small vessel occlusive disease. LES Reference: - >1.4 = calcified vessels - 0.9 - 1.4 = normal - no significant arterial disease - 0.7 - 0.89 = mild peripheral arterial disease - 0.51 - 0.69 = moderate peripheral arterial disease - ? 0.50 = severe peripheral arterial disease - < .30 = critical arterial disease
== END 2022-07-11 11:52 | disposition home or self-care (01) ==
LOC: HO.US 11:51
PROVIDERS: PCP General Practice; Visit Provider Surgery Vascular Surgery
DX: I70.211 Atherosclerosis of native arteries of extremities with intermittent claudication, right leg (principal)
CPT/HCPCS: 93923; 93926

== ENCOUNTER → 2022-07-17 12:54 | Outpatient (BNVA) | payer OTHER, SELFPAY | PROVIDERS: PCP General Practice; Visit Provider Surgery Vascular Surgery | DX: I73.9 Peripheral vascular disease, unspecified (principal); T87.81 Dehiscence of amputation stump; F14.20 Cocaine dependence, uncomplicated; Z89.512 Acquired absence of left leg below knee; Z89.431 Acquired absence of right foot | CPT/HCPCS: 99212 ==

== ENCOUNTER → 2022-08-07 14:05 | Outpatient (BNVA) | payer OTHER, SELFPAY | PROVIDERS: PCP General Practice; Visit Provider Surgery Vascular Surgery | DX: I73.9 Peripheral vascular disease, unspecified (principal); Z89.512 Acquired absence of left leg below knee | CPT/HCPCS: 99212 ==

== ENCOUNTER 2022-08-15 09:50 | Outpatient (REF) | payer OTHER, SELFPAY ==
[2022-08-15 10:26] LABS: MANUAL DIFF FLAG NO
[2022-08-15 10:46] LABS: Basophils Absolute Auto 0.1 X10*3/uL (0.0-0.2); Basophils Percent Auto 0.7 % (0-2); Eosinophils Absolute Auto 0.2 X10*3/uL (0.0-0.4); Eosinophils Percent Auto 1.9 % (0-4); Hematocrit 29.2 % (42.0-52.0); Hemoglobin 9.9 g/dl (14.0-18.0); Imm Gran Abs Auto 0.04 X10*3/uL (0.00-0.03); Imm Gran Pct Auto 0.5 % (0.0-0.4); Lymphocytes Absolute Auto 1.1 X10*3/uL (1.2-4.9); Lymphocytes Percent Auto 13.2 % (20-40); Mean Corpuscular HGB Conc 33.9 g/dl (31.0-36.0); Mean Corpuscular Hemoglobin 32.1 pg (27.0-33.0); Mean Corpuscular Volume 94.8 fL (80.0-98.0); Mean Platelet Volume 10.1 fL (9.4-12.4); Monocytes Absolute Auto 0.7 X10*3/uL (0.1-1.2); Monocytes Percent Auto 8.5 % (2-11); Neutrophils Absolute Auto 6.5 x10*3/uL (2.0-8.3); Neutrophils Percent Auto 75.2 % (45-73); Platelet Count 239 X10*3/uL (160-400); Red Blood Count 3.08 X10*6/uL (4.60-5.80); Red Cell Distribution Width 11.9 % (11.0-16.0); White Blood Count 8.6 X10*3/uL (4.8-10.8)
[2022-08-15 11:46] LABS: Albumin Level 3.4 g/dL (3.5-5.0); Blood Urea Nitrogen 58 mg/dL (9-16); Calcium 9.2 mg/dL (8.4-10.2); Estimated Glomerular Filt Rate 21; Magnesium 1.5 mg/dL (1.6-2.6); Phosphorus 3.7 mg/dL (2.7-4.5); Vitamin D 25-OH Total 24.6 ng/mL (>30)
[2022-08-15 11:50] LABS: Appearance Urine Clear; Color Urine Yellow; Glucose Urine UA Negative (Negative); Leukocyte Esterase Urine Negative (Negative); Nitrite Urine Negative (Negative); Specific Gravity - Urine 1.015 (1.005-1.025); UMIC TRIGGER UA YES; Urine Blood Negative (Negative); Urine Ketones Negative (Negative); Urine Protein 300 (3+) mg/dL (Neg-Trace)
[2022-08-15 11:55] LABS: Bacteria Urine None Seen (None Seen); Hyaline Casts Urine 0-2 /LPF (0-2); RBC Urine 0-2 /HPF (0-2); Squamous Epithelial Cell Urine 0-2 /HPF (0-2); WBC Urine 0-5 /HPF (0-5)
[2022-08-15 12:30] LABS: Creatinine Urine 97.59 mg/dL; Protein/Creatinine Ratio, Ur 1.82 (<0.2); Total Protein Urine Random 178 mg/dL (<12)
[2022-08-15 12:38] LABS: Microalbum/Creatinine Ratio Ur 1295.2 ug/mg cr
[2022-08-15 13:39] LABS: Anion Gap 15 (12-20); Carbon Dioxide 24 mmol/L (22-29); Chloride 105 mmol/L (96-108); Potassium 6.1 mmol/L (3.3-5.1); Sodium 138 mmol/L (135-145)
[2022-08-16 22:24] LABS: Calcium (PTHI) 9.4 mg/dL (8.6-10.3); PTHI 118 pg/mL (16-77)
== END 2022-08-15 09:51 | disposition home or self-care (01) ==
LOC: HO.LAB 09:50
PROVIDERS: PCP General Practice; Visit Provider Internal Medicine Nephrology
DX: N25.0 Renal osteodystrophy (principal); E11.22 Type 2 diabetes mellitus with diabetic chronic kidney disease; N18.31 Chronic kidney disease, stage 3a; R82.90 Unspecified abnormal findings in urine
CPT/HCPCS: 36415; 80051; 81001; 82040; 82043; 82306; 82310; 82565; 83735; 83970; 84100; 84156; 84520; 85025; 87086

== ENCOUNTER 2022-08-16 10:27 | Emergency (ER) | payer OTHER, SELFPAY ==
--- NOTE | ~2022-08-16 | US_ITS ---
EXAMINATION: US ABDOMEN LIMITED CLINICAL INFORMATION: Right upper quadrant pain gallbladder,. COMPARISON: Chest and abdomen from 05/25/2022 TECHNIQUE: Real-time imaging of the right upper quadrant abdominal viscera. FINDINGS: GALLBLADDER: Normal. The gallbladder is physiologically distended without evidence of stones, sludge, polyps, wall thickening or pericholecystic fluid. COMMON BILE DUCT: Normal in caliber measuring 0.3 cm in diameter. US/US abdomen limited IMPRESSION: Unremarkable right upper quadrant ultrasound.
[2022-08-16 10:38] VITALS: BP 165/63; PULSE 62; RESP 18; TEMP 36.5; O2SAT 99; BMI 26.6
--- NOTE | 2022-08-16 10:58 | ED_ITS ---
HPI - General Adult General Chief complaint: Abdominal Pain Stated complaint: R abd pain Time Seen by Provider: 08/16/22 10:58 Source: patient Mode of arrival: wheelchair Limitations: no limitations History of Present Illness HPI narrative: Patient is a 67 year old assigned male at with a history of left below knee amputation, diabetes, kidney disease, and HTN presenting to the emergency department today with right sided abdominal pain. Patient states that over the last 3 days he has had right upper quadrant pain. Patient states that he was evaluated for something similar before and they told him to follow up for a HYDA scan however, he did not. Patient denies any dizziness, lightheadedness, nausea, vomiting, fever, chills, blurry vision, double vision, loss of vision, chest pain, difficulty breathing, shortness of breath, back pain, night sweats, pain with urination, increased urinary frequency, increased urinary urgency, blood in his urine or stool, syncope or a near syncopal episode, recent trauma or falls, bowel incontinence, bladder incontinence, bowel retention, bladder retention, or any other complaints at this time. Onset (ago): day(s) (3) Location: abdomen and right Radiation: non-radiation Severity: mild Severity scale (1-10): 4 Quality: aching and dull Pain Consistency: constant Relieving factors: none Exacerbating factors: none Associated symptoms: denies other symptoms Treatments prior to arrival: none Related Data Home Medications Medication Instructions Recorded Confirmed atorvastatin 80 mg tablet 80 mg PO DAILY 04/27/21 04/12/22 fluticasone propionate 50 2 spray intranasal QAM PRN Nasal 04/27/21 04/12/22 mcg/actuation nasal Congestion spray,suspension metformin 1,000 mg tablet 1,000 mg PO BID 04/27/21 04/12/22 sertraline 50 mg tablet 50 mg PO DAILY 04/27/21 04/12/22 sitagliptin phosphate 100 mg 100 mg PO DAILY 04/27/21 04/12/22 tablet (Januvia) insulin degludec 100 unit/mL (3 25 unit subcut QPM 01/03/22 04/12/22 mL) subcutaneous pen (Tresiba FlexTouch U-100 insulin) gabapentin 100 mg capsule 100 mg PO TID 04/12/22 cyclobenzaprine 5 mg tablet 5 mg PO BEDTIME 07/17/22 nabumetone 500 mg tablet 500 mg PO BID 07/17/22 Previous Rx's Medication Instructions Recorded tamsulosin 0.4 mg capsule 0.4 mg PO BEDTIME #30 caps 05/09/20 amlodipine 10 mg tablet 10 mg PO DAILY@1700 30 days #30 01/29/22 tabs docusate sodium 100 mg capsule 100 mg PO BEDTIME #30 caps 02/13/22 glipizide 10 mg tablet 10 mg PO BIDWM #60 tabs 03/30/22 oxycodone 5 mg tablet 5 mg PO Q6H PRN pain #10 tabs 03/30/22 hydralazine 50 mg tablet 50 mg PO TID #90 tabs 04/12/22 losartan 50 mg tablet 100 mg PO QAM #60 tabs 04/12/22 furosemide 40 mg tablet 40 mg PO BID #60 tabs 04/13/22 isosorbide mononitrate 60 mg 60 mg PO DAILY #30 tabs 04/13/22 tablet,extended release 24 hr metoprolol succinate 100 mg 100 mg PO DAILY 30 days #30 tabs 04/13/22 tablet,extended release 24 hr spironolactone 25 mg tablet 25 mg PO DAILY #30 tabs 04/13/22 Allergies Allergy/AdvReac Type Severity Reaction Status Date / Time No Known Allergies Allergy Verified 08/16/22 10:38 [No Known Allergies*] Review of Systems Constitutional: Constitutional: Reports no additional constitutional complaints, Denies chills, Denies fever(s) and Denies night sweats Eyes: Eyes: Reports no additional eye complaints, Denies blurry vision, Denies change in vision, Denies diplopia, Denies eye discharge, Denies loss of vision and Denies eye pain ENT: Denies dizziness Cardiovascular: Cardiovascular: Reports no additional cardiovascular complaints, Denies chest pain, Denies lightheadedness, Denies Loss of Consciousness and Denies dyspnea Respiratory: Respiratory: Reports no additional respiratory complaints and Denies dyspnea Gastrointestinal: Gastrointestinal: Reports no additional gastrointestinal complaints, Reports abdominal pain, Denies melena, Denies hematochezia, Denies change in bowel habits and Denies change in stool character Genitourinary: Genitourinary: Reports no additional male genitourinary complaints, Denies hematuria, Denies oliguria, Denies difficulty urinating, Denies dysuria, Denies urinary frequency, Denies urinary hesitancy, Denies urinary incontinence and Denies urinary urgency Musculoskeletal: Musculoskeletal: Reports no additional musculoskeletal complaints, Denies numbness and Denies tingling Neurologic: Denies dizziness, Denies loss of vision, Denies numbness and Denies tingling Psychiatric: Psychiatric: Reports no additional psychiatric complaints Endocrine: Endocrine: Reports no additional endocrine complaints Hematologic/Lymphatic: Hematologic/Lymphatic: Reports no additional hematologic/lymphatic complaints Allergic/Immunologic: Allergic/Immunologic: Reports no additional allergic/immunologic complaints PMFSH Past Medical History Attestation statement: The following information was validated with the patient. Source: old records reviewed and nursing notes reviewed Medical History Diabetes High cholesterol HTN (hypertension) Hyperlipidemia associated with type 2 diabetes mellitus Kidney disease PAD (peripheral artery disease) Type 2 diabetes mellitus Surgical History H/O shoulder surgery History of amputation of right forefoot Hx of amputation Status post transmetatarsal amputation of left foot Family History Family History Other No family history of coronary artery disease Social History Social History Household Members: None Housing: Apartment Do you presently have visiting nurse or other home services: Yes Alcohol intake: never Patient Tobacco Use Status: Former Tobacco user Quit Date: >20yr ago Tobacco use type: Cigarette Substance Use Type: Crack/Cocaine Advance Directives: Yes Advance Directives on File: Yes Advance Directives Date on File: 02/02/22 service: No Current occupational status: retired Physical Exam ED Vital Signs: Vital Signs - 24 hr 08/16/22 10:38 08/16/22 11:59 Temperature 97.7 F 98 F Pulse Rate 62 63 Respiratory Rate 18 19 Blood Pressure 165/63 H 186/72 H Pulse Oximetry 99 97 Oxygen Delivery Method Room Air Room Air BMI result Body Mass Index 26.6 Const General: cooperative, no acute distress, alert and awake Nutritional Appearance: well nourished Orientation/consciousness: patient oriented x3 Limitations: no limitations HENMT Head: Yes normal to inspection and Yes atraumatic Ears: hearing grossly normal bilaterally and external ears normal General nose exam: Normal external nose present, no nasal discharge noted and no epistaxis Face and sinus: Yes normal facial exam, No abrasion and No laceration Mouth: Normal oral and palatal mucosa present, no drooling and no muffled voice Eyes General: appearance normal, both eyes and all related structures Periorbital: periorbital findings normal Eyelids: Yes eyelids normal Conjunctivae: conjunctivae normal Pupils: Equal, round and reactive pupils present EOM: EOMs intact bilaterally Neck Neck: Yes normal visual inspection, Yes full ROM and Yes no lymphadenopathy Chest Chest palpation & inspection: normal inspection of the chest Resp Effort & Inspection: normal respiratory effort and able to speak in complete sentences GI Inspection: Yes normal to inspection Palpation (GI): Soft to palpation, not firm, nontender, no guarding and not rigid Neuro General: patient oriented x3 Cranial nerves: Yes Equal, round and reactive pupils present Cognition (Neuro): normal cognition Extrem Other: patient has a left BKA Psych Appearance: grossly normal Mental Status: mental status grossly normal Affect: normal affect Attitude: cooperative Thought process: Normal thought process present Thought content: Normal thought content present Insight: Good insight present (Psych) Medical Decision Making Medical Decision Making MDM Narrative: Patient is a 67 year old assigned male at with a history of left below knee amputation, diabetes, kidney disease, and HTN presenting to the emergency department today with right upper quadrant abdominal pain. Patient's physical exam was unremarkable. Patient's blood work was consistent with his chronic b aseline levels including elevated potassium at 5.4, BUN of 43, and potassium of 2.27. Patient's urine showed no acute process. Patient's abdominal US showed no acute process. I consulted with general surgery who recommended the patient follow up outpatient. I explained my physical exam findings as well as all test results to the patient. I answered all questions asked by the patient. Patient was offered pain medication however, he refused, multiple times. I stressed the importance of the patient taking his medication as prescribed. I stressed the importance of the patient following up with his primary care provider and a general surgeon. I stressed the importance of the patient returning to the emergency department immediately if his symptoms were to worsen or if he were to develop any dizziness, shortness of breath, difficulty breathing, chest pain, blurry vision, loss of vision, nausea, vomiting, abdominal pain, fever, chills, back pain, or any other complaints. Patient verbalized agreement and understanding with this treatment plan and discharge. Differential Diagnosis Differential Diagnoses: The differential diagnosis associated with the presentation includes abdominal pain Admission/Observation Consideration of admission/observation: Escalation of care including admission/observation considered Patient would have been admitted to the hospital had his work up had any findings where hospital admission was appropriate. Consult Healthcare Provider Management of the patient was discussed with: Water [employer] (consulted with the general surgeon as noted in the MDM portion of this note.) Lab Data [facility] Lab Attestation statement: I reviewed the patient's lab results. My interpretation of these studies and their corresponding values is that they are grossly normal for the patient's baseline. 08/16/22 11:12 08/16/22 11:12 Labs: Lab Results 08/16/22 08/16/22 08/16/22 Range/Units 11:12 11:12 11:56 WBC 9.8 (4.8-10.8) X10*3/uL RBC 3.00 L (4.60-5.80) X10*6/uL Hgb 9.7 L (14.0-18.0) g/dl Hct 27.6 L (42.0-52.0) % MCV 92.0 (80.0-98.0) fL MCH 32.3 (27.0-33.0) pg MCHC 35.1 (31.0-36.0) g/dl RDW 11.7 (11.0-16.0) % Plt Count 239 (160-400) X10*3/uL MPV 10.1 (9.4-12.4) fL Immature Gran % (Auto) 0.4 (0.0-0.4) % Neut % (Auto) 75.8 H (45-73) % Lymph % (Auto) 12.2 L (20-40) % Powell % (Auto) 10.0 (2-11) % Eos % (Auto) 1.1 (0-4) % Baso % (Auto) 0.5 (0-2) % Lymph # (Auto) 1.2 (1.2-4.9) X10*3/uL Powell # (Auto) 1.0 (0.1-1.2) X10*3/uL Eos # (Auto) 0.1 (0.0-0.4) X10*3/uL Baso # (Auto) 0.1 (0.0-0.2) X10*3/uL Abs Immat Gran (auto) 0.04 H (0.00-0.03) X10*3/uL Absolute Neuts (auto) 7.5 (2.0-8.3) x10*3/uL Absolute Nucleated RBC 0.000 (0.0-0.012) X10*3/uL Nucleated RBC % (auto) 0.0 (0.0-0.2) /100WBC Sodium 134 L (135-145) mmol/L Potassium 5.4 H (3.3-5.1) mmol/L Chloride 106 (96-108) mmol/L Carbon Dioxide 22 (22-29) mmol/L Anion Gap 11 L (12-20) BUN 43 H (9-16) mg/dL Creatinine 2.27 H (0.5-1.4) mg/dL Estim Creat Clear Calc 31.5 Estimated GFR 29 Random Glucose 174 H (60-115) mg/dL Calcium 9.1 (8.4-10.2) mg/dL Total Bilirubin 0.4 (0.0-1.0) mg/dL AST 21 (5-37) U/L ALT 27 (0-40) U/L Alkaline Phosphatase 75 (39-117) U/L Total Protein 6.5 (6.5-8.0) g/dL Albumin 3.4 L (3.5-5.0) g/dL Urine Color Yellow Urine Appearance Clear Urine pH 7.0 (5.0-9.0) Ur Specific [place] <= 1.005 (1.005-1.025) Urine Protein 300 (3+) H (Neg-Trace) mg/dL Urine Glucose (UA) Negative (Negative) mg/dL Urine Ketones Negative (Negative) mg/dL Urine Blood Negative (Negative) Urine Nitrite Negative (Negative) Ur Leukocyte Esterase Negative (Negative) Urine RBC 0-2 (0-2) /HPF Urine WBC 0-5 (0-5) /HPF Ur Squamous Epith Cells 0-2 (0-2) /HPF Urine Bacteria None Seen (None Seen) Hyaline Casts 0-2 (0-2) /LPF Independent Interpretation I performed an independent interpretation of an: Ultrasound Interpretation: My interpretation is in agreement with the radiologist's impression of this imaging study. EXAMINATION: US ABDOMEN LIMITED CLINICAL INFORMATION: Right upper quadrant pain gallbladder,. COMPARISON: Chest and abdomen from 05/25/2022 TECHNIQUE: Real-time imaging of the right upper quadrant abdominal viscera. FINDINGS: GALLBLADDER: Normal. The gallbladder is physiologically distended without evidence of stones, sludge, polyps, wall thickening or pericholecystic fluid. COMMON BILE DUCT: Normal in caliber measuring 0.3 cm in diameter. US/US abdomen limited IMPRESSION: Unremarkable right upper quadrant ultrasound. Dictated By: Bindu Paris MD Signed By: Electronically signed by Bindu Paris MD 08/16/22 132 Critical Care Time Critical Care Time Critical Care Time: Yes Total Critical Care Time: 30 Attestation: I spent 30 minutes of Critical Care Time with this patient. This does not include time spent on separately reported billable procedures. Discharge Plan Discharge Clinical Impression: Abdominal pain Patient Disposition: Home, Self-Care Instructions: Abdominal Pain (ED) Additional Instructions: Follow up with your primary care provider and a general surgeon to discuss getting a HYDA scan scheduled. Return to the emergency department immediately if your symptoms worsen or if you develop any dizziness, shortness of breath, difficulty breathing, chest pain, blurry vision, loss of vision, nausea, vomiting, abdominal pain, fever, chills, back pain, or any other complaints. Sree un seguimiento con chavarria proveedor de atenci?n primaria y un cirujano general para hablar sobre la programaci?n de bryan exploraci?n HYDA. Regrese al departamento de emergencias de inmediato si jaguar s?ntomas empeoran o si presenta mareos, falta de aire, dificultad para respirar, dolor de pecho, visi?n borrosa, p?rdida de la visi?n, n?useas, v?mitos, dolor abdominal, fiebre, escalofr?os, dolor de espalda o cualquier otras quejas. Prescriptions: No Action tamsulosin 0.4 mg capsule 0.4 mg PO BEDTIME Qty: 30 2RF gabapentin 100 mg capsule 100 mg PO TID hydralazine 50 mg tablet 50 mg PO TID Qty: 90 0RF Protocol: Hold for SBP< HOLD for SBP < : 90 losartan 50 mg tablet 100 mg PO QAM Qty: 60 0RF furosemide 40 mg tablet 40 mg PO BID Qty: 60 5RF metoprolol succinate 100 mg tablet extended release 24 hr 100 mg PO DAILY 30 Days Qty: 30 5RF spironolactone 25 mg tablet 25 mg PO DAILY Qty: 30 5RF Protocol: Hold for SBP< HOLD for SBP < : 90 isosorbide mononitrate 60 mg tablet extended release 24 hr 60 mg PO DAILY Qty: 30 5RF Protocol: Hold for SBP< HOLD for SBP < : 90 oxycodone 5 mg tablet 5 mg PO Q6H PRN (Reason: pain) Qty: 10 0RF Rx Instructions: Partial Fill upon patient request. glipizide 10 mg Tablet 10 mg PO BIDWM Qty: 60 0RF insulin degludec [Tresiba FlexTouch U-100] 100 unit/mL (3 mL) insulin pen 25 unit subcut QPM amlodipine 10 mg Tablet 10 mg PO DAILY@1700 30 Days Qty: 30 0RF Protocol: Hold for SBP< HOLD for SBP < : 90 docusate sodium 100 mg Capsule 100 mg PO BEDTIME Qty: 30 0RF Januvia 100 mg tablet 100 mg PO DAILY sertraline 50 mg tablet 50 mg PO DAILY fluticasone propionate 50 mcg/actuation spray,suspension 2 spray intranasal QAM PRN (Reason: Nasal Congestion) metformin 1,000 mg tablet 1,000 mg PO BID atorvastatin 80 mg tablet 80 mg PO DAILY cyclobenzaprine 5 mg tablet 5 mg PO BEDTIME nabumetone 500 mg tablet 500 mg PO BID Referrals: [facility] [place] General Surgeons [Provider Group] (Call to establish and follow up with a general surgeon. Llame para establecer y hacer un seguimiento con un cirujano general.) Marline Richard MD [Primary Care Provider] - Interventions: ED Discharge Assessment Last Done: 08/16/22 13:42 Discharge Date/Time: 08/16/22 13:43 Print Language: Albanian
--- NOTE | 2022-08-16 11:18 | PC.NURSE ---
20g IV placed in RAC, labs drawn
[2022-08-16 11:20] LABS: Basophils Absolute Auto 0.1 X10*3/uL (0.0-0.2); Basophils Percent Auto 0.5 % (0-2); Eosinophils Absolute Auto 0.1 X10*3/uL (0.0-0.4); Eosinophils Percent Auto 1.1 % (0-4); Hematocrit 27.6 % (42.0-52.0); Hemoglobin 9.7 g/dl (14.0-18.0); Imm Gran Abs Auto 0.04 X10*3/uL (0.00-0.03); Imm Gran Pct Auto 0.4 % (0.0-0.4); Lymphocytes Absolute Auto 1.2 X10*3/uL (1.2-4.9); Lymphocytes Percent Auto 12.2 % (20-40); MANUAL DIFF FLAG NO; Mean Corpuscular HGB Conc 35.1 g/dl (31.0-36.0); Mean Corpuscular Hemoglobin 32.3 pg (27.0-33.0); Mean Platelet Volume 10.1 fL (9.4-12.4); Neutrophils Absolute Auto 7.5 x10*3/uL (2.0-8.3); Neutrophils Percent Auto 75.8 % (45-73); Platelet Count 239 X10*3/uL (160-400); Red Cell Distribution Width 11.7 % (11.0-16.0); White Blood Count 9.8 X10*3/uL (4.8-10.8)
[2022-08-16 11:35] LABS: Alanine Aminotransferase 27 U/L (0-40); Albumin Level 3.4 g/dL (3.5-5.0); Alkaline Phosphatase 75 U/L (39-117); Anion Gap 11 (12-20); Aspartate Amino Transferase 21 U/L (5-37); Bilirubin Total 0.4 mg/dL (0.0-1.0); Blood Urea Nitrogen 43 mg/dL (9-16); Calcium 9.1 mg/dL (8.4-10.2); Carbon Dioxide 22 mmol/L (22-29); Chloride 106 mmol/L (96-108); Creatinine Clr Calc Pharmacy 31.5; Estimated Glomerular Filt Rate 29; Glucose Random 174 mg/dL (60-115); Potassium 5.4 mmol/L (3.3-5.1); Sodium 134 mmol/L (135-145); Total Protein 6.5 g/dL (6.5-8.0)
[2022-08-16 11:59] VITALS: BP 186/72; PULSE 63; RESP 19; TEMP 36.6; O2SAT 97
[2022-08-16 12:21] LABS: Appearance Urine Clear; Color Urine Yellow; Glucose Urine UA Negative (Negative); Leukocyte Esterase Urine Negative (Negative); Nitrite Urine Negative (Negative); Specific Gravity - Urine <= 1.005 (1.005-1.025); UMIC TRIGGER UACC YES; Urine Blood Negative (Negative); Urine Ketones Negative (Negative); Urine Protein 300 (3+) mg/dL (Neg-Trace)
[2022-08-16 12:26] LABS: Bacteria Urine None Seen (None Seen); Hyaline Casts Urine 0-2 /LPF (0-2); RBC Urine 0-2 /HPF (0-2); Squamous Epithelial Cell Urine 0-2 /HPF (0-2); WBC Urine 0-5 /HPF (0-5)
== END 2022-08-16 13:43 | disposition home or self-care (01) ==
PROVIDERS: Emergency Provider Emergency Medicine; PCP General Practice
DX: R10.11 Right upper quadrant pain (principal); E11.22 Type 2 diabetes mellitus with diabetic chronic kidney disease; I13.0 Hypertensive heart and chronic kidney disease with heart failure and stage 1 through stage 4 chronic kidney disease, or unspecified chronic kidney disease; N18.30 Chronic kidney disease, stage 3 unspecified; I50.30 Unspecified diastolic (congestive) heart failure; E78.5 Hyperlipidemia, unspecified; Z89.512 Acquired absence of left leg below knee; Z79.02 Long term (current) use of antithrombotics/antiplatelets; Z79.899 Other long term (current) drug therapy; Z79.4 Long term (current) use of insulin
CPT/HCPCS: 36415; 76705; 80053; 81001; 85025; 99284

== ENCOUNTER 2022-08-18 11:48 | Emergency (ER) | payer OTHER, SELFPAY ==
[2022-08-18 11:53] VITALS: BP 162/72; BP 182/74; PULSE 74; PULSE 88; RESP 18; TEMP 36.8; O2SAT 97; O2SAT 99; BMI 27.3
--- NOTE | 2022-08-18 11:57 | ED_ITS ---
HPI - Recheck/Abnormal Lab/Rx General Chief Complaint: Recheck/Abnormal Lab/Rx Stated Complaint: R FLANK PAIN ABNORMAL LABS Time Seen by Provider: 08/18/22 11:53 Source: patient and EMS Mode of arrival: EMS Limitations: 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 (egyptian) History of Present Illness HPI narrative: History obtained through egyptian speaking nurse. Patient presented with elevated potassium. His last potassium showed 5.4 which was down from 6.1 MD complaint: abnormal lab (high potassium) Related Data Home Medications Medication Instructions Recorded Confirmed atorvastatin 80 mg tablet 80 mg PO DAILY 04/27/21 04/12/22 fluticasone propionate 50 2 spray intranasal QAM PRN Nasal 04/27/21 04/12/22 mcg/actuation nasal Congestion spray,suspension metformin 1,000 mg tablet 1,000 mg PO BID 04/27/21 04/12/22 sertraline 50 mg tablet 50 mg PO DAILY 04/27/21 04/12/22 sitagliptin phosphate 100 mg 100 mg PO DAILY 04/27/21 04/12/22 tablet (Januvia) insulin degludec 100 unit/mL (3 25 unit subcut QPM 01/03/22 04/12/22 mL) subcutaneous pen (Tresiba FlexTouch U-100 insulin) gabapentin 100 mg capsule 100 mg PO TID 04/12/22 cyclobenzaprine 5 mg tablet 5 mg PO BEDTIME 07/17/22 nabumetone 500 mg tablet 500 mg PO BID 07/17/22 Previous Rx's Medication Instructions Recorded tamsulosin 0.4 mg capsule 0.4 mg PO BEDTIME #30 caps 05/09/20 amlodipine 10 mg tablet 10 mg PO DAILY@1700 30 days #30 01/29/22 tabs docusate sodium 100 mg capsule 100 mg PO BEDTIME #30 caps 02/13/22 glipizide 10 mg tablet 10 mg PO BIDWM #60 tabs 03/30/22 oxycodone 5 mg tablet 5 mg PO Q6H PRN pain #10 tabs 03/30/22 hydralazine 50 mg tablet 50 mg PO TID #90 tabs 04/12/22 losartan 50 mg tablet 100 mg PO QAM #60 tabs 04/12/22 furosemide 40 mg tablet 40 mg PO BID #60 tabs 04/13/22 isosorbide mononitrate 60 mg 60 mg PO DAILY #30 tabs 04/13/22 tablet,extended release 24 hr metoprolol succinate 100 mg 100 mg PO DAILY 30 days #30 tabs 04/13/22 tablet,extended release 24 hr spironolactone 25 mg tablet 25 mg PO DAILY #30 tabs 04/13/22 sodium zirconium cyclosilicate 5 5 g PO Q OTHER DAY #30 ea 08/18/22 gram oral powder packet (Lokelma) Allergies Allergy/AdvReac Type Severity Reaction Status Date / Time metformin AdvReac Unknown Verified 08/18/22 11:59 Review of Systems Review of Systems: Yes all other systems are reviewed and are negative Neurologic: Denies Sensory deficit (Neuro) [facility] Past Medical History Medical History Diabetes High cholesterol HTN (hypertension) Hyperlipidemia associated with type 2 diabetes mellitus Kidney disease PAD (peripheral artery disease) Type 2 diabetes mellitus Surgical History H/O shoulder surgery History of amputation of right forefoot Hx of amputation Status post transmetatarsal amputation of left foot Family History Family History Other No family history of coronary artery disease Social History Social History Household Members: None Housing: Apartment Do you presently have visiting nurse or other home services: Yes Alcohol intake: current Alcohol intake frequency: holidays/special occasions only Alcohol type: beer Patient Tobacco Use Status: Former Tobacco user Quit Date: >20yr ago Tobacco use type: Cigarette Smoked in Last 30 Days: No Substance Use Type: Crack/Cocaine Advance Directives: No Advance Directives Information Provided: No Advance Directives Date on File: 02/02/22 service: No Current occupational status: retired Physical Exam Vital Signs: Vital Signs: Last Vital Signs Temp 98.3 F 08/18/22 11:53 Pulse 72 08/18/22 14:22 Resp 13 08/18/22 14:22 BP 197/78 H 08/18/22 14:22 Pulse Ox 98 08/18/22 14:22 O2 Del Method Room Air 08/18/22 14:22 BMI result Body Mass Index 27.3 Const: General: healthy appearing Nutritional Appearance: average body habitus Orientation/consciousness: oriented to person and patient oriented x3 Limitations: no limitations HEENT: Head: Yes normal to inspection Ears: external ears normal General nose exam: Normal external nose present Mouth: Normal oral and palatal mucosa present and oropharynx normal Throat: Yes posterior oropharynx normal Eyes: General: appearance normal, both eyes and all related structures Neck: Other: supple Neck: Yes normal visual inspection Chest: Chest palpation & inspection: normal inspection of the chest Resp: Auscultation: clear to auscultation bilaterally Cardio: Jugular venous distension: no JVD Rate: regular rate Rhythm: regular rhythm Heart sounds: S1 normal heart sound present and S2 normal heart sound present GI: Inspection: Yes normal to inspection Palpation (GI): Soft to palpation, nontender and No hepatosplenomegaly present Auscultation: normal bowel sounds : General: Yes no CVA tenderness Back/Spine/Pelvis: Back: no CVA tenderness Skin: General skin exam: no rashes or lesions noted Neuro: General: oriented to person and patient oriented x3 Cranial nerves: Yes CN's II-XII intact bilaterally Motor exam (neuro): 5/5 motor strength present throughout Sensory Exam: No Sensory deficit (Neuro) Extrem: Other: right transmetatarsal amputation, right BKA Psych: Appearance: grossly normal Course Reevaluation(s) Reevaluation #1: potassium came back at 5.6, he has had elevation in the past will place lokelma low dose every other day, EKG showed no evidence of hyperkalemia Time: 14:26 Medications Administered Discontinued Medications Generic Name Dose Route Start Last Admin Trade Name Janey PRN Reason Stop Dose Admin Sodium Zirconium Cyclosilicate 5 gm 08/18/22 12:45 08/18/22 13:02 Sodium Zirconium Cyclosilicate 5 Gm Powd.Pack PO 08/18/22 12:46 5 gm ONCE ONE Administration Medical Decision Making Differential Diagnosis Differential Diagnoses: The differential diagnosis associated with the presen tation includes (hyperkalemia, renal failure, UTI) Admission/Observation Consideration of admission/observation: Escalation of care including admission /observation considered (in this 67 yo diabetic with renal failure and hyperkalemia admission was considered upon arrival) Lab Data MDM Lab Attestation statement: I reviewed the patient's lab results. 08/18/22 12:12 06/10/23 12:12 Labs: Lab Results 08/18/22 08/18/22 08/18/22 Range/Units 12:12 12:12 13:00 WBC 6.7 (4.8-10.8) X10*3/uL RBC 3.27 L (4.60-5.80) X10*6/uL Hgb 10.5 L (14.0-18.0) g/dl Hct 30.9 L (42.0-52.0) % MCV 94.5 (80.0-98.0) fL MCH 32.1 (27.0-33.0) pg MCHC 34.0 (31.0-36.0) g/dl RDW 11.9 (11.0-16.0) % Plt Count 235 (160-400) X10*3/uL MPV 10.1 (9.4-12.4) fL Immature Gran % (Auto) 0.3 (0.0-0.4) % Neut % (Auto) 72.6 (45-73) % Lymph % (Auto) 14.1 L (20-40) % Lawrence % (Auto) 10.7 (2-11) % Eos % (Auto) 1.7 (0-4) % Baso % (Auto) 0.6 (0-2) % Lymph # (Auto) 0.9 L (1.2-4.9) X10*3/uL Lawrence # (Auto) 0.7 (0.1-1.2) X10*3/uL Eos # (Auto) 0.1 (0.0-0.4) X10*3/uL Baso # (Auto) 0.0 (0.0-0.2) X10*3/uL Abs Immat Gran (auto) 0.02 (0.00-0.03) X10*3/uL Absolute Neuts (auto) 4.8 (2.0-8.3) x10*3/uL Absolute Nucleated RBC 0.000 (0.0-0.012) X10*3/uL Nucleated RBC % (auto) 0.0 (0.0-0.2) /100WBC Sodium 141 (135-145) mmol/L Potassium 5.6 H (3.3-5.1) mmol/L Chloride 109 H (96-108) mmol/L Carbon Dioxide 25 (22-29) mmol/L Anion Gap 13 (12-20) BUN 34 H (9-16) mg/dL Creatinine 2.01 H (0.5-1.4) mg/dL Estim Creat Clear Calc 35.6 Estimated GFR 33 Random Glucose 251 H (60-115) mg/dL Calcium 9.6 (8.4-10.2) mg/dL Total Bilirubin 0.4 (0.0-1.0) mg/dL AST 23 (5-37) U/L ALT 29 (0-40) U/L Alkaline Phosphatase 77 (39-117) U/L Total Protein 6.8 (6.5-8.0) g/dL Albumin 3.6 (3.5-5.0) g/dL Lipase 56 (8-78) U/L Urine Color Yellow Urine Appearance Clear Urine pH 6.0 (5.0-9.0) Ur Specific [place] 1.015 (1.005-1.025) Urine Protein >=1000 (4+) H (Neg-Trace) mg/dL Urine Glucose (UA) Negative (Negative) mg/dL Urine Ketones Negative (Negative) mg/dL Urine Blood Trace H (Negative) Urine Nitrite Negative (Negative) Ur Leukocyte Esterase Negative (Negative) Urine RBC 0-2 (0-2) /HPF Urine WBC 0-5 (0-5) /HPF Ur Squamous Epith Cells 0-2 (0-2) /HPF Urine Bacteria None Seen (None Seen) Hyaline Casts 0-2 (0-2) /LPF Independent Interpretation I performed an independent interpretation of an: EKG (sinus 67, no peaked twaves) Chronic Conditions Patient?s care impacted by: Diabetes, Hypertension and Other (renal failure) Discharge Plan Discharge Clinical Impression: Kidney disease, PAD (peripheral artery disease), Type 2 diabetes mellitus, Chronic hyperkalemia Patient Disposition: Home, Self-Care Instructions: Potassium Content of Foods List (ED), Hyperkalemia (ED), Impaired Kidney Function (ED) Prescriptions: New Lokelma 5 gram powder in packet 5 g PO Q OTHER DAY Qty: 30 0RF No Action tamsulosin 0.4 mg capsule 0.4 mg PO BEDTIME Qty: 30 2RF gabapentin 100 mg capsule 100 mg PO TID hydralazine 50 mg tablet 50 mg PO TID Qty: 90 0RF Protocol: Hold for SBP< HOLD for SBP < : 90 losartan 50 mg tablet 100 mg PO QAM Qty: 60 0RF furosemide 40 mg tablet 40 mg PO BID Qty: 60 5RF metoprolol succinate 100 mg tablet extended release 24 hr 100 mg PO DAILY 30 Days Qty: 30 5RF spironolactone 25 mg tablet 25 mg PO DAILY Qty: 30 5RF Protocol: Hold for SBP< HOLD for SBP < : 90 isosorbide mononitrate 60 mg tablet extended release 24 hr 60 mg PO DAILY Qty: 30 5RF Protocol: Hold for SBP< HOLD for SBP < : 90 oxycodone 5 mg tablet 5 mg PO Q6H PRN (Reason: pain) Qty: 10 0RF Rx Instructions: Partial Fill upon patient request. glipizide 10 mg Tablet 10 mg PO BIDWM Qty: 60 0RF insulin degludec [Tresiba FlexTouch U-100] 100 unit/mL (3 mL) insulin pen 25 unit subcut QPM amlodipine 10 mg Tablet 10 mg PO DAILY@1700 30 Days Qty: 30 0RF Protocol: Hold for SBP< HOLD for SBP < : 90 docusate sodium 100 mg Capsule 100 mg PO BEDTIME Qty: 30 0RF Januvia 100 mg tablet 100 mg PO DAILY sertraline 50 mg tablet 50 mg PO DAILY fluticasone propionate 50 mcg/actuation spray,suspension 2 spray intranasal QAM PRN (Reason: Nasal Congestion) metformin 1,000 mg tablet 1,000 mg PO BID atorvastatin 80 mg tablet 80 mg PO DAILY cyclobenzaprine 5 mg tablet 5 mg PO BEDTIME nabumetone 500 mg tablet 500 mg PO BID Referrals: [facility] [Primary Care Provider] - 3 days
[2022-08-18 12:16] VITALS: BP 170/71; PULSE 70; RESP 14; O2SAT 99
[2022-08-18 12:17] LABS: MANUAL DIFF FLAG NO
[2022-08-18 12:20] LABS: Basophils Percent Auto 0.6 % (0-2); Eosinophils Absolute Auto 0.1 X10*3/uL (0.0-0.4); Eosinophils Percent Auto 1.7 % (0-4); Hematocrit 30.9 % (42.0-52.0); Hemoglobin 10.5 g/dl (14.0-18.0); Imm Gran Abs Auto 0.02 X10*3/uL (0.00-0.03); Imm Gran Pct Auto 0.3 % (0.0-0.4); Lymphocytes Absolute Auto 0.9 X10*3/uL (1.2-4.9); Lymphocytes Percent Auto 14.1 % (20-40); Mean Corpuscular Hemoglobin 32.1 pg (27.0-33.0); Mean Corpuscular Volume 94.5 fL (80.0-98.0); Mean Platelet Volume 10.1 fL (9.4-12.4); Monocytes Absolute Auto 0.7 X10*3/uL (0.1-1.2); Monocytes Percent Auto 10.7 % (2-11); Neutrophils Absolute Auto 4.8 x10*3/uL (2.0-8.3); Neutrophils Percent Auto 72.6 % (45-73); Platelet Count 235 X10*3/uL (160-400); Red Blood Count 3.27 X10*6/uL (4.60-5.80); Red Cell Distribution Width 11.9 % (11.0-16.0); White Blood Count 6.7 X10*3/uL (4.8-10.8)
[2022-08-18 12:40] LABS: Alanine Aminotransferase 29 U/L (0-40); Albumin Level 3.6 g/dL (3.5-5.0); Alkaline Phosphatase 77 U/L (39-117); Anion Gap 13 (12-20); Aspartate Amino Transferase 23 U/L (5-37); Bilirubin Total 0.4 mg/dL (0.0-1.0); Blood Urea Nitrogen 34 mg/dL (9-16); Calcium 9.6 mg/dL (8.4-10.2); Carbon Dioxide 25 mmol/L (22-29); Chloride 109 mmol/L (96-108); Creatinine Clr Calc Pharmacy 35.6; Estimated Glomerular Filt Rate 33; Glucose Random 251 mg/dL (60-115); Lipase 56 U/L (8-78); Potassium 5.6 mmol/L (3.3-5.1); Sodium 141 mmol/L (135-145); Total Protein 6.8 g/dL (6.5-8.0)
--- NOTE | 2022-08-18 12:45 | ECG_ITS ---
Test Reason : hyperkalemia Blood Pressure : / mmHG Vent. Rate : 067 BPM Atrial Rate : 067 BPM P-R Int : 244 ms QRS Dur : 082 ms QT Int : 380 ms P-R-T Axes : 051 016 035 degrees QTc Int : 401 ms Sinus rhythm with 1st degree A-V block Otherwise normal ECG When compared with ECG of 10-JAN-2022 08:10, No significant change was found Referred By: Salvador Villagomez Electronically Signed By:Armando Moody
[2022-08-18] MEDS: Sodium Zirconium Cyclosilicate 5 GM POWD.PACK PO (13:02)
[2022-08-18 13:07] LABS: Appearance Urine Clear; Color Urine Yellow; Glucose Urine UA Negative (Negative); Leukocyte Esterase Urine Negative (Negative); Nitrite Urine Negative (Negative); Specific Gravity - Urine 1.015 (1.005-1.025); UMIC TRIGGER UACC YES; Urine Blood Trace (Negative); Urine Ketones Negative (Negative); Urine Protein >=1000 (4+) mg/dL (Neg-Trace)
[2022-08-18 13:10] LABS: Bacteria Urine None Seen (None Seen); Hyaline Casts Urine 0-2 /LPF (0-2); RBC Urine 0-2 /HPF (0-2); Squamous Epithelial Cell Urine 0-2 /HPF (0-2); WBC Urine 0-5 /HPF (0-5)
[2022-08-18 14:22] VITALS: BP 197/78; PULSE 72; RESP 13; O2SAT 98
== END 2022-08-18 14:56 | disposition home or self-care (01) ==
PROVIDERS: Emergency Provider Emergency Medicine
DX: E87.5 Hyperkalemia (principal); I73.9 Peripheral vascular disease, unspecified; E11.22 Type 2 diabetes mellitus with diabetic chronic kidney disease; I13.0 Hypertensive heart and chronic kidney disease with heart failure and stage 1 through stage 4 chronic kidney disease, or unspecified chronic kidney disease; N18.30 Chronic kidney disease, stage 3 unspecified; I50.30 Unspecified diastolic (congestive) heart failure; E78.5 Hyperlipidemia, unspecified; Z79.4 Long term (current) use of insulin; Z79.899 Other long term (current) drug therapy; Z79.02 Long term (current) use of antithrombotics/antiplatelets
CPT/HCPCS: 36415; 80053; 81001; 83690; 85025; 93005; 99283; 99284

== ENCOUNTER 2022-08-29 10:21 | Outpatient (REF) | payer OTHER, SELFPAY ==
[2022-08-29 12:07] LABS: Anion Gap 14 (12-20); Blood Urea Nitrogen 43 mg/dL (9-16); Calcium 9.3 mg/dL (8.4-10.2); Carbon Dioxide 25 mmol/L (22-29); Chloride 107 mmol/L (96-108); Estimated Glomerular Filt Rate 25; Potassium 5.1 mmol/L (3.3-5.1); Sodium 141 mmol/L (135-145)
== END 2022-08-29 10:22 | disposition home or self-care (01) ==
LOC: HO.LAB 10:21
PROVIDERS: PCP General Practice; Visit Provider Internal Medicine Nephrology
DX: E87.5 Hyperkalemia (principal)
CPT/HCPCS: 36415; 80051; 82310; 82565; 84520

== ENCOUNTER 2022-09-03 14:28 | Outpatient (AMB) | payer OTHER, SELFPAY ==
--- NOTE | 2022-09-03 15:05 | A.OFFVIS_ITS ---
Intake Intake Visit Reasons: Erectile dysfunction Intake Note: * NEW Patient presents today for to established treatment for Erectile Dysfunction. * Meds- Furosemide & Tamsulosin * Allergies to Antibiotic- None * Blood Thinner- None Research Center Director Required: Yes Research Center Director Language: Burundian Accompanied by: Self / Same As Patient Allergies metformin Adverse Reaction (Verified 10/09/22 15:09) Unknown HPI HPI Comments History of Present Illness Details 09/03/22--Kingsley is a 67-year-old male who presents to the office as a new patient evaluation for erectile dysfunction. The patient states having problems with erections started about a year ago. Significant PMH - Insulin dependent DM. The patient states he has been diabetic since 25 years and is on insulin for about a year. The patient was a former cigarette smoker with half a pack per day and stopped smoking around the age of 30 years. Evaluation today-- Blood: 10 Jaciel/uL, leukocytes: negative. AUA symptom score-- 24. Plan: PSA and free/total testosterone, FSH, glucose fasting, and haemoglobin A1c blood work was ordered. [facility] Medical History (Updated 10/31/22 @ 16:38 by Jamila Toledo MD) (HFpEF) heart failure with preserved ejection fraction CKD (chronic kidney disease) stage 3, GFR 30-59 ml/min CKD stage 3 due to type 2 diabetes mellitus Diabetes High cholesterol HTN (hypertension) Hyperlipidemia associated with type 2 diabetes mellitus LIVE (iron deficiency anemia) Kidney disease Osteomyelitis PAD (peripheral artery disease) Type 2 diabetes mellitus Surgical History H/O shoulder surgery History of amputation of right forefoot Hx of amputation Status post transmetatarsal amputation of left foot Family History Other No family history of coronary artery disease Social History Household Members: None Housing: Apartment Do you presently have visiting nurse or other home services: Yes Alcohol intake: current Alcohol intake frequency: a few times a month Alcohol type: beer Patient Tobacco Use Status: Former Tobacco user Quit Date: >20yr ago Tobacco use type: Cigarette Substance Use Type: Crack/Cocaine Advance Directives Date on File: 02/02/22 service: No Current occupational status: retired Questionnaire AUA Symptom Score AUA Incomplete emptying - It does not feel like I empty my bladder all the way.: 3 - About half the time Frequency - I have to go again less than two hours after I finish urinating.: 4 - More than half the time Intermittency - I stop and start again several times when I urinate.: 4 - More than half the time Urgency - It is hard to wait when I have to urinate.: 3 - About half the time Weak stream - I have a weak urinary stream.: 2 - Less than half the time Straining - I have to push or strain to begin urination.: 3 - About half the time Nocturia - I get up to urinate after I go to bed until the time I get up in the morning.: 5 time or more AUA Symptom Score: 24 Quality of life due to urinary symptoms: If you were to spend the rest of your life with your urinary condition the way it is now, how would you feel about that?: Mixed: about equally satisfied and dissatisfied Source: Juan Antonio RAVI, Jeannine GUADALUPE Jr, O'Preet MP, et al, and the Measurement Committee of the [employer]. The [employer] symptom index for benign prostatic hyperplasia. J Urol. 1992; 148: 3334-4792. Copyright 1992 [employer] Review of Systems Const All systems reviewed & are unremarkable except as noted in HPI and below Reports no additional complaints Eyes Reports no additional complaints ENT Reports no additional complaints Card Denies dyspnea Resp Denies cough and Denies dyspnea GI Reports no additional complaints Musc Reports no additional complaints Skin/Breast Denies rash and Denies unusual bruising Neuro Reports no additional complaints Psych Reports no additional complaints Endo Reports no additional complaints Michael/Lymph Reports no additional complaints Aller/Immun Reports no additional complaints Results AMB Urinalysis, Automated UA Leukoctes 0 Aide/uL Last Edit by HERMES Paz on 09/03/22 15:09 UA Nitrite Negative Last Edit by Dennis Muñoz A on 09/03/22 15:09 UA Urobilinogen 0.2 mg/dL Last Edit by Dennis Muñoz A on 09/03/22 15:0 9 UA Protein 300 mg/dL Last Edit by Dennis Muñoz, A on 09/03/22 15:09 3+ Dennis Muñoz 09/03/22 15:09 UA pH 6.0 Last Edit by Dennis Muñoz A on 09/03/22 15:09 UA Blood 10 Jaciel/uL Last Edit by Dennis Muñoz A on 09/03/22 15:09 UA Specific [place] 1.015 Last Edit by Dennis Muñoz A on 09/03/22 15: 09 UA Ketone Negative Last Edit by Dennis Muñoz A on 09/03/22 15:09 UA Bilirubin 0 mg/dL Last Edit by Dennis Muñoz A on 09/03/22 15:09 UA Glucose 0 mg/dL Last Edit by Dennis Muñoz A on 09/03/22 15:09 Results Reviewed Results Reviewed: Laboratory Last Values Urine pH (Auto) 6.0 09/03/22 15:07 Specific [place] (Auto) 1.015 09/03/22 15:07 Urine Protein (Auto) 300 mg/dL 09/03/22 15:07 Glucose (UA)(Auto) 0 mg/dL 09/03/22 15:07 Urine Ketones (Auto) Negative 09/03/22 15:07 Urine Blood (Auto) 10 Jaciel/uL 09/03/22 15:07 Urine Nitrite (Auto) Negative 09/03/22 15:07 Urine Bilirubin (Auto) 0 mg/dL 09/03/22 15:07 Urine Urobilinogen (Auto) 0.2 mg/dL 09/03/22 15:07 Leukocyte Esterase (Auto) 0 Aide/uL 09/03/22 15:07 Assessment & Plan Assessment & Plan (1) Erectile dysfunction: Code(s): N52.9 - Male erectile dysfunction, unspecified (2) Benign prostatic hyperplasia: Code(s): N40.0 - Benign prostatic hyperplasia without lower urinary tract symptoms Plan PSA and free/total testosterone, FSH, glucose fasting, and haemoglobin A1c blood work was ordered. Orders: Orders Follicle Stimulating Hormone 09/03/22 N52.9 - Male erectile dysfunction, unspecified Glucose Fasting 09/03/22 N52.9 - Male erectile dysfunction, unspecified Hemoglobin A1c 09/03/22 N52.9 - Male erectile dysfunction, unspecified PSA,Total (Free>4and<10) 09/03/22 N40.1 - Benign prostatic hyperplasia with lower urinary tract symptoms Testosterone, Free/Total 09/03/22 N52.9 - Male erectile dysfunction, unspecified AMB Urinalysis Automated 09/03/22 Z13.9 - Encounter for screening, unspecified Medications: Discontinued amlodipine 10 mg See Protocol PO DAILY@1700 30 days 30 tabs 0RF sodium zirconium cyclosilicate 5 grams PO Q OTHER DAY 30 ea 0RF hydralazine 50 mg See Protocol PO TID 90 tabs 0RF losartan 100 mg (2 x 50 mg) PO QAM 60 tabs 0RF Patient Instructions: The patient had an opportunity to ask questions regarding treatment plan. All questions were answered. Laboratory studies and physical exam results were discussed and reviewed in detail. No major barriers to understanding were identified. The patient expressed understanding and agreement with the above treatment plan. The patient is aware they should contact our office by phone for worsening of their current condition or the appearance of new symptoms. Compliance is encouraged with any medications and followup testing that is ordered. It is a privilege to be allowed the opportunity to participate in the urologic care of your patient. If you have any questions or concerns regarding treatment for the above conditions please do not hesitate to contact me. The office telephone contact is [phone]. This note is constructed in part using voice recognition software. While every effort has been made to ensure accuracy crank hand errors may have been included. Yours sincerely, Jamila Toledo MD Quality Reporting (2019) Benign Prostatic Hyperplasia ([facility] 771) AUA symptom score: 24 Quality of life due to urinary symptoms: If you were to spend the rest of your life with your urinary condition the way it is now, how would you feel about that?: Mixed: about equally satisfied and dissatisfied Coding Level of Care Code New Pt Level 4 (51933) Diagnoses Erectile dysfunction N52.9 Benign prostatic hyperplasia N40.0
== END 2022-09-03 15:53 | disposition home or self-care (01) ==
PROVIDERS: Visit Provider Urology
DX: N52.9 Male erectile dysfunction, unspecified (principal); N40.0 Benign prostatic hyperplasia without lower urinary tract symptoms
CPT/HCPCS: 99204

== ENCOUNTER → 2022-09-03 14:28 | Outpatient (BNVA) | payer OTHER, SELFPAY | PROVIDERS: Visit Provider Urology | DX: N52.9 Male erectile dysfunction, unspecified (principal); N40.0 Benign prostatic hyperplasia without lower urinary tract symptoms | CPT/HCPCS: 99202 ==

== ENCOUNTER 2022-09-28 13:51 | Inpatient (IN) | payer OTHER, SELFPAY ==
[2022-09-28] VITALS (9 sets, daily range): BP systolic 132–200; BP diastolic 51–95; PULSE 54–67; RESP 13–20; TEMP 36.4–36.8; O2SAT 94–98; BMI 29.5
--- NOTE | ~2022-09-28 | US_ITS ---
EXAMINATION: Renal ultrasound and renal Doppler exam CLINICAL INFORMATION: Hypertension COMPARISON: Abdominal ultrasound most recent August [address] of the abdomen and pelvis April 2019 TECHNIQUE: Doppler color and grayscale evaluation of the kidneys and renal arteries including waveform spectral analysis.. FINDINGS: The kidneys are normal in contour and symmetric in size with the right kidney measuring 11.8 x 5.2 x 4.1 cm and the left measuring 10.4 x 6 x 5.3 cm. Renal cortical thickness and echogenicity is normal. No renal stone, mass or hydronephrosis. The mid aortic peak systolic velocity is 97 cm/s. The right renal artery is patent. Right renal artery peak systolic velocity is elevated in the midportion and measures 159 cm/s, 316 and 91 cm/s proximally, in the midportion and distally. Right renal artery to aorta peak systolic velocity is upper normal and measures 3.3 cm. The resistive indices of the segmental renal arteries in the right kidney are slightly elevated measuring 0.7-0.8. The right renal vein is patent. Left renal artery peak systolic velocities are normal measuring 177, 120 and 126 cm/s proximally, in the midportion and distally. Left renal artery to aorta ratio measures 1.8. Left renal vein is patent. US/US renal doppler IMPRESSION: Morphologically normal-appearing kidneys. Increased peak systolic velocity in the right mid renal artery, upper renal artery to aorta ratio and slightly elevated segmental resistive indices in the right kidney suggestive of right renal artery stenosis. Follow-up CTA or MRA should be considered. Direct left renal artery evaluation is normal. Slightly elevated resistive indices of the segmental renal arteries in the left kidney.
--- NOTE | ~2022-09-28 | XR_ITS ---
EXAMINATION: XR CHEST CLINICAL INFORMATION: Chest pain COMPARISON: Previous chest x-ray most recent February 2022 and chest CTA August 2018 TECHNIQUE: 2 views of the chest were obtained. FINDINGS: The cardiac silhouette is enlarged but stable. There is curvilinear retrosternal calcification in the region of the aortic arch seen on the lateral view. Compared with previous chest CTA this likely corresponds to aortic wall calcification. Hilar and mediastinal contours are otherwise unremarkable. The lungs are clear. No pleural effusion or pneumothorax. Degenerative changes of the spine. XR/XR chest 2V IMPRESSION: Stable enlargement of the cardiac silhouette. No evidence for acute disease in the chest.
--- NOTE | 2022-09-28 13:54 | ECG_ITS ---
Test Reason : CHEST PAIN Blood Pressure : / mmHG Vent. Rate : 059 BPM Atrial Rate : 059 BPM P-R Int : 254 ms QRS Dur : 094 ms QT Int : 402 ms P-R-T Axes : 044 012 024 degrees QTc Int : 397 ms Sinus bradycardia with 1st degree A-V block Otherwise normal ECG When compared with ECG of 18-AUG-2022 12:50, No significant change was found Referred By: Kaya Jenkins Electronically Signed By:Armando Moody
[2022-09-28 14:26] LABS: MANUAL DIFF FLAG NO
[2022-09-28 14:31] LABS: Basophils Percent Auto 0.6 % (0-2); Eosinophils Absolute Auto 0.2 X10*3/uL (0.0-0.4); Eosinophils Percent Auto 2.4 % (0-4); Hematocrit 27.3 % (42.0-52.0); Hemoglobin 9.2 g/dl (14.0-18.0); Imm Gran Abs Auto 0.04 X10*3/uL (0.00-0.03); Imm Gran Pct Auto 0.6 % (0.0-0.4); Mean Corpuscular HGB Conc 33.7 g/dl (31.0-36.0); Mean Corpuscular Hemoglobin 31.6 pg (27.0-33.0); Mean Corpuscular Volume 93.8 fL (80.0-98.0); Mean Platelet Volume 10.1 fL (9.4-12.4); Monocytes Absolute Auto 0.8 X10*3/uL (0.1-1.2); Monocytes Percent Auto 11.6 % (2-11); Neutrophils Absolute Auto 5.1 x10*3/uL (2.0-8.3); Neutrophils Percent Auto 70.8 % (45-73); Platelet Count 270 X10*3/uL (160-400); Red Blood Count 2.91 X10*6/uL (4.60-5.80); White Blood Count 7.2 X10*3/uL (4.8-10.8)
[2022-09-28 14:43] LABS: Alanine Aminotransferase 20 U/L (0-40); Albumin Level 2.9 g/dL (3.5-5.0); Alkaline Phosphatase 84 U/L (39-117); Anion Gap 10 (12-20); Aspartate Amino Transferase 19 U/L (5-37); Bilirubin Total 0.3 mg/dL (0.0-1.0); Blood Urea Nitrogen 41 mg/dL (9-16); Calcium 8.8 mg/dL (8.4-10.2); Carbon Dioxide 24 mmol/L (22-29); Chloride 110 mmol/L (96-108); Creatinine Clr Calc Pharmacy 37.1; Estimated Glomerular Filt Rate 32; Glucose Random 236 mg/dL (60-115); Magnesium 1.6 mg/dL (1.6-2.6); Potassium 4.3 mmol/L (3.3-5.1); Sodium 140 mmol/L (135-145)
[2022-09-28 14:48] LABS: B Type Natriuretic Peptide 445 pg/mL (<100)
[2022-09-28 14:59] LABS: COVID-19 Test Negative (Negative); IDNOW Serial# 9DB6401D
--- NOTE | 2022-09-28 15:19 | PC.NURSE ---
pt arrived via EMS with complaints of left sided chest pain, has been happening for 3 days. A&O x4, IV inserted by EMS - 18 L AC. pt reports 5/10 chest pain at this time.
--- NOTE | 2022-09-28 16:18 | ED_ITS ---
HPI - Chest Pain General Chief Complaint: Chest Pain Stated Complaint: Chest pain, AGUIRRE, high BP per EMS Time Seen by Provider: 09/28/22 16:11 Source: patient Mode of arrival: EMS Limitations: no limitations History of Present Illness HPI narrative: Patient comes to the emergency room complaining of hypertension and chest pain for 3 days. Patient states that over the last couple of days, patient has noted that his blood pressure has been above 200 systolic. Patient has been complaining of intermittent chest pain for approximately 3 days. Before arriving to the hospital, EMS gave the patient nitroglycerin sublingual and full-dose aspirin, patient states that at this time the pain is 4/10. Patient denies any nausea vomiting diarrhea, no shortness of breath. No lower extremity edema on the right leg (left BKA). Related Data Home Medications Medication Instructions Recorded Confirmed atorvastatin 80 mg tablet 80 mg PO DAILY 04/27/21 04/12/22 fluticasone propionate 50 2 spray intranasal QAM PRN Nasal 04/27/21 04/12/22 mcg/actuation nasal Congestion spray,suspension metformin 1,000 mg tablet 1,000 mg PO BID 04/27/21 04/12/22 sertraline 50 mg tablet 50 mg PO DAILY 04/27/21 04/12/22 sitagliptin phosphate 100 mg 100 mg PO DAILY 04/27/21 04/12/22 tablet (Januvia) insulin degludec 100 unit/mL (3 25 unit subcut QPM 01/03/22 04/12/22 mL) subcutaneous pen (Tresiba FlexTouch U-100 insulin) gabapentin 100 mg capsule 100 mg PO TID 04/12/22 cyclobenzaprine 5 mg tablet 5 mg PO BEDTIME 07/17/22 nabumetone 500 mg tablet 500 mg PO BID 07/17/22 Previous Rx's Medication Instructions Recorded tamsulosin 0.4 mg capsule 0.4 mg PO BEDTIME #30 caps 05/09/20 amlodipine 10 mg tablet 10 mg PO DAILY@1700 30 days #30 01/29/22 tabs docusate sodium 100 mg capsule 100 mg PO BEDTIME #30 caps 02/13/22 glipizide 10 mg tablet 10 mg PO BIDWM #60 tabs 03/30/22 oxycodone 5 mg tablet 5 mg PO Q6H PRN pain #10 tabs 03/30/22 hydralazine 50 mg tablet 50 mg PO TID #90 tabs 04/12/22 losartan 50 mg tablet 100 mg PO QAM #60 tabs 04/12/22 furosemide 40 mg tablet 40 mg PO BID #60 tabs 04/13/22 isosorbide mononitrate 60 mg 60 mg PO DAILY #30 tabs 04/13/22 tablet,extended release 24 hr metoprolol succinate 100 mg 100 mg PO DAILY 30 days #30 tabs 04/13/22 tablet,extended release 24 hr spironolactone 25 mg tablet 25 mg PO DAILY #30 tabs 04/13/22 sodium zirconium cyclosilicate 5 5 g PO Q OTHER DAY #30 ea 08/18/22 gram oral powder packet (Lokelma) Allergies Allergy/AdvReac Type Severity Reaction Status Date / Time metformin AdvReac Unknown Verified 09/03/22 15:05 Review of Systems Review of Systems: Constitutional : No Weight loss, No Fever, No Chills, No Night Sweats, No Fatigue, No Malaise ENT/Mouth : No Hearing loss, No Ear Pain, No Nasal Congestion, No Sinus Pain, No Hoarseness, No sore throat, No Rhinorrhea, No Swallowing Difficulty Eyes: No Eye Pain, No Swelling, No Redness, No Foreign Body, No Discharge, No Vision Changes Cardiovascular : Complaining of intermittent Chest Pain, No SOB, No Dyspnea on Exertion, No Orthopnea, No Edema, No Palpitations, complaining of high blood pressure Respiratory : No Cough, No Sputum, No Wheezing, No Smoke Exposure, No Dyspnea Gastrointestinal : No Nausea, No Vomiting, No Diarrhea, No Constipation, No abdominal Pain, No Hematochezia, No Melena Genitourinary : no irregular bleeding, No Dysuria, No Urinary Frequency, No Hematuria, No Urinary Incontinence, No Urgency, No Flank Pain, No Urinary Flow Changes, No Hesitancy Musculoskeletal : No joint pain, No Myalgias, No Joint Swelling Skin : No Skin Lesions, No rash Neuro : No Weakness, No Numbness, No Paresthesias, No Loss of Consciousness, No Dizziness, earlier today had headache, now resolved Psych : No Anxiety/Panic, No Depression, No SI/HI/AH/VH, No Social Issues, Heme/Lymph: No Bruising, No Bleeding,No Lymphadenopathy Endocrine : No Polyuria, No Polydipsia, No Temperature Intolerance PMFSH Past Medical History Medical History Diabetes High cholesterol HTN (hypertension) Hyperlipidemia associated with type 2 diabetes mellitus Kidney disease PAD (peripheral artery disease) Type 2 diabetes mellitus Surgical History H/O shoulder surgery History of amputation of right forefoot Hx of amputation Status post transmetatarsal amputation of left foot Family History Family History Other No family history of coronary artery disease Social History Social History Household Members: None Housing: Apartment Do you presently have visiting nurse or other home services: Yes Alcohol intake: current Alcohol intake frequency: holidays/special occasions only Alcohol type: beer Patient Tobacco Use Status: Former Tobacco user Quit Date: >20yr ago Tobacco use type: Cigarette Smoked in Last 30 Days: No Use of substances other than those prescribed or required for medical reasons: No Substance Use Type: Crack/Cocaine Advance Directives: Yes Advance Directives on File: Yes Advance Directives Date on File: 02/02/22 service: No Current occupational status: retired Physical Exam Vital Signs: Vital Signs: Last Vital Signs Temp 98.1 F 09/28/22 18:07 Pulse 56 09/28/22 18:07 Resp 14 09/28/22 18:07 BP 200/77 H 09/28/22 18:07 Pulse Ox 98 09/28/22 18:07 O2 Del Method Room Air 09/28/22 18:07 BMI result Body Mass Index 29.5 Const: Other: Appearance: Alert. Oriented X3. No acute distress. Eyes: Pupils equal, round and reactive to light. ENT: Pharynx normal. Neck: Normal inspection. Neck supple. No lymph nodes noted. No crepitus CVS: Normal heart rate and rhythm. Pulses normal. Normal S1 and S2 Respiratory: No respiratory distress. Breath sounds normal. No Wheezing. No rales Abdomen: Soft and nontender. No rigidity. No distention. Skin: Skin warm and dry. Normal skin color. Normal skin turgor. Extremities: No lower extremity edema. No Lacerations. No Rash Neuro: Oriented X 3. No motor deficit. No sensory deficit. Moving all ext remities. No slurred speech. CN 2 through 12 grossly intact Psych: calm, cooperative, normal affect Medications Administered Discontinued Medications Generic Name Dose Route Start Last Admin Trade Name Janey PRN Reason Stop Dose Admin Amlodipine Besylate 10 mg 09/28/22 18:26 09/28/22 18:43 Amlodipine Besylate 10 Mg Tablet PO 09/28/22 18:27 10 mg ONCE ONE Administration Protocol Nitroglycerin 1 inch 09/28/22 16:19 09/28/22 16:46 Nitroglycerin 2 % Oint 1 Gm Packet TRANSDERMA 09/28/22 16:20 1 inch ONCE ONE Administration Medical Decision Making Medical Decision Making [facility] Narrative: -my interpretation EKG: Sinus bradycardia, 1st AV block, I FX segment depression or elevation, nonspecific T-wave inversion, QTC 397 -my interpretation of chest x-ray: No pulmonary edema, cardiomegaly present -at this time, admission being considered. Patient still having chest pain, nitro paste being applied -my interpretation of labs: Chronic anemia, elevated creatinine 2.08, at baseline, troponin 1. Normal, troponin 2 pending, BNP 445 -troponin 2. Is 27.6, troponins are flat. Patient was given nitropaste earlier today, at this time, patient states that he has no chest pain at all. However, blood pressure 195 systolic. Patient being given IV hydralazine. -I discussed the patient with Dr. Quintanilla, patient being admitted Differential Diagnosis Differential Diagnoses: The differential diagnosis associated with the presentation includes (Hypertensive urgency, hypertensive emergency, CHF exacerbation, flash pulmonary edema) Admission/Observation Consideration of admission/observation: Escalation of care including admission/observation considered Consult Healthcare Provider Management of the patient was discussed with: Hospitalist Lab Data [facility] Lab Attestation statement: I reviewed the patient's lab results. 09/28/22 14:19 09/28/22 14:19 Labs: Lab Results 09/28/22 09/28/22 09/28/22 Range/Units 14:15 14:19 14:19 WBC 7.2 (4.8-10.8) X10*3/uL RBC 2.91 L (4.60-5.80) X10*6/uL Hgb 9.2 L (14.0-18.0) g/dl Hct 27.3 L (42.0-52.0) % MCV 93.8 (80.0-98.0) fL MCH 31.6 (27.0-33.0) pg MCHC 33.7 (31.0-36.0) g/dl RDW 12.0 (11.0-16.0) % Plt Count 270 (160-400) X10*3/uL MPV 10.1 (9.4-12.4) fL Immature Gran % (Auto) 0.6 H (0.0-0.4) % Neut % (Auto) 70.8 (45-73) % Lymph % (Auto) 14.0 L (20-40) % [place] % (Auto) 11.6 H (2-11) % Eos % (Auto) 2.4 (0-4) % Baso % (Auto) 0.6 (0-2) % Lymph # (Auto) 1.0 L (1.2-4.9) X10*3/uL [place] # (Auto) 0.8 (0.1-1.2) X10*3/uL Eos # (Auto) 0.2 (0.0-0.4) X10*3/uL Baso # (Auto) 0.0 (0.0-0.2) X10*3/uL Abs Immat Gran (auto) 0.04 H (0.00-0.03) X10*3/uL Absolute Neuts (auto) 5.1 (2.0-8.3) x10*3/uL Absolute Nucleated RBC 0.000 (0.0-0.012) X10*3/uL Nucleated RBC % (auto) 0.0 (0.0-0.2) /100WBC Sodium 140 (135-145) mmol/L Potassium 4.3 (3.3-5.1) mmol/L Chloride 110 H (96-108) mmol/L Carbon Dioxide 24 (22-29) mmol/L Anion Gap 10 L (12-20) BUN 41 H (9-16) mg/dL Creatinine 2.08 H (0.5-1.4) mg/dL Estim Creat Clear Calc 37.1 Estimated GFR 32 Random Glucose 236 H (60-115) mg/dL Calcium 8.8 (8.4-10.2) mg/dL Magnesium 1.6 (1.6-2.6) mg/dL Total Bilirubin 0.3 (0.0-1.0) mg/dL AST 19 (5-37) U/L ALT 20 (0-40) U/L Alkaline Phosphatase 84 (39-117) U/L Troponin I High Sens (<3.5-35.0) ng/L B-Natriuretic Peptide (<100) pg/mL Total Protein 6.0 L (6.5-8.0) g/dL Albumin 2.9 L (3.5-5.0) g/dL COVID-19 (YANELIS) Negative (Negative) COVID-19 Clin Com See Note 09/28/22 09/28/22 09/28/22 Range/Units 14:19 14:19 16:13 WBC (4.8-10.8) X10*3/uL RBC (4.60-5.80) X10*6/uL Hgb (14.0-18.0) g/dl Hct (42.0-52.0) % MCV (80.0-98.0) fL MCH (27.0-33.0) pg MCHC (31.0-36.0) g/dl RDW (11.0-16.0) % Plt Count (160-400) X10*3/uL MPV (9.4-12.4) fL Immature Gran % (Auto) (0.0-0.4) % Neut % (Auto) (45-73) % Lymph % (Auto) (20-40) % [place] % (Auto) (2-11) % Eos % (Auto) (0-4) % Baso % (Auto) (0-2) % Lymph # (Auto) (1.2-4.9) X10*3/uL [place] # (Auto) (0.1-1.2) X10*3/uL Eos # (Auto) (0.0-0.4) X10*3/uL Baso # (Auto) (0.0-0.2) X10*3/uL Abs Immat Gran (auto) (0.00-0.03) X10*3/uL Absolute Neuts (auto) (2.0-8.3) x10*3/uL Absolute Nucleated RBC (0.0-0.012) X10*3/uL Nucleated RBC % (auto) (0.0-0.2) /100WBC Sodium (135-145) mmol/L Potassium (3.3-5.1) mmol/L Chloride (96-108) mmol/L Carbon Dioxide (22-29) mmol/L Anion Gap (12-20) BUN (9-16) mg/dL Creatinine (0.5-1.4) mg/dL Estim Creat Clear Calc Estimated GFR Random Glucose (60-115) mg/dL Calcium (8.4-10.2) mg/dL Magnesium (1.6-2.6) mg/dL Total Bilirubin (0.0-1.0) mg/dL AST (5-37) U/L ALT (0-40) U/L Alkaline Phosphatase (39-117) U/L Troponin I High Sens 26.0 D 27.6 (<3.5-35.0) ng/L B-Natriuretic Peptide 445 H (<100) pg/mL Total Protein (6.5-8.0) g/dL Albumin (3.5-5.0) g/dL COVID-19 (YANELIS) (Negative) COVID-19 Clin Com Independent Interpretation I performed an independent interpretation of an: Plain X-Ray Radiology Impression Discussion of test interpretation with radiology: I have reviewed the radiologist's reading. Radiologist Impression: FINDINGS: The cardiac silhouette is enlarged but stable. There is curvilinear retrosternal calcification in the region of the aortic arch seen on the lateral view. Compared with previous chest CTA this likely corresponds to aortic wall calcification. Hilar and mediastinal contours are otherwise unremarkable. The lungs are clear. No pleural effusion or pneumothorax. Degenerative changes of the spine. XR/XR chest 2V IMPRESSION: Stable enlargement of the cardiac silhouette. No evidence for acute disease in the chest. Critical Care Time Critical Care Time Critical Care Time: Yes Total Critical Care Time: 75 Attestation: I have personally provided critical care time. Time includes review of lab data, radiology results, discussion with consultants, and monitoring for potential decompensation. Intervention performed as documented. Discharge Plan Discharge Clinical Impression: Hypertensive urgency Patient Disposition: Admitted As Inpatient Prescriptions: No Action tamsulosin 0.4 mg capsule 0.4 mg PO BEDTIME Qty: 30 2RF gabapentin 100 mg capsule 100 mg PO TID hydralazine 50 mg tablet 50 mg PO TID Qty: 90 0RF Protocol: Hold for SBP< HOLD for SBP < : 90 losartan 50 mg tablet 100 mg PO QAM Qty: 60 0RF furosemide 40 mg tablet 40 mg PO BID Qty: 60 5RF metoprolol succinate 100 mg tablet extended release 24 hr 100 mg PO DAILY 30 Days Qty: 30 5RF spironolactone 25 mg tablet 25 mg PO DAILY Qty: 30 5RF Protocol: Hold for SBP< HOLD for SBP < : 90 isosorbide mononitrate 60 mg tablet extended release 24 hr 60 mg PO DAILY Qty: 30 5RF Protocol: Hold for SBP< HOLD for SBP < : 90 oxycodone 5 mg tablet 5 mg PO Q6H PRN (Reason: pain) Qty: 10 0RF Rx Instructions: Partial Fill upon patient request. glipizide 10 mg Tablet 10 mg PO BIDWM Qty: 60 0RF insulin degludec [Tresiba FlexTouch U-100] 100 unit/mL (3 mL) insulin pen 25 unit subcut QPM amlodipine 10 mg Tablet 10 mg PO DAILY@1700 30 Days Qty: 30 0RF Protocol: Hold for SBP< HOLD for SBP < : 90 docusate sodium 100 mg Capsule 100 mg PO BEDTIME Qty: 30 0RF Lokelma 5 gram powder in packet 5 g PO Q OTHER DAY Qty: 30 0RF Januvia 100 mg tablet 100 mg PO DAILY sertraline 50 mg tablet 50 mg PO DAILY fluticasone propionate 50 mcg/actuation spray,suspension 2 spray intranasal QAM PRN (Reason: Nasal Congestion) metformin 1,000 mg tablet 1,000 mg PO BID atorvastatin 80 mg tablet 80 mg PO DAILY cyclobenzaprine 5 mg tablet 5 mg PO BEDTIME nabumetone 500 mg tablet 500 mg PO BID
[2022-09-28] MEDS: Nitroglycerin 2 % Oint 1 GM Packet 1 INCH TRANSDERMA (16:46)
[2022-09-28 16:47] LABS: Troponin-I High Sensitivity 27.6 ng/L (<3.5-35.0)
[2022-09-28] MEDS: amLODIPine Besylate 10 MG TABLET PO (18:43)
--- NOTE | 2022-09-28 19:32 | PC.NURSE ---
I assumed car eof the pt at 1900. Pt is resting quietly in bed. Presents A&Ox4, GCS 15, with warm dry skin. At time of initial meeting, BP noted to be 192/80, which is decreased from previous pressures. Pt reports no chest pain, SOB, NVD at this time. Will continue to monitor pt condition and vitals.
--- NOTE | 2022-09-28 19:51 | PHA.MEDREC ---
Pharmacy Consult ? Medication Reconciliation Pharmacy has completed the medication reconciliation.
[2022-09-28] MEDS: hydrALAZINE HCl 20 MG/ML VIAL 10 MG IVPUSH (20:00)
--- NOTE | 2022-09-28 20:00 | P.HPHOSP_ITS ---
History of Present Illness Date of Service: 09/28/22 Attending physician on admission: Lor Quintanilla Chief Complaint: chest pain 67 year old male with history of HFpEF, htn, PAD s/p left BKA, ED, IDDM, LIVE, CKD stage 3, and hyperlipidemia presents to the ED from home for evaluation of chest pain and elevated blood pressures ongoing x 3 days. He feels symptoms started after taking viagra on saturday night. He reports retrosternal chest pressure rated 10/10 without radiation. pain was constant both at rest and with exertion. Has been taking blood pressures at home and reports SBP >200. EMS administered nitro with improvement in pain to 4/10. Currently he denies any chest pain. He states initially he may have had diaphoresis, but no lightheadedness, sob, palpitations, syncope. He is on 7 different antihypertensives and reports compliance though is unable to tell me their names . In the ED, patient has been hypertensive to 214/90, other vitals stable. He received 10mg amlodipine and 1 inch nitro paste applied with slight improvement but BP 209/83 on admission. Hydralazine 10mg ordered by ED but not yet administered. Hematology studies unremarkable. Creatinine 2.08, consistent with baseline. Electrolyte levels normal. Glucose 236. BNP 445, troponin within normal limits x2. Negative for COVID-19. Chest x-ray showing stable enlargement of the cardiac silhouette but no evidence of acute cardiopulmonary disease. He denies any regular alcohol use, cigarette smoking, and denies illicit substance use. Review of Systems Review of Systems: General: No fevers, malaise, unintentional weight loss HEENT: No blurred vision, diplopia. No sore throat, nasal congestion, rhinor lois, sinus pain, ear pain Cardiovascular: +chest pain. No palpitations, or leg edema Respiratory: No shortness of breath, wheezing, cough GI: No abdominal pain, nausea, vomiting, diarrhea, constipation, melena, hematochezia : No dysuria, hematuria, increased urinary frequency, decreased urinary output MSK: No myalgia, back pain Neuro: No headaches, weakness, paresthesias Skin: No rashes or lesions [facility] Medical History (Updated 09/28/22 @ 20:09 by JERMAINE Black) CKD stage 3 due to type 2 diabetes mellitus Diabetes High cholesterol HTN (hypertension) Hyperlipidemia associated with type 2 diabetes mellitus LIVE (iron deficiency anemia) Kidney disease Osteomyelitis PAD (peripheral artery disease) Type 2 diabetes mellitus Family History Other No family history of coronary artery disease Surgical History H/O shoulder surgery History of amputation of right forefoot Hx of amputation Status post transmetatarsal amputation of left foot Social History Household Members: None Housing: Apartment Do you presently have visiting nurse or other home services: Yes Alcohol intake: current Alcohol intake frequency: holidays/special occasions only Alcohol type: beer Patient Tobacco Use Status: Former Tobacco user Quit Date: >20yr ago Tobacco use type: Cigarette Smoked in Last 30 Days: No Use of substances other than those prescribed or required for medical reasons: No Substance Use Type: Crack/Cocaine Advance Directives: Yes Advance Directives on File: Yes Advance Directives Date on File: 02/02/22 service: No Current occupational status: retired [employer] Allergies Allergy/AdvReac Type Severity Reaction Status Date / Time metformin AdvReac Unknown Verified 09/03/22 15:05 Active Medications: Current Medications Acetaminophen (Acetaminophen 325 Mg Tablet) 650 mg PO Q6H PRN PRN Reason: Pain, Mild (Pain Scale 1-3) Docusate Sodium (Docusate Sodium 100 Mg Capsule) 100 mg PO DAILY PRN PRN Reason: Constipation Enoxaparin Sodium (Enoxaparin Sodium 40 Mg/0.4 Ml Syringe) 40 mg SUBCUT Q24H ANNABELLA Ondansetron HCl (Ondansetron Hcl 4 Mg/2 Ml Vial) 4 mg IVPUSH Q8H PRN PRN Reason: Nausea and Vomiting Pharmacy Consult (Consult Rx Perform Med Rec) 1 each MISCELLANE ONCE PRN PRN Reason: Consult order Sodium Chloride (0.9 % Sodium Chloride Flush 3 Ml Syringe) 3 ml IVFLUSH QSHIFT [facility] Home Medications Medication Instructions Recorded Confirmed Last Taken Type atorvastatin 80 mg tablet 80 mg PO BEDTIME 04/27/21 09/28/22 09/27/22 History fluticasone propionate 50 2 spray intranasal DAILY PRN Nasal 04/27/21 09/28/2209/28/23 History mcg/actuation nasal Congestion spray,suspension metformin 1,000 mg tablet 1,000 mg PO BID 04/27/21 09/28/22 09/28/22 History sertraline 50 mg tablet 50 mg PO DAILY 04/27/21 09/28/22 09/28/22 History sitagliptin phosphate 100 mg 100 mg PO DAILY 04/27/21 09/28/22 09/28/22 History tablet (Januvia) insulin degludec 100 unit/mL (3 25 unit subcut BEDTIME 01/03/22 09/28/22 09/27/22 History mL) subcutaneous pen (Tresiba FlexTouch U-100 insulin) gabapentin 100 mg capsule 100 mg PO TID 04/12/22 09/28/22 09/28/22 History cyclobenzaprine 5 mg tablet 5 mg PO BEDTIME 07/17/22 09/28/22 09/27/22 History nabumetone 500 mg tablet 500 mg PO BID 07/17/22 09/28/22 09/28/22 History amlodipine 10 mg tablet 10 mg PO BEDTIME 09/28/22 09/28/22 09/27/22 History hydralazine 50 mg tablet 100 mg PO TID 09/28/22 09/28/22 09/28/22 History losartan 50 mg tablet 100 mg PO DAILY 09/28/22 09/28/22 09/28/22 History sodium zirconium cyclosilicate 5 5 g PO Q2D 09/28/22 09/28/22 09/26/22 History gram oral powder packet (Lokelma) Physical Exam Vital Signs and Narrative: Vital Signs: Last Vital Signs Temp 98.1 F 09/28/22 18:07 Pulse 55 09/28/22 19:31 Resp 14 09/28/22 19:31 BP 192/80 H 09/28/22 19:31 Pulse Ox 97 09/28/22 19:31 O2 Del Method Room Air 09/28/22 19:31 BMI result Body Mass Index 29.5 Constitutional - Awake and Alert, No apparent distress Eyes - PERRLA, EOMI Cardiovascular - S1S2, RRR, No edema Respiratory - Normal lung expansion, Normal respiratory effort, No respiratory distress, CTA bilaterally Gastrointestinal - NT / ND; +BS; No rebound or guarding Extremities - no calf tenderness bilaterally, no swelling Skin - Warm/Dry Neurological - Alert & oriented x3 Psychological - Appropriate affect Results Labs 09/28/22 14:19 09/28/22 14:19 Labs: Laboratory Results - last 24 hr 09/28/22 09/28/22 09/28/22 14:15 14:19 14:19 MCV 93.8 MCH 31.6 MCHC 33.7 RDW 12.0 Plt Count 270 MPV 10.1 Immature Gran % (Auto) 0.6 H Neut % (Auto) 70.8 Lymph % (Auto) 14.0 L [place] % (Auto) 11.6 H Eos % (Auto) 2.4 Baso % (Auto) 0.6 Lymph # (Auto) 1.0 L [place] # (Auto) 0.8 Eos # (Auto) 0.2 Baso # (Auto) 0.0 Abs Immat Gran (auto) 0.04 H Absolute Neuts (auto) 5.1 Absolute Nucleated RBC 0.000 Nucleated RBC % (auto) 0.0 Anion Gap 10 L Estim Creat Clear Calc 37.1 Estimated GFR 32 Random Glucose 236 H Calcium 8.8 Magnesium 1.6 Total Bilirubin 0.3 AST 19 ALT 20 Alkaline Phosphatase 84 Troponin I High Sens B-Natriuretic Peptide Total Protein 6.0 L Albumin 2.9 L COVID-19 (YANELIS) Negative COVID-19 Clin Com See Note 09/28/22 09/28/22 09/28/22 14:19 14:19 16:13 MCV MCH MCHC RDW Plt Count MPV Immature Gran % (Auto) Neut % (Auto) Lymph % (Auto) [place] % (Auto) Eos % (Auto) Baso % (Auto) Lymph # (Auto) [place] # (Auto) Eos # (Auto) Baso # (Auto) Abs Immat Gran (auto) Absolute Neuts (auto) Absolute Nucleated RBC Nucleated RBC % (auto) Anion Gap Estim Creat Clear Calc Estimated GFR Random Glucose Calcium Magnesium Total Bilirubin AST ALT Alkaline Phosphatase Troponin I High Sens 26.0 D 27.6 B-Natriuretic Peptide 445 H Total Protein Albumin COVID-19 (YANELIS) COVID-19 Clin Com Imaging Radiologist's Impressions: Impressions Chest X-Ray 09/28/22 14:42 IMPRESSION: Stable enlargement of the cardiac silhouette. No evidence for acute disease in the chest. Assessment and Plan (1) Hypertensive urgency: Status: Acute Plan 67 year old male with history of HFpEF, htn, PAD s/p left BKA, ED, IDDM, LIVE, CKD stage 3, and hyperlipidemia admitted for hypertensive urgency. #Hypertensive urgency -Trops WNL x 2, EKG non ischemic -reports compliance with antihypertensives (currently takes spironolactone, metoprolol, losartan, isosorbide, hydralazine, furosemide, and amlodipine) -gien 1 inch nitropaste in ED and amlodipine 10mg. IV hydralazine 10mg prn SBP >180 -Hold po hydralazine for now. Continue other home antihypertensives above -Evidence of possible LORENZO on U/S 01/30. Repeat renal doppler -Echo -Cardiology consult -cardiac diet -monitor on telemetry # insulin-dependent type 2 diabetes-with hyperglycemia -dose adjusted basal insulin -Humalog on sliding scale -POC glucose -diabetic diet -hold oral antihyperglycemics # PAD/HLD -continue statin #CKD stage 3 -renal function baseline DVT prophylaxis-Lovenox Full code Patient requires inpatient stay at least 2 midnights for management of hypertensive urgency requiring IV antihypertensives and close cardiac monitoring as well as expert consultation Time Spent With Patient Time: Total time managing care of this patient today ____ minutes. Quality Stroke Does the patient have a stroke diagnosis?: No VTE Prior VTE?: No VTE Risk Level:: Medical - moderate - high VTE Device Contraindication: Treatment Not Indicated VTE Drug Contraindication: N/A - Med Ordered
[2022-09-28] MEDS: Enoxaparin Sodium 40 MG/0.4 ML SYRINGE SUBCUT (20:49)
[2022-09-28] MEDS: Sodium Zirconium Cyclosilicate 5 GM POWD.PACK PO (20:49)
--- NOTE | 2022-09-28 21:26 | PC.NURSE ---
Attempted to call report twice on the pt. Sent floor RN a tiger text to coordinate report.
[2022-09-29] MEDS: Docusate Sodium 100 MG CAPSULE PO ×2 (00:06→20:18)
[2022-09-29] MEDS: Gabapentin 100 MG CAPSULE PO ×4 (00:06→20:19)
[2022-09-29] MEDS: Atorvastatin Calcium 80 MG TABLET PO ×2 (00:06→20:18)
[2022-09-29] MEDS: Cyclobenzaprine HCl 5 MG TABLET PO ×2 (00:07→20:18)
[2022-09-29] MEDS: Furosemide 40 MG TABLET PO ×3 (00:07→20:18)
[2022-09-29] MEDS: hydrALAZINE HCl 50 MG TABLET 100 MG PO ×4 (00:08→20:18)
[2022-09-29] MEDS: Tamsulosin HCL 0.4 MG CAPSULE PO ×2 (00:08→20:18)
[2022-09-29 00:22] LABS: Glucose, Whole Blood 205 mg/dL (60-115)
[2022-09-29] MEDS: Insulin Lispro 100 UNIT/ML 3 ML VIAL SUBCUT ×3 (01:21→20:19)
[2022-09-29] MEDS: Insulin Glargine,Hum.rec.anlog 100 UNIT/ML 10 ML VIAL 17 UNIT SUBCUT ×2 (01:22→20:19)
[2022-09-29] MEDS: 0.9 % Sodium Chloride Flush 3 ML SYRINGE IVFLUSH ×2 (01:23→20:19)
[2022-09-29 03:20] VITALS: BP 153/63; PULSE 58; RESP 17; TEMP 36.2; O2SAT 94
[2022-09-29 07:20] LABS: MANUAL DIFF FLAG NO
[2022-09-29 07:23] LABS: Basophils Percent Auto 0.4 % (0-2); Eosinophils Absolute Auto 0.2 X10*3/uL (0.0-0.4); Eosinophils Percent Auto 2.6 % (0-4); Hematocrit 28.2 % (42.0-52.0); Hemoglobin 9.5 g/dl (14.0-18.0); Imm Gran Abs Auto 0.03 X10*3/uL (0.00-0.03); Imm Gran Pct Auto 0.4 % (0.0-0.4); Lymphocytes Absolute Auto 1.6 X10*3/uL (1.2-4.9); Lymphocytes Percent Auto 19.9 % (20-40); Mean Corpuscular HGB Conc 33.7 g/dl (31.0-36.0); Mean Corpuscular Volume 94.9 fL (80.0-98.0); Mean Platelet Volume 10.2 fL (9.4-12.4); Monocytes Percent Auto 13.2 % (2-11); Neutrophils Absolute Auto 4.9 x10*3/uL (2.0-8.3); Neutrophils Percent Auto 63.5 % (45-73); Platelet Count 266 X10*3/uL (160-400); Red Blood Count 2.97 X10*6/uL (4.60-5.80); White Blood Count 7.8 X10*3/uL (4.8-10.8)
[2022-09-29 07:43] LABS: Anion Gap 11 (12-20); Blood Urea Nitrogen 41 mg/dL (9-16); Calcium 8.9 mg/dL (8.4-10.2); Carbon Dioxide 25 mmol/L (22-29); Chloride 112 mmol/L (96-108); Creatinine Clr Calc Pharmacy 35.4; Estimated Glomerular Filt Rate 30; Glucose Random 96 mg/dL (60-115); Potassium 4.2 mmol/L (3.3-5.1); Sodium 144 mmol/L (135-145)
[2022-09-29 08:00] VITALS: BP 140/76; PULSE 55; RESP 17; TEMP 36.5; O2SAT 97
[2022-09-29 08:07] LABS: Glucose, Whole Blood 117 mg/dL (60-115)
[2022-09-29] MEDS: Isosorbide Mononitrate 60 MG TAB.ER.24H PO (08:45)
[2022-09-29] MEDS: Metoprolol Succinate ER 100 MG TAB.ER.24H PO (08:46)
[2022-09-29] MEDS: Sertraline HCL 50 MG TABLET PO (08:46)
[2022-09-29] MEDS: Losartan Potassium 50 MG TABLET 100 MG PO (08:46)
[2022-09-29] MEDS: Spironolactone 25 MG TABLET PO (08:46)
--- NOTE | 2022-09-29 10:45 | MHC.CM.PN ---
IMM 09/29. Pt admitted with dx hypertensive urgency. Pt lives alone is independent/self-care, uses a cane, walker, and wheelchair and has [employer] services. D/C plan pending but home is the goal with resumption of [employer] services, and possibly new VNA. Pt has no preference for VNA. Pts family will transport. HCP on file and verified. PCP: Marline Degroot vax: x 3
[2022-09-29 11:17] VITALS: BP 139/76; PULSE 69; RESP 18; TEMP 36.6; O2SAT 96
[2022-09-29 11:27] LABS: Glucose, Whole Blood 324 mg/dL (60-115)
--- NOTE | 2022-09-29 12:32 | P.PNIM_ITS ---
Subjective Subjective Date of Service: 09/29/22 Interval History: Denies chest pain, no palpitations, no shortness of breath, no headache, no dizziness, tolerating diet denies nausea, no vomiting, no abdominal pain no diarrhea no other acute issues requesting for wheelchair. Review of Systems All other system reviewed and negative Physical Exam Vital Signs: Vital Signs: Last Vital Signs Temp 97.8 F 09/29/22 11:17 Pulse 69 09/29/22 11:17 Resp 18 09/29/22 11:17 BP 139/76 09/29/22 11:17 Pulse Ox 96 09/29/22 11:17 O2 Del Method Room Air 09/29/22 11:17 BMI result Body Mass Index 29.5 Const: Other: General awake aler t x3, in no acute distress.? Neck is supple no JVD. CV S? regular rate rh ythm, Respiratory lungs clear to aus cultation, no resp iratory distress, no wheeze, no rhon chi. Gastrointesti nal abdomen soft, nontender, bowel s ounds audible, no guarding , no rigi dity. Extremities left BKA Neuro no nfocal Skin no cynthia h Psych appropriat e affect Objective Data Active Medications Acetaminophen (Acetaminophen 325 Mg Tablet) 650 mg PO Q6H PRN PRN Reason: Pain, Mild (Pain Scale 1-3) Amlodipine Besylate (Amlodipine Besylate 10 Mg Tablet) 10 mg PO BEDTIME [facility]; Protocol Atorvastatin Calcium (Atorvastatin Calcium 80 Mg Tablet) 80 mg PO BEDTIME [facility] [place] Last Admin: 09/29/22 00:06 Dose: 80 mg Documented By: MIMA Cyclobenzaprine HCl (Cyclobenzaprine Hcl 5 Mg Tablet) 5 mg PO BEDTIME [facility] [place] Last Admin: 09/29/22 00:07 Dose: 5 mg Documented By: MIMA Dextrose (Dextrose 50 % 25 Gm/50 Ml Syringe) 25 gm IVPUSH Q15M PRN; Protocol PRN Reason: per Hypoglycemia Standing Ord. Docusate Sodium (Docusate Sodium 100 Mg Capsule) 100 mg PO DAILY PRN PRN Reason: Constipation Docusate Sodium (Docusate Sodium 100 Mg Capsule) 100 mg PO BEDTIME [facility] [place] Last Admin: 09/29/22 00:06 Dose: 100 mg Documented By: MIMA Enoxaparin Sodium (Enoxaparin Sodium 40 Mg/0.4 Ml Syringe) 40 mg SUBCUT Q24H [facility] [place] Last Admin: 09/28/22 20:49 Dose: 40 mg Documented By: KHADRA Fluticasone Propionate (Fluticasone Propionate Nasal 16 Gm [place]) 2 spray NOSTRIL-B DAILY PRN PRN Reason: Nasal Congestion Furosemide (Furosemide 40 Mg Tablet) 40 mg PO BID [facility] [place]; Protocol Last Admin: 09/29/22 08:46 Dose: 40 mg Documented By: NENO Gabapentin (Gabapentin 100 Mg Capsule) 100 mg PO TID [facility] [place] Last Admin: 09/29/22 08:45 Dose: 100 mg Documented By: NENO Glucose (Glucose Gel 15 Gm Gel..Gram.) 15 gm PO Q15M PRN; Protocol PRN Reason: per Hypoglycemia Standing Ord. Hydralazine HCl (Hydralazine Hcl 50 Mg Tablet) 100 mg PO TID [facility] [place]; Protocol Last Admin: 09/29/22 08:46 Dose: 100 mg Documented By: NENO Insulin Glargine (Insulin Glargine,Hum.Rec.Anlog 100 Unit/Ml 10 Ml Vial) 17 unit SUBCUT BEDTIME [facility] [place] Last Admin: 09/29/22 01:22 Dose: 17 unit Documented By: MIMA Insulin Human Lispro (Insulin Lispro 100 Unit/Ml 3 Ml Vial) 0 unit SUBCUT Q IDACHS [facility] [place]; Protocol Last Admin: 09/29/22 12:23 Dose: 8 unit Documented By: NENO Isosorbide Mononitrate (Isosorbide Mononitrate 60 Mg Tab.Er.24h) 60 mg PO DAILY [facility] [place]; Protocol Last Admin: 09/29/22 08:45 Dose: 60 mg Documented By: NENO Losartan Potassium (Losartan Potassium 50 Mg Tablet) 100 mg PO DAILY [facility] [place]; Protocol Last Admin: 09/29/22 08:46 Dose: 100 mg Documented By: NENO Metoprolol Succinate (Metoprolol Succinate Er 100 Mg Tab.Er.24h) 100 mg PO DAILY [facility] [place]; Protocol Last Admin: 09/29/22 08:46 Dose: 100 mg Documented By: NENO Ondansetron HCl (Ondansetron Hcl 4 Mg/2 Ml Vial) 4 mg IVPUSH Q8H PRN PRN Reason: Nausea and Vomiting Pharmacy Consult (Consult Rx Perform Med Rec) 1 each MISCELLANE ONCE PRN PRN Reason: Consult order Sertraline HCl (Sertraline Hcl 50 Mg Tablet) 50 mg PO DAILY [facility] [place] Last Admin: 09/29/22 08:46 Dose: 50 mg Documented By: NENO Sodium Chloride (0.9 % Sodium Chloride Flush 3 Ml Syringe) 3 ml IVFLUSH QSHIFT [facility] [place] Last Admin: 09/29/22 09:26 Dose: Not Given Documented By: NENO Non-Admin Reason: No Access Sodium Zirconium Cyclosilicate (Sodium Zirconium Cyclosilicate 5 Gm Powd.Pack) 5 gm PO Q2D [facility] [place] Last Admin: 09/28/22 20:49 Dose: 5 gm Documented By: KHADRA Spironolactone (Spironolactone 25 Mg Tablet) 25 mg PO DAILY [facility] [place]; Protocol Last Admin: 09/29/22 08:46 Dose: 25 mg Documented By: NENO Tamsulosin HCl (Tamsulosin Hcl 0.4 Mg Capsule) 0.4 mg PO BEDTIME [facility] [place] Last Admin: 09/29/22 00:08 Dose: 0.4 mg Documented By: MIMA Labs 09/29/22 06:46 09/29/22 06:46 Labs: Laboratory Results - last 24 hr 09/28/22 09/28/22 09/28/22 14:15 14:19 14:19 MCV 93.8 MCH 31.6 MCHC 33.7 RDW 12.0 Plt Count 270 MPV 10.1 Immature Gran % (Auto) 0.6 H Neut % (Auto) 70.8 Lymph % (Auto) 14.0 L [place] % (Auto) 11.6 H Eos % (Auto) 2.4 Baso % (Auto) 0.6 Lymph # (Auto) 1.0 L [place] # (Auto) 0.8 Eos # (Auto) 0.2 Baso # (Auto) 0.0 Abs Immat Gran (auto) 0.04 H Absolute Neuts (auto) 5.1 Absolute Nucleated RBC 0.000 Nucleated RBC % (auto) 0.0 Anion Gap 10 L Estim Creat Clear Calc 37.1 Estimated GFR 32 POC Glucose Random Glucose 236 H Calcium 8.8 Magnesium 1.6 Total Bilirubin 0.3 AST 19 ALT 20 Alkaline Phosphatase 84 Troponin I High Sens B-Natriuretic Peptide Total Protein 6.0 L Albumin 2.9 L COVID-19 (YANELIS) Negative COVID-19 [facility] See Note 09/28/22 09/28/22 09/28/22 14:19 14:19 16:13 MCV MCH MCHC RDW Plt Count MPV Immature Gran % (Auto) Neut % (Auto) Lymph % (Auto) [place] % (Auto) Eos % (Auto) Baso % (Auto) Lymph # (Auto) [place] # (Auto) Eos # (Auto) Baso # (Auto) Abs Immat Gran (auto) Absolute Neuts (auto) Absolute Nucleated RBC Nucleated RBC % (auto) Anion Gap Estim Creat Clear Calc Estimated GFR POC Glucose Random Glucose Calcium Magnesium Total Bilirubin AST ALT Alkaline Phosphatase Troponin I High Sens 26.0 D 27.6 B-Natriuretic Peptide 445 H Total Protein Albumin COVID-19 (YANELIS) COVID-[employer] 09/29/22 09/29/22 09/29/22 00:19 06:46 06:46 MCV 94.9 MCH 32.0 MCHC 33.7 RDW 12.0 Plt Count 266 MPV 10.2 Immature Gran % (Auto) 0.4 Neut % (Auto) 63.5 Lymph % (Auto) 19.9 L [place] % (Auto) 13.2 H Eos % (Auto) 2.6 Baso % (Auto) 0.4 Lymph # (Auto) 1.6 [place] # (Auto) 1.0 Eos # (Auto) 0.2 Baso # (Auto) 0.0 Abs Immat Gran (auto) 0.03 Absolute Neuts (auto) 4.9 Absolute Nucleated RBC 0.000 Nucleated RBC % (auto) 0.0 Anion Gap 11 L Estim Creat Clear Calc 35.4 Estimated GFR 30 POC Glucose 205 H Random Glucose 96 Calcium 8.9 Magnesium Total Bilirubin AST ALT Alkaline Phosphatase Troponin I High Sens B-Natriuretic Peptide Total Protein Albumin COVID-19 (YANELIS) COVID-19 Performance Indicator 09/29/22 09/29/22 08:04 11:23 MCV MCH MCHC RDW Plt Count MPV Immature Gran % (Auto) Neut % (Auto) Lymph % (Auto) [place] % (Auto) Eos % (Auto) Baso % (Auto) Lymph # (Auto) [place] # (Auto) Eos # (Auto) Baso # (Auto) Abs Immat Gran (auto) Absolute Neuts (auto) Absolute Nucleated RBC Nucleated RBC % (auto) Anion Gap Estim Creat Clear Calc Estimated GFR POC Glucose 117 H 324 H Random Glucose Calcium Magnesium Total Bilirubin AST ALT Alkaline Phosphatase Troponin I High Sens B-Natriuretic Peptide Total Protein Albumin COVID-19 (YANELIS) COVID-19 Clin Com Assessment and Plan (1) Hypertensive urgency: Status: Acute Plan 67 year old male with history of HFpEF, htn, PAD s/p left BKA, ED, IDDM, LIVE, CKD stage 3, and hyperlipidemia admitted for hypertensive urgency. #Hypertensive urgency -no recurrent chest discomfort of shortness of breath -Trops WNL x 2, EKG non ischemic -reports compliance with antihypertensives (currently takes spironolactone, metoprolol, losartan, isosorbide, hydralazine, furosemide, and amlodipine) -treated with 1 inch nitropaste and amlodipine 10mg in ED and placed back on home medications this morning BP improved and remained stable, will follow blood pressure 24 hours on current medications -renal doppler suggestive of right renal artery stenosis follow-up CT or MRA recommended Will consult Nephrology -Echo ordered -case discussed with Dr. Moody from Cardiology he recommend outpatient cardiology workup. # insulin-dependent type 2 diabetes-with hyperglycemia -elevated blood sugars, continue basal insulin,Humalog on sliding scale,POC glucose -diabetic diet -resume oral antihyperglycemics # PAD/HLD -continue statin #CKD stage 3 -renal function baseline DVT prophylaxis-Lovenox Full code Patient requires continued inpatient stay for management of hypertensive urgency requiring IV antihypertensives and close cardiac monitoring as well as expert consultation Time Spent With Patient Time: Total time managing care of this patient today ____ minutes. Quality Stroke Does the patient have a stroke diagnosis?: No VTE Prior VTE?: No VTE Risk Level:: Medical - moderate - high VTE Device Contraindication: Treatment Not Indicated VTE Drug Contraindication: N/A - Med Ordered
--- NOTE | 2022-09-29 12:44 | PM.CNCAR ---
History of Present Illness History of Present Illness Date of Service: 09/29/22 Requesting physician: Tirge Mayorga Chief complaint: hypertensive urgency Narrative: [age] year gentleman with known history of chronic kidney disease, anemia, peripheral arterial disease with below-knee amputation on the left and right transmetatarsal amputation, heart failure preserved ejection fraction, hypertension, diabetes and hyperlipidemia who is presenting with elevated blood pressures and chest discomfort. He said he started experiencing some tightness in his chest and came to the emergency department. He had significantly elevated blood pressures with systolics as high as 200 mm Hg. He said he was taking his medications his blood pressure has improved and he has no symptoms. His high sensitivity troponin levels are 26 and 27. He had Lexiscan in December 2021 which was normal. Overall feeling good now. [facility] Past Medical History Medical History CKD stage 3 due to type 2 diabetes mellitus Diabetes High cholesterol HTN (hypertension) Hyperlipidemia associated with type 2 diabetes mellitus LIVE (iron deficiency anemia) Kidney disease Osteomyelitis PAD (peripheral artery disease) Type 2 diabetes mellitus Family History Family History Other No family history of coronary artery disease Surgical History Surgical History H/O shoulder surgery History of amputation of right forefoot Hx of amputation Status post transmetatarsal amputation of left foot Social History Social History Household Members: None Housing: Apartment Do you presently have visiting nurse or other home services: Yes Alcohol intake: current Alcohol intake frequency: holidays/special occasions only Alcohol type: beer Patient Tobacco Use Status: Former Tobacco user Quit Date: >20yr ago Tobacco use type: Cigarette Substance Use Type: Crack/Cocaine Advance Directives Date on File: 02/02/22 service: No Current occupational status: retired Meds Allergies Allergy/AdvReac Type Severity Reaction Status Date / Time metformin AdvReac Unknown Verified 09/29/22 10:26 Active Medications: Current Medications Acetaminophen (Acetaminophen 325 Mg Tablet) 650 mg PO Q6H PRN PRN Reason: Pain, Mild (Pain Scale 1-3) Amlodipine Besylate (Amlodipine Besylate 10 Mg Tablet) 10 mg PO BEDTIME ANNABELLA; Protocol Atorvastatin Calcium (Atorvastatin Calcium 80 Mg Tablet) 80 mg PO BEDTIME ANNABELLA Last Admin: 09/29/22 00:06 Dose: 80 mg Cyclobenzaprine HCl (Cyclobenzaprine Hcl 5 Mg Tablet) 5 mg PO BEDTIME ANNABELLA Last Admin: 09/29/22 00:07 Dose: 5 mg Dextrose (Dextrose 50 % 25 Gm/50 Ml Syringe) 25 gm IVPUSH Q15M PRN; Protocol PRN Reason: per Hypoglycemia Standing Ord. Docusate Sodium (Docusate Sodium 100 Mg Capsule) 100 mg PO DAILY PRN PRN Reason: Constipation Docusate Sodium (Docusate Sodium 100 Mg Capsule) 100 mg PO BEDTIME ANNABELLA Last Admin: 09/29/22 00:06 Dose: 100 mg Enoxaparin Sodium (Enoxaparin Sodium 40 Mg/0.4 Ml Syringe) 40 mg SUBCUT Q24H ANNABELLA Last Admin: 09/28/22 20:49 Dose: 40 mg Fluticasone Propionate (Fluticasone Propionate Nasal 16 Gm [place]) 2 spray NOSTRIL-B DAILY PRN PRN Reason: Nasal Congestion Furosemide (Furosemide 40 Mg Tablet) 40 mg PO BID ANNABELLA; Protocol Last Admin: 09/29/22 08:46 Dose: 40 mg Gabapentin (Gabapentin 100 Mg Capsule) 100 mg PO TID [facility] Last Admin: 09/29/22 08:45 Dose: 100 mg Glucose (Glucose Gel 15 Gm Gel..Gram.) 15 gm PO Q15M PRN; Protocol PRN Reason: per Hypoglycemia Standing Ord. Hydralazine HCl (Hydralazine Hcl 50 Mg Tablet) 100 mg PO TID ANNABELLA; Protocol Last Admin: 09/29/22 08:46 Dose: 100 mg Insulin Glargine (Insulin Glargine,Hum.Rec.Anlog 100 Unit/Ml 10 Ml Vial) 17 unit SUBCUT BEDTIME ANNABELLA Last Admin: 09/29/22 01:22 Dose: 17 unit Insulin Human Lispro (Insulin Lispro 100 Unit/Ml 3 Ml Vial) 0 unit SUBCUT QIDACHS ANNABELLA; Protocol Last Admin: 09/29/22 12:23 Dose: 8 unit Isosorbide Mononitrate (Isosorbide Mononitrate 60 Mg Tab.Er.24h) 60 mg PO DAILY ANNABELLA; Protocol Last Admin: 09/29/22 08:45 Dose: 60 mg Losartan Potassium (Losartan Potassium 50 Mg Tablet) 100 mg PO DAILY [facility]; Protocol Last Admin: 09/29/22 08:46 Dose: 100 mg Metoprolol Succinate (Metoprolol Succinate Er 100 Mg Tab.Er.24h) 100 mg PO DAILY [facility]; Protocol Last Admin: 09/29/22 08:46 Dose: 100 mg Ondansetron HCl (Ondansetron Hcl 4 Mg/2 Ml Vial) 4 mg IVPUSH Q8H PRN PRN Reason: Nausea and Vomiting Pharmacy Consult (Consult Rx Perform Med Rec) 1 each MISCELLANE ONCE PRN PRN Reason: Consult order Sertraline HCl (Sertraline Hcl 50 Mg Tablet) 50 mg PO DAILY [facility] Last Admin: 09/29/22 08:46 Dose: 50 mg Sodium Chloride (0.9 % Sodium Chloride Flush 3 Ml Syringe) 3 ml IVFLUSH QSHIFT [facility] Last Admin: 09/29/22 09:26 Dose: Not Given Sodium Zirconium Cyclosilicate (Sodium Zirconium Cyclosilicate 5 Gm Powd.Pack) 5 gm PO Q2D [facility] Last Admin: 09/28/22 20:49 Dose: 5 gm Spironolactone (Spironolactone 25 Mg Tablet) 25 mg PO DAILY [facility]; Protocol Last Admin: 09/29/22 08:46 Dose: 25 mg Tamsulosin HCl (Tamsulosin Hcl 0.4 Mg Capsule) 0.4 mg PO BEDTIME [facility] Last Admin: 09/29/22 00:08 Dose: 0.4 mg Home Medications Medication Instructions Recorded Confirmed Last Taken Type atorvastatin 80 mg tablet 80 mg PO BEDTIME 04/27/21 09/28/22 09/27/22 History fluticasone propionate 50 2 spray intranasal DAILY PRN Nasal 04/27/21 09/28/22 09/28/22 History mcg/actuation nasal Congestion spray,suspension metformin 1,000 mg tablet 1,000 mg PO BID 04/27/21 09/28/22 09/28/22 History sertraline 50 mg tablet 50 mg PO DAILY 04/27/21 09/28/22 09/28/22 History sitagliptin phosphate 100 mg 100 mg PO DAILY 04/27/21 09/28/22 09/28/22 History tablet (Januvia) insulin degludec 100 unit/mL (3 25 unit subcut BEDTIME 01/03/22 09/28/22 09/27/22 History mL) subcutaneous pen (Tresiba FlexTouch U-100 insulin) gabapentin 100 mg capsule 100 mg PO TID 04/12/22 09/28/22 09/28/22 History cyclobenzaprine 5 mg tablet 5 mg PO BEDTIME 07/17/22 09/28/22 09/27/22 History nabumetone 500 mg tablet 500 mg PO BID 07/17/22 09/28/22 09/28/22 History amlodipine 10 mg tablet 10 mg PO BEDTIME 09/28/22 09/28/22 09/27/22 History hydralazine 50 mg tablet 100 mg PO TID 09/28/22 09/28/22 09/28/22 History losartan 50 mg tablet 100 mg PO DAILY 09/28/22 09/28/22 09/28/22 History sodium zirconium cyclosilicate 5 5 g PO Q2D 09/28/22 09/28/22 09/26/22 History gram oral powder packet (Lokelma) Physical Exam Vital Signs: Vital Signs: Last Vital Signs Temp 97.8 F 09/29/22 11:17 Pulse 69 09/29/22 11:17 Resp 18 09/29/22 11:17 BP 139/76 09/29/22 11:17 Pulse Ox 96 09/29/22 11:17 O2 Del Method Room Air 09/29/22 11:17 BMI result Body Mass Index 29.5 GENERAL APPEARANCE: in no acute distress, pleasant. NECK: no carotid bruit, no jugular venous distention. SKIN: no suspicious lesions, warm and dry. HEART: no murmurs, regular rate and rhythm. LUNGS: clear to auscultation bilaterally. ABDOMEN: soft, nontender. EXTREMITIES: Left below-knee amputation, right transmetatarsal amputation. PERIPHERAL PULSES: equal. NEUROLOGIC: No gross deficits, AAO X 3 Objective Labs and Meds 09/29/22 06:46 09/29/22 06:46 Lab results: Laboratory Results - last 24 hr 09/28/22 09/28/22 09/28/22 14:15 14:19 14:19 WBC 7.2 RBC 2.91 L Hgb 9.2 L Hct 27.3 L MCV 93.8 MCH 31.6 MCHC 33.7 RDW 12.0 Plt Count 270 MPV 10.1 Immature Gran % (Auto) 0.6 H Neut % (Auto) 70.8 Lymph % (Auto) 14.0 L [place] % (Auto) 11.6 H Eos % (Auto) 2.4 Baso % (Auto) 0.6 Lymph # (Auto) 1.0 L [place] # (Auto) 0.8 Eos # (Auto) 0.2 Baso # (Auto) 0.0 Abs Immat Gran (auto) 0.04 H Absolute Neuts (auto) 5.1 Absolute Nucleated RBC 0.000 Nucleated RBC % (auto) 0.0 Sodium 140 Potassium 4.3 Chloride 110 H Carbon Dioxide 24 Anion Gap 10 L BUN 41 H Creatinine 2.08 H Estim Creat Clear Calc 37.1 Estimated GFR 32 POC Glucose Random Glucose 236 H Calcium 8.8 Magnesium 1.6 Total Bilirubin 0.3 AST 19 ALT 20 Alkaline Phosphatase 84 Troponin I High Sens B-Natriuretic Peptide Total Protein 6.0 L Albumin 2.9 L COVID-19 (YANELIS) Negative COVID-19 [employer] See Note 09/28/22 09/28/22 09/28/22 14:19 14:19 16:13 WBC RBC Hgb Hct MCV MCH MCHC RDW Plt Count MPV Immature Gran % (Auto) Neut % (Auto) Lymph % (Auto) [place] % (Auto) Eos % (Auto) Baso % (Auto) Lymph # (Auto) [place] # (Auto) Eos # (Auto) Baso # (Auto) Abs Immat Gran (auto) Absolute Neuts (auto) Absolute Nucleated RBC Nucleated RBC % (auto) Sodium Potassium Chloride Carbon Dioxide Anion Gap BUN Creatinine Estim Creat Clear Calc Estimated GFR POC Glucose Random Glucose Calcium Magnesium Total Bilirubin AST ALT Alkaline Phosphatase Troponin I High Sens 26.0 D 27.6 B-Natriuretic Peptide 445 H Total Protein Albumin COVID-19 (YANELIS) COVID-19 Rad 09/29/22 09/29/22 09/29/22 00:19 06:46 06:46 WBC 7.8 RBC 2.97 L Hgb 9.5 L Hct 28.2 L MCV 94.9 MCH 32.0 MCHC 33.7 RDW 12.0 Plt Count 266 MPV 10.2 Immature Gran % (Auto) 0.4 Neut % (Auto) 63.5 Lymph % (Auto) 19.9 L [place] % (Auto) 13.2 H Eos % (Auto) 2.6 Baso % (Auto) 0.4 Lymph # (Auto) 1.6 [place] # (Auto) 1.0 Eos # (Auto) 0.2 Baso # (Auto) 0.0 Abs Immat Gran (auto) 0.03 Absolute Neuts (auto) 4.9 Absolute Nucleated RBC 0.000 Nucleated RBC % (auto) 0.0 Sodium 144 Potassium 4.2 Chloride 112 H Carbon Dioxide 25 Anion Gap 11 L BUN 41 H Creatinine 2.18 H Estim Creat Clear Calc 35.4 Estimated GFR 30 POC Glucose 205 H Random Glucose 96 Calcium 8.9 Magnesium Total Bilirubin AST ALT Alkaline Phosphatase Troponin I High Sens B-Natriuretic Peptide Total Protein Albumin COVID-19 (YANELIS) COVID-19 Rad 09/29/22 09/29/22 08:04 11:23 WBC RBC Hgb Hct MCV MCH MCHC RDW Plt Count MPV Immature Gran % (Auto) Neut % (Auto) Lymph % (Auto) [place] % (Auto) Eos % (Auto) Baso % (Auto) Lymph # (Auto) [place] # (Auto) Eos # (Auto) Baso # (Auto) Abs Immat Gran (auto) Absolute Neuts (auto) Absolute Nucleated RBC Nucleated RBC % (auto) Sodium Potassium Chloride Carbon Dioxide Anion Gap BUN Creatinine Estim Creat Clear Calc Estimated GFR POC Glucose 117 H 324 H Random Glucose Calcium Magnesium Total Bilirubin AST ALT Alkaline Phosphatase Troponin I High Sens B-Natriuretic Peptide Total Protein Albumin COVID-19 (YANELIS) COVID-19 [employer] Imaging Radiologist's impression: Impressions Chest X-Ray 09/28/22 14:42 IMPRESSION: Stable enlargement of the cardiac silhouette. No evidence for acute disease in the chest. Renal Ultrasound 09/29/22 07:56 IMPRESSION: Morphologically normal-appearing kidneys. Increased peak systolic velocity in the right mid renal artery, upper renal artery to aorta ratio and slightly elevated segmental resistive indices in the right kidney suggestive of right renal artery stenosis. Follow-up CTA or MRA should be considered. Direct left renal artery evaluation is normal. Slightly elevated resistive indices of the segmental renal arteries in the left kidney. Assessment and Plan (1) Hypertensive urgency: Status: Acute Plan 67-year-old gentleman presenting with hypertensive urgency and some chest tightness. No troponin elevation is noticed. No dynamic EKG changes. Chest discomfort likely due to elevated blood pressures. His home medications have been resumed and his blood pressure has improved significantly. He is endorsing compliance with medications. Monitor on the current medications and if stable he can be discharged home. Ideally he should be on baby aspirin unless there are some bleeding concerns in the past. We will do further workup as outpatient. Thank you for allowing me to participate in the care of your patient. Please feel free to contact me if you have any questions. Time Spent With Patient Time: Total time managing care of this patient today ____ minutes. Procedures Date of Service Date of Service: 09/29/22
[2022-09-29 15:26] VITALS: BP 162/52; PULSE 58; RESP 14; TEMP 36.6; O2SAT 96
[2022-09-29 15:44] LABS: Glucose, Whole Blood 81 mg/dL (60-115)
[2022-09-29 19:17] VITALS: BP 178/69; PULSE 62; RESP 20; TEMP 35.9; O2SAT 96
[2022-09-29 20:03] LABS: Glucose, Whole Blood 308 mg/dL (60-115)
[2022-09-29 20:14] VITALS: BP 162/58; PULSE 61; RESP 14; TEMP 36.3; O2SAT 94
[2022-09-29] MEDS: Enoxaparin Sodium 40 MG/0.4 ML SYRINGE SUBCUT (20:18)
[2022-09-30] VITALS: BP 180/79; PULSE 60; RESP 20; TEMP 36.1; O2SAT 96
--- NOTE | 2022-09-30 00:27 | PC.NURSE ---
Covering Dr. Quintanilla notified of HTN 180/79 HR 60 despite scheduled evening hydralazine. Pt denies being symptomatic. Written orders for continue to monitor.
[2022-09-30 03:06] VITALS: BP 159/64; PULSE 60; RESP 20; TEMP 36.1; O2SAT 94
[2022-09-30 07:42] VITALS: BP 170/80; PULSE 84; RESP 20; TEMP 36.6; O2SAT 94
--- NOTE | 2022-09-30 07:54 | PM.CNNEP ---
History of Present Illness Reason for Consult Consult date: 09/30/22 Chief Complaint Chief complaint: hypertensive urgency History of Present Illness Narrative: I was asked to see patient to assist in evaluation and management of this patient who has a history of CKD and was admitted with elevated blood pressure. In summary, the patient is a 67-year-old gentleman with history of diabetes,hypertension, stage-3 chronic kidney disease underwent arenal Doppler US which showed possible right renal artery stenosis. AT the time of the consultation he denies fever, chills, nausea, vomiting or diarrhea,. He denies chest pain or shortness of breath. Renal US showed morphologically normal-appearing kidneys with increased peak systolic velocity in the right mid renal artery, upper renal artery to aorta ratio and slightly elevated segmental resistive indices in the right kidney suggestive of right renal artery stenosis. Review of Systems Review of Systems 10 points ROS negative except for peretinent in [facility] Past Medical History Medical History (Updated 09/30/22 @ 07:58 by Zaheer Christie MD) CKD stage 3 due to type 2 diabetes mellitus Diabetes High cholesterol HTN (hypertension) Hyperlipidemia associated with type 2 diabetes mellitus LIVE (iron deficiency anemia) Kidney disease Osteomyelitis PAD (peripheral artery disease) Type 2 diabetes mellitus Family History Family History Other No family history of coronary artery disease Surgical History Surgical History H/O shoulder surgery History of amputation of right forefoot Hx of amputation Status post transmetatarsal amputation of left foot Social History Social History Household Members: None Housing: Apartment Do you presently have visiting nurse or other home services: Yes Alcohol intake: current Alcohol intake frequency: holidays/special occasions only Alcohol type: beer Patient Tobacco Use Status: Former Tobacco user Quit Date: >20yr ago Tobacco use type: Cigarette Substance Use Type: Crack/Cocaine Advance Directives Date on File: 02/02/22 service: No Current occupational status: retired Meds Allergies Allergy/AdvReac Type Severity Reaction Status Date / Time metformin AdvReac Unknown Verified 09/29/22 10:26 Active Medications: Current Medications Acetaminophen (Acetaminophen 325 Mg Tablet) 650 mg PO Q6H PRN PRN Reason: Pain, Mild (Pain Scale 1-3) Amlodipine Besylate (Amlodipine Besylate 10 Mg Tablet) 10 mg PO BEDTIME ANNABELLA; Protocol Atorvastatin Calcium (Atorvastatin Calcium 80 Mg Tablet) 80 mg PO BEDTIME ANNABELLA Last Admin: 09/29/22 20:18 Dose: 80 mg Cyclobenzaprine HCl (Cyclobenzaprine Hcl 5 Mg Tablet) 5 mg PO BEDTIME ANNABELLA Last Admin: 09/29/22 20:18 Dose: 5 mg Dextrose (Dextrose 50 % 25 Gm/50 Ml Syringe) 25 gm IVPUSH Q15M PRN; Protocol PRN Reason: per Hypoglycemia Standing Ord. Docusate Sodium (Docusate Sodium 100 Mg Capsule) 100 mg PO DAILY PRN PRN Reason: Constipation Docusate Sodium (Docusate Sodium 100 Mg Capsule) 100 mg PO BEDTIME ANNABELLA Last Admin: 09/29/22 20:18 Dose: 100 mg Enoxaparin Sodium (Enoxaparin Sodium 40 Mg/0.4 Ml Syringe) 40 mg SUBCUT Q24H ANNABELLA Last Admin: 09/29/22 20:18 Dose: 40 mg Fluticasone Propionate (Fluticasone Propionate Nasal [address] [place]) 2 spray NOSTRIL-B DAILY PRN PRN Reason: Nasal Congestion Furosemide (Furosemide 40 Mg Tablet) 40 mg PO BID ANNABELLA; Protocol Last Admin: 09/29/22 20:18 Dose: 40 mg Gabapentin (Gabapentin 100 Mg Capsule) 100 mg PO TID [facility] Last Admin: 09/29/22 20:19 Dose: 100 mg Glucose (Glucose Gel 15 Gm Gel..Gram.) 15 gm PO Q15M PRN; Protocol PRN Reason: per Hypoglycemia Standing Ord. Hydralazine HCl (Hydralazine Hcl 50 Mg Tablet) 100 mg PO TID ANNABELLA; Protocol Last Admin: 09/29/22 20:18 Dose: 100 mg Insulin Glargine (Insulin Glargine,Hum.Rec.Anlog 100 Unit/Ml 10 Ml Vial) 17 unit SUBCUT BEDTIME ANNABELLA Last Admin: 09/29/22 20:19 Dose: 17 unit Insulin Human Lispro (Insulin Lispro 100 Unit/Ml 3 Ml Vial) 0 unit SUBCUT QIDACHS [facility]; Protocol Last Admin: 09/29/22 20:19 Dose: 8 unit Isosorbide Mononitrate (Isosorbide Mononitrate 60 Mg Tab.Er.24h) 60 mg PO DAILY [facility]; Protocol Last Admin: 09/29/22 08:45 Dose: 60 mg Losartan Potassium (Losartan Potassium 50 Mg Tablet) 100 mg PO DAILY [facility]; Protocol Last Admin: 09/29/22 08:46 Dose: 100 mg Metoprolol Succinate (Metoprolol Succinate Er 100 Mg Tab.Er.24h) 100 mg PO DAILY [facility]; Protocol Last Admin: 09/29/22 08:46 Dose: 100 mg Ondansetron HCl (Ondansetron Hcl 4 Mg/2 Ml Vial) 4 mg IVPUSH Q8H PRN PRN Reason: Nausea and Vomiting Pharmacy Consult (Consult Rx Perform Med Rec) 1 each MISCELLANE ONCE PRN PRN Reason: Consult order Sertraline HCl (Sertraline Hcl 50 Mg Tablet) 50 mg PO DAILY [facility] Last Admin: 09/29/22 08:46 Dose: 50 mg Sodium Chloride (0.9 % Sodium Chloride Flush 3 Ml Syringe) 3 ml IVFLUSH QSHIFT [facility] Last Admin: 09/29/22 20:19 Dose: 3 ml Sodium Zirconium Cyclosilicate (Sodium Zirconium Cyclosilicate 5 Gm Powd.Pack) 5 gm PO Q2D [facility] Last Admin: 09/28/22 20:49 Dose: 5 gm Spironolactone (Spironolactone 25 Mg Tablet) 25 mg PO DAILY [facility]; Protocol Last Admin: 09/29/22 08:46 Dose: 25 mg Tamsulosin HCl (Tamsulosin Hcl 0.4 Mg Capsule) 0.4 mg PO BEDTIME [facility] Last Admin: 09/29/22 20:18 Dose: 0.4 mg Home Medications Medication Instructions Recorded Confirmed Last Taken Type atorvastatin 80 mg tablet 80 mg PO BEDTIME 04/27/21 09/28/22 09/27/22 History fluticasone propionate 50 2 spray intranasal DAILY PRN Nasal 04/27/21 09/28/22 09/28/22 History mcg/actuation nasal Congestion spray,suspension metformin 1,000 mg tablet 1,000 mg PO BID 04/27/21 09/28/22 09/28/22 History sertraline 50 mg tablet 50 mg PO DAILY 04/27/21 09/28/22 09/28/22 History sitagliptin phosphate 100 mg 100 mg PO DAILY 04/27/21 09/28/22 09/28/22 History tablet (Januvia) insulin degludec 100 unit/mL (3 25 unit subcut BEDTIME 01/03/22 09/28/22 09/27/22 History mL) subcutaneous pen (Tresiba FlexTouch U-100 insulin) gabapentin 100 mg capsule 100 mg PO TID 04/12/22 09/28/22 09/28/22 History cyclobenzaprine 5 mg tablet 5 mg PO BEDTIME 07/17/22 09/28/22 09/27/22 History nabumetone 500 mg tablet 500 mg PO BID 07/17/22 09/28/22 09/28/22 History amlodipine 10 mg tablet 10 mg PO BEDTIME 09/28/22 09/28/22 09/27/22 History hydralazine 50 mg tablet 100 mg PO TID 09/28/22 09/28/22 09/28/22 History losartan 50 mg tablet 100 mg PO DAILY 09/28/22 09/28/22 09/28/22 History sodium zirconium cyclosilicate 5 5 g PO Q2D 09/28/22 09/28/22 09/26/22 History gram oral powder packet (Lokelma) Physical Exam Vital Signs: Last Vital Signs Temp 97.8 F 09/30/22 07:42 Pulse 84 09/30/22 07:42 Resp 20 09/30/22 07:42 BP 170/80 H 09/30/22 07:42 Pulse Ox 94 09/30/22 07:42 O2 Del Method Room Air 09/30/22 07:42 BMI result Body Mass Index 29.5 Const General: alert and awake HEENT Head: Yes normocephalic and Yes atraumatic Neck Neck: Yes supple Resp Auscultation: clear to auscultation bilaterally Cardio Heart sounds: S1 normal heart sound present and S2 normal heart sound present GI Palpation (GI): Soft to palpation and nontender Extrem General: No pedal edema Results Lab Results 09/29/22 06:46 09/29/22 06:46 Lab results: Chemistry 09/28/22 09/29/22 14:19 06:46 Sodium 140 144 Potassium 4.3 4.2 Carbon Dioxide 24 25 BUN 41 H 41 H Creatinine 2.08 H 2.18 H Calcium 8.8 8.9 Hematology 09/28/22 09/29/22 14:19 06:46 WBC 7.2 7.8 Hgb 9.2 L 9.5 L Plt Count 270 266 Assessment and Plan (1) CKD (chronic kidney disease) stage 3, GFR 30-59 ml/min: Status: Acute (2) Hypertensive urgency: Status: Acute (3) PAD (peripheral artery disease): Status: Acute (4) (HFpEF) heart failure with preserved ejection fraction: Status: Acute Plan kidney function at baseline known CKD due to DM/HTN cannot rule out also rohit vascular disease causing ischemic nephropathy proteinuria ~ 1.8 g presented with hypertensive urgency renal US suggestive of right renal artery stenosis increased peak systolic velocity in the right mid renal artery, upper renal artery to aorta ratio and slightly elevated segmental resistive indices in the right kidney suggestive of right renal artery stenosis h/o HFpEF REC MRA to confirm renal artery stenosis dc amlodipine replace with nifedipine xl 30 mg daily (titrate as needed) follow kidney function and electrolytes Time Spent With Patient Time: Total time managing care of this patient today ____ minutes. Procedures Date of Service Date of Service: 09/30/22
[2022-09-30 08:12] LABS: Glucose, Whole Blood 120 mg/dL (60-115)
[2022-09-30] MEDS: Isosorbide Mononitrate 60 MG TAB.ER.24H PO (08:34)
[2022-09-30] MEDS: Gabapentin 100 MG CAPSULE PO ×3 (08:34→21:43)
[2022-09-30] MEDS: Furosemide 40 MG TABLET PO ×2 (08:34→21:42)
[2022-09-30] MEDS: hydrALAZINE HCl 50 MG TABLET 100 MG PO ×3 (08:34→21:43)
[2022-09-30] MEDS: Sertraline HCL 50 MG TABLET PO (08:34)
[2022-09-30] MEDS: Spironolactone 25 MG TABLET PO (08:35)
[2022-09-30] MEDS: NIFEdipine ER 30 MG TAB.ER.24 PO (08:35)
[2022-09-30] MEDS: Metoprolol Succinate ER 100 MG TAB.ER.24H PO (08:35)
[2022-09-30] MEDS: Losartan Potassium 50 MG TABLET 100 MG PO (08:35)
[2022-09-30 11:38] VITALS: BP 160/75; PULSE 59; RESP 20; TEMP 36.3; O2SAT 96
[2022-09-30 11:40] LABS: Glucose, Whole Blood 267 mg/dL (60-115)
[2022-09-30] MEDS: Insulin Lispro 100 UNIT/ML 3 ML VIAL SUBCUT ×2 (12:29→21:43)
--- NOTE | 2022-09-30 13:10 | P.PNIM_ITS ---
Subjective Subjective Date of Service: 09/30/22 Interval History: Offers no acute complaints denies chest pain, no headache no dizziness, no nausea, no vomiting, no abdominal pain tolerating diet no acute events overnight patient wants to know what is the treatment plan and history obtained and all his questions are answered via degreasing solution reclaimer Review of Systems All other systems reviewed and negative. Physical Exam Vital Signs: Vital Signs: Last Vital Signs Temp 97.4 F 09/30/22 11:38 Pulse 59 09/30/22 11:38 Resp 20 09/30/22 11:38 BP 160/75 H 09/30/22 11:38 Pulse Ox 96 09/30/22 11:38 O2 Del Method Room Air 09/30/22 11:38 BMI result Body Mass Index 29.5 Const: Other: General awake aler t x3, in no acute distress.? Neck is supple no JVD. CV S? regular rate rh ythm, Respiratory lungs clear to aus cultation, no resp iratory distress, no wheeze, no rhon chi. Gastrointesti nal abdomen soft, nontender, bowel s ounds audible, no guarding , no rigi dity. Extremities left BKA Neuro no nfocal Skin no cynthia h Psych appropriat e affect Objective Data Active Medications Acetaminophen (Acetaminophen 325 Mg Tablet) 650 mg PO Q6H PRN PRN Reason: Pain, Mild (Pain Scale 1-3) Atorvastatin Calcium (Atorvastatin Calcium 80 Mg Tablet) 80 mg PO BEDTIME [facility] Last Admin: 09/29/22 20:18 Dose: 80 mg Documented By: ELLIE Cyclobenzaprine HCl (Cyclobenzaprine Hcl 5 Mg Tablet) 5 mg PO BEDTIME [facility] Last Admin: 09/29/22 20:18 Dose: 5 mg Documented By: ELLIE Dextrose (Dextrose 50 % 25 Gm/50 Ml Syringe) 25 gm IVPUSH Q15M PRN; Protocol PRN Reason: per Hypoglycemia Standing Ord. Docusate Sodium (Docusate Sodium 100 Mg Capsule) 100 mg PO DAILY PRN PRN Reason: Constipation Docusate Sodium (Docusate Sodium 100 Mg Capsule) 100 mg PO BEDTIME [facility] Last Admin: 09/29/22 20:18 Dose: 100 mg Documented By: ELLIE Enoxaparin Sodium (Enoxaparin Sodium 40 Mg/0.4 Ml Syringe) 40 mg SUBCUT Q24H [facility] Last Admin: 09/29/22 20:18 Dose: 40 mg Documented By: ELLIE Fluticasone Propionate (Fluticasone Propionate Nasal 16 Gm [place]) 2 spray NOSTRIL-B DAILY PRN PRN Reason: Nasal Congestion Furosemide (Furosemide 40 Mg Tablet) 40 mg PO BID [facility]; Protocol Last Admin: 09/30/22 08:34 Dose: 40 mg Documented By: SENG Gabapentin (Gabapentin 100 Mg Capsule) 100 mg PO TID [facility] Last Admin: 09/30/22 08:34 Dose: 100 mg Documented By: SENG Glucose (Glucose Gel 15 Gm Gel..Gram.) 15 gm PO Q15M PRN; Protocol PRN Reason: per Hypoglycemia Standing Ord. Hydralazine HCl (Hydralazine Hcl 50 Mg Tablet) 100 mg PO TID [facility]; Protocol Last Admin: 09/30/22 08:34 Dose: 100 mg Documented By: SENG Insulin Glargine (Insulin Glargine,Hum.Rec.Anlog 100 Unit/Ml 10 Ml Vial) 17 unit SUBCUT BEDTIME [facility] Last Admin: 09/29/22 20:19 Dose: 17 unit Documented By: ELLIE Insulin Human Lispro (Insulin Lispro 100 Unit/Ml 3 Ml Vial) 0 unit SUBCUT QIDACHS [facility]; Protocol Last Admin: 09/30/22 12:29 Dose: 6 unit Documented By: SENG Isosorbide Mononitrate (Isosorbide Mononitrate 60 Mg Tab.Er.24h) 60 mg PO DAILY [facility]; Protocol Last Admin: 09/30/22 08:34 Dose: 60 mg Documented By: SENG Losartan Potassium (Losartan Potassium 50 Mg Tablet) 100 mg PO DAILY [facility]; Protocol Last Admin: 09/30/22 08:35 Dose: 100 mg Documented By: SENG Metoprolol Succinate (Metoprolol Succinate Er 100 Mg Tab.Er.24h) 100 mg PO SOUMYA LY ANNABELLA; Protocol Last Admin: 09/30/22 08:35 Dose: 100 mg Documented By: SENG Nifedipine (Nifedipine Er 30 Mg Tab.Er.24) 30 mg PO DAILY [facility]; Protocol Last Admin: 09/30/22 08:35 Dose: 30 mg Documented By: SENG Ondansetron HCl (Ondansetron Hcl 4 Mg/2 Ml Vial) 4 mg IVPUSH Q8H PRN PRN Reason: Nausea and Vomiting Pharmacy Consult (Consult Rx Perform Med Rec) 1 each MISCELLANE ONCE PRN PRN Reason: Consult order Sertraline HCl (Sertraline Hcl 50 Mg Tablet) 50 mg PO DAILY [facility] Last Admin: 09/30/22 08:34 Dose: 50 mg Documented By: SENG Sodium Chloride (0.9 % Sodium Chloride Flush 3 Ml Syringe) 3 ml IVFLUSH QSHIFT [facility] Last Admin: 09/30/22 08:47 Dose: Not Given Documented By: SENG Non-Admin Reason: Previously Administered Sodium Zirconium Cyclosilicate (Sodium Zirconium Cyclosilicate 5 Gm Powd.Pack) 5 gm PO Q2D [facility] Last Admin: 09/28/22 20:49 Dose: 5 gm Documented By: KHADRA Spironolactone (Spironolactone 25 Mg Tablet) 25 mg PO DAILY [facility]; Protocol Last Admin: 09/30/22 08:35 Dose: 25 mg Documented By: SENG Tamsulosin HCl (Tamsulosin Hcl 0.4 Mg Capsule) 0.4 mg PO BEDTIME [facility] Last Admin: 09/29/22 20:18 Dose: 0.4 mg Documented By: ELLIE Labs 09/29/22 06:46 09/29/22 06:46 Labs: Laboratory Results - last 24 hr 09/29/22 09/29/22 09/30/22 15:31 20:00 07:33 POC Glucose 81 308 H 120 H 09/30/22 11:35 POC Glucose 267 H Assessment and Plan (1) Hypertensive urgency: Status: Acute Plan 67 year old male with history of HFpEF, htn, PAD s/p left BKA, ED, IDDM, LIVE, CKD stage 3, and hyperlipidemia admitted for hypertensive urgency. #Hypertensive urgency -no recurrent chest discomfort of shortness of breath -Trops WNL x 2, EKG non ischemic -reports compliance with antihypertensives (currently takes spironolactone, metoprolol, losartan, isosorbide, hydralazine, furosemide, and amlodipine) BP improved but suboptimally controlled on current medications -renal doppler suggestive of right renal artery stenosis follow- MRA ordered by Dr. Berrios , he changed amlodipine to Procardia follow BP -Echo ordered -case discussed with Dr. Moody from Cardiology he recommend outpatient cardiology workup. # insulin-dependent type 2 diabetes-with hyperglycemia -continue basal insulin,Humalog on sliding scale,POC glucose -diabetic diet -resume Januvia and glipizide continue to hold metformin # PAD/HLD -continue statin #CKD stage 3 -renal function baseline DVT prophylaxis-Lovenox Full code Patient requires continued inpatient stay for management of hypertensive urgency requiring IV antihypertensives and need MRA study Time Spent With Patient Time: Total time managing care of this patient today ____ minutes. Quality Stroke Does the patient have a stroke diagnosis?: No VTE Prior VTE?: No VTE Risk Level:: Medical - moderate - high VTE Device Contraindication: Treatment Not Indicated VTE Drug Contraindication: N/A - Med Ordered
[2022-09-30] MEDS: 0.9 % Sodium Chloride Flush 3 ML SYRINGE IVFLUSH (15:26)
[2022-09-30 15:55] LABS: Glucose, Whole Blood 138 mg/dL (60-115)
[2022-09-30 15:58] VITALS: BP 174/68; PULSE 59; RESP 16; TEMP 36.2; O2SAT 95
[2022-09-30] MEDS: glipiZIDE 10 MG TABLET PO (17:16)
[2022-09-30 20:16] VITALS: BP 180/68; PULSE 63; RESP 16; TEMP 36.1; O2SAT 97
[2022-09-30 21:00] LABS: Glucose, Whole Blood 167 mg/dL (60-115)
[2022-09-30] MEDS: Enoxaparin Sodium 40 MG/0.4 ML SYRINGE SUBCUT (21:41)
[2022-09-30] MEDS: Tamsulosin HCL 0.4 MG CAPSULE PO (21:42)
[2022-09-30] MEDS: Cyclobenzaprine HCl 5 MG TABLET PO (21:42)
[2022-09-30] MEDS: Docusate Sodium 100 MG CAPSULE PO (21:43)
[2022-09-30] MEDS: Atorvastatin Calcium 80 MG TABLET PO (21:43)
[2022-09-30] MEDS: Insulin Glargine,Hum.rec.anlog 100 UNIT/ML 10 ML VIAL 17 UNIT SUBCUT (21:44)
[2022-09-30] MEDS: Sodium Zirconium Cyclosilicate 5 GM POWD.PACK PO (22:23)
[2022-10-01] VITALS (7 sets, daily range): BP systolic 152–176; BP diastolic 64–91; PULSE 58–68; RESP 16–20; TEMP 36.1–36.8; O2SAT 95–98
[2022-10-01] MEDS: 0.9 % Sodium Chloride Flush 3 ML SYRINGE IVFLUSH ×3 (00:09→16:50)
--- NOTE | 2022-10-01 07:00 | CA_ITS ---
Transthoracic Echocardiogram Patient (Last, First, Middle): Kingsley Rivero R Gender: Male Date of : 1955 Age: 67 Procedure Date: 10/01/2022 Procedure Type: Transthoracic Echocardiogram Location: [facility] [place] Height: 172.72 cm Weight: 88. kg BSA: 2.02 m2 Heart Rate: 60 bpm BP: 162 / 84 mmHg Sustainability Purchasing Agent: SAUD Referring MD: Edwina DEAN Fur Mixer Operator: Elia Bonilla MD Symptoms: hypertensive urgency Study Quality: Adequate ECG Rhythm: Sinus Conclusions: - 1. Normal LV systolic function with mild LVH with LVEF of 60 65% with impaired relaxation filling pattern 2. Mildly dilated left atrium 3. Normal cardiac valvular Dopplers 4. No gross pericardial effusion 5. Upper limits of normal ascending aortic size Findings Left Ventricle Normal left ventricular size and systolic function. There is mildly increased left ventricular wall thickness. The visually estimated ejection fraction is between 60-65%. Spectral Doppler is indicative of an impaired relaxation filling pattern. E/E prime ratio is between 8 and 15 consistent with indeterminate filling pressures. Right Ventricle Normal right ventricular cavity size and systolic function. Atria The left atrium is mildly dilated. There is lipomatous hypertrophy of the interatrial septum. There is no evidence of interatrial shunt. The right atrium is normal in size. Aortic Valve Normal aortic valve structure and function. There is no aortic valve stenosis. There is no aortic valve regurgitation. Mitral Valve There is mild anterior and posterior mitral leaflet thickening. There is trace mitral valve regurgitation. There is no mitral valve stenosis. Pulmonic Valve The pulmonic valve is likely normal. There is trace pulmonic valve regurgitation. Tricuspid Valve Normal tricuspid valve structure. Tricuspid regurgitation envelope is inadequate for calculation of right ventricular systolic pressure. Normal right atrial pressure. Great Vessels The pulmonary artery was not well visualized. Venous The inferior vena cava is normal in size and collapses greater than 50% with inspiration. Pericardium/Pleural There is no evidence of pericardial effusion. Measurements 2D Linear Measurements IVSd: 1.30 0.6-0.9/0.6-1.0 cm LVIDd: 4.90 3.9-5.3/4.2-5.9 cm LVIDd Index: 2.43 2.4-3.2/2.2-3.1 cm/m2 LVIDs: 3.30 2.0-3.6 cm LVPWd: 1.30 0.7-1.1 cm LA Diam: 3.50 2.7-3.8/3.0-4.0 cm LAIDs Index: 1.73 1.5-2.3 cm/m2 LV Mass: 316.40 67-162/88-224 g LV Mass Index: 156.63 43-95/49-115 g/m2 LVOT Diam: 2.30 3.0+(-)1.3 cm 2D Systolic Function EF 4C: 66.10 >55% EF 2C: 53.40 >55% EF BiP: 60.50 >55% Mitral Valve MV Pk E: 0.87 MV PK A: 0.84 MV Decel Time: 233.00 E/A: 1.00 E'Lateral: 6.42 E'Medial: 5.44 E/E' Med: 16.00 E/E' Lat: 13.60 PHT: 68.00 MVA PHT: 3.24 Decel [place]: 3.73 Aortic Valve AoV Pk Gerard: 1.47 AoV Pk Grad: 9.00 BRENNA: 2.80 LVOT LVOT Pk Gerard: 1.11 LVOT Mn Gerard: 0.76 LVOT VTI: 0.26 LVOT Pk Grad: 5.00 LVOT Mn Grad: 3.00 LVOT Diam: 2.30 LVOT Area: 4.15 Diastolic Function MV Pk E: 0.87 MV Pk A: 0.84 E/A: 1.00 E'Medial: 5.44 E/E' Med: 16.00 E' Laterial: 6.42 E/E' Lat: 13.60 Right Ventricle TAPSE (mm): 21.40 TVS' Gerard: 18.20 Tricuspid Valve RA Press: 3.00 Great Vessels Aorta Sinus of Valsalva: 3.70 2.0-3.5 cm Ao Asc: 3.50 2.1-3.4 cm Pulmonary Veins Pulm Vein S/D 1.10 Pulmonary Valve PV Pk Gerard: 1.25 Peak PV Grad: 6.00 Updated in Other Vendor System with Status of Final Elia Bonilla MD electronically signed on 10/01/2022 4:23:01 PM with status of Final
[2022-10-01 07:16] LABS: Glucose, Whole Blood 129 mg/dL (60-115)
[2022-10-01] MEDS: NIFEdipine ER 30 MG TAB.ER.24 PO ×2 (09:37→16:50)
[2022-10-01] MEDS: Isosorbide Mononitrate 60 MG TAB.ER.24H PO (09:37)
[2022-10-01] MEDS: hydrALAZINE HCl 50 MG TABLET 100 MG PO ×3 (09:37→20:41)
[2022-10-01] MEDS: Gabapentin 100 MG CAPSULE PO ×3 (09:38→20:40)
[2022-10-01] MEDS: glipiZIDE 10 MG TABLET PO (09:38)
[2022-10-01] MEDS: SITagliptin Phosphate 100 MG TABLET PO (09:38)
[2022-10-01] MEDS: Losartan Potassium 50 MG TABLET 100 MG PO (09:38)
[2022-10-01] MEDS: Spironolactone 25 MG TABLET PO (09:38)
[2022-10-01] MEDS: Furosemide 40 MG TABLET PO ×2 (09:38→20:40)
[2022-10-01] MEDS: Metoprolol Succinate ER 100 MG TAB.ER.24H PO (09:39)
[2022-10-01] MEDS: Sertraline HCL 50 MG TABLET PO (09:42)
--- NOTE | 2022-10-01 10:17 | MHC.CM.PN ---
EMR REVIEWED, PER HOSPITALIST PLAN FOR MRA TODAY, NO PLAN FOR D/C AT THIS TIME, CM WILL CONT TO FOLLOW D/C NEEDS.
[2022-10-01 11:40] LABS: Glucose, Whole Blood 341 mg/dL (60-115)
[2022-10-01] MEDS: Insulin Lispro 100 UNIT/ML 3 ML VIAL SUBCUT ×2 (11:59→20:42)
--- NOTE | 2022-10-01 13:47 | P.PNIM_ITS ---
Subjective Subjective Date of Service: 10/01/22 Interval History: all info gleaned via skin carver; no complaints Review of Systems denies chest pain Denies shortness of breath Denies nausea vomiting diarrhea Denies fever and chills Physical Exam Vital Signs: Vital Signs: Last Vital Signs Temp 97.2 F 10/01/22 12:00 Pulse 59 10/01/22 12:00 Resp 20 10/01/22 12:00 BP 174/64 H 10/01/22 12:00 Pulse Ox 97 10/01/22 12:00 O2 Del Method Room Air 10/01/22 12:00 BMI result Body Mass Index 29.5 Const: Other: no acute distress Resp: Other: clear to auscultation bilaterally no rales rhonchi or wheezes Cardio: Other: no S4; positive S1-S2; no S3 murmurs rubs or gallops GI: Other: soft nontender nondistended normoactive bowel sounds Extrem: Other: no edema bilaterally Objective Data Active Medications Acetaminophen (Acetaminophen 325 Mg Tablet) 650 mg PO Q6H PRN PRN Reason: Pain, Mild (Pain Scale 1-3) Atorvastatin Calcium (Atorvastatin Calcium 80 Mg Tablet) 80 mg PO BEDTIME [facility] Last Admin: 09/30/22 21:43 Dose: 80 mg Documented By: KAMRON Cyclobenzaprine HCl (Cyclobenzaprine Hcl 5 Mg Tablet) 5 mg PO BEDTIME [facility] Last Admin: 09/30/22 21:42 Dose: 5 mg Documented By: KAMRON Dextrose (Dextrose 50 % 25 Gm/50 Ml Syringe) 25 gm IVPUSH Q15M PRN; Protocol PRN Reason: per Hypoglycemia Standing Ord. Docusate Sodium (Docusate Sodium 100 Mg Capsule) 100 mg PO DAILY PRN PRN Reason: Constipation Docusate Sodium (Docusate Sodium 100 Mg Capsule) 100 mg PO BEDTIME [facility] Last Admin: 09/30/22 21:43 Dose: 100 mg Documented By: KAMRON Enoxaparin Sodium (Enoxaparin Sodium 40 Mg/0.4 Ml Syringe) 40 mg SUBCUT Q24H [facility] Last Admin: 09/30/22 21:41 Dose: 40 mg Documented By: KAMRON Fluticasone Propionate (Fluticasone Propionate Nasal 16 Gm [place]) 2 spray NOSTRIL-B DAILY PRN PRN Reason: Nasal Congestion Furosemide (Furosemide 40 Mg Tablet) 40 mg PO BID [facility]; Protocol Last Admin: 10/01/22 09:38 Dose: 40 mg Documented By: HALEY Gabapentin (Gabapentin 100 Mg Capsule) 100 mg PO TID [facility] Last Admin: 10/01/22 09:38 Dose: 100 mg Documented By: HALEY Glipizide (Glipizide 10 Mg Tablet) 10 mg PO BIDWM [facility] Last Admin: 10/01/22 09:38 Dose: 10 mg Documented By: HALEY Glucose (Glucose Gel 15 Gm Gel..Gram.) 15 gm PO Q15M PRN; Protocol PRN Reason: per Hypoglycemia Standing Ord. Hydralazine HCl (Hydralazine Hcl 50 Mg Tablet) 100 mg PO TID [facility]; Protocol Last Admin: 10/01/22 09:37 Dose: 100 mg Documented By: HALEY Insulin Glargine (Insulin Glargine,Hum.Rec.Anlog 100 Unit/Ml 10 Ml Vial) 17 u nit SUBCUT BEDTIME [facility] Last Admin: 09/30/22 21:44 Dose: 17 unit Documented By: KAMRON Insulin Human Lispro (Insulin Lispro 100 Unit/Ml 3 Ml Vial) 0 unit SUBCUT QIDACHS [facility]; Protocol Last Admin: 10/01/22 11:59 Dose: 6 unit Documented By: HALEY Isosorbide Mononitrate (Isosorbide Mononitrate 60 Mg Tab.Er.24h) 60 mg PO DAILY [facility]; Protocol Last Admin: 10/01/22 09:37 Dose: 60 mg Documented By: HALEY Losartan Potassium (Losartan Potassium 50 Mg Tablet) 100 mg PO DAILY [facility]; Protocol Last Admin: 10/01/22 09:38 Dose: 100 mg Documented By: HALEY Metoprolol Succinate (Metoprolol Succinate Er 100 Mg Tab.Er.24h) 100 mg PO DAILY [facility]; Protocol Last Admin: 10/01/22 09:39 Dose: 100 mg Documented By: HALEY Nifedipine (Nifedipine Er 30 Mg Tab.Er.24) 30 mg PO DAILY [facility]; Protocol Last Admin: 10/01/22 09:37 Dose: 30 mg Documented By: HALEY Ondansetron HCl (Ondansetron Hcl 4 Mg/2 Ml Vial) 4 mg IVPUSH Q8H PRN PRN Reason: Nausea and Vomiting Pharmacy Consult (Consult Rx Perform Med Rec) 1 each MISCELLANE ONCE PRN PRN Reason: Consult order Sertraline HCl (Sertraline Hcl 50 Mg Tablet) 50 mg PO DAILY [facility] Last Admin: 10/01/22 09:42 Dose: 50 mg Documented By: HALEY Sitagliptin Phosphate (Sitagliptin Phosphate 100 Mg Tablet) 100 mg PO DAILY [facility] Last Admin: 10/01/22 09:38 Dose: 100 mg Documented By: HALEY Sodium Chloride (0.9 % Sodium Chloride Flush 3 Ml Syringe) 3 ml IVFLUSH QSHIFT [facility] Last Admin: 10/01/22 09:39 Dose: 3 ml Documented By: HALEY Sodium Zirconium Cyclosilicate (Sodium Zirconium Cyclosilicate 5 Gm Powd.Pack) 5 gm PO Q2D [facility] Last Admin: 09/30/22 22:23 Dose: 5 gm Documented By: KAMRON Spironolactone (Spironolactone 25 Mg Tablet) 25 mg PO DAILY [facility]; Protocol Last Admin: 10/01/22 09:38 Dose: 25 mg Documented By: HALEY Tamsulosin HCl (Tamsulosin Hcl 0.4 Mg Capsule) 0.4 mg PO BEDTIME [facility] Last Admin: 09/30/22 21:42 Dose: 0.4 mg Documented By: KAMRON Labs 09/29/22 06:46 09/29/22 06:46 Labs: Laboratory Results - last 24 hr 09/30/22 09/30/22 10/01/22 15:48 20:56 07:08 POC Glucose 138 H 167 H 129 H 10/01/22 11:30 POC Glucose 341 H Assessment and Plan (1) Hypertensive urgency: Status: Acute (2) Type 2 diabetes mellitus: Status: Acute (3) CKD (chronic kidney disease) stage 3, GFR 30-59 ml/min: Status: Acute Plan 67 year old male with history of HFpEF, htn, PAD s/p left BKA, ED, IDDM, LIVE, CKD stage 3, and hyperlipidemia admitted for hypertensive urgency. 1.Hypertensive urgency - no further chest pain - creatinine stable - discussed with Renal; will increase nifedipine and patient will follow-up with Dr. Modi. - Outpatient MRI with further treatment based on results 2.Insulin-dependent type 2 diabetes - continue outpatient therapies as ordered - lispro correctional stale 3.CKD stage 3 -follow renals/divalents - outpatient follow-up with Dr. Rian Fung Full code will require additional 24 hours of inpatient stay to monitor response to medication changes Time Spent With Patient Time: Total time managing care of this patient today ____ minutes. Quality Stroke Does the patient have a stroke diagnosis?: No VTE Prior VTE?: No VTE Risk Level:: Medical - moderate - high VTE Device Contraindication: Treatment Not Indicated VTE Drug Contraindication: N/A - Med Ordered
[2022-10-01 15:34] LABS: Glucose, Whole Blood 64 mg/dL (60-115)
[2022-10-01 16:40] LABS: Glucose, Whole Blood 127 mg/dL (60-115)
[2022-10-01 20:35] LABS: Glucose, Whole Blood 310 mg/dL (60-115)
[2022-10-01] MEDS: Atorvastatin Calcium 80 MG TABLET PO (20:40)
[2022-10-01] MEDS: Cyclobenzaprine HCl 5 MG TABLET PO (20:40)
[2022-10-01] MEDS: Tamsulosin HCL 0.4 MG CAPSULE PO (20:40)
[2022-10-01] MEDS: Docusate Sodium 100 MG CAPSULE PO (20:40)
[2022-10-01] MEDS: Insulin Glargine,Hum.rec.anlog 100 UNIT/ML 10 ML VIAL 17 UNIT SUBCUT (20:41)
[2022-10-01] MEDS: Enoxaparin Sodium 40 MG/0.4 ML SYRINGE SUBCUT (20:42)
[2022-10-02 03:04] VITALS: BP 138/72; PULSE 70; RESP 20; TEMP 36.3; O2SAT 97
[2022-10-02 07:12] LABS: Glucose, Whole Blood 185 mg/dL (60-115)
[2022-10-02 07:26] VITALS: BP 156/60; PULSE 63; RESP 20; TEMP 36.9; O2SAT 98
[2022-10-02] MEDS: Insulin Lispro 100 UNIT/ML 3 ML VIAL SUBCUT ×2 (08:42→12:03)
[2022-10-02] MEDS: Isosorbide Mononitrate 60 MG TAB.ER.24H PO (08:43)
[2022-10-02] MEDS: SITagliptin Phosphate 100 MG TABLET PO (08:43)
[2022-10-02] MEDS: Spironolactone 25 MG TABLET PO (08:43)
[2022-10-02] MEDS: Gabapentin 100 MG CAPSULE PO (08:43)
[2022-10-02] MEDS: Furosemide 40 MG TABLET PO (08:44)
[2022-10-02] MEDS: Sertraline HCL 50 MG TABLET PO (08:44)
[2022-10-02] MEDS: Metoprolol Succinate ER 100 MG TAB.ER.24H PO (08:44)
[2022-10-02] MEDS: Losartan Potassium 50 MG TABLET 100 MG PO (08:44)
[2022-10-02] MEDS: glipiZIDE 10 MG TABLET PO (08:44)
[2022-10-02] MEDS: hydrALAZINE HCl 50 MG TABLET 100 MG PO (08:44)
[2022-10-02] MEDS: NIFEdipine ER 60 MG TAB.ER.24 PO (08:44)
[2022-10-02] MEDS: 0.9 % Sodium Chloride Flush 3 ML SYRINGE IVFLUSH (08:49)
--- NOTE | 2022-10-02 09:07 | P.PNNP_ITS ---
Subjective Subjective Date of Service: 10/02/22 Interval history: Feels good , no complaints Physical Exam Vital Signs: Vital Signs: Last Vital Signs Temp 98.4 F 10/02/22 07:26 Pulse 63 10/02/22 07:26 Resp 20 10/02/22 07:26 BP 156/60 H 10/02/22 07:26 Pulse Ox 98 10/02/22 07:26 O2 Del Method Room Air 10/02/22 07:26 BMI result Body Mass Index 29.5 Const: Other: no acute distress Resp: Other: clear to auscultation bilaterally no rales rhonchi or wheezes Cardio: Other: no S4; positive S1-S2; no S3 murmurs rubs or gallops GI: Other: soft nontender nondistended normoactive bowel sounds Extrem: Other: no edema bilaterally Objective Data Labs 09/29/22 06:46 09/29/22 06:46 Labs: Laboratory Results - last 24 hr 10/01/22 10/01/22 10/01/22 11:30 15:29 16:37 POC Glucose 341 H 64 127 H 10/01/22 10/02/22 20:31 07:04 POC Glucose 310 H 185 H Procedures Date of Service Date of Service: 10/02/22 Assessment & Plan Assessment and plan (1) CKD (chronic kidney disease) stage 3, GFR 30-59 ml/min: Status: Acute (2) Hypertensive urgency: Status: Acute (3) Hyperlipidemia associated with type 2 diabetes mellitus: Status: Acute (4) Type 2 diabetes mellitus: Status: Acute (5) HTN (hypertension): Status: Acute (6) PAD (peripheral artery disease): Status: Acute (7) Kidney disease: Status: Acute Assessment and Plan: 1. KEYA on CKD 3: SCr baseline 1.3-1.7 range;most c/w DN/HTN renal dis KEYA better 2. Proteinuria: most c/w DN/HTN renal dis 3. Anemia: check Fe studies 4. HTN - Better controlled REC: Cont cozaar 100 mg Continue other BP meds avoid NToxins; As outpt will look to add [id number] and kerendia for added renal/CV protection Pt on aldactone / Hydralazine /' Beta carolina Continue Lasix 40 mg BID On increased dose of Nifedipine - Can increase to 90 mg if needed Can be d/c'd I will arrange f/u with us in [place] ( Dr. Modi ) d/w Dr. Gonzalez Plan The patient is medically cleared for transfer. Time Spent With Patient Time: Total time managing care of this patient today ____ minutes. Progress Note: Quality Stroke Does the patient have a stroke diagnosis?: No
[2022-10-02 11:18] LABS: Glucose, Whole Blood 278 mg/dL (60-115)
[2022-10-02 11:48] VITALS: BP 140/67; PULSE 57; RESP 20; TEMP 36.4; O2SAT 97
--- NOTE | 2022-10-02 11:54 | P.DS_ITS ---
DS: Providers Provider Date of Service: 10/02/22 Date of admission: 09/28/22 19:53 Primary care physician: Marline Richard MD Consults: 09/28/22 19:52 Consult to Cardiology Routine Consulting Provider: [facility] [place] Cardiovascular Services Reason for consultation: hypertensive urgency 09/29/22 08:46 Consult to Nephrology Routine Consulting Provider: Zaheer Christie Reason for consultation: LORENZO Has provider been notified: No DS: Diagnosis Discharge Diagnosis (1) CKD (chronic kidney disease) stage 3, GFR 30-59 ml/min: Status: Acute (2) Hypertensive urgency: Status: Acute (3) Hyperlipidemia associated with type 2 diabetes mellitus: Status: Acute (4) Type 2 diabetes mellitus: Status: Acute (5) HTN (hypertension): Status: Acute (6) PAD (peripheral artery disease): Status: Acute (7) Kidney disease: Status: Acute DS: Summary Hospital Course Hospital Course: 67 year old male with history of HFpEF, htn, PAD s/p left BKA, ED, IDDM, LIVE, CKD stage 3, and hyperlipidemia presents to the ED from home for evaluation of chest pain and elevated blood pressures ongoing x 3 days. He feels symptoms started after taking viagra on saturday night. He reports retrosternal chest pressure rated 10/10 without radiation. pain was constant both at rest and with exertion. Has been taking blood pressures at home and reports SBP >200. EMS administered nitro with improvement in pain to 4/10. Currently he denies any chest pain. He states initially he may have had diaphoresis, but no lightheadedness, sob, palpitations, syncope. He is on 7 different antihy pertensives and reports compliance though is unable to tell me their names. In the ED, patient has been hypertensive to 214/90, other vitals stable. He received 10mg amlodipine and 1 inch nitro paste applied with slight improvement but BP 209/83 on admission. Hydralazine 10mg ordered by ED but not yet administered.? Hematology studies unremarkable.? Creatinine 2.08, consistent with baseline.? Electrolyte levels normal.? Glucose 236.? BNP 445, troponin within normal limits x2.? Negative for COVID-19.? Chest x-ray showing stable enlargement of the cardiac silhouette but no evidence of acute cardiopulmonary disease.? He denies any regular alcohol use, cigarette smoking, and denies illicit substance use. Hospital Course Home meds were restarted; blood pressure responded well. Seen by Cardiology in consultation; no new recommendations. Seen in consultation by Nephrology. Renal ultrasound with Dopplers ordered which revealed suggestion of renal artery stenosis. Creatinine remained at baseline. At this point in time nephrology recommending outpatient follow-up with increase nifedipine to 60 mg daily. This was done today prior to his discharge with good effect. Dr. Hankins will arrange follow-up with Dr. Modi in the [place] office Who will orchestrate MRA of the renal arteries. At this point time he is stable for discharge Time Spent with Patient Time attestation: Total time managing care of this patient today ____ minutes. Discharge coordination time: Greater than 30 minutes Quality: Safe Use of Opioids Does Pt have an Active Cancer Diagnosis on the Problem List?: No Quality: Stroke Does the patient have a stroke diagnosis?: No Physical Exam Vital Signs: Vital Signs: Last Vital Signs Temp 97.5 F 10/02/22 11:48 Pulse 57 10/02/22 11:48 Resp 20 10/02/22 11:48 BP 140/67 H 10/02/22 11:48 Pulse Ox 97 10/02/22 11:48 O2 Del Method Room Air 10/02/22 11:48 BMI result Body Mass Index 29.5 Const: Other: no acute distress Resp: Other: clear to auscultation bilaterally no rales rhonchi or wheezes Cardio: Other: no S4; positive S1-S2; no S3 murmurs rubs or gallops GI: Other: soft nontender nondistended normoactive bowel sounds Extrem: Other: no edema bilaterally DS: Data Data Completed and Pending Completed studies during hospitalization [Text1]: Procedures Detachment at Left 1st Toe, Complete, Open Approach (01/24/22) Detachment at Left Foot, Partial 1st Ray, Open Approach (02/02/22) Detachment at Left Foot, Partial 2nd Ray, Open Approach (02/02/22) Detachment at Left Foot, Partial 3rd Ray, Open Approach (02/02/22) Detachment at Left Foot, Partial 4th Ray, Open Approach (02/02/22) Detachment at Left Foot, Partial 5th Ray, Open Approach (02/02/22) Detachment at Left Upper Leg, Mid, Open Approach (03/26/22) Extirpation of Matter from Left Femoral Artery, Open Approach (01/03/22) Fluoroscopy of Aorta and Bilateral Lower Extremity Arteries (01/03/22) Plain Radiography of Aorta and Bilateral Lower Extremity Arteries using Low Osmolar Contrast (01/24/22) Supplement Left Femoral Artery with Synthetic Substitute, Open Approach (01/03/22) Transfusion of Nonautologous Red Blood Cells into Peripheral Vein, Percutaneous Approach (03/26/22) Labs on day of discharge: Laboratory Results - last 24 hr 10/01/22 10/01/22 10/01/22 15:29 16:37 20:31 POC Glucose 64 127 H 310 H 10/02/22 10/02/22 07:04 11:08 POC Glucose 185 H 278 H Discharge Plan Discharge Anticipated Discharge Date/Time: 10/02/22 11:50 Patient Disposition: Home, Self-Care Discharge Diagnosis: Hypertensive emergency Referrals: Marline Richard MD [Primary Care Provider] - 1 Week Discharge Medications: New nifedipine 60 mg Tablet Extended Release 24hr 60 mg PO DAILY Qty: 30 0RF Protocol: Hold for SBP< HOLD for SBP < : 90 Continued tamsulosin 0.4 mg capsule 0.4 mg PO BEDTIME Qty: 30 2RF gabapentin 100 mg capsule 100 mg PO TID furosemide 40 mg tablet 40 mg PO BID Qty: 60 5RF metoprolol succinate 100 mg tablet extended release 24 hr 100 mg PO DAILY 30 Days Qty: 30 5RF spironolactone 25 mg tablet 25 mg PO DAILY Qty: 30 5RF Protocol: Hold for SBP< HOLD for SBP < : 90 isosorbide mononitrate 60 mg tablet extended release 24 hr 60 mg PO DAILY Qty: 30 5RF Protocol: Hold for SBP< HOLD for SBP < : 90 glipizide 10 mg Tablet 10 mg PO BIDWM Qty: 60 0RF insulin degludec [Tresiba FlexTouch U-100] 100 unit/mL (3 mL) insulin pen 25 unit subcut BEDTIME docusate sodium 100 mg Capsule 100 mg PO BEDTIME Qty: 30 0RF losartan 50 mg tablet 100 mg PO DAILY hydralazine 50 mg tablet 100 mg PO TID Protocol: Hold for SBP< HOLD for SBP < : 90 amlodipine 10 mg tablet 10 mg PO BEDTIME Protocol: Hold for SBP< HOLD for SBP < : 90 Lokelma 5 gram powder in packet 5 g PO Q2D Januvia 100 mg tablet 100 mg PO DAILY sertraline 50 mg tablet 50 mg PO DAILY fluticasone propionate 50 mcg/actuation spray,suspension 2 spray intranasal DAILY PRN (Reason: Nasal Congestion) metformin 1,000 mg tablet 1,000 mg PO BID atorvastatin 80 mg tablet 80 mg PO BEDTIME cyclobenzaprine 5 mg tablet 5 mg PO BEDTIME nabumetone 500 mg tablet 500 mg PO BID Discharge Orders: Discharge Order (Routine); Ordered 10/02/22 Ordered By: Christiano Gonzalez Diet: Advance to usual diet Activity on Discharge: As tolerated Stand Alone Forms: Patient Portal Discharge page Care Plan Goals: continue all your medicines as taken before the hospital.Your nifedipine has b een increased to 60 mg daily Health Concerns: You nifedipine has been increased to 60 mg daily Plan of Treatment: Dr. Modi ( nephrology) office will call you with an appointment Assessment: see discharge summary
--- NOTE | 2022-10-02 12:10 | MHC.CM.PN ---
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
[2022-10-02 12:36] LABS: Glucose, Whole Blood 232 mg/dL (60-115)
== END 2022-10-02 13:55 | disposition home or self-care (01) | DRG 305 ==
LOC: HO.ED 19:21 → HO.EDOVER 20:02 → HO.IMC 20:11
PROVIDERS: Hospitalist; Physician Assistant Medical; Student in an Organized Health Care Education/Training Program; Admitting Provider Physician Assistant; Emergency Provider Emergency Medicine; PCP General Practice; Visit Provider Hospitalist
DX: I16.0 Hypertensive urgency (principal); E11.51 Type 2 diabetes mellitus with diabetic peripheral angiopathy without gangrene; I13.0 Hypertensive heart and chronic kidney disease with heart failure and stage 1 through stage 4 chronic kidney disease, or unspecified chronic kidney disease; N18.30 Chronic kidney disease, stage 3 unspecified; E11.22 Type 2 diabetes mellitus with diabetic chronic kidney disease; E11.65 Type 2 diabetes mellitus with hyperglycemia; I70.1 Atherosclerosis of renal artery; E11.69 Type 2 diabetes mellitus with other specified complication; E78.49 Other hyperlipidemia; Z20.822 Contact with and (suspected) exposure to COVID-19; D63.1 Anemia in chronic kidney disease; Z89.512 Acquired absence of left leg below knee; Z87.891 Personal history of nicotine dependence; Z79.4 Long term (current) use of insulin; Z79.84 Long term (current) use of oral hypoglycemic drugs; Z79.899 Other long term (current) drug therapy
CPT/HCPCS: 36415; 71046; 80048; 80053; 82947; 83735; 83880; 84484; 85025; 87635; 93005; 93306; 93975; 99285; J1650; Q9957

== ENCOUNTER → 2022-09-28 13:54 | Outpatient (BNV) | payer OTHER, SELFPAY | PROVIDERS: Admitting Provider Physician Assistant; Emergency Provider Emergency Medicine; PCP General Practice; Visit Provider Internal Medicine Cardiovascular Disease | DX: I44.0 Atrioventricular block, first degree (principal) | CPT/HCPCS: 93010 ==

== ENCOUNTER 2022-09-28 19:53 | Outpatient (BNV) | payer OTHER, SELFPAY | END 2022-10-01 07:00 | PROVIDERS: Admitting Provider Physician Assistant; Emergency Provider Emergency Medicine; PCP General Practice; Visit Provider Internal Medicine Cardiovascular Disease | DX: I36.1 Nonrheumatic tricuspid (valve) insufficiency (principal) | CPT/HCPCS: 93306 ==

== ENCOUNTER → 2022-09-28 19:53 | Outpatient (BNV) | payer OTHER, SELFPAY | PROVIDERS: Admitting Provider Physician Assistant; Emergency Provider Emergency Medicine; PCP General Practice; Visit Provider Physician Assistant | DX: E11.22 Type 2 diabetes mellitus with diabetic chronic kidney disease (principal); N18.30 Chronic kidney disease, stage 3 unspecified; I73.9 Peripheral vascular disease, unspecified; I10 Essential (primary) hypertension; I16.0 Hypertensive urgency; E78.5 Hyperlipidemia, unspecified; N28.9 Disorder of kidney and ureter, unspecified | CPT/HCPCS: 99223; 99232; 99233; 99239 ==

== ENCOUNTER → 2022-09-28 19:53 | Outpatient (BNV) | payer OTHER, SELFPAY | PROVIDERS: Admitting Provider Physician Assistant; Emergency Provider Emergency Medicine; PCP General Practice; Visit Provider Internal Medicine Cardiovascular Disease | DX: I16.0 Hypertensive urgency (principal) | CPT/HCPCS: 99222 ==

== ENCOUNTER 2022-10-08 12:55 | Emergency (ER) | payer OTHER, SELFPAY ==
[2022-10-08] VITALS (7 sets, daily range): BP systolic 110–207; BP diastolic 40–82; PULSE 47–67; RESP 12–16; TEMP 36.3–36.8; O2SAT 97–99; BMI 27.8
--- NOTE | 2022-10-08 13:06 | ECG_ITS ---
Test Reason : dizzy Blood Pressure : / mmHG Vent. Rate : 049 BPM Atrial Rate : 049 BPM P-R Int : 242 ms QRS Dur : 092 ms QT Int : 420 ms P-R-T Axes : 095 028 058 degrees QTc Int : 379 ms Sinus bradycardia with 1st degree A-V block Abnormal ECG When compared with ECG of 28-SEP-2022 14:04, No significant change was found Referred By: Diane Strong Electronically Signed By:ALONA FOOTE
--- NOTE | 2022-10-08 13:21 | ED_ITS ---
HPI - Dizziness General Chief Complaint: Dizziness Stated Complaint: dizzy,fatigue Time Seen by Provider: 10/08/22 13:04 Source: patient Mode of arrival: EMS History of Present Illness HPI Narrative: 67-year-old male presents via ambulance for feeling dizzy with double vision since this morning. Patient states he has also had frequent urination and endorses that the dizziness and double vision typically occur her when his sugar level is high. When patient is asked what specifically brought him in today and what he is the most concerned about he states that he took his blood pressure after taking his blood pressure medications and noted that it was 95 systolic. He denies any speech difficulties and otherwise denies any sore thro at/cough/shortness of breath/chest pain/palpitations but has had some mild nausea without vomiting and otherwise denies abdominal pain or diarrhea. At this time, patient states that the dizziness and visual changes have completely resolved but he does have a mild headache. Related Data Home Medications Medication Instructions Recorded Confirmed atorvastatin 80 mg tablet 80 mg PO BEDTIME 04/27/21 09/28/22 fluticasone propionate 50 2 spray intranasal DAILY PRN Nasal 04/27/21 09/28/22 mcg/actuation nasal Congestion spray,suspension metformin 1,000 mg tablet 1,000 mg PO BID 04/27/21 09/28/22 sertraline 50 mg tablet 50 mg PO DAILY 04/27/21 09/28/22 sitagliptin phosphate 100 mg 100 mg PO DAILY 04/27/21 09/28/22 tablet (Januvia) insulin degludec 100 unit/mL (3 25 unit subcut BEDTIME 01/03/22 09/28/22 mL) subcutaneous pen (Tresiba FlexTouch U-100 insulin) gabapentin 100 mg capsule 100 mg PO TID 04/12/22 09/28/22 cyclobenzaprine 5 mg tablet 5 mg PO BEDTIME 07/17/22 09/28/22 nabumetone 500 mg tablet 500 mg PO BID 07/17/22 09/28/22 amlodipine 10 mg tablet 10 mg PO BEDTIME 09/28/22 09/28/22 hydralazine 50 mg tablet 100 mg PO TID 09/28/22 09/28/22 losartan 50 mg tablet 100 mg PO DAILY 09/28/22 09/28/22 sodium zirconium cyclosilicate 5 5 g PO Q2D 09/28/22 09/28/22 gram oral powder packet (Amadeo) Previous Rx's Medication Instructions Recorded tamsulosin 0.4 mg capsule 0.4 mg PO BEDTIME #30 caps 05/09/20 docusate sodium 100 mg capsule 100 mg PO BEDTIME #30 caps 02/13/22 glipizide 10 mg tablet 10 mg PO BIDWM #60 tabs 03/30/22 furosemide 40 mg tablet 40 mg PO BID #60 tabs 04/13/22 isosorbide mononitrate 60 mg 60 mg PO DAILY #30 tabs 04/13/22 tablet,extended release 24 hr metoprolol succinate 100 mg 100 mg PO DAILY 30 days #30 tabs 04/13/22 tablet,extended release 24 hr spironolactone 25 mg tablet 25 mg PO DAILY #30 tabs 04/13/22 nifedipine 60 mg tablet,extended 60 mg PO DAILY #30 tabs 10/02/22 release 24 hr Allergies Allergy/AdvReac Type Severity Reaction Status Date / Time metformin AdvReac Unknown Verified 09/29/22 10:26 Review of Systems Review of Systems: Pertinent positives and negatives as stated in HPI [facility] Past Medical History Source: nursing notes reviewed Medical History CKD stage 3 due to type 2 diabetes mellitus Diabetes High cholesterol HTN (hypertension) Hyperlipidemia associated with type 2 diabetes mellitus LIVE (iron deficiency anemia) Kidney disease Osteomyelitis PAD (peripheral artery disease) Type 2 diabetes mellitus Surgical History H/O shoulder surgery History of amputation of right forefoot Hx of amputation Status post transmetatarsal amputation of left foot Family History Family History Other No family history of coronary artery disease Social History Social History Household Members: None Housing: Apartment Do you presently have visiting nurse or other home services: Yes Alcohol intake: current Alcohol intake frequency: a few times a month Alcohol type: beer Patient Tobacco Use Status: Former Tobacco user Quit Date: >20yr ago Tobacco use type: Cigarette Smoked in Last 30 Days: No Use of substances other than those prescribed or required for medical reasons: No Substance Use Type: Crack/Cocaine Advance Directives: Yes Advance Directives on File: Yes Advance Directives Date on File: 02/02/22 service: No Current occupational status: retired Physical Exam Vital Signs: Vital Signs: Last Vital Signs Temp 97.4 F 10/08/22 16:39 Pulse 64 10/08/22 16:39 Resp 12 10/08/22 16:39 BP 196/79 H 10/08/22 17:45 Pulse Ox 97 10/08/22 16:39 O2 Del Method Room Air 10/08/22 16:39 BMI result Body Mass Index 27.8 VITAL SIGNS: Reviewed. GENERAL: Well developed, well nourished, in no acute distress. HEAD: Normocephalic/atraumatic, EYES: PERRLA, EOMI EARS: Ext canals without abnormality NOSE: Nares patent bilateral OROPHARYNX: no oral lesions noted, posterior pharynx clear NECK: Supple, no adenopathy LUNGS: Normal breath sounds. No adventitious sounds or accessory muscle use. SpO2<98> CARDIOVASCULAR: Regular rate and rhythm without noted murmurs, no JVD or lower extremity edema. ABDOMEN: Soft, non-tender, non-distended with bowel sounds. MUSCULOSKELETAL: No tenderness, deformities, or effusions noted on gross insp ection. EXTREMITIES: No cyanosis, clubbing or edema RIGHT TMA LEFT BKA SKIN: Inspection of the skin reveals no rashes, ulceration NEUROLOGIC: Alert and oriented x 4. Strength and sensation to light touch were grossly intact x 4, no facial asymmetry, no pronator drift. Medications Administered Discontinued Medications Generic Name Dose Route Start Last Admin Trade Name Tuckerq PRN Reason Stop Dose Admin Acetaminophen 975 mg 10/08/22 13:35 10/08/22 14:24 Acetaminophen 325 Mg Tablet PO 10/08/22 13:36 Not Given ONCE ONE Sodium Chloride 500 mls @ 999 mls/hr 10/08/22 14:30 10/08/22 17:25 Ns IV 10/08/22 15:00 Infused .Q31M ANNABELLA Infusion Calcium Gluconate 2 gm in 100 mls @ 400 mls/hr 10/08/22 14:29 10/08/22 17:25 Calcium Gluconate IV 10/08/22 14:43 Infused ONCE ONE Infusion Sodium Zirconium Cyclosilicate 10 gm 10/08/22 14:29 10/08/22 15:23 Sodium Zirconium Cyclosilicate 10 Gm Powd.Pack PO 10/08/22 14:30 10 gm ONCE ONE Administration Medical Decision Making Medical Decision Making [facility] Narrative: 1338: 67-year-old male with history and clinical presentation, DDX: Infection, anemia, electrolyte abnormalities, KEYA, hyperglycemia Diagnosis: Hyperkalemia with acute on chronic renal failure INTERVENTIONS: 10 mg with Lokelma, 2 g calcium gluconate, 500 cc normal saline I reviewed all investigations after repeat chemistries. Hematologic indices show a stable microcytic anemia without leukocytosis, there is a subtle left shift but no thrombocytopenia. Coagulation studies are with an normal limits. Initial chemistries demonstrated hyperkalemia with acute on chronic renal failure, patient received the above mentioned treatment and on re-evaluation hyperkalemia has resolved and creatinine is once again at baseline levels and patient has no other acute complaints and is completely asymptomatic at this point for visual changes or dizziness. It is noted that his glucose is under control at this time. Urinalysis is negative for infection or hematuria. My interpretation is that patient likely was experiencing dizziness and visual affects secondary to hyperglycemia that was not associated with any evidence to suggest DKA or HHS. Patient may have been experiencing nausea secondary to the metabolic and renal derangements that have since been corrected to his baseline status. I am discharging him home with instructions to check his blood pressure prior to taking his blood pressure medications and that if his blood pressure is not 110 systolic or higher that he should delay taking his blood pressure medications and recheck his blood pressure at noon time. I also strongly recommend that he follow-up with his primary care provider. Differential Diagnosis Differential Diagnoses: The differential diagnosis associated with the presentation includes Please see the discussion above Admission/Observation Consideration of admission/observation: Escalation of care including admission/observation considered Please see the discussion above Lab Data [facility] Lab Attestation statement: I reviewed the patient's lab results. Please see the discussion above 10/08/22 13:40 10/08/22 13:40 Labs: Lab Results 10/08/22 10/08/22 10/08/22 Range/Units 13:40 13:40 13:40 WBC 9.5 (4.8-10.8) X10*3/uL RBC 3.32 L (4.60-5.80) X10*6/uL Hgb 10.6 L (14.0-18.0) g/dl Hct 31.9 L (42.0-52.0) % MCV 96.1 (80.0-98.0) fL MCH 31.9 (27.0-33.0) pg MCHC 33.2 (31.0-36.0) g/dl RDW 11.9 (11.0-16.0) % Plt Count 282 (160-400) X10*3/uL MPV 10.1 (9.4-12.4) fL Immature Gran % (Auto) 0.4 (0.0-0.4) % Neut % (Auto) 81.1 H (45-73) % Lymph % (Auto) 8.6 L (20-40) % Kerr % (Auto) 7.9 (2-11) % Eos % (Auto) 1.4 (0-4) % Baso % (Auto) 0.6 (0-2) % Lymph # (Auto) 0.8 L (1.2-4.9) X10*3/uL Kerr # (Auto) 0.8 (0.1-1.2) X10*3/uL Eos # (Auto) 0.1 (0.0-0.4) X10*3/uL Baso # (Auto) 0.1 (0.0-0.2) X10*3/uL Abs Immat Gran (auto) 0.04 H (0.00-0.03) X10*3/uL Absolute Neuts (auto) 7.7 (2.0-8.3) x10*3/uL Absolute Nucleated RBC 0.000 (0.0-0.012) X10*3/uL Nucleated RBC % (auto) 0.0 (0.0-0.2) /100WBC PT 10.2 L (11.1-13.3) SEC INR 0.8 L (0.9-1.1) Sodium 142 (135-145) mmol/L Potassium 5.6 H D (3.3-5.1) mmol/L Chloride 110 H (96-108) mmol/L Carbon Dioxide 21 L (22-29) mmol/L Anion Gap 17 (12-20) BUN 45 H (9-16) mg/dL Creatinine 2.90 H (0.5-1.4) mg/dL Estim Creat Clear Calc 26.7 Estimated GFR 22 POC Glucose (60-115) mg/dL Random Glucose 193 H (60-115) mg/dL Calcium 9.5 D (8.4-10.2) mg/dL Total Bilirubin 0.3 (0.0-1.0) mg/dL AST 23 (5-37) U/L ALT 23 (0-40) U/L Alkaline Phosphatase 102 (39-117) U/L Troponin I High Sens (<3.5-35.0) ng/L Total Protein 7.0 (6.5-8.0) g/dL Albumin 3.3 L (3.5-5.0) g/dL Urine Color Urine Appearance Urine pH (5.0-9.0) Ur Specific [place] (1.005-1.025) Urine Protein (Neg-Trace) mg/dL Urine Glucose (UA) (Negative) mg/dL Urine Ketones (Negative) mg/dL Urine Blood (Negative) Urine Nitrite (Negative) Ur Leukocyte Esterase (Negative) Urine RBC (0-2) /HPF Urine WBC (0-5) /HPF Ur Squamous Epith Cells (0-2) /HPF Urine Bacteria (None Seen) Hyaline Casts (0-2) /LPF 10/08/22 10/08/22 10/08/22 Range/Units 13:40 14:11 16:36 WBC (4.8-10.8) X10*3/uL RBC (4.60-5.80) X10*6/uL Hgb (14.0-18.0) g/dl Hct (42.0-52.0) % MCV (80.0-98.0) fL MCH (27.0-33.0) pg MCHC (31.0-36.0) g/dl RDW (11.0-16.0) % Plt Count (160-400) X10*3/uL MPV (9.4-12.4) fL Immature Gran % (Auto) (0.0-0.4) % Neut % (Auto) (45-73) % Lymph % (Auto) (20-40) % Kerr % (Auto) (2-11) % Eos % (Auto) (0-4) % Baso % (Auto) (0-2) % Lymph # (Auto) (1.2-4.9) X10*3/uL Kerr # (Auto) (0.1-1.2) X10*3/uL Eos # (Auto) (0.0-0.4) X10*3/uL Baso # (Auto) (0.0-0.2) X10*3/uL Abs Immat Gran (auto) (0.00-0.03) X10*3/uL Absolute Neuts (auto) (2.0-8.3) x10*3/uL Absolute Nucleated RBC (0.0-0.012) X10*3/uL Nucleated RBC % (auto) (0.0-0.2) /100WBC PT (11.1-13.3) SEC INR (0.9-1.1) Sodium (135-145) mmol/L Potassium (3.3-5.1) mmol/L Chloride (96-108) mmol/L Carbon Dioxide (22-29) mmol/L Anion Gap (12-20) BUN (9-16) mg/dL Creatinine (0.5-1.4) mg/dL Estim Creat Clear Calc Estimated GFR POC Glucose 154 H (60-115) mg/dL Random Glucose (60-115) mg/dL Calcium (8.4-10.2) mg/dL Total Bilirubin (0.0-1.0) mg/dL AST (5-37) U/L ALT (0-40) U/L Alkaline Phosphatase (39-117) U/L Troponin I High Sens 20.6 (<3.5-35.0) ng/L Total Protein (6.5-8.0) g/dL Albumin (3.5-5.0) g/dL Urine Color Yellow Urine Appearance Clear Urine pH 5.5 (5.0-9.0) Ur Specific [place] 1.010 (1.005-1.025) Urine Protein 300 (3+) H (Neg-Trace) mg/dL Urine Glucose (UA) Negative (Negative) mg/dL Urine Ketones Negative (Negative) mg/dL Urine Blood Negative (Negative) Urine Nitrite Negative (Negative) Ur Leukocyte Esterase Negative (Negative) Urine RBC 0-2 (0-2) /HPF Urine WBC 0-5 (0-5) /HPF Ur Squamous Epith Cells 0-2 (0-2) /HPF Urine Bacteria None Seen (None Seen) Hyaline Casts 3-5 (0-2) /LPF 10/08/22 Range/Units 18:14 WBC (4.8-10.8) X10*3/uL RBC (4.60-5.80) X10*6/uL Hgb (14.0-18.0) g/dl Hct (42.0-52.0) % MCV (80.0-98.0) fL MCH (27.0-33.0) pg MCHC (31.0-36.0) g/dl RDW (11.0-16.0) % Plt Count (160-400) X10*3/uL MPV (9.4-12.4) fL Immature Gran % (Auto) (0.0-0.4) % Neut % (Auto) (45-73) % Lymph % (Auto) (20-40) % Kerr % (Auto) (2-11) % Eos % (Auto) (0-4) % Baso % (Auto) (0-2) % Lymph # (Auto) (1.2-4.9) X10*3/uL Kerr # (Auto) (0.1-1.2) X10*3/uL Eos # (Auto) (0.0-0.4) X10*3/uL Baso # (Auto) (0.0-0.2) X10*3/uL Abs Immat Gran (auto) (0.00-0.03) X10*3/uL Absolute Neuts (auto) (2.0-8.3) x10*3/uL Absolute Nucleated RBC (0.0-0.012) X10*3/uL Nucleated RBC % (auto) (0.0-0.2) /100WBC PT (11.1-13.3) SEC INR (0.9-1.1) Sodium 143 (135-145) mmol/L Potassium 4.4 D (3.3-5.1) mmol/L Chloride 112 H (96-108) mmol/L Carbon Dioxide 18 L (22-29) mmol/L Anion Gap 17 (12-20) BUN 43 H (9-16) mg/dL Creatinine 2.49 H (0.5-1.4) mg/dL Estim Creat Clear Calc 31.1 Estimated GFR 26 POC Glucose (60-115) mg/dL Random Glucose 64 (60-115) mg/dL Calcium 10.0 (8.4-10.2) mg/dL Total Bilirubin (0.0-1.0) mg/dL AST (5-37) U/L ALT (0-40) U/L Alkaline Phosphatase (39-117) U/L Troponin I High Sens (<3.5-35.0) ng/L Total Protein (6.5-8.0) g/dL Albumin (3.5-5.0) g/dL Urine Color Urine Appearance Urine pH (5.0-9.0) Ur Specific [place] (1.005-1.025) Urine Protein (Neg-Trace) mg/dL Urine Glucose (UA) (Negative) mg/dL Urine Ketones (Negative) mg/dL Urine Blood (Negative) Urine Nitrite (Negative) Ur Leukocyte Esterase (Negative) Urine RBC (0-2) /HPF Urine WBC (0-5) /HPF Ur Squamous Epith Cells (0-2) /HPF Urine Bacteria (None Seen) Hyaline Casts (0-2) /LPF Independent Interpretation I performed an independent interpretation of an: EKG Interpretation: Sinus bradycardia with first-degree AV block (AV block is at baseline), HR-49, no STEMI, QRS/QTC is within normal limits, CT-242 Chronic Conditions Patient?s care impacted by: Diabetes and Hypertension CKD Critical Care Time Critical Care Time Critical Care Time: Yes Total Critical Care Time: 30 Attestation: I personally attest to this time spent taking care of the patient. Discharge Plan Discharge Clinical Impression: Hyperglycemia, Dizziness, KEYA (acute kidney injury) Patient Disposition: Home, Self-Care Instructions: Acute Kidney Injury (DC), Lightheadedness (ED), Diabetic Hyperglycemia (ED) Additional Instructions: 1. Reanudar todos los medicamentos caseros seg?n lo prescrito. 2. Le recomiendo que controle chavarria presi?n arterial antes de whit jaguar medi camentos para la presi?n arterial. Si chavarria presi?n arterial sist?lica (el n?jayda superior) no es superior a 110, retrase la ashley de jaguar medicamentos para la presi?n arterial y vuelva a controlar chavarria presi?n arterial al mediod?a. 3. Llame a la oficina de chavarria proveedor de atenci?n primaria por la ma?shakeel para programar bryan wander para la reevaluaci?n. Regrese a la shemar de emergencias si los s?ntomas empeoran. 1. Resume all home medications as prescribed. 2. I recommend that you check your blood pressure prior to taking your blood pressure medications. If your systolic blood pressure (the top number) is not higher than 110 then please delay taking your blood pressure medications and rec heck your blood pressure at noon. 3. Please call the office of your primary care provider in the morning to set up an appointment for re-evaluation. Return to the ER for any worsening symptoms. Prescriptions: No Action tamsulosin 0.4 mg capsule 0.4 mg PO BEDTIME Qty: 30 2RF gabapentin 100 mg capsule 100 mg PO TID furosemide 40 mg tablet 40 mg PO BID Qty: 60 5RF metoprolol succinate 100 mg tablet extended release 24 hr 100 mg PO DAILY 30 Days Qty: 30 5RF spironolactone 25 mg tablet 25 mg PO DAILY Qty: 30 5RF Protocol: Hold for SBP< HOLD for SBP < : 90 isosorbide mononitrate 60 mg tablet extended release 24 hr 60 mg PO DAILY Qty: 30 5RF Protocol: Hold for SBP< HOLD for SBP < : 90 glipizide 10 mg Tablet 10 mg PO BIDWM Qty: 60 0RF insulin degludec [Tresiba FlexTouch U-100] 100 unit/mL (3 mL) insulin pen 25 unit subcut BEDTIME docusate sodium 100 mg Capsule 100 mg PO BEDTIME Qty: 30 0RF losartan 50 mg tablet 100 mg PO DAILY hydralazine 50 mg tablet 100 mg PO TID Protocol: Hold for SBP< HOLD for SBP < : 90 amlodipine 10 mg tablet 10 mg PO BEDTIME Protocol: Hold for SBP< HOLD for SBP < : 90 Lokelma 5 gram powder in packet 5 g PO Q2D nifedipine 60 mg Tablet Extended Release 24hr 60 mg PO DAILY Qty: 30 0RF Protocol: Hold for SBP< HOLD for SBP < : 90 Januvia 100 mg tablet 100 mg PO DAILY sertraline 50 mg tablet 50 mg PO DAILY fluticasone propionate 50 mcg/actuation spray,suspension 2 spray intranasal DAILY PRN (Reason: Nasal Congestion) metformin 1,000 mg tablet 1,000 mg PO BID atorvastatin 80 mg tablet 80 mg PO BEDTIME cyclobenzaprine 5 mg tablet 5 mg PO BEDTIME nabumetone 500 mg tablet 500 mg PO BID Referrals: Marline Richard MD [Primary Care Provider] - Print Language: Ugandan
[2022-10-08 13:53] LABS: MANUAL DIFF FLAG NO
[2022-10-08 13:59] LABS: Basophils Absolute Auto 0.1 X10*3/uL (0.0-0.2); Basophils Percent Auto 0.6 % (0-2); Eosinophils Absolute Auto 0.1 X10*3/uL (0.0-0.4); Eosinophils Percent Auto 1.4 % (0-4); Hematocrit 31.9 % (42.0-52.0); Hemoglobin 10.6 g/dl (14.0-18.0); Imm Gran Abs Auto 0.04 X10*3/uL (0.00-0.03); Imm Gran Pct Auto 0.4 % (0.0-0.4); Lymphocytes Absolute Auto 0.8 X10*3/uL (1.2-4.9); Lymphocytes Percent Auto 8.6 % (20-40); Mean Corpuscular HGB Conc 33.2 g/dl (31.0-36.0); Mean Corpuscular Hemoglobin 31.9 pg (27.0-33.0); Mean Corpuscular Volume 96.1 fL (80.0-98.0); Mean Platelet Volume 10.1 fL (9.4-12.4); Monocytes Absolute Auto 0.8 X10*3/uL (0.1-1.2); Monocytes Percent Auto 7.9 % (2-11); Neutrophils Absolute Auto 7.7 x10*3/uL (2.0-8.3); Neutrophils Percent Auto 81.1 % (45-73); Platelet Count 282 X10*3/uL (160-400); Red Blood Count 3.32 X10*6/uL (4.60-5.80); Red Cell Distribution Width 11.9 % (11.0-16.0); White Blood Count 9.5 X10*3/uL (4.8-10.8)
[2022-10-08 14:01] LABS: INTERNATIONAL NORM RATIO 0.8 (0.9-1.1); Prothrombin Time 10.2 SEC (11.1-13.3)
[2022-10-08 14:10] LABS: Alanine Aminotransferase 23 U/L (0-40); Albumin Level 3.3 g/dL (3.5-5.0); Alkaline Phosphatase 102 U/L (39-117); Anion Gap 17 (12-20); Aspartate Amino Transferase 23 U/L (5-37); Bilirubin Total 0.3 mg/dL (0.0-1.0); Blood Urea Nitrogen 45 mg/dL (9-16); Calcium 9.5 mg/dL (8.4-10.2); Carbon Dioxide 21 mmol/L (22-29); Chloride 110 mmol/L (96-108); Creatinine Clr Calc Pharmacy 26.7; Estimated Glomerular Filt Rate 22; Glucose Random 193 mg/dL (60-115); Potassium 5.6 mmol/L (3.3-5.1); Sodium 142 mmol/L (135-145)
[2022-10-08 14:15] LABS: Glucose, Whole Blood 154 mg/dL (60-115)
[2022-10-08 14:17] LABS: Troponin-I High Sensitivity 20.6 ng/L (<3.5-35.0)
[2022-10-08] MEDS: 0.9 % Sodium Chloride 500 ML 999 ML IV (15:22)
[2022-10-08] MEDS: Calcium Gluconate/NaCl,Iso-Osm 2 GM/100 ML PLAST..BAG IV (15:22)
[2022-10-08] MEDS: Sodium Zirconium Cyclosilicate 10 GM POWD.PACK PO (15:23)
--- NOTE | 2022-10-08 16:30 | MHC.EDTECH ---
per day pct brandi, orthostatic vitals not to be done d/t pt's LE amputation. rn aware
[2022-10-08 16:53] LABS: Appearance Urine Clear; Color Urine Yellow; Glucose Urine UA Negative (Negative); Leukocyte Esterase Urine Negative (Negative); Nitrite Urine Negative (Negative); PH 5.5 (5.0-9.0); UMIC TRIGGER UACC YES; Urine Blood Negative (Negative); Urine Ketones Negative (Negative); Urine Protein 300 (3+) mg/dL (Neg-Trace)
[2022-10-08 17:32] LABS: Bacteria Urine None Seen (None Seen); RBC Urine 0-2 /HPF (0-2); Squamous Epithelial Cell Urine 0-2 /HPF (0-2); WBC Urine 0-5 /HPF (0-5)
[2022-10-08 18:37] LABS: Anion Gap 17 (12-20); Blood Urea Nitrogen 43 mg/dL (9-16); Carbon Dioxide 18 mmol/L (22-29); Chloride 112 mmol/L (96-108); Creatinine Clr Calc Pharmacy 31.1; Estimated Glomerular Filt Rate 26; Glucose Random 64 mg/dL (60-115); Potassium 4.4 mmol/L (3.3-5.1); Sodium 143 mmol/L (135-145)
[2022-10-08] MEDS: hydrALAZINE HCl 50 MG TABLET PO (18:43)
== END 2022-10-08 19:22 | disposition home or self-care (01) ==
PROVIDERS: Emergency Provider Student in an Organized Health Care Education/Training Program; PCP General Practice
DX: R42 Dizziness and giddiness (principal); E11.22 Type 2 diabetes mellitus with diabetic chronic kidney disease; E11.65 Type 2 diabetes mellitus with hyperglycemia; I13.0 Hypertensive heart and chronic kidney disease with heart failure and stage 1 through stage 4 chronic kidney disease, or unspecified chronic kidney disease; N18.30 Chronic kidney disease, stage 3 unspecified; I50.30 Unspecified diastolic (congestive) heart failure; N17.9 Acute kidney failure, unspecified; E78.5 Hyperlipidemia, unspecified; Z87.891 Personal history of nicotine dependence; Z79.4 Long term (current) use of insulin; Z79.899 Other long term (current) drug therapy
CPT/HCPCS: 36415; 80048; 80053; 81001; 82947; 84484; 85025; 85610; 93005; 96361; 96374; 99285; J0613

== ENCOUNTER → 2022-10-08 13:06 | Outpatient (BNV) | payer OTHER, SELFPAY | PROVIDERS: Emergency Provider Student in an Organized Health Care Education/Training Program; PCP General Practice; Visit Provider Internal Medicine | DX: I44.0 Atrioventricular block, first degree (principal); R94.31 Abnormal electrocardiogram [ECG] [EKG] | CPT/HCPCS: 93010 ==

== ENCOUNTER 2022-10-09 14:49 | Outpatient (AMB) | payer OTHER, SELFPAY ==
--- NOTE | 2022-10-09 15:05 | MHC.OFFVIS ---
Intake Vital Signs 10/09/22 15:06 Height 5 ft 9 in BMI Reason not done Patient refused/unable BP 128/68 Blood Pressure Location Lt brachial Position Sitting Pulse 64 Pulse Source Pulse Oximeter Intake Visit Reasons: 6 mth follow up Intake Note: 6 month follow up. Bomb Loader Required: Yes Bomb Loader Language: Machine Heel Builder Name: Martha Huang numberFire Ipad. Accompanied by: Self / Same As Patient Allergies metformin Adverse Reaction (Verified 10/09/22 15:09) Unknown Medication List - Last Reconciled 10/09/22 by Elia Bonilla MD amlodipine 10 mg See Protocol PO BEDTIME atorvastatin 80 mg PO BEDTIME cyclobenzaprine 5 mg PO BEDTIME docusate sodium 100 mg PO BEDTIME fluticasone propionate 50 mcg/actuation 2 sprays intranasal DAILY PRN furosemide 40 mg PO BID gabapentin 100 mg PO TID glipizide 10 mg PO BIDWM hydralazine 100 mg See Protocol PO TID insulin degludec (Tresiba FlexTouch U-100 insulin) 25 units subcut BEDTIME isosorbide mononitrate ER 60 mg See Protocol PO DAILY losartan 100 mg PO DAILY metformin 1,000 mg PO BID metoprolol succinate ER 100 mg PO DAILY 30 days nabumetone 500 mg PO BID nifedipine ER 60 mg See Protocol PO DAILY sertraline 50 mg PO DAILY sitagliptin phosphate (Januvia) 100 mg PO DAILY sodium zirconium cyclosilicate (Lokelma) 5 grams PO Q2D spironolactone 25 mg See Protocol PO DAILY tamsulosin 0.4 mg PO BEDTIME HPI HPI Comments History of Present Illness Details Kingsley comes for follow up. History was obtained with help of interface control officer. He came to the emergency room last night with lightheadedness and fuzzy vision and was noted to have low blood pressure. Comes today his blood pressures improved. Noted his medication list and he is both on amlodipine and nifedipine. Confirm with the help of interface control officer and he says he is taking both. This is highly unusual. He has not had any heart failure symptoms. Denies any worsening shortness of breath, orthopnea, PND. Currently not walking due to left below-knee amputation. Uses a wheelchair. Denies any orthopnea, PND, leg edema. [facility] Medical History (Updated 10/10/22 @ 15:29 by Elia Bonilla MD) (HFpEF) heart failure with preserved ejection fraction CKD (chronic kidney disease) stage 3, GFR 30-59 ml/min CKD stage 3 due to type 2 diabetes mellitus Diabetes High cholesterol HTN (hypertension) Hyperlipidemia associated with type 2 diabetes mellitus LIVE (iron deficiency anemia) Kidney disease Osteomyelitis PAD (peripheral artery disease) Type 2 diabetes mellitus Surgical History H/O shoulder surgery History of amputation of right forefoot Hx of amputation Status post transmetatarsal amputation of left foot Family History Other No family history of coronary artery disease Social History Household Members: None Housing: Apartment Do you presently have visiting nurse or other home services: Yes Alcohol intake: current Alcohol intake frequency: a few times a month Alcohol type: beer Patient Tobacco Use Status: Former Tobacco user Quit Date: >20yr ago Tobacco use type: Cigarette Substance Use Type: Crack/Cocaine Advance Directives Date on File: 02/02/22 service: No Current occupational status: retired Review of Systems Const Denies weakness ENT Denies dizziness Card Denies chest pain, Denies chest pain with activity, Denies syncope, Denies rapid heart rate, Denies pedal edema, Denies edema, Denies leg edema, Denies lightheadedness, Denies palpitations, Denies dyspnea, Denies dyspnea on exertion and Denies orthopnea Resp Denies cough, Denies dyspnea and Denies dyspnea on exertion GI Denies hematochezia and Denies change in stool character Musc Denies abnormal gait, Denies muscle cramps, Denies muscle weakness, Denies numbness, Denies radiating pain into limb and Denies tingling Neuro Denies abnormal gait, Denies dizziness, Denies syncope, Denies numbness, Denies tingling and Denies weakness Endo Denies palpitations Physical Exam Vital Signs: Last Vital Signs Pulse 64 10/09/22 15:06 BP 128/68 10/09/22 15:06 Const General: cooperative, healthy appearing, comfortable and no acute distress Orientation/consciousness: patient oriented x3 Neck Neck: Yes normal visual inspection and Yes no JVD Carotids: normal carotid upstroke Resp Effort & Inspection: normal respiratory effort Auscultation: clear to auscultation bilaterally, no crackles, no rales, no rhonchi and no wheezes Cardio Jugular venous distension: no JVD Rate: regular rate Rhythm: regular rhythm Heart sounds: S1 normal heart sound present, S2 normal heart sound present, no gallops, no murmurs and no rubs GI Inspection: Yes normal to inspection Neuro General: patient oriented x3 Extrem Other: Left BKA with gauze dressing on. General: Yes no clubbing, cyanosis or edema and Yes other (Left below-knee amputation) Psych Appearance: grossly normal Mental Status: mental status grossly normal Speech and movement: Normal speech and movement present Assessment & Plan Assessment & Plan (1) (HFpEF) heart failure with preserved ejection fraction: Code(s): I50.30 - Unspecified diastolic (congestive) heart failure Plan: Heart failure preserved ejection fraction, clinically euvolemic and well compensated. This is related to untreated hypertension the past. Currently doing well. Heart failure management discussed with help of interface control officer. Continue current diuretic regimen. Daily weight monitoring avoidance of salt loading was discussed. Continue monitor renal function closely probably every 4-6 weeks, closely followed by Nephrology as well. Continue aggressive control blood pressure, see below. He gradually improving activity level should be pursued. (2) Uncontrolled hypertension: Code(s): I10 - Essential (primary) hypertension Plan: Uncontrolled hypertension the past probably related noncompliance. Currently blood pressure appears to be over corrected. He is on 2 calcium channel blockers both amlodipine and nifedipine. And he had tested he is taking both of them. I have discontinued nifedipine therapy. Advised to closely follow blood pressure at home. If blood pressure remains aggressively controlled and on the lower side may need to taper amlodipine therapy slowly. Low-salt diet was discussed adequate hydration was discussed. Will follow up in the clinic in 6 months time, sooner p.r.n.. Thank you for allowing me to partake in his care Orders: Orders CA echo transthoracic complete 6 Months I50.30 - Unspecified diastolic (congestive) heart failure Medications: Discontinued amlodipine 10 mg See Protocol PO DAILY@1700 30 days 30 tabs 0RF sodium zirconium cyclosilicate 5 grams PO Q OTHER DAY 30 ea 0RF nifedipine ER Discontinued Reason: Doctor's Order 60 mg See Protocol PO DAILY 30 tabs 0RF hydralazine 50 mg See Protocol PO TID 90 tabs 0RF spironolactone Discontinued Reason: Patient no longer taking 25 mg See Protocol PO DAILY 30 tabs 5RF losartan 100 mg (2 x 50 mg) PO QAM 60 tabs 0RF Coding Level of Care Code Est Pt Level 4 (84344) Diagnoses (HFpEF) heart failure with preserved ejection fraction I50.30 Uncontrolled hypertension I10
[2022-10-09 15:06] VITALS: BP 128/68; PULSE 64
== END 2022-10-09 15:24 | disposition home or self-care (01) ==
PROVIDERS: Visit Provider Internal Medicine Cardiovascular Disease
DX: I50.30 Unspecified diastolic (congestive) heart failure (principal); I10 Essential (primary) hypertension
CPT/HCPCS: 99214

== ENCOUNTER → 2022-10-09 14:49 | Outpatient (BNVA) | payer OTHER, SELFPAY | PROVIDERS: Visit Provider Internal Medicine Cardiovascular Disease | DX: I11.0 Hypertensive heart disease with heart failure (principal); I50.30 Unspecified diastolic (congestive) heart failure | CPT/HCPCS: 99212 ==

== ENCOUNTER 2022-11-27 10:18 | Outpatient (REF) | payer OTHER, SELFPAY ==
[2022-11-27 12:08] LABS: Hematocrit 28.8 % (42.0-52.0); Hemoglobin 9.6 g/dl (14.0-18.0); Mean Corpuscular HGB Conc 33.3 g/dl (31.0-36.0); Mean Corpuscular Hemoglobin 31.9 pg (27.0-33.0); Mean Corpuscular Volume 95.7 fL (80.0-98.0); Mean Platelet Volume 10.2 fL (9.4-12.4); Platelet Count 252 X10*3/uL (160-400); Red Blood Count 3.01 X10*6/uL (4.60-5.80); White Blood Count 8.4 X10*3/uL (4.8-10.8)
[2022-11-27 12:18] LABS: Appearance Urine Clear; Color Urine Yellow; Glucose Urine UA Negative (Negative); Leukocyte Esterase Urine Negative (Negative); Nitrite Urine Negative (Negative); PH 5.5 (5.0-9.0); Specific Gravity - Urine 1.015 (1.005-1.025); UMIC TRIGGER UA YES; Urine Blood Negative (Negative); Urine Ketones Negative (Negative); Urine Protein 300 (3+) mg/dL (Neg-Trace)
[2022-11-27 12:21] LABS: Bacteria Urine None Seen (None Seen); Hyaline Casts Urine 0-2 /LPF (0-2); RBC Urine 0-2 /HPF (0-2); Squamous Epithelial Cell Urine 0-2 /HPF (0-2); WBC Urine 0-5 /HPF (0-5)
[2022-11-27 13:05] LABS: Vitamin D 25-OH Total 25.9 ng/mL (>30)
[2022-11-27 13:10] LABS: Phosphorus 3.8 mg/dL (2.7-4.5)
[2022-11-27 13:11] LABS: Anion Gap 13 (12-20); Blood Urea Nitrogen 55 mg/dL (9-16); Calcium 8.9 mg/dL (8.4-10.2); Carbon Dioxide 26 mmol/L (22-29); Chloride 108 mmol/L (96-108); Estimated Glomerular Filt Rate 21; Potassium 4.4 mmol/L (3.3-5.1); Sodium 143 mmol/L (135-145)
[2022-11-27 13:12] LABS: PSA,Total (Free>4and<10) 0.83 ng/mL (0.00-4.00)
[2022-11-27 14:01] LABS: Magnesium 1.4 mg/dL (1.6-2.6)
[2022-11-27 14:30] LABS: Creatinine Urine 65.42 mg/dL
[2022-11-27 15:09] LABS: Microalbumin Urine > 2000.0 mg/L
[2022-11-27 16:12] LABS: Protein/Creatinine Ratio, Ur 7.31 (<0.2); Total Protein Urine Random 478 mg/dL (<12)
[2022-11-28 17:58] LABS: Calcium (PTHI) 8.7 mg/dL (8.6-10.3); PTHI 64 pg/mL (16-77)
== END 2022-11-27 10:19 | disposition home or self-care (01) ==
LOC: HO.LAB 10:18
PROVIDERS: Urology; PCP General Practice; Visit Provider Internal Medicine Nephrology
DX: E11.22 Type 2 diabetes mellitus with diabetic chronic kidney disease (principal); N40.1 Benign prostatic hyperplasia with lower urinary tract symptoms; N18.4 Chronic kidney disease, stage 4 (severe); N25.0 Renal osteodystrophy; Z12.5 Encounter for screening for malignant neoplasm of prostate
CPT/HCPCS: 36415; 80051; 81001; 82040; 82043; 82306; 82310; 82565; 82570; 83735; 83970; 84100; 84153; 84156; 84520; 85027

== ENCOUNTER 2022-12-11 12:42 | Outpatient (AMB) | payer OTHER, SELFPAY ==
--- NOTE | 2022-12-11 14:13 | A.OFFVIS_ITS ---
Intake Intake Visit Reasons: 3m/PSA(set) Intake Note: Patient is Present for Telephone Follow Up For PSA Urology Med: Tamsulosin Antibiotic Allergy: None Blood Thinner:None Pharamcy: [facility] Allergies metformin Adverse Reaction (Verified 10/09/22 15:09) Unknown HPI HPI Comments History of Present Illness Details Kingsley is a pleasant male. He is a patient of Dr. Mccullough. He is seen for the following urologic conditions - erectile dysfunction Telemedicine Evaluation 15 min Consultation [employer] Ginger Video Hong [place]er translation provided by qualified medical coding manager Lab work reviewed. Testosterone not performed. PSA low Not responsive to oral medications Would like to try TriMix - discussed compounding pharmacy with non-insurance payment Erectile dysfunction in setting of diabetes Progressive Insulin-dependent diabetic since 2021 Diabetic since 1999 - microvascular complications with nonhealing also lower extremity, diabetic foot in infection Former cigarette smoker Baseline labs - 12/01 - P 0.8 [facility] Medical History (Updated 12/26/22 @ 10:31 by Edil Montano MD) Erectile dysfunction CKD (chronic kidney disease) stage 3, GFR 30-59 ml/min (HFpEF) heart failure with preserved ejection fraction Osteomyelitis CKD stage 3 due to type 2 diabetes mellitus LIVE (iron deficiency anemia) Hyperlipidemia associated with type 2 diabetes mellitus Type 2 diabetes mellitus Kidney disease High cholesterol HTN (hypertension) Diabetes PAD (peripheral artery disease) Surgical History Status post transmetatarsal amputation of left foot Hx of amputation History of amputation of right forefoot H/O shoulder surgery Family History Other No family history of coronary artery disease Social History Household Members: None Housing: Apartment Do you presently have visiting nurse or other home services: Yes Alcohol intake: current Alcohol intake frequency: a few times a month Alcohol type: beer Patient Tobacco Use Status: Former Tobacco user Quit Date: >20yr ago Tobacco use type: Cigarette Substance Use Type: Crack/Cocaine Advance Directives Date on File: 02/02/22 service: No Current occupational status: retired Review of Systems Const All systems reviewed & are unremarkable except as noted in HPI and below Reports no additional complaints Resp Reports no additional complaints GI Reports no additional complaints Reports as per HPI Musc Reports no additional complaints Physical Exam Telemedicine evaluation Appropriate responses Regular breathing rate and rhythm HEENT Head: Yes normal to inspection Ears: hearing grossly normal bilaterally Eyes General: appearance normal, both eyes and all related structures Neck Neck: Yes normal visual inspection Chest Chest palpation & inspection: normal inspection of the chest Resp Effort & Inspection: normal respiratory effort and able to speak in complete sentences Assessment & Plan Assessment & Plan (1) Benign prostatic hyperplasia: Code(s): N40.0 - Benign prostatic hyperplasia without lower urinary tract symptoms Qualifiers: Lower urinary tract symptom presence: symptoms present Lower urinary tract symptom detail: post-void dribbling Qualified Code(s): N40.1 - Benign prostatic hyperplasia with lower urinary tract symptoms; N39.43 - Post-void dribbling (2) Erectile dysfunction associated with type 2 diabetes mellitus: Code(s): E11.69 - Type 2 diabetes mellitus with other specified complication; N52.1 - Erectile dysfunction due to diseases classified elsewhere Plan Will call if gets injectable Orders: Orders PSA,Total (Free>4and<10) 11/27/22 N40.1 - Benign prostatic hyperplasia with lower urinary tract symptoms Patient Instructions: Imaging studies, laboratory and physical exam results were discussed and reviewed in detail. No major barriers to patient understanding were identified. An opportunity to ask questions regarding the treatment plan was provided. All questions were answered. The patient expressed understanding and agreement with the above treatment plan. The patient is aware they should contact our office by phone for worsening of their current condition or the appearance of new urologic symptoms. Compliance is encouraged with any medications and followup testing that is ordered. It is a privilege to participate in the urologic care of your patient. If you have any questions or concerns regarding treatment for the above conditions, or other urologic issues, please do not hesitate to contact me. The office telephone contact is [phone]. This note is constructed using voice recognition software. While every effort has been made to ensure accuracy electric switch repairer errors may have been included. Yours sincerely, Dr Edil Montano MD, [facility] - Urology Providers of Expert, Compassionate Care for the Genitourinary System Telehealth Telehealth Location of provider rendering services: practice address Location of patient: address on file Patient Identification confirmed using: Name, : Yes Telehealth method: video Patient verbally consented to treatment: Yes Patient verbally consented to billing insurance company: Yes Patient informed of any privacy concerns related to visit: Yes Coding Level of Care Code Tele Est Pt Level 4 (85230) Diagnoses Benign prostatic hyperplasia with post-void dribbling N40.1; N39.43 Lower urinary tract symptom presence: symptoms present Lower urinary tract symptom detail: post-void dribbling Erectile dysfunction associated with type 2 diabetes mellitus E11.69; N52.1
== END 2022-12-12 15:26 | disposition home or self-care (01) ==
PROVIDERS: PCP General Practice; Visit Provider Urology
DX: N40.1 Benign prostatic hyperplasia with lower urinary tract symptoms (principal); N39.43 Post-void dribbling; E11.69 Type 2 diabetes mellitus with other specified complication; N52.1 Erectile dysfunction due to diseases classified elsewhere
CPT/HCPCS: 99213

== ENCOUNTER → 2022-12-11 12:42 | Outpatient (BNVA) | payer OTHER, SELFPAY | PROVIDERS: PCP General Practice; Visit Provider Urology ==

== ENCOUNTER 2023-01-01 13:07 | Outpatient (AMB) | payer OTHER, SELFPAY ==
--- NOTE | 2023-01-01 13:27 | MHC.OFFVIS ---
Intake Intake Visit Reasons: Edex inject Intake Note: Patient is Present for Follow Up Edex Injection Teaching Urology Medication: Tamsulosin, Edex Antibiotic Allergies: None Blood Thinners: None Pharmacy: [facility] Pharmacy Allergies metformin Adverse Reaction (Verified 01/01/23 13:30) Unknown HPI HPI Comments History of Present Illness Details Kingsley is a pleasant male. He is a patient of Dr. Mccullough. He is seen for the following urologic conditions - erectile dysfunction Here for penile injection dose testing Injection performed in office 30 units of TriMix 50% response Trial 45 units Printed information provided Erectile dysfunction in setting of diabetes Progressive Insulin-dependent diabetic since 2021 Diabetic since 1999 - microvascular complications with nonhealing also lower extremity, diabetic foot in infection Former cigarette smoker Baseline labs - 12/01 - P 0.8 PFSH Medical History Erectile dysfunction CKD (chronic kidney disease) stage 3, GFR 30-59 ml/min (HFpEF) heart failure with preserved ejection fraction Osteomyelitis CKD stage 3 due to type 2 diabetes mellitus LIVE (iron deficiency anemia) Hyperlipidemia associated with type 2 diabetes mellitus Type 2 diabetes mellitus Kidney disease High cholesterol HTN (hypertension) Diabetes PAD (peripheral artery disease) Surgical History Status post transmetatarsal amputation of left foot Hx of amputation History of amputation of right forefoot H/O shoulder surgery Family History Other No family history of coronary artery disease Social History Household Members: None Housing: Apartment Do you presently have visiting nurse or other home services: Yes Alcohol intake: current Alcohol intake frequency: a few times a month Alcohol type: beer Patient Tobacco Use Status: Former Tobacco user Quit Date: >20yr ago Tobacco use type: Cigarette Substance Use Type: Crack/Cocaine Advance Directives Date on File: 02/02/22 service: No Current occupational status: retired Review of Systems Const Denies chills and Denies fever(s) Card Reports no additional complaints and Denies syncope Resp Denies cough GI Denies abdominal pain and Denies heartburn Reports as per HPI and Denies change in libido Neuro Denies syncope Psych Denies change in libido Endo Denies change in libido Physical Exam Const General: cooperative, healthy appearing, comfortable and no acute distress Orientation/consciousness: patient oriented x3 HEENT Face and sinus: Yes normal facial exam Mouth: moist mucous membranes Neck Neck: Yes normal visual inspection, Yes full ROM and Yes trachea midline Chest Chest palpation & inspection: normal inspection of the chest Resp Effort & Inspection: normal respiratory effort, able to speak in complete sentences and no respiratory distress GI Inspection: Yes normal to inspection Back/Spine/Pelvis Cervical Spine: normal cervical lordosis Thoracic/Lumbar Spine: thoracic and lumbar spine normal to inspection Skin General skin exam: no rashes or lesions noted Neuro General: patient oriented x3, gait normal, tone normal and moves all extremities Extrem General: Yes normal to inspection and Yes capillary refill normal Office Procedures Procedure Thyroid Biopsy Procedural Documentation: Penile injection Here for dose range testing of TriMix 30 units TriMix Injected into right mid corporal body 40% effective Patient displayed knowledge and understanding to perform injections at home CPT 29761 Assessment & Plan Assessment & Plan (1) Erectile dysfunction associated with type 2 diabetes mellitus: Code(s): E11.69 - Type 2 diabetes mellitus with other specified complication; N52.1 - Erectile dysfunction due to diseases classified elsewhere Plan Trial 45 units Patient Instructions: Imaging studies, laboratory and physical exam results were discussed and reviewed in detail. No major barriers to patient understanding were identified. An opportunity to ask questions regarding the treatment plan was provided. All questions were answered. The patient expressed understanding and agreement with the above treatment plan. The patient is aware they should contact our office by phone for worsening of their current condition or the appearance of new urologic symptoms. Compliance is encouraged with any medications and followup testing that is ordered. It is a privilege to participate in the urologic care of your patient. If you have any questions or concerns regarding treatment for the above conditions, or other urologic issues, please do not hesitate to contact me. The office telephone contact is [phone]. This note is constructed using voice recognition software. While every effort has been made to ensure accuracy supervisor transferring and boxing errors may have been included. Yours sincerely, Dr Edil Montano MD, [facility] - Urology Providers of Expert, Compassionate Care for the Genitourinary System Coding Level of Care Code Est Pt Level 4 (22673) Diagnoses Erectile dysfunction associated with type 2 diabetes mellitus E11.69; N52.1
== END 2023-01-01 15:21 | disposition home or self-care (01) ==
PROVIDERS: PCP General Practice; Visit Provider Urology
DX: E11.69 Type 2 diabetes mellitus with other specified complication (principal); N52.1 Erectile dysfunction due to diseases classified elsewhere
CPT/HCPCS: 99214

== ENCOUNTER → 2023-01-01 13:07 | Outpatient (BNVA) | payer OTHER, SELFPAY | PROVIDERS: PCP General Practice; Visit Provider Urology | DX: E11.69 Type 2 diabetes mellitus with other specified complication (principal); N52.1 Erectile dysfunction due to diseases classified elsewhere; E11.22 Type 2 diabetes mellitus with diabetic chronic kidney disease; E11.65 Type 2 diabetes mellitus with hyperglycemia; I13.0 Hypertensive heart and chronic kidney disease with heart failure and stage 1 through stage 4 chronic kidney disease, or unspecified chronic kidney disease; N18.30 Chronic kidney disease, stage 3 unspecified; I50.30 Unspecified diastolic (congestive) heart failure; Z87.891 Personal history of nicotine dependence | CPT/HCPCS: 99212 ==

== ENCOUNTER 2023-01-12 21:35 | Inpatient (IN) | payer OTHER, SELFPAY ==
--- NOTE | ~2023-01-12 | XR_ITS ---
EXAMINATION: XR CHEST CLINICAL INFORMATION: Shortness of breath. COMPARISON: Chest x-ray September 28, 2022 TECHNIQUE: Frontal portable view of the chest was obtained. 2247 hours FINDINGS: Heart size enlarged. Lung volume low causing mild prominence of central pulmonary vessels. No overt pulmonary edema. No focal consolidation and no pleural effusion and no pneumothorax. XR/XR chest 1V IMPRESSION: Cardiomegaly. Low lung volume. No acute abnormality of chest.
[2023-01-12 21:49] VITALS: BP 178/102; BP 214/75; PULSE 79; PULSE 80; RESP 15; TEMP 36.6; O2SAT 98; BMI 29.6
[2023-01-12 21:55] VITALS: BP 199/76; PULSE 82; RESP 15; O2SAT 98
--- NOTE | 2023-01-12 21:57 | ED.GENADULT ---
HPI - General Adult General Chief complaint: General Medical Stated complaint: LEG PAIN, FEELING UNWELL [id number] Time Seen by Provider: 01/12/23 21:57 Source: patient Mode of arrival: EMS Limitations: no limitations History of Present Illness HPI narrative: Patient has CKD hypertension diabetes, PVD, CHF comes here for increased leg swelling and shortness of breath for last 4- 5 days. No chest pain no fever no cough no wheezing patient noticed increased edema of his lower extremity urinating well Related Data Home Medications Medication Instructions Recorded Confirmed metformin 1,000 mg tablet 1,000 mg PO BID 04/27/21 10/09/22 sertraline 50 mg tablet 50 mg PO DAILY 04/27/21 10/09/22 sitagliptin phosphate 100 mg 100 mg PO DAILY 04/27/21 10/09/22 tablet (Januvia) cyclobenzaprine 5 mg tablet 5 mg PO BEDTIME 07/17/22 10/09/22 nabumetone 500 mg tablet 500 mg PO BID 07/17/22 10/09/22 hydralazine 50 mg tablet 100 mg PO TID 09/28/22 10/09/22 sodium zirconium cyclosilicate 5 5 g PO Q2D 09/28/22 10/09/22 gram oral powder packet (Lokelma) albuterol sulfate 90 mcg/actuation 2 puff inhalation Q4H PRN Wheezing 01/13/23 01/13/23 aerosol inhaler (Ventolin HFA) amlodipine 10 mg tablet 10 mg PO QPM 01/13/23 01/13/23 aspirin 81 mg chewable tablet 1 tab PO QAM 01/13/23 01/13/23 atorvastatin 80 mg tablet 80 mg PO BEDTIME 01/13/23 01/13/23 docusate sodium 100 mg capsule 100 mg PO BEDTIME 01/13/23 01/13/23 ezetimibe 10 mg tablet 10 mg PO QAM 01/13/23 01/13/23 flash glucose scanning reader 01/13/23 01/13/23 (SeedcampStyle Daniel 2 [place]) flash glucose sensor (FreeStyle 01/13/23 01/13/23 Daniel 2 Sensor kit) fluticasone propionate 50 2 spray intranasal QAM PRN 01/13/23 01/13/23 mcg/actuation nasal Congestion spray,suspension furosemide 40 mg tablet 40 mg PO 01/13/23 gabapentin 100 mg capsule 100 mg PO TID 01/13/23 01/13/23 gabapentin 300 mg capsule 300 mg PO QAM 01/13/23 01/13/23 glipizide 10 mg tablet 10 mg PO 01/13/23 hydralazine 50 mg tablet 100 mg PO TID 01/13/23 01/13/23 insulin degludec 100 unit/mL (3 25 unit subcut DAILY 01/13/23 01/13/23 mL) subcutaneous pen (Tresiba FlexTouch U-100 insulin) insulin degludec 100 unit/mL (3 25 unit subcut DAILY 01/13/23 01/13/23 mL) subcutaneous pen (Tresiba FlexTouch U-100 insulin) isosorbide mononitrate 60 mg 60 mg PO QAM 01/13/23 01/13/23 tablet,extended release 24 hr losartan 50 mg tablet 100 mg PO QAM 01/13/23 01/13/23 metoprolol succinate 100 mg 100 mg PO QAM 01/13/23 01/13/23 tablet,extended release 24 hr sitagliptin phosphate 100 mg 100 mg PO QAM 01/13/23 01/13/23 tablet (Januvia) tamsulosin 0.4 mg capsule 0.4 mg PO QPM 01/13/23 01/13/23 Previous Rx's Medication Instructions Recorded docusate sodium 100 mg capsule 100 mg PO BEDTIME #30 caps 02/13/22 isosorbide mononitrate 60 mg 60 mg PO DAILY #30 tabs 04/13/22 tablet,extended release 24 hr Allergies Allergy/AdvReac Type Severity Reaction Status Date / Time metformin AdvReac Unknown Verified 01/01/23 13:30 Review of Systems Review of Systems: Yes all other systems are reviewed and are negative [facility] Past Medical History Medical History (Reviewed 01/13/23 @ 01:21 EST by Eduardo Webster MD) Erectile dysfunction CKD (chronic kidney disease) stage 3, GFR 30-59 ml/min (HFpEF) heart failure with preserved ejection fraction Osteomyelitis CKD stage 3 due to type 2 diabetes mellitus LIVE (iron deficiency anemia) Hyperlipidemia associated with type 2 diabetes mellitus Type 2 diabetes mellitus Kidney disease High cholesterol HTN (hypertension) Diabetes PAD (peripheral artery disease) Surgical History (Reviewed 01/13/23 @ 01:21 EST by Eduardo Webster MD) Status post transmetatarsal amputation of left foot Hx of amputation History of amputation of right forefoot H/O shoulder surgery Family History Family History (Reviewed 01/13/23 @ 01:21 EST by Eduardo Webster MD) Other No family history of coronary artery disease Social History Social History (Reviewed 01/13/23 @ 01:21 EST by Eduardo Webster MD) Household Members: None Housing: Apartment Do you presently have visiting nurse or other home services: Yes Alcohol intake: current Alcohol intake frequency: a few times a month Alcohol type: beer Patient Tobacco Use Status: Former Tobacco user Quit Date: >20yr ago Tobacco use type: Cigarette Smoked in Last 30 Days: No Use of substances other than those prescribed or required for medical reasons: No Substance Use Type: Crack/Cocaine Advance Directives: Yes Advance Directives on File: Yes Advance Directives Date on File: 02/02/22 Nutrition Risks: Diabetes new onset/Uncontrolled service: No Current occupational status: retired Physical Exam ED Vital Signs: Vital Signs - 24 hr 01/12/23 21:49 01/12/23 21:55 01/12/23 22:36 Temperature 97.9 F Pulse Rate 79 82 74 Respiratory Rate 15 15 20 Blood Pressure 214/75 H 199/76 H 196/70 H Pulse Oximetry 98 98 98 Oxygen Delivery Method Room Air Room Air Room Air 01/12/23 23:34 01/12/23 23:54 01/13/23 00:14 Temperature Pulse Rate 81 78 76 Respiratory Rate 16 16 16 Blood Pressure 197/70 H 193/73 H 207/81 H Pulse Oximetry 96 96 96 Oxygen Delivery Method Room Air Room Air Room Air 01/13/23 00:17 01/13/23 01:02 EDT 01/13/23 01:12 EDT Temperature 98.2 F Pulse Rate 76 75 70 Respiratory Rate 16 18 Blood Pressure 196/68 H 198/72 H 198/72 H Pulse Oximetry 97 Oxygen Delivery Method Room Air BMI result Body Mass Index 29.6 Appearance: Alert. Oriented X3. No acute distress. Eyes: No pallor or icterus ENT: Pharynx normal. Oral Mucosa moist Neck: Normal inspection. Neck supple. CVS: Normal heart rate and rhythm. Pulses normal. Respiratory: No respiratory distress. Equal air entry bilateral, occasional rales at bases Abdomen: Soft and nontender. Bowel sounds are present, no mass palpable, no CVA tenderness Skin: Skin warm and dry. Normal skin color. Normal skin turgor. Extremities: 2+ R lower extremity edema. Right MTP amputation , left BKA amputation Neuro: Oriented X 3. No motor deficit. Medications Administered Generic Name Dose Route Start Last Admin Trade Name Freq PRN Reason Stop Dose Admin Heparin Sodium (Porcine) 5,000 unit 01/13/23 01:30 EST 01/13/23 01:07 EST Heparin Sodium,Porcine 5,000 Unit/Ml Vial SUBCUT 5,000 unit Q8H ANNABELLA Administration Discontinued Medications Generic Name Dose Route Start Last Admin Trade Name Freq PRN Reason Stop Dose Admin Furosemide 40 mg 01/12/23 22:27 01/12/23 23:24 Furosemide 40 Mg/4 Ml Vial IVPUSH 01/12/23 22:28 40 mg ONCE ONE Administration Protocol Hydralazine HCl 10 mg 01/13/23 01:36 EST 01/13/23 01:08 EST Hydralazine Hcl 20 Mg/Ml Vial IVPUSH 01/13/23 01:37 EST 10 mg ONCE ONE Administration Protocol Hydralazine HCl 20 mg 01/13/23 04:08 01/13/23 04:34 Hydralazine Hcl 20 Mg/Ml Vial IVPUSH 01/13/23 04:09 20 mg ONCE ONE Administration Protocol Nitroglycerin 1 inch 01/13/23 00:46 01/13/23 01:12 EDT Nitroglycerin 2 % Oint 1 Gm Packet TRANSDERMA 01/13/23 00:47 1 inch ONCE ONE Administration Medical Decision Making Medical Decision Making [facility] Narrative: Patient with fluid overload with worsening of CKD increased shortness of breath already on p.o. for flu semi at 40 mg twice a day will admit patient for IV diabetes treatment for KEYA on CKD Differential Diagnosis Differential Diagnoses: The differential diagnosis associated with the presentation includes KEYA/CKD/fluid overload/CHF Admission/Observation Consideration of admission/observation: Escalation of care including admission/observation considered Consult Healthcare Provider Management of the patient was discussed with: Hospitalist Lab Data MDM Lab Attestation statement: I reviewed the patient's lab results. 01/12/23 22:28 01/12/23 22:28 Labs: Lab Results 01/12/23 Range/Units 22:28 WBC 8.0 (4.8-10.8) X10*3/uL RBC 2.57 L (4.60-5.80) X10*6/uL Hgb 8.0 L (14.0-18.0) g/dl Hct 23.8 L (42.0-52.0) % MCV 92.6 (80.0-98.0) fL MCH 31.1 (27.0-33.0) pg MCHC 33.6 (31.0-36.0) g/dl RDW 13.2 (11.0-16.0) % Plt Count 223 (160-400) X10*3/uL MPV 9.6 (9.4-12.4) fL Absolute Nucleated RBC 0.000 (0.0-0.012) X10*3/uL Nucleated RBC % (auto) 0.0 (0.0-0.2) /100WBC Sodium 143 (135-145) mmol/L Potassium 4.0 (3.3-5.1) mmol/L Chloride 114 H (96-108) mmol/L Carbon Dioxide 21 L (22-29) mmol/L Anion Gap 12 (12-20) BUN 55 H (9-16) mg/dL Creatinine 4.16 H* (0.5-1.4) mg/dL Estim Creat Clear Calc 19.2 Estimated GFR 14 Random Glucose 271 H (60-115) mg/dL Calcium 8.3 L D (8.4-10.2) mg/dL Total Bilirubin 0.1 (0.0-1.0) mg/dL AST 24 (5-37) U/L ALT 18 (0-40) U/L Alkaline Phosphatase 91 (39-117) U/L Troponin I High Sens 36.6 H D (<3.5-35.0) ng/L B-Natriuretic Peptide Cancelled Total Protein 6.3 L (6.5-8.0) g/dL Albumin 2.4 L (3.5-5.0) g/dL Independent Interpretation I performed an independent interpretation of an: EKG and Plain X-Ray Interpretation: Sinus rhythm heart rate 73 beats per minute first-degree AV block nonspecific ST-T changes no acute ischemia Radiology Impression Discussion of test interpretation with radiology: I have reviewed the radiologist's reading. External Record Review External record reviewed: Inpatient record Discharge Plan Discharge Clinical Impression: Acute kidney injury superimposed on chronic kidney disease CHF exacerbation Qualifiers: Heart failure type: diastolic Qualified Code(s): I50.33 - Acute on chronic diastolic (congestive) heart failure Patient Disposition: Admitted As Inpatient
--- NOTE | 2023-01-12 22:02 | ECG_ITS ---
Test Reason : WEAKNESS Blood Pressure : / mmHG Vent. Rate : 073 BPM Atrial Rate : 073 BPM P-R Int : 250 ms QRS Dur : 092 ms QT Int : 406 ms P-R-T Axes : 027 017 038 degrees QTc Int : 447 ms Sinus rhythm with 1st degree A-V block Nonspecific T wave abnormality Abnormal ECG When compared with ECG of 08-OCT-2022 13:18, Vent. rate has increased BY 24 BPM Nonspecific T wave abnormality now evident in Inferior leads QT has lengthened Referred By: Carlos Hollins Electronically Signed By:SWEETIE CASTRO MD
--- NOTE | 2023-01-12 22:12 | MHC.EDTECH ---
Patient came by ambulance and placed into hospital attire,playground monitor placed and EKG done per order. Call dash within reach.
[2023-01-12 22:36] VITALS: BP 196/70; PULSE 74; RESP 20; O2SAT 98
--- NOTE | 2023-01-12 22:37 | MHC.EDTECH ---
Assisted while he placed an IV,labs were obtained and sent to lab. Vitals were taken and are elevated 196/70,MD was at bedside and RN is aware
[2023-01-12 22:38] LABS: Hematocrit 23.8 % (42.0-52.0); Mean Corpuscular HGB Conc 33.6 g/dl (31.0-36.0); Mean Corpuscular Hemoglobin 31.1 pg (27.0-33.0); Mean Corpuscular Volume 92.6 fL (80.0-98.0); Mean Platelet Volume 9.6 fL (9.4-12.4); Platelet Count 223 X10*3/uL (160-400); Red Blood Count 2.57 X10*6/uL (4.60-5.80); Red Cell Distribution Width 13.2 % (11.0-16.0)
[2023-01-12 22:57] LABS: Alanine Aminotransferase 18 U/L (0-40); Albumin Level 2.4 g/dL (3.5-5.0); Alkaline Phosphatase 91 U/L (39-117); Anion Gap 12 (12-20); Aspartate Amino Transferase 24 U/L (5-37); Bilirubin Total 0.1 mg/dL (0.0-1.0); Blood Urea Nitrogen 55 mg/dL (9-16); Calcium 8.3 mg/dL (8.4-10.2); Carbon Dioxide 21 mmol/L (22-29); Chloride 114 mmol/L (96-108); Creatinine Clr Calc Pharmacy 19.2; Estimated Glomerular Filt Rate 14; Glucose Random 271 mg/dL (60-115); Sodium 143 mmol/L (135-145); Total Protein 6.3 g/dL (6.5-8.0)
[2023-01-12 23:02] LABS: Troponin-I High Sensitivity 36.6 ng/L (<3.5-35.0)
[2023-01-12] MEDS: Furosemide 40 MG/4 ML VIAL IVPUSH (23:24)
[2023-01-12 23:34] VITALS: BP 197/70; PULSE 81; RESP 16; O2SAT 96
[2023-01-12 23:54] VITALS: BP 193/73; PULSE 78; RESP 16; O2SAT 96
[2023-01-13] VITALS (16 sets, daily range): BP systolic 171–212; BP diastolic 54–96; PULSE 66–83; RESP 16–20; TEMP 36.1–36.9; O2SAT 96–98
--- NOTE | 2023-01-13 00:23 | MHC.EDTECH ---
Hourly rounds and vitals completed, patient's BP is elevated at 207/81,Repeated it and is 196/68. RN made aware. Patient urinated 500ML in urinal. Call dash within reach.
[2023-01-13] MEDS: Heparin Sodium,Porcine 5,000 UNIT/ML VIAL 5000 UNIT SUBCUT ×3 (01:07→16:50)
--- NOTE | 2023-01-13 01:07 | P.HPHOSP_ITS ---
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 He describes worsening shortness of breath over the last 3 days with associated right lower extremity swelling and pain and also elevated blood pressure and blood sugars despite being compliant with his medications. He denies any associated chest pain, orthopnea, PND, cough, fevers or chills. Initial work up done in the ED was significant for worsening renal function with BUN and Creatinine at 55 & 4.16 respectively. His Blood sugar was mildly elevated at 271 and blood pressure was also elevated at 214/75 mmHg. His hemoglobin has dropped to 8 d/dl from 10 g/dl in September 2022. He received a dose of IV Lasix in the ED following which admission was requested for further care. Review of Systems 2 Review of Systems: 12 system review was completed and is as noted above in the HPI otherwise the rest of the system review was negative. Yes all other systems are reviewed and are negative [facility] Medical History (Reviewed 01/13/23 @ 01:21 EST by Eduardo Webster MD) Erectile dysfunction CKD (chronic kidney disease) stage 3, GFR 30-59 ml/min (HFpEF) heart failure with preserved ejection fraction Osteomyelitis CKD stage 3 due to type 2 diabetes mellitus LIVE (iron deficiency anemia) Hyperlipidemia associated with type 2 diabetes mellitus Type 2 diabetes mellitus Kidney disease High cholesterol HTN (hypertension) Diabetes PAD (peripheral artery disease) Family History (Reviewed 01/13/23 @ 01:21 EST by Eduardo Webster MD) Other No family history of coronary artery disease Surgical History (Reviewed 01/13/23 @ 01:21 EST by Eduardo Webster MD) Status post transmetatarsal amputation of left foot Hx of amputation History of amputation of right forefoot H/O shoulder surgery Social History (Reviewed 01/13/23 @ 01:21 EST by Eduardo Webster MD) Household Members: None Housing: Apartment Do you presently have visiting nurse or other home services: Yes Alcohol intake: current Alcohol intake frequency: a few times a month Alcohol type: beer Patient Tobacco Use Status: Former Tobacco user Quit Date: >20yr ago Tobacco use type: Cigarette Smoked in Last 30 Days: No Use of substances other than those prescribed or required for medical reasons: No Substance Use Type: Crack/Cocaine Advance Directives: Yes Advance Directives on File: Yes Advance Directives Date on File: 02/02/22 service: No Current occupational status: retired Meds Allergies Allergy/AdvReac Type Severity Reaction Status Date / Time metformin AdvReac Unknown Verified 01/01/23 13:30 Home Medications Medication Instructions Recorded Confirmed Last Taken Type atorvastatin 80 mg tablet 80 mg PO BEDTIME 04/27/21 10/09/22 09/27/22 History fluticasone propionate 50 2 spray intranasal DAILY PRN Nasal 04/27/21 10/09/22 09/28/22 History mcg/actuation nasal Congestion spray,suspension metformin 1,000 mg tablet 1,000 mg PO BID 04/27/21 10/09/22 09/28/22 History sertraline 50 mg tablet 50 mg PO DAILY 04/27/21 10/09/22 09/28/22 History sitagliptin phosphate 100 mg 100 mg PO DAILY 04/27/21 10/09/22 09/28/22 History tablet (Januvia) insulin degludec 100 unit/mL (3 25 unit subcut BEDTIME 01/03/22 10/09/22 09/27/22 History mL) subcutaneous pen (Tresiba FlexTouch U-100 insulin) gabapentin 100 mg capsule 100 mg PO TID 04/12/22 10/09/22 09/28/22 History cyclobenzaprine 5 mg tablet 5 mg PO BEDTIME 07/17/22 10/09/22 09/27/22 History nabumetone 500 mg tablet 500 mg PO BID 07/17/22 10/09/22 09/28/22 History hydralazine 50 mg tablet 100 mg PO TID 09/28/22 10/09/22 09/28/22 History losartan 50 mg tablet 100 mg PO DAILY 09/28/22 10/09/22 09/28/22 History sodium zirconium cyclosilicate 5 5 g PO Q2D 09/28/22 10/09/2209/26/23 History gram oral powder packet (Lokelma) Physical Exam 2 Vital Signs and Narrative: Vital Signs: Last Vital Signs Temp 98.2 F 01/13/23 01:50 ED T Pulse 73 01/13/23 01:50 ED T Resp 16 01/13/23 01:50 ED T BP 206/71 H 01/13/23 01:50 ED T Pulse Ox 96 01/13/23 01:50 ED T O2 Del Method Room Air 01/13/23 01:50 ED T BMI result Body Mass Index 29.6 General: Well nourished. Awake, alert and oriented x 4. No apparent distress Eyes: No pallor or jaundice. PERRLA, EOMI HENT: Moist oral mucus membranes. No oropharyngeal lesions. Neck: Supple. No cervical adenopathy. No JVD Cardiovascular: Regular rate and rhythm. Normal heart sounds. No murmurs, rubs or gallops. No JVD. No peripheral edema. Respiratory: Normal respiratory effort with no accessory muscle use. Clear to auscultation bilaterally Gastrointestinal: Abdomen is soft, non-tender, non-distended. Normoactive bowel sounds. No hepatosplenomegaly Extremities: S/P Left BKA. S/p Right TMA. 2+ pitting edema of RLE. Skin - Warm/Dry. No rashes. No mottling. Capillary refill is < 2 seconds Neurological - AAOx4. Intact speech & cognition. CN II - XII grossly intact but not individually tested. No motor or sensory deficits Hematologic: No bleeding. No ecchymosis. No swollen or tender lymph nodes. Psychiatric: Cooperative. Appropriate mood and affect . Results Labs 01/12/23 22:28 01/12/23 22:28 Labs: ECG Attestation: I personally reviewed and interpreted this ECG as follows: (NSR at 73 BPM with 1st degree A-V Block. Nonspecific Twave abnormality in the inferior leads. Bordeline QTc at 447 ms. No acute ischemic changes) ECG interpretation date: 01/12/23 Imaging Radiologist's Impressions: Impressions Chest X-Ray 01/12/23 22:49 IMPRESSION: Cardiomegaly. Low lung volume. No acute abnormality of chest. Assessment and Plan (1) CHF exacerbation: Qualifiers: Heart failure type: diastolic Qualified Code(s): I50.33 - Acute on chronic diastolic (congestive) heart failure Status: Acute (2) Uncontrolled hypertension: Status: Acute (3) Acute kidney injury superimposed on chronic kidney disease: Status: Acute (4) Anemia: Qualifiers: Anemia type: due to chronic kidney disease Status: Acute Plan 1. Acute on chronic diastolic heart failure - admit for IV diuresis - approaching need for hemodialysis though not uremic - admit and continue with IV diuretics (will use Bumex) - consult Nephrology for assistance with his care 2. Uncontrolled Hypertension - BP control is sub-optimal with SBP > 200 mmHg - patient reports compliance with medications so unclear why his BP remains high though could be due to volume overload - will continue with his outpatient medications and closely monitor response 3. Acute on chronic renal failure - baseline stage 3b with eGFR of between 30 - 40 - now with eGFR of 14 (stage 5) - consult Nephrology for further care 4. Anemia - likely with AOCD with hemoglobin down to 8 g/dl from 10 g/dl - not candidate for EPO or PRBC transfusion at this time - closely monitor DVT: SC heparin CODE STATUS: Full code Admission for at least 2 midnights for management of CHF exacerbation, renal failure and uncontrolled hypertension This note is constructed using voice recognition software. While every effort has been made to ensure accuracy, can cutter errors may have been included. Quality Stroke Does the patient have a stroke diagnosis?: No VTE Prior VTE?: No VTE Risk Level:: Medical - moderate - high VTE Device Contraindication: Treatment Not Indicated VTE Drug Contraindication: N/A - Med Ordered
[2023-01-13] MEDS: hydrALAZINE HCl 20 MG/ML VIAL 10 MG IVPUSH (01:08)
[2023-01-13] MEDS: Nitroglycerin 2 % Oint 1 GM Packet 1 INCH TRANSDERMA (01:12)
--- NOTE | 2023-01-13 01:16 | PC.NURSE ---
Pt given meds per MAR for elevated BP. Dr.Oyula andrade.
--- NOTE | 2023-01-13 01:20 | MHC.EDTECH ---
Patient voided 250ML in urinal. Belonging list completed and copy placed in chart.
--- NOTE | 2023-01-13 01:52 | MHC.EDTECH ---
Hourly rounds and vitals completed,pts BP is 206/71 RN Bethany made aware
--- NOTE | 2023-01-13 01:53 | PC.NURSE ---
Ambulate activity removed due to pt being wheelchair bound
--- NOTE | 2023-01-13 01:57 | MHC.EDTECH ---
Patient voided 275ML in urinal.
--- NOTE | 2023-01-13 03:57 | MHC.EDTECH ---
Hourly rounds and vitals completed,BP is 199/85 RN aware,patient is sleeping and call dash within reach.
--- NOTE | 2023-01-13 04:08 | MHC.EDTECH ---
Patient voided 600ML in urinal,patient repositioned to comfort
[2023-01-13] MEDS: hydrALAZINE HCl 20 MG/ML VIAL IVPUSH (04:34)
--- NOTE | 2023-01-13 05:29 | PC.NURSE ---
Pt BP elevated, see vital signs, notified. Hydrolazine given per MAY. Repeat BP done manually 182/70 . notfied and no new orders at this time. continue to monitor.
--- NOTE | 2023-01-13 06:20 | MHC.EDTECH ---
Hourly rounds and vitals completed,400ML emptied from urinal.
[2023-01-13 07:09] LABS: Glucose, Whole Blood 149 mg/dL (60-115)
--- NOTE | 2023-01-13 07:25 | PHA.MEDREC ---
Pharmacy Consult ? Medication Reconciliation Pharmacy has reviewed the medication reconciliation completed by Bethany. Removed duplicate medications. Mandi Kilgore, AngelesD
[2023-01-13 07:33] LABS: Hematocrit 25.7 % (42.0-52.0); Hemoglobin 8.6 g/dl (14.0-18.0); Mean Corpuscular HGB Conc 33.5 g/dl (31.0-36.0); Mean Corpuscular Volume 92.8 fL (80.0-98.0); Mean Platelet Volume 10.1 fL (9.4-12.4); Platelet Count 261 X10*3/uL (160-400); Red Blood Count 2.77 X10*6/uL (4.60-5.80); Red Cell Distribution Width 13.2 % (11.0-16.0); White Blood Count 8.2 X10*3/uL (4.8-10.8)
[2023-01-13] MEDS: 0.9 % Sodium Chloride Flush 3 ML SYRINGE IVFLUSH ×3 (07:41→21:28)
--- NOTE | 2023-01-13 07:47 | PC.NURSE ---
tigered the nurse for report awaiting a call back
--- NOTE | 2023-01-13 07:48 | PC.NURSE ---
pt ia alert and oriented, skin appropriate for ethnicity, respirations even and unlabored, pt reports left inner thigh pain at 8/10 states feeling like its burning, pt does have left below the knee amputation and right foot toes amputations. pt is ns on the monitor. pt did have his breakfast and ate most of his breakfast
[2023-01-13 07:50] LABS: Anion Gap 12 (12-20); Blood Urea Nitrogen 51 mg/dL (9-16); Calcium 8.6 mg/dL (8.4-10.2); Carbon Dioxide 21 mmol/L (22-29); Chloride 115 mmol/L (96-108); Creatinine Clr Calc Pharmacy 21.2; Estimated Glomerular Filt Rate 16; Glucose Random 158 mg/dL (60-115); Potassium 3.6 mmol/L (3.3-5.1); Sodium 144 mmol/L (135-145)
--- NOTE | 2023-01-13 08:03 | PC.NURSE ---
called the floor for report but no answer
--- NOTE | 2023-01-13 08:32 | PC.NURSE ---
report given to imc rn
[2023-01-13] MEDS: Docusate Sodium 100 MG CAPSULE PO ×2 (09:16→21:27)
[2023-01-13] MEDS: Ezetimibe 10 MG TABLET PO (11:07)
[2023-01-13] MEDS: Isosorbide Mononitrate 60 MG TAB.ER.24H PO (11:07)
[2023-01-13] MEDS: Furosemide 40 MG TABLET PO ×2 (11:07→21:27)
[2023-01-13] MEDS: Sertraline HCL 50 MG TABLET PO (11:08)
[2023-01-13] MEDS: glipiZIDE 10 MG TABLET PO (11:08)
[2023-01-13] MEDS: Aspirin 81 MG TAB.CHEW PO (11:08)
[2023-01-13] MEDS: SITagliptin Phosphate 100 MG TABLET PO (11:08)
[2023-01-13] MEDS: hydrALAZINE HCl 50 MG TABLET 100 MG PO ×3 (11:08→21:27)
[2023-01-13] MEDS: Metoprolol Succinate ER 100 MG TAB.ER.24H PO (11:08)
[2023-01-13] MEDS: Losartan Potassium 50 MG TABLET 100 MG PO (11:08)
[2023-01-13] MEDS: Gabapentin 300 MG CAPSULE PO (11:09)
[2023-01-13 11:22] LABS: Glucose, Whole Blood 167 mg/dL (60-115)
--- NOTE | 2023-01-13 11:57 | HO.PM.IMPN ---
Subjective Subjective Date of Service: 01/13/23 Interval History: No acute issue since admission. Patient does admit noncompliance with medicines Review of Systems Denies chest pain Denies shortness of breath Denies nausea vomiting diarrhea Physical Exam Vital Signs: Vital Signs: Last Vital Signs Temp 97.8 F 01/13/23 11:15 Pulse 75 01/13/23 11:15 Resp 18 01/13/23 11:15 BP 212/96 H 01/13/23 11:15 Pulse Ox 98 01/13/23 11:15 O2 Del Method Room Air 01/13/23 11:15 BMI result Body Mass Index 29.6 Const: Other: Awake alert no acute distress Resp: Other: Clear to auscultation bilaterally no rales rhonchi or wheezes Cardio: Other: No S4; positive S1-S2; no S3 murmurs rubs or gallops GI: Other: Soft nontender nondistended normoactive bowel sounds Neuro: Other: Cranial nerves 2-12 grossly intact as tested. Motor is 5/5 all extremities. Sensation is intact Extrem: Other: No edema bilaterally Objective Data Active Medications Acetaminophen (Acetaminophen 325 Mg Tablet) 650 mg PO Q6H PRN PRN Reason: Pain, Mild (Pain Scale 1-3) Al Hydroxide/Mg Hydroxide (Magnesium Hydrox/Alum Hydrox 30 Ml Oral.Susp) 30 ml PO Q4H PRN PRN Reason: Heartburn/Nausea Albuterol Sulfate (Albuterol Sulfate 90 Mcg 8 Gm Inhaler) 2 puff INHALE Q4H PRN PRN Reason: Wheezing Amlodipine Besylate (Amlodipine Besylate 10 Mg Tablet) 10 mg PO BEDTIME [facility]; Protocol Aspirin (Aspirin 81 Mg Tab.Chew) 81 mg PO DAILY [facility] Last Admin: 01/13/23 11:08 Dose: 81 mg Documented By: MIRACLE Atorvastatin Calcium (Atorvastatin Calcium 80 Mg Tablet) 80 mg PO BEDTIME [facility] Dextrose (Dextrose 50 % 25 Gm/50 Ml Syringe) 25 gm IVPUSH Q15M PRN; Protocol PRN Reason: per Hypoglycemia Standing Ord. Docusate Sodium (Docusate Sodium 100 Mg Capsule) 100 mg PO BID [facility] Last Admin: 01/13/23 09:16 Dose: 100 mg Documented By: MIRACLE Ezetimibe (Ezetimibe 10 Mg Tablet) 10 mg PO DAILY [facility] Last Admin: 01/13/23 11:07 Dose: 10 mg Documented By: MIRACLE Furosemide (Furosemide 40 Mg Tablet) 40 mg PO BID [facility]; Protocol Last Admin: 01/13/23 11:07 Dose: 40 mg Documented By: MIRACLE Gabapentin (Gabapentin 300 Mg Capsule) 300 mg PO DAILY [facility] Last Admin: 01/13/23 11:09 Dose: 300 mg Documented By: MIRACLE Glipizide (Glipizide 10 Mg Tablet) 10 mg PO BID [facility] Last Admin: 01/13/23 11:08 Dose: 10 mg Documented By: MIRACLE Glucose (Glucose Gel 15 Gm Gel..Gram.) 15 gm PO Q15M PRN; Protocol PRN Reason: per Hypoglycemia Standing Ord. Heparin Sodium (Porcine) (Heparin Sodium,Porcine 5,000 Unit/Ml Vial) 5,000 unit SUBCUT Q8H [facility] Last Admin: 01/13/23 09:16 Dose: 5,000 unit Documented By: MIRACLE Hydralazine HCl (Hydralazine Hcl 50 Mg Tablet) 100 mg PO TID [facility]; Protocol Last Admin: 01/13/23 11:08 Dose: 100 mg Documented By: MIRACLE Insulin Glargine (Insulin Glargine,Hum.Rec.Anlog 100 Unit/Ml 10 Ml Vial) 25 unit SUBCUT BEDTIME [facility] Insulin Human Lispro (Insulin Lispro 100 Unit/Ml 3 Ml Vial) 0 unit SUBCUT QIDACHS [facility]; Protocol Last Admin: 01/13/23 07:10 Dose: Not Given Documented By: KALIN Non-Admin Reason: poc 149 Isosorbide Mononitrate (Isosorbide Mononitrate 60 Mg Tab.Er.24h) 60 mg PO DAILY [facility]; Protocol Last Admin: 01/13/23 11:07 Dose: 60 mg Documented By: MIRACLE Losartan Potassium (Losartan Potassium 50 Mg Tablet) 100 mg PO DAILY [facility]; Protocol Last Admin: 01/13/23 11:08 Dose: 100 mg Documented By: MIRACLE Melatonin (Melatonin 3 Mg Tablet) 6 mg PO BEDTIME PRN PRN Reason: Insomnia Metoprolol Succinate (Metoprolol Succinate Er 100 Mg Tab.Er.24h) 100 mg PO DAILY [facility]; Protocol Last Admin: 01/13/23 11:08 Dose: 100 mg Documented By: HO.MOHAMER Non-Formulary Medication (Nabumetone) 500 mg PO BID [facility] Ondansetron HCl (Ondansetron Hcl 4 Mg/2 Ml Vial) 4 mg IVPUSH Q8H PRN PRN Reason: Nausea and Vomiting Oxycodone HCl (Oxycodone Hcl Immed Release 5 Mg Tablet) 5 mg PO Q6H PRN PRN Reason: Pain, Severe (Pain Scale 7-10) Senna (Sennosides 8.6 Mg Tablet) 17.2 mg PO BEDTIME PRN PRN Reason: Constipation Sertraline HCl (Sertraline Hcl 50 Mg Tablet) 50 mg PO DAILY [facility] Last Admin: 01/13/23 11:08 Dose: 50 mg Documented By: MIRACLE Sitagliptin Phosphate (Sitagliptin Phosphate 100 Mg Tablet) 100 mg PO DAILY [facility] Last Admin: 01/13/23 11:08 Dose: 100 mg Documented By: MIRACLE Sodium Chloride (0.9 % Sodium Chloride Flush 3 Ml Syringe) 3 ml IVFLUSH QSHIFT [facility] Last Admin: 01/13/23 07:41 Dose: 3 ml Documented By: KALIN Tamsulosin HCl (Tamsulosin Hcl 0.4 Mg Capsule) 0.4 mg PO BEDTIME [facility] Labs 01/13/23 07:26 01/13/23 07:26 Labs: Laboratory Results - last 24 hr 01/12/23 01/13/23 01/13/23 22:28 07:06 07:26 MCV 92.6 92.8 MCH 31.1 31.0 MCHC 33.6 33.5 RDW 13.2 13.2 Plt Count 223 261 MPV 9.6 10.1 Absolute Nucleated RBC 0.000 0.000 Nucleated RBC % (auto) 0.0 0.0 Anion Gap 12 12 Estim Creat Clear Calc 19.2 21.2 Estimated GFR 14 16 POC Glucose 149 H Random Glucose 271 H 158 H Calcium 8.3 L D 8.6 Total Bilirubin 0.1 AST 24 ALT 18 Alkaline Phosphatase 91 B-Natriuretic Peptide Cancelled Total Protein 6.3 L Albumin 2.4 L 01/13/23 11:18 MCV MCH MCHC RDW Plt Count MPV Absolute Nucleated RBC Nucleated RBC % (auto) Anion Gap Estim Creat Clear Calc Estimated GFR POC Glucose 167 H Random Glucose Calcium Total Bilirubin AST ALT Alkaline Phosphatase B-Natriuretic Peptide Total Protein Albumin Assessment and Plan (1) Acute on chronic diastolic heart failure: Status: Acute (2) Acute kidney injury superimposed on chronic kidney disease: Status: Acute Plan 67 year old pleasant Somali speaking male with past medical history of Type 2 diabetes mellitus (on Insulin), 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 He describes worsening shortness of breath over the last 3 days with associated right lower extremity swelling and pain and also elevated blood pressure and blood sugars despite being compliant with his medications. Admitted with IV diuresis with some improvement in symptoms 1. Acute on chronic diastolic heart failure - continue IV diuresis... Proximally 1 L negative since admit - consult Nephrology for assistance with his care 2. Uncontrolled Hypertension - continue outpatient therapies -adjust as indicated 3. Acute on chronic renal failure - improved slightly overnight -follow renals/divalents -renal consult 4. Anemia - likely with AOCD with hemoglobin down to 8 g/dl from 10 g/dl - follow clinically SC heparin Full code Patient will require ongoing hospitalization for IV diuresis and aggressive treatment of hypertension Quality Stroke Does the patient have a stroke diagnosis?: No VTE Prior VTE?: No VTE Risk Level:: Medical - moderate - high VTE Device Contraindication: Treatment Not Indicated VTE Drug Contraindication: N/A - Med Ordered
[2023-01-13] MEDS: Insulin Lispro 100 UNIT/ML 3 ML VIAL SUBCUT (12:19)
--- NOTE | 2023-01-13 14:02 | P.PNNP_ITS ---
Subjective Subjective Date of Service: 01/13/23 Interval history: Consult received ?Nephrosarca DIuresing Cr 4's -?> 3's Cr BL near 2.0-2.2 full consult to follow for now check U/A and Urine lytes Bladder scans Physical Exam 2 Vital Signs: Vital Signs: Last Vital Signs Temp 97.8 F 01/13/23 11:15 Pulse 75 01/13/23 11:15 Resp 18 01/13/23 11:15 BP 211/96 H 01/13/23 12:07 Pulse Ox 98 01/13/23 11:15 O2 Del Method Room Air 01/13/23 11:15 BMI result Body Mass Index 29.6 Objective Data Labs 01/13/23 07:26 01/13/23 07:26 Labs: Laboratory Results - last 24 hr 01/12/23 01/13/23 01/13/23 22:28 07:06 07:26 WBC 8.0 8.2 RBC 2.57 L 2.77 L Hgb 8.0 L 8.6 L Hct 23.8 L 25.7 L MCV 92.6 92.8 MCH 31.1 31.0 MCHC 33.6 33.5 RDW 13.2 13.2 Plt Count 223 261 MPV 9.6 10.1 Absolute Nucleated RBC 0.000 0.000 Nucleated RBC % (auto) 0.0 0.0 Sodium 143 144 Potassium 4.0 3.6 Chloride 114 H 115 H Carbon Dioxide 21 L 21 L Anion Gap 12 12 BUN 55 H 51 H Creatinine 4.16 H* 3.75 H Estim Creat Clear Calc 19.2 21.2 Estimated GFR 14 16 POC Glucose 149 H Random Glucose 271 H 158 H Calcium 8.3 L D 8.6 Total Bilirubin 0.1 AST 24 ALT 18 Alkaline Phosphatase 91 Troponin I High Sens 36.6 H D B-Natriuretic Peptide Cancelled Total Protein 6.3 L Albumin 2.4 L 01/13/23 11:18 WBC RBC Hgb Hct MCV MCH MCHC RDW Plt Count MPV Absolute Nucleated RBC Nucleated RBC % (auto) Sodium Potassium Chloride Carbon Dioxide Anion Gap BUN Creatinine Estim Creat Clear Calc Estimated GFR POC Glucose 167 H Random Glucose Calcium Total Bilirubin AST ALT Alkaline Phosphatase Troponin I High Sens B-Natriuretic Peptide Total Protein Albumin Procedures Date of Service Date of Service: 01/13/23 Assessment & Plan Time Spent With Patient Time: Total time managing care of this patient today ____ minutes. Progress Note: Quality Stroke Does the patient have a stroke diagnosis?: No
[2023-01-13 16:02] LABS: Glucose, Whole Blood 87 mg/dL (60-115)
[2023-01-13 20:19] LABS: Glucose, Whole Blood 142 mg/dL (60-115)
[2023-01-13] MEDS: Atorvastatin Calcium 80 MG TABLET PO (21:27)
[2023-01-13] MEDS: amLODIPine Besylate 10 MG TABLET PO (21:27)
[2023-01-13] MEDS: Tamsulosin HCL 0.4 MG CAPSULE PO (21:27)
[2023-01-13] MEDS: Melatonin 3 MG TABLET 6 MG PO (21:27)
[2023-01-13] MEDS: Insulin Glargine,Hum.rec.anlog 100 UNIT/ML 10 ML VIAL 10 UNIT SUBCUT (21:28)
[2023-01-14] VITALS: BP 164/66; PULSE 69; RESP 20; TEMP 36.3; O2SAT 96
[2023-01-14] MEDS: Heparin Sodium,Porcine 5,000 UNIT/ML VIAL 5000 UNIT SUBCUT ×3 (01:22→16:17)
[2023-01-14 06:51] LABS: MANUAL DIFF FLAG NO
[2023-01-14 07:15] LABS: Basophils Absolute Auto 0.1 X10*3/uL (0.0-0.2); Basophils Percent Auto 0.8 % (0-2); Eosinophils Absolute Auto 0.3 X10*3/uL (0.0-0.4); Eosinophils Percent Auto 4.3 % (0-4); Hematocrit 24.7 % (42.0-52.0); Hemoglobin 8.2 g/dl (14.0-18.0); Imm Gran Abs Auto 0.03 X10*3/uL (0.00-0.03); Imm Gran Pct Auto 0.4 % (0.0-0.4); Lymphocytes Absolute Auto 1.2 X10*3/uL (1.2-4.9); Lymphocytes Percent Auto 14.9 % (20-40); Mean Corpuscular HGB Conc 33.2 g/dl (31.0-36.0); Mean Corpuscular Hemoglobin 31.5 pg (27.0-33.0); Mean Platelet Volume 10.3 fL (9.4-12.4); Monocytes Absolute Auto 0.9 X10*3/uL (0.1-1.2); Monocytes Percent Auto 11.4 % (2-11); Neutrophils Absolute Auto 5.4 x10*3/uL (2.0-8.3); Neutrophils Percent Auto 68.2 % (45-73); Platelet Count 247 X10*3/uL (160-400); Red Cell Distribution Width 13.2 % (11.0-16.0)
[2023-01-14 07:17] LABS: Alanine Aminotransferase 17 U/L (0-40); Albumin Level 2.3 g/dL (3.5-5.0); Alkaline Phosphatase 77 U/L (39-117); Anion Gap 11 (12-20); Aspartate Amino Transferase 26 U/L (5-37); Bilirubin Total 0.2 mg/dL (0.0-1.0); Blood Urea Nitrogen 47 mg/dL (9-16); Calcium 8.6 mg/dL (8.4-10.2); Carbon Dioxide 22 mmol/L (22-29); Chloride 114 mmol/L (96-108); Creatinine Clr Calc Pharmacy 21.7; Estimated Glomerular Filt Rate 17; Glucose Fasting 92 mg/dL (60-99); Sodium 143 mmol/L (135-145); Total Protein 6.1 g/dL (6.5-8.0)
[2023-01-14 07:25] VITALS: BP 194/77; PULSE 69; RESP 20; TEMP 36.3; O2SAT 97
[2023-01-14 07:38] LABS: Glucose, Whole Blood 102 mg/dL (60-115)
[2023-01-14] MEDS: Aspirin 81 MG TAB.CHEW PO (09:09)
[2023-01-14] MEDS: Gabapentin 300 MG CAPSULE PO (09:10)
[2023-01-14] MEDS: Isosorbide Mononitrate 60 MG TAB.ER.24H PO (09:10)
[2023-01-14] MEDS: Losartan Potassium 50 MG TABLET 100 MG PO (09:10)
[2023-01-14] MEDS: glipiZIDE 10 MG TABLET PO ×2 (09:10→21:49)
[2023-01-14] MEDS: hydrALAZINE HCl 50 MG TABLET 100 MG PO ×3 (09:10→21:49)
[2023-01-14] MEDS: SITagliptin Phosphate 100 MG TABLET PO (09:10)
[2023-01-14] MEDS: Docusate Sodium 100 MG CAPSULE PO ×2 (09:10→21:49)
[2023-01-14] MEDS: Ezetimibe 10 MG TABLET PO (09:10)
[2023-01-14] MEDS: Sertraline HCL 50 MG TABLET PO (09:11)
[2023-01-14] MEDS: 0.9 % Sodium Chloride Flush 3 ML SYRINGE IVFLUSH ×3 (09:11→21:49)
[2023-01-14] MEDS: Furosemide 40 MG TABLET PO ×2 (09:11→21:48)
[2023-01-14] MEDS: Metoprolol Succinate ER 100 MG TAB.ER.24H PO (09:11)
--- NOTE | 2023-01-14 09:16 | MHC.CM.PN ---
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 He uses a W/C. and can walk a little with prosthesis, and a walker. He sees his PCP, Marline Richard at [facility]. He has used VNA services in the past, but does not remember the agency. He said that he has not been in STR before. CM will provide a list of VNA or STR if that is recommended DC plan, and assist with DC. Pt will require chair van for transport home.
--- NOTE | 2023-01-14 09:52 | P.PNIM_ITS ---
Subjective Subjective Date of Service: 01/14/23 Review of Systems Follow-up congestive heart failure and hypertensive urgency No complaints of shortness of breath or chest pain Sitting up in a chair Physical Exam 2 Vital Signs: Vital Signs: Last Vital Signs Temp 97.3 F 01/14/23 07:25 Pulse 69 01/14/23 07:25 Resp 20 01/14/23 07:25 BP 194/77 H 01/14/23 07:25 Pulse Ox 97 01/14/23 07:25 O2 Del Method Room Air 01/14/23 07:25 BMI result Body Mass Index 29.6 Appearing in no acute distress Faint crackles throughout heart regular rate rhythm, clear S1, S2 positive bowel sounds, abdomen is soft, nontender neuro patient is alert x3, no focal deficits Objective Data Active Medications Acetaminophen (Acetaminophen 325 Mg Tablet) 650 mg PO Q6H PRN PRN Reason: Pain, Mild (Pain Scale 1-3) Al Hydroxide/Mg Hydroxide (Magnesium Hydrox/Alum Hydrox 30 Ml Oral.Susp) 30 ml PO Q4H PRN PRN Reason: Heartburn/Nausea Albuterol Sulfate (Albuterol Sulfate 90 Mcg 8 Gm Inhaler) 2 puff INHALE Q4H PRN PRN Reason: Wheezing Amlodipine Besylate (Amlodipine Besylate 10 Mg Tablet) 10 mg PO BEDTIME [facility]; Protocol Last Admin: 01/13/23 21:27 Dose: 10 mg Documented By: ELLIE Aspirin (Aspirin 81 Mg Tab.Chew) 81 mg PO DAILY [facility] Last Admin: 01/14/23 09:09 Dose: 81 mg Documented By: THAO Atorvastatin Calcium (Atorvastatin Calcium 80 Mg Tablet) 80 mg PO BEDTIME [facility] Last Admin: 01/13/23 21:27 Dose: 80 mg Documented By: ELLIE Dextrose (Dextrose 50 % 25 Gm/50 Ml Syringe) 25 gm IVPUSH Q15M PRN; Protocol PRN Reason: per Hypoglycemia Standing Ord. Docusate Sodium (Docusate Sodium 100 Mg Capsule) 100 mg PO BID [facility] Last Admin: 01/14/23 09:10 Dose: 100 mg Documented By: THAO Ezetimibe (Ezetimibe 10 Mg Tablet) 10 mg PO DAILY [facility] Last Admin: 01/14/23 09:10 Dose: 10 mg Documented By: THAO Furosemide (Furosemide 40 Mg Tablet) 40 mg PO BID [facility]; Protocol Last Admin: 01/14/23 09:11 Dose: 40 mg Documented By: THAO Gabapentin (Gabapentin 300 Mg Capsule) 300 mg PO DAILY [facility] Last Admin: 01/14/23 09:10 Dose: 300 mg Documented By: THAO Glipizide (Glipizide 10 Mg Tablet) 10 mg PO BID [facility] Last Admin: 01/14/23 09:10 Dose: 10 mg Documented By: THAO Glucose (Glucose Gel 15 Gm Gel..Gram.) 15 gm PO Q15M PRN; Protocol PRN Reason: per Hypoglycemia Standing Ord. Heparin Sodium (Porcine) (Heparin Sodium,Porcine 5,000 Unit/Ml Vial) 5,000 unit SUBCUT Q8H [facility] Last Admin: 01/14/23 09:09 Dose: 5,000 unit Documented By: THAO Hydralazine HCl (Hydralazine Hcl 50 Mg Tablet) 100 mg PO TID [facility]; Protocol Last Admin: 01/14/23 09:10 Dose: 100 mg Documented By: THAO Insulin Glargine (Insulin Glargine,Hum.Rec.Anlog 100 Unit/Ml 10 Ml Vial) 25 unit SUBCUT BEDTIME [facility] Last Admin: 01/13/23 21:10 Dose: Not Given Documented By: ELLIE Non-Admin Reason: Physician Held Med Comments: see nursing note Insulin Human Lispro (Insulin Lispro 100 Unit/Ml 3 Ml Vial) 0 unit SUBCUT QIDACHS [facility]; Protocol Last Admin: 01/14/23 08:37 Dose: Not Given Documented By: THAO Non-Admin Reason: See Note Comments: [id number] Isosorbide Mononitrate (Isosorbide Mononitrate 60 Mg Tab.Er.24h) 60 mg PO DAILY [facility]; Protocol Last Admin: 01/14/23 09:10 Dose: 60 mg Documented By: THAO Losartan Potassium (Losartan Potassium 50 Mg Tablet) 100 mg PO DAILY [facility]; Protocol Last Admin: 01/14/23 09:10 Dose: 100 mg Documented By: THAO Melatonin (Melatonin 3 Mg Tablet) 6 mg PO BEDTIME PRN PRN Reason: Insomnia Last Admin: 01/13/23 21:27 Dose: 6 mg Documented By: ELLIE Metoprolol Succinate (Metoprolol Succinate Er 100 Mg Tab.Er.24h) 100 mg PO DAILY [facility]; Protocol Last Admin: 01/14/23 09:11 Dose: 100 mg Documented By: THAO Non-Formulary Medication (Nabumetone) 500 mg PO BID [facility] Ondansetron HCl (Ondansetron Hcl 4 Mg/2 Ml Vial) 4 mg IVPUSH Q8H PRN PRN Reason: Nausea and Vomiting Oxycodone HCl (Oxycodone Hcl Immed Release 5 Mg Tablet) 5 mg PO Q6H PRN PRN Reason: Pain, Severe (Pain Scale 7-10) Senna (Sennosides 8.6 Mg Tablet) 17.2 mg PO BEDTIME PRN PRN Reason: Constipation Sertraline HCl (Sertraline Hcl 50 Mg Tablet) 50 mg PO DAILY [facility] Last Admin: 01/14/23 09:11 Dose: 50 mg Documented By: THAO Sitagliptin Phosphate (Sitagliptin Phosphate 100 Mg Tablet) 100 mg PO DAILY [facility] Last Admin: 01/14/23 09:10 Dose: 100 mg Documented By: THAO Sodium Chloride (0.9 % Sodium Chloride Flush 3 Ml Syringe) 3 ml IVFLUSH QSHIFT [facility] Last Admin: 01/14/23 09:11 Dose: 3 ml Documented By: THAO Tamsulosin HCl (Tamsulosin Hcl 0.4 Mg Capsule) 0.4 mg PO BEDTIME [facility] Last Admin: 01/13/23 21:27 Dose: 0.4 mg Documented By: ELLIE Labs 01/14/23 06:38 01/14/23 06:38 Labs: Laboratory Results - last 24 hr 01/13/23 01/13/23 01/13/23 11:18 15:58 20:14 MCV MCH MCHC RDW Plt Count MPV Immature Gran % (Auto) Neut % (Auto) Lymph % (Auto) [place] % (Auto) Eos % (Auto) Baso % (Auto) Lymph # (Auto) [place] # (Auto) Eos # (Auto) Baso # (Auto) Abs Immat Gran (auto) Absolute Neuts (auto) Absolute Nucleated RBC Nucleated RBC % (auto) Anion Gap Estim Creat Clear Calc Estimated GFR POC Glucose 167 H 87 142 H Fasting Glucose Calcium Total Bilirubin AST ALT Alkaline Phosphatase Total Protein Albumin 01/14/23 01/14/23 06:38 07:27 MCV 95.0 MCH 31.5 MCHC 33.2 RDW 13.2 Plt Count 247 MPV 10.3 Immature Gran % (Auto) 0.4 Neut % (Auto) 68.2 Lymph % (Auto) 14.9 L [place] % (Auto) 11.4 H Eos % (Auto) 4.3 H Baso % (Auto) 0.8 Lymph # (Auto) 1.2 [place] # (Auto) 0.9 Eos # (Auto) 0.3 Baso # (Auto) 0.1 Abs Immat Gran (auto) 0.03 Absolute Neuts (auto) 5.4 Absolute Nucleated RBC 0.000 Nucleated RBC % (auto) 0.0 Anion Gap 11 L Estim Creat Clear Calc 21.7 Estimated GFR 17 POC Glucose 102 Fasting Glucose 92 Calcium 8.6 Total Bilirubin 0.2 AST 26 ALT 17 Alkaline Phosphatase 77 Total Protein 6.1 L Albumin 2.3 L Assessment and Plan (1) Acute on chronic diastolic heart failure: Status: Acute Plan 67 year old pleasant Swedish speaking male with past medical history of Type 2 diabetes mellitus (on Insulin), 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 He describes worsening shortness of breath over the last 3 days with associated right lower extremity swelling and pain and also elevated blood pressure and blood sugars despite being compliant with his medications. Admitted with IV diuresis with some improvement in symptoms Acute on chronic diastolic heart failure continue IV diuresis Cardiology consultation Proximally 2.2 L negative since admit Uncontrolled Hypertension Continue hydralazine, amlodipine, losartan, isosorbide added Coreg 25mg bid, minoxidil 2.5 mg renal doppler to assess for LORENZO Monitor blood pressure carefully Acute on chronic renal failure. Creatinine trending down Seen by Nephrology> check UA, urine lytes and bladder scan Normocytic anemia Above transfusion threshold Follow H&H DVT prophylaxis heparin Attending Dr. Addison Full code Continue hospitalization for treatment of acute on chronic congestive heart failure requiring IV diuretics Quality Stroke Does the patient have a stroke diagnosis?: No VTE Prior VTE?: No VTE Risk Level:: Medical - moderate - high VTE Device Contraindication: Treatment Not Indicated VTE Drug Contraindication: N/A - Med Ordered
--- NOTE | 2023-01-14 11:03 | P.CONCA_ITS ---
History of Present Illness History of Present Illness Date of Service: 01/14/23 Requesting physician: Erin Self Consult reason: congestive heart failure and other (Uncontrolled hypertension) Chief complaint: Hypertensive Urg; Acute on Chronic renal Failure Narrative: I was requested to see Issa in cardiology consultation today due to presentation with shortness of breath and diagnosed with CHF exacerbation and was diuresed. Has had about negative balance of about 2400 cc. He shortness of breath is improved. However his blood pressure remains difficult control. He is on multiple antihypertensive agents including Norvasc 10 mg, hydralazine 100 mg t.i.d., Toprol-XL 100 mg, losartan 100 mg, Lasix 40 mg b.i.d.. Patient's blood pressures still remain elevated in the 170-180 systolic range. Patient denies any chest pain or shortness of breath current time. Has been receiving all his medications. Prior history of diastolic heart failure with LVEF of 60% by last echocardiogram. No evidence of significant coronary artery disease. Does have longstanding diabetes as well as bilateral below knee amputations as well as chronic kidney disease Review of Systems 2 Constitutional: Constitutional: Reports no additional constitutional complaints Eyes: Eyes: Reports no additional eye complaints Cardiovascular: Cardiovascular: Reports no additional cardiovascular complaints Respiratory: Respiratory: Reports no additional respiratory complaints Gastrointestinal: Gastrointestinal: Reports no additional gastrointestinal complaints Genitourinary: Genitourinary: Reports no additional male genitourinary complaints Musculoskeletal: Musculoskeletal: Reports no additional musculoskeletal complaints Neurologic: Reports system reviewed and no additional complaints, except as documented Psychiatric: Psychiatric: Reports no additional psychiatric complaints Endocrine: Endocrine: Reports no additional endocrine complaints [facility] Past Medical History Medical History Erectile dysfunction CKD (chronic kidney disease) stage 3, GFR 30-59 ml/min (HFpEF) heart failure with preserved ejection fraction Osteomyelitis CKD stage 3 due to type 2 diabetes mellitus LIVE (iron deficiency anemia) Hyperlipidemia associated with type 2 diabetes mellitus Type 2 diabetes mellitus Kidney disease High cholesterol HTN (hypertension) Diabetes PAD (peripheral artery disease) Family History Family History Other No family history of coronary artery disease Surgical History Surgical History Status post transmetatarsal amputation of left foot Hx of amputation History of amputation of right forefoot H/O shoulder surgery Social History Social History Household Members: None Housing: Apartment Do you presently have visiting nurse or other home services: Yes ([employer] ONLY) Alcohol intake: current Alcohol intake frequency: a few times a month Alcohol type: beer Patient Tobacco Use Status: Never used Tobacco Tobacco use type: Cigarette Smoked in Last 30 Days: No Patient Interested in Nicotine Replacement: No Patient Given Instructions on How to Stop Smoking: No Use of substances other than those prescribed or required for medical reasons: No Substance Use Type: Crack/Cocaine Currently Displaying Signs/Symptoms of Drug Intoxication Withdrawal: No Any prior treatment program specific to substance use: No Have you been hit, kicked, punched, or otherwise hurt by someone within the past year? If so, by whom?: No Do you feel safe in your current relationship?: No Current Relationship Is there a partner from a previous relationship who is making you feel unsafe now?: No Are you made to feel afraid or neglected: No Advance Directives: Yes Advance Directives on File: Yes Advance Directives Date on File: 02/02/22 Do you have thoughts of harming others: None Do you have a plan to hurt others: No Plan Recently lost weight without trying: No Eating poorly because of decreased appetite: No Nutrition Risks: No Nutritional Risk Poor oral hygiene: No service: No Current occupational status: retired [employer] Allergies Allergy/AdvReac Type Severity Reaction Status Date / Time metformin AdvReac Unknown Verified 01/01/23 13:30 Active Medications: Current Medications Acetaminophen (Acetaminophen 325 Mg Tablet) 650 mg PO Q6H PRN PRN Reason: Pain, Mild (Pain Scale 1-3) Al Hydroxide/Mg Hydroxide (Magnesium Hydrox/Alum Hydrox 30 Ml Oral.Susp) 30 ml PO Q4H PRN PRN Reason: Heartburn/Nausea Albuterol Sulfate (Albuterol Sulfate 90 Mcg 8 Gm Inhaler) 2 puff INHALE Q4H PRN PRN Reason: Wheezing Amlodipine Besylate (Amlodipine Besylate 10 Mg Tablet) 10 mg PO BEDTIME [facility]; Protocol Last Admin: 01/13/23 21:27 Dose: 10 mg Aspirin (Aspirin 81 Mg Tab.Chew) 81 mg PO DAILY [facility] Last Admin: 01/14/23 09:09 Dose: 81 mg Atorvastatin Calcium (Atorvastatin Calcium 80 Mg Tablet) 80 mg PO BEDTIME [facility] Last Admin: 01/13/23 21:27 Dose: 80 mg Dextrose (Dextrose 50 % 25 Gm/50 Ml Syringe) 25 gm IVPUSH Q15M PRN; Protocol PRN Reason: per Hypoglycemia Standing Ord. Docusate Sodium (Docusate Sodium 100 Mg Capsule) 100 mg PO BID [facility] Last Admin: 01/14/23 09:10 Dose: 100 mg Ezetimibe (Ezetimibe 10 Mg Tablet) 10 mg PO DAILY [facility] Last Admin: 01/14/23 09:10 Dose: 10 mg Furosemide (Furosemide 40 Mg Tablet) 40 mg PO BID [facility]; Protocol Last Admin: 01/14/23 09:11 Dose: 40 mg Gabapentin (Gabapentin 300 Mg Capsule) 300 mg PO DAILY [facility] Last Admin: 01/14/23 09:10 Dose: 300 mg Glipizide (Glipizide 10 Mg Tablet) 10 mg PO BID [facility] Last Admin: 01/14/23 09:10 Dose: 10 mg Glucose (Glucose Gel 15 Gm Gel..Gram.) 15 gm PO Q15M PRN; Protocol PRN Reason: per Hypoglycemia Standing Ord. Heparin Sodium (Porcine) (Heparin Sodium,Porcine 5,000 Unit/Ml Vial) 5,000 unit SUBCUT Q8H [facility] Last Admin: 01/14/23 09:09 Dose: 5,000 unit Hydralazine HCl (Hydralazine Hcl 50 Mg Tablet) 100 mg PO TID [facility]; Protocol Last Admin: 01/14/23 09:10 Dose: 100 mg Insulin Glargine (Insulin Glargine,Hum.Rec.Anlog 100 Unit/Ml 10 Ml Vial) 25 unit SUBCUT BEDTIME [facility] Last Admin: 01/13/23 21:10 Dose: Not Given Insulin Human Lispro (Insulin Lispro 100 Unit/Ml 3 Ml Vial) 0 unit SUBCUT QIDACHS [facility]; Protocol Last Admin: 01/14/23 08:37 Dose: Not Given Isosorbide Mononitrate (Isosorbide Mononitrate 60 Mg Tab.Er.24h) 60 mg PO DAILY [facility]; Protocol Last Admin: 01/14/23 09:10 Dose: 60 mg Losartan Potassium (Losartan Potassium 50 Mg Tablet) 100 mg PO DAILY [facility]; Protocol Last Admin: 01/14/23 09:10 Dose: 100 mg Melatonin (Melatonin 3 Mg Tablet) 6 mg PO BEDTIME PRN PRN Reason: Insomnia Last Admin: 01/13/23 21:27 Dose: 6 mg Non-Formulary Medication (Nabumetone) 500 mg PO BID [facility] Ondansetron HCl (Ondansetron Hcl 4 Mg/2 Ml Vial) 4 mg IVPUSH Q8H PRN PRN Reason: Nausea and Vomiting Oxycodone HCl (Oxycodone Hcl Immed Release 5 Mg Tablet) 5 mg PO Q6H PRN PRN Reason: Pain, Severe (Pain Scale 7-10) Senna (Sennosides 8.6 Mg Tablet) 17.2 mg PO BEDTIME PRN PRN Reason: Constipation Sertraline HCl (Sertraline Hcl 50 Mg Tablet) 50 mg PO DAILY [facility] Last Admin: 01/14/23 09:11 Dose: 50 mg Sitagliptin Phosphate (Sitagliptin Phosphate 100 Mg Tablet) 100 mg PO DAILY [facility] Last Admin: 01/14/23 09:10 Dose: 100 mg Sodium Chloride (0.9 % Sodium Chloride Flush 3 Ml Syringe) [facility] Last Admin: 01/14/23 09:11 Dose: 3 ml Sodium Chloride (0.9 % Sodium Chloride Flush 3 Ml Syringe) 3 ml IVFLUSH [facility] Tamsulosin HCl (Tamsulosin Hcl 0.4 Mg Capsule) 0.4 mg PO BEDTIME [facility] Last Admin: 01/13/23 21:27 Dose: 0.4 mg Home Medications Medication Instructions Recorded Confirmed Last Taken Type sertraline 50 mg tablet 50 mg PO DAILY 04/27/21 01/13/23 09/28/22 History nabumetone 500 mg tablet 500 mg PO BID 07/17/22 01/13/23 09/28/22 History albuterol sulfate 90 mcg/actuation 2 puff inhalation Q4H PRN Wheezing 01/13/23 01/13/23 Unknown History aerosol inhaler (Ventolin HFA) amlodipine 10 mg tablet 10 mg PO QPM 01/13/23 01/13/23 Unknown History aspirin 81 mg chewable tablet 1 tab PO QAM 01/13/23 01/13/23 Unknown History atorvastatin 80 mg tablet 80 mg PO BEDTIME 01/13/23 01/13/23 Unknown History docusate sodium 100 mg capsule 100 mg PO BEDTIME 01/13/23 01/13/23 Unknown History ezetimibe 10 mg tablet 10 mg PO QAM 01/13/23 01/13/23 Unknown History flash glucose scanning reader 01/13/23 01/13/23 Unknown History (FreeStyle Daniel 2 [place]) flash glucose sensor (FreeStyle 01/13/23 01/13/23 Unknown History Daniel 2 Sensor kit) fluticasone propionate 50 2 spray intranasal QAM PRN 01/13/23 01/13/23 Unknown History mcg/actuation nasal Congestion spray,suspension furosemide 40 mg tablet 40 mg PO BID 01/13/23 01/13/23 Unknown History gabapentin 300 mg capsule 300 mg PO QAM 01/13/23 01/13/23 Unknown History glipizide 10 mg tablet 10 mg PO BID 01/13/23 01/13/23 Unknown History hydralazine 50 mg tablet 100 mg PO TID 01/13/23 01/13/23 Unknown History insulin degludec 100 unit/mL (3 25 unit subcut DAILY 01/13/23 01/13/23 Unknown History mL) subcutaneous pen ([employer] FlexTouch U-100 insulin) isosorbide mononitrate 60 mg 60 mg PO QAM 01/13/23 01/13/23 Unknown History tablet,extended release 24 hr losartan 50 mg tablet 100 mg PO QAM 01/13/23 01/13/23 Unknown History metoprolol succinate 100 mg 100 mg PO QAM 01/13/23 01/13/23 Unknown History tablet,extended release 24 hr sitagliptin phosphate 100 mg 100 mg PO QAM 01/13/23 01/13/23 Unknown History tablet (Delvinuvkaterina) tamsulosin 0.4 mg capsule 0.4 mg PO QPM 01/13/23 01/13/23 Unknown History Physical Exam 2 Vital Signs: Vital Signs: Last Vital Signs Temp 97.3 F 01/14/23 07:25 Pulse 69 01/14/23 07:25 Resp 20 01/14/23 07:25 BP 194/77 H 01/14/23 07:25 Pulse Ox 97 01/14/23 07:25 O2 Del Method Room Air 01/14/23 07:25 BMI result Body Mass Index 29.6 Const: General: cooperative, comfortable, no acute distress, alert and awake Nutritional Appearance: obese Orientation/consciousness: patient oriented x3 HEENT: Head: Yes normocephalic and Yes atraumatic Neck: Neck: Yes trachea midline, Yes supple and Yes no JVD Resp: Effort & Inspection: normal respiratory effort Auscultation: clear to auscultation bilaterally Cardio: Jugular venous distension: no JVD Rate: regular rate Rhythm: r egular rhythm Heart sounds: S1 normal heart sound present, S2 normal heart sound present, no click, no gallops, no murmurs and Other heart sounds present (S4 present) Skin: General skin exam: no rashes or lesions noted Neuro: General: patient oriented x3 and no focal motor deficits Extrem: General: Yes no clubbing, cyanosis or edema Objective Labs and Meds 01/14/23 06:38 01/14/23 06:38 Lab results: Laboratory Results - last 24 hr 01/13/23 01/13/23 01/13/23 11:18 15:58 20:14 WBC RBC Hgb Hct MCV MCH MCHC RDW Plt Count MPV Immature Gran % (Auto) Neut % (Auto) Lymph % (Auto) [place] % (Auto) Eos % (Auto) Baso % (Auto) Lymph # (Auto) [place] # (Auto) Eos # (Auto) Baso # (Auto) Abs Immat Gran (auto) Absolute Neuts (auto) Absolute Nucleated RBC Nucleated RBC % (auto) Sodium Potassium Chloride Carbon Dioxide Anion Gap BUN Creatinine Estim Creat Clear Calc Estimated GFR POC Glucose 167 H 87 142 H Fasting Glucose Calcium Total Bilirubin AST ALT Alkaline Phosphatase Total Protein Albumin 01/14/23 01/14/23 06:38 07:27 WBC 8.0 RBC 2.60 L Hgb 8.2 L Hct 24.7 L MCV 95.0 MCH 31.5 MCHC 33.2 RDW 13.2 Plt Count 247 MPV 10.3 Immature Gran % (Auto) 0.4 Neut % (Auto) 68.2 Lymph % (Auto) 14.9 L [place] % (Auto) 11.4 H Eos % (Auto) 4.3 H Baso % (Auto) 0.8 Lymph # (Auto) 1.2 [place] # (Auto) 0.9 Eos # (Auto) 0.3 Baso # (Auto) 0.1 Abs Immat Gran (auto) 0.03 Absolute Neuts (auto) 5.4 Absolute Nucleated RBC 0.000 Nucleated RBC % (auto) 0.0 Sodium 143 Potassium 4.0 Chloride 114 H Carbon Dioxide 22 Anion Gap 11 L BUN 47 H Creatinine 3.68 H Estim Creat Clear Calc 21.7 Estimated GFR 17 POC Glucose 102 Fasting Glucose 92 Calcium 8.6 Total Bilirubin 0.2 AST 26 ALT 17 Alkaline Phosphatase 77 Total Protein 6.1 L Albumin 2.3 L EKG shows no acute changes Assessment and Plan (1) Acute on chronic diastolic heart failure: Status: Acute Patient presented on admission with shortness of breath and diuresed about 2.5 L. continue oral Lasix. Clinically appears to be euvolemic today. Continue aggressive control blood pressure. Combination diastolic heart failure related to uncontrolled blood pressure, advancing kidney disease. Continue to follow with Nephrology consultation. Does not appear to be uremic and dialysis decision for fluid removal based on Nephrology input. (2) Uncontrolled hypertension: Status: Acute Uncontrolled hypertension in this elderly gentleman with multiple risk factors. Renal artery stenosis needs to be ruled out. Consider renal duplex. Switch Toprol-XL to carvedilol 25 mg b.i.d. for additional antihypertensive response. Also add minoxidil 2.5 mg b.i.d. to his regimen. Given his advancing kidney disease unlikely to add mineral corticoid inhibitor therapy, however can consult with Nephrology for the same. Will follow with you Procedures Date of Service Date of Service: 01/14/23
[2023-01-14 11:29] VITALS: BP 140/65; PULSE 58; RESP 16; TEMP 36.3; O2SAT 98
[2023-01-14 11:37] LABS: Glucose, Whole Blood 148 mg/dL (60-115)
--- NOTE | 2023-01-14 12:39 | PM.CNNEP ---
History of Present Illness Reason for Consult Consult date: 01/14/23 Chief Complaint Chief complaint: Hypertensive Urg; Acute on Chronic renal Failure History of Present Illness Narrative: RTANE consulted to eval KEYA on adv CKD in setting of HTN urgencty and dCHF. In summary adv CKD well known to me as last seen in office 11/2022 for ongoing management of CKD 4. 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 Anemia: Fe and ques EPO def state Overall doing better since adm with ongoing diuresis and BP control REC: cont BP as noted but may need to hold ARB if SCr incr futher; vasc eval of RRAS and consider MRA to furhter eval vs CO2 angio; protect non-dominat arm for future AVF; check Fe studies and PTH/vit D full dict consult to follow Review of Systems Review of Systems Follow-up congestive heart failure and hypertensive urgency No complaints of shortness of breath or chest pain Sitting up in a chair Yes all other systems are reviewed and are negative Constitutional: Reports no additional constitutional complaints Eyes: Reports no additional eye complaints Cardiovascular: Reports no additional cardiovascular complaints Respiratory: Reports no additional respiratory complaints Gastrointestinal: Reports no additional gastrointestinal complaints Genitourinary: Reports no additional male genitourinary complaints Musculoskeletal: Reports no additional musculoskeletal complaints Reports system reviewed and no additional complaints, except as documented Psychiatric: Reports no additional psychiatric complaints Endocrine: Reports no additional endocrine complaints PMFSH Past Medical History Medical History Erectile dysfunction CKD (chronic kidney disease) stage 3, GFR 30-59 ml/min (HFpEF) heart failure with preserved ejection fraction Osteomyelitis CKD stage 3 due to type 2 diabetes mellitus LIVE (iron deficiency anemia) Hyperlipidemia associated with type 2 diabetes mellitus Type 2 diabetes mellitus Kidney disease High cholesterol HTN (hypertension) Diabetes PAD (peripheral artery disease) Family History Family History Other No family history of coronary artery disease Surgical History Surgical History Status post transmetatarsal amputation of left foot Hx of amputation History of amputation of right forefoot H/O shoulder surgery Social History Social History Household Members: None Housing: Apartment Do you presently have visiting nurse or other home services: Yes (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) Alcohol intake: current Alcohol intake frequency: a few times a month Alcohol type: beer Patient Tobacco Use Status: Never used Tobacco Tobacco use type: Cigarette Smoked in Last 30 Days: No Patient Interested in Nicotine Replacement: No Patient Given Instructions on How to Stop Smoking: No Use of substances other than those prescribed or required for medical reasons: No Substance Use Type: Crack/Cocaine Currently Displaying Signs/Symptoms of Drug Intoxication Withdrawal: No Any prior treatment program specific to substance use: No Have you been hit, kicked, punched, or otherwise hurt by someone within the past year? If so, by whom?: No Do you feel safe in your current relationship?: No Current Relationship Is there a partner from a previous relationship who is making you feel unsafe now?: No Are you made to feel afraid or neglected: No Advance Directives: Yes Advance Directives on File: Yes Advance Directives Date on File: 02/02/22 Do you have thoughts of harming others: None Do you have a plan to hurt others: No Plan Recently lost weight without trying: No Eating poorly because of decreased appetite: No Nutrition Risks: No Nutritional Risk Poor oral hygiene: No service: No Current occupational status: retired Meds Allergies Allergy/AdvReac Type Severity Reaction Status Date / Time metformin AdvReac Unknown Verified 01/01/23 13:30 Active Medications: Current Medications Acetaminophen (Acetaminophen 325 Mg Tablet) 650 mg PO Q6H PRN PRN Reason: Pain, Mild (Pain Scale 1-3) Al Hydroxide/Mg Hydroxide (Magnesium Hydrox/Alum Hydrox 30 Ml Oral.Susp) 30 ml PO Q4H PRN PRN Reason: Heartburn/Nausea Albuterol Sulfate (Albuterol Sulfate 90 Mcg 8 Gm Inhaler) 2 puff INHALE Q4H PRN PRN Reason: Wheezing Amlodipine Besylate (Amlodipine Besylate 10 Mg Tablet) 10 mg PO BEDTIME ANNABELLA; Protocol Last Admin: 01/13/23 21:27 Dose: 10 mg Aspirin (Aspirin 81 Mg Tab.Chew) 81 mg PO DAILY ANNABELLA Last Admin: 01/14/23 09:09 Dose: 81 mg Atorvastatin Calcium (Atorvastatin Calcium 80 Mg Tablet) 80 mg PO BEDTIME ANNABELLA Last Admin: 01/13/23 21:27 Dose: 80 mg Dextrose (Dextrose 50 % 25 Gm/50 Ml Syringe) 25 gm IVPUSH Q15M PRN; Protocol PRN Reason: per Hypoglycemia Standing Ord. Docusate Sodium (Docusate Sodium 100 Mg Capsule) [address] [facility] Last Admin: 01/14/23 09:10 Dose: 100 mg Ezetimibe (Ezetimibe 10 Mg Tablet) [address] [facility] Last Admin: 01/14/23 09:10 Dose: 10 mg Furosemide (Furosemide 40 Mg Tablet) [address] [facility]; Protocol Last Admin: 01/14/23 09:11 Dose: 40 mg Gabapentin (Gabapentin 300 Mg Capsule) [address] [facility] Last Admin: 01/14/23 09:10 Dose: 300 mg Glipizide (Glipizide 10 Mg Tablet) [address] [facility] Last Admin: 01/14/23 09:10 Dose: 10 mg Glucose (Glucose Gel 15 Gm Gel..Gram.) 15 gm PO Q15M PRN; Protocol PRN Reason: per Hypoglycemia Standing Ord. Heparin Sodium (Porcine) (Heparin Sodium,Porcine 5,000 Unit/Ml Vial) 5,[address] [facility] Last Admin: 01/14/23 09:09 Dose: 5,000 unit Hydralazine HCl (Hydralazine Hcl 50 Mg Tablet) [address] [facility]; Protocol Last Admin: 01/14/23 09:10 Dose: 100 mg Insulin Glargine (Insulin Glargine,Hum.Rec.Anlog 100 Unit/Ml 10 Ml Vial) [address] [facility] Last Admin: 01/13/23 21:10 Dose: Not Given Insulin Human Lispro (Insulin Lispro 100 Unit/Ml 3 Ml Vial) [address] [facility]; Protocol Last Admin: 01/14/23 11:53 Dose: Not Given Isosorbide Mononitrate (Isosorbide Mononitrate 60 Mg Tab.Er.24h) [address] [facility]; Protocol Last Admin: 01/14/23 09:10 Dose: 60 mg Losartan Potassium (Losartan Potassium 50 Mg Tablet) [address] [facility]; Protocol Last Admin: 01/14/23 09:10 Dose: 100 mg Melatonin (Melatonin 3 Mg Tablet) 6 mg PO BEDTIME PRN PRN Reason: Insomnia Last Admin: 01/13/23 21:27 Dose: 6 mg Non-Formulary Medication (Nabumetone) [address] [facility] Ondansetron HCl (Ondansetron Hcl 4 Mg/2 Ml Vial) 4 mg IVPUSH Q8H PRN PRN Reason: Nausea and Vomiting Oxycodone HCl (Oxycodone Hcl Immed Release 5 Mg Tablet) 5 mg PO Q6H PRN PRN Reason: Pain, Severe (Pain Scale 7-10) Senna (Sennosides 8.6 Mg Tablet) 17.2 mg PO BEDTIME PRN PRN Reason: Constipation Sertraline HCl (Sertraline Hcl 50 Mg Tablet) [address] [facility] Last Admin: 01/14/23 09:11 Dose: 50 mg Sitagliptin Phosphate (Sitagliptin Phosphate 100 Mg Tablet) [address] [facility] Last Admin: 01/14/23 09:10 Dose: 100 mg Sodium Chloride (0.9 % Sodium Chloride Flush 3 Ml Syringe) 3 ml IVFLUSH [facility] Last Admin: 01/14/23 09:11 Dose: 3 ml Sodium Chloride (0.9 % Sodium Chloride Flush 3 Ml Syringe) 3 ml IVFLUSH [facility] Tamsulosin HCl (Tamsulosin Hcl 0.4 Mg Capsule) 0.[address] [facility] Last Admin: 01/13/23 21:27 Dose: 0.4 mg Home Medications Medication Instructions Recorded Confirmed Last Taken Type sertraline 50 mg tablet 50 mg PO DAILY 04/27/21 01/13/23 09/28/22 History nabumetone 500 mg tablet 500 mg PO BID 07/17/22 01/13/23 09/28/22 History albuterol sulfate 90 mcg/actuation 2 puff inhalation Q4H PRN Wheezing 01/13/23 01/13/23 Unknown History aerosol inhaler (Ventolin HFA) amlodipine 10 mg tablet 10 mg PO QPM 01/13/23 01/13/23 Unknown History aspirin 81 mg chewable tablet 1 tab PO QAM 01/13/23 01/13/23 Unknown History atorvastatin 80 mg tablet 80 mg PO BEDTIME 01/13/23 01/13/23 Unknown History docusate sodium 100 mg capsule 100 mg PO BEDTIME 01/13/23 01/13/23 Unknown History ezetimibe 10 mg tablet 10 mg PO QAM 01/13/23 01/13/23 Unknown History flash glucose scanning reader 01/13/23 01/13/23 Unknown History (FreeStyle Daniel 2 [place]) flash glucose sensor (FreeStyle 01/13/23 01/13/23 Unknown History Daniel 2 Sensor kit) fluticasone propionate 50 2 spray intranasal QAM PRN 01/13/23 01/13/23 Unknown History mcg/actuation nasal Congestion spray,suspension furosemide 40 mg tablet 40 mg PO BID 01/13/23 01/13/23 Unknown History gabapentin 300 mg capsule 300 mg PO QAM 01/13/23 01/13/23 Unknown History glipizide 10 mg tablet 10 mg PO BID 01/13/23 01/13/23 Unknown History hydralazine 50 mg tablet 100 mg PO TID 01/13/23 01/13/23 Unknown History insulin degludec 100 unit/mL (3 25 unit subcut DAILY 01/13/23 01/13/23 Unknown History mL) subcutaneous pen (Tresiba FlexTouch U-100 insulin) isosorbide mononitrate 60 mg 60 mg PO QAM 01/13/23 01/13/23 Unknown History tablet,extended release 24 hr losartan 50 mg tablet 100 mg PO QAM 01/13/23 01/13/23 Unknown History metoprolol succinate 100 mg 100 mg PO QAM 01/13/23 01/13/23 Unknown History tablet,extended release 24 hr sitagliptin phosphate 100 mg 100 mg PO QAM 01/13/23 01/13/23 Unknown History tablet (Januvia) tamsulosin 0.4 mg capsule 0.4 mg PO QPM 01/13/23 01/13/23 Unknown History Physical Exam Vital Signs: Last Vital Signs Temp 97.3 F 01/14/23 11:29 Pulse 58 01/14/23 11:29 Resp 16 01/14/23 11:29 BP 140/65 H 01/14/23 11:29 Pulse Ox 98 01/14/23 11:29 O2 Del Method Room Air 01/14/23 11:29 BMI result Body Mass Index 29.6 Const Other: Awake alert no acute distress General: cooperative, comfortable, no acute distress, alert and awake Nutritional Appearance: obese Orientation/consciousness: patient oriented x3 HEENT Head: Yes normocephalic and Yes atraumatic Neck Neck: Yes trachea midline, Yes supple and Yes no JVD Resp Other: Clear to auscultation bilaterally no rales rhonchi or wheezes Effort & Inspection: normal respiratory effort Auscultation: clear to auscultation bilaterally Cardio Other: No S4; positive S1-S2; no S3 murmurs rubs or gallops Jugular venous distension: no JVD Rate: regular rate Rhythm: regular rhythm Heart sounds: S1 normal heart sound present, S2 normal heart sound present, no click, no gallops, no murmurs and Other heart sounds present (S4 present) GI Other: Soft nontender nondistended normoactive bowel sounds Skin General skin exam: no rashes or lesions noted Neuro Other: Cranial nerves 2-12 grossly intact as tested. Motor is 5/5 all extremities. Sensation is intact General: patient oriented x3 and no focal motor deficits Extrem Other: No edema bilaterally General: Yes no clubbing, cyanosis or edema Results Lab Results 01/14/23 06:38 01/14/23 06:38 Lab results: Chemistry 01/12/23 01/13/23 01/14/23 22:28 07:26 06:38 Sodium 143 144 143 Potassium 4.0 3.6 4.0 Carbon Dioxide 21 L 21 L 22 BUN 55 H 51 H 47 H Creatinine 4.16 H* 3.75 H 3.68 H Calcium 8.3 L D 8.6 8.6 Hematology 01/12/23 01/13/23 01/14/23 22:28 07:26 06:38 WBC 8.0 8.2 8.0 Hgb 8.0 L 8.6 L 8.2 L Plt Count 223 261 247 Assessment and Plan (1) Acute on chronic diastolic heart failure: Status: Acute (2) Uncontrolled hypertension: Status: Acute Plan 67 year old pleasant Iraqi speaking male with past medical history of Type 2 diabetes mellitus (on Insulin), 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 He describes worsening shortness of breath over the last 3 days with associated right lower extremity swelling and pain and also elevated blood pressure and blood sugars despite being compliant with his medications. Admitted with IV diuresis with some improvement in symptoms Acute on chronic diastolic heart failure continue IV diuresis Cardiology consultation Proximally 2.2 L negative since admit Uncontrolled Hypertension Continue hydralazine, amlodipine, losartan, isosorbide added Coreg 25mg bid, minoxidil 2.5 mg renal doppler to assess for LORENZO Monitor blood pressure carefully Acute on chronic renal failure. Creatinine trending down Seen by Nephrology> check UA, urine lytes and bladder scan Normocytic anemia Above transfusion threshold Follow H&H DVT prophylaxis heparin Attending Dr. Addison Full code Continue hospitalization for treatment of acute on chronic congestive heart failure requiring IV diuretics Procedures Date of Service Date of Service: 01/14/23
--- NOTE | 2023-01-14 15:07 | MHC.CM.PN ---
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
[2023-01-14 15:53] VITALS: BP 181/78; PULSE 57; RESP 16; TEMP 36.3; O2SAT 99
[2023-01-14 16:05] LABS: Appearance Urine Clear; Color Urine Yellow; Glucose Urine UA 250 mg/dL (Negative); Leukocyte Esterase Urine Negative (Negative); Nitrite Urine Negative (Negative); PH 5.5 (5.0-9.0); Specific Gravity - Urine 1.015 (1.005-1.025); UMIC TRIGGER UACC YES; Urine Blood Negative (Negative); Urine Ketones Negative (Negative); Urine Protein >=1000 (4+) mg/dL (Neg-Trace)
[2023-01-14 16:08] LABS: Potassium Urine Random 35.5 mmol/L
[2023-01-14 16:15] LABS: Glucose, Whole Blood 111 mg/dL (60-115)
[2023-01-14 16:18] LABS: Bacteria Urine None Seen (None Seen); RBC Urine 0-2 /HPF (0-2); Squamous Epithelial Cell Urine 0-2 /HPF (0-2); WBC Urine 0-5 /HPF (0-5)
[2023-01-14 19:49] VITALS: BP 194/70; PULSE 62; RESP 20; TEMP 36.4; O2SAT 94
[2023-01-14 20:15] LABS: Glucose, Whole Blood 164 mg/dL (60-115)
[2023-01-14] MEDS: Insulin Lispro 100 UNIT/ML 3 ML VIAL SUBCUT (21:47)
[2023-01-14] MEDS: Tamsulosin HCL 0.4 MG CAPSULE PO (21:48)
[2023-01-14] MEDS: Atorvastatin Calcium 80 MG TABLET PO (21:48)
[2023-01-14] MEDS: carvediloL 25 MG TABLET PO (21:48)
[2023-01-14] MEDS: Insulin Glargine,Hum.rec.anlog 100 UNIT/ML 10 ML VIAL 25 UNIT SUBCUT (21:48)
[2023-01-14] MEDS: amLODIPine Besylate 10 MG TABLET PO (21:48)
[2023-01-14] MEDS: minoxidiL 2.5 MG TABLET PO (21:48)
[2023-01-14 23:11] VITALS: BP 163/53; PULSE 71; RESP 20; TEMP 36.2; O2SAT 93
[2023-01-15] MEDS: Heparin Sodium,Porcine 5,000 UNIT/ML VIAL 5000 UNIT SUBCUT ×2 (02:30→08:31)
[2023-01-15 03:30] VITALS: BP 117/49; PULSE 61; RESP 20; TEMP 36.1; O2SAT 96
[2023-01-15 05:13] LABS: Glucose, Whole Blood 48 mg/dL (60-115)
--- NOTE | 2023-01-15 05:36 | PC.NURSE ---
At 2015 pt blood sugar was 164. pt was schedule for 2 units SSI, 25 units Lantus and Glipizide. RN messaged doctor to see if anything should be held. Physician said to give all meds. At 500 pt complained of feeling like they had low blood sugar. Blood glucose was taken and it was 48. Pt drank two juices. Physician was contacted and RN requested a med change.
[2023-01-15 06:02] LABS: Glucose, Whole Blood 91 mg/dL (60-115)
[2023-01-15 06:51] LABS: MANUAL DIFF FLAG NO
[2023-01-15 07:04] LABS: Basophils Percent Auto 0.5 % (0-2); Eosinophils Absolute Auto 0.3 X10*3/uL (0.0-0.4); Eosinophils Percent Auto 2.9 % (0-4); Hematocrit 24.4 % (42.0-52.0); Imm Gran Abs Auto 0.03 X10*3/uL (0.00-0.03); Imm Gran Pct Auto 0.4 % (0.0-0.4); Lymphocytes Absolute Auto 0.7 X10*3/uL (1.2-4.9); Lymphocytes Percent Auto 8.4 % (20-40); Mean Corpuscular HGB Conc 32.8 g/dl (31.0-36.0); Mean Corpuscular Hemoglobin 31.3 pg (27.0-33.0); Mean Corpuscular Volume 95.3 fL (80.0-98.0); Mean Platelet Volume 10.3 fL (9.4-12.4); Monocytes Absolute Auto 0.9 X10*3/uL (0.1-1.2); Neutrophils Absolute Auto 6.6 x10*3/uL (2.0-8.3); Neutrophils Percent Auto 77.8 % (45-73); Platelet Count 235 X10*3/uL (160-400); Red Blood Count 2.56 X10*6/uL (4.60-5.80); Red Cell Distribution Width 13.1 % (11.0-16.0); White Blood Count 8.5 X10*3/uL (4.8-10.8)
[2023-01-15 07:23] LABS: Alanine Aminotransferase 15 U/L (0-40); Albumin Level 2.3 g/dL (3.5-5.0); Alkaline Phosphatase 78 U/L (39-117); Anion Gap 12 (12-20); Aspartate Amino Transferase 21 U/L (5-37); Bilirubin Total 0.1 mg/dL (0.0-1.0); Blood Urea Nitrogen 51 mg/dL (9-16); Calcium 8.3 mg/dL (8.4-10.2); Carbon Dioxide 23 mmol/L (22-29); Chloride 110 mmol/L (96-108); Estimated Glomerular Filt Rate 15; Glucose Fasting 99 mg/dL (60-99); Iron 77 mcg/dL (45-160); Percent Iron Saturation 40 % (15-50); Potassium 4.4 mmol/L (3.3-5.1); Sodium 141 mmol/L (135-145); Total Iron Binding Capacity 193 mcg/dL (228-428); Total Protein 6.2 g/dL (6.5-8.0); Unsaturated Iron Binding 116 ug/dL
[2023-01-15 07:26] VITALS: BP 133/58; PULSE 66; RESP 20; TEMP 36.5; O2SAT 95
[2023-01-15 07:30] LABS: Glucose, Whole Blood 72 mg/dL (60-115)
[2023-01-15 07:38] LABS: Vitamin D 25-OH Total 13.7 ng/mL (>30)
[2023-01-15] MEDS: 0.9 % Sodium Chloride Flush 3 ML SYRINGE IVFLUSH ×2 (08:30→15:10)
[2023-01-15] MEDS: Isosorbide Mononitrate 60 MG TAB.ER.24H PO (08:31)
[2023-01-15] MEDS: Ezetimibe 10 MG TABLET PO (08:31)
[2023-01-15] MEDS: Gabapentin 300 MG CAPSULE PO (08:31)
[2023-01-15] MEDS: minoxidiL 2.5 MG TABLET PO (08:32)
[2023-01-15] MEDS: Furosemide 40 MG TABLET PO (08:32)
[2023-01-15] MEDS: hydrALAZINE HCl 50 MG TABLET 100 MG PO ×2 (08:32→15:10)
[2023-01-15] MEDS: Docusate Sodium 100 MG CAPSULE PO (08:32)
[2023-01-15] MEDS: Losartan Potassium 50 MG TABLET 100 MG PO (08:32)
[2023-01-15] MEDS: carvediloL 25 MG TABLET PO (08:32)
[2023-01-15] MEDS: Sertraline HCL 50 MG TABLET PO (08:32)
[2023-01-15] MEDS: Aspirin 81 MG TAB.CHEW PO (08:32)
--- NOTE | 2023-01-15 10:58 | P.PNCA_ITS ---
Subjective Subjective Date of Service: 01/15/23 Principal diagnosis: Uncontrolled hypertension, CHF Interval history: Reviewed old renal ultrasound which is suggestive of right renal artery stenosis. Has been seen by vascular surgery. Blood pressure is much better controlled since addition of minoxidil. Currently having no shortness of breath. Review of Systems Review of Systems Yes all other systems are reviewed and are negative Physical Exam Vital Signs: Last Vital Signs Temp 97.7 F 01/15/23 07:26 Pulse 66 01/15/23 07:26 Resp 20 01/15/23 07:26 BP 133/58 L 01/15/23 07:26 Pulse Ox 95 01/15/23 07:26 O2 Del Method Room Air 01/15/23 07:26 BMI result Body Mass Index 29.6 Const General: cooperative, comfortable, no acute distress, alert and awake Nutritional Appearance: obese Orientation/consciousness: patient oriented x3 HEENT Head: Yes normocephalic and Yes atraumatic Neck Neck: Yes trachea midline, Yes supple and Yes no JVD Resp Effort & Inspection: normal respiratory effort Auscultation: clear to auscultation bilaterally Cardio Jugular venous distension: no JVD Rate: regular rate Rhythm: regular rhythm Heart sounds: S1 normal heart sound present, S2 normal heart sound present, no click, no gallops, no murmurs and Other heart sounds present (S4 present) Skin General skin exam: no rashes or lesions noted Neuro General: patient oriented x3 and no focal motor deficits Extrem General: Yes no clubbing, cyanosis or edema Objective Labs and Meds 01/15/23 06:25 01/15/23 06:25 Lab results: Laboratory Results - last 24 hr 01/14/23 01/14/23 01/14/23 11:30 15:30 16:08 WBC RBC Hgb Hct MCV MCH MCHC RDW Plt Count MPV Immature Gran % (Auto) Neut % (Auto) Lymph % (Auto) Stevens % (Auto) Eos % (Auto) Baso % (Auto) Lymph # (Auto) Stevens # (Auto) Eos # (Auto) Baso # (Auto) Abs Immat Gran (auto) Absolute Neuts (auto) Absolute Nucleated RBC Nucleated RBC % (auto) Sodium Potassium Chloride Carbon Dioxide Anion Gap BUN Creatinine Estim Creat Clear Calc Estimated GFR POC Glucose 148 H 111 Fasting Glucose Calcium Iron TIBC % Saturation Unsat Iron Binding Total Bilirubin AST ALT Alkaline Phosphatase Total Protein Albumin 25-OH Vitamin D Total Urine Color Yellow Urine Appearance Clear Urine pH 5.5 Ur Specific [place] 1.015 Urine Protein >=1000 (4+) H Urine Glucose (UA) 250 H Urine Ketones Negative Urine Blood Negative Urine Nitrite Negative Ur Leukocyte Esterase Negative Urine RBC 0-2 Urine WBC 0-5 Ur Squamous Epith Cells 0-2 Urine Bacteria None Seen Hyaline Casts 3-5 Ur Random Sodium 55.0 Ur Random Potassium 35.5 Ur Random Chloride 69.0 01/14/23 01/15/23 01/15/23 20:12 05:10 05:57 WBC RBC Hgb Hct MCV MCH MCHC RDW Plt Count MPV Immature Gran % (Auto) Neut % (Auto) Lymph % (Auto) Stevens % (Auto) Eos % (Auto) Baso % (Auto) Lymph # (Auto) Stevens # (Auto) Eos # (Auto) Baso # (Auto) Abs Immat Gran (auto) Absolute Neuts (auto) Absolute Nucleated RBC Nucleated RBC % (auto) Sodium Potassium Chloride Carbon Dioxide Anion Gap BUN Creatinine Estim Creat Clear Calc Estimated GFR POC Glucose 164 H 48 L* 91 Fasting Glucose Calcium Iron TIBC % Saturation Unsat Iron Binding Total Bilirubin AST ALT Alkaline Phosphatase Total Protein Albumin 25-OH Vitamin D Total Urine Color Urine Appearance Urine pH Ur Specific [place] Urine Protein Urine Glucose (UA) Urine Ketones Urine Blood Urine Nitrite Ur Leukocyte Esterase Urine RBC Urine WBC Ur Squamous Epith Cells Urine Bacteria Hyaline Casts Ur Random Sodium Ur Random Potassium Ur Random Chloride 01/15/23 01/15/23 06:25 07:27 WBC 8.5 RBC 2.56 L Hgb 8.0 L Hct 24.4 L MCV 95.3 MCH 31.3 MCHC 32.8 RDW 13.1 Plt Count 235 MPV 10.3 Immature Gran % (Auto) 0.4 Neut % (Auto) 77.8 H Lymph % (Auto) 8.4 L Stevens % (Auto) 10.0 Eos % (Auto) 2.9 Baso % (Auto) 0.5 Lymph # (Auto) 0.7 L Stevens # (Auto) 0.9 Eos # (Auto) 0.3 Baso # (Auto) 0.0 Abs Immat Gran (auto) 0.03 Absolute Neuts (auto) 6.6 Absolute Nucleated RBC 0.000 Nucleated RBC % (auto) 0.0 Sodium 141 Potassium 4.4 Chloride 110 H Carbon Dioxide 23 Anion Gap 12 BUN 51 H Creatinine 3.98 H Estim Creat Clear Calc 20.0 Estimated GFR 15 POC Glucose 72 Fasting Glucose 99 Calcium 8.3 L Iron 77 TIBC 193 L % Saturation 40 Unsat Iron Binding 116 Total Bilirubin 0.1 AST 21 ALT 15 Alkaline Phosphatase 78 Total Protein 6.2 L Albumin 2.3 L 25-OH Vitamin D Total 13.7 L Urine Color Urine Appearance Urine pH Ur Specific [place] Urine Protein Urine Glucose (UA) Urine Ketones Urine Blood Urine Nitrite Ur Leukocyte Esterase Urine RBC Urine WBC Ur Squamous Epith Cells Urine Bacteria Hyaline Casts Ur Random Sodium Ur Random Potassium Ur Random Chloride Progress Note: A&P Assessment and plan (1) Uncontrolled hypertension: Status: Acute Assessment and Plan: Uncontrolled hypertension with much better control with additional minoxidil. Although noted right renal artery stenosis on ultrasound. I think he should be referred to vascular surgery for further evaluation for renal artery stenting at this could better manage his hypertension as well as his heart failure syndrome. This was discussed with the patient. On discharge should be referred to Dr. Topete (2) CHF exacerbation: Status: Acute Assessment and Plan: Heart failure exacerbation which improved quickly with diuretics. Most likely related hypertensive heart disease and renal artery stenosis. I would consider renal artery revascularization with stenting although at risk for contrast induced nephropathy. This was discussed with the patient. Continue oral diuretic regimen. Avoidance of salt loading was discussed. Aggressive control blood pressure was advised which is currently appearing optimized. Patient can be discharged home from my perspective. Will sign of the case Time Spent With Patient Time: Total time managing care of this patient today ____ minutes. Progress Note: Quality Stroke Does the patient have a stroke diagnosis?: No Procedures Date of Service Date of Service: 01/15/23
[2023-01-15 11:12] LABS: Glucose, Whole Blood 176 mg/dL (60-115)
[2023-01-15 11:14] VITALS: BP 125/53; PULSE 62; RESP 20; TEMP 36.3; O2SAT 98
--- NOTE | 2023-01-15 11:52 | CONS_ITS ---
DATE OF SERVICE: 01/14/2023 In summary, the patient is a 67-year-old gentleman, well known to me that I see in the outpatient setting for his advanced chronic kidney disease in setting of diabetes with diabetic nephropathy, who is now admitted to the hospital on the with complaints of shortness of breath and markedly elevated blood pressures along with increasing swelling and fluid retention. In summary, he is a 67-year-old gentleman with again advanced stage 4 chronic kidney disease, baseline creatinine is in the mid 2 range, and a backdrop of underlying diabetes and diabetic nephropathy; peripheral vascular disease, status post left BKA and right TMA; hypertension; hyperlipidemia, who came to the emergency room as mentioned with complaints of chest pain and shortness of breath. He was noted to be markedly hypertensive as well. Overall, he is feeling better, getting some diuresis. His renal functions symptomatically worsened, his baseline creatinine now around 4, whereas usually it is in the mid 2s. He denies any chest pain at the present time. His breathing is much improved. No gross hematuria, dysuria, or problems voiding. He denies taking NSAIDs. PAST MEDICAL HISTORY: As mentioned includes diabetes, is now insulin dependent; stage 4 chronic kidney disease, presumably diabetic nephropathy; heart failure, preserved EF; hyperlipidemia; hypertension that has been hard to control; peripheral vascular disease and in fact back in September when he was hospitalized, we did a Doppler in his renal arteries and there was a question of right renal artery stenosis. MEDICATIONS: His medications on admission are noted in the admitting notes. ALLERGIES: HE HAS ALLERGIES TO METFORMIN. MEDICATIONS: Current medications noted in the MAR. SOCIAL HISTORY: He is a nonsmoker, nondrinker. No illicit drug use. Denies NSAIDs. FAMILY HISTORY: Notable for diabetes. REVIEW OF SYSTEMS: As noted above. PHYSICAL EXAMINATION: VITAL SIGNS: Blood pressure was high systolics in the 220s. HEAD: Atraumatic and normocephalic. NECK: Supple. Mucous membranes are moist. LUNGS: Clear with decreased breath sounds at the bases. CARDIAC: Regular rate and rhythm. ABDOMEN: Soft. EXTREMITIES: Shows 2+ edema. There is no asterixis. LABORATORY DATA: Showed sodium 144, potassium 3.6, chloride 115, bicarb 21, BUN 51, creatinine 3.7, hemoglobin 8.6, hematocrit 25.7. Urine studies showed back in November, 7 g of protein per gram of creatinine. Previous serum immunofixation revealed no monoclonal spike. As mentioned, he had a Doppler of his renal arteries back in September, which showed right renal artery stenosis, suspicious. In reviewing his serum creatinine; as mentioned, they have been ranging in the 2 to 2.5 range typically. His creatinine was 4.1 on 01/12. His hemoglobin was 8.2 and has typically been in the 9 to 10.5 range. IMPRESSION: A 67-YEAR-OLD DIABETIC WITH ACUTE KIDNEY INJURY ON ADVANCED STAGE 4 CHRONIC KIDNEY DISEASE, IN THE BACKDROP OF FLUID OVERLOAD, HYPERTENSIVE URGENCY AND CHEST PAIN. 1. Acute kidney injury. This is most likely progression of his advanced chronic diabetic kidney disease. His volume overload state may have contributed to his acute kidney injury, due to a cardiorenal dysfunction. With diuresis, there may be improved renal function. He is maintained on an ARB and he does have right renal artery stenosis and it is possible that he is intolerant to the ARB, although he has been on a long-standing. Our hope is with diuresis the renal function will improve and get back close to his baseline. Alternatively, he may have progressed and this may be closer to his new baseline. 2. Advanced chronic kidney disease. History of underlying diabetic hypertensive renal disease; looking at serologies, he had a negative serum immunofixation, which would go against underlying myeloma involvement of the kidneys. Progressive renal vascular disease would be a concern, particularly given the right renal artery stenosis on Doppler. 3. Hypervolemia. He is diuresing on diuretics. 4. Severe hypertension. This is problematic and needs to be controlled. His blood pressure medications have been up titrated. At some point, may need to discontinue his ARB. 5. Anemia. Most likely a combination of EPO and iron deficiency. Our goal is to maintain his hemoglobin in the 9 to 11 range. We will see if he is a candidate for IV iron and/or EPO. 6. Metabolic bone disease of CKD. We will check intact PTH and vitamin D25 and treat this accordingly. 7. Unfortunately, there is a high risk of him progressing to end-stage renal disease within the next 6 to 12 months. I have had discussions with him in the past and I will again about the seriousness of his kidney situation. 8. The other issue that needs to be considered is whether he has progressive renal artery stenosis of the right kidney and that causing the hypertensive urgency and progressive loss of renal function. I would recommend getting Vascular to see the patient to see whether he is a candidate for CO2 angiogram or an MRA to further evaluate the severity of his renal artery stenosis. RECOMMENDATIONS: At this time include the following, 1. Continue with aggressive diuresis. 2. Continue his current blood pressure medications and titrate up as needed to control blood pressure. 3. Obtain intact PTH and vitamin D 25 level and treat accordingly. 4. Obtain iron studies and see about IV iron and/or EPO. 5. Avoid nephrotoxins. 6. Protect his nondominant arm for future AV fistula. 7. We will follow the patient closely with the team as we sort these issues out. Addendum: It would be helpful to obtain an ultrasound of the bladder and make sure he does not have urinary retention contributing to his acute kidney injury as well. MD LYNN Ortiz/PILO / [id number]
[2023-01-15] MEDS: Insulin Lispro 100 UNIT/ML 3 ML VIAL SUBCUT (12:29)
--- NOTE | 2023-01-15 13:30 | HO.VASCPN ---
Subjective Subjective Date of Service: 01/15/23 Patient reports: no new complaints and feels better Interval history: Very pleasant 67-year-old gentleman presents for evaluation regarding renal artery stenosis a and also chronic renal insufficiency. Overall reports to be doing relatively better. His blood pressure has been quite labile but appears to be a little bit better control. At the time of my examination his last blood pressure was 125/53. He now presents for routine follow-up Physical Exam Vital Signs: Vital Signs: Last Vital Signs Temp 97.4 F 01/15/23 11:14 Pulse 62 01/15/23 11:14 Resp 20 01/15/23 11:14 BP 125/53 L 01/15/23 11:14 Pulse Ox 98 01/15/23 11:14 O2 Del Method Room Air 01/15/23 11:14 BMI result Body Mass Index 29.6 Const: General: cooperative, healthy appearing and no acute distress Orientation/consciousness: oriented to person, oriented to place and oriented to time HEENT: Head: Yes normal to inspection Neck: Carotids: no bruits Chest: Chest palpation & inspection: normal inspection of the chest Resp: Effort & Inspection: normal respiratory effort and able to speak in complete sentences Auscultation: clear to auscultation bilaterally Cardio: Rate: regular rate Heart sounds: S1 normal heart sound present and S2 normal heart sound present GI: Inspection: Yes normal to inspection Skin: Other: Left BKA well-healed General skin exam: no rashes or lesions noted Wounds: amputation site Neuro: General: oriented to person, oriented to place, oriented to time and CN's II-XI intact bilaterally Extrem: General: Yes normal to inspection, Yes full ROM and Yes no clubbing, cyanosis or edema Psych: Appearance: grossly normal and well kempt Speech and movement: Normal speech and movement present Affect: normal affect Progress Note: A&P Assessment and plan (1) Acute kidney injury superimposed on chronic kidney disease: Status: Acute Assessment and Plan: He is headed towards dialysis. I did discuss this case with the Nephrology team and will need permanent dialysis access. We will get him set up as soon as possible. Thank you for allowing us to assist in his care. If there are any questions or concerns please do not hesitate to contact us. (2) Renal artery stenosis: Status: Acute Plan On ultrasound there is concern for renal artery stenosis. It did not show up on angiogram performed in January of 2022. At the current time would like renal function to stabilize prior to any endovascular intervention. In addition we will make sure his heart failure is in control prior to any intervention. I did discuss this case with Nephrology and may be best suited to set him up as an outpatient once he is stable. He will follow up with us upon discharge. Thank you for allowing us to assist in his care. Time Spent With Patient Time: Total time managing care of this patient today ____ minutes. Procedures Date of Service Date of Service: 01/15/23 Quality Stroke Does the patient have a stroke diagnosis?: No VTE Prior VTE?: No VTE Risk Level:: Medical - moderate - high VTE Device Contraindication: Treatment Not Indicated VTE Drug Contraindication: N/A - Med Ordered
--- NOTE | 2023-01-15 14:13 | PM.DS ---
DS: Providers Provider Date of Service: 01/15/23 Date of admission: 01/13/23 01:27 EDT Primary care physician: Marline Richard MD Consults: 01/13/23 12:04 Consult to Nephrology Routine Consulting Provider: [facility] Reason for consultation: ESRD Has provider been notified: No 01/14/23 08:19 Consult to Cardiology Routine Consulting Provider: [facility] [place] [facility] Reason for consultation: Chf 01/14/23 12:09 Consult to Vascular Surgery Routine Consulting Provider: [facility] [place] [facility] Reason for consultation: LORENZO DS: Diagnosis Discharge Diagnosis (1) Acute kidney injury superimposed on chronic kidney disease: Status: Acute (2) Renal artery stenosis: Status: Acute DS: Summary Hospital Course Hospital Course: Patient is a 67 year old pleasant Pashto speaking male with past medical history of Type 2 diabetes mellitus (on Insulin), 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 He describes worsening shortness of breath over the last 3 days with associated right lower extremity swelling and pain and also elevated blood pressure and blood sugars despite being compliant with his medications. He denies any associated chest pain, orthopnea, PND, cough, fevers or chills. Initial work up done in the ED was significant for worsening renal function with BUN and Creatinine at 55 & 4.16 respectively. His Blood sugar was mildly elevated at 271 and blood pressure was also elevated at 214/75 mmHg. His hemoglobin has dropped to 8 d/dl from 10 g/dl in September 2022. He received a dose of IV Lasix in the ED following which admission was requested for further care. 67-year-old man treated for hypertensive urgency and acute congestive heart failure. Patient has had a long history hypertension, uncontrolled. Renal ultrasound in September 2022 did show renal artery stenosis. During hospitalization patient was seen by Cardiology who suggested switching Toprol for Coreg and added minoxidil which was successful in bringing his blood pressure down. Patient was treated with IV diuretics for acute on chronic diastolic heart failure with more than 2.6 L negative in no longer in acute heart failure requiring IV diuretics. Switched back to home dose of Lasix. The plan will be for patient to follow-up with vascular surgery as outpatient for possible vascular procedure to correct the renal artery stenosis, this will likely take place when patient is obviously more stable. He is followed by Nephrology and likely ventrally require dialysis but does not at this time but the recommendation would be to protect his nondominant arm for future AV fistula. Noted low vitamin D3, sent home with 78989 units x 4 weeks, should follow-up with Nephrology for further dosing instructions. Patient should also be checking his blood pressure daily and documenting to share with his provider for medication adjustments. Normocytic anemia. Above transfusion threshold. Stable H&H Time Attestation Discharge coordination time: Greater than 30 minutes Quality: Safe Use of Opioids Does Pt have an Active Cancer Diagnosis on the Problem List?: No Quality: Stroke Does the patient have a stroke diagnosis?: No Physical Exam Vital Signs: Vital Signs: Last Vital Signs Temp 97.4 F 01/15/23 11:14 Pulse 62 01/15/23 11:14 Resp 20 01/15/23 11:14 BP 125/53 L 01/15/23 11:14 Pulse Ox 98 01/15/23 11:14 O2 Del Method Room Air 01/15/23 11:14 BMI result Body Mass Index 29.6 Appearing in no acute distress head is normocephalic atraumatic eyes pupils are PERRLA sclera is anicteric mouth throat mucous membranes are intact and moist neck is supple no lymphadenopathy, no JVD noted lung sounds are clear to auscultation heart regular rate rhythm, clear S1, S2 positive bowel sounds, abdomen is soft, nontender neuro patient is alert x3, no focal deficits DS: Data Data Completed and Pending Completed studies during hospitalization [Text1]: Procedures Detachment at Left 1st Toe, Complete, Open Approach (01/24/22) Detachment at Left Foot, Partial 1st Ray, Open Approach (02/02/22) Detachment at Left Foot, Partial 2nd Ray, Open Approach (02/02/22) Detachment at Left Foot, Partial 3rd Ray, Open Approach (02/02/22) Detachment at Left Foot, Partial 4th Ray, Open Approach (02/02/22) Detachment at Left Foot, Partial 5th Ray, Open Approach (02/02/22) Detachment at Left Upper Leg, Mid, Open Approach (03/26/22) Extirpation of Matter from Left Femoral Artery, Open Approach (01/03/22) Fluoroscopy of Aorta and Bilateral Lower Extremity Arteries (01/03/22) Plain Radiography of Aorta and Bilateral Lower Extremity Arteries using Low Osmolar Contrast (01/24/22) Supplement Left Femoral Artery with Synthetic Substitute, Open Approach (01/03/22) Transfusion of Nonautologous Red Blood Cells into Peripheral Vein, Percutaneous Approach (03/26/22) Labs on day of discharge: Laboratory Results - last 24 hr 01/14/23 01/14/23 01/14/23 15:30 16:08 20:12 WBC RBC Hgb Hct MCV MCH MCHC RDW Plt Count MPV Immature Gran % (Auto) Neut % (Auto) Lymph % (Auto) [place] % (Auto) Eos % (Auto) Baso % (Auto) Lymph # (Auto) [place] # (Auto) Eos # (Auto) Baso # (Auto) Abs Immat Gran (auto) Absolute Neuts (auto) Absolute Nucleated RBC Nucleated RBC % (auto) Sodium Potassium Chloride Carbon Dioxide Anion Gap BUN Creatinine Estim Creat Clear Calc Estimated GFR POC Glucose 111 164 H Fasting Glucose Calcium Iron TIBC % Saturation Unsat Iron Binding Total Bilirubin AST ALT Alkaline Phosphatase Total Protein Albumin 25-OH Vitamin D Total Urine Color Yellow Urine Appearance Clear Urine pH 5.5 Ur Specific [place] 1.015 Urine Protein >=1000 (4+) H Urine Glucose (UA) 250 H Urine Ketones Negative Urine Blood Negative Urine Nitrite Negative Ur Leukocyte Esterase Negative Urine RBC 0-2 Urine WBC 0-5 Ur Squamous Epith Cells 0-2 Urine Bacteria None Seen Hyaline Casts 3-5 Ur Random Sodium 55.0 Ur Random Potassium 35.5 Ur Random Chloride 69.0 01/15/23 01/15/23 01/15/23 05:10 05:57 06:25 WBC 8.5 RBC 2.56 L Hgb 8.0 L Hct 24.4 L MCV 95.3 MCH 31.3 MCHC 32.8 RDW 13.1 Plt Count 235 MPV 10.3 Immature Gran % (Auto) 0.4 Neut % (Auto) 77.8 H Lymph % (Auto) 8.4 L [place] % (Auto) 10.0 Eos % (Auto) 2.9 Baso % (Auto) 0.5 Lymph # (Auto) 0.7 L [place] # (Auto) 0.9 Eos # (Auto) 0.3 Baso # (Auto) 0.0 Abs Immat Gran (auto) 0.03 Absolute Neuts (auto) 6.6 Absolute Nucleated RBC 0.000 Nucleated RBC % (auto) 0.0 Sodium 141 Potassium 4.4 Chloride 110 H Carbon Dioxide 23 Anion Gap 12 BUN 51 H Creatinine 3.98 H Estim Creat Clear Calc 20.0 Estimated GFR 15 POC Glucose 48 L* 91 Fasting Glucose 99 Calcium 8.3 L Iron 77 TIBC 193 L % Saturation 40 Unsat Iron Binding 116 Total Bilirubin 0.1 AST 21 ALT 15 Alkaline Phosphatase 78 Total Protein 6.2 L Albumin 2.3 L 25-OH Vitamin D Total 13.7 L Urine Color Urine Appearance Urine pH Ur Specific [place] Urine Protein Urine Glucose (UA) Urine Ketones Urine Blood Urine Nitrite Ur Leukocyte Esterase Urine RBC Urine WBC Ur Squamous Epith Cells Urine Bacteria Hyaline Casts Ur Random Sodium Ur Random Potassium Ur Random Chloride 01/15/23 01/15/23 07:27 11:09 WBC RBC Hgb Hct MCV MCH MCHC RDW Plt Count MPV Immature Gran % (Auto) Neut % (Auto) Lymph % (Auto) [place] % (Auto) Eos % (Auto) Baso % (Auto) Lymph # (Auto) [place] # (Auto) Eos # (Auto) Baso # (Auto) Abs Immat Gran (auto) Absolute Neuts (auto) Absolute Nucleated RBC Nucleated RBC % (auto) Sodium Potassium Chloride Carbon Dioxide Anion Gap BUN Creatinine Estim Creat Clear Calc Estimated GFR POC Glucose 72 176 H Fasting Glucose Calcium Iron TIBC % Saturation Unsat Iron Binding Total Bilirubin AST ALT Alkaline Phosphatase Total Protein Albumin 25-OH Vitamin D Total Urine Color Urine Appearance Urine pH Ur Specific [place] Urine Protein Urine Glucose (UA) Urine Ketones Urine Blood Urine Nitrite Ur Leukocyte Esterase Urine RBC Urine WBC Ur Squamous Epith Cells Urine Bacteria Hyaline Casts Ur Random Sodium Ur Random Potassium Ur Random Chloride Discharge Plan Discharge Anticipated Discharge Date/Time: 01/15/23 14:04 Patient Disposition: Home, Self-Care Discharge Diagnosis: Acute on chronic diastolic heart failure Uncontrolled hypertension Acute on chronic renal failure Referrals: Marline Richard MD [Primary Care Provider] - 1 Week Lyle Topete MD [Physician] - 1 Week Mario Modi MD [Physician] - 1 Week Discharge Medications: New carvedilol 25 mg Tablet 25 mg PO BID Qty: 60 0RF Protocol: Hold for SBP/HR < HOLD for SBP < : 90 HOLD for HR < : 60 minoxidil 2.5 mg Tablet 2.5 mg PO BID Qty: 60 0RF cholecalciferol (vitamin D3) 1,250 mcg (50,000 unit) capsule 50,000 unit PO QWEEK 30 Days Qty: 4 0RF Continued losartan 50 mg tablet 100 mg PO QAM furosemide 40 mg tablet 40 mg PO BID atorvastatin 80 mg tablet 80 mg PO BEDTIME glipizide 10 mg tablet 10 mg PO BID isosorbide mononitrate 60 mg tablet extended release 24 hr 60 mg PO QAM tamsulosin 0.4 mg capsule 0.4 mg PO QPM amlodipine 10 mg tablet 10 mg PO QPM docusate sodium 100 mg capsule 100 mg PO BEDTIME gabapentin 300 mg capsule 300 mg PO QAM aspirin 81 mg tablet,chewable 1 tab PO QAM hydralazine 50 mg tablet 100 mg PO TID albuterol sulfate [Ventolin HFA] 90 mcg/actuation HFA aerosol inhaler 2 puff INHALATION Q4H PRN (Reason: Wheezing) fluticasone propionate 50 mcg/actuation spray,suspension 2 spray intranasal QAM PRN (Reason: Congestion) ezetimibe 10 mg tablet 10 mg PO QAM Januvia 100 mg tablet 100 mg PO QAM insulin degludec [Tresiba FlexTouch U-100] 100 unit/mL (3 mL) insulin pen 25 unit subcut DAILY (DME) FreeStyle Daniel 2 Sensor Kit MISCELLANEOUS Q2W (DME) FreeStyle Daniel 2 [place] Misc MISCELLANEOUS QAM sertraline 50 mg tablet 50 mg PO DAILY nabumetone 500 mg tablet 500 mg PO BID Discontinued metoprolol succinate 100 mg tablet extended release 24 hr 100 mg PO QAM Discharge Orders: Discharge Order (Routine); Ordered 01/15/23 Ordered By: Erin Self Diet: Advance to usual diet Activity on Discharge: As tolerated Stand Alone Forms: Patient Portal Discharge page Care Plan Goals: You have been started on new medications including Coreg 25 mg twice daily, minoxidil 2.5 mg daily Check blood pressure daily and document Follow-up with operations coordinator for further dosing of your vitamin D3 Health Concerns: Acute on chronic diastolic heart failure Uncontrolled hypertension Acute on chronic renal failure Plan of Treatment: Follow-up with primary care provider as needed Follow-up with vascular surgeon for possible vascular procedure secondary to your renal artery stenosis Take all medications as prescribed Assessment: See discharge summary
--- NOTE | 2023-01-15 14:45 | MHC.CM.PN ---
pt has been medically cleared for DC. His girlfriend is going to pick him up, he will return home with prior services.
[2023-01-15 15:04] VITALS: BP 155/68; PULSE 61; RESP 16; TEMP 36.3; O2SAT 98
[2023-01-15 15:28] VITALS: RESP 16
[2023-01-16 18:13] LABS: PTHI 178 pg/mL (16-77)
== END 2023-01-15 16:04 | disposition home or self-care (01) | DRG 291 ==
LOC: HO.ED 01-13 00:35 → HO.EDOVER 01-13 01:52 → HO.IMC 01-13 07:35
PROVIDERS: Hospitalist; Internal Medicine Nephrology; Admitting Provider Internal Medicine; Emergency Provider Internal Medicine; PCP General Practice; Visit Provider Nurse Practitioner Acute Care
DX: I13.0 Hypertensive heart and chronic kidney disease with heart failure and stage 1 through stage 4 chronic kidney disease, or unspecified chronic kidney disease (principal); I50.33 Acute on chronic diastolic (congestive) heart failure; N17.9 Acute kidney failure, unspecified; N25.0 Renal osteodystrophy; E11.22 Type 2 diabetes mellitus with diabetic chronic kidney disease; N18.32 Chronic kidney disease, stage 3b; I70.1 Atherosclerosis of renal artery; D63.1 Anemia in chronic kidney disease; Z89.512 Acquired absence of left leg below knee; Z91.148 Patient's other noncompliance with medication regimen for other reason; Z79.4 Long term (current) use of insulin; Z79.84 Long term (current) use of oral hypoglycemic drugs; Z79.899 Other long term (current) drug therapy
CPT/HCPCS: 36415; 71045; 80048; 80053; 81001; 81003; 82306; 82436; 82947; 83540; 83880; 83970; 84133; 84300; 84484; 85025; 85027; 93005; 99285; J0360; J1643; J1940

== ENCOUNTER → 2023-01-13 01:27 | Outpatient (BNV) | payer OTHER, SELFPAY | PROVIDERS: Admitting Provider Internal Medicine; Emergency Provider Internal Medicine; PCP General Practice; Visit Provider Surgery Vascular Surgery | DX: N17.9 Acute kidney failure, unspecified (principal); N18.9 Chronic kidney disease, unspecified; I70.1 Atherosclerosis of renal artery | CPT/HCPCS: 99222 ==

== ENCOUNTER → 2023-01-13 01:27 | Outpatient (BNV) | payer OTHER, SELFPAY | PROVIDERS: Admitting Provider Internal Medicine; Emergency Provider Internal Medicine; PCP General Practice; Visit Provider Internal Medicine Cardiovascular Disease | DX: I10 Essential (primary) hypertension (principal); I50.33 Acute on chronic diastolic (congestive) heart failure | CPT/HCPCS: 99222; 99233 ==

== ENCOUNTER → 2023-01-13 01:27 | Outpatient (BNV) | payer OTHER, SELFPAY | PROVIDERS: Admitting Provider Internal Medicine; Emergency Provider Internal Medicine; PCP General Practice; Visit Provider Hospitalist | DX: I50.33 Acute on chronic diastolic (congestive) heart failure (principal); N17.9 Acute kidney failure, unspecified; N18.32 Chronic kidney disease, stage 3b | CPT/HCPCS: 99223; 99232; 99239; 99499 ==

== ENCOUNTER 2023-01-17 14:00 | Outpatient (AMB) | payer OTHER, SELFPAY ==
--- NOTE | 2023-01-17 14:01 | A.OFFVIS_ITS ---
Intake Vital Signs 01/17/23 14:08 BP 122/60 Blood Pressure Location Lt brachial Position Sitting Intake Visit Reasons: Hospital Follow up renal artery stenosis Intake Note: pt add-on for hospital follow up, discharged 01/15/23. Pt states he is feeling better since discharge Accompanied by: Self / Same As Patient Allergies metformin Adverse Reaction (Verified 01/17/23 14:04) Unknown HPI Hospital Follow up renal artery stenosis HPI Details Very pleasant 67-year-old gentleman presents for hospital follow-up evaluation regarding renal artery stenosis. He is well known to us for peripheral vascular disease history and amputations. He does have a history of chronic renal insufficiency. He was worked up in the hospital for labile blood pressures and he has been on several medications with difficulty controlling his blood pressure. On ultrasound he was discovered to have renal artery stenosis. He now presents for follow-up evaluation regarding this. At the time of our examination his left arm blood pressure was 122/60 PFSH Medical History Erectile dysfunction CKD (chronic kidney disease) stage 3, GFR 30-59 ml/min (HFpEF) heart failure with preserved ejection fraction Osteomyelitis CKD stage 3 due to type 2 diabetes mellitus LIVE (iron deficiency anemia) Hyperlipidemia associated with type 2 diabetes mellitus Type 2 diabetes mellitus Kidney disease High cholesterol HTN (hypertension) Diabetes PAD (peripheral artery disease) Surgical History Status post transmetatarsal amputation of left foot Hx of amputation History of amputation of right forefoot H/O shoulder surgery Family History Other No family history of coronary artery disease Social History Household Members: None Housing: Apartment Do you presently have visiting nurse or other home services: Yes (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) Alcohol intake: current Alcohol intake frequency: a few times a month Alcohol type: beer Patient Tobacco Use Status: Never used Tobacco Tobacco use type: Cigarette Substance Use Type: Crack/Cocaine Advance Directives Date on File: 02/02/22 service: No Current occupational status: retired Review of Systems Const All systems reviewed & are unremarkable except as noted in HPI and below Reports no additional complaints ENT Reports Normal hearing present Card Denies chest pain, Denies chest pain at rest, Denies chest pain with activity and Denies pedal edema Resp Denies cough GI Denies abdominal pain Musc Denies abnormal gait, Denies muscle cramps and Denies radiating pain into limb Skin/Breast Denies skin ulcer and Denies wounds Neuro Reports Normal hearing present and Denies abnormal gait Psych Reports no additional complaints Physical Exam Vital Signs: Last Vital Signs BP 122/60 01/17/23 14:08 Const General: cooperative, healthy appearing and comfortable Orientation/consciousness: oriented to person, oriented to place and oriented to time HEENT Head: Yes normal to inspection Neck Neck: Yes normal visual inspection Carotids: no bruits Chest Chest palpation & inspection: normal inspection of the chest Resp Effort & Inspection: normal respiratory effort and able to speak in complete sentences Auscultation: clear to auscultation bilaterally, no crackles, no rales, no rhonchi and no wheezes Cardio Rate: regular rate Rhythm: regular rhythm Heart sounds: S1 normal heart sound present and S2 normal heart sound present Bruits: no carotid bruits Peripheral pulses: Peripheral pulses 2+ throughout GI Inspection: Yes normal to inspection Skin Wounds: amputation site (Well-healed) Hair: normal Neuro General: oriented to person, oriented to place and oriented to time Cranial nerves: Yes CN's II-XII intact bilaterally and Yes Normal hearing present Cognition (Neuro): normal cognition Motor exam (neuro): 5/5 motor strength present throughout Extrem Other: venous exam: No significant superficial varicosities or spider t elangiectasias, minimal edema General: No clubbing, No cyanosis and No edema Psych Appearance: grossly normal Mental Status: mental status grossly normal Speech and movement: Normal speech and movement present Results Reviewed Results Reviewed: Renal artery ultrasound dated 09/28/2022 demonstrates right-sided RA ratio of 3.25 indicative of stenosis. Angiogram dated 01/04/2020 to demonstrates right-sided was within normal limits left side did appear diminutive. Assessment & Plan Assessment & Plan (1) Renal artery stenosis: Code(s): I70.1 - Atherosclerosis of renal artery Plan: In short patient has concern of renal artery stenosis. He does have labile blood pressure. He will require aortic angiogram with potential renal artery plasty and/or stent. Risks benefits complications were discussed in detail with the patient patient understood and consented. We will schedule him as soon as possible. (2) CKD stage 3 due to type 2 diabetes mellitus: Code(s): E11.22 - Type 2 diabetes mellitus with diabetic chronic kidney disease; N18.30 - Chronic kidney disease, stage 3 unspecified Plan: Patient has chronic renal insufficiency. Will need permanent dialysis access. He is [id number] and will protect left arm. Coding Level of Care Code Est Pt Level 4 (12139) Diagnoses Renal artery stenosis I70.1 CKD stage 3 due to type 2 diabetes mellitus E11.22; N18.30
[2023-01-17 14:08] VITALS: BP 122/60
== END 2023-01-17 14:37 | disposition home or self-care (01) ==
PROVIDERS: PCP General Practice; Visit Provider Surgery Vascular Surgery
DX: I70.1 Atherosclerosis of renal artery (principal); E11.22 Type 2 diabetes mellitus with diabetic chronic kidney disease; N18.30 Chronic kidney disease, stage 3 unspecified
CPT/HCPCS: 99214

== ENCOUNTER → 2023-01-17 14:00 | Outpatient (BNVA) | payer OTHER, SELFPAY | PROVIDERS: PCP General Practice; Visit Provider Surgery Vascular Surgery | DX: I70.1 Atherosclerosis of renal artery (principal); I73.9 Peripheral vascular disease, unspecified; E11.22 Type 2 diabetes mellitus with diabetic chronic kidney disease; E11.65 Type 2 diabetes mellitus with hyperglycemia; E11.69 Type 2 diabetes mellitus with other specified complication; M86.9 Osteomyelitis, unspecified; I13.0 Hypertensive heart and chronic kidney disease with heart failure and stage 1 through stage 4 chronic kidney disease, or unspecified chronic kidney disease; I50.30 Unspecified diastolic (congestive) heart failure; N18.30 Chronic kidney disease, stage 3 unspecified; Z89.432 Acquired absence of left foot | CPT/HCPCS: 99212 ==

== ENCOUNTER 2023-01-21 07:07 | Inpatient (IN) | payer OTHER, SELFPAY ==
[2023-01-21] VITALS (12 sets, daily range): BP systolic 95–187; BP diastolic 43–75; PULSE 52–60; RESP 14–20; TEMP 36.4–36.9; O2SAT 94–99; BMI 33.5
--- NOTE | 2023-01-21 | ECG_ITS ---
Test Reason : HIGH POTASSIUM Blood Pressure : / mmHG Vent. Rate : 059 BPM Atrial Rate : 059 BPM P-R Int : 296 ms QRS Dur : 098 ms QT Int : 436 ms P-R-T Axes : 069 035 050 degrees QTc Int : 431 ms Sinus bradycardia with 1st degree A-V block Anterior infarct (cited on or before 21-JAN-2023) Abnormal ECG When compared with ECG of 21-JAN-2023 07:21, No significant change was found Referred By: Dino Addison Electronically Signed By:SWEETIE CASTRO MD
--- NOTE | ~2023-01-21 | XR_ITS ---
EXAMINATION: XR CHEST CLINICAL INFORMATION: Shortness of breath. COMPARISON: Chest done on 01/30/2023. TECHNIQUE: Frontal view of the chest was obtained. FINDINGS: Asymmetric low lung volume and flattening of the right hemidiaphragm and nonspecific airspace disease at right lung base appears similar to the study done yesterday. Mild diffuse prominent interstitial lung markings are present similar to prior study. Right-sided central catheter tip is seen at the cavoatrial junction, unchanged. The cardiomediastinal silhouette is normal limit. Overall, no significant change. XR/XR chest 1V IMPRESSION: Stable radiographic appearance of the chest, unchanged since 01/30/2023.
--- NOTE | ~2023-01-21 | CT_ITS ---
History: Patient with persistent right upper quadrant pain and suspected acalculous cholecystitis. HIDA scan negative, but clinical suspicion remains and patient presents for fluoroscopy and ultrasound-guided placement of a cholecystostomy tube. Procedure performed: Ultrasound and fluoroscopic guided placement of a cholecystostomy tube Physician: Lakeisha Rivas MD FSIR Anesthesia: IV fentanyl 25 mcg; 10 mL 1% lidocaine Specimen: 5 mL of bilious fluid Drain: 8 Maltese pigtail to gravity Estimated blood loss: Minimal Complications: None Procedure in detail: Informed and written consent was obtained. The patient was positioned supine on the table. Ultrasound showed partial distention of the gallbladder. 1% lidocaine was injected subcutaneously and extended to the hepatic capsule at the planned site. A small incision was made in the skin with a #11 blade. Through the incision and under ultrasound guidance with permanent recordings and direct visualization of needle penetration of the gallbladder, the gallbladder was cannulated with a Yueh needle catheter. This was intentionally passed through approximately 2 cm of hepatic parenchyma before reaching the gallbladder. Through the Yueh catheter, a Palmer wire was coiled in the gallbladder over which serial dilatation was performed until an 8 Maltese pigtail catheter could be placed. A return of bile was obtained and a sample sent to the laboratory for analysis. A contrast injection confirmed the outline of the gallbladder. The cystic duct was not visualized. The tube was stitched at the skin and connected to gravity drainage. An overlying sterile dressing was placed. The patient tolerated the procedure well. Summary: Successful ultrasound and fluoroscopic guided placement of a cholecystostomy tube.
--- NOTE | ~2023-01-21 | US_ITS ---
EXAMINATION: US ABDOMEN LIMITED CLINICAL INFORMATION: Evaluation of gallbladder.. COMPARISON: HIDA scan 01/22/2023 TECHNIQUE: Limited sonography of the gallbladder FINDINGS: Limited study only of the gallbladder. Gallbladder wall thickness 0.49 cm. No pericholecystic fluid. No gallstones. US/US abdomen limited Impression: No gallstones are observed.
--- NOTE | ~2023-01-21 | CT_ITS ---
EXAMINATION: CT HEAD WITHOUT CONTRAST (STROKE PROTOCOL) CLINICAL INFORMATION: Stroke protocol. Left upper extremity weakness COMPARISON: CT 09/15/2010 TECHNIQUE: Contiguous axial imaging was performed from the skull base to vertex without intravenous administration of contrast. This CT examination was performed using dose optimization techniques as appropriate, variously including the following: *Automated exposure control *Adjustment of mA and/or kV according to patient size (this includes techniques or standardized protocols for targeted exams where dose is matched to indication/reason for exam; i.e. extremities or head) *Use of iterative reconstruction technique DLP: 851 mGy-cm FINDINGS: No intra-axial or extra-axial hemorrhage. There is a small right frontoparietal subdural hygroma, up to 4 mm in thickness, of indeterminate age. This is new since 2010. No acute territorial infarct. Ventricles and sulci appear normal. Preservation of lawrence-white matter differentiation. No mass, mass effect, or midline shift. No fracture. The mastoid air cells and visualized paranasal sinuses are clear. CT/CT head for stroke IMPRESSION: No acute intracranial pathology. Right subdural hygroma. This critical result was discussed with Dr. Johnston at 0746 hours on 01/21/2023. It was ascertained that the content and urgency of the report was understood at the time of direct communication.
--- NOTE | ~2023-01-21 | IR_ITS ---
CLINICAL HISTORY: Patient requires temporary access for hemodialysis. PROCEDURES: 1. Real-time ultrasound-guided access into the right internal jugular vein after documentation of selected vessel patency, and permanent imaging storing in the patient record. 2. Placement of a 12.5 fr 20 cm non-tunneled, dual-lumen hemodialysis catheter. Clinician: Yuri Sterling PA-C MEDICATIONS: -Lidocaine 1% 10 mL SQ. -Antibiotics: Ancef -For additional details, please see nursing flowsheet. COMPLICATIONS: None. ESTIMATED BLOOD LOSS: <5 ml SPECIMENS: None FLUOROSCOPY TIME: 2.2 min PROCEDURE NOTE: The procedure, risks, benefits, and alternatives were carefully explained to patient, and written informed consent was obtained. The patient was placed supine on the fluoroscopy table. A timeout was performed. The right neck was prepped and draped in usual sterile fashion. Local anesthesia was administered to the access site with lidocaine. Under ultrasound guidance, the right internal jugular vein was accessed with a 5 Fr micropuncture set. A 0.035 in wire was advanced to the IVC. Sequential dilators were advanced over the wire. A 12.5 Turkmen 20 cm non-tunneled dialysis catheter was advanced over the wire into satisfactory position, with the tip in the cavoatrial junction. The wire was removed. A permanent fluoroscopic image of the chest was saved to PACS. The catheter was tested, flushed, and sutured to the skin. The catheter ports were packed with heparin per routine protocol. The patient was stable after the procedure and was transferred back to the floor. FINDINGS: 1. Patent right internal jugular vein. 2. Placement of a non-tunneled, dual-lumen hemodialysis catheter as above. 3. Catheter flushes and aspirates very well with a 10 mL syringe. No pneumothorax. IR/IR us guide venous access IMPRESSION: Placement of a non-tunneled hemodialysis catheter in the right internal jugular vein. PLAN: -The catheter may be used immediately. This procedure was performed by Yuri Sterling PA-C, and directly supervised by Dr. Graham.
--- NOTE | ~2023-01-21 | XR_ITS ---
EXAMINATION: PORTABLE CHEST 1 VIEW CLINICAL INFORMATION: sob ,rhonchi. COMPARISON: 09/11/2022. TECHNIQUE: Portable frontal view of the chest was obtained. FINDINGS: The lungs are mildly hypoexpanded. Increased bibasilar markings are seen now obscuring the left hemidiaphragm. There is central vascular prominence and indistinctness to the vessels with mild cephalization. Right IJ centimeters catheter tip near the expected cavoatrial junction. Cardiac silhouette is prominent but unchanged. Bone anchors seen in the left humeral head. XR/XR chest 1V IMPRESSION: Although hypoexpanded, there is central vascular prominence and indistinctness to the vessels suggesting mild pulmonary edema. Increased bibasilar markings may reflect component of atelectasis.
--- NOTE | ~2023-01-21 | US_ITS ---
EXAMINATION: US ABDOMEN LIMITED CLINICAL INFORMATION: Right upper quadrant pain. COMPARISON: 01/21/2023 TECHNIQUE: Real-time targeted imaging of the right upper quadrant abdominal viscera. FINDINGS: GALLBLADDER: Gallbladder wall thickening and gallbladder wall edema. Positive sonographic Ford's sign. COMMON BILE DUCT: Normal in caliber measuring 0.3 cm in diameter. FREE FLUID: Trace perihepatic free fluid. US/US abdomen limited IMPRESSION: Findings suggestive of acute inflammation of the gallbladder. No gallstones are visible. This may represent acute acalculous cholecystitis. Consider surgical consultation.
--- NOTE | ~2023-01-21 | IR_ITS ---
CLINICAL HISTORY: Patient requires temporary access for hemodialysis. PROCEDURES: 1. Real-time ultrasound-guided access into the right internal jugular vein after documentation of selected vessel patency, and permanent imaging storing in the patient record. 2. Placement of a 12.5 fr 20 cm non-tunneled, dual-lumen hemodialysis catheter. Clinician: Yuri Sterling PA-C MEDICATIONS: -Lidocaine 1% 10 mL SQ. -Antibiotics: Ancef -For additional details, please see nursing flowsheet. COMPLICATIONS: None. ESTIMATED BLOOD LOSS: <5 ml SPECIMENS: None FLUOROSCOPY TIME: 2.2 min PROCEDURE NOTE: The procedure, risks, benefits, and alternatives were carefully explained to patient, and written informed consent was obtained. The patient was placed supine on the fluoroscopy table. A timeout was performed. The right neck was prepped and draped in usual sterile fashion. Local anesthesia was administered to the access site with lidocaine. Under ultrasound guidance, the right internal jugular vein was accessed with a 5 Fr micropuncture set. A 0.035 in wire was advanced to the IVC. Sequential dilators were advanced over the wire. A 12.5 Spanish 20 cm non-tunneled dialysis catheter was advanced over the wire into satisfactory position, with the tip in the cavoatrial junction. The wire was removed. A permanent fluoroscopic image of the chest was saved to PACS. The catheter was tested, flushed, and sutured to the skin. The catheter ports were packed with heparin per routine protocol. The patient was stable after the procedure and was transferred back to the floor. FINDINGS: 1. Patent right internal jugular vein. 2. Placement of a non-tunneled, dual-lumen hemodialysis catheter as above. 3. Catheter flushes and aspirates very well with a 10 mL syringe. No pneumothorax. IR/IR cvc insert non tunnel IMPRESSION: Placement of a non-tunneled hemodialysis catheter in the right internal jugular vein. PLAN: -The catheter may be used immediately. This procedure was performed by Yuri Sterling PA-C, and directly supervised by Dr. Graham.
--- NOTE | ~2023-01-21 | XR_ITS ---
EXAMINATION: XR CHEST CLINICAL INFORMATION: Shortness of breath. COMPARISON: Prior chest radiographs, most recently 01/26/2023. TECHNIQUE: Frontal view of the chest was obtained. FINDINGS: The heart, great vessels and mediastinum are stable. There is mild pulmonary vascular congestion, without overt pulmonary edema. There is a small right pleural effusion. No pneumothorax is seen. There is no acute osseous abnormality. There is multi-level thoracolumbar spondylosis. Orthopedic anchors are applied to the proximal left humerus. A right internal jugular hemodialysis access catheter is noted. XR/XR chest 1V IMPRESSION: 1. There is mild pulmonary vascular congestion, without overt congestive heart failure. 2. There is mild pulmonary vascular congestion, without overt pulmonary edema. 3. There is a small right pleural effusion.
--- NOTE | ~2023-01-21 | XR_ITS ---
EXAMINATION: XR CHEST CLINICAL INFORMATION: Shortness of breath. COMPARISON: 01/24/2023. TECHNIQUE: Frontal view of the chest was obtained. FINDINGS: The cardiomediastinal silhouette is stable. A central catheter is noted in a stable position. There appears to be pulmonary vascular congestion and perihilar increased markings. There are faint lower lung field opacities greater on the right with some apparent component of layering. The bony structures and soft tissues are unremarkable. XR/XR chest 1V IMPRESSION: There is pulmonary vascular congestion and mild perihilar increased markings. Consider fluid overload and/or developing congestive heart failure with early edema. Faint bilateral lower lung field opacities greater on the right with some apparent layering components. Finding suggests small to moderate pleural effusions with atelectasis and/or infiltrate. Similar findings were present previously with some progression on the right.
--- NOTE | ~2023-01-21 | NM_ITS ---
EXAMINATION: BILIARY TRACT IMAGING STUDY WITH CCK CLINICAL INFORMATION: Right upper quadrant abdominal pain. Suspected acute cholecystitis.. COMPARISON: Abdominal ultrasound done on 01/21/2023.. TECHNIQUE: Serial gamma scintillation camera images were obtained over the abdomen for a total observation period of 60 minutes following the intravenous administration of 4.2 mCi Tc-99m mebrofenin. FINDINGS: There is good concentration of activity in the liver by 5 minutes post injection. Biliary activity is visualized by 10 minutes. The gallbladder is well visualized by 20 minutes. Small bowel is well visualized by 20 minutes. At 60 minutes post radiopharmaceutical injection, a 30-minute infusion of 2.0 micrograms Sincalide was then begun and an additional 30 minutes of images were obtained. There is good emptying of the gallbladder. By the end of the study there is good clearance of activity from the liver and visualization of diffuse small bowel activity. The calculated gallbladder ejection fraction is 67% (normal gallbladder ejection fraction is greater than 35%). NM/NM hepatobiliary w pharm IMPRESSION: Visualization of the gallbladder is evidence of a patent cystic duct and strong evidence against the diagnosis of acute cholecystitis. The common bile duct is patent. Gallbladder emptying and ejection fraction are normal. Liver function appears normal.
--- NOTE | ~2023-01-21 | CT_ITS ---
EXAMINATION: CT CHEST, ABDOMEN AND PELVIS WITH CONTRAST CLINICAL INFORMATION: Abdominal distention. Cough. Weakness. Hypotension. COMPARISON: 04/27/2019 and 08/19/2018 TECHNIQUE: Multidetector volumetric imaging was performed of the chest, abdomen and pelvis following administration of 100 mL Omnipaque 300 intravenous contrast. Oral contrast was administered. Sagittal and coronal reformatted images were obtained on the technologist's workstation. This CT examination was performed using dose optimization techniques as appropriate, variously including the following: *Automated exposure control *Adjustment of mA and/or kV according to patient size (this includes techniques or standardized protocols for targeted exams where dose is matched to indication/reason for exam; i.e. extremities or head) *Use of iterative reconstruction technique DLP: 1813.91 mGy-cm FINDINGS: CHEST: Motion artifact technically degrades image quality. CHEST WALL: Unremarkable. AXILLA: No lymphadenopathy. MEDIASTINUM: Mild cardiomegaly. Numerous subcentimeter mediastinal lymph nodes are appreciated and unchanged relative to 08/19/2018. Great vessels are of normal caliber. No hilar lymphadenopathy. No pericardial effusion. CORONARY ARTERY CALCIFICATION: Moderate. PLEURA: Moderate right pleural effusion. Small left pleural effusion. LUNGS: Mild centrilobular and paraseptal emphysema. 4 mm nodule left upper lobe on image 19 of series 6. Central airways are patent. ABDOMEN AND PELVIS: Motion artifact technically degrades image quality. ABDOMINAL AND PELVIC WALL: Subcutaneous edema. LIVER AND BILIARY TREE: The noncontrast liver is normal in size and contour. No biliary duct Small perihepatic free fluid. GALLBLADDER: Marked gallbladder wall thickening and gallbladder wall edema. PANCREAS: Unremarkable. SPLEEN: Unremarkable. ADRENAL GLANDS: Unremarkable. KIDNEYS AND URETERS: Nonspecific perinephric stranding. No hydronephrosis. GASTROINTESTINAL TRACT: No small bowel obstruction. VASCULAR: Normal caliber abdominal aorta. LYMPH NODES: No bulky abdominal or pelvic lymphadenopathy. FREE FLUID: No free fluid. BLADDER: Wall thickening despite underdistention. PELVIC VISCERA: Unremarkable. OSSEOUS STRUCTURES: No destructive bone lesions. CT/CT abdomen pelvis wo IV con IMPRESSION: Marked gallbladder wall thickening and gallbladder wall edema. Trace perihepatic free fluid. Correlation should be made with right upper quadrant ultrasound. Wall thickening of the urinary bladder despite underdistention. Advise correlation with urinalysis. Moderate right pleural effusion. Small left pleural effusion. 4 mm left upper lobe pulmonary nodule. Follow-up chest CT in 12 months is advised.
--- NOTE | 2023-01-21 07:14 | ED_ITS ---
HPI - Weakness General Chief complaint: Weakness Stated complaint: DIZZY,TROUBLESEEING,SLOW TO RESPOND PER EMS Time Seen by Provider: 01/21/23 07:08 Source: patient, EMS, old records reviewed and doctor of podiatry Mode of arrival: EMS Limitations: other (poor historian) History of Present Illness HPI Narrative: 67 yo male with PMH of DM s/p L BKA and R TMA, CKD, HTN, HLD, PAD, anemia, dCHF, uncontrolled HTN with recent admission here 01/13-01/15 for keya on CKD and dx with renal artery stenosis as well as CHF requiring IV diuretics (2.6L negative). He was also started on carvedilol 25mg PO BID and minoxidil 2.5mg PO BID. His Toprol 100mg was held. He returns to the ED today with c/o going to bed at 10pm feeling fine. He notes he woke up at 5am is scheduled for procedure related to his LORENZO. When he woke up he felt weak, lightheaded, his vision is blurry in both eyes and he has pain in his stomach. He has also had a productive cough but no fevers for the past few days. He denies CP/SOB. He is a poor historian right now. He notes his symptoms were present upon waking. Family called 911 for him. MD Complaint: generalized weakness Onset (ago): unknown (woke up with symptoms went to bed at 10pm) Duration: constant Location: generalized Migration: none Severity: moderate Quality: dull Relieving factors: none Exacerbating factors: other (he notes symptoms worse when he tries to move or get up) Context: recent illness Associated symptoms: loss of appetite and other (abdominal pain, dizziness) Related Data Home Medications Medication Instructions Recorded Confirmed sertraline 50 mg tablet 50 mg PO DAILY 04/27/21 01/13/23 nabumetone 500 mg tablet 500 mg PO BID 07/17/22 01/13/23 albuterol sulfate 90 mcg/actuation 2 puff inhalation Q4H PRN Wheezing 01/13/23 01/13/23 aerosol inhaler (Ventolin HFA) amlodipine 10 mg tablet 10 mg PO QPM 01/13/23 01/13/23 aspirin 81 mg chewable tablet 1 tab PO QAM 01/13/23 01/13/23 atorvastatin 80 mg tablet 80 mg PO BEDTIME 01/13/23 01/13/23 docusate sodium 100 mg capsule 100 mg PO BEDTIME 01/13/23 01/13/23 ezetimibe 10 mg tablet 10 mg PO QAM 01/13/23 01/13/23 flash glucose scanning reader 01/13/23 01/13/23 (FreeStyle Daniel 2 [place]) flash glucose sensor (FreeStyle 01/13/23 01/13/23 Daniel 2 Sensor kit) fluticasone propionate 50 2 spray intranasal QAM PRN 01/13/23 01/13/23 mcg/actuation nasal Congestion spray,suspension furosemide 40 mg tablet 40 mg PO BID 01/13/23 01/13/23 gabapentin 300 mg capsule 300 mg PO QAM 01/13/23 01/13/23 glipizide 10 mg tablet 10 mg PO BID 01/13/23 01/13/23 hydralazine 50 mg tablet 100 mg PO TID 01/13/23 01/13/23 insulin degludec 100 unit/mL (3 25 unit subcut DAILY 01/13/23 01/13/23 mL) subcutaneous pen ([employer] FlexTouch U-100 insulin) isosorbide mononitrate 60 mg 60 mg PO QAM 01/13/23 01/13/23 tablet,extended release 24 hr losartan 50 mg tablet 100 mg PO QAM 01/13/23 01/13/23 sitagliptin phosphate 100 mg 100 mg PO QAM 01/13/23 01/13/23 tablet (Januvia) tamsulosin 0.4 mg capsule 0.4 mg PO QPM 01/13/23 01/13/23 Previous Rx's Medication Instructions Recorded carvedilol 25 mg tablet 25 mg PO BID #60 tabs 01/15/23 cholecalciferol (vitamin D3) 1,250 50,000 unit PO QWEEK 1 month #4 01/15/23 mcg (50,000 unit) capsule caps minoxidil 2.5 mg tablet 2.5 mg PO BID #60 tabs 01/15/23 Allergies Allergy/AdvReac Type Severity Reaction Status Date / Time metformin AdvReac Unknown Verified 01/17/23 14:04 Review of Systems 2 Review of Systems: Constitutional : No Fever, No Chills, No Fatigue ENT/Mouth : No sore throat, No Rhinorrhea Eyes: No Eye Pain, No Swelling, No Redness, pos blurred vision Cardiovascular : No Chest Pain, No SOB, No Dyspnea on Exertion Respiratory : pos Cough, No Sputum Gastrointestinal : No Nausea, No Vomiting, No Diarrhea, pos abdominal Pain Genitourinary : No Dysuria, No Urinary Frequency, No Hematuria, Musculoskeletal : No joint pain, No Myalgias, No Joint Swelling Skin : No Skin Lesions, No rash Neuro : No Weakness, No Numbness, pos Dizziness, positive Headache Psych : No Anxiety/Panic, No Depression All other systems reviewed and are negative [facility] Past Medical History Attestation statement: The following information was validated with the patient. Source: old records reviewed Medical History Erectile dysfunction CKD (chronic kidney disease) stage 3, GFR 30-59 ml/min (HFpEF) heart failure with preserved ejection fraction Osteomyelitis CKD stage 3 due to type 2 diabetes mellitus LIVE (iron deficiency anemia) Hyperlipidemia associated with type 2 diabetes mellitus Type 2 diabetes mellitus Kidney disease High cholesterol HTN (hypertension) Diabetes PAD (peripheral artery disease) Surgical History Status post transmetatarsal amputation of left foot Hx of amputation History of amputation of right forefoot H/O shoulder surgery Family History Family History Other No family history of coronary artery disease Social History Social History Household Members: None Housing: Apartment Do you presently have visiting nurse or other home services: Yes (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) Alcohol intake: current Alcohol intake frequency: a few times a month Alcohol type: beer Patient Tobacco Use Status: Never used Tobacco Tobacco use type: Cigarette Smoked in Last 30 Days: No Use of substances other than those prescribed or required for medical reasons: No Substance Use Type: Crack/Cocaine Advance Directives: Yes Advance Directives on File: Yes Advance Directives Date on File: 02/02/22 service: No Current occupational status: retired Physical Exam 2 Vital Signs: Vital Signs: Last Vital Signs Temp 97.8 F 01/21/23 07:16 Pulse 55 01/21/23 10:14 Resp 18 01/21/23 10:14 BP 102/46 L 01/21/23 09:13 Pulse Ox 94 01/21/23 08:43 O2 Del Method Room Air 01/21/23 08:43 BMI result Body Mass Index 33.5 Appearance: Appears weak and tired. Oriented X3. Mild acute distress. Eyes: Pupils equal, round and reactive to light. ENT: Pharynx normal. Neck: Normal inspection. Neck supple. CVS: Normal heart rate and rhythm. Pulses normal. Respiratory: No respiratory distress. Breath sounds diminished at bases with coarse cough Abdomen: distended with diffuse ttp more localized to RUQ but no rebound Skin: Skin warm and dry. very pale skin color. Extremities: No lower extremity edema. Neuro: Oriented X 3. he has EOM intact, can read fingers with both eyes but states they appear blurry but can see them, denies visual field cut offs. No sensory deficit LUE 4/5 weakness in destaticizer feeder and biceps. No facial droop. . NIH Stroke Scale Internal: Initial- Upon Arrival Level of Consciousness: Alert Level of Consciousness Questions: Answers both questions correctly Level of Consciousness Commands: Performs both tasks correctly Best Gaze: Normal Visual: No visual loss Facial Palsy: Normal Motor Arm (Right): No drift Motor Arm (Left): Drift Motor Leg (Right): No drift Motor Leg (Left): No drift Limb Ataxia: Absent Sensory: Normal Best Language: No aphasia Dysarthia: Normal Extinction and Inattention: No abnormality Score: 1 Course Course Course Narrative: patient did take his BP medications this AM but does not think he is taking is toprol as well since they canceled it. Reevaluation(s) Reevaluation #1: hemoglobin 7.2 but not at threshold to transfuse - type and screen is in Reevaluation #2: BP is trending up. has RUQ pain now on exam - will obtain RUQ US to evaluate GB repeat trop and CBC pending for 10am. albumin infusing, IV K medications and lokelma ordered IV flagyl ordered. Reevaluation #3: H/H stable. trop trend flat Medications Administered Discontinued Medications Generic Name Dose Route Start Last Admin Trade Name Freq PRN Reason Stop Dose Admin Albuterol Sulfate 2.5 mg 01/21/23 10:05 01/21/23 10:13 Albuterol Sulfate (0.083%) 2.5 Mg/3 Ml Vial.Neb INHALE 01/21/23 10:06 2.5 mg ONCE ONE Administration Dextrose 25 gm 01/21/23 08:44 01/21/23 09:12 Dextrose 50 % 25 Gm/50 Ml Syringe IVPUSH 01/21/23 08:45 25 gm ONCE ONE Administration Fentanyl 25 mcg 01/21/23 07:19 01/21/23 08:16 Fentanyl Citrate/Pf 100 Mcg/2 Ml Vial IVPUSH 01/21/23 07:20 25 mcg ONCE ONE Administration Protocol Sodium Chloride 500 mls @ 500 mls/hr 01/21/23 07:30 01/21/23 09:01 Ns IV 01/21/23 08:29 500 mls/hr .Q1H ANNABELLA Infusion Sodium Chloride 500 mls @ 500 mls/hr 01/21/23 07:30 01/21/23 11:05 Ns IV 01/21/23 08:29 Infused .Q1H ANNABELLA Infusion Ceftriaxone Sodium 1 gm/ 50 mls @ 100 mls/hr 01/21/23 07:29 01/21/23 09:00 Sodium Chloride IV 01/21/23 07:58 Infused ONCE ONE Infusion Calcium Gluconate 2 gm in 100 mls @ 50 mls/hr 01/21/23 08:44 01/21/23 09:12 Calcium Gluconate IV 01/21/23 10:43 50 mls/hr ONCE ONE Administration Albumin Human 100 mls @ 100 mls/hr 01/21/23 08:59 01/21/23 10:27 Kedbumin 25 % IV 01/21/23 09:58 Infused ONCE ONE Infusion Metronidazole 500 mg in 100 mls @ 100 mls/hr 01/21/23 09:11 01/21/23 10:27 Flagyl IV 01/21/23 10:10 100 mls/hr ONCE ONE Administration Ondansetron HCl 4 mg 01/21/23 07:19 01/21/23 08:16 Ondansetron Hcl 4 Mg/2 Ml Vial IVPUSH 01/21/23 07:20 4 mg ONCE ONE Administration Sodium Zirconium Cyclosilicate 5 gm 01/21/23 08:44 01/21/23 09:12 Sodium Zirconium Cyclosilicate 5 Gm Powd.Pack PO 01/21/23 08:45 5 gm ONCE ONE Administration Medical Decision Making Medical Decision Making MDM Narrative: 67 yo male with PMH of DM s/p L BKA and R TMA, CKD, HTN, HLD, PAD, anemia, dCHF, uncontrolled HTN with recent admission here 01/13-01/15 for keya on CKD and dx with renal artery stenosis as well as CHF requiring IV diuretics (2.6L negative) he is now here with very low BPs compared to his baseline, blurred vision, LUE weakness, abdominal pain. He is pale. At this time his BP went from 100 to 90s laying to sitting. He is symptomatic. I am sending him to stat dry CT scan - he cannot have CTA given worsening Cr. He is out of the window for tPa but I also believe this is likely a perfusion issue as his BP has never been this low. He will be sent for CT abdomen and CT chest to rule out cause of symptoms such as pneumonia - labs, type and screen, cultures sent off - I am ordering empiric IVF - cautiously given hx of volume overload as well as empiric ceftriaxone. Differential Diagnosis Differential Diagnoses: The differential diagnosis associated with the presentation includes med reaction, stroke out of window for tPa, hypoperfusion, anemia, KEYA on CKD, intra-abdominal infection Admission/Observation Consideration of admission/observation: Escalation of care including admission/observation considered admit given Cr, GB findings, other lab derangements Consult Healthcare Provider Management of the patient was discussed with: Hospitalist (will admit) and Resource Paraprofessional (Dr. Briggs aware - patient is a terrible surgical candidate at this time will benefit from IR drainage) Dr. Modi also notified of findings in ED Lab Data MDM Lab Attestation statement: I reviewed the patient's lab results. 01/21/23 10:09 01/21/23 08:03 Labs: Lab Results 01/21/23 01/21/23 01/21/23 Range/Units 07:55 08:03 10:09 WBC 9.5 7.5 (4.8-10.8) X10*3/uL RBC 2.29 L 2.38 L (4.60-5.80) X10*6/uL Hgb 7.2 L 7.3 L (14.0-18.0) g/dl Hct 22.8 L 23.5 L (42.0-52.0) % MCV 99.6 H 98.7 H (80.0-98.0) fL MCH 31.4 30.7 (27.0-33.0) pg MCHC 31.6 31.1 (31.0-36.0) g/dl RDW 13.2 13.2 (11.0-16.0) % Plt Count 231 219 (160-400) X10*3/uL MPV 10.5 10.3 (9.4-12.4) fL Immature Gran % (Auto) 0.4 (0.0-0.4) % Neut % (Auto) 80.8 H (45-73) % Lymph % (Auto) 6.1 L (20-40) % Johnston % (Auto) 9.5 (2-11) % Eos % (Auto) 2.6 (0-4) % Baso % (Auto) 0.6 (0-2) % Lymph # (Auto) 0.6 L (1.2-4.9) X10*3/uL Johnston # (Auto) 0.9 (0.1-1.2) X10*3/uL Eos # (Auto) 0.3 (0.0-0.4) X10*3/uL Baso # (Auto) 0.1 (0.0-0.2) X10*3/uL Abs Immat Gran (auto) 0.04 H (0.00-0.03) X10*3/uL Absolute Neuts (auto) 7.7 (2.0-8.3) x10*3/uL Absolute Nucleated RBC 0.000 0.000 (0.0-0.012) X10*3/uL Nucleated RBC % (auto) 0.0 0.0 (0.0-0.2) /100WBC PT 11.5 (11.1-13.3) SEC INR 0.9 (0.9-1.1) Sodium 140 (135-145) mmol/L Potassium 5.9 H D (3.3-5.1) mmol/L Chloride 111 H (96-108) mmol/L Carbon Dioxide 24 (22-29) mmol/L Anion Gap 11 L (12-20) BUN 63 H (9-16) mg/dL Creatinine 4.94 H* (0.5-1.4) mg/dL Estim Creat Clear Calc 16.1 Estimated GFR 12 Random Glucose 55 L* (60-115) mg/dL Lactic Acid 0.8 (0.5-2.0) mmol/L Calcium 8.3 L (8.4-10.2) mg/dL Magnesium 1.6 (1.6-2.6) mg/dL Total Bilirubin 0.2 (0.0-1.0) mg/dL Direct Bilirubin < 0.2 (0.0-0.5) mg/dL AST 29 (5-37) U/L ALT 20 (0-40) U/L Alkaline Phosphatase 94 (39-117) U/L Troponin I High Sens 159.2 H* D 142.4 H* (<3.5-35.0) ng/L B-Natriuretic Peptide 335 H (<100) pg/mL Total Protein 6.2 L (6.5-8.0) g/dL Albumin 2.5 L (3.5-5.0) g/dL Lipase 107 H (8-78) U/L Procalcitonin 0.16 ng/mL COVID-19 (YANELIS) Negative (Negative) COVID-19 Clin Com See Note Blood Type O Positive Antibody Screen NEGATIVE Independent Interpretation I performed an independent interpretation of an: EKG, Ultrasound (likely acalculous cholecystitis) and CT Scan (no ICH, effusions, concern for GB pathology) Interpretation: Rate: 55 Rhythm: sinus bradycardia with 1st degree [place]: normal Normal P waves. 1st degree. Normal QRS complex. ST T wave : no ADIA, inverted t wave III qTC: normal prior studies: no sig change The study has been interpreted contemporaneously by me. . Radiology Impression Discussion of test interpretation with radiology: I discussed test interpretation with the radiologist and I have reviewed the radiologist's reading. Radiologist Impression: stroke 747am- small SD hygroma no ICH, no infarct. Independent Historian Clinical information obtained from an independent historian. History obtained from or confirmed by: EMS External Record Review External record reviewed: Inpatient record Procedures EJ/Peripheral Line Neck R: Time Out Performed: Yes Skin Cleansed in Sterile Fashion: Yes Size (gauge): 18 IV Secured and Dressing Applied: Yes Patient Tolerated Procedure: well and no complications Arm R: Time Out Performed: Yes Skin Cleansed in Sterile Fashion: Yes Size (gauge): 20 IV Secured and Dressing Applied: Yes Patient Tolerated Procedure: well and no complications Additional Comments: US guided - PA performed procedure Critical Care Time Critical Care Time Critical Care Time: Yes Total Critical Care Time: 90 Attestation: treatment of low BP with fluids and albumin, review or records, surgery and nephrology consult, repeat labs, admission, repeat assessments, treatment of low glucose I attest to this time spent taking care of the patient Discharge Plan Discharge Clinical Impression: Acute kidney injury superimposed on chronic kidney disease, Hypoglycemia, Acute hyperkalemia, Weakness, Acalculous cholecystitis, Elevated troponin Abdominal pain Qualifiers: Abdominal location: right upper quadrant Qualified Code(s): R10.11 - Right upper quadrant pain Patient Disposition: Admitted As Inpatient Sepsis Bolus Exclusion Sepsis Bolus Exclusion CHF/Renal Failure This patient met severe sepsis criteria due to the following condition(s):: H ypotension In my clinical judgement the administration of 30 ml/kg of crystalloid would be detrimental to this patient due to the patient's following conditions:: Stage III or IV Chronic Kidney Disease (GFR<30) and Concern for fluid overload Replace the 30 mls/kg with (*zero amount not acceptable): Crystalloids amount given in mls: (rate must be at least 150cc/hr): 1,000 Colloids amount given in mls:: 100
--- NOTE | 2023-01-21 07:19 | ECG_ITS ---
Test Reason : dizziness Blood Pressure : / mmHG Vent. Rate : 055 BPM Atrial Rate : 055 BPM P-R Int : 288 ms QRS Dur : 090 ms QT Int : 444 ms P-R-T Axes : 035 024 019 degrees QTc Int : 424 ms Sinus bradycardia with 1st degree A-V block Abnormal ECG When compared with ECG of 12-JAN-2023 22:18, No significant change was found Referred By: Simran Johnston Electronically Signed By:SWEETIE CASTRO MD
[2023-01-21 08:11] LABS: Lactic Acid 0.8 mmol/L (0.5-2.0)
[2023-01-21 08:12] LABS: MANUAL DIFF FLAG NO
[2023-01-21 08:14] LABS: Basophils Absolute Auto 0.1 X10*3/uL (0.0-0.2); Basophils Percent Auto 0.6 % (0-2); Eosinophils Absolute Auto 0.3 X10*3/uL (0.0-0.4); Eosinophils Percent Auto 2.6 % (0-4); Hematocrit 22.8 % (42.0-52.0); Hemoglobin 7.2 g/dl (14.0-18.0); Imm Gran Abs Auto 0.04 X10*3/uL (0.00-0.03); Imm Gran Pct Auto 0.4 % (0.0-0.4); Lymphocytes Absolute Auto 0.6 X10*3/uL (1.2-4.9); Lymphocytes Percent Auto 6.1 % (20-40); Mean Corpuscular HGB Conc 31.6 g/dl (31.0-36.0); Mean Corpuscular Hemoglobin 31.4 pg (27.0-33.0); Mean Corpuscular Volume 99.6 fL (80.0-98.0); Mean Platelet Volume 10.5 fL (9.4-12.4); Monocytes Absolute Auto 0.9 X10*3/uL (0.1-1.2); Monocytes Percent Auto 9.5 % (2-11); Neutrophils Absolute Auto 7.7 x10*3/uL (2.0-8.3); Neutrophils Percent Auto 80.8 % (45-73); Platelet Count 231 X10*3/uL (160-400); Red Blood Count 2.29 X10*6/uL (4.60-5.80); Red Cell Distribution Width 13.2 % (11.0-16.0); White Blood Count 9.5 X10*3/uL (4.8-10.8)
[2023-01-21] MEDS: fentaNYL citrate/PF 100 MCG/2 ML VIAL 25 MCG IVPUSH (08:16)
[2023-01-21] MEDS: ondansetron HCL 4 MG/2 ML VIAL IVPUSH (08:16)
[2023-01-21] MEDS: cefTRIAXone sodium 1 GM in 0.9 % Sodium Chloride 50 ML IV (08:17)
[2023-01-21] MEDS: 0.9 % Sodium Chloride 500 ML IV ×2 (08:18→08:39)
[2023-01-21 08:24] LABS: INTERNATIONAL NORM RATIO 0.9 (0.9-1.1); Prothrombin Time 11.5 SEC (11.1-13.3)
[2023-01-21 08:34] LABS: B Type Natriuretic Peptide 335 pg/mL (<100)
[2023-01-21 08:40] LABS: COVID-19 Test Negative (Negative); IDNOW Serial# 08D9AD1C
[2023-01-21 08:45] LABS: Alanine Aminotransferase 20 U/L (0-40); Albumin Level 2.5 g/dL (3.5-5.0); Alkaline Phosphatase 94 U/L (39-117); Anion Gap 11 (12-20); Aspartate Amino Transferase 29 U/L (5-37); Bilirubin Direct < 0.2 mg/dL (0.0-0.5); Bilirubin Total 0.2 mg/dL (0.0-1.0); Blood Urea Nitrogen 63 mg/dL (9-16); Calcium 8.3 mg/dL (8.4-10.2); Carbon Dioxide 24 mmol/L (22-29); Chloride 111 mmol/L (96-108); Creatinine Clr Calc Pharmacy 16.1; Estimated Glomerular Filt Rate 12; Glucose Random 55 mg/dL (60-115); Lipase 107 U/L (8-78); Magnesium 1.6 mg/dL (1.6-2.6); Potassium 5.9 mmol/L (3.3-5.1); Sodium 140 mmol/L (135-145); Total Protein 6.2 g/dL (6.5-8.0)
[2023-01-21 08:52] LABS: Procalcitonin 0.16 ng/mL
[2023-01-21 08:53] LABS: Troponin-I High Sensitivity 159.2 ng/L (<3.5-35.0)
[2023-01-21] MEDS: Dextrose 50 % 25 GM/50 ML SYRINGE IVPUSH ×2 (09:12→18:22)
[2023-01-21] MEDS: Sodium Zirconium Cyclosilicate 5 GM POWD.PACK PO (09:12)
[2023-01-21] MEDS: Calcium Gluconate/NaCl,Iso-Osm 2 GM/100 ML PLAST..BAG IV ×3 (09:12→22:25)
[2023-01-21] MEDS: Albumin Human 25 % 100 ML IV (09:21)
[2023-01-21] MEDS: Albuterol Sulfate (0.083%) 2.5 MG/3 ML VIAL.NEB INHALE (10:13)
[2023-01-21 10:14] LABS: Hematocrit 23.5 % (42.0-52.0); Hemoglobin 7.3 g/dl (14.0-18.0); Mean Corpuscular HGB Conc 31.1 g/dl (31.0-36.0); Mean Corpuscular Hemoglobin 30.7 pg (27.0-33.0); Mean Corpuscular Volume 98.7 fL (80.0-98.0); Mean Platelet Volume 10.3 fL (9.4-12.4); Platelet Count 219 X10*3/uL (160-400); Red Blood Count 2.38 X10*6/uL (4.60-5.80); Red Cell Distribution Width 13.2 % (11.0-16.0); White Blood Count 7.5 X10*3/uL (4.8-10.8)
[2023-01-21] MEDS: metroNIDAZOLE/NS 500 MG/100 ML PIGGYBACK 100 MG IV (10:27)
--- NOTE | 2023-01-21 11:02 | P.CONGS_ITS ---
History of Present Illness Consult details Consult date: 01/21/23 Requesting physician: Simran oJhnston Narrative: 67 year old male with multiple medical comorbidities including for DM, CKD, HTN, HLD, PAD, dCHF with recent admission for KEYA on CKD, CHF and diagnosis of renal artery stenosis. He returns to the ED today with complaints of generalized weakness, lightheadedness and blurred vision. Symptoms were present upon waking. He also has abdominal pain without nausea, vomiting, diarrhea. He has been eating normally for himself. He notes the blurry vision has been present since his last admission but was worse this morning. He also has had a productive cough but no fevers for the past few days. Family called 911 for him. He was found to be hypotensive upon presentation with improvement with gentle IV hydration. Work up in the ED included a head CT, Chest CT and CT scan abd/pelvis which was significant for marked gallbladder wall thickening and gallbladder wall edema. He has multiple laboratory abnormalities including an elevated tropinin of 159.2 and Cr of 4.94. He was started on empiric antibiotics and surgery was consulted for concern for acute cholecystitis. Review of Systems 2 Constitutional: Constitutional: Denies chills and Denies fever(s) Cardiovascular: Cardiovascular: Denies chest pain and Denies dyspnea Respiratory: Respiratory: Reports cough and Denies dyspnea Gastrointestinal: Gastrointestinal: Reports as per HPI Genitourinary: Genitourinary: Denies hematuria Integumentary/Breasts: Skin/Breast: Denies rash and Denies jaundice PMFSH Past Medical History Medical History Erectile dysfunction CKD (chronic kidney disease) stage 3, GFR 30-59 ml/min (HFpEF) heart failure with preserved ejection fraction Osteomyelitis CKD stage 3 due to type 2 diabetes mellitus LIVE (iron deficiency anemia) Hyperlipidemia associated with type 2 diabetes mellitus Type 2 diabetes mellitus Kidney disease High cholesterol HTN (hypertension) Diabetes PAD (peripheral artery disease) Family History Family History Other No family history of coronary artery disease Surgical History Surgical History Status post transmetatarsal amputation of left foot Hx of amputation History of amputation of right forefoot H/O shoulder surgery Social History Social History Household Members: None Housing: Apartment Do you presently have visiting nurse or other home services: Yes (TICKET ATTENDANT ONLY) Alcohol intake: current Alcohol intake frequency: a few times a month Alcohol type: beer Patient Tobacco Use Status: Never used Tobacco Tobacco use type: Cigarette Smoked in Last 30 Days: No Use of substances other than those prescribed or required for medical reasons: No Substance Use Type: Crack/Cocaine Advance Directives: Yes Advance Directives on File: Yes Advance Directives Date on File: 02/02/22 service: No Current occupational status: retired Meds Allergies Allergy/AdvReac Type Severity Reaction Status Date / Time metformin AdvReac Unknown Verified 01/17/23 14:04 Home Medications Medication Instructions Recorded Confirmed Last Taken Type sertraline 50 mg tablet 50 mg PO DAILY 04/27/21 01/13/23 09/28/22 History nabumetone 500 mg tablet 500 mg PO BID 07/17/22 01/13/23 09/28/22 History albuterol sulfate 90 mcg/actuation 2 puff inhalation Q4H PRN Wheezing 01/13/23 01/13/23 Unknown History aerosol inhaler (Ventolin HFA) amlodipine 10 mg tablet 10 mg PO QPM 01/13/23 01/13/23 Unknown History aspirin 81 mg chewable tablet 1 tab PO QAM 01/13/23 01/13/23 Unknown History atorvastatin 80 mg tablet 80 mg PO BEDTIME 01/13/23 01/13/23 Unknown History docusate sodium 100 mg capsule 100 mg PO BEDTIME 01/13/23 01/13/23 Unknown History ezetimibe 10 mg tablet 10 mg PO QAM 01/13/23 01/13/23 Unknown History flash glucose scanning reader 01/13/23 01/13/23 Unknown History (FreeStyle Daniel 2 [place]) flash glucose sensor (FreeStyle 01/13/23 01/13/23 Unknown History Daniel 2 Sensor kit) fluticasone propionate 50 2 spray intranasal QAM PRN 01/13/23 01/13/23 Unknown History mcg/actuation nasal Congestion spray,suspension furosemide 40 mg tablet 40 mg PO BID 01/13/23 01/13/23 Unknown History gabapentin 300 mg capsule 300 mg PO QAM 01/13/23 01/13/23 Unknown History glipizide 10 mg tablet 10 mg PO BID 01/13/23 01/13/23 Unknown History hydralazine 50 mg tablet 100 mg PO TID 01/13/23 01/13/23 Unknown History insulin degludec 100 unit/mL (3 25 unit subcut DAILY 01/13/23 01/13/23 Unknown History mL) subcutaneous pen (Tresiba FlexTouch U-100 insulin) isosorbide mononitrate 60 mg 60 mg PO QAM 01/13/23 01/13/23 Unknown History tablet,extended release 24 hr losartan 50 mg tablet 100 mg PO QAM 01/13/23 01/13/23 Unknown History sitagliptin phosphate 100 mg 100 mg PO QAM 01/13/23 01/13/23 Unknown History tablet (Januvia) tamsulosin 0.4 mg capsule 0.4 mg PO QPM 01/13/23 01/13/23 Unknown History Physical Exam 2 Vital Signs: Vital Signs: Last Vital Signs Temp 97.8 F 01/21/23 07:16 Pulse 55 01/21/23 10:14 Resp 18 01/21/23 10:14 BP 102/46 L 01/21/23 09:13 Pulse Ox 94 01/21/23 08:43 O2 Del Method Room Air 01/21/23 08:43 BMI result Body Mass Index 33.5 Const: General: comfortable, no acute distress and alert O rientation/consciousness: patient oriented x3 Resp: Effort & Inspection: normal respiratory effort Cardio: Rate: regular rate GI: Other: protuberant abdomen Palpation (GI): Soft to palpation and Tenderness to palpation present (GI) in the RUQ (marked tenderness ) and Ford's sign positive Percussion: Yes normal to percussion Skin: General skin exam: no rashes or lesions noted and no jaundice Neuro: General: patient oriented x3 and moves all extremities Results Labs 01/21/23 10:09 01/21/23 08:03 Labs: Abnormal lab results 01/21/23 01/21/23 Range/Units 08:03 10:09 RBC 2.29 L 2.38 L (4.60-5.80) X10*6/uL Hgb 7.2 L 7.3 L (14.0-18.0) g/dl Hct 22.8 L 23.5 L (42.0-52.0) % MCV 99.6 H 98.7 H (80.0-98.0) fL Neut % (Auto) 80.8 H (45-73) % Lymph % (Auto) 6.1 L (20-40) % Lymph # (Auto) 0.6 L (1.2-4.9) X10*3/uL Abs Immat Gran (auto) 0.04 H (0.00-0.03) X10*3/uL Potassium 5.9 H D (3.3-5.1) mmol/L Chloride 111 H (96-108) mmol/L Anion Gap 11 L (12-20) BUN 63 H (9-16) mg/dL Creatinine 4.94 H* (0.5-1.4) mg/dL Random Glucose 55 L* (60-115) mg/dL Calcium 8.3 L (8.4-10.2) mg/dL Troponin I High Sens 159.2 H* D (<3.5-35.0) ng/L B-Natriuretic Peptide 335 H (<100) pg/mL Total Protein 6.2 L (6.5-8.0) g/dL Albumin 2.5 L (3.5-5.0) g/dL Lipase 107 H (8-78) U/L Short CBC 01/21/23 01/21/23 Range/Units 08:03 10:09 WBC 9.5 7.5 (4.8-10.8) X10*3/uL Hgb 7.2 L 7.3 L (14.0-18.0) g/dl Hct 22.8 L 23.5 L (42.0-52.0) % Plt Count 231 219 (160-400) X10*3/uL BMP 01/21/23 08:03 Sodium 140 Potassium 5.9 H D Chloride 111 H Carbon Dioxide 24 BUN 63 H Creatinine 4.94 H* Calcium 8.3 L Liver Function 01/21/23 Range/Units 08:03 Total Bilirubin 0.2 (0.0-1.0) mg/dL Direct Bilirubin < 0.2 (0.0-0.5) mg/dL AST 29 (5-37) U/L ALT 20 (0-40) U/L Alkaline Phosphatase 94 (39-117) U/L Albumin 2.5 L (3.5-5.0) g/dL All other labs normal. Imaging Abdomen CT scan report/results: report reviewed and image reviewed Abdominal ultrasound report/results: report reviewed and image reviewed Assessment and Plan (1) Acalculous cholecystitis: Status: Acute Plan 67 year old male with multiple medical comorbidities who presented to the ED with complaints of generalized weakness, blurred vision and abdominal pain with marked RUQ tenderness, +Ford sign on exam and gallbladder wall thickening and edema on imaging suggesting acute acalculous cholecystitis. Patient is not a good surgical candidate with his acute and chronic medical comorbidities. Recommend continuing IV antibiotics and IR cholecystostomy tube placement. Will continue to follow. Procedures Date of Service Date of Service: 01/21/23
[2023-01-21 11:03] LABS: Troponin-I High Sensitivity 142.4 ng/L (<3.5-35.0)
[2023-01-21 11:10] LABS: Glucose, Whole Blood 81 mg/dL (60-115)
[2023-01-21] MEDS: Dextrose 5 % and 0.9 % NaCl 1,000 ML 80 ML IVCONT (11:54)
--- NOTE | 2023-01-21 12:17 | P.HPHOSP_ITS ---
History of Present Illness Date of Service: 01/21/23 Chief Complaint: blurred vision and RUQ abdominal pain This is a 67 year old male with a PMH of DM type 2, s/p L BKA and R TMA, Stabe 3b CKD, HTN, HLD, HFpEF, Renal artery stenosis, LIVE, HLD and PAD who presented to [facility] ED on 01/21/23 with complaints of RUQ abdominal pain and blurry vision. The patient is primarily Vietnamese speaking and hence, pin game machine inspector services are used. The patient reports that his abdominal pain is in the RUQ and began suddenly this morning and woke him up from sleep. Despite the use of an pin game machine inspector, the patient remains a vague historian. He denies any such prior pain. Denies relation to food. Reports sharp and constant in nature. Denies any nausea/vomiting/diarrhea. Denies any fevers or chills. In regards to his blurry vision, states he noticed it after he work up. Last night, he was in his usual state of health. He reports that his blurry vision is significantly improved and nearly resolved. He denies any associated focal weakness. In the ED, the patient was initially hypotensive. He was treated with IVF and IV albumin with improvement in his BP into the 100s systolic (blurry vision improved as his BP improved). Work up revealed KEYA on CDK3 with SCr nearly 5 and K nearly 6. He has been given Lokelma and his case has been d/w Nephrology. For his RUQ pain, imaging studies show acalculous antonia for which general surgery has been consulted. He has been given empiric IV antibiotics. Of note, the patient had recent adjustment to his antihypertensive regime -- his Toprol was changed to Coreg and hadd metolozone added to his regime. Review of Systems 2 Review of Systems: Negative except HPI/interval history. [facility] Medical History Erectile dysfunction CKD (chronic kidney disease) stage 3, GFR 30-59 ml/min (HFpEF) heart failure with preserved ejection fraction Osteomyelitis CKD stage 3 due to type 2 diabetes mellitus LIVE (iron deficiency anemia) Hyperlipidemia associated with type 2 diabetes mellitus Type 2 diabetes mellitus Kidney disease High cholesterol HTN (hypertension) Diabetes PAD (peripheral artery disease) Family History Other No family history of coronary artery disease Surgical History Status post transmetatarsal amputation of left foot Hx of amputation History of amputation of right forefoot H/O shoulder surgery Social History Household Members: None Housing: Apartment Do you presently have visiting nurse or other home services: Yes (INSTRUCTIONAL FACILITATOR ONLY) Alcohol intake: current Alcohol intake frequency: a few times a month Alcohol type: beer Patient Tobacco Use Status: Never used Tobacco Tobacco use type: Cigarette Smoked in Last 30 Days: No Use of substances other than those prescribed or required for medical reasons: No Substance Use Type: Crack/Cocaine Advance Directives: Yes Advance Directives on File: Yes Advance Directives Date on File: 02/02/22 service: No Current occupational status: retired Meds Allergies Allergy/AdvReac Type Severity Reaction Status Date / Time metformin AdvReac Unknown Verified 01/17/23 14:04 Active Medications: Current Medications Acetaminophen (Acetaminophen Supp 650 Mg Supp.Rect) 650 mg ME Q6H PRN PRN Reason: Pain, Mild (Pain Scale 1-3) Dextrose/Sodium Chloride (D5ns) 1,000 mls @ 80 mls/hr IVCONT .[id number] [facility] Last Admin: 01/21/23 11:54 Dose: 80 mls/hr Ondansetron HCl (Ondansetron Hcl 4 Mg/2 Ml Vial) 4 mg IVPUSH Q8H PRN PRN Reason: Nausea and Vomiting Sodium Chloride (0.9 % Sodium Chloride Flush 3 Ml Syringe) 3 ml IVFLUSH QSHIFT [facility] Home Medications Medication Instructions Recorded Confirmed Last Taken Type sertraline 50 mg tablet 50 mg PO DAILY 04/27/21 01/13/23 09/28/22 History nabumetone 500 mg tablet 500 mg PO BID 07/17/22 01/13/23 09/28/22 History albuterol sulfate 90 mcg/actuation 2 puff inhalation Q4H PRN Wheezing 01/13/23 01/13/23 Unknown History aerosol inhaler (Ventolin HFA) amlodipine 10 mg tablet 10 mg PO QPM 01/13/23 01/13/23 Unknown History aspirin 81 mg chewable tablet 1 tab PO QAM 01/13/23 01/13/23 Unknown History atorvastatin 80 mg tablet 80 mg PO BEDTIME 01/13/23 01/13/23 Unknown History docusate sodium 100 mg capsule 100 mg PO BEDTIME 01/13/23 01/13/23 Unknown History ezetimibe 10 mg tablet 10 mg PO QAM 01/13/23 01/13/23 Unknown History flash glucose scanning reader 01/13/23 01/13/23 Unknown History (FreeStyle Daniel 2 [place]) flash glucose sensor (FreeStyle 01/13/23 01/13/23 Unknown History Daniel 2 Sensor kit) fluticasone propionate 50 2 spray intranasal QAM PRN 01/13/23 01/13/23 Unknown History mcg/actuation nasal Congestion spray,suspension furosemide 40 mg tablet 40 mg PO BID 01/13/23 01/13/23 Unknown History gabapentin 300 mg capsule 300 mg PO QAM 01/13/23 01/13/23 Unknown History glipizide 10 mg tablet 10 mg PO BID 01/13/23 01/13/23 Unknown History hydralazine 50 mg tablet 100 mg PO TID 01/13/23 01/13/23 Unknown History insulin degludec 100 unit/mL (3 25 unit subcut DAILY 01/13/23 01/13/23 Unknown History mL) subcutaneous pen (Tresiba FlexTouch U-100 insulin) isosorbide mononitrate 60 mg 60 mg PO QAM 01/13/23 01/13/23 Unknown History tablet,extended release 24 hr losartan 50 mg tablet 100 mg PO QAM 01/13/23 01/13/23 Unknown History sitagliptin phosphate 100 mg 100 mg PO QAM 01/13/23 01/13/23 Unknown History tablet (Januvia) tamsulosin 0.4 mg capsule 0.4 mg PO QPM 01/13/23 01/13/23 Unknown History Physical Exam 2 Vital Signs and Narrative: Vital Signs: Last Vital Signs Temp 97.8 F 01/21/23 07:16 Pulse 58 01/21/23 11:52 Resp 15 01/21/23 11:52 BP 108/43 L 01/21/23 11:52 Pulse Ox 96 01/21/23 11:52 O2 Del Method Nasal Cannula 01/21/23 11:52 O2 Flow Rate 2 01/21/23 11:52 BMI result Body Mass Index 33.5 Const: Other: Constitutional - Awake and Alert, mild distress Eyes - PERRLA, EOMI Cardiovascular - S1S2, RRR, +pedal edema Respiratory - Normal lung expansion, Normal respiratory effort, No respiratory distress, CTA bilaterally Gastrointestinal - RUQ TTP without rebound or guarding - No CVA tenderness Extremities - L BKA, R TMA Musculoskeletal - Normal inspection, normal ROM Skin - Warm/Dry Neurological - Alert & oriented x3, No focal deficit Psychological - Appropriate affect Results Labs 01/21/23 10:09 01/21/23 08:03 Labs: Laboratory Results - last 24 hr 01/21/23 01/21/23 01/21/23 07:55 08:03 10:09 MCV 99.6 H 98.7 H MCH 31.4 30.7 MCHC 31.6 31.1 RDW 13.2 13.2 Plt Count 231 219 MPV 10.5 10.3 Immature Gran % (Auto) 0.4 Neut % (Auto) 80.8 H Lymph % (Auto) 6.1 L Ida % (Auto) 9.5 Eos % (Auto) 2.6 Baso % (Auto) 0.6 Lymph # (Auto) 0.6 L Ida # (Auto) 0.9 Eos # (Auto) 0.3 Baso # (Auto) 0.1 Abs Immat Gran (auto) 0.04 H Absolute Neuts (auto) 7.7 Absolute Nucleated RBC 0.000 0.000 Nucleated RBC % (auto) 0.0 0.0 PT 11.5 INR 0.9 Anion Gap 11 L Estim Creat Clear Calc 16.1 Estimated GFR 12 POC Glucose Random Glucose 55 L* Lactic Acid 0.8 Calcium 8.3 L Magnesium 1.6 Total Bilirubin 0.2 Direct Bilirubin < 0.2 AST 29 ALT 20 Alkaline Phosphatase 94 B-Natriuretic Peptide 335 H Total Protein 6.2 L Albumin 2.5 L Lipase 107 H Procalcitonin 0.16 COVID-19 (YANELIS) Negative COVID-19 Clin Com See Note Blood Type O Positive Antibody Screen NEGATIVE 01/21/23 10:59 MCV MCH MCHC RDW Plt Count MPV Immature Gran % (Auto) Neut % (Auto) Lymph % (Auto) Ida % (Auto) Eos % (Auto) Baso % (Auto) Lymph # (Auto) Ida # (Auto) Eos # (Auto) Baso # (Auto) Abs Immat Gran (auto) Absolute Neuts (auto) Absolute Nucleated RBC Nucleated RBC % (auto) PT INR Anion Gap Estim Creat Clear Calc Estimated GFR POC Glucose 81 Random Glucose Lactic Acid Calcium Magnesium Total Bilirubin Direct Bilirubin AST ALT Alkaline Phosphatase B-Natriuretic Peptide Total Protein Albumin Lipase Procalcitonin COVID-19 (YANELIS) COVID-19 Clin Com Blood Type Antibody Screen Imaging Radiologist's Impressions: Impressions Head CT 01/21/23 07:40 IMPRESSION: No acute intracranial pathology. Right subdural hygroma. This critical result was discussed with Dr. Johnston at 0746 hours on 01/21/2023. It was ascertained that the content and urgency of the report was understood at the time of direct communication. Abdomen/Pelvis CT 01/21/23 08:01 IMPRESSION: Marked gallbladder wall thickening and gallbladder wall edema. Trace perihepatic free fluid. Correlation should be made with right upper quadrant ultrasound. Wall thickening of the urinary bladder despite underdistention. Advise correlation with urinalysis. Moderate right pleural effusion. Small left pleural effusion. 4 mm left upper lobe pulmonary nodule. Follow-up chest CT in 12 months is advised. Chest CT 01/21/23 08:01 IMPRESSION: Marked gallbladder wall thickening and gallbladder wall edema. Trace perihepatic free fluid. Correlation should be made with right upper quadrant ultrasound. Wall thickening of the urinary bladder despite underdistention. Advise correlation with urinalysis. Moderate right pleural effusion. Small left pleural effusion. 4 mm left upper lobe pulmonary nodule. Follow-up chest CT in 12 months is advised. Abdomen Ultrasound 01/21/23 09:46 IMPRESSION: Findings suggestive of acute inflammation of the gallbladder. No gallstones are visible. This may represent acute acalculous cholecystitis. Consider surgical consultation. Assessment and Plan (1) Acute hyperkalemia: Status: Acute (2) Acute kidney injury superimposed on chronic kidney disease: Status: Acute Plan 67 yo M with multiple medical issues including DM type 2, s/p L BKA and R TMA, Stabe 3b CKD, HTN, HLD, HFpEF, Renal artery stenosis, LIVE, HLD and PAD who is being admitted for: 1. KEYA on CKD 3b SCr around 2-2.5; now presenting with SCr of 4.94 with associated hyperK of 5.9 Given IVF and lokelma in the ED Will insert valerio and repeat BMP now Nephrology consult 2. Blurred visions / hypotension suspected BP secondary to low BP (normally the patient's BP 140s-180s); improving as his BP improved likely cause of his low BP is secondary to recent adjustments to his medications + underlying CHF and renal artery stenosis will hold antihypertensives for now and adjust slowly low BP is not due to severe sepsis 3. 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 Hypoglyemia, uncontrolled DM given a dose of D50, now on D5NS maintenance hold insulin, monitor POC glucose 5. HFpEF, chronic currently ppears hypovoluemic -- given 1L NS and 25g albumin in the ED currently on maintenance fluids given #3 and NPO status monitor closely 6. Renal artery stenosis was to have surgery with vascular as an outpatient -- will need follow up for this 7. Anemia chronic, h/h at about baseline monitor Med Rec pending, continue home meds as appropriate once completed Full Code DVT pptx - subcut heparin (to start after surgical eval and if no urgent procedures needed today) Patient with KEYA and hyoptension (suspected secondary to meds, to rule out infectious etiology) with possible acalculous cholecystitis which may require surgical intervention, therefore expected to require at a minimum, 2 midnights in the hospital. Therefore, will be admitted as inpatient. Quality Stroke Does the patient have a stroke diagnosis?: No VTE Prior VTE?: No VTE Risk Level:: Medical - moderate - high VTE Device Contraindication: Treatment Not Indicated VTE Drug Contraindication: N/A - Med Ordered
[2023-01-21 12:20] LABS: Appearance Urine Turbid; Color Urine Dark Yellow; Glucose Urine UA Negative (Negative); Leukocyte Esterase Urine Negative (Negative); Nitrite Urine Negative (Negative); Specific Gravity - Urine >= 1.030 (1.005-1.025); UMIC TRIGGER UACC YES; Urine Blood Negative (Negative); Urine Ketones Trace mg/dL (Negative); Urine Protein >=1000 (4+) mg/dL (Neg-Trace)
[2023-01-21 12:29] LABS: Bacteria Urine 2+ (None Seen); Granular Casts Urine Present; Renal Epithelial Cells Urine Present; Transitional Epi Cells Urine Present; UACC Culture Trigger YES
[2023-01-21 13:49] LABS: Anion Gap 13 (12-20); Blood Urea Nitrogen 62 mg/dL (9-16); Calcium 8.7 mg/dL (8.4-10.2); Carbon Dioxide 19 mmol/L (22-29); Chloride 113 mmol/L (96-108); Estimated Glomerular Filt Rate 12; Glucose Random 78 mg/dL (60-115); Potassium 6.4 mmol/L (3.3-5.1); Sodium 139 mmol/L (135-145)
[2023-01-21 14:23] LABS: Glucose, Whole Blood 73 mg/dL (60-115)
--- NOTE | 2023-01-21 14:24 | PC.NURSE ---
Contact made for confirmation for PO status- regarding Lokelma administration to admitting MD via tiger text. Awaiting answer.
[2023-01-21] MEDS: Sodium Zirconium Cyclosilicate 10 GM POWD.PACK PO ×3 (14:32→20:56)
--- NOTE | 2023-01-21 14:35 | PC.NURSE ---
First call to floor. Primary RN at lunch
--- NOTE | 2023-01-21 15:02 | PC.NURSE ---
Call placed to floor- Report given
[2023-01-21 15:59] LABS: Anion Gap 13 (12-20); Blood Urea Nitrogen 66 mg/dL (9-16); Calcium 8.5 mg/dL (8.4-10.2); Carbon Dioxide 21 mmol/L (22-29); Chloride 113 mmol/L (96-108); Creatinine Clr Calc Pharmacy 15.8; Estimated Glomerular Filt Rate 12; Glucose Random 77 mg/dL (60-115); Potassium 6.7 mmol/L (3.3-5.1); Sodium 140 mmol/L (135-145)
--- NOTE | 2023-01-21 16:38 | PM.EVENT ---
Event Note Date of Service: 01/21/23 Event Note: Patient's repeat potassium after admission increased to 6.4. Pt was given one dose of lokelma 10mg at that time and repeat stat chem was repeated to ensure accuracy. Case was d/w Nephrology at this time, who recommended lokelma, repeat BMP. Repeat chem revealed potassium of 6.7 case d/w nephrology again -- will give lokelma 10mg x 2, ca gluconate, d50/insulin and albuterol inh will repeat chem around 6pm if not improved, may need urgent dialysis Time Spent With Patient Time: Total time managing care of this patient today ____ minutes.
--- NOTE | 2023-01-21 16:42 | P.CONNP_ITS ---
History of Present Illness Reason for Consult Consult date: 01/21/23 Chief Complaint Chief complaint: RUQ pain History of Present Illness Narrative: RTANE consulted for KEYA on CKD with HyperK and acute cholecystis and LOW BPS Recent hosp for HTN urgency and BP meds incr and noted R LORENZO and was being eval for possibley R PTRA plast/stenting b vasc and noted toda as outpt to have very LOW BPs and RUQ pain. Overall feels unwell. Abd pain, N/V nad gen weak with incr abd bloating. H/O multiple medical issues including DM type 2, s/p L BKA and R TMA, Stabe 3b CKD, HTN, HLD, HFpEF, Renal artery stenosis, LIVE, HLD and PAD Labs as noted and POOR UOP despite 1.5 L IVF. BPs doing better after 1.5 L IVF and hold BP meds. Review of Systems Review of Systems Negative except HPI/interval history. Constitutional: Denies chills and Denies fever(s) Cardiovascular: Denies chest pain and Denies dyspnea Respiratory: Reports cough and Denies dyspnea Gastrointestinal: Reports as per HPI Genitourinary: Denies hematuria Skin/Breast: Denies rash and Denies jaundice PMFSH Past Medical History Medical History Erectile dysfunction CKD (chronic kidney disease) stage 3, GFR 30-59 ml/min (HFpEF) heart failure with preserved ejection fraction Osteomyelitis CKD stage 3 due to type 2 diabetes mellitus LIVE (iron deficiency anemia) Hyperlipidemia associated with type 2 diabetes mellitus Type 2 diabetes mellitus Kidney disease High cholesterol HTN (hypertension) Diabetes PAD (peripheral artery disease) Family History Family History Other No family history of coronary artery disease Surgical History Surgical History Status post transmetatarsal amputation of left foot Hx of amputation History of amputation of right forefoot H/O shoulder surgery Social History Social History Household Members: None Housing: Apartment Do you presently have visiting nurse or other home services: Yes ([employer] ONLY) Alcohol intake: current Alcohol intake frequency: a few times a month Alcohol type: beer Patient Tobacco Use Status: Never used Tobacco Tobacco use type: Cigarette Substance Use Type: Crack/Cocaine Advance Directives Date on File: 02/02/22 service: No Current occupational status: retired Meds Allergies Allergy/AdvReac Type Severity Reaction Status Date / Time metformin AdvReac Unknown Verified 01/17/23 14:04 Active Medications: Current Medications Acetaminophen (Acetaminophen Supp 650 Mg Supp.Rect) 650 mg MO Q6H PRN PRN Reason: Pain, Mild (Pain Scale 1-3) Dextrose/Sodium Chloride (D5ns) 1,000 mls @ 80 mls/hr IVCONT .[id number] [facility] Last Admin: 01/21/23 11:54 Dose: 80 mls/hr Piperacillin Sod/Tazobactam (Sod 2.25 gm/ Sodium Chloride) 50 mls @ 100 mls/hr IV Q8H [facility] Calcium Gluconate (Calcium Gluconate) 2 gm in 100 mls @ 50 mls/hr IV ONCE ONE Stop: 01/21/23 18:04 Ondansetron HCl (Ondansetron Hcl 4 Mg/2 Ml Vial) 4 mg IVPUSH Q8H PRN PRN Reason: Nausea and Vomiting Sodium Chloride (0.9 % Sodium Chloride Flush 3 Ml Syringe) 3 ml IVFLUSH QSHIFT ANNABELLA Sodium Zirconium Cyclosilicate (Sodium Zirconium Cyclosilicate 10 Gm Powd.Pack) 10 gm PO Q6H [facility] Stop: 01/21/23 23:01 Home Medications Medication Instructions Recorded Confirmed Last Taken Type sertraline 50 mg tablet 50 mg PO DAILY 04/27/21 01/13/23 09/28/22 History nabumetone 500 mg tablet 500 mg PO BID 07/17/22 01/13/23 09/28/22 History albuterol sulfate 90 mcg/actuation 2 puff inhalation Q4H PRN Wheezing 01/13/23 01/13/23 Unknown History aerosol inhaler (Ventolin HFA) amlodipine 10 mg tablet 10 mg PO QPM 01/13/23 01/13/23 Unknown History aspirin 81 mg chewable tablet 1 tab PO QAM 01/13/23 01/13/23 Unknown History atorvastatin 80 mg tablet 80 mg PO BEDTIME 01/13/23 01/13/23 Unknown History docusate sodium 100 mg capsule 100 mg PO BEDTIME 01/13/23 01/13/23 Unknown History ezetimibe 10 mg tablet 10 mg PO QAM 01/13/23 01/13/23 Unknown History flash glucose scanning reader 01/13/23 01/13/23 Unknown History (FreeStyle Daniel 2 [place]) flash glucose sensor (FreeStyle 01/13/23 01/13/23 Unknown History Daniel 2 Sensor kit) fluticasone propionate 50 2 spray intranasal QAM PRN 01/13/23 01/13/23 Unknown History mcg/actuation nasal Congestion spray,suspension furosemide 40 mg tablet 40 mg PO BID 01/13/23 01/13/23 Unknown History gabapentin 300 mg capsule 300 mg PO QAM 01/13/23 01/13/23 Unknown History glipizide 10 mg tablet 10 mg PO BID 01/13/23 01/13/23 Unknown History hydralazine 50 mg tablet 100 mg PO TID 01/13/23 01/13/23 Unknown History insulin degludec 100 unit/mL (3 25 unit subcut DAILY 01/13/23 01/13/23 Unknown History mL) subcutaneous pen (Tresiba FlexTouch U-100 insulin) isosorbide mononitrate 60 mg 60 mg PO QAM 01/13/23 01/13/23 Unknown History tablet,extended release 24 hr losartan 50 mg tablet 100 mg PO QAM 01/13/23 01/13/23 Unknown History sitagliptin phosphate 100 mg 100 mg PO QAM 01/13/23 01/13/23 Unknown History tablet (Januvia) tamsulosin 0.4 mg capsule 0.4 mg PO QPM 01/13/23 01/13/23 Unknown History Physical Exam Vital Signs: Last Vital Signs Temp 98.5 F 01/21/23 16:30 Pulse 56 01/21/23 16:30 Resp 16 01/21/23 16:30 BP 126/58 L 01/21/23 16:30 Pulse Ox 96 01/21/23 16:30 O2 Del Method Nasal Cannula 01/21/23 16:30 O2 Flow Rate 2.0 01/21/23 16:30 BMI result Body Mass Index 33.5 Const Other: Constitutional - Awake and Alert, mild distress Eyes - PERRLA, EOMI Cardiovascular - S1S2, RRR, +pedal edema Respiratory - Normal lung expansion, Normal respiratory effort, No respiratory distress, CTA bilaterally Gastrointestinal - RUQ TTP without rebound or guarding - No CVA tenderness Extremities - L BKA, R TMA Musculoskeletal - Normal inspection, normal ROM Skin - Warm/Dry Neurological - Alert & oriented x3, No focal deficit Psychological - Appropriate affect General: comfortable, no acute distress and alert Orientation/consciousness: patient oriented x3 Resp Effort & Inspection: normal respiratory effort Cardio Rate: regular rate GI Other: protuberant abdomen Palpation (GI): Soft to palpation and Tenderness to palpation present (GI) in the RUQ (marked tenderness ) and Ford's sign positive Percussion: Yes normal to percussion Skin General skin exam: no rashes or lesions noted and no jaundice Neuro General: patient oriented x3 and moves all extremities Results Lab Results 01/21/23 10:09 01/21/23 15:33 Lab results: Chemistry 01/21/23 01/21/23 01/21/23 08:03 13:09 15:33 Sodium 140 139 140 Potassium 5.9 H D 6.4 H* 6.7 H* Carbon Dioxide 24 19 L 21 L BUN 63 H 62 H 66 H Creatinine 4.94 H* 4.95 H* 5.03 H* Calcium 8.3 L 8.7 8.5 Hematology 01/21/23 01/21/23 08:03 10:09 WBC 9.5 7.5 Hgb 7.2 L 7.3 L Plt Count 231 219 Urinalysis 01/21/23 12:12 Urine Color Dark Yellow Urine Appearance Turbid Urine pH 5.0 Ur Specific [place] >= 1.030 H Urine Protein >=1000 (4+) H Urine Glucose (UA) Negative Urine Ketones Trace Urine Blood Negative Urine Nitrite Negative Ur Leukocyte Esterase Negative Urine RBC 6-10 H Urine WBC 6-10 H Ur Squamous Epith Cells 6-10 Hyaline Casts 6-10 Assessment and Plan (1) Acute hyperkalemia: Status: Acute (2) Acute kidney injury superimposed on chronic kidney disease: Status: Acute Plan 1. Oliguric KEYA: c/w renal hypoperfusion form LOW BPs--> ischemic ATN vs pre- renal 2. 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 Low BPs: d/t over medicated with BP meds vs sepsis and 3rd spacing of fluid 4. HyperK: d/t meds and KEYA 5. RUQ pain:acute antonia REC: agressive Tx of hyperK with Lokelma, insulin/gulcise, B2 nebs and may need temp HD depending on response to meds ( D/W Hospitalis--no IR avail to plae temp HD cath but ICU aware and if needs aute HD tehy will place line); hold BP meds; IVF as toelreated Procedures Date of Service Date of Service: 01/21/23
--- NOTE | 2023-01-21 17:05 | PHA.MEDREC ---
Pharmacy Consult ? Medication Reconciliation Pharmacy has completed the medication reconciliation. Patient just discharge 01/15, utilize claim history and discharge summary for med rec. Metoprolol was stopped on discharge. Mandi Kilgore, AngelesD
[2023-01-21] MEDS: Piperacillin Sodium/Tazobactam 2.25 GM in 0.9 % Sodium Chloride 50 ML IV (17:13)
[2023-01-21 17:27] LABS: Glucose, Whole Blood 68 mg/dL (60-115)
[2023-01-21 18:17] LABS: Glucose, Whole Blood 71 mg/dL (60-115)
[2023-01-21 19:30] LABS: Anion Gap 14 (12-20); Blood Urea Nitrogen 65 mg/dL (9-16); Calcium 8.8 mg/dL (8.4-10.2); Carbon Dioxide 23 mmol/L (22-29); Chloride 109 mmol/L (96-108); Creatinine Clr Calc Pharmacy 14.7; Estimated Glomerular Filt Rate 11; Glucose Random 72 mg/dL (60-115); Sodium 140 mmol/L (135-145)
[2023-01-21 19:53] LABS: Glucose, Whole Blood 106 mg/dL (60-115)
[2023-01-21] MEDS: Acetaminophen 325 MG TABLET 650 MG PO (20:55)
[2023-01-21] MEDS: Albuterol Sulfate (0.083%) 2.5 MG/3 ML VIAL.NEB 5 MG INHALE (23:24)
[2023-01-22] VITALS (9 sets, daily range): BP systolic 135–185; BP diastolic 59–77; PULSE 61–88; RESP 17–20; TEMP 35.7–37.1; O2SAT 94–98
[2023-01-22 00:01] LABS: Glucose, Whole Blood 78 mg/dL (60-115)
[2023-01-22 02:04] LABS: Glucose, Whole Blood 67 mg/dL (60-115)
[2023-01-22] MEDS: Sodium Zirconium Cyclosilicate 10 GM POWD.PACK PO ×2 (02:12→15:38)
[2023-01-22] MEDS: Piperacillin Sodium/Tazobactam 2.25 GM in 0.9 % Sodium Chloride 50 ML IV ×4 (02:13→22:57)
[2023-01-22] MEDS: Dextrose 50 % 25 GM/50 ML SYRINGE IVPUSH ×2 (02:26→17:50)
[2023-01-22 02:53] LABS: Glucose, Whole Blood 134 mg/dL (60-115)
--- NOTE | 2023-01-22 04:48 | PC.NURSE ---
pt blood sugar was checked at 0200, at this time the POC was 67. MD made aware and D50 25mg was given. patients blood sugar was 134 when rechecked.
[2023-01-22] MEDS: Dextrose 5 % and 0.9 % NaCl 1,000 ML 80 ML IVCONT ×2 (05:04→23:02)
[2023-01-22 07:48] LABS: Hematocrit 25.8 % (42.0-52.0); Hemoglobin 7.8 g/dl (14.0-18.0); Mean Corpuscular HGB Conc 30.2 g/dl (31.0-36.0); Mean Corpuscular Hemoglobin 30.6 pg (27.0-33.0); Mean Corpuscular Volume 101.2 fL (80.0-98.0); Mean Platelet Volume 10.6 fL (9.4-12.4); Platelet Count 226 X10*3/uL (160-400); Red Blood Count 2.55 X10*6/uL (4.60-5.80); Red Cell Distribution Width 13.1 % (11.0-16.0)
[2023-01-22 07:58] LABS: Glucose, Whole Blood 122 mg/dL (60-115)
[2023-01-22 08:08] LABS: Anion Gap 15 (12-20); Blood Urea Nitrogen 65 mg/dL (9-16); Carbon Dioxide 22 mmol/L (22-29); Chloride 113 mmol/L (96-108); Creatinine Clr Calc Pharmacy 13.8; Estimated Glomerular Filt Rate 10; Glucose Random 122 mg/dL (60-115); Potassium 5.9 mmol/L (3.3-5.1); Sodium 144 mmol/L (135-145)
[2023-01-22] MEDS: 0.9 % Sodium Chloride Flush 3 ML SYRINGE IVFLUSH ×3 (08:14→23:46)
[2023-01-22] MEDS: Acetaminophen 325 MG TABLET 650 MG PO ×2 (08:15→22:57)
--- NOTE | 2023-01-22 09:33 | P.PNGS_ITS ---
Subjective Subjective Date of Service: 01/22/23 Interval history: For unclear reasons, patient never had IR cholecystostomy tube placed yesterday. Last evening I put the order in for this and I was assured by Radiology that the procedure will be performed today. Patient still complaining of right upper quadrant pain. Physical Exam 2 Vital Signs: Vital Signs: Last Vital Signs Temp 98.1 F 01/22/23 07:09 Pulse 71 01/22/23 08:22 Resp 18 01/22/23 08:22 BP 135/63 01/22/23 08:22 Pulse Ox 96 01/22/23 07:09 O2 Del Method Nasal Cannula 01/22/23 07:09 O2 Flow Rate 2 01/22/23 07:09 BMI result Body Mass Index 33.5 GI: Other: Corpulent abdomen. Marked right upper quadrant tenderness. Objective Data Active Medications Acetaminophen (Acetaminophen Supp 650 Mg Supp.Rect) 650 mg OK Q6H PRN PRN Reason: Pain, Mild (Pain Scale 1-3) Acetaminophen (Acetaminophen 325 Mg Tablet) 650 mg PO Q6H PRN PRN Reason: Pain, Mild (Pain Scale 1-3) Last Admin: 01/22/23 08:15 Dose: 650 mg Documented By: THAO Dextrose (Dextrose 50 % 25 Gm/50 Ml Syringe) 25 gm IVPUSH Q15M PRN; Protocol PRN Reason: per Hypoglycemia Standing Ord. Last Admin: 01/22/23 02:26 Dose: 25 gm Documented By: ALAN Glucose (Glucose Gel 15 Gm Gel..Gram.) 15 gm PO Q15M PRN; Protocol PRN Reason: per Hypoglycemia Standing Ord. Dextrose/Sodium Chloride (D5ns) 1,000 mls @ 80 mls/hr IVCONT .[id number] ANNABELLA Last Admin: 01/22/23 05:04 Dose: 80 mls/hr Documented By: ALAN Piperacillin Sod/Tazobactam (Sod 2.25 gm/ Sodium Chloride) 50 mls @ 100 mls/hr IV Q8H [facility] Last Infusion: 01/22/23 08:43 Dose: Infused Documented By: THAO Insulin Human Lispro (Insulin Lispro 100 Unit/Ml 3 Ml Vial) 0 unit SUBCUT Q6H ANNABELLA; Protocol Last Admin: 01/22/23 08:04 Dose: Not Given Documented By: THAO Non-Admin Reason: NPO Ondansetron HCl (Ondansetron Hcl 4 Mg/2 Ml Vial) 4 mg IVPUSH Q8H PRN PRN Reason: Nausea and Vomiting Sodium Chloride (0.9 % Sodium Chloride Flush 3 Ml Syringe) 3 ml IVFLUSH QSHIFT [facility] Last Admin: 01/22/23 08:14 Dose: 3 ml Documented By: THAO Labs 01/22/23 07:25 01/22/23 07:25 Labs: Laboratory Results - last 24 hr 01/21/23 01/21/23 01/21/23 10:09 10:59 12:12 MCV 98.7 H MCH 30.7 MCHC 31.1 RDW 13.2 Plt Count 219 MPV 10.3 Absolute Nucleated RBC 0.000 Nucleated RBC % (auto) 0.0 Anion Gap Estim Creat Clear Calc Estimated GFR POC Glucose 81 Random Glucose Calcium Urine Color Dark Yellow Urine Appearance Turbid Urine pH 5.0 Ur Specific [place] >= 1.030 H Urine Protein >=1000 (4+) H Urine Glucose (UA) Negative Urine Ketones Trace Urine Blood Negative Urine Nitrite Negative Ur Leukocyte Esterase Negative Urine RBC 6-10 H Urine WBC 6-10 H Ur Squamous Epith Cells 6-10 Ur Transition Epith Cell Present Ur Renal Epithelial Cell Present Urine Bacteria 2+ Hyaline Casts 6-10 Granular Casts Present 01/21/23 01/21/23 01/21/23 13:09 14:19 15:33 MCV MCH MCHC RDW Plt Count MPV Absolute Nucleated RBC Nucleated RBC % (auto) Anion Gap 13 13 Estim Creat Clear Calc 16.0 15.8 Estimated GFR 12 12 POC Glucose 73 Random Glucose 78 77 Calcium 8.7 8.5 Urine Color Urine Appearance Urine pH Ur Specific [place] Urine Protein Urine Glucose (UA) Urine Ketones Urine Blood Urine Nitrite Ur Leukocyte Esterase Urine RBC Urine WBC Ur Squamous Epith Cells Ur Transition Epith Cell Ur Renal Epithelial Cell Urine Bacteria Hyaline Casts Granular Casts 01/21/23 01/21/23 01/21/23 16:34 18:14 18:18 MCV MCH MCHC RDW Plt Count MPV Absolute Nucleated RBC Nucleated RBC % (auto) Anion Gap 14 Estim Creat Clear Calc 14.7 Estimated GFR 11 POC Glucose 68 71 Random Glucose 72 Calcium 8.8 Urine Color Urine Appearance Urine pH Ur Specific [place] Urine Protein Urine Glucose (UA) Urine Ketones Urine Blood Urine Nitrite Ur Leukocyte Esterase Urine RBC Urine WBC Ur Squamous Epith Cells Ur Transition Epith Cell Ur Renal Epithelial Cell Urine Bacteria Hyaline Casts Granular Casts 01/21/23 01/21/23 01/22/23 19:47 23:58 02:01 MCV MCH MCHC RDW Plt Count MPV Absolute Nucleated RBC Nucleated RBC % (auto) Anion Gap Estim Creat Clear Calc Estimated GFR POC Glucose 106 78 67 Random Glucose Calcium Urine Color Urine Appearance Urine pH Ur Specific [place] Urine Protein Urine Glucose (UA) Urine Ketones Urine Blood Urine Nitrite Ur Leukocyte Esterase Urine RBC Urine WBC Ur Squamous Epith Cells Ur Transition Epith Cell Ur Renal Epithelial Cell Urine Bacteria Hyaline Casts Granular Casts 01/22/23 01/22/23 01/22/23 02:48 07:25 07:42 MCV 101.2 H MCH 30.6 MCHC 30.2 L RDW 13.1 Plt Count 226 MPV 10.6 Absolute Nucleated RBC 0.000 Nucleated RBC % (auto) 0.0 Anion Gap 15 Estim Creat Clear Calc 13.8 Estimated GFR 10 POC Glucose 134 H 122 H Random Glucose 122 H Calcium 9.0 Urine Color Urine Appearance Urine pH Ur Specific [place] Urine Protein Urine Glucose (UA) Urine Ketones Urine Blood Urine Nitrite Ur Leukocyte Esterase Urine RBC Urine WBC Ur Squamous Epith Cells Ur Transition Epith Cell Ur Renal Epithelial Cell Urine Bacteria Hyaline Casts Granular Casts Microbiology Microbiology Results: Microbiology 01/21/23 Unknown Urine Culture - Final Urine clean catch - Urine lawrence top No growth. Procedures Date of Service Date of Service: 01/22/23 Progress Note: A&P Assessment and plan (1) Acalculous cholecystitis: Status: Acute Plan As noted above, for IR gallbladder drainage today. Time Spent With Patient Time: Total time managing care of this patient today ____ minutes. Quality Stroke Does the patient have a stroke diagnosis?: No VTE Prior VTE?: No VTE Risk Level:: Medical - moderate - high VTE Device Contraindication: Treatment Not Indicated VTE Drug Contraindication: N/A - Med Ordered
--- NOTE | 2023-01-22 11:05 | PM.EVENT ---
Event Note Date of Service: 01/22/23 Event Note: Interventional Radiology Right IJ non tunneled dialysis catheter placed using US and Fluoro. Tip at cavoatrial junction. Ok for use. An additional request was made for placement of a cholecystostomy tube. Chart and imaging reviewed. While the gallbladder wall is edematous, the gallbladder lumen remains small. He is currently afebrile and not hypotensive. We have reached out to Medical attending to pursue a HIDA scan prior to any percutaneous procedure. Patient's will need dialysis prior to any intervention, which is being arranged. D/W Dr. Arboleda who agrees with plan Yuri DEAN Interventional Radiology Time Spent With Patient Time: Total time managing care of this patient today ____ minutes.
[2023-01-22 11:20] LABS: Glucose, Whole Blood 103 mg/dL (60-115)
--- NOTE | 2023-01-22 12:56 | MHC.CM.PN ---
IMM 01/22/23, PT ADMITTED W/RUQ PAIN, PT NOT STABLE FOR [facility] HOWEVER PLAN FOR DRAIN TODAY, PER HOSPITALIST PT WILL ALSO NEED PERMACATH FOR TEMPORARY HD. 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 PT'S GOAL IS HOME HOWEVER PT MAY NEED STR PENDING P.T./HOSPITAL COURSE. PCP IS LISA MADSEN, HCP SPOUSE NATASHA AND COPY ON FILE
[2023-01-22 13:30] LABS: HBc Num1 0.07 S/CO (0.00-0.79); HBsAGNum1 0.27 S/CO (0.00-0.99); Hepatitis B Core Antibody Nonreactive (Nonreactive); Hepatitis B Surface Antigen Negative (Negative); ~Hepatitis B Surface Antibody REACTIVE (Nonreactive)
[2023-01-22 13:33] LABS: Creatinine Urine 154.56 mg/dL
--- NOTE | 2023-01-22 13:39 | P.CONGS_ITS ---
History of Present Illness Consult details Consult date: 01/22/23 Narrative: 67-year-old gentleman well known to me with prior history of renal artery stenosis and chronic renal insufficiency. He a was actually scheduled for procedure on Saturday and presented to the hospital with acalculous cholecystitis. In addition he was noted to have Garry renal failure. He now presents to us for vascular evaluation. Review of Systems 2 Review of Systems: Yes all other systems are reviewed and are negative Constitutional: Constitutional: Reports no additional constitutional complaints ENT: Reports Normal hearing present Cardiovascular: Cardiovascular: Denies chest pain, Denies chest pain at rest, Denies chest pain with activity and Denies pedal edema Respiratory: Respiratory: Denies cough Gastrointestinal: Gastrointestinal: Denies abdominal pain Musculoskeletal: Musculoskeletal: Denies abnormal gait, Denies muscle cramps and Denies radiating pain into limb Integumentary/Breasts: Skin/Breast: Denies skin ulcer and Denies wounds Neurologic: Reports Normal hearing present and Denies abnormal gait Psychiatric: Psychiatric: Reports no additional psychiatric complaints PMFSH Past Medical History Medical History Erectile dysfunction CKD (chronic kidney disease) stage 3, GFR 30-59 ml/min (HFpEF) heart failure with preserved ejection fraction Osteomyelitis CKD stage 3 due to type 2 diabetes mellitus LIVE (iron deficiency anemia) Hyperlipidemia associated with type 2 diabetes mellitus Type 2 diabetes mellitus Kidney disease High cholesterol HTN (hypertension) Diabetes PAD (peripheral artery disease) Family History Family History Other No family history of coronary artery disease Surgical History Surgical History Status post transmetatarsal amputation of left foot Hx of amputation History of amputation of right forefoot H/O shoulder surgery Social History Social History Household Members: None Housing: Apartment Do you presently have visiting nurse or other home services: Yes ([employer] ONLY) Alcohol intake: current Alcohol intake frequency: a few times a month Alcohol type: beer Patient Tobacco Use Status: Never used Tobacco Tobacco use type: Cigarette Substance Use Type: Crack/Cocaine Advance Directives Date on File: 02/02/22 service: No Current occupational status: retired Meds Allergies Allergy/AdvReac Type Severity Reaction Status Date / Time metformin AdvReac Unknown Verified 01/17/23 14:04 Active Medications: Current Medications Acetaminophen (Acetaminophen Supp 650 Mg Supp.Rect) 650 mg DE Q6H PRN PRN Reason: Pain, Mild (Pain Scale 1-3) Acetaminophen (Acetaminophen 325 Mg Tablet) 650 mg PO Q6H PRN PRN Reason: Pain, Mild (Pain Scale 1-3) Last Admin: 01/22/23 08:15 Dose: 650 mg Dextrose (Dextrose 50 % 25 Gm/50 Ml Syringe) 25 gm IVPUSH Q15M PRN; Protocol PRN Reason: per Hypoglycemia Standing Ord. Last Admin: 01/22/23 02:26 Dose: 25 gm Glucose (Glucose Gel 15 Gm Gel..Gram.) 15 gm PO Q15M PRN; Protocol PRN Reason: per Hypoglycemia Standing Ord. Dextrose/Sodium Chloride (D5ns) 1,000 mls @ 80 mls/hr IVCONT .[id number] [facility] Last Admin: 01/22/23 05:04 Dose: 80 mls/hr Piperacillin Sod/Tazobactam (Sod 2.25 gm/ Sodium Chloride) 50 mls @ 100 mls/hr IV Q8H [facility] Last Infusion: 01/22/23 08:43 Dose: Infused Insulin Human Lispro (Insulin Lispro 100 Unit/Ml 3 Ml Vial) 0 unit SUBCUT Q6H [facility]; Protocol Last Admin: 01/22/23 08:04 Dose: Not Given Ondansetron HCl (Ondansetron Hcl 4 Mg/2 Ml Vial) 4 mg IVPUSH Q8H PRN PRN Reason: Nausea and Vomiting Sodium Chloride (0.9 % Sodium Chloride Flush 3 Ml Syringe) 3 ml IVFLUSH QSHIFT [facility] Last Admin: 01/22/23 08:14 Dose: 3 ml Home Medications Medication Instructions Recorded Confirmed Last Taken Type sertraline 50 mg tablet 50 mg PO DAILY 04/27/21 01/21/23 01/21/23 History nabumetone 500 mg tablet 500 mg PO BID 07/17/22 01/21/23 01/21/23 History albuterol sulfate 90 mcg/actuation 2 puff inhalation Q4H PRN Wheezing 01/13/23 01/21/23 Unknown History aerosol inhaler (Ventolin HFA) amlodipine 10 mg tablet 10 mg PO QPM 01/13/23 01/21/23 01/21/23 History aspirin 81 mg chewable tablet 1 tab PO QAM 01/13/23 01/21/23 01/21/23 History atorvastatin 80 mg tablet 80 mg PO BEDTIME 01/13/23 01/21/23 01/20/23 History docusate sodium 100 mg capsule 100 mg PO BEDTIME 01/13/23 01/21/23 01/20/23 History ezetimibe 10 mg tablet 10 mg PO QAM 01/13/23 01/21/23 01/21/23 History flash glucose scanning reader 01/13/23 01/21/23 Unknown History (FreeStyle Daniel 2 [place]) flash glucose sensor (FreeStyle 01/13/23 01/21/23 Unknown History Daniel 2 Sensor kit) fluticasone propionate 50 2 spray intranasal QAM PRN 01/13/23 01/21/23 Unknown History mcg/actuation nasal Congestion spray,suspension furosemide 40 mg tablet 40 mg PO BID 01/13/23 01/21/23 01/21/23 History gabapentin 300 mg capsule 300 mg PO QAM 01/13/23 01/21/23 01/21/23 History glipizide 10 mg tablet 10 mg PO BID 01/13/23 01/21/23 01/21/23 History hydralazine 50 mg tablet 100 mg PO TID 01/13/23 01/21/23 01/21/23 History insulin degludec 100 unit/mL (3 25 unit subcut DAILY 01/13/23 01/21/23 01/21/23 History mL) subcutaneous pen (Tresiba FlexTouch U-100 insulin) isosorbide mononitrate 60 mg 60 mg PO QAM 01/13/23 01/21/23 01/21/23 History tablet,extended release 24 hr losartan 50 mg tablet 100 mg PO QAM 01/13/23 01/21/23 01/21/23 History sitagliptin phosphate 100 mg 100 mg PO QAM 01/13/23 01/21/23 01/21/23 History tablet (Januvia) tamsulosin 0.4 mg capsule 0.4 mg PO QPM 01/13/23 01/21/23 01/20/23 History cholecalciferol (vitamin D3) 1,250 50,000 unit PO BEVERLY 01/21/23 01/21/23 01/20/23 History mcg (50,000 unit) capsule Physical Exam 2 Vital Signs: Vital Signs: Last Vital Signs Temp 98.7 F 01/22/23 11:02 Pulse 68 01/22/23 11:45 Resp 17 01/22/23 11:45 BP 148/68 H 01/22/23 11:45 Pulse Ox 98 01/22/23 11:45 O2 Del Method Nasal Cannula 01/22/23 11:45 O2 Flow Rate 2 01/22/23 11:45 BMI result Body Mass Index 33.5 Const: General: cooperative, healthy appearing and comfortable O rientation/consciousness: oriented to person, oriented to place and oriented to time HEENT: Head: Yes normal to inspection Neck: Neck: Yes normal visual inspection Carotids: no bruits Chest: Chest palpation & inspection: normal inspection of the chest Resp: Effort & Inspection: normal respiratory effort and able to speak in complete sentences Auscultation: clear to auscultation bilaterally, no crackles, no rales, no rhonchi and no wheezes Cardio: Rate: regular rate Rhythm: regular rhythm Heart sounds: S1 normal heart sound present and S2 normal heart sound present Bruits: no carotid bruits Peripheral pulses: Peripheral pulses 2+ throughout GI: Inspection: Yes normal to inspection Skin: Other: Right IJ dialysis catheter Wounds: no wounds Hair: normal Neuro: General: oriented to person, oriented to place and oriented to time Cranial nerves: Yes CN's II-XII intact bilaterally and Yes Normal hearing present Cognition (Neuro): normal cognition Motor exam (neuro): 5/5 motor strength present throughout Extrem: Other: venous exam: No significant superficial varicosities or spider telangiectasias, minimal edema General: No clubbing, No cyanosis and No edema Psych: Appearance: grossly normal Mental Status: mental status grossly normal Speech and movement: Normal speech and movement present Results Labs 01/22/23 07:25 01/22/23 07:25 Labs: Abnormal lab results 01/21/23 01/21/23 01/21/23 Range/Units 13:09 15:33 18:18 RBC (4.60-5.80) X10*6/uL Hgb (14.0-18.0) g/dl Hct (42.0-52.0) % MCV (80.0-98.0) fL MCHC (31.0-36.0) g/dl Potassium 6.4 H* 6.7 H* 6.0 H* (3.3-5.1) mmol/L Chloride 113 H 113 H 109 H (96-108) mmol/L Carbon Dioxide 19 L 21 L (22-29) mmol/L BUN 62 H 66 H 65 H (9-16) mg/dL Creatinine 4.95 H* 5.03 H* 5.38 H* (0.5-1.4) mg/dL POC Glucose (60-115) mg/dL Random Glucose (60-115) mg/dL 01/22/23 01/22/23 01/22/23 Range/Units 02:48 07:25 07:42 RBC 2.55 L (4.60-5.80) X10*6/uL Hgb 7.8 L (14.0-18.0) g/dl Hct 25.8 L (42.0-52.0) % MCV 101.2 H (80.0-98.0) fL MCHC 30.2 L (31.0-36.0) g/dl Potassium 5.9 H (3.3-5.1) mmol/L Chloride 113 H (96-108) mmol/L Carbon Dioxide (22-29) mmol/L BUN 65 H (9-16) mg/dL Creatinine 5.76 H* (0.5-1.4) mg/dL POC Glucose 134 H 122 H (60-115) mg/dL Random Glucose 122 H (60-115) mg/dL Short CBC 01/22/23 Range/Units 07:25 WBC 8.0 (4.8-10.8) X10*3/uL Hgb 7.8 L (14.0-18.0) g/dl Hct 25.8 L (42.0-52.0) % Plt Count 226 (160-400) X10*3/uL BMP 01/21/23 01/21/23 01/21/23 13:09 15:33 18:18 Sodium 139 140 140 Potassium 6.4 H* 6.7 H* 6.0 H* Chloride 113 H 113 H 109 H Carbon Dioxide 19 L 21 L 23 BUN 62 H 66 H 65 H Creatinine 4.95 H* 5.03 H* 5.38 H* Calcium 8.7 8.5 8.8 01/22/23 07:25 Sodium 144 Potassium 5.9 H Chloride 113 H Carbon Dioxide 22 BUN 65 H Creatinine 5.76 H* Calcium 9.0 Urine 01/21/23 Range/Units 12:12 Urine Color Dark Yellow Urine Appearance Turbid Urine pH 5.0 (5.0-9.0) Ur Specific [place] >= 1.030 H (1.005-1.025) Urine Protein >=1000 (4+) H (Neg-Trace) mg/dL Urine Glucose (UA) Negative (Negative) mg/dL All other labs normal. Assessment and Plan (1) Renal artery stenosis: Status: Acute In short patient has question of renal artery stenosis. At the current time would like gallbladder and renal failure issues to resolve. We can address this as an outpatient. We will continue to follow him with you. Thank you for allowing us to assist in his care. (2) Acute kidney injury superimposed on chronic kidney disease: Status: Acute Plan Patient is now requiring dialysis. He will need future permanent dialysis access. This can be scheduled as an outpatient. We will protect his left arm. Procedures Date of Service Date of Service: 01/22/23
--- NOTE | 2023-01-22 14:42 | PC.NURSE ---
Time 1311- Per Dr Vu, pt can go unmonitored to [facility]AN.
[2023-01-22] MEDS: oxyCODONE HCl Immed Release 5 MG TABLET PO (15:26)
[2023-01-22 16:19] LABS: Glucose, Whole Blood 78 mg/dL (60-115)
--- NOTE | 2023-01-22 17:23 | P.PNIM_ITS ---
Subjective Subjective Date of Service: 01/22/23 Interval History: Keya on CKD, hypertension, possible acalculous cholecystitis. Review of Systems Patient says that minimum pain in the right upper quadrant, no fever. No nausea or vomiting blood pressure improving Physical Exam 2 Vital Signs: Vital Signs: Last Vital Signs Temp 96.2 F L 01/22/23 15:35 Pulse 74 01/22/23 15:35 Resp 18 01/22/23 15:35 BP 155/71 H 01/22/23 15:35 Pulse Ox 96 01/22/23 15:35 O2 Del Method Nasal Cannula 01/22/23 15:35 O2 Flow Rate 2 01/22/23 15:35 BMI result Body Mass Index 33.5 Appearance: Alert.? Oriented X3.? . cvs: rrr, [id number] , no murmur res: clear to auscultation ,no rhonchii or wheezing abd: no rebound or guarding ,ruq minimum discomfort, bs present. ext pulses present , no cyanosis . neuro: axo3 , nonfocal. Objective Data Active Medications Acetaminophen (Acetaminophen Supp 650 Mg Supp.Rect) 650 mg GA Q6H PRN PRN Reason: Pain, Mild (Pain Scale 1-3) Acetaminophen (Acetaminophen 325 Mg Tablet) 650 mg PO Q6H PRN PRN Reason: Pain, Mild (Pain Scale 1-3) Last Admin: 01/22/23 08:15 Dose: 650 mg Documented By: THAO Dextrose (Dextrose 50 % 25 Gm/50 Ml Syringe) 25 gm IVPUSH Q15M PRN; Protocol PRN Reason: per Hypoglycemia Standing Ord. Last Admin: 01/22/23 02:26 Dose: 25 gm Documented By: ALAN Glucose (Glucose Gel 15 Gm Gel..Gram.) 15 gm PO Q15M PRN; Protocol PRN Reason: per Hypoglycemia Standing Ord. Dextrose/Sodium Chloride (D5ns) 1,000 mls @ 80 mls/hr IVCONT .[id number] [facility] Last Admin: 01/22/23 15:19 Dose: Not Given Documented By: THAO Non-Admin Reason: IV Running Piperacillin Sod/Tazobactam (Sod 2.25 gm/ Sodium Chloride) 50 mls @ 100 mls/hr IV Q8H [facility] Last Infusion: 01/22/23 15:57 Dose: Infused Documented By: THAO Insulin Human Lispro (Insulin Lispro 100 Unit/Ml 3 Ml Vial) 0 unit SUBCUT Q6H [facility]; Protocol Last Admin: 01/22/23 14:57 Dose: Not Given Documented By: THAO Non-Admin Reason: NPO Comments: Pt off unit at HIDA scan, continues to be NPO, last POC= 103 at 1115am Ondansetron HCl (Ondansetron Hcl 4 Mg/2 Ml Vial) 4 mg IVPUSH Q8H PRN PRN Reason: Nausea and Vomiting Sodium Chloride (0.9 % Sodium Chloride Flush 3 Ml Syringe) 3 ml IVFLUSH QSHIFT [facility] Last Admin: 01/22/23 15:27 Dose: 3 ml Documented By: THAO Labs 01/22/23 07:25 01/22/23 07:25 Labs: Laboratory Results - last 24 hr 01/21/23 01/21/23 01/21/23 16:34 18:14 18:18 MCV MCH MCHC RDW Plt Count MPV Absolute Nucleated RBC Nucleated RBC % (auto) Anion Gap 14 Estim Creat Clear Calc 14.7 Estimated GFR 11 POC Glucose 68 71 Random Glucose 72 Calcium 8.8 Ur Random Sodium Urine Creatinine Hep Bs Antigen Hep Bs Antibody Hep B Core Total Ab 01/21/23 01/21/23 01/22/23 19:47 23:58 02:01 MCV MCH MCHC RDW Plt Count MPV Absolute Nucleated RBC Nucleated RBC % (auto) Anion Gap Estim Creat Clear Calc Estimated GFR POC Glucose 106 78 67 Random Glucose Calcium Ur Random Sodium Urine Creatinine Hep Bs Antigen Hep Bs Antibody Hep B Core Total Ab 01/22/23 01/22/23 01/22/23 02:48 07:25 07:42 MCV 101.2 H MCH 30.6 MCHC 30.2 L RDW 13.1 Plt Count 226 MPV 10.6 Absolute Nucleated RBC 0.000 Nucleated RBC % (auto) 0.0 Anion Gap 15 Estim Creat Clear Calc 13.8 Estimated GFR 10 POC Glucose 134 H 122 H Random Glucose 122 H Calcium 9.0 Ur Random Sodium Urine Creatinine Hep Bs Antigen Hep Bs Antibody Hep B Core Total Ab 01/22/23 01/22/23 01/22/23 11:13 12:41 12:55 MCV MCH MCHC RDW Plt Count MPV Absolute Nucleated RBC Nucleated RBC % (auto) Anion Gap Estim Creat Clear Calc Estimated GFR POC Glucose 103 Random Glucose Calcium Ur Random Sodium 25.0 Urine Creatinine 154.56 Hep Bs Antigen Negative Hep Bs Antibody REACTIVE Hep B Core Total Ab Nonreactive 01/22/23 15:14 MCV MCH MCHC RDW Plt Count MPV Absolute Nucleated RBC Nucleated RBC % (auto) Anion Gap Estim Creat Clear Calc Estimated GFR POC Glucose 78 Random Glucose Calcium Ur Random Sodium Urine Creatinine Hep Bs Antigen Hep Bs Antibody Hep B Core Total Ab Microbiology Microbiology Results: Microbiology 01/21/23 08:03 Blood Culture - Preliminary Blood - Venous No growth after 24 hours. 01/21/23 07:55 Blood Culture - Preliminary Blood - Venous No growth after 24 hours. 01/21/23 Unknown Urine Culture - Final Urine clean catch - Urine lawrence top No growth. Assessment and Plan (1) Acute hyperkalemia: Status: Acute (2) Acalculous cholecystitis: Status: Acute Plan 67 yo M with multiple medical issues including DM type 2, s/p L BKA and R TMA, Stabe 3b CKD, HTN, HLD, HFpEF, Renal artery stenosis, LIVE, HLD and PAD who is being admitted for: KEYA on CKD 3b SCr around 2-2.5; now presenting with SCr of near5 with associated hyperK of 5.9 even after ivf ,alsolokelma 10mg x 2, ca gluconate, d50/insulin and albuterol inh yesterday added another dose loklema valerio Nephrology consult noted-c/w renal hypoperfusion form LOW BPs--> ischemic ATN vs pre-renal: hold bp meds nontunneled catheter for HD Blurred visions / hypotension: improved suspected BP secondary to low BP (normally the patient's BP 140s-180s); improving as his BP improved likely cause of his low BP is secondary to recent adjustments to his medications + underlying CHF and renal artery stenosis will hold antihypertensives for now and adjust slowly low BP is not due to severe sepsis. RUQ / possible acalculous antonia no leucocytosis or fevers ,ruq pain minimum continue empiric zosyn General surgery consult-continue iv antibiotics , need CCy IR -need dialysis prior to any intervention and hida which is ordered NPO for now surgery following- will need need IR drainage. DM with boderline flactuating fs: fs low range (78-120) continue on D5NS maintenance,added dextrose dose. monitor POC glucose ,hold insulin HFpEF, chronic currently ppears hypovoluemic -- given 1L NS and 25g albumin in the ED currently on maintenance fluids monitor closely Renal artery stenosis was to have surgery with vascular eval added. Anemia chronic, h/h at about baseline(7.8/25.8) monitor Med Rec pending, continue home meds as appropriate once completed Full Code DVT pptx - subcut heparin (to start after CCY ,So far continue [facility] devices-scd) ongoing hopsitlisation need: possible acalculous cholecystitis which may require surgical intervention, therefore expected to require at a minimum, 2 midnights in the hospital. Therefore, will be admitted as inpatient. Quality Stroke Does the patient have a stroke diagnosis?: No VTE Prior VTE?: No VTE Risk Level:: Medical - moderate - high VTE Device Contraindication: Treatment Not Indicated VTE Drug Contraindication: N/A - Med Ordered
[2023-01-22 18:16] LABS: Glucose, Whole Blood 140 mg/dL (60-115)
--- NOTE | 2023-01-22 19:23 | P.PNNP_ITS ---
Subjective Subjective Date of Service: 01/22/23 Interval history: seen and examined, events noted HD cath placed by IR for HD today x 2 hrs Physical Exam 2 Vital Signs: Vital Signs: Last Vital Signs Temp 96.2 F L 01/22/23 15:35 Pulse 74 01/22/23 15:35 Resp 18 01/22/23 15:35 BP 155/71 H 01/22/23 15:35 Pulse Ox 96 01/22/23 15:35 O2 Del Method Nasal Cannula 01/22/23 15:35 O2 Flow Rate 2 01/22/23 15:35 BMI result Body Mass Index 33.5 Const: Other: Constitutional - Awake and Alert, mild distress Eyes - PERRLA, EOMI Cardiovascular - S1S2, RRR, +pedal edema Respiratory - Normal lung expansion, Normal respiratory effort, No respiratory distress, CTA bilaterally Gastrointestinal - RUQ TTP without rebound or guarding - No CVA tenderness Extremities - L BKA, R TMA Musculoskeletal - Normal inspection, normal ROM Skin - Warm/Dry Neurological - Alert & oriented x3, No focal deficit Psychological - Appropriate affect General: comfortable, no acute distress and alert O rientation/consciousness: patient oriented x3 Resp: Effort & Inspection: normal respiratory effort Cardio: Rate: regular rate GI: Other: protuberant abdomen Palpation (GI): Soft to palpation and Tenderness to palpation present (GI) in the RUQ (marked tenderness ) and Ford's sign positive Percussion: Yes normal to percussion Skin: General skin exam: no rashes or lesions noted and no jaundice Neuro: General: patient oriented x3 and moves all extremities Objective Data Labs 01/22/23 07:25 01/22/23 07:25 Labs: Laboratory Results - last 24 hr 01/21/23 01/21/23 01/21/23 18:18 19:47 23:58 WBC RBC Hgb Hct MCV MCH MCHC RDW Plt Count MPV Absolute Nucleated RBC Nucleated RBC % (auto) Sodium 140 Potassium 6.0 H* Chloride 109 H Carbon Dioxide 23 Anion Gap 14 BUN 65 H Creatinine 5.38 H* Estim Creat Clear Calc 14.7 Estimated GFR 11 POC Glucose 106 78 Random Glucose 72 Calcium 8.8 Ur Random Sodium Urine Creatinine Hep Bs Antigen Hep Bs Antibody Hep B Core Total Ab 01/22/23 01/22/23 01/22/23 02:01 02:48 07:25 WBC 8.0 RBC 2.55 L Hgb 7.8 L Hct 25.8 L MCV 101.2 H MCH 30.6 MCHC 30.2 L RDW 13.1 Plt Count 226 MPV 10.6 Absolute Nucleated RBC 0.000 Nucleated RBC % (auto) 0.0 Sodium 144 Potassium 5.9 H Chloride 113 H Carbon Dioxide 22 Anion Gap 15 BUN 65 H Creatinine 5.76 H* Estim Creat Clear Calc 13.8 Estimated GFR 10 POC Glucose 67 134 H Random Glucose 122 H Calcium 9.0 Ur Random Sodium Urine Creatinine Hep Bs Antigen Hep Bs Antibody Hep B Core Total Ab 01/22/23 01/22/23 01/22/23 07:42 11:13 12:41 WBC RBC Hgb Hct MCV MCH MCHC RDW Plt Count MPV Absolute Nucleated RBC Nucleated RBC % (auto) Sodium Potassium Chloride Carbon Dioxide Anion Gap BUN Creatinine Estim Creat Clear Calc Estimated GFR POC Glucose 122 H 103 Random Glucose Calcium Ur Random Sodium Urine Creatinine Hep Bs Antigen Negative Hep Bs Antibody REACTIVE Hep B Core Total Ab Nonreactive 01/22/23 01/22/23 01/22/23 12:55 15:14 18:10 WBC RBC Hgb Hct MCV MCH MCHC RDW Plt Count MPV Absolute Nucleated RBC Nucleated RBC % (auto) Sodium Potassium Chloride Carbon Dioxide Anion Gap BUN Creatinine Estim Creat Clear Calc Estimated GFR POC Glucose 78 140 H Random Glucose Calcium Ur Random Sodium 25.0 Urine Creatinine 154.56 Hep Bs Antigen Hep Bs Antibody Hep B Core Total Ab Microbiology Microbiology Results: Microbiology 01/21/23 08:03 Blood - Venous Blood Culture - Preliminary No growth after 24 hours. 01/21/23 07:55 Blood - Venous Blood Culture - Preliminary No growth after 24 hours. 01/21/23 Unknown Urine clean catch - Urine lawrence top Urine Culture - Final No growth. Procedures Date of Service Date of Service: 01/22/23 Assessment & Plan Assessment and plan (1) Acute hyperkalemia: Status: Acute (2) Acute kidney injury superimposed on chronic kidney disease: Status: Acute Plan 1. Oliguric KEYA: c/w renal hypoperfusion form LOW BPs--> ischemic ATN vs pre- renal; IR to place HD cath and HD today 2. 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 Low BPs: d/t over medicated with BP meds vs sepsis and 3rd spacing of fluid 4. HyperK: d/t meds and KEYA 5. RUQ pain:acute antonia Disc: KEYA HD dependent for now and ques remains if KEYA recovery enough to come off HD REC: HD cath by IR and HD today and reassess tomorrow for possible HD in am; Surg re: cholecystis and need for drain etc.. Time Spent With Patient Time: Total time managing care of this patient today ____ minutes. Progress Note: Quality Stroke Does the patient have a stroke diagnosis?: No
[2023-01-22 19:27] LABS: Anion Gap 15 (12-20); Blood Urea Nitrogen 46 mg/dL (9-16); Calcium 8.4 mg/dL (8.4-10.2); Carbon Dioxide 20 mmol/L (22-29); Chloride 109 mmol/L (96-108); Creatinine Clr Calc Pharmacy 18.2; Estimated Glomerular Filt Rate 14; Glucose Random 139 mg/dL (60-115); Potassium 4.9 mmol/L (3.3-5.1); Sodium 139 mmol/L (135-145)
[2023-01-22 21:01] LABS: Glucose, Whole Blood 115 mg/dL (60-115)
[2023-01-23] VITALS (8 sets, daily range): BP systolic 154–194; BP diastolic 67–86; PULSE 72–78; RESP 16–20; TEMP 36.6–37.1; O2SAT 90–96
[2023-01-23 00:36] LABS: Glucose, Whole Blood 95 mg/dL (60-115)
[2023-01-23 01:58] LABS: Glucose, Whole Blood 88 mg/dL (60-115)
--- NOTE | 2023-01-23 07:43 | P.CDIM_ITS ---
PROVIDER RESPONSE TEXT: To clarify, the appropriate diagnosis supported by the clinical indicators: CKD Stage 4 QUERY TEXT: PHYSICIAN'S DOCUMENTATION REQUEST Date of Query: 01/22/2023 11:39 AM EST Patient Name: Kingsley Rivero Admit Date: 01/21/2023 Dear Juliocesar Vu, A review of the medical record indicates additional documentation may be needed. Please review below and update the documentation accordingly. Clinical Indicators: Nephrology note 01/21 - CKD 4 H&P noted- CKD 3B Please clarify which of the following accurately represents the patient's renal status: CKD Stage 3b CKD Stage 4 Other Other (explain) Clinically unable to determine (explain) Thank you, Lori Murray, CCS, CDIS Use of terms such as suspected, likely, concern for, or probable (associated with a specific diagnosi s that is being evaluated, monitored, or treated as if it exists) are acceptable and can be coded in the inpatient se tting, when documented at the time of discharge. Please use your independent medical judgment in providing your response. THIS QUERY IS PART OF THE PERMANENT MEDICAL RECORD
[2023-01-23 07:52] LABS: Hematocrit 23.5 % (42.0-52.0); Hemoglobin 7.3 g/dl (14.0-18.0)
[2023-01-23 07:54] LABS: Glucose, Whole Blood 73 mg/dL (60-115)
[2023-01-23] MEDS: Piperacillin Sodium/Tazobactam 2.25 GM in 0.9 % Sodium Chloride 50 ML IV ×3 (08:16→23:08)
[2023-01-23 08:23] LABS: Anion Gap 12 (12-20); Blood Urea Nitrogen 44 mg/dL (9-16); Calcium 8.4 mg/dL (8.4-10.2); Carbon Dioxide 23 mmol/L (22-29); Chloride 112 mmol/L (96-108); Creatinine Clr Calc Pharmacy 16.7; Estimated Glomerular Filt Rate 12; Glucose Random 83 mg/dL (60-115); Potassium 4.7 mmol/L (3.3-5.1); Sodium 142 mmol/L (135-145)
--- NOTE | 2023-01-23 09:03 | P.CDIM_ITS ---
PROVIDER RESPONSE TEXT: To clarify, the appropriate diagnosis supported by the clinical indicators: Other (explain): no sepsis QUERY TEXT: PHYSICIAN'S DOCUMENTATION REQUEST Date of Query: 01/23/2023 08:47 AM EST Patient Name: Kingsley Rivero Admit Date: 01/21/2023 Dear Juliocesar Vu, A review of the medical record indicates additional documentation may be needed. Please review below and update the documentation accordingly. Clinical indicators: Nephrology consultation note dated 01/22 - Plan: Low BP's: d/t over medicated with BP meds vs. Sepsis WBC 9.5 LA 0.8 Temp 96.2 HR 52 RR 18 Zosyn Please clarify the documentation of Sepsis: Sepsis remains a known or suspected condition Sepsis has been ruled out after review Other (explain) Clinically unable to determine (explain) Thank you, Lori Murray, CCS, CDIS Use of terms such as suspected, likely, concern for, or probable (associated with a specific diagnosi s that is being evaluated, monitored, or treated as if it exists) are acceptable and can be coded in the inpatient se tting, when documented at the time of discharge. Please use your independent medical judgment in providing your response. THIS QUERY IS PART OF THE PERMANENT MEDICAL RECORD
--- NOTE | 2023-01-23 09:16 | P.PNGS_ITS ---
<Statement entered by Bashir Briggs MD - 01/23/23 17:48> Spoke with pt's nurse this pm. Pt is still having 8/10 pain with IV analgesia.No IR drainage performed today. I discussed with Dr Vu the pt's situation.. He will obtain Cardiology consult for Risk stratification as well as with Nephrology for consideration for Laparoscopic cholecystectomy for tomorrow.Labs have normalized. Subjective Subjective Date of Service: 01/23/23 Interval history: Continues to c/o RUQ pain. Reports it is a little better since admission. Physical Exam 2 Vital Signs: Vital Signs: Last Vital Signs Temp 98.3 F 01/23/23 07:29 Pulse 77 01/23/23 07:29 Resp 20 01/23/23 07:29 BP 177/75 H 01/23/23 07:29 Pulse Ox 95 01/23/23 07:29 O2 Del Method Nasal Cannula 01/23/23 07:29 O2 Flow Rate 2 01/23/23 07:29 BMI result Body Mass Index 33.5 Const: General: comfortable, no acute distress and alert GI: Inspection: Yes distended Palpation (GI): Soft to palpation, Tenderness to palpation present (GI) in the RUQ (marked), no guarding and not rigid P ercussion: Yes normal to percussion Skin: General skin exam: no rashes or lesions noted and no jaundice Objective Data Active Medications Acetaminophen (Acetaminophen Supp 650 Mg Supp.Rect) 650 mg HI Q6H PRN PRN Reason: Pain, Mild (Pain Scale 1-3) Acetaminophen (Acetaminophen 325 Mg Tablet) 650 mg PO Q6H PRN PRN Reason: Pain, Mild (Pain Scale 1-3) Last Admin: 01/22/23 22:57 Dose: 650 mg Documented By: WILIAN Dextrose (Dextrose 50 % 25 Gm/50 Ml Syringe) 25 gm IVPUSH Q15M PRN; Protocol PRN Reason: per Hypoglycemia Standing Ord. Last Admin: 01/22/23 02:26 Dose: 25 gm Documented By: ALAN Glucose (Glucose Gel 15 Gm Gel..Gram.) 15 gm PO Q15M PRN; Protocol PRN Reason: per Hypoglycemia Standing Ord. Dextrose/Sodium Chloride (D5ns) 1,000 mls @ 80 mls/hr IVCONT .[id number] [facility] Last Admin: 01/22/23 23:02 Dose: 80 mls/hr Documented By: WILIAN Piperacillin Sod/Tazobactam (Sod 2.25 gm/ Sodium Chloride) 50 mls @ 100 mls/hr IV Q8H [facility] Last Infusion: 01/23/23 08:53 Dose: Infused Documented By: LAUREN Ondansetron HCl (Ondansetron Hcl 4 Mg/2 Ml Vial) 4 mg IVPUSH Q8H PRN PRN Reason: Nausea and Vomiting Sodium Chloride (0.9 % Sodium Chloride Flush 3 Ml Syringe) 3 ml IVFLUSH QSHIFT [facility] Last Admin: 01/23/23 07:43 Dose: Not Given Documented By: LAUREN Non-Admin Reason: IV Running Labs 01/23/23 07:05 01/23/23 07:05 Labs: Laboratory Results - last 24 hr 01/22/23 01/22/23 01/22/23 11:13 12:41 12:55 Anion Gap Estim Creat Clear Calc Estimated GFR POC Glucose 103 Random Glucose Calcium Ur Random Sodium 25.0 Urine Creatinine 154.56 Hep Bs Antigen Negative Hep Bs Antibody REACTIVE Hep B Core Total Ab Nonreactive 01/22/23 01/22/23 01/22/23 15:14 18:10 19:03 Anion Gap 15 Estim Creat Clear Calc 18.2 Estimated GFR 14 POC Glucose 78 140 H Random Glucose 139 H Calcium 8.4 D Ur Random Sodium Urine Creatinine Hep Bs Antigen Hep Bs Antibody Hep B Core Total Ab 01/22/23 01/22/23 01/23/23 20:22 23:09 01:54 Anion Gap Estim Creat Clear Calc Estimated GFR POC Glucose 115 95 88 Random Glucose Calcium Ur Random Sodium Urine Creatinine Hep Bs Antigen Hep Bs Antibody Hep B Core Total Ab 01/23/23 01/23/23 07:05 07:50 Anion Gap 12 Estim Creat Clear Calc 16.7 Estimated GFR 12 POC Glucose 73 Random Glucose 83 Calcium 8.4 Ur Random Sodium Urine Creatinine Hep Bs Antigen Hep Bs Antibody Hep B Core Total Ab Microbiology Microbiology Results: Microbiology 01/21/23 08:03 Blood Culture - Preliminary Blood - Venous No growth after 24 hours. 01/21/23 07:55 Blood Culture - Preliminary Blood - Venous No growth after 24 hours. 01/21/23 Unknown Urine Culture - Final Urine clean catch - Urine lawrence top No growth. Procedures Date of Service Date of Service: 01/23/23 Progress Note: A&P Assessment and plan (1) Acalculous cholecystitis: Status: Acute Plan HIDA yesterday shows patent cystic duct however he continues to c/o RUQ pain and remains significantly tender. Cont IV abx, would recommend IR drainage today. Time Spent With Patient Time: Total time managing care of this patient today ____ minutes. Quality Stroke Does the patient have a stroke diagnosis?: No VTE Prior VTE?: No VTE Risk Level:: Medical - moderate - high VTE Device Contraindication: Treatment Not Indicated VTE Drug Contraindication: N/A - Med Ordered
--- NOTE | 2023-01-23 09:31 | P.PNNP_ITS ---
Subjective Subjective Date of Service: 01/23/23 Interval history: seen and examined, events noted s/p HD last nite Looks better thsi am--belly pain decr Physical Exam 2 Vital Signs: Vital Signs: Last Vital Signs Temp 98.3 F 01/23/23 07:29 Pulse 77 01/23/23 07:29 Resp 20 01/23/23 07:29 BP 177/75 H 01/23/23 07:29 Pulse Ox 95 01/23/23 07:29 O2 Del Method Nasal Cannula 01/23/23 07:29 O2 Flow Rate 2 01/23/23 07:29 BMI result Body Mass Index 33.5 Const: Other: Constitutional - Awake and Alert, mild distress Eyes - PERRLA, EOMI Cardiovascular - S1S2, RRR, +pedal edema Respiratory - Normal lung expansion, Normal respiratory effort, No respiratory distress, CTA bilaterally Gastrointestinal - RUQ TTP without rebound or guarding - No CVA tenderness Extremities - L BKA, R TMA Musculoskeletal - Normal inspection, normal ROM Skin - Warm/Dry Neurological - Alert & oriented x3, No focal deficit Psychological - Appropriate affect General: comfortable, no acute distress and alert O rientation/consciousness: patient oriented x3 Resp: Effort & Inspection: normal respiratory effort Cardio: Rate: regular rate GI: Other: protuberant abdomen Palpation (GI): Soft to palpation and Tenderness to palpation present (GI) in the RUQ (marked tenderness ) and Ford's sign positive Percussion: Yes normal to percussion Skin: General skin exam: no rashes or lesions noted and no jaundice Neuro: General: patient oriented x3 and moves all extremities Objective Data Labs 01/23/23 07:05 01/23/23 07:05 Labs: Laboratory Results - last 24 hr 01/22/23 01/22/23 01/22/23 11:13 12:41 12:55 Hgb Hct Sodium Potassium Chloride Carbon Dioxide Anion Gap BUN Creatinine Estim Creat Clear Calc Estimated GFR POC Glucose 103 Random Glucose Calcium Ur Random Sodium 25.0 Urine Creatinine 154.56 Hep Bs Antigen Negative Hep Bs Antibody REACTIVE Hep B Core Total Ab Nonreactive 01/22/23 01/22/23 01/22/23 15:14 18:10 19:03 Hgb Hct Sodium 139 Potassium 4.9 Chloride 109 H Carbon Dioxide 20 L Anion Gap 15 BUN 46 H Creatinine 4.37 H* Estim Creat Clear Calc 18.2 Estimated GFR 14 POC Glucose 78 140 H Random Glucose 139 H Calcium 8.4 D Ur Random Sodium Urine Creatinine Hep Bs Antigen Hep Bs Antibody Hep B Core Total Ab 01/22/23 01/22/23 01/23/23 20:22 23:09 01:54 Hgb Hct Sodium Potassium Chloride Carbon Dioxide Anion Gap BUN Creatinine Estim Creat Clear Calc Estimated GFR POC Glucose 115 95 88 Random Glucose Calcium Ur Random Sodium Urine Creatinine Hep Bs Antigen Hep Bs Antibody Hep B Core Total Ab 01/23/23 01/23/23 07:05 07:50 Hgb 7.3 L Hct 23.5 L Sodium 142 Potassium 4.7 Chloride 112 H Carbon Dioxide 23 Anion Gap 12 BUN 44 H Creatinine 4.74 H* Estim Creat Clear Calc 16.7 Estimated GFR 12 POC Glucose 73 Random Glucose 83 Calcium 8.4 Ur Random Sodium Urine Creatinine Hep Bs Antigen Hep Bs Antibody Hep B Core Total Ab Microbiology Microbiology Results: Microbiology 01/21/23 08:03 Blood - Venous Blood Culture - Preliminary No growth after 24 hours. 01/21/23 07:55 Blood - Venous Blood Culture - Preliminary No growth after 24 hours. 01/21/23 Unknown Urine clean catch - Urine lawrence top Urine Culture - Final No growth. Procedures Date of Service Date of Service: 01/23/23 Assessment & Plan Assessment and plan (1) Acute hyperkalemia: Status: Acute (2) Acute kidney injury superimposed on chronic kidney disease: Status: Acute Plan 1. Oliguric--> Non-Oliguric KEYA: c/w renal hypoperfusion epidos from LOW BPs--> ischemic ATN vs pre-renal HOLD HD today and reassess tomorrow 2. 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 Low BPs: resolved; d/t over medicated with BP meds vs sepsis and 3rd spacing of fluid 4. HyperK: resolved 5. RUQ pain:much improved--surg eval Disc: KEYA HD x 1 and will monitor closleyfpr KEYA recovery enough to come off HD REC: HOLD HD today and reassess tomorrow for possible HD in am; avoid WAYNE/ARB or diuretics; Surg re: cholecystis and need for drain etc.. will follow w team Time Spent With Patient Time: Total time managing care of this patient today ____ minutes. Progress Note: Quality Stroke Does the patient have a stroke diagnosis?: No
[2023-01-23 10:03] LABS: Iron 54 mcg/dL (45-160); Percent Iron Saturation 26 % (15-50); Total Iron Binding Capacity 204 mcg/dL (228-428); Unsaturated Iron Binding 150 ug/dL
[2023-01-23 10:23] LABS: Ferritin 418 ng/mL (20-250)
--- NOTE | 2023-01-23 10:46 | MHC.CM.PN ---
EMR reviewed and per MD rounds, pt is not medically cleared for D/C today due to KEYA on HD since yesterday, and BP monitoring. CM will continue to follow.
[2023-01-23] MEDS: Dextrose 5 % and 0.9 % NaCl 1,000 ML 80 ML IVCONT ×2 (12:31→19:35)
[2023-01-23 13:11] LABS: Amphetamine Screen Urine Not Detected (Not Detect); Barbiturates, Urine Not Detected (Not Detect); Benzodiazepines Screen Urine Not Detected (Not Detect); Cannabinoid Screen Urine Not Detected (Not Detect); Cocaine Screen Urine Not Detected (Not Detect); Fentanyl, urine Not Detected (Not Detect); Opiate Screen Urine Not Detected (Not Detect); Phencyclidine Screen Urine Not Detected (Not Detect)
[2023-01-23 13:54] LABS: Glucose, Whole Blood 57 mg/dL (60-115)
[2023-01-23] MEDS: Dextrose 50 % 25 GM/50 ML SYRINGE IVPUSH (13:55)
[2023-01-23 14:45] LABS: Glucose, Whole Blood 111 mg/dL (60-115)
--- NOTE | 2023-01-23 16:33 | P.PNIM_ITS ---
Subjective Subjective Date of Service: 01/23/23 Interval History: Keya on CKD, hypertension, possible acalculous cholecystitis. Review of Systems mild pain in the right upper quadrant, no fever or No nausea or vomiting blood pressure improving he said he used cocaine 1-2 weeks back. Physical Exam 2 Vital Signs: Vital Signs: Last Vital Signs Temp 98.1 F 01/23/23 15:32 Pulse 78 01/23/23 15:32 Resp 16 01/23/23 15:32 BP 183/81 H 01/23/23 15:32 Pulse Ox 96 01/23/23 15:32 O2 Del Method Nasal Cannula 01/23/23 15:32 O2 Flow Rate 2 01/23/23 15:32 BMI result Body Mass Index 33.5 Appearance: Alert.? Oriented X3.? cvs: rrr, [id number] , no murmur res: clear to auscultation ,no rhonchii or wheezing abd: no rebound or guarding ,ruq minimum discomfort, bs present. ext pulses present , no cyanosis . neuro: axo3 , nonfocal. Objective Data Active Medications Acetaminophen (Acetaminophen Supp 650 Mg Supp.Rect) 650 mg [place] Q6H PRN PRN Reason: Pain, Mild (Pain Scale 1-3) Acetaminophen (Acetaminophen 325 Mg Tablet) 650 mg PO Q6H PRN PRN Reason: Pain, Mild (Pain Scale 1-3) Last Admin: 01/22/23 22:57 Dose: 650 mg Documented By: WILIAN Dextrose (Dextrose 50 % 25 Gm/50 Ml Syringe) 25 gm IVPUSH Q15M PRN; Protocol PRN Reason: per Hypoglycemia Standing Ord. Last Admin: 01/23/23 13:55 Dose: 25 gm Documented By: LAUREN Glucose (Glucose Gel 15 Gm Gel..Gram.) 15 gm PO Q15M PRN; Protocol PRN Reason: per Hypoglycemia Standing Ord. Dextrose/Sodium Chloride (D5ns) 1,000 mls @ 80 mls/hr IVCONT .[id number] [facility] Last Admin: 01/23/23 12:31 Dose: 80 mls/hr Documented By: LAUREN Piperacillin Sod/Tazobactam (Sod 2.25 gm/ Sodium Chloride) 50 mls @ 100 mls/hr IV Q8H [facility] Last Infusion: 01/23/23 15:55 Dose: Infused Documented By: TORIBIO Ondansetron HCl (Ondansetron Hcl 4 Mg/2 Ml Vial) 4 mg IVPUSH Q8H PRN PRN Reason: Nausea and Vomiting Sodium Chloride (0.9 % Sodium Chloride Flush 3 Ml Syringe) 3 ml IVFLUSH QSHIFT [facility] Last Admin: 01/23/23 14:27 Dose: Not Given Documented By: TORIBIO Non-Admin Reason: See Note Labs 01/23/23 07:05 01/23/23 07:05 Labs: Laboratory Results - last 24 hr 01/22/23 01/22/23 01/22/23 18:10 19:03 20:22 Anion Gap 15 Estim Creat Clear Calc 18.2 Estimated GFR 14 POC Glucose 140 H 115 Random Glucose 139 H Calcium 8.4 D Iron TIBC % Saturation Unsat Iron Binding Ferritin Urine Opiates Screen Urine Fentanyl Screen Ur Barbiturates Screen Ur Phencyclidine Scrn Ur Amphetamines Screen U Benzodiazepines Scrn Urine Cocaine Screen U Marijuana (THC) Screen 01/22/23 01/23/23 01/23/23 23:09 01:54 07:05 Anion Gap 12 Estim Creat Clear Calc 16.7 Estimated GFR 12 POC Glucose 95 88 Random Glucose 83 Calcium 8.4 Iron 54 TIBC 204 L % Saturation 26 Unsat Iron Binding 150 Ferritin 418 H Urine Opiates Screen Urine Fentanyl Screen Ur Barbiturates Screen Ur Phencyclidine Scrn Ur Amphetamines Screen U Benzodiazepines Scrn Urine Cocaine Screen U Marijuana (THC) Screen 01/23/23 01/23/23 01/23/23 07:50 13:50 14:41 Anion Gap Estim Creat Clear Calc Estimated GFR POC Glucose 73 57 L* 111 Random Glucose Calcium Iron TIBC % Saturation Unsat Iron Binding Ferritin Urine Opiates Screen Urine Fentanyl Screen Ur Barbiturates Screen Ur Phencyclidine Scrn Ur Amphetamines Screen U Benzodiazepines Scrn Urine Cocaine Screen U Marijuana (THC) Screen 01/23/23 Unknown Anion Gap Estim Creat Clear Calc Estimated GFR POC Glucose Random Glucose Calcium Iron TIBC % Saturation Unsat Iron Binding Ferritin Urine Opiates Screen Not Detected Urine Fentanyl Screen Not Detected Ur Barbiturates Screen Not Detected Ur Phencyclidine Scrn Not Detected Ur Amphetamines Screen Not Detected U Benzodiazepines Scrn Not Detected Urine Cocaine Screen Not Detected U Marijuana (THC) Screen Not Detected Microbiology Microbiology Results: Microbiology 01/21/23 08:03 Blood Culture - Preliminary Blood - Venous No growth after 48 hours. 01/21/23 07:55 Blood Culture - Preliminary Blood - Venous No growth after 48 hours. Assessment and Plan (1) Hypoglycemia: Status: Acute (2) Acalculous cholecystitis: Status: Acute Plan 67 yo M with multiple medical issues including DM type 2, s/p L BKA and R TMA, Stabe 3b CKD, HTN, HLD, HFpEF, Renal artery stenosis, LIVE, HLD and PAD who is being admitted for: KEYA on CKD 3b hyperkalemia seems improved with HD. Nephrology consult noted-c/w renal hypoperfusion form LOW BPs--> ischemic ATN vs pre-renal: nontunneled catheter for HD Blurred visions / hypotension: improved suspected BP secondary to low BP (normally the patient's BP 140s-180s); improving as his BP improved likely cause of his low BP is secondary to recent adjustments to his medications + underlying CHF and renal artery stenosis bp from yesterday in 150-180 range will add coreg and moniter if needed will adjust coreg or considering adding back amlodipine. RUQ / possible acalculous antonia no leucocytosis or fevers ,ruq pain minimum continue empiric zosyn General surgery consult-continue iv antibiotics , need CCy IR -need dialysis prior to any intervention and hida which is ordered NPO for now surgery following- will need need IR drainage. DM with boderline flactuating fs: fs low range continue on D5NS maintenance,and dextrose if needed . monitor POC glucose ,hold insulin if CCY drain not placed today-then will start him on clear liquids . HFpEF, chronic stable currently on maintenance fluids monitor closely Renal artery stenosis was to have surgery with vascular eval added. Anemia chronic, h/h at about baseline(7.8/25.8) monitor Med Rec pending, continue home meds as appropriate once completed Full Code DVT pptx - subcut heparin (to start after CCY ,So far continue [facility]-scd) ongoing hopsitlisation need: possible acalculous cholecystitis which may require surgical intervention, therefore expected to require at a minimum, 2 midnights in the hospital. Therefore, will be admitted as inpatient. Quality Stroke Does the patient have a stroke diagnosis?: No VTE Prior VTE?: No VTE Risk Level:: Medical - moderate - high VTE Device Contraindication: Treatment Not Indicated VTE Drug Contraindication: N/A - Med Ordered
--- NOTE | 2023-01-23 17:00 | HO.ADDICT_ITS ---
History of Present Illness Date of Service: 01/23/2023 Chief Complaint: RUQ pain Reason for Consult: cocaine use Sources of Information: patient interviewed and chart reviewed HPI Narrative: Patient is a 67 year old Gambian speaking male currently medically admitted with Diagnostics Vital Signs (24Hr): Vital Signs - 24 hr 01/22/23 19:40 01/22/23 23:10 01/23/23 03:59 Temperature 97.5 F 97.4 F 98.0 F Pulse Rate 69 88 73 Respiratory Rate 18 18 20 Blood Pressure 166/75 H 185/77 H 154/67 H Pulse Oximetry 98 98 95 Oxygen Delivery Method Nasal Cannula Nasal Cannula Nasal Cannula Oxygen Flow Rate 2 2 2 01/23/23 07:29 01/23/23 11:04 01/23/23 15:32 Temperature 98.3 F 98.8 F 98.1 F Pulse Rate 77 72 78 Respiratory Rate 20 18 16 Blood Pressure 177/75 H 166/75 H 183/81 H Pulse Oximetry 95 94 96 Oxygen Delivery Method Nasal Cannula Nasal Cannula Nasal Cannula Oxygen Flow Rate 2 2 2 BMI result Body Mass Index 33.5 Labs 01/23/23 07:05 01/23/23 07:05 Labs: Laboratory Results - last 48 hr 01/21/23 01/21/23 01/21/23 16:34 18:14 18:18 WBC RBC Hgb Hct MCV MCH MCHC RDW Plt Count MPV Absolute Nucleated RBC Nucleated RBC % (auto) Sodium 140 Potassium 6.0 H* Chloride 109 H Carbon Dioxide 23 Anion Gap 14 BUN 65 H Creatinine 5.38 H* Estim Creat Clear Calc 14.7 Estimated GFR 11 POC Glucose 68 71 Random Glucose 72 Calcium 8.8 Iron TIBC % Saturation Unsat Iron Binding Ferritin Ur Random Sodium Urine Creatinine Urine Opiates Screen Urine Fentanyl Screen Ur Barbiturates Screen Ur Phencyclidine Scrn Ur Amphetamines Screen U Benzodiazepines Scrn Urine Cocaine Screen U Marijuana (THC) Screen Hep Bs Antigen Hep Bs Antibody Hep B Core Total Ab 01/21/23 01/21/23 01/22/23 19:47 23:58 02:01 WBC RBC Hgb Hct MCV MCH MCHC RDW Plt Count MPV Absolute Nucleated RBC Nucleated RBC % (auto) Sodium Potassium Chloride Carbon Dioxide Anion Gap BUN Creatinine Estim Creat Clear Calc Estimated GFR POC Glucose 106 78 67 Random Glucose Calcium Iron TIBC % Saturation Unsat Iron Binding Ferritin Ur Random Sodium Urine Creatinine Urine Opiates Screen Urine Fentanyl Screen Ur Barbiturates Screen Ur Phencyclidine Scrn Ur Amphetamines Screen U Benzodiazepines Scrn Urine Cocaine Screen U Marijuana (THC) Screen Hep Bs Antigen Hep Bs Antibody Hep B Core Total Ab 01/22/23 01/22/23 01/22/23 02:48 07:25 07:42 WBC 8.0 RBC 2.55 L Hgb 7.8 L Hct 25.8 L MCV 101.2 H MCH 30.6 MCHC 30.2 L RDW 13.1 Plt Count 226 MPV 10.6 Absolute Nucleated RBC 0.000 Nucleated RBC % (auto) 0.0 Sodium 144 Potassium 5.9 H Chloride 113 H Carbon Dioxide 22 Anion Gap 15 BUN 65 H Creatinine 5.76 H* Estim Creat Clear Calc 13.8 Estimated GFR 10 POC Glucose 134 H 122 H Random Glucose 122 H Calcium 9.0 Iron TIBC % Saturation Unsat Iron Binding Ferritin Ur Random Sodium Urine Creatinine Urine Opiates Screen Urine Fentanyl Screen Ur Barbiturates Screen Ur Phencyclidine Scrn Ur Amphetamines Screen U Benzodiazepines Scrn Urine Cocaine Screen U Marijuana (THC) Screen Hep Bs Antigen Hep Bs Antibody Hep B Core Total Ab 01/22/23 01/22/23 01/22/23 11:13 12:41 12:55 WBC RBC Hgb Hct MCV MCH MCHC RDW Plt Count MPV Absolute Nucleated RBC Nucleated RBC % (auto) Sodium Potassium Chloride Carbon Dioxide Anion Gap BUN Creatinine Estim Creat Clear Calc Estimated GFR POC Glucose 103 Random Glucose Calcium Iron TIBC % Saturation Unsat Iron Binding Ferritin Ur Random Sodium 25.0 Urine Creatinine 154.56 Urine Opiates Screen Urine Fentanyl Screen Ur Barbiturates Screen Ur Phencyclidine Scrn Ur Amphetamines Screen U Benzodiazepines Scrn Urine Cocaine Screen U Marijuana (THC) Screen Hep Bs Antigen Negative Hep Bs Antibody REACTIVE Hep B Core Total Ab Nonreactive 01/22/23 01/22/23 01/22/23 15:14 18:10 19:03 WBC RBC Hgb Hct MCV MCH MCHC RDW Plt Count MPV Absolute Nucleated RBC Nucleated RBC % (auto) Sodium 139 Potassium 4.9 Chloride 109 H Carbon Dioxide 20 L Anion Gap 15 BUN 46 H Creatinine 4.37 H* Estim Creat Clear Calc 18.2 Estimated GFR 14 POC Glucose 78 140 H Random Glucose 139 H Calcium 8.4 D Iron TIBC % Saturation Unsat Iron Binding Ferritin Ur Random Sodium Urine Creatinine Urine Opiates Screen Urine Fentanyl Screen Ur Barbiturates Screen Ur Phencyclidine Scrn Ur Amphetamines Screen U Benzodiazepines Scrn Urine Cocaine Screen U Marijuana (THC) Screen Hep Bs Antigen Hep Bs Antibody Hep B Core Total Ab 01/22/23 01/22/23 01/23/23 20:22 23:09 01:54 WBC RBC Hgb Hct MCV MCH MCHC RDW Plt Count MPV Absolute Nucleated RBC Nucleated RBC % (auto) Sodium Potassium Chloride Carbon Dioxide Anion Gap BUN Creatinine Estim Creat Clear Calc Estimated GFR POC Glucose 115 95 88 Random Glucose Calcium Iron TIBC % Saturation Unsat Iron Binding Ferritin Ur Random Sodium Urine Creatinine Urine Opiates Screen Urine Fentanyl Screen Ur Barbiturates Screen Ur Phencyclidine Scrn Ur Amphetamines Screen U Benzodiazepines Scrn Urine Cocaine Screen U Marijuana (THC) Screen Hep Bs Antigen Hep Bs Antibody Hep B Core Total Ab 01/23/23 01/23/23 01/23/23 07:05 07:50 13:50 WBC RBC Hgb 7.3 L Hct 23.5 L MCV MCH MCHC RDW Plt Count MPV Absolute Nucleated RBC Nucleated RBC % (auto) Sodium 142 Potassium 4.7 Chloride 112 H Carbon Dioxide 23 Anion Gap 12 BUN 44 H Creatinine 4.74 H* Estim Creat Clear Calc 16.7 Estimated GFR 12 POC Glucose 73 57 L* Random Glucose 83 Calcium 8.4 Iron 54 TIBC 204 L % Saturation 26 Unsat Iron Binding 150 Ferritin 418 H Ur Random Sodium Urine Creatinine Urine Opiates Screen Urine Fentanyl Screen Ur Barbiturates Screen Ur Phencyclidine Scrn Ur Amphetamines Screen U Benzodiazepines Scrn Urine Cocaine Screen U Marijuana (THC) Screen Hep Bs Antigen Hep Bs Antibody Hep B Core Total Ab 01/23/23 01/23/23 14:41 Unknown WBC RBC Hgb Hct MCV MCH MCHC RDW Plt Count MPV Absolute Nucleated RBC Nucleated RBC % (auto) Sodium Potassium Chloride Carbon Dioxide Anion Gap BUN Creatinine Estim Creat Clear Calc Estimated GFR POC Glucose 111 Random Glucose Calcium Iron TIBC % Saturation Unsat Iron Binding Ferritin Ur Random Sodium Urine Creatinine Urine Opiates Screen Not Detected Urine Fentanyl Screen Not Detected Ur Barbiturates Screen Not Detected Ur Phencyclidine Scrn Not Detected Ur Amphetamines Screen Not Detected U Benzodiazepines Scrn Not Detected Urine Cocaine Screen Not Detected U Marijuana (THC) Screen Not Detected Hep Bs Antigen Hep Bs Antibody Hep B Core Total Ab Imaging Radiology Impressions: ITS Impressions Head CT 01/21/23 07:40 IMPRESSION: No acute intracranial pathology. Right subdural hygroma. This critical result was discussed with Dr. Johnston at 0746 hours on 01/21/2023. It was ascertained that the content and urgency of the report was understood at the time of direct communication. Abdomen/Pelvis CT 01/21/23 08:01 IMPRESSION: Marked gallbladder wall thickening and gallbladder wall edema. Trace perihepatic free fluid. Correlation should be made with right upper quadrant ultrasound. Wall thickening of the urinary bladder despite underdistention. Advise correlation with urinalysis. Moderate right pleural effusion. Small left pleural effusion. 4 mm left upper lobe pulmonary nodule. Follow-up chest CT in 12 months is advised. Chest CT 01/21/23 08:01 IMPRESSION: Marked gallbladder wall thickening and gallbladder wall edema. Trace perihepatic free fluid. Correlation should be made with right upper quadrant ultrasound. Wall thickening of the urinary bladder despite underdistention. Advise correlation with urinalysis. Moderate right pleural effusion. Small left pleural effusion. 4 mm left upper lobe pulmonary nodule. Follow-up chest CT in 12 months is advised. Abdomen Ultrasound 01/21/23 09:46 IMPRESSION: Findings suggestive of acute inflammation of the gallbladder. No gallstones are visible. This may represent acute acalculous cholecystitis. Consider surgical consultation. Hepatobiliary Scan Nuclear Medicine 01/22/23 15:45 IMPRESSION: Visualization of the gallbladder is evidence of a patent cystic duct and strong evidence against the diagnosis of acute cholecystitis. The common bile duct is patent. Gallbladder emptying and ejection fraction are normal. Liver function appears normal. Medications Medications Current Medications Acetaminophen (Acetaminophen Supp 650 Mg Supp.Rect) 650 mg [place] Q6H PRN PRN Reason: Pain, Mild (Pain Scale 1-3) Acetaminophen (Acetaminophen 325 Mg Tablet) 650 mg PO Q6H PRN PRN Reason: Pain, Mild (Pain Scale 1-3) Last Admin: 01/22/23 22:57 Dose: 650 mg Carvedilol (Carvedilol 12.5 Mg Tablet) 12.5 mg PO BID ANNABELLA; Protocol Dextrose (Dextrose 50 % 25 Gm/50 Ml Syringe) 25 gm IVPUSH Q15M PRN; Protocol PRN Reason: per Hypoglycemia Standing Ord. Last Admin: 01/23/23 13:55 Dose: 25 gm Glucose (Glucose Gel 15 Gm Gel..Gram.) 15 gm PO Q15M PRN; Protocol PRN Reason: per Hypoglycemia Standing Ord. Dextrose/Sodium Chloride (D5ns) 1,000 mls @ 80 mls/hr IVCONT .[id number] [facility] Last Admin: 01/23/23 12:31 Dose: 80 mls/hr Piperacillin Sod/Tazobactam (Sod 2.25 gm/ Sodium Chloride) 50 mls @ 100 mls/hr IV Q8H [facility] Last Infusion: 01/23/23 15:55 Dose: Infused Ondansetron HCl (Ondansetron Hcl 4 Mg/2 Ml Vial) 4 mg IVPUSH Q8H PRN PRN Reason: Nausea and Vomiting Sodium Chloride (0.9 % Sodium Chloride Flush 3 Ml Syringe) 3 ml IVFLUSH QSHIFT [facility] Last Admin: 01/23/23 14:27 Dose: Not Given Allergies Allergies Allergy/AdvReac Type Severity Reaction Status Date / Time metformin AdvReac Unknown Verified 01/17/23 14:04 Assessment & Plan Assessment & Plan (1) Cocaine use disorder: Status: Acute Code(s): F14.10 - Cocaine abuse, uncomplicated Assessment and Plan: * agreeable to Gambian speaking IOP information--will provide in AM * agreeable to meeting with manager recovery during hospital stay --will refer for evening * risk reduction discussion related to ongoing cocaine use and comorbid conditions Total time managing care of this patient today _35___ minutes. PMFSH Past Medical History Medical History Erectile dysfunction CKD (chronic kidney disease) stage 3, GFR 30-59 ml/min (HFpEF) heart failure with preserved ejection fraction Osteomyelitis CKD stage 3 due to type 2 diabetes mellitus LIVE (iron deficiency anemia) Hyperlipidemia associated with type 2 diabetes mellitus Type 2 diabetes mellitus Kidney disease High cholesterol HTN (hypertension) Diabetes PAD (peripheral artery disease) Family History Family History Other No family history of coronary artery disease Surgical History Surgical History Status post transmetatarsal amputation of left foot Hx of amputation History of amputation of right forefoot H/O shoulder surgery Social History Social History Household Members: None Housing: Apartment Do you presently have visiting nurse or other home services: Yes ([employer] ONLY) Alcohol intake: current Alcohol intake frequency: a few times a month Alcohol type: beer Patient Tobacco Use Status: Never used Tobacco Tobacco use type: Cigarette Substance Use Type: Crack/Cocaine Advance Directives Date on File: 02/02/22 service: No Current occupational status: retired
[2023-01-23 18:33] LABS: Glucose, Whole Blood 150 mg/dL (60-115)
[2023-01-23] MEDS: carvediloL 12.5 MG TABLET PO (19:35)
[2023-01-23] MEDS: 0.9 % Sodium Chloride Flush 3 ML SYRINGE IVFLUSH (19:35)
[2023-01-23 23:34] LABS: Glucose, Whole Blood 104 mg/dL (60-115)
[2023-01-24] VITALS (20 sets, daily range): BP systolic 160–219; BP diastolic 70–111; PULSE 65–87; RESP 15–26; TEMP 36.2–36.7; O2SAT 90–97
[2023-01-24] MEDS: Dextrose 5 % and 0.9 % NaCl 1,000 ML 80 ML IVCONT (00:01)
[2023-01-24 05:38] LABS: Glucose, Whole Blood 71 mg/dL (60-115)
[2023-01-24] MEDS: Piperacillin Sodium/Tazobactam 2.25 GM in 0.9 % Sodium Chloride 50 ML IV ×2 (06:12→17:20)
[2023-01-24] MEDS: Albuterol/Iprat 2.5/0.5MG 3 ML AMPUL.NEB INHALE ×3 (06:15→20:08)
--- NOTE | 2023-01-24 08:33 | PM.PNGS ---
Subjective Subjective Date of Service: 01/24/23 Interval history: Uneventful evening. Patient is still having right upper quadrant localized pain. Physical Exam Vital Signs: Vital Signs: Last Vital Signs Temp 97.6 F 01/24/23 07:12 Pulse 73 01/24/23 07:12 Resp 18 01/24/23 07:12 BP 160/70 H 01/24/23 07:12 Pulse Ox 94 01/24/23 07:12 O2 Del Method Nasal Cannula 01/24/23 07:12 O2 Flow Rate 2 01/24/23 07:12 BMI result Body Mass Index 33.5 GI: Other: Marked right upper quadrant tenderness and positive Ford sign. Corpulent abdomen. Otherwise soft. Objective Data Active Medications Acetaminophen (Acetaminophen Supp 650 Mg Supp.Rect) 650 mg [place] Q6H PRN PRN Reason: Pain, Mild (Pain Scale 1-3) Acetaminophen (Acetaminophen 325 Mg Tablet) 650 mg PO Q6H PRN PRN Reason: Pain, Mild (Pain Scale 1-3) Last Admin: 01/22/23 22:57 Dose: 650 mg Documented By: WILIAN Albuterol/Ipratropium (Albuterol/Iprat 2.5/0.5mg 3 Ml Ampul.Neb) 3 ml INHALE Q4H PRN PRN Reason: Wheezing Last Admin: 01/24/23 06:15 Dose: 3 ml Documented By: ROBBIN Carvedilol (Carvedilol 25 Mg Tablet) 25 mg PO BID [facility]; Protocol Dextrose (Dextrose 50 % 25 Gm/50 Ml Syringe) 25 gm IVPUSH Q15M PRN; Protocol PRN Reason: per Hypoglycemia Standing Ord. Last Admin: 01/23/23 13:55 Dose: 25 gm Documented By: LAUREN Glucose (Glucose Gel 15 Gm Gel..Gram.) 15 gm PO Q15M PRN; Protocol PRN Reason: per Hypoglycemia Standing Ord. Piperacillin Sod/Tazobactam (Sod 2.25 gm/ Sodium Chloride) 50 mls @ 100 mls/hr IV Q8H [facility] Last Infusion: 01/24/23 06:42 Dose: Infused Documented By: ROBBIN Dextrose/Sodium Chloride (D5ns) 1,000 mls @ 80 mls/hr IVCONT .[id number] [facility] Last Admin: 01/24/23 00:01 Dose: 80 mls/hr Documented By: ROBBIN Ondansetron HCl (Ondansetron Hcl 4 Mg/2 Ml Vial) 4 mg IVPUSH Q8H PRN PRN Reason: Nausea and Vomiting Sodium Chloride (0.9 % Sodium Chloride Flush 3 Ml Syringe) 3 ml IVFLUSH QSHIFT ANNABELLA Last Admin: 01/23/23 19:35 Dose: 3 ml Documented By: ROBBIN Labs 01/23/23 07:05 01/23/23 07:05 Labs: Laboratory Results - last 24 hr 01/23/23 01/23/23 01/23/23 07:05 13:50 14:41 POC Glucose 57 L* 111 Iron 54 TIBC 204 L % Saturation 26 Unsat Iron Binding 150 Ferritin 418 H Urine Opiates Screen Urine Fentanyl Screen Ur Barbiturates Screen Ur Phencyclidine Scrn Ur Amphetamines Screen U Benzodiazepines Scrn Urine Cocaine Screen U Marijuana (THC) Screen 01/23/23 01/23/23 01/23/23 18:27 23:31 Unknown POC Glucose 150 H 104 Iron TIBC % Saturation Unsat Iron Binding Ferritin Urine Opiates Screen Not Detected Urine Fentanyl Screen Not Detected Ur Barbiturates Screen Not Detected Ur Phencyclidine Scrn Not Detected Ur Amphetamines Screen Not Detected U Benzodiazepines Scrn Not Detected Urine Cocaine Screen Not Detected U Marijuana (THC) Screen Not Detected 01/24/23 05:34 POC Glucose 71 Iron TIBC % Saturation Unsat Iron Binding Ferritin Urine Opiates Screen Urine Fentanyl Screen Ur Barbiturates Screen Ur Phencyclidine Scrn Ur Amphetamines Screen U Benzodiazepines Scrn Urine Cocaine Screen U Marijuana (THC) Screen Microbiology Microbiology Results: Microbiology 01/21/23 08:03 Blood Culture - Preliminary Blood - Venous No growth after 48 hours. 01/21/23 07:55 Blood Culture - Preliminary Blood - Venous No growth after 48 hours. Procedures Date of Service Date of Service: 01/24/23 Progress Note: A&P Assessment and plan (1) Acalculous cholecystitis: Status: Acute Plan Patient is tentatively scheduled for IR gallbladder tube drainage. If this cannot be arranged or is unsuccessful, patient will be considered for laparoscopic cholecystectomy today. Time Spent With Patient Time: Total time managing care of this patient today ____ minutes. Quality Stroke Does the patient have a stroke diagnosis?: No VTE Prior VTE?: No VTE Risk Level:: Medical - moderate - high VTE Device Contraindication: Treatment Not Indicated VTE Drug Contraindication: N/A - Med Ordered
[2023-01-24] MEDS: 0.9 % Sodium Chloride Flush 3 ML SYRINGE IVFLUSH (08:40)
[2023-01-24] MEDS: carvediloL 25 MG TABLET PO ×2 (08:40→20:55)
[2023-01-24 09:11] LABS: Hematocrit 23.5 % (42.0-52.0); Hemoglobin 7.6 g/dl (14.0-18.0)
[2023-01-24 09:31] LABS: Anion Gap 11 (12-20); Blood Urea Nitrogen 41 mg/dL (9-16); Calcium 8.6 mg/dL (8.4-10.2); Carbon Dioxide 22 mmol/L (22-29); Chloride 114 mmol/L (96-108); Creatinine Clr Calc Pharmacy 17.4; Estimated Glomerular Filt Rate 13; Glucose Random 102 mg/dL (60-115); Potassium 4.3 mmol/L (3.3-5.1); Sodium 143 mmol/L (135-145)
[2023-01-24 11:24] LABS: Glucose, Whole Blood 95 mg/dL (60-115)
[2023-01-24 14:17] LABS: Glucose, Whole Blood 97 mg/dL (60-115)
--- NOTE | 2023-01-24 14:22 | MHC.RECOVRN ---
Pt provided with IOP resources in Ethiopian. Plan to meet with recovery manager this evening.
--- NOTE | 2023-01-24 14:25 | PC.NURSE ---
radiology department updated regarding patient's BP since [facility]. see documentation. Also updated it is evident that patient is using accessory muscles for breathing. 95% on 2L. wet cough noted often with no sputum. no sounds in left lower base, others are all diminished. dr. thompson to assess patient soon in short stay.
--- NOTE | 2023-01-24 14:41 | PC.NURSE ---
IV from the floor is a 20 gauge to right forearm. Patent and flushes with ease.
--- NOTE | 2023-01-24 14:44 | PC.NURSE ---
Dr. Rivas to short stay to assess patient regarding previous notes. Also, Dr. Vu updated per radiology nurse request.
--- NOTE | 2023-01-24 14:57 | PC.NURSE ---
Dr. Rivas assessed patient and ultrasound done at bedside. Decision made to do procedure under local. Dr. Hernandez updated to tiger text Dr. Rivas.
--- NOTE | 2023-01-24 16:20 | P.PNIM_ITS ---
Subjective Subjective Date of Service: 01/24/23 Interval History: uncontrolled htn Review of Systems patient is c/o some sob this afternoon,denies any chest pain still has ruq pain htn uncontrolled Physical Exam 2 Vital Signs: Vital Signs: Last Vital Signs Temp 98.1 F 01/24/23 13:50 Pulse 66 01/24/23 13:50 Resp 16 01/24/23 13:50 BP 211/94 H 01/24/23 14:20 Pulse Ox 95 01/24/23 13:50 O2 Del Method Nasal Cannula 01/24/23 13:50 O2 Flow Rate 2 01/24/23 13:50 BMI result Body Mass Index 33.5 Appearance: Alert.? Oriented X3.?some sob cvs: rrr, [id number] , no murmur res: air entry fair ,dimished at bases ,did not hear rales ( poor respiratory effort). abd: no rebound or guarding ,ruq minimum discomfort, bs present. ext pulses present , no cyanosis . neuro: axo3 , nonfocal. Objective Data Active Medications Acetaminophen (Acetaminophen Supp 650 Mg Supp.Rect) 650 mg [place] Q6H PRN PRN Reason: Pain, Mild (Pain Scale 1-3) Acetaminophen (Acetaminophen 325 Mg Tablet) 650 mg PO Q6H PRN PRN Reason: Pain, Mild (Pain Scale 1-3) Last Admin: 01/22/23 22:57 Dose: 650 mg Documented By: WILIAN Albuterol/Ipratropium (Albuterol/Iprat 2.5/0.5mg 3 Ml Ampul.Neb) 3 ml INHALE Q4H PRN PRN Reason: Wheezing Last Admin: 01/24/23 06:15 Dose: 3 ml Documented By: ROBBIN Carvedilol (Carvedilol 25 Mg Tablet) 25 mg PO BID [facility]; Protocol Last Admin: 01/24/23 08:40 Dose: 25 mg Documented By: FLACA Dextrose (Dextrose 50 % 25 Gm/50 Ml Syringe) 25 gm IVPUSH Q15M PRN; Protocol PRN Reason: per Hypoglycemia Standing Ord. Last Admin: 01/23/23 13:55 Dose: 25 gm Documented By: LAURNE Glucose (Glucose Gel 15 Gm Gel..Gram.) 15 gm PO Q15M PRN; Protocol PRN Reason: per Hypoglycemia Standing Ord. Piperacillin Sod/Tazobactam (Sod 2.25 gm/ Sodium Chloride) 50 mls @ 100 mls/hr IV Q8H [facility] Last Infusion: 01/24/23 06:42 Dose: Infused Documented By: ROBBIN Dextrose/Sodium Chloride (D5ns) 1,000 mls @ 80 mls/hr IVCONT .[id number] [facility] Last Infusion: 01/24/23 14:01 Dose: Infused Documented By: FLACA Ondansetron HCl (Ondansetron Hcl 4 Mg/2 Ml Vial) 4 mg IVPUSH Q8H PRN PRN Reason: Nausea and Vomiting Sodium Chloride (0.9 % Sodium Chloride Flush 3 Ml Syringe) 3 ml IVFLUSH QSHIFT [facility] Last Admin: 01/24/23 08:40 Dose: 3 ml Documented By: FLACA Labs 01/24/23 08:38 01/24/23 08:38 Labs: Laboratory Results - last 24 hr 01/23/23 01/23/23 01/24/23 18:27 23:31 05:34 Anion Gap Estim Creat Clear Calc Estimated GFR POC Glucose 150 H 104 71 Random Glucose Calcium Blood Type Antibody Screen 01/24/23 01/24/23 01/24/23 08:38 11:14 14:07 Anion Gap 11 L Estim Creat Clear Calc 17.4 Estimated GFR 13 POC Glucose 95 97 Random Glucose 102 Calcium 8.6 Blood Type O Positive Antibody Screen NEGATIVE Assessment and Plan (1) Hypoglycemia: Status: Acute (2) Acalculous cholecystitis: Status: Acute Plan 67 yo M with multiple medical issues including DM type 2, s/p L BKA and R TMA, Stabe 3b CKD, HTN, HLD, HFpEF, Renal artery stenosis, LIVE, HLD and PAD who is being admitted for: KEYA on CKD 3b hyperkalemia seems improved with HD. Nephrology consult noted-c/w renal hypoperfusion form LOW BPs--> ischemic ATN vs pre-renal: nontunneled catheter for HD-got HD uncontrolled htn intial Blurred visions / hypotension: improved suspected BP secondary to low BP (normally the patient's BP 140s-180s); improving as his BP improved likely cause of his low BP is secondary to recent adjustments to his medications + underlying CHF and renal artery stenosis bp from yesterday in 150-180 range coreg ,given iv hydralazine ,also added amlodipine -moniter bp. RUQ / possible acalculous antonia no leucocytosis or fevers ,ruq pain minimum IR -need dialysis prior to any intervention and hida done -reviewed with surgery-has patent cystic duct. General surgery consult-continue iv zosyn, s/p CCY tube. DM with boderline flactuating fs: fs low range continue on D5NS maintenance,and dextrose if needed . monitor POC glucose ,hold insulin if CCY drain not placed today-then will start him on clear liquids . HFpEF, chronic cxr mild interstial changes -official reading pending sob -possible sec to elevated bp causing diastolic dysfunction added htn medications as above .monitor closely sob seems somewhat improving Renal artery stenosis was to have surgery with vascular eval -further workup outpatient. Anemia chronic, h/h at about baseline(7.8/25.8) monitor Full Code DVT pptx - subcut heparin (to start after CCY ,So far continue mech devices-scd) ongoing hopsitlisation need: possible acalculous cholecystitis which may require surgical intervention, therefore expected to require at a minimum. Case discussed with ICU due to multiple medical issues as above-ICU will see the patient. Quality Stroke Does the patient have a stroke diagnosis?: No VTE Prior VTE?: No VTE Risk Level:: Medical - moderate - high VTE Device Contraindication: Treatment Not Indicated VTE Drug Contraindication: N/A - Med Ordered
[2023-01-24] MEDS: amLODIPine Besylate 10 MG TABLET PO ×2 (17:14)
--- NOTE | 2023-01-24 18:36 | PC.NURSE ---
Pt arrived to unit at 1830. laminating machine tender notified of current BP 116/111. pt remains on 4 ltr via NC. Pt has good output from new [place] drain.
[2023-01-24 18:42] LABS: Glucose, Whole Blood 72 mg/dL (60-115)
--- NOTE | 2023-01-24 19:41 | P.PNNP_ITS ---
Subjective Subjective Date of Service: 01/24/23 Interval history: KEYA, CKD 4, HTN Physical Exam 2 Vital Signs: Vital Signs: Last Vital Signs Temp 98 F 01/24/23 18:37 Pulse 87 01/24/23 18:37 Resp 26 H 01/24/23 18:37 BP 166/111 H 01/24/23 18:37 Pulse Ox 94 01/24/23 18:37 O2 Del Method Nasal Cannula 01/24/23 18:37 O2 Flow Rate 4 01/24/23 18:37 BMI result Body Mass Index 33.5 Const: Other: Constitutional - Awake and Alert, mild distress Eyes - PERRLA, EOMI Cardiovascular - S1S2, RRR, +pedal edema Respiratory - Normal lung expansion, Normal respiratory effort, No respiratory distress, CTA bilaterally Gastrointestinal - RUQ TTP without rebound or guarding - No CVA tenderness Extremities - L BKA, R TMA Musculoskeletal - Normal inspection, normal ROM Skin - Warm/Dry Neurological - Alert & oriented x3, No focal deficit Psychological - Appropriate affect General: comfortable, no acute distress and alert O rientation/consciousness: patient oriented x3 Resp: Effort & Inspection: normal respiratory effort Cardio: Rate: regular rate GI: Other: protuberant abdomen Palpation (GI): Soft to palpation and Tenderness to palpation present (GI) in the RUQ (marked tenderness ) and Ford's sign positive Percussion: Yes normal to percussion Skin: General skin exam: no rashes or lesions noted and no jaundice Neuro: General: patient oriented x3 and moves all extremities Objective Data Labs 01/24/23 08:38 01/24/23 08:38 Labs: Laboratory Results - last 24 hr 01/23/23 01/24/23 01/24/23 23:31 05:34 08:38 Hgb 7.6 L Hct 23.5 L Sodium 143 Potassium 4.3 Chloride 114 H Carbon Dioxide 22 Anion Gap 11 L BUN 41 H Creatinine 4.57 H* Estim Creat Clear Calc 17.4 Estimated GFR 13 POC Glucose 104 71 Random Glucose 102 Calcium 8.6 Blood Type O Positive Antibody Screen NEGATIVE 01/24/23 01/24/23 01/24/23 11:14 14:07 18:39 Hgb Hct Sodium Potassium Chloride Carbon Dioxide Anion Gap BUN Creatinine Estim Creat Clear Calc Estimated GFR POC Glucose 95 97 72 Random Glucose Calcium Blood Type Antibody Screen Microbiology Microbiology Results: Microbiology 01/21/23 08:03 Blood - Venous Blood Culture - Preliminary No growth after 48 hours. 01/21/23 07:55 Blood - Venous Blood Culture - Preliminary No growth after 48 hours. 01/21/23 Unknown Urine clean catch - Urine lawrence top Urine Culture - Final No growth. Procedures Date of Service Date of Service: 01/24/23 Assessment & Plan Assessment and plan (1) Acute hyperkalemia: Status: Acute (2) Acute kidney injury superimposed on chronic kidney disease: Status: Acute Plan 1. Oliguric--> Non-Oliguric KEYA: c/w renal hypoperfusion epidos from LOW BPs--> ischemic ATN vs pre-renal HOLD HD again today and reassess tomorrow 2. 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 Low BPs: resolved and now sever HTN again r/s BP meds and cont titrat up 4. HyperK: resolved 5. RUQ pain:much improved--surg eval 6. Severe HTN and ques R LORENZO: vasc eval for angio for refractory svere HTN Disc: KEYA HD x 1 and will monitor gianaley fpr KEYA recovery enough to come off HD REC: HOLD HD today and reassess tomorrow for possible HD in am; avoid WAYNE/ARB; add hydralazine prn and iv lasix x 1 now; vasc to eval for R LORENZO intervention--PTRA/stent will follow w team Time Spent With Patient Time: Total time managing care of this patient today ____ minutes. Progress Note: Quality Stroke Does the patient have a stroke diagnosis?: No
--- NOTE | 2023-01-24 19:49 | MHC.RECOVSUP ---
? Reason for consult:LUKE o? Current location:?470-1 o? Identified substance use concern:? -? Support ? Intervention: o? Community resources provided ? Plan:Pt is going to connect with [facility] upon discharge. ? Additional information:[facility] met with this pt and provided him with recovery resources, pt had family visiting so we spoke briefly, he stated he'd call me upon being discharged.
[2023-01-24 20:11] LABS: Glucose, Whole Blood 115 mg/dL (60-115)
--- NOTE | 2023-01-24 20:26 | P.CONCC_ITS ---
History of Present Illness Data of Consult Service Date: 01/24/23 Requesting physician: Juliocesar Vu Primary Care Provider: Unknown Physician HPI Reason for consult: Hypertension Patient is a 67-year-old? German-speaking male with a past medical history of diabetes mellitus type 2, status post left BKA and right TMA, chronic kidney disease, hypertension, hyperlipidemia, renal artery stenosis, congestive heart failure,? and peripheral artery disease? who was admitted to [facility] for acalculous cholecystitis? and KEYA? requiring new dialysis.? ? He is status post? cholecystostomy by IR? today.? Last hemodialysis? done 2 days ago.? ICU consulted for? elevated blood pressures.? Blood pressure 184/72.? ?On my assessment patient is alert and oriented x3, ? following commands. ? No increased work of breathing? noted. Lungs with significant rhonchi.? Denies shortness of breaths.? Chest x-ray with significant mild pulmonary congestion.? ?Renal physician,? Dr. Modi,? recommending x1 dose of Lasix and? hydralazine p.r.n.? Impossible HD tomorrow.? ICU agrees with this plan.? ?Please contact ICU if patient condition worsens Review of Systems 2 Constitutional: Constitutional: Denies chills, Denies fever(s) and Denies headache(s) Eyes: Eyes: Denies change in vision ENT: Denies dizziness and Denies headache(s) Cardiovascular: Cardiovascular: Denies chest pain and Denies lightheadedness Gastrointestinal: Gastrointestinal: Denies nausea and Denies vomiting Neurologic: Denies dizziness and Denies headache(s) [facility] Past Medical History Medical History Erectile dysfunction CKD (chronic kidney disease) stage 3, GFR 30-59 ml/min (HFpEF) heart failure with preserved ejection fraction Osteomyelitis CKD stage 3 due to type 2 diabetes mellitus LIVE (iron deficiency anemia) Hyperlipidemia associated with type 2 diabetes mellitus Type 2 diabetes mellitus Kidney disease High cholesterol HTN (hypertension) Diabetes PAD (peripheral artery disease) Family History Family History Other No family history of coronary artery disease Surgical History Surgical History Status post transmetatarsal amputation of left foot Hx of amputation History of amputation of right forefoot H/O shoulder surgery Social History Social History Household Members: None Housing: Apartment Do you presently have visiting nurse or other home services: Yes ([employer] ONLY) Alcohol intake: current Alcohol intake frequency: a few times a month Alcohol type: beer Patient Tobacco Use Status: Never used Tobacco Tobacco use type: Cigarette Substance Use Type: Crack/Cocaine Advance Directives Date on File: 02/02/22 service: No Current occupational status: retired Meds Allergies Allergy/AdvReac Type Severity Reaction Status Date / Time metformin AdvReac Unknown Verified 01/24/23 14:42 Active Medications: Current Medications Acetaminophen (Acetaminophen Supp 650 Mg Supp.Rect) 650 mg [place] Q6H PRN PRN Reason: Pain, Mild (Pain Scale 1-3) Acetaminophen (Acetaminophen 325 Mg Tablet) 650 mg PO Q6H PRN PRN Reason: Pain, Mild (Pain Scale 1-3) Last Admin: 01/22/23 22:57 Dose: 650 mg Albuterol/Ipratropium (Albuterol/Iprat 2.5/0.5mg 3 Ml Ampul.Neb) 3 ml INHALE Q4H PRN PRN Reason: Wheezing Last Admin: 01/24/23 06:15 Dose: 3 ml Albuterol/Ipratropium (Albuterol/Iprat 2.5/0.5mg 3 Ml Ampul.Neb) 3 ml INHALE RQ4H WHILE AWAKE ANNABELLA Last Admin: 01/24/23 20:08 Dose: 3 ml Amlodipine Besylate (Amlodipine Besylate 10 Mg Tablet) 10 mg PO BEDTIME ANNABELLA; Protocol Aspirin (Aspirin 81 Mg Tab.Chew) 81 mg PO DAILY ANNABELLA Carvedilol (Carvedilol 25 Mg Tablet) 25 mg PO BID [facility]; Protocol Last Admin: 01/24/23 08:40 Dose: 25 mg Dextrose (Dextrose 50 % 25 Gm/50 Ml Syringe) 25 gm IVPUSH Q15M PRN; Protocol PRN Reason: per Hypoglycemia Standing Ord. Last Admin: 01/23/23 13:55 Dose: 25 gm Docusate Sodium (Docusate Sodium 100 Mg Capsule) 100 mg PO BEDTIME ANNABELLA Fluticasone Propionate (Fluticasone Propionate Nasal 16 Gm [place]) 2 spray NOSTRIL-B DAILY PRN PRN Reason: Congestion Glucose (Glucose Gel 15 Gm Gel..Gram.) 15 gm PO Q15M PRN; Protocol PRN Reason: per Hypoglycemia Standing Ord. Heparin Sodium (Porcine) (Heparin Sodium,Porcine 5,000 Unit/Ml Vial) 5,000 unit SUBCUT Q12H ANNABELAL Hydralazine HCl (Hydralazine Hcl 20 Mg/Ml Vial) 20 mg IVPUSH Q6H PRN; Protocol PRN Reason: SBP > 160 Piperacillin Sod/Tazobactam (Sod 2.25 gm/ Sodium Chloride) 50 mls @ 100 mls/hr IV Q8H [facility] Last Infusion: 01/24/23 18:20 Dose: Infused Isosorbide Mononitrate (Isosorbide Mononitrate 60 Mg Tab.Er.24h) 60 mg PO DAILY [facility]; Protocol Ondansetron HCl (Ondansetron Hcl 4 Mg/2 Ml Vial) 4 mg IVPUSH Q8H PRN PRN Reason: Nausea and Vomiting Sodium Chloride (0.9 % Sodium Chloride Flush 3 Ml Syringe) 3 ml IVFLUSH QSHIFT [facility] Last Admin: 01/24/23 18:25 Dose: Not Given Home Medications Medication Instructions Recorded Confirmed Last Taken Type sertraline 50 mg tablet 50 mg PO DAILY 04/27/21 01/21/23 01/21/23 History nabumetone 500 mg tablet 500 mg PO BID 07/17/22 01/21/23 01/21/23 History albuterol sulfate 90 mcg/actuation 2 puff inhalation Q4H PRN Wheezing 01/13/23 01/21/23 Unknown History aerosol inhaler (Ventolin HFA) amlodipine 10 mg tablet 10 mg PO QPM 01/13/23 01/21/23 01/21/23 History aspirin 81 mg chewable tablet 1 tab PO QAM 01/13/23 01/21/23 01/21/23 History atorvastatin 80 mg tablet 80 mg PO BEDTIME 01/13/23 01/21/23 01/20/23 History docusate sodium 100 mg capsule 100 mg PO BEDTIME 01/13/23 01/21/23 01/20/23 History ezetimibe 10 mg tablet 10 mg PO QAM 01/13/23 01/21/23 01/21/23 History flash glucose scanning reader 01/13/23 01/21/23 Unknown History (FreeStyle Daniel 2 [place]) flash glucose sensor (FreeStyle 01/13/23 01/21/23 Unknown History Daniel 2 Sensor kit) fluticasone propionate 50 2 spray intranasal QAM PRN 01/13/23 01/21/23 Unknown History mcg/actuation nasal Congestion spray,suspension furosemide 40 mg tablet 40 mg PO BID 01/13/23 01/21/23 01/21/23 History gabapentin 300 mg capsule 300 mg PO QAM 01/13/23 01/21/23 01/21/23 History glipizide 10 mg tablet 10 mg PO BID 01/13/23 01/21/23 01/21/23 History hydralazine 50 mg tablet 100 mg PO TID 01/13/23 01/21/23 01/21/23 History insulin degludec 100 unit/mL (3 25 unit subcut DAILY 01/13/23 01/21/23 01/21/23 History mL) subcutaneous pen ([employer] FlexTouch U-100 insulin) isosorbide mononitrate 60 mg 60 mg PO QAM 01/13/23 01/21/23 01/21/23 History tablet,extended release 24 hr losartan 50 mg tablet 100 mg PO QAM 01/13/23 01/21/23 01/21/23 History sitagliptin phosphate 100 mg 100 mg PO QAM 01/13/23 01/21/23 01/21/23 History tablet (Januvia) tamsulosin 0.4 mg capsule 0.4 mg PO QPM 01/13/23 01/21/23 01/20/23 History cholecalciferol (vitamin D3) 1,250 50,000 unit PO BEVERLY 01/21/23 01/21/23 01/20/23 History mcg (50,000 unit) capsule Physical Exam 2 Vital Signs: Vital Signs: Last Vital Signs Temp 98 F 01/24/23 18:37 Pulse 87 01/24/23 20:09 Resp 18 01/24/23 20:09 BP 166/111 H 01/24/23 18:37 Pulse Ox 94 01/24/23 18:37 O2 Del Method Nasal Cannula 01/24/23 18:37 O2 Flow Rate 4 01/24/23 18:37 BMI result Body Mass Index 33.5 Results Labs 01/24/23 08:38 01/25/23 10:37 Labs: Short CBC 01/24/23 Range/Units 08:38 Hgb 7.6 L (14.0-18.0) g/dl Hct 23.5 L (42.0-52.0) % BMP 01/24/23 08:38 Sodium 143 Potassium 4.3 Chloride 114 H Carbon Dioxide 22 BUN 41 H Creatinine 4.57 H* Calcium 8.6 Microbiology Microbiology Results: Microbiology 01/21/23 08:03 Blood - Venous Blood Culture - Preliminary No growth after 48 hours. 01/21/23 07:55 Blood - Venous Blood Culture - Preliminary No growth after 48 hours. 01/21/23 Unknown Urine clean catch - Urine lawrence top Urine Culture - Final No growth. Assessment and Plan (1) Acalculous cholecystitis: Status: Acute (2) CHF (congestive heart failure): Status: Acute (3) Acute kidney injury superimposed on chronic kidney disease: Status: Acute Plan No critical care time
[2023-01-24] MEDS: Furosemide 40 MG/4 ML VIAL IVPUSH (20:55)
[2023-01-24] MEDS: Heparin Sodium,Porcine 5,000 UNIT/ML VIAL 5000 UNIT SUBCUT (21:00)
[2023-01-25] VITALS (13 sets, daily range): BP systolic 164–197; BP diastolic 64–81; PULSE 66–83; RESP 16–19; TEMP 36.2–37.1; O2SAT 92–99
[2023-01-25] MEDS: Piperacillin Sodium/Tazobactam 2.25 GM in 0.9 % Sodium Chloride 50 ML IV ×2 (00:30→08:42)
[2023-01-25] MEDS: 0.9 % Sodium Chloride Flush 3 ML SYRINGE IVFLUSH ×3 (00:31→16:15)
[2023-01-25] MEDS: hydrALAZINE HCl 20 MG/ML VIAL IVPUSH ×4 (00:31→20:29)
[2023-01-25 04:11] LABS: Glucose, Whole Blood 80 mg/dL (60-115)
[2023-01-25] MEDS: Heparin Sodium,Porcine 5,000 UNIT/ML VIAL 5000 UNIT SUBCUT ×2 (07:02→19:34)
[2023-01-25 07:51] LABS: Glucose, Whole Blood 94 mg/dL (60-115)
[2023-01-25] MEDS: Albuterol/Iprat 2.5/0.5MG 3 ML AMPUL.NEB INHALE ×4 (07:59→20:36)
--- NOTE | 2023-01-25 08:15 | PM.PNGS ---
Subjective Subjective Date of Service: 01/25/23 Interval history: Feels much better. Denies any abdominal pain. Tolerating liquids. Wants to eat and go home. Physical Exam Vital Signs: Vital Signs: Last Vital Signs Temp 97.8 F 01/25/23 07:24 Pulse 83 01/25/23 08:01 Resp 16 01/25/23 08:01 BP 190/80 H 01/25/23 07:24 Pulse Ox 97 01/25/23 07:24 O2 Del Method Nasal Cannula 01/25/23 07:24 O2 Flow Rate 2 01/25/23 07:24 BMI result Body Mass Index 33.5 Const: General: comfortable, no acute distress and alert Orientation/consciousness: patient oriented x3 Resp: Effort & Inspection: normal respiratory effort GI: Other: cholecystostomy tube with bilious drainage Inspection: Yes distended Palpation (GI): Soft to palpation, nontender, no guarding and not rigid Skin: General skin exam: no rashes or lesions noted Neuro: General: patient oriented x3 Objective Data Active Medications Acetaminophen (Acetaminophen Supp 650 Mg Supp.Rect) 650 mg [place] Q6H PRN PRN Reason: Pain, Mild (Pain Scale 1-3) Acetaminophen (Acetaminophen 325 Mg Tablet) 650 mg PO Q6H PRN PRN Reason: Pain, Mild (Pain Scale 1-3) Last Admin: 01/22/23 22:57 Dose: 650 mg Documented By: WILIAN Albuterol/Ipratropium (Albuterol/Iprat 2.5/0.5mg 3 Ml Ampul.Neb) 3 ml INHALE Q4H PRN PRN Reason: Wheezing Last Admin: 01/24/23 06:15 Dose: 3 ml Documented By: ROBBIN Albuterol/Ipratropium (Albuterol/Iprat 2.5/0.5mg 3 Ml Ampul.Neb) 3 ml INHALE RQ4H WHILE AWAKE ANNABELLA Last Admin: 01/25/23 07:59 Dose: 3 ml Documented By: ISI Amlodipine Besylate (Amlodipine Besylate 10 Mg Tablet) 10 mg PO BEDTIME ANNABELLA; Protocol Aspirin (Aspirin 81 Mg Tab.Chew) 81 mg PO DAILY ANNABELLA Carvedilol (Carvedilol 25 Mg Tablet) 25 mg PO BID ANNA[facility]; Protocol Last Admin: 01/24/23 20:55 Dose: 25 mg Documented By: MICHELLE Dextrose (Dextrose 50 % 25 Gm/50 Ml Syringe) 25 gm IVPUSH Q15M PRN; Protocol PRN Reason: per Hypoglycemia Standing Ord. Last Admin: 01/23/23 13:55 Dose: 25 gm Documented By: LAUREN Docusate Sodium (Docusate Sodium 100 Mg Capsule) 100 mg PO BEDTIME [facility] Last Admin: 01/24/23 20:55 Dose: Not Given Documented By: MICHELLE Non-Admin Reason: Patient Refused Fluticasone Propionate (Fluticasone Propionate Nasal 16 Gm [place]) 2 spray NOSTRIL-B DAILY PRN PRN Reason: Congestion Glucose (Glucose Gel 15 Gm Gel..Gram.) 15 gm PO Q15M PRN; Protocol PRN Reason: per Hypoglycemia Standing Ord. Heparin Sodium (Porcine) (Heparin Sodium,Porcine 5,000 Unit/Ml Vial) 5,000 unit SUBCUT Q12H [facility] Last Admin: 01/25/23 07:02 Dose: 5,000 unit Documented By: MICHELLE Hydralazine HCl (Hydralazine Hcl 20 Mg/Ml Vial) 20 mg IVPUSH Q6H PRN; Protocol PRN Reason: SBP > 160 Last Admin: 01/25/23 00:31 Dose: 20 mg Documented By: MICHELLE Piperacillin Sod/Tazobactam (Sod 2.25 gm/ Sodium Chloride) 50 mls @ 100 mls/hr IV Q8H [facility] Last Infusion: 01/25/23 01:00 Dose: Infused Documented By: MICHELLE Isosorbide Mononitrate (Isosorbide Mononitrate 60 Mg Tab.Er.24h) 60 mg PO DAILY [facility]; Protocol Ondansetron HCl (Ondansetron Hcl 4 Mg/2 Ml Vial) 4 mg IVPUSH Q8H PRN PRN Reason: Nausea and Vomiting Sodium Chloride (0.9 % Sodium Chloride Flush 3 Ml Syringe) 3 ml IVFLUSH QSHIFT [facility] Last Admin: 01/25/23 00:31 Dose: 3 ml Documented By: MICHELLE Labs 01/24/23 08:38 01/24/23 08:38 Labs: Laboratory Results - last 24 hr 01/24/23 01/24/23 01/24/23 08:38 11:14 14:07 Anion Gap 11 L Estim Creat Clear Calc 17.4 Estimated GFR 13 POC Glucose 95 97 Random Glucose 102 Calcium 8.6 Blood Type O Positive Antibody Screen NEGATIVE 01/24/23 01/24/23 01/25/23 18:39 20:04 02:29 Anion Gap Estim Creat Clear Calc Estimated GFR POC Glucose 72 115 80 Random Glucose Calcium Blood Type Antibody Screen 01/25/23 07:47 Anion Gap Estim Creat Clear Calc Estimated GFR POC Glucose 94 Random Glucose Calcium Blood Type Antibody Screen Procedures Date of Service Date of Service: 01/25/23 Progress Note: A&P Assessment and plan (1) Acalculous cholecystitis: Status: Acute Plan s/p fluoroscopic guided placement cholecystostomy tube yesterday Resolution of abd pain- abdomen benign and non tender Can advance diet to solids as tolerated Home when tolerating solid diet with drain in place and on course of PO abx F/u in office in [address] Briggs Time Spent With Patient Time: Total time managing care of this patient today ____ minutes. Quality Stroke Does the patient have a stroke diagnosis?: No VTE Prior VTE?: No VTE Risk Level:: Medical - moderate - high VTE Device Contraindication: Treatment Not Indicated VTE Drug Contraindication: N/A - Med Ordered
[2023-01-25] MEDS: Aspirin 81 MG TAB.CHEW PO (08:42)
[2023-01-25] MEDS: carvediloL 25 MG TABLET PO ×2 (08:42→20:29)
[2023-01-25] MEDS: Isosorbide Mononitrate 60 MG TAB.ER.24H PO (08:42)
[2023-01-25 11:18] LABS: Anion Gap 11 (12-20); Blood Urea Nitrogen 40 mg/dL (9-16); Calcium 8.2 mg/dL (8.4-10.2); Carbon Dioxide 21 mmol/L (22-29); Chloride 114 mmol/L (96-108); Creatinine Clr Calc Pharmacy 19.3; Estimated Glomerular Filt Rate 15; Glucose Random 167 mg/dL (60-115); Potassium 4.3 mmol/L (3.3-5.1); Sodium 142 mmol/L (135-145)
--- NOTE | 2023-01-25 12:38 | HO.VASCPN ---
Subjective Subjective Date of Service: 01/25/23 Patient reports: no new complaints and feels better Interval history: Patient seen examined. Events over the past few days noted. Appears to be doing significantly better. Tolerating a diet. Abdominal pain had appears to have resolved. Anxious to be discharged. Physical Exam Vital Signs: Vital Signs: Last Vital Signs Temp 98.1 F 01/25/23 11:21 Pulse 66 01/25/23 11:49 Resp 18 01/25/23 11:49 BP 176/77 H 01/25/23 11:21 Pulse Ox 94 01/25/23 11:21 O2 Del Method Nasal Cannula 01/25/23 11:21 O2 Flow Rate 2 01/25/23 11:21 BMI result Body Mass Index 33.5 Const: General: cooperative, healthy appearing and comfortable Orientation/consciousness: oriented to person, oriented to place and oriented to time HEENT: Head: Yes normal to inspection Neck: Neck: Yes normal visual inspection Carotids: no bruits Chest: Chest palpation & inspection: normal inspection of the chest Resp: Effort & Inspection: normal respiratory effort and able to speak in complete sentences Auscultation: clear to auscultation bilaterally, no crackles, no rales, no rhonchi and no wheezes Cardio: Rate: regular rate Rhythm: regular rhythm Heart sounds: S1 normal heart sound present and S2 normal heart sound present Bruits: no carotid bruits Peripheral pulses: Peripheral pulses 2+ throughout GI: Inspection: Yes normal to inspection Skin: Wounds: no wounds Hair: normal Neuro: General: oriented to person, oriented to place and oriented to time Cranial nerves: Yes CN's II-XII intact bilaterally and Yes Normal hearing present Cognition (Neuro): normal cognition Motor exam (neuro): 5/5 motor strength present throughout Extrem: Other: venous exam: No significant superficial varicosities or spider telangiectasias, minimal edema General: No clubbing, No cyanosis and No edema Psych: Appearance: grossly normal Mental Status: mental status grossly normal Speech and movement: Normal speech and movement present Progress Note: A&P Assessment and plan (1) Acute kidney injury superimposed on chronic kidney disease: Status: Acute Assessment and Plan: Will need permanent dialysis access. Can be scheduled as an outpatient. Please protect left arm (2) Renal artery stenosis: Status: Acute Assessment and Plan: One stabilizes will need angiogram. It appears GFR has gone back to baseline. He appears to be doing better. Once abdominal issues resolve we can schedule for angiogram. This can be done as an outpatient we will closely follow with you. Thank you for allowing us to assist in his care Time Spent With Patient Time: Total time managing care of this patient today ____ minutes. Procedures Date of Service Date of Service: 01/25/23 Quality Stroke Does the patient have a stroke diagnosis?: No VTE Prior VTE?: No VTE Risk Level:: Medical - moderate - high VTE Device Contraindication: Treatment Not Indicated VTE Drug Contraindication: N/A - Med Ordered
[2023-01-25] MEDS: Amoxicillin/Potassium Clav 500 MG TABLET PO (12:49)
--- NOTE | 2023-01-25 16:01 | P.PNIM_ITS ---
Subjective Subjective Date of Service: 01/25/23 Interval History: uncontrolled htn Review of Systems patient is c/o some sob this afternoon,denies any chest pain still has ruq pain htn uncontrolled Physical Exam 2 Vital Signs: Vital Signs: Last Vital Signs Temp 97.1 F 01/25/23 15:14 Pulse 74 01/25/23 15:35 Resp 18 01/25/23 15:35 BP 197/81 H 01/25/23 15:14 Pulse Ox 93 01/25/23 15:14 O2 Del Method Room Air 01/25/23 15:14 O2 Flow Rate 2 01/25/23 11:21 BMI result Body Mass Index 33.5 Appearance: Alert.? Oriented X3.?some sob cvs: rrr, [id number] , no murmur res: air entry fair ,dimished at bases ,did not hear rales ( poor respiratory effort). abd: no rebound or guarding ,ruq minimum discomfort, bs present. ext pulses present , no cyanosis . neuro: axo3 , nonfocal. Objective Data Active Medications Acetaminophen (Acetaminophen Supp 650 Mg Supp.Rect) 650 mg [place] Q6H PRN PRN Reason: Pain, Mild (Pain Scale 1-3) Acetaminophen (Acetaminophen 325 Mg Tablet) 650 mg PO Q6H PRN PRN Reason: Pain, Mild (Pain Scale 1-3) Last Admin: 01/22/23 22:57 Dose: 650 mg Documented By: WILIAN Albuterol/Ipratropium (Albuterol/Iprat 2.5/0.5mg 3 Ml Ampul.Neb) 3 ml INHALE Q4H PRN PRN Reason: Wheezing Last Admin: 01/24/23 06:15 Dose: 3 ml Documented By: ROBBIN Albuterol/Ipratropium (Albuterol/Iprat 2.5/0.5mg 3 Ml Ampul.Neb) 3 ml INHALE RQ4H WHILE AWAKE [facility] Last Admin: 01/25/23 15:33 Dose: 3 ml Documented By: ISI Amlodipine Besylate (Amlodipine Besylate 10 Mg Tablet) 10 mg PO BEDTIME [facility]; Protocol Amoxicillin/Clavulanate Potassium (Amoxicillin/Potassium Clav 500 Mg Tablet) 500 mg PO Q12H [facility] Last Admin: 01/25/23 12:49 Dose: 500 mg Documented By: ABDULKADIR Aspirin (Aspirin 81 Mg Tab.Chew) 81 mg PO DAILY [facility] Last Admin: 01/25/23 08:42 Dose: 81 mg Documented By: ABDULKADIR Carvedilol (Carvedilol 25 Mg Tablet) 25 mg PO BID [facility]; Protocol Last Admin: 01/25/23 08:42 Dose: 25 mg Documented By: ABDULKADIR Dextrose (Dextrose 50 % 25 Gm/50 Ml Syringe) 25 gm IVPUSH Q15M PRN; Protocol PRN Reason: per Hypoglycemia Standing Ord. Last Admin: 01/23/23 13:55 Dose: 25 gm Documented By: FOGARTIzabela Docusate Sodium (Docusate Sodium 100 Mg Capsule) 100 mg PO BEDTIME [facility] Last Admin: 01/24/23 20:55 Dose: Not Given Documented By: MICHELLE Non-Admin Reason: Patient Refused Fluticasone Propionate (Fluticasone Propionate Nasal 16 Gm [place]) 2 spray NOSTRIL-B DAILY PRN PRN Reason: Congestion Glucose (Glucose Gel 15 Gm Gel..Gram.) 15 gm PO Q15M PRN; Protocol PRN Reason: per Hypoglycemia Standing Ord. Heparin Sodium (Porcine) (Heparin Sodium,Porcine 5,000 Unit/Ml Vial) 5,000 unit SUBCUT Q12H [facility] Last Admin: 01/25/23 07:02 Dose: 5,000 unit Documented By: MICHELLE Hydralazine HCl (Hydralazine Hcl 20 Mg/Ml Vial) 20 mg IVPUSH Q6H PRN; Protocol PRN Reason: SBP > 160 Last Admin: 01/25/23 08:42 Dose: 20 mg Documented By: ABDULKADIR Isosorbide Mononitrate (Isosorbide Mononitrate 60 Mg Tab.Er.24h) 60 mg PO DAILY [facility]; Protocol Last Admin: 01/25/23 08:42 Dose: 60 mg Documented By: ABDULKADIR Ondansetron HCl (Ondansetron Hcl 4 Mg/2 Ml Vial) 4 mg IVPUSH Q8H PRN PRN Reason: Nausea and Vomiting Sodium Chloride (0.9 % Sodium Chloride Flush 3 Ml Syringe) 3 ml IVFLUSH QSHIFT [facility] Last Admin: 01/25/23 08:43 Dose: 3 ml Documented By: HO.LESSARL Labs 01/24/23 08:38 01/25/23 10:37 Labs: Laboratory Results - last 24 hr 01/24/23 01/24/23 01/25/23 18:39 20:04 02:29 Anion Gap Estim Creat Clear Calc Estimated GFR POC Glucose 72 115 80 Random Glucose Calcium 01/25/23 01/25/23 07:47 10:37 Anion Gap 11 L Estim Creat Clear Calc 19.3 Estimated GFR 15 POC Glucose 94 Random Glucose 167 H Calcium 8.2 L Assessment and Plan (1) Acute hyperkalemia: Status: Acute (2) Renal artery stenosis: Status: Acute Plan 67 yo M with multiple medical issues including DM type 2, s/p L BKA and R TMA, Stabe 3b CKD, HTN, HLD, HFpEF, Renal artery stenosis, LIVE, HLD and PAD who is being admitted for: KEYA on CKD 3b hyperkalemia seems improved with HD. Nephrology consult noted-c/w renal hypoperfusion form LOW BPs--> ischemic ATN vs pre-renal: nontunneled catheter for HD-got HD . cr slowly coming near to basline producing urine keep valerio for today for monitering i/o. uncontrolled htn intial Blurred visions / hypotension: improved suspected BP secondary to low BP (normally the patient's BP 140s-180s); improving as his BP improved likely cause of his low BP is secondary to recent adjustments to his medications + underlying CHF and renal artery stenosis bp from yesterday in 150-180 range coreg ,given iv hydralazine ,also added amlodipine -moniter bp. RUQ / possible acalculous antonia no leucocytosis or fevers ,ruq pain minimum IR -need dialysis prior to any intervention and hida done -reviewed with surgery-has patent cystic duct. General surgery consult-continue iv zosyn, s/p CCY tube,daining well,no pain switched to po antibiotics. DM with boderline flactuating fs: fs low range continue on D5NS maintenance,and dextrose if needed . monitor POC glucose ,hold insulin if CCY drain not placed today-then will start him on clear liquids . HFpEF, chronic cxr mild interstial changes sob -possible sec to elevated bp causing diastolic dysfunction sob improving with bp control added htn medications as above .monitor closely sob seems somewhat improving d/w nephro-defer HD again today and reassess tomorrow Renal artery stenosis was to have surgery with vascular eval -further workup outpatient. Anemia chronic, h/h at about baseline(7.8/25.8) monitor Full Code DVT pptx - subcut heparin (to start after CCY ,[facility] ongoing hopsitlisation need: possible acalculous cholecystitis which may require surgical intervention, therefore expected to require at a minimum. Quality Stroke Does the patient have a stroke diagnosis?: No VTE Prior VTE?: No VTE Risk Level:: Medical - moderate - high VTE Device Contraindication: Treatment Not Indicated VTE Drug Contraindication: N/A - Med Ordered
[2023-01-25 17:08] LABS: Glucose, Whole Blood 159 mg/dL (60-115)
[2023-01-25] MEDS: Docusate Sodium 100 MG CAPSULE PO (20:29)
[2023-01-25] MEDS: amLODIPine Besylate 10 MG TABLET PO (20:29)
[2023-01-25 22:16] LABS: Glucose, Whole Blood 121 mg/dL (60-115)
[2023-01-26] VITALS (10 sets, daily range): BP systolic 164–216; BP diastolic 71–89; PULSE 67–87; RESP 17–22; TEMP 35.9–37.1; O2SAT 92–96
[2023-01-26] MEDS: Amoxicillin/Potassium Clav 500 MG TABLET PO ×2 (00:16→12:29)
[2023-01-26] MEDS: hydrALAZINE HCl 20 MG/ML VIAL IVPUSH (00:16)
[2023-01-26] MEDS: Albuterol/Iprat 2.5/0.5MG 3 ML AMPUL.NEB INHALE ×3 (00:55→19:52)
[2023-01-26] MEDS: 0.9 % Sodium Chloride Flush 3 ML SYRINGE IVFLUSH ×3 (01:16→14:54)
--- NOTE | 2023-01-26 06:10 | PM.EVENT ---
Event Note Date of Service: 01/26/23 Event Note: Patient with dyspnea overnight. Bilateral crackles upon examination. Reviewed chest x-ray of which is concerning for pulmonary vascular congestion and pulmonary edema. Will order Lasix. Obtaining echo Time Spent With Patient Time: Total time managing care of this patient today ____ minutes.
[2023-01-26] MEDS: Heparin Sodium,Porcine 5,000 UNIT/ML VIAL 5000 UNIT SUBCUT ×2 (06:18→19:54)
[2023-01-26] MEDS: Furosemide 100 MG/10 ML VIAL 80 MG IVPUSH ×2 (06:18→17:19)
[2023-01-26] MEDS: Magnesium Hydrox/Alum Hydrox 30 ML ORAL.SUSP PO (06:18)
[2023-01-26 06:30] LABS: Anion Gap 13 (12-20); Blood Urea Nitrogen 39 mg/dL (9-16); Calcium 8.6 mg/dL (8.4-10.2); Carbon Dioxide 20 mmol/L (22-29); Chloride 111 mmol/L (96-108); Estimated Glomerular Filt Rate 14; Glucose Random 97 mg/dL (60-115); Potassium 3.8 mmol/L (3.3-5.1); Sodium 140 mmol/L (135-145)
[2023-01-26 07:59] LABS: Glucose, Whole Blood 92 mg/dL (60-115)
[2023-01-26] MEDS: carvediloL 25 MG TABLET PO ×2 (08:09→20:01)
[2023-01-26] MEDS: Aspirin 81 MG TAB.CHEW PO (08:09)
[2023-01-26] MEDS: Isosorbide Mononitrate 60 MG TAB.ER.24H PO (08:10)
[2023-01-26] MEDS: hydrALAZINE HCl 50 MG TABLET PO ×3 (08:10→20:01)
[2023-01-26 08:26] LABS: Venous Blood Gas Refer to POC result
[2023-01-26 08:26] LABS: VBG Base Excess 0.3 mmol/L; VBG HCO3 23 mmol/L (22-26); VBG pCO2 32 mmHg; VBG pH 7.47 (7.32-7.43); VBG pO2 144 mmHg
[2023-01-26 08:44] LABS: B Type Natriuretic Peptide 855 pg/mL (<100)
[2023-01-26] MEDS: Doxycycline Monohydrate 100 MG CAPSULE PO ×2 (10:35→19:54)
--- NOTE | 2023-01-26 12:05 | P.PNIM_ITS ---
Subjective Subjective Date of Service: 01/26/23 Interval History: uncontrolled htn,possible chf Review of Systems overnight has sob has cough mostly dry denies any chest pain or abd pain Physical Exam 2 Vital Signs: Vital Signs: Last Vital Signs Temp 98.4 F 01/26/23 11:07 Pulse 67 01/26/23 11:07 Resp 20 01/26/23 11:07 BP 169/83 H 01/26/23 11:07 Pulse Ox 96 01/26/23 11:07 O2 Del Method Nasal Cannula 01/26/23 11:07 O2 Flow Rate 2 01/26/23 11:07 BMI result Body Mass Index 33.5 Appearance: Alert.? Oriented X3.?some sob cvs: rrr, [id number] , no murmur res: air entry fair ,dimished at bases ,few scattered rales . abd: no rebound or guarding ,ruq minimum discomfort, bs present. ext pulses present , no cyanosis . neuro: axo3 , nonfocal. Objective Data Active Medications Acetaminophen (Acetaminophen Supp 650 Mg Supp.Rect) 650 mg [place] Q6H PRN PRN Reason: Pain, Mild (Pain Scale 1-3) Acetaminophen (Acetaminophen 325 Mg Tablet) 650 mg PO Q6H PRN PRN Reason: Pain, Mild (Pain Scale 1-3) Last Admin: 01/22/23 22:57 Dose: 650 mg Documented By: WILIAN Albuterol/Ipratropium (Albuterol/Iprat 2.5/0.5mg 3 Ml Ampul.Neb) 3 ml INHALE Q4H PRN PRN Reason: Wheezing Last Admin: 01/26/23 00:55 Dose: 3 ml Documented By: MATTHEW Albuterol/Ipratropium (Albuterol/Iprat 2.5/0.5mg 3 Ml Ampul.Neb) 3 ml INHALE RQ4H WHILE AWAKE [facility] Last Admin: 01/26/23 11:41 Dose: 3 ml Documented By: GWEN Amlodipine Besylate (Amlodipine Besylate 10 Mg Tablet) 10 mg PO BEDTIME [facility]; Protocol Last Admin: 01/25/23 20:29 Dose: 10 mg Documented By: JB Amoxicillin/Clavulanate Potassium (Amoxicillin/Potassium Clav 500 Mg Tablet) 500 mg PO Q12H [facility] Last Admin: 01/26/23 00:16 Dose: 500 mg Documented By: JB Aspirin (Aspirin 81 Mg Tab.Chew) 81 mg PO DAILY [facility] Last Admin: 01/26/23 08:09 Dose: 81 mg Documented By: ABDULKADIR Carvedilol (Carvedilol 25 Mg Tablet) 25 mg PO BID [facility]; Protocol Last Admin: 01/26/23 08:09 Dose: 25 mg Documented By: ABDULKADIR Dextrose (Dextrose 50 % 25 Gm/50 Ml Syringe) 25 gm IVPUSH Q15M PRN; Protocol PRN Reason: per Hypoglycemia Standing Ord. Last Admin: 01/23/23 13:55 Dose: 25 gm Documented By: LAUREN Docusate Sodium (Docusate Sodium 100 Mg Capsule) 100 mg PO BEDTIME [facility] Last Admin: 01/25/23 20:29 Dose: 100 mg Documented By: JB Doxycycline Monohydrate (Doxycycline Monohydrate 100 Mg Capsule) 100 mg PO Q12H [facility] Last Admin: 01/26/23 10:35 Dose: 100 mg Documented By: ABDULKADIR Fluticasone Propionate (Fluticasone Propionate Nasal 16 Gm [place]) 2 spray NOSTRIL-B DAILY PRN PRN Reason: Congestion Glucose (Glucose Gel 15 Gm Gel..Gram.) 15 gm PO Q15M PRN; Protocol PRN Reason: per Hypoglycemia Standing Ord. Heparin Sodium (Porcine) (Heparin Sodium,Porcine 5,000 Unit/Ml Vial) 5,000 unit SUBCUT Q12H [facility] Last Admin: 01/26/23 06:18 Dose: 5,000 unit Documented By: JB Hydralazine HCl (Hydralazine Hcl 20 Mg/Ml Vial) 20 mg IVPUSH Q6H PRN; Protocol PRN Reason: SBP > 160 Last Admin: 01/26/23 00:16 Dose: 20 mg Documented By: JB Comments: Given per providers order. Hydralazine HCl (Hydralazine Hcl 50 Mg Tablet) 50 mg PO TID [facility]; Protocol Last Admin: 01/26/23 08:10 Dose: 50 mg Documented By: ABDULKADIR Isosorbide Mononitrate (Isosorbide Mononitrate 60 Mg Tab.Er.24h) 60 mg PO DAILY [facility]; Protocol Last Admin: 01/26/23 08:10 Dose: 60 mg Documented By: ABDULKADIR Ondansetron HCl (Ondansetron Hcl 4 Mg/2 Ml Vial) 4 mg IVPUSH Q8H PRN PRN Reason: Nausea and Vomiting Sodium Chloride (0.9 % Sodium Chloride Flush 3 Ml Syringe) 3 ml IVFLUSH QSHIFT [facility] Last Admin: 01/26/23 08:10 Dose: 3 ml Documented By: ABDULKADIR Labs 01/24/23 08:38 01/26/23 05:32 Labs: Laboratory Results - last 24 hr 01/25/23 01/25/23 01/26/23 16:29 21:58 05:32 Hold Purple Top SEE NOTE VBG pH VBG pCO2 VBG pO2 VBG HCO3 VBG O2 Saturation VBG Base Excess Anion Gap 13 Estim Creat Clear Calc 19.0 Estimated GFR 14 POC Glucose 159 H 121 H Random Glucose 97 Calcium 8.6 B-Natriuretic Peptide 01/26/23 01/26/23 01/26/23 07:56 08:14 08:21 Hold Purple Top VBG pH 7.47 H VBG pCO2 32 VBG pO2 144 VBG HCO3 23 VBG O2 Saturation 100.0 VBG Base Excess 0.3 Anion Gap Estim Creat Clear Calc Estimated GFR POC Glucose 92 Random Glucose Calcium B-Natriuretic Peptide 855 H Microbiology Microbiology Results: Microbiology 01/21/23 08:03 Blood Culture - Final Blood - Venous No growth after 5 days. 01/21/23 07:55 Blood Culture - Final Blood - Venous No growth after 5 days. Assessment and Plan (1) (HFpEF) heart failure with preserved ejection fraction: Status: Acute (2) Acute kidney injury superimposed on chronic kidney disease: Status: Acute Plan 67 yo M with multiple medical issues including DM type 2, s/p L BKA and R TMA, Stabe 3b CKD, HTN, HLD, HFpEF, Renal artery stenosis, LIVE, HLD and PAD who is being admitted for: KEYA on CKD 3b hyperkalemia seems improved with HD. Nephrology consult noted-c/w renal hypoperfusion form LOW BPs--> ischemic ATN vs pre-renal: nontunneled catheter for HD-got HD . cr slowly coming near to basline producing urine keep valerio for today for monitering i/o. uncontrolled htn intial Blurred visions / hypotension: improved suspected BP secondary to low BP (normally the patient's BP 140s-180s); improving as his BP improved likely cause of his low BP is secondary to recent adjustments to his medications + underlying CHF and renal artery stenosis bp from yesterday in 150-180 range continue coreg ,amlodipine ,imdur ,also added hydralazine 50 mg tid. RUQ / possible acalculous antonia no leucocytosis or fevers ,ruq pain minimum IR -need dialysis prior to any intervention and hida done -reviewed with surgery-has patent cystic duct. General surgery consult-continue iv zosyn, s/p CCY tube,daining well,no pain switched to po antibiotics. DM with boderline flactuating fs: from 90-150 P.o. take and fingersticks seems living. monitor POC glucose ,hold insulin avoid coverage below 200 mg/ dL if CCY drain not placed today-then will start him on clear liquids . acute on ch HFpEF excerebation: overnight:Bilateral crackles upon examination. Reviewed chest x-ray of which is concerning for pulmonary vascular congestion and pulmonary edema. received iv lasix 80 mg and afterwards diuresed 650+475 :1152 ml sofar moniter i/o( total i/o almost equal 7.6/7.4) ,daily weights sob seems improving added echo cardiology eval Renal artery stenosis was to have surgery with vascular eval -further workup outpatient. Anemia chronic, h/h at about baseline(7.8/25.8) monitor Full Code DVT pptx - subcut heparin (to start after CCY ,So far continue [facility]-scd) ongoing hopsitlisation need:htn un controlled- need htn med adjustment, who was blood pressure monitoring, CHF needs IV diuretics, close renal function electrolyte monitoring. Quality Stroke Does the patient have a stroke diagnosis?: No VTE Prior VTE?: No VTE Risk Level:: Medical - moderate - high VTE Device Contraindication: Treatment Not Indicated VTE Drug Contraindication: N/A - Med Ordered
--- NOTE | 2023-01-26 12:47 | PM.PNGS ---
Subjective Subjective Date of Service: 01/26/23 Interval history: Patient has complete resolution of his right upper abdomen gallbladder symptoms status post IR placed gallbladder drain.. He is tolerating his diet. Bilious drainage from IR drain Physical Exam Vital Signs: Vital Signs: Last Vital Signs Temp 98.4 F 01/26/23 11:07 Pulse 67 01/26/23 11:07 Resp 20 01/26/23 11:07 BP 169/83 H 01/26/23 11:07 Pulse Ox 96 01/26/23 11:07 O2 Del Method Nasal Cannula 01/26/23 11:07 O2 Flow Rate 2 01/26/23 11:07 BMI result Body Mass Index 33.5 GI: Other: Abdomen soft. Drain site clean dry and intact. Objective Data Active Medications Acetaminophen (Acetaminophen Supp 650 Mg Supp.Rect) 650 mg [place] Q6H PRN PRN Reason: Pain, Mild (Pain Scale 1-3) Acetaminophen (Acetaminophen 325 Mg Tablet) 650 mg PO Q6H PRN PRN Reason: Pain, Mild (Pain Scale 1-3) Last Admin: 01/22/23 22:57 Dose: 650 mg Documented By: WILIAN Albuterol/Ipratropium (Albuterol/Iprat 2.5/0.5mg 3 Ml Ampul.Neb) 3 ml INHALE Q4H PRN PRN Reason: Wheezing Last Admin: 01/26/23 00:55 Dose: 3 ml Documented By: MATTHEW Albuterol/Ipratropium (Albuterol/Iprat 2.5/0.5mg 3 Ml Ampul.Neb) 3 ml INHALE RQ4H WHILE AWAKE [facility] Last Admin: 01/26/23 11:41 Dose: 3 ml Documented By: GWEN Amlodipine Besylate (Amlodipine Besylate 10 Mg Tablet) 10 mg PO BEDTIME [facility]; Protocol Last Admin: 01/25/23 20:29 Dose: 10 mg Documented By: JB Amoxicillin/Clavulanate Potassium (Amoxicillin/Potassium Clav 500 Mg Tablet) 500 mg PO Q12H [facility] Last Admin: 01/26/23 12:29 Dose: 500 mg Documented By: ABDULKADIR Aspirin (Aspirin 81 Mg Tab.Chew) 81 mg PO DAILY [facility] Last Admin: 01/26/23 08:09 Dose: 81 mg Documented By: ABDULKADIR Carvedilol (Carvedilol 25 Mg Tablet) 25 mg PO BID [facility]; Protocol Last Admin: 01/26/23 08:09 Dose: 25 mg Documented By: ABDULKADIR Dextrose (Dextrose 50 % 25 Gm/50 Ml Syringe) 25 gm IVPUSH Q15M PRN; Protocol PRN Reason: per Hypoglycemia Standing Ord. Last Admin: 01/23/23 13:55 Dose: 25 gm Documented By: LAUREN Docusate Sodium (Docusate Sodium 100 Mg Capsule) 100 mg PO BEDTIME [facility] Last Admin: 01/25/23 20:29 Dose: 100 mg Documented By: JB Doxycycline Monohydrate (Doxycycline Monohydrate 100 Mg Capsule) 100 mg PO Q12H [facility] Last Admin: 01/26/23 10:35 Dose: 100 mg Documented By: ABDULKADIR Fluticasone Propionate (Fluticasone Propionate Nasal 16 Gm [place]) 2 spray NOSTRIL-B DAILY PRN PRN Reason: Congestion Glucose (Glucose Gel 15 Gm Gel..Gram.) 15 gm PO Q15M PRN; Protocol PRN Reason: per Hypoglycemia Standing Ord. Heparin Sodium (Porcine) (Heparin Sodium,Porcine 5,000 Unit/Ml Vial) 5,000 unit SUBCUT Q12H [facility] Last Admin: 01/26/23 06:18 Dose: 5,000 unit Documented By: JB Hydralazine HCl (Hydralazine Hcl 20 Mg/Ml Vial) 20 mg IVPUSH Q6H PRN; Protocol PRN Reason: SBP > 160 Last Admin: 01/26/23 00:16 Dose: 20 mg Documented By: JB Comments: Given per providers order. Hydralazine HCl (Hydralazine Hcl 50 Mg Tablet) 50 mg PO TID [facility]; Protocol Last Admin: 01/26/23 08:10 Dose: 50 mg Documented By: ABDULKADIR Isosorbide Mononitrate (Isosorbide Mononitrate 60 Mg Tab.Er.24h) 60 mg PO DAILY [facility]; Protocol Last Admin: 01/26/23 08:10 Dose: 60 mg Documented By: ABDULKADIR Ondansetron HCl (Ondansetron Hcl 4 Mg/2 Ml Vial) 4 mg IVPUSH Q8H PRN PRN Reason: Nausea and Vomiting Sodium Chloride (0.9 % Sodium Chloride Flush 3 Ml Syringe) 3 ml IVFLUSH QSHIFT [facility] Last Admin: 01/26/23 08:10 Dose: 3 ml Documented By: ABDULKADIR Labs 01/24/23 08:38 01/26/23 05:32 Labs: Laboratory Results - last 24 hr 01/25/23 01/25/23 01/26/23 16:29 21:58 05:32 Hold Purple Top SEE NOTE VBG pH VBG pCO2 VBG pO2 VBG HCO3 VBG O2 Saturation VBG Base Excess Anion Gap 13 Estim Creat Clear Calc 19.0 Estimated GFR 14 POC Glucose 159 H 121 H Random Glucose 97 Calcium 8.6 B-Natriuretic Peptide 01/26/23 01/26/23 01/26/23 07:56 08:14 08:21 Hold Purple Top VBG pH 7.47 H VBG pCO2 32 VBG pO2 144 VBG HCO3 23 VBG O2 Saturation 100.0 VBG Base Excess 0.3 Anion Gap Estim Creat Clear Calc Estimated GFR POC Glucose 92 Random Glucose Calcium B-Natriuretic Peptide 855 H Microbiology Microbiology Results: Microbiology 01/21/23 08:03 Blood Culture - Final Blood - Venous No growth after 5 days. 01/21/23 07:55 Blood Culture - Final Blood - Venous No growth after 5 days. Procedures Date of Service Date of Service: 01/26/23 Progress Note: A&P Assessment and plan (1) Acalculous cholecystitis: Status: Acute Plan Continue current plan. IR tube should remain in for least 4-6 weeks time. Time Spent With Patient Time: Total time managing care of this patient today ____ minutes. Quality Stroke Does the patient have a stroke diagnosis?: No VTE Prior VTE?: No VTE Risk Level:: Medical - moderate - high VTE Device Contraindication: Treatment Not Indicated VTE Drug Contraindication: N/A - Med Ordered
[2023-01-26 14:31] LABS: Glucose, Whole Blood 158 mg/dL (60-115)
[2023-01-26] MEDS: Omeprazole 20 MG CAPSULE.DR PO (14:53)
[2023-01-26] MEDS: NIFEdipine ER 30 MG TAB.ER.24 60 MG PO (16:17)
--- NOTE | 2023-01-26 16:49 | P.PNNP_ITS ---
Subjective Subjective Date of Service: 01/26/23 Interval history: Pt stable over past 48 hrs Creat stable off dialysis Responded to 80 mg of iv lasix well this am CXR shows pulm vasc congestion BP very high Physical Exam 2 Vital Signs: Vital Signs: Last Vital Signs Temp 96.7 F L 01/26/23 15:52 Pulse 73 01/26/23 15:52 Resp 18 01/26/23 15:52 BP 216/86 H 01/26/23 15:52 Pulse Ox 92 01/26/23 15:52 O2 Del Method Nasal Cannula 01/26/23 15:52 O2 Flow Rate 2 01/26/23 15:52 BMI result Body Mass Index 33.5 Const: General: cooperative, no acute distress and alert Neck: Neck: Yes normal visual inspection, Yes full ROM, Yes JVD and Yes other (R IJ mahurjur\) Resp: Effort & Inspection: normal respiratory effort and able to speak in complete sentences Auscultation: crackles and rales Cardio: Jugular venous distension: JVD Heart sounds: S1 normal heart sound present and S2 normal heart sound present Extrem: Other: Left BKA RLE pretib edema 1 plus Objective Data Labs 01/24/23 08:38 01/26/23 05:32 Labs: Laboratory Results - last 24 hr 01/25/23 01/25/23 01/26/23 16:29 21:58 05:32 Hold Purple Top SEE NOTE VBG pH VBG pCO2 VBG pO2 VBG HCO3 VBG O2 Saturation VBG Base Excess Sodium 140 Potassium 3.8 Chloride 111 H Carbon Dioxide 20 L Anion Gap 13 BUN 39 H Creatinine 4.17 H* Estim Creat Clear Calc 19.0 Estimated GFR 14 POC Glucose 159 H 121 H Random Glucose 97 Calcium 8.6 B-Natriuretic Peptide 01/26/23 01/26/23 01/26/23 07:56 08:14 08:21 Hold Purple Top VBG pH 7.47 H VBG pCO2 32 VBG pO2 144 VBG HCO3 23 VBG O2 Saturation 100.0 VBG Base Excess 0.3 Sodium Potassium Chloride Carbon Dioxide Anion Gap BUN Creatinine Estim Creat Clear Calc Estimated GFR POC Glucose 92 Random Glucose Calcium B-Natriuretic Peptide 855 H 01/26/23 14:27 Hold Purple Top VBG pH VBG pCO2 VBG pO2 VBG HCO3 VBG O2 Saturation VBG Base Excess Sodium Potassium Chloride Carbon Dioxide Anion Gap BUN Creatinine Estim Creat Clear Calc Estimated GFR POC Glucose 158 H Random Glucose Calcium B-Natriuretic Peptide ABG ABG results: REviewed ABG: resp alkalosis with renal compensation Microbiology Microbiology Results: Microbiology 01/21/23 08:03 Blood - Venous Blood Culture - Final No growth after 5 days. 01/21/23 07:55 Blood - Venous Blood Culture - Final No growth after 5 days. 01/21/23 Unknown Urine clean catch - Urine lawrence top Urine Culture - Final No growth. Procedures Date of Service Date of Service: 01/26/23 Assessment & Plan Assessment and plan (1) Acute kidney injury superimposed on chronic kidney disease: Status: Acute Assessment and Plan: Pt with KEYA on CKD multifactoria; malignant hypertensive renal injury; CHF with CRS Apparently occult LORENZO though I don't see documentatin of imaging REquired dialysis; now nonoliguric and creat stable at 4.4 or so No need for dialysis but remains hypertensive and in CHF (2) CKD stage 3 due to type 2 diabetes mellitus: Status: Acute Assessment and Plan: Presumed DKD vs. ischemic renal disease from LORENZO Hypertensive injury as well I have not reviewed entire prior workup (3) Hypertension: Status: Acute Assessment and Plan: Uncontrolled, resistant HTN On amlodipine 10, isosorbide, carvedilol 25 bid and hydralazine Volume overload contributing to resistance Agree with diuresis and would redoce furosemide tonight Change amlodipine to nifedipine: can do 60 mg bid (4) CHF (congestive heart failure): Status: Acute Assessment and Plan: Due to diastolic dysfunction and volume overload In pulm, edema on CXR Vol overloaded on exam Furosemide 80 mg IV bid Plan Diurese with lasix 80 mg bid today Change amlodipine to nifedipine 60 bid Renal artery doppler when feasible if not already done If BP remains > 170-give additional IV hydralazine 20 mg or clonidine 0,1 mg prn Monitor I/O Time Spent With Patient Time: Total time managing care of this patient today ____ minutes. Progress Note: Quality Stroke Does the patient have a stroke diagnosis?: No
[2023-01-26 20:17] LABS: Glucose, Whole Blood 154 mg/dL (60-115)
[2023-01-27] VITALS (8 sets, daily range): BP systolic 135–189; BP diastolic 70–88; PULSE 61–73; RESP 16–20; TEMP 36.2–36.7; O2SAT 92–99; BMI 33.8
[2023-01-27] MEDS: Amoxicillin/Potassium Clav 500 MG TABLET PO ×2 (00:24→13:11)
[2023-01-27] MEDS: 0.9 % Sodium Chloride Flush 3 ML SYRINGE IVFLUSH ×3 (00:26→16:09)
[2023-01-27 01:24] LABS: Glucose, Whole Blood 124 mg/dL (60-115)
[2023-01-27] MEDS: Omeprazole 20 MG CAPSULE.DR PO (06:36)
[2023-01-27 07:54] LABS: Hematocrit 25.1 % (42.0-52.0); Hemoglobin 8.3 g/dl (14.0-18.0)
[2023-01-27 08:12] LABS: Glucose, Whole Blood 104 mg/dL (60-115)
[2023-01-27 08:12] LABS: Anion Gap 14 (12-20); Blood Urea Nitrogen 37 mg/dL (9-16); Calcium 8.9 mg/dL (8.4-10.2); Carbon Dioxide 20 mmol/L (22-29); Chloride 111 mmol/L (96-108); Estimated Glomerular Filt Rate 13; Glucose Random 104 mg/dL (60-115); Potassium 4.1 mmol/L (3.3-5.1); Sodium 141 mmol/L (135-145)
[2023-01-27] MEDS: Albuterol/Iprat 2.5/0.5MG 3 ML AMPUL.NEB INHALE ×3 (08:15→20:06)
[2023-01-27] MEDS: Furosemide 100 MG/10 ML VIAL 80 MG IVPUSH (09:15)
[2023-01-27] MEDS: Heparin Sodium,Porcine 5,000 UNIT/ML VIAL 5000 UNIT SUBCUT ×2 (09:15→20:28)
[2023-01-27] MEDS: hydrALAZINE HCl 50 MG TABLET PO ×3 (09:16→20:28)
[2023-01-27] MEDS: NIFEdipine ER 30 MG TAB.ER.24 90 MG PO (09:16)
[2023-01-27] MEDS: Aspirin 81 MG TAB.CHEW PO (09:16)
[2023-01-27] MEDS: Doxycycline Monohydrate 100 MG CAPSULE PO ×2 (09:16→20:28)
[2023-01-27] MEDS: carvediloL 25 MG TABLET PO ×2 (09:16→20:28)
[2023-01-27] MEDS: Isosorbide Mononitrate 60 MG TAB.ER.24H PO (09:16)
--- NOTE | 2023-01-27 10:33 | P.PNIM_ITS ---
Subjective Subjective Date of Service: 01/27/23 Interval History: chf Review of Systems sob seems improving denies any chest pain has CCY tube drainin no fever or abd pain Physical Exam 2 Vital Signs: Vital Signs: Last Vital Signs Temp 97.7 F 01/27/23 07:22 Pulse 73 01/27/23 08:16 Resp 18 01/27/23 08:16 BP 189/88 H 01/27/23 07:22 Pulse Ox 92 01/27/23 07:22 O2 Del Method Nasal Cannula 01/27/23 07:22 O2 Flow Rate 1 01/27/23 07:22 BMI result Body Mass Index 33.8 Appearance: Alert.? Oriented X3.sob seems improvin cvs: rrr, [id number] , no murmur res: air entry fair ,dimished at bases ,minimum rales . abd: no rebound or guarding ,nt , bs present. has ccy tube - small amount yelowish/greenish fluid had valerio-just got empty as per patient ext pulses present , no cyanosis . neuro: axo3 , nonfocal. Objective Data Active Medications Acetaminophen (Acetaminophen Supp 650 Mg Supp.Rect) 650 mg KS Q6H PRN PRN Reason: Pain, Mild (Pain Scale 1-3) Acetaminophen (Acetaminophen 325 Mg Tablet) 650 mg PO Q6H PRN PRN Reason: Pain, Mild (Pain Scale 1-3) Last Admin: 01/22/23 22:57 Dose: 650 mg Documented By: WILIAN Albuterol/Ipratropium (Albuterol/Iprat 2.5/0.5mg 3 Ml Ampul.Neb) 3 ml INHALE Q4H PRN PRN Reason: Wheezing Last Admin: 01/26/23 00:55 Dose: 3 ml Documented By: MATTHEW Albuterol/Ipratropium (Albuterol/Iprat 2.5/0.5mg 3 Ml Ampul.Neb) 3 ml INHALE RQ4H WHILE AWAKE ANNABELLA Last Admin: 01/27/23 08:15 Dose: 3 ml Documented By: GWEN Amoxicillin/Clavulanate Potassium (Amoxicillin/Potassium Clav 500 Mg Tablet) 500 mg PO Q12H ANNABELLA Last Admin: 01/27/23 00:24 Dose: 500 mg Documented By: RADHA Aspirin (Aspirin 81 Mg Tab.Chew) 81 mg PO DAILY [facility] Last Admin: 01/27/23 09:16 Dose: 81 mg Documented By: DENZEL Carvedilol (Carvedilol 25 Mg Tablet) 25 mg PO BID [facility]; Protocol Last Admin: 01/27/23 09:16 Dose: 25 mg Documented By: DENZEL Dextrose (Dextrose 50 % 25 Gm/50 Ml Syringe) 25 gm IVPUSH Q15M PRN; Protocol PRN Reason: per Hypoglycemia Standing Ord. Last Admin: 01/23/23 13:55 Dose: 25 gm Documented By: LAUREN Docusate Sodium (Docusate Sodium 100 Mg Capsule) 100 mg PO BEDTIME [facility] Last Admin: 01/26/23 20:02 Dose: Not Given Documented By: DELON Non-Admin Reason: loose bm Doxycycline Monohydrate (Doxycycline Monohydrate 100 Mg Capsule) 100 mg PO Q12H [facility] Last Admin: 01/27/23 09:16 Dose: 100 mg Documented By: DENZEL Fluticasone Propionate (Fluticasone Propionate Nasal 16 Gm Cook Sta) 2 spray NOSTRIL-B DAILY PRN PRN Reason: Congestion Furosemide (Furosemide 100 Mg/10 Ml Vial) 80 mg IVPUSH DAILY [facility] Last Admin: 01/27/23 09:15 Dose: 80 mg Documented By: DENZEL Glucose (Glucose Gel 15 Gm Gel..Gram.) 15 gm PO Q15M PRN; Protocol PRN Reason: per Hypoglycemia Standing Ord. Heparin Sodium (Porcine) (Heparin Sodium,Porcine 5,000 Unit/Ml Vial) 5,000 unit SUBCUT Q12H [facility] Last Admin: 01/27/23 09:15 Dose: 5,000 unit Documented By: DENZEL Hydralazine HCl (Hydralazine Hcl 50 Mg Tablet) 50 mg PO TID [facility]; Protocol Last Admin: 01/27/23 09:16 Dose: 50 mg Documented By: DENZEL Hydralazine HCl (Hydralazine Hcl 20 Mg/Ml Vial) 10 mg IVPUSH Q6H PRN; Protocol PRN Reason: SBP > 170 Isosorbide Mononitrate (Isosorbide Mononitrate 60 Mg Tab.Er.24h) 60 mg PO DAILY [facility]; Protocol Last Admin: 01/27/23 09:16 Dose: 60 mg Documented By: DENZEL Nifedipine (Nifedipine Er 30 Mg Tab.Er.24) 90 mg PO DAILY [facility]; Protocol Last Admin: 01/27/23 09:16 Dose: 90 mg Documented By: DENZEL Omeprazole (Omeprazole 20 Mg Capsule.) 20 mg PO DAILY@0630 [facility] Last Admin: 01/27/23 06:36 Dose: 20 mg Documented By: RADHA Ondansetron HCl (Ondansetron Hcl 4 Mg/2 Ml Vial) 4 mg IVPUSH Q8H PRN PRN Reason: Nausea and Vomiting Sodium Chloride (0.9 % Sodium Chloride Flush 3 Ml Syringe) 3 ml IVFLUSH QSHIFT [facility] Last Admin: 01/27/23 09:16 Dose: 3 ml Documented By: DENZEL Labs 01/27/23 07:45 01/27/23 07:45 Labs: Laboratory Results - last 24 hr 01/26/23 01/26/23 01/27/23 14:27 20:13 01:21 Anion Gap Estim Creat Clear Calc Estimated GFR POC Glucose 158 H 154 H 124 H Random Glucose Calcium 01/27/23 01/27/23 07:45 08:08 Anion Gap 14 Estim Creat Clear Calc 18.0 Estimated GFR 13 POC Glucose 104 Random Glucose 104 Calcium 8.9 Microbiology Microbiology Results: Microbiology 01/21/23 08:03 Blood Culture - Final Blood - Venous No growth after 5 days. 01/21/23 07:55 Blood Culture - Final Blood - Venous No growth after 5 days. Assessment and Plan (1) CHF (congestive heart failure): Status: Acute (2) Hypertension: Status: Acute Assessment and Plan: 67 yo M with multiple medical issues including DM type 2, s/p L BKA and R TMA, Stabe 3b CKD, HTN, HLD, HFpEF, Renal artery stenosis, LIVE, HLD and PAD who is being admitted for: KEYA on CKD 3b hyperkalemia seems improved with HD. Nephrology consult noted-c/w renal hypoperfusion form LOW BPs--> ischemic ATN vs pre-renal: nontunneled catheter for HD-got HDx1 . cr is aroun 4.2-4.5 producing urine keep valerio for today for monitering i/o. uncontrolled htn intial Blurred visions / hypotension: improved suspected BP secondary to low BP (normally the patient's BP 140s-180s); improving as his BP improved likely cause of his low BP is secondary to recent adjustments to his medications + underlying CHF and renal artery stenosis bp still high continue coreg ,imdur ,also added hydralazine 50 mg tid,added nifedipine and stopped amlodpine. use hydralazine iv is bp persistently >170. RUQ / possible acalculous antonia no leucocytosis or fevers ,ruq pain minimum IR -need dialysis prior to any intervention and hida done -reviewed with surgery-has patent cystic duct. General surgery consult-s/p CCY tube,daining well,no pain switched to po antibiotics.(amoxixlllin) DM with boderline flactuating fs: from 90-150 P.o. take and fingersticks seems living. monitor POC glucose ,hold insulin avoid coverage below 200 mg/ dL if CCY drain not placed today-then will start him on clear liquids . acute on ch HFpEF excerebation: chest exam-very few scattered rales ,improving sob improving bnp [id number] chest x-ray 01/26: of which is concerning for pulmonary vascular congestion and pulmonary edema. received iv lasix 80 mg and afterwards diuresed 3liter since yesterday moniter i/o neg 1.6 ( total i/o 8.5/10.1) ,daily weights sob seems improving echo. d/w nephro-given lasix 80 mg iv yesterday-switched to 40 mg iv lasix today Renal artery stenosis was to have surgery with vascular eval -further workup outpatient. Anemia chronic, h/h at about baseline(7.8/25.8) monitor Full Code DVT pptx - subcut heparin (to start after CCY ,So far continue [facility] devices-scd) ongoing hopsitlisation need:htn un controlled- need htn med adjustment, who was blood pressure monitoring, CHF needs IV diuretics, close renal function electrolyte monitoring. Quality Stroke Does the patient have a stroke diagnosis?: No VTE Prior VTE?: No VTE Risk Level:: Medical - moderate - high VTE Device Contraindication: Treatment Not Indicated VTE Drug Contraindication: N/A - Med Ordered
--- NOTE | 2023-01-27 11:07 | PC.NURSE ---
IV 6 days old. Difficult IV stick. Dr. Vu aware. OK to keep current IV.
[2023-01-27 11:11] LABS: B Type Natriuretic Peptide 928 pg/mL (<100)
[2023-01-27 14:14] LABS: Glucose, Whole Blood 162 mg/dL (60-115)
[2023-01-27] MEDS: Docusate Sodium 100 MG CAPSULE PO (20:28)
[2023-01-27 20:36] LABS: Glucose, Whole Blood 196 mg/dL (60-115)
[2023-01-28] VITALS (12 sets, daily range): BP systolic 140–183; BP diastolic 55–84; PULSE 62–77; RESP 16–20; TEMP 36.7–37.7; O2SAT 91–98; BMI 33.1
[2023-01-28] MEDS: Amoxicillin/Potassium Clav 500 MG TABLET PO ×2 (00:08→13:02)
[2023-01-28] MEDS: 0.9 % Sodium Chloride Flush 3 ML SYRINGE IVFLUSH ×4 (00:09→19:58)
[2023-01-28 02:06] LABS: Glucose, Whole Blood 124 mg/dL (60-115)
[2023-01-28] MEDS: diphenhydrAMINE HCL 50 MG/ML VIAL IVPUSH (05:07)
[2023-01-28] MEDS: Omeprazole 20 MG CAPSULE.DR PO (05:07)
[2023-01-28] MEDS: hydrALAZINE HCl 20 MG/ML VIAL 10 MG IVPUSH (05:51)
[2023-01-28] MEDS: Heparin Sodium,Porcine 5,000 UNIT/ML VIAL 5000 UNIT SUBCUT ×2 (05:53→19:57)
--- NOTE | 2023-01-28 07:00 | CA_ITS ---
Transthoracic Echocardiogram Patient (Last, First, Middle): Kingsley Rivero R Gender: Male Date of : 1955 Age: 67 Procedure Date: 01/28/2023 Procedure Type: Transthoracic Echocardiogram [place] [facility] [place]: 170.18 cm Weight: 95.71 kg BSA: 2.07 m2 Heart Rate: 75 bpm BP: 176 / 84 mmHg Radio Presenter: CLARY Referring MD: Lor Quintanilla MD Symptoms: CHF Study Quality: Adequate ECG Rhythm: Sinus Conclusions: - Normal left ventricular size and systolic function. There is mildly increased left ventricular wall thickness. The visually estimated ejection fraction is between 60-65%. - E/E prime ratio is >15, consistent with elevated filling pressures. - Mildly increased right ventricular cavity size. There is normal right ventricular systolic function. - The left atrium is moderately dilated. The right atrium is moderately dilated. - There is mild dilatation of the sinuses of Valsalva measuring 3.80 cm and mild dilatation of the ascending aorta measuring 3.50 cm. Findings Procedure Information Contrast agent, definity, is being given per protocol without apparent complications. Left Ventricle Normal left ventricular size and systolic function. There is mildly increased left ventricular wall thickness. The visually estimated ejection fraction is between 60-65%. There is no evidence of regional wall motion abnormalities. Abnormal diastolic function is noted. Spectral Doppler is indicative of a pseudonormal filling pattern. E/E prime ratio is >15, consistent with elevated filling pressures. Right Ventricle Mildly increased right ventricular cavity size. There is normal right ventricular systolic function. Atria The left atrium is moderately dilated. The right atrium is moderately dilated. Aortic Valve The aortic valve structure and function is likely normal. There is no aortic valve stenosis. There is no aortic valve regurgitation. Mitral Valve The mitral valve appears normal. There is mild mitral valve regurgitation. There is no mitral valve stenosis. Pulmonic Valve The pulmonic valve is likely normal. Tricuspid Valve Normal tricuspid valve structure and function. There is trace tricuspid valve regurgitation. Significantly elevated right atrial pressure. There is no evidence of pulmonary hypertension. Great Vessels There is mild dilatation of the sinuses of Valsalva measuring 3.80 cm and mild dilatation of the ascending aorta measuring 3.50 cm. The visualized portions of the pulmonary artery and branches are normal. Venous The inferior vena cava is dilated and collapses less than 50% with inspiration. Pericardium/Pleural There is no evidence of pericardial effusion. Prior Study Comparison Changes noted compared to prior study dated: 10/01/2022. Moderate LA and RA dilation. Mild RV dilation. Elevated filling pressures. Measurements 2D Linear Measurements IVSd: 0.98 0.6-0.9/0.6-1.0 cm LVIDd: 5.27 3.9-5.3/4.2-5.9 cm LVIDd Index: 2.55 2.4-3.2/2.2-3.1 cm/m2 LVIDs: 3.45 2.0-3.6 cm LVPWd: 1.21 0.7-1.1 cm LA Diam: 3.70 2.7-3.8/3.0-4.0 cm LAIDs Index: 1.79 1.5-2.3 cm/m2 LV Mass: 279.72 67-162/88-224 g LV Mass Index: 135.13 43-95/49-115 g/m2 LVOT Diam: 2.10 3.0+(-)1.3 cm 2D Systolic Function EF 4C: 51.40 >55% EF 2C: 66.20 >55% EF BiP: 58.40 >55% Mitral Valve MV Pk E: 1.54 MV PK A: 0.87 MV Decel Time: 166.00 E/A: 1.80 E'Lateral: 7.64 E'Medial: 7.35 E/E' Med: 21.00 E/E' Lat: 20.20 PHT: 49.00 MVA PHT: 4.49 Decel Lem[place]: 9.27 Aortic Valve AoV Pk Gerard: 1.66 AoV Mn Gerard: 1.08 AoV VTI: 0.33 AoV Pk Grad: 11.00 Aov Mn Grad: 6.00 BRENNA Cont.VTI: 2.63 LVOT LVOT Pk Gerard: 1.20 LVOT Mn Gerard: 0.87 LVOT VTI: 0.25 LVOT Pk Grad: 6.00 LVOT Mn Grad: 3.00 LVOT Diam: 2.10 LVOT Area: 3.46 Diastolic Function MV Pk E: 1.54 MV Pk A: 0.87 E/A: 1.80 E'Medial: 7.35 E/E' Med: 21.00 E' Laterial: 7.64 E/E' Lat: 20.20 Right Ventricle TAPSE (mm): 18.00 TVS' Gerard: 12.70 Tricuspid Valve TR Pk Gerard: 1.63 TR Pk Grad: 11.00 RA Press: 15.00 RVSP: 26.00 Great Vessels Aorta Sinus of Valsalva: 3.80 2.0-3.5 cm Ao Asc: 3.50 2.1-3.4 cm Pulmonary Valve PV Pk Gerard: 1.14 Peak PV Grad: 5.00 Updated in Other Vendor System with Status of Final Armando Moody MD electronically signed on 01/29/2023 11:01:12 AM with status of Final
[2023-01-28] MEDS: Albuterol/Iprat 2.5/0.5MG 3 ML AMPUL.NEB INHALE ×3 (07:58→15:15)
[2023-01-28 08:02] LABS: Glucose, Whole Blood 95 mg/dL (60-115)
[2023-01-28 08:19] LABS: Anion Gap 14 (12-20); Blood Urea Nitrogen 37 mg/dL (9-16); Calcium 8.4 mg/dL (8.4-10.2); Carbon Dioxide 20 mmol/L (22-29); Chloride 111 mmol/L (96-108); Creatinine Clr Calc Pharmacy 18.7; Estimated Glomerular Filt Rate 14; Glucose Random 98 mg/dL (60-115); Potassium 4.2 mmol/L (3.3-5.1); Sodium 141 mmol/L (135-145)
[2023-01-28] MEDS: Doxycycline Monohydrate 100 MG CAPSULE PO ×2 (08:55→19:57)
[2023-01-28] MEDS: Furosemide 40 MG TABLET PO (08:56)
[2023-01-28] MEDS: Aspirin 81 MG TAB.CHEW PO (08:56)
[2023-01-28] MEDS: Isosorbide Mononitrate 60 MG TAB.ER.24H PO (08:56)
[2023-01-28] MEDS: hydrALAZINE HCl 50 MG TABLET PO (08:56)
[2023-01-28] MEDS: carvediloL 25 MG TABLET PO ×2 (08:56→19:57)
[2023-01-28] MEDS: NIFEdipine ER 30 MG TAB.ER.24 90 MG PO (08:56)
[2023-01-28 11:55] LABS: Glucose, Whole Blood 129 mg/dL (60-115)
--- NOTE | 2023-01-28 11:58 | PM.PNNEP ---
Subjective Subjective Date of Service: 01/28/23 Interval history: seen and examined feels better complains of less SOB Physical Exam Vital Signs: Vital Signs: Last Vital Signs Temp 98.9 F 01/28/23 07:24 Pulse 73 01/28/23 11:42 Resp 18 01/28/23 11:42 BP 177/79 H 01/28/23 07:24 Pulse Ox 93 01/28/23 07:24 O2 Del Method Room Air 01/28/23 07:24 O2 Flow Rate 2 01/28/23 04:00 BMI result Body Mass Index 33.1 Const: General: alert and awake HEENT: Head: Yes normocephalic and Yes atraumatic Neck: Neck: Yes supple Resp: Auscultation: diminished lung sounds Cardio: Heart sounds: S1 normal heart sound present and S2 normal heart sound present GI: Palpation (GI): Soft to palpation and nontender Extrem: General: Yes edema Objective Data Labs 01/27/23 07:45 01/28/23 07:18 Labs: Laboratory Results - last 24 hr 01/27/23 01/27/23 01/28/23 14:11 20:26 02:02 Sodium Potassium Chloride Carbon Dioxide Anion Gap BUN Creatinine Estim Creat Clear Calc Estimated GFR POC Glucose 162 H 196 H 124 H Random Glucose Calcium 01/28/23 01/28/23 01/28/23 07:18 07:30 11:32 Sodium 141 Potassium 4.2 Chloride 111 H Carbon Dioxide 20 L Anion Gap 14 BUN 37 H Creatinine 4.22 H* Estim Creat Clear Calc 18.7 Estimated GFR 14 POC Glucose 95 129 H Random Glucose 98 Calcium 8.4 Microbiology Microbiology Results: Microbiology 01/21/23 08:03 Blood - Venous Blood Culture - Final No growth after 5 days. 01/21/23 07:55 Blood - Venous Blood Culture - Final No growth after 5 days. 01/21/23 Unknown Urine clean catch - Urine lawrence top Urine Culture - Final No growth. Procedures Date of Service Date of Service: 01/28/23 Assessment & Plan Assessment and plan (1) KEYA (acute kidney injury): Status: Inactive (2) (HFpEF) heart failure with preserved ejection fraction: Status: Acute (3) Renal artery stenosis: Status: Acute (4) CKD (chronic kidney disease) stage 3, GFR 30-59 ml/min: Status: Acute Plan kidney function stable non oliguric multifactorial KEYA: -CRS -acute tubular injury -acute hypertensive nephrosclerosis required HD but now non oliguric and kidney function stable known moderate CKD due to DM/HTN/vascular disease baseline Scr ~ 2 mg/dl proteinuria 1.8 g previous US showed ? right renal artery stenosis elevated BP h/o HFpEF REC c/w furosemide 40 mg daily increase nifedipine 60 mg bid no indication for [employer] P[employer]ENGER monitor urine output follow kidney function and electrolytes Time Spent With Patient Time: Total time managing care of this patient today ____ minutes. Progress Note: Quality Stroke Does the patient have a stroke diagnosis?: No
--- NOTE | 2023-01-28 13:18 | HO.PM.IMPN ---
Subjective Subjective Date of Service: 01/28/23 Interval History: chf Review of Systems sob improving ,denies any chest pain htn still high no fever or abd pain,has ccy drain Physical Exam Vital Signs: Vital Signs: Last Vital Signs Temp 98.5 F 01/28/23 12:00 Pulse 75 01/28/23 12:00 Resp 20 01/28/23 12:00 BP 140/60 H 01/28/23 12:00 Pulse Ox 92 01/28/23 12:00 O2 Del Method Room Air 01/28/23 12:00 O2 Flow Rate 2 01/28/23 04:00 BMI result Body Mass Index 33.1 Appearance: Alert.? Oriented X3.sob seems improvin cvs: rrr, [id number] , no murmur res: air entry fair ,dimished at bases ,minimum rales . abd: no rebound or guarding ,nt , bs present. has ccy tube - small amount yelowish/greenish fluid had valerio-just got empty as per patient ext pulses present , no cyanosis . neuro: axo3 , nonfocal. Objective Data Active Medications Acetaminophen (Acetaminophen Supp 650 Mg Supp.Rect) 650 mg AK Q6H PRN PRN Reason: Pain, Mild (Pain Scale 1-3) Acetaminophen (Acetaminophen 325 Mg Tablet) 650 mg PO Q6H PRN PRN Reason: Pain, Mild (Pain Scale 1-3) Last Admin: 01/22/23 22:57 Dose: 650 mg Documented By: WILIAN Albuterol/Ipratropium (Albuterol/Iprat 2.5/0.5mg 3 Ml Ampul.Neb) 3 ml INHALE Q4H PRN PRN Reason: Wheezing Last Admin: 01/26/23 00:55 Dose: 3 ml Documented By: MATHTEW Albuterol/Ipratropium (Albuterol/Iprat 2.5/0.5mg 3 Ml Ampul.Neb) 3 ml INHALE RQ4H WHILE AWAKE [facility]NA[facility] Last Admin: 01/28/23 11:41 Dose: 3 ml Documented By: ISI Amoxicillin/Clavulanate Potassium (Amoxicillin/Potassium Clav 500 Mg Tablet) 500 mg PO Q12H [facility] Last Admin: 01/28/23 13:02 Dose: 500 mg Documented By: SHELIA Aspirin (Aspirin 81 Mg Tab.Chew) 81 mg PO DAILY [facility] Last Admin: 01/28/23 08:56 Dose: 81 mg Documented By: SHELIA Carvedilol (Carvedilol 25 Mg Tablet) 25 mg PO BID [facility]; Protocol Last Admin: 01/28/23 08:56 Dose: 25 mg Documented By: SHELIA Dextrose (Dextrose 50 % 25 Gm/50 Ml Syringe) 25 gm IVPUSH Q15M PRN; Protocol PRN Reason: per Hypoglycemia Standing Ord. Last Admin: 01/23/23 13:55 Dose: 25 gm Documented By: LAUREN Docusate Sodium (Docusate Sodium 100 Mg Capsule) 100 mg PO BEDTIME [facility] Last Admin: 01/27/23 20:28 Dose: 100 mg Documented By: DELON Doxazosin Mesylate (Doxazosin Mesylate 1 Mg Tablet) 1 mg PO BEDTIME [facility]; Protocol Doxycycline Monohydrate (Doxycycline Monohydrate 100 Mg Capsule) 100 mg PO Q12H [facility] Last Admin: 01/28/23 08:55 Dose: 100 mg Documented By: SHELIA Fluticasone Propionate (Fluticasone Propionate Nasal 16 Gm [employer]) 2 spray NOSTRIL-B DAILY PRN PRN Reason: Congestion Furosemide (Furosemide 40 Mg Tablet) 40 mg PO DAILY [facility]; Protocol Last Admin: 01/28/23 08:56 Dose: 40 mg Documented By: SHELIA Glucose (Glucose Gel 15 Gm Gel..Gram.) 15 gm PO Q15M PRN; Protocol PRN Reason: per Hypoglycemia Standing Ord. Heparin Sodium (Porcine) (Heparin Sodium,Porcine 5,000 Unit/Ml Vial) 5,000 unit SUBCUT Q12H [facility] Last Admin: 01/28/23 05:53 Dose: 5,000 unit Documented By: NUNO Hydralazine HCl (Hydralazine Hcl 20 Mg/Ml Vial) 10 mg IVPUSH Q6H PRN; Protocol PRN Reason: SBP > 170 Last Admin: 01/28/23 05:51 Dose: 10 mg Documented By: NUNO Comments: BP 183/78 Hydralazine HCl (Hydralazine Hcl 50 Mg Tablet) 100 mg PO TID [facility]; Protocol Isosorbide Mononitrate (Isosorbide Mononitrate 60 Mg Tab.Er.24h) 60 mg PO DAILY [facility]; Protocol Last Admin: 01/28/23 08:56 Dose: 60 mg Documented By: SHELIA Nifedipine (Nifedipine Er 30 Mg Tab.Er.24) 90 mg PO DAILY [facility]; Protocol Last Admin: 01/28/23 08:56 Dose: 90 mg Documented By: SHELIA Omeprazole (Omeprazole 20 Mg Capsule.) 20 mg PO DAILY@0630 [facility] Last Admin: 01/28/23 05:07 Dose: 20 mg Documented By: NUNO Ondansetron HCl (Ondansetron Hcl 4 Mg/2 Ml Vial) 4 mg IVPUSH Q8H PRN PRN Reason: Nausea and Vomiting Sodium Chloride (0.9 % Sodium Chloride Flush 3 Ml Syringe) 3 ml IVFLUSH QSHIFT [facility] Last Admin: 01/28/23 08:57 Dose: 3 ml Documented By: SHELIA Labs 01/27/23 07:45 01/28/23 07:18 Labs: Laboratory Results - last 24 hr 01/27/23 01/27/23 01/28/23 14:11 20:26 02:02 Anion Gap Estim Creat Clear Calc Estimated GFR POC Glucose 162 H 196 H 124 H Random Glucose Calcium 01/28/23 01/28/23 01/28/23 07:18 07:30 11:32 Anion Gap 14 Estim Creat Clear Calc 18.7 Estimated GFR 14 POC Glucose 95 129 H Random Glucose 98 Calcium 8.4 Assessment and Plan (1) CHF (congestive heart failure): Status: Acute (2) Hypertension: Status: Acute Assessment and Plan: 67 yo M with multiple medical issues including DM type 2, s/p L BKA and R TMA, Stabe 3b CKD, HTN, HLD, HFpEF, Renal artery stenosis, LIVE, HLD and PAD who is being admitted for: KEYA on CKD 3b hyperkalemia seems improved with HD. Nephrology consult noted-c/w renal hypoperfusion form LOW BPs--> ischemic ATN vs pre-renal: nontunneled catheter for HD-got HDx1 . cr is aroun 4.2-4.5 producing urine keep valerio for today for monitering i/o. uncontrolled htn intial Blurred visions / hypotension: improved suspected BP secondary to low BP (normally the patient's BP 140s-180s); improving as his BP improved likely cause of his low BP is secondary to recent adjustments to his medications + underlying CHF and renal artery stenosis bp still high continue coreg ,imdur ,nifedipine,adjusted hydralazine 100 mg tid ,added cardura use hydralazine iv is bp persistently >170. 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 General surgery consult-s/p CCY tube,daining well,no pain switched to po antibiotics.(amoxixlllin) DM with boderline flactuating fs: from 90-150 P.o. take and fingersticks seems living. monitor POC glucose ,hold insulin avoid coverage below 200 mg/ dL if CCY drain not placed today-then will start him on clear liquids . acute on ch HFpEF excerebation: chest exam-very few scattered rales ,improving sob improving bnp [phone] chest x-ray 01/26: of which is concerning for pulmonary vascular congestion and pulmonary edema. received iv lasix 80 mg and afterwards diuresed 3liter since yesterday moniter i/o neg 2.8 ( total i/o 10.1/12.9) ,daily weights sob seems improving echo. d/w nephro-given lasix 80 mg iv yesterday-switched to 40 mg iv lasix -may switch to po lasix Renal artery stenosis was to have surgery with vascular eval -further workup outpatient. Anemia chronic, h/h at about baseline(7.8/25.8) monitor Full Code DVT pptx - subcut heparin (to start after CCY ,So far continue [facility] devices-scd) ongoing hopsitlisation need:htn un controlled- need htn med adjustment, who was blood pressure monitoring, CHF needs IV diuretics, close renal function electrolyte monitoring. Quality Stroke Does the patient have a stroke diagnosis?: No VTE Prior VTE?: No VTE Risk Level:: Medical - moderate - high VTE Device Contraindication: Treatment Not Indicated VTE Drug Contraindication: N/A - Med Ordered
--- NOTE | 2023-01-28 13:45 | MHC.CM.PN ---
EMR REVIEWED, PT W/NEW HD, UNCONTROLLED BP W/MED CHANGES, NOT YET READY FOR DC, ANTIC PT WILL NEED STR VS HOME W/SERVICES ONCE MEDICALLY CLEARED, CM WILL CONT TO FOLLOW DC NEEDS.
[2023-01-28 16:10] LABS: Glucose, Whole Blood 147 mg/dL (60-115)
[2023-01-28] MEDS: hydrALAZINE HCl 50 MG TABLET 100 MG PO ×2 (17:26→19:57)
--- NOTE | 2023-01-28 17:37 | PC.NURSE ---
Harris catheter removed at 1730. Pt DTV by 2230. Harris catheter intact upon removal; pt tolerated removal well.
[2023-01-28] MEDS: Doxazosin Mesylate 1 MG TABLET PO (19:58)
[2023-01-28 20:58] LABS: Glucose, Whole Blood 193 mg/dL (60-115)
[2023-01-29] VITALS (10 sets, daily range): BP systolic 122–169; BP diastolic 49–77; PULSE 68–74; RESP 18–20; TEMP 36.3–37.6; O2SAT 91–95; BMI 34.9
[2023-01-29] MEDS: Acetaminophen 325 MG TABLET 650 MG PO ×3 (00:11→21:35)
[2023-01-29] MEDS: Amoxicillin/Potassium Clav 500 MG TABLET PO ×3 (00:12→23:26)
[2023-01-29] MEDS: Melatonin 3 MG TABLET 6 MG PO ×2 (00:29→21:35)
[2023-01-29 03:32] LABS: Glucose, Whole Blood 108 mg/dL (60-115)
[2023-01-29] MEDS: Omeprazole 20 MG CAPSULE.DR PO (07:30)
[2023-01-29] MEDS: Heparin Sodium,Porcine 5,000 UNIT/ML VIAL 5000 UNIT SUBCUT ×2 (07:30→17:20)
[2023-01-29 07:41] LABS: Glucose, Whole Blood 112 mg/dL (60-115)
[2023-01-29 08:27] LABS: Anion Gap 13 (12-20); Blood Urea Nitrogen 40 mg/dL (9-16); Calcium 8.6 mg/dL (8.4-10.2); Carbon Dioxide 19 mmol/L (22-29); Chloride 111 mmol/L (96-108); Glucose Random 108 mg/dL (60-115); Potassium 4.1 mmol/L (3.3-5.1); Sodium 139 mmol/L (135-145)
[2023-01-29] MEDS: Albuterol/Iprat 2.5/0.5MG 3 ML AMPUL.NEB INHALE ×4 (08:41→18:54)
[2023-01-29 08:47] LABS: Estimated Glomerular Filt Rate 13
[2023-01-29] MEDS: Isosorbide Mononitrate 60 MG TAB.ER.24H PO (09:46)
[2023-01-29] MEDS: NIFEdipine ER 30 MG TAB.ER.24 90 MG PO (09:46)
[2023-01-29] MEDS: Doxycycline Monohydrate 100 MG CAPSULE PO (09:46)
[2023-01-29] MEDS: hydrALAZINE HCl 50 MG TABLET 100 MG PO ×3 (09:46→21:31)
[2023-01-29] MEDS: Aspirin 81 MG TAB.CHEW PO (09:46)
[2023-01-29] MEDS: Furosemide 40 MG TABLET PO (09:46)
[2023-01-29] MEDS: 0.9 % Sodium Chloride Flush 3 ML SYRINGE IVFLUSH ×3 (09:47→21:32)
[2023-01-29] MEDS: carvediloL 25 MG TABLET PO ×2 (09:47→21:31)
--- NOTE | 2023-01-29 11:30 | P.PNNP_ITS ---
Subjective Subjective Date of Service: 01/29/23 Interval history: seen and examined sitting out of bed denies SOB Physical Exam 2 Vital Signs: Vital Signs: Last Vital Signs Temp 98.2 F 01/29/23 11:05 Pulse 71 01/29/23 11:05 Resp 20 01/29/23 11:05 BP 122/59 L 01/29/23 11:05 Pulse Ox 93 01/29/23 11:05 O2 Del Method Room Air 01/29/23 11:05 O2 Flow Rate 2 01/28/23 04:00 BMI result Body Mass Index 34.9 Const: General: alert and awake HEENT: Head: Yes normocephalic and Yes atraumatic Neck: Neck: Yes supple Resp: Auscultation: diminished lung sounds Cardio: Heart sounds: S1 normal heart sound present and S2 normal heart sound present GI: Palpation (GI): Soft to palpation and nontender Extrem: General: Yes edema Objective Data Labs 01/27/23 07:45 01/29/23 07:01 Labs: Laboratory Results - last 24 hr 01/28/23 01/28/23 01/28/23 11:32 15:37 20:29 Hold Purple Top Sodium Potassium Chloride Carbon Dioxide Anion Gap BUN Creatinine Estim Creat Clear Calc Estimated GFR POC Glucose 129 H 147 H 193 H Random Glucose Calcium 01/29/23 01/29/23 01/29/23 03:25 07:01 07:37 Hold Purple Top SEE NOTE Sodium 139 Potassium 4.1 Chloride 111 H Carbon Dioxide 19 L Anion Gap 13 BUN 40 H Creatinine 4.50 H* Estim Creat Clear Calc 18.0 Estimated GFR 13 POC Glucose 108 112 Random Glucose 108 Calcium 8.6 Microbiology Microbiology Results: Microbiology 01/21/23 08:03 Blood - Venous Blood Culture - Final No growth after 5 days. 01/21/23 07:55 Blood - Venous Blood Culture - Final No growth after 5 days. 01/21/23 Unknown Urine clean catch - Urine lawrence top Urine Culture - Final No growth. Procedures Date of Service Date of Service: 01/29/23 Assessment & Plan Assessment and plan (1) KEYA (acute kidney injury): Status: Inactive (2) (HFpEF) heart failure with preserved ejection fraction: Status: Acute (3) Renal artery stenosis: Status: Acute (4) CKD (chronic kidney disease) stage 3, GFR 30-59 ml/min: Status: Acute Plan kidney function overall stable non oliguric multifactorial KEYA: -CRS -acute tubular injury -acute hypertensive nephrosclerosis required HD but now non oliguric and kidney function stable known moderate CKD due to DM/HTN/vascular disease baseline Scr ~ 2 mg/dl proteinuria 1.8 g previous US showed ? 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 Progress Note: Quality Stroke Does the patient have a stroke diagnosis?: No
--- NOTE | 2023-01-29 12:44 | P.PNIM_ITS ---
Subjective Subjective Date of Service: 01/29/23 Interval History: Doing better, no sob, no chest pain and mking urine Physical Exam 2 Vital Signs: Vital Signs: Last Vital Signs Temp 98.2 F 01/29/23 11:05 Pulse 68 01/29/23 11:33 Resp 20 01/29/23 11:33 BP 122/59 L 01/29/23 11:05 Pulse Ox 93 01/29/23 11:05 O2 Del Method Room Air 01/29/23 11:05 O2 Flow Rate 2 01/28/23 04:00 BMI result Body Mass Index 34.9 Appearance: Alert.? Oriented X3.sob seems improvin cvs: rrr, [id number] , no murmur res: air entry fair ,dimished at bases ,minimum rales . abd: no rebound or guarding ,nt , bs present. has ccy tube - small amount yelowish/greenish fluid had valerio-just got empty as per patient ext pulses present , no cyanosis . neuro: axo3 , nonfocal. Objective Data Active Medications Acetaminophen (Acetaminophen Supp 650 Mg Supp.Rect) 650 mg [place] Q6H PRN PRN Reason: Pain, Mild (Pain Scale 1-3) Acetaminophen (Acetaminophen 325 Mg Tablet) 650 mg PO Q6H PRN PRN Reason: Pain, Mild (Pain Scale 1-3) Last Admin: 01/29/23 00:11 Dose: 650 mg Documented By: MICHELLE Albuterol/Ipratropium (Albuterol/Iprat 2.5/0.5mg 3 Ml Ampul.Neb) 3 ml INHALE Q4H PRN PRN Reason: Wheezing Last Admin: 01/26/23 00:55 Dose: 3 ml Documented By: MATTHEW Albuterol/Ipratropium (Albuterol/Iprat 2.5/0.5mg 3 Ml Ampul.Neb) 3 ml INHALE RQ4H WHILE AWAKE [facility] Last Admin: 01/29/23 11:33 Dose: 3 ml Documented By: DELFINA Amoxicillin/Clavulanate Potassium (Amoxicillin/Potassium Clav 500 Mg Tablet) 500 mg PO Q12H [facility] Last Admin: 01/29/23 00:12 Dose: 500 mg Documented By: MICHELLE Aspirin (Aspirin 81 Mg Tab.Chew) 81 mg PO DAILY [facility] Last Admin: 01/29/23 09:46 Dose: 81 mg Documented By: LINCOLN Carvedilol (Carvedilol 25 Mg Tablet) 25 mg PO BID [facility]; Protocol Last Admin: 01/29/23 09:47 Dose: 25 mg Documented By: LINCOLN Dextrose (Dextrose 50 % 25 Gm/50 Ml Syringe) 25 gm IVPUSH Q15M PRN; Protocol PRN Reason: per Hypoglycemia Standing Ord. Last Admin: 01/23/23 13:55 Dose: 25 gm Documented By: LAUREN Docusate Sodium (Docusate Sodium 100 Mg Capsule) 100 mg PO BEDTIME [facility] Last Admin: 01/28/23 20:04 Dose: Not Given Documented By: NAKUL Non-Admin Reason: Patient Refused Doxazosin Mesylate (Doxazosin Mesylate 1 Mg Tablet) 1 mg PO BEDTIME [facility]; Protocol Last Admin: 01/28/23 19:58 Dose: 1 mg Documented By: NAKUL Doxycycline Monohydrate (Doxycycline Monohydrate 100 Mg Capsule) 100 mg PO Q12H [facility] Last Admin: 01/29/23 09:46 Dose: 100 mg Documented By: LINCOLN Fluticasone Propionate (Fluticasone Propionate Nasal 16 Gm [place]) 2 spray NOSTRIL-B DAILY PRN PRN Reason: Congestion Furosemide (Furosemide 40 Mg Tablet) 40 mg PO DAILY [facility]; Protocol Last Admin: 01/29/23 09:46 Dose: 40 mg Documented By: LINCOLN Glucose (Glucose Gel 15 Gm Gel..Gram.) 15 gm PO Q15M PRN; Protocol PRN Reason: per Hypoglycemia Standing Ord. Heparin Sodium (Porcine) (Heparin Sodium,Porcine 5,000 Unit/Ml Vial) 5,000 unit SUBCUT Q12H [facility] Last Admin: 01/29/23 07:30 Dose: 5,000 unit Documented By: MICHELLE Hydralazine HCl (Hydralazine Hcl 20 Mg/Ml Vial) 10 mg IVPUSH Q6H PRN; Protocol PRN Reason: SBP > 170 Last Admin: 01/28/23 05:51 Dose: 10 mg Documented By: NUNO Comments: BP 183/78 Hydralazine HCl (Hydralazine Hcl 50 Mg Tablet) 100 mg PO TID [facility]; Protocol Last Admin: 01/29/23 09:46 Dose: 100 mg Documented By: LINCOLN Isosorbide Mononitrate (Isosorbide Mononitrate 60 Mg Tab.Er.24h) 60 mg PO DAILY [facility]; Protocol Last Admin: 01/29/23 09:46 Dose: 60 mg Documented By: LINCOLN Melatonin (Melatonin 3 Mg Tablet) 6 mg PO BEDTIME PRN PRN Reason: Insomnia Last Admin: 01/29/23 00:29 Dose: 6 mg Documented By: MICHELLE Nifedipine (Nifedipine Er 30 Mg Tab.Er.24) 90 mg PO DAILY [facility]; Protocol Last Admin: 01/29/23 09:46 Dose: 90 mg Documented By: LINCOLN Omeprazole (Omeprazole 20 Mg Capsule.Dr) 20 mg PO DAILY@0630 [facility] Last Admin: 01/29/23 07:30 Dose: 20 mg Documented By: MICHELLE Ondansetron HCl (Ondansetron Hcl 4 Mg/2 Ml Vial) 4 mg IVPUSH Q8H PRN PRN Reason: Nausea and Vomiting Sodium Chloride (0.9 % Sodium Chloride Flush 3 Ml Syringe) 3 ml IVFLUSH QSHIFT [facility] Last Admin: 01/29/23 09:50 Dose: 3 ml Documented By: LINCOLN Labs 01/27/23 07:45 01/29/23 07:01 Labs: Laboratory Results - last 24 hr 01/28/23 01/28/23 01/29/23 15:37 20:29 03:25 Hold Purple Top Anion Gap Estim Creat Clear Calc Estimated GFR POC Glucose 147 H 193 H 108 Random Glucose Calcium 01/29/23 01/29/23 07:01 07:37 Hold Purple Top SEE NOTE Anion Gap 13 Estim Creat Clear Calc 18.0 Estimated GFR 13 POC Glucose 112 Random Glucose 108 Calcium 8.6 Assessment and Plan (1) CHF (congestive heart failure): Status: Acute (2) Hypertension: Status: Acute Assessment and Plan: 67 yo M with multiple medical issues including DM type 2, s/p L BKA and R TMA, Stabe 3b CKD, HTN, HLD, HFpEF, Renal artery stenosis, LIVE, HLD and PAD who is being admitted for: KEYA on CKD 3b d/t renal hypoperfusion d/t hypotension, had dialysis x 1, making urine, Cr is stable and no plan for further dialysis at this time Hyperkalemia resolved. HTN, previously uncontrolled. BP is now better. 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 Blood sugars have been pretty low and not meds right now. Will add SSI and continue holding home meds check A1 C Renal artery stenosis was to have surgery with vascular eval -further workup outpatient. Anemia of chronic disease- h/h stable. Full Code DVT pptx - subcut heparin (to start after CCY ,So far continue [facility] devices-scd) need for inpatient: ongoing monitoring for acute renal failure, heart failure and uncontrolled bP with close med adjustment, anticipate discharge in one day Quality Stroke Does the patient have a stroke diagnosis?: No VTE Prior VTE?: No VTE Risk Level:: Medical - moderate - high VTE Device Contraindication: Treatment Not Indicated VTE Drug Contraindication: N/A - Med Ordered
[2023-01-29 13:47] LABS: Estimated Average Glucose 117 mg/dL; Hemoglobin A1c % 5.7 % (<6.0)
[2023-01-29 13:50] LABS: Glucose, Whole Blood 188 mg/dL (60-115)
[2023-01-29 15:56] LABS: Glucose, Whole Blood 162 mg/dL (60-115)
[2023-01-29] MEDS: Insulin Lispro 100 UNIT/ML 3 ML VIAL SUBCUT ×2 (17:20→21:31)
[2023-01-29 20:18] LABS: Glucose, Whole Blood 152 mg/dL (60-115)
[2023-01-29] MEDS: Docusate Sodium 100 MG CAPSULE PO (21:31)
[2023-01-29] MEDS: Doxazosin Mesylate 1 MG TABLET PO (21:31)
[2023-01-30] VITALS (11 sets, daily range): BP systolic 134–171; BP diastolic 58–73; PULSE 71–78; RESP 16–22; TEMP 36.5–37.2; O2SAT 87–98; BMI 35.3
[2023-01-30 03:31] LABS: Glucose, Whole Blood 93 mg/dL (60-115)
[2023-01-30] MEDS: Heparin Sodium,Porcine 5,000 UNIT/ML VIAL 5000 UNIT SUBCUT ×2 (06:20→17:47)
[2023-01-30] MEDS: Omeprazole 20 MG CAPSULE.DR PO (06:20)
[2023-01-30 07:23] LABS: Glucose, Whole Blood 95 mg/dL (60-115)
[2023-01-30] MEDS: Albuterol/Iprat 2.5/0.5MG 3 ML AMPUL.NEB INHALE ×3 (08:21→14:52)
[2023-01-30] MEDS: Insulin Lispro 100 UNIT/ML 3 ML VIAL SUBCUT ×4 (08:51→20:37)
[2023-01-30] MEDS: hydrALAZINE HCl 50 MG TABLET 100 MG PO ×3 (08:52→20:37)
[2023-01-30] MEDS: Furosemide 40 MG TABLET PO (08:52)
[2023-01-30] MEDS: Isosorbide Mononitrate 60 MG TAB.ER.24H PO (08:52)
[2023-01-30] MEDS: Aspirin 81 MG TAB.CHEW PO (08:52)
[2023-01-30] MEDS: carvediloL 25 MG TABLET PO ×2 (08:52→20:37)
[2023-01-30] MEDS: NIFEdipine ER 30 MG TAB.ER.24 90 MG PO (08:53)
[2023-01-30] MEDS: 0.9 % Sodium Chloride Flush 3 ML SYRINGE IVFLUSH ×3 (08:53→20:37)
[2023-01-30 09:51] LABS: Anion Gap 14 (12-20); Blood Urea Nitrogen 45 mg/dL (9-16); Calcium 8.7 mg/dL (8.4-10.2); Carbon Dioxide 18 mmol/L (22-29); Chloride 110 mmol/L (96-108); Creatinine Clr Calc Pharmacy 16.4; Estimated Glomerular Filt Rate 12; Glucose Random 105 mg/dL (60-115); Potassium 4.2 mmol/L (3.3-5.1); Sodium 138 mmol/L (135-145)
[2023-01-30 11:02] LABS: Glucose, Whole Blood 165 mg/dL (60-115)
--- NOTE | 2023-01-30 11:36 | P.PNNP_ITS ---
Subjective Subjective Date of Service: 01/30/23 Interval history: seen and examined no complaints sitting out of bed Physical Exam 2 Vital Signs: Vital Signs: Last Vital Signs Temp 98.6 F 01/30/23 11:08 Pulse 75 01/30/23 11:08 Resp 20 01/30/23 11:08 BP 143/58 H 01/30/23 11:08 Pulse Ox 98 01/30/23 11:08 O2 Del Method Room Air 01/30/23 11:08 O2 Flow Rate 2 01/30/23 03:18 BMI result Body Mass Index 35.3 Const: General: alert and awake HEENT: Head: Yes normocephalic and Yes atraumatic Neck: Neck: Yes supple Resp: Auscultation: diminished lung sounds Cardio: Heart sounds: S1 normal heart sound present and S2 normal heart sound present GI: Palpation (GI): Soft to palpation and nontender Extrem: General: Yes edema Objective Data Labs 01/27/23 07:45 01/30/23 08:38 Labs: Laboratory Results - last 24 hr 01/29/23 01/29/23 01/29/23 13:13 13:46 15:47 Sodium Potassium Chloride Carbon Dioxide Anion Gap BUN Creatinine Estim Creat Clear Calc Estimated GFR POC Glucose 188 H 162 H Random Glucose Estimat Average Glucose 117 Hemoglobin A1c % 5.7 Calcium 01/29/23 01/30/23 01/30/23 19:56 03:20 07:13 Sodium Potassium Chloride Carbon Dioxide Anion Gap BUN Creatinine Estim Creat Clear Calc Estimated GFR POC Glucose 152 H 93 95 Random Glucose Estimat Average Glucose Hemoglobin A1c % Calcium 01/30/23 01/30/23 08:38 10:55 Sodium 138 Potassium 4.2 Chloride 110 H Carbon Dioxide 18 L Anion Gap 14 BUN 45 H Creatinine 4.96 H* Estim Creat Clear Calc 16.4 Estimated GFR 12 POC Glucose 165 H Random Glucose 105 Estimat Average Glucose Hemoglobin A1c % Calcium 8.7 Microbiology Microbiology Results: Microbiology 01/21/23 08:03 Blood - Venous Blood Culture - Final No growth after 5 days. 01/21/23 07:55 Blood - Venous Blood Culture - Final No growth after 5 days. 01/21/23 Unknown Urine clean catch - Urine lawrence top Urine Culture - Final No growth. Procedures Date of Service Date of Service: 01/30/23 Assessment & Plan Assessment and plan (1) KEYA (acute kidney injury): Status: Inactive (2) (HFpEF) heart failure with preserved ejection fraction: Status: Acute (3) Renal artery stenosis: Status: Acute (4) CKD (chronic kidney disease) stage 3, GFR 30-59 ml/min: Status: Acute Plan multifactorial KEYA: -CRS -acute tubular injury -acute hypertensive nephrosclerosis required HD but now non oliguric and kidney function stable known moderate CKD due to DM/HTN/vascular disease baseline Scr ~ 2 mg/dl proteinuria 1.8 g previous US showed ? right renal artery stenosis would avoid MRA given eGFR and would also hold off CTA due to risk of superimposed CI-KEYA h/o HFpEF REC hold furosemide daily weight resume furosemide if weight up >= 3 lbs add sodium bicarbonate 650 mg bid no indication for COLLECTIONS SPECIALIST monitor urine output follow kidney function and electrolytes can be dc from renal standpoint f/u with Dr patel his outpatient actuary clerk in a week Time Spent With Patient Time: Total time managing care of this patient today ____ minutes. Progress Note: Quality Stroke Does the patient have a stroke diagnosis?: No
[2023-01-30] MEDS: Amoxicillin/Potassium Clav 500 MG TABLET PO (12:13)
--- NOTE | 2023-01-30 16:03 | MHC.CM.PN ---
EMR reviewed and per MD rounds, pt is not medically cleared for D/C today, anticipating pt will likely D/C tomorrow. CM will continue to follow.
[2023-01-30 16:55] LABS: Glucose, Whole Blood 158 mg/dL (60-115)
--- NOTE | 2023-01-30 19:39 | ECG_ITS ---
Test Reason : cp Blood Pressure : / mmHG Vent. Rate : 077 BPM Atrial Rate : 000 BPM P-R Int : 000 ms QRS Dur : 094 ms QT Int : 368 ms P-R-T Axes : 000 029 -01 degrees QTc Int : 416 ms Normal sinus rhythm Nonspecific T wave abnormality Abnormal ECG When compared with ECG of 21-JAN-2023 14:01, [place] interval has decreased Referred By: [facility] Electronically Signed By:SWEETIE CASTRO MD
[2023-01-30 19:44] LABS: Glucose, Whole Blood 195 mg/dL (60-115)
[2023-01-30] MEDS: Doxazosin Mesylate 1 MG TABLET PO (20:37)
[2023-01-30] MEDS: Docusate Sodium 100 MG CAPSULE PO (20:37)
--- NOTE | 2023-01-30 21:17 | PM.EVENT ---
Event Note Date of Service: 01/30/23 Event Note: pt hypoxcic with O2 dropping to mid 80s, tachycardic, crackles heard on xray and complaining of right sided chest pain, xray showing pleural effusion. weight also noted to have gone up around 3 Kg in the past 2 days. will obtain bnp and give one dose of IV lasix. placed on O2 Time Spent With Patient Time: Total time managing care of this patient today ____ minutes.
[2023-01-30] MEDS: Furosemide 40 MG/4 ML VIAL IVPUSH (21:44)
[2023-01-30 21:47] LABS: Anion Gap 16 (12-20); Blood Urea Nitrogen 49 mg/dL (9-16); Calcium 8.6 mg/dL (8.4-10.2); Carbon Dioxide 18 mmol/L (22-29); Chloride 108 mmol/L (96-108); Creatinine Clr Calc Pharmacy 15.8; Estimated Glomerular Filt Rate 11; Glucose Random 200 mg/dL (60-115); Potassium 4.5 mmol/L (3.3-5.1); Sodium 137 mmol/L (135-145)
[2023-01-30 22:08] LABS: B Type Natriuretic Peptide 546 pg/mL (<100)
[2023-01-31] VITALS (9 sets, daily range): BP systolic 147–189; BP diastolic 61–80; PULSE 63–96; RESP 16–20; TEMP 36.1–38.2; O2SAT 93–98; BMI 34.5
[2023-01-31] MEDS: Amoxicillin/Potassium Clav 500 MG TABLET PO ×2 (00:38→11:54)
[2023-01-31 01:48] LABS: Glucose, Whole Blood 133 mg/dL (60-115)
--- NOTE | 2023-01-31 03:41 | PC.NURSE ---
At approx. 1935 pt c/o right sided chest pain. Tachypnea to the mid 20s, O2 sats down to 87% on room air. 2L O2 applied and O2 sats improved to the mid 90s. MD notified. EKG, CXR, and labs obtained. CXR showing right pleural effusion, MD aware and notified of all results. 1x dose 40mg IV Lasix ordered and given with good UO. EKG showing accelerated junctional at 1940, upon tele review around 1999 pt back in NSR with 1st degree HB.
[2023-01-31] MEDS: Acetaminophen 325 MG TABLET 650 MG PO ×2 (04:09→23:30)
[2023-01-31] MEDS: Heparin Sodium,Porcine 5,000 UNIT/ML VIAL 5000 UNIT SUBCUT ×2 (06:10→18:48)
[2023-01-31] MEDS: Omeprazole 20 MG CAPSULE.DR PO (06:10)
[2023-01-31 07:37] LABS: Glucose, Whole Blood 117 mg/dL (60-115)
[2023-01-31] MEDS: Albuterol/Iprat 2.5/0.5MG 3 ML AMPUL.NEB INHALE ×3 (07:43→19:35)
[2023-01-31] MEDS: NIFEdipine ER 30 MG TAB.ER.24 90 MG PO (08:52)
[2023-01-31] MEDS: 0.9 % Sodium Chloride Flush 3 ML SYRINGE IVFLUSH ×3 (08:52→22:49)
[2023-01-31] MEDS: Furosemide 40 MG TABLET PO (08:53)
[2023-01-31] MEDS: carvediloL 25 MG TABLET PO ×2 (08:53→22:49)
[2023-01-31] MEDS: hydrALAZINE HCl 50 MG TABLET 100 MG PO ×3 (08:53→22:48)
[2023-01-31] MEDS: Aspirin 81 MG TAB.CHEW PO (08:53)
[2023-01-31] MEDS: Isosorbide Mononitrate 60 MG TAB.ER.24H PO (08:53)
[2023-01-31 09:23] LABS: Anion Gap 15 (12-20); Blood Urea Nitrogen 52 mg/dL (9-16); Calcium 8.9 mg/dL (8.4-10.2); Carbon Dioxide 19 mmol/L (22-29); Chloride 110 mmol/L (96-108); Creatinine Clr Calc Pharmacy 14.4; Estimated Glomerular Filt Rate 10; Glucose Random 142 mg/dL (60-115); Potassium 4.5 mmol/L (3.3-5.1); Sodium 139 mmol/L (135-145)
--- NOTE | 2023-01-31 10:39 | HO.PM.IMPN ---
Subjective Subjective Date of Service: 01/31/23 Interval History: f/u on everardo, ckd, renal function is worsening, Physical Exam Vital Signs: Vital Signs: Last Vital Signs Temp 96.9 F 01/31/23 07:24 Pulse 72 01/31/23 07:45 Resp 18 01/31/23 07:45 BP 161/61 H 01/31/23 07:24 Pulse Ox 97 01/31/23 07:24 O2 Del Method Nasal Cannula 01/31/23 07:24 O2 Flow Rate 2 01/31/23 07:24 BMI result Body Mass Index 34.5 Appearance: Alert.? Oriented X3.?some sob cvs: rrr, [id number] , no murmur res: air entry fair ,dimished at bases ,few scattered rales . abd: no rebound or guarding ,ruq minimum discomfort, bs present. ext amputated limbs noted neuro: axo3 , nonfocal. Objective Data Active Medications Acetaminophen (Acetaminophen Supp 650 Mg Supp.Rect) 650 mg PA Q6H PRN PRN Reason: Pain, Mild (Pain Scale 1-3) Acetaminophen (Acetaminophen 325 Mg Tablet) 650 mg PO Q6H PRN PRN Reason: Pain, Mild (Pain Scale 1-3) Last Admin: 01/31/23 04:09 Dose: 650 mg Documented By: SONYA Albuterol/Ipratropium (Albuterol/Iprat 2.5/0.5mg 3 Ml Ampul.Neb) 3 ml INHALE RQ4H WHILE AWAKE [facility] Last Admin: 01/31/23 07:43 Dose: 3 ml Documented By: ISI Amoxicillin/Clavulanate Potassium (Amoxicillin/Potassium Clav 500 Mg Tablet) 500 mg PO Q12H [facility] Last Admin: 01/31/23 00:38 Dose: 500 mg Documented By: SONYA Aspirin (Aspirin 81 Mg Tab.Chew) 81 mg PO DAILY [facility] Last Admin: 01/31/23 08:53 Dose: 81 mg Documented By: LAUREN Carvedilol (Carvedilol 25 Mg Tablet) 25 mg PO BID [facility]; Protocol Last Admin: 01/31/23 08:53 Dose: 25 mg Documented By: LAUREN Dextrose (Dextrose 50 % 25 Gm/50 Ml Syringe) 25 gm IVPUSH Q15M PRN; Protocol PRN Reason: per Hypoglycemia Standing Ord. Last Admin: 01/23/23 13:55 Dose: 25 gm Documented By: LAUREN Docusate Sodium (Docusate Sodium 100 Mg Capsule) 100 mg PO BEDTIME [facility] Last Admin: 01/30/23 20:37 Dose: 100 mg Documented By: SONYA Doxazosin Mesylate (Doxazosin Mesylate 1 Mg Tablet) 1 mg PO BEDTIME [facility]; Protocol Last Admin: 01/30/23 20:37 Dose: 1 mg Documented By: SONYA Fluticasone Propionate (Fluticasone Propionate Nasal 16 Gm Bagley) 2 spray NOSTRIL-B DAILY PRN PRN Reason: Congestion Furosemide (Furosemide 40 Mg Tablet) 40 mg PO DAILY [facility]; Protocol Last Admin: 01/31/23 08:53 Dose: 40 mg Documented By: LAUREN Glucose (Glucose Gel 15 Gm Gel..Gram.) 15 gm PO Q15M PRN; Protocol PRN Reason: per Hypoglycemia Standing Ord. Heparin Sodium (Porcine) (Heparin Sodium,Porcine 5,000 Unit/Ml Vial) 5,000 unit SUBCUT Q12H [facility] Last Admin: 01/31/23 06:10 Dose: 5,000 unit Documented By: SONYA Hydralazine HCl (Hydralazine Hcl 20 Mg/Ml Vial) 10 mg IVPUSH Q6H PRN; Protocol PRN Reason: SBP > 170 Last Admin: 01/28/23 05:51 Dose: 10 mg Documented By: NUNO Comments: BP 183/78 Hydralazine HCl (Hydralazine Hcl 50 Mg Tablet) 100 mg PO TID [facility]; Protocol Last Admin: 01/31/23 08:53 Dose: 100 mg Documented By: LAUREN Insulin Human Lispro (Insulin Lispro 100 Unit/Ml 3 Ml Vial) 0 unit SUBCUT QIDACHS [facility]; Protocol Last Admin: 01/31/23 07:38 Dose: Not Given Documented By: LAUREN Non-Admin Reason: No Insulin Coverage Isosorbide Mononitrate (Isosorbide Mononitrate 60 Mg Tab.Er.24h) 60 mg PO DAILY [facility]; Protocol Last Admin: 01/31/23 08:53 Dose: 60 mg Documented By: LAUREN Melatonin (Melatonin 3 Mg Tablet) 6 mg PO BEDTIME PRN PRN Reason: Insomnia Last Admin: 01/29/23 21:35 Dose: 6 mg Documented By: JASMIN Nifedipine (Nifedipine Er 30 Mg Tab.Er.24) 90 mg PO DAILY [facility]; Protocol Last Admin: 01/31/23 08:52 Dose: 90 mg Documented By: LAUREN Omeprazole (Omeprazole 20 Mg Capsule.Dr) 20 mg PO DAILY@0630 [facility] Last Admin: 01/31/23 06:10 Dose: 20 mg Documented By: SONYA Ondansetron HCl (Ondansetron Hcl 4 Mg/2 Ml Vial) 4 mg IVPUSH Q8H PRN PRN Reason: Nausea and Vomiting Sodium Chloride (0.9 % Sodium Chloride Flush 3 Ml Syringe) 3 ml IVFLUSH QSHIFT [facility] Last Admin: 01/31/23 08:52 Dose: 3 ml Documented By: LAUREN Labs 01/27/23 07:45 01/31/23 08:47 Labs: Laboratory Results - last 24 hr 01/30/23 01/30/23 01/30/23 10:55 16:27 19:38 Anion Gap Estim Creat Clear Calc Estimated GFR POC Glucose 165 H 158 H 195 H Random Glucose Calcium B-Natriuretic Peptide 01/30/23 01/30/23 01/31/23 20:05 21:39 01:44 Anion Gap 16 Estim Creat Clear Calc 15.8 Estimated GFR 11 POC Glucose 133 H Random Glucose 200 H Calcium 8.6 B-Natriuretic Peptide 546 H 01/31/23 01/31/23 07:26 08:47 Anion Gap 15 Estim Creat Clear Calc 14.4 Estimated GFR 10 POC Glucose 117 H Random Glucose 142 H Calcium 8.9 B-Natriuretic Peptide Assessment and Plan (1) CHF (congestive heart failure): Status: Acute (2) Hypertension: Status: Acute Assessment and Plan: 67 yo M with multiple medical issues including DM type 2, s/p L BKA and R TMA, Stabe 3b CKD, HTN, HLD, HFpEF, Renal artery stenosis, LIVE, HLD and PAD who is being admitted for: EVERARDO on CKD 3b d/t renal hypoperfusion d/t hypotension, had dialysis x 1, making urine. Creatine is now steadily increase. Will discussed with nephrology re next step Hyperkalemia resolved. HTN, previously uncontrolled. BP is now better. 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 Surgery recommends tube to stay in 4 to 6 weeks Diabetes--was on tresiba, januvia, Glipizicde at home. Blood sugars have been pretty low and not meds right now. Hgb A1 C is 5.7 no meds at this time Renal artery stenosis was to have surgery stent, to be reassess in the future Anemia of chronic disease- h/h stable. Full Code DVT pptx - subcut heparin (to start after CCY ,So far continue mech devices-scd) need for inpatient: ongoing monitoring for acute renal failure worsening,, heart failure and uncontrolled bP with close med adjustment, anticipate discharge in one day Quality Stroke Does the patient have a stroke diagnosis?: No VTE Prior VTE?: No VTE Risk Level:: Medical - moderate - high VTE Device Contraindication: Treatment Not Indicated VTE Drug Contraindication: N/A - Med Ordered
[2023-01-31 11:38] LABS: Glucose, Whole Blood 165 mg/dL (60-115)
[2023-01-31] MEDS: Insulin Lispro 100 UNIT/ML 3 ML VIAL SUBCUT ×2 (11:54→22:48)
[2023-01-31 16:34] LABS: Glucose, Whole Blood 148 mg/dL (60-115)
[2023-01-31 21:05] LABS: Glucose, Whole Blood 210 mg/dL (60-115)
[2023-01-31] MEDS: Melatonin 3 MG TABLET 6 MG PO (22:49)
[2023-01-31] MEDS: Doxazosin Mesylate 1 MG TABLET PO (22:49)
[2023-01-31] MEDS: Docusate Sodium 100 MG CAPSULE PO (22:49)
[2023-02-01 00:33] LABS: Lactic Acid 0.6 mmol/L (0.5-2.0)
[2023-02-01] MEDS: Amoxicillin/Potassium Clav 500 MG TABLET PO ×2 (01:47→12:10)
[2023-02-01 04:00] VITALS: BP 160/70; PULSE 71; RESP 18; TEMP 37.2; O2SAT 95
[2023-02-01] MEDS: Acetaminophen 325 MG TABLET 650 MG PO ×2 (04:18→09:38)
[2023-02-01 06:00] VITALS: BMI 35.0
[2023-02-01] MEDS: Heparin Sodium,Porcine 5,000 UNIT/ML VIAL 5000 UNIT SUBCUT (06:20)
[2023-02-01] MEDS: Omeprazole 20 MG CAPSULE.DR PO (06:20)
[2023-02-01 07:18] VITALS: BP 162/74; PULSE 68; RESP 20; TEMP 36.8; O2SAT 98
[2023-02-01 07:42] LABS: Glucose, Whole Blood 96 mg/dL (60-115)
[2023-02-01 08:15] LABS: Anion Gap 14 (12-20); Blood Urea Nitrogen 61 mg/dL (9-16); Calcium 8.6 mg/dL (8.4-10.2); Carbon Dioxide 18 mmol/L (22-29); Chloride 110 mmol/L (96-108); Creatinine Clr Calc Pharmacy 14.4; Estimated Glomerular Filt Rate 10; Glucose Fasting 94 mg/dL (60-99); Potassium 4.3 mmol/L (3.3-5.1); Sodium 138 mmol/L (135-145)
[2023-02-01] MEDS: Isosorbide Mononitrate 60 MG TAB.ER.24H PO (09:35)
[2023-02-01] MEDS: 0.9 % Sodium Chloride Flush 3 ML SYRINGE IVFLUSH (09:36)
[2023-02-01] MEDS: NIFEdipine ER 30 MG TAB.ER.24 90 MG PO (09:36)
[2023-02-01] MEDS: hydrALAZINE HCl 50 MG TABLET 100 MG PO (09:36)
[2023-02-01] MEDS: carvediloL 25 MG TABLET PO (09:36)
[2023-02-01] MEDS: Aspirin 81 MG TAB.CHEW PO (09:36)
[2023-02-01] MEDS: Furosemide 40 MG TABLET PO (09:36)
[2023-02-01 11:27] VITALS: BP 172/74; PULSE 72; RESP 18; TEMP 37.1; O2SAT 94
[2023-02-01 11:53] LABS: Glucose, Whole Blood 170 mg/dL (60-115)
--- NOTE | 2023-02-01 12:01 | PM.PNNEP ---
Subjective Subjective Date of Service: 02/01/23 Interval history: seen and examined d/w medical attending denies SOB sitting out of bed Physical Exam Vital Signs: Vital Signs: Last Vital Signs Temp 98.8 F 02/01/23 11:27 Pulse 72 02/01/23 11:27 Resp 18 02/01/23 11:27 BP 172/74 H 02/01/23 11:27 Pulse Ox 94 02/01/23 11:27 O2 Del Method Room Air 02/01/23 11:27 O2 Flow Rate 2 02/01/23 07:18 BMI result Body Mass Index 35.0 Const: General: alert and awake HEENT: Head: Yes normocephalic and Yes atraumatic Neck: Neck: Yes supple Resp: Auscultation: diminished lung sounds Cardio: Heart sounds: S1 normal heart sound present and S2 normal heart sound present GI: Palpation (GI): Soft to palpation and nontender Extrem: General: Yes edema Objective Data Labs 01/27/23 07:45 02/01/23 06:57 Labs: Laboratory Results - last 24 hr 01/31/23 01/31/23 02/01/23 16:00 20:44 00:07 Hold Purple Top Sodium Potassium Chloride Carbon Dioxide Anion Gap BUN Creatinine Estim Creat Clear Calc Estimated GFR POC Glucose 148 H 210 H Fasting Glucose Lactic Acid 0.6 Calcium 02/01/23 02/01/23 02/01/23 06:57 07:21 11:29 Hold Purple Top SEE NOTE Sodium 138 Potassium 4.3 Chloride 110 H Carbon Dioxide 18 L Anion Gap 14 BUN 61 H Creatinine 5.64 H* Estim Creat Clear Calc 14.4 Estimated GFR 10 POC Glucose 96 170 H Fasting Glucose 94 Lactic Acid Calcium 8.6 Microbiology Microbiology Results: Microbiology 01/21/23 08:03 Blood - Venous Blood Culture - Final No growth after 5 days. 01/21/23 07:55 Blood - Venous Blood Culture - Final No growth after 5 days. 01/21/23 Unknown Urine clean catch - Urine lawrence top Urine Culture - Final No growth. Procedures Date of Service Date of Service: 02/01/23 Assessment & Plan Assessment and plan (1) KEYA (acute kidney injury): Status: Inactive (2) (HFpEF) heart failure with preserved ejection fraction: Status: Acute (3) Renal artery stenosis: Status: Acute (4) CKD (chronic kidney disease) stage 3, GFR 30-59 ml/min: Status: Acute Plan Scr up there is no indication for emergent dialysis I would have him follow up with his primary assembler [employer] if kidney function worse next week will go ahead with dialysis tunnelled catheter and resume dialysis multifactorial KEYA: -CRS -acute tubular injury -acute hypertensive nephrosclerosis required HD but now non oliguric and kidney function stable known moderate CKD due to DM/HTN/vascular disease baseline Scr ~ 2 mg/dl proteinuria 1.8 g previous US showed ? 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 Progress Note: Quality Stroke Does the patient have a stroke diagnosis?: No
[2023-02-01] MEDS: Insulin Lispro 100 UNIT/ML 3 ML VIAL SUBCUT (12:09)
--- NOTE | 2023-02-01 12:33 | P.DS_ITS ---
DS: Providers Provider Date of Service: 02/01/23 Date of admission: 01/21/23 12:36 Primary care physician: Unknown Physician Consults: 01/21/23 10:03 Consult to General Surgery Stat Consulting Provider: [facility] [place] [place] General Surgeons Reason for consultation: RUQ pain Has provider been notified: Yes Consult to Nephrology Stat Consulting Provider: [facility] Reason for consultation: KEYA on CKD Has provider been notified: Yes 01/21/23 12:08 Consult to Nephrology Routine Consulting Provider: [facility] Reason for consultation: KEYA, HyperK 01/21/23 12:09 Consult to General Surgery Routine Consulting Provider: [facility] [place] [place] General Surgeons Reason for consultation: acalculous antoina 01/22/23 14:45 Consult to Vascular Surgery Routine Consulting Provider: [facility] [place] [place] Vascular Services Reason for consultation: renal artery stenosis Has provider been notified: Yes 01/23/23 08:42 Addiction Medicine Routine Consulting Provider: [facility] Reason for consultation: cocine use Has provider been notified: No 01/24/23 15:07 Consult to Critical Care Routine Consulting Provider: Rolando rAndt Reason for consultation: level of care Has provider been notified: No DS: Diagnosis Discharge Diagnosis (1) KEYA (acute kidney injury): Status: Inactive (2) (HFpEF) heart failure with preserved ejection fraction: Status: Acute (3) Renal artery stenosis: Status: Acute (4) CKD (chronic kidney disease) stage 3, GFR 30-59 ml/min: Status: Acute DS: Summary Hospital Course Hospital Course: Chief Complaint: blurred vision and RUQ abdominal pain This is a 67 year old male with a PMH of DM type 2, s/p L BKA and R TMA, Stabe 3b CKD, HTN, HLD, HFpEF, Renal artery stenosis, LIVE, HLD and PAD who presented to [facility] [place] [place] ED on 01/21/23 with complaints of RUQ abdominal pain and blurry vision. The patient is primarily Bhut[place] speaking and hence, brush polisher services are used. The patient reports that his abdominal pain is in the RUQ and began suddenly this morning and woke him up from sleep. Despite the use of an brush polisher, the patient remains a vague historian. He denies any such prior pain. Denies relation to food. Reports sharp and constant in nature. Denies any nausea/vomiting/diarrhea. Denies any fevers or chills. In regards to his blurry vision, states he noticed it after he work up. Last night, he was in his usual state of health. He reports that his blurry vision is significantly improved and nearly resolved. He denies any associated focal weakness. In the ED, the patient was initially hypotensive. He was treated with IVF and IV albumin with improvement in his BP into the 100s systolic (blurry vision improved as his BP improved). Work up revealed KEYA on CDK3 with SCr nearly 5 and K nearly 6. He has been given Lokelma and his case has been d/w Nephrology. For his RUQ pain, imaging studies show acalculous antonia for which general surgery has been consulted. He has been given empiric IV antibiotics. Of note, the patient had recent adjustment to his antihypertensive regime -- his Toprol was changed to Coreg and hadd metolozone added to his regim Hospital course: Patient presented with blurred vision and RUQ pain and was noted to be hypotensive and worsening renal failure and high potassium. Work up reveal acute acalculous cholecytitis, acute on chronic kidney failure attributed to agresvie lowering of Blood pressure with medication adjustment. Hospital course by problems 1. KEYA on CKD 3b SCr around 2-2.5; now presented with SCr of 4.94 with associated hyperK of 5.9. Treated with IVF and given lokelema for Hypokalemia and eventually required dialysis via a temporary catheter and was dialysed only twice over a week ago. Creatinine has continued trending up yet has good urine output and as such no plan for further dialysis in the near future. Temporary right IJ catheter has be en removed. He will follow up with Nephrology on outpatient basis with repeat labs work. Creatine has been stable around 5.5 2. Blurred visions / hypotension--likely cause by adjustement in BP meds with minoxidil, hydralzine, norvasc, losartan. Hypotension resolved and retarted on meds with minoxidil stopped, losartan stopped, nifedipine replaced Norvasc. 3. RUQ due to acalculous cholecystitis. Treated empirically with Zosyn, and now on Augmentin. Seen by Surgery and underwent cholecystotomy tube that is to remain in place for 4 to 6 weeks 4. Hypoglyemia, Treated with D50, likely from diabetes meds. Previously on Tresiba, januvia, Glipizide.. All these meds are stopped. Hemoglboine A1C is 5.7, Blood sugars have been normal throughout.. Fasting sugar today is 94.. I advise that he continues checking sugars and if rising to inform pcpc 5. HFpEF, chronic--to continue Lasix 6. Renal artery stenosis was to have surgery with vascular as an outpatient -- will need follow up for this 7. Anemia chronic, h/h at about baseline monitor Time Attestation Discharge coordination time: Greater than 30 minutes Quality: Safe Use of Opioids Does Pt have an Active Cancer Diagnosis on the Problem List?: No Quality: Stroke Does the patient have a stroke diagnosis?: No Physical Exam Vital Signs: Vital Signs: Last Vital Signs Temp 98.8 F 02/01/23 11:27 Pulse 72 02/01/23 11:27 Resp 18 02/01/23 11:27 BP 172/74 H 02/01/23 11:27 Pulse Ox 94 02/01/23 11:27 O2 Del Method Room Air 02/01/23 11:27 O2 Flow Rate 2 02/01/23 07:18 BMI result Body Mass Index 35.0 DS: Data Data Completed and Pending Labs on day of discharge: Laboratory Results - last 24 hr 01/31/23 01/31/23 02/01/23 16:00 20:44 00:07 Hold Purple Top Sodium Potassium Chloride Carbon Dioxide Anion Gap BUN Creatinine Estim Creat Clear Calc Estimated GFR POC Glucose 148 H 210 H Fasting Glucose Lactic Acid 0.6 Calcium 02/01/23 02/01/23 02/01/23 06:57 07:21 11:29 Hold Purple Top SEE NOTE Sodium 138 Potassium 4.3 Chloride 110 H Carbon Dioxide 18 L Anion Gap 14 BUN 61 H Creatinine 5.64 H* Estim Creat Clear Calc 14.4 Estimated GFR 10 POC Glucose 96 170 H Fasting Glucose 94 Lactic Acid Calcium 8.6 Discharge Plan Discharge Anticipated Discharge Date/Time: 02/01/23 12:22 Patient Disposition: Home Health Service Discharge Diagnosis: Acute kidney injury, acalculous cholecystitis Referrals: Bashir Briggs MD [Physician] - 1 Week Mario Modi MD [Physician] - 1 Week Physician,Unknown J [Primary Care Provider] - 1 Week Discharge Medications: New nifedipine 30 mg Tablet Extended Release 24hr 90 mg PO DAILY Qty: 30 1RF Protocol: Hold for SBP< HOLD for SBP < : 90 Continued furosemide 40 mg tablet 40 mg PO BID atorvastatin 80 mg tablet 80 mg PO BEDTIME isosorbide mononitrate 60 mg tablet extended release 24 hr 60 mg PO QAM tamsulosin 0.4 mg capsule 0.4 mg PO QPM docusate sodium 100 mg capsule 100 mg PO BEDTIME gabapentin 300 mg capsule 300 mg PO QAM aspirin 81 mg tablet,chewable 1 tab PO QAM hydralazine 50 mg tablet 100 mg PO TID albuterol sulfate [Ventolin HFA] 90 mcg/actuation HFA aerosol inhaler 2 puff INHALATION Q4H PRN (Reason: Wheezing) fluticasone propionate 50 mcg/actuation spray,suspension 2 spray intranasal QAM PRN (Reason: Congestion) ezetimibe 10 mg tablet 10 mg PO QAM (DME) FreeStyle Daniel 2 Sensor Kit MISCELLANEOUS Q2W (DME) FreeStyle Daniel 2 [place] Misc MISCELLANEOUS QAM carvedilol 25 mg Tablet 25 mg PO BID Qty: 60 0RF Protocol: Hold for SBP/HR < HOLD for SBP < : 90 HOLD for HR < : 60 cholecalciferol (vitamin D3) 1,250 mcg (50,000 unit) capsule 50,000 unit PO BEVERLY sertraline 50 mg tablet 50 mg PO DAILY Discontinued losartan 50 mg tablet 100 mg PO QAM glipizide 10 mg tablet 10 mg PO BID amlodipine 10 mg tablet 10 mg PO QPM Januvia 100 mg tablet 100 mg PO QAM insulin degludec [Tresiba FlexTouch U-100] 100 unit/mL (3 mL) insulin pen 25 unit subcut DAILY minoxidil 2.5 mg Tablet 2.5 mg PO BID Qty: 60 0RF nabumetone 500 mg tablet 500 mg PO BID Discharge Orders: Discharge Order (Routine); Ordered 02/01/23 Ordered By: Dale Bocanegra Diet: Diabetic diet Activity on Discharge: As tolerated Stand Alone Forms: Patient Portal Discharge page Other Ambulatory Orders: Basic Metabolic Panel (Routine) Timeframe: 1 Week Facility: [facility] - Location: Laboratory Ordered By: Dale Bocanegra Care Plan Goals: full recovery from kidney failure and to avoid dialysis Health Concerns: Acute kidney failure chronic kidney failure Hypotension that has resolved Acalculous cholecystitis Heart failure Plan of Treatment: Take all your medication as prescribed, please note that Norvasc is stopped and replaced with Nifedipine Losartan is stopped Note that your diabetes medication have been stopped due to your blood sugars been normal withot any medications in the hospital, however continue checking your sugars at least in the morning and if numbers going up inform your doctor about it. You will need to follow up with Dr. Modi Kidney doctor and have more lab work done next week Assessment: As above
--- NOTE | 2023-02-01 12:52 | P.F2F_ITS ---
Service Date Service Date: 02/01/23 Encounter Date of encounter: 02/01/23 Reasons for Services Signs and symptoms assessed: post hopitaization weakness Homebound: Leaving the home is medically contraindicated at this time without the asist of a device and/or another person due th the listed conditions above and below. Reason homebound: unsteady gait / fall risk and fall risk related to blood pressure changes Homebound supporting statement: homebound due to prolonged hospitalization, weakness, amputated limbs and therefore needs the assistance of another person Certification: Based on the above findings, I certify that this patient is confined to the home and needs intermittent mcfp care, physical therapy and/or speech therapy, or continues to need occupational therapy. The patient is under my care, and I have initiated the establishment of the plan of care. The patient will be followed by a physician who will periodically review the plan of care. Time Spent With Patient Time: Total time managing care of this patient today ____ minutes.
[2023-02-01 12:55] VITALS: BP 186/67
--- NOTE | 2023-02-01 13:24 | PC.NURSE ---
Patient was to be discharged today. Another set of vitals were ordered per MD before discharge. Upon taking vitals patient's blood pressure was 186/67. MD was notified and ordered for hydrazine IV push to be given and to have the patient wait a little longer before leaving so that his blood pressure could be rechecked. Patients son arrived to bring him home and patient then began to refuse to wait any longer. MD was notified again that patient was refusing to wait to have blood pressure rechecked in a little while before leaving. MD said not to give the hydrazine if he wasn't going to wait. Patient was educated on the importance of staying and bringing down his pressure but he was adamant on leaving. Patients son also tried to convince him to stay but patient continued to refuse. Patient then signed AMA paperwork. MD was notified again on the continuation of the situation. All IV'S and monitors were removed and all belongings were returned.
--- NOTE | 2023-02-01 13:37 | MHC.CM.PN ---
Pt left AMA.
== END 2023-02-01 13:24 | disposition left against medical advice (07) | DRG 682 ==
LOC: HO.ED 09:52 → HO.EDOVER 12:37 → HO.IMC 14:25
PROVIDERS: Internal Medicine; Internal Medicine Nephrology; Physician Assistant; Physician Assistant Surgical; Radiology Vascular & Interventional Radiology; Admitting Provider Family Medicine; Emergency Provider Emergency Medicine; PCP General Practice; Visit Provider Internal Medicine
PROC: 0F9430Z Drainage of Gallbladder with Drainage Device, Percutaneous Approach (ICD-10-PCS; principal; 2023-01-24 14:30)
DX: N17.9 Acute kidney failure, unspecified (principal); I50.33 Acute on chronic diastolic (congestive) heart failure; I13.0 Hypertensive heart and chronic kidney disease with heart failure and stage 1 through stage 4 chronic kidney disease, or unspecified chronic kidney disease; K81.0 Acute cholecystitis; N18.4 Chronic kidney disease, stage 4 (severe); E11.649 Type 2 diabetes mellitus with hypoglycemia without coma; E11.51 Type 2 diabetes mellitus with diabetic peripheral angiopathy without gangrene; D63.1 Anemia in chronic kidney disease; I70.1 Atherosclerosis of renal artery; I95.9 Hypotension, unspecified; E87.5 Hyperkalemia; E11.22 Type 2 diabetes mellitus with diabetic chronic kidney disease; Z89.512 Acquired absence of left leg below knee; Z20.822 Contact with and (suspected) exposure to COVID-19; Z79.82 Long term (current) use of aspirin; Z79.899 Other long term (current) drug therapy
CPT/HCPCS: 36415; 36556; 70450; 71045; 71250; 74176; 75989; 76705; 76937; 78227; 80048; 80076; 80307; 81001; 82570; 82728; 82803; 82947; 83036; 83540; 83605; 83690; 83735; 83880; 84145; 84300; 84484; 85014; 85018; 85025; 85027; 85610; 86704; 86706; 86850; 86900; 86901; 87040; 87086; 87340; 87635; 90999; 92950; 93005; 93306; 94640; 99285; A9537; A9541; C1752; C1758; C1769; J0360; J0613; J0696; J1200; J1644; J1836; J1940; J2405; J2543; J2805; J3010; P9047; Q9957

== ENCOUNTER 2023-01-21 12:36 | Outpatient (BNV) | payer OTHER, SELFPAY | END 2023-01-22 10:10 | PROVIDERS: Admitting Provider Family Medicine; Emergency Provider Emergency Medicine; PCP General Practice; Visit Provider Radiology Vascular & Interventional Radiology | DX: N18.6 End stage renal disease (principal) | CPT/HCPCS: 36556; 76937; 77001 ==

== ENCOUNTER 2023-01-21 12:36 | Outpatient (BNV) | payer OTHER, SELFPAY | END 2023-01-28 07:00 | PROVIDERS: Admitting Provider Family Medicine; Emergency Provider Emergency Medicine; Visit Provider Internal Medicine Cardiovascular Disease | DX: I34.0 Nonrheumatic mitral (valve) insufficiency (principal); I50.30 Unspecified diastolic (congestive) heart failure | CPT/HCPCS: 93306 ==

== ENCOUNTER 2023-01-21 12:36 | Outpatient (BNV) | payer OTHER, SELFPAY | END 2023-01-24 15:30 | PROVIDERS: Admitting Provider Family Medicine; Emergency Provider Emergency Medicine; Visit Provider Radiology Vascular & Interventional Radiology | DX: K81.9 Cholecystitis, unspecified (principal) | CPT/HCPCS: 47490 ==

== ENCOUNTER → 2023-01-21 12:36 | Outpatient (BNV) | payer OTHER, SELFPAY | PROVIDERS: Admitting Provider Family Medicine; Emergency Provider Emergency Medicine; Visit Provider Registered Nurse Community Health | DX: I50.9 Heart failure, unspecified (principal); N17.9 Acute kidney failure, unspecified; K81.9 Cholecystitis, unspecified; N18.9 Chronic kidney disease, unspecified | CPT/HCPCS: 99221 ==

== ENCOUNTER → 2023-01-21 12:36 | Outpatient (BNV) | payer OTHER, SELFPAY | PROVIDERS: Admitting Provider Family Medicine; Emergency Provider Emergency Medicine; Visit Provider Physician Assistant Surgical | DX: R10.11 Right upper quadrant pain (principal) | CPT/HCPCS: 36556; 76937 ==

== ENCOUNTER → 2023-01-21 12:36 | Outpatient (BNV) | payer OTHER, SELFPAY | PROVIDERS: Admitting Provider Family Medicine; Emergency Provider Emergency Medicine; Visit Provider Surgery Vascular Surgery | DX: I70.1 Atherosclerosis of renal artery (principal); N17.9 Acute kidney failure, unspecified; E11.22 Type 2 diabetes mellitus with diabetic chronic kidney disease; N18.30 Chronic kidney disease, stage 3 unspecified | CPT/HCPCS: 99222; 99232 ==

== ENCOUNTER → 2023-01-21 12:36 | Outpatient (BNV) | payer OTHER, SELFPAY | PROVIDERS: Admitting Provider Family Medicine; Emergency Provider Emergency Medicine; Visit Provider Family Medicine | DX: N17.9 Acute kidney failure, unspecified (principal); I50.30 Unspecified diastolic (congestive) heart failure; I70.1 Atherosclerosis of renal artery; N18.30 Chronic kidney disease, stage 3 unspecified | CPT/HCPCS: 99223; 99232; 99239; 99499; G0180 ==

== ENCOUNTER → 2023-01-21 12:36 | Outpatient (BNV) | payer OTHER, SELFPAY | PROVIDERS: Admitting Provider Family Medicine; Emergency Provider Emergency Medicine; Visit Provider Surgery | DX: K81.9 Cholecystitis, unspecified (principal) | CPT/HCPCS: 99222; 99232 ==

== ENCOUNTER → 2023-02-06 10:00 | Outpatient (BNV) | payer OTHER, SELFPAY | PROVIDERS: Admitting Provider Internal Medicine; Emergency Provider Emergency Medicine; PCP General Practice; Visit Provider Radiology Vascular & Interventional Radiology | DX: N18.6 End stage renal disease (principal) | CPT/HCPCS: 36558 ==

== ENCOUNTER 2023-02-06 16:09 | Inpatient (IN) | payer OTHER, SELFPAY ==
--- NOTE | ~2023-02-06 | XR_ITS ---
EXAMINATION: XR CHEST CLINICAL INFORMATION: Shortness of breath COMPARISON: Chest radiograph from 01/31/2023 TECHNIQUE: Frontal view of the chest was obtained. FINDINGS: Interval placement of right-sided tunneled dialysis catheter terminating in the right atrium. Bilateral low lung volumes. Accentuation of pulmonary vasculature. Enlarged cardiac mediastinal silhouette. No pneumothorax. Trachea is midline. No large pleural effusion. Osseous structures are intact. Soft tissues are unremarkable. XR/XR chest 1V IMPRESSION: 1. Interval placement of right-sided tunneled dialysis catheter terminating in the right atrium. 2. Bilateral low lung volumes. 3. Accentuation of pulmonary vasculature. 4. Enlarged cardiac mediastinal silhouette.
--- NOTE | ~2023-02-06 | US_ITS ---
EXAMINATION: US VENOUS AND ARTERIAL WITH DOPPLER UPPER EXTREMITY, LEFT CLINICAL INFORMATION: Arterial and venous mapping for AVF creation. COMPARISON: None available. TECHNIQUE: Ultrasound of the upper extremity is performed using compression sonography and color and pulse Doppler flow with assessment of augmentation of flow. The cephalic and basilic veins were examined. Spectral analysis with color-flow imaging is performed. In addition, duplex was used to examine the radial artery, ulnar artery and brachial artery. FINDINGS: VENOUS: Basilic vein: The basilic vein is patent throughout its course. Diameter of the vein as well as depth below the skin, in parentheses, are reported below with measurements in millimeters: Proximal upper arm: 5 (11) Mid upper arm: 4 (10) Distal upper arm: 3 (7) Cephalic vein: The cephalic vein is patent throughout its course: Diameter of the vein as well as distance below the skin, in parentheses, are reported below with measurements in millimeters: At shoulder: 3 (11) Proximal upper arm: 3 (4) Mid upper arm: 3 (4) Distal upper arm: 3 (3) AC fossa: 4 (5) Proximal forearm: 1.5 (6) Mid forearm: 2 (4) At wrist: 2 (4) Brachial artery: The brachial artery appears unremarkable with normal waveform. Velocity is 83 cm/s. The size in the distal upper arm is 5 mm with a depth below the skin of 16 mm. Radial artery: The wall is calcified. Waveform is normal with a velocity of 167 cm/s. Diameter at the wrist is 2 mm with a depth of 10 mm. Ulnar artery: The ulnar artery has calcified wall. Waveform is normal with a velocity of 140 cm/s. Diameter at the wrist is 2 mm with a depth of 13 mm. US/US venous duplex UE LT IMPRESSION: Left upper extremity venous and arterial mapping predialysis access fistula creation as described above.
--- NOTE | ~2023-02-06 | IR_ITS ---
CLINICAL HISTORY: End-stage renal disease. The patient presents to interventional radiology for placement of a tunneled central venous catheter for hemodialysis. PROCEDURES: 1. Real-time ultrasound-guided access into the right internal jugular vein after documentation of selected vessel patency, and permanent imaging storing in the patient record. 2. Placement of a 14.5 fr 27 cm tunneled, dual-lumen hemodialysis catheter. Clinician: Yuri Sterling PA-C MEDICATIONS: -Fentanyl 50 mcg, Lidocaine 1% 10 mL SQ. -Antibiotics: None -For additional details, please see nursing flowsheet. COMPLICATIONS: None. ESTIMATED BLOOD LOSS: <5 ml SPECIMENS: None FLUOROSCOPY TIME: 1.3 min PROCEDURE NOTE: The procedure, risks, benefits, and alternatives were carefully explained to patient, and written informed consent was obtained. The patient was placed supine on the fluoroscopy table. A timeout was performed. The right neck and chest was prepped and draped in usual sterile fashion. Local anesthesia was administered to the access site with lidocaine. Under ultrasound guidance, the right internal jugular vein was accessed with a 5 Fr micropuncture set. A 0.035 in wire was advanced to the IVC to maintain access during the tunneling process. Next, subcutaneous lidocaine was administered to the chest. Using blunt dissection, a subcutaneous tunnel was created that connects from the upper chest to the venotomy site. The dialysis catheter was pulled through the tunnel. The tract in the vein was dilated and a peel-away sheath was advanced over the wire. The catheter was advanced through the sheath, which was subsequently peeled away. The catheter was tested, flushed, and sutured to the skin with its tip in the high right atrium. A permanent fluoroscopic image of the chest was saved to PACS. The catheter ports were packed with heparin per routine protocol. The patient was stable after the procedure and was transferred to the post anesthesia care unit. This procedure was performed with a dedicated nurse and continuous monitoring of vital signs. FINDINGS: 1. Patent right internal jugular vein. 2. Placement of a tunneled, dual-lumen hemodialysis catheter as above. 3. Catheter flushes and aspirates very well with a 10 mL syringe. No pneumothorax. IR/IR cvc insert central tunnel IMPRESSION: Placement of a tunneled hemodialysis catheter in the right internal jugular vein. PLAN: -The catheter may be used immediately. This procedure was performed by Yuri Sterling PA-C, and directly supervised by Dr. Graham.
[2023-02-06 16:41] LABS: Glucose, Whole Blood 85 mg/dL (60-115)
--- NOTE | 2023-02-06 16:41 | PC.NURSE ---
Patient arrived via ems. Ems reports patients family came to visit and he was altered. Per ems bs was 67 and ems gave 15 grams of gluagon, repeat bs was 60 so 24 grams of glucose given po. Per ems patient then dropped to 60. Upon arrival BS 85. Patient alert and responsive. Patient with drain in right side that is draining large amount of yellow fluid. Patient states he might have had a bag for it and it fell off. 20g iv started in right ac. Right side drain placed into bag for drainage.
[2023-02-06 16:44] VITALS: BP 138/50; PULSE 69; O2SAT 96; BMI 25.8
[2023-02-06 17:11] VITALS: PULSE 67; RESP 18; TEMP 36.6; O2SAT 97
--- NOTE | 2023-02-06 17:11 | ECG_ITS ---
Test Reason : AMS Blood Pressure : / mmHG Vent. Rate : 067 BPM Atrial Rate : 067 BPM P-R Int : 296 ms QRS Dur : 096 ms QT Int : 386 ms P-R-T Axes : 057 024 020 degrees QTc Int : 407 ms Sinus rhythm with 1st degree A-V block Otherwise normal ECG When compared with ECG of 30-JAN-2023 19:39, [place] interval has increased Nonspecific T wave abnormality no longer evident in Lateral leads Referred By: Janine Sky Electronically Signed By:SWEETIE CASTRO MD
--- NOTE | 2023-02-06 17:11 | PC.NURSE ---
repeat bs 90
--- NOTE | 2023-02-06 17:30 | ED.GENADULT ---
HPI - General Adult General Chief complaint: Altered Mental Status Stated complaint: AMS Time Seen by Provider: 02/06/23 16:58 Source: patient Mode of arrival: ambulatory Limitations: no limitations History of Present Illness HPI narrative: Patient comes to the emergency room via EMS. EMS reports that the family stated that the patient seems more altered than usual. And also, they noted that the patient's IR cholecystostomy tube was disconnected from the collection bag and has been leaking. EMS reports that when they arrived to the patient's residence he, the glucose was 60. They gave him D10, glucose improved to 90. She is awake, alert, seems a bit confused. Patient is poor historian. Patient states that he has no abdominal pain. Related Data Home Medications Medication Instructions Recorded Confirmed sertraline 50 mg tablet 50 mg PO DAILY 04/27/21 01/21/23 albuterol sulfate 90 mcg/actuation 2 puff inhalation Q4H PRN Wheezing 01/13/23 01/21/23 aerosol inhaler (Ventolin HFA) aspirin 81 mg chewable tablet 1 tab PO QAM 01/13/23 01/21/23 atorvastatin 80 mg tablet 80 mg PO BEDTIME 01/13/23 01/21/23 docusate sodium 100 mg capsule 100 mg PO BEDTIME 01/13/23 01/21/23 ezetimibe 10 mg tablet 10 mg PO QAM 01/13/23 01/21/23 flash glucose scanning reader 01/13/23 01/21/23 ([employer] Daniel 2 Stone) flash glucose sensor (FreeStyle 01/13/23 01/21/23 Daniel 2 Sensor kit) fluticasone propionate 50 2 spray intranasal QAM PRN 01/13/23 01/21/23 mcg/actuation nasal Congestion spray,suspension furosemide 40 mg tablet 40 mg PO BID 01/13/23 01/21/23 gabapentin 300 mg capsule 300 mg PO QAM 01/13/23 01/21/23 hydralazine 50 mg tablet 100 mg PO TID 01/13/23 01/21/23 isosorbide mononitrate 60 mg 60 mg PO QAM 01/13/23 01/21/23 tablet,extended release 24 hr tamsulosin 0.4 mg capsule 0.4 mg PO QPM 01/13/23 01/21/23 cholecalciferol (vitamin D3) 1,250 50,000 unit PO BEVERLY 01/21/23 01/21/23 mcg (50,000 unit) capsule Previous Rx's Medication Instructions Recorded carvedilol 25 mg tablet 25 mg PO BID #60 tabs 01/15/23 nifedipine 30 mg tablet,extended 90 mg PO DAILY #30 tabs 02/01/23 release 24 hr Allergies Allergy/AdvReac Type Severity Reaction Status Date / Time metformin AdvReac Unknown Verified 01/24/23 14:42 Review of Systems Review of Systems: Constitutional : No Weight loss, No Fever, No Chills, No Night Sweats, No Fatigue, No Malaise ENT/Mouth : No Hearing loss, No Ear Pain, No Nasal Congestion, No Sinus Pain, No Hoarseness, No sore throat, No Rhinorrhea, No Swallowing Difficulty Eyes: No Eye Pain, No Swelling, No Redness, No Foreign Body, No Discharge, No Vision Changes Cardiovascular : No Chest Pain, No SOB, No Dyspnea on Exertion, No Orthopnea, No Edema, No Palpitations Respiratory : No Cough, No Sputum, No Wheezing, No Smoke Exposure, No Dyspnea Gastrointestinal : No Nausea, No Vomiting, No Diarrhea, No Constipation, No abdominal Pain, IR cholecystostomy tube leaking bile, no bag present Genitourinary : no irregular bleeding, No Dysuria, No Urinary Frequency, No Hematuria, No Urinary Incontinence, No Urgency, No Flank Pain, No Urinary Flow Changes, No Hesitancy Musculoskeletal : No joint pain, No Myalgias, No Joint Swelling Skin : No Skin Lesions, No rash Neuro : No Weakness, No Numbness, No Paresthesias, No Loss of Consciousness, No Dizziness, No Headache Psych : No Anxiety/Panic, No Depression, No SI/HI/AH/VH, No Social Issues, Heme/Lymph: No Bruising, No Bleeding,No Lymphadenopathy Endocrine : No Polyuria, No Polydipsia, low blood sugar [facility] Past Medical History Medical History CKD (chronic kidney disease) stage 3, GFR 30-59 ml/min Renal artery stenosis Anemia Uncontrolled hypertension Erectile dysfunction (HFpEF) heart failure with preserved ejection fraction Osteomyelitis CKD stage 3 due to type 2 diabetes mellitus LIVE (iron deficiency anemia) Hyperlipidemia associated with type 2 diabetes mellitus Type 2 diabetes mellitus Kidney disease High cholesterol HTN (hypertension) Diabetes PAD (peripheral artery disease) Surgical History Status post transmetatarsal amputation of left foot Hx of amputation History of amputation of right forefoot H/O shoulder surgery Family History Family History Other No family history of coronary artery disease Social History Social History Household Members: None Housing: Apartment Do you presently have visiting nurse or other home services: Yes (GLOBAL COORDINATOR ONLY) Alcohol intake: current Alcohol intake frequency: a few times a month Alcohol type: beer Comment: previously medicated with IV morphine Patient Tobacco Use Status: Never used Tobacco Tobacco use type: Cigarette Substance Use Type: Crack/Cocaine Advance Directives: Yes Advance Directives on File: Yes Advance Directives Date on File: 02/02/22 service: No Current occupational status: retired Physical Exam ED Vital Signs: Vital Signs - 24 hr 02/06/23 17:11 02/06/23 19:20 Temperature 97.8 F Pulse Rate 67 67 Respiratory Rate 18 18 Pulse Oximetry 97 Oxygen Delivery Method Room Air BMI result Body Mass Index 25.8 Const Other: Appearance: Alert. Oriented X2. No acute distress. Seems confused Eyes: Pupils equal, round and reactive to light. ENT: Pharynx normal. Neck: Normal inspection. Neck supple. No lymph nodes noted. No crepitus CVS: Normal heart rate and rhythm. Pulses normal. Normal S1 and S2 Respiratory: No respiratory distress. Breath sounds normal. No Wheezing. No rales Abdomen: Soft and nontender. Patient has an IR cholecystostomy tube in the right upper quadrant, draining bile, there is no bag attached to it. Skin: Skin warm and dry. Normal skin color. Normal skin turgor. Extremities: No lower extremity edema. No Lacerations. No Rash Neuro: Oriented X 3. No motor deficit. No sensory deficit. Moving all extremities. No slurred speech. CN 2 through 12 grossly intact Psych: calm, cooperative, normal affect Course Course Course Narrative: -IR cholecystostomy bag was replaced. No longer leaking. Medications Administered Generic Name Dose Route Start Last Admin Trade Name Freq PRN Reason Stop Dose Admin Calcium Gluconate 2 gm in 100 mls @ 50 mls/hr 02/06/23 19:03 02/06/23 19:30 Calcium Gluconate IV 02/06/23 21:02 50 mls/hr ONCE ONE Administration Dextrose 1,000 mls @ 125 mls/hr 02/06/23 19:15 02/06/23 19:53 D5w IVCONT Not Given .Q8H ANNABELLA Discontinued Medications Generic Name Dose Route Start Last Admin Trade Name Janey PRN Reason Stop Dose Admin Albuterol Sulfate 10 mg 02/06/23 19:04 02/06/23 19:17 Albuterol Sulfate (0.083%) 2.5 Mg/3 Ml Vial.Neb INHALE 02/06/23 19:05 10 mg ONCE ONE Administration Sodium Bicarbonate 50 meq 02/06/23 19:05 02/06/23 19:27 Sodium Bicarbonate 8.4% 50 Meq/50 Ml Syringe IVPUSH 02/06/23 19:06 50 meq ONCE ONE Administration Medical Decision Making Medical Decision Making MDM Narrative: -my interpretation of labs: Patient's hematology shows anemia, hemoglobin of 6.2, hematocrit 20.2. Patient's baseline is between 7.3 and 8.3. Patient's potassium elevated, creatinine elevated above baseline -patient denies seeing any blood in the stool or dark stool. -given that the patient is fatigued, symptomatic, we will transfuse him 1 unit. Patient is at risk of TACO -the patient's potassium level, patient was given nebulization treatments with albuterol, calcium gluconate, bicarb. We did not give insulin at this time, even with the 50s, patient's insulin keeps dropping as patient came in hyperglycemia -patient is hypoglycemic since he arrived, intermittently, patient's glucose goes up and down, at this time, we are refraining of given the patient D5 IV, patient is getting blood transfusion, patient is recovering from CHF exacerbation for which she was discharged from the hospital a few days ago -patient's creatinine is significantly more elevated from baseline. At this time, patient is not on dialysis. During his admission a few days ago, they were doing intermittent dialysis, right IJ catheter was removed prior to discharge. -I discussed the patient with Dr. Loyd, patient being admitted Differential Diagnosis Differential Diagnoses: The differential diagnosis associated with the presentation includes (Anemia, GI bleed, hypoglycemia, renal failure) Admission/Observation Consideration of admission/observation: Escalation of care including admission/observation considered Consult Healthcare Provider Management of the patient was discussed with: Rail Equipment Operator Lab Data MDM Lab Attestation statement: I reviewed the patient's lab results. 02/06/23 17:50 02/06/23 17:50 Labs: Lab Results 02/06/23 02/06/23 02/06/23 Range/Units 16:20 17:09 17:50 WBC 7.4 (4.8-10.8) X10*3/uL RBC 2.07 L (4.60-5.80) X10*6/uL Hgb 6.2 L* D (14.0-18.0) g/dl Hct 20.1 L* (42.0-52.0) % MCV 97.1 (80.0-98.0) fL MCH 30.0 (27.0-33.0) pg MCHC 30.8 L (31.0-36.0) g/dl RDW 13.1 (11.0-16.0) % Plt Count 345 D (160-400) X10*3/uL MPV 10.0 (9.4-12.4) fL Immature Gran % (Auto) 0.4 (0.0-0.4) % Neut % (Auto) 73.9 H (45-73) % Lymph % (Auto) 10.8 L (20-40) % [place] % (Auto) 12.8 H (2-11) % Eos % (Auto) 1.7 (0-4) % Baso % (Auto) 0.4 (0-2) % Lymph # (Auto) 0.8 L (1.2-4.9) X10*3/uL [place] # (Auto) 1.0 (0.1-1.2) X10*3/uL Eos # (Auto) 0.1 (0.0-0.4) X10*3/uL Baso # (Auto) 0.0 (0.0-0.2) X10*3/uL Abs Immat Gran (auto) 0.03 (0.00-0.03) X10*3/uL Absolute Neuts (auto) 5.5 (2.0-8.3) x10*3/uL Absolute Nucleated RBC 0.000 (0.0-0.012) X10*3/uL Nucleated RBC % (auto) 0.0 (0.0-0.2) /100WBC Sodium 137 (135-145) mmol/L Potassium 6.0 H* D (3.3-5.1) mmol/L Chloride 113 H (96-108) mmol/L Carbon Dioxide 16 L (22-29) mmol/L Anion Gap 14 (12-20) BUN 90 H (9-16) mg/dL Creatinine 8.28 H* (0.5-1.4) mg/dL Estim Creat Clear Calc 7.8 Estimated GFR 7 POC Glucose 85 90 (60-115) mg/dL Random Glucose 75 (60-115) mg/dL Calcium 8.8 (8.4-10.2) mg/dL Total Bilirubin 0.2 (0.0-1.0) mg/dL Direct Bilirubin < 0.2 (0.0-0.5) mg/dL AST 31 (5-37) U/L ALT 34 (0-40) U/L Alkaline Phosphatase 307 H (39-117) U/L Total Protein 7.8 (6.5-8.0) g/dL Albumin 2.9 L (3.5-5.0) g/dL Ethyl Alcohol < 10 mg/dL 02/06/23 Range/Units 19:11 WBC (4.8-10.8) X10*3/uL RBC (4.60-5.80) X10*6/uL Hgb (14.0-18.0) g/dl Hct (42.0-52.0) % MCV (80.0-98.0) fL MCH (27.0-33.0) pg MCHC (31.0-36.0) g/dl RDW (11.0-16.0) % Plt Count (160-400) X10*3/uL MPV (9.4-12.4) fL Immature Gran % (Auto) (0.0-0.4) % Neut % (Auto) (45-73) % Lymph % (Auto) (20-40) % [place] % (Auto) (2-11) % Eos % (Auto) (0-4) % Baso % (Auto) (0-2) % Lymph # (Auto) (1.2-4.9) X10*3/uL [place] # (Auto) (0.1-1.2) X10*3/uL Eos # (Auto) (0.0-0.4) X10*3/uL Baso # (Auto) (0.0-0.2) X10*3/uL Abs Immat Gran (auto) (0.00-0.03) X10*3/uL Absolute Neuts (auto) (2.0-8.3) x10*3/uL Absolute Nucleated RBC (0.0-0.012) X10*3/uL Nucleated RBC % (auto) (0.0-0.2) /100WBC Sodium (135-145) mmol/L Potassium (3.3-5.1) mmol/L Chloride (96-108) mmol/L Carbon Dioxide (22-29) mmol/L Anion Gap (12-20) BUN (9-16) mg/dL Creatinine (0.5-1.4) mg/dL Estim Creat Clear Calc Estimated GFR POC Glucose 62 (60-115) mg/dL Random Glucose (60-115) mg/dL Calcium (8.4-10.2) mg/dL Total Bilirubin (0.0-1.0) mg/dL Direct Bilirubin (0.0-0.5) mg/dL AST (5-37) U/L ALT (0-40) U/L Alkaline Phosphatase (39-117) U/L Total Protein (6.5-8.0) g/dL Albumin (3.5-5.0) g/dL Ethyl Alcohol mg/dL Independent Interpretation I performed an independent interpretation of an: EKG Interpretation: My interpretation EKG, normal sinus rhythm, heart rate 67, first-degree AV block, no peaked T-waves, QTC 407 Prescription Management I considered prescription management with: Other (CKD) Critical Care Time Critical Care Time Critical Care Time: Yes Total Critical Care Time: 75 Attestation: Please follow-up with your primary care physician tomorrow. If you have any worsening or new symptoms, please return to the emergency room or call [phone] Discharge Plan Discharge Clinical Impression: Acute kidney injury superimposed on CKD, Hypoglycemia, Acute hyperkalemia, Anemia Patient Disposition: Admitted As Inpatient Prescriptions: No Action furosemide 40 mg tablet 40 mg PO BID atorvastatin 80 mg tablet 80 mg PO BEDTIME isosorbide mononitrate 60 mg tablet extended release 24 hr 60 mg PO QAM tamsulosin 0.4 mg capsule 0.4 mg PO QPM docusate sodium 100 mg capsule 100 mg PO BEDTIME gabapentin 300 mg capsule 300 mg PO QAM aspirin 81 mg tablet,chewable 1 tab PO QAM hydralazine 50 mg tablet 100 mg PO TID albuterol sulfate [Ventolin HFA] 90 mcg/actuation HFA aerosol inhaler 2 puff INHALATION Q4H PRN (Reason: Wheezing) fluticasone propionate 50 mcg/actuation spray,suspension 2 spray intranasal QAM PRN (Reason: Congestion) ezetimibe 10 mg tablet 10 mg PO QAM (DME) FreeStyle Daniel 2 Sensor Kit MISCELLANEOUS Q2W (DME) FreeStyle Daniel 2 Stone Misc MISCELLANEOUS QAM carvedilol 25 mg Tablet 25 mg PO BID Qty: 60 0RF Protocol: Hold for SBP/HR < HOLD for SBP < : 90 HOLD for HR < : 60 cholecalciferol (vitamin D3) 1,250 mcg (50,000 unit) capsule 50,000 unit PO BEVERLY nifedipine 30 mg Tablet Extended Release 24hr 90 mg PO DAILY Qty: 30 1RF Protocol: Hold for SBP< HOLD for SBP < : 90 sertraline 50 mg tablet 50 mg PO DAILY
[2023-02-06 17:37] LABS: Glucose, Whole Blood 90 mg/dL (60-115)
[2023-02-06 17:54] LABS: MANUAL DIFF FLAG NO
[2023-02-06 17:56] LABS: Basophils Percent Auto 0.4 % (0-2); Eosinophils Absolute Auto 0.1 X10*3/uL (0.0-0.4); Eosinophils Percent Auto 1.7 % (0-4); Imm Gran Abs Auto 0.03 X10*3/uL (0.00-0.03); Imm Gran Pct Auto 0.4 % (0.0-0.4); Lymphocytes Absolute Auto 0.8 X10*3/uL (1.2-4.9); Lymphocytes Percent Auto 10.8 % (20-40); Mean Corpuscular HGB Conc 30.8 g/dl (31.0-36.0); Mean Corpuscular Volume 97.1 fL (80.0-98.0); Monocytes Percent Auto 12.8 % (2-11); Neutrophils Absolute Auto 5.5 x10*3/uL (2.0-8.3); Neutrophils Percent Auto 73.9 % (45-73); Platelet Count 345 X10*3/uL (160-400); Red Blood Count 2.07 X10*6/uL (4.60-5.80); Red Cell Distribution Width 13.1 % (11.0-16.0); White Blood Count 7.4 X10*3/uL (4.8-10.8)
[2023-02-06 18:11] LABS: Hematocrit 20.1 % (42.0-52.0); Hemoglobin 6.2 g/dl (14.0-18.0)
[2023-02-06 18:30] LABS: Ethanol < 10 mg/dL
[2023-02-06 18:34] LABS: Alanine Aminotransferase 34 U/L (0-40); Albumin Level 2.9 g/dL (3.5-5.0); Alkaline Phosphatase 307 U/L (39-117); Anion Gap 14 (12-20); Aspartate Amino Transferase 31 U/L (5-37); Bilirubin Direct < 0.2 mg/dL (0.0-0.5); Bilirubin Total 0.2 mg/dL (0.0-1.0); Blood Urea Nitrogen 90 mg/dL (9-16); Calcium 8.8 mg/dL (8.4-10.2); Carbon Dioxide 16 mmol/L (22-29); Chloride 113 mmol/L (96-108); Creatinine Clr Calc Pharmacy 7.8; Estimated Glomerular Filt Rate 7; Glucose Random 75 mg/dL (60-115); Sodium 137 mmol/L (135-145); Total Protein 7.8 g/dL (6.5-8.0)
[2023-02-06 19:16] LABS: Glucose, Whole Blood 62 mg/dL (60-115)
[2023-02-06] MEDS: Albuterol Sulfate (0.083%) 2.5 MG/3 ML VIAL.NEB 10 MG INHALE (19:17)
[2023-02-06 19:20] VITALS: PULSE 67; RESP 18; O2SAT 97
[2023-02-06] MEDS: Sodium Bicarbonate 8.4% 50 MEQ/50 ML SYRINGE IVPUSH (19:27)
[2023-02-06] MEDS: Calcium Gluconate/NaCl,Iso-Osm 2 GM/100 ML PLAST..BAG IV (19:30)
--- NOTE | 2023-02-06 19:35 | PC.NURSE ---
Addendum entered by Saranya Lopez 02/06/23 23:33: pt noted to have wet cough, respiratory to give breathing treatment. Original Note: this rn assumed care of pt. pt resting comfortably on stretcher. this rn assisted provider in rectal exam. pt tolerated well. second IV established in left hand.
--- NOTE | 2023-02-06 20:01 | P.HPHOSP_ITS ---
History of Present Illness Date of Service: 02/06/23 Chief Complaint: ams 67 year old male with a PMH of DM type 2, s/p L BKA and R TMA, Stabe 3b CKD, HTN, HLD, HFpEF, Renal artery stenosis, LIVE, HLD and PAD, recently discharged from [facility] 02/01/23 after hospitalization for KEYA on ckd 3b requiring temproary HD, on discharge temp cath removed, creatinine was stable around 5.5 with good urine output, hypotnesion that resolved with med adjustment, DM with hyopglycemia (meds were discontinued), acalculous cholecystitis treated with cholecystotomy (drain still in place, on augmentin), now presenting with AMS. family called EMS as patient was more lethargic than usual, also choelcystotomy tube was leaking. glucose on EMS arrival was 60, patient was awake alert, confused, in ED hgb 6.2, k = 6, bicarb 46, creatiine 8.28, bun 90. Review of Systems 2 Review of Systems: Yes all other systems are reviewed and are negative COUNT INCLUDES [facility] Medical History CKD (chronic kidney disease) stage 3, GFR 30-59 ml/min Renal artery stenosis Anemia Uncontrolled hypertension Erectile dysfunction (HFpEF) heart failure with preserved ejection fraction Osteomyelitis CKD stage 3 due to type 2 diabetes mellitus LIVE (iron deficiency anemia) Hyperlipidemia associated with type 2 diabetes mellitus Type 2 diabetes mellitus Kidney disease High cholesterol HTN (hypertension) Diabetes PAD (peripheral artery disease) Family History Other No family history of coronary artery disease Surgical History Status post transmetatarsal amputation of left foot Hx of amputation History of amputation of right forefoot H/O shoulder surgery Social History Household Members: None Housing: Apartment Do you presently have visiting nurse or other home services: Yes (AUTOMOTIVE GLASS SPECIALIST ONLY) Alcohol intake: current Alcohol intake frequency: a few times a month Alcohol type: beer Comment: previously medicated with IV morphine Patient Tobacco Use Status: Never used Tobacco Tobacco use type: Cigarette Substance Use Type: Crack/Cocaine Advance Directives: Yes Advance Directives on File: Yes Advance Directives Date on File: 02/02/22 service: No Current occupational status: retired Meds Allergies Allergy/AdvReac Type Severity Reaction Status Date / Time metformin AdvReac Unknown Verified 01/24/23 14:42 Active Medications: Current Medications Calcium Gluconate (Calcium Gluconate) 2 gm in 100 mls @ 50 mls/hr IV ONCE ONE Stop: 02/06/23 21:02 Last Admin: 02/06/23 19:30 Dose: 50 mls/hr Sodium Chloride (Ns) 100 mls @ 100 mls/hr IV ONCE ONE Stop: 02/06/23 20:18 Sodium Bicarbonate 150 meq/ (Dextrose) 1,000 mls @ 100 mls/hr IV .Q10H ANNABELLA Home Medications Medication Instructions Recorded Confirmed Last Taken Type sertraline 50 mg tablet 50 mg PO DAILY 04/27/21 02/06/23 01/21/23 History albuterol sulfate 90 mcg/actuation 2 puff inhalation Q4H PRN Wheezing 01/13/23 02/06/23 Unknown History aerosol inhaler (Ventolin HFA) aspirin 81 mg chewable tablet 1 tab PO DAILY 01/13/23 02/06/23 01/21/23 History atorvastatin 80 mg tablet 80 mg PO BEDTIME 01/13/23 02/06/23 01/20/23 History docusate sodium 100 mg capsule 100 mg PO BEDTIME 01/13/23 02/06/23 01/20/23 History ezetimibe 10 mg tablet 10 mg PO DAILY 01/13/23 02/06/23 01/21/23 History flash glucose scanning reader 01/13/23 01/21/23 Unknown History (FreeStyle Daniel 2 [place]) flash glucose sensor (FreeStyle 01/13/23 01/21/23 Unknown History Daniel 2 Sensor kit) fluticasone propionate 50 2 spray intranasal DAILY PRN 01/13/23 02/06/23 Unknown History mcg/actuation nasal Congestion spray,suspension furosemide 40 mg tablet 40 mg PO BID 01/13/23 02/06/23 01/21/23 History gabapentin 300 mg capsule 300 mg PO DAILY 01/13/23 02/06/23 01/21/23 History hydralazine 50 mg tablet 100 mg PO TID 01/13/23 02/06/23 01/21/23 History isosorbide mononitrate 60 mg 60 mg PO DAILY 01/13/23 02/06/23 01/21/23 History tablet,extended release 24 hr tamsulosin 0.4 mg capsule 0.4 mg PO BEDTIME 01/13/23 02/06/23 01/20/23 History cholecalciferol (vitamin D3) 1,250 50,000 unit PO BEVERLY 01/21/23 02/06/23 01/20/23 History mcg (50,000 unit) capsule Physical Exam 2 Vital Signs and Narrative: Vital Signs: Last Vital Signs Temp 97.8 F 02/06/23 17:11 Pulse 67 02/06/23 19:20 Resp 18 02/06/23 19:20 Pulse Ox 97 02/06/23 17:11 O2 Del Method Room Air 02/06/23 17:11 BMI result Body Mass Index 25.8 General: AO X 3, no acute distress, mildly confused Resp: CTA bilateral, no accessory muscles used CVS: S1,S2,RRR GI: soft, non tender, distended, ccy tube in place, draining billous fluid Neuro: motor grossly intact, alert left bka, right tma Results Labs 02/06/23 17:50 02/06/23 17:50 Labs: Laboratory Results - last 24 hr 02/06/23 02/06/23 02/06/23 16:20 17:09 17:50 MCV 97.1 MCH 30.0 MCHC 30.8 L RDW 13.1 Plt Count 345 D MPV 10.0 Immature Gran % (Auto) 0.4 Neut % (Auto) 73.9 H Lymph % (Auto) 10.8 L [place] % (Auto) 12.8 H Eos % (Auto) 1.7 Baso % (Auto) 0.4 Lymph # (Auto) 0.8 L [place] # (Auto) 1.0 Eos # (Auto) 0.1 Baso # (Auto) 0.0 Abs Immat Gran (auto) 0.03 Absolute Neuts (auto) 5.5 Absolute Nucleated RBC 0.000 Nucleated RBC % (auto) 0.0 Anion Gap 14 Estim Creat Clear Calc 7.8 Estimated GFR 7 POC Glucose 85 90 Random Glucose 75 Calcium 8.8 Total Bilirubin 0.2 Direct Bilirubin < 0.2 AST 31 ALT 34 Alkaline Phosphatase 307 H Total Protein 7.8 Albumin 2.9 L Ethyl Alcohol < 10 02/06/23 19:11 MCV MCH MCHC RDW Plt Count MPV Immature Gran % (Auto) Neut % (Auto) Lymph % (Auto) [place] % (Auto) Eos % (Auto) Baso % (Auto) Lymph # (Auto) [place] # (Auto) Eos # (Auto) Baso # (Auto) Abs Immat Gran (auto) Absolute Neuts (auto) Absolute Nucleated RBC Nucleated RBC % (auto) Anion Gap Estim Creat Clear Calc Estimated GFR POC Glucose 62 Random Glucose Calcium Total Bilirubin Direct Bilirubin AST ALT Alkaline Phosphatase Total Protein Albumin Ethyl Alcohol Assessment and Plan (1) Anemia: Status: Acute Plan 67 year old male with a PMH of DM type 2, s/p L BKA and R TMA, Stabe 3b CKD, HTN, HLD, HFpEF, Renal artery stenosis, LIVE, HLD and PAD presented with AMS Acute metabolic encephalopathy due to uremic encephalopathy from acute kidney injury on CKD 3B with hyperkalemia and acute metabolic acidosis IV D5W with sodium bicarb, lokelma Monitor BMP Nephro eval Harris to check residual NPO after midnight for possible HD catheter placement (no order placed) Acute on chronic anemia, likely inflammatory/renal Transfusing 1 unit in ED Monitor hemoglobin No obvious bleed Recent acalculous cholecystitis with cholecystotomy tube Plan to maintain tube for about 6 weeks Continue Augmentin Diabetes with hypoglycemia Now off medications, most recent A1c 5.7, monitor point of care Chronic diastolic CHF Holding diuretics Renal artery stenosis Outpatient follow-up, continue aspirin statin Hypertension Continue Imdur, nifedipine, hydralazine, carvedilol DVT prophylaxis with heparin subQ Full code Patient with severe KEYA and uremia, with hyperkalemia, will likely need at least 2 midnights inpatient Quality Stroke Does the patient have a stroke diagnosis?: No VTE Prior VTE?: No VTE Risk Level:: Medical - moderate - high VTE Device Contraindication: N/A - Device Ordered VTE Drug Contraindication: N/A - Med Ordered
--- NOTE | 2023-02-06 20:26 | PHA.MEDREC ---
Pharmacy Consult ? Medication Reconciliation Pharmacy has completed the medication reconciliation.MED REC COMPLETE USING LIST FROM PT DISCHARGE FROM THIS HOSPITAL ON 02/01/23.
[2023-02-06] MEDS: Sodium Zirconium Cyclosilicate 10 GM POWD.PACK PO (20:31)
[2023-02-06] MEDS: Dextrose 50 % 25 GM/50 ML SYRINGE IVPUSH (20:31)
[2023-02-06 20:43] LABS: OBS Int Ctl Valid YES; OBS1 POSITIVE (NEGATIVE)
[2023-02-06 20:43] LABS: Glucose, Whole Blood 46 mg/dL (60-115)
--- NOTE | 2023-02-06 21:06 | PC.NURSE ---
pt right AC line infiltrated at this time, IV removed.
[2023-02-06 21:08] LABS: Glucose, Whole Blood 83 mg/dL (60-115)
--- NOTE | 2023-02-06 21:18 | PC.NURSE ---
delay in medication administration due to pt second line infiltrating, hospitalist aware. hospitalist verbal order to hold the bicarbinate at this time.
--- NOTE | 2023-02-06 21:45 | PC.NURSE ---
this rn called pharmacy to bring up augmentin which is not in the ED pyxis at this time.
[2023-02-06 21:50] VITALS: BP 150/55; PULSE 61; RESP 18; TEMP 36.4; O2SAT 96
[2023-02-06] MEDS: hydrALAZINE HCl 50 MG TABLET 100 MG PO (21:52)
[2023-02-06] MEDS: Sodium Bicarbonate 8.4% 150 MEQ in Dextrose 5 % 850 ML 100 MEQ IV (21:52)
[2023-02-06] MEDS: Docusate Sodium 100 MG CAPSULE PO (21:53)
[2023-02-06] MEDS: Atorvastatin Calcium 80 MG TABLET PO (21:53)
[2023-02-06] MEDS: Tamsulosin HCL 0.4 MG CAPSULE PO (21:53)
[2023-02-06] MEDS: carvediloL 25 MG TABLET PO (21:53)
[2023-02-06] MEDS: Amoxicillin/Potassium Clav 250 MG TABLET PO (21:55)
--- NOTE | 2023-02-06 22:06 | PC.NURSE ---
pt medicated per mar at this time.
[2023-02-06 23:16] VITALS: BP 110/45; PULSE 59; RESP 18; TEMP 36.2
--- NOTE | 2023-02-06 23:28 | PC.NURSE ---
blood transfusion started at this time, pt tolerating well. lung sounds clear bilaterally. Hospitalist aware of pt blood pressure.
[2023-02-06 23:39] VITALS: BP 116/50; PULSE 54; RESP 18; TEMP 36.4
--- NOTE | 2023-02-06 23:41 | PC.NURSE ---
per hospitalist verbal order, transfuse blood products at 75ml/hr.
--- NOTE | 2023-02-06 23:57 | PC.NURSE ---
valerio catheter placed at this time by this RN, pt tolerated well. 300ml yellow urine drained at this time. urine sample obtained and sent to lab.
[2023-02-07] VITALS (11 sets, daily range): BP systolic 119–172; BP diastolic 48–74; PULSE 53–63; RESP 16–20; TEMP 35.8–37; O2SAT 95–98; BMI 25.4
[2023-02-07 00:08] LABS: Appearance Urine Cloudy; Color Urine Yellow; Glucose Urine UA Negative (Negative); Leukocyte Esterase Urine Negative (Negative); Nitrite Urine Negative (Negative); Specific Gravity - Urine 1.015 (1.005-1.025); UMIC TRIGGER UACC YES; Urine Blood Negative (Negative); Urine Ketones Negative (Negative); Urine Protein 300 (3+) mg/dL (Neg-Trace)
[2023-02-07 00:16] LABS: Amphetamine Screen Urine Not Detected (Not Detect); Bacteria Urine None Seen (None Seen); Barbiturates, Urine Not Detected (Not Detect); Benzodiazepines Screen Urine Not Detected (Not Detect); Cannabinoid Screen Urine Not Detected (Not Detect); Cocaine Screen Urine Not Detected (Not Detect); Fentanyl, urine Not Detected (Not Detect); Opiate Screen Urine Not Detected (Not Detect); Phencyclidine Screen Urine Not Detected (Not Detect); RBC Urine 0-2 /HPF (0-2); Squamous Epithelial Cell Urine 0-2 /HPF (0-2); UACC Culture Trigger YES
[2023-02-07 01:02] LABS: Glucose, Whole Blood 70 mg/dL (60-115)
[2023-02-07 03:41] LABS: Glucose, Whole Blood 87 mg/dL (60-115)
--- NOTE | 2023-02-07 07:52 | MHC.CM.PN ---
IMM 02/07/23, CM MET W/PT VIA CLINICAL EDUCATION CONSULTANT, PT REPORTS HE LEFT AMA DUE TO BEING TIRED OF BEING IN THE HOSPITAL HOWEVER DIDN'T FEEL WELL AFTER BEING HOME FOR ONE DAY. 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 PT'S GOAL IS HOME HOWEVER PT MAY NEED STR PENDING P.T./HOSPITAL COURSE. PCP IS LISA MADSEN, HCP SPOUSE NATASHA AND COPY ON FILE
[2023-02-07 08:09] LABS: Glucose, Whole Blood 98 mg/dL (60-115)
[2023-02-07] MEDS: Sertraline HCL 50 MG TABLET PO (08:48)
[2023-02-07] MEDS: hydrALAZINE HCl 50 MG TABLET 100 MG PO ×3 (08:48→20:33)
[2023-02-07] MEDS: Gabapentin 300 MG CAPSULE PO (08:48)
[2023-02-07] MEDS: Ezetimibe 10 MG TABLET PO (08:48)
[2023-02-07] MEDS: 0.9 % Sodium Chloride Flush 3 ML SYRINGE IVFLUSH (08:48)
[2023-02-07] MEDS: carvediloL 25 MG TABLET PO ×2 (08:48→20:33)
[2023-02-07] MEDS: Isosorbide Mononitrate 60 MG TAB.ER.24H PO (08:48)
[2023-02-07] MEDS: NIFEdipine ER 30 MG TAB.ER.24 90 MG PO (08:48)
[2023-02-07] MEDS: Amoxicillin/Potassium Clav 250 MG TABLET PO ×2 (08:49→20:33)
[2023-02-07] MEDS: Sodium Bicarbonate 8.4% 150 MEQ in Dextrose 5 % 850 ML 100 MEQ IV ×2 (08:53→09:05)
--- NOTE | 2023-02-07 10:12 | P.CNGI_ITS ---
History of Present Illness Data of Consult Service Date: 02/07/23 Requesting physician: Federico Loyd Primary Care Provider: Marline Richard MD HPI Reason for consult: anemia 67 year old male with a PMH of DM type 2, s/p L BKA and R TMA, CKD, HTN, HLD, HFpEF, Renal artery stenosis, LIVE, HLD and PAD, [place] [facility] [place] hospitalization for KEYA on ckd 3b requiring temproary HD, who I am seeing for assessment for anemia. Patient presented with AMS and lethargy as well as leakage from around a choelcystotomy tube. Based on labs with much worse BUn/creat , high K and acidosis he was thought to be in ESRF and plan is for dialysis today. Patient was more alert today when I saw him and he denied any complaints, incl chest pain, abdominal pain, nausea, diarrhea, constipation, rectal bleeding, melena, gums bleeding , hematuria. His HGb was noted to be 6 g/dl this admission with baseline around 7-8 g/dl allen. Review of Systems 2 Review of Systems: Constitutional : No Weight loss, No Fever, No Chills ENT/Mouth : No sore throat, No Rhinorrhea Eyes: No Swelling, No Redness Cardiovascular : No Chest Pain, No SOB, No Edema Respiratory : No Cough, No Sputum, No Wheezing Gastrointestinal : see HPI Genitourinary : NO Dysuria, No Urinary Frequency, No Hematuria, No Urgency Musculoskeletal : No joint pain, No Myalgias, No Joint Swelling Skin : No Skin Lesions, No rash Neuro : + Weakness, No Numbness, No Dizziness, No Headache Psych : No Anxiety/Panic, No Depression Heme/Lymph: No Bruising, No Lymphadenopathy Endocrine : No Polyuria, No Polydipsia All other systems reviewed and are negative. [facility] Past Medical History Medical History (Updated 02/07/23 @ 11:00 by Alec Hankins MD) ESRD (end stage renal disease) CKD (chronic kidney disease) stage 3, GFR 30-59 ml/min Renal artery stenosis Anemia Uncontrolled hypertension Erectile dysfunction (HFpEF) heart failure with preserved ejection fraction Osteomyelitis CKD stage 3 due to type 2 diabetes mellitus LIVE (iron deficiency anemia) Hyperlipidemia associated with type 2 diabetes mellitus Type 2 diabetes mellitus Kidney disease High cholesterol HTN (hypertension) Diabetes PAD (peripheral artery disease) Family History Family History Other No family history of coronary artery disease Surgical History Surgical History Status post transmetatarsal amputation of left foot Hx of amputation History of amputation of right forefoot H/O shoulder surgery Social History Social History Household Members: None Housing: Apartment Do you presently have visiting nurse or other home services: Yes ([employer] ONLY) Alcohol intake: current Alcohol intake frequency: a few times a month Alcohol type: beer Comment: previously medicated with IV morphine Patient Tobacco Use Status: Never used Tobacco Tobacco use type: Cigarette Substance Use Type: Crack/Cocaine Currently Displaying Signs/Symptoms of Drug Intoxication Withdrawal: No Have you been hit, kicked, punched, or otherwise hurt by someone within the past year? If so, by whom?: No Do you feel safe in your current relationship?: No Current Relationship Is there a partner from a previous relationship who is making you feel unsafe now?: No Are you made to feel afraid or neglected: No Advance Directives: Yes Advance Directives on File: Yes Advance Directives Date on File: 02/02/22 Do you have thoughts of harming others: None Do you have a plan to hurt others: No Plan Recently lost weight without trying: No Nutrition Risks: No Nutritional Risk Poor oral hygiene: No service: No Current occupational status: retired Meds Allergies Allergy/AdvReac Type Severity Reaction Status Date / Time metformin AdvReac Unknown Verified 01/24/23 14:42 Active Medications: Current Medications Albuterol Sulfate (Albuterol Sulfate 90 Mcg 8 Gm Inhaler) 2 puff INHALE Q4H PRN PRN Reason: Wheezing Amoxicillin/Clavulanate Potassium (Amoxicillin/Potassium Clav 250 Mg Tablet) 250 mg PO Q12H [facility] Last Admin: 02/07/23 08:49 Dose: 250 mg Aspirin (Aspirin 81 Mg Tab.Chew) 81 mg PO DAILY [facility] Atorvastatin Calcium (Atorvastatin Calcium 80 Mg Tablet) 80 mg PO BEDTIME ANNABELLA Last Admin: 02/06/23 21:53 Dose: 80 mg Carvedilol (Carvedilol 25 Mg Tablet) 25 mg PO BID [facility]; Protocol Last Admin: 02/07/23 08:48 Dose: 25 mg Docusate Sodium (Docusate Sodium 100 Mg Capsule) 100 mg PO BEDTIME [facility] Last Admin: 02/06/23 21:53 Dose: 100 mg Ezetimibe (Ezetimibe 10 Mg Tablet) 10 mg PO DAILY [facility] Last Admin: 02/07/23 08:48 Dose: 10 mg Gabapentin (Gabapentin 300 Mg Capsule) 300 mg PO DAILY [facility] Last Admin: 02/07/23 08:48 Dose: 300 mg Heparin Sodium (Porcine) (Heparin Sodium,Porcine 5,000 Unit/Ml Vial) 5,000 unit SUBCUT Q12H [facility] Hydralazine HCl (Hydralazine Hcl 50 Mg Tablet) 100 mg PO TID [facility]; Protocol Last Admin: 02/07/23 08:48 Dose: 100 mg Sodium Bicarbonate 150 meq/ (Dextrose) 1,000 mls @ 100 mls/hr IV .Q10H [facility] Last Infusion: 02/07/23 09:27 Dose: 0 mls/hr Isosorbide Mononitrate (Isosorbide Mononitrate 60 Mg Tab.Er.24h) 60 mg PO DAILY [facility]; Protocol Last Admin: 02/07/23 08:48 Dose: 60 mg Mannitol (Mannitol 12.5 Gm/50 Ml Vial) 12.5 gm IV ONCE@0900 [facility] Stop: 02/08/23 09:01 Nifedipine (Nifedipine Er 30 Mg Tab.Er.24) 90 mg PO DAILY [facility]; Protocol Last Admin: 02/07/23 08:48 Dose: 90 mg Sertraline HCl (Sertraline Hcl 50 Mg Tablet) 50 mg PO DAILY [facility] Last Admin: 02/07/23 08:48 Dose: 50 mg Sodium Chloride (0.9 % Sodium Chloride Flush 3 Ml Syringe) 3 ml IVFLUSH QSHIFT [facility] Last Admin: 02/07/23 08:48 Dose: 3 ml Tamsulosin HCl (Tamsulosin Hcl 0.4 Mg Capsule) 0.4 mg PO BEDTIME [facility] Last Admin: 02/06/23 21:53 Dose: 0.4 mg Home Medications Medication Instructions Recorded Confirmed Last Taken Type sertraline 50 mg tablet 50 mg PO DAILY 04/27/21 02/06/23 01/21/23 History albuterol sulfate 90 mcg/actuation 2 puff inhalation Q4H PRN Wheezing 01/13/23 02/06/23 Unknown History aerosol inhaler (Ventolin HFA) aspirin 81 mg chewable tablet 1 tab PO DAILY 01/13/23 02/06/23 01/21/23 History atorvastatin 80 mg tablet 80 mg PO BEDTIME 01/13/23 02/06/23 01/20/23 History docusate sodium 100 mg capsule 100 mg PO BEDTIME 01/13/23 02/06/23 01/20/23 History ezetimibe 10 mg tablet 10 mg PO DAILY 01/13/23 02/06/23 01/21/23 History flash glucose scanning reader 01/13/23 01/21/23 Unknown History (FreeStyle Daniel 2 [place]) flash glucose sensor (FreeStyle 01/13/23 01/21/23 Unknown History Daniel 2 Sensor kit) fluticasone propionate 50 2 spray intranasal DAILY PRN 01/13/23 02/06/23 Unknown History mcg/actuation nasal Congestion spray,suspension furosemide 40 mg tablet 40 mg PO BID 01/13/23 02/06/23 01/21/23 History gabapentin 300 mg capsule 300 mg PO DAILY 01/13/23 02/06/23 01/21/23 History hydralazine 50 mg tablet 100 mg PO TID 01/13/23 02/06/23 01/21/23 History isosorbide mononitrate 60 mg 60 mg PO DAILY 01/13/23 02/06/23 01/21/23 History tablet,extended release 24 hr tamsulosin 0.4 mg capsule 0.4 mg PO BEDTIME 01/13/23 02/06/23 01/20/23 History cholecalciferol (vitamin D3) 1,250 50,000 unit PO BEVERLY 01/21/23 02/06/23 01/20/23 History mcg (50,000 unit) capsule Physical Exam 2 Vital Signs: Vital Signs: Last Vital Signs Temp 97.1 F 02/07/23 08:00 Pulse 60 02/07/23 08:00 Resp 18 02/07/23 08:00 BP 172/74 H 02/07/23 08:00 Pulse Ox 97 02/07/23 08:00 O2 Del Method Room Air 02/07/23 08:00 BMI result Body Mass Index 25.4 EXAM: GENERAL: The patient is relaxed VITAL SIGNS:see workflow HEENT: Nonicteric sclerae, PERRLA, EOMI. Oropharynx clear. Moist mucous membranes. Conjunctivae appear aple. No thyroid mass. CHEST: Chest wall is nontender. HEART: Regular rate and rhythm without murmurs. LUNGS: Clear to auscultation bilaterally. ABDOMEN: Soft, positive bowel sounds, nontender, no organomegaly.no flank tenderness SKIN: No rash, no excessive bruising, petechiae, or purpura. NEUROLOGIC: Cranial nerves II-XII intact without motor/sensory deficit. slightly lethargic Psych: Mental Status: mental status grossly normal Speech and movement: S lowed speech present (Psych) Results Labs 02/07/23 11:44 02/07/23 11:44 Labs: Short CBC 02/06/23 Range/Units 17:50 WBC 7.4 (4.8-10.8) X10*3/uL Hgb 6.2 L* D (14.0-18.0) g/dl Hct 20.1 L* (42.0-52.0) % Plt Count 345 D (160-400) X10*3/uL BMP 02/06/23 17:50 Sodium 137 Potassium 6.0 H* D Chloride 113 H Carbon Dioxide 16 L BUN 90 H Creatinine 8.28 H* Calcium 8.8 Liver Function 02/06/23 Range/Units 17:50 Total Bilirubin 0.2 (0.0-1.0) mg/dL Direct Bilirubin < 0.2 (0.0-0.5) mg/dL AST 31 (5-37) U/L ALT 34 (0-40) U/L Alkaline Phosphatase 307 H (39-117) U/L Albumin 2.9 L (3.5-5.0) g/dL Urine 02/07/23 Range/Units 00:01 Urine Color Yellow Urine Appearance Cloudy Urine pH 5.0 (5.0-9.0) Ur Specific [place] 1.015 (1.005-1.025) Urine Protein 300 (3+) H (Neg-Trace) mg/dL Urine Glucose (UA) Negative (Negative) mg/dL Assessment and Plan (1) Anemia: Status: Acute (2) ESRD (end stage renal disease): Status: Acute Plan 1/ Anemia, no overt GIB, but now ESRF requiring HD. Most likely anemia of chronic disease verónica as he had nml iron indices few weeks back, other possibility is uremic gastritis, neplasia, PUD< gut ischemia. malnutrition PLAN: 1/ EGD and colonoscopy once renal situation is stabilized, maybe next week if still here or early outpatient 2/ consider iron supplements and epo injections 3/ can consider low dose PPI or h2 [place] Procedures Date of Service Date of Service: 02/07/23
[2023-02-07] MEDS: Lidocaine HCl 1 % MPF 30 ML VIAL 10 ML SUBCUT (10:24)
--- NOTE | 2023-02-07 10:25 | P.PNNP_ITS ---
Subjective Subjective Date of Service: 02/19/23 Interval history: Pt recently d/c'd Readmitted with High K / Acidosis / Uremic Physical Exam 2 Vital Signs: Vital Signs: Last Vital Signs Temp 97.1 F 02/07/23 08:00 Pulse 60 02/07/23 08:00 Resp 18 02/07/23 08:00 BP 172/74 H 02/07/23 08:00 Pulse Ox 97 02/07/23 08:00 O2 Del Method Room Air 02/07/23 08:00 BMI result Body Mass Index 25.4 Const: General: alert and awake HEENT: Head: Yes normocephalic and Yes atraumatic Neck: Neck: Yes supple Resp: Auscultation: diminished lung sounds Cardio: Heart sounds: S1 normal heart sound present and S2 normal heart sound present GI: Palpation (GI): Soft to palpation and nontender Extrem: General: Yes edema Objective Data Labs 02/14/23 06:03 02/14/23 06:03 Labs: Laboratory Results - last 24 hr 02/06/23 02/06/23 02/06/23 16:20 17:09 17:50 WBC 7.4 RBC 2.07 L Hgb 6.2 L* D Hct 20.1 L* MCV 97.1 MCH 30.0 MCHC 30.8 L RDW 13.1 Plt Count 345 D MPV 10.0 Immature Gran % (Auto) 0.4 Neut % (Auto) 73.9 H Lymph % (Auto) 10.8 L [place] % (Auto) 12.8 H Eos % (Auto) 1.7 Baso % (Auto) 0.4 Lymph # (Auto) 0.8 L [place] # (Auto) 1.0 Eos # (Auto) 0.1 Baso # (Auto) 0.0 Abs Immat Gran (auto) 0.03 Absolute Neuts (auto) 5.5 Absolute Nucleated RBC 0.000 Nucleated RBC % (auto) 0.0 Sodium 137 Potassium 6.0 H* D Chloride 113 H Carbon Dioxide 16 L Anion Gap 14 BUN 90 H Creatinine 8.28 H* Estim Creat Clear Calc 7.8 Estimated GFR 7 POC Glucose 85 90 Random Glucose 75 Calcium 8.8 Total Bilirubin 0.2 Direct Bilirubin < 0.2 AST 31 ALT 34 Alkaline Phosphatase 307 H Total Protein 7.8 Albumin 2.9 L Urine Color Urine Appearance Urine pH Ur Specific [place] Urine Protein Urine Glucose (UA) Urine Ketones Urine Blood Urine Nitrite Ur Leukocyte Esterase Urine RBC Urine WBC Ur Squamous Epith Cells Urine Bacteria Hyaline Casts Stool Occult Blood Urine Opiates Screen Urine Fentanyl Screen Ur Barbiturates Screen Ur Phencyclidine Scrn Ur Amphetamines Screen U Benzodiazepines Scrn Urine Cocaine Screen U Marijuana (THC) Screen Ethyl Alcohol < 10 Blood Type Antibody Screen Crossmatch 02/06/23 02/06/23 02/06/23 19:11 20:34 20:37 WBC RBC Hgb Hct MCV MCH MCHC RDW Plt Count MPV Immature Gran % (Auto) Neut % (Auto) Lymph % (Auto) [place] % (Auto) Eos % (Auto) Baso % (Auto) Lymph # (Auto) [place] # (Auto) Eos # (Auto) Baso # (Auto) Abs Immat Gran (auto) Absolute Neuts (auto) Absolute Nucleated RBC Nucleated RBC % (auto) Sodium Potassium Chloride Carbon Dioxide Anion Gap BUN Creatinine Estim Creat Clear Calc Estimated GFR POC Glucose 62 46 L* Random Glucose Calcium Total Bilirubin Direct Bilirubin AST ALT Alkaline Phosphatase Total Protein Albumin Urine Color Urine Appearance Urine pH Ur Specific [place] Urine Protein Urine Glucose (UA) Urine Ketones Urine Blood Urine Nitrite Ur Leukocyte Esterase Urine RBC Urine WBC Ur Squamous Epith Cells Urine Bacteria Hyaline Casts Stool Occult Blood POSITIVE Urine Opiates Screen Urine Fentanyl Screen Ur Barbiturates Screen Ur Phencyclidine Scrn Ur Amphetamines Screen U Benzodiazepines Scrn Urine Cocaine Screen U Marijuana (THC) Screen Ethyl Alcohol Blood Type Antibody Screen Crossmatch 02/06/23 02/06/23 02/07/23 20:57 21:04 00:01 WBC RBC Hgb Hct MCV MCH MCHC RDW Plt Count MPV Immature Gran % (Auto) Neut % (Auto) Lymph % (Auto) [place] % (Auto) Eos % (Auto) Baso % (Auto) Lymph # (Auto) [place] # (Auto) Eos # (Auto) Baso # (Auto) Abs Immat Gran (auto) Absolute Neuts (auto) Absolute Nucleated RBC Nucleated RBC % (auto) Sodium Potassium Chloride Carbon Dioxide Anion Gap BUN Creatinine Estim Creat Clear Calc Estimated GFR POC Glucose 83 Random Glucose Calcium Total Bilirubin Direct Bilirubin AST ALT Alkaline Phosphatase Total Protein Albumin Urine Color Yellow Urine Appearance Cloudy Urine pH 5.0 Ur Specific [place] 1.015 Urine Protein 300 (3+) H Urine Glucose (UA) Negative Urine Ketones Negative Urine Blood Negative Urine Nitrite Negative Ur Leukocyte Esterase Negative Urine RBC 0-2 Urine WBC 6-10 H Ur Squamous Epith Cells 0-2 Urine Bacteria None Seen Hyaline Casts 3-5 Stool Occult Blood Urine Opiates Screen Not Detected Urine Fentanyl Screen Not Detected Ur Barbiturates Screen Not Detected Ur Phencyclidine Scrn Not Detected Ur Amphetamines Screen Not Detected U Benzodiazepines Scrn Not Detected Urine Cocaine Screen Not Detected U Marijuana (THC) Screen Not Detected Ethyl Alcohol Blood Type O Positive Antibody Screen NEGATIVE Crossmatch See Detail 02/07/23 02/07/23 02/07/23 00:58 03:36 08:03 WBC RBC Hgb Hct MCV MCH MCHC RDW Plt Count MPV Immature Gran % (Auto) Neut % (Auto) Lymph % (Auto) [place] % (Auto) Eos % (Auto) Baso % (Auto) Lymph # (Auto) [place] # (Auto) Eos # (Auto) Baso # (Auto) Abs Immat Gran (auto) Absolute Neuts (auto) Absolute Nucleated RBC Nucleated RBC % (auto) Sodium Potassium Chloride Carbon Dioxide Anion Gap BUN Creatinine Estim Creat Clear Calc Estimated GFR POC Glucose 70 87 98 Random Glucose Calcium Total Bilirubin Direct Bilirubin AST ALT Alkaline Phosphatase Total Protein Albumin Urine Color Urine Appearance Urine pH Ur Specific [place] Urine Protein Urine Glucose (UA) Urine Ketones Urine Blood Urine Nitrite Ur Leukocyte Esterase Urine RBC Urine WBC Ur Squamous Epith Cells Urine Bacteria Hyaline Casts Stool Occult Blood Urine Opiates Screen Urine Fentanyl Screen Ur Barbiturates Screen Ur Phencyclidine Scrn Ur Amphetamines Screen U Benzodiazepines Scrn Urine Cocaine Screen U Marijuana (THC) Screen Ethyl Alcohol Blood Type Antibody Screen Crossmatch Procedures Date of Service Date of Service: 02/19/23 Assessment & Plan Assessment and plan (1) DEVON (acute kidney injury): Status: Inactive (2) (HFpEF) heart failure with preserved ejection fraction: Status: Acute (3) Renal artery stenosis: Status: Inactive (4) ESRD (end stage renal disease): Status: Acute Plan 1. DEVON now requiring HD- Progressive CKD causes as noted below / Multiple Devon with nephron loss Was on HD and came off Now with hyperkalemia / Uremia / Acidosis 2. Recent multilateral DEVON: -CRS -acute tubular injury -acute hypertensive nephrosclerosis 3. known CKD 4 due to DM/HTN/vascular disease proteinuria 1.8 g 4. previous US showed ? right renal artery stenosis- REC temporary dialysis catheter -= Today HD today/ AM and on Saturday No need for sodium bicarb follow kidney function and electrolytes I will arrange out pt HD Pt with ? [facility]- Kidney size is normal - Once more stable will do a CTA of Renal Arteries / MRA- ? [place] using new Dye which does not cause NSF Dr Modi his outpatient neurologist i Time Spent With Patient Time: Total time managing care of this patient today ____ minutes. Progress Note: Quality Stroke Does the patient have a stroke diagnosis?: No
--- NOTE | 2023-02-07 10:38 | HO.RADPN ---
RADIOLOGY Narrative Narrative: Procedure Note: Right IJ Permacath Right IJ 27 cm Permacath placed using US and Fluoro. Tip at cavoatrial junction. Ok for use Yuri DEAN Interventional Radiology
[2023-02-07 11:32] LABS: Glucose, Whole Blood 84 mg/dL (60-115)
[2023-02-07 11:58] LABS: Hematocrit 21.5 % (42.0-52.0); Mean Corpuscular HGB Conc 31.6 g/dl (31.0-36.0); Mean Corpuscular Hemoglobin 30.4 pg (27.0-33.0); Mean Platelet Volume 10.2 fL (9.4-12.4); Platelet Count 301 X10*3/uL (160-400); Red Blood Count 2.24 X10*6/uL (4.60-5.80); Red Cell Distribution Width 13.5 % (11.0-16.0); White Blood Count 6.1 X10*3/uL (4.8-10.8)
[2023-02-07 12:09] LABS: Prothrombin Time 11.9 SEC (11.1-13.3)
[2023-02-07 12:11] LABS: Hemoglobin 6.8 g/dl (14.0-18.0); Partial Thromboplastin Time 36.6 SEC (26.0-36.4)
[2023-02-07 12:13] LABS: Alanine Aminotransferase 28 U/L (0-40); Albumin Level 2.6 g/dL (3.5-5.0); Alkaline Phosphatase 257 U/L (39-117); Anion Gap 14 (12-20); Aspartate Amino Transferase 25 U/L (5-37); Bilirubin Direct < 0.2 mg/dL (0.0-0.5); Bilirubin Total 0.2 mg/dL (0.0-1.0); Blood Urea Nitrogen 92 mg/dL (9-16); Calcium 8.7 mg/dL (8.4-10.2); Carbon Dioxide 17 mmol/L (22-29); Chloride 111 mmol/L (96-108); Creatinine Clr Calc Pharmacy 7.8; Estimated Glomerular Filt Rate 7; Glucose Fasting 87 mg/dL (60-99); Magnesium 2.3 mg/dL (1.6-2.6); Potassium 5.7 mmol/L (3.3-5.1); Sodium 136 mmol/L (135-145); Total Protein 7.1 g/dL (6.5-8.0)
--- NOTE | 2023-02-07 12:49 | P.CONGS_ITS ---
History of Present Illness Consult details Consult date: 02/07/23 Reason for consult: other Narrative: Very pleasant 67-year-old gentleman well known to me for peripheral vascular disease. He has been a patient of mine since 2020. He was actually scheduled for office visit today but ended up in the emergency room. He has undergone catheter placement and is now scheduled for dialysis. Was noted to have low hemoglobin on admission. Now for vascular evaluation. Of note he is right-hand dominant Review of Systems 2 Review of Systems: Yes all other systems are reviewed and are negative Constitutional: Constitutional: Reports no additional constitutional complaints ENT: Reports Normal hearing present Cardiovascular: Cardiovascular: Denies chest pain, Denies chest pain at rest, Denies chest pain with activity and Denies pedal edema Respiratory: Respiratory: Denies cough Gastrointestinal: Gastrointestinal: Denies abdominal pain Musculoskeletal: Musculoskeletal: Denies abnormal gait, Denies muscle cramps and Denies radiating pain into limb Integumentary/Breasts: Skin/Breast: Denies skin ulcer and Denies wounds Neurologic: Reports Normal hearing present and Denies abnormal gait Psychiatric: Psychiatric: Reports no additional psychiatric complaints [facility] Past Medical History Medical History (Updated 02/07/23 @ 11:00 by Alec Hankins MD) ESRD (end stage renal disease) CKD (chronic kidney disease) stage 3, GFR 30-59 ml/min Renal artery stenosis Anemia Uncontrolled hypertension Erectile dysfunction (HFpEF) heart failure with preserved ejection fraction Osteomyelitis CKD stage 3 due to type 2 diabetes mellitus LIVE (iron deficiency anemia) Hyperlipidemia associated with type 2 diabetes mellitus Type 2 diabetes mellitus Kidney disease High cholesterol HTN (hypertension) Diabetes PAD (peripheral artery disease) Family History Family History Other No family history of coronary artery disease Surgical History Surgical History Status post transmetatarsal amputation of left foot Hx of amputation History of amputation of right forefoot H/O shoulder surgery Social History Social History Household Members: None Housing: Apartment Do you presently have visiting nurse or other home services: Yes ([employer] ONLY) Alcohol intake: current Alcohol intake frequency: a few times a month Alcohol type: beer Comment: previously medicated with IV morphine Patient Tobacco Use Status: Never used Tobacco Tobacco use type: Cigarette Substance Use Type: Crack/Cocaine Currently Displaying Signs/Symptoms of Drug Intoxication Withdrawal: No Have you been hit, kicked, punched, or otherwise hurt by someone within the past year? If so, by whom?: No Do you feel safe in your current relationship?: No Current Relationship Is there a partner from a previous relationship who is making you feel unsafe now?: No Are you made to feel afraid or neglected: No Advance Directives: Yes Advance Directives on File: Yes Advance Directives Date on File: 02/02/22 Do you have thoughts of harming others: None Do you have a plan to hurt others: No Plan Recently lost weight without trying: No Nutrition Risks: No Nutritional Risk Poor oral hygiene: No service: No Current occupational status: retired [employer] Allergies Allergy/AdvReac Type Severity Reaction Status Date / Time metformin AdvReac Unknown Verified 01/24/23 14:42 Active Medications: Current Medications Albuterol Sulfate (Albuterol Sulfate 90 Mcg 8 Gm Inhaler) 2 puff INHALE Q4H PRN PRN Reason: Wheezing Amoxicillin/Clavulanate Potassium (Amoxicillin/Potassium Clav 250 Mg Tablet) 250 mg PO Q12H [facility] Last Admin: 02/07/23 08:49 Dose: 250 mg Aspirin (Aspirin 81 Mg Tab.Chew) 81 mg PO DAILY [facility] Atorvastatin Calcium (Atorvastatin Calcium 80 Mg Tablet) 80 mg PO BEDTIME [facility] Last Admin: 02/06/23 21:53 Dose: 80 mg Carvedilol (Carvedilol 25 Mg Tablet) 25 mg PO BID [facility]; Protocol Last Admin: 02/07/23 08:48 Dose: 25 mg Docusate Sodium (Docusate Sodium 100 Mg Capsule) 100 mg PO BEDTIME [facility] Last Admin: 02/06/23 21:53 Dose: 100 mg Ezetimibe (Ezetimibe 10 Mg Tablet) 10 mg PO DAILY [facility] Last Admin: 02/07/23 08:48 Dose: 10 mg Gabapentin (Gabapentin 300 Mg Capsule) 300 mg PO DAILY [facility] Last Admin: 02/07/23 08:48 Dose: 300 mg Heparin Sodium (Porcine) (Heparin Sodium,Porcine 5,000 Unit/Ml Vial) 5,000 unit SUBCUT Q12H [facility] Hydralazine HCl (Hydralazine Hcl 50 Mg Tablet) 100 mg PO TID [facility]; Protocol Last Admin: 02/07/23 08:48 Dose: 100 mg Sodium Bicarbonate 150 meq/ (Dextrose) 1,000 mls @ 100 mls/hr IV .Q10H [facility] Last Infusion: 02/07/23 09:27 Dose: 0 mls/hr Sodium Chloride (Ns) 100 mls @ 100 mls/hr IV ONCE ONE Stop: 02/07/23 13:09 Isosorbide Mononitrate (Isosorbide Mononitrate 60 Mg Tab.Er.24h) 60 mg PO DAILY [facility]; Protocol Last Admin: 02/07/23 08:48 Dose: 60 mg Mannitol (Mannitol 12.5 Gm/50 Ml Vial) 12.5 gm IV ONCE@0900 [facility] Stop: 02/08/23 09:01 Nifedipine (Nifedipine Er 30 Mg Tab.Er.24) 90 mg PO DAILY [facility]; Protocol Last Admin: 02/07/23 08:48 Dose: 90 mg Sertraline HCl (Sertraline Hcl 50 Mg Tablet) 50 mg PO DAILY [facility] Last Admin: 02/07/23 08:48 Dose: 50 mg Sodium Chloride (0.9 % Sodium Chloride Flush 3 Ml Syringe) 3 ml IVFLUSH QSHIFT [facility] Last Admin: 02/07/23 08:48 Dose: 3 ml Tamsulosin HCl (Tamsulosin Hcl 0.4 Mg Capsule) 0.4 mg PO BEDTIME [facility] Last Admin: 02/06/23 21:53 Dose: 0.4 mg Home Medications Medication Instructions Recorded Confirmed Last Taken Type sertraline 50 mg tablet 50 mg PO DAILY 04/27/21 02/06/23 01/21/23 History albuterol sulfate 90 mcg/actuation 2 puff inhalation Q4H PRN Wheezing 01/13/23 02/06/23 Unknown History aerosol inhaler (Ventolin HFA) aspirin 81 mg chewable tablet 1 tab PO DAILY 01/13/23 02/06/23 01/21/23 History atorvastatin 80 mg tablet 80 mg PO BEDTIME 01/13/23 02/06/23 01/20/23 History docusate sodium 100 mg capsule 100 mg PO BEDTIME 01/13/23 02/06/23 01/20/23 History ezetimibe 10 mg tablet 10 mg PO DAILY 01/13/23 02/06/23 01/21/23 History flash glucose scanning reader 01/13/23 01/21/23 Unknown History ([place] [employer] [place]) flash glucose sensor (FreeStyle 01/13/23 01/21/23 Unknown History Daniel 2 Sensor kit) fluticasone propionate 50 2 spray intranasal DAILY PRN 01/13/23 02/06/23 Unknown History mcg/actuation nasal Congestion spray,suspension furosemide 40 mg tablet 40 mg PO BID 01/13/23 02/06/23 01/21/23 History gabapentin 300 mg capsule 300 mg PO DAILY 01/13/23 02/06/23 01/21/23 History hydralazine 50 mg tablet 100 mg PO TID 01/13/23 02/06/23 01/21/23 History isosorbide mononitrate 60 mg 60 mg PO DAILY 01/13/23 02/06/23 01/21/23 History tablet,extended release 24 hr tamsulosin 0.4 mg capsule 0.4 mg PO BEDTIME 01/13/23 02/06/23 01/20/23 History cholecalciferol (vitamin D3) 1,250 50,000 unit PO [place] 01/21/23 02/06/23 01/20/23 History mcg (50,000 unit) capsule Physical Exam 2 Vital Signs: Vital Signs: Last Vital Signs Temp 97.4 F 02/07/23 11:21 Pulse 57 02/07/23 11:21 Resp 20 02/07/23 11:21 BP 129/60 02/07/23 11:21 Pulse Ox 96 02/07/23 11:21 O2 Del Method Room Air 02/07/23 11:21 BMI result Body Mass Index 25.4 Const: General: cooperative, healthy appearing and comfortable O rientation/consciousness: oriented to person, oriented to place and oriented to time HEENT: Head: Yes normal to inspection Neck: Neck: Yes normal visual inspection Carotids: no bruits Chest: Chest palpation & inspection: normal inspection of the chest Resp: Effort & Inspection: normal respiratory effort and able to speak in complete sentences Auscultation: clear to auscultation bilaterally, no crackles, no rales, no rhonchi and no wheezes Cardio: Rate: regular rate Rhythm: regular rhythm Heart sounds: S1 normal heart sound present and S2 normal heart sound present Bruits: no carotid bruits Peripheral pulses: Peripheral pulses 2+ throughout GI: Inspection: Yes normal to inspection Skin: General skin exam: no rashes or lesions noted Wounds: no wounds H air: normal Neuro: General: oriented to person, oriented to place and oriented to time Cranial nerves: Yes CN's II-XII intact bilaterally and Yes Normal hearing present Cognition (Neuro): normal cognition Motor exam (neuro): 5/5 motor strength present throughout Extrem: Other: venous exam: No significant superficial varicosities or spider telangiectasias, minimal edema General: No clubbing, No cyanosis and No edema Psych: Appearance: grossly normal Mental Status: mental status grossly normal Speech and movement: Normal speech and movement present Affect: n ormal affect Results Labs 02/07/23 11:44 02/07/23 11:44 Labs: Abnormal lab results 02/06/23 02/06/23 02/06/23 Range/Units 17:50 20:34 20:57 RBC 2.07 L (4.60-5.80) X10*6/uL Hgb 6.2 L* D (14.0-18.0) g/dl Hct 20.1 L* (42.0-52.0) % MCHC 30.8 L (31.0-36.0) g/dl Neut % (Auto) 73.9 H (45-73) % Lymph % (Auto) 10.8 L (20-40) % Emanuel % (Auto) 12.8 H (2-11) % Lymph # (Auto) 0.8 L (1.2-4.9) X10*3/uL APTT (26.0-36.4) SEC Potassium 6.0 H* D (3.3-5.1) mmol/L Chloride 113 H (96-108) mmol/L Carbon Dioxide 16 L (22-29) mmol/L BUN 90 H (9-16) mg/dL Creatinine 8.28 H* (0.5-1.4) mg/dL POC Glucose 46 L* (60-115) mg/dL Alkaline Phosphatase 307 H (39-117) U/L Albumin 2.9 L (3.5-5.0) g/dL Urine Protein (Neg-Trace) mg/dL Urine WBC (0-5) /HPF Crossmatch See Detail 02/07/23 02/07/23 Range/Units 00:01 11:44 RBC 2.24 L (4.60-5.80) X10*6/uL Hgb 6.8 L* (14.0-18.0) g/dl Hct 21.5 L (42.0-52.0) % MCHC (31.0-36.0) g/dl Neut % (Auto) (45-73) % Lymph % (Auto) (20-40) % Emanuel % (Auto) (2-11) % Lymph # (Auto) (1.2-4.9) X10*3/uL APTT 36.6 H D (26.0-36.4) SEC Potassium 5.7 H (3.3-5.1) mmol/L Chloride 111 H (96-108) mmol/L Carbon Dioxide 17 L (22-29) mmol/L BUN 92 H (9-16) mg/dL Creatinine 8.27 H* (0.5-1.4) mg/dL POC Glucose (60-115) mg/dL Alkaline Phosphatase 257 H (39-117) U/L Albumin 2.6 L (3.5-5.0) g/dL Urine Protein 300 (3+) H (Neg-Trace) mg/dL Urine WBC 6-10 H (0-5) /HPF Crossmatch Short CBC 02/06/23 02/07/23 Range/Units 17:50 11:44 WBC 7.4 6.1 (4.8-10.8) X10*3/uL Hgb 6.2 L* D 6.8 L* (14.0-18.0) g/dl Hct 20.1 L* 21.5 L (42.0-52.0) % Plt Count 345 D 301 (160-400) X10*3/uL BMP 02/06/23 02/07/23 02/07/23 17:50 11:44 11:44 Sodium 137 Cancelled 136 Potassium 6.0 H* D Cancelled Chloride 113 H Carbon Dioxide 16 L BUN 90 H Creatinine 8.28 H* Calcium 8.8 02/07/23 02/07/23 02/07/23 11:44 11:44 11:44 Sodium Potassium 5.7 H Chloride Cancelled 111 H Carbon Dioxide Cancelled 17 L BUN Cancelled Creatinine Calcium 02/07/23 02/07/23 02/07/23 11:44 11:44 11:44 Sodium Potassium Chloride Carbon Dioxide BUN 92 H Creatinine Cancelled 8.27 H* Calcium Cancelled 8.7 Liver Function 02/06/23 02/07/23 Range/Units 17:50 11:44 Total Bilirubin 0.2 0.2 (0.0-1.0) mg/dL Direct Bilirubin < 0.2 < 0.2 (0.0-0.5) mg/dL AST 31 25 (5-37) U/L ALT 34 28 (0-40) U/L Alkaline Phosphatase 307 H 257 H (39-117) U/L Albumin 2.9 L 2.6 L (3.5-5.0) g/dL Urine 02/07/23 Range/Units 00:01 Urine Color Yellow Urine Appearance Cloudy Urine pH 5.0 (5.0-9.0) Ur Specific [place] 1.015 (1.005-1.025) Urine Protein 300 (3+) H (Neg-Trace) mg/dL Urine Glucose (UA) Negative (Negative) mg/dL All other labs normal. Assessment and Plan (1) ESRD (end stage renal disease): Status: Acute We have tried for fistula placement for several weeks. Unfortunately has ended up in the hospital several times previously due to acalculous cholecystitis. In addition most recently he now is on dialysis. I discussed this with the hospitalist team and we may try to get this placed as soon as possible as an inpatient so the fistula will have time to mature. (2) Renal artery stenosis: Status: Acute Plan In terms of renal artery stenosis, we can better assess this now that he is on dialysis. My suspicion of this is quite low as I did not appreciate any significant stenosis on angiogram performed on 01/24/2022 for peripheral vascular disease. That being said it is nearly a year old and it may have progressed. We can easily assess and intervene on this now that he is dialysis dependent. Thank you for allowing us to assist in his care. If there are any questions or concerns please do not hesitate to contact us Procedures Date of Service Date of Service: 02/07/23
--- NOTE | 2023-02-07 13:23 | HO.PM.IMPN ---
Subjective Subjective Date of Service: 02/07/23 Interval History: This history was taken in Slovenian from the patient. No N/V No hematemesis, hematochezia, or melena. To get Permacath then start HD today Review of Systems Review of Systems: Yes all other systems are reviewed and are negative Physical Exam Vital Signs: Vital Signs: Last Vital Signs Temp 97.4 F 02/07/23 11:21 Pulse 57 02/07/23 11:21 Resp 20 02/07/23 11:21 BP 129/60 02/07/23 11:21 Pulse Ox 96 02/07/23 11:21 O2 Del Method Room Air 02/07/23 11:21 BMI result Body Mass Index 25.4 Gen: in no acute distress HEENT: sclera anicteric, moist mucus membranes Neck: supple Lungs: clear to auscultation bilaterally Heart: regular rate and rhythm, no murmurs Abd: soft, non-tender, non-distended, RUQ CCY tube in place with bilious output Ext: no edema, s/p L BKA, s/p R TMA Skin: warm/well-perfused Neuro: alert, somewhat confused, no focal Psych: appropriate affect Objective Data Active Medications Albuterol Sulfate (Albuterol Sulfate 90 Mcg 8 Gm Inhaler) 2 puff INHALE Q4H PRN PRN Reason: Wheezing Amoxicillin/Clavulanate Potassium (Amoxicillin/Potassium Clav 250 Mg Tablet) 250 mg PO Q12H [facility] Last Admin: 02/07/23 08:49 Dose: 250 mg Documented By: MACKENZIE Aspirin (Aspirin 81 Mg Tab.Chew) 81 mg PO DAILY [facility] Atorvastatin Calcium (Atorvastatin Calcium 80 Mg Tablet) 80 mg PO BEDTIME [facility] Last Admin: 02/06/23 21:53 Dose: 80 mg Documented By: KARYN Carvedilol (Carvedilol 25 Mg Tablet) 25 mg PO BID [facility]; Protocol Last Admin: 02/07/23 08:48 Dose: 25 mg Documented By: MACKENZIE Docusate Sodium (Docusate Sodium 100 Mg Capsule) 100 mg PO BEDTIME [facility] Last Admin: 02/06/23 21:53 Dose: 100 mg Documented By: KARYN Ezetimibe (Ezetimibe 10 Mg Tablet) 10 mg PO DAILY [facility] Last Admin: 02/07/23 08:48 Dose: 10 mg Documented By: MACKENZIE Gabapentin (Gabapentin 300 Mg Capsule) 300 mg PO DAILY [facility] Last Admin: 02/07/23 08:48 Dose: 300 mg Documented By: MACKENZIE Heparin Sodium (Porcine) (Heparin Sodium,Porcine 5,000 Unit/Ml Vial) 5,000 unit SUBCUT Q12H [facility] Hydralazine HCl (Hydralazine Hcl 50 Mg Tablet) 100 mg PO TID [facility]; Protocol Last Admin: 02/07/23 08:48 Dose: 100 mg Documented By: MACKENZIE Sodium Bicarbonate 150 meq/ (Dextrose) 1,000 mls @ 100 mls/hr IV .Q10H [facility] Last Infusion: 02/07/23 09:05 Dose: Infused Documented By: MACKENZIE Isosorbide Mononitrate (Isosorbide Mononitrate 60 Mg Tab.Er.24h) 60 mg PO DAILY [facility]; Protocol Last Admin: 02/07/23 08:48 Dose: 60 mg Documented By: MACKENZIE Mannitol (Mannitol 12.5 Gm/50 Ml Vial) 12.5 gm IV ONCE@0900 [facility] Stop: 02/08/23 09:01 Nifedipine (Nifedipine Er 30 Mg Tab.Er.24) 90 mg PO DAILY [facility]; Protocol Last Admin: 02/07/23 08:48 Dose: 90 mg Documented By: MACKENZIE Sertraline HCl (Sertraline Hcl 50 Mg Tablet) 50 mg PO DAILY [facility] Last Admin: 02/07/23 08:48 Dose: 50 mg Documented By: MACKENZIE Sodium Chloride (0.9 % Sodium Chloride Flush 3 Ml Syringe) 3 ml IVFLUSH QSHIFT [facility] Last Admin: 02/07/23 08:48 Dose: 3 ml Documented By: MACKENZIE Tamsulosin HCl (Tamsulosin Hcl 0.4 Mg Capsule) 0.4 mg PO BEDTIME [facility] Last Admin: 02/06/23 21:53 Dose: 0.4 mg Documented By: KARYN Labs 02/07/23 11:44 02/07/23 11:44 Labs: Laboratory Results - last 24 hr 02/06/23 02/06/23 02/06/23 16:20 17:09 17:50 MCV 97.1 MCH 30.0 MCHC 30.8 L RDW 13.1 Plt Count 345 D MPV 10.0 Immature Gran % (Auto) 0.4 Neut % (Auto) 73.9 H Lymph % (Auto) 10.8 L Tift % (Auto) 12.8 H Eos % (Auto) 1.7 Baso % (Auto) 0.4 Lymph # (Auto) 0.8 L Tift # (Auto) 1.0 Eos # (Auto) 0.1 Baso # (Auto) 0.0 Abs Immat Gran (auto) 0.03 Absolute Neuts (auto) 5.5 Absolute Nucleated RBC 0.000 Nucleated RBC % (auto) 0.0 PT INR APTT Anion Gap 14 Estim Creat Clear Calc 7.8 Estimated GFR 7 POC Glucose 85 90 Random Glucose 75 Fasting Glucose Calcium 8.8 Magnesium Total Bilirubin 0.2 Direct Bilirubin < 0.2 AST 31 ALT 34 Alkaline Phosphatase 307 H Total Protein 7.8 Albumin 2.9 L Urine Color Urine Appearance Urine pH Ur Specific [place] Urine Protein Urine Glucose (UA) Urine Ketones Urine Blood Urine Nitrite Ur Leukocyte Esterase Urine RBC Urine WBC Ur Squamous Epith Cells Urine Bacteria Hyaline Casts Stool Occult Blood Urine Opiates Screen Urine Fentanyl Screen Ur Barbiturates Screen Ur Phencyclidine Scrn Ur Amphetamines Screen U Benzodiazepines Scrn Urine Cocaine Screen U Marijuana (THC) Screen Ethyl Alcohol < 10 Blood Type Antibody Screen Crossmatch 02/06/23 02/06/23 02/06/23 19:11 20:34 20:37 MCV MCH MCHC RDW Plt Count MPV Immature Gran % (Auto) Neut % (Auto) Lymph % (Auto) Tift % (Auto) Eos % (Auto) Baso % (Auto) Lymph # (Auto) Tift # (Auto) Eos # (Auto) Baso # (Auto) Abs Immat Gran (auto) Absolute Neuts (auto) Absolute Nucleated RBC Nucleated RBC % (auto) PT INR APTT Anion Gap Estim Creat Clear Calc Estimated GFR POC Glucose 62 46 L* Random Glucose Fasting Glucose Calcium Magnesium Total Bilirubin Direct Bilirubin AST ALT Alkaline Phosphatase Total Protein Albumin Urine Color Urine Appearance Urine pH Ur Specific [place] Urine Protein Urine Glucose (UA) Urine Ketones Urine Blood Urine Nitrite Ur Leukocyte Esterase Urine RBC Urine WBC Ur Squamous Epith Cells Urine Bacteria Hyaline Casts Stool Occult Blood POSITIVE Urine Opiates Screen Urine Fentanyl Screen Ur Barbiturates Screen Ur Phencyclidine Scrn Ur Amphetamines Screen U Benzodiazepines Scrn Urine Cocaine Screen U Marijuana (THC) Screen Ethyl Alcohol Blood Type Antibody Screen Crossmatch 02/06/23 02/06/23 02/07/23 20:57 21:04 00:01 MCV MCH MCHC RDW Plt Count MPV Immature Gran % (Auto) Neut % (Auto) Lymph % (Auto) Tift % (Auto) Eos % (Auto) Baso % (Auto) Lymph # (Auto) Tift # (Auto) Eos # (Auto) Baso # (Auto) Abs Immat Gran (auto) Absolute Neuts (auto) Absolute Nucleated RBC Nucleated RBC % (auto) PT INR APTT Anion Gap Estim Creat Clear Calc Estimated GFR POC Glucose 83 Random Glucose Fasting Glucose Calcium Magnesium Total Bilirubin Direct Bilirubin AST ALT Alkaline Phosphatase Total Protein Albumin Urine Color Yellow Urine Appearance Cloudy Urine pH 5.0 Ur Specific [place] 1.015 Urine Protein 300 (3+) H Urine Glucose (UA) Negative Urine Ketones Negative Urine Blood Negative Urine Nitrite Negative Ur Leukocyte Esterase Negative Urine RBC 0-2 Urine WBC 6-10 H Ur Squamous Epith Cells 0-2 Urine Bacteria None Seen Hyaline Casts 3-5 Stool Occult Blood Urine Opiates Screen Not Detected Urine Fentanyl Screen Not Detected Ur Barbiturates Screen Not Detected Ur Phencyclidine Scrn Not Detected Ur Amphetamines Screen Not Detected U Benzodiazepines Scrn Not Detected Urine Cocaine Screen Not Detected U Marijuana (THC) Screen Not Detected Ethyl Alcohol Blood Type O Positive Antibody Screen NEGATIVE Crossmatch See Detail 02/07/23 02/07/23 02/07/23 00:58 03:36 08:03 MCV MCH MCHC RDW Plt Count MPV Immature Gran % (Auto) Neut % (Auto) Lymph % (Auto) Tift % (Auto) Eos % (Auto) Baso % (Auto) Lymph # (Auto) Tift # (Auto) Eos # (Auto) Baso # (Auto) Abs Immat Gran (auto) Absolute Neuts (auto) Absolute Nucleated RBC Nucleated RBC % (auto) PT INR APTT Anion Gap Estim Creat Clear Calc Estimated GFR POC Glucose 70 87 98 Random Glucose Fasting Glucose Calcium Magnesium Total Bilirubin Direct Bilirubin AST ALT Alkaline Phosphatase Total Protein Albumin Urine Color Urine Appearance Urine pH Ur Specific [place] Urine Protein Urine Glucose (UA) Urine Ketones Urine Blood Urine Nitrite Ur Leukocyte Esterase Urine RBC Urine WBC Ur Squamous Epith Cells Urine Bacteria Hyaline Casts Stool Occult Blood Urine Opiates Screen Urine Fentanyl Screen Ur Barbiturates Screen Ur Phencyclidine Scrn Ur Amphetamines Screen U Benzodiazepines Scrn Urine Cocaine Screen U Marijuana (THC) Screen Ethyl Alcohol Blood Type Antibody Screen Crossmatch 02/07/23 02/07/23 02/07/23 11:23 11:44 11:44 MCV 96.0 MCH 30.4 MCHC 31.6 RDW 13.5 Plt Count 301 MPV 10.2 Immature Gran % (Auto) Neut % (Auto) Lymph % (Auto) Tift % (Auto) Eos % (Auto) Baso % (Auto) Lymph # (Auto) Tift # (Auto) Eos # (Auto) Baso # (Auto) Abs Immat Gran (auto) Absolute Neuts (auto) Absolute Nucleated RBC 0.000 Nucleated RBC % (auto) 0.0 PT 11.9 Cancelled INR 1.0 APTT Anion Gap Estim Creat Clear Calc Estimated GFR POC Glucose 84 Random Glucose Fasting Glucose Calcium Magnesium Total Bilirubin Direct Bilirubin AST ALT Alkaline Phosphatase Total Protein Albumin Urine Color Urine Appearance Urine pH Ur Specific [place] Urine Protein Urine Glucose (UA) Urine Ketones Urine Blood Urine Nitrite Ur Leukocyte Esterase Urine RBC Urine WBC Ur Squamous Epith Cells Urine Bacteria Hyaline Casts Stool Occult Blood Urine Opiates Screen Urine Fentanyl Screen Ur Barbiturates Screen Ur Phencyclidine Scrn Ur Amphetamines Screen U Benzodiazepines Scrn Urine Cocaine Screen U Marijuana (THC) Screen Ethyl Alcohol Blood Type Antibody Screen Crossmatch 02/07/23 02/07/23 02/07/23 11:44 11:44 11:44 MCV MCH MCHC RDW Plt Count MPV Immature Gran % (Auto) Neut % (Auto) Lymph % (Auto) Tift % (Auto) Eos % (Auto) Baso % (Auto) Lymph # (Auto) Tift # (Auto) Eos # (Auto) Baso # (Auto) Abs Immat Gran (auto) Absolute Neuts (auto) Absolute Nucleated RBC Nucleated RBC % (auto) PT INR Cancelled APTT 36.6 H D Anion Gap Cancelled 14 Estim Creat Clear Calc Cancelled 7.8 Estimated GFR Cancelled POC Glucose Random Glucose Fasting Glucose Calcium Magnesium Total Bilirubin Direct Bilirubin AST ALT Alkaline Phosphatase Total Protein Albumin Urine Color Urine Appearance Urine pH Ur Specific [place] Urine Protein Urine Glucose (UA) Urine Ketones Urine Blood Urine Nitrite Ur Leukocyte Esterase Urine RBC Urine WBC Ur Squamous Epith Cells Urine Bacteria Hyaline Casts Stool Occult Blood Urine Opiates Screen Urine Fentanyl Screen Ur Barbiturates Screen Ur Phencyclidine Scrn Ur Amphetamines Screen U Benzodiazepines Scrn Urine Cocaine Screen U Marijuana (THC) Screen Ethyl Alcohol Blood Type Antibody Screen Crossmatch 02/07/23 02/07/23 11:44 11:44 MCV MCH MCHC RDW Plt Count MPV Immature Gran % (Auto) Neut % (Auto) Lymph % (Auto) Tift % (Auto) Eos % (Auto) Baso % (Auto) Lymph # (Auto) Tift # (Auto) Eos # (Auto) Baso # (Auto) Abs Immat Gran (auto) Absolute Neuts (auto) Absolute Nucleated RBC Nucleated RBC % (auto) PT INR APTT Anion Gap Estim Creat Clear Calc Estimated GFR 7 POC Glucose Random Glucose Cancelled Fasting Glucose 87 Calcium Cancelled 8.7 Magnesium 2.3 Total Bilirubin 0.2 Direct Bilirubin < 0.2 AST 25 ALT 28 Alkaline Phosphatase 257 H Total Protein 7.1 Albumin 2.6 L Urine Color Urine Appearance Urine pH Ur Specific [place] Urine Protein Urine Glucose (UA) Urine Ketones Urine Blood Urine Nitrite Ur Leukocyte Esterase Urine RBC Urine WBC Ur Squamous Epith Cells Urine Bacteria Hyaline Casts Stool Occult Blood Urine Opiates Screen Urine Fentanyl Screen Ur Barbiturates Screen Ur Phencyclidine Scrn Ur Amphetamines Screen U Benzodiazepines Scrn Urine Cocaine Screen U Marijuana (THC) Screen Ethyl Alcohol Blood Type Antibody Screen Crossmatch Assessment and Plan (1) ESRD (end stage renal disease): Status: Acute Plan d2 67yo M with DM2, CKD3, hx L BKA + R TMA, HLD, HFpEF, LORENZO, LIVE, HLD, PAD, recent acalculous cholecystitis with cholecystotomy tube presenting with AMS, admitted for KEYA -> ESRD acute metabolic encephalopathy due to uremia due to KEYA/CKD3 with hyperK + metabolic acidosis, now ESRD - Nephro consulted, Permacath placement today then HD ThFSa, Vascular consulted and will do fistula Saturday - continue bicarbonate - recheck BMP in AM acute/chronic anemia, likely anemia of chronic disease but also FOBT+ - transfused 1u pRBCs in ED, will give another unit with HD today - GI consult, IV PPI recent acalculous cholecystitis with CCY tube - continue CCY tube, total 6 wk; continue amoxicillin-clavulanate as per last admission here DM2 with hypoglycemia - A1c 5.7, now off medications chronic HFpEF - hold diuretics LORENZO - outpt f/u with CTA/MRA per Nephrology. Continue ASA/statin HTN - continue Imdur, nifedipine, hydralazine, carvedilol BPH - tamsulosin mood disorder - sertraline VTE ppx - hold heparin given anemia + FOBT; place SCD to RLE dispo - TBD In my clinical judgment, the patient requires continued inpatient hospitalization for the following reasons: uremia, HD start, anemia requiring transfusion Total time managing care of this patient today: 50 minutes. Quality Stroke Does the patient have a stroke diagnosis?: No VTE Prior VTE?: No VTE Risk Level:: Medical - moderate - high VTE Device Contraindication: N/A - Device Ordered VTE Drug Contraindication: N/A - Med Ordered
[2023-02-07] MEDS: Pantoprazole Sodium 40 MG/10 ML VIAL IVPUSH ×2 (14:31→18:07)
[2023-02-07] MEDS: Atorvastatin Calcium 80 MG TABLET PO (20:33)
[2023-02-07] MEDS: Docusate Sodium 100 MG CAPSULE PO (20:33)
[2023-02-07] MEDS: Tamsulosin HCL 0.4 MG CAPSULE PO (20:33)
[2023-02-07 20:59] LABS: Glucose, Whole Blood 142 mg/dL (60-115)
[2023-02-07] MEDS: Acetaminophen 325 MG TABLET 650 MG PO (22:39)
[2023-02-08] MEDS: Sodium Bicarbonate 8.4% 150 MEQ in Dextrose 5 % 850 ML 100 MEQ IV (00:31)
[2023-02-08] MEDS: 0.9 % Sodium Chloride Flush 3 ML SYRINGE IVFLUSH ×2 (00:31→17:30)
[2023-02-08 04:00] VITALS: BP 130/58; PULSE 63; RESP 18; TEMP 36.7; O2SAT 95
[2023-02-08] MEDS: Pantoprazole Sodium 40 MG/10 ML VIAL IVPUSH ×2 (04:01→17:38)
[2023-02-08] MEDS: Acetaminophen 325 MG TABLET 650 MG PO (05:34)
[2023-02-08 07:13] LABS: Hematocrit 22.9 % (42.0-52.0); Hemoglobin 7.6 g/dl (14.0-18.0); Mean Corpuscular HGB Conc 33.2 g/dl (31.0-36.0); Mean Corpuscular Volume 90.5 fL (80.0-98.0); Mean Platelet Volume 10.7 fL (9.4-12.4); Platelet Count 292 X10*3/uL (160-400); Red Blood Count 2.53 X10*6/uL (4.60-5.80); Red Cell Distribution Width 14.1 % (11.0-16.0); White Blood Count 7.2 X10*3/uL (4.8-10.8)
[2023-02-08 07:33] LABS: Anion Gap 15 (12-20); Blood Urea Nitrogen 63 mg/dL (9-16); Calcium 8.1 mg/dL (8.4-10.2); Carbon Dioxide 22 mmol/L (22-29); Chloride 105 mmol/L (96-108); Creatinine Clr Calc Pharmacy 10.9; Estimated Glomerular Filt Rate 10; Glucose Random 185 mg/dL (60-115); Potassium 4.8 mmol/L (3.3-5.1); Sodium 137 mmol/L (135-145)
[2023-02-08 07:55] VITALS: BP 150/68; PULSE 65; RESP 20; TEMP 36.6; O2SAT 96
[2023-02-08 08:07] LABS: Glucose, Whole Blood 272 mg/dL (60-115)
[2023-02-08] MEDS: Ezetimibe 10 MG TABLET PO (08:30)
[2023-02-08] MEDS: Aspirin 81 MG TAB.CHEW PO (08:30)
[2023-02-08] MEDS: NIFEdipine ER 30 MG TAB.ER.24 90 MG PO (08:30)
[2023-02-08] MEDS: Gabapentin 300 MG CAPSULE PO (08:31)
[2023-02-08] MEDS: Amoxicillin/Potassium Clav 250 MG TABLET PO ×2 (08:32→21:33)
[2023-02-08] MEDS: Isosorbide Mononitrate 60 MG TAB.ER.24H PO (08:32)
[2023-02-08] MEDS: hydrALAZINE HCl 50 MG TABLET 100 MG PO ×3 (08:32→21:34)
[2023-02-08] MEDS: Sertraline HCL 50 MG TABLET PO (08:32)
[2023-02-08] MEDS: carvediloL 25 MG TABLET PO ×2 (08:32→21:33)
--- NOTE | 2023-02-08 09:30 | P.PNVS_ITS ---
Subjective Subjective Date of Service: 02/08/23 Patient reports: no new complaints and feels better Interval history: Very pleasant 67-year-old gentleman unfortunately is now dialysis dependent. He has had a catheter placement. He appears to be doing significantly better. Now speaking with no difficulty no shortness of breath. Feels much more comfortable. We had made several attempts to try to get this permanent access in place but unfortunately ended up in the hospital several times inclusive of a bout of cholecystitis as well. Now for vascular follow-up. Physical Exam Vital Signs: Vital Signs: Last Vital Signs Temp 97.9 F 02/08/23 07:55 Pulse 65 02/08/23 07:55 Resp 20 02/08/23 07:55 BP 150/68 H 02/08/23 07:55 Pulse Ox 96 02/08/23 07:55 O2 Del Method Room Air 02/08/23 07:55 BMI result Body Mass Index 25.4 Const: General: cooperative, healthy appearing and no acute distress Or ientation/consciousness: oriented to person, oriented to place and oriented to time HEENT: Head: Yes normal to inspection Neck: Carotids: no bruits Chest: Chest palpation & inspection: normal inspection of the chest Resp: Effort & Inspection: normal respiratory effort and able to speak in complete sentences Auscultation: clear to auscultation bilaterally Cardio: Other: Left arm palpable brachial radial ulnar pulses Rate: regular rate Heart sounds: S1 normal heart sound present and S2 normal heart sound present GI: Inspection: Yes normal to inspection Skin: General skin exam: no rashes or lesions noted Wounds: no wounds Neuro: General: oriented to person, oriented to place, oriented to time and CN's II-XI intact bilaterally Extrem: General: Yes normal to inspection, Yes full ROM and Yes no clubbing, cyanosis or edema Psych: Appearance: grossly normal and well kempt Speech and movement: Normal speech and movement present Affect: normal affect Progress Note: A&P Assessment and plan (1) ESRD (end stage renal disease): Status: Acute Assessment and Plan: In short patient is now dialysis dependent. He will require left upper extremity fistula creation. Risks benefits complications were discussed in detail with the patient. I also discuss this with the dialysis team and he will be scheduled for Saturday afternoon dialysis session. Thank you for allowing us to assist in his care. If there are any questions or concerns please do not hesitate to contact us. Time Spent With Patient Time: Total time managing care of this patient today ____ minutes. Procedures Date of Service Date of Service: 02/08/23 Quality Stroke Does the patient have a stroke diagnosis?: No VTE Prior VTE?: No VTE Risk Level:: Medical - moderate - high VTE Device Contraindication: N/A - Device Ordered VTE Drug Contraindication: N/A - Med Ordered
[2023-02-08 12:42] VITALS: BP 151/78; PULSE 64; RESP 18; TEMP 36; O2SAT 93
[2023-02-08 12:51] LABS: Glucose, Whole Blood 128 mg/dL (60-115)
--- NOTE | 2023-02-08 14:09 | P.PNNP_ITS ---
Subjective Subjective Date of Service: 02/08/23 Interval history: No issues HD today by [facility] Anemia addressed Physical Exam 2 Vital Signs: Vital Signs: Last Vital Signs Temp 96.8 F 02/08/23 12:42 Pulse 64 02/08/23 12:42 Resp 18 02/08/23 12:42 BP 151/78 H 02/08/23 12:42 Pulse Ox 93 02/08/23 12:42 O2 Del Method Room Air 02/08/23 12:42 BMI result Body Mass Index 25.4 Const: General: cooperative, no acute distress and alert Resp: Auscultation: clear to auscultation bilaterally Cardio: Rate: regular rate Rhythm: regular rhythm GI: Palpation (GI): Soft to palpation and nontender Extrem: General: No edema Objective Data Labs 02/08/23 06:39 02/08/23 06:38 Labs: Laboratory Results - last 24 hr 02/06/23 02/07/23 02/08/23 20:57 20:49 06:38 WBC RBC Hgb Hct MCV MCH MCHC RDW Plt Count MPV Absolute Nucleated RBC Nucleated RBC % (auto) Sodium 137 Potassium 4.8 Chloride 105 Carbon Dioxide 22 Anion Gap 15 BUN 63 H Creatinine 5.92 H* Estim Creat Clear Calc 10.9 Estimated GFR 10 POC Glucose 142 H Random Glucose 185 H Calcium 8.1 L D Blood Type O Positive Antibody Screen NEGATIVE Crossmatch See Detail 02/08/23 02/08/23 02/08/23 06:39 07:52 12:47 WBC 7.2 RBC 2.53 L Hgb 7.6 L Hct 22.9 L MCV 90.5 D MCH 30.0 MCHC 33.2 RDW 14.1 Plt Count 292 MPV 10.7 Absolute Nucleated RBC 0.000 Nucleated RBC % (auto) 0.0 Sodium Potassium Chloride Carbon Dioxide Anion Gap BUN Creatinine Estim Creat Clear Calc Estimated GFR POC Glucose 272 H 128 H Random Glucose Calcium Blood Type Antibody Screen Crossmatch Microbiology Microbiology Results: Microbiology 02/07/23 Unknown Urine Catheterized - Harris Catheter Urine Culture - Final No growth. Procedures Date of Service Date of Service: 02/08/23 Assessment & Plan Assessment and plan (1) KEYA (acute kidney injury): Status: Inactive (2) (HFpEF) heart failure with preserved ejection fraction: Status: Acute (3) Renal artery stenosis: Status: Acute (4) ESRD (end stage renal disease): Status: Acute Plan 1. Advanced CKD with history of Dialysis dependent KEYA Now likely ESRD ESRD due to progressive nephron loss from recurrent AKIs as well as backdrop of DM/HTN/vascular disease. Possible R RA stenosis too. proteinuria 1.8 g REC Dialysis today and again tomorrow Fistula creation Saturday Venofer 200mg IV today EPO 20,000u Today. Needs outpatient Dialysis chair scheduled. Time Spent With Patient Time: Total time managing care of this patient today ____ minutes. Progress Note: Quality Stroke Does the patient have a stroke diagnosis?: No
--- NOTE | 2023-02-08 14:37 | HO.PM.IMPN ---
Subjective Subjective Date of Service: 02/08/23 Interval History: No acute issues overnight. Tolerant of dialysis today Review of Systems Denies chest pain Denies shortness of breath Denies nausea vomiting diarrhea Denies fever chills Physical Exam Vital Signs: Vital Signs: Last Vital Signs Temp 96.8 F 02/08/23 12:42 Pulse 64 02/08/23 12:42 Resp 18 02/08/23 12:42 BP 151/78 H 02/08/23 12:42 Pulse Ox 93 02/08/23 12:42 O2 Del Method Room Air 02/08/23 12:42 BMI result Body Mass Index 25.4 Const: Other: Awake alert no acute distress Resp: Other: Clear to auscultation bilaterally no rales rhonchi or wheezes Cardio: Other: No S4; positive S1-S2; no S3 murmurs rubs or gallops GI: Other: Soft nontender nondistended normoactive bowel sounds Extrem: Other: No edema bilaterally Objective Data Active Medications Acetaminophen (Acetaminophen 325 Mg Tablet) 650 mg PO Q6H PRN PRN Reason: mild pain Last Admin: 02/08/23 05:34 Dose: 650 mg Documented By: SANG Albuterol Sulfate (Albuterol Sulfate 90 Mcg 8 Gm Inhaler) 2 puff INHALE Q4H PRN PRN Reason: Wheezing Amoxicillin/Clavulanate Potassium (Amoxicillin/Potassium Clav 250 Mg Tablet) 250 mg PO Q12H [facility] [place] Last Admin: 02/08/23 08:32 Dose: 250 mg Documented By: ABDULKADIR Aspirin (Aspirin 81 Mg Tab.Chew) 81 mg PO DAILY [facility] [place] Last Admin: 02/08/23 08:30 Dose: 81 mg Documented By: ABDULKADIR Atorvastatin Calcium (Atorvastatin Calcium 80 Mg Tablet) 80 mg PO BEDTIME [facility] [place] Last Admin: 02/07/23 20:33 Dose: 80 mg Documented By: MACKENZIE Carvedilol (Carvedilol 25 Mg Tablet) 25 mg PO BID [facility] [place]; Protocol Last Admin: 02/08/23 08:32 Dose: 25 mg Documented By: ABDULKADIR Dextrose (Dextrose 50 % 25 Gm/50 Ml Syringe) 25 gm IVPUSH Q15M PRN; Protocol PRN Reason: per Hypoglycemia Standing Ord. Docusate Sodium (Docusate Sodium 100 Mg Capsule) 100 mg PO BEDTIME [facility] [place] Last Admin: 02/07/23 20:33 Dose: 100 mg Documented By: MACKENZIE Ezetimibe (Ezetimibe 10 Mg Tablet) 10 mg PO DAILY [facility] [place] Last Admin: 02/08/23 08:30 Dose: 10 mg Documented By: ABDULKADIR Gabapentin (Gabapentin 300 Mg Capsule) 300 mg PO DAILY [facility] [place] Last Admin: 02/08/23 08:31 Dose: 300 mg Documented By: ABDULKADIR Glucose (Glucose Gel 15 Gm Gel..Gram.) 15 gm PO Q15M PRN; Protocol PRN Reason: per Hypoglycemia Standing Ord. Hydralazine HCl (Hydralazine Hcl 50 Mg Tablet) 100 mg PO TID [facility] [place]; Protocol Last Admin: 02/08/23 08:32 Dose: 100 mg Documented By: ABDULKADIR Iron Sucrose 200 mg/ Sodium (Chloride) 110 mls @ 440 mls/hr IV ONCE ONE Stop: 02/08/23 16:14 Insulin Human Lispro (Insulin Lispro 100 Unit/Ml 3 Ml Vial) 0 unit SUBCUT QIDACHS [facility] [place]; Protocol Last Admin: 02/08/23 12:52 Dose: Not Given Documented By: ABDULKADIR Non-Admin Reason: No Insulin Coverage Isosorbide Mononitrate (Isosorbide Mononitrate 60 Mg Tab.Er.24h) 60 mg PO DAILY [facility] [place]; Protocol Last Admin: 02/08/23 08:32 Dose: 60 mg Documented By: ABDULKADIR Nifedipine (Nifedipine Er 30 Mg Tab.Er.24) 90 mg PO DAILY [facility] [place]; Protocol Last Admin: 02/08/23 08:30 Dose: 90 mg Documented By: ABDULKADIR Pantoprazole Sodium (Pantoprazole Sodium 40 Mg/10 Ml Vial) 40 mg IVPUSH BID@0630,1630 [facility] [place] Last Admin: 02/08/23 04:01 Dose: 40 mg Documented By: ANTOIC Sertraline HCl (Sertraline Hcl 50 Mg Tablet) 50 mg PO DAILY [facility] [place] Last Admin: 02/08/23 08:32 Dose: 50 mg Documented By: ABDULKADIR Sodium Chloride (0.9 % Sodium Chloride Flush 3 Ml Syringe) 3 ml IVFLUSH QSHIFT [facility] [place] Last Admin: 02/08/23 08:32 Dose: Not Given Documented By: ABDULKADIR Non-Admin Reason: IV Running Tamsulosin HCl (Tamsulosin Hcl 0.4 Mg Capsule) 0.4 mg PO BEDTIME [facility] Last Admin: 02/07/23 20:33 Dose: 0.4 mg Documented By: MACKENZIE Labs 02/08/23 06:39 02/08/23 06:38 Labs: Laboratory Results - last 24 hr 02/06/23 02/07/23 02/08/23 20:57 20:49 06:38 MCV MCH MCHC RDW Plt Count MPV Absolute Nucleated RBC Nucleated RBC % (auto) Anion Gap 15 Estim Creat Clear Calc 10.9 Estimated GFR 10 POC Glucose 142 H Random Glucose 185 H Calcium 8.1 L D Blood Type O Positive Antibody Screen NEGATIVE Crossmatch See Detail 02/08/23 02/08/23 02/08/23 06:39 07:52 12:47 MCV 90.5 D MCH 30.0 MCHC 33.2 RDW 14.1 Plt Count 292 MPV 10.7 Absolute Nucleated RBC 0.000 Nucleated RBC % (auto) 0.0 Anion Gap Estim Creat Clear Calc Estimated GFR POC Glucose 272 H 128 H Random Glucose Calcium Blood Type Antibody Screen Crossmatch Microbiology Microbiology Results: Microbiology 02/07/23 Unknown Urine Culture - Final Urine Catheterized - Harris Catheter No growth. Assessment and Plan (1) ESRD (end stage renal disease): Status: Acute (2) Anemia: Status: Acute Plan 67yo M with DM2, CKD3, hx L BKA + R TMA, HLD, HFpEF, LORENZO, LIVE, HLD, PAD, recent acalculous cholecystitis with cholecystotomy tube presenting with AMS, admitted for KEYA -> ESRD 1.Acute metabolic encephalopathy due to uremia/KEYA-CKD3 -resolved with hemodialysis -bicarb drip DC -further dialysis as per Renal -fistula placement by vascular 02/11/23 2.Acute/chronic anemia, -status post 2 units PRBC -follow CBC in a.m.; treat as indicated 3.Acalculous cholecystitis with CCY tube - continue CCY tube, total 6 wk; -Augmentin as ordered 4.DM2 -acceptable control off therapies -TID AC POCs..lispro correctional scale 5.HTN -acceptable control on current therapies -Imdur, nifedipine, hydralazine, carvedilol Boots Full Code Requires ongoing hospitalization for continued dialysis and creation of a fistula for chronic hemodialysis Quality Stroke Does the patient have a stroke diagnosis?: No VTE Prior VTE?: No VTE Risk Level:: Medical - moderate - high VTE Device Contraindication: N/A - Device Ordered VTE Drug Contraindication: N/A - Med Ordered
[2023-02-08 15:58] VITALS: BP 112/69; PULSE 67; RESP 18; TEMP 36.2; O2SAT 97
--- NOTE | 2023-02-08 16:17 | MHC.CM.PN ---
EMR reviewed and per MD rounds pt is not medically cleared for D/C due to continued dialysis and creation of a fistula for chronic hemodialysis, and cardio consult pending, CM will continue to follow.
[2023-02-08 16:42] LABS: Glucose, Whole Blood 204 mg/dL (60-115)
[2023-02-08] MEDS: Insulin Lispro 100 UNIT/ML 3 ML VIAL SUBCUT (17:29)
[2023-02-08] MEDS: Iron Sucrose Complex 200 MG in 0.9 % Sodium Chloride 100 ML 440 MG IV (17:31)
[2023-02-08 20:00] VITALS: BP 155/68; PULSE 66; RESP 20; TEMP 36.4; O2SAT 96
[2023-02-08] MEDS: Tamsulosin HCL 0.4 MG CAPSULE PO (21:34)
[2023-02-08] MEDS: Atorvastatin Calcium 80 MG TABLET PO (21:34)
[2023-02-08] MEDS: Docusate Sodium 100 MG CAPSULE PO (21:34)
[2023-02-08 21:42] LABS: Glucose, Whole Blood 78 mg/dL (60-115)
[2023-02-08 23:40] VITALS: BP 147/69; PULSE 70; RESP 18; TEMP 36.7; O2SAT 95
[2023-02-09 03:16] VITALS: BP 150/68; PULSE 73; RESP 18; TEMP 36.6; O2SAT 94
[2023-02-09] MEDS: Pantoprazole Sodium 40 MG/10 ML VIAL IVPUSH ×2 (05:51→17:23)
[2023-02-09 06:55] LABS: MANUAL DIFF FLAG NO
[2023-02-09 07:03] LABS: Basophils Absolute Auto 0.1 X10*3/uL (0.0-0.2); Basophils Percent Auto 0.6 % (0-2); Eosinophils Absolute Auto 0.1 X10*3/uL (0.0-0.4); Eosinophils Percent Auto 1.4 % (0-4); Hemoglobin 7.5 g/dl (14.0-18.0); Imm Gran Abs Auto 0.04 X10*3/uL (0.00-0.03); Imm Gran Pct Auto 0.5 % (0.0-0.4); Lymphocytes Absolute Auto 0.8 X10*3/uL (1.2-4.9); Lymphocytes Percent Auto 9.3 % (20-40); Mean Corpuscular HGB Conc 32.6 g/dl (31.0-36.0); Mean Corpuscular Hemoglobin 29.5 pg (27.0-33.0); Mean Corpuscular Volume 90.6 fL (80.0-98.0); Mean Platelet Volume 10.6 fL (9.4-12.4); Monocytes Absolute Auto 1.4 X10*3/uL (0.1-1.2); Monocytes Percent Auto 17.1 % (2-11); Neutrophils Absolute Auto 5.7 x10*3/uL (2.0-8.3); Neutrophils Percent Auto 71.1 % (45-73); Platelet Count 272 X10*3/uL (160-400); Red Blood Count 2.54 X10*6/uL (4.60-5.80); Red Cell Distribution Width 13.6 % (11.0-16.0); White Blood Count 8.1 X10*3/uL (4.8-10.8)
[2023-02-09 07:37] LABS: Alanine Aminotransferase 23 U/L (0-40); Albumin Level 2.8 g/dL (3.5-5.0); Alkaline Phosphatase 220 U/L (39-117); Anion Gap 13 (12-20); Aspartate Amino Transferase 29 U/L (5-37); Bilirubin Total 0.3 mg/dL (0.0-1.0); Blood Urea Nitrogen 43 mg/dL (9-16); Carbon Dioxide 22 mmol/L (22-29); Chloride 105 mmol/L (96-108); Creatinine Clr Calc Pharmacy 12.9; Estimated Glomerular Filt Rate 12; Glucose Fasting 155 mg/dL (60-99); Potassium 4.6 mmol/L (3.3-5.1); Sodium 135 mmol/L (135-145); Total Protein 7.4 g/dL (6.5-8.0)
[2023-02-09 07:42] LABS: Glucose, Whole Blood 132 mg/dL (60-115)
[2023-02-09 07:50] VITALS: BP 136/62; PULSE 72; RESP 16; TEMP 36.4; O2SAT 96
[2023-02-09] MEDS: Isosorbide Mononitrate 60 MG TAB.ER.24H PO (08:48)
[2023-02-09] MEDS: Ezetimibe 10 MG TABLET PO (08:49)
[2023-02-09] MEDS: carvediloL 25 MG TABLET PO ×2 (08:49→21:33)
[2023-02-09] MEDS: Gabapentin 300 MG CAPSULE PO (08:49)
[2023-02-09] MEDS: NIFEdipine ER 30 MG TAB.ER.24 90 MG PO (08:49)
[2023-02-09] MEDS: Sertraline HCL 50 MG TABLET PO (08:49)
[2023-02-09] MEDS: Aspirin 81 MG TAB.CHEW PO (08:49)
[2023-02-09] MEDS: hydrALAZINE HCl 50 MG TABLET 100 MG PO ×3 (08:49→21:33)
[2023-02-09] MEDS: Amoxicillin/Potassium Clav 250 MG TABLET PO ×2 (08:50→21:32)
[2023-02-09] MEDS: 0.9 % Sodium Chloride Flush 3 ML SYRINGE IVFLUSH ×3 (08:50→21:44)
--- NOTE | 2023-02-09 10:01 | HO.ANESPROP2 ---
[facility] Active Problems Active Problems: All Active Problems (Updated 02/09/23 @ 00:03 by Jaylon Stoner) ESRD (end stage renal disease) (Acute) Anemia (Acute) Acute hyperkalemia (Acute) Hypoglycemia (Acute) Acute kidney injury superimposed on CKD (Acute) CKD (chronic kidney disease) stage 3, GFR 30-59 ml/min (Acute) Cocaine use disorder (Acute) Acalculous cholecystitis (Acute) Acute kidney injury superimposed on chronic kidney disease (Acute) Erectile dysfunction associated with type 2 diabetes mellitus (Acute) Benign prostatic hyperplasia (Acute) (HFpEF) heart failure with preserved ejection fraction (Acute) Osteomyelitis (Acute) CKD stage 3 due to type 2 diabetes mellitus (Acute) LIVE (iron deficiency anemia) (Acute) Hospital discharge follow-up (Acute) Status post below-knee amputation of left lower extremity (Acute) Elevated erythrocyte sedimentation rate (Acute) Toxic metabolic encephalopathy (Acute) Pneumonia (Acute) Acute hypoxemic respiratory failure (Acute) Nonhealing ulcer of left lower extremity (Acute) Diabetic foot infection (Acute) Cellulitis (Acute) Past Medical History Medical History (Updated 02/11/23 @ 16:51 by Christiano Gonzalez DO) Hypertension Type 2 diabetes mellitus ESRD (end stage renal disease) CKD (chronic kidney disease) stage 3, GFR 30-59 ml/min Renal artery stenosis Anemia Uncontrolled hypertension Erectile dysfunction (HFpEF) heart failure with preserved ejection fraction Osteomyelitis CKD stage 3 due to type 2 diabetes mellitus LIVE (iron deficiency anemia) Hyperlipidemia associated with type 2 diabetes mellitus Kidney disease High cholesterol HTN (hypertension) Diabetes PAD (peripheral artery disease) Family History Family History Other No family history of coronary artery disease Family history of problems with anesthesia: No Surgical History Surgical History Status post transmetatarsal amputation of left foot Hx of amputation History of amputation of right forefoot H/O shoulder surgery History of Problems with Anesthesia: No Social History Social History Household Members: None Housing: Apartment Do you presently have visiting nurse or other home services: Yes (KITCH[employer] AIDE ONLY) Alcohol intake: current Alcohol intake frequency: a few times a month Alcohol type: beer Comment: previously medicated with IV morphine Patient Tobacco Use Status: Never used Tobacco Tobacco use type: Cigarette Second Hand Smoke Exposure: No Use of substances other than those prescribed or required for medical reasons: Yes Substance Use Type: Crack/Cocaine Currently Displaying Signs/Symptoms of Drug Intoxication Withdrawal: No Have you been hit, kicked, punched, or otherwise hurt by someone within the past year? If so, by whom?: No Do you feel safe in your current relationship?: No Current Relationship Is there a partner from a previous relationship who is making you feel unsafe now?: No Are you made to feel afraid or neglected: No Are you DNR?: No Advance Directives: Yes Advance Directives Information Provided: No Advance Directives on File: Yes Advance Directives Date on File: 02/02/22 Do you have thoughts of harming others: None Do you have a plan to hurt others: No Plan Recently lost weight without trying: No Nutrition Risks: No Nutritional Risk Poor oral hygiene: No service: No Current occupational status: retired Meds Allergies Allergy/AdvReac Type Severity Reaction Status Date / Time metformin AdvReac Unknown Verified 01/24/23 14:42 Active Medications: Current Medications Acetaminophen (Acetaminophen 325 Mg Tablet) 650 mg PO Q6H PRN PRN Reason: mild pain Last Admin: 02/08/23 05:34 Dose: 650 mg Albuterol Sulfate (Albuterol Sulfate 90 Mcg 8 Gm Inhaler) 2 puff INHALE Q4H PRN PRN Reason: Wheezing Amoxicillin/Clavulanate Potassium (Amoxicillin/Potassium Clav 250 Mg Tablet) 250 mg PO Q12H [facility] Last Admin: 02/09/23 08:50 Dose: 250 mg Aspirin (Aspirin 81 Mg Tab.Chew) 81 mg PO DAILY [facility] Last Admin: 02/09/23 08:49 Dose: 81 mg Atorvastatin Calcium (Atorvastatin Calcium 80 Mg Tablet) 80 mg PO BEDTIME [facility] Last Admin: 02/08/23 21:34 Dose: 80 mg Carvedilol (Carvedilol 25 Mg Tablet) 25 mg PO BID [facility]; Protocol Last Admin: 02/09/23 08:49 Dose: 25 mg Dextrose (Dextrose 50 % 25 Gm/50 Ml Syringe) 25 gm IVPUSH Q15M PRN; Protocol PRN Reason: per Hypoglycemia Standing Ord. Docusate Sodium (Docusate Sodium 100 Mg Capsule) 100 mg PO BEDTIME [facility] Last Admin: 02/08/23 21:34 Dose: 100 mg Ezetimibe (Ezetimibe 10 Mg Tablet) 10 mg PO DAILY [facility] Last Admin: 02/09/23 08:49 Dose: 10 mg Gabapentin (Gabapentin 300 Mg Capsule) 300 mg PO DAILY [facility] Last Admin: 02/09/23 08:49 Dose: 300 mg Glucose (Glucose Gel 15 Gm Gel..Gram.) 15 gm PO Q15M PRN; Protocol PRN Reason: per Hypoglycemia Standing Ord. Hydralazine HCl (Hydralazine Hcl 50 Mg Tablet) 100 mg PO TID [facility]; Protocol Last Admin: 02/09/23 08:49 Dose: 100 mg Insulin Human Lispro (Insulin Lispro 100 Unit/Ml 3 Ml Vial) 0 unit SUBCUT QIDACHS [facility]; Protocol Last Admin: 02/09/23 08:07 Dose: Not Given Isosorbide Mononitrate (Isosorbide Mononitrate 60 Mg Tab.Er.24h) 60 mg PO DAILY [facility]; Protocol Last Admin: 02/09/23 08:48 Dose: 60 mg Nifedipine (Nifedipine Er 30 Mg Tab.Er.24) 90 mg PO DAILY [facility]; Protocol Last Admin: 02/09/23 08:49 Dose: 90 mg Pantoprazole Sodium (Pantoprazole Sodium 40 Mg/10 Ml Vial) 40 mg IVPUSH BID@0630,1630 [facility] Last Admin: 02/09/23 05:51 Dose: 40 mg Sertraline HCl (Sertraline Hcl 50 Mg Tablet) 50 mg PO DAILY [facility] Last Admin: 02/09/23 08:49 Dose: 50 mg Sodium Chloride (0.9 % Sodium Chloride Flush 3 Ml Syringe) 3 ml IVFLUSH QSHIFT [facility] Last Admin: 02/09/23 08:50 Dose: 3 ml Tamsulosin HCl (Tamsulosin Hcl 0.4 Mg Capsule) 0.4 mg PO BEDTIME [facility] Last Admin: 02/08/23 21:34 Dose: 0.4 mg Home Medications Medication Instructions Recorded Confirmed Last Taken Type sertraline 50 mg tablet 50 mg PO DAILY 04/27/21 02/06/23 01/21/23 History albuterol sulfate 90 mcg/actuation 2 puff inhalation Q4H PRN Wheezing 01/13/23 02/06/23 Unknown History aerosol inhaler (Ventolin HFA) aspirin 81 mg chewable tablet 1 tab PO DAILY 01/13/23 02/06/23 01/21/23 History atorvastatin 80 mg tablet 80 mg PO BEDTIME 01/13/23 02/06/23 01/20/23 History docusate sodium 100 mg capsule 100 mg PO BEDTIME 01/13/23 02/06/23 01/20/23 History ezetimibe 10 mg tablet 10 mg PO DAILY 01/13/23 02/06/23 01/21/23 History flash glucose scanning reader 01/13/23 01/21/23 Unknown History (FreeStyle Daniel 2 [place]) flash glucose sensor (FreeStyle 01/13/23 01/21/23 Unknown History Daniel 2 Sensor kit) fluticasone propionate 50 2 spray intranasal DAILY PRN 01/13/23 02/06/23 Unknown History mcg/actuation nasal Congestion spray,suspension furosemide 40 mg tablet 40 mg PO BID 01/13/23 02/06/23 01/21/23 History gabapentin 300 mg capsule 300 mg PO DAILY 01/13/23 02/06/23 01/21/23 History hydralazine 50 mg tablet 100 mg PO TID 01/13/23 02/06/23 01/21/23 History isosorbide mononitrate 60 mg 60 mg PO DAILY 01/13/23 02/06/23 01/21/23 History tablet,extended release 24 hr tamsulosin 0.4 mg capsule 0.4 mg PO BEDTIME 01/13/23 02/06/23 01/20/23 History cholecalciferol (vitamin D3) 1,250 50,000 unit PO [place] 01/21/23 02/06/23 01/20/23 History mcg (50,000 unit) capsule Exam Height,Weight and Vital Signs: Height 5 ft 6 in Weight 71.5 kg Last Vital Signs Temp 97.6 F 02/09/23 07:50 Pulse 72 02/09/23 07:50 Resp 16 02/09/23 07:50 BP 136/62 02/09/23 07:50 Pulse Ox 96 02/09/23 07:50 O2 Del Method Room Air 02/09/23 07:50 Pertinent Lab Results Pertinent Lab Results: Laboratory Tests 02/06/23 02/06/23 02/06/23 16:20 17:09 17:50 WBC 7.4 RBC 2.07 L Hgb 6.2 L* D Hct 20.1 L* MCV 97.1 MCH 30.0 MCHC 30.8 L RDW 13.1 Plt Count 345 D MPV 10.0 Immature Gran % (Auto) 0.4 Neut % (Auto) 73.9 H Lymph % (Auto) 10.8 L [place] % (Auto) 12.8 H Eos % (Auto) 1.7 Baso % (Auto) 0.4 Lymph # (Auto) 0.8 L [place] # (Auto) 1.0 Eos # (Auto) 0.1 Baso # (Auto) 0.0 Abs Immat Gran (auto) 0.03 Absolute Neuts (auto) 5.5 Absolute Nucleated RBC 0.000 Nucleated RBC % (auto) 0.0 PT INR APTT Sodium 137 Potassium 6.0 H* D Chloride 113 H Carbon Dioxide 16 L Anion Gap 14 BUN 90 H Creatinine 8.28 H* Estim Creat Clear Calc 7.8 Estimated GFR 7 POC Glucose 85 90 Random Glucose 75 Fasting Glucose Calcium 8.8 Magnesium Total Bilirubin 0.2 Direct Bilirubin < 0.2 AST 31 ALT 34 Alkaline Phosphatase 307 H Total Protein 7.8 Albumin 2.9 L Urine Color Urine Appearance Urine pH Ur Specific [place] Urine Protein Urine Glucose (UA) Urine Ketones Urine Blood Urine Nitrite Ur Leukocyte Esterase Urine RBC Urine WBC Ur Squamous Epith Cells Urine Bacteria Hyaline Casts Stool Occult Blood Urine Opiates Screen Urine Fentanyl Screen Ur Barbiturates Screen Ur Phencyclidine Scrn Ur Amphetamines Screen U Benzodiazepines Scrn Urine Cocaine Screen U Marijuana (THC) Screen Ethyl Alcohol < 10 Blood Type Antibody Screen Crossmatch 02/06/23 02/06/23 02/06/23 19:11 20:34 20:37 WBC RBC Hgb Hct MCV MCH MCHC RDW Plt Count MPV Immature Gran % (Auto) Neut % (Auto) Lymph % (Auto) [place] % (Auto) Eos % (Auto) Baso % (Auto) Lymph # (Auto) [place] # (Auto) Eos # (Auto) Baso # (Auto) Abs Immat Gran (auto) Absolute Neuts (auto) Absolute Nucleated RBC Nucleated RBC % (auto) PT INR APTT Sodium Potassium Chloride Carbon Dioxide Anion Gap BUN Creatinine Estim Creat Clear Calc Estimated GFR POC Glucose 62 46 L* Random Glucose Fasting Glucose Calcium Magnesium Total Bilirubin Direct Bilirubin AST ALT Alkaline Phosphatase Total Protein Albumin Urine Color Urine Appearance Urine pH Ur Specific [place] Urine Protein Urine Glucose (UA) Urine Ketones Urine Blood Urine Nitrite Ur Leukocyte Esterase Urine RBC Urine WBC Ur Squamous Epith Cells Urine Bacteria Hyaline Casts Stool Occult Blood POSITIVE Urine Opiates Screen Urine Fentanyl Screen Ur Barbiturates Screen Ur Phencyclidine Scrn Ur Amphetamines Screen U Benzodiazepines Scrn Urine Cocaine Screen U Marijuana (THC) Screen Ethyl Alcohol Blood Type Antibody Screen Crossmatch 02/06/23 02/06/23 02/07/23 20:57 21:04 00:01 WBC RBC Hgb Hct MCV MCH MCHC RDW Plt Count MPV Immature Gran % (Auto) Neut % (Auto) Lymph % (Auto) [place] % (Auto) Eos % (Auto) Baso % (Auto) Lymph # (Auto) [place] # (Auto) Eos # (Auto) Baso # (Auto) Abs Immat Gran (auto) Absolute Neuts (auto) Absolute Nucleated RBC Nucleated RBC % (auto) PT INR APTT Sodium Potassium Chloride Carbon Dioxide Anion Gap BUN Creatinine Estim Creat Clear Calc Estimated GFR POC Glucose 83 Random Glucose Fasting Glucose Calcium Magnesium Total Bilirubin Direct Bilirubin AST ALT Alkaline Phosphatase Total Protein Albumin Urine Color Yellow Urine Appearance Cloudy Urine pH 5.[address] [place] 1.015 Urine Protein 300 (3+) H Urine Glucose (UA) Negative Urine Ketones Negative Urine Blood Negative Urine Nitrite Negative Ur Leukocyte Esterase Negative Urine RBC 0-2 Urine WBC 6-10 H Ur Squamous Epith Cells 0-2 Urine Bacteria None Seen Hyaline Casts 3-5 Stool Occult Blood Urine Opiates Screen Not Detected Urine Fentanyl Screen Not Detected Ur Barbiturates Screen Not Detected Ur Phencyclidine Scrn Not Detected Ur Amphetamines Screen Not Detected U Benzodiazepines Scrn Not Detected Urine Cocaine Screen Not Detected U Marijuana (THC) Screen Not Detected Ethyl Alcohol Blood Type O Positive Antibody Screen NEGATIVE Crossmatch See Detail 02/07/23 02/07/23 02/07/23 00:58 03:36 08:03 WBC RBC Hgb Hct MCV MCH MCHC RDW Plt Count MPV Immature Gran % (Auto) Neut % (Auto) Lymph % (Auto) [place] % (Auto) Eos % (Auto) Baso % (Auto) Lymph # (Auto) [place] # (Auto) Eos # (Auto) Baso # (Auto) Abs Immat Gran (auto) Absolute Neuts (auto) Absolute Nucleated RBC Nucleated RBC % (auto) PT INR APTT Sodium Potassium Chloride Carbon Dioxide Anion Gap BUN Creatinine Estim Creat Clear Calc Estimated GFR POC Glucose 70 87 98 Random Glucose Fasting Glucose Calcium Magnesium Total Bilirubin Direct Bilirubin AST ALT Alkaline Phosphatase Total Protein Albumin Urine Color Urine Appearance Urine pH Ur Specific [place] Urine Protein Urine Glucose (UA) Urine Ketones Urine Blood Urine Nitrite Ur Leukocyte Esterase Urine RBC Urine WBC Ur Squamous Epith Cells Urine Bacteria Hyaline Casts Stool Occult Blood Urine Opiates Screen Urine Fentanyl Screen Ur Barbiturates Screen Ur Phencyclidine Scrn Ur Amphetamines Screen U Benzodiazepines Scrn Urine Cocaine Screen U Marijuana (THC) Screen Ethyl Alcohol Blood Type Antibody Screen Crossmatch 02/07/23 02/07/23 02/07/23 11:23 11:44 11:44 WBC 6.1 RBC 2.24 L Hgb 6.8 L* Hct 21.5 L MCV 96.0 MCH 30.4 MCHC 31.6 RDW 13.5 Plt Count 301 MPV 10.2 Immature Gran % (Auto) Neut % (Auto) Lymph % (Auto) [place] % (Auto) Eos % (Auto) Baso % (Auto) Lymph # (Auto) [place] # (Auto) Eos # (Auto) Baso # (Auto) Abs Immat Gran (auto) Absolute Neuts (auto) Absolute Nucleated RBC 0.000 Nucleated RBC % (auto) 0.0 PT 11.9 Cancelled INR 1.0 APTT Sodium Potassium Chloride Carbon Dioxide Anion Gap BUN Creatinine Estim Creat Clear Calc Estimated GFR POC Glucose 84 Random Glucose Fasting Glucose Calcium Magnesium Total Bilirubin Direct Bilirubin AST ALT Alkaline Phosphatase Total Protein Albumin Urine Color Urine Appearance Urine pH Ur Specific [place] Urine Protein Urine Glucose (UA) Urine Ketones Urine Blood Urine Nitrite Ur Leukocyte Esterase Urine RBC Urine WBC Ur Squamous Epith Cells Urine Bacteria Hyaline Casts Stool Occult Blood Urine Opiates Screen Urine Fentanyl Screen Ur Barbiturates Screen Ur Phencyclidine Scrn Ur Amphetamines Screen U Benzodiazepines Scrn Urine Cocaine Screen U Marijuana (THC) Screen Ethyl Alcohol Blood Type Antibody Screen Crossmatch 02/07/23 02/07/23 02/07/23 11:44 11:44 11:44 WBC RBC Hgb Hct MCV MCH MCHC RDW Plt Count MPV Immature Gran % (Auto) Neut % (Auto) Lymph % (Auto) [place] % (Auto) Eos % (Auto) Baso % (Auto) Lymph # (Auto) [place] # (Auto) Eos # (Auto) Baso # (Auto) Abs Immat Gran (auto) Absolute Neuts (auto) Absolute Nucleated RBC Nucleated RBC % (auto) PT INR Cancelled APTT 36.6 H D Sodium Cancelled 136 Potassium Cancelled 5.7 H Chloride Cancelled Carbon Dioxide Anion Gap BUN Creatinine Estim Creat Clear Calc Estimated GFR POC Glucose Random Glucose Fasting Glucose Calcium Magnesium Total Bilirubin Direct Bilirubin AST ALT Alkaline Phosphatase Total Protein Albumin Urine Color Urine Appearance Urine pH Ur Specific [place] Urine Protein Urine Glucose (UA) Urine Ketones Urine Blood Urine Nitrite Ur Leukocyte Esterase Urine RBC Urine WBC Ur Squamous Epith Cells Urine Bacteria Hyaline Casts Stool Occult Blood Urine Opiates Screen Urine Fentanyl Screen Ur Barbiturates Screen Ur Phencyclidine Scrn Ur Amphetamines Screen U Benzodiazepines Scrn Urine Cocaine Screen U Marijuana (THC) Screen Ethyl Alcohol Blood Type Antibody Screen Crossmatch 02/07/23 02/07/23 02/07/23 11:44 11:44 11:44 WBC RBC Hgb Hct MCV MCH MCHC RDW Plt Count MPV Immature Gran % (Auto) Neut % (Auto) Lymph % (Auto) [place] % (Auto) Eos % (Auto) Baso % (Auto) Lymph # (Auto) [place] # (Auto) Eos # (Auto) Baso # (Auto) Abs Immat Gran (auto) Absolute Neuts (auto) Absolute Nucleated RBC Nucleated RBC % (auto) PT INR APTT Sodium Potassium Chloride 111 H Carbon Dioxide Cancelled 17 L Anion Gap Cancelled 14 BUN Cancelled Creatinine Estim Creat Clear Calc Estimated GFR POC Glucose Random Glucose Fasting Glucose Calcium Magnesium Total Bilirubin Direct Bilirubin AST ALT Alkaline Phosphatase Total Protein Albumin Urine Color Urine Appearance Urine pH Ur Specific [place] Urine Protein Urine Glucose (UA) Urine Ketones Urine Blood Urine Nitrite Ur Leukocyte Esterase Urine RBC Urine WBC Ur Squamous Epith Cells Urine Bacteria Hyaline Casts Stool Occult Blood Urine Opiates Screen Urine Fentanyl Screen Ur Barbiturates Screen Ur Phencyclidine Scrn Ur Amphetamines Screen U Benzodiazepines Scrn Urine Cocaine Screen U Marijuana (THC) Screen Ethyl Alcohol Blood Type Antibody Screen Crossmatch 02/07/23 02/07/23 02/07/23 11:44 11:44 11:44 WBC RBC Hgb Hct MCV MCH MCHC RDW Plt Count MPV Immature Gran % (Auto) Neut % (Auto) Lymph % (Auto) [place] % (Auto) Eos % (Auto) Baso % (Auto) Lymph # (Auto) [place] # (Auto) Eos # (Auto) Baso # (Auto) Abs Immat Gran (auto) Absolute Neuts (auto) Absolute Nucleated RBC Nucleated RBC % (auto) PT INR APTT Sodium Potassium Chloride Carbon Dioxide Anion Gap BUN 92 H Creatinine Cancelled 8.27 H* Estim Creat Clear Calc Cancelled 7.8 Estimated GFR Cancelled POC Glucose Random Glucose Fasting Glucose Calcium Magnesium Total Bilirubin Direct Bilirubin AST ALT Alkaline Phosphatase Total Protein Albumin Urine Color Urine Appearance Urine pH Ur Specific [place] Urine Protein Urine Glucose (UA) Urine Ketones Urine Blood Urine Nitrite Ur Leukocyte Esterase Urine RBC Urine WBC Ur Squamous Epith Cells Urine Bacteria Hyaline Casts Stool Occult Blood Urine Opiates Screen Urine Fentanyl Screen Ur Barbiturates Screen Ur Phencyclidine Scrn Ur Amphetamines Screen U Benzodiazepines Scrn Urine Cocaine Screen U Marijuana (THC) Screen Ethyl Alcohol Blood Type Antibody Screen Crossmatch 02/07/23 02/07/23 02/07/23 11:44 11:44 20:49 WBC RBC Hgb Hct MCV MCH MCHC RDW Plt Count MPV Immature Gran % (Auto) Neut % (Auto) Lymph % (Auto) [place] % (Auto) Eos % (Auto) Baso % (Auto) Lymph # (Auto) [place] # (Auto) Eos # (Auto) Baso # (Auto) Abs Immat Gran (auto) Absolute Neuts (auto) Absolute Nucleated RBC Nucleated RBC % (auto) PT INR APTT Sodium Potassium Chloride Carbon Dioxide Anion Gap BUN Creatinine Estim Creat Clear Calc Estimated GFR 7 POC Glucose 142 H Random Glucose Cancelled Fasting Glucose 87 Calcium Cancelled 8.7 Magnesium 2.3 Total Bilirubin 0.2 Direct Bilirubin < 0.2 AST 25 ALT 28 Alkaline Phosphatase 257 H Total Protein 7.1 Albumin 2.6 L Urine Color Urine Appearance Urine pH Ur Specific [place] Urine Protein Urine Glucose (UA) Urine Ketones Urine Blood Urine Nitrite Ur Leukocyte Esterase Urine RBC Urine WBC Ur Squamous Epith Cells Urine Bacteria Hyaline Casts Stool Occult Blood Urine Opiates Screen Urine Fentanyl Screen Ur Barbiturates Screen Ur Phencyclidine Scrn Ur Amphetamines Screen U Benzodiazepines Scrn Urine Cocaine Screen U Marijuana (THC) Screen Ethyl Alcohol Blood Type Antibody Screen Crossmatch 02/08/23 02/08/23 02/08/23 06:38 06:39 07:52 WBC 7.2 RBC 2.53 L Hgb 7.6 L Hct 22.9 L MCV 90.5 D MCH 30.0 MCHC 33.2 RDW 14.1 Plt Count 292 MPV 10.7 Immature Gran % (Auto) Neut % (Auto) Lymph % (Auto) [place] % (Auto) Eos % (Auto) Baso % (Auto) Lymph # (Auto) [place] # (Auto) Eos # (Auto) Baso # (Auto) Abs Immat Gran (auto) Absolute Neuts (auto) Absolute Nucleated RBC 0.000 Nucleated RBC % (auto) 0.0 PT INR APTT Sodium 137 Potassium 4.8 Chloride 105 Carbon Dioxide 22 Anion Gap 15 BUN 63 H Creatinine 5.92 H* Estim Creat Clear Calc 10.9 Estimated GFR 10 POC Glucose 272 H Random Glucose 185 H Fasting Glucose Calcium 8.1 L D Magnesium Total Bilirubin Direct Bilirubin AST ALT Alkaline Phosphatase Total Protein Albumin Urine Color Urine Appearance Urine pH Ur Specific [place] Urine Protein Urine Glucose (UA) Urine Ketones Urine Blood Urine Nitrite Ur Leukocyte Esterase Urine RBC Urine WBC Ur Squamous Epith Cells Urine Bacteria Hyaline Casts Stool Occult Blood Urine Opiates Screen Urine Fentanyl Screen Ur Barbiturates Screen Ur Phencyclidine Scrn Ur Amphetamines Screen U Benzodiazepines Scrn Urine Cocaine Screen U Marijuana (THC) Screen Ethyl Alcohol Blood Type Antibody Screen Crossmatch 02/08/23 02/08/23 02/08/23 12:47 16:39 20:22 WBC RBC Hgb Hct MCV MCH MCHC RDW Plt Count MPV Immature Gran % (Auto) Neut % (Auto) Lymph % (Auto) [place] % (Auto) Eos % (Auto) Baso % (Auto) Lymph # (Auto) [place] # (Auto) Eos # (Auto) Baso # (Auto) Abs Immat Gran (auto) Absolute Neuts (auto) Absolute Nucleated RBC Nucleated RBC % (auto) PT INR APTT Sodium Potassium Chloride Carbon Dioxide Anion Gap BUN Creatinine Estim Creat Clear Calc Estimated GFR POC Glucose 128 H 204 H 78 Random Glucose Fasting Glucose Calcium Magnesium Total Bilirubin Direct Bilirubin AST ALT Alkaline Phosphatase Total Protein Albumin Urine Color Urine Appearance Urine pH Ur Specific [place] Urine Protein Urine Glucose (UA) Urine Ketones Urine Blood Urine Nitrite Ur Leukocyte Esterase Urine RBC Urine WBC Ur Squamous Epith Cells Urine Bacteria Hyaline Casts Stool Occult Blood Urine Opiates Screen Urine Fentanyl Screen Ur Barbiturates Screen Ur Phencyclidine Scrn Ur Amphetamines Screen U Benzodiazepines Scrn Urine Cocaine Screen U Marijuana (THC) Screen Ethyl Alcohol Blood Type Antibody Screen Crossmatch 02/09/23 02/09/23 06:33 07:38 WBC 8.1 RBC 2.54 L Hgb 7.5 L Hct 23.0 L MCV 90.6 MCH 29.5 MCHC 32.6 RDW 13.6 Plt Count 272 MPV 10.6 Immature Gran % (Auto) 0.5 H Neut % (Auto) 71.1 Lymph % (Auto) 9.3 L [place] % (Auto) 17.1 H Eos % (Auto) 1.4 Baso % (Auto) 0.6 Lymph # (Auto) 0.8 L [place] # (Auto) 1.4 H Eos # (Auto) 0.1 Baso # (Auto) 0.1 Abs Immat Gran (auto) 0.04 H Absolute Neuts (auto) 5.7 Absolute Nucleated RBC 0.000 Nucleated RBC % (auto) 0.0 PT INR APTT Sodium 135 Potassium 4.6 Chloride 105 Carbon Dioxide 22 Anion Gap 13 BUN 43 H Creatinine 4.99 H* Estim Creat Clear Calc 12.9 Estimated GFR 12 POC Glucose 132 H Random Glucose Fasting Glucose 155 H Calcium 8.0 L Magnesium Total Bilirubin 0.3 Direct Bilirubin AST 29 ALT 23 Alkaline Phosphatase 220 H Total Protein 7.4 Albumin 2.8 L Urine Color Urine Appearance Urine pH Ur Specific [place] Urine Protein Urine Glucose (UA) Urine Ketones Urine Blood Urine Nitrite Ur Leukocyte Esterase Urine RBC Urine WBC Ur Squamous Epith Cells Urine Bacteria Hyaline Casts Stool Occult Blood Urine Opiates Screen Urine Fentanyl Screen Ur Barbiturates Screen Ur Phencyclidine Scrn Ur Amphetamines Screen U Benzodiazepines Scrn Urine Cocaine Screen U Marijuana (THC) Screen Ethyl Alcohol Blood Type Antibody Screen Crossmatch Assessment and Plan Final Anesthetic Review Family History of Problems with Anesthesia: No History of Problems with Anesthesia: No
[2023-02-09 12:00] VITALS: BP 134/61; PULSE 69; RESP 16; TEMP 36.2; O2SAT 96
[2023-02-09 12:00] LABS: Glucose, Whole Blood 160 mg/dL (60-115)
--- NOTE | 2023-02-09 12:51 | PM.PNNEP ---
Subjective Subjective Date of Service: 02/09/23 Interval history: dialysis today Physical Exam Vital Signs: Vital Signs: Last Vital Signs Temp 97.1 F 02/09/23 12:00 Pulse 69 02/09/23 12:00 Resp 16 02/09/23 12:00 BP 134/61 02/09/23 12:00 Pulse Ox 96 02/09/23 12:00 O2 Del Method Room Air 02/09/23 12:00 BMI result Body Mass Index 25.4 Const: General: cooperative, no acute distress and alert Resp: Auscultation: clear to auscultation bilaterally Cardio: Rate: regular rate Rhythm: regular rhythm GI: Palpation (GI): Soft to palpation and nontender Extrem: General: No edema Objective Data Labs 02/09/23 06:33 02/09/23 06:33 Labs: Laboratory Results - last 24 hr 02/08/23 02/08/23 02/08/23 12:47 16:39 20:22 WBC RBC Hgb Hct MCV MCH MCHC RDW Plt Count MPV Immature Gran % (Auto) Neut % (Auto) Lymph % (Auto) [place] % (Auto) Eos % (Auto) Baso % (Auto) Lymph # (Auto) [place] # (Auto) Eos # (Auto) Baso # (Auto) Abs Immat Gran (auto) Absolute Neuts (auto) Absolute Nucleated RBC Nucleated RBC % (auto) Sodium Potassium Chloride Carbon Dioxide Anion Gap BUN Creatinine Estim Creat Clear Calc Estimated GFR POC Glucose 128 H 204 H 78 Fasting Glucose Calcium Total Bilirubin AST ALT Alkaline Phosphatase Total Protein Albumin 02/09/23 02/09/23 02/09/23 06:33 07:38 11:39 WBC 8.1 RBC 2.54 L Hgb 7.5 L Hct 23.0 L MCV 90.6 MCH 29.5 MCHC 32.6 RDW 13.6 Plt Count 272 MPV 10.6 Immature Gran % (Auto) 0.5 H Neut % (Auto) 71.1 Lymph % (Auto) 9.3 L [place] % (Auto) 17.1 H Eos % (Auto) 1.4 Baso % (Auto) 0.6 Lymph # (Auto) 0.8 L [place] # (Auto) 1.4 H Eos # (Auto) 0.1 Baso # (Auto) 0.1 Abs Immat Gran (auto) 0.04 H Absolute Neuts (auto) 5.7 Absolute Nucleated RBC 0.000 Nucleated RBC % (auto) 0.0 Sodium 135 Potassium 4.6 Chloride 105 Carbon Dioxide 22 Anion Gap 13 BUN 43 H Creatinine 4.99 H* Estim Creat Clear Calc 12.9 Estimated GFR 12 POC Glucose 132 H 160 H Fasting Glucose 155 H Calcium 8.0 L Total Bilirubin 0.3 AST 29 ALT 23 Alkaline Phosphatase 220 H Total Protein 7.4 Albumin 2.8 L Microbiology Microbiology Results: Microbiology 02/07/23 Unknown Urine Catheterized - Harris Catheter Urine Culture - Final No growth. Procedures Date of Service Date of Service: 02/09/23 Assessment & Plan Assessment and plan (1) KEYA (acute kidney injury): Status: Inactive (2) (HFpEF) heart failure with preserved ejection fraction: Status: Acute (3) Renal artery stenosis: Status: Inactive (4) ESRD (end stage renal disease): Status: Acute Plan 1. Advanced CKD with history of Dialysis dependent KEYA Now likely ESRD ESRD due to progressive nephron loss from recurrent AKIs as well as backdrop of DM/HTN/vascular disease. Possible R RA stenosis too. proteinuria 1.8 g REC Dialysis today then on TTS schedule. Fistula creation Saturday Venofer 200mg IV dosed 02/08 EPO 20,000u dosed 02/08 Needs outpatient Dialysis chair scheduled, will be Finalized Saturday/Saturday Time Spent With Patient Time: Total time managing care of this patient today ____ minutes. Progress Note: Quality Stroke Does the patient have a stroke diagnosis?: No
[2023-02-09] MEDS: Insulin Lispro 100 UNIT/ML 3 ML VIAL SUBCUT ×2 (12:55→21:32)
[2023-02-09] MEDS: guaiFEN/Codeine SF 200/20/10ML 10 ML LIQUID PO (12:55)
--- NOTE | 2023-02-09 14:12 | P.PNIM_ITS ---
Subjective Subjective Date of Service: 02/09/23 Interval History: Tolerated dialysis today. Does complain of dry cough Review of Systems Denies chest pain Denies shortness of breath Denies nausea vomiting diarrhea Denies fever chills Physical Exam 2 Vital Signs: Vital Signs: Last Vital Signs Temp 97.1 F 02/09/23 12:00 Pulse 69 02/09/23 12:00 Resp 16 02/09/23 12:00 BP 134/61 02/09/23 12:00 Pulse Ox 96 02/09/23 12:00 O2 Del Method Room Air 02/09/23 12:00 BMI result Body Mass Index 25.4 Const: Other: Awake alert no acute distress Resp: Other: Clear to auscultation bilaterally no rales rhonchi or wheezes Cardio: Other: No S4; positive S1-S2; no S3 murmurs rubs or gallops GI: Other: Soft nontender nondistended normoactive bowel sounds Extrem: Other: No edema bilaterally Objective Data Active Medications Acetaminophen (Acetaminophen 325 Mg Tablet) 650 mg PO Q6H PRN PRN Reason: mild pain Last Admin: 02/08/23 05:34 Dose: 650 mg Documented By: SANG Albuterol Sulfate (Albuterol Sulfate 90 Mcg 8 Gm Inhaler) 2 puff INHALE Q4H PRN PRN Reason: Wheezing Amoxicillin/Clavulanate Potassium (Amoxicillin/Potassium Clav 250 Mg Tablet) 250 mg PO Q12H [facility] Last Admin: 02/09/23 08:50 Dose: 250 mg Documented By: ABDULKADIR Aspirin (Aspirin 81 Mg Tab.Chew) 81 mg PO DAILY [facility] Last Admin: 02/09/23 08:49 Dose: 81 mg Documented By: ABDULKADIR Atorvastatin Calcium (Atorvastatin Calcium 80 Mg Tablet) 80 mg PO BEDTIME [facility] Last Admin: 02/08/23 21:34 Dose: 80 mg Documented By: ALBARRAN Carvedilol (Carvedilol 25 Mg Tablet) 25 mg PO BID [facility]; Protocol Last Admin: 02/09/23 08:49 Dose: 25 mg Documented By: ABDULKADIR Dextrose (Dextrose 50 % 25 Gm/50 Ml Syringe) 25 gm IVPUSH Q15M PRN; Protocol PRN Reason: per Hypoglycemia Standing Ord. Docusate Sodium (Docusate Sodium 100 Mg Capsule) 100 mg PO BEDTIME [facility] Last Admin: 02/08/23 21:34 Dose: 100 mg Documented By: ALAN Ezetimibe (Ezetimibe 10 Mg Tablet) 10 mg PO DAILY [facility] Last Admin: 02/09/23 08:49 Dose: 10 mg Documented By: ABDULKADIR Gabapentin (Gabapentin 300 Mg Capsule) 300 mg PO DAILY [facility] Last Admin: 02/09/23 08:49 Dose: 300 mg Documented By: ABDULKADIR Glucose (Glucose Gel 15 Gm Gel..Gram.) 15 gm PO Q15M PRN; Protocol PRN Reason: per Hypoglycemia Standing Ord. Guaifenesin/Codeine Phosphate (Guaifen/Codeine Sf 200/20/10ml 10 Ml Liquid) 10 ml PO Q6H PRN PRN Reason: cough Last Admin: 02/09/23 12:55 Dose: 10 ml Documented By: ABDULKADIR Hydralazine HCl (Hydralazine Hcl 50 Mg Tablet) 100 mg PO TID [facility]; Protocol Last Admin: 02/09/23 08:49 Dose: 100 mg Documented By: ABDULKADIR Insulin Human Lispro (Insulin Lispro 100 Unit/Ml 3 Ml Vial) 0 unit SUBCUT QIDACHS [facility]; Protocol Last Admin: 02/09/23 12:55 Dose: 2 unit Documented By: ABDULKADIR Isosorbide Mononitrate (Isosorbide Mononitrate 60 Mg Tab.Er.24h) 60 mg PO DAILY [facility]; Protocol Last Admin: 02/09/23 08:48 Dose: 60 mg Documented By: ABDULKADIR Nifedipine (Nifedipine Er 30 Mg Tab.Er.24) 90 mg PO DAILY [facility]; Protocol Last Admin: 02/09/23 08:49 Dose: 90 mg Documented By: ABDULKADIR Pantoprazole Sodium (Pantoprazole Sodium 40 Mg/10 Ml Vial) 40 mg IVPUSH BID@0630,1630 [facility] Last Admin: 02/09/23 05:51 Dose: 40 mg Documented By: ALAN Sertraline HCl (Sertraline Hcl 50 Mg Tablet) 50 mg PO DAILY [facility] Last Admin: 02/09/23 08:49 Dose: 50 mg Documented By: ABDULKADIR Sodium Chloride (0.9 % Sodium Chloride Flush 3 Ml Syringe) 3 ml IVFLUSH QSHIFT [facility] Last Admin: 02/09/23 08:50 Dose: 3 ml Documented By: ABDULKADIR Tamsulosin HCl (Tamsulosin Hcl 0.4 Mg Capsule) 0.4 mg PO BEDTIME [facility] Last Admin: 02/08/23 21:34 Dose: 0.4 mg Documented By: ALAN Labs 02/09/23 06:33 02/09/23 06:33 Labs: Laboratory Results - last 24 hr 02/08/23 02/08/23 02/09/23 16:39 20:22 06:33 MCV 90.6 MCH 29.5 MCHC 32.6 RDW 13.6 Plt Count 272 MPV 10.6 Immature Gran % (Auto) 0.5 H Neut % (Auto) 71.1 Lymph % (Auto) 9.3 L [place] % (Auto) 17.1 H Eos % (Auto) 1.4 Baso % (Auto) 0.6 Lymph # (Auto) 0.8 L [place] # (Auto) 1.4 H Eos # (Auto) 0.1 Baso # (Auto) 0.1 Abs Immat Gran (auto) 0.04 H Absolute Neuts (auto) 5.7 Absolute Nucleated RBC 0.000 Nucleated RBC % (auto) 0.0 Anion Gap 13 Estim Creat Clear Calc 12.9 Estimated GFR 12 POC Glucose 204 H 78 Fasting Glucose 155 H Calcium 8.0 L Total Bilirubin 0.3 AST 29 ALT 23 Alkaline Phosphatase 220 H Total Protein 7.4 Albumin 2.8 L 02/09/23 02/09/23 07:38 11:39 MCV MCH MCHC RDW Plt Count MPV Immature Gran % (Auto) Neut % (Auto) Lymph % (Auto) [place] % (Auto) Eos % (Auto) Baso % (Auto) Lymph # (Auto) [place] # (Auto) Eos # (Auto) Baso # (Auto) Abs Immat Gran (auto) Absolute Neuts (auto) Absolute Nucleated RBC Nucleated RBC % (auto) Anion Gap Estim Creat Clear Calc Estimated GFR POC Glucose 132 H 160 H Fasting Glucose Calcium Total Bilirubin AST ALT Alkaline Phosphatase Total Protein Albumin Microbiology Microbiology Results: Microbiology 02/07/23 Unknown Urine Culture - Final Urine Catheterized - Harris Catheter No growth. Assessment and Plan (1) ESRD (end stage renal disease): Status: Acute (2) Anemia: Status: Acute Plan 67yo M with DM2, CKD3, hx L BKA + R TMA, HLD, HFpEF, LORENZO, LIVE, HLD, PAD, recent acalculous cholecystitis with cholecystotomy tube presenting with AMS, admitted for KEYA -> ESRD 1.Acute metabolic encephalopathy due to uremia/KEYA-CKD3 ... Now ESRD dialysis dependent -resolved with hemodialysis -further dialysis as per Renal -fistula placement by vascular 02/11/23 2.Acute/chronic anemia, -status post 2 units PRBC -follow CBC in a.m.; treat as indicated 3.Acalculous cholecystitis with CCY tube - continue CCY tube, total 6 wk; -Augmentin as ordered 4.DM2 -acceptable control off therapies -TID AC POCs..lispro correctional scale 5.HTN -acceptable control on current therapies -Imdur, nifedipine, hydralazine, carvedilol Boots Full Code Requires ongoing hospitalization for continued dialysis and creation of a fistula for chronic hemodialysis Quality Stroke Does the patient have a stroke diagnosis?: No VTE Prior VTE?: No VTE Risk Level:: Medical - moderate - high VTE Device Contraindication: N/A - Device Ordered VTE Drug Contraindication: N/A - Med Ordered
[2023-02-09 15:41] VITALS: BP 142/65; PULSE 63; RESP 18; TEMP 36.4; O2SAT 96
[2023-02-09 16:15] LABS: Glucose, Whole Blood 139 mg/dL (60-115)
[2023-02-09 19:37] VITALS: BP 148/68; PULSE 70; RESP 18; TEMP 36.8; O2SAT 96
[2023-02-09 20:57] LABS: Glucose, Whole Blood 180 mg/dL (60-115)
[2023-02-09] MEDS: Docusate Sodium 100 MG CAPSULE PO (21:32)
[2023-02-09] MEDS: Tamsulosin HCL 0.4 MG CAPSULE PO (21:33)
[2023-02-09] MEDS: Atorvastatin Calcium 80 MG TABLET PO (21:33)
[2023-02-10] VITALS: BP 151/70; PULSE 73; RESP 18; TEMP 37.3; O2SAT 95
[2023-02-10 04:00] VITALS: BP 175/77; PULSE 91; RESP 20; TEMP 38.2; O2SAT 94
[2023-02-10] MEDS: guaiFEN/Codeine SF 200/20/10ML 10 ML LIQUID PO ×2 (05:21→20:17)
[2023-02-10] MEDS: Acetaminophen 325 MG TABLET 650 MG PO ×2 (05:21→15:40)
[2023-02-10 06:27] LABS: MANUAL DIFF FLAG NO
[2023-02-10 06:46] LABS: Alanine Aminotransferase 21 U/L (0-40); Albumin Level 2.8 g/dL (3.5-5.0); Alkaline Phosphatase 217 U/L (39-117); Anion Gap 13 (12-20); Aspartate Amino Transferase 27 U/L (5-37); Bilirubin Total 0.4 mg/dL (0.0-1.0); Blood Urea Nitrogen 23 mg/dL (9-16); Calcium 8.6 mg/dL (8.4-10.2); Carbon Dioxide 21 mmol/L (22-29); Chloride 103 mmol/L (96-108); Creatinine Clr Calc Pharmacy 15.8; Estimated Glomerular Filt Rate 15; Glucose Fasting 96 mg/dL (60-99); Potassium 4.3 mmol/L (3.3-5.1); Sodium 133 mmol/L (135-145); Total Protein 7.7 g/dL (6.5-8.0)
[2023-02-10 07:15] LABS: Basophils Absolute Auto 0.1 X10*3/uL (0.0-0.2); Basophils Percent Auto 0.6 % (0-2); Eosinophils Absolute Auto 0.1 X10*3/uL (0.0-0.4); Eosinophils Percent Auto 0.6 % (0-4); Hematocrit 24.9 % (42.0-52.0); Hemoglobin 7.9 g/dl (14.0-18.0); Imm Gran Abs Auto 0.06 X10*3/uL (0.00-0.03); Imm Gran Pct Auto 0.6 % (0.0-0.4); Lymphocytes Absolute Auto 0.6 X10*3/uL (1.2-4.9); Lymphocytes Percent Auto 6.4 % (20-40); Mean Corpuscular HGB Conc 31.7 g/dl (31.0-36.0); Mean Corpuscular Hemoglobin 30.4 pg (27.0-33.0); Mean Corpuscular Volume 95.8 fL (80.0-98.0); Mean Platelet Volume 10.7 fL (9.4-12.4); Monocytes Absolute Auto 1.3 X10*3/uL (0.1-1.2); Monocytes Percent Auto 13.8 % (2-11); Neutrophils Absolute Auto 7.3 x10*3/uL (2.0-8.3); Platelet Count 261 X10*3/uL (160-400); Red Cell Distribution Width 13.4 % (11.0-16.0); White Blood Count 9.3 X10*3/uL (4.8-10.8)
[2023-02-10 07:34] LABS: Glucose, Whole Blood 89 mg/dL (60-115)
[2023-02-10 08:00] VITALS: BP 169/73; PULSE 84; RESP 18; TEMP 37.3; O2SAT 96
[2023-02-10] MEDS: Sertraline HCL 50 MG TABLET PO (09:43)
[2023-02-10] MEDS: Aspirin 81 MG TAB.CHEW PO (09:43)
[2023-02-10] MEDS: hydrALAZINE HCl 50 MG TABLET 100 MG PO ×3 (09:43→20:04)
[2023-02-10] MEDS: Ezetimibe 10 MG TABLET PO (09:43)
[2023-02-10] MEDS: carvediloL 25 MG TABLET PO ×2 (09:43→20:04)
[2023-02-10] MEDS: Gabapentin 300 MG CAPSULE PO (09:43)
[2023-02-10] MEDS: NIFEdipine ER 30 MG TAB.ER.24 90 MG PO (09:43)
[2023-02-10] MEDS: Isosorbide Mononitrate 60 MG TAB.ER.24H PO (09:43)
[2023-02-10 11:30] VITALS: BP 177/81; PULSE 86; RESP 18; TEMP 37.3; O2SAT 90
[2023-02-10 12:03] LABS: Glucose, Whole Blood 204 mg/dL (60-115)
[2023-02-10] MEDS: Insulin Lispro 100 UNIT/ML 3 ML VIAL SUBCUT ×2 (12:15→20:06)
[2023-02-10] MEDS: Amoxicillin/Potassium Clav 250 MG TABLET PO ×2 (12:20→20:04)
--- NOTE | 2023-02-10 14:32 | P.PNIM_ITS ---
Subjective Subjective Date of Service: 02/10/23 Interval History: Doing well overall. Voices no complaints Review of Systems Denies chest pain Denies shortness of breath Denies nausea vomiting diarrhea Denies fever chills Physical Exam 2 Vital Signs: Vital Signs: Last Vital Signs Temp 99.2 F 02/10/23 11:30 Pulse 86 02/10/23 11:30 Resp 18 02/10/23 11:30 BP 177/81 H 02/10/23 11:30 Pulse Ox 90 L 02/10/23 11:30 O2 Del Method Room Air 02/10/23 11:30 BMI result Body Mass Index 25.4 Const: Other: Awake alert no acute distress Resp: Other: Clear to auscultation bilaterally no rales rhonchi or wheezes Cardio: Other: No S4; positive S1-S2; no S3 murmurs rubs or gallops GI: Other: Soft nontender nondistended normoactive bowel sounds Extrem: Other: No edema bilaterally Objective Data Active Medications Acetaminophen (Acetaminophen 325 Mg Tablet) 650 mg PO Q6H PRN PRN Reason: mild pain Last Admin: 02/10/23 05:21 Dose: 650 mg Documented By: ALAN Albuterol Sulfate (Albuterol Sulfate 90 Mcg 8 Gm Inhaler) 2 puff INHALE Q4H PRN PRN Reason: Wheezing Amoxicillin/Clavulanate Potassium (Amoxicillin/Potassium Clav 250 Mg Tablet) 250 mg PO Q12H [facility] Last Admin: 02/10/23 12:20 Dose: 250 mg Documented By: ABDULKADIR Aspirin (Aspirin 81 Mg Tab.Chew) 81 mg PO DAILY [facility] Last Admin: 02/10/23 09:43 Dose: 81 mg Documented By: ABDULKADIR Atorvastatin Calcium (Atorvastatin Calcium 80 Mg Tablet) 80 mg PO BEDTIME [facility] Last Admin: 02/09/23 21:33 Dose: 80 mg Documented By: ALAN Carvedilol (Carvedilol 25 Mg Tablet) 25 mg PO BID [facility]; Protocol Last Admin: 02/10/23 09:43 Dose: 25 mg Documented By: ABDULKADIR Dextrose (Dextrose 50 % 25 Gm/50 Ml Syringe) 25 gm IVPUSH Q15M PRN; Protocol PRN Reason: per Hypoglycemia Standing Ord. Docusate Sodium (Docusate Sodium 100 Mg Capsule) 100 mg PO BEDTIME [facility] Last Admin: 02/09/23 21:32 Dose: 100 mg Documented By: ALAN Ezetimibe (Ezetimibe 10 Mg Tablet) 10 mg PO DAILY [facility] Last Admin: 02/10/23 09:43 Dose: 10 mg Documented By: ABDULKADIR Gabapentin (Gabapentin 300 Mg Capsule) 300 mg PO DAILY [facility] Last Admin: 02/10/23 09:43 Dose: 300 mg Documented By: ABDULKADIR Glucose (Glucose Gel 15 Gm Gel..Gram.) 15 gm PO Q15M PRN; Protocol PRN Reason: per Hypoglycemia Standing Ord. Guaifenesin/Codeine Phosphate (Guaifen/Codeine Sf 200/20/10ml 10 Ml Liquid) 10 ml PO Q6H PRN PRN Reason: cough Last Admin: 02/10/23 05:21 Dose: 10 ml Documented By: ALAN Hydralazine HCl (Hydralazine Hcl 50 Mg Tablet) 100 mg PO TID [facility]; Protocol Last Admin: 02/10/23 14:26 Dose: 100 mg Documented By: ABDULKADIR Insulin Human Lispro (Insulin Lispro 100 Unit/Ml 3 Ml Vial) 0 unit SUBCUT QIDACHS [facility]; Protocol Last Admin: 02/10/23 12:15 Dose: 4 unit Documented By: ABDULKADIR Isosorbide Mononitrate (Isosorbide Mononitrate 60 Mg Tab.Er.24h) 60 mg PO DAILY [facility]; Protocol Last Admin: 02/10/23 09:43 Dose: 60 mg Documented By: ABDULKADIR Nifedipine (Nifedipine Er 30 Mg Tab.Er.24) 90 mg PO DAILY [facility]; Protocol Last Admin: 02/10/23 09:43 Dose: 90 mg Documented By: ABDULKADIR Sertraline HCl (Sertraline Hcl 50 Mg Tablet) 50 mg PO DAILY [facility] Last Admin: 02/10/23 09:43 Dose: 50 mg Documented By: ABDULKADIR Sodium Chloride (0.9 % Sodium Chloride Flush 3 Ml Syringe) [facility] Last Admin: 02/10/23 07:34 Dose: Not Given Documented By: ABDULKADIR Non-Admin Reason: NO IV ACCESS Tamsulosin HCl (Tamsulosin Hcl 0.4 Mg Capsule) 0.4 mg PO BEDTIME [facility] Last Admin: 02/09/23 21:33 Dose: 0.4 mg Documented By: ALAN Labs 02/10/23 06:22 02/10/23 06:22 Labs: Laboratory Results - last 24 hr 02/09/23 02/09/23 02/10/23 16:11 20:50 06:22 MCV 95.8 D MCH 30.4 MCHC 31.7 RDW 13.4 Plt Count 261 MPV 10.7 Immature Gran % (Auto) 0.6 H Neut % (Auto) 78.0 H Lymph % (Auto) 6.4 L [place] % (Auto) 13.8 H Eos % (Auto) 0.6 Baso % (Auto) 0.6 Lymph # (Auto) 0.6 L [place] # (Auto) 1.3 H Eos # (Auto) 0.1 Baso # (Auto) 0.1 Abs Immat Gran (auto) 0.06 H Absolute Neuts (auto) 7.3 Absolute Nucleated RBC 0.000 Nucleated RBC % (auto) 0.0 Anion Gap 13 Estim Creat Clear Calc 15.8 Estimated GFR 15 POC Glucose 139 H 180 H Fasting Glucose 96 Calcium 8.6 D Total Bilirubin 0.4 AST 27 ALT 21 Alkaline Phosphatase 217 H Total Protein 7.7 Albumin 2.8 L 02/10/23 02/10/23 07:25 11:43 MCV MCH MCHC RDW Plt Count MPV Immature Gran % (Auto) Neut % (Auto) Lymph % (Auto) [place] % (Auto) Eos % (Auto) Baso % (Auto) Lymph # (Auto) [place] # (Auto) Eos # (Auto) Baso # (Auto) Abs Immat Gran (auto) Absolute Neuts (auto) Absolute Nucleated RBC Nucleated RBC % (auto) Anion Gap Estim Creat Clear Calc Estimated GFR POC Glucose 89 204 H Fasting Glucose Calcium Total Bilirubin AST ALT Alkaline Phosphatase Total Protein Albumin Assessment and Plan (1) ESRD (end stage renal disease): Status: Acute Plan 67yo M with DM2, CKD3, hx L BKA + R TMA, HLD, HFpEF, LORENZO, LIVE, HLD, PAD, recent acalculous cholecystitis with cholecystotomy tube presenting with AMS, admitted for KEYA -> ESRD 1.Acute metabolic encephalopathy due to uremia/KEYA-CKD3 ... Now ESRD dialysis dependent -resolved with hemodialysis -further dialysis as per Renal -fistula placement by vascular 02/11/23 2.Acute/chronic anemia, -status post 2 units PRBC -follow CBC in a.m.; treat as indicated 3.Acalculous cholecystitis with CCY tube - continue CCY tube, total 6 wk; -Augmentin as ordered 4.DM2 -acceptable control off therapies -TID AC POCs..lispro correctional scale 5.HTN -acceptable control on current therapies -Imdur, nifedipine, hydralazine, carvedilol Boots Full Code Requires ongoing hospitalization for continued dialysis and creation of a fistula for chronic hemodialysis Quality Stroke Does the patient have a stroke diagnosis?: No VTE Prior VTE?: No VTE Risk Level:: Medical - moderate - high VTE Device Contraindication: N/A - Device Ordered VTE Drug Contraindication: N/A - Med Ordered
[2023-02-10 15:11] VITALS: BP 129/59; PULSE 67; RESP 24; TEMP 37.7; O2SAT 94
[2023-02-10 16:05] LABS: Glucose, Whole Blood 149 mg/dL (60-115)
--- NOTE | 2023-02-10 16:49 | PC.NURSE ---
NO IV ACCESS MD MADE AWARE IV ACCESS HAS BEEN LOST THIS MORNING AROUND [id number]. 2 RN'S ATTEMPTED TO ACCESS A PERIPHERAL LINE UNSUCCESSFULLY. PERMACATH IN PLACE IN CASE OF EMERGENT NEEDS, OKAY TO BE WITHOUT IV FOR NOW.
--- NOTE | 2023-02-10 16:50 | PM.PNNEP ---
Subjective Subjective Date of Service: 02/10/23 Interval history: Doing well overall. Voices no complaints Physical Exam Vital Signs: Vital Signs: Last Vital Signs Temp 99.9 F 02/10/23 15:11 Pulse 67 02/10/23 15:11 Resp 24 H 02/10/23 15:11 BP 129/59 L 02/10/23 15:11 Pulse Ox 94 02/10/23 15:11 O2 Del Method Room Air 02/10/23 15:11 BMI result Body Mass Index 25.4 Const: General: cooperative, no acute distress and alert Resp: Auscultation: clear to auscultation bilaterally Cardio: Rate: regular rate Rhythm: regular rhythm GI: Palpation (GI): Soft to palpation and nontender Extrem: General: No edema Objective Data Labs 02/10/23 06:22 02/10/23 06:22 Labs: Laboratory Results - last 24 hr 02/09/23 02/10/23 02/10/23 20:50 06:22 07:25 WBC 9.3 RBC 2.60 L Hgb 7.9 L Hct 24.9 L MCV 95.8 D MCH 30.4 MCHC 31.7 RDW 13.4 Plt Count 261 MPV 10.7 Immature Gran % (Auto) 0.6 H Neut % (Auto) 78.0 H Lymph % (Auto) 6.4 L [place] % (Auto) 13.8 H Eos % (Auto) 0.6 Baso % (Auto) 0.6 Lymph # (Auto) 0.6 L [place] # (Auto) 1.3 H Eos # (Auto) 0.1 Baso # (Auto) 0.1 Abs Immat Gran (auto) 0.06 H Absolute Neuts (auto) 7.3 Absolute Nucleated RBC 0.000 Nucleated RBC % (auto) 0.0 Sodium 133 L Potassium 4.3 Chloride 103 Carbon Dioxide 21 L Anion Gap 13 BUN 23 H Creatinine 4.07 H* Estim Creat Clear Calc 15.8 Estimated GFR 15 POC Glucose 180 H 89 Fasting Glucose 96 Calcium 8.6 D Total Bilirubin 0.4 AST 27 ALT 21 Alkaline Phosphatase 217 H Total Protein 7.7 Albumin 2.8 L 02/10/23 02/10/23 11:43 16:00 WBC RBC Hgb Hct MCV MCH MCHC RDW Plt Count MPV Immature Gran % (Auto) Neut % (Auto) Lymph % (Auto) [place] % (Auto) Eos % (Auto) Baso % (Auto) Lymph # (Auto) [place] # (Auto) Eos # (Auto) Baso # (Auto) Abs Immat Gran (auto) Absolute Neuts (auto) Absolute Nucleated RBC Nucleated RBC % (auto) Sodium Potassium Chloride Carbon Dioxide Anion Gap BUN Creatinine Estim Creat Clear Calc Estimated GFR POC Glucose 204 H 149 H Fasting Glucose Calcium Total Bilirubin AST ALT Alkaline Phosphatase Total Protein Albumin Microbiology Microbiology Results: Microbiology 02/07/23 Unknown Urine Catheterized - Harris Catheter Urine Culture - Final No growth. Procedures Date of Service Date of Service: 02/10/23 Assessment & Plan Assessment and plan (1) KEYA (acute kidney injury): Status: Inactive (2) (HFpEF) heart failure with preserved ejection fraction: Status: Acute (3) Renal artery stenosis: Status: Inactive (4) ESRD (end stage renal disease): Status: Acute Plan 1. Advanced CKD with history of Dialysis dependent KEYA Now likely ESRD ESRD due to progressive nephron loss from recurrent AKIs as well as backdrop of DM/HTN/vascular disease. Possible R RA stenosis too. proteinuria 1.8 g Dialyzed 02/07, 02/08, 02/09 for initiation. REC Dialysis will now be on TTS schedule. Fistula creation Saturday Venofer 200mg IV dosed 02/08 EPO 20,000u dosed 02/08 Needs outpatient Dialysis chair scheduled. Saturday will confirm placement with [facility] Time Spent With Patient Time: Total time managing care of this patient today ____ minutes. Progress Note: Quality Stroke Does the patient have a stroke diagnosis?: No
[2023-02-10 19:48] VITALS: BP 155/73; PULSE 70; RESP 20; TEMP 37.2; O2SAT 92
[2023-02-10] MEDS: Tamsulosin HCL 0.4 MG CAPSULE PO (20:04)
[2023-02-10] MEDS: 0.9 % Sodium Chloride Flush 3 ML SYRINGE IVFLUSH (20:04)
[2023-02-10] MEDS: Docusate Sodium 100 MG CAPSULE PO (20:04)
[2023-02-10] MEDS: Atorvastatin Calcium 80 MG TABLET PO (20:04)
[2023-02-10 20:08] LABS: Glucose, Whole Blood 180 mg/dL (60-115)
[2023-02-11] VITALS (15 sets, daily range): BP systolic 125–176; BP diastolic 51–89; PULSE 60–80; RESP 16–22; TEMP 36.7–37.6; O2SAT 89–100
[2023-02-11] MEDS: guaiFEN/Codeine SF 200/20/10ML 10 ML LIQUID PO (04:04)
--- NOTE | 2023-02-11 04:31 | PC.NURSE ---
At approx 0400, pt O2 sats down to the mid 80s. Lung sounds clear. Placed on 2L O2 via NC and on continuous pulse ox with improvement. MD Webster aware.
[2023-02-11 07:59] LABS: Glucose, Whole Blood 100 mg/dL (60-115)
[2023-02-11 08:22] LABS: Basophils Percent Auto 0.4 % (0-2); Eosinophils Percent Auto 0.4 % (0-4); Hematocrit 22.3 % (42.0-52.0); Imm Gran Abs Auto 0.07 X10*3/uL (0.00-0.03); Imm Gran Pct Auto 0.8 % (0.0-0.4); Lymphocytes Absolute Auto 0.6 X10*3/uL (1.2-4.9); Lymphocytes Percent Auto 7.5 % (20-40); MANUAL DIFF FLAG SCAN; Mean Corpuscular HGB Conc 31.4 g/dl (31.0-36.0); Mean Corpuscular Hemoglobin 29.2 pg (27.0-33.0); Mean Corpuscular Volume 92.9 fL (80.0-98.0); Mean Platelet Volume 10.7 fL (9.4-12.4); Monocytes Absolute Auto 1.7 X10*3/uL (0.1-1.2); Neutrophils Absolute Auto 6.1 x10*3/uL (2.0-8.3); Neutrophils Percent Auto 70.9 % (45-73); Platelet Count 239 X10*3/uL (160-400); Red Cell Distribution Width 13.4 % (11.0-16.0); SCAN SMEAR FLAG 1; White Blood Count 8.6 X10*3/uL (4.8-10.8)
[2023-02-11 08:45] LABS: Alanine Aminotransferase 19 U/L (0-40); Albumin Level 2.7 g/dL (3.5-5.0); Alkaline Phosphatase 260 U/L (39-117); Anion Gap 13 (12-20); Aspartate Amino Transferase 23 U/L (5-37); Bilirubin Total 0.4 mg/dL (0.0-1.0); Blood Urea Nitrogen 36 mg/dL (9-16); Calcium 8.6 mg/dL (8.4-10.2); Carbon Dioxide 22 mmol/L (22-29); Chloride 102 mmol/L (96-108); Creatinine Clr Calc Pharmacy 12.1; Estimated Glomerular Filt Rate 11; Glucose Fasting 100 mg/dL (60-99); Potassium 4.6 mmol/L (3.3-5.1); Sodium 132 mmol/L (135-145); Total Protein 7.3 g/dL (6.5-8.0)
--- NOTE | 2023-02-11 09:07 | MHC.SHP ---
Pre-Procedural Eval Section A Date of Service: 02/11/23 The patient is an INPATIENT: Yes Changes since office visit: Yes Patient answered all questions The History & Physical has been completed within 30 days and I have reviewed it.: Yes Section B Chief Complaint: Garry,Hyperkalemia Allergies: Allergies Allergy/AdvReac Type Severity Reaction Status Date / Time metformin AdvReac Unknown Verified 01/24/23 14:42 Plan I have reviewed the history and physical and performed a pertinent physical examination on my patient. No changes have occurred unless specified. Time Spent With Patient Time: Total time managing care of this patient today ____ minutes.
[2023-02-11 09:15] LABS: SLIDE REVIEW VERIFIED
--- NOTE | 2023-02-11 09:59 | P.CONAN_ITS ---
[facility] Active Problems Active Problems: All Active Problems (Updated 02/09/23 @ 00:03 by Jaylon Stoner) ESRD (end stage renal disease) (Acute) Anemia (Acute) Acute hyperkalemia (Acute) Hypoglycemia (Acute) Acute kidney injury superimposed on CKD (Acute) CKD (chronic kidney disease) stage 3, GFR 30-59 ml/min (Acute) Cocaine use disorder (Acute) Acalculous cholecystitis (Acute) Acute kidney injury superimposed on chronic kidney disease (Acute) Erectile dysfunction associated with type 2 diabetes mellitus (Acute) Benign prostatic hyperplasia (Acute) (HFpEF) heart failure with preserved ejection fraction (Acute) Osteomyelitis (Acute) CKD stage 3 due to type 2 diabetes mellitus (Acute) LIVE (iron deficiency anemia) (Acute) Hospital discharge follow-up (Acute) Status post below-knee amputation of left lower extremity (Acute) Elevated erythrocyte sedimentation rate (Acute) Toxic metabolic encephalopathy (Acute) Pneumonia (Acute) Acute hypoxemic respiratory failure (Acute) Nonhealing ulcer of left lower extremity (Acute) Diabetic foot infection (Acute) Cellulitis (Acute) Past Medical History Medical History Hypertension ESRD (end stage renal disease) CKD (chronic kidney disease) stage 3, GFR 30-59 ml/min Renal artery stenosis Anemia Uncontrolled hypertension Erectile dysfunction (HFpEF) heart failure with preserved ejection fraction Osteomyelitis CKD stage 3 due to type 2 diabetes mellitus LIVE (iron deficiency anemia) Hyperlipidemia associated with type 2 diabetes mellitus Type 2 diabetes mellitus Kidney disease High cholesterol HTN (hypertension) Diabetes PAD (peripheral artery disease) Family History Family History Other No family history of coronary artery disease Family history of problems with anesthesia: No Surgical History Surgical History Status post transmetatarsal amputation of left foot Hx of amputation History of amputation of right forefoot H/O shoulder surgery History of Problems with Anesthesia: No Social History Social History Household Members: None Housing: Apartment Do you presently have visiting nurse or other home services: Yes ([employer] ONLY) Alcohol intake: current Alcohol intake frequency: a few times a month Alcohol type: beer Comment: previously medicated with IV morphine Patient Tobacco Use Status: Never used Tobacco Tobacco use type: Cigarette Second Hand Smoke Exposure: No Use of substances other than those prescribed or required for medical reasons: Yes Substance Use Type: Crack/Cocaine Currently Displaying Signs/Symptoms of Drug Intoxication Withdrawal: No Have you been hit, kicked, punched, or otherwise hurt by someone within the past year? If so, by whom?: No Do you feel safe in your current relationship?: No Current Relationship Is there a partner from a previous relationship who is making you feel unsafe now?: No Are you made to feel afraid or neglected: No Are you DNR?: No Advance Directives: Yes Advance Directives Information Provided: No Advance Directives on File: Yes Advance Directives Date on File: 02/02/22 Do you have thoughts of harming others: None Do you have a plan to hurt others: No Plan Recently lost weight without trying: No Nutrition Risks: No Nutritional Risk Poor oral hygiene: No service: No Current occupational status: retired Meds Allergies Allergy/AdvReac Type Severity Reaction Status Date / Time metformin AdvReac Unknown Verified 01/24/23 14:42 Active Medications: Current Medications Acetaminophen (Acetaminophen 325 Mg Tablet) 650 mg PO Q6H PRN PRN Reason: mild pain Last Admin: 02/10/23 15:40 Dose: 650 mg Albuterol Sulfate (Albuterol Sulfate 90 Mcg 8 Gm Inhaler) 2 puff INHALE Q4H PRN PRN Reason: Wheezing Amoxicillin/Clavulanate Potassium (Amoxicillin/Potassium Clav 250 Mg Tablet) 250 mg PO Q12H [facility] Last Admin: 02/10/23 20:04 Dose: 250 mg Aspirin (Aspirin 81 Mg Tab.Chew) 81 mg PO DAILY [facility] Last Admin: 02/10/23 09:43 Dose: 81 mg Atorvastatin Calcium (Atorvastatin Calcium 80 Mg Tablet) 80 mg PO BEDTIME [facility] Last Admin: 02/10/23 20:04 Dose: 80 mg Carvedilol (Carvedilol 25 Mg Tablet) 25 mg PO BID [facility]; Protocol Last Admin: 02/10/23 20:04 Dose: 25 mg Dextrose (Dextrose 50 % 25 Gm/50 Ml Syringe) 25 gm IVPUSH Q15M PRN; Protocol PRN Reason: per Hypoglycemia Standing Ord. Docusate Sodium (Docusate Sodium 100 Mg Capsule) 100 mg PO BEDTIME [facility] Last Admin: 02/10/23 20:04 Dose: 100 mg Ezetimibe (Ezetimibe 10 Mg Tablet) 10 mg PO DAILY [facility] Last Admin: 02/10/23 09:43 Dose: 10 mg Gabapentin (Gabapentin 300 Mg Capsule) 300 mg PO DAILY [facility] Last Admin: 02/10/23 09:43 Dose: 300 mg Glucose (Glucose Gel 15 Gm Gel..Gram.) 15 gm PO Q15M PRN; Protocol PRN Reason: per Hypoglycemia Standing Ord. Guaifenesin/Codeine Phosphate (Guaifen/Codeine Sf 200/20/10ml 10 Ml Liquid) 10 ml PO Q6H PRN PRN Reason: cough Last Admin: 02/11/23 04:04 Dose: 10 ml Hydralazine HCl (Hydralazine Hcl 50 Mg Tablet) 100 mg PO TID [facility]; Protocol Last Admin: 02/10/23 20:04 Dose: 100 mg Insulin Human Lispro (Insulin Lispro 100 Unit/Ml 3 Ml Vial) 0 unit SUBCUT QIDACHS [facility]; Protocol Last Admin: 02/11/23 08:35 Dose: Not Given Isosorbide Mononitrate (Isosorbide Mononitrate 60 Mg Tab.Er.24h) 60 mg PO DAILY [facility]; Protocol Last Admin: 02/10/23 09:43 Dose: 60 mg Nifedipine (Nifedipine Er 30 Mg Tab.Er.24) 90 mg PO DAILY [facility]; Protocol Last Admin: 02/10/23 09:43 Dose: 90 mg Sertraline HCl (Sertraline Hcl 50 Mg Tablet) 50 mg PO DAILY [facility] Last Admin: 02/10/23 09:43 Dose: 50 mg Sodium Chloride (0.9 % Sodium Chloride Flush 3 Ml Syringe) 3 ml IVFLUSH QSHIFT [facility] Last Admin: 02/11/23 08:35 Dose: Not Given Tamsulosin HCl (Tamsulosin Hcl 0.4 Mg Capsule) 0.4 mg PO BEDTIME [facility] Last Admin: 02/10/23 20:04 Dose: 0.4 mg Home Medications Medication Instructions Recorded Confirmed Last Taken Type sertraline 50 mg tablet 50 mg PO DAILY 04/27/21 02/06/23 01/21/23 History albuterol sulfate 90 mcg/actuation 2 puff inhalation Q4H PRN Wheezing 01/13/23 02/06/23 Unknown History aerosol inhaler (Ventolin HFA) aspirin 81 mg chewable tablet 1 tab PO DAILY 01/13/23 02/06/23 01/21/23 History atorvastatin 80 mg tablet 80 mg PO BEDTIME 01/13/23 02/06/23 01/20/23 History docusate sodium 100 mg capsule 100 mg PO BEDTIME 01/13/23 02/06/23 01/20/23 History ezetimibe 10 mg tablet 10 mg PO DAILY 01/13/23 02/06/23 01/21/23 History flash glucose scanning reader 01/13/23 01/21/23 Unknown History (FreeStyle Daniel 2 [place]) flash glucose sensor (FreeStyle 01/13/23 01/21/23 Unknown History Daniel 2 Sensor kit) fluticasone propionate 50 2 spray intranasal DAILY PRN 01/13/23 02/06/23 Unknown History mcg/actuation nasal Congestion spray,suspension furosemide 40 mg tablet 40 mg PO BID 01/13/23 02/06/23 01/21/23 History gabapentin 300 mg capsule 300 mg PO DAILY 01/13/23 02/06/23 01/21/23 History hydralazine 50 mg tablet 100 mg PO TID 01/13/23 02/06/23 01/21/23 History isosorbide mononitrate 60 mg 60 mg PO DAILY 01/13/23 02/06/23 01/21/23 History tablet,extended release 24 hr tamsulosin 0.4 mg capsule 0.4 mg PO BEDTIME 01/13/23 02/06/23 01/20/23 History cholecalciferol (vitamin D3) 1,250 50,000 unit PO BEVERLY 01/21/23 02/06/23 01/20/23 History mcg (50,000 unit) capsule Exam Height,Weight and Vital Signs: h Height 5 ft 6 in Weight 71.5 kg Last Vital Signs Temp 98.6 F 02/11/23 08:39 Pulse 66 02/11/23 08:39 Resp 16 02/11/23 08:39 BP 154/89 H 02/11/23 08:39 Pulse Ox 95 02/11/23 08:39 O2 Del Method Nasal Cannula 02/11/23 08:39 O2 Flow Rate 2 02/11/23 08:39 Pertinent Lab Results Pertinent Lab Results: Laboratory Tests 02/06/23 02/06/23 02/06/23 16:20 17:09 17:50 WBC 7.4 RBC 2.07 L Hgb 6.2 L* D Hct 20.1 L* MCV 97.1 MCH 30.0 MCHC 30.8 L RDW 13.1 Plt Count 345 D MPV 10.0 Immature Gran % (Auto) 0.4 Neut % (Auto) 73.9 H Lymph % (Auto) 10.8 L Wilkinson % (Auto) 12.8 H Eos % (Auto) 1.7 Baso % (Auto) 0.4 Lymph # (Auto) 0.8 L [place]kinson # (Auto) 1.0 Eos # (Auto) 0.1 Baso # (Auto) 0.0 Abs Immat Gran (auto) 0.03 Absolute Neuts (auto) 5.5 Absolute Nucleated RBC 0.000 Nucleated RBC % (auto) 0.0 Smear Tech's Comments PT INR APTT Sodium 137 Potassium 6.0 H* D Chloride 113 H Carbon Dioxide 16 L Anion Gap 14 BUN 90 H Creatinine 8.28 H* Estim Creat Clear Calc 7.8 Estimated GFR 7 POC Glucose 85 90 Random Glucose 75 Fasting Glucose Calcium 8.8 Magnesium Total Bilirubin 0.2 Direct Bilirubin < 0.2 AST 31 ALT 34 Alkaline Phosphatase 307 H Total Protein 7.8 Albumin 2.9 L Urine Color Urine Appearance Urine pH Ur Specific [place] Urine Protein Urine Glucose (UA) Urine Ketones Urine Blood Urine Nitrite Ur Leukocyte Esterase Urine RBC Urine WBC Ur Squamous Epith Cells Urine Bacteria Hyaline Casts Stool Occult Blood Urine Opiates Screen Urine Fentanyl Screen Ur Barbiturates Screen Ur Phencyclidine Scrn Ur Amphetamines Screen U Benzodiazepines Scrn Urine Cocaine Screen U Marijuana (THC) Screen Ethyl Alcohol < 10 Blood Type Antibody Screen Crossmatch 02/06/23 02/06/23 02/06/23 19:11 20:34 20:37 WBC RBC Hgb Hct MCV MCH MCHC RDW Plt Count MPV Immature Gran % (Auto) Neut % (Auto) Lymph % (Auto) Wilkinson % (Auto) Eos % (Auto) Baso % (Auto) Lymph # (Auto) Wilkinson # (Auto) Eos # (Auto) Baso # (Auto) Abs Immat Gran (auto) Absolute Neuts (auto) Absolute Nucleated RBC Nucleated RBC % (auto) Smear Tech's Comments PT INR APTT Sodium Potassium Chloride Carbon Dioxide Anion Gap BUN Creatinine Estim Creat Clear Calc Estimated GFR POC Glucose 62 46 L* Random Glucose Fasting Glucose Calcium Magnesium Total Bilirubin Direct Bilirubin AST ALT Alkaline Phosphatase Total Protein Albumin Urine Color Urine Appearance Urine pH Ur Specific [place] Urine Protein Urine Glucose (UA) Urine Ketones Urine Blood Urine Nitrite Ur Leukocyte Esterase Urine RBC Urine WBC Ur Squamous Epith Cells Urine Bacteria Hyaline Casts Stool Occult Blood POSITIVE Urine Opiates Screen Urine Fentanyl Screen Ur Barbiturates Screen Ur Phencyclidine Scrn Ur Amphetamines Screen U Benzodiazepines Scrn Urine Cocaine Screen U Marijuana (THC) Screen Ethyl Alcohol Blood Type Antibody Screen Crossmatch 02/06/23 02/06/23 02/07/23 20:57 21:04 00:01 WBC RBC Hgb Hct MCV MCH MCHC RDW Plt Count MPV Immature Gran % (Auto) Neut % (Auto) Lymph % (Auto) Wilkinson % (Auto) Eos % (Auto) Baso % (Auto) Lymph # (Auto) Wilkinson # (Auto) Eos # (Auto) Baso # (Auto) Abs Immat Gran (auto) Absolute Neuts (auto) Absolute Nucleated RBC Nucleated RBC % (auto) Smear Tech's Comments PT INR APTT Sodium Potassium Chloride Carbon Dioxide Anion Gap BUN Creatinine Estim Creat Clear Calc Estimated GFR POC Glucose 83 Random Glucose Fasting Glucose Calcium Magnesium Total Bilirubin Direct Bilirubin AST ALT Alkaline Phosphatase Total Protein Albumin Urine Color Yellow Urine Appearance Cloudy Urine pH 5.0 Ur Specific [place] 1.015 Urine Protein 300 (3+) H Urine Glucose (UA) Negative Urine Ketones Negative Urine Blood Negative Urine Nitrite Negative Ur Leukocyte Esterase Negative Urine RBC 0-2 Urine WBC 6-10 H Ur Squamous Epith Cells 0-2 Urine Bacteria None Seen Hyaline Casts 3-5 Stool Occult Blood Urine Opiates Screen Not Detected Urine Fentanyl Screen Not Detected Ur Barbiturates Screen Not Detected Ur Phencyclidine Scrn Not Detected Ur Amphetamines Screen Not Detected U Benzodiazepines Scrn Not Detected Urine Cocaine Screen Not Detected U Marijuana (THC) Screen Not Detected Ethyl Alcohol Blood Type O Positive Antibody Screen NEGATIVE Crossmatch See Detail 02/07/23 02/07/23 02/07/23 00:58 03:36 08:03 WBC RBC Hgb Hct MCV MCH MCHC RDW Plt Count MPV Immature Gran % (Auto) Neut % (Auto) Lymph % (Auto) Wilkinson % (Auto) Eos % (Auto) Baso % (Auto) Lymph # (Auto) Wilkinson # (Auto) Eos # (Auto) Baso # (Auto) Abs Immat Gran (auto) Absolute Neuts (auto) Absolute Nucleated RBC Nucleated RBC % (auto) Smear Tech's Comments PT INR APTT Sodium Potassium Chloride Carbon Dioxide Anion Gap BUN Creatinine Estim Creat Clear Calc Estimated GFR POC Glucose 70 87 98 Random Glucose Fasting Glucose Calcium Magnesium Total Bilirubin Direct Bilirubin AST ALT Alkaline Phosphatase Total Protein Albumin Urine Color Urine Appearance Urine pH Ur Specific [place] Urine Protein Urine Glucose (UA) Urine Ketones Urine Blood Urine Nitrite Ur Leukocyte Esterase Urine RBC Urine WBC Ur Squamous Epith Cells Urine Bacteria Hyaline Casts Stool Occult Blood Urine Opiates Screen Urine Fentanyl Screen Ur Barbiturates Screen Ur Phencyclidine Scrn Ur Amphetamines Screen U Benzodiazepines Scrn Urine Cocaine Screen U Marijuana (THC) Screen Ethyl Alcohol Blood Type Antibody Screen Crossmatch 02/07/23 02/07/23 02/07/23 11:23 11:44 11:44 WBC 6.1 RBC 2.24 L Hgb 6.8 L* Hct 21.5 L MCV 96.0 MCH 30.4 MCHC 31.6 RDW 13.5 Plt Count 301 MPV 10.2 Immature Gran % (Auto) Neut % (Auto) Lymph % (Auto) Wilkinson % (Auto) Eos % (Auto) Baso % (Auto) Lymph # (Auto) Wilkinson # (Auto) Eos # (Auto) Baso # (Auto) Abs Immat Gran (auto) Absolute Neuts (auto) Absolute Nucleated RBC 0.000 Nucleated RBC % (auto) 0.0 Smear Tech's Comments PT 11.9 Cancelled INR 1.0 APTT Sodium Potassium Chloride Carbon Dioxide Anion Gap BUN Creatinine Estim Creat Clear Calc Estimated GFR POC Glucose 84 Random Glucose Fasting Glucose Calcium Magnesium Total Bilirubin Direct Bilirubin AST ALT Alkaline Phosphatase Total Protein Albumin Urine Color Urine Appearance Urine pH Ur Specific [place] Urine Protein Urine Glucose (UA) Urine Ketones Urine Blood Urine Nitrite Ur Leukocyte Esterase Urine RBC Urine WBC Ur Squamous Epith Cells Urine Bacteria Hyaline Casts Stool Occult Blood Urine Opiates Screen Urine Fentanyl Screen Ur Barbiturates Screen Ur Phencyclidine Scrn Ur Amphetamines Screen U Benzodiazepines Scrn Urine Cocaine Screen U Marijuana (THC) Screen Ethyl Alcohol Blood Type Antibody Screen Crossmatch 02/07/23 02/07/23 02/07/23 11:44 11:44 11:44 WBC RBC Hgb Hct MCV MCH MCHC RDW Plt Count MPV Immature Gran % (Auto) Neut % (Auto) Lymph % (Auto) Wilkinson % (Auto) Eos % (Auto) Baso % (Auto) Lymph # (Auto) Wilkinson # (Auto) Eos # (Auto) Baso # (Auto) Abs Immat Gran (auto) Absolute Neuts (auto) Absolute Nucleated RBC Nucleated RBC % (auto) Smear Tech's Comments PT INR Cancelled APTT 36.6 H D Sodium Cancelled 136 Potassium Cancelled 5.7 H Chloride Cancelled Carbon Dioxide Anion Gap BUN Creatinine Estim Creat Clear Calc Estimated GFR POC Glucose Random Glucose Fasting Glucose Calcium Magnesium Total Bilirubin Direct Bilirubin AST ALT Alkaline Phosphatase Total Protein Albumin Urine Color Urine Appearance Urine pH Ur Specific [place] Urine Protein Urine Glucose (UA) Urine Ketones Urine Blood Urine Nitrite Ur Leukocyte Esterase Urine RBC Urine WBC Ur Squamous Epith Cells Urine Bacteria Hyaline Casts Stool Occult Blood Urine Opiates Screen Urine Fentanyl Screen Ur Barbiturates Screen Ur Phencyclidine Scrn Ur Amphetamines Screen U Benzodiazepines Scrn Urine Cocaine Screen U Marijuana (THC) Screen Ethyl Alcohol Blood Type Antibody Screen Crossmatch 02/07/23 02/07/23 02/07/23 11:44 11:44 11:44 WBC RBC Hgb Hct MCV MCH MCHC RDW Plt Count MPV Immature Gran % (Auto) Neut % (Auto) Lymph % (Auto) [place] % (Auto) Eos % (Auto) Baso % (Auto) Lymph # (Auto) [place] # (Auto) Eos # (Auto) Baso # (Auto) Abs Immat Gran (auto) Absolute Neuts (auto) Absolute Nucleated RBC Nucleated RBC % (auto) Smear Tech's Comments PT INR APTT Sodium Potassium Chloride 111 H Carbon Dioxide Cancelled 17 L Anion Gap Cancelled 14 BUN Cancelled Creatinine Estim Creat Clear Calc Estimated GFR POC Glucose Random Glucose Fasting Glucose Calcium Magnesium Total Bilirubin Direct Bilirubin AST ALT Alkaline Phosphatase Total Protein Albumin Urine Color Urine Appearance Urine pH Ur Specific [place] Urine Protein Urine Glucose (UA) Urine Ketones Urine Blood Urine Nitrite Ur Leukocyte Esterase Urine RBC Urine WBC Ur Squamous Epith Cells Urine Bacteria Hyaline Casts Stool Occult Blood Urine Opiates Screen Urine Fentanyl Screen Ur Barbiturates Screen Ur Phencyclidine Scrn Ur Amphetamines Screen U Benzodiazepines Scrn Urine Cocaine Screen U Marijuana (THC) Screen Ethyl Alcohol Blood Type Antibody Screen Crossmatch 02/07/23 02/07/23 02/07/23 11:44 11:44 11:44 WBC RBC Hgb Hct MCV MCH MCHC RDW Plt Count MPV Immature Gran % (Auto) Neut % (Auto) Lymph % (Auto) [place]kinson % (Auto) Eos % (Auto) Baso % (Auto) Lymph # (Auto) [place] # (Auto) Eos # (Auto) Baso # (Auto) Abs Immat Gran (auto) Absolute Neuts (auto) Absolute Nucleated RBC Nucleated RBC % (auto) Smear Tech's Comments PT INR APTT Sodium Potassium Chloride Carbon Dioxide Anion Gap BUN 92 H Creatinine Cancelled 8.27 H* Estim Creat Clear Calc Cancelled 7.8 Estimated GFR Cancelled POC Glucose Random Glucose Fasting Glucose Calcium Magnesium Total Bilirubin Direct Bilirubin AST ALT Alkaline Phosphatase Total Protein Albumin Urine Color Urine Appearance Urine pH Ur Specific [place] Urine Protein Urine Glucose (UA) Urine Ketones Urine Blood Urine Nitrite Ur Leukocyte Esterase Urine RBC Urine WBC Ur Squamous Epith Cells Urine Bacteria Hyaline Casts Stool Occult Blood Urine Opiates Screen Urine Fentanyl Screen Ur Barbiturates Screen Ur Phencyclidine Scrn Ur Amphetamines Screen U Benzodiazepines Scrn Urine Cocaine Screen U Marijuana (THC) Screen Ethyl Alcohol Blood Type Antibody Screen Crossmatch 02/07/23 02/07/23 02/07/23 11:44 11:44 20:49 WBC RBC Hgb Hct MCV MCH MCHC RDW Plt Count MPV Immature Gran % (Auto) Neut % (Auto) Lymph % (Auto) Wilkinson % (Auto) Eos % (Auto) Baso % (Auto) Lymph # (Auto) [place]kinson # (Auto) Eos # (Auto) Baso # (Auto) Abs Immat Gran (auto) Absolute Neuts (auto) Absolute Nucleated RBC Nucleated RBC % (auto) Smear Tech's Comments PT INR APTT Sodium Potassium Chloride Carbon Dioxide Anion Gap BUN Creatinine Estim Creat Clear Calc Estimated GFR 7 POC Glucose 142 H Random Glucose Cancelled Fasting Glucose 87 Calcium Cancelled 8.7 Magnesium 2.3 Total Bilirubin 0.2 Direct Bilirubin < 0.2 AST 25 ALT 28 Alkaline Phosphatase 257 H Total Protein 7.1 Albumin 2.6 L Urine Color Urine Appearance Urine pH Ur Specific [place] Urine Protein Urine Glucose (UA) Urine Ketones Urine Blood Urine Nitrite Ur Leukocyte Esterase Urine RBC Urine WBC Ur Squamous Epith Cells Urine Bacteria Hyaline Casts Stool Occult Blood Urine Opiates Screen Urine Fentanyl Screen Ur Barbiturates Screen Ur Phencyclidine Scrn Ur Amphetamines Screen U Benzodiazepines Scrn Urine Cocaine Screen U Marijuana (THC) Screen Ethyl Alcohol Blood Type Antibody Screen Crossmatch 02/08/23 02/08/23 02/08/23 06:38 06:39 07:52 WBC 7.2 RBC 2.53 L Hgb 7.6 L Hct 22.9 L MCV 90.5 D MCH 30.0 MCHC 33.2 RDW 14.1 Plt Count 292 MPV 10.7 Immature Gran % (Auto) Neut % (Auto) Lymph % (Auto) [place]kinson % (Auto) Eos % (Auto) Baso % (Auto) Lymph # (Auto) [place] # (Auto) Eos # (Auto) Baso # (Auto) Abs Immat Gran (auto) Absolute Neuts (auto) Absolute Nucleated RBC 0.000 Nucleated RBC % (auto) 0.0 Smear Tech's Comments PT INR APTT Sodium 137 Potassium 4.8 Chloride 105 Carbon Dioxide 22 Anion Gap 15 BUN 63 H Creatinine 5.92 H* Estim Creat Clear Calc 10.9 Estimated GFR 10 POC Glucose 272 H Random Glucose 185 H Fasting Glucose Calcium 8.1 L D Magnesium Total Bilirubin Direct Bilirubin AST ALT Alkaline Phosphatase Total Protein Albumin Urine Color Urine Appearance Urine pH Ur Specific [place] Urine Protein Urine Glucose (UA) Urine Ketones Urine Blood Urine Nitrite Ur Leukocyte Esterase Urine RBC Urine WBC Ur Squamous Epith Cells Urine Bacteria Hyaline Casts Stool Occult Blood Urine Opiates Screen Urine Fentanyl Screen Ur Barbiturates Screen Ur Phencyclidine Scrn Ur Amphetamines Screen U Benzodiazepines Scrn Urine Cocaine Screen U Marijuana (THC) Screen Ethyl Alcohol Blood Type Antibody Screen Crossmatch 02/08/23 02/08/23 02/08/23 12:47 16:39 20:22 WBC RBC Hgb Hct MCV MCH MCHC RDW Plt Count MPV Immature Gran % (Auto) Neut % (Auto) Lymph % (Auto) Wilkinson % (Auto) Eos % (Auto) Baso % (Auto) Lymph # (Auto) [place]kinson # (Auto) Eos # (Auto) Baso # (Auto) Abs Immat Gran (auto) Absolute Neuts (auto) Absolute Nucleated RBC Nucleated RBC % (auto) Smear Tech's Comments PT INR APTT Sodium Potassium Chloride Carbon Dioxide Anion Gap BUN Creatinine Estim Creat Clear Calc Estimated GFR POC Glucose 128 H 204 H 78 Random Glucose Fasting Glucose Calcium Magnesium Total Bilirubin Direct Bilirubin AST ALT Alkaline Phosphatase Total Protein Albumin Urine Color Urine Appearance Urine pH Ur Specific [place] Urine Protein Urine Glucose (UA) Urine Ketones Urine Blood Urine Nitrite Ur Leukocyte Esterase Urine RBC Urine WBC Ur Squamous Epith Cells Urine Bacteria Hyaline Casts Stool Occult Blood Urine Opiates Screen Urine Fentanyl Screen Ur Barbiturates Screen Ur Phencyclidine Scrn Ur Amphetamines Screen U Benzodiazepines Scrn Urine Cocaine Screen U Marijuana (THC) Screen Ethyl Alcohol Blood Type Antibody Screen Crossmatch 02/09/23 02/09/23 02/09/23 06:33 07:38 11:39 WBC 8.1 RBC 2.54 L Hgb 7.5 L Hct 23.0 L MCV 90.6 MCH 29.5 MCHC 32.6 RDW 13.6 Plt Count 272 MPV 10.6 Immature Gran % (Auto) 0.5 H Neut % (Auto) 71.1 Lymph % (Auto) 9.3 L [place]kinson % (Auto) 17.1 H Eos % (Auto) 1.4 Baso % (Auto) 0.6 Lymph # (Auto) 0.8 L [place] # (Auto) 1.4 H Eos # (Auto) 0.1 Baso # (Auto) 0.1 Abs Immat Gran (auto) 0.04 H Absolute Neuts (auto) 5.7 Absolute Nucleated RBC 0.000 Nucleated RBC % (auto) 0.0 Smear Tech's Comments PT INR APTT Sodium 135 Potassium 4.6 Chloride 105 Carbon Dioxide 22 Anion Gap 13 BUN 43 H Creatinine 4.99 H* Estim Creat Clear Calc 12.9 Estimated GFR 12 POC Glucose 132 H 160 H Random Glucose Fasting Glucose 155 H Calcium 8.0 L Magnesium Total Bilirubin 0.3 Direct Bilirubin AST 29 ALT 23 Alkaline Phosphatase 220 H Total Protein 7.4 Albumin 2.8 L Urine Color Urine Appearance Urine pH Ur Specific [place] Urine Protein Urine Glucose (UA) Urine Ketones Urine Blood Urine Nitrite Ur Leukocyte Esterase Urine RBC Urine WBC Ur Squamous Epith Cells Urine Bacteria Hyaline Casts Stool Occult Blood Urine Opiates Screen Urine Fentanyl Screen Ur Barbiturates Screen Ur Phencyclidine Scrn Ur Amphetamines Screen U Benzodiazepines Scrn Urine Cocaine Screen U Marijuana (THC) Screen Ethyl Alcohol Blood Type Antibody Screen Crossmatch 02/09/23 02/09/23 02/10/23 16:11 20:50 06:22 WBC 9.3 RBC 2.60 L Hgb 7.9 L Hct 24.9 L MCV 95.8 D MCH 30.4 MCHC 31.7 RDW 13.4 Plt Count 261 MPV 10.7 Immature Gran % (Auto) 0.6 H Neut % (Auto) 78.0 H Lymph % (Auto) 6.4 L [place]kinson % (Auto) 13.8 H Eos % (Auto) 0.6 Baso % (Auto) 0.6 Lymph # (Auto) 0.6 L [place] # (Auto) 1.3 H Eos # (Auto) 0.1 Baso # (Auto) 0.1 Abs Immat Gran (auto) 0.06 H Absolute Neuts (auto) 7.3 Absolute Nucleated RBC 0.000 Nucleated RBC % (auto) 0.0 Smear Tech's Comments PT INR APTT Sodium 133 L Potassium 4.3 Chloride 103 Carbon Dioxide 21 L Anion Gap 13 BUN 23 H Creatinine 4.07 H* Estim Creat Clear Calc 15.8 Estimated GFR 15 POC Glucose 139 H 180 H Random Glucose Fasting Glucose 96 Calcium 8.6 D Magnesium Total Bilirubin 0.4 Direct Bilirubin AST 27 ALT 21 Alkaline Phosphatase 217 H Total Protein 7.7 Albumin 2.8 L Urine Color Urine Appearance Urine pH Ur Specific [place] Urine Protein Urine Glucose (UA) Urine Ketones Urine Blood Urine Nitrite Ur Leukocyte Esterase Urine RBC Urine WBC Ur Squamous Epith Cells Urine Bacteria Hyaline Casts Stool Occult Blood Urine Opiates Screen Urine Fentanyl Screen Ur Barbiturates Screen Ur Phencyclidine Scrn Ur Amphetamines Screen U Benzodiazepines Scrn Urine Cocaine Screen U Marijuana (THC) Screen Ethyl Alcohol Blood Type Antibody Screen Crossmatch 02/10/23 02/10/23 02/10/23 07:25 11:43 16:00 WBC RBC Hgb Hct MCV MCH MCHC RDW Plt Count MPV Immature Gran % (Auto) Neut % (Auto) Lymph % (Auto) [place] % (Auto) Eos % (Auto) Baso % (Auto) Lymph # (Auto) [place] # (Auto) Eos # (Auto) Baso # (Auto) Abs Immat Gran (auto) Absolute Neuts (auto) Absolute Nucleated RBC Nucleated RBC % (auto) Smear Tech's Comments PT INR APTT Sodium Potassium Chloride Carbon Dioxide Anion Gap BUN Creatinine Estim Creat Clear Calc Estimated GFR POC Glucose 89 204 H 149 H Random Glucose Fasting Glucose Calcium Magnesium Total Bilirubin Direct Bilirubin AST ALT Alkaline Phosphatase Total Protein Albumin Urine Color Urine Appearance Urine pH Ur Specific [place] Urine Protein Urine Glucose (UA) Urine Ketones Urine Blood Urine Nitrite Ur Leukocyte Esterase Urine RBC Urine WBC Ur Squamous Epith Cells Urine Bacteria Hyaline Casts Stool Occult Blood Urine Opiates Screen Urine Fentanyl Screen Ur Barbiturates Screen Ur Phencyclidine Scrn Ur Amphetamines Screen U Benzodiazepines Scrn Urine Cocaine Screen U Marijuana (THC) Screen Ethyl Alcohol Blood Type Antibody Screen Crossmatch 02/10/23 02/11/23 02/11/23 20:05 07:29 07:55 WBC 8.6 RBC 2.40 L Hgb 7.0 L* Hct 22.3 L MCV 92.9 MCH 29.2 MCHC 31.4 RDW 13.4 Plt Count 239 MPV 10.7 Immature Gran % (Auto) 0.8 H Neut % (Auto) 70.9 Lymph % (Auto) 7.5 L [place] % (Auto) 20.0 H Eos % (Auto) 0.4 Baso % (Auto) 0.4 Lymph # (Auto) 0.6 L [place] # (Auto) 1.7 H Eos # (Auto) 0.0 Baso # (Auto) 0.0 Abs Immat Gran (auto) 0.07 H Absolute Neuts (auto) 6.1 Absolute Nucleated RBC 0.000 Nucleated RBC % (auto) 0.0 Smear Tech's Comments VERIFIED PT INR APTT Sodium 132 L Potassium 4.6 Chloride 102 Carbon Dioxide 22 Anion Gap 13 BUN 36 H Creatinine 5.32 H* Estim Creat Clear Calc 12.1 Estimated GFR 11 POC Glucose 180 H 100 Random Glucose Fasting Glucose 100 H Calcium 8.6 Magnesium Total Bilirubin 0.4 Direct Bilirubin AST 23 ALT 19 Alkaline Phosphatase 260 H Total Protein 7.3 Albumin 2.7 L Urine Color Urine Appearance Urine pH Ur Specific [place] Urine Protein Urine Glucose (UA) Urine Ketones Urine Blood Urine Nitrite Ur Leukocyte Esterase Urine RBC Urine WBC Ur Squamous Epith Cells Urine Bacteria Hyaline Casts Stool Occult Blood Urine Opiates Screen Urine Fentanyl Screen Ur Barbiturates Screen Ur Phencyclidine Scrn Ur Amphetamines Screen U Benzodiazepines Scrn Urine Cocaine Screen U Marijuana (THC) Screen Ethyl Alcohol Blood Type Antibody Screen Crossmatch Airway Mallampati Class: IV TM Dist: >3cm Neck ROM: Full Partial: Upper Heart: RRR Lungs: CT Assessment and Plan Assessment Anesthesia Assessment: Anesthesia Plan Discussed Final Anesthetic Review Family History of Problems with Anesthesia: No History of Problems with Anesthesia: No ASA Class: III Final Preanesthetic Review: Meds/Allgs Chart Reviewed, Consent Obtained/Reviewed and Anes Risks/Benef Reviewed Patient Risk: Intermediate Procedure Risk: Low Anesthetic Plan Anesthetic Plan: GA Disposition: Standard PACU
--- NOTE | 2023-02-11 11:13 | MHC.CM.PN ---
EMR reviewed and per MD rounds, pt is not medically cleared due pending fistula placement today. CM will continue to follow.
--- NOTE | 2023-02-11 12:18 | W.PM.OPN ---
Operative Note Operative Note Date of Service: 02/11/23 Narrative: Operative note by [facility] Preoperative diagnosis: End-stage renal disease Postoperative diagnosis: Same Procedure: Left arm arterial venous fistula creation (brachiocephalic) Surgeon:Lyle Topete M.D. Home Care Scheduler: None Anesthesia: General Specimens: 0 Drains: None Estimated blood loss: Minimal Indications: 67-year-old gentleman who has progressed to end-stage renal disease now presents for permanent dialysis access The patient has signed the informed consent after reviewing risks, complications, benefits, and alternatives previously discussed with the patient. The patient was given the opportunity to ask any additional questions or voice any concerns. All questions were answered to the patient's satisfaction. Procedure in detail: Patient was brought to the operating room prior to which a time-out was called for patient identification and site verification left arm was prepped and draped in standard surgical fashion prior to prepping the cephalic vein and the brachial artery were mapped out under ultrasound guidance. Once this was accomplished the arm was prepped and draped in standard surgical fashion. We made a transverse incision approximately 2 finger breaths above the antecubital fossa. We were then able to identify the cephalic vein and this was isolated with silastic loops in a similar fashion we were able to identify the brachial artery and proximal and distal silastic loops were placed there as well. We then went back on to the cephalic vein and skeletonize this to ensure that this would have appropriate reach. At this time 3000 units of systemic heparin wears administered. We then ligated the cephalic vein and is most distal portion. We then brought this over and marked this. We speculated this and we then isolated out the brachial artery we obtained proximal distal control using 11 blade we made an arteriotomy. We widened this with Bartlett scissors. Using 6 0 Prolene we circumferentially anastomosed. Prior to closure we flushed this clear. We then reestablished flow. Once this was all complete adequate hemostasis was achieved. Of note the vein was smaller in caliber than anticipated and it appeared to be sclerotic at the more proximal portion. He was extremely pulsatile after putting it together. There was a pulse in the fistula. Once this was all complete we obtained adequate hemostasis. Deep layer was reapproximated using 2 0 Polysorb superficial layer with a 4-0 Monocryl in a running subcuticular manner. Sterile dressing were applied. At the end the case sponge instrument counts were correct. Patient tolerated the procedure well. Returned to recovery with stable vitals. This note is constructed using voice recognition software. While every effort has been made to ensure accuracy, household chores errors may have been included. Thank you for allowing me to participate in the care of your patient. Yours sincerely, Lyle Topete MD, FACS, R.P.V.I.
[2023-02-11 12:25] LABS: Glucose, Whole Blood 80 mg/dL (60-115)
[2023-02-11] MEDS: Sertraline HCL 50 MG TABLET PO (12:35)
[2023-02-11] MEDS: Amoxicillin/Potassium Clav 250 MG TABLET PO ×2 (12:35→20:26)
[2023-02-11] MEDS: Aspirin 81 MG TAB.CHEW PO (12:35)
[2023-02-11] MEDS: Isosorbide Mononitrate 60 MG TAB.ER.24H PO (12:35)
[2023-02-11] MEDS: carvediloL 25 MG TABLET PO ×2 (12:36→20:25)
[2023-02-11] MEDS: Gabapentin 300 MG CAPSULE PO (12:36)
[2023-02-11] MEDS: NIFEdipine ER 30 MG TAB.ER.24 90 MG PO (12:36)
[2023-02-11] MEDS: Ezetimibe 10 MG TABLET PO (12:36)
--- NOTE | 2023-02-11 13:31 | HO.WOUND ---
Wound Consult: Initial 67yr old male admitted to [facility] on?02/06/23 20:00 - See progress notes and H&P for detailed history. Wound consult placed for Left buttock assessment. Left Sacrum Etiology: MASD (Moisture Associated Skin Damage with friction) Measurements: unable to appreciate wound size due to triad adherence Wound Bed: appears friction with scattered areas of partial thickness tissue loss Drainage / Odor: None noted Edges: ? irregular Ritika wound: ? Mirrored hyperpigmentation noted along gluteal fold consistent with Moisture and not pressure No Induration, No Fluctuance, No Warmth Noted Pain: Pt denies pain and or tenderness Goals of Treatment: Moist wound healing and to protect from friction and moisture Recommendations: 1. Turn and Reposition every 2 hours and as needed for patient comfort. 2. Off Load all bony prominences with use of pillows. 3. Monitor for incontinence and moisture control. 4. Provide adequate and supplemental nutrition. 5. Order low air loss mattress. 6. Maintain blood glucose levels per Providers orders. 7. Sacrum - Off Load Pressure - Cleanse with PH balance spray or wipes, pat dry. ?Apply thin layer of Triad to wound bed - only pat and dab no scrub and rub when soiling occurs. Reapply thin layer PRN after each episode of incontinence. May cover with Foam dressing if pt tolerates. Re-consult wound care Nurse for wound deterioration or wound changes.
--- NOTE | 2023-02-11 16:07 | PM.PNNEP ---
Subjective Subjective Date of Service: 02/11/23 Interval history: Seen and examined, events noted Physical Exam Vital Signs: Vital Signs: Last Vital Signs Temp 98.1 F 02/11/23 15:25 Pulse 60 02/11/23 15:25 Resp 20 02/11/23 15:25 BP 126/71 02/11/23 15:25 Pulse Ox 92 02/11/23 15:25 O2 Del Method Room Air 02/11/23 15:25 O2 Flow Rate 3 02/11/23 11:45 BMI result Body Mass Index 25.4 Const: General: cooperative, no acute distress, alert and awake HEENT: Head: Yes normocephalic and Yes atraumatic Neck: Neck: Yes supple Resp: Auscultation: clear to auscultation bilaterally and diminished lung sounds Cardio: Rate: regular rate Rhythm: regular rhythm Heart sounds: S1 normal heart sound present and S2 normal heart sound present GI: Palpation (GI): Soft to palpation and nontender Extrem: General: No edema Objective Data Labs 02/11/23 07:29 02/11/23 07:29 Labs: Laboratory Results - last 24 hr 02/10/23 02/11/23 02/11/23 20:05 07:29 07:55 WBC 8.6 RBC 2.40 L Hgb 7.0 L* Hct 22.3 L MCV 92.9 MCH 29.2 MCHC 31.4 RDW 13.4 Plt Count 239 MPV 10.7 Immature Gran % (Auto) 0.8 H Neut % (Auto) 70.9 Lymph % (Auto) 7.5 L [place] % (Auto) 20.0 H Eos % (Auto) 0.4 Baso % (Auto) 0.4 Lymph # (Auto) 0.6 L [place] # (Auto) 1.7 H Eos # (Auto) 0.0 Baso # (Auto) 0.0 Abs Immat Gran (auto) 0.07 H Absolute Neuts (auto) 6.1 Absolute Nucleated RBC 0.000 Nucleated RBC % (auto) 0.0 Smear Tech's Comments VERIFIED Sodium 132 L Potassium 4.6 Chloride 102 Carbon Dioxide 22 Anion Gap 13 BUN 36 H Creatinine 5.32 H* Estim Creat Clear Calc 12.1 Estimated GFR 11 POC Glucose 180 H 100 Fasting Glucose 100 H Calcium 8.6 Total Bilirubin 0.4 AST 23 ALT 19 Alkaline Phosphatase 260 H Total Protein 7.3 Albumin 2.7 L 02/11/23 12:21 WBC RBC Hgb Hct MCV MCH MCHC RDW Plt Count MPV Immature Gran % (Auto) Neut % (Auto) Lymph % (Auto) [place] % (Auto) Eos % (Auto) Baso % (Auto) Lymph # (Auto) [place] # (Auto) Eos # (Auto) Baso # (Auto) Abs Immat Gran (auto) Absolute Neuts (auto) Absolute Nucleated RBC Nucleated RBC % (auto) Smear Tech's Comments Sodium Potassium Chloride Carbon Dioxide Anion Gap BUN Creatinine Estim Creat Clear Calc Estimated GFR POC Glucose 80 Fasting Glucose Calcium Total Bilirubin AST ALT Alkaline Phosphatase Total Protein Albumin Microbiology Microbiology Results: Microbiology 02/07/23 Unknown Urine Catheterized - Harris Catheter Urine Culture - Final No growth. Procedures Date of Service Date of Service: 02/11/23 Assessment & Plan Assessment and plan (1) KEYA (acute kidney injury): Status: Inactive (2) (HFpEF) heart failure with preserved ejection fraction: Status: Acute (3) Renal artery stenosis: Status: Inactive (4) ESRD (end stage renal disease): Status: Acute Plan 1. Advanced CKD with history of Dialysis dependent KEYA Now likely ESRD ESRD due to progressive nephron loss from recurrent AKIs as well as backdrop of DM/HTN/vascular disease. Possible R RA stenosis too. proteinuria 1.8 g Dialyzed 02/07, 02/08, 02/09 for initiation. REC Dialysis TTS schedule. Fistula creation today ( Thx Dr Topete) Outpatient Dialysis chair being explored--hopefully at [facility] and will try to confirm placement with [facility] in next 1-2 days Time Spent With Patient Time: Total time managing care of this patient today ____ minutes. Progress Note: Quality Stroke Does the patient have a stroke diagnosis?: No
[2023-02-11] MEDS: hydrALAZINE HCl 50 MG TABLET 100 MG PO ×2 (16:35→20:26)
[2023-02-11] MEDS: 0.9 % Sodium Chloride Flush 3 ML SYRINGE IVFLUSH ×2 (16:36→20:26)
[2023-02-11 16:45] LABS: Glucose, Whole Blood 89 mg/dL (60-115)
--- NOTE | 2023-02-11 16:50 | HO.PM.IMPN ---
Subjective Subjective Date of Service: 02/11/23 Interval History: To OR this a.m. for fistula creation. Tolerated well no acute issues Review of Systems Denies chest pain Denies shortness of breath Denies nausea vomiting diarrhea Denies fever chills Physical Exam Vital Signs: Vital Signs: Last Vital Signs Temp 98.1 F 02/11/23 15:25 Pulse 60 02/11/23 15:25 Resp 20 02/11/23 15:25 BP 126/71 02/11/23 15:25 Pulse Ox 92 02/11/23 15:25 O2 Del Method Room Air 02/11/23 15:25 O2 Flow Rate 3 02/11/23 11:45 BMI result Body Mass Index 25.4 Const: Other: Awake alert no acute distress Resp: Other: Clear to auscultation bilaterally no rales rhonchi or wheezes Cardio: Other: No S4; positive S1-S2; no S3 murmurs rubs or gallops GI: Other: Soft nontender nondistended normoactive bowel sounds Extrem: Other: No edema bilaterally. Left arm dressing clean dry and intact Objective Data Active Medications Acetaminophen (Acetaminophen 325 Mg Tablet) 650 mg PO Q6H PRN PRN Reason: mild pain Last Admin: 02/10/23 15:40 Dose: 650 mg Documented By: ABDULKADIR Albuterol Sulfate (Albuterol Sulfate 90 Mcg 8 Gm Inhaler) 2 puff INHALE Q4H PRN PRN Reason: Wheezing Amoxicillin/Clavulanate Potassium (Amoxicillin/Potassium Clav 250 Mg Tablet) 250 mg PO Q12H [facility] Last Admin: 02/11/23 12:35 Dose: 250 mg Documented By: ABDULKADIR Aspirin (Aspirin 81 Mg Tab.Chew) 81 mg PO DAILY [facility] Last Admin: 02/11/23 12:35 Dose: 81 mg Documented By: ABDULKADIR Atorvastatin Calcium (Atorvastatin Calcium 80 Mg Tablet) 80 mg PO BEDTIME [facility] Last Admin: 02/10/23 20:04 Dose: 80 mg Documented By: SONYA Carvedilol (Carvedilol 25 Mg Tablet) 25 mg PO BID [facility]; Protocol Last Admin: 02/11/23 12:36 Dose: 25 mg Documented By: ABDULKADIR Dextrose (Dextrose 50 % 25 Gm/50 Ml Syringe) 25 gm IVPUSH Q15M PRN; Protocol PRN Reason: per Hypoglycemia Standing Ord. Docusate Sodium (Docusate Sodium 100 Mg Capsule) 100 mg PO BEDTIME [facility] Last Admin: 02/10/23 20:04 Dose: 100 mg Documented By: SONYA Ezetimibe (Ezetimibe 10 Mg Tablet) 10 mg PO DAILY [facility] Last Admin: 02/11/23 12:36 Dose: 10 mg Documented By: ABDULKADIR Fentanyl (Fentanyl Citrate/Pf 100 Mcg/2 Ml Vial) 25 mcg IVPUSH Q5M PRN; Protocol PRN Reason: Pain, Moderate(Pain Scale 4-6) Gabapentin (Gabapentin 300 Mg Capsule) 300 mg PO DAILY [facility] Last Admin: 02/11/23 12:36 Dose: 300 mg Documented By: ABDULKADIR Glucose (Glucose Gel 15 Gm Gel..Gram.) 15 gm PO Q15M PRN; Protocol PRN Reason: per Hypoglycemia Standing Ord. Guaifenesin/Codeine Phosphate (Guaifen/Codeine Sf 200/20/10ml 10 Ml Liquid) 10 ml PO Q6H PRN PRN Reason: cough Last Admin: 02/11/23 04:04 Dose: 10 ml Documented By: SONYA Hydralazine HCl (Hydralazine Hcl 50 Mg Tablet) 100 mg PO TID [facility]; Protocol Last Admin: 02/11/23 16:35 Dose: 100 mg Documented By: ABDULKADIR Insulin Human Lispro (Insulin Lispro 100 Unit/Ml 3 Ml Vial) 0 unit SUBCUT QIDACHS [facility]; Protocol Last Admin: 02/11/23 12:28 Dose: Not Given Documented By: ABDULKADIR Non-Admin Reason: No Insulin Coverage Isosorbide Mononitrate (Isosorbide Mononitrate 60 Mg Tab.Er.24h) 60 mg PO DAILY [facility]; Protocol Last Admin: 02/11/23 12:35 Dose: 60 mg Documented By: ABDULKADIR Nifedipine (Nifedipine Er 30 Mg Tab.Er.24) 90 mg PO DAILY [facility]; Protocol Last Admin: 02/11/23 12:36 Dose: 90 mg Documented By: ABDULKADIR Oxycodone HCl (Oxycodone Hcl Immed Release 5 Mg Tablet) 5 mg PO ONCE PRN PRN Reason: Pain, Severe (Pain Scale 7-10) Sertraline HCl (Sertraline Hcl 50 Mg Tablet) 50 mg PO DAILY [facility] Last Admin: 02/11/23 12:35 Dose: 50 mg Documented By: ABDULKADIR Sodium Chloride (0.9 % Sodium Chloride Flush 3 Ml Syringe) 3 ml IVFLUSH QSHIFT [facility] Last Admin: 02/11/23 16:36 Dose: 3 ml Documented By: ABDULKADIR Tamsulosin HCl (Tamsulosin Hcl 0.4 Mg Capsule) 0.4 mg PO BEDTIME [facility] Last Admin: 02/10/23 20:04 Dose: 0.4 mg Documented By: SONYA Labs 02/11/23 07:29 02/11/23 07:29 Labs: Laboratory Results - last 24 hr 02/10/23 02/11/23 02/11/23 20:05 07:29 07:55 MCV 92.9 MCH 29.2 MCHC 31.4 RDW 13.4 Plt Count 239 MPV 10.7 Immature Gran % (Auto) 0.8 H Neut % (Auto) 70.9 Lymph % (Auto) 7.5 L [place] % (Auto) 20.0 H Eos % (Auto) 0.4 Baso % (Auto) 0.4 Lymph # (Auto) 0.6 L [place] # (Auto) 1.7 H Eos # (Auto) 0.0 Baso # (Auto) 0.0 Abs Immat Gran (auto) 0.07 H Absolute Neuts (auto) 6.1 Absolute Nucleated RBC 0.000 Nucleated RBC % (auto) 0.0 Smear Tech's Comments VERIFIED Anion Gap 13 Estim Creat Clear Calc 12.1 Estimated GFR 11 POC Glucose 180 H 100 Fasting Glucose 100 H Calcium 8.6 Total Bilirubin 0.4 AST 23 ALT 19 Alkaline Phosphatase 260 H Total Protein 7.3 Albumin 2.7 L 02/11/23 02/11/23 12:21 16:41 MCV MCH MCHC RDW Plt Count MPV Immature Gran % (Auto) Neut % (Auto) Lymph % (Auto) [place] % (Auto) Eos % (Auto) Baso % (Auto) Lymph # (Auto) [place] # (Auto) Eos # (Auto) Baso # (Auto) Abs Immat Gran (auto) Absolute Neuts (auto) Absolute Nucleated RBC Nucleated RBC % (auto) Smear Tech's Comments Anion Gap Estim Creat Clear Calc Estimated GFR POC Glucose 80 89 Fasting Glucose Calcium Total Bilirubin AST ALT Alkaline Phosphatase Total Protein Albumin Assessment and Plan (1) ESRD (end stage renal disease): Status: Acute (2) Type 2 diabetes mellitus: Status: Acute (3) Hypertension: Status: Acute Plan 67yo M with DM2, CKD3, hx L BKA + R TMA, HLD, HFpEF, LORENZO, LIVE, HLD, PAD, recent acalculous cholecystitis with cholecystotomy tube presenting with AMS, admitted for KEYA -> ESRD 1.Acute metabolic encephalopathy due to uremia/KEYA-CKD3 ... Now ESRD dialysis dependent -resolved with hemodialysis -further dialysis as per Renal -fistula placement by vascular 02/11/23 without issue 2.Acute/chronic anemia, -status post 2 units PRBC -follow CBC in a.m.; treat as indicated 3.Acalculous cholecystitis with CCY tube - continue CCY tube, total 6 wk; -Augmentin as ordered 4.DM2 -acceptable control off therapies -TID AC POCs..lispro correctional scale 5.HTN -acceptable control on current therapies -Imdur, nifedipine, hydralazine, carvedilol Boots Full Code Requires ongoing hospitalization for continued dialysis and creation of a fistula for chronic hemodialysis Quality Stroke Does the patient have a stroke diagnosis?: No VTE Prior VTE?: No VTE Risk Level:: Medical - moderate - high VTE Device Contraindication: N/A - Device Ordered VTE Drug Contraindication: N/A - Med Ordered
[2023-02-11] MEDS: Atorvastatin Calcium 80 MG TABLET PO (20:26)
[2023-02-11] MEDS: Docusate Sodium 100 MG CAPSULE PO (20:26)
[2023-02-11] MEDS: Tamsulosin HCL 0.4 MG CAPSULE PO (20:26)
[2023-02-11 20:50] LABS: Glucose, Whole Blood 211 mg/dL (60-115)
[2023-02-11] MEDS: Insulin Lispro 100 UNIT/ML 3 ML VIAL SUBCUT (21:30)
[2023-02-12] MEDS: Acetaminophen 325 MG TABLET 650 MG PO ×3 (00:34→17:05)
[2023-02-12 03:59] VITALS: BP 111/55; PULSE 57; RESP 18; TEMP 36.3; O2SAT 97
--- NOTE | 2023-02-12 06:47 | HO.POSTANES ---
Post Anesthesia Evaluation Post Anesthesia Evaluation Date of Service: 02/12/23 Vital Signs: Vital Signs Temp Pulse Resp BP Pulse Ox O2 Del Method 02/12/23 03:59 97.4 F 57 18 111/55 L 97 Room Air 02/11/23 23:08 98.0 F 67 18 135/62 92 Room Air 02/11/23 19:19 98.0 F 63 20 130/62 92 Room Air Anesthesia: General Mental Status: Awake Pain Control: Satisfactory Nausea/Vomiting: None Hydration: Adequate Anesthesia-Related Issues: No Anes. Related Issues
[2023-02-12 07:24] LABS: Glucose, Whole Blood 130 mg/dL (60-115)
[2023-02-12 07:27] VITALS: BP 131/63; PULSE 59; RESP 18; TEMP 36.3; O2SAT 94
[2023-02-12] MEDS: Gabapentin 300 MG CAPSULE PO (08:45)
[2023-02-12] MEDS: Sertraline HCL 50 MG TABLET PO (08:45)
[2023-02-12] MEDS: Isosorbide Mononitrate 60 MG TAB.ER.24H PO (08:45)
[2023-02-12] MEDS: Ezetimibe 10 MG TABLET PO (08:45)
[2023-02-12] MEDS: carvediloL 25 MG TABLET PO ×2 (08:45→20:38)
[2023-02-12] MEDS: Amoxicillin/Potassium Clav 250 MG TABLET PO ×2 (08:45→20:38)
[2023-02-12] MEDS: NIFEdipine ER 30 MG TAB.ER.24 90 MG PO (08:45)
[2023-02-12] MEDS: Aspirin 81 MG TAB.CHEW PO (08:45)
[2023-02-12] MEDS: hydrALAZINE HCl 50 MG TABLET 100 MG PO ×2 (08:45→20:38)
[2023-02-12] MEDS: oxyCODONE HCl Immed Release 5 MG TABLET PO (08:51)
[2023-02-12] MEDS: 0.9 % Sodium Chloride Flush 3 ML SYRINGE IVFLUSH ×2 (08:53→20:39)
[2023-02-12 10:11] VITALS: O2SAT 94
[2023-02-12 10:20] VITALS: BMI 25.4
[2023-02-12 11:05] VITALS: BP 110/54; PULSE 58; RESP 18; TEMP 36.6; O2SAT 92
[2023-02-12 11:55] LABS: Glucose, Whole Blood 140 mg/dL (60-115)
--- NOTE | 2023-02-12 12:41 | MHC.CM.PN ---
MT spoke with Kayce([phone]) from [facility] and faxed her requested information to [phone]. Kayce will need run sheets, Hep B, and dc summary faxed to her once available. MT will follow.
[2023-02-12] MEDS: guaiFEN/Codeine SF 200/20/10ML 10 ML LIQUID PO ×2 (12:42→20:38)
--- NOTE | 2023-02-12 14:08 | HO.VASCPN ---
Subjective Subjective Date of Service: 02/12/23 Patient reports: no new complaints and feels better Interval history: Very pleasant 67-year-old gentleman for follow-up postop day 1 status post left arm fistula creation. Reports no pain or discomfort overall. Reports he is feeling somewhat better. No issues overnight. Now for follow-up. Physical Exam Vital Signs: Vital Signs: Last Vital Signs Temp 97.8 F 02/12/23 11:05 Pulse 58 02/12/23 11:05 Resp 18 02/12/23 11:05 BP 110/54 L 02/12/23 11:05 Pulse Ox 92 02/12/23 11:05 O2 Del Method Room Air 02/12/23 11:05 O2 Flow Rate 3 02/11/23 11:45 BMI result Body Mass Index 25.4 Const: General: cooperative, healthy appearing and no acute distress Orientation/consciousness: oriented to person, oriented to place and oriented to time HEENT: Head: Yes normal to inspection Neck: Carotids: no bruits Chest: Chest palpation & inspection: normal inspection of the chest Resp: Effort & Inspection: normal respiratory effort and able to speak in complete sentences Auscultation: clear to auscultation bilaterally Cardio: Rate: regular rate Heart sounds: S1 normal heart sound present and S2 normal heart sound present GI: Inspection: Yes normal to inspection Skin: Other: Left arm incision healing well Flow on fistula which appears to be deep appears to be more pulsatile in nature General skin exam: no rashes or lesions noted Wounds: no wounds Neuro: General: oriented to person, oriented to place, oriented to time and CN's II-XI intact bilaterally Extrem: General: Yes normal to inspection, Yes full ROM and Yes no clubbing, cyanosis or edema Psych: Appearance: grossly normal and well kempt Speech and movement: Normal speech and movement present Affect: normal affect Progress Note: A&P Assessment and plan (1) ESRD (end stage renal disease): Status: Acute Assessment and Plan: In short patient has undergone left arm brachiocephalic fistula creation. Concern if this will mature as the area that was anastomosed was extremely fibrotic. Will continue to monitor it status. Continue dialysis per [facility]. Can follow-up with us as an outpatient. Thank you for allowing us to assist in his care Time Spent With Patient Time: Total time managing care of this patient today ____ minutes. Procedures Date of Service Date of Service: 02/12/23 Quality Stroke Does the patient have a stroke diagnosis?: No VTE Prior VTE?: No VTE Risk Level:: Medical - moderate - high VTE Device Contraindication: N/A - Device Ordered VTE Drug Contraindication: N/A - Med Ordered
--- NOTE | 2023-02-12 14:34 | P.PNIM_ITS ---
Subjective Subjective Date of Service: 02/12/23 Interval History: Tolerated fistula placement without issue. Slight productive cough this a.m. however chest x-ray negative Review of Systems Denies chest pain Denies shortness of breath Denies nausea vomiting diarrhea Denies fever chills Physical Exam 2 Vital Signs: Vital Signs: Last Vital Signs Temp 97.8 F 02/12/23 11:05 Pulse 58 02/12/23 11:05 Resp 18 02/12/23 11:05 BP 110/54 L 02/12/23 11:05 Pulse Ox 92 02/12/23 11:05 O2 Del Method Room Air 02/12/23 11:05 O2 Flow Rate 3 02/11/23 11:45 BMI result Body Mass Index 25.4 Const: Other: Awake alert no acute distress Resp: Other: Clear to auscultation bilaterally no rales rhonchi or wheezes Cardio: Other: No S4; positive S1-S2; no S3 murmurs rubs or gallops GI: Other: Soft nontender nondistended normoactive bowel sounds Extrem: Other: No edema bilaterally. Left arm dressing clean dry and intact Objective Data Active Medications Acetaminophen (Acetaminophen 325 Mg Tablet) 650 mg PO Q6H PRN PRN Reason: mild pain Last Admin: 02/12/23 08:45 Dose: 650 mg Documented By: ABDULKADIR Albuterol Sulfate (Albuterol Sulfate 90 Mcg 8 Gm Inhaler) 2 puff INHALE Q4H PRN PRN Reason: Wheezing Amoxicillin/Clavulanate Potassium (Amoxicillin/Potassium Clav 250 Mg Tablet) 250 mg PO Q12H [facility] Last Admin: 02/12/23 08:45 Dose: 250 mg Documented By: ABDULKADIR Aspirin (Aspirin 81 Mg Tab.Chew) 81 mg PO DAILY [facility] Last Admin: 02/12/23 08:45 Dose: 81 mg Documented By: ABDULKADIR Atorvastatin Calcium (Atorvastatin Calcium 80 Mg Tablet) 80 mg PO BEDTIME [facility] Last Admin: 02/11/23 20:26 Dose: 80 mg Documented By: SONYA Carvedilol (Carvedilol 25 Mg Tablet) 25 mg PO BID [facility]; Protocol Last Admin: 02/12/23 08:45 Dose: 25 mg Documented By: ABDULKADIR Dextrose (Dextrose 50 % 25 Gm/50 Ml Syringe) 25 gm IVPUSH Q15M PRN; Protocol PRN Reason: per Hypoglycemia Standing Ord. Docusate Sodium (Docusate Sodium 100 Mg Capsule) 100 mg PO BEDTIME [facility] Last Admin: 02/11/23 20:26 Dose: 100 mg Documented By: SONYA Ezetimibe (Ezetimibe 10 Mg Tablet) 10 mg PO DAILY [facility] Last Admin: 02/12/23 08:45 Dose: 10 mg Documented By: ABDULKADIR Fentanyl (Fentanyl Citrate/Pf 100 Mcg/2 Ml Vial) 25 mcg IVPUSH Q5M PRN; Protocol PRN Reason: Pain, Moderate(Pain Scale 4-6) Gabapentin (Gabapentin 300 Mg Capsule) 300 mg PO DAILY [facility] Last Admin: 02/12/23 08:45 Dose: 300 mg Documented By: ABDULKADIR Glucose (Glucose Gel 15 Gm Gel..Gram.) 15 gm PO Q15M PRN; Protocol PRN Reason: per Hypoglycemia Standing Ord. Guaifenesin/Codeine Phosphate (Guaifen/Codeine Sf 200/20/10ml 10 Ml Liquid) 10 ml PO Q6H PRN PRN Reason: cough Last Admin: 02/12/23 12:42 Dose: 10 ml Documented By: ABDULKADIR Hydralazine HCl (Hydralazine Hcl 50 Mg Tablet) 100 mg PO TID [facility]; Protocol Last Admin: 02/12/23 08:45 Dose: 100 mg Documented By: ABDULKADIR Insulin Human Lispro (Insulin Lispro 100 Unit/Ml 3 Ml Vial) 0 unit SUBCUT QIDACHS [facility]; Protocol Last Admin: 02/12/23 11:58 Dose: Not Given Documented By: ABDULKADIR Non-Admin Reason: No Insulin Coverage Isosorbide Mononitrate (Isosorbide Mononitrate 60 Mg Tab.Er.24h) 60 mg PO DAILY [facility]; Protocol Last Admin: 02/12/23 08:45 Dose: 60 mg Documented By: ABDULKADIR Nifedipine (Nifedipine Er 30 Mg Tab.Er.24) 90 mg PO DAILY [facility]; Protocol Last Admin: 02/12/23 08:45 Dose: 90 mg Documented By: ABDULKADIR Sertraline HCl (Sertraline Hcl 50 Mg Tablet) 50 mg PO DAILY [facility] Last Admin: 02/12/23 08:45 Dose: 50 mg Documented By: ABDULKADIR Sodium Chloride (0.9 % Sodium Chloride Flush 3 Ml Syringe) 3 ml IVFLUSH QSHIFT [facility] Last Admin: 02/12/23 08:53 Dose: 3 ml Documented By: ABDULKADIR Tamsulosin HCl (Tamsulosin Hcl 0.4 Mg Capsule) 0.4 mg PO BEDTIME [facility] Last Admin: 02/11/23 20:26 Dose: 0.4 mg Documented By: SONYA Labs 02/11/23 07:29 02/11/23 07:29 Labs: Laboratory Results - last 24 hr 02/11/23 02/11/23 02/12/23 16:41 20:09 07:16 POC Glucose 89 211 H 130 H 02/12/23 11:05 POC Glucose 140 H Assessment and Plan (1) ESRD (end stage renal disease): Status: Acute (2) Type 2 diabetes mellitus: Status: Acute (3) Hypertension: Status: Acute Plan 67yo M with DM2, CKD3, hx L BKA + R TMA, HLD, HFpEF, LORENZO, LIVE, HLD, PAD, recent acalculous cholecystitis with cholecystotomy tube presenting with AMS, admitted for KEYA -> ESRD 1.Acute metabolic encephalopathy due to uremia/KEYA-CKD3 ... Now ESRD dialysis dependent -resolved with hemodialysis -further dialysis as per Renal -fistula placement by vascular 02/11/23 without issue 2.Acute/chronic anemia, -status post 2 units PRBC -follow CBC in a.m.; treat as indicated 3.Acalculous cholecystitis with CCY tube - continue CCY tube, total 6 wk; -Augmentin as ordered 4.DM2 -acceptable control off therapies -TID AC POCs..lispro correctional scale 5.HTN -acceptable control on current therapies -Imdur, nifedipine, hydralazine, carvedilol Boots Full Code Requires ongoing hospitalization for continued dialysis and creation of a fistula for chronic hemodialysis Quality Stroke Does the patient have a stroke diagnosis?: No VTE Prior VTE?: No VTE Risk Level:: Medical - moderate - high VTE Device Contraindication: N/A - Device Ordered VTE Drug Contraindication: N/A - Med Ordered
--- NOTE | 2023-02-12 15:31 | PM.PNNEP ---
Subjective Subjective Date of Service: 02/12/23 Interval history: Seen and examined, events noted S?P AVF 02/11 ques clotted vs low flow Physical Exam Vital Signs: Vital Signs: Last Vital Signs Temp 97.8 F 02/12/23 11:05 Pulse 58 02/12/23 11:05 Resp 18 02/12/23 11:05 BP 110/54 L 02/12/23 11:05 Pulse Ox 92 02/12/23 11:05 O2 Del Method Room Air 02/12/23 11:05 O2 Flow Rate 3 02/11/23 11:45 BMI result Body Mass Index 25.4 Const: General: cooperative, no acute distress, alert and awake HEENT: Head: Yes normocephalic and Yes atraumatic Neck: Neck: Yes supple Resp: Auscultation: clear to auscultation bilaterally and diminished lung sounds Cardio: Rate: regular rate Rhythm: regular rhythm Heart sounds: S1 normal heart sound present and S2 normal heart sound present GI: Palpation (GI): Soft to palpation and nontender Extrem: General: No edema Objective Data Labs 02/11/23 07:29 02/11/23 07:29 Labs: Laboratory Results - last 24 hr 02/11/23 02/11/23 02/12/23 16:41 20:09 07:16 POC Glucose 89 211 H 130 H 02/12/23 11:05 POC Glucose 140 H Microbiology Microbiology Results: Microbiology 02/07/23 Unknown Urine Catheterized - Harris Catheter Urine Culture - Final No growth. Procedures Date of Service Date of Service: 02/12/23 Assessment & Plan Assessment and plan (1) KEYA (acute kidney injury): Status: Inactive (2) (HFpEF) heart failure with preserved ejection fraction: Status: Acute (3) Renal artery stenosis: Status: Inactive (4) ESRD (end stage renal disease): Status: Acute Plan 1. Advanced CKD with history of Dialysis dependent KEYA Now likely ESRD ESRD due to progressive nephron loss from recurrent AKIs as well as backdrop of DM/HTN/vascular disease. Possible R RA stenosis too. proteinuria 1.8 g Dialysis initiation 02/07 via [facility] 2. Anemia: Fe/EPO def--get suppl 3. MBD of CKD 4. HTN: controled; ques signif R LORENZO 5. H/O HF: compnsated REC: HD this PM and pull fluid as tolerated; EPO /FE as noted; has oupt HD spot at [facility] ( no spots at [place] at this time--he is on wait list) Time Spent With Patient Time: Total time managing care of this patient today ____ minutes. Progress Note: Quality Stroke Does the patient have a stroke diagnosis?: No
[2023-02-12 18:31] LABS: Glucose, Whole Blood 114 mg/dL (60-115)
[2023-02-12 19:21] VITALS: BP 112/58; PULSE 59; RESP 20; TEMP 36.3; O2SAT 92
[2023-02-12] MEDS: Tamsulosin HCL 0.4 MG CAPSULE PO (20:38)
[2023-02-12] MEDS: Docusate Sodium 100 MG CAPSULE PO (20:38)
[2023-02-12] MEDS: Atorvastatin Calcium 80 MG TABLET PO (20:38)
[2023-02-12 21:10] LABS: Glucose, Whole Blood 146 mg/dL (60-115)
[2023-02-12 23:06] VITALS: BP 135/61; PULSE 55; RESP 18; TEMP 36.4; O2SAT 92
[2023-02-13] MEDS: guaiFEN/Codeine SF 200/20/10ML 10 ML LIQUID PO ×3 (02:18→21:34)
[2023-02-13 03:16] VITALS: PULSE 66
[2023-02-13 03:45] VITALS: BP 138/65; PULSE 69; RESP 20; TEMP 36.6; O2SAT 92
[2023-02-13 07:44] VITALS: BP 139/65; PULSE 57; RESP 18; TEMP 36.6; O2SAT 93
[2023-02-13 08:04] LABS: Glucose, Whole Blood 99 mg/dL (60-115)
[2023-02-13] MEDS: hydrALAZINE HCl 50 MG TABLET 100 MG PO ×3 (08:16→20:32)
[2023-02-13] MEDS: Ezetimibe 10 MG TABLET PO (08:16)
[2023-02-13] MEDS: Acetaminophen 325 MG TABLET 650 MG PO ×2 (08:16→13:36)
[2023-02-13] MEDS: Gabapentin 300 MG CAPSULE PO (08:16)
[2023-02-13] MEDS: carvediloL 25 MG TABLET PO ×2 (08:16→20:32)
[2023-02-13] MEDS: Sertraline HCL 50 MG TABLET PO (08:17)
[2023-02-13] MEDS: Aspirin 81 MG TAB.CHEW PO (08:17)
[2023-02-13] MEDS: Amoxicillin/Potassium Clav 250 MG TABLET PO ×2 (08:17→20:32)
[2023-02-13] MEDS: NIFEdipine ER 30 MG TAB.ER.24 90 MG PO (08:17)
[2023-02-13] MEDS: Isosorbide Mononitrate 60 MG TAB.ER.24H PO (08:17)
[2023-02-13] MEDS: 0.9 % Sodium Chloride Flush 3 ML SYRINGE IVFLUSH ×2 (08:18→16:45)
[2023-02-13 08:55] LABS: HBS Num1 > 1000.00 mIU/mL (0-7.99); HBc Num1 0.12 S/CO (0.00-0.79); HBsAGNum1 0.24 S/CO (0.00-0.99); Hepatitis B Core Antibody Nonreactive (Nonreactive); Hepatitis B Surface Antigen Negative (Negative); ~Hepatitis B Surface Antibody REACTIVE (Nonreactive)
--- NOTE | 2023-02-13 08:59 | MHC.CM.PN ---
HD run sheets have been faxed to Kayce @ [facility] @ fax # [phone] and Hep B is pending.
--- NOTE | 2023-02-13 09:19 | MHC.CM.PN ---
Hep B has been faxed to [facility].
[2023-02-13 09:28] LABS: Hematocrit 22.8 % (42.0-52.0); Hemoglobin 7.4 g/dl (14.0-18.0); Mean Corpuscular HGB Conc 32.5 g/dl (31.0-36.0); Mean Corpuscular Volume 92.3 fL (80.0-98.0); Mean Platelet Volume 10.9 fL (9.4-12.4); Platelet Count 281 X10*3/uL (160-400); Red Blood Count 2.47 X10*6/uL (4.60-5.80); Red Cell Distribution Width 13.2 % (11.0-16.0)
[2023-02-13 09:58] LABS: Anion Gap 16 (12-20); Blood Urea Nitrogen 33 mg/dL (9-16); Calcium 8.7 mg/dL (8.4-10.2); Carbon Dioxide 20 mmol/L (22-29); Chloride 96 mmol/L (96-108); Creatinine Clr Calc Pharmacy 14.9; Estimated Glomerular Filt Rate 14; Glucose Random 135 mg/dL (60-115); Potassium 3.9 mmol/L (3.3-5.1); Sodium 128 mmol/L (135-145)
--- NOTE | 2023-02-13 10:30 | MHC.CM.PN ---
MT spoke with Kayce from [facility]; Patient's new HD slot/schedule is M/W/ with the first session at [facility] on 02/15/2023, arriving at 3PM. Kayce is arranging for transportation and dc summary will need to be faxed to Kayce once available.MT has relayed this information to MD and will continue to follow.
--- NOTE | 2023-02-13 10:55 | MHC.CLN ---
F/U PT WITH INCREASED NUTRITION RISK R/T PRESSURE INJURY PO INTAKE 75-100% DIET RX: 2200DM-APPROPRIATE PT RECEIVING GELATEIN BID TO PROMOTE WOUND HEALING SUPP TO PROVIDE 320KCALS, 40G PROTEIN MONITOR PO INTAKE AND ENCOURAGE SUPPLEMENTS
[2023-02-13 11:24] VITALS: BP 113/59; PULSE 67; RESP 16; TEMP 36.4; O2SAT 94
[2023-02-13 11:40] LABS: Glucose, Whole Blood 166 mg/dL (60-115)
[2023-02-13] MEDS: Insulin Lispro 100 UNIT/ML 3 ML VIAL SUBCUT ×2 (12:12→21:31)
--- NOTE | 2023-02-13 12:21 | HO.PM.IMPN ---
Subjective Subjective Date of Service: 02/13/23 Interval History: This history was taken in Vietnamese from the patient. No chest pain or dyspnea Review of Systems Review of Systems: Yes all other systems are reviewed and are negative Physical Exam Vital Signs: Vital Signs: Last Vital Signs Temp 97.6 F 02/13/23 11:24 Pulse 67 02/13/23 11:24 Resp 16 02/13/23 11:24 BP 113/59 L 02/13/23 11:24 Pulse Ox 94 02/13/23 11:24 O2 Del Method Room Air 02/13/23 11:24 O2 Flow Rate 3 02/11/23 11:45 BMI result Body Mass Index 25.4 Gen: in no acute distress HEENT: sclera anicteric, moist mucus membranes Neck: supple, R subclavian tunneled HD cathter, Lungs: clear to auscultation bilaterally Heart: regular rate and rhythm, no murmurs Abd: soft, non-tender, non-distended, RUQ CCY tube in place with minimal output Ext: no edema, s/p L BKA, s/p R TMA, LUE fistula healing Skin: warm/well-perfused Neuro: alert and oriented x3, no focal findings Psych: appropriate affect Objective Data Active Medications Acetaminophen (Acetaminophen 325 Mg Tablet) 650 mg PO Q6H PRN PRN Reason: mild pain Last Admin: 02/13/23 08:16 Dose: 650 mg Documented By: FLACA Albuterol Sulfate (Albuterol Sulfate 90 Mcg 8 Gm Inhaler) 2 puff INHALE Q4H PRN PRN Reason: Wheezing Amoxicillin/Clavulanate Potassium (Amoxicillin/Potassium Clav 250 Mg Tablet) 250 mg PO Q12H [facility] Last Admin: 02/13/23 08:17 Dose: 250 mg Documented By: FLACA Aspirin (Aspirin 81 Mg Tab.Chew) 81 mg PO DAILY [facility] Last Admin: 02/13/23 08:17 Dose: 81 mg Documented By: FLACA Atorvastatin Calcium (Atorvastatin Calcium 80 Mg Tablet) 80 mg PO BEDTIME [facility] Last Admin: 02/12/23 20:38 Dose: 80 mg Documented By: ELINOR Carvedilol (Carvedilol 25 Mg Tablet) 25 mg PO BID [facility]; Protocol Last Admin: 02/13/23 08:16 Dose: 25 mg Documented By: FLACA Dextrose (Dextrose 50 % 25 Gm/50 Ml Syringe) 25 gm IVPUSH Q15M PRN; Protocol PRN Reason: per Hypoglycemia Standing Ord. Docusate Sodium (Docusate Sodium 100 Mg Capsule) 100 mg PO BEDTIME [facility] Last Admin: 02/12/23 20:38 Dose: 100 mg Documented By: ELINOR Ezetimibe (Ezetimibe 10 Mg Tablet) 10 mg PO DAILY [facility] Last Admin: 02/13/23 08:16 Dose: 10 mg Documented By: FLACA Fentanyl (Fentanyl Citrate/Pf 100 Mcg/2 Ml Vial) 25 mcg IVPUSH Q5M PRN; Protocol PRN Reason: Pain, Moderate(Pain Scale 4-6) Gabapentin (Gabapentin 300 Mg Capsule) 300 mg PO DAILY [facility] Last Admin: 02/13/23 08:16 Dose: 300 mg Documented By: FLACA Glucose (Glucose Gel 15 Gm Gel..Gram.) 15 gm PO Q15M PRN; Protocol PRN Reason: per Hypoglycemia Standing Ord. Guaifenesin/Codeine Phosphate (Guaifen/Codeine Sf 200/20/10ml 10 Ml Liquid) 10 ml PO Q6H PRN PRN Reason: cough Last Admin: 02/13/23 08:16 Dose: 10 ml Documented By: FLACA Hydralazine HCl (Hydralazine Hcl 50 Mg Tablet) 100 mg PO TID [facility]; Protocol Last Admin: 02/13/23 08:16 Dose: 100 mg Documented By: FLACA Insulin Human Lispro (Insulin Lispro 100 Unit/Ml 3 Ml Vial) 0 unit SUBCUT QIDACHS [facility]; Protocol Last Admin: 02/13/23 09:11 Dose: Not Given Documented By: FLACA Non-Admin Reason: No Insulin Coverage Isosorbide Mononitrate (Isosorbide Mononitrate 60 Mg Tab.Er.24h) 60 mg PO DAILY [facility]; Protocol Last Admin: 02/13/23 08:17 Dose: 60 mg Documented By: FLACA Nifedipine (Nifedipine Er 30 Mg Tab.Er.24) 90 mg PO DAILY [facility]; Protocol Last Admin: 02/13/23 08:17 Dose: 90 mg Documented By: FLACA Sertraline HCl (Sertraline Hcl 50 Mg Tablet) 50 mg PO DAILY [facility] Last Admin: 02/13/23 08:17 Dose: 50 mg Documented By: FLACA Sodium Chloride (0.9 % Sodium Chloride Flush 3 Ml Syringe) 3 ml IVFLUSH QSHIFT [facility] Last Admin: 02/13/23 08:18 Dose: 3 ml Documented By: FLACA Tamsulosin HCl (Tamsulosin Hcl 0.4 Mg Capsule) 0.4 mg PO BEDTIME [facility] Last Admin: 02/12/23 20:38 Dose: 0.4 mg Documented By: ELIONR Labs 02/13/23 08:47 02/13/23 08:47 Labs: Laboratory Results - last 24 hr 02/12/23 02/12/23 02/12/23 15:56 18:27 20:53 MCV MCH MCHC RDW Plt Count MPV Absolute Nucleated RBC Nucleated RBC % (auto) Anion Gap Estim Creat Clear Calc Estimated GFR POC Glucose 114 146 H Random Glucose Calcium Hep Bs Antigen Negative Hep Bs Antibody REACTIVE Hep B Core Total Ab Nonreactive 02/13/23 02/13/23 02/13/23 07:47 08:47 11:26 MCV 92.3 MCH 30.0 MCHC 32.5 RDW 13.2 Plt Count 281 MPV 10.9 Absolute Nucleated RBC 0.000 Nucleated RBC % (auto) 0.0 Anion Gap 16 Estim Creat Clear Calc 14.9 Estimated GFR 14 POC Glucose 99 166 H Random Glucose 135 H Calcium 8.7 Hep Bs Antigen Hep Bs Antibody Hep B Core Total Ab Assessment and Plan (1) ESRD (end stage renal disease): Status: Acute (2) Type 2 diabetes mellitus: Status: Acute (3) Hypertension: Status: Acute Plan d8 67yo M with DM2, CKD3, hx L BKA + R TMA, HLD, HFpEF, LORENZO, LIVE, HLD, PAD, recent acalculous cholecystitis with cholecystotomy tube presenting with AMS, admitted for KEYA -> ESRD acute metabolic encephalopathy due to uremia due to KEYA/CKD3 with hyperK + metabolic acidosis, now ESRD - Nephro consulted, Permacath placed 02/06 then started HD, got HD yesterday and will get short session tomorrow and start outpt HD at [facility], to continue MWF acute/chronic anemia, likely anemia of chronic disease but also FOBT+ - transfused 1u pRBCs in ED and another 1u 02/06/23 - GI consulted, inpt vs outpt EGD/C-scope, follow-up with GI recent acalculous cholecystitis with CCY tube - continue CCY tube, total 6 wk from 01/24; continue amoxicillin-clavulanate as per last admission here; discontinue tube and antibiotics 03/07- will need Gen Surg follow-up DM2 with hypoglycemia - A1c 5.7, now off medications chronic HFpEF - hold diuretics R LORENZO - outpt f/u with CTA/MRA per Nephrology. Continue ASA/statin HTN - continue Imdur, nifedipine, hydralazine, carvedilol BPH - tamsulosin mood disorder - sertraline VTE ppx - hold heparin given anemia + FOBT dispo - anticipate home with VNA, needs transport to outpt HD in [place] In my clinical judgment, the patient requires continued inpatient hospitalization for the following reasons: HD start Total time managing care of this patient today: 40 minutes. Quality Stroke Does the patient have a stroke diagnosis?: No VTE Prior VTE?: No VTE Risk Level:: Medical - moderate - high VTE Device Contraindication: N/A - Device Ordered VTE Drug Contraindication: N/A - Med Ordered
[2023-02-13 13:17] LABS: Glucose, Whole Blood 166 mg/dL (60-115)
[2023-02-13] MEDS: bisacodyL 5 MG TABLET.DR 20 MG PO (13:36)
[2023-02-13 15:46] VITALS: BP 118/58; PULSE 56; RESP 18; TEMP 36.1; O2SAT 94
[2023-02-13 16:23] LABS: Glucose, Whole Blood 116 mg/dL (60-115)
[2023-02-13] MEDS: PEG 3350/Na Sulf,Bicarb,Cl/KCL 4,000 ML SOLN.RECON 4000 ML PO (17:48)
[2023-02-13] MEDS: Atorvastatin Calcium 80 MG TABLET PO (20:31)
[2023-02-13] MEDS: Docusate Sodium 100 MG CAPSULE PO (20:31)
[2023-02-13 20:32] LABS: Glucose, Whole Blood 192 mg/dL (60-115)
[2023-02-13] MEDS: Tamsulosin HCL 0.4 MG CAPSULE PO (20:32)
[2023-02-13 23:57] VITALS: BP 102/56; PULSE 48; RESP 18; TEMP 36; O2SAT 98
[2023-02-14] VITALS (9 sets, daily range): BP systolic 107–170; BP diastolic 44–77; PULSE 51–97; RESP 14–20; TEMP 36–36.6; O2SAT 85–100
[2023-02-14 06:38] LABS: Hematocrit 23.3 % (42.0-52.0); Hemoglobin 7.5 g/dl (14.0-18.0); Mean Corpuscular HGB Conc 32.2 g/dl (31.0-36.0); Mean Corpuscular Hemoglobin 29.5 pg (27.0-33.0); Mean Corpuscular Volume 91.7 fL (80.0-98.0); Mean Platelet Volume 10.9 fL (9.4-12.4); Platelet Count 268 X10*3/uL (160-400); Red Blood Count 2.54 X10*6/uL (4.60-5.80); Red Cell Distribution Width 13.1 % (11.0-16.0); White Blood Count 8.8 X10*3/uL (4.8-10.8)
[2023-02-14 07:06] LABS: Anion Gap 16 (12-20); Blood Urea Nitrogen 45 mg/dL (9-16); Calcium 8.9 mg/dL (8.4-10.2); Carbon Dioxide 21 mmol/L (22-29); Chloride 96 mmol/L (96-108); Creatinine Clr Calc Pharmacy 11.8; Estimated Glomerular Filt Rate 10; Glucose Random 109 mg/dL (60-115); Potassium 4.4 mmol/L (3.3-5.1); Sodium 129 mmol/L (135-145)
[2023-02-14 08:01] LABS: Glucose, Whole Blood 92 mg/dL (60-115)
[2023-02-14] MEDS: Sertraline HCL 50 MG TABLET PO (08:22)
[2023-02-14] MEDS: hydrALAZINE HCl 50 MG TABLET 100 MG PO ×2 (08:22→16:25)
[2023-02-14] MEDS: Amoxicillin/Potassium Clav 250 MG TABLET PO (08:23)
[2023-02-14] MEDS: 0.9 % Sodium Chloride Flush 3 ML SYRINGE IVFLUSH ×2 (08:23→16:25)
[2023-02-14] MEDS: Isosorbide Mononitrate 60 MG TAB.ER.24H PO (08:23)
[2023-02-14] MEDS: carvediloL 25 MG TABLET PO (08:23)
[2023-02-14] MEDS: Gabapentin 300 MG CAPSULE PO (08:23)
[2023-02-14] MEDS: Ezetimibe 10 MG TABLET PO (08:23)
[2023-02-14] MEDS: NIFEdipine ER 30 MG TAB.ER.24 90 MG PO (08:23)
--- NOTE | 2023-02-14 08:41 | P.CONAN_ITS ---
HPI - Anesthesia Eval Consult details Narrative: Anemia PMFSH Active Problems Active Problems: All Active Problems Hypertension (Acute) Type 2 diabetes mellitus (Acute) ESRD (end stage renal disease) (Acute) Anemia (Acute) Acute hyperkalemia (Acute) Hypoglycemia (Acute) Acute kidney injury superimposed on CKD (Acute) CKD (chronic kidney disease) stage 3, GFR 30-59 ml/min (Acute) Cocaine use disorder (Acute) Acalculous cholecystitis (Acute) Acute kidney injury superimposed on chronic kidney disease (Acute) Erectile dysfunction associated with type 2 diabetes mellitus (Acute) Benign prostatic hyperplasia (Acute) (HFpEF) heart failure with preserved ejection fraction (Acute) Osteomyelitis (Acute) CKD stage 3 due to type 2 diabetes mellitus (Acute) LIVE (iron deficiency anemia) (Acute) Hospital discharge follow-up (Acute) Status post below-knee amputation of left lower extremity (Acute) Elevated erythrocyte sedimentation rate (Acute) Toxic metabolic encephalopathy (Acute) Pneumonia (Acute) Acute hypoxemic respiratory failure (Acute) Nonhealing ulcer of left lower extremity (Acute) Diabetic foot infection (Acute) Cellulitis (Acute) Past Medical History Medical History Hypertension Type 2 diabetes mellitus ESRD (end stage renal disease) CKD (chronic kidney disease) stage 3, GFR 30-59 ml/min Renal artery stenosis Anemia Uncontrolled hypertension Erectile dysfunction (HFpEF) heart failure with preserved ejection fraction Osteomyelitis CKD stage 3 due to type 2 diabetes mellitus LIVE (iron deficiency anemia) Hyperlipidemia associated with type 2 diabetes mellitus Kidney disease High cholesterol HTN (hypertension) Diabetes PAD (peripheral artery disease) Family History Family History Other No family history of coronary artery disease Family history of problems with anesthesia: No Surgical History Surgical History Status post transmetatarsal amputation of left foot Hx of amputation History of amputation of right forefoot H/O shoulder surgery History of Problems with Anesthesia: No Social History Social History Household Members: None Housing: Apartment Do you presently have visiting nurse or other home services: Yes ([facility] [facility] ONLY) Alcohol intake: current Alcohol intake frequency: a few times a month Alcohol type: beer Comment: previously medicated with IV morphine Patient Tobacco Use Status: Never used Tobacco Tobacco use type: Cigarette Second Hand Smoke Exposure: No Use of substances other than those prescribed or required for medical reasons: Yes Substance Use Type: Crack/Cocaine Currently Displaying Signs/Symptoms of Drug Intoxication Withdrawal: No Have you been hit, kicked, punched, or otherwise hurt by someone within the past year? If so, by whom?: No Do you feel safe in your current relationship?: No Current Relationship Is there a partner from a previous relationship who is making you feel unsafe now?: No Are you made to feel afraid or neglected: No Are you DNR?: No Advance Directives: Yes Advance Directives Information Provided: No Advance Directives on File: Yes Advance Directives Date on File: 02/02/22 Do you have thoughts of harming others: None Do you have a plan to hurt others: No Plan Recently lost weight without trying: No Nutrition Risks: No Nutritional Risk Poor oral hygiene: No service: No Current occupational status: retired Meds Allergies Allergy/AdvReac Type Severity Reaction Status Date / Time metformin AdvReac Unknown Verified 01/24/23 14:42 Active Medications: Current Medications Acetaminophen (Acetaminophen 325 Mg Tablet) 650 mg PO Q6H PRN PRN Reason: mild pain Last Admin: 02/13/23 13:36 Dose: 650 mg Albuterol Sulfate (Albuterol Sulfate 90 Mcg 8 Gm Inhaler) 2 puff INHALE Q4H PRN PRN Reason: Wheezing Amoxicillin/Clavulanate Potassium (Amoxicillin/Potassium Clav 250 Mg Tablet) 250 mg PO Q12H [facility] Last Admin: 02/14/23 08:23 Dose: 250 mg Aspirin (Aspirin 81 Mg Tab.Chew) 81 mg PO DAILY [facility] Last Admin: 02/14/23 08:30 Dose: Not Given Atorvastatin Calcium (Atorvastatin Calcium 80 Mg Tablet) 80 mg PO BEDTIME [facility] Last Admin: 02/13/23 20:31 Dose: 80 mg Carvedilol (Carvedilol 25 Mg Tablet) 25 mg PO BID [facility]; Protocol Last Admin: 02/14/23 08:23 Dose: 25 mg Dextrose (Dextrose 50 % 25 Gm/50 Ml Syringe) 25 gm IVPUSH Q15M PRN; Protocol PRN Reason: per Hypoglycemia Standing Ord. Docusate Sodium (Docusate Sodium 100 Mg Capsule) 100 mg PO BEDTIME [facility] Last Admin: 02/13/23 20:31 Dose: 100 mg Ezetimibe (Ezetimibe 10 Mg Tablet) 10 mg PO DAILY [facility] Last Admin: 02/14/23 08:23 Dose: 10 mg Fentanyl (Fentanyl Citrate/Pf 100 Mcg/2 Ml Vial) 25 mcg IVPUSH Q5M PRN; Protocol PRN Reason: Pain, Moderate(Pain Scale 4-6) Gabapentin (Gabapentin 300 Mg Capsule) 300 mg PO DAILY [facility] Last Admin: 02/14/23 08:23 Dose: 300 mg Glucose (Glucose Gel 15 Gm Gel..Gram.) 15 gm PO Q15M PRN; Protocol PRN Reason: per Hypoglycemia Standing Ord. Guaifenesin/Codeine Phosphate (Guaifen/Codeine Sf 200/20/10ml 10 Ml Liquid) 10 ml PO Q6H PRN PRN Reason: cough Last Admin: 02/13/23 21:34 Dose: 10 ml Hydralazine HCl (Hydralazine Hcl 50 Mg Tablet) 100 mg PO TID [facility]; Protocol Last Admin: 02/14/23 08:22 Dose: 100 mg Insulin Human Lispro (Insulin Lispro 100 Unit/Ml 3 Ml Vial) 0 unit SUBCUT QIDACHS [facility]; Protocol Last Admin: 02/14/23 08:18 Dose: Not Given Isosorbide Mononitrate (Isosorbide Mononitrate 60 Mg Tab.Er.24h) 60 mg PO DAILY [facility]; Protocol Last Admin: 02/14/23 08:23 Dose: 60 mg Nifedipine (Nifedipine Er 30 Mg Tab.Er.24) 90 mg PO DAILY [facility]; Protocol Last Admin: 02/14/23 08:23 Dose: 90 mg Sertraline HCl (Sertraline Hcl 50 Mg Tablet) 50 mg PO DAILY [facility] Last Admin: 02/14/23 08:22 Dose: 50 mg Sodium Chloride (0.9 % Sodium Chloride Flush 3 Ml Syringe) [facility] Admin: 02/14/23 08:23 Dose: 3 ml Tamsulosin HCl (Tamsulosin Hcl 0.4 Mg Capsule) 0.4 mg PO BEDTIME [facility] Last Admin: 02/13/23 20:32 Dose: 0.4 mg Home Medications Medication Instructions Recorded Confirmed Last Taken Type sertraline 50 mg tablet 50 mg PO DAILY 04/27/21 02/06/23 01/21/23 History albuterol sulfate 90 mcg/actuation 2 puff inhalation Q4H PRN Wheezing 01/13/23 02/06/23 Unknown History aerosol inhaler (Ventolin HFA) aspirin 81 mg chewable tablet 1 tab PO DAILY 01/13/23 02/06/23 01/21/23 History atorvastatin 80 mg tablet 80 mg PO BEDTIME 01/13/23 02/06/23 01/20/23 History docusate sodium 100 mg capsule 100 mg PO BEDTIME 01/13/23 02/06/23 01/20/23 History ezetimibe 10 mg tablet 10 mg PO DAILY 01/13/23 02/06/23 01/21/23 History flash glucose scanning reader 01/13/23 01/21/23 Unknown History (FreeStyle Daniel 2 [place]) flash glucose sensor (FreeStyle 01/13/23 01/21/23 Unknown History Daniel 2 Sensor kit) fluticasone propionate 50 2 spray intranasal DAILY PRN 01/13/23 02/06/23 Unknown History mcg/actuation nasal Congestion spray,suspension furosemide 40 mg tablet 40 mg PO BID 01/13/23 02/06/23 01/21/23 History gabapentin 300 mg capsule 300 mg PO DAILY 01/13/23 02/06/23 01/21/23 History hydralazine 50 mg tablet 100 mg PO TID 01/13/23 02/06/23 01/21/23 History isosorbide mononitrate 60 mg 60 mg PO DAILY 01/13/23 02/06/23 01/21/23 History tablet,extended release 24 hr tamsulosin 0.4 mg capsule 0.4 mg PO BEDTIME 01/13/23 02/06/23 01/20/23 History cholecalciferol (vitamin D3) 1,250 50,000 unit PO [place] 01/21/23 02/06/23 01/20/23 History mcg (50,000 unit) capsule Exam Height,Weight and Vital Signs: Height 5 ft 6 in Weight 71.5 kg Last Vital Signs Temp 96.8 F 02/14/23 07:24 Pulse 61 02/14/23 07:24 Resp 18 02/14/23 07:24 BP 148/77 H 02/14/23 07:24 Pulse Ox 93 02/14/23 07:24 O2 Del Method Room Air 02/14/23 07:24 O2 Flow Rate 3 02/11/23 11:45 Pertinent Lab Results Pertinent Lab Results: Laboratory Tests 02/06/23 02/06/23 02/06/23 16:20 17:09 17:50 WBC 7.4 RBC 2.07 L Hgb 6.2 L* D Hct 20.1 L* MCV 97.1 MCH 30.0 MCHC 30.8 L RDW 13.1 Plt Count 345 D MPV 10.0 Immature Gran % (Auto) 0.4 Neut % (Auto) 73.9 H Lymph % (Auto) 10.8 L [place] % (Auto) 12.8 H Eos % (Auto) 1.7 Baso % (Auto) 0.4 Lymph # (Auto) 0.8 L [place] # (Auto) 1.0 Eos # (Auto) 0.1 Baso # (Auto) 0.0 Abs Immat Gran (auto) 0.03 Absolute Neuts (auto) 5.5 Absolute Nucleated RBC 0.000 Nucleated RBC % (auto) 0.0 Smear Tech's Comments PT INR APTT Sodium 137 Potassium 6.0 H* D Chloride 113 H Carbon Dioxide 16 L Anion Gap 14 BUN 90 H Creatinine 8.28 H* Estim Creat Clear Calc 7.8 Estimated GFR 7 POC Glucose 85 90 Random Glucose 75 Fasting Glucose Calcium 8.8 Magnesium Total Bilirubin 0.2 Direct Bilirubin < 0.2 AST 31 ALT 34 Alkaline Phosphatase 307 H Total Protein 7.8 Albumin 2.9 L Urine Color Urine Appearance Urine pH Ur Specific [place] Urine Protein Urine Glucose (UA) Urine Ketones Urine Blood Urine Nitrite Ur Leukocyte Esterase Urine RBC Urine WBC Ur Squamous Epith Cells Urine Bacteria Hyaline Casts Stool Occult Blood Urine Opiates Screen Urine Fentanyl Screen Ur Barbiturates Screen Ur Phencyclidine Scrn Ur Amphetamines Screen U Benzodiazepines Scrn Urine Cocaine Screen U Marijuana (THC) Screen Ethyl Alcohol < 10 Hep Bs Antigen Hep Bs Antibody Hep B Core Total Ab Blood Type Antibody Screen Crossmatch 02/06/23 02/06/23 02/06/23 19:11 20:34 20:37 WBC RBC Hgb Hct MCV MCH MCHC RDW Plt Count MPV Immature Gran % (Auto) Neut % (Auto) Lymph % (Auto) [place] % (Auto) Eos % (Auto) Baso % (Auto) Lymph # (Auto) [place] # (Auto) Eos # (Auto) Baso # (Auto) Abs Immat Gran (auto) Absolute Neuts (auto) Absolute Nucleated RBC Nucleated RBC % (auto) Smear Tech's Comments PT INR APTT Sodium Potassium Chloride Carbon Dioxide Anion Gap BUN Creatinine Estim Creat Clear Calc Estimated GFR POC Glucose 62 46 L* Random Glucose Fasting Glucose Calcium Magnesium Total Bilirubin Direct Bilirubin AST ALT Alkaline Phosphatase Total Protein Albumin Urine Color Urine Appearance Urine pH Ur Specific [place] Urine Protein Urine Glucose (UA) Urine Ketones Urine Blood Urine Nitrite Ur Leukocyte Esterase Urine RBC Urine WBC Ur Squamous Epith Cells Urine Bacteria Hyaline Casts Stool Occult Blood POSITIVE Urine Opiates Screen Urine Fentanyl Screen Ur Barbiturates Screen Ur Phencyclidine Scrn Ur Amphetamines Screen U Benzodiazepines Scrn Urine Cocaine Screen U Marijuana (THC) Screen Ethyl Alcohol Hep Bs Antigen Hep Bs Antibody Hep B Core Total Ab Blood Type Antibody Screen Crossmatch 02/06/23 02/06/23 02/07/23 20:57 21:04 00:01 WBC RBC Hgb Hct MCV MCH MCHC RDW Plt Count MPV Immature Gran % (Auto) Neut % (Auto) Lymph % (Auto) [place] % (Auto) Eos % (Auto) Baso % (Auto) Lymph # (Auto) [place] # (Auto) Eos # (Auto) Baso # (Auto) Abs Immat Gran (auto) Absolute Neuts (auto) Absolute Nucleated RBC Nucleated RBC % (auto) Smear Tech's Comments PT INR APTT Sodium Potassium Chloride Carbon Dioxide Anion Gap BUN Creatinine Estim Creat Clear Calc Estimated GFR POC Glucose 83 Random Glucose Fasting Glucose Calcium Magnesium Total Bilirubin Direct Bilirubin AST ALT Alkaline Phosphatase Total Protein Albumin Urine Color Yellow Urine Appearance Cloudy Urine pH 5.0 Ur Specific [place] 1.015 Urine Protein 300 (3+) H Urine Glucose (UA) Negative Urine Ketones Negative Urine Blood Negative Urine Nitrite Negative Ur Leukocyte Esterase Negative Urine RBC 0-2 Urine WBC 6-10 H Ur Squamous Epith Cells 0-2 Urine Bacteria None Seen Hyaline Casts 3-5 Stool Occult Blood Urine Opiates Screen Not Detected Urine Fentanyl Screen Not Detected Ur Barbiturates Screen Not Detected Ur Phencyclidine Scrn Not Detected Ur Amphetamines Screen Not Detected U Benzodiazepines Scrn Not Detected Urine Cocaine Screen Not Detected U Marijuana (THC) Screen Not Detected Ethyl Alcohol Hep Bs Antigen Hep Bs Antibody Hep B Core Total Ab Blood Type O Positive Antibody Screen NEGATIVE Crossmatch See Detail 02/07/23 02/07/23 02/07/23 00:58 03:36 08:03 WBC RBC Hgb Hct MCV MCH MCHC RDW Plt Count MPV Immature Gran % (Auto) Neut % (Auto) Lymph % (Auto) [place] % (Auto) Eos % (Auto) Baso % (Auto) Lymph # (Auto) [place] # (Auto) Eos # (Auto) Baso # (Auto) Abs Immat Gran (auto) Absolute Neuts (auto) Absolute Nucleated RBC Nucleated RBC % (auto) Smear Tech's Comments PT INR APTT Sodium Potassium Chloride Carbon Dioxide Anion Gap BUN Creatinine Estim Creat Clear Calc Estimated GFR POC Glucose 70 87 98 Random Glucose Fasting Glucose Calcium Magnesium Total Bilirubin Direct Bilirubin AST ALT Alkaline Phosphatase Total Protein Albumin Urine Color Urine Appearance Urine pH Ur Specific [place] Urine Protein Urine Glucose (UA) Urine Ketones Urine Blood Urine Nitrite Ur Leukocyte Esterase Urine RBC Urine WBC Ur Squamous Epith Cells Urine Bacteria Hyaline Casts Stool Occult Blood Urine Opiates Screen Urine Fentanyl Screen Ur Barbiturates Screen Ur Phencyclidine Scrn Ur Amphetamines Screen U Benzodiazepines Scrn Urine Cocaine Screen U Marijuana (THC) Screen Ethyl Alcohol Hep Bs Antigen Hep Bs Antibody Hep B Core Total Ab Blood Type Antibody Screen Crossmatch 02/07/23 02/07/23 02/07/23 11:23 11:44 11:44 WBC 6.1 RBC 2.24 L Hgb 6.8 L* Hct 21.5 L MCV 96.0 MCH 30.4 MCHC 31.6 RDW 13.5 Plt Count 301 MPV 10.2 Immature Gran % (Auto) Neut % (Auto) Lymph % (Auto) [place] % (Auto) Eos % (Auto) Baso % (Auto) Lymph # (Auto) [place] # (Auto) Eos # (Auto) Baso # (Auto) Abs Immat Gran (auto) Absolute Neuts (auto) Absolute Nucleated RBC 0.000 Nucleated RBC % (auto) 0.0 Smear Tech's Comments PT 11.9 Cancelled INR 1.0 APTT Sodium Potassium Chloride Carbon Dioxide Anion Gap BUN Creatinine Estim Creat Clear Calc Estimated GFR POC Glucose 84 Random Glucose Fasting Glucose Calcium Magnesium Total Bilirubin Direct Bilirubin AST ALT Alkaline Phosphatase Total Protein Albumin Urine Color Urine Appearance Urine pH Ur Specific [place] Urine Protein Urine Glucose (UA) Urine Ketones Urine Blood Urine Nitrite Ur Leukocyte Esterase Urine RBC Urine WBC Ur Squamous Epith Cells Urine Bacteria Hyaline Casts Stool Occult Blood Urine Opiates Screen Urine Fentanyl Screen Ur Barbiturates Screen Ur Phencyclidine Scrn Ur Amphetamines Screen U Benzodiazepines Scrn Urine Cocaine Screen U Marijuana (THC) Screen Ethyl Alcohol Hep Bs Antigen Hep Bs Antibody Hep B Core Total Ab Blood Type Antibody Screen Crossmatch 02/07/23 02/07/23 02/07/23 11:44 11:44 11:44 WBC RBC Hgb Hct MCV MCH MCHC RDW Plt Count MPV Immature Gran % (Auto) Neut % (Auto) Lymph % (Auto) [place] % (Auto) Eos % (Auto) Baso % (Auto) Lymph # (Auto) [place] # (Auto) Eos # (Auto) Baso # (Auto) Abs Immat Gran (auto) Absolute Neuts (auto) Absolute Nucleated RBC Nucleated RBC % (auto) Smear Tech's Comments PT INR Cancelled APTT 36.6 H D Sodium Cancelled 136 Potassium Cancelled 5.7 H Chloride Cancelled Carbon Dioxide Anion Gap BUN Creatinine Estim Creat Clear Calc Estimated GFR POC Glucose Random Glucose Fasting Glucose Calcium Magnesium Total Bilirubin Direct Bilirubin AST ALT Alkaline Phosphatase Total Protein Albumin Urine Color Urine Appearance Urine pH Ur Specific [place] Urine Protein Urine Glucose (UA) Urine Ketones Urine Blood Urine Nitrite Ur Leukocyte Esterase Urine RBC Urine WBC Ur Squamous Epith Cells Urine Bacteria Hyaline Casts Stool Occult Blood Urine Opiates Screen Urine Fentanyl Screen Ur Barbiturates Screen Ur Phencyclidine Scrn Ur Amphetamines Screen U Benzodiazepines Scrn Urine Cocaine Screen U Marijuana (THC) Screen Ethyl Alcohol Hep Bs Antigen Hep Bs Antibody Hep B Core Total Ab Blood Type Antibody Screen Crossmatch 02/07/23 02/07/23 02/07/23 11:44 11:44 11:44 WBC RBC Hgb Hct MCV MCH MCHC RDW Plt Count MPV Immature Gran % (Auto) Neut % (Auto) Lymph % (Auto) [place] % (Auto) Eos % (Auto) Baso % (Auto) Lymph # (Auto) [place] # (Auto) Eos # (Auto) Baso # (Auto) Abs Immat Gran (auto) Absolute Neuts (auto) Absolute Nucleated RBC Nucleated RBC % (auto) Smear Tech's Comments PT INR APTT Sodium Potassium Chloride 111 H Carbon Dioxide Cancelled 17 L Anion Gap Cancelled 14 BUN Cancelled Creatinine Estim Creat Clear Calc Estimated GFR POC Glucose Random Glucose Fasting Glucose Calcium Magnesium Total Bilirubin Direct Bilirubin AST ALT Alkaline Phosphatase Total Protein Albumin Urine Color Urine Appearance Urine pH Ur Specific [place] Urine Protein Urine Glucose (UA) Urine Ketones Urine Blood Urine Nitrite Ur Leukocyte Esterase Urine RBC Urine WBC Ur Squamous Epith Cells Urine Bacteria Hyaline Casts Stool Occult Blood Urine Opiates Screen Urine Fentanyl Screen Ur Barbiturates Screen Ur Phencyclidine Scrn Ur Amphetamines Screen U Benzodiazepines Scrn Urine Cocaine Screen U Marijuana (THC) Screen Ethyl Alcohol Hep Bs Antigen Hep Bs Antibody Hep B Core Total Ab Blood Type Antibody Screen Crossmatch 02/07/23 02/07/23 02/07/23 11:44 11:44 11:44 WBC RBC Hgb Hct MCV MCH MCHC RDW Plt Count MPV Immature Gran % (Auto) Neut % (Auto) Lymph % (Auto) [place] % (Auto) Eos % (Auto) Baso % (Auto) Lymph # (Auto) [place] # (Auto) Eos # (Auto) Baso # (Auto) Abs Immat Gran (auto) Absolute Neuts (auto) Absolute Nucleated RBC Nucleated RBC % (auto) Smear Tech's Comments PT INR APTT Sodium Potassium Chloride Carbon Dioxide Anion Gap BUN 92 H Creatinine Cancelled 8.27 H* Estim Creat Clear Calc Cancelled 7.8 Estimated GFR Cancelled POC Glucose Random Glucose Fasting Glucose Calcium Magnesium Total Bilirubin Direct Bilirubin AST ALT Alkaline Phosphatase Total Protein Albumin Urine Color Urine Appearance Urine pH Ur Specific [place] Urine Protein Urine Glucose (UA) Urine Ketones Urine Blood Urine Nitrite Ur Leukocyte Esterase Urine RBC Urine WBC Ur Squamous Epith Cells Urine Bacteria Hyaline Casts Stool Occult Blood Urine Opiates Screen Urine Fentanyl Screen Ur Barbiturates Screen Ur Phencyclidine Scrn Ur Amphetamines Screen U Benzodiazepines Scrn Urine Cocaine Screen U Marijuana (THC) Screen Ethyl Alcohol Hep Bs Antigen Hep Bs Antibody Hep B Core Total Ab Blood Type Antibody Screen Crossmatch 02/07/23 02/07/23 02/07/23 11:44 11:44 20:49 WBC RBC Hgb Hct MCV MCH MCHC RDW Plt Count MPV Immature Gran % (Auto) Neut % (Auto) Lymph % (Auto) [place] % (Auto) Eos % (Auto) Baso % (Auto) Lymph # (Auto) [place] # (Auto) Eos # (Auto) Baso # (Auto) Abs Immat Gran (auto) Absolute Neuts (auto) Absolute Nucleated RBC Nucleated RBC % (auto) Smear Tech's Comments PT INR APTT Sodium Potassium Chloride Carbon Dioxide Anion Gap BUN Creatinine Estim Creat Clear Calc Estimated GFR 7 POC Glucose 142 H Random Glucose Cancelled Fasting Glucose 87 Calcium Cancelled 8.7 Magnesium 2.3 Total Bilirubin 0.2 Direct Bilirubin < 0.2 AST 25 ALT 28 Alkaline Phosphatase 257 H Total Protein 7.1 Albumin 2.6 L Urine Color Urine Appearance Urine pH Ur Specific [place] Urine Protein Urine Glucose (UA) Urine Ketones Urine Blood Urine Nitrite Ur Leukocyte Esterase Urine RBC Urine WBC Ur Squamous Epith Cells Urine Bacteria Hyaline Casts Stool Occult Blood Urine Opiates Screen Urine Fentanyl Screen Ur Barbiturates Screen Ur Phencyclidine Scrn Ur Amphetamines Screen U Benzodiazepines Scrn Urine Cocaine Screen U Marijuana (THC) Screen Ethyl Alcohol Hep Bs Antigen Hep Bs Antibody Hep B Core Total Ab Blood Type Antibody Screen Crossmatch 02/08/23 02/08/23 02/08/23 06:38 06:39 07:52 WBC 7.2 RBC 2.53 L Hgb 7.6 L Hct 22.9 L MCV 90.5 D MCH 30.0 MCHC 33.2 RDW 14.1 Plt Count 292 MPV 10.7 Immature Gran % (Auto) Neut % (Auto) Lymph % (Auto) [place] % (Auto) Eos % (Auto) Baso % (Auto) Lymph # (Auto) [place] # (Auto) Eos # (Auto) Baso # (Auto) Abs Immat Gran (auto) Absolute Neuts (auto) Absolute Nucleated RBC 0.000 Nucleated RBC % (auto) 0.0 Smear Tech's Comments PT INR APTT Sodium 137 Potassium 4.8 Chloride 105 Carbon Dioxide 22 Anion Gap 15 BUN 63 H Creatinine 5.92 H* Estim Creat Clear Calc 10.9 Estimated GFR 10 POC Glucose 272 H Random Glucose 185 H Fasting Glucose Calcium 8.1 L D Magnesium Total Bilirubin Direct Bilirubin AST ALT Alkaline Phosphatase Total Protein Albumin Urine Color Urine Appearance Urine pH Ur Specific [place] Urine Protein Urine Glucose (UA) Urine Ketones Urine Blood Urine Nitrite Ur Leukocyte Esterase Urine RBC Urine WBC Ur Squamous Epith Cells Urine Bacteria Hyaline Casts Stool Occult Blood Urine Opiates Screen Urine Fentanyl Screen Ur Barbiturates Screen Ur Phencyclidine Scrn Ur Amphetamines Screen U Benzodiazepines Scrn Urine Cocaine Screen U Marijuana (THC) Screen Ethyl Alcohol Hep Bs Antigen Hep Bs Antibody Hep B Core Total Ab Blood Type Antibody Screen Crossmatch 02/08/23 02/08/23 02/08/23 12:47 16:39 20:22 WBC RBC Hgb Hct MCV MCH MCHC RDW Plt Count MPV Immature Gran % (Auto) Neut % (Auto) Lymph % (Auto) [place] % (Auto) Eos % (Auto) Baso % (Auto) Lymph # (Auto) [place] # (Auto) Eos # (Auto) Baso # (Auto) Abs Immat Gran (auto) Absolute Neuts (auto) Absolute Nucleated RBC Nucleated RBC % (auto) Smear Tech's Comments PT INR APTT Sodium Potassium Chloride Carbon Dioxide Anion Gap BUN Creatinine Estim Creat Clear Calc Estimated GFR POC Glucose 128 H 204 H 78 Random Glucose Fasting Glucose Calcium Magnesium Total Bilirubin Direct Bilirubin AST ALT Alkaline Phosphatase Total Protein Albumin Urine Color Urine Appearance Urine pH Ur Specific [place] Urine Protein Urine Glucose (UA) Urine Ketones Urine Blood Urine Nitrite Ur Leukocyte Esterase Urine RBC Urine WBC Ur Squamous Epith Cells Urine Bacteria Hyaline Casts Stool Occult Blood Urine Opiates Screen Urine Fentanyl Screen Ur Barbiturates Screen Ur Phencyclidine Scrn Ur Amphetamines Screen U Benzodiazepines Scrn Urine Cocaine Screen U Marijuana (THC) Screen Ethyl Alcohol Hep Bs Antigen Hep Bs Antibody Hep B Core Total Ab Blood Type Antibody Screen Crossmatch 02/09/23 02/09/23 02/09/23 06:33 07:38 11:39 WBC 8.1 RBC 2.54 L Hgb 7.5 L Hct 23.0 L MCV 90.6 MCH 29.5 MCHC 32.6 RDW 13.6 Plt Count 272 MPV 10.6 Immature Gran % (Auto) 0.5 H Neut % (Auto) 71.1 Lymph % (Auto) 9.3 L [place] % (Auto) 17.1 H Eos % (Auto) 1.4 Baso % (Auto) 0.6 Lymph # (Auto) 0.8 L [place] # (Auto) 1.4 H Eos # (Auto) 0.1 Baso # (Auto) 0.1 Abs Immat Gran (auto) 0.04 H Absolute Neuts (auto) 5.7 Absolute Nucleated RBC 0.000 Nucleated RBC % (auto) 0.0 Smear Tech's Comments PT INR APTT Sodium 135 Potassium 4.6 Chloride 105 Carbon Dioxide 22 Anion Gap 13 BUN 43 H Creatinine 4.99 H* Estim Creat Clear Calc 12.9 Estimated GFR 12 POC Glucose 132 H 160 H Random Glucose Fasting Glucose 155 H Calcium 8.0 L Magnesium Total Bilirubin 0.3 Direct Bilirubin AST 29 ALT 23 Alkaline Phosphatase 220 H Total Protein 7.4 Albumin 2.8 L Urine Color Urine Appearance Urine pH Ur Specific [place] Urine Protein Urine Glucose (UA) Urine Ketones Urine Blood Urine Nitrite Ur Leukocyte Esterase Urine RBC Urine WBC Ur Squamous Epith Cells Urine Bacteria Hyaline Casts Stool Occult Blood Urine Opiates Screen Urine Fentanyl Screen Ur Barbiturates Screen Ur Phencyclidine Scrn Ur Amphetamines Screen U Benzodiazepines Scrn Urine Cocaine Screen U Marijuana (THC) Screen Ethyl Alcohol Hep Bs Antigen Hep Bs Antibody Hep B Core Total Ab Blood Type Antibody Screen Crossmatch 02/09/23 02/09/23 02/10/23 16:11 20:50 06:22 WBC 9.3 RBC 2.60 L Hgb 7.9 L Hct 24.9 L MCV 95.8 D MCH 30.4 MCHC 31.7 RDW 13.4 Plt Count 261 MPV 10.7 Immature Gran % (Auto) 0.6 H Neut % (Auto) 78.0 H Lymph % (Auto) 6.4 L [place] % (Auto) 13.8 H Eos % (Auto) 0.6 Baso % (Auto) 0.6 Lymph # (Auto) 0.6 L [place] # (Auto) 1.3 H Eos # (Auto) 0.1 Baso # (Auto) 0.1 Abs Immat Gran (auto) 0.06 H Absolute Neuts (auto) 7.3 Absolute Nucleated RBC 0.000 Nucleated RBC % (auto) 0.0 Smear Tech's Comments PT INR APTT Sodium 133 L Potassium 4.3 Chloride 103 Carbon Dioxide 21 L Anion Gap 13 BUN 23 H Creatinine 4.07 H* Estim Creat Clear Calc 15.8 Estimated GFR 15 POC Glucose 139 H 180 H Random Glucose Fasting Glucose 96 Calcium 8.6 D Magnesium Total Bilirubin 0.4 Direct Bilirubin AST 27 ALT 21 Alkaline Phosphatase 217 H Total Protein 7.7 Albumin 2.8 L Urine Color Urine Appearance Urine pH Ur Specific [place] Urine Protein Urine Glucose (UA) Urine Ketones Urine Blood Urine Nitrite Ur Leukocyte Esterase Urine RBC Urine WBC Ur Squamous Epith Cells Urine Bacteria Hyaline Casts Stool Occult Blood Urine Opiates Screen Urine Fentanyl Screen Ur Barbiturates Screen Ur Phencyclidine Scrn Ur Amphetamines Screen U Benzodiazepines Scrn Urine Cocaine Screen U Marijuana (THC) Screen Ethyl Alcohol Hep Bs Antigen Hep Bs Antibody Hep B Core Total Ab Blood Type Antibody Screen Crossmatch 02/10/23 02/10/2302/10/23 07:25 11:43 16:00 WBC RBC Hgb Hct MCV MCH MCHC RDW Plt Count MPV Immature Gran % (Auto) Neut % (Auto) Lymph % (Auto) [place] % (Auto) Eos % (Auto) Baso % (Auto) Lymph # (Auto) [place] # (Auto) Eos # (Auto) Baso # (Auto) Abs Immat Gran (auto) Absolute Neuts (auto) Absolute Nucleated RBC Nucleated RBC % (auto) Smear Tech's Comments PT INR APTT Sodium Potassium Chloride Carbon Dioxide Anion Gap BUN Creatinine Estim Creat Clear Calc Estimated GFR POC Glucose 89 204 H 149 H Random Glucose Fasting Glucose Calcium Magnesium Total Bilirubin Direct Bilirubin AST ALT Alkaline Phosphatase Total Protein Albumin Urine Color Urine Appearance Urine pH Ur Specific [place] Urine Protein Urine Glucose (UA) Urine Ketones Urine Blood Urine Nitrite Ur Leukocyte Esterase Urine RBC Urine WBC Ur Squamous Epith Cells Urine Bacteria Hyaline Casts Stool Occult Blood Urine Opiates Screen Urine Fentanyl Screen Ur Barbiturates Screen Ur Phencyclidine Scrn Ur Amphetamines Screen U Benzodiazepines Scrn Urine Cocaine Screen U Marijuana (THC) Screen Ethyl Alcohol Hep Bs Antigen Hep Bs Antibody Hep B Core Total Ab Blood Type Antibody Screen Crossmatch 02/10/23 02/11/23 02/11/23 20:05 07:29 07:55 WBC 8.6 RBC 2.40 L Hgb 7.0 L* Hct 22.3 L MCV 92.9 MCH 29.2 MCHC 31.4 RDW 13.4 Plt Count 239 MPV 10.7 Immature Gran % (Auto) 0.8 H Neut % (Auto) 70.9 Lymph % (Auto) 7.5 L [place] % (Auto) 20.0 H Eos % (Auto) 0.4 Baso % (Auto) 0.4 Lymph # (Auto) 0.6 L [place] # (Auto) 1.7 H Eos # (Auto) 0.0 Baso # (Auto) 0.0 Abs Immat Gran (auto) 0.07 H Absolute Neuts (auto) 6.1 Absolute Nucleated RBC 0.000 Nucleated RBC % (auto) 0.0 Smear Tech's Comments VERIFIED PT INR APTT Sodium 132 L Potassium 4.6 Chloride 102 Carbon Dioxide 22 Anion Gap 13 BUN 36 H Creatinine 5.32 H* Estim Creat Clear Calc 12.1 Estimated GFR 11 POC Glucose 180 H 100 Random Glucose Fasting Glucose 100 H Calcium 8.6 Magnesium Total Bilirubin 0.4 Direct Bilirubin AST 23 ALT 19 Alkaline Phosphatase 260 H Total Protein 7.3 Albumin 2.7 L Urine Color Urine Appearance Urine pH Ur Specific [place] Urine Protein Urine Glucose (UA) Urine Ketones Urine Blood Urine Nitrite Ur Leukocyte Esterase Urine RBC Urine WBC Ur Squamous Epith Cells Urine Bacteria Hyaline Casts Stool Occult Blood Urine Opiates Screen Urine Fentanyl Screen Ur Barbiturates Screen Ur Phencyclidine Scrn Ur Amphetamines Screen U Benzodiazepines Scrn Urine Cocaine Screen U Marijuana (THC) Screen Ethyl Alcohol Hep Bs Antigen Hep Bs Antibody Hep B Core Total Ab Blood Type Antibody Screen Crossmatch 02/11/23 02/11/23 02/11/23 12:21 16:41 20:09 WBC RBC Hgb Hct MCV MCH MCHC RDW Plt Count MPV Immature Gran % (Auto) Neut % (Auto) Lymph % (Auto) [place] % (Auto) Eos % (Auto) Baso % (Auto) Lymph # (Auto) [place] # (Auto) Eos # (Auto) Baso # (Auto) Abs Immat Gran (auto) Absolute Neuts (auto) Absolute Nucleated RBC Nucleated RBC % (auto) Smear Tech's Comments PT INR APTT Sodium Potassium Chloride Carbon Dioxide Anion Gap BUN Creatinine Estim Creat Clear Calc Estimated GFR POC Glucose 80 89 211 H Random Glucose Fasting Glucose Calcium Magnesium Total Bilirubin Direct Bilirubin AST ALT Alkaline Phosphatase Total Protein Albumin Urine Color Urine Appearance Urine pH Ur Specific [place] Urine Protein Urine Glucose (UA) Urine Ketones Urine Blood Urine Nitrite Ur Leukocyte Esterase Urine RBC Urine WBC Ur Squamous Epith Cells Urine Bacteria Hyaline Casts Stool Occult Blood Urine Opiates Screen Urine Fentanyl Screen Ur Barbiturates Screen Ur Phencyclidine Scrn Ur Amphetamines Screen U Benzodiazepines Scrn Urine Cocaine Screen U Marijuana (THC) Screen Ethyl Alcohol Hep Bs Antigen Hep Bs Antibody Hep B Core Total Ab Blood Type Antibody Screen Crossmatch 02/12/23 02/12/23 02/12/23 07:16 11:05 15:56 WBC RBC Hgb Hct MCV MCH MCHC RDW Plt Count MPV Immature Gran % (Auto) Neut % (Auto) Lymph % (Auto) [place] % (Auto) Eos % (Auto) Baso % (Auto) Lymph # (Auto) [place] # (Auto) Eos # (Auto) Baso # (Auto) Abs Immat Gran (auto) Absolute Neuts (auto) Absolute Nucleated RBC Nucleated RBC % (auto) Smear Tech's Comments PT INR APTT Sodium Potassium Chloride Carbon Dioxide Anion Gap BUN Creatinine Estim Creat Clear Calc Estimated GFR POC Glucose 130 H 140 H Random Glucose Fasting Glucose Calcium Magnesium Total Bilirubin Direct Bilirubin AST ALT Alkaline Phosphatase Total Protein Albumin Urine Color Urine Appearance Urine pH Ur Specific [place] Urine Protein Urine Glucose (UA) Urine Ketones Urine Blood Urine Nitrite Ur Leukocyte Esterase Urine RBC Urine WBC Ur Squamous Epith Cells Urine Bacteria Hyaline Casts Stool Occult Blood Urine Opiates Screen Urine Fentanyl Screen Ur Barbiturates Screen Ur Phencyclidine Scrn Ur Amphetamines Screen U Benzodiazepines Scrn Urine Cocaine Screen U Marijuana (THC) Screen Ethyl Alcohol Hep Bs Antigen Negative Hep Bs Antibody REACTIVE Hep B Core Total Ab Nonreactive Blood Type Antibody Screen Crossmatch 02/12/23 02/12/23 02/13/23 18:27 20:53 07:47 WBC RBC Hgb Hct MCV MCH MCHC RDW Plt Count MPV Immature Gran % (Auto) Neut % (Auto) Lymph % (Auto) [place] % (Auto) Eos % (Auto) Baso % (Auto) Lymph # (Auto) [place] # (Auto) Eos # (Auto) Baso # (Auto) Abs Immat Gran (auto) Absolute Neuts (auto) Absolute Nucleated RBC Nucleated RBC % (auto) Smear Tech's Comments PT INR APTT Sodium Potassium Chloride Carbon Dioxide Anion Gap BUN Creatinine Estim Creat Clear Calc Estimated GFR POC Glucose 114 146 H 99 Random Glucose Fasting Glucose Calcium Magnesium Total Bilirubin Direct Bilirubin AST ALT Alkaline Phosphatase Total Protein Albumin Urine Color Urine Appearance Urine pH Ur Specific [place] Urine Protein Urine Glucose (UA) Urine Ketones Urine Blood Urine Nitrite Ur Leukocyte Esterase Urine RBC Urine WBC Ur Squamous Epith Cells Urine Bacteria Hyaline Casts Stool Occult Blood Urine Opiates Screen Urine Fentanyl Screen Ur Barbiturates Screen Ur Phencyclidine Scrn Ur Amphetamines Screen U Benzodiazepines Scrn Urine Cocaine Screen U Marijuana (THC) Screen Ethyl Alcohol Hep Bs Antigen Hep Bs Antibody Hep B Core Total Ab Blood Type Antibody Screen Crossmatch 02/13/23 02/13/23 02/13/23 08:47 11:26 13:13 WBC 11.0 H RBC 2.47 L Hgb 7.4 L Hct 22.8 L MCV 92.3 MCH 30.0 MCHC 32.5 RDW 13.2 Plt Count 281 MPV 10.9 Immature Gran % (Auto) Neut % (Auto) Lymph % (Auto) [place] % (Auto) Eos % (Auto) Baso % (Auto) Lymph # (Auto) [place] # (Auto) Eos # (Auto) Baso # (Auto) Abs Immat Gran (auto) Absolute Neuts (auto) Absolute Nucleated RBC 0.000 Nucleated RBC % (auto) 0.0 Smear Tech's Comments PT INR APTT Sodium 128 L Potassium 3.9 Chloride 96 Carbon Dioxide 20 L Anion Gap 16 BUN 33 H Creatinine 4.33 H* Estim Creat Clear Calc 14.9 Estimated GFR 14 POC Glucose 166 H 166 H Random Glucose 135 H Fasting Glucose Calcium 8.7 Magnesium Total Bilirubin Direct Bilirubin AST ALT Alkaline Phosphatase Total Protein Albumin Urine Color Urine Appearance Urine pH Ur Specific [place] Urine Protein Urine Glucose (UA) Urine Ketones Urine Blood Urine Nitrite Ur Leukocyte Esterase Urine RBC Urine WBC Ur Squamous Epith Cells Urine Bacteria Hyaline Casts Stool Occult Blood Urine Opiates Screen Urine Fentanyl Screen Ur Barbiturates Screen Ur Phencyclidine Scrn Ur Amphetamines Screen U Benzodiazepines Scrn Urine Cocaine Screen U Marijuana (THC) Screen Ethyl Alcohol Hep Bs Antigen Hep Bs Antibody Hep B Core Total Ab Blood Type Antibody Screen Crossmatch 02/13/23 02/13/23 02/14/23 16:15 20:05 06:03 WBC 8.8 RBC 2.54 L Hgb 7.5 L Hct 23.3 L MCV 91.7 MCH 29.5 MCHC 32.2 RDW 13.1 Plt Count 268 MPV 10.9 Immature Gran % (Auto) Neut % (Auto) Lymph % (Auto) [place] % (Auto) Eos % (Auto) Baso % (Auto) Lymph # (Auto) [place] # (Auto) Eos # (Auto) Baso # (Auto) Abs Immat Gran (auto) Absolute Neuts (auto) Absolute Nucleated RBC 0.000 Nucleated RBC % (auto) 0.0 Smear Tech's Comments PT INR APTT Sodium 129 L Potassium 4.4 Chloride 96 Carbon Dioxide 21 L Anion Gap 16 BUN 45 H Creatinine 5.48 H* Estim Creat Clear Calc 11.8 Estimated GFR 10 POC Glucose 116 H 192 H Random Glucose 109 Fasting Glucose Calcium 8.9 Magnesium Total Bilirubin Direct Bilirubin AST ALT Alkaline Phosphatase Total Protein Albumin Urine Color Urine Appearance Urine pH Ur Specific [place] Urine Protein Urine Glucose (UA) Urine Ketones Urine Blood Urine Nitrite Ur Leukocyte Esterase Urine RBC Urine WBC Ur Squamous Epith Cells Urine Bacteria Hyaline Casts Stool Occult Blood Urine Opiates Screen Urine Fentanyl Screen Ur Barbiturates Screen Ur Phencyclidine Scrn Ur Amphetamines Screen U Benzodiazepines Scrn Urine Cocaine Screen U Marijuana (THC) Screen Ethyl Alcohol Hep Bs Antigen Hep Bs Antibody Hep B Core Total Ab Blood Type Antibody Screen Crossmatch 02/14/23 07:46 WBC RBC Hgb Hct MCV MCH MCHC RDW Plt Count MPV Immature Gran % (Auto) Neut % (Auto) Lymph % (Auto) [place] % (Auto) Eos % (Auto) Baso % (Auto) Lymph # (Auto) [place] # (Auto) Eos # (Auto) Baso # (Auto) Abs Immat Gran (auto) Absolute Neuts (auto) Absolute Nucleated RBC Nucleated RBC % (auto) Smear Tech's Comments PT INR APTT Sodium Potassium Chloride Carbon Dioxide Anion Gap BUN Creatinine Estim Creat Clear Calc Estimated GFR POC Glucose 92 Random Glucose Fasting Glucose Calcium Magnesium Total Bilirubin Direct Bilirubin AST ALT Alkaline Phosphatase Total Protein Albumin Urine Color Urine Appearance Urine pH Ur Specific [place] Urine Protein Urine Glucose (UA) Urine Ketones Urine Blood Urine Nitrite Ur Leukocyte Esterase Urine RBC Urine WBC Ur Squamous Epith Cells Urine Bacteria Hyaline Casts Stool Occult Blood Urine Opiates Screen Urine Fentanyl Screen Ur Barbiturates Screen Ur Phencyclidine Scrn Ur Amphetamines Screen U Benzodiazepines Scrn Urine Cocaine Screen U Marijuana (THC) Screen Ethyl Alcohol Hep Bs Antigen Hep Bs Antibody Hep B Core Total Ab Blood Type Antibody Screen Crossmatch Airway Mallampati Class: III TM Dist: >3cm Neck ROM: Full Partial: Upper Heart: [id number] Lungs: cta b/l Assessment and Plan Assessment Anesthesia Assessment: Anesthesia Plan Discussed and Chart Reviewed Final Anesthetic Review Family History of Problems with Anesthesia: No History of Problems with Anesthesia: No NPO: Yes ASA Class: IV Final Preanesthetic Review: No Changes in Pt Med Stat, Meds/Allgs Chart Reviewed, Consent Obtained/Reviewed and Anes Risks/Benef Reviewed Patient Risk: High Procedure Risk: High Assessment/Block/Sedation in SS: Assess/Block/Sedation-SS Anesthetic Plan Anesthetic Plan: MAC: and Agree w/ Assess. and Plan Disposition: Standard PACU
--- NOTE | 2023-02-14 09:53 | MHC.SHP ---
Pre-Procedural Eval Section A Date of Service: 02/14/23 The patient is an INPATIENT: Yes The History & Physical has been completed within 30 days and I have reviewed it.: Yes Section B Chief Complaint: Garry,Hyperkalemia Allergies: Allergies Allergy/AdvReac Type Severity Reaction Status Date / Time metformin AdvReac Unknown Verified 01/24/23 14:42 Plan Diagnosis/Plan: Unchanged I have reviewed the history and physical and performed a pertinent physical examination on my patient. No changes have occurred unless specified. Anemia work up with egd,colo Time Spent With Patient Time: Total time managing care of this patient today ____ minutes.
--- NOTE | 2023-02-14 09:53 | W.PM.OPN ---
Operative Note Operative Note Date of Service: 02/14/23 Narrative: Operative Information Procedure Description: EGD, Colonoscopy Indication: anemia Anesthesia: MAC FLEXIBLE TRANSORAL UPPER GASTROINTESTINAL ENDOSCOPY AND COLONOSCOPY PROCEDURE NOTE UPPER ENDOSCOPY Consent: Indications for the procedure and potential complications of bleeding, perforation, reaction to medications and missed diagnosis were discussed with the patient and informed consent was obtained. Instrument: Olympus GIF H 190 J mid size upper endoscope Monitoring: Vital signs and clinical assessment, continuous EKG monitoring, Pulse oximetry, Carbon Dioxide monitoring and blood pressure monitoring were done throughout the procedure. Procedure: The patient was placed in the left lateral decubitis position and pre-procedure medications were administered and a bite block was placed. The endoscope was inserted into the mouth and advanced under direct vision to the third part of duodenum. A careful inspection was made as the upper endoscope was withdrawn including a retroflexed examination of the proximal stomach; Findings and interventions are described below. Findings: Larynx:normal Esophagus: GE junction at 44 cm, diaphragm hiatus at 44 cm, normal mucosa Stomach: Normal mucosa. Biopsies were obtained. Grade 2 flap valve on retroflexed examination of the cardia. Duodenum: Bulbar duodenitis, bx taken No old or fresh blood, bleeding sites noted Intervention: Biopsies as noted above COLONOSCOPY Instrument: Olympus variable stiffness pediatric scope 190L Colonoscopy Monitoring: Vital signs and clinical assessment, continuous EKG monitoring, Pulse oximetry, Carbon Dioxide monitoring and blood pressure monitoring were done throughout the procedure. Colon withdrawal time was 15 minutes. Procedure: The patient was placed in the left lateral decubitis position and pre-procedure medications were administered. After a digital rectal examination of the ano-rectum, the video colonoscope was inserted into the rectum and advanced through the colon to the cecum/TI. The colonoscope was slowly withdrawn in a retrograde panoramic fashion and the colon mucosa was carefully examined including a retroflexed view of the rectum. Findings and interventions are described below. Procedure Difficulty:moderate Findings: Terminal Ileum-not intubated, over the ileocecal valve 6-8 mm sessile polyp removed with cold snare, hemospray applied due to oozing Cecum:normal Ascending Colon: normal Transverse Colon - x 2 sessile polyps 10-11 mm removed with cold snare, x 1 lesion clipped with 3 clips and hemospray applied, second lesion with hemospray applied Descending Colon:normal Sigmoid Colon: normal Rectum: Retroflexion with small internal hemorrhoids, grade I Anorectum - normal Colon preparation: [place] Bowel Preparation Scale Right colon; 2 Transverse colon: 1-2 Left colon; 1-2 (0 = Unprepared colon segment with mucosa not seen due to solid stool that cannot be cleared. 1 = Portion of mucosa of the colon segment seen, but other areas of the colon segment not well seen due to staining, residual stool and/or opaque liquid. 2 = Minor amount of residual staining, small fragments of stool and/or opaque liquid, but mucosa of colon segment seen well. 3 = Entire mucosa of colon segment seen well with no residual staining, small fragments of stool or opaque liquid) Impression and Post Procedure Diagnosis: Endoscopy Findings: duodenitis Colonoscopy Findings: polyps internal hemorrhoids Plan: Await Pathology results Repeat Colonoscopy in 1 year due to fair prep or earlier if clinically indicated High fiber diet leaflet avoid straining at stool, epsom salts and sitz bath, anusol supps or cream low dose PPI if h pylori pos then treat if ongoing anemia then capsule endoscopy Above findings were reviewed with the patient and relevant handouts were provided if indicated.
[2023-02-14 12:19] LABS: Glucose, Whole Blood 127 mg/dL (60-115)
--- NOTE | 2023-02-14 14:45 | MHC.CM.PN ---
CM attempted to meet with Patient at bedside in HD but he was sleeping soundly. CM spoke with Patient's Son/Kingsley @ [phone], who will provide transportation to home and IMM was addressed. A referral was made to [facility], who has been made aware of today's dc. MT will fax dc summary to Kayce @ [facility] as soon as it is available.
--- NOTE | 2023-02-14 14:55 | P.F2F_ITS ---
Service Date Service Date: 02/14/23 Encounter Date of encounter: 02/14/23 Reasons for Services Signs and symptoms assessed: Gross Deconditioning, Impaired Bed Mobility, Impaired Gait Pattern, Impaired Joint ROM,Impaired Safety,Impaired Skin Integrity ,Impaired Standing Balance, Impaired Transfer Ability, Impaired Trunk Control,Muscle Weakness,Pain Reason for group home: medication management, medication treatment, teach disease management and other (new HD start) Reason for physical therapy: home safety and mobility, therapeutic exercises, gait/transfer training, assess need for DME, ADL training and energy conservation MD Overseeing Care: Marline Richard Homebound: Leaving the home is medically contraindicated at this time without the asist of a device and/or another person due th the listed conditions above and below. Reason homebound: unsteady gait / fall risk and weakness related to hospital stay Homebound supporting statement: Bed Mobility, Transfer Training, Therapeutic Activities, Therapeutic Exercise, Patient Education, Safety,Balance Certification: Based on the above findings, I certify that this patient is confined to the home and needs intermittent group home care, physical therapy and/or speech therapy, or continues to need occupational therapy. The patient is under my care, and I have initiated the establishment of the plan of care. The patient will be followed by a physician who will periodically review the plan of care. Time Spent With Patient Time: Total time managing care of this patient today ____ minutes.
--- NOTE | 2023-02-14 15:19 | P.DS_ITS ---
DS: Providers Provider Date of Service: 02/14/23 Date of admission: 02/06/23 20:00 Date of discharge: 02/14/23 Primary care physician: Marline Richard MD Consults: 02/06/23 19:57 Consult to Nephrology Routine Consulting Provider: [facility] Reason for consultation: keya, hyperkalemia, uremia 02/07/23 07:36 Consult to Gastroenterology Routine Consulting Provider: [facility] Gastroenterology Services Reason for consultation: abemia FOBT+ 02/07/23 12:21 Consult to Vascular Surgery Routine Consulting Provider: [facility] Vascular Services Reason for consultation: fistual 02/10/23 16:54 Consult to Wound Care Routine Reason for consultation: ? PRESSURE WOUND/MACERATION/EXCORIATION DS: Diagnosis Discharge Diagnosis (1) ESRD (end stage renal disease): Status: Acute (2) Anemia in ESRD (end-stage renal disease): Status: Acute (3) Occult blood positive stool: Status: Acute (4) Duodenitis: Status: Acute (5) Colon polyps: Status: Acute (6) Internal hemorrhoids: Status: Acute (7) Metabolic acidosis: Status: Acute (8) Hyperkalemia: Status: Acute (9) Uremic encephalopathy: Status: Acute DS: Summary Hospital Course Hospital Course: from admission H+P by hospitalist Federico Loyd, 02/06/23: 67 year old male with a PMH of DM type 2, s/p L BKA and R TMA, Stabe 3b CKD, HTN, HLD, HFpEF, Renal artery stenosis, LIVE, HLD and PAD, recently discharged from [facility] 02/01/23 after hospitalization for KEYA on ckd 3b requiring temproary HD, on discharge temp cath removed, creatinine was stable around 5.5 with good urine output, hypotnesion that resolved with med adjustment, DM with hyopglycemia (meds were discontinued), acalculous cholecystitis treated with cholecystotomy (drain still in place, on augmentin), now presenting with AMS. family called EMS as patient was more lethargic than usual, also choelcystotomy tube was leaking. glucose on EMS arrival was 60, patient was awake alert, confused, in ED hgb 6.2, k = 6, bicarb 46, creatiine 8.28, bun 90. 67yo M with DM2, CKD3, R renal artery stenosis, hx L BKA + R TMA, HLD, HFpEF, LORENZO, LIVE, HLD, PAD, and recent acalculous cholecystitis with cholecystotomy tube presenting with altered mental status was admitted for KEYA, progressed to ESRD. Hospital course by problem: acute metabolic encephalopathy due to uremia due to KEYA/CKD3 with hyperkalemia + metabolic acidosis, now ESRD - Nephrology [[facility]] was consulted. A right IJ Permacath was placed on 02/06/23. He underwent induction dialysis with resolution of the encephalopathy, uremia, hyperkalemia, and acidosis. An outpatient HD slot M// at [facility] ER was arranged along with tranportation. acute/chronic anemia due to ESRD occult-blood positive - Transfused 2u pRBCs on 02/06/23. Given epo on 02/14/23 and will receive further epo and IV iron at HD per Nephrology. FOBT positive. GI consulted and an EGD + colonoscopy were done on 02/14/[address] Yuniel Ramos. Results: Larynx:normal Esophagus: GE junction at 44 cm, diaphragm hiatus at 44 cm, normal mucosa Stomach: Normal mucosa. Biopsies were obtained. Grade 2 flap valve on retroflexed examination of the cardia. Duodenum: Bulbar duodenitis, bx taken No old or fresh blood, bleeding sites noted Terminal Ileum-not intubated, over the ileocecal valve 6-8 mm sessile polyp removed with cold snare, hemospray applied due to oozing Cecum:normal Ascending Colon: normal Transverse Colon - x 2 sessile polyps 10-11 mm removed with cold snare, x 1 lesion clipped with 3 clips and hemospray applied, second lesion with hemospray applied Descending Colon:normal Sigmoid Colon: normal Rectum: Retroflexion with small internal hemorrhoids, grade I Anorectum - normal He was discharged on PPI with instructions to follow-up with [facility] Gastroenterology for biopsy results. If anemia persists despite PHAN/iron, may require capsule endoscopy. recent acalculous cholecystitis with CCY tube - Has CCY tube with previous plan for total 6 wk from 01/24/23 placement. Continued amoxicillin-clavulanate as per last admission here; discontinue tube and antibiotics 03/07- will need Gen Surg follow-up for tube removal. He was discharged home with VNA services. Time Attestation Discharge coordination time: Greater than 30 minutes Quality: Safe Use of Opioids Does Pt have an Active Cancer Diagnosis on the Problem List?: No Quality: Stroke Does the patient have a stroke diagnosis?: No Physical Exam Vital Signs: Vital Signs: Last Vital Signs Temp 97.3 F 02/14/23 11:49 Pulse 60 02/14/23 11:49 Resp 16 02/14/23 11:49 BP 144/55 H 02/14/23 11:49 Pulse Ox 100 02/14/23 11:49 O2 Del Method Nasal Cannula 02/14/23 11:34 O2 Flow Rate 4 02/14/23 11:34 BMI result Body Mass Index 25.4 Gen: in no acute distress HEENT: sclera anicteric, moist mucus membranes Neck: supple, RIJ tunneled HD catheter Lungs: clear to auscultation bilaterally Heart: regular rate and rhythm, no murmurs Abd: soft, non-tender, non-distended, RUQ CCY tube in place with minimal output Ext: no edema, s/p L BKA, s/p R TMA, LUE fistula healing Skin: warm/well-perfused Neuro: alert and oriented x3, no focal findings Psych: appropriate affect DS: Data Data Completed and Pending Completed studies during hospitalization [Text1]: Laboratory Results WBC 8.8 X10*3/uL (4.8-10.8) 02/14/23 06:03 RBC 2.54 X10*6/uL (4.60-5.80) L 02/14/23 06:03 Hgb 7.5 g/dl (14.0-18.0) L 02/14/23 06:03 Hct 23.3 % (42.0-52.0) L 02/14/23 06:03 MCV 91.7 fL (80.0-98.0) 02/14/23 06:03 MCH 29.5 pg (27.0-33.0) 02/14/23 06:03 MCHC 32.2 g/dl (31.0-36.0) 02/14/23 06:03 RDW 13.1 % (11.0-16.0) 02/14/23 06:03 Plt Count 268 X10*3/uL (160-400) 02/14/23 06:03 MPV 10.9 fL (9.4-12.4) 02/14/23 06:03 Immature Gran % (Auto) 0.8 % (0.0-0.4) H 02/11/23 07:29 Neut % (Auto) 70.9 % (45-73) 02/11/23 07:29 Lymph % (Auto) 7.5 % (20-40) L 02/11/23 07:29 [place] % (Auto) 20.0 % (2-11) H 02/11/23 07:29 Eos % (Auto) 0.4 % (0-4) 02/11/23 07:29 Baso % (Auto) 0.4 % (0-2) 02/11/23 07:29 Lymph # (Auto) 0.6 X10*3/uL (1.2-4.9) L 02/11/23 07:29 [place] # (Auto) 1.7 X10*3/uL (0.1-1.2) H 02/11/23 07:29 Eos # (Auto) 0.0 X10*3/uL (0.0-0.4) 02/11/23 07:29 Baso # (Auto) 0.0 X10*3/uL (0.0-0.2) 02/11/23 07:29 Abs Immat Gran (auto) 0.07 X10*3/uL (0.00-0.03) H 02/11/23 07:29 Absolute Neuts (auto) 6.1 x10*3/uL (2.0-8.3) 02/11/23 07:29 Absolute Nucleated RBC 0.000 X10*3/uL (0.0-0.012) 02/14/23 06:03 Nucleated RBC % (auto) 0.0 /100WBC (0.0-0.2) 02/14/23 06:03 Smear Tech's Comments VERIFIED 02/11/23 07:29 PT 11.9 SEC (11.1-13.3) 02/07/23 11:44 PT Cancelled 02/07/23 11:44 INR 1.0 (0.9-1.1) 02/07/23 11:44 INR Cancelled 02/07/23 11:44 APTT 36.6 SEC (26.0-36.4) H D 02/07/23 11:44 Sodium 129 mmol/L (135-145) L 02/14/23 06:03 Potassium 4.4 mmol/L (3.3-5.1) 02/14/23 06:03 Chloride 96 mmol/L (96-108) 02/14/23 06:03 Carbon Dioxide 21 mmol/L (22-29) L 02/14/23 06:03 Anion Gap 16 (12-20) 02/14/23 06:03 BUN 45 mg/dL (9-16) H 02/14/23 06:03 Creatinine 5.48 mg/dL (0.5-1.4) H* 02/14/23 06:03 Estim Creat Clear Calc 11.8 02/14/23 06:03 Estimated GFR 10 02/14/23 06:03 POC Glucose 127 mg/dL (60-115) H 02/14/23 12:15 Random Glucose 109 mg/dL (60-115) 02/14/23 06:03 Fasting Glucose 100 mg/dL (60-99) H 02/11/23 07:29 Calcium 8.9 mg/dL (8.4-10.2) 02/14/23 06:03 Magnesium 2.3 mg/dL (1.6-2.6) 02/07/23 11:44 Total Bilirubin 0.4 mg/dL (0.0-1.0) 02/11/23 07:29 Direct Bilirubin < 0.2 mg/dL (0.0-0.5) 02/07/23 11:44 AST 23 U/L (5-37) 02/11/23 07:29 ALT 19 U/L (0-40) 02/11/23 07:29 Alkaline Phosphatase 260 U/L (39-117) H 02/11/23 07:29 Total Protein 7.3 g/dL (6.5-8.0) 02/11/23 07:29 Albumin 2.7 g/dL (3.5-5.0) L 02/11/23 07:29 Urine Color Yellow 02/07/23 00:01 Urine Appearance Cloudy 02/07/23 00:01 Urine pH 5.0 (5.0-9.0) 02/07/23 00:01 Ur Specific Armstrong 1.015 (1.005-1.025) 02/07/23 00:01 Urine Protein 300 (3+) mg/dL (Neg-Trace) H 02/07/23 00:01 Urine Glucose (UA) Negative mg/dL (Negative) 02/07/23 00:01 Urine Ketones Negative mg/dL (Negative) 02/07/23 00:01 Urine Blood Negative (Negative) 02/07/23 00:01 Urine Nitrite Negative (Negative) 02/07/23 00:01 Ur Leukocyte Esterase Negative (Negative) 02/07/23 00:01 Urine RBC 0-2 /HPF (0-2) 02/07/23 00:01 Urine WBC 6-10 /HPF (0-5) H 02/07/23 00:01 Ur Squamous Epith Cells 0-2 /HPF (0-2) 02/07/23 00:01 Urine Bacteria None Seen (None Seen) 02/07/23 00:01 Hyaline Casts 3-5 /LPF (0-2) 02/07/23 00:01 Stool Occult Blood POSITIVE (NEGATIVE) 02/06/23 20:37 Urine Opiates Screen Not Detected (Not Detect) 02/07/23 00:01 Urine Fentanyl Screen Not Detected (Not Detect) 02/07/23 00:01 Ur Barbiturates Screen Not Detected (Not Detect) 02/07/23 00:01 Ur Phencyclidine Scrn Not Detected (Not Detect) 02/07/23 00:01 Ur Amphetamines Screen Not Detected (Not Detect) 02/07/23 00:01 U Benzodiazepines Scrn Not Detected (Not Detect) 02/07/23 00:01 Urine Cocaine Screen Not Detected (Not Detect) 02/07/23 00:01 U Marijuana (THC) Screen Not Detected (Not Detect) 02/07/23 00:01 Ethyl Alcohol < 10 mg/dL 02/06/23 17:50 Hep Bs Antigen Negative (Negative) 02/12/23 15:56 Hep Bs Antibody REACTIVE (Nonreactive) 02/12/23 15:56 Hep B Core Total Ab Nonreactive (Nonreactive) 02/12/23 15:56 Blood Type O Positive 02/14/23 09:27 Antibody Screen NEGATIVE 02/14/23 09:27 Crossmatch See Detail 02/06/23 20:57 Impressions Venous Duplex 02/08/23 17:02 IMPRESSION: Left upper extremity venous and arterial mapping predialysis access fistula creation as described above. Chest X-Ray 02/12/23 11:05 IMPRESSION: 1. Interval placement of right-sided tunneled dialysis catheter terminating in the right atrium. 2. Bilateral low lung volumes. 3. Accentuation of pulmonary vasculature. 4. Enlarged cardiac mediastinal silhouette. Pending studies at discharge: Pending at discharge 02/14/23 10:56 Surgical [PTH] Routine Discharge Plan Discharge Anticipated Discharge Date/Time: 02/14/23 17:43 Patient Disposition: Home Health Service Discharge Diagnosis: encephalopathy due to uremia due to end-stage renal disease with hyperkalemia and acidosis acute/chronic anemia due to end-stage renal disease duodenitis colon polyps internal hemorrhoids recent acalculous cholecystitis with cholecystostomy tube in place Referrals: Manish SHEN [Outside] - 1 Week Alec Hankins MD [Physician] - 1 Week Yuniel Ramos MD [Physician] - 2 Weeks Marline Richard MD [Primary Care Provider] - 1 Week Bashir Briggs MD [Physician] - 2 Weeks Discharge Medications: New amoxicillin-pot clavulanate 250-125 mg Tablet 1 tab PO Q12H Qty: 42 0RF omeprazole 40 mg capsule,delayed release(DR/EC) 40 mg PO DAILY Qty: 30 0RF Continued atorvastatin 80 mg tablet 80 mg PO BEDTIME isosorbide mononitrate 60 mg tablet extended release 24 hr 60 mg PO DAILY tamsulosin 0.4 mg capsule 0.4 mg PO BEDTIME docusate sodium 100 mg capsule 100 mg PO BEDTIME gabapentin 300 mg capsule 300 mg PO DAILY aspirin 81 mg tablet,chewable 1 tab PO DAILY hydralazine 50 mg tablet 100 mg PO TID albuterol sulfate [Ventolin HFA] 90 mcg/actuation HFA aerosol inhaler 2 puff INHALATION Q4H PRN (Reason: Wheezing) fluticasone propionate 50 mcg/actuation spray,suspension 2 spray intranasal DAILY PRN (Reason: Congestion) ezetimibe 10 mg tablet 10 mg PO DAILY (DME) FreeStyle Daniel 2 Sensor Kit MISCELLANEOUS Q2W (DME) FreeStyle Daniel 2 Charlotte Misc MISCELLANEOUS QAM carvedilol 25 mg Tablet 25 mg PO BID Qty: 60 0RF Protocol: Hold for SBP/HR < HOLD for SBP < : 90 HOLD for HR < : 60 cholecalciferol (vitamin D3) 1,250 mcg (50,000 unit) capsule 50,000 unit PO BEVERLY nifedipine 30 mg Tablet Extended Release 24hr 90 mg PO DAILY Qty: 30 1RF Protocol: Hold for SBP< HOLD for SBP < : 90 sertraline 50 mg tablet 50 mg PO DAILY Discontinued furosemide 40 mg tablet 40 mg PO BID Discharge Orders: Discharge Order (Routine); Ordered 02/14/23 Ordered By: Nehal Alston Diet: low-potassium low-phospho Activity on Discharge: As tolerated Stand Alone Forms: Patient Portal Discharge page Care Plan Goals: management of ESRD Health Concerns: encephalopathy due to uremia due to end-stage renal disease with hyperkalemia and acidosis - dialysis at [facility] in [place] Mondays, Wednesdays, and Fridays acute/chronic anemia due to end-stage renal disease - iron and erythropoeitin per plumbing warehouse helper as outpatient at dialysis center duodenitis colon polyps internal hemorrhoids - follow up with [facility] GI for results of biopsies - take omeprazole as prescribed recent acalculous cholecystitis with cholecystostomy tube in place - continue amoxicillin-clavulanate until follow-up with General Surgery for removal of tube around 03/07/23 Please follow up with your primary care doctor within 1 week[facility] or worsening symptoms. Plan of Treatment: as above Assessment: See Discharge Summary.
--- NOTE | 2023-02-14 15:26 | PM.PNNEP ---
Subjective Subjective Date of Service: 02/14/23 Interval history: Seen and examined, events noted Physical Exam Vital Signs: Vital Signs: Last Vital Signs Temp 97.3 F 02/14/23 11:49 Pulse 60 02/14/23 11:49 Resp 16 02/14/23 11:49 BP 144/55 H 02/14/23 11:49 Pulse Ox 100 02/14/23 11:49 O2 Del Method Nasal Cannula 02/14/23 11:34 O2 Flow Rate 4 02/14/23 11:34 BMI result Body Mass Index 25.4 Const: General: cooperative, no acute distress, alert and awake HEENT: Head: Yes normocephalic and Yes atraumatic Neck: Neck: Yes supple Resp: Auscultation: clear to auscultation bilaterally and diminished lung sounds Cardio: Rate: regular rate Rhythm: regular rhythm Heart sounds: S1 normal heart sound present and S2 normal heart sound present GI: Palpation (GI): Soft to palpation and nontender Extrem: General: No edema Objective Data Labs 02/14/23 06:03 02/14/23 06:03 Labs: Laboratory Results - last 24 hr 02/13/23 02/13/23 02/14/23 16:15 20:05 06:03 WBC 8.8 RBC 2.54 L Hgb 7.5 L Hct 23.3 L MCV 91.7 MCH 29.5 MCHC 32.2 RDW 13.1 Plt Count 268 MPV 10.9 Absolute Nucleated RBC 0.000 Nucleated RBC % (auto) 0.0 Sodium 129 L Potassium 4.4 Chloride 96 Carbon Dioxide 21 L Anion Gap 16 BUN 45 H Creatinine 5.48 H* Estim Creat Clear Calc 11.8 Estimated GFR 10 POC Glucose 116 H 192 H Random Glucose 109 Calcium 8.9 Blood Type Antibody Screen 02/14/23 02/14/23 02/14/23 07:46 09:27 12:15 WBC RBC Hgb Hct MCV MCH MCHC RDW Plt Count MPV Absolute Nucleated RBC Nucleated RBC % (auto) Sodium Potassium Chloride Carbon Dioxide Anion Gap BUN Creatinine Estim Creat Clear Calc Estimated GFR POC Glucose 92 127 H Random Glucose Calcium Blood Type O Positive Antibody Screen NEGATIVE Microbiology Microbiology Results: Microbiology 02/07/23 Unknown Urine Catheterized - Harris Catheter Urine Culture - Final No growth. Procedures Date of Service Date of Service: 02/14/23 Assessment & Plan Assessment and plan (1) KEYA (acute kidney injury): Status: Inactive (2) (HFpEF) heart failure with preserved ejection fraction: Status: Acute (3) Renal artery stenosis: Status: Inactive (4) ESRD (end stage renal disease): Status: Acute Plan 1. Advanced CKD with history of Dialysis dependent KEYA Now likely ESRD ESRD due to progressive nephron loss from recurrent AKIs as well as backdrop of DM/HTN/vascular disease. Possible R RA stenosis too. proteinuria 1.8 g Dialysis initiation 02/07 via [facility] 2. Anemia: Fe/EPO def--get suppl 3. MBD of CKD 4. HTN: controled; ques signif R LORENZO 5. H/O HF: compnsated REC: HD again today and pull fluid as tolerated; EPO /FE as noted; has oupt HD spot at [facility] ( no spots at [place] at this time--he is on wait list) Time Spent With Patient Time: Total time managing care of this patient today ____ minutes. Progress Note: Quality Stroke Does the patient have a stroke diagnosis?: No
--- NOTE | 2023-02-14 15:31 | MHC.CM.PN ---
DC summary has been faxed to Kayce @ [facility] to [phone].
[2023-02-14 16:26] LABS: Glucose, Whole Blood 121 mg/dL (60-115)
--- NOTE | 2023-02-16 14:50 | P.CDIM_ITS ---
PROVIDER RESPONSE TEXT: To clarify, the appropriate diagnosis supported by the clinical indicators: Hyponatremia QUERY TEXT: PHYSICIAN'S DOCUMENTATION REQUEST Date of Query: 02/14/2023 08:28 AM EST Patient Name: Kingsley Rivero Admit Date: 02/07/2023 Dear Nehal Alston, A review of the medical record indicates additional documentation may be needed. Please review below and update the documentation accordingly. Clinical Indicators: LAB FINDINGS: sodium 128L 129L Fluids Based on the above, is there a diagnosis that correlates with these lab findings: Hyponatremia Labs indicate a diagnosis of (please specify) Other (explain) Clinically unable to determine (explain) Thank you, Lori Murray, CCS, CDIS Use of terms such as suspected, likely, concern for, or probable (associated with a specific diagnosi s that is being evaluated, monitored, or treated as if it exists) are acceptable and can be coded in the inpatient se tting, when documented at the time of discharge. Please use your independent medical judgment in providing your response. THIS QUERY IS PART OF THE PERMANENT MEDICAL RECORD
--- NOTE | 2023-02-16 14:50 | P.CDIM_ITS ---
PROVIDER RESPONSE TEXT: To clarify, the appropriate diagnosis supported by the clinical indicators: Acute metabolic acidosis QUERY TEXT: PHYSICIAN'S DOCUMENTATION REQUEST Date of Query: 02/14/2023 08:26 AM EST Patient Name: Kingsley Rivero Admit Date: 02/07/2023 Dear eNhal Alston, A review of the medical record indicates additional documentation may be needed. Please review below and update the documentation accordingly. Clinical Indicators: PN / - Acute metabolic encephalopathy due to uremia due to KEYA/CKD3 with hyperK and metabolic acid osis. Clarify which of the following accurately represents the acuity of the metabolic acidosis: Possible options might include: Acute metabolic acidosis Other specific Other (explain) Clinically unable to determine (explain) Thank you, Lori Murray, CCS, CDIS Use of terms such as suspected, likely, concern for, or probable (associated with a specific diagnosi s that is being evaluated, monitored, or treated as if it exists) are acceptable and can be coded in the inpatient se tting, when documented at the time of discharge. Please use your independent medical judgment in providing your response. THIS QUERY IS PART OF THE PERMANENT MEDICAL RECORD
== END 2023-02-14 17:22 | disposition home health service (06) | DRG 264 ==
LOC: HO.ED 20:06 → HO.EDOVER 20:14 → HO.IMC 23:33
PROVIDERS: Hospitalist; Internal Medicine Gastroenterology; Internal Medicine Nephrology; Radiology Vascular & Interventional Radiology; Surgery Vascular Surgery; Admitting Provider Internal Medicine; Emergency Provider Emergency Medicine; PCP General Practice; Visit Provider Family Medicine
PROC: 03180ZD Bypass Left Brachial Artery to Upper Arm Vein, Open Approach (ICD-10-PCS; principal; 2023-02-11 08:50)
PROC: 0DB98ZX Excision of Duodenum, Via Natural or Artificial Opening Endoscopic, Diagnostic (ICD-10-PCS; principal; 2023-02-14 15:30)
DX: I13.2 Hypertensive heart and chronic kidney disease with heart failure and with stage 5 chronic kidney disease, or end stage renal disease (principal); G93.41 Metabolic encephalopathy; N18.6 End stage renal disease; N17.9 Acute kidney failure, unspecified; E87.21 Acute metabolic acidosis; E87.1 Hypo-osmolality and hyponatremia; I50.32 Chronic diastolic (congestive) heart failure; K63.5 Polyp of colon; K64.0 First degree hemorrhoids; E87.5 Hyperkalemia; N25.0 Renal osteodystrophy; R19.5 Other fecal abnormalities; N40.0 Benign prostatic hyperplasia without lower urinary tract symptoms; F39 Unspecified mood [affective] disorder; Z99.2 Dependence on renal dialysis; E11.22 Type 2 diabetes mellitus with diabetic chronic kidney disease; D63.1 Anemia in chronic kidney disease; E11.649 Type 2 diabetes mellitus with hypoglycemia without coma; I70.1 Atherosclerosis of renal artery; Z89.512 Acquired absence of left leg below knee; Z79.82 Long term (current) use of aspirin; Z79.899 Other long term (current) drug therapy
CPT/HCPCS: 36415; 36558; 71045; 80048; 80053; 80076; 80307; 81001; 82272; 82947; 83735; 85025; 85027; 85610; 85730; 86704; 86706; 86850; 86900; 86901; 86923; 87086; 87340; 88305; 88342; 90999; 93005; 93971; 94640; 97162; 99285; A4648; A4649; C1750; C1758; C1769; C9113; J0613; J0885; J1644; J1756; J2250; J2704; J2795; J3010; P9016

== ENCOUNTER → 2023-02-06 20:00 | Outpatient (BNV) | payer OTHER, SELFPAY | PROVIDERS: Admitting Provider Internal Medicine; Emergency Provider Emergency Medicine; PCP General Practice; Visit Provider Surgery Vascular Surgery | DX: N18.6 End stage renal disease (principal) | CPT/HCPCS: 36836; 99222; 99232 ==

== ENCOUNTER → 2023-02-06 20:00 | Outpatient (BNV) | payer OTHER, SELFPAY | PROVIDERS: Admitting Provider Internal Medicine; Emergency Provider Emergency Medicine; Visit Provider Internal Medicine | DX: N18.6 End stage renal disease (principal); D63.1 Anemia in chronic kidney disease; R19.5 Other fecal abnormalities; K29.80 Duodenitis without bleeding; K63.5 Polyp of colon; K64.8 Other hemorrhoids; E87.20 Acidosis, unspecified; E87.5 Hyperkalemia; G93.49 Other encephalopathy | CPT/HCPCS: 99223; 99232; 99233; 99239; G0180 ==

== ENCOUNTER → 2023-02-06 20:00 | Outpatient (BNV) | payer OTHER, SELFPAY | PROVIDERS: Admitting Provider Internal Medicine; Emergency Provider Emergency Medicine; PCP General Practice; Visit Provider Internal Medicine Gastroenterology | DX: D64.9 Anemia, unspecified (principal); K29.80 Duodenitis without bleeding; D12.3 Benign neoplasm of transverse colon; D13.39 Benign neoplasm of other parts of small intestine; K64.0 First degree hemorrhoids | CPT/HCPCS: 43239; 45385; 99223 ==

== ENCOUNTER 2023-03-08 09:33 | Outpatient (AMB) | payer OTHER, SELFPAY ==
--- NOTE | 2023-03-08 09:44 | MHC.OFFVIS ---
Intake Vital Signs 03/08/23 09:51 Weight 197 lb BP 161/73 H Blood Pressure Location Rt brachial Position Sitting Pulse 76 Intake Visit Reasons: Consult drain removal Intake Note: Patiet with hx of cholecystitis. Sonali GARCIA from [facility] scheduled this appointment for drain removal. Patient c/o: drain tube stick out like 6 . Patient keeps puching it back. 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 Patient has inadvertently almost pulled the tube out completely and is leaking ascites. Presents here for further assessment. [facility] Medical History Anemia Acute kidney injury superimposed on CKD Hypertension Type 2 diabetes mellitus ESRD (end stage renal disease) CKD (chronic kidney disease) stage 3, GFR 30-59 ml/min Renal artery stenosis Anemia Uncontrolled hypertension Erectile dysfunction (HFpEF) heart failure with preserved ejection fraction Osteomyelitis CKD stage 3 due to type 2 diabetes mellitus LIVE (iron deficiency anemia) Hyperlipidemia associated with type 2 diabetes mellitus Kidney disease High cholesterol HTN (hypertension) Diabetes PAD (peripheral artery disease) Surgical History Status post transmetatarsal amputation of left foot Hx of amputation History of amputation of right forefoot H/O shoulder surgery Family History Other No family history of coronary artery disease Social History Household Members: None Housing: Apartment Do you presently have visiting nurse or other home services: Yes ([employer] ONLY) Alcohol intake: current Alcohol intake frequency: a few times a month Alcohol type: beer Comment: previously medicated with IV morphine Patient Tobacco Use Status: Never used Tobacco Tobacco use type: Cigarette Second Hand Smoke Exposure: No Substance Use Type: Crack/Cocaine Advance Directives Date on File: 02/02/22 service: No Current occupational status: retired Physical Exam Vital Signs: Last Vital Signs Pulse 76 03/08/23 09:51 BP 161/73 H 03/08/23 09:51 GI Other: Abdomen protuberant, soft, perineal mass catheter right lower quadrant almost completely removed. Ascites leaking. Office Procedures Excision Details: Risks, benefits, alternatives of removal of at IR placed perineal catheter and placement of suture at the exit site reviewed the patient and included but not limited to bleeding, infection, leakage, numbness, pain, scarring the patient was to proceed. After appropriate positioning, patient underwent 1% lidocaine and Betadine prep. Perineal the catheter was uneventfully removed. A pursestring suture of 2-0 Prolene was then placed around the exit site. Bacitracin and dressing applied. Patient tolerated procedure well. Procedure code (CPT) selection complete Office Meds lidocaine 1 %-epinephrine 1:100,000 injection solution Performing Provider: Bashir Briggs MD Performing Location: [facility] Administered by: Bashir Briggs MD on 03/08/23 10:46 Dose Route Admin Location Dispensed Lot Number Expiration Date NDC Professional Housing Consultant 5 mL Infiltration 5 mL Assessment & Plan Assessment & Plan (1) Peritoneal dialysis catheter dysfunction: Code(s): T85.611A - Breakdown (mechanical) of intraperitoneal dialysis catheter, initial encounter Plan: Patient has been given local instructions, and will see me in approximately 1 weeks time for suture removal or p.r.n.. Patient will probably need repeat IR catheter drainage in future because of his persistent ascites. This will be deferred to patient's medical and gastroenterology physicians. Orders: Orders AMB Excision Today T85.611A - Breakdown (mechanical) of intraperitoneal dialysis catheter, initial encounter Coding Level of Care Code New Pt Level 5 (18264) Diagnoses Peritoneal dialysis catheter dysfunction T85.611A
[2023-03-08 09:51] VITALS: BP 161/73; PULSE 76
== END 2023-03-08 10:46 | disposition home or self-care (01) ==
PROVIDERS: PCP General Practice; Visit Provider Surgery
DX: T85.611A Breakdown (mechanical) of intraperitoneal dialysis catheter, initial encounter (principal)
CPT/HCPCS: 99214

== ENCOUNTER → 2023-03-08 09:33 | Outpatient (BNVA) | payer OTHER, SELFPAY | PROVIDERS: PCP General Practice; Visit Provider Surgery | DX: T85.611A Breakdown (mechanical) of intraperitoneal dialysis catheter, initial encounter (principal) | CPT/HCPCS: 99212 ==

== ENCOUNTER 2023-03-21 13:18 | Outpatient (AMB) | payer OTHER, SELFPAY ==
--- NOTE | 2023-03-21 13:17 | MHC.OFFVIS ---
Intake Intake Visit Reasons: overdue follow up fistula placement 02/11/2023 Intake Note: Pt is still using permacath and will be starting dialysis, has some other medical issues as well, going to gastro Accompanied by: Self / Same As Patient Allergies metformin Adverse Reaction (Verified 03/21/23 13:22) Unknown HPI overdue follow up fistula placement 02/11/2023 HPI Details Very pleasant 68-year-old gentleman presents for follow-up regarding end-stage renal disease. He underwent a left upper extremity brachiocephalic fistula. It does not appear to be maturing well. He now presents for follow-up. Of note he is considering peritoneal dialysis. He appears to be doing fairly well from a lower extremity perspective. [facility] Medical History (Updated 03/21/23 @ 17:14 by Lyle Topete MD) PAD (peripheral artery disease) Anemia Acute kidney injury superimposed on CKD Hypertension Type 2 diabetes mellitus ESRD (end stage renal disease) CKD (chronic kidney disease) stage 3, GFR 30-59 ml/min Renal artery stenosis Anemia Uncontrolled hypertension Erectile dysfunction (HFpEF) heart failure with preserved ejection fraction Osteomyelitis CKD stage 3 due to type 2 diabetes mellitus LIVE (iron deficiency anemia) Hyperlipidemia associated with type 2 diabetes mellitus Kidney disease High cholesterol HTN (hypertension) Diabetes Surgical History Status post transmetatarsal amputation of left foot Hx of amputation History of amputation of right forefoot H/O shoulder surgery Family History Other No family history of coronary artery disease Social History Household Members: None Housing: Apartment Do you presently have visiting nurse or other home services: Yes (DELIVERY MAN ONLY) Alcohol intake: current Alcohol intake frequency: a few times a month Alcohol type: beer Comment: previously medicated with IV morphine Patient Tobacco Use Status: Never used Tobacco Tobacco use type: Cigarette Second Hand Smoke Exposure: No Substance Use Type: Crack/Cocaine Advance Directives Date on File: 02/02/22 service: No Current occupational status: retired Review of Systems Const All systems reviewed & are unremarkable except as noted in HPI and below Reports no additional complaints ENT Reports Normal hearing present Card Denies chest pain, Denies chest pain at rest, Denies chest pain with activity and Denies pedal edema Resp Denies cough GI Denies abdominal pain Musc Denies abnormal gait, Denies muscle cramps and Denies radiating pain into limb Skin/Breast Denies skin ulcer and Denies wounds Neuro Reports Normal hearing present and Denies abnormal gait Psych Reports no additional complaints Physical Exam Const General: cooperative, healthy appearing and comfortable Orientation/consciousness: oriented to person, oriented to place and oriented to time HEENT Head: Yes normal to inspection Neck Neck: Yes normal visual inspection Carotids: no bruits Chest Chest palpation & inspection: normal inspection of the chest Resp Effort & Inspection: normal respiratory effort and able to speak in complete sentences Auscultation: clear to auscultation bilaterally, no crackles, no rales, no rhonchi and no wheezes Cardio Other: Left upper extremity no thrill or bruit Rate: regular rate Rhythm: regular rhythm Heart sounds: S1 normal heart sound present and S2 normal heart sound present Bruits: no carotid bruits Peripheral pulses: Peripheral pulses 2+ throughout GI Inspection: Yes normal to inspection Skin Wounds: no wounds Hair: normal Neuro General: oriented to person, oriented to place and oriented to time Cranial nerves: Yes CN's II-XII intact bilaterally and Yes Normal hearing present Cognition (Neuro): normal cognition Motor exam (neuro): 5/5 motor strength present throughout Extrem Other: venous exam: No significant superficial varicosities or spider telangiectasias, minimal edema General: No clubbing, No cyanosis and No edema Psych Appearance: grossly normal Mental Status: mental status grossly normal Speech and movement: Normal speech and movement present Assessment & Plan Assessment & Plan (1) ESRD (end stage renal disease): Code(s): N18.6 - End stage renal disease Plan: His fistula does not appear to be maturing well. He is considering peritoneal dialysis. Should he require hemodialysis may need a new source of access. Will be available if so required. 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 He has had no other interval issues. Appears to be doing relatively well. Will schedule for surveillance noninvasive testing. Thank you for allowing us to assist in his care. If there are questions or concerns please do not hesitate to contact us. Orders: Orders US arterial duplex LE RT 3 Months I73.9 - Peripheral vascular disease, unspecified Coding Level of Care Code Est Pt Level 4 (42267) Diagnoses ESRD (end stage renal disease) N18.6 PAD (peripheral artery disease) I73.9
== END 2023-03-21 13:42 | disposition home or self-care (01) ==
LOC: HO.HVS 13:18
PROVIDERS: PCP General Practice; Visit Provider Surgery Vascular Surgery
DX: N18.6 End stage renal disease (principal); Z99.2 Dependence on renal dialysis; I73.9 Peripheral vascular disease, unspecified; Z89.512 Acquired absence of left leg below knee
CPT/HCPCS: 99214

== ENCOUNTER → 2023-03-21 13:18 | Outpatient (BNVA) | payer OTHER, SELFPAY | PROVIDERS: PCP General Practice; Visit Provider Surgery Vascular Surgery | DX: N18.6 End stage renal disease (principal); I73.9 Peripheral vascular disease, unspecified | CPT/HCPCS: 99212 ==

== ENCOUNTER 2023-03-26 10:38 | Outpatient (AMB) | payer OTHER, SELFPAY ==
[2023-03-26 10:45] VITALS: BP 149/70; PULSE 76
--- NOTE | 2023-03-26 10:45 | MHC.OFFVIS ---
Intake Vital Signs 03/26/23 10:45 Weight 190 lb BP 149/70 H Blood Pressure Location Rt brachial Position Sitting Pulse 76 Intake Visit Reasons: suture removal from drain site Intake Note: Patient here for suture removal from drain site. Patient c/o: itch. Denies oozing, bleeding. Reports site healing well. 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 He has no wound issues or complaints. [facility] Medical History PAD (peripheral artery disease) Anemia Acute kidney injury superimposed on CKD Hypertension Type 2 diabetes mellitus ESRD (end stage renal disease) CKD (chronic kidney disease) stage 3, GFR 30-59 ml/min Renal artery stenosis Anemia Uncontrolled hypertension Erectile dysfunction (HFpEF) heart failure with preserved ejection fraction Osteomyelitis CKD stage 3 due to type 2 diabetes mellitus LIVE (iron deficiency anemia) Hyperlipidemia associated with type 2 diabetes mellitus Kidney disease High cholesterol HTN (hypertension) Diabetes Surgical History Status post transmetatarsal amputation of left foot Hx of amputation History of amputation of right forefoot H/O shoulder surgery Family History Other No family history of coronary artery disease Social History Household Members: None Housing: Apartment Do you presently have visiting nurse or other home services: Yes (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 Drain site healed well. Suture uneventfully removed. Assessment & Plan Assessment & Plan (1) Peritoneal dialysis catheter dysfunction: Code(s): T85.611A - Breakdown (mechanical) of intraperitoneal dialysis catheter, initial encounter Plan Patient has been given local wound instructions, and will follow-up p.r.n.. All questions answered. Coding Level of Care Code Global (46106) Diagnoses Peritoneal dialysis catheter dysfunction T85.611A
== END 2023-03-26 10:56 | disposition home or self-care (01) ==
PROVIDERS: PCP General Practice; Visit Provider Surgery
DX: T85.611A Breakdown (mechanical) of intraperitoneal dialysis catheter, initial encounter (principal); Z48.02 Encounter for removal of sutures
CPT/HCPCS: 99212

== ENCOUNTER → 2023-03-26 10:38 | Outpatient (BNVA) | payer OTHER, SELFPAY | PROVIDERS: PCP General Practice; Visit Provider Surgery | DX: T85.611D Breakdown (mechanical) of intraperitoneal dialysis catheter, subsequent encounter (principal) | CPT/HCPCS: 99212 ==

== ENCOUNTER → 2023-04-10 08:02 | Outpatient (BNVA) | payer OTHER, SELFPAY | PROVIDERS: PCP General Practice; Visit Provider Internal Medicine Gastroenterology ==

== ENCOUNTER → 2023-04-11 13:16 | Outpatient (REF) | payer OTHER, SELFPAY ==
--- NOTE | 2023-04-11 13:18 | CA_ITS ---
Transthoracic Echocardiogram Patient (Last, First, Middle): Kingsley Rivero R Gender: Male Date of : 1955 Age: 68 Procedure Date: 04/11/2023 Procedure Type: Transthoracic Echocardiogram Location: OP Height: 172.72 cm Weight: 74.84 kg BSA: 1.88 m2 Heart Rate: 65 bpm BP: 134 / 68 mmHg Metallurgical Or Materials Technician: SAUD Referring MD: Elia Bonilla MD Brineyard Supervisor: Elia Bonilla MD Symptoms: I50.30 - Unspecified diastolic (congestive) heart failure Study Quality: Fair but adequate ECG Rhythm: Sinus Conclusions: - 1. Normal LV ejection fraction of 60 65% 2. Normal cardiac valvular Doppler 3. Mildly dilated ascending aorta at 3.7 cm 4. No gross pericardial effusion Findings Procedure Information The quality of the study was technically difficult. The study quality is limited by lung artifact. Left Ventricle Normal left ventricular size, thickness, and systolic function. The visually estimated ejection fraction is between 60-65%. Diastolic function is indeterminate on the basis of available data. Right Ventricle Normal right ventricular cavity size. There is borderline right ventricular systolic function. Atria The left atrium is mildly dilated. Interatrial shunt cannot be excluded. The right atrium is normal in size. A catheter is noted in the right atrial cavity. Aortic Valve Normal aortic valve structure and function. There is no aortic valve stenosis. There is no aortic valve regurgitation. Mitral Valve There is mild anterior and posterior mitral leaflet thickening. There is mild mitral annular calcification. There is trace mitral valve regurgitation. There is no mitral valve stenosis. Pulmonic Valve The pulmonic valve was not well visualized. Tricuspid Valve Likely normal tricuspid valve structure and function. Tricuspid regurgitation envelope is inadequate for calculation of right ventricular systolic pressure. Normal right atrial pressure. Great Vessels The pulmonary artery was not well visualized. There is mild dilatation of the ascending aorta measuring 3.70 cm. Venous The inferior vena cava is normal in size and collapses greater than 50% with inspiration. Pericardium/Pleural There is no evidence of pericardial effusion. Prior Study Comparison No significant change compared to prior study dated: 01/28/2023. Measurements 2D Linear Measurements IVSd: 1.14 0.6-0.9/0.6-1.0 cm LVIDd: 4.92 3.9-5.3/4.2-5.9 cm LVIDd Index: 2.62 2.4-3.2/2.2-3.1 cm/m2 LVIDs: 3.85 2.0-3.6 cm LVPWd: 1.03 0.7-1.1 cm LA Diam: 3.80 2.7-3.8/3.0-4.0 cm LAIDs Index: 2.02 1.5-2.3 cm/m2 LV Mass: 246.80 67-162/88-224 g LV Mass Index: 131.28 43-95/49-115 g/m2 LVOT Diam: 2.30 3.0+(-)1.3 cm 2D Systolic Function EF 4C: 58.00 >55% EF 2C: 64.80 >55% EF BiP: 61.80 >55% Mitral Valve MV Pk E: 0.93 MV PK A: 0.93 MV Decel Time: 224.00 E/A: 1.00 E'Lateral: 5.87 E'Medial: 5.00 E/E' Med: 18.50 E/E' Lat: 15.80 PHT: 66.00 MVA PHT: 3.33 Decel [place]: 4.13 Aortic Valve AoV Pk Gerard: 1.20 AoV Pk Grad: 6.00 BRENNA: 3.16 LVOT LVOT Pk Gerard: 0.91 LVOT Mn Gerard: 0.62 LVOT VTI: 0.20 LVOT Pk Grad: 3.00 LVOT Mn Grad: 2.00 LVOT Diam: 2.30 LVOT Area: 4.15 Diastolic Function MV Pk E: 0.93 MV Pk A: 0.93 E/A: 1.00 E'Medial: 5.00 E/E' Med: 18.50 E' Laterial: 5.87 E/E' Lat: 15.80 Right Ventricle TAPSE (mm): 16.10 TVS' Gerard: 13.70 Tricuspid Valve RA Press: 3.00 Great Vessels Aorta Sinus of Valsalva: 3.40 2.0-3.5 cm Ao Asc: 3.70 2.1-3.4 cm Pulmonary Valve PV Pk Gerard: 1.00 Peak PV Grad: 4.00 Updated in Other Vendor System with Status of Final Elia Bonilla MD electronically signed on 04/12/2023 2:53:26 PM with status of Final
== END ==
LOC: HO.CARD 13:16
PROVIDERS: PCP General Practice; Visit Provider Internal Medicine Cardiovascular Disease
DX: I50.30 Unspecified diastolic (congestive) heart failure (principal)
CPT/HCPCS: 93306

== ENCOUNTER → 2023-04-11 13:18 | Outpatient (BNV) | payer OTHER, SELFPAY | PROVIDERS: PCP General Practice; Visit Provider Internal Medicine Cardiovascular Disease | DX: I50.30 Unspecified diastolic (congestive) heart failure (principal); I34.81 Nonrheumatic mitral (valve) annulus calcification | CPT/HCPCS: 93306 ==

== ENCOUNTER 2023-07-15 14:35 | Outpatient (REF) | payer OTHER, SELFPAY ==
[2023-07-15 17:06] LABS: Anion Gap 16 (12-20); Blood Urea Nitrogen 37 mg/dL (9-16); Calcium 8.4 mg/dL (8.4-10.2); Carbon Dioxide 26 mmol/L (22-29); Chloride 105 mmol/L (96-108); Cholesterol 118 mg/dL (<200); Estimated Glomerular Filt Rate 17; Glucose Random 212 mg/dL (60-115); HDL Cholesterol 38 mg/dL (>40); Iron 96 mcg/dL (45-160); LDL Cholesterol Calculated 22 mg/dL (<100); Percent Iron Saturation 51 % (15-50); Potassium 4.4 mmol/L (3.3-5.1); Sodium 143 mmol/L (135-145); Total Iron Binding Capacity 187 mcg/dL (228-428); Triglycerides 294 mg/dL (<150); Unsaturated Iron Binding 91 ug/dL
[2023-07-20 00:34] LABS: Fructosamine 313 umol/L (205-285)
== END 2023-07-15 14:36 | disposition home or self-care (01) ==
LOC: HO.HHCL 14:35
PROVIDERS: Visit Provider General Practice
DX: E11.22 Type 2 diabetes mellitus with diabetic chronic kidney disease (principal); N18.6 End stage renal disease; D50.8 Other iron deficiency anemias; Z99.2 Dependence on renal dialysis; Z79.4 Long term (current) use of insulin
CPT/HCPCS: 36415; 80048; 80061; 82985; 83540

== ENCOUNTER 2023-09-25 19:18 | Inpatient (IN) | payer OTHER, SELFPAY ==
--- NOTE | 2023-09-25 | ECG_ITS ---
Test Reason : shortness of breath Blood Pressure : / mmHG Vent. Rate : 071 BPM Atrial Rate : 071 BPM P-R Int : 256 ms QRS Dur : 096 ms QT Int : 392 ms P-R-T Axes : 050 031 067 degrees QTc Int : 425 ms Sinus rhythm with 1st degree A-V block Otherwise normal ECG When compared with ECG of 06-FEB-2023 17:44, T wave amplitude has increased in Anterior leads Referred By: Generic ED Physician Electronically Signed By:MARIA DOLORES GARNICA MD
--- NOTE | ~2023-09-25 | XR_ITS ---
EXAMINATION: PORTABLE CHEST 1 VIEW CLINICAL INFORMATION: dyspnea. COMPARISON: 02/12/2023. TECHNIQUE: Portable frontal view of the chest was obtained. FINDINGS: Right adjacent venous catheter tip overlies the mid right atrium. Tiny layering bilateral effusions seen with increased bibasilar markings likely reflecting a component of atelectasis. Infectious etiology at the right base would be possible but less likely. There is central vascular prominence but no overt edema. Cardiac silhouette remains prominent as well. Bone anchors in the left humeral head noted. XR/XR chest 1V IMPRESSION: Small layering bilateral effusions with basilar markings more likely due to atelectasis. Infectious etiology at the right base would be possible but less likely.
[2023-09-25 19:40] VITALS: BP 165/61; BP 168/56; PULSE 73; PULSE 80; RESP 15; TEMP 37.8; O2SAT 93; O2SAT 98; BMI 28.7
[2023-09-25 20:04] LABS: MANUAL DIFF FLAG NO
--- NOTE | 2023-09-25 20:04 | PC.NURSE ---
pt biba from home a&ox4, respirations even and unlabored. pt reporting onset of shortness of breath 1 day ago, reports increasing starting today. pt reports missing dialysis today and pt goes MWF. on ems arrival pt sating 88% on room air, placed on 6L nasal cannula and [id number]%. pt on room air sating 92-93%. pt noted to have below the knee left amputation. pt has right chest port and left arm fistula. 20G placed in right forearm, labs obtained and sent to lab.
[2023-09-25 20:13] LABS: Basophils Percent Auto 0.2 % (0-2); Eosinophils Absolute Auto 0.1 X10*3/uL (0.0-0.4); Eosinophils Percent Auto 0.5 % (0-4); Hematocrit 25.8 % (42.0-52.0); Hemoglobin 8.8 g/dl (14.0-18.0); Imm Gran Abs Auto 0.05 X10*3/uL (0.00-0.03); Imm Gran Pct Auto 0.5 % (0.0-0.4); Lymphocytes Absolute Auto 1.1 X10*3/uL (1.2-4.9); Mean Corpuscular HGB Conc 34.1 g/dl (31.0-36.0); Mean Corpuscular Hemoglobin 32.4 pg (27.0-33.0); Mean Corpuscular Volume 94.9 fL (80.0-98.0); Mean Platelet Volume 9.6 fL (9.4-12.4); Monocytes Absolute Auto 1.1 X10*3/uL (0.1-1.2); Monocytes Percent Auto 10.6 % (2-11); Neutrophils Absolute Auto 7.7 x10*3/uL (2.0-8.3); Neutrophils Percent Auto 77.2 % (45-73); Platelet Count 165 X10*3/uL (160-400); Red Blood Count 2.72 X10*6/uL (4.60-5.80); Red Cell Distribution Width 13.5 % (11.0-16.0)
--- OUTSIDE RECORDS SUMMARY | 2023-09-25 20:28 | XMS_ITS | Continuity of Care Document ---
Author Organization [facility] Address [address] [place] [address]- Care Team Providers Care Electrical Engineering Designer Name Role Phone Jose Manuel AHUJA, Marline Ordoñez Primary Care Physician Encounter [facility] Date(s): 03/29/23 - 04/28/23 [facility] [address] [place] [id number]- Allergies, Adverse Reactions, Alerts Substance Reaction Severity Status Remeron Active metFORMIN Active Medications aspirin 81 mg oral tablet 1 tablet = 81 mg, By Mouth, Daily, 0 Refills, Maintenance, 06/01/14 15:32:38 Start Date: 06/01/14 Status: Ordered atorvastatin 80 mg oral tablet 1 tablet = 80 mg, By Mouth, Daily, # 30 tablet, 5 Refills, Maintenance, 01/17/21 15:40:00 EST, Tablet, Partial fill upon patient request if the prescription is for a schedule II opioid drug. Start Date: 01/17/21 Status: Ordered carvedilol 25 mg oral tablet 25 mg, 1, tablet, By Mouth, 2 times a day, # 180 tablet, Refills 0, Maintenance, 03/12/23 9:13:00 EST, Partial fill upon patient request if the prescription is for a schedule II opioid drug. Start Date: 03/12/23 Status: Ordered docusate sodium 100 mg oral capsule 1 capsule = 100 mg, By Mouth, Daily at bedtime, # 20 capsule, 0 Refills, Maintenance, 03/12/23 9:15:00 EST, Capsule, Partial fill upon patient request if the prescription is for a schedule II opioid drug. Start Date: 03/12/23 Status: Ordered ezetimibe 10 mg oral tablet 1 tablet = 10 mg, By Mouth, Daily, # 30 tablet, 0 Refills, Maintenance, 03/12/23 9:12:00 EST, Tablet, Partial fill upon patient request if the prescription is for a schedule II opioid drug. Start Date: 03/12/23 Status: Ordered fluticasone 50 mcg/inh nasal spray 1 sprays, Nares, Both, 2 times a day, # 16 Gm, 0 Refills, Maintenance, 01/17/21 15:41:00 EST, [place], Partial fill upon patient request if the prescription is for a schedule II opioid drug. Start Date: 01/17/21 Status: Ordered FREESTY LIBR KIT 2 SENSOR FREESTY LIBR KIT 2 SENSOR, 0 Refills, Maintenance, 03/12/23 9:11:00 EST Start Date: 03/12/23 Status: Ordered Freestyle Lite Test Strips See Instructions, # 100 each, Refills 11, Tot. Refills 11, Maintenance, Use to check blood sugar 3 times daily. E11.65., 06/24/21 10:22:00 EDT, Supply, 169.5, cm, 06/22/21 13:14:00 EDT, Height Start Date: 06/24/21 Stop Date: 06/19/22 Status: Ordered gabapentin 300 mg oral capsule 300 mg, 1, capsule, By Mouth, Daily, Refills 0, Maintenance, 03/12/23 9:13:00 EST, Partial fill upon patient request if the prescription is for a schedule II opioid drug. Start Date: 03/12/23 Status: Ordered glipiZIDE 10 mg oral tablet 1 tablet = 10 mg, By Mouth, 2 times a day, # 90 tablet, 0 Refills, Maintenance, 03/12/23 9:16:00 EST, Tablet, Partial fill upon patient request if the prescription is for a schedule II opioid drug. Start Date: 03/12/23 Status: Ordered hydrALAZINE 50 mg oral tablet 2 tablet = 100 mg, By Mouth, 3 times a day, # 360 tablet, 0 Refills, Maintenance, 03/12/23 9:14:00 EST, Tablet, Partial fill upon patient request if the prescription is for a schedule II opioid drug. Start Date: 03/12/23 Status: Ordered isosorbide mononitrate 60 mg oral tablet, extended release 1 tablet = 60 mg, By Mouth, Daily in AM, # 30 tablet, 0 Refills, Maintenance, 03/12/23 8:13:00 EST,ER Tablet, Partial fill upon patient request if the prescription is for a schedule II opioid drug. Start Date: 03/12/23 Status: Ordered Januvia 100 mg oral tablet = 100 mg, By Mouth, Daily, # 30 tablet, 0 Refills, Maintenance, 01/17/21 15:43:00 EST, Tablet, Partial fill upon patient request if the prescription is for a schedule II opioid drug. Start Date: 01/17/21 Status: Ordered NIFEdipine (Eqv-Procardia XL) 30 mg oral tablet, extended release 1 tablet = 30 mg, By Mouth, Daily, # 90 tablet, 0 Refills, Maintenance, 03/12/23 9:12:00 EST, ER Tablet, Partial fill upon patient request if the prescription is for a schedule II opioid drug. Start Date: 03/12/23 Status: Ordered omeprazole 40 mg oral enteric coated capsule 1 capsule = 40 mg, By Mouth, Daily, # 30 capsule, 0 Refills, Maintenance, 03/12/23 9:12:00 EST, EC Capsule, Partial fill upon patient request if the prescription is for a schedule II opioid drug. Start Date: 03/12/23 Status: Ordered tamsulosin 0.4 mg oral capsule 0.4 mg, 1, capsule, By Mouth, Daily, # 90 capsule, Refills 0, Maintenance, 01/17/21 15:44:00 EST, Partial fill upon patient request if the prescription is for a schedule II opioid drug. Start Date: 01/17/21 Status: Ordered traZODone 50 mg oral tablet 50 mg, 1, tablet, By Mouth, Daily at bedtime, # 30 tablet, Refills 0, Maintenance, 03/12/23 9:10:00EST, Partial fill upon patient request if the prescription is for a schedule II opioid drug. Start Date: 03/12/23 Status: Ordered Tresiba FlexTouch 100 units/mL subcutaneous solution See Instructions, INJECT 25 UNITS SUBCUTANEOUSLY ONCE DAILY, # 15 mL, 1 Refills, Maintenance, 03/29/23 16:09:00 EST, [facility], 169.5, cm, 03/12/23 8:18:00 EST, Height, 64.8, kg,03/12/23 9:18:00 EST, Dry Weight Start Date: 03/29/23 Status: Ordered Trueplus lancets 33 gauge Trueplus lancets 33 gauge, See Instructions, # 100 each, Refills 11, Tot. Refills 11, Maintenance, use to test bld sugars 3 times daily E11.65, 09/12/22 8:18:00 EDT, Supply, 169.5, cm, 06/22/21 13:14:00 EDT, Height Start Date: 09/12/22 Status: Ordered Ventolin HFA 108 mcg/inh inhalation aerosol with adapter 1 puffs, Inhalation, Every 4 hours, PRN for wheezing, # 8 Gm, 0 Refills, Maintenance, 03/12/23 9:08:00 EST, Aerosol, Partial fill upon patient request if the prescription is for a schedule II opioid drug. Start Date: 03/12/23 Status: Ordered Vitamin D3 50,000 intl units oral capsule 1 capsule = 1,250 mcg, By Mouth, Every week, # 12 capsule, 0 Refills, Maintenance, 03/12/23 9:08:00EST, Capsule, Partial fill upon patient request if the prescription is for a schedule II opioid drug. Start Date: 03/12/23 Status: Ordered Zoloft 50 mg oral tablet 1 tablet = 50 mg, By Mouth, Daily, # 30 tablet, 0 Refills, Maintenance, 01/17/21 15:46:00 EST, Tablet, Partial fill upon patient request if the prescription is for a schedule II opioid drug. Start Date: 01/17/21 Status: Ordered Problem List Condition Confirmation Course Effective Dates Status Health St atus Informant Obese class I Confirmed Active Social History Social History Type Response Smoking Status Former smoker entered on: 06/01/14 Sex Patient Care team information Care Team Personnel Name: Marline Richard MD Position: [facility] Physician - Primary Care Member Role: PCP Address: Address: [address] [place] [address], [address] [place] [address]- Name: Mario Modi MD Position: [facility] Renal MD Member Role: Lifetime Consulting Physician Address: Address: [address] [place] [address] [facility] [place] [address]- Care Team Related Persons Name: LATOSHA ROBERTS Name: NATASHA HARTMANN Address: home [address] [place] [address] Name: DAXA HARTMANN
--- OUTSIDE RECORDS SUMMARY | 2023-09-25 20:28 | XMS_ITS | Continuity of Care Document ---
Author Organization [facility] Address [address] [place] [address]- Care Team Providers Care Theatre Arts Professor Name Role Phone Jose Manuel AHUJA, Marline Ordoñez Primary Care Physician Encounter [facility] [place] Date(s): 07/06/22 - 08/31/22 [facility] [address] [place] [address]- Attending Physician: Corine Vasquez MD Admitting Physician: Corine Vasquez MD Allergies, Adverse Reactions, Alerts Substance Reaction Severity Status Remeron Active Medications amLODIPine 5 mg oral tablet 5 mg, 1, tablet, By Mouth, Daily, # 30 tablet, Refills 0, Maintenance, 01/17/21 15:40:00 EST, Partial fill upon patient request if the prescription is for a schedule II opioid drug. Start Date: 01/17/21 Status: Ordered aspirin 81 mg oral tablet 1 tablet [...] opioid drug. Start Date: 01/17/21 Status: Ordered baclofen 10 mg oral tablet 10 mg, 1, tablet, By Mouth, 3 times a day, # 90 tablet, Refills 5, Maintenance, 01/17/21 15:40:00 EST, Partial fill upon patient request if the prescription is for a schedule II opioid drug. Start Date: 01/17/21 Status: Ordered Cialis By Mouth, Daily, 0 Refills, Maintenance, 06/01/14 15:33:01 Start Date: 06/01/14 Status: Ordered fluticasone 50 mcg/inh nasal spray 1 sprays, Nares, Both, 2 times a day, # 16 Gm, 0 Refills, Maintenance, 01/17/21 15:41:00 EST, [place], Partial fill upon patient request if the prescription is for a schedule II opioid drug. Start Date: 01/17/21 Status: Ordered Freestyle Lite Lancets See Instructions, # 100 each, Refills 11, Tot. Refills 11, Maintenance, Use to check blood sugar 3 times daily. E11.65., 06/24/21 10:22:00 EDT, Supply, 169.5, cm, 06/22/21 13:14:00 EDT, Height Start Date: 06/24/21 Stop Date: 06/19/22 Status: Ordered Freestyle Lite Monitor See Instructions, # 1 each, Refills 1, Tot. Refills 1, Maintenance, Use to check blood sugar 3 times daily. E11.65., 06/24/21 10:22:00 EDT, Supply, 169.5, cm, 06/22/21 13:14:00 EDT, Height Start Date: 06/24/21 Stop Date: 08/23/21 Status: Ordered Freestyle Lite Test Strips See Instructions, # 100 each, Refills 11, Tot. Refills 11, Maintenance, Use to check blood sugar 3 times daily. E11.65., 06/24/21 10:22:00 EDT, Supply, 169.5, cm, 06/22/21 13:14:00 EDT, Height Start Date: 06/24/21 Stop Date: 06/19/22 Status: Ordered furosemide 40 mg oral tablet 40 mg, 1, tablet, By Mouth, Daily, # 30 tablet, Refills 0, Maintenance, 01/17/21 15:41:00 EST, Partial fill upon patient request if the prescription is for a schedule II opioid drug. Start Date: 01/17/21 Status: Ordered gabapentin 100 mg oral capsule 100 mg, 1, capsule, By Mouth, 3 times a day, # 90 capsule, Refills 5, Maintenance, 01/17/21 15:42:00 EST, Partial fill upon patient request if the prescription is for a schedule II opioid drug. Start Date: 01/17/21 Status: Ordered glipiZIDE 10 mg oral tablet 1 tablet = 10 mg, By Mouth, Daily, # 30 tablet, 0 Refills, Maintenance, 01/17/21 15:42:00 EST, [place], Partial fill upon patient request if the prescription is for a schedule II opioid drug. Start Date: 01/17/21 Status: Ordered hydrALAZINE 25 mg oral tablet 25 mg, 1, tablet, By Mouth, 2 times a day, # 60 tablet, Refills 0, Maintenance, 01/17/21 15:42:00 EST, Partial fill upon patient request if the prescription is for a schedule II opioid drug. Start Date: 01/17/21 Status: Ordered Januvia 100 mg oral tablet = 100 mg, By Mouth, Daily, # 30 tablet, 0 Refills, Maintenance, 01/17/21 15:43:00 EST, [place], Partial fill upon patient request if the prescription is for a schedule II opioid drug. Start Date: 01/17/21 Status: Ordered lisinopril 5 mg oral tablet 1 tablet = 5 mg, By Mouth, Daily, 0 Refills, Maintenance, 06/01/14 15:33:09 Start Date: 06/01/14 Status: Ordered losartan 50 mg oral tablet 50 mg, 1, tablet, By Mouth, Daily, # 30 tablet, Refills 0, Maintenance, 01/17/21 15:43:00 EST, Partial fill upon patient request if the prescription is for a schedule II opioid drug. Start Date: 01/17/21 Status: Ordered Metformin By Mouth, 0 Refills, Maintenance, 06/01/14 15:31:29 Start Date: 06/01/14 Status: Ordered metFORMIN 1000 mg oral tablet 1 tablet = 1,000 mg, By Mouth, 2 times a day, # 180 tablet, 0 Refills, Maintenance, 01/17/21 15:44:00 EST, [place], Partial fill upon patient request if the prescription is for a schedule II opioid drug. Start Date: 01/17/21 Status: Ordered metoprolol 100 mg oral tablet, extended release 100 mg, 1, tablet, By Mouth, Daily, # 30 tablet, Refills 0, Maintenance, 01/17/21 15:44:00 EST, Partial fill upon patient request if the prescription is for a schedule II opioid drug. Start Date: 01/17/21 Status: Ordered Simvastatin By Mouth, Daily at bedtime, 0 Refills, Maintenance, 06/01/14 15:31:36 Start Date: 06/01/14 Status: Ordered tamsulosin 0.4 mg oral capsule 0.4 mg, 1, capsule, By Mouth, Daily, # 90 capsule, Refills 0, Maintenance, 01/17/21 15:44:00 EST, Partial fill upon patient request if the prescription is for a schedule II opioid drug. Start Date: 01/17/21 Status: Ordered traMADol 50 mg oral tablet 1 tablet = 50 mg, By Mouth, Every 4 hours, PRN for pain, # 60 tablet, 0 Refills, Maintenance, 01/17/21 15:45:00 EST, [place], Partial fill upon patient request if the prescription is for a schedule IIopioid drug. Start Date: 01/17/21 Status: Ordered tramadol 50 mg oral tablet 1 tablet = 50 mg, By Mouth, Every 12 hours, 0 Refills, Maintenance, 06/01/14 15:30:41 Start Date: 06/01/14 Status: Ordered Tresiba FlexTouch 100 units/mL subcutaneous solution = 25 units, Subcutaneous Infusion, Daily, Take 25 units once daily. E11.65., # 15 mL, 5 Refills, Maintenance, 02/20/22 9:38:00 EST, [facility], Partial fill upon patient request if the prescription is for a schedule II opioid drug.... Start Date: 02/20/22 Status: Ordered Ventolin 90 mcg Inhaler Inhalation, Every 6 hours, Refills 0, Maintenance, 01/17/21 15:45:00 EST Start Date: 01/17/21 Status: Ordered Viagra 100 mg oral tablet 1 tablet = 100 mg, By Mouth, Daily, 1 hour before sexual activity, # 5 tablet, 0 Refills, Maintenance, 01/17/21 15:45:00 EST, Tablet, Partial fill upon patient request if the prescription is for a schedule II opioid drug. Start Date: 01/17/21 Status: Ordered Wellbutrin By Mouth, 0 Refills, Maintenance, 06/01/14 15:32:45 Start Date: 06/01/14 Status: Ordered Zoloft 50 mg oral tablet [...] Team Personnel Name: Marline Richard MD Position: [facility] Physician - Primary Care Member Role: PCP Address: Address: [address] [place] [address], [address] Name: Mario Modi MD Position: [facility] Renal MD Member Role: Lifetime Consulting Physician Address: Address: [address] [place] [address] [facility] [address] Care Team Related Persons Name: LATOSHA ROBERTS Name: NATASHA HARTMANN Address: home [address] [place] [id number] Name: DAXA HARTMANN
--- OUTSIDE RECORDS SUMMARY | 2023-09-25 20:28 | XMS_ITS | Continuity of Care Document ---
Author Organization [facility] Address [address] [facility] [address] [place] [address]- Care Team Providers Care Director Mobile Name Role Phone Marline Richard MD Primary Care Physician [phone] [id number] Date(s[facility] 05/21/23 - 07/17/23 [facility] [address] [facility] [address] [place] [address]- Attending Physician: Roshan Flores MD Admitting Physician: Roshan Flores MD Allergies, Adverse Reactions, Alerts Substance Reaction [...] Gm, 0 Refills, Maintenance, 01/17/21 15:41:00 EST, [place], Partial fill upon patient request if the [...] mL, 1 Refills, Maintenance, 03/29/23 16:09:00 EST, [facility], 169.5, cm, 03/12/23 8:18:00 EST, [...] Team Personnel Name: Marline Richard MD Position: [facility] Physician - Primary Care Member Role: PCP Address: Address: [address] [place] [address], 1st [place] [address]- Name: Mario Modi MD Position: [facility] Renal MD Member Role: Lifetime Consulting Physician Address: Address: [address] [place] [address] [facility] [place] [address]- Care Team Related Persons Name: LATOSHA ROBERTS Name: NATASHA HARTMANN Address: home [address] [place] [address] Name: DAXA HARTMANN
--- OUTSIDE RECORDS SUMMARY | 2023-09-25 20:28 | XMS_ITS | Continuity of Care Document ---
Author Organization [facility] Address [address] [place] [address]- Care Team Providers Care Scout Executive Name Role Phone Jose Manuel AHUJA, Marline Ordoñez Primary Care Physician [phone] Encounter [facility] [place] Date(s): 08/01/22 - 08/31/22 [facility] [address] [place] [address]- Attending Physician: Ancelmo Fisher Admitting Physician: AdmtrAncelmo Referring Physician: Admtr Ar8 Allergies, Adverse Reactions, Alerts Substance Reaction Severity [...] Gm, 0 Refills, Maintenance, 01/17/21 15:41:00 EST, [place], Partial fill upon patient request if the [...] mL, 5 Refills, Maintenance, 02/20/22 9:38:00 EST, [facility], Partial fill upon patient request [...] Care team information Care Team Personnel Name: Jose Manuel AHUJA, Marline Ordoñez [facility] Phys[facility] - Primary Care Member Role: PCP Address: Address: [address] [place] [address], [address] Name: Mario Modi MD [facility] Renal MD Member Role: Lifetime Consulting Physician Address: Address: [address] [place] [address] [facility] [address] Care Team Related Persons Name: LATOSHA ROBERST Name: NATASHA HARTMANN Address: home [address] [place] [address] Name: DAXA HARTMANN
--- OUTSIDE RECORDS SUMMARY | 2023-09-25 20:28 | XMS_ITS | Continuity of Care Document ---
Author Organization [facility] Address [address] [facility] [address] [place] [address]- Care Team Providers Care Traffic Monitor Specialist Name Role Phone Marline Richard MD Primary Care Physician [phone] [place] [facility] [place](s): 06/18/23 - 07/18/23 [facility] [address] [facility] [address] [place] [address]- Attending Physician: Ancelmo Fisher Admitting Physician: Ancelmo Fisher Referring Physician: Ancelmo Fisher Allergies, Adverse Reactions, Alerts Substance Reaction Severity [...] Gm, 0 Refills, Maintenance, 01/17/21 15:41:00 EST, [place], Partial fill upon patient request if the [...] mL, 1 Refills, Maintenance, 03/29/23 16:09:00 EST, [facility], 169.5, cm, 03/12/23 8:18:00 EST, [...] Team Personnel Name: Marline Richard MD Position: [facility] Physician - Primary Care Member Role: PCP Address: Address: [address] [place] [address], 1st [place] [address]- Name: Mario Modi MD Position: [facility] Renal MD Member Role: Lifetime Consulting Physician Address: Address: [address] [place] [address] [facility] [place] [place] [address]- Care Team Related Persons Name: LATOSHA ROBERTS Name: NATASHA HARTMANN Address: home [address] [place] [address] Name: DAXA HARTMANN
--- OUTSIDE RECORDS SUMMARY | 2023-09-25 20:28 | XMS_ITS | Continuity of Care Document ---
Author Organization [facility] Address [address] [place] [address]- Care Team Providers Care General Cleaner Name Role Phone Jose Manuel AHUJA, Marline Ordoñez Primary Care Physician Encounter [facility] [place] Date(s): 09/12/22 - 10/12/22 [facility] [address] [place] [address]- Allergies, Adverse Reactions, Alerts Substance Reaction Severity [...] Gm, 0 Refills, Maintenance, 01/17/21 15:41:00 EST, [place], Partial fill upon patient request if the [...] mL, 5 Refills, Maintenance, 02/20/22 9:38:00 EST, [facility], Partial fill upon patient request if the prescription is for a schedule II opioid drug.... Start Date: 02/20/22 Status: Ordered Trueplus lancets 33 gauge Trueplus lancets 33 gauge, See Instructions, # 100 each, Refills 11, Tot. Refills 11, Maintenance, use to test bld sugars 3 times daily E11.65, 09/12/22 8:18:00 EDT, Supply, 169.5, cm, 06/22/21 13:14:00 EDT, Height Start Date: 09/12/22 Status: Ordered Ventolin 90 mcg Inhaler Inhalation, [...] Name: Jose Manuel AHUJA, Marline Ordoñez Position: [facility] Physician - Primary Care Member Role: PCP Address: Address: [address] [place] [address], [address] Name: Mario Modi MD Position: [facility] Renal MD Member Role: Lifetime Consulting Physician Address: Address: [address] [place] [address] [facility] [address] Care Team Related Persons Name: LATOSHA ROBERTS Name: NATASHA HARTMANN Address: home [address] [place] [address] Name: DAXA HARTMANN
--- OUTSIDE RECORDS SUMMARY | 2023-09-25 20:28 | XMS_ITS | Continuity of Care Document ---
Author Organization [facility] Address [address] [place] [address]- Care Team Providers Care Case Assembler Name Role Phone Jose Manuel AHUJA, Marline Ordoñez Primary Care Physician [phone] Encounter [facility] [place] Date(s): 04/02/22 - 05/02/22 [facility] [address] [place] [address] Allergies, Adverse Reactions, Alerts Substance Reaction Severity [...] Gm, 0 Refills, Maintenance, 01/17/21 15:41:00 EST, [place], Partial fill upon patient request if the [...] mL, 5 Refills, Maintenance, 02/20/22 9:38:00 EST, [facility], Partial fill upon patient request [...] Team Personnel Name: Marline Richard MD Position: [facility] Physician (General Medicine) Member Role: PCP Address: Address: [address] [place] [address]- Care Team Related Persons Name: LATOSHA ROBERTS Name: NATASHA HARTMANN Address: home [address] [place] [phone] Name: DAXA HARTMANN
--- OUTSIDE RECORDS SUMMARY | 2023-09-25 20:29 | XMS_ITS | Continuity of Care Document ---
Author Organization [facility] Address [address] [facility] [address] [place] [address]- Care Team Providers Care Family Living Educator Name Role Phone Jose Manuel AHUJA, Marline Ordoñez Primary Care Physician Encounter [facility] [place] Date(s): 04/24/23 - 06/20/23 [facility] [address] [facility] [address] [place] [address]- Attending Physician: Georgette Gregory MD Admitting Physician: Georgette Gregory MD Allergies, Adverse Reactions, Alerts Substance Reaction [...] Gm, 0 Refills, Maintenance, 01/17/21 15:41:00 EST, [place], Partial fill upon patient request if the [...] mL, 1 Refills, Maintenance, 03/29/23 16:09:00 EST, [facility], 169.5, cm, 03/12/23 8:18:00 EST, Height, [...] Team Personnel Name: Marline Richard MD Position: [facility] Physician - Primary Care Member Role: PCP Address: Address: [address] [place] [address], 1st [place] [address]- Name: Mario Modi MD Position: [facility] Renal MD Member Role: Lifetime Consulting Physician Address: Address: [address] [place] [address] [facility] [place] [address]- Care Team Related Persons Name: LATOSHA ROBERTS Name: NATASHA HARTMANN Address: home [address] [place] [address] Name: DAXA HARTMANN
--- OUTSIDE RECORDS SUMMARY | 2023-09-25 20:29 | XMS_ITS | Continuity of Care Document ---
Author Organization [facility] Address [address] [place] [address]- Care Team Providers Care Pants Maker Name Role Phone Marline Richard MD Primary Care Physician [place] [facility] [place] Date(s): 06/20/23 - 08/14/23 [facility] [address] [place] [phone]- [place] Encounter Diagnosis Screening for colorectal cancer(Discharge Diagnosis) - 07/15/23 Attending Physician: Sandeep Solo MD Admitting Physician: Sandeep Solo MD Referring Physician: Marline Richard MD Allergies, Adverse Reactions, Alerts Substance Reaction [...] Gm, 0 Refills, Maintenance, 01/17/21 15:41:00 EST, [place], Partial fill upon patient request if the [...] UNITS SUBCUTANEOUSLY ONCE DAILY, # 15 mL, 0 Refills, Maintenance, 08/13/23 13:58:00 EDT, [facility], 166, cm, 06/18/23 9:40:00 EDT, Height, 64.8, kg, 03/12/23 9:18:00 EST, Dry Weight Start Date: 08/13/23 Status: Ordered Trueplus lancets 33 gauge Trueplus [...] atus Informant Obese class I Confirmed Active Diagnosis Diagnosis Type Effective Dates Health Status Clinical Service Informant Screening for colorectal cancer Discharge Diagnosis 07/15/23 Social History Social History Type Response Smoking Status Former smoker entered on: 06/01/14 Sex Patient Care team information Care Team Personnel Name: Marline Richard MD Position: [facility] Physician - Primary Care Member Role: PCP Address: Address: [facility], 1st [address] Name: Mario Modi MD Position: [facility] Renal MD Member Role: Lifetime Consulting Physician Address: Address: [address] [place] [address] [facility] [address] Care Team Related Persons Name: LATOSHA ROBERTS Name: NATASHA HARTMANN Address: home [address] [place] [phone] Name: DAXA HARTMANN
[2023-09-25 20:41] LABS: B Type Natriuretic Peptide 1083 pg/mL (<100)
[2023-09-25 20:44] LABS: Alanine Aminotransferase 17 U/L (0-40); Albumin Level 3.5 g/dL (3.5-5.0); Alkaline Phosphatase 127 U/L (39-117); Anion Gap 18 (12-20); Aspartate Amino Transferase 21 U/L (5-37); Bilirubin Total 0.5 mg/dL (0.0-1.0); Blood Urea Nitrogen 46 mg/dL (9-16); Calcium 8.6 mg/dL (8.4-10.2); Carbon Dioxide 24 mmol/L (22-29); Chloride 101 mmol/L (96-108); Creatinine Clr Calc Pharmacy 14.3; Estimated Glomerular Filt Rate 11; Glucose Random 215 mg/dL (60-115); Potassium 4.9 mmol/L (3.3-5.1); Sodium 138 mmol/L (135-145)
--- NOTE | 2023-09-25 20:51 | ED.SOB ---
HPI - SOB/Dyspnea General Chief Complaint: Dyspnea Stated Complaint: DIFF BREATHING, MISSED DIALYSIS Time Seen by Provider: 09/25/23 20:27 History of Present Illness ED Provider: bossman [facility] Narrative: Patient is 68 years old with history of DM type 2, s/p L BKA and R TMA, Stabe 3b CKD, HTN, HLD, HFpEF, Renal artery stenosis, LIVE, HLD and PAD and asthma on hemodialysis MWF was feeling increased short of breath for last 2 days missed the dialysis earlier today came here for worsening of shortness a breath saturating 88% when EMS reached patient is not on oxygen at home patient does meet very small amount of urine Related Data Home Medications ?Medication ?Instructions ?Recorded ?Confirmed sertraline 50 mg tablet 50 mg PO DAILY 04/27/21 02/06/23 albuterol sulfate 90 mcg/actuation 2 puff inhalation Q4H PRN Wheezing 01/13/23 02/06/23 aerosol inhaler (Ventolin HFA) aspirin 81 mg chewable tablet 1 tab PO DAILY 01/13/23 02/06/23 atorvastatin 80 mg tablet 80 mg PO BEDTIME 01/13/23 02/06/23 docusate sodium 100 mg capsule 100 mg PO BEDTIME 01/13/23 02/06/23 ezetimibe 10 mg tablet 10 mg PO DAILY 01/13/23 02/06/23 flash glucose scanning reader 01/13/23 01/21/23 ([employer] Daniel 2 [place]) flash glucose sensor (FreeStyle 01/13/23 01/21/23 Daniel 2 Sensor kit) fluticasone propionate 50 2 spray intranasal DAILY PRN 01/13/23 02/06/23 mcg/actuation nasal Congestion spray,suspension gabapentin 300 mg capsule 300 mg PO DAILY 01/13/23 02/06/23 hydralazine 50 mg tablet 100 mg PO TID 01/13/23 02/06/23 tamsulosin 0.4 mg capsule 0.4 mg PO BEDTIME 01/13/23 02/06/23 cholecalciferol (vitamin D3) 1,250 50,000 unit PO BEVERLY 01/21/23 02/06/23 mcg (50,000 unit) capsule Previous Rx's ?Medication ?Instructions ?Recorded carvedilol 25 mg tablet 25 mg PO BID #60 tabs 01/15/23 nifedipine 30 mg tablet,extended 90 mg PO DAILY #30 tabs 02/01/23 release 24 hr omeprazole 40 mg capsule,delayed 40 mg PO DAILY #30 caps 02/14/23 release isosorbide mononitrate 60 mg 60 mg PO QAM #30 tabs 05/16/23 tablet,extended release 24 hr Allergies Allergy/AdvReac Type Severity Reaction Status Date / Time metformin AdvReac Unknown Verified 09/25/23 19:49 Review of Systems Review of Systems: Yes all other systems are reviewed and are negative [facility] Past Medical History Medical History PAD (peripheral artery disease) Anemia Acute kidney injury superimposed on CKD Hypertension Type 2 diabetes mellitus ESRD (end stage renal disease) CKD (chronic kidney disease) stage 3, GFR 30-59 ml/min Renal artery stenosis Anemia Uncontrolled hypertension Erectile dysfunction (HFpEF) heart failure with preserved ejection fraction Osteomyelitis CKD stage 3 due to type 2 diabetes mellitus LIVE (iron deficiency anemia) Hyperlipidemia associated with type 2 diabetes mellitus Kidney disease High cholesterol HTN (hypertension) Diabetes Surgical History Status post transmetatarsal amputation of left foot Hx of amputation History of amputation of right forefoot H/O shoulder surgery Family History Family History Other No family history of coronary artery disease Social History Social History Household Members: None Housing: Apartment Do you presently have visiting nurse or other home services: Yes ([employer] ONLY) Alcohol intake: current Alcohol intake frequency: a few times a month Alcohol type: beer Comment: previously medicated with IV morphine Patient Tobacco Use Status: Never used Tobacco Tobacco use type: Cigarette Smoked in Last 30 Days: No Second Hand Smoke Exposure: No Use of substances other than those prescribed or required for medical reasons: No Substance Use Type: Crack/Cocaine Advance Directives: Yes Advance Directives on File: Yes Advance Directives Date on File: 02/02/22 Do you have a plan to hurt others: No Plan service: No Current occupational status: retired Physical Exam Vital Signs: Vital Signs: Last Vital Signs Temp 98.3 F 09/26/23 00:00 Pulse 76 07/18/24 00:00 Resp 17 09/26/23 00:00 BP 195/70 H 09/26/23 00:00 Pulse Ox 94 09/26/23 00:00 O2 Del Method Nasal Cannula 09/26/23 00:00 O2 Flow Rate 2 09/26/23 00:00 BMI result Body Mass Index 28.7 Appearance: Alert. Oriented X3. No acute distress. Eyes: pallor+ ENT: Pharynx normal. Oral Mucosa moist Neck: Normal inspection. Neck supple. CVS: Normal heart rate and rhythm. Pulses normal. Respiratory: No respiratory distress. Equal air entry bilateral, prolonged expiration few crackles bilaterally Shiley catheter on the right side Abdomen: Soft and nontender. Bowel sounds are present, no mass palpable, no CVA tenderness Skin: Skin warm and dry. Normal skin color. Normal skin turgor. Extremities: Trace lower extremity edema. No calf tenderness left BKA right MTA Neuro: Oriented X 3. No motor deficit. Medications Administered Generic Name Dose Route Start Last Admin Trade Name Freq PRN Reason Stop Dose Admin Sodium Chloride 3 ml 09/26/23 00:00 09/26/23 00:39 0.9 % Sodium Chloride Flush 3 Ml Syringe IVFLUSH Not Given QSHIFT ANNABELLA Discontinued Medications Generic Name Dose Route Start Last Admin Trade Name Freq PRN Reason Stop Dose Admin Carvedilol 25 mg 09/25/23 23:37 09/26/23 00:02 Carvedilol 25 Mg Tablet PO 09/25/23 23:38 25 mg ONCE ONE Administration Protocol Albuterol Sulfate 2.5 mg/ 0 mg 09/25/23 22:34 09/25/23 22:51 Albuterol/Ipratropium 3 ml INHALE 09/25/23 22:35 5 dose ONCE ONE Administration Furosemide 100 mg 09/25/23 21:16 09/25/23 21:34 Furosemide 100 Mg/10 Ml Vial IVPUSH 09/25/23 21:17 100 mg ONCE ONE Administration Protocol Hydralazine HCl 100 mg 09/25/23 23:37 09/26/23 00:02 Hydralazine Hcl 50 Mg Tablet PO 09/25/23 23:38 100 mg ONCE ONE Administration Protocol Medical Decision Making Medical Decision Making [facility] Narrative: Patient with end-stage renal disease with fluid overload after missing his dialysis patient has improved after giving Lasix in the ER patient urinated about 500 cc will admit patient for dialysis in a.m. patient had elevated troponin without any ischemic changes likely from demand ischemia/renal failure Differential Diagnosis Differential Diagnoses: The differential diagnosis associated with the presentation includes Fluid overload/CHF/ACS/asthma Admission/Observation Consideration of admission/observation: Escalation of care including admission/observation considered Consult Healthcare Provider Management of the patient was discussed with: Hospitalist Lab Data MDM Lab Attestation statement: I reviewed the patient's lab results. 09/25/23 19:58 09/25/23 19:58 Labs: Lab Results 09/25/23 09/25/23 Range/Units 19:58 20:00 WBC 10.0 (4.8-10.8) X10*3/uL RBC 2.72 L (4.60-5.80) X10*6/uL Hgb 8.8 L (14.0-18.0) g/dl Hct 25.8 L (42.0-52.0) % MCV 94.9 (80.0-98.0) fL MCH 32.4 (27.0-33.0) pg MCHC 34.1 (31.0-36.0) g/dl RDW 13.5 (11.0-16.0) % Plt Count 165 D (160-400) X10*3/uL MPV 9.6 (9.4-12.4) fL Immature Gran % (Auto) 0.5 H (0.0-0.4) % Neut % (Auto) 77.2 H (45-73) % Lymph % (Auto) 11.0 L (20-40) % [place] % (Auto) 10.6 (2-11) % Eos % (Auto) 0.5 (0-4) % Baso % (Auto) 0.2 (0-2) % Lymph # (Auto) 1.1 L (1.2-4.9) X10*3/uL [place] # (Auto) 1.1 (0.1-1.2) X10*3/uL Eos # (Auto) 0.1 (0.0-0.4) X10*3/uL Baso # (Auto) 0.0 (0.0-0.2) X10*3/uL Abs Immat Gran (auto) 0.05 H (0.00-0.03) X10*3/uL Absolute Neuts (auto) 7.7 (2.0-8.3) x10*3/uL Absolute Nucleated RBC 0.000 (0.0-0.012) X10*3/uL Nucleated RBC % (auto) 0.0 (0.0-0.2) /100WBC VBG pH 7.46 H (7.32-7.43) VBG pCO2 37 mmHg VBG pO2 107 mmHg VBG HCO3 26 (22-26) mmol/L VBG O2 Saturation 99.0 % VBG Base Excess 2.9 mmol/L Sodium 138 (135-145) mmol/L Potassium 4.9 (3.3-5.1) mmol/L Chloride 101 (96-108) mmol/L Carbon Dioxide 24 (22-29) mmol/L Anion Gap 18 (12-20) BUN 46 H (9-16) mg/dL Creatinine 5.24 H* (0.5-1.4) mg/dL Estim Creat Clear Calc 14.3 Estimated GFR 11 Random Glucose 215 H (60-115) mg/dL Calcium 8.6 (8.4-10.2) mg/dL Total Bilirubin 0.5 (0.0-1.0) mg/dL AST 21 (5-37) U/L ALT 17 (0-40) U/L Alkaline Phosphatase 127 H (39-117) U/L Troponin I High Sens 638.8 H* D (<3.5-35.0) ng/L B-Natriuretic Peptide 1083 H (<100) pg/mL Total Protein 7.0 (6.5-8.0) g/dL Albumin 3.5 (3.5-5.0) g/dL Influenza Type A (PCR) NEGATIVE (Negative) Influenza Type B (PCR) NEGATIVE (Negative) RSV RNA Qual (PCR) NEGATIVE (Negative) SARS-CoV-2 RNA (RT-PCR) NEGATIVE (Negative) Independent Interpretation I performed an independent interpretation of an: EKG Interpretation: Normal sinus rhythm heart rate 71 beats per minute no acute ST T wave changes no acute ischemia Radiology Impression Discussion of test interpretation with radiology: I have reviewed the radiologist's reading. Radiologist Impression: XR/XR chest 1V IMPRESSION: Small layering bilateral effusions with basilar markings more likely due to atelectasis. Infectious etiology at the right base would be possible but less likely. Critical Care Time Critical Care Time Critical Care Time: Yes Total Critical Care Time: 55 Attestation: The patient was critically ill with a high probability of imminent or life threatening deterioration. I spent greater than 60??minutes of discontinuous time evaluating the patient,delivering critical care at the bedside, discussing and evaluating pertinent data with consultants. Critical care time does not include time spent performing separately billable procedures or teaching. Total time spent performing critical care was 55???minutes. Discharge Plan Discharge Clinical Impression: End stage chronic kidney disease, Fluid overload, Elevated troponin Patient Disposition: Admitted As Inpatient
[2023-09-25 20:52] LABS: Influenza A PCR NEGATIVE (Negative); Influenza B PCR NEGATIVE (Negative); Resp Syncy Virus RNA Qual PCR NEGATIVE (Negative); SARS COV2 PCR INHOUSE NEGATIVE (Negative); Troponin-I High Sensitivity 638.8 ng/L (<3.5-35.0)
[2023-09-25 21:01] LABS: VBG Base Excess 2.9 mmol/L; VBG HCO3 26 mmol/L (22-26); VBG pCO2 37 mmHg; VBG pH 7.46 (7.32-7.43); VBG pO2 107 mmHg
[2023-09-25 21:05] LABS: Venous Blood Gas Refer to POC result
[2023-09-25 21:34] VITALS: BP 200/72
[2023-09-25] MEDS: Furosemide 100 MG/10 ML VIAL IVPUSH (21:34)
--- NOTE | 2023-09-25 21:37 | PC.NURSE ---
at this time pt reports he makes urine while being on dialysis. pt medicated per mar at this time.
[2023-09-25] MEDS: Albuterol Sulfate 2.5 MG, Albuterol/Iprat 2.5/0.5MG 3 ML 3 ML INHALE (22:51)
[2023-09-25 22:52] VITALS: PULSE 75; RESP 20; O2SAT 90
--- NOTE | 2023-09-25 23:27 | PM.IMHP ---
History of Present Illness Date of Service: 09/25/23 Chief Complaint: Dyspnea This is a 68-year-old male with pertinent history of left BKA plus right TMA, ESRD on hemodialysis M/W/F, mixed hyperlipidemia, congestive heart failure with preserved ejection fraction, renal artery stenosis, mood disorder, BPH who presents to the emergency department for evaluation of dyspnea. Patient states he has been having dyspnea for the last 2 days. Does not use oxygen at home. Dyspnea is worse with exertion. Admits orthopnea. Patient missed his hemodialysis session on the day of presentation. Does make urine however minimal. No chest pain, wheezing or cough. Patient denies fever, chills, nausea, vomiting, palpitations, abdominal pain, changes in urinary or bowel habits. In the emergency department, patient requiring 2 L supplemental oxygen. Review of Systems Cardiovascular: Cardiovascular: Reports dyspnea on exertion and Reports orthopnea Respiratory: Respiratory: Reports dyspnea on exertion Gastrointestinal: Gastrointestinal: Reports no additional gastrointestinal complaints Genitourinary: Genitourinary: Reports no additional male genitourinary complaints Musculoskeletal: Musculoskeletal: Reports no additional musculoskeletal complaints [facility] Medical History PAD (peripheral artery disease) Anemia Acute kidney injury superimposed on CKD Hypertension Type 2 diabetes mellitus ESRD (end stage renal disease) CKD (chronic kidney disease) stage 3, GFR 30-59 ml/min Renal artery stenosis Anemia Uncontrolled hypertension Erectile dysfunction (HFpEF) heart failure with preserved ejection fraction Osteomyelitis CKD stage 3 due to type 2 diabetes mellitus LIVE (iron deficiency anemia) Hyperlipidemia associated with type 2 diabetes mellitus Kidney disease High cholesterol HTN (hypertension) Diabetes Family History Other No family history of coronary artery disease Surgical History Status post transmetatarsal amputation of left foot Hx of amputation History of amputation of right forefoot H/O shoulder surgery Social History Household Members: None Housing: Apartment Do you presently have visiting nurse or other home services: Yes ([employer] ONLY) Alcohol intake: current Alcohol intake frequency: a few times a month Alcohol type: beer Comment: previously medicated with IV morphine Patient Tobacco Use Status: Never used Tobacco Tobacco use type: Cigarette Smoked in Last 30 Days: No Second Hand Smoke Exposure: No Use of substances other than those prescribed or required for medical reasons: No Substance Use Type: Crack/Cocaine Advance Directives: Yes Advance Directives on File: Yes Advance Directives Date on File: 02/02/22 Do you have a plan to hurt others: No Plan service: No Current occupational status: retired Meds Allergies Allergy/AdvReac Type Severity Reaction Status Date / Time metformin AdvReac Unknown Verified 09/25/23 19:49 Home Medications ?Medication ?Instructions ?Recorded ?Confirmed ?Last Taken ?Type sertraline 50 mg tablet 50 mg PO DAILY 04/27/21 02/06/23 01/21/23 History albuterol sulfate 90 mcg/actuation 2 puff inhalation Q4H PRN Wheezing 01/13/23 02/06/23 Unknown History aerosol inhaler (Ventolin HFA) aspirin 81 mg chewable tablet 1 tab PO DAILY 01/13/23 02/06/23 01/21/23 History atorvastatin 80 mg tablet 80 mg PO BEDTIME 01/13/23 02/06/23 01/20/23 History docusate sodium 100 mg capsule 100 mg PO BEDTIME 01/13/23 02/06/23 01/20/23 History ezetimibe 10 mg tablet 10 mg PO DAILY 01/13/23 02/06/23 01/21/23 History flash glucose scanning reader 01/13/23 01/21/23 Unknown History (FreeStyle Daniel 2 [place]) flash glucose sensor (FreeStyle 01/13/23 01/21/23 Unknown History Daniel 2 Sensor kit) fluticasone propionate 50 2 spray intranasal DAILY PRN 01/13/23 02/06/23 Unknown History mcg/actuation nasal Congestion spray,suspension gabapentin 300 mg capsule 300 mg PO DAILY 01/13/23 02/06/23 01/21/23 History hydralazine 50 mg tablet 100 mg PO TID 01/13/23 02/06/23 01/21/23 History tamsulosin 0.4 mg capsule 0.4 mg PO BEDTIME 01/13/23 02/06/23 01/20/23 History cholecalciferol (vitamin D3) 1,250 50,000 unit PO BEVERLY 01/21/23 02/06/23 01/20/23 History mcg (50,000 unit) capsule Physical Exam Vital Signs and Narrative: Vital Signs: Last Vital Signs Temp 100.1 F 09/25/23 19:40 Pulse 75 09/25/23 22:52 Resp 20 09/25/23 22:52 BP 200/72 H 09/25/23 21:34 Pulse Ox 93 09/25/23 19:40 O2 Del Method Room Air 09/25/23 19:40 BMI result Body Mass Index 28.7 Middle-aged male lying in bed in mild distress on supplemental oxygen Neck supple, JVD + Regular rate and rhythm, S1-S2 heard Bilateral crackles present Abdomen soft nontender, no guarding, no rigidity Patient is awake, alert and oriented to self, place, time and person ; no focal motor deficit Psych: Normal mood Bilateral pedal edema Results Labs 09/25/23 19:58 09/25/23 19:58 Labs: Laboratory Results - last 24 hr 09/25/23 09/25/23 19:58 20:00 MCV 94.9 MCH 32.4 MCHC 34.1 RDW 13.5 Plt Count 165 D MPV 9.6 Immature Gran % (Auto) 0.5 H Neut % (Auto) 77.2 H Lymph % (Auto) 11.0 L [place] % (Auto) 10.6 Eos % (Auto) 0.5 Baso % (Auto) 0.2 Lymph # (Auto) 1.1 L [place] # (Auto) 1.1 Eos # (Auto) 0.1 Baso # (Auto) 0.0 Abs Immat Gran (auto) 0.05 H Absolute Neuts (auto) 7.7 Absolute Nucleated RBC 0.000 Nucleated RBC % (auto) 0.0 VBG pH 7.46 H VBG pCO2 37 VBG pO2 107 VBG HCO3 26 VBG O2 Saturation 99.0 VBG Base Excess 2.9 Anion Gap 18 Estim Creat Clear Calc 14.3 Estimated GFR 11 Random Glucose 215 H Calcium 8.6 Total Bilirubin 0.5 AST 21 ALT 17 Alkaline Phosphatase 127 H Troponin I High Sens 638.8 H* D B-Natriuretic Peptide 1083 H Total Protein 7.0 Albumin 3.5 Influenza Type A (PCR) NEGATIVE Influenza Type B (PCR) NEGATIVE RSV RNA Qual (PCR) NEGATIVE SARS-CoV-2 RNA (RT-PCR) NEGATIVE Imaging Radiologist's Impressions: Impressions Chest X-Ray 09/25/23 20:00 IMPRESSION: Small layering bilateral effusions with basilar markings more likely due to atelectasis. Infectious etiology at the right base would be possible but less likely. Assessment and Plan (1) CHF exacerbation: Status: Acute (2) Hypoxia: Status: Acute Plan This is a 68-year-old male with pertinent history of left BKA plus right TMA, ESRD on hemodialysis M/W/F, mixed hyperlipidemia, congestive heart failure with preserved ejection fraction, renal artery stenosis, mood disorder, BPH who presents to the emergency department for evaluation of dyspnea. #. Acute hypoxemic respiratory failure due to Acute on chronic congestive heart failure with preserved ejection fraction in a patient with ESRD: Patient received IV Lasix in the ER. Consulting Nephrology for hemodialysis. #. Hypertension: On Imdur, nifedipine, hydralazine and carvedilol #. Mood disorder: On sertraline #. Anemia of chronic kidney disease: Hemoglobin above transfusion threshold #. BPH: On Flomax #. Mixed hyperlipidemia: On statin and Zetia Med rec pending DVT prophylaxis: Lovenox Full code Admit as inpatient and will require two night minimum hospital stay for supplemental oxygen, monitoring of volume status (as above), which is not possible in a lesser acute setting. Quality Stroke Does the patient have a stroke diagnosis?: No VTE Prior VTE?: No VTE Risk Level:: Medical - moderate - high VTE Device Contraindication: Treatment Not Indicated VTE Drug Contraindication: N/A - Med Ordered
[2023-09-26] VITALS (10 sets, daily range): BP systolic 142–207; BP diastolic 65–87; PULSE 65–76; RESP 16–20; TEMP 36.2–37.2; O2SAT 94–98; BMI 28.7
[2023-09-26] MEDS: hydrALAZINE HCl 50 MG TABLET 100 MG PO ×4 (00:02→19:36)
[2023-09-26] MEDS: carvediloL 25 MG TABLET PO ×2 (00:02→19:36)
--- NOTE | 2023-09-26 00:08 | PC.NURSE ---
pt medicated per mar at this time, pt tolerated well with water. pt transferred onto different stretcher for comfort.
--- NOTE | 2023-09-26 00:11 | PC.NURSE ---
pt noted to desat to 88-89% on room air, pt placed on 2L nasal cannula for comfort. pt sating 93-96%.
[2023-09-26 01:16] LABS: Troponin-I High Sensitivity 673.7 ng/L (<3.5-35.0)
[2023-09-26] MEDS: Aspirin 81 MG TAB.CHEW 324 MG PO (02:00)
[2023-09-26] MEDS: Enoxaparin Sodium 80 MG/0.8 ML SYRINGE SUBCUT (02:00)
[2023-09-26 02:04] LABS: INTERNATIONAL NORM RATIO 1.1 (0.9-1.1); Prothrombin Time 12.9 SEC (11.1-13.3)
[2023-09-26 05:03] LABS: MANUAL DIFF FLAG NO
[2023-09-26 05:05] LABS: Basophils Percent Auto 0.4 % (0-2); Eosinophils Absolute Auto 0.1 X10*3/uL (0.0-0.4); Hemoglobin 8.3 g/dl (14.0-18.0); Imm Gran Abs Auto 0.04 X10*3/uL (0.00-0.03); Imm Gran Pct Auto 0.4 % (0.0-0.4); Lymphocytes Percent Auto 10.2 % (20-40); Mean Corpuscular HGB Conc 33.2 g/dl (31.0-36.0); Mean Corpuscular Hemoglobin 31.6 pg (27.0-33.0); Mean Corpuscular Volume 95.1 fL (80.0-98.0); Mean Platelet Volume 10.1 fL (9.4-12.4); Monocytes Absolute Auto 1.1 X10*3/uL (0.1-1.2); Monocytes Percent Auto 11.4 % (2-11); Neutrophils Absolute Auto 7.6 x10*3/uL (2.0-8.3); Neutrophils Percent Auto 76.6 % (45-73); Platelet Count 149 X10*3/uL (160-400); Red Blood Count 2.63 X10*6/uL (4.60-5.80); Red Cell Distribution Width 13.7 % (11.0-16.0); White Blood Count 9.9 X10*3/uL (4.8-10.8)
[2023-09-26 05:20] LABS: Anion Gap 19 (12-20); Blood Urea Nitrogen 56 mg/dL (9-16); Calcium 8.8 mg/dL (8.4-10.2); Carbon Dioxide 21 mmol/L (22-29); Chloride 104 mmol/L (96-108); Creatinine Clr Calc Pharmacy 13.1; Estimated Glomerular Filt Rate 10; Glucose Random 251 mg/dL (60-115); Potassium 4.8 mmol/L (3.3-5.1); Sodium 139 mmol/L (135-145)
[2023-09-26 05:28] LABS: Troponin-I High Sensitivity 649.8 ng/L (<3.5-35.0)
[2023-09-26] MEDS: Labetalol HCL 100 MG/20 ML VIAL 10 MG IVPUSH (06:57)
--- NOTE | 2023-09-26 08:44 | PHA.MEDREC ---
Pharmacy Consult ? Medication Reconciliation Pharmacy has completed the medication reconciliation. Spoke to patient at bedside with looping machine operator. He had a partial medlist which we received a copy of. He confirmed the medications that weren't on his physical list, notably that he only takes 1g of icosapent ethyl at bedtime.
[2023-09-26] MEDS: Isosorbide Mononitrate 60 MG TAB.ER.24H PO (09:54)
[2023-09-26] MEDS: Gabapentin 300 MG CAPSULE PO (09:54)
[2023-09-26] MEDS: Ezetimibe 10 MG TABLET PO (09:55)
[2023-09-26] MEDS: Sertraline HCL 50 MG TABLET PO (09:55)
[2023-09-26] MEDS: Omeprazole 40 MG CAPSULE.DR PO (09:55)
--- NOTE | 2023-09-26 09:56 | PC.NURSE ---
Pt. states that he will text a family member to ask if they could bring his medication Vascepa in, because this med. is non-formulary to [facility] [place].
--- NOTE | 2023-09-26 11:26 | PM.CNNEP ---
History of Present Illness Reason for Consult Consult date: 09/26/23 Chief Complaint Chief complaint: Dyspnea History of Present Illness Narrative: 68 year old patient with history of ESRD admitted with CHF. He apparently missed his dialysis treatment yesterday. He complains of shortess of breath and cough. Review of Systems Review of Systems 10 points ROS negative except for pertinent [facility] Past Medical History Medical History (Updated 09/26/23 @ 11:29 by Zaheer Christie MD) Anemia PAD (peripheral artery disease) Acute kidney injury superimposed on CKD Hypertension Type 2 diabetes mellitus ESRD (end stage renal disease) CKD (chronic kidney disease) stage 3, GFR 30-59 ml/min Renal artery stenosis Anemia Uncontrolled hypertension Erectile dysfunction (HFpEF) heart failure with preserved ejection fraction Osteomyelitis CKD stage 3 due to type 2 diabetes mellitus LIVE (iron deficiency anemia) Hyperlipidemia associated with type 2 diabetes mellitus Kidney disease High cholesterol HTN (hypertension) Diabetes Family History Family History Other No family history of coronary artery disease Surgical History Surgical History Status post transmetatarsal amputation of left foot Hx of amputation History of amputation of right forefoot H/O shoulder surgery Social History Social History Household Members: None Housing: Apartment Do you presently have visiting nurse or other home services: Yes (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) Alcohol intake: current Alcohol intake frequency: a few times a month Alcohol type: beer Comment: previously medicated with IV morphine Patient Tobacco Use Status: Never used Tobacco Tobacco use type: Cigarette Smoked in Last 30 Days: No Second Hand Smoke Exposure: No Use of substances other than those prescribed or required for medical reasons: No Substance Use Type: Crack/Cocaine Advance Directives: Yes Advance Directives on File: Yes Advance Directives Date on File: 02/02/22 Do you have a plan to hurt others: No Plan Nutrition Risks: No Nutritional Risk service: No Current occupational status: retired Meds Allergies Allergy/AdvReac Type Severity Reaction Status Date / Time metformin AdvReac Unknown Verified 09/25/23 19:49 Active Medications: Current Medications Acetaminophen (Acetaminophen 325 Mg Tablet) 650 mg PO Q6H PRN PRN Reason: Pain, Mild (Pain Scale 1-3), fever or headache Albuterol Sulfate (Albuterol Sulfate 90 Mcg 8 Gm Inhaler) 2 puff INHALE Q4H PRN PRN Reason: Wheezing Aspirin (Aspirin 81 Mg Tab.Chew) 81 mg PO DAILY [facility] Atorvastatin Calcium (Atorvastatin Calcium 80 Mg Tablet) 80 mg PO BEDTIME [facility] Calcium Carbonate (Calcium Carbonate 750 Mg Tab.Chew) 750 mg PO Q4H PRN PRN Reason: Heartburn Carvedilol (Carvedilol 25 Mg Tablet) 25 mg PO BID [facility]; Protocol Docusate Sodium (Docusate Sodium 100 Mg Capsule) 100 mg PO BEDTIME [facility] Ezetimibe (Ezetimibe 10 Mg Tablet) 10 mg PO DAILY [facility] Last Admin: 09/26/23 09:55 Dose: 10 mg Fluticasone Propionate (Fluticasone Propionate Nasal 16 Gm [place]) 2 spray NOSTRIL-B DAILY PRN PRN Reason: Congestion Gabapentin (Gabapentin 300 Mg Capsule) 300 mg PO DAILY [facility] Last Admin: 09/26/23 09:54 Dose: 300 mg Glucose (Glucose Gel 15 Gm Gel..Gram.) 15 gm PO Q15M PRN; Protocol PRN Reason: per Hypoglycemia Standing Ord. Hydralazine HCl (Hydralazine Hcl 50 Mg Tablet) 100 mg PO TID [facility]; Protocol Last Admin: 09/26/23 09:54 Dose: 100 mg Dextrose (D10) 250 mls @ 750 mls/hr IV Q15M PRN; Protocol PRN Reason: per Hypoglycemia Standing Ord. Insulin Glargine (Insulin Glargine,Hum.Rec.Anlog 100 Unit/Ml 10 Ml Vial) 17 unit SUBCUT DAILY [facility] Insulin Human Lispro (Insulin Lispro 100 Unit/Ml 3 Ml Vial) 0 unit SUBCUT QIDACHS [facility]; Protocol Isosorbide Mononitrate (Isosorbide Mononitrate 60 Mg Tab.Er.24h) 60 mg PO DAILY [facility]; Protocol Last Admin: 09/26/23 09:54 Dose: 60 mg Magnesium Hydroxide (Milk Of Magnesia 30 Ml Oral.Susp) 30 ml PO DAILY PRN PRN Reason: Constipation Melatonin (Melatonin 3 Mg Tablet) 6 mg PO BEDTIME PRN PRN Reason: Insomnia Nifedipine (Nifedipine Er 30 Mg Tab.Er.24) 90 mg PO DAILY [facility]; Protocol Last Admin: 09/26/23 11:14 Dose: Not Given Non-Formulary Medication (Icosapent Ethyl) 1 gm PO BEDTIME [facility] Omeprazole (Omeprazole 40 Mg Capsule.Dr) 40 mg PO DAILY@0630 [facility] Last Admin: 09/26/23 09:55 Dose: 40 mg Ondansetron HCl (Ondansetron Hcl 4 Mg/2 Ml Vial) 4 mg IVPUSH Q8H PRN PRN Reason: Nausea and Vomiting Sertraline HCl (Sertraline Hcl 50 Mg Tablet) 50 mg PO DAILY [facility] Last Admin: 09/26/23 09:55 Dose: 50 mg Sodium Chloride (0.9 % Sodium Chloride Flush 3 Ml Syringe) 3 ml IVFLUSH QSHIFT [facility] Last Admin: 09/26/23 09:08 Dose: Not Given Tamsulosin HCl (Tamsulosin Hcl 0.4 Mg Capsule) 0.4 mg PO BEDTIME [facility] Trazodone HCl (Trazodone Hcl 100 Mg Tablet) 100 mg PO BEDTIME PRN PRN Reason: insomnia Home Medications ?Medication ?Instructions ?Recorded ?Confirmed ?Last Taken ?Type sertraline 50 mg tablet 50 mg PO DAILY 04/27/21 09/26/23 09/24/23 History albuterol sulfate 90 mcg/actuation 2 puff inhalation Q4H PRN Wheezing 01/13/23 09/26/23 09/24/23 History aerosol inhaler (Ventolin HFA) aspirin 81 mg chewable tablet 1 tab PO DAILY 01/13/23 09/26/23 09/24/23 History atorvastatin 80 mg tablet 80 mg PO BEDTIME 01/13/23 09/26/23 09/24/23 History docusate sodium 100 mg capsule 100 mg PO BEDTIME 01/13/23 09/26/23 09/24/23 History ezetimibe 10 mg tablet 10 mg PO DAILY 01/13/23 09/26/23 09/24/23 History flash glucose scanning reader 01/13/23 01/21/23 Unknown History (FreeStyle Daniel 2 [place]) flash glucose sensor (FreeStyle 01/13/23 01/21/23 Unknown History Daniel 2 Sensor kit) fluticasone propionate 50 2 spray intranasal DAILY PRN 01/13/23 09/26/23 09/24/23 History mcg/actuation nasal Congestion spray,suspension gabapentin 300 mg capsule 300 mg PO DAILY 01/13/23 09/26/23 09/24/23 History hydralazine 50 mg tablet 100 mg PO TID 01/13/23 09/26/23 09/24/23 History tamsulosin 0.4 mg capsule 0.4 mg PO BEDTIME 01/13/23 09/26/23 09/24/23 History cholecalciferol (vitamin D3) 1,250 50,000 unit PO [place] 01/21/23 09/26/23 09/24/23 History mcg (50,000 unit) capsule icosapent ethyl 1 gram capsule 1 g PO BEDTIME 09/26/23 09/26/23 09/24/23 History insulin degludec 100 unit/mL (3 25 unit subcut DAILY 09/26/23 09/26/23 09/24/23 History mL) subcutaneous pen (Tresiba FlexTouch U-100 insulin) trazodone 100 mg tablet 100 mg PO BEDTIME PRN insomnia 09/26/23 09/26/23 09/24/23 History Physical Exam Vital Signs: Last Vital Signs Temp 98.9 F 09/26/23 06:06 Pulse 72 09/26/23 08:49 Resp 20 09/26/23 08:19 BP 177/87 H 09/26/23 11:14 Pulse Ox 94 09/26/23 08:19 O2 Del Method Nasal Cannula 09/26/23 08:19 O2 Flow Rate 2 09/26/23 08:19 BMI result Body Mass Index 28.7 Const General: alert and awake HEENT Head: Yes normocephalic and Yes atraumatic Neck Neck: Yes supple Resp Auscultation: diminished lung sounds Cardio Heart sounds: S1 normal heart sound present and S2 normal heart sound present Extrem General: Yes pedal edema Results Lab Results 09/26/23 04:33 09/26/23 04:33 Lab results: Chemistry 09/25/23 09/26/23 19:58 04:33 Sodium 138 139 Potassium 4.9 4.8 Carbon Dioxide 24 21 L BUN 46 H 56 H Creatinine 5.24 H* 5.74 H* Calcium 8.6 8.8 Hematology 09/25/23 09/26/23 19:58 04:33 WBC 10.0 9.9 Hgb 8.8 L 8.3 L Plt Count 165 D 149 L Assessment and Plan (1) ESRD (end stage renal disease): Status: Acute (2) Anemia in ESRD (end-stage renal disease): Status: Acute Plan usually has HD at [facility] via PC followed by Dr Christie presents with CHF nephrogenic anemia REC HD today optimize volume status renal diet P binder procrit 80154 units sc x 1 Procedures Date of Service Date of Service: 09/26/23
--- NOTE | 2023-09-26 11:28 | P.CONCA_ITS ---
History of Present Illness History of Present Illness Date of Service: 09/26/23 Requesting physician: Dale Barker Consult reason: congestive heart failure Chief complaint: Dyspnea Narrative: I was consulted to see Kingsley in cardiology consultation today for decompensated congestive heart failure. Patient was very short of breath when I saw him. Patient is 68-year-old male with significant past medical history of end-stage renal disease on hemodialysis, bilateral amputation with left BKA for peripheral vascular disease, heart failure preserved ejection fraction, renal artery stenosis, hypertension, diabetes, hyperlipidemia. Has no obvious diagnosis of coronary artery disease although his abdominal ultrasound has shown significant atherosclerotic disease. His myocardial perfusion imaging about 2 years ago was within normal limits. Patient was usual state of health goes dialysis on Saturday. He said he did go for his dialysis on Saturday was doing okay. Saturday evening he started having shortness of breath. No associated chest discomfort. He presented for dialysis yesterday to the dialysis center and because of his respiratory distress was advised to go to the emergency room. He then subsequently came to the emergency room but has not had his dialysis since yesterday. He is noted to have elevated blood pressure and is significantly respiratory distress. Using accessory muscles and speaking in short sentences. Patient follows with Dr. Rian blum for dialysis. Patient still continues to deny any chest pain. His troponins noted to be high but flat. EKG does not show any significant acute changes. Blood pressure remains elevated. Review of Systems 2 Constitutional: Constitutional: Reports no additional constitutional complaints Eyes: Eyes: Reports no additional eye complaints Cardiovascular: Cardiovascular: Denies chest pain, Denies rapid heart rate, Denies leg edema, Denies lightheadedness, Reports dyspnea and Reports orthopnea Respiratory: Respiratory: Reports cough, Reports dyspnea and Denies wheezing Gastrointestinal: Gastrointestinal: Reports no additional gastrointestinal complaints Genitourinary: Genitourinary: Reports no additional male genitourinary complaints Musculoskeletal: Musculoskeletal: Reports no additional musculoskeletal complaints Neurologic: Reports system reviewed and no additional complaints, except as documented Allergic/Immunologic: Allergic/Immunologic: Denies wheezing PMFSH Past Medical History Medical History Anemia PAD (peripheral artery disease) Acute kidney injury superimposed on CKD Hypertension Type 2 diabetes mellitus ESRD (end stage renal disease) CKD (chronic kidney disease) stage 3, GFR 30-59 ml/min Renal artery stenosis Anemia Uncontrolled hypertension Erectile dysfunction (HFpEF) heart failure with preserved ejection fraction Osteomyelitis CKD stage 3 due to type 2 diabetes mellitus LIVE (iron deficiency anemia) Hyperlipidemia associated with type 2 diabetes mellitus Kidney disease High cholesterol HTN (hypertension) Diabetes Family History Family History Other No family history of coronary artery disease Surgical History Surgical History Status post transmetatarsal amputation of left foot Hx of amputation History of amputation of right forefoot H/O shoulder surgery Social History Social History Household Members: None Housing: Apartment Do you presently have visiting nurse or other home services: Yes (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) Alcohol intake: current Alcohol intake frequency: a few times a month Alcohol type: beer Comment: previously medicated with IV morphine Patient Tobacco Use Status: Never used Tobacco Tobacco use type: Cigarette Smoked in Last 30 Days: No Second Hand Smoke Exposure: No Use of substances other than those prescribed or required for medical reasons: No Substance Use Type: Crack/Cocaine Advance Directives: Yes Advance Directives on File: Yes Advance Directives Date on File: 02/02/22 Do you have a plan to hurt others: No Plan Nutrition Risks: No Nutritional Risk service: No Current occupational status: retired Meds Allergies Allergy/AdvReac Type Severity Reaction Status Date / Time metformin AdvReac Unknown Verified 09/25/23 19:49 Active Medications: Current Medications Acetaminophen (Acetaminophen 325 Mg Tablet) 650 mg PO Q6H PRN PRN Reason: Pain, Mild (Pain Scale 1-3), fever or headache Albuterol Sulfate (Albuterol Sulfate 90 Mcg 8 Gm Inhaler) 2 puff INHALE Q4H PRN PRN Reason: Wheezing Aspirin (Aspirin 81 Mg Tab.Chew) 81 mg PO DAILY [facility] Atorvastatin Calcium (Atorvastatin Calcium 80 Mg Tablet) 80 mg PO BEDTIME [facility] Calcium Carbonate (Calcium Carbonate 750 Mg Tab.Chew) 750 mg PO Q4H PRN PRN Reason: Heartburn Carvedilol (Carvedilol 25 Mg Tablet) 25 mg PO BID [facility]; Protocol Docusate Sodium (Docusate Sodium 100 Mg Capsule) 100 mg PO BEDTIME [facility] Ezetimibe (Ezetimibe 10 Mg Tablet) 10 mg PO DAILY [facility] Last Admin: 09/26/23 09:55 Dose: 10 mg Fluticasone Propionate (Fluticasone Propionate Nasal 16 Gm [place]) 2 spray NOSTRIL-B DAILY PRN PRN Reason: Congestion Gabapentin (Gabapentin 300 Mg Capsule) 300 mg PO DAILY [facility] Last Admin: 09/26/23 09:54 Dose: 300 mg Glucose (Glucose Gel 15 Gm Gel..Gram.) 15 gm PO Q15M PRN; Protocol PRN Reason: per Hypoglycemia Standing Ord. Hydralazine HCl (Hydralazine Hcl 50 Mg Tablet) 100 mg PO TID [facility]; Protocol Last Admin: 09/26/23 09:54 Dose: 100 mg Dextrose (D10) 250 mls @ 750 mls/hr IV Q15M PRN; Protocol PRN Reason: per Hypoglycemia Standing Ord. Insulin Glargine (Insulin Glargine,Hum.Rec.Anlog 100 Unit/Ml 10 Ml Vial) 17 unit SUBCUT DAILY [facility] Insulin Human Lispro (Insulin Lispro 100 Unit/Ml 3 Ml Vial) 0 unit SUBCUT QIDACHS [facility]; Protocol Isosorbide Mononitrate (Isosorbide Mononitrate 60 Mg Tab.Er.24h) 60 mg PO DAILY [facility]; Protocol Last Admin: 09/26/23 09:54 Dose: 60 mg Magnesium Hydroxide (Milk Of Magnesia 30 Ml Oral.Susp) 30 ml PO DAILY PRN PRN Reason: Constipation Melatonin (Melatonin 3 Mg Tablet) 6 mg PO BEDTIME PRN PRN Reason: Insomnia Nifedipine (Nifedipine Er 30 Mg Tab.Er.24) 90 mg PO DAILY [facility]; Protocol Last Admin: 09/26/23 11:14 Dose: Not Given Non-Formulary Medication (Icosapent Ethyl) 1 gm PO BEDTIME [facility] Omeprazole (Omeprazole 40 Mg Capsule.Dr) 40 mg PO DAILY@0630 [facility] Last Admin: 09/26/23 09:55 Dose: 40 mg Ondansetron HCl (Ondansetron Hcl 4 Mg/2 Ml Vial) 4 mg IVPUSH Q8H PRN PRN Reason: Nausea and Vomiting Sertraline HCl (Sertraline Hcl 50 Mg Tablet) 50 mg PO DAILY [facility] Last Admin: 09/26/23 09:55 Dose: 50 mg Sodium Chloride (0.9 % Sodium Chloride Flush 3 Ml Syringe) 3 ml IVFLUSH QSHIFT [facility] Last Admin: 09/26/23 09:08 Dose: Not Given Tamsulosin HCl (Tamsulosin Hcl 0.4 Mg Capsule) 0.4 mg PO BEDTIME [facility] Trazodone HCl (Trazodone Hcl 100 Mg Tablet) 100 mg PO BEDTIME PRN PRN Reason: insomnia Home Medications ?Medication ?Instructions ?Recorded ?Confirmed ?Last Taken ?Type sertraline 50 mg tablet 50 mg PO DAILY 04/27/21 09/26/23 09/24/23 History albuterol sulfate 90 mcg/actuation 2 puff inhalation Q4H PRN Wheezing 01/13/23 09/26/23 09/24/23 History aerosol inhaler (Ventolin HFA) aspirin 81 mg chewable tablet 1 tab PO DAILY 01/13/23 09/26/23 09/24/23 History atorvastatin 80 mg tablet 80 mg PO BEDTIME 01/13/23 09/26/23 09/24/23 History docusate sodium 100 mg capsule 100 mg PO BEDTIME 01/13/23 09/26/23 09/24/23 History ezetimibe 10 mg tablet 10 mg PO DAILY 01/13/23 09/26/23 09/24/23 History flash glucose scanning reader 01/13/23 01/21/23 Unknown History (hdtMEDIAStyle Daniel 2 [place]) flash glucose sensor (FreeStyle 01/13/23 01/21/23 Unknown History Daniel 2 Sensor kit) fluticasone propionate 50 2 spray intranasal DAILY PRN 01/13/23 09/26/23 09/24/23 History mcg/actuation nasal Congestion spray,suspension gabapentin 300 mg capsule 300 mg PO DAILY 01/13/23 09/26/23 09/24/23 History hydralazine 50 mg tablet 100 mg PO TID 01/13/23 09/26/23 09/24/23 History tamsulosin 0.4 mg capsule 0.4 mg PO BEDTIME 01/13/23 09/26/23 09/24/23 History cholecalciferol (vitamin D3) 1,250 50,000 unit PO [place] 01/21/23 09/26/23 09/24/23 History mcg (50,000 unit) capsule icosapent ethyl 1 gram capsule 1 g PO BEDTIME 09/26/23 09/26/2309/23/24 History insulin degludec 100 unit/mL (3 25 unit subcut DAILY 09/26/23 09/26/23 09/24/23 History mL) subcutaneous pen (Tresiba FlexTouch U-100 insulin) trazodone 100 mg tablet 100 mg PO BEDTIME PRN insomnia 09/26/23 09/26/23 09/24/23 History Physical Exam 2 Vital Signs: Vital Signs: Last Vital Signs Temp 98.9 F 09/26/23 06:06 Pulse 72 09/26/23 08:49 Resp 20 09/26/23 08:19 BP 177/87 H 09/26/23 11:14 Pulse Ox 94 09/26/23 08:19 O2 Del Method Nasal Cannula 09/26/23 08:19 O2 Flow Rate 2 09/26/23 08:19 BMI result Body Mass Index 28.7 Const: General: cooperative, alert, awake and in distress severe and respiratory Nutritional Appearance: overweight Orientation/consciousness: patient oriented x3 HEENT: Head: Yes normocephalic and Yes atraumatic Neck: Neck: Yes trachea midline, Yes supple and Yes JVD Resp: Effort & Inspection: labored Auscultation: crackles bilateral 1/[address] up Cardio: Jugular venous distension: JVD Rate: regular rate Rhythm: r egular rhythm Heart sounds: S1 normal heart sound present, S2 normal heart sound present, no click, no gallops, no murmurs and no rubs GI: Auscultation: normal bowel sounds Skin: General skin exam: no rashes or lesions noted Neuro: General: patient oriented x3 Extrem: General: No clubbing, No cyanosis and Yes edema Psych: Appearance: grossly normal Objective Labs and Meds 09/26/23 04:33 09/26/23 04:33 Lab results: Laboratory Results - last 24 hr 09/25/23 09/25/23 09/26/23 19:58 20:00 00:35 WBC 10.0 RBC 2.72 L Hgb 8.8 L Hct 25.8 L MCV 94.9 MCH 32.4 MCHC 34.1 RDW 13.5 Plt Count 165 D MPV 9.6 Immature Gran % (Auto) 0.5 H Neut % (Auto) 77.2 H Lymph % (Auto) 11.0 L [place] % (Auto) 10.6 Eos % (Auto) 0.5 Baso % (Auto) 0.2 Lymph # (Auto) 1.1 L [place] # (Auto) 1.1 Eos # (Auto) 0.1 Baso # (Auto) 0.0 Abs Immat Gran (auto) 0.05 H Absolute Neuts (auto) 7.7 Absolute Nucleated RBC 0.000 Nucleated RBC % (auto) 0.0 PT INR VBG pH 7.46 H VBG pCO2 37 VBG pO2 107 VBG HCO3 26 VBG O2 Saturation 99.0 VBG Base Excess 2.9 Sodium 138 Potassium 4.9 Chloride 101 Carbon Dioxide 24 Anion Gap 18 BUN 46 H Creatinine 5.24 H* Estim Creat Clear Calc 14.3 Estimated GFR 11 Random Glucose 215 H Calcium 8.6 Total Bilirubin 0.5 AST 21 ALT 17 Alkaline Phosphatase 127 H Troponin I High Sens 638.8 H* D 673.7 H* B-Natriuretic Peptide 1083 H Total Protein 7.0 Albumin 3.5 Influenza Type A (PCR) NEGATIVE Influenza Type B (PCR) NEGATIVE RSV RNA Qual (PCR) NEGATIVE SARS-CoV-2 RNA (RT-PCR) NEGATIVE Blood Type Antibody Screen 09/26/23 09/26/23 09/26/23 01:46 04:33 08:38 WBC 9.9 RBC 2.63 L Hgb 8.3 L Hct 25.0 L MCV 95.1 MCH 31.6 MCHC 33.2 RDW 13.7 Plt Count 149 L MPV 10.1 Immature Gran % (Auto) 0.4 Neut % (Auto) 76.6 H Lymph % (Auto) 10.2 L [place] % (Auto) 11.4 H Eos % (Auto) 1.0 Baso % (Auto) 0.4 Lymph # (Auto) 1.0 L [place] # (Auto) 1.1 Eos # (Auto) 0.1 Baso # (Auto) 0.0 Abs Immat Gran (auto) 0.04 H Absolute Neuts (auto) 7.6 Absolute Nucleated RBC 0.000 Nucleated RBC % (auto) 0.0 PT 12.9 INR 1.1 VBG pH VBG pCO2 VBG pO2 VBG HCO3 VBG O2 Saturation VBG Base Excess Sodium 139 Potassium 4.8 Chloride 104 Carbon Dioxide 21 L Anion Gap 19 BUN 56 H Creatinine 5.74 H* Estim Creat Clear Calc 13.1 Estimated GFR 10 Random Glucose 251 H Calcium 8.8 Total Bilirubin AST ALT Alkaline Phosphatase Troponin I High Sens 649.8 H* B-Natriuretic Peptide Total Protein Albumin Influenza Type A (PCR) Influenza Type B (PCR) RSV RNA Qual (PCR) SARS-CoV-2 RNA (RT-PCR) Blood Type O Positive Antibody Screen NEGATIVE Imaging Radiologist's impression: Impressions Chest X-Ray 09/25/23 20:00 IMPRESSION: Small layering bilateral effusions with basilar markings more likely due to atelectasis. Infectious etiology at the right base would be possible but less likely. Assessment and Plan (1) CHF exacerbation: Status: Acute Acute CHF exacerbation despite getting adequate dialysis as per the patient in this gentleman with significant risk factors for atherosclerotic disease and high likelihood of underlying significant obstructive coronary artery disease. His acute CHF could be an ischemic heart failure event. However clinically he has missed his dialysis yesterday and is significant fluid overload and in decompensated congestive heart failure. Appears to be in pulmonary edema with significant respiratory distress. 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 Continue to uses general antihypertensives for treatment. Would also use aspirin high-intensity statin therapy. Will also add nitrates as preload reduce as well as the coronary vaso dilator to help with his heart failure syndrome. Overall prognosis is guarded. Eventually once stable as marked failure and respiratory perspective I think he will require cardiac catheterization to evaluate for coronary artery disease. Will follow with you. Procedures Date of Service Date of Service: 09/26/23
--- NOTE | 2023-09-26 13:00 | P.PNIM_ITS ---
Subjective Subjective Date of Service: 09/26/23 Interval History: Follow-up on shortness of breath due to fluid overload from missing dialysis. His troponin I level is elevated however he is not complaining of chest pain but does have shortness of breath as stated. Physical Exam 2 Vital Signs: Vital Signs: Last Vital Signs Temp 98.9 F 09/26/23 06:06 Pulse 65 09/26/23 12:00 Resp 18 09/26/23 12:00 BP 177/87 H 09/26/23 11:14 Pulse Ox 97 09/26/23 12:00 O2 Del Method Oxymask 09/26/23 12:00 O2 Flow Rate 4 09/26/23 12:00 BMI result Body Mass Index 28.7 General: AO X 3, no acute distress Resp: CTA bilateral CVS: S1,S2,RRR GI: +BS, NT, no distention Skin: No rash, has amputation of both lower extremities Neuro: motor grossly intact Psych: appropriate affect Objective Data Active Medications Acetaminophen (Acetaminophen 325 Mg Tablet) 650 mg PO Q6H PRN PRN Reason: Pain, Mild (Pain Scale 1-3), fever or headache Albuterol Sulfate (Albuterol Sulfate 90 Mcg 8 Gm Inhaler) 2 puff INHALE Q4H PRN PRN Reason: Wheezing Aspirin (Aspirin 81 Mg Tab.Chew) 81 mg PO DAILY [facility] Atorvastatin Calcium (Atorvastatin Calcium 80 Mg Tablet) 80 mg PO BEDTIME [facility] Calcium Carbonate (Calcium Carbonate 750 Mg Tab.Chew) 750 mg PO Q4H PRN PRN Reason: Heartburn Carvedilol (Carvedilol 25 Mg Tablet) 25 mg PO BID [facility]; Protocol Docusate Sodium (Docusate Sodium 100 Mg Capsule) 100 mg PO BEDTIME [facility] Ezetimibe (Ezetimibe 10 Mg Tablet) 10 mg PO DAILY [facility] Last Admin: 09/26/23 09:55 Dose: 10 mg Documented By: TIGRE Fluticasone Propionate (Fluticasone Propionate Nasal 16 Gm Sylvia) 2 spray NOSTRIL-B DAILY PRN PRN Reason: Congestion Gabapentin (Gabapentin 300 Mg Capsule) 300 mg PO DAILY [facility] Last Admin: 09/26/23 09:54 Dose: 300 mg Documented By: TIGRE Glucose (Glucose Gel 15 Gm Gel..Gram.) 15 gm PO Q15M PRN; Protocol PRN Reason: per Hypoglycemia Standing Ord. Hydralazine HCl (Hydralazine Hcl 50 Mg Tablet) 100 mg PO TID [facility]; Protocol Last Admin: 09/26/23 09:54 Dose: 100 mg Documented By: TIGRE Dextrose (D10) 250 mls @ 750 mls/hr IV Q15M PRN; Protocol PRN Reason: per Hypoglycemia Standing Ord. Insulin Glargine (Insulin Glargine,Hum.Rec.Anlog 100 Unit/Ml 10 Ml Vial) 17 unit SUBCUT DAILY [facility] Insulin Human Lispro (Insulin Lispro 100 Unit/Ml 3 Ml Vial) 0 unit SUBCUT QIDACHS [facility]; Protocol Isosorbide Mononitrate (Isosorbide Mononitrate 60 Mg Tab.Er.24h) 60 mg PO DAILY [facility]; Protocol Last Admin: 09/26/23 09:54 Dose: 60 mg Documented By: TIGRE Magnesium Hydroxide (Milk Of Magnesia 30 Ml Oral.Susp) 30 ml PO DAILY PRN PRN Reason: Constipation Melatonin (Melatonin 3 Mg Tablet) 6 mg PO BEDTIME PRN PRN Reason: Insomnia Nifedipine (Nifedipine Er 30 Mg Tab.Er.24) 90 mg PO DAILY [facility]; Protocol Last Admin: 09/26/23 11:14 Dose: Not Given Documented By: TIGRE Non-Admin Reason: Med Not Available Non-Formulary Medication (Icosapent Ethyl) 1 gm PO BEDTIME [facility] Omeprazole (Omeprazole 40 Mg Capsule.) 40 mg PO DAILY@0630 [facility] Last Admin: 09/26/23 09:55 Dose: 40 mg Documented By: TIGRE Ondansetron HCl (Ondansetron Hcl 4 Mg/2 Ml Vial) 4 mg IVPUSH Q8H PRN PRN Reason: Nausea and Vomiting Sertraline HCl (Sertraline Hcl 50 Mg Tablet) 50 mg PO DAILY [facility] Last Admin: 09/26/23 09:55 Dose: 50 mg Documented By: TIGRE Sodium Chloride (0.9 % Sodium Chloride Flush 3 Ml Syringe) 3 ml IVFLUSH QSHIFT [facility] Last Admin: 09/26/23 09:08 Dose: Not Given Documented By: TIGRE Non-Admin Reason: Previously Administered Tamsulosin HCl (Tamsulosin Hcl 0.4 Mg Capsule) 0.4 mg PO BEDTIME [facility] Trazodone HCl (Trazodone Hcl 100 Mg Tablet) 100 mg PO BEDTIME PRN PRN Reason: insomnia Labs 09/26/23 04:33 09/26/23 04:33 Labs: Laboratory Results - last 24 hr 09/25/23 09/25/23 09/26/23 19:58 20:00 00:35 MCV 94.9 MCH 32.4 MCHC 34.1 RDW 13.5 Plt Count 165 D MPV 9.6 Immature Gran % (Auto) 0.5 H Neut % (Auto) 77.2 H Lymph % (Auto) 11.0 L Wheeler % (Auto) 10.6 Eos % (Auto) 0.5 Baso % (Auto) 0.2 Lymph # (Auto) 1.1 L Wheeler # (Auto) 1.1 Eos # (Auto) 0.1 Baso # (Auto) 0.0 Abs Immat Gran (auto) 0.05 H Absolute Neuts (auto) 7.7 Absolute Nucleated RBC 0.000 Nucleated RBC % (auto) 0.0 PT INR VBG pH 7.46 H VBG pCO2 37 VBG pO2 107 VBG HCO3 26 VBG O2 Saturation 99.0 VBG Base Excess 2.9 Anion Gap 18 Estim Creat Clear Calc 14.3 Estimated GFR 11 Random Glucose 215 H Calcium 8.6 Total Bilirubin 0.5 AST 21 ALT 17 Alkaline Phosphatase 127 H Troponin I High Sens 638.8 H* D 673.7 H* B-Natriuretic Peptide 1083 H Total Protein 7.0 Albumin 3.5 Influenza Type A (PCR) NEGATIVE Influenza Type B (PCR) NEGATIVE RSV RNA Qual (PCR) NEGATIVE SARS-CoV-2 RNA (RT-PCR) NEGATIVE Blood Type Antibody Screen 09/26/23 09/26/23 09/26/23 01:46 04:33 08:38 MCV 95.1 MCH 31.6 MCHC 33.2 RDW 13.7 Plt Count 149 L MPV 10.1 Immature Gran % (Auto) 0.4 Neut % (Auto) 76.6 H Lymph % (Auto) 10.2 L Wheeler % (Auto) 11.4 H Eos % (Auto) 1.0 Baso % (Auto) 0.4 Lymph # (Auto) 1.0 L Wheeler # (Auto) 1.1 Eos # (Auto) 0.1 Baso # (Auto) 0.0 Abs Immat Gran (auto) 0.04 H Absolute Neuts (auto) 7.6 Absolute Nucleated RBC 0.000 Nucleated RBC % (auto) 0.0 PT 12.9 INR 1.1 VBG pH VBG pCO2 VBG pO2 VBG HCO3 VBG O2 Saturation VBG Base Excess Anion Gap 19 Estim Creat Clear Calc 13.1 Estimated GFR 10 Random Glucose 251 H Calcium 8.8 Total Bilirubin AST ALT Alkaline Phosphatase Troponin I High Sens 649.8 H* B-Natriuretic Peptide Total Protein Albumin Influenza Type A (PCR) Influenza Type B (PCR) RSV RNA Qual (PCR) SARS-CoV-2 RNA (RT-PCR) Blood Type O Positive Antibody Screen NEGATIVE Assessment and Plan (1) Anemia: Status: Acute (2) Elevated troponin: Status: Acute (3) Fluid overload: Status: Acute (4) End stage chronic kidney disease: Status: Acute Plan 68-year-old male with pertinent history of left BKA plus right TMA, ESRD on hemodialysis M/W/F, mixed hyperlipidemia, congestive heart failure with preserved ejection fraction, renal artery stenosis, mood disorder, BPH who presents to the emergency department for evaluation of dyspnea. Acute hypoxemic respiratory failure due to acute on chronic congestive heart failure with preserved ejection fraction in a patient with ESRD and has missed dialysis: -Lasix is ineffective and needs dialysis for fluid removal. -I have discussed this with the kidney doctor and there is a plan for HD [facility]. Elevated troponin, likely related to demand ischemia from fluid overload: -Troponin trending down, continue CAD meds (ASA, statin, BB, nitrate). -Cardiology advises ischemic work-up once the present condition is stable. -He received a dose of Lovenox yesterday. Hypertension: -His BP has been quite high due to fluid overload. -Continue Coreg, Hydralazine, Indur, and Nifedipine. Diabetes:Start sliding scale and resume Lantus. Mood disorder: -On sertraline. Anemia of chronic kidney disease: -Hemoglobin above transfusion threshold. BPH: -Flomax. Mixed hyperlipidemia: -Lipitor and Zetia. DVT prophylaxis: Lovenox Full code need for inpt: Acute fluid overload with end organ damage, necessitating urgent dialysis Quality Stroke Does the patient have a stroke diagnosis?: No VTE Prior VTE?: No VTE Risk Level:: Medical - moderate - high VTE Device Contraindication: Treatment Not Indicated VTE Drug Contraindication: N/A - Med Ordered
[2023-09-26 13:02] LABS: Glucose, Whole Blood 195 mg/dL (60-115)
--- NOTE | 2023-09-26 13:34 | PC.NURSE ---
ED handoff reviewed, per ED nurse pt to go to HD before getting admitted to s3. Pt had not had POC glucose checked this shift. This RN checked POC in HD, reading 195 at 12:57. Pt alert at this time tolerating HD.
[2023-09-26] MEDS: 0.9 % Sodium Chloride Flush 3 ML SYRINGE IVFLUSH (15:56)
[2023-09-26 16:20] LABS: Glucose, Whole Blood 147 mg/dL (60-115)
[2023-09-26] MEDS: Atorvastatin Calcium 80 MG TABLET PO (19:36)
[2023-09-26] MEDS: Docusate Sodium 100 MG CAPSULE PO (19:36)
[2023-09-26] MEDS: Tamsulosin HCL 0.4 MG CAPSULE PO (19:36)
[2023-09-26 20:03] LABS: Glucose, Whole Blood 290 mg/dL (60-115)
[2023-09-26] MEDS: Insulin Lispro 100 UNIT/ML 3 ML VIAL SUBCUT (21:31)
[2023-09-27] VITALS (12 sets, daily range): BP systolic 120–180; BP diastolic 46–88; PULSE 60–70; RESP 16–18; TEMP 36.1–36.9; O2SAT 93–97
[2023-09-27] MEDS: Omeprazole 40 MG CAPSULE.DR PO (06:36)
[2023-09-27 07:25] LABS: Glucose, Whole Blood 156 mg/dL (60-115)
--- NOTE | 2023-09-27 09:11 | MHC.CM.PN ---
CM ATTEMPTED TO MEET WITH PT WHO IS CURRENTLY IN DIALYSIS CM WILL REVISIT
--- NOTE | 2023-09-27 10:41 | HO.PM.IMPN ---
Subjective Subjective Date of Service: 09/27/23 Interval History: Follow-up on shortness of breath due to fluid overload from missing dialysis. Patient is feeling and breathing much better today, his blood pressure is also under better control He has no chest pain Physical Exam Vital Signs: Vital Signs: Last Vital Signs Temp 97.3 F 09/27/23 08:00 Pulse 61 09/27/23 08:00 Resp 18 09/27/23 08:00 BP 176/88 H 09/27/23 08:00 Pulse Ox 97 09/27/23 08:08 O2 Del Method Nasal Cannula 09/27/23 08:08 O2 Flow Rate 1 09/27/23 08:08 BMI result Body Mass Index 28.7 General: AO X 3, no acute distress Resp: CTA bilateral CVS: S1,S2,RRR GI: +BS, NT, no distention Skin: No rash, has amputation of both lower extremities Neuro: motor grossly intact Psych: appropriate affect Objective Data Active Medications Acetaminophen (Acetaminophen 325 Mg Tablet) 650 mg PO Q6H PRN PRN Reason: Pain, Mild (Pain Scale 1-3), fever or headache Albuterol Sulfate (Albuterol Sulfate 90 Mcg 8 Gm Inhaler) 2 puff INHALE Q4H PRN PRN Reason: Wheezing Aspirin (Aspirin 81 Mg Tab.Chew) 81 mg PO DAILY [facility] Atorvastatin Calcium (Atorvastatin Calcium 80 Mg Tablet) 80 mg PO BEDTIME [facility] Last Admin: 09/26/23 19:36 Dose: 80 mg Documented By: ZULEMA Calcium Carbonate (Calcium Carbonate 750 Mg Tab.Chew) 750 mg PO Q4H PRN PRN Reason: Heartburn Carvedilol (Carvedilol 25 Mg Tablet) 25 mg PO BID [facility]; Protocol Last Admin: 09/26/23 19:36 Dose: 25 mg Documented By: ZULEMA Docusate Sodium (Docusate Sodium 100 Mg Capsule) 100 mg PO BEDTIME [facility] Last Admin: 09/26/23 19:36 Dose: 100 mg Documented By: ZULEMA Ezetimibe (Ezetimibe 10 Mg Tablet) 10 mg PO DAILY [facility] Last Admin: 09/26/23 09:55 Dose: 10 mg Documented By: TIGRE Enoxaparin Sodium (Enoxaparin Sodium 30 Mg/0.3 Ml Syringe) 30 mg SUBCUT DAILY [facility] Fluticasone Propionate (Fluticasone Propionate Nasal 16 Gm [place]) 2 spray NOSTRIL-B DAILY PRN PRN Reason: Congestion Gabapentin (Gabapentin 300 Mg Capsule) 300 mg PO DAILY [facility] Last Admin: 09/26/23 09:54 Dose: 300 mg Documented By: TIGRE Glucose (Glucose Gel 15 Gm Gel..Gram.) 15 gm PO Q15M PRN; Protocol PRN Reason: per Hypoglycemia Standing Ord. Hydralazine HCl (Hydralazine Hcl 50 Mg Tablet) 100 mg PO TID [facility]; Protocol Last Admin: 09/26/23 19:36 Dose: 100 mg Documented By: ZULEMA Dextrose (D10) 250 mls @ 750 mls/hr IV Q15M PRN; Protocol PRN Reason: per Hypoglycemia Standing Ord. Insulin Glargine (Insulin Glargine,Hum.Rec.Anlog 100 Unit/Ml 10 Ml Vial) 17 unit SUBCUT DAILY [facility] Insulin Human Lispro (Insulin Lispro 100 Unit/Ml 3 Ml Vial) 0 unit SUBCUT QIDACHS [facility]; Protocol Last Admin: 09/27/23 08:40 Dose: Not Given Documented By: VIGNESH Non-Admin Reason: Off unit: Dialysis Isosorbide Mononitrate (Isosorbide Mononitrate 30 Mg Tab.Er.24h) 90 mg PO DAILY [facility]; Protocol Magnesium Hydroxide (Milk Of Magnesia 30 Ml Oral.Susp) 30 ml PO DAILY PRN PRN Reason: Constipation Melatonin (Melatonin 3 Mg Tablet) 6 mg PO BEDTIME PRN PRN Reason: Insomnia Nifedipine (Nifedipine Er 30 Mg Tab.Er.24) 90 mg PO DAILY [facility]; Protocol Last Admin: 09/26/23 11:14 Dose: Not Given Documented By: TIGRE Non-Admin Reason: Med Not Available Non-Formulary Medication (Icosapent Ethyl) 1 gm PO BEDTIME [facility] Omeprazole (Omeprazole 40 Mg Capsule.Dr) 40 mg PO DAILY@0630 [facility] Last Admin: 09/27/23 06:36 Dose: 40 mg Documented By: ARTHUR Ondansetron HCl (Ondansetron Hcl 4 Mg/2 Ml Vial) 4 mg IVPUSH Q8H PRN PRN Reason: Nausea and Vomiting Sertraline HCl (Sertraline Hcl 50 Mg Tablet) 50 mg PO DAILY [facility] Last Admin: 09/26/23 09:55 Dose: 50 mg Documented By: TIGRE Sodium Chloride (0.9 % Sodium Chloride Flush 3 Ml Syringe) 3 ml IVFLUSH QSHIFT [facility] Last Admin: 09/27/23 05:03 Dose: Not Given Documented By: ARTHUR Non-Admin Reason: Previously Administered Tamsulosin HCl (Tamsulosin Hcl 0.4 Mg Capsule) 0.4 mg PO BEDTIME [facility] Last Admin: 09/26/23 19:36 Dose: 0.4 mg Documented By: ZULEMA Trazodone HCl (Trazodone Hcl 100 Mg Tablet) 100 mg PO BEDTIME PRN PRN Reason: insomnia Labs 09/26/23 04:33 09/26/23 04:33 Labs: Laboratory Results - last 24 hr 09/26/23 09/26/23 09/26/23 12:57 16:14 19:53 POC Glucose 195 H 147 H 290 H 09/27/23 07:15 POC Glucose 156 H Assessment and Plan (1) Anemia: Status: Acute (2) Elevated troponin: Status: Acute (3) Fluid overload: Status: Acute (4) End stage chronic kidney disease: Status: Acute Plan 68-year-old male with pertinent history of left BKA plus right TMA, ESRD on hemodialysis M/W/F, mixed hyperlipidemia, congestive heart failure with preserved ejection fraction, renal artery stenosis, mood disorder, BPH who presents to the emergency department for evaluation of dyspnea. Acute hypoxemic respiratory failure due to acute on chronic congestive heart failure with preserved ejection fraction in a patient with ESRD and has missed dialysis: -Lasix is ineffective and needs dialysis for fluid removal, had dialysis yesterday and another today Elevated troponin, likely related to demand ischemia from fluid overload amd underlying CAD -Troponin trending down, no active chest pain, no shorntes of breath, continue CAD meds (ASA, statin, BB, nitrate increase imdur to 90 today). -Cardiology advises ischemic work-up once the present condition is stable. -He received a dose of Lovenox yesterday, but not continuing full anticoagulation at this time Hypertension:--Blood pressure is better -His BP has been quite high due to fluid overload. -Continue Coreg, Hydralazine, Indur, and Nifedipine. Diabetes: BS ok, [place] lantus and ssi, poc per protocol Mood disorder: -On sertraline. Anemia of chronic kidney disease: -Hemoglobin above transfusion threshold. BPH: -Flomax. Mixed hyperlipidemia: -Lipitor and Zetia. DVT prophylaxis: Lovenox Full code need for inpatient: Acute fluid overload with end organ damage, necessitating urgent dialysis ad further management of NSTEMI Quality Stroke Does the patient have a stroke diagnosis?: No VTE Prior VTE?: No VTE Risk Level:: Medical - moderate - high VTE Device Contraindication: Treatment Not Indicated VTE Drug Contraindication: N/A - Med Ordered
--- NOTE | 2023-09-27 11:15 | PM.PNCARD ---
Subjective Subjective Date of Service: 09/27/23 Principal diagnosis: CHF, elevated troponins Interval history: Kingsley is doing a lot better compared to yesterday since dialysis. Currently undergoing dialysis. Blood pressure has improved. Denies any chest pain. Review of Systems Constitutional: Reports no additional constitutional complaints Cardiovascular: Denies chest pain and Denies dyspnea Respiratory: Denies dyspnea Gastrointestinal: Reports no additional gastrointestinal complaints Musculoskeletal: Reports no additional musculoskeletal complaints Physical Exam Vital Signs: Last Vital Signs Temp 97.3 F 09/27/23 08:00 Pulse 61 09/27/23 08:00 Resp 18 09/27/23 08:00 BP 176/88 H 09/27/23 08:00 Pulse Ox 97 09/27/23 08:08 O2 Del Method Nasal Cannula 09/27/23 08:08 O2 Flow Rate 1 09/27/23 08:08 BMI result Body Mass Index 28.7 Const General: cooperative, comfortable, alert and awake Nutritional Appearance: overweight Orientation/consciousness: patient oriented x3 HEENT Head: Yes normocephalic and Yes atraumatic Neck Neck: Yes trachea midline, Yes supple and Yes no JVD Resp Auscultation: clear to auscultation bilaterally Cardio Jugular venous distension: JVD Rate: regular rate Rhythm: regular rhythm Heart sounds: S1 normal heart sound present, S2 normal heart sound present, no click, no gallops, no murmurs and no rubs GI Auscultation: normal bowel sounds Skin General skin exam: no rashes or lesions noted Neuro General: patient oriented x3 Extrem General: No clubbing, No cyanosis and Yes edema Psych Appearance: grossly normal Objective Labs and Meds 09/26/23 04:33 09/26/23 04:33 Lab results: Laboratory Results - last 24 hr 09/26/23 09/26/23 09/26/23 12:57 16:14 19:53 POC Glucose 195 H 147 H 290 H 09/27/23 07:15 POC Glucose 156 H Progress Note: A&P Assessment and plan (1) CHF exacerbation: Status: Acute Assessment and Plan: Patient present with acute decompensated congestive heart failure despite being on dialysis therapy with acute onset with elevated troponins. There is high likelihood of multivessel coronary artery disease although he is not having any active symptoms at this point time. He will require cardiac catheterization and would schedule this in the near future as an outpatient. He is agreeable to this plan. Meanwhile will increase isosorbide to 90 mg daily. Continue all other therapy including his antihypertensive therapy as planned. He is currently on dialysis. Continue with his dialysis sessions as planned. He is advised to seek emergency care if his symptoms worsen. Anticipate discharge tomorrow. Would start him on high-intensity statin therapy if he is already not on it, aspirin therapy. Continue carvedilol as well as nifedipine therapy. Will sign of the case and follow-up as outpatient. Time Spent With Patient Time: Total time managing care of this patient today ____ minutes. Progress Note: Quality Stroke Does the patient have a stroke diagnosis?: No Procedures Date of Service Date of Service: 09/27/23
[2023-09-27 11:32] LABS: Glucose, Whole Blood 123 mg/dL (60-115)
[2023-09-27] MEDS: Insulin Glargine,Hum.rec.anlog 100 UNIT/ML 10 ML VIAL 17 UNIT SUBCUT (11:44)
[2023-09-27] MEDS: Enoxaparin Sodium 30 MG/0.3 ML SYRINGE SUBCUT (11:44)
[2023-09-27] MEDS: NIFEdipine ER 30 MG TAB.ER.24 90 MG PO (11:46)
[2023-09-27] MEDS: Gabapentin 300 MG CAPSULE PO (11:47)
[2023-09-27] MEDS: Ezetimibe 10 MG TABLET PO (11:47)
[2023-09-27] MEDS: carvediloL 25 MG TABLET PO ×2 (11:47→20:10)
[2023-09-27] MEDS: Sertraline HCL 50 MG TABLET PO (11:47)
[2023-09-27] MEDS: 0.9 % Sodium Chloride Flush 3 ML SYRINGE IVFLUSH ×3 (11:48→20:12)
[2023-09-27] MEDS: Aspirin 81 MG TAB.CHEW PO (11:48)
[2023-09-27] MEDS: hydrALAZINE HCl 50 MG TABLET 100 MG PO ×2 (15:21→20:10)
[2023-09-27 16:34] LABS: Glucose, Whole Blood 177 mg/dL (60-115)
[2023-09-27] MEDS: Insulin Lispro 100 UNIT/ML 3 ML VIAL SUBCUT ×3 (16:50→21:14)
[2023-09-27] MEDS: Docusate Sodium 100 MG CAPSULE PO (20:10)
[2023-09-27] MEDS: Atorvastatin Calcium 80 MG TABLET PO (20:10)
[2023-09-27] MEDS: Tamsulosin HCL 0.4 MG CAPSULE PO (20:10)
[2023-09-27 20:58] LABS: Glucose, Whole Blood 265 mg/dL (60-115)
[2023-09-28 03:22] VITALS: BP 168/74; PULSE 62; RESP 16; TEMP 36.4; O2SAT 97
[2023-09-28] MEDS: Omeprazole 40 MG CAPSULE.DR PO (05:56)
[2023-09-28 07:38] VITALS: BP 170/54; PULSE 65; RESP 18; TEMP 36.2; O2SAT 98
[2023-09-28 07:50] LABS: Glucose, Whole Blood 247 mg/dL (60-115)
[2023-09-28] MEDS: Enoxaparin Sodium 30 MG/0.3 ML SYRINGE SUBCUT (08:11)
[2023-09-28] MEDS: hydrALAZINE HCl 50 MG TABLET 100 MG PO (08:12)
[2023-09-28] MEDS: Insulin Lispro 100 UNIT/ML 3 ML VIAL SUBCUT ×2 (08:12→12:08)
[2023-09-28] MEDS: Gabapentin 300 MG CAPSULE PO (08:12)
[2023-09-28] MEDS: Insulin Glargine,Hum.rec.anlog 100 UNIT/ML 10 ML VIAL 17 UNIT SUBCUT (08:12)
[2023-09-28] MEDS: Isosorbide Mononitrate 30 MG TAB.ER.24H 90 MG PO (08:12)
[2023-09-28] MEDS: Ezetimibe 10 MG TABLET PO (08:13)
[2023-09-28] MEDS: NIFEdipine ER 30 MG TAB.ER.24 90 MG PO (08:13)
[2023-09-28] MEDS: carvediloL 25 MG TABLET PO (08:13)
[2023-09-28] MEDS: Sertraline HCL 50 MG TABLET PO (08:13)
[2023-09-28] MEDS: Aspirin 81 MG TAB.CHEW PO (08:13)
[2023-09-28] MEDS: 0.9 % Sodium Chloride Flush 3 ML SYRINGE IVFLUSH (08:17)
--- NOTE | 2023-09-28 10:18 | P.PNIM_ITS ---
Subjective Subjective Date of Service: 09/28/23 Interval History: Follow-up on shortness of breath due to fluid overload from missing dialysis. He is reporting feeling much better today with no sob, blood pressure still on high side Physical Exam 2 Vital Signs: Vital Signs: Last Vital Signs Temp 97.1 F 09/28/23 07:38 Pulse 65 09/28/23 07:38 Resp 18 09/28/23 07:38 BP 170/54 H 09/28/23 07:38 Pulse Ox 98 09/28/23 07:38 O2 Del Method Room Air 09/28/23 07:38 O2 Flow Rate 1 09/27/23 11:31 BMI result Body Mass Index 28.7 General: AO X 3, no acute distress Resp: CTA bilateral CVS: S1,S2,RRR GI: +BS, NT, no distention Skin: No rash, has amputation of both lower extremities Neuro: motor grossly intact Psych: appropriate affect Objective Data Active Medications Acetaminophen (Acetaminophen 325 Mg Tablet) 650 mg PO Q6H PRN PRN Reason: Pain, Mild (Pain Scale 1-3), fever or headache Albuterol Sulfate (Albuterol Sulfate 90 Mcg 8 Gm Inhaler) 2 puff INHALE Q4H PRN PRN Reason: Wheezing Aspirin (Aspirin 81 Mg Tab.Chew) 81 mg PO DAILY [facility] Last Admin: 09/28/23 08:13 Dose: 81 mg Documented By: MAIRA Atorvastatin Calcium (Atorvastatin Calcium 80 Mg Tablet) 80 mg PO BEDTIME [facility] Last Admin: 09/27/23 20:10 Dose: 80 mg Documented By: STEPHANIE Calcium Carbonate (Calcium Carbonate 750 Mg Tab.Chew) 750 mg PO Q4H PRN PRN Reason: Heartburn Carvedilol (Carvedilol 25 Mg Tablet) 25 mg PO BID [facility]; Protocol Last Admin: 09/28/23 08:13 Dose: 25 mg Documented By: MAIRA Docusate Sodium (Docusate Sodium 100 Mg Capsule) 100 mg PO BEDTIME [facility] Last Admin: 09/27/23 20:10 Dose: 100 mg Documented By: STEPHANIE Ezetimibe (Ezetimibe 10 Mg Tablet) 10 mg PO DAILY [facility] Last Admin: 09/28/23 08:13 Dose: 10 mg Documented By: MAIRA Enoxaparin Sodium (Enoxaparin Sodium 30 Mg/0.3 Ml Syringe) 30 mg SUBCUT DAILY [facility] Last Admin: 09/28/23 08:11 Dose: 30 mg Documented By: MAIRA Fluticasone Propionate (Fluticasone Propionate Nasal 16 Gm [place]) 2 spray NOSTRIL-B DAILY PRN PRN Reason: Congestion Gabapentin (Gabapentin 300 Mg Capsule) 300 mg PO DAILY [facility] Last Admin: 09/28/23 08:12 Dose: 300 mg Documented By: MAIRA Glucose (Glucose Gel 15 Gm Gel..Gram.) 15 gm PO Q15M PRN; Protocol PRN Reason: per Hypoglycemia Standing Ord. Hydralazine HCl (Hydralazine Hcl 50 Mg Tablet) 100 mg PO TID [facility]; Protocol Last Admin: 09/28/23 08:12 Dose: 100 mg Documented By: MAIRA Dextrose (D10) 250 mls @ 750 mls/hr IV Q15M PRN; Protocol PRN Reason: per Hypoglycemia Standing Ord. Insulin Glargine (Insulin Glargine,Hum.Rec.Anlog 100 Unit/Ml 10 Ml Vial) 17 unit SUBCUT DAILY [facility] Last Admin: 09/28/23 08:12 Dose: 17 unit Documented By: MAIRA Insulin Human Lispro (Insulin Lispro 100 Unit/Ml 3 Ml Vial) 0 unit SUBCUT QIDACHS [facility]; Protocol Last Admin: 09/28/23 08:12 Dose: 4 unit Documented By: MAIRA Isosorbide Mononitrate (Isosorbide Mononitrate 30 Mg Tab.Er.24h) 90 mg PO DAILY [facility]; Protocol Last Admin: 09/28/23 08:12 Dose: 90 mg Documented By: MAIRA Magnesium Hydroxide (Milk Of Magnesia 30 Ml Oral.Susp) 30 ml PO DAILY PRN PRN Reason: Constipation Melatonin (Melatonin 3 Mg Tablet) 6 mg PO BEDTIME PRN PRN Reason: Insomnia Nifedipine (Nifedipine Er 30 Mg Tab.Er.24) 90 mg PO DAILY [facility]; Protocol Last Admin: 09/28/23 08:13 Dose: 90 mg Documented By: MAIRA Non-Formulary Medication (Icosapent Ethyl) 1 gm PO BEDTIME [facility] Omeprazole (Omeprazole 40 Mg Capsule.Dr) 40 mg PO DAILY@0630 [facility] Last Admin: 09/28/23 05:56 Dose: 40 mg Documented By: STEPHANIE Ondansetron HCl (Ondansetron Hcl 4 Mg/2 Ml Vial) 4 mg IVPUSH Q8H PRN PRN Reason: Nausea and Vomiting Sertraline HCl (Sertraline Hcl 50 Mg Tablet) 50 mg PO DAILY [facility] Last Admin: 09/28/23 08:13 Dose: 50 mg Documented By: MAIRA Sodium Chloride (0.9 % Sodium Chloride Flush 3 Ml Syringe) 3 ml IVFLUSH QSHIFT [facility] Last Admin: 09/28/23 08:17 Dose: 3 ml Documented By: MAIRA Tamsulosin HCl (Tamsulosin Hcl 0.4 Mg Capsule) 0.4 mg PO BEDTIME [facility] Last Admin: 09/27/23 20:10 Dose: 0.4 mg Documented By: STEPHANIE Trazodone HCl (Trazodone Hcl 100 Mg Tablet) 100 mg PO BEDTIME PRN PRN Reason: insomnia Labs 09/26/23 04:33 09/26/23 04:33 Labs: Laboratory Results - last 24 hr 09/27/23 09/27/23 09/27/23 11:27 16:30 20:54 POC Glucose 123 H 177 H 265 H 09/28/23 07:38 POC Glucose 247 H Assessment and Plan (1) Anemia: Status: Acute (2) Elevated troponin: Status: Acute (3) Fluid overload: Status: Acute (4) End stage chronic kidney disease: Status: Acute Plan 68-year-old male with pertinent history of left BKA plus right TMA, ESRD on hemodialysis M/W/F, mixed hyperlipidemia, congestive heart failure with preserved ejection fraction, renal artery stenosis, mood disorder, BPH who presents to the emergency department for evaluation of dyspnea. Acute hypoxemic respiratory failure due to acute on chronic congestive heart failure with preserved ejection fraction in a patient with ESRD and has missed dialysis: -Lasix is ineffective and needs dialysis for fluid removal, had dialysis yesterday and another today Elevated troponin, likely related to demand ischemia from fluid overload amd underlying CAD -Troponin has trended down, no active chest pain, no shorntes of breath, continue CAD meds (ASA, statin, BB, nitrate increase imdur to 90 today). -Cardiology advises ischemic work-up once the present condition is stable. -He received a dose of Lovenox x 1, but not continuing full anticoagulation at this time Hypertension:--Blood pressure is better but not optimal -Continue Coreg 25 bid, Hydralazine 100 tid, Indur 90, and Nifedipine 90. Add Lisinopril 10 if persistently high Diabetes: carlos Mcginnis and ssi, poc per protocol Mood disorder: -On sertraline. Anemia of chronic kidney disease: -Hemoglobin above transfusion threshold. BPH: -Flomax. Mixed hyperlipidemia: -Lipitor and Zetia. DVT prophylaxis: Lovenox Full code need for inpatient: Acute fluid overload with end organ damage, necessitating urgent dialysis ad further management of NSTEMI Quality Stroke Does the patient have a stroke diagnosis?: No VTE Prior VTE?: No VTE Risk Level:: Medical - moderate - high VTE Device Contraindication: Treatment Not Indicated VTE Drug Contraindication: N/A - Med Ordered
[2023-09-28 11:19] LABS: Glucose, Whole Blood 222 mg/dL (60-115)
[2023-09-28 11:25] VITALS: BP 117/57; PULSE 57; RESP 18; TEMP 36.1; O2SAT 97
[2023-09-28 11:26] VITALS: BP 117/57
[2023-09-28] MEDS: lisinopriL 10 MG TABLET PO (11:26)
--- NOTE | 2023-09-28 12:55 | PM.PNCARD ---
Subjective Subjective Date of Service: 09/28/23 Principal diagnosis: CHF, elevated troponins Interval history: No chest pain or shortness of breath. Blood pressure remains elevated. Although clinically doing well at this point time. No palpitations. Review of Systems Review of Systems Yes all other systems are reviewed and are negative Physical Exam Vital Signs: Last Vital Signs Temp 96.9 F 09/28/23 11:25 Pulse 57 09/28/23 11:25 Resp 18 09/28/23 11:25 BP 117/57 L 09/28/23 11:26 Pulse Ox 97 09/28/23 11:25 O2 Del Method Room Air 09/28/23 11:25 O2 Flow Rate 1 09/27/23 11:31 BMI result Body Mass Index 28.7 Const General: cooperative, comfortable, alert and awake Nutritional Appearance: overweight Orientation/consciousness: patient oriented x3 HEENT Head: Yes normocephalic and Yes atraumatic Neck Neck: Yes trachea midline, Yes supple and Yes no JVD Resp Auscultation: clear to auscultation bilaterally Cardio Jugular venous distension: JVD Rate: regular rate Rhythm: regular rhythm Heart sounds: S1 normal heart sound present, S2 normal heart sound present, no click, no gallops, no murmurs and no rubs GI Auscultation: normal bowel sounds Skin General skin exam: no rashes or lesions noted Neuro General: patient oriented x3 Extrem General: No clubbing, No cyanosis and Yes edema Psych Appearance: grossly normal Objective Labs and Meds 09/26/23 04:33 09/26/23 04:33 Lab results: Laboratory Results - last 24 hr 09/27/23 09/27/23 09/28/23 16:30 20:54 07:38 POC Glucose 177 H 265 H 247 H 09/28/23 11:10 POC Glucose 222 H Progress Note: A&P Assessment and plan (1) CHF exacerbation: Status: Acute Assessment and Plan: CHF exacerbation with sudden-onset. Could be related to significant ischemic cardiac disease. Needs cardiac catheterization. Will be scheduled in near future. If negative more likely also could be related to renal artery stenosis. With this will need investigation renal duplex as an outpatient. Given his uncontrolled blood pressure multiple antihypertensive this also high likelihood. Clinically doing well after dialysis. Advised to continue maintain his dialysis session on Saturday. Continues take all his medications. Isosorbide was increased. Plan for cardiac catheterization in near future on Saturday. Continue aspirin and high-intensity statin therapy. Will follow up as outpatient. Time Spent With Patient Time: Total time managing care of this patient today ____ minutes. Progress Note: Quality Stroke Does the patient have a stroke diagnosis?: No Procedures Date of Service Date of Service: 09/28/23
--- NOTE | 2023-09-28 13:50 | PM.DS ---
DS: Providers Provider Date of Service: 09/28/23 Date of admission: 09/25/23 23:26 Primary care physician: Marline Richard MD Consults: 09/26/23 01:33 Consult to Cardiology Routine Consulting Provider: [facility] Reason for consultation: NSTEMI Has provider been notified: Yes 09/26/23 09:28 Consult to Nephrology Routine Consulting Provider: [facility] Reason for consultation: ESRD, needs dialysis Has provider been notified: No DS: Diagnosis Discharge Diagnosis (1) CHF exacerbation: Status: Acute DS: Summary Hospital Course Hospital Course: admission hpi Chief Complaint: Dyspnea This is a 68-year-old male with pertinent history of left BKA plus right TMA, ESRD on hemodialysis M/W/F, mixed hyperlipidemia, congestive heart failure with preserved ejection fraction, renal artery stenosis, mood disorder, BPH who presents to the emergency department for evaluation of dyspnea. Patient states he has been having dyspnea for the last 2 days. Does not use oxygen at home. Dyspnea is worse with exertion. Admits orthopnea. Patient missed his hemodialysis session on the day of presentation. Does make urine however minimal. No chest pain, wheezing or cough. Patient denies fever, chills, nausea, vomiting, palpitations, abdominal pain, changes in urinary or bowel habits. In the emergency department, patient requiring 2 L supplemental oxygen. Troponin was noted to be elevated Hospital course: Patient presented with shortness of breath after missing dialysis. He was in acute hypoxic respiratory failure, and his troponin I levels were elevated in the range of NSTEMI. Additionally, his blood pressure was markedly high. Acute fluid overload was managed with urgent dialysis as diuretics were ineffective. His shortness of breath has improved with the fluid removal from dialysis, and he is presently off oxygen and asymptomatic. Elevated troponin I was deemed to be type 2 [place] due to fluid overload. Initially, he was given therapeutic Lovenox but has since been managed medically with statin, Coreg, ASA, and Imdur. Cardiology (Dr. Bonilla) assessed him and deemed him to have likely significant CAD, warranting further investigation with cardiac catheterization, which has been arranged on an outpatient basis for September 30 at [facility]. Regarding hypertensive emergency, his blood pressure medications have been restarted, including Coreg 25 mg twice daily, Hydralazine 100 mg three times daily, Nifedipine 90 mg daily, and Imdur, which has been increased from 60 mg daily to 90 mg daily. His blood pressure is now much better controlled. As for missing dialysis, he was dialyzed two days in a row and is back on his usual schedule of Saturday, Saturday, and Saturday. final diagnosis: Acute diastolic heart failure due to fluid overload from missing dialysis. Non ST-elevation myocardial infarction ( NSTEMI). Hypertension emergency Time Attestation Discharge Coordination Time (in mins): 45 Quality: Safe Use of Opioids Does Pt have an Active Cancer Diagnosis on the Problem List?: No Quality: Stroke Does the patient have a stroke diagnosis?: No Physical Exam Vital Signs: Vital Signs: Last Vital Signs Temp 96.9 F 09/28/23 11:25 Pulse 57 09/28/23 11:25 Resp 18 09/28/23 11:25 BP 117/57 L 09/28/23 11:26 Pulse Ox 97 09/28/23 11:25 O2 Del Method Room Air 09/28/23 11:25 O2 Flow Rate 1 09/27/23 11:31 BMI result Body Mass Index 28.7 General: AO X 3, no acute distress Resp: CTA bilateral CVS: S1,S2,RRR GI: +BS, NT, no distention Skin: No rash, has amputation of both lower extremities Neuro: motor grossly intact Psych: appropriate affect DS: Data Data Completed and Pending Labs on day of discharge: Laboratory Results - last 24 hr 09/27/23 09/27/23 09/28/23 16:30 20:54 07:38 POC Glucose 177 H 265 H 247 H 09/28/23 11:10 POC Glucose 222 H Discharge Plan Discharge Anticipated Discharge Date/Time: 09/28/23 13:29 Patient Disposition: Home, Self-Care Discharge Diagnosis: NSTEMI, Fluid overload, Heart failure Referrals: Marline Richard MD [Primary Care Provider] - 1 Week Discharge Medications: New isosorbide mononitrate 30 mg Tablet Extended Release 24 Hr 90 mg PO DAILY 90 Days Qty: 270 0RF Protocol: Hold for SBP< HOLD for SBP < : 90 Continued atorvastatin 80 mg tablet 80 mg PO BEDTIME tamsulosin 0.4 mg capsule 0.4 mg PO BEDTIME docusate sodium 100 mg capsule 100 mg PO BEDTIME gabapentin 300 mg capsule 300 mg PO DAILY aspirin 81 mg tablet,chewable 1 tab PO DAILY hydralazine 50 mg tablet 100 mg PO TID albuterol sulfate [Ventolin HFA] 90 mcg/actuation HFA aerosol inhaler 2 puff INHALATION Q4H PRN (Reason: Wheezing) fluticasone propionate 50 mcg/actuation spray,suspension 2 spray intranasal DAILY PRN (Reason: Congestion) ezetimibe 10 mg tablet 10 mg PO DAILY (DME) FreeStyle Daniel 2 Sensor Kit MISCELLANEOUS Q2W (DME) FreeStyle Daniel 2 [place] Misc MISCELLANEOUS QAM carvedilol 25 mg Tablet 25 mg PO BID Qty: 60 0RF Protocol: Hold for SBP/HR < HOLD for SBP < : 90 HOLD for HR < : 60 cholecalciferol (vitamin D3) 1,250 mcg (50,000 unit) capsule 50,000 unit PO BEVERLY nifedipine 30 mg Tablet Extended Release 24hr 90 mg PO DAILY Qty: 30 1RF Protocol: Hold for SBP< HOLD for SBP < : 90 trazodone 100 mg tablet 100 mg PO BEDTIME PRN (Reason: insomnia) icosapent ethyl 1 gram capsule 1 g PO BEDTIME insulin degludec [Tresiba FlexTouch U-100] 100 unit/mL (3 mL) insulin pen 25 unit subcut DAILY omeprazole 40 mg capsule,delayed release(DR/EC) 40 mg PO DAILY Qty: 30 0RF sertraline 50 mg tablet 50 mg PO DAILY Discontinued isosorbide mononitrate 60 mg tablet extended release 24 hr 60 mg PO QAM Qty: 30 6RF Discharge Orders: Discharge Order (Routine); Ordered 09/28/23 Ordered By: Dale Bocanegra Diet: Advance to usual diet Activity on Discharge: As tolerated Stand Alone Forms: Patient Portal Discharge page Print Language: Occitan Care Plan Goals: full recovery from fluid overload and a non ST elevation myocardial infarction ( heart attack) Health Concerns: fluid overload ( heart failure) heart attack Plan of Treatment: Continue your medications Imdur dose has been increased to 90 mg daily You are to report to [facility] on Saturday for cardiac catherization Assessment: see above Discharge Date/Time: 09/28/23 15:44
[2023-09-28 14:31] VITALS: BP 123/58; PULSE 61; RESP 18; TEMP 36; O2SAT 98
--- NOTE | 2023-09-28 14:38 | MHC.CM.PN ---
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
== END 2023-09-28 15:44 | disposition home or self-care (01) | DRG 280 ==
LOC: HO.ED 20:27 → HO.EDOVER 23:30 → HO.S3 09-26 11:48
PROVIDERS: Admitting Provider Student in an Organized Health Care Education/Training Program; Emergency Provider Internal Medicine; PCP General Practice; Visit Provider Internal Medicine
DX: I13.2 Hypertensive heart and chronic kidney disease with heart failure and with stage 5 chronic kidney disease, or end stage renal disease (principal); I50.33 Acute on chronic diastolic (congestive) heart failure; I21.A1 Myocardial infarction type 2; N18.6 End stage renal disease; J96.01 Acute respiratory failure with hypoxia; I16.1 Hypertensive emergency; E11.22 Type 2 diabetes mellitus with diabetic chronic kidney disease; D63.1 Anemia in chronic kidney disease; N40.0 Benign prostatic hyperplasia without lower urinary tract symptoms; E78.2 Mixed hyperlipidemia; I25.10 Atherosclerotic heart disease of native coronary artery without angina pectoris; F39 Unspecified mood [affective] disorder; E11.51 Type 2 diabetes mellitus with diabetic peripheral angiopathy without gangrene; Z20.822 Contact with and (suspected) exposure to COVID-19; Z89.512 Acquired absence of left leg below knee; Z99.2 Dependence on renal dialysis; Z91.158 Patient's noncompliance with renal dialysis for other reason; Z79.84 Long term (current) use of oral hypoglycemic drugs; Z79.82 Long term (current) use of aspirin; Z79.899 Other long term (current) drug therapy
CPT/HCPCS: 0241U; 36415; 71045; 80048; 80053; 82803; 82947; 83880; 84484; 85025; 85610; 86850; 86900; 86901; 90999; 93005; 94640; 99285; J1650; J1920; J1940

== ENCOUNTER → 2023-09-25 23:26 | Outpatient (BNV) | payer OTHER, SELFPAY | PROVIDERS: Admitting Provider Student in an Organized Health Care Education/Training Program; Emergency Provider Internal Medicine; PCP General Practice; Visit Provider Internal Medicine Cardiovascular Disease | DX: I50.9 Heart failure, unspecified (principal) | CPT/HCPCS: 93010; 99222; 99233 ==

== ENCOUNTER → 2023-09-25 23:26 | Outpatient (BNV) | payer OTHER, SELFPAY | PROVIDERS: Admitting Provider Student in an Organized Health Care Education/Training Program; Emergency Provider Internal Medicine; Visit Provider Student in an Organized Health Care Education/Training Program | DX: I50.33 Acute on chronic diastolic (congestive) heart failure (principal); N18.6 End stage renal disease; I21.4 Non-ST elevation (NSTEMI) myocardial infarction; I16.1 Hypertensive emergency | CPT/HCPCS: 99223; 99232; 99233; 99239; 99499 ==

== ENCOUNTER → 2023-10-03 23:59 | Outpatient (BNV) | payer OTHER, SELFPAY | PROVIDERS: PCP General Practice; Visit Provider Internal Medicine Cardiovascular Disease | DX: I21.4 Non-ST elevation (NSTEMI) myocardial infarction (principal); I50.9 Heart failure, unspecified | CPT/HCPCS: 93458; 99152 ==

== ENCOUNTER 2023-10-08 16:58 | Emergency (ER) | payer OTHER, SELFPAY ==
--- NOTE | ~2023-10-08 | XR_ITS ---
EXAMINATION: XR CHEST CLINICAL INFORMATION: Chest pain. COMPARISON: Chest radiograph dated 09/25/2023. TECHNIQUE: Frontal view of the chest was obtained. FINDINGS: There is a dual-lumen right internal jugular vein catheter with tip overlying the right atrium. The cardiac silhouette remains mildly enlarged. There is no consolidation. There is central vascular prominence without overt edema. No large pleural effusion. No pneumothorax. No acute osseous abnormality. XR/XR chest 1V IMPRESSION: Stable, mild cardiomegaly. Central vascular prominence without overt edema.
[2023-10-08 17:09] VITALS: BP 133/70; PULSE 60; O2SAT 97
--- NOTE | 2023-10-08 17:10 | ED.RECABL ---
HPI - Recheck/Abnormal Lab/Rx General Chief Complaint: Recheck/Abnormal Lab/Rx Stated Complaint: From urgent care, low hemoglobin Time Seen by Provider: 10/08/23 20:13 Related Data Home Medications ?Medication ?Instructions ?Recorded ?Confirmed sertraline 50 mg tablet 50 mg PO DAILY 04/27/21 09/26/23 albuterol sulfate 90 mcg/actuation 2 puff inhalation Q4H PRN Wheezing 01/13/23 09/26/23 aerosol inhaler (Ventolin HFA) aspirin 81 mg chewable tablet 1 tab PO DAILY 01/13/23 09/26/23 atorvastatin 80 mg tablet 80 mg PO BEDTIME 01/13/23 09/26/23 docusate sodium 100 mg capsule 100 mg PO BEDTIME 01/13/23 09/26/23 ezetimibe 10 mg tablet 10 mg PO DAILY 01/13/23 09/26/23 flash glucose scanning reader 01/13/23 01/21/23 (Expert360 Daniel 2 [place]) flash glucose sensor ([employer] 01/13/23 01/21/23 Daniel 2 Sensor kit) fluticasone propionate 50 2 spray intranasal DAILY PRN 01/13/23 09/26/23 mcg/actuation nasal Congestion spray,suspension gabapentin 300 mg capsule 300 mg PO DAILY 01/13/23 09/26/23 hydralazine 50 mg tablet 100 mg PO TID 01/13/23 09/26/23 tamsulosin 0.4 mg capsule 0.4 mg PO BEDTIME 01/13/23 09/26/23 cholecalciferol (vitamin D3) 1,250 50,000 unit PO BEVERLY 01/21/23 09/26/23 mcg (50,000 unit) capsule icosapent ethyl 1 gram capsule 1 g PO BEDTIME 09/26/23 09/26/23 insulin degludec 100 unit/mL (3 25 unit subcut DAILY 09/26/23 09/26/23 mL) subcutaneous pen (Tresiba FlexTouch U-100 insulin) trazodone 100 mg tablet 100 mg PO BEDTIME PRN insomnia 09/26/23 09/26/23 Previous Rx's ?Medication ?Instructions ?Recorded carvedilol 25 mg tablet 25 mg PO BID #60 tabs 01/15/23 nifedipine 30 mg tablet,extended 90 mg PO DAILY #30 tabs 02/01/23 release 24 hr omeprazole 40 mg capsule,delayed 40 mg PO DAILY #30 caps 02/14/23 release isosorbide mononitrate 30 mg 90 mg PO DAILY 90 days #270 tabs 09/28/23 tablet,extended release 24 hr Allergies Allergy/AdvReac Type Severity Reaction Status Date / Time metformin AdvReac Unknown Verified 10/08/23 17:53 [facility] Past Medical History Medical History Fluid overload Anemia in ESRD (end-stage renal disease) Anemia PAD (peripheral artery disease) Acute kidney injury superimposed on CKD Hypertension Type 2 diabetes mellitus ESRD (end stage renal disease) CKD (chronic kidney disease) stage 3, GFR 30-59 ml/min Renal artery stenosis Anemia Uncontrolled hypertension Erectile dysfunction (HFpEF) heart failure with preserved ejection fraction Osteomyelitis CKD stage 3 due to type 2 diabetes mellitus LIVE (iron deficiency anemia) Hyperlipidemia associated with type 2 diabetes mellitus Kidney disease High cholesterol HTN (hypertension) Diabetes Surgical History Status post transmetatarsal amputation of left foot Hx of amputation History of amputation of right forefoot H/O shoulder surgery Family History Family History Other No family history of coronary artery disease Social History Social History Household Members: None Housing: Apartment Do you presently have visiting nurse or other home services: Yes ([employer] ONLY) Alcohol intake: current Alcohol intake frequency: holidays/special occasions only Alcohol type: beer Comment: previously medicated with IV morphine Patient Tobacco Use Status: Never used Tobacco Tobacco use type: Cigarette Smoked in Last 30 Days: No Second Hand Smoke Exposure: No Use of substances other than those prescribed or required for medical reasons: No Substance Use Type: Crack/Cocaine Advance Directives: Yes Advance Directives on File: Yes Advance Directives Date on File: 02/02/22 service: No Current occupational status: retired Physical Exam Vital Signs: Vital Signs: Last Vital Signs Temp 97.6 F 10/08/23 20:09 Pulse 60 10/08/23 20:09 Resp 13 10/08/23 20:09 BP 151/92 H 10/08/23 20:09 Pulse Ox 96 10/08/23 20:09 O2 Del Method Room Air 10/08/23 20:09 BMI result Body Mass Index 30.9 Course Course Course Narrative: This is a Rapid Medical Examination (RME) performed by uRss Foy PA-C in triage. Full HPI, ROS, assessment and treatment plan per primary provider in the Main ED. 68 yo Vincentian speaking male with history of chronic iron deficiency anemia/anemia of chronic disease with ESRD on HD M/W/F, DM2, HTN, renal artery stenosis, CHF who presents to the ER from Urgent Care via EMS for evaluation of anemia. He was initially seen there for low BP of 80 after he took his BP meds. He was found to have a hemoglobin of 7.5 from 10 per EMS report. Sent to the ER for evaluation of anemia. Per review of chart patient recently admitted here for hypoxic resp failure after missing HD, NSTEMI and seen by Dr. Bonilla who recommended a cardiac cath. his antihypertensive were titrated up. patient denies an GI bleeding. endorses chest pain this morning when he was watching TV, self resolved. no pain at this time, BP stable in triage Plan: labs, EKG, T&S. Medical Decision Making Lab Data 10/08/23 18:42 10/08/23 18:42 Labs: Lab Results 10/08/23 10/08/23 10/08/23 Range/Units 18:42 21:34 21:44 WBC 8.9 (4.8-10.8) X10*3/uL RBC 2.69 L (4.60-5.80) X10*6/uL Hgb 8.9 L (14.0-18.0) g/dl Hct 25.8 L (42.0-52.0) % MCV 95.9 (80.0-98.0) fL MCH 33.1 H (27.0-33.0) pg MCHC 34.5 (31.0-36.0) g/dl RDW 14.3 (11.0-16.0) % Plt Count 304 D (160-400) X10*3/uL MPV 9.7 (9.4-12.4) fL Immature Gran % (Auto) 0.3 (0.0-0.4) % Neut % (Auto) 67.4 (45-73) % Lymph % (Auto) 19.5 L (20-40) % [place] % (Auto) 10.4 (2-11) % Eos % (Auto) 1.7 (0-4) % Baso % (Auto) 0.7 (0-2) % Lymph # (Auto) 1.7 (1.2-4.9) X10*3/uL [place] # (Auto) 0.9 (0.1-1.2) X10*3/uL Eos # (Auto) 0.2 (0.0-0.4) X10*3/uL Baso # (Auto) 0.1 (0.0-0.2) X10*3/uL Abs Immat Gran (auto) 0.03 (0.00-0.03) X10*3/uL Absolute Neuts (auto) 6.0 (2.0-8.3) x10*3/uL Absolute Nucleated RBC 0.000 (0.0-0.012) X10*3/uL Nucleated RBC % (auto) 0.0 (0.0-0.2) /100WBC Sodium 139 (135-145) mmol/L Potassium 4.0 (3.3-5.1) mmol/L Chloride 100 (96-108) mmol/L Carbon Dioxide 25 (22-29) mmol/L Anion Gap 18 (12-20) BUN 46 H (9-16) mg/dL Creatinine 5.78 H* (0.5-1.4) mg/dL Estim Creat Clear Calc 12.2 Estimated GFR 10 Random Glucose 112 (60-115) mg/dL Calcium 8.8 (8.4-10.2) mg/dL Magnesium 1.8 (1.6-2.6) mg/dL Iron 73 (45-160) mcg/dL TIBC 203 L (228-428) mcg/dL % Saturation 36 (15-50) % Unsat Iron Binding 130 ug/dL Total Bilirubin 0.4 (0.0-1.0) mg/dL Direct Bilirubin 0.1 (0.0-0.5) mg/dL AST 25 (5-37) U/L ALT 20 (0-40) U/L Alkaline Phosphatase 125 H (39-117) U/L Troponin I High Sens 17.2 D 16.4 (<3.5-35.0) ng/L Total Protein 7.1 (6.5-8.0) g/dL Albumin 3.6 (3.5-5.0) g/dL Stool Occult Blood NEGATIVE (NEGATIVE) Blood Type O Positive Antibody Screen NEGATIVE Discharge Plan Discharge Clinical Impression: End stage chronic kidney disease Patient Disposition: Home, Self-Care Instructions: End Stage Kidney Disease (ED) Additional Instructions: Please go to dialysis tomorrow Prescriptions: No Action atorvastatin 80 mg tablet 80 mg PO BEDTIME tamsulosin 0.4 mg capsule 0.4 mg PO BEDTIME docusate sodium 100 mg capsule 100 mg PO BEDTIME gabapentin 300 mg capsule 300 mg PO DAILY aspirin 81 mg tablet,chewable 1 tab PO DAILY hydralazine 50 mg tablet 100 mg PO TID albuterol sulfate [Ventolin HFA] 90 mcg/actuation HFA aerosol inhaler 2 puff INHALATION Q4H PRN (Reason: Wheezing) fluticasone propionate 50 mcg/actuation spray,suspension 2 spray intranasal DAILY PRN (Reason: Congestion) ezetimibe 10 mg tablet 10 mg PO DAILY (DME) FreeStyle Daniel 2 Sensor Kit MISCELLANEOUS Q2W (DME) FreeStyle Daniel 2 [place] Misc MISCELLANEOUS QAM carvedilol 25 mg Tablet 25 mg PO BID Qty: 60 0RF Protocol: Hold for SBP/HR < HOLD for SBP < : 90 HOLD for HR < : 60 cholecalciferol (vitamin D3) 1,250 mcg (50,000 unit) capsule 50,000 unit PO BEVERLY nifedipine 30 mg Tablet Extended Release 24hr 90 mg PO DAILY Qty: 30 1RF Protocol: Hold for SBP< HOLD for SBP < : 90 trazodone 100 mg tablet 100 mg PO BEDTIME PRN (Reason: insomnia) icosapent ethyl 1 gram capsule 1 g PO BEDTIME insulin degludec [Tresiba FlexTouch U-100] 100 unit/mL (3 mL) insulin pen 25 unit subcut DAILY isosorbide mononitrate 30 mg Tablet Extended Release 24 Hr 90 mg PO DAILY 90 Days Qty: 270 0RF Protocol: Hold for SBP< HOLD for SBP < : 90 omeprazole 40 mg capsule,delayed release(DR/EC) 40 mg PO DAILY Qty: 30 0RF sertraline 50 mg tablet 50 mg PO DAILY Referrals: Marline Richard MD [Primary Care Provider] - 10/10/23 Elia Bonilla MD [Physician] - 10/10/23 Print Language: Vincentian
[2023-10-08 17:49] VITALS: BP 126/45; PULSE 60; RESP 18; TEMP 36.3; O2SAT 96; BMI 30.9
--- NOTE | 2023-10-08 17:56 | ECG_ITS ---
Test Reason : CP Blood Pressure : / mmHG Vent. Rate : 055 BPM Atrial Rate : 055 BPM P-R Int : 258 ms QRS Dur : 102 ms QT Int : 462 ms P-R-T Axes : 012 019 024 degrees QTc Int : 441 ms Sinus bradycardia with 1st degree A-V block Otherwise normal ECG When compared with ECG of 25-SEP-2023 20:07, No significant change was found Referred By: Margie Foy Electronically Signed By:Armando Moody
[2023-10-08 18:51] LABS: MANUAL DIFF FLAG NO
[2023-10-08 19:03] LABS: Basophils Absolute Auto 0.1 X10*3/uL (0.0-0.2); Basophils Percent Auto 0.7 % (0-2); Eosinophils Absolute Auto 0.2 X10*3/uL (0.0-0.4); Eosinophils Percent Auto 1.7 % (0-4); Hematocrit 25.8 % (42.0-52.0); Hemoglobin 8.9 g/dl (14.0-18.0); Imm Gran Abs Auto 0.03 X10*3/uL (0.00-0.03); Imm Gran Pct Auto 0.3 % (0.0-0.4); Lymphocytes Absolute Auto 1.7 X10*3/uL (1.2-4.9); Lymphocytes Percent Auto 19.5 % (20-40); Mean Corpuscular HGB Conc 34.5 g/dl (31.0-36.0); Mean Corpuscular Hemoglobin 33.1 pg (27.0-33.0); Mean Corpuscular Volume 95.9 fL (80.0-98.0); Mean Platelet Volume 9.7 fL (9.4-12.4); Monocytes Absolute Auto 0.9 X10*3/uL (0.1-1.2); Monocytes Percent Auto 10.4 % (2-11); Neutrophils Percent Auto 67.4 % (45-73); Platelet Count 304 X10*3/uL (160-400); Red Blood Count 2.69 X10*6/uL (4.60-5.80); Red Cell Distribution Width 14.3 % (11.0-16.0); White Blood Count 8.9 X10*3/uL (4.8-10.8)
[2023-10-08 19:14] LABS: Alanine Aminotransferase 20 U/L (0-40); Albumin Level 3.6 g/dL (3.5-5.0); Alkaline Phosphatase 125 U/L (39-117); Anion Gap 18 (12-20); Aspartate Amino Transferase 25 U/L (5-37); Bilirubin Direct 0.1 mg/dL (0.0-0.5); Bilirubin Total 0.4 mg/dL (0.0-1.0); Blood Urea Nitrogen 46 mg/dL (9-16); Calcium 8.8 mg/dL (8.4-10.2); Carbon Dioxide 25 mmol/L (22-29); Chloride 100 mmol/L (96-108); Creatinine Clr Calc Pharmacy 12.2; Estimated Glomerular Filt Rate 10; Glucose Random 112 mg/dL (60-115); Iron 73 mcg/dL (45-160); Magnesium 1.8 mg/dL (1.6-2.6); Percent Iron Saturation 36 % (15-50); Sodium 139 mmol/L (135-145); Total Iron Binding Capacity 203 mcg/dL (228-428); Total Protein 7.1 g/dL (6.5-8.0); Unsaturated Iron Binding 130 ug/dL
[2023-10-08 19:16] LABS: Troponin-I High Sensitivity 17.2 ng/L (<3.5-35.0)
[2023-10-08 19:56] VITALS: BP 144/49; PULSE 60; RESP 13; TEMP 36.4; O2SAT 96
--- OUTSIDE RECORDS SUMMARY | 2023-10-08 20:05 | XMS_ITS | Continuity of Care Document ---
Author Organization [facility] ter Address [address] [place] [id number]- Care Team Providers Care Senior Datastage Developer Name Role Phone Jose Manuel AHUJA, Marline Ordoñez Primary Care Physician Encounter [facility] Date(s): 10/03/23 - 10/03/[address] [address] Discharge Disposition: A-D/C Home Attending Physician: Armando Moody MD Admitting Physician: Armando Moody MD Referring Physician: Elia Bonilla MD Allergies, Adverse Reactions, Alerts Substance Reaction [...] opioid drug. Start Date: 03/12/23 Status: Ordered Freestyle Lite [...] solution See Instructions, INJECT 25 UNITS SUBCUTANEOUSLY EVERY DAY, # 15 mL, 0 Refills, Maintenance, 10/01/23 11:17:00 EDT, [facility], 166, cm, 06/18/23 9:40:00 EDT, Height, 64.8, kg, 03/12/23 9:18:00 EST, Dry Weight Start Date: 10/01/23 Status: Ordered Trueplus lancets 33 gauge Trueplus [...] atus Informant Obese class I Confirmed Active Vital Signs Most recent to oldest [Reference Range]: 1 2 3 Weight 86.4 kg (10/03/23 10:22 AM) Oxygen Saturation [94-100 %] 97 % (10/03/23 4:15 PM) 98 % (10/03/23 3:45 PM) 99 % (10/03/23 3:15 PM) Pulse Rate [55-90 bpm] 73 bpm (10/03/23 10:22 AM) Blood Pressure [90-138/55-84 mm Hg] 141/80mm Hg *H* (10/03/23 4:15 PM) 107/88mm Hg (10/03/23 3:45 PM) 102/56mm Hg (10/03/23 3:15 PM) Respiratory Rate [16-30 br/min] 15 br/min *L* (10/03/23 4:15 PM) 15 br/min *L* (10/03/23 3:45 PM) 11 br/min *L* (10/03/23 3:15 PM) Temperature [96.8-100.4 DegF] 97.7 DegF (10/03/23 10:22 AM) Mode of Delivery (Oxygen) Room air (10/03/23 4:15 PM) Room air (10/03/23 3:45 PM) Room air (10/03/23 3:15 PM) Blood pressure sites Arm, right (10/03/23 10:22 AM) Temperature Route Temporal (10/03/23 10:22 AM) Weight Obtained Via Standing scale (10/03/23 10:22 AM) Social History Social History Type Response Smoking Status Former smoker entered on: 06/01/14 Sex Note * Event Display: Hemodynamic Procedure Report Authored Date: [id number] * Estela Craig RN: PERFORM Event Display: Discharge/Transfer Note Hospital Authored Date: [id number] Nursing Discharge Note Entered On: 10/03/2023 17:06 EDT Performed On: 10/03/2023 16:20 EDT by Estela Craig RN Nursing Discharge Note 2 Discharge Time : 10/03/2023 16:20 EDT Discharge Level of Care at Discharge : Home/Assisted/Foster Care Patient Left Unit Via : Wheelchair Patient Accompanied Off Unit with : Responsible adult DC Instructions Provided & Signed by Pt : Yes Patient Understands D/C Instructions : Yes Patient Instructions Discharge Signed : Yes Discharge Comments : IV removed, dc education provided, R radial site c/d/i, no bleeding, oozing, hematoma., Did Pt have Specialty Bed or Wound Vac : No Estela Craig RN - 10/03/2023 17:05 EDT * Estela Craig RN: PERFORM Event Display: Patient Education/Instruction Authored Date: [id number] Inpatient Adult Discharge Instructions. [place] [id number] Name: INOCENCIA HARTMANN : 1955?? Visit: 10/03/2023 09:39?? Current Date: 10/03/2023 13:51 ?? Account: [id number]?? Inpatient Adult Discharge Instructions We would like to thank you for allowing us to assist you with your healthcare needs. The following includes patient education materials and information regarding your injury/illness. Our entire staffstrives to provide an excellent experience for our patients and their families. PLEASE ENSURE YOU FOLLOW-UP PER THE INSTRUCTIONS BELOW! ?? YOUR OPINION IS IMPORTANT TO US! Please complete the survey you may receive by mail or email. Your feedback will be used to make improvements to the healthcare experiences of our patients and their families. Surveys are administered by [employer] ?? If further treatment with your primary care physician or another doctor is recommended, it is important for you to keep the appointment. Call your primary care physician or return to the Emergency Department immediately if your condition worsens, fails to improve, or new symptoms develop. If you need to find a doctor, you can call [facility] Link for a referral at [phone] or toll free at [phone] or log in to [email or web address].. ?? [facility], in keeping with [facility] guidance, no longer requires face masks for staff, patientsor visitors in most situations. Similiar to time spent indoors at other locations, there is the chance that you were exposed to repiratory viruses during your time with us (such as flu or COVID-19). If you develop symptoms concerning for a viral respiratory infection, please seek testing (and treatment if indicated) from your medical provider or home test kit. ?? You can view and manage your care through the patient portal or by using a health care tessie of your choosing. [employer] is a website that allows you to securely view your medical information including your hospital discharge summary, office visit summaries, medications and follow-up visits. You can also request appointments, renew medications, and request access to your medical information using a health care tessie of your choosing, or just ask a question. You can enroll at [email or web address] or register during your next office visit. You have been discharged from [facility], Patient Care Unit: CARE??. If you have any questions regarding these instructions, including results of studies pending, afteryou leave, please call us and we will be happy to assist you 01/10. [facility] Nursing Unit Direct Phone Number, for 01/10 contact and results of studies pending CARE [address] [place] [address] Your Care Team Attending Physician Armando Moody MD?? Consulting Providers Armando Moody MD?? Discharging Providers Smita Blanchard MD Tests Performed Below is a partial list of the tests performed during your hospitalization. You may have had other tests and procedures not included in this list. Please discuss all test results with your provider. Basic Metabolic Panel CBC Type and Screen Basic Metabolic Panel?? CBC?? Type and Screen?? Primary Care Provider Marline Richard MD? Advance Directive Health Care Proxy on File No Discharge Vitals Temperature: 97.7 DegF Weight: 86.4 kg Pulse Rate: 73 bpm ?? Respiratory Rate:??14 br/min??Low ?? Systolic Blood Pressure:??140 mm Hg??High ?? Diastolic Blood Pressure:??50 mm Hg??Low ?? Oxygen Saturation: 98 % ?? Studies Pending All studies ordered during this hospital stay have been completed unless listed below. Please discuss all pending results with your provider listed above in these instructions. ?? No incomplete studies found?? What to do next Instructions From Your Doctor ?? Orders?? TR band removed, ??10/03/23 12:50:00 EDT?? Scheduled Follow-Up Appointments Saturday 3:00 PM EDT ?? With: Giovani DEAN, Osei Chandler Where: [facility] [address] [place] [address]- Status: Pending You Need to Schedule the Following Appointments Follow Up with??Marline Richard MD When:??Only if needed Where: ?? Follow Up with??Chad AHUJA, Elia R When:??Within 1 week: call to discuss follow up visit Where: ?? Discharge Medications INOCENCIA HARTMANN :1955 Visit Date:10/03/2023 Medications: Please continue your medications until treatment is completed or stopped by your provider. Medications not listed below should be discontinued. Discuss any questions related to medications with your provider. What How Much When Instructions Next Dose Unchanged Albuterol (Ventolin HFA 108 mcg/ inh inhalationaerosol with adapter) 1 puff(s) Inhalation Every 4 hours as needed for for wheezing resume as prescribed, per home schedule Unchanged Aspirin (aspirin 81 mg oral tablet) 1 tab(s) Oral Daily resume as prescribed, per home schedule Unchanged Atorvastatin (atorvastatin 80 mg oral tablet) 1 tab(s) Oral Daily resume as prescribed, per home schedule Unchanged Carvedilol (carvedilol 25 mg oral tablet) 1 tab(s) Oral Twice a day resume as prescribed, per home schedule Unchanged Cholecalciferol (Vitamin D3 50,000 intl units oral capsule) 1 capsule Oral Every week resume as prescribed, per home schedule Unchanged Ezetimibe (ezetimibe 10 mg oral tablet) 1 tab(s) Oral Daily resume as prescribed, per home schedule Unchanged Gabapentin (gabapentin 300 mg oral capsule) 1 capsule Oral Daily resume as prescribed, per home schedule Unchanged GlipiZIDE (glipiZIDE 10 mg oral tablet) 1 tab(s) Oral Twice a day resume as prescribed, per home schedule Unchanged hydrALAZINE (hydrALAZINE 50 mg oral tablet) 2 tab(s) Oral 3 times a day resume as prescribed, per home schedule Unchanged insulin degludec (Tresiba FlexTouch 100 units/ mL subcutaneous solution) See instructions INJECT 25 UNITS SUBCUTANEOUSLY EVERY DAY ?? resume as prescribed, per home schedule Unchanged Isosorbide Mononitrate (isosorbide mononitrate 60 mg oral tablet, extended release) 1 tab(s) Oral Daily in the morning resume as prescribed, per home schedule Unchanged NIFEdipine (NIFEdipine (Eqv-Procardia XL) 30 mg oral tablet, extended release) 1 tab(s) Oral Daily resume as prescribed, per home schedule Unchanged Omeprazole (omeprazole 40 mg oral enteric coated capsule) 1 capsule Oral Daily resume as prescribed, per home schedule Unchanged Sertraline (Zoloft 50 mg oral tablet) 1 tab(s) Oral Daily resume as prescribed, per home schedule Unchanged sitagliptin (Januvia 100 mg oral tablet) 100 Milligram Oral Daily resume as prescribed, per home schedule Unchanged Tamsulosin (tamsulosin 0.4 mg oral capsule) 1 capsule Oral Daily resume as prescribed, per home schedule Unchanged Trazodone (traZODone 50 mg oral tablet) 1 tab(s) Oral Daily at Bedtime resume as prescribed, per home schedule Prescription Given During Visit No new medications prescribed at time of discharge.?? Laboratory Results Below is a partial list of the most recent Laboratory test results done prior to this discharge. You may have had other tests and procedures not included in this list. Please discuss all test resultswith your provider. Basic Metabolic Panel (10/03/2023) ???Sodium - 141 mmol/L???Potassium - 4.8 mmol/L???Chloride - 101 mmol/L???Bicarbonate Level - 29 mmol/L???Anion Gap - 11???Glucose Level - 240 mg/dL???BUN - 45 mg/dL???Creatinine-Blood - 5.21 mg/dL???Estimated GFR Creatinine - 11 ML/MIN/1.73 M2???Calcium - 9.3 mg/dL CBC (10/03/2023) ???WBC - 8.5 k/mm3???RBC - 2.64 m/mm3???Hgb - 8.5 Gm/dL???Hct - 25.8 %???MCV - 97.7 femtoliters???MCH - 32.2 pg???MCHC - 32.9 g/dL???Platelet Count - 286 k/mm3???RDW-SD - 47.4 femtoliters???MPV - 9.9femtoliters???Nucleated RBC (Automated) - 0.0 #/100 WBC'S???Abs. NRBC - 0.0 k/mm3 Type and Screen (10/03/2023) ???Blood Type - O Positive???Antibody Screen - Negative You will be contacted within 72 hours with your results. Allergies (NKA means No Known Allergies) Remeron metFORMIN Problems Active Problems??(1) Obese class I?? Education Materials Below is the list of Educational Leaflet Providered with your Discharge Instructions. Web[employer] Ignite Patient Education - Procedural Sedation, Recovery (Adult)?? Web[employer] Ignite Patient Education - Surgery Radial Cath Approach Discharge Instructions?? Web[employer] Ignite Patient Education - Discharge Instructions for Cardiac Catheterization?? Valuables and Belongings I fully understand and agree that [facility] accepts no responsibility for all my personal property including clothing, toilet articles, radios, jewelry, dentures, hearing aids, rings, money, or any other property that is in my possession or is brought to me after admission. I understand certain valuables may be placed in a hospital safe for a short period of time. I understand that the hospital is not liable for loss or damage due to accident, fire, or other natural occurrence while said property is in the safe. I accept full responsibility for any personal property that I keep with me, and will not hold the hospital responsible in case of loss or disappearance. I acknowledge that i have been encouraged to send valuables and belongings home. ?? Review of Valuable and Belonging List: With patient Date for Pt to Sign Valuables/Belongings: 10/03/23 11:12:00 ?? Valuables & Belongings ?? Clothes Electronic devices Jewelry Monetary Items Personal devices Miscellaneous Medications (Valuables) Valuables at Bedside Pants, Shirt, Shoes, Undergarments Cell phone ? Glasses ? Valuables Sent Home ? Valuables Sent to Security ? Valuables Sent to Locker ? Other Discharge Information ? Pulmonary Rehab Status?? Pulmonary Rehab Discharge Status?? Respiratory Rate:??14 br/min??Low ? Common Emergency Awareness Tips IS IT A STROKE? Act FAST and Check for these signs: FACE Does the face look uneven? ARM Does one arm drift down? SPEECH Does their speech sound strange? TIME Call at any sign of stroke ?? Heart Attack Signs Chest discomfort: Most heart attacks involve discomfort in the center of the chest and lasts more than a few minutes, or goes away and comes back. It can feel like uncomfortable pressure, squeezing, fullness or pain. Discomfort in upper body: Symptoms can include pain or discomfort in one or both arms, back, neck, jaw or stomach. Shortness of breath: With or without discomfort. Other signs: Breaking out in a cold sweat, nausea, or lightheaded. Remember, MINUTES DO MATTER. If you experience any of these heart attack warning signs, call to get immediate medical attention! ?? Smoking can increase your chances of developing chronic health problems and can cause harmful effects to other family members in your house. If you smoke, you are strongly encouraged to quit. Please call [employer] Link at [phone] or [phone] ([phone]) or log in to [email or web address] for referrals to smoking cessation programs. ?? 933 Suicide & Crisis Lifeline is available 01/10 if you or someone you know needs to find a reason to keep living. By calling 444 you'll be connected to a skilled, trained counselor at a crisis center in your area. INPATIENT DISCHARGE INSTRUCTIONS SIGNATURE PAGE INOCENCIA HARTMANN Location:[facility] Registration Date and Time:10/03/2023 09:39 EDT Primary Care Physician: Jose Manuel AHUJA, Marline Ordoñez, Attending Physician: Fransisco AHUJA, [facility], I INOCENCIA HARTMANN, have received the above patient education materials/instructions and have verbalized understanding. If ambulance or transport services are being used I further acknowledge being given a choice of service. ?? If you need to contact me, please call me at this number: . Patient/Public Relations Player Name: Patient/Public Relations Player Signature: Relationship to Patient: Witness Name/Signature: Date: * Estela Craig RN: PERFORM Event Display: Patient Education Leaflets Authored Date: [id number] Procedural Sedation, Recovery (Adult) ?? [id number] Recuperaci??n despu??s de la sedaci??n para procedimientos (adultos) Le administraron medicamentos por v??a intravenosa para sedarlo orlando el procedimiento. Es posible que le hayan dado un analg??sico y otro para dormir. Quiz?? tenga efectos secundarios, brock n??useas, fatiga o inestabilidad orlando hasta 24??horas. Tambi??n puede sentirse mareado. Cuidados en el hogar Cuando llegue a chavarria casa, siga las indicaciones detalladas a continuaci??n: ??? Orlando las siguientes 8 o m??s horas, p??dean a un adulto de confianza que lo cuide. Esta persona debe asegurarse de que chavarria afecci??n no empeore, estar atenta a los problemas y mantenerlo a evangelina. ??? No ammy??alcohol orlando las pr??ximas 24 horas. ??? No conduzca, no opere maquinaria peligrosa ni tome decisiones importantes personales o de negocios??orlando las siguientes 24 horas. ??? Tenga especial cuidado al caminar y moverse, ya que puede tener m??s riesgo de caerse. ??? Siga las instrucciones que le dieron sobre las comidas y bebidas. ??? Aseg??rese de seguir todas las instrucciones de cuidados posteriores al procedimiento. Nota: El proveedor de atenci??n m??dica puede indicarle que no tome sugar??n medicamento por boca para el dolor o para dormir orlando las pr??ximas cuatro horas. Dichos medicamentos pueden reaccionar con los medicamentos que le administraron en el hospital. Podr??an causar bryan respuesta mucho m??s hayden que lo normal. ?? Atenci??n de seguimiento Programe bryan wander de seguimiento con el proveedor de atenci??n m??dica brock se le indique. ?? Cu??ndo debe buscar atenci??n m??dica P??dean a alguien que llame al proveedor de atenci??n m??dica o busque atenci??n m??dica de inmediato en cualquiera de los siguientes casos: ??? Somnolencia que empeora ??? Debilidad o mareos que empeoran ??? V??mitos persistentes ??? Habla con dificultad y los dem??s no pueden entenderlo ??? Dolorintenso o moises luego del procedimiento, que no se lizeth con los analg??sicos (en brant de que s e los hayan indicado) ??? Fiebre ??? Sarpullido nuevo ?? Cu??ndo llamar al 911 Pida que alguien llame al 911 si tiene alguno de estos s??ntomas: ??? Dificultad para respirar ??? Dificultad para tragar ??? Dolor de pecho ??? P??rdida del conocimiento o no pueden despertarlo ?? Last Reviewed Date: 2023 ?? [id number] The [employer]. Todos los derechos reservados. Esta informaci??n no pretende sustituir la atenci??n m??dica profesional. S??lo chavarria m??dico puede diagnosticar y tratar un problema de nanci. ?? * Estela Craig RN: PERFORM Event Display: Patient Education Leaflets Authored Date: [id number] Surgery Radial Cath Approach Discharge Instructions ?? 278 Radial Cath Approach Discharge Instructions ?? Activity Take it easy the rest of the day. Limit your activity on the affected side.?? Act as if your arm is broken for 24 hours. No lifting with affected arm for 24 hours. No pushing or pulling with the affected arm. Do not reach or lift with the affected arm. Do not place excessive pressure on the wrist. ?? Precautions Due to intravenous sedation: It is recommended that someone stay with you for the first night after your procedure. Do not drive or operate hazardous machinery for 24 hours. Do not make legal decisions for 24 hours. Avoid alcohol for 24 hours. Unless directed otherwise, keep yourself hydrated. ?? Dressing/Incision Care You may remove the dressing 24 hours after your procedure. Replace with band aid for an additional 24 hours. You may shower and cleanse the site with soap & water then pat dry. Avoid submersion of site in water x 5 days. Cover the with a clean band aid daily until site is healed. If the band aid becomes soiled, replacewith a clean new one. Do not apply any ointments, lotions, gels or powders to the puncture site. ?? When to contact your doctor If any of the following signs of infection occur: Fever greater than 100 degrees F Increased pain Drainage, redness or warmth at puncture site Tingling of the fingers and hand that last longer than 3 days Slight bubble of blood or bleeding from site: apply manual pressure and notify your doctor ?? Emergency situations: Bleeding from the site that will not stop: apply manual pressure and notify your doctor Profuse bleeding streaming from the puncture site: Apply manual pressure and notify your doctor immediately If your hand becomes bluish, cold to the touch, or painful, notify your doctor immediately or go toEmergency Department. For these emergent situations: If unable to contact your physician, call 911. ?? * Estela Craig RN: PERFORM Event Display: Patient Education Leaflets Authored Date: [id number] Discharge Instructions for Cardiac Catheterization ?? [address] Instrucciones de olya para el cateterismo card??aco El cateterismo card??aco es un procedimiento invasivo que se realiza para estudiar determinados problemas del coraz??n. Estos problemas pueden afectar a las cavidades del coraz??n, las v??lvulas y los vasos sangu??neos. Se inserta bryan c??nula delgada y flexible (cat??ter) en un vaso sangu??edelmira de la peewee o del brazo. El cat??ter se traslada al coraz??n. El proveedor de atenci??n m??dica puede estudiar el flujo de marcin, la presi??n arterial y el ox??sherri. Puede inyectar un l??quido de contraste en la marcin. El l??quido fluye hacia el coraz??n.??Luego, el proveedor puede whit im??genes radiogr??ficas del coraz??n. A menudo, se hace bryan angiograf??a coronaria brock parte del cateterismo card??aco. Se usa para evaluar las obstrucciones en las arterias que llevan marcin al coraz??n. Si se encuentra bryan obstrucci??n, el proveedor puede intentar abrir la arteria. Posiblemente coloque un stent. El proveedor hablar?? con usted sobre los resultados del procedimiento. Tristin todas las preguntas que tenga antes de irse. Esta hoja le ayudar?? a cuidarse en chavarria casa. Cuidados en el hogar ??? Pida a alg??n adulto responsable que lo lleve a chavarria casa despu??s del procedimiento. ??? No conduzca ni tome decisiones importantes orlando, al menos, 24??horas despu??s de recibir cualquier tipo de sedaci??n o anestesia.? Ammy entre seis y ocho vasos de agua en las siguientes 24??horas. Ballou ayuda a expulsar el medio de contraste del cuerpo. Llame al equipo de atenci??n m??dica si tiene alg??n cambio de color en la orina. ??? T??mese la temperatura a diario durantetres a laurel d??as. Si se siente fr??o y h??medo o si empieza a sudar, t??mese la temperatura de inmediato. Llame al equipo de atenci??n m??dica. ??? Solo tristin actividades livianas y f??ciles durantelos pr??ximos dos a merlene d??as. Pida ayuda con las tareas y los mandados mientras se recupera. Pidaa alguien lo lleve a jaguar compromisos. ??? No levante nada pesado hasta que el equipo de atenci??n m??dica le diga que es seguro hacerlo. ??? Preg??ntele a chavarria equipo de atenci??n m??dica cu??ndo puedevolver a trabajar. A menos que chavarria trabajo implique levantar objetos, es posible que pueda retomar jaguar actividades normales en unos dos d??as. ??? Admin??strese los medicamentos donna brock se lo hayan indicado. No omita ninguna dosis. ??? Revise las incisiones todos los d??as para detectar se??ales deinfecci??n. Por ejemplo, enrojecimiento, hinchaz??n y secreci??n de l??quidos. Es normal que tenga un moret??n o rbyan protuberancia demetrio??os en el lugar donde se insert?? el cat??ter. No es normal que un moret??n se agrande. Informe al equipo de atenci??n m??dica al respecto. Si observa que se acumula marcin en la incisi??n, llame al equipo de atenci??n m??dica. Vaya a bryan shemar de emergencias si tiene un sangrado que no puede controlar proveniente de la coral de la arteria. Ballou es incluso m??s importante si ashley medicamentos que dificultan la coagulaci??n de la marcin. Por ejemplo, aspirina, clopidogrel, warfarina, apixaban y rivaroxab??n. ??? Lleve bryan alimentaci??n saludable. Aseg??rese de que sea baja en grasas, stalin y colesterol. P??dean a chavarria equipo de atenci??n m??dica que le d?? informaci??n sobre la alimentaci??n que debe elegir. ??? Deje de fumar. Inscr??base en un programa para dejar de fumar. O p??dean ayuda al equipo de atenci??n m??dica. ??? Tristin ejercicios seg??n le indique el equipo de atenci??n m??dica. Es posible que le recomienden iniciar un programa de rehabilitaci??n card??марина. La rehabilitaci??n card??марина es un programa de ejercicios donde el personal de atenci??n m??dica capacitado controla chavarria progreso y el esfuerzo que hace chavarria coraz??n mientras se ejercita. Preg??ntele a chavarria equipo c??mo inscribirse. ??? Evite nadar o whit ba??os de girma hasta que el equipo de atenci??n m??dica lo autorice. Puede ducharse el d??a despu??s del procedimiento. Mantenga el punto de inserci??n limpio y seco. Ballou vandana que la incisi??n se moje y se infecte hasta que la piely la arteria hayan sanado. ??? Siga todas las dem??s instrucciones poscuidado que le d?? el equipo.? Atenci??n de seguimiento ??? Programe bryan wander de seguimiento seg??n le indiquen. Es com??n tener bryan wander de seguimiento de dos a cuatro semanas despu??s de bryan angioplastia o de bryan colocaci??n de stent coronario. ??? Realice bryan visita anual. Permite asegurarse de que sigue marlin y de que no tiene s??ntomas nuevos. ??? No espere a la wander de seguimiento si los medicamentos no funcionan o si tiene s??ntomas relacionados con el coraz??n. Llame a chavarria proveedor de atenci??n m??dica. ?? Cu??ndo recibir atenci??n m??dica Llame de inmediato a chavarria proveedor de atenci??n m??dica en cualquiera de los siguientes casos: ??? Dolor intenso o aumento del dolor, entumecimiento, sensaci??n de fr??o o color azulado en la pierna oel brazo donde estuvo el cat??ter ??? Fiebre de 100.4?F??( 38?C) o superior, o seg??n le haya indicado el proveedor de atenci??n m??dica ??? Signos de infecci??n en el lugar de la incisi??n. Estos incluyen enrojecimiento, hinchaz??n, supuraci??n o calor. ??? Sangrado, moretones o gran hinchaz??n donde se insert?? el cat??ter ??? Marcin en la orina ??? Heces negras o de consistencia similara la rojelio (alquitranada) ??? Cualquier tipo de sangrado inusual ??? Ritmo card??aco irregular, muy lento o acelerado ??? Mareos ?? Cu??ndo llamar al?? 911 Llame al?? 911 si presenta cualquiera de estos s??ntomas: ??? Dolor de pecho ??? Falta de aire ??? Debilidad o entumecimiento repentinos en los brazos, en las piernas o en la nnamdi o problemas para hablar ??? El lugar de la punci??n se hincha muy r??pido ???Sangrado en el lugar de la punci??n que no disminuye con presi??n firme ?? Last Reviewed Date: 2021 ?? [id number] [employer]. Todos los derechos reservados. Esta informaci??n no pretende sustituir la atenci??n m??dica profesional. S??lo chavarria m??dico puede diagnosticar y tratar un problema de nanic. ?? EKG study * Event Display: ECG 12-Lead Authored Date: Please click on pdf link to open report * Event Display: ECG 12-Lead Authored Date: Ventricular Rate: 74 BPM Atrial Rate: 74 BPM P-R Interval: 264 ms QRS Duration: 94 ms Q-T Interval: 406 ms QTC Calculation(Bazett): 450 ms P Babcock: 32 degrees R Babcock: 29 degrees T Babcock: 40 degrees Sinus rhythm with 1st degree A-V block Otherwise normal ECG When compared with ECG of 13-OCT-2003 15:12, GA interval has increased QT has lengthened Confirmed by Serge Doyle ([id number]) on 10/03/2023 11:08:14 AM [place]: Serge Doyle Cardiology * Event Display: Cardiology Office Note, Non- Authored Date: Patient Care team information Care Team Personnel Name: Marline Richard MD Position: [facility] Physician - Primary Care Member Role: PCP Address: Address: [address], [address]st [place] [address]- Name: Mario Modi MD Position: [facility] Renal MD Member Role: [employer] Address: Address: [address] [place] [address] [facility] [place] [address]- Care Team Related Persons Name: LATOSHA ROBERTS Name: NATASHA HARTMANN Address: home [address] [place] [id number] Name: DAXA HARTMANN Address: home [facility]
[2023-10-08 20:09] VITALS: BP 151/92; PULSE 60; RESP 13; TEMP 36.4; O2SAT 96
--- NOTE | 2023-10-08 21:14 | ED_ITS ---
HPI - Recheck/Abnormal Lab/Rx General Chief Complaint: Recheck/Abnormal Lab/Rx Stated Complaint: From urgent care, low hemoglobin Time Seen by Provider: 10/08/23 20:13 History of Present Illness HPI narrative: Patient is a 68-year-old male sent in from urgent care for having a low blood pressure. Patient did not have any symptoms. No chest pain or diaphoresis. No fever no chills no coughing or congestion. No abdominal pain. Normally gets dialysis on Saturday and Saturday. Patient got dialysis yesterday no issues. Also had some chest pain earlier today was on the left chest while resting. There is no specific trigger not associated with any shortness of breath there is no diaphoresis it resolved on its own. Patient has no symptoms. He was also told that he had a low hemoglobin. The hemoglobin was 7.5. Baseline is 8 about 2 weeks ago. Patient denies any bloody stool. Denies any vomiting. Denies any bleeding anywhere. Related Data Home Medications ?Medication ?Instructions ?Recorded ?Confirmed sertraline 50 mg tablet 50 mg PO DAILY 04/27/21 09/26/23 albuterol sulfate 90 mcg/actuation 2 puff inhalation Q4H PRN Wheezing 01/13/23 09/26/23 aerosol inhaler (Ventolin HFA) aspirin 81 mg chewable tablet 1 tab PO DAILY 01/13/23 09/26/23 atorvastatin 80 mg tablet 80 mg PO BEDTIME 01/13/23 09/26/23 docusate sodium 100 mg capsule 100 mg PO BEDTIME 01/13/23 09/26/23 ezetimibe 10 mg tablet 10 mg PO DAILY 01/13/23 09/26/23 flash glucose scanning reader 01/13/23 01/21/23 (InotremStyle Daniel 2 [place]) flash glucose sensor (FreeStyle 01/13/23 01/21/23 Daniel 2 Sensor kit) fluticasone propionate 50 2 spray intranasal DAILY PRN 01/13/23 09/26/23 mcg/actuation nasal Congestion spray,suspension gabapentin 300 mg capsule 300 mg PO DAILY 01/13/23 09/26/23 hydralazine 50 mg tablet 100 mg PO TID 01/13/23 09/26/23 tamsulosin 0.4 mg capsule 0.4 mg PO BEDTIME 01/13/23 09/26/23 cholecalciferol (vitamin D3) 1,250 50,000 unit PO BEVERLY 01/21/23 09/26/23 mcg (50,000 unit) capsule icosapent ethyl 1 gram capsule 1 g PO BEDTIME 09/26/23 09/26/23 insulin degludec 100 unit/mL (3 25 unit subcut DAILY 09/26/23 09/26/23 mL) subcutaneous pen (Tresiba FlexTouch U-100 insulin) trazodone 100 mg tablet 100 mg PO BEDTIME PRN insomnia 09/26/23 09/26/23 Previous Rx's ?Medication ?Instructions ?Recorded carvedilol 25 mg tablet 25 mg PO BID #60 tabs 01/15/23 nifedipine 30 mg tablet,extended 90 mg PO DAILY #30 tabs 02/01/23 release 24 hr omeprazole 40 mg capsule,delayed 40 mg PO DAILY #30 caps 02/14/23 release isosorbide mononitrate 30 mg 90 mg PO DAILY 90 days #270 tabs 09/28/23 tablet,extended release 24 hr Allergies Allergy/AdvReac Type Severity Reaction Status Date / Time metformin AdvReac Unknown Verified 10/08/23 17:53 Review of Systems 2 Review of Systems: Positive chest pain earlier Yes all other systems are reviewed and are negative [facility] Past Medical History Attestation statement: The following information was validated with the patient. Medical History Fluid overload Anemia in ESRD (end-stage renal disease) Anemia PAD (peripheral artery disease) Acute kidney injury superimposed on CKD Hypertension Type 2 diabetes mellitus ESRD (end stage renal disease) CKD (chronic kidney disease) stage 3, GFR 30-59 ml/min Renal artery stenosis Anemia Uncontrolled hypertension Erectile dysfunction (HFpEF) heart failure with preserved ejection fraction Osteomyelitis CKD stage 3 due to type 2 diabetes mellitus LIVE (iron deficiency anemia) Hyperlipidemia associated with type 2 diabetes mellitus Kidney disease High cholesterol HTN (hypertension) Diabetes Surgical History Status post transmetatarsal amputation of left foot Hx of amputation History of amputation of right forefoot H/O shoulder surgery Family History Family History Other No family history of coronary artery disease Social History Social History Household Members: None Housing: Apartment Do you presently have visiting nurse or other home services: Yes (P[employer]I[facility] CARE SPECIALIST ONLY) Alcohol intake: current Alcohol intake frequency: holidays/special occasions only Alcohol type: beer Comment: previously medicated with IV morphine Patient Tobacco Use Status: Never used Tobacco Tobacco use type: Cigarette Smoked in Last 30 Days: No Second Hand Smoke Exposure: No Use of substances other than those prescribed or required for medical reasons: No Substance Use Type: Crack/Cocaine Advance Directives: Yes Advance Directives on File: Yes Advance Directives Date on File: 02/02/22 service: No Current occupational status: retired Physical Exam 2 Vital Signs: Vital Signs: Last Vital Signs Temp 97.6 F 10/08/23 20:09 Pulse 60 10/08/23 20:09 Resp 13 10/08/23 20:09 BP 151/92 H 10/08/23 20:09 Pulse Ox 96 10/08/23 20:09 O2 Del Method Room Air 10/08/23 20:09 BMI result Body Mass Index 30.9 Appearance: Alert. Oriented X3. No acute distress. Eyes: Pupils equal, round and reactive to light. ENT: Pharynx normal. Neck: Normal inspection. Neck supple. No lymph nodes noted. No crepitus CVS: Normal heart rate and rhythm. Pulses normal. Normal S1 and S2 Respiratory: No respiratory distress. Breath sounds normal. No Wheezing. No rales Abdomen: Soft and nontender. No rigidity. No distention. good BS x4 Skin: Skin warm and dry. Normal skin color. Normal skin turgor. Extremities: No lower extremity edema. Neurovascular intact to all extremities. No Lacerations. No Rash Neuro: Oriented X 3. No motor deficit. No sensory deficit. Moving all extermities. No slurred speech Medical Decision Making Medical Decision Making MDM Narrative: Patient was sent in for low hemoglobin. On recheck a hemoglobin patient is actually 8.9. This is approximately baseline. Patient's electrolytes shows elevated BUN and creatinine at is consistent with end-stage renal disease. His troponin was actually negative at 17.2. My interpretation of patient's EKG showed a sinus rhythm heart rate is 70 HI QRS QTC normal no acute ST segment elevation there is no change from previous EKG. Patient's blood pressure on recheck in the emergency department is actually 126/45 151/92. Will recheck a 2nd set of cardiac enzymes. Monitor bit longer. Two sets of enzymes are normal. Patient's hemoglobin is actually okay. EKG is not changed. No distress. Will discharge patient home. Rectal exam was heme negative mucousy stool. Differential Diagnosis Differential Diagnoses: The differential diagnosis associated with the presentation includes Anemia, GI bleed, ACS Admission/Observation Consideration of admission/observation: Escalation of care including admission/observation considered Lab Data MDM Lab Attestation statement: I reviewed the patient's lab results. 10/08/23 18:42 10/08/23 18:42 Labs: Lab Results 10/08/23 10/08/23 10/08/23 Range/Units 18:42 21:34 21:44 WBC 8.9 (4.8-10.8) X10*3/uL RBC 2.69 L (4.60-5.80) X10*6/uL Hgb 8.9 L (14.0-18.0) g/dl Hct 25.8 L (42.0-52.0) % MCV 95.9 (80.0-98.0) fL MCH 33.1 H (27.0-33.0) pg MCHC 34.5 (31.0-36.0) g/dl RDW 14.3 (11.0-16.0) % Plt Count 304 D (160-400) X10*3/uL MPV 9.7 (9.4-12.4) fL Immature Gran % (Auto) 0.3 (0.0-0.4) % Neut % (Auto) 67.4 (45-73) % Lymph % (Auto) 19.5 L (20-40) % Bond % (Auto) 10.4 (2-11) % Eos % (Auto) 1.7 (0-4) % Baso % (Auto) 0.7 (0-2) % Lymph # (Auto) 1.7 (1.2-4.9) X10*3/uL Bond # (Auto) 0.9 (0.1-1.2) X10*3/uL Eos # (Auto) 0.2 (0.0-0.4) X10*3/uL Baso # (Auto) 0.1 (0.0-0.2) X10*3/uL Abs Immat Gran (auto) 0.03 (0.00-0.03) X10*3/uL Absolute Neuts (auto) 6.0 (2.0-8.3) x10*3/uL Absolute Nucleated RBC 0.000 (0.0-0.012) X10*3/uL Nucleated RBC % (auto) 0.0 (0.0-0.2) /100WBC Sodium 139 (135-145) mmol/L Potassium 4.0 (3.3-5.1) mmol/L Chloride 100 (96-108) mmol/L Carbon Dioxide 25 (22-29) mmol/L Anion Gap 18 (12-20) BUN 46 H (9-16) mg/dL Creatinine 5.78 H* (0.5-1.4) mg/dL Estim Creat Clear Calc 12.2 Estimated GFR 10 Random Glucose 112 (60-115) mg/dL Calcium 8.8 (8.4-10.2) mg/dL Magnesium 1.8 (1.6-2.6) mg/dL Iron 73 (45-160) mcg/dL TIBC 203 L (228-428) mcg/dL % Saturation 36 (15-50) % Unsat Iron Binding 130 ug/dL Total Bilirubin 0.4 (0.0-1.0) mg/dL Direct Bilirubin 0.1 (0.0-0.5) mg/dL AST 25 (5-37) U/L ALT 20 (0-40) U/L Alkaline Phosphatase 125 H (39-117) U/L Troponin I High Sens 17.2 D 16.4 (<3.5-35.0) ng/L Total Protein 7.1 (6.5-8.0) g/dL Albumin 3.6 (3.5-5.0) g/dL Stool Occult Blood NEGATIVE (NEGATIVE) Blood Type O Positive Antibody Screen NEGATIVE External Record Review External record reviewed: Office record Chronic Conditions Patient?s care impacted by: Diabetes and Hypertension End-stage renal disease Social Determinants Patient?s care significantly limited by Social Determinants of Health including: Other Social Determinant of Health Discharge Plan Discharge Clinical Impression: End stage chronic kidney disease Patient Disposition: Home, Self-Care Instructions: End Stage Kidney Disease (ED) Additional Instructions: Please go to dialysis tomorrow Prescriptions: No Action atorvastatin 80 mg tablet 80 mg PO BEDTIME tamsulosin 0.4 mg capsule 0.4 mg PO BEDTIME docusate sodium 100 mg capsule 100 mg PO BEDTIME gabapentin 300 mg capsule 300 mg PO DAILY aspirin 81 mg tablet,chewable 1 tab PO DAILY hydralazine 50 mg tablet 100 mg PO TID albuterol sulfate [Ventolin HFA] 90 mcg/actuation HFA aerosol inhaler 2 puff INHALATION Q4H PRN (Reason: Wheezing) fluticasone propionate 50 mcg/actuation spray,suspension 2 spray intranasal DAILY PRN (Reason: Congestion) ezetimibe 10 mg tablet 10 mg PO DAILY (DME) FreeStyle Daniel 2 Sensor Kit MISCELLANEOUS Q2W (DME) FreeStyle Daniel 2 [place] Misc MISCELLANEOUS QAM carvedilol 25 mg Tablet 25 mg PO BID Qty: 60 0RF Protocol: Hold for SBP/HR < HOLD for SBP < : 90 HOLD for HR < : 60 cholecalciferol (vitamin D3) 1,250 mcg (50,000 unit) capsule 50,000 unit PO BEVERLY nifedipine 30 mg Tablet Extended Release 24hr 90 mg PO DAILY Qty: 30 1RF Protocol: Hold for SBP< HOLD for SBP < : 90 trazodone 100 mg tablet 100 mg PO BEDTIME PRN (Reason: insomnia) icosapent ethyl 1 gram capsule 1 g PO BEDTIME insulin degludec [Tresiba FlexTouch U-100] 100 unit/mL (3 mL) insulin pen 25 unit subcut DAILY isosorbide mononitrate 30 mg Tablet Extended Release 24 Hr 90 mg PO DAILY 90 Days Qty: 270 0RF Protocol: Hold for SBP< HOLD for SBP < : 90 omeprazole 40 mg capsule,delayed release(DR/EC) 40 mg PO DAILY Qty: 30 0RF sertraline 50 mg tablet 50 mg PO DAILY Referrals: Marline Richard MD [Primary Care Provider] - 10/10/23 Elia Bonilla MD [Physician] - 10/10/23 Print Language: Urdu
[2023-10-08 21:43] LABS: OBS1 NEGATIVE (NEGATIVE)
[2023-10-08 21:44] LABS: OBS Int Ctl Valid YES
[2023-10-08 22:14] LABS: Troponin-I High Sensitivity 16.4 ng/L (<3.5-35.0)
[2023-10-08 22:57] VITALS: BP 151/92; PULSE 60; RESP 13; TEMP 36.4; O2SAT 96
== END 2023-10-08 22:58 | disposition home or self-care (01) ==
PROVIDERS: Physician Assistant; Emergency Provider Emergency Medicine Emergency Medical Services; PCP General Practice
DX: I12.0 Hypertensive chronic kidney disease with stage 5 chronic kidney disease or end stage renal disease (principal); E11.22 Type 2 diabetes mellitus with diabetic chronic kidney disease; R07.89 Other chest pain; N18.6 End stage renal disease; R19.5 Other fecal abnormalities; Z79.4 Long term (current) use of insulin; Z79.899 Other long term (current) drug therapy
CPT/HCPCS: 36415; 71045; 80048; 80076; 82272; 83540; 83735; 84484; 85025; 86850; 86900; 86901; 93005; 99283; 99284

== ENCOUNTER → 2023-10-08 17:56 | Outpatient (BNV) | payer OTHER, SELFPAY | PROVIDERS: Emergency Provider Emergency Medicine Emergency Medical Services; PCP General Practice; Visit Provider Internal Medicine Cardiovascular Disease | DX: R07.9 Chest pain, unspecified (principal) | CPT/HCPCS: 93010 ==

== ENCOUNTER 2023-10-15 08:21 | Outpatient (REF) | payer OTHER, SELFPAY ==
--- NOTE | ~2023-10-15 | US_ITS ---
EXAMINATION: ULTRASOUND RENAL WITH DOPPLER CLINICAL INFORMATION: Peripheral arterial disease and heart failure. COMPARISON: CT abdomen and pelvis dated 01/21/2023; renal ultrasound with Doppler dated 09/29/2022. TECHNIQUE: Real-time grayscale, color Doppler, and duplex Doppler evaluation of the kidneys and renal vasculature was performed. Imaging is technically limited due to overlapping bowel gas and difficulty of patient compliance with breath holding maneuvers. FINDINGS: RENAL MEASUREMENTS: Right: 11.8 x 6.0 x 4.7 cm (Sag x AP x TV) Left: 10.4 x 5.2 x 5.0 cm (Sag x AP x TV) The renal parenchyma appears normal. No hydronephrosis or nephrolithiasis. DOPPLER INTERROGATION: Aorta: The mid abdominal aorta is poorly visualized. Right Main Renal Artery: Proximal: Not visualized cm/sec Mid: 128 cm/sec Distal: 131 cm/sec Left Main Renal Artery: Proximal: 110 cm/sec Mid: 155 cm/sec Distal: 58 cm/sec Renal-Aortic Ratio (RAR): Right: Not calculated. Left: Not calculated. There are elevated right renal upper pole and lower pole resistive indices 0.88 and 0.83 respectively. There is an elevated left renal upper pole resistive index of 0.81. Bilateral upper pole, interpolar and lower pole arterial pulse doppler waveforms are unremarkable, with uniformly rapid upstrokes and no parvus et tardus configuration. US/US renal doppler IMPRESSION: Significantly technically limited examination, with no hemodynamically significant renal artery stenosis presently seen. If a clinical question of renal artery stenosis persists and clinically warranted, further evaluation with CTA or MRA could be considered. Electronically signed by: Jesús Almeida MD 11/03/2023 05:02 PM EDT
--- NOTE | ~2023-10-15 | US_ITS ---
EXAMINATION: US RETROPERITONEAL COMPLETE (RENAL) CLINICAL INFORMATION: Peripheral vascular disease and heart failure. COMPARISON: None available. TECHNIQUE: Real-time imaging of the kidneys and bladder. FINDINGS: RIGHT KIDNEY: 11.8 x 5.0 x 4.7 cm (SAG x AP x TRV). The kidney is normal in size, contour, and echogenicity. Renal cortical thickness is normal. No calculi or focal parenchymal lesions. No hydronephrosis. LEFT KIDNEY: 10.4 x 5.2 x 5.0 cm (SAG x AP x TRV). The kidney is normal in size, contour, and echogenicity. Renal cortical thickness is normal. No calculi or focal parenchymal lesions. No hydronephrosis. US/US renal BI IMPRESSION: Unremarkable examination. Electronically signed by: Jesús Almeida MD 11/07/2023 10:45 AM EDT
== END 2023-10-15 08:22 | disposition home or self-care (01) ==
LOC: HO.US 08:21
PROVIDERS: PCP General Practice; Visit Provider Internal Medicine Cardiovascular Disease
DX: I73.9 Peripheral vascular disease, unspecified (principal); I50.9 Heart failure, unspecified
CPT/HCPCS: 76775; 93975

== ENCOUNTER 2023-10-22 12:50 | Emergency (ER) | payer OTHER, SELFPAY ==
[2023-10-22] VITALS (12 sets, daily range): BP systolic 79–124; BP diastolic 30–62; PULSE 42–49; RESP 12–45; TEMP 36.4–36.6; O2SAT 97; BMI 27.1
--- NOTE | 2023-10-22 12:52 | ED.DIZZY ---
HPI - Dizziness General Chief Complaint: Dizziness Stated Complaint: Low BP/Dizzy Time Seen by Provider: 10/22/23 14:17 Source: patient Mode of arrival: ambulatory History of Present Illness HPI Narrative: This is a 68 years old male with history of chronic renal failure on hemodyalisis presented to the emergency department with a chief complaint of dizziness chest discomfort the symptom started this morning he had a full dialysis yesterday. No reported fever no reported vomiting or diarrhea. MD elicited complaint: dizziness and lightheadedness Onset (ago): hour(s) (6) Timing: gradual onset Severity: moderate History of similar symptoms: No Exacerbating factors: nothing Relieving factors: nothing Related Data Home Medications ?Medication ?Instructions ?Recorded ?Confirmed sertraline 50 mg tablet 50 mg PO DAILY 04/27/21 09/26/23 albuterol sulfate 90 mcg/actuation 2 puff inhalation Q4H PRN Wheezing 01/13/23 09/26/23 aerosol inhaler (Ventolin HFA) aspirin 81 mg chewable tablet 1 tab PO DAILY 01/13/23 09/26/23 atorvastatin 80 mg tablet 80 mg PO BEDTIME 01/13/23 09/26/23 docusate sodium 100 mg capsule 100 mg PO BEDTIME 01/13/23 09/26/23 ezetimibe 10 mg tablet 10 mg PO DAILY 01/13/23 09/26/23 flash glucose scanning reader 01/13/23 01/21/23 (ZenDayStyle Daniel 2 Pierce) flash glucose sensor (FreeStyle 01/13/23 01/21/23 Daniel 2 Sensor kit) fluticasone propionate 50 2 spray intranasal DAILY PRN 01/13/23 09/26/23 mcg/actuation nasal Congestion spray,suspension gabapentin 300 mg capsule 300 mg PO DAILY 01/13/23 09/26/23 hydralazine 50 mg tablet 100 mg PO TID 01/13/23 09/26/23 tamsulosin 0.4 mg capsule 0.4 mg PO BEDTIME 01/13/23 09/26/23 cholecalciferol (vitamin D3) 1,250 50,000 unit PO BEVERLY 01/21/23 09/26/23 mcg (50,000 unit) capsule icosapent ethyl 1 gram capsule 1 g PO BEDTIME 09/26/23 09/26/23 insulin degludec 100 unit/mL (3 25 unit subcut DAILY 09/26/23 09/26/23 mL) subcutaneous pen (Tresiba FlexTouch U-100 insulin) trazodone 100 mg tablet 100 mg PO BEDTIME PRN insomnia 09/26/23 09/26/23 Previous Rx's ?Medication ?Instructions ?Recorded carvedilol 25 mg tablet 25 mg PO BID #60 tabs 01/15/23 nifedipine 30 mg tablet,extended 90 mg PO DAILY #30 tabs 02/01/23 release 24 hr omeprazole 40 mg capsule,delayed 40 mg PO DAILY #30 caps 02/14/23 release isosorbide mononitrate 30 mg 90 mg PO DAILY 90 days #270 tabs 09/28/23 tablet,extended release 24 hr Allergies Allergy/AdvReac Type Severity Reaction Status Date / Time metformin AdvReac Unknown Verified 10/22/23 12:58 Review of Systems Constitutional: Constitutional: Reports no additional constitutional complaints ENT: Reports system reviewed and no additional complaints, except as documented Cardiovascular: Cardiovascular: Reports chest pain PMFSH Past Medical History Attestation statement: The following information was validated with the patient. Medical History Fluid overload Anemia in ESRD (end-stage renal disease) Anemia PAD (peripheral artery disease) Acute kidney injury superimposed on CKD Hypertension Type 2 diabetes mellitus ESRD (end stage renal disease) CKD (chronic kidney disease) stage 3, GFR 30-59 ml/min Renal artery stenosis Anemia Uncontrolled hypertension Erectile dysfunction (HFpEF) heart failure with preserved ejection fraction Osteomyelitis CKD stage 3 due to type 2 diabetes mellitus LIVE (iron deficiency anemia) Hyperlipidemia associated with type 2 diabetes mellitus Kidney disease High cholesterol HTN (hypertension) Diabetes Surgical History Status post transmetatarsal amputation of left foot Hx of amputation History of amputation of right forefoot H/O shoulder surgery Family History Family History Other No family history of coronary artery disease Social History Social History Household Members: None Housing: Apartment Do you presently have visiting nurse or other home services: Yes (FACILITY ATTENDANT ONLY) Alcohol intake: current Alcohol intake frequency: holidays/special occasions only Alcohol type: beer Comment: previously medicated with IV morphine Patient Tobacco Use Status: Never used Tobacco Tobacco use type: Cigarette Second Hand Smoke Exposure: No Substance Use Type: Crack/Cocaine Advance Directives: Yes Advance Directives on File: Yes Advance Directives Date on File: 02/02/22 service: No Current occupational status: retired Physical Exam Vital Signs: Vital Signs: Last Vital Signs Temp 97.5 F 10/22/23 19:16 Pulse 47 L 10/22/23 19:16 Resp 13 10/22/23 19:16 BP 124/62 10/22/23 19:16 Pulse Ox 97 10/22/23 19:16 O2 Del Method Room Air 10/22/23 19:16 O2 Flow Rate 0 10/22/23 19:16 BMI result Body Mass Index 27.1 Patient is awake and alert no distress Const: General: cooperative and healthy appearing Nutritional Appearance: well nourished Orientation/consciousness: patient oriented x3 Limitations: no limitations HEENT: Head: Yes normal to inspection General nose exam: Normal external nose present Face and sinus: Yes normal facial exam Neck: Neck: Yes normal visual inspection Chest: Chest palpation & inspection: normal inspection of the chest Resp: Effort & Inspection: normal respiratory effort Auscultation: clear to auscultation bilaterally Cardio: Jugular venous distension: no JVD Rate: regular rate Rhythm: regular rhythm GI: Inspection: Yes normal to inspection Palpation (GI): Soft to palpation, not firm and nontender Auscultation: normal bowel sounds Skin: General skin exam: no rashes or lesions noted and elasticity normal Lesions: no lesions Neuro: General: patient oriented x3 Course Course Course Narrative: This is a Rapid Medical Examination (RME) performed by Russ Foy PA-C in triage. Full HPI, ROS, assessment and treatment plan per primary provider in the Main ED. 68 yo male with history of ESRD on HD M/W/F, DM, hx left BKA, PAD who presents to the ER for evaluation of dizziness and hypotension at home. BP 90/50 at home with blurred vision, weakness and dizziness. He is on meds for high BP at home which he took this morning. Had full HD session yesterday and BP was reportedly normal during that and he had a full session. No fevers or signs/sxs of infection per family. BP 90/37 w/ MAP 54. Plan: lab workup, EKG, to go back to treatment room now Reevaluation(s) Reevaluation #1: I re-examined the patient at this time his blood pressure is much better he is feeling good he has no complaint will check tropi #2,anticipate disharge,BP much better Reevaluation #2: Remained asymptomatic troponin x2 negative requesting discharge Time: 18:35 Medications Administered Discontinued Medications Generic Name Dose Route Start Last Admin Trade Name Freq PRN Reason Stop Dose Admin Sodium Chloride 1,000 mls @ 999 mls/hr 10/22/23 16:30 10/22/23 17:20 Ns IVCONT 10/22/23 17:30 0 mls/hr .Q1H1M ANNABELLA Infusion Medical Decision Making Medical Decision Making [facility] Narrative: Patient presented to the ED dizziness found to be hypotensive in triage with a blood pressure 79/30 will check labs administer IV fluids realizing that he is a dialysis patient. Differential Diagnosis Differential Diagnoses: The differential diagnosis associated with the presentation includes Volume depletion/vasovagal episode/sepsis Admission/Observation Consideration of admission/observation: Escalation of care including admission/observation considered Lab Data [facility] Lab Attestation statement: I reviewed the patient's lab results. 10/22/23 13:33 10/22/23 13:33 Labs: Lab Results 10/22/23 10/22/23 Range/Units 13:33 17:18 WBC 9.0 (4.8-10.8) X10*3/uL RBC 2.81 L (4.60-5.80) X10*6/uL Hgb 9.1 L (14.0-18.0) g/dl Hct 27.9 L (42.0-52.0) % MCV 99.3 H (80.0-98.0) fL MCH 32.4 (27.0-33.0) pg MCHC 32.6 (31.0-36.0) g/dl RDW 13.9 (11.0-16.0) % Plt Count 206 D (160-400) X10*3/uL MPV 10.5 (9.4-12.4) fL Immature Gran % (Auto) 0.3 (0.0-0.4) % Neut % (Auto) 68.2 (45-73) % Lymph % (Auto) 17.6 L (20-40) % [place] % (Auto) 11.3 H (2-11) % Eos % (Auto) 1.9 (0-4) % Baso % (Auto) 0.7 (0-2) % Lymph # (Auto) 1.6 (1.2-4.9) X10*3/uL [place] # (Auto) 1.0 (0.1-1.2) X10*3/uL Eos # (Auto) 0.2 (0.0-0.4) X10*3/uL Baso # (Auto) 0.1 (0.0-0.2) X10*3/uL Abs Immat Gran (auto) 0.03 (0.00-0.03) X10*3/uL Absolute Neuts (auto) 6.1 (2.0-8.3) x10*3/uL Absolute Nucleated RBC 0.000 (0.0-0.012) X10*3/uL Nucleated RBC % (auto) 0.0 (0.0-0.2) /100WBC Sodium 139 (135-145) mmol/L Potassium 5.6 H D (3.3-5.1) mmol/L Chloride 102 (96-108) mmol/L Carbon Dioxide 28 (22-29) mmol/L Anion Gap 15 (12-20) BUN 42 H (9-16) mg/dL Creatinine 5.52 H* (0.5-1.4) mg/dL Estim Creat Clear Calc 12.3 Estimated GFR 10 Random Glucose 170 H (60-115) mg/dL Lactic Acid 1.6 (0.5-2.0) mmol/L Calcium 9.2 (8.4-10.2) mg/dL Magnesium 1.8 (1.6-2.6) mg/dL Total Bilirubin 0.4 (0.0-1.0) mg/dL Direct Bilirubin 0.1 (0.0-0.5) mg/dL AST 31 (5-37) U/L ALT 18 (0-40) U/L Alkaline Phosphatase 115 (39-117) U/L Troponin I High Sens 11.0 10.9 (<3.5-35.0) ng/L Total Protein 6.9 (6.5-8.0) g/dL Albumin 3.4 L (3.5-5.0) g/dL External Record Review External record reviewed: Inpatient record Critical Care Time Critical Care Time Critical Care Time: Yes Total Critical Care Time: 60 Attestation: Hypotension requiring IV fluids Discharge Plan Discharge Clinical Impression: Dizziness Hypotension Qualifiers: Hypotension type: unspecified hypotension type Qualified Code(s): I95.9 - Hypotension, unspecified Patient Disposition: Home, Self-Care Instructions: Hypotension (ED), Dizziness (ED) Prescriptions: No Action atorvastatin 80 mg tablet 80 mg PO BEDTIME tamsulosin 0.4 mg capsule 0.4 mg PO BEDTIME docusate sodium 100 mg capsule 100 mg PO BEDTIME gabapentin 300 mg capsule 300 mg PO DAILY aspirin 81 mg tablet,chewable 1 tab PO DAILY hydralazine 50 mg tablet 100 mg PO TID albuterol sulfate [Ventolin HFA] 90 mcg/actuation HFA aerosol inhaler 2 puff INHALATION Q4H PRN (Reason: Wheezing) fluticasone propionate 50 mcg/actuation spray,suspension 2 spray intranasal DAILY PRN (Reason: Congestion) ezetimibe 10 mg tablet 10 mg PO DAILY (DME) FreeStyle Daniel 2 Sensor Kit MISCELLANEOUS Q2W (DME) FreeStyle Daniel 2 Pierce Misc MISCELLANEOUS QAM carvedilol 25 mg Tablet 25 mg PO BID Qty: 60 0RF Protocol: Hold for SBP/HR < HOLD for SBP < : 90 HOLD for HR < : 60 cholecalciferol (vitamin D3) 1,250 mcg (50,000 unit) capsule 50,000 unit PO BEVERLY nifedipine 30 mg Tablet Extended Release 24hr 90 mg PO DAILY Qty: 30 1RF Protocol: Hold for SBP< HOLD for SBP < : 90 trazodone 100 mg tablet 100 mg PO BEDTIME PRN (Reason: insomnia) icosapent ethyl 1 gram capsule 1 g PO BEDTIME insulin degludec [Tresiba FlexTouch U-100] 100 unit/mL (3 mL) insulin pen 25 unit subcut DAILY isosorbide mononitrate 30 mg Tablet Extended Release 24 Hr 90 mg PO DAILY 90 Days Qty: 270 0RF Protocol: Hold for SBP< HOLD for SBP < : 90 omeprazole 40 mg capsule,delayed release(DR/EC) 40 mg PO DAILY Qty: 30 0RF sertraline 50 mg tablet 50 mg PO DAILY Referrals: Marline Richard MD [Primary Care Provider] - 2 days Interventions: ED Discharge Assessment Last Done: 10/22/23 19:16 Discharge Date/Time: 10/22/23 19:17 Print Language: Bahraini
--- NOTE | 2023-10-22 12:55 | ECG_ITS ---
Test Reason : WEAKNESS Blood Pressure : / mmHG Vent. Rate : 046 BPM Atrial Rate : 046 BPM P-R Int : 264 ms QRS Dur : 092 ms QT Int : 470 ms P-R-T Axes : 048 011 034 degrees QTc Int : 411 ms Sinus bradycardia with 1st degree A-V block Otherwise normal ECG When compared with ECG of 08-OCT-2023 18:29, No significant change was found Referred By: Margie Foy Electronically Signed By:ALONA FOOTE
[2023-10-22 13:46] LABS: MANUAL DIFF FLAG NO
[2023-10-22 13:49] LABS: Basophils Absolute Auto 0.1 X10*3/uL (0.0-0.2); Basophils Percent Auto 0.7 % (0-2); Eosinophils Absolute Auto 0.2 X10*3/uL (0.0-0.4); Eosinophils Percent Auto 1.9 % (0-4); Hematocrit 27.9 % (42.0-52.0); Hemoglobin 9.1 g/dl (14.0-18.0); Imm Gran Abs Auto 0.03 X10*3/uL (0.00-0.03); Imm Gran Pct Auto 0.3 % (0.0-0.4); Lymphocytes Absolute Auto 1.6 X10*3/uL (1.2-4.9); Lymphocytes Percent Auto 17.6 % (20-40); Mean Corpuscular HGB Conc 32.6 g/dl (31.0-36.0); Mean Corpuscular Hemoglobin 32.4 pg (27.0-33.0); Mean Corpuscular Volume 99.3 fL (80.0-98.0); Mean Platelet Volume 10.5 fL (9.4-12.4); Monocytes Percent Auto 11.3 % (2-11); Neutrophils Absolute Auto 6.1 x10*3/uL (2.0-8.3); Neutrophils Percent Auto 68.2 % (45-73); Platelet Count 206 X10*3/uL (160-400); Red Blood Count 2.81 X10*6/uL (4.60-5.80); Red Cell Distribution Width 13.9 % (11.0-16.0)
[2023-10-22 13:59] LABS: Lactic Acid 1.6 mmol/L (0.5-2.0)
--- NOTE | 2023-10-22 14:23 | MHC.EDTECH ---
this pct went in to obtain orthostatic vitals but was unable to obtain standing portion do to patient being an amputee.
[2023-10-22 14:24] LABS: Alanine Aminotransferase 18 U/L (0-40); Albumin Level 3.4 g/dL (3.5-5.0); Alkaline Phosphatase 115 U/L (39-117); Anion Gap 15 (12-20); Aspartate Amino Transferase 31 U/L (5-37); Bilirubin Direct 0.1 mg/dL (0.0-0.5); Bilirubin Total 0.4 mg/dL (0.0-1.0); Blood Urea Nitrogen 42 mg/dL (9-16); Calcium 9.2 mg/dL (8.4-10.2); Carbon Dioxide 28 mmol/L (22-29); Chloride 102 mmol/L (96-108); Creatinine Clr Calc Pharmacy 12.3; Estimated Glomerular Filt Rate 10; Glucose Random 170 mg/dL (60-115); Magnesium 1.8 mg/dL (1.6-2.6); Potassium 5.6 mmol/L (3.3-5.1); Sodium 139 mmol/L (135-145); Total Protein 6.9 g/dL (6.5-8.0)
[2023-10-22] MEDS: 0.9 % Sodium Chloride 1,000 ML 999 ML IVCONT (16:22)
[2023-10-22 17:55] LABS: Troponin-I High Sensitivity 10.9 ng/L (<3.5-35.0)
== END 2023-10-22 19:17 | disposition home or self-care (01) ==
PROVIDERS: Physician Assistant; Emergency Provider Emergency Medicine; PCP General Practice
DX: R42 Dizziness and giddiness (principal); I95.9 Hypotension, unspecified; E11.22 Type 2 diabetes mellitus with diabetic chronic kidney disease; I13.0 Hypertensive heart and chronic kidney disease with heart failure and stage 1 through stage 4 chronic kidney disease, or unspecified chronic kidney disease; N18.30 Chronic kidney disease, stage 3 unspecified; I50.9 Heart failure, unspecified; E78.00 Pure hypercholesterolemia, unspecified; Z79.02 Long term (current) use of antithrombotics/antiplatelets; Z79.82 Long term (current) use of aspirin; Z79.899 Other long term (current) drug therapy
CPT/HCPCS: 36415; 80048; 80076; 83605; 83735; 84484; 85025; 87040; 93005; 96360; 99285

== ENCOUNTER → 2023-10-22 12:55 | Outpatient (BNV) | payer OTHER, SELFPAY | PROVIDERS: Emergency Provider Emergency Medicine; PCP General Practice; Visit Provider Internal Medicine | DX: R00.1 Bradycardia, unspecified (principal); I44.0 Atrioventricular block, first degree | CPT/HCPCS: 93010 ==

== ENCOUNTER 2023-10-31 14:40 | Outpatient (AMB) | payer OTHER, SELFPAY ==
--- NOTE | 2023-10-31 14:57 | A.OFFVIS_ITS ---
Vital Signs 10/31/23 14:59 Height 5 ft 8 in Weight 191 lb 12.835 oz BMI 29.2 BP 130/62 Blood Pressure Location Rt brachial Position Sitting Pulse 75 Pulse Source Pulse Oximeter Intake Visit Reasons: adealida fisher follow up chest pain/left arm pain Intake Note: pt state that he is doing fine after been discharge from [facility] Pharmacologist Required: No Accompanied by: Self / Same As Patient Allergies metformin Adverse Reaction (Verified 10/22/23 12:58) Unknown Medication List - Last Reconciled 10/31/23 by Elia Bonilla MD albuterol sulfate 90 mcg/actuation (Ventolin HFA) 2 puffs inhalation Q4H PRN aspirin 1 tab PO DAILY atorvastatin 80 mg PO BEDTIME carvedilol 25 mg See Protocol PO BID cholecalciferol (vitamin D3) 50,000 units PO BEVERLY docusate sodium 100 mg PO BEDTIME ezetimibe 10 mg PO DAILY flash glucose scanning reader (LumiGrowStyle Daniel 2 [place]) flash glucose sensor (FreeStyle Daniel 2 Sensor kit) fluticasone propionate 50 mcg/actuation 2 sprays intranasal DAILY PRN gabapentin 300 mg PO DAILY hydralazine 100 mg PO TID icosapent ethyl 1 g PO BEDTIME insulin degludec (Tresiba FlexTouch U-100 insulin) 25 units subcut DAILY isosorbide mononitrate ER 90 mg See Protocol PO DAILY 90 days nifedipine ER 90 mg See Protocol PO DAILY omeprazole 40 mg PO DAILY sertraline 50 mg PO DAILY tamsulosin 0.4 mg PO BEDTIME trazodone 100 mg PO BEDTIME PRN HPI Comments Details: Kingsley comes for follow-up after recent hospitalization with sudden-onset pulmonary edema despite doing his dialysis on regular basis only missing on the day of admission because he was referred from dialysis center because of shortness of breath and was noted to have significantly hypertensive admission and troponin elevation. He subsequently underwent cardiac catheterization as ischemic heart disease was high likelihood but showed OM branch vessel disease as well as distal RCA disease with no significant triple-vessel disease to explain his sudden pulmonary edema. His renal ultrasound duplex still pending for results. He continues to have elevated blood pressure at home in between dialysis session including on dialysis days when he presents, blood pressure ranging up to 160 systolic almost every time. He overall otherwise he is feeling well at this point time. He has not had any recurrent significant shortness of breath or orthopnea or PND. No significant leg edema. No significant anginal symptoms. Continues to pursue dialysis regularly. [facility] Medical History (Updated 11/01/23 @ 14:34 by Elia Bonilla MD) Uncontrolled hypertension CAD (coronary artery disease) Fluid overload Anemia in ESRD (end-stage renal disease) Anemia PAD (peripheral artery disease) Acute kidney injury superimposed on CKD Hypertension Type 2 diabetes mellitus ESRD (end stage renal disease) CKD (chronic kidney disease) stage 3, GFR 30-59 ml/min Renal artery stenosis Anemia Erectile dysfunction (HFpEF) heart failure with preserved ejection fraction Osteomyelitis CKD stage 3 due to type 2 diabetes mellitus LIVE (iron deficiency anemia) Hyperlipidemia associated with type 2 diabetes mellitus Kidney disease High cholesterol HTN (hypertension) Diabetes Surgical History Status post transmetatarsal amputation of left foot Hx of amputation History of amputation of right forefoot H/O shoulder surgery Family History Other No family history of coronary artery disease Social History Household Members: None Housing: Apartment Do you presently have visiting nurse or other home services: Yes (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 CIRCUIT SCREEN WATCHER ONLY) Alcohol intake: current Alcohol intake frequency: holidays/special occasions only Alcohol type: beer Comment: previously medicated with IV morphine Patient Tobacco Use Status: Never used Tobacco Tobacco use type: Cigarette Second Hand Smoke Exposure: No Substance Use Type: Crack/Cocaine Advance Directives Date on File: 02/02/22 service: No Current occupational status: retired Review of Systems Const Denies chills, Denies fatigue, Denies fever(s), Denies frequent falls, Denies weakness, Denies weight gain and Denies weight loss ENT Denies dizziness Card Denies chest pain, Denies leg edema, Denies lightheadedness, Denies palpitations, Denies dyspnea and Denies dyspnea on exertion Resp Denies cough, Denies dyspnea and Denies dyspnea on exertion GI Denies hematochezia Musc Denies abnormal gait, Denies muscle weakness, Denies numbness, Denies radiating pain into limb and Denies tingling Neuro Denies abnormal gait, Denies dizziness, Denies frequent falls, Denies numbness, Denies tingling and Denies weakness Endo Denies fatigue and Denies palpitations Physical Exam Vital Signs: Last Vital Signs Pulse 75 10/31/23 14:59 BP 130/62 10/31/23 14:59 BMI result Body Mass Index 29.2 Const General: cooperative, comfortable, no acute distress, alert and awake Nutritional Appearance: overweight Orientation/consciousness: patient oriented x3 Neck Neck: Yes trachea midline, Yes supple and Yes no JVD Resp Effort & Inspection: normal respiratory effort Auscultation: clear to auscultation bilaterally and diminished lung sounds Cardio Jugular venous distension: no JVD Palpation: normal PMI Rate: regular rate Rhythm: regular rhythm Heart sounds: S1 normal heart sound present, S2 normal heart sound present, no click, no gallops, no murmurs and no rubs GI Auscultation: normal bowel sounds Skin General skin exam: no rashes or lesions noted Neuro General: patient oriented x3 and no focal motor deficits Extrem General: Yes no clubbing, cyanosis or edema Assessment & Plan Assessment & Plan (1) CHF (congestive heart failure): Code(s): I50.9 - Heart failure, unspecified Category: Medical Plan: Patient with recent hospitalization with sudden-onset pulmonary edema in the setting of end-stage renal disease with significantly elevated blood pressure. He does have coronary artery disease although not critical coronary artery disease that would explain his sudden ischemic heart failure although possible. Treatment will be medical from that perspective. Treatment would be directed more towards control his blood pressure. Importance of regular dialysis sessions was discussed. He said he is very compliant with it. Avoiding salt loading was also discussed. Continue aggressively to follow his dry weight. Clinically today appears to be euvolemic and well compensated. (2) CAD (coronary artery disease): Code(s): I25.10 - Atherosclerotic heart disease of [place] coronary artery without angina pectoris Category: Medical Plan: CAD with branch vessel disease with OM2 branch vessel disease as well as this will RCA disease. No paroxysmal coronary artery disease at this point time including no left main disease. Recommend strong medical therapy including aggressive blood pressure control, see below. Continue aspirin therapy. Continue high-intensity statin therapy and ezetimibe therapy with target goal LDL less than 70 mg/dL. Continue aggressive diabetes management goal hemoglobin A1c less than 7%. Encouraged to increase activity level as tolerated. Continue current isosorbide as well as carvedilol therapy as an antianginal therapy. (3) Uncontrolled hypertension: Code(s): I10 - Essential (primary) hypertension Category: Medical Plan: Unfortunately he continues to have uncontrolled high blood pressure. Discussed with him that this needs to be controlled. For now will increase nifedipine long-acting to 120 mg daily. This was discussed with him. Advised to monitor blood pressure closely. Target goal blood pressure less than 130/84. This may. Difficult target. If blood pressure remains continuously elevated, should add minoxidil 2.5 mg b.i.d. to his regimen. Limited medical options due to elevated potassium levels. He is otherwise on maximal carvedilol, isosorbide, hydralazine therapy at this point in time. Need to pursue renal duplex which is still pending to be read. Will follow up in the clinic in 6 months time, sooner p.r.n.. Thank you for allowing me to partake in his care Medications: New nifedipine ER 120 mg (2 x 60 mg) PO DAILY 60 tabs 5RF Discontinued nifedipine ER Discontinued Reason: Doctor's Order 90 mg See Protocol PO DAILY 30 tabs 1RF Coding Level of Care Code Est Pt Level 4 (89412) Diagnoses CHF (congestive heart failure) I50.9 CAD (coronary artery disease) I25.10 Uncontrolled hypertension I10
[2023-10-31 14:59] VITALS: BP 130/62; PULSE 75; BMI 29.2
== END 2023-10-31 15:30 | disposition home or self-care (01) ==
PROVIDERS: PCP General Practice; Visit Provider Internal Medicine Cardiovascular Disease
DX: I50.9 Heart failure, unspecified (principal); I25.10 Atherosclerotic heart disease of native coronary artery without angina pectoris; I10 Essential (primary) hypertension
CPT/HCPCS: 99214

== ENCOUNTER → 2023-10-31 14:40 | Outpatient (BNVA) | payer OTHER, SELFPAY | PROVIDERS: PCP General Practice; Visit Provider Internal Medicine Cardiovascular Disease | DX: I11.0 Hypertensive heart disease with heart failure (principal); I50.9 Heart failure, unspecified; I25.10 Atherosclerotic heart disease of native coronary artery without angina pectoris; R07.9 Chest pain, unspecified; J81.1 Chronic pulmonary edema; Z99.2 Dependence on renal dialysis | CPT/HCPCS: 99212 ==

== ENCOUNTER 2023-11-05 09:58 | Outpatient (REF) | payer OTHER, SELFPAY | END 2023-11-05 09:59 | disposition home or self-care (01) | LOC: HO.US 09:58 | PROVIDERS: PCP General Practice; Visit Provider Internal Medicine Cardiovascular Disease | DX: Z13.89 Encounter for screening for other disorder (principal) ==

== ENCOUNTER 2023-11-27 14:24 | Outpatient (REF) | payer OTHER, SELFPAY ==
--- NOTE | ~2023-11-27 | US_ITS ---
EXAMINATION: US NONINVASIVE ASSESSMENT OF THE RIGHT LOWER EXTREMITY WITH ARTERIAL DUPLEX AND ANKLE BRACHIAL INDICES (ABIS) CLINICAL INFORMATION: Peripheral vascular disease. History of left lower extremity below-knee amputation COMPARISON: TECHNIQUE: Duplex Doppler techniques with waveform analysis and measurement of velocities in the common femoral, profunda femoris, superficial femoral, popliteal and tibial arteries were performed. In addition, ankle pulse volume recordings, ankle pressure measurements and ankle brachial indices were obtained of the right lower extremity arterial system. The study was performed only at rest. FINDINGS: NONINVASIVE ASSESSMENT OF THE ARTERIES OF RIGHT LOWER EXTREMITIES WITH ABIs: RIGHT LEG: Ankle-brachial index: 1.42 Ankle PVR: Dampened LES Reference: 0.9 - 1.4 = normal - no significant arterial disease 0.7 - 0.89 = mild peripheral arterial disease 0.51 - 0.69 = moderate peripheral arterial disease 0.50 = severe peripheral arterial disease RIGHT LOWER EXTREMITY DUPLEX ULTRASOUND: Common femoral artery: 136 cm/s. Diastolic flow reversal: Biphasic Profunda femoris artery: 459 cm/s. Diastolic flow reversal: Biphasic, heavily calcified plaque Superficial femoral artery (proximal): 185 cm/s. Diastolic flow reversal: Biphasic Superficial femoral artery (mid): 246 cm/s. Diastolic flow reversal: Biphasic Superficial femoral artery (distal): 223 cm/s. Diastolic flow reversal: Biphasic Popliteal artery: 126 cm/s Diastolic flow reversal: Biphasic Posterior tibial artery: 36 cm/s in the proximal segment with occlusion in the mid to distal segments Peroneal artery: 86 cm/s Phasicity: Monophasic Anterior tibial artery: 46 cm/s Phasicity: Monophasic US/US arterial duplex LE RT IMPRESSION: 1. Supranormal ankle brachial index due to noncompressible vessels. 2. Heavily calcified plaque in the profunda femoral artery with elevated velocities consistent with high-grade stenosis. 3. Elevated velocities in the mid and distal superficial femoral artery consistent with moderate stenosis. 4. Occlusion of the mid to distal posterior tibial artery with monophasic flow in the anterior tibial and peroneal arteries. Electronically signed by: Raman Alexander MD 12/03/2023 02:54 PM EDT Workstation: [id number]
--- NOTE | ~2023-11-27 | US_ITS ---
EXAMINATION: US NONINVASIVE ASSESSMENT OF THE RIGHT LOWER EXTREMITY WITH ARTERIAL DUPLEX AND ANKLE BRACHIAL INDICES (ABIS) CLINICAL INFORMATION: Peripheral vascular disease. History of left lower extremity below-knee amputation COMPARISON: TECHNIQUE: Duplex Doppler techniques with waveform analysis and measurement of velocities in the common femoral, profunda femoris, superficial femoral, popliteal and tibial arteries were performed. In addition, ankle pulse volume recordings, ankle pressure measurements and ankle brachial indices were obtained of the right lower extremity arterial system. The study was performed only at rest. FINDINGS: NONINVASIVE ASSESSMENT OF THE ARTERIES OF RIGHT LOWER EXTREMITIES WITH ABIs: RIGHT LEG: Ankle-brachial index: 1.42 Ankle PVR: Dampened LES Reference: 0.9 - 1.4 = normal - no significant arterial disease 0.7 - 0.89 = mild peripheral arterial disease 0.51 - 0.69 = moderate peripheral arterial disease 0.50 = severe peripheral arterial disease RIGHT LOWER EXTREMITY DUPLEX ULTRASOUND: Common femoral artery: 136 cm/s. Diastolic flow reversal: Biphasic Profunda femoris artery: 459 cm/s. Diastolic flow reversal: Biphasic, heavily calcified plaque Superficial femoral artery (proximal): 185 cm/s. Diastolic flow reversal: Biphasic Superficial femoral artery (mid): 246 cm/s. Diastolic flow reversal: Biphasic Superficial femoral artery (distal): 223 cm/s. Diastolic flow reversal: Biphasic Popliteal artery: 126 cm/s Diastolic flow reversal: Biphasic Posterior tibial artery: 36 cm/s in the proximal segment with occlusion in the mid to distal segments Peroneal artery: 86 cm/s Phasicity: Monophasic Anterior tibial artery: 46 cm/s Phasicity: Monophasic US/US LES complete IMPRESSION: 1. Supranormal ankle brachial index due to noncompressible vessels. 2. Heavily calcified plaque in the profunda femoral artery with elevated velocities consistent with high-grade stenosis. 3. Elevated velocities in the mid and distal superficial femoral artery consistent with moderate stenosis. 4. Occlusion of the mid to distal posterior tibial artery with monophasic flow in the anterior tibial and peroneal arteries. Electronically signed by: Raman Alexander MD 12/03/2023 02:54 PM EDT Workstation: [id number]
== END 2023-11-27 14:25 | disposition home or self-care (01) ==
LOC: HO.US 14:24
PROVIDERS: PCP General Practice; Visit Provider Surgery Vascular Surgery
DX: I70.201 Unspecified atherosclerosis of native arteries of extremities, right leg (principal)
CPT/HCPCS: 93923; 93926

== ENCOUNTER 2023-12-17 08:59 | Outpatient (AMB) | payer OTHER, SELFPAY ==
--- NOTE | 2023-12-17 09:05 | MHC.OFFVIS ---
Intake Visit Reasons: Follow Up Arterial US 11/26 Intake Note: Patient presents for follow up arterial US. No complaints. Allergies metformin Adverse Reaction (Verified 12/17/23 09:07) Unknown HPI HPI Follow Up Arterial US 11/26: Details: Very pleasant 68-year-old gentleman presents for routine follow-up regarding peripheral vascular disease. He has undergone left BKA. Appears to be doing relatively well. No other interval issues. He now presents for follow-up with arterial ultrasound. [facility] Medical History Uncontrolled hypertension CAD (coronary artery disease) Fluid overload Anemia in ESRD (end-stage renal disease) Anemia PAD (peripheral artery disease) Acute kidney injury superimposed on CKD Hypertension Type 2 diabetes mellitus ESRD (end stage renal disease) CKD (chronic kidney disease) stage 3, GFR 30-59 ml/min Renal artery stenosis Anemia Erectile dysfunction (HFpEF) heart failure with preserved ejection fraction Osteomyelitis CKD stage 3 due to type 2 diabetes mellitus LIVE (iron deficiency anemia) Hyperlipidemia associated with type 2 diabetes mellitus Kidney disease High cholesterol HTN (hypertension) Diabetes Surgical History Status post transmetatarsal amputation of left foot Hx of amputation History of amputation of right forefoot H/O shoulder surgery Family History Other No family history of coronary artery disease Social History Household Members: None Housing: Apartment Do you presently have visiting nurse or other home services: Yes (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) Alcohol intake: current Alcohol intake frequency: holidays/special occasions only Alcohol type: beer Comment: previously medicated with IV morphine Patient Tobacco Use Status: Never used Tobacco Tobacco use type: Cigarette Second Hand Smoke Exposure: No Substance Use Type: Crack/Cocaine Advance Directives Date on File: 02/02/22 service: No Current occupational status: retired Review of Systems Const All systems reviewed & are unremarkable except as noted in HPI and below Reports no additional complaints ENT Reports Normal hearing present Card Denies chest pain, Denies chest pain at rest, Denies chest pain with activity and Denies pedal edema Resp Denies cough GI Denies abdominal pain Musc Denies abnormal gait, Denies muscle cramps and Denies radiating pain into limb Skin/Breast Denies skin ulcer and Denies wounds Neuro Reports Normal hearing present and Denies abnormal gait Psych Reports no additional complaints Physical Exam Const General: cooperative, healthy appearing and comfortable Orientation/consciousness: oriented to person, oriented to place and oriented to time HEENT Head: Yes normal to inspection Neck Neck: Yes normal visual inspection Carotids: no bruits Chest Chest palpation & inspection: normal inspection of the chest Resp Effort & Inspection: normal respiratory effort and able to speak in complete sentences Auscultation: clear to auscultation bilaterally, no crackles, no rales, no rhonchi and no wheezes Cardio Rate: regular rate Rhythm: regular rhythm Heart sounds: S1 normal heart sound present and S2 normal heart sound present Bruits: no carotid bruits Peripheral pulses: Peripheral pulses 2+ throughout GI Inspection: Yes normal to inspection Skin Wounds: amputation site (Left BKA well-healed) Hair: normal Neuro General: oriented to person, oriented to place and oriented to time Cranial nerves: Yes CN's II-XII intact bilaterally and Yes Normal hearing present Cognition (Neuro): normal cognition Motor exam (neuro): 5/5 motor strength present throughout Extrem Other: venous exam: No significant superficial varicosities or spider telangiectasias, minimal edema General: No clubbing, No cyanosis and No edema Psych Appearance: grossly normal Mental Status: mental status grossly normal Speech and movement: Normal speech and movement present Results Reviewed Results Reviewed: Arterial testing dated 11/27/2023 demonstrates LES of 1.4 which is artifactually elevated. There is concern of mid to distal SFA disease. Assessment & Plan Assessment & Plan (1) PAD (peripheral artery disease): Comment: 01/09/2022 - left femoral endarterectomy 01/09/2022 - diagnostic angiogram 01/25/2022 left great toe amputation 02/06/2022 - left transmetatarsal amputation 03/26/2022 - left BKA Code(s): I73.9 - Peripheral vascular disease, unspecified Category: Medical Plan: In short amputation appears to be doing relatively well. Right lower extremity arterial testing appears to be within normal limits. Does have some SFA disease but at the current time it does appear stable. Will plan for 6 month arterial surveillance follow-up. Should there be any interval issues happy to see him back sooner. Thank you for allowing us to participate in his care. If there are any questions or concerns please do not hesitate to contact us. Please note a longitudinal relationship has been created with the patient and we have been following and surveillance this chronic condition. Orders: Orders US arterial duplex LE RT 6 Months I73.9 - Peripheral vascular disease, unspecified Coding Level of Care Code Est Pt Level 4 (63163) Complex EM visit Add On G2211 Diagnoses PAD (peripheral artery disease) I73.9
== END 2023-12-17 09:22 | disposition home or self-care (01) ==
PROVIDERS: PCP General Practice; Visit Provider Surgery Vascular Surgery
DX: I73.9 Peripheral vascular disease, unspecified (principal)
CPT/HCPCS: 99214; G2211

== ENCOUNTER → 2023-12-17 08:59 | Outpatient (BNVA) | payer OTHER, SELFPAY | PROVIDERS: PCP General Practice; Visit Provider Surgery Vascular Surgery | DX: I73.9 Peripheral vascular disease, unspecified (principal) | CPT/HCPCS: 99212 ==

== ENCOUNTER 2023-12-18 09:58 | Outpatient (AMB) | payer OTHER, SELFPAY ==
--- NOTE | 2023-12-18 10:07 | MHC.OFFVIS ---
Intake Visit Reasons: Erectitle Dysfunction Intake Note: Patient is Present for Follow Up Erectile Dys Urology Medication:None Antibiotic Allergies: None Blood Thinners: Aspirin Last Visit patient had Edex Injection Accompanied by: Self / Same As Patient Allergies metformin Adverse Reaction (Verified 12/18/23 10:10) Unknown HPI Comments Details: Kingsley is a pleasant male. He is a patient of Dr. Mccullough. He is seen for the following urologic conditions - erectile dysfunction Yearly follow-up Previously Good response to injectables but expensive Interested in penile pump Demonstration provided Information for ordering provided Six-month follow-up Erectile dysfunction in setting of diabetes Progressive Insulin-dependent diabetic since 2021 Diabetic since 1999 - microvascular complications with nonhealing also lower extremity, diabetic foot in infection Former cigarette smoker Baseline labs - 12/01 - P 0.8 Good response to TriMix with 45 units in 2022 [facility] Medical History Uncontrolled hypertension CAD (coronary artery disease) Fluid overload Anemia in ESRD (end-stage renal disease) Anemia PAD (peripheral artery disease) Acute kidney injury superimposed on CKD Hypertension Type 2 diabetes mellitus ESRD (end stage renal disease) CKD (chronic kidney disease) stage 3, GFR 30-59 ml/min Renal artery stenosis Anemia Erectile dysfunction (HFpEF) heart failure with preserved ejection fraction Osteomyelitis CKD stage 3 due to type 2 diabetes mellitus LIVE (iron deficiency anemia) Hyperlipidemia associated with type 2 diabetes mellitus Kidney disease High cholesterol HTN (hypertension) Diabetes Surgical History Status post transmetatarsal amputation of left foot Hx of amputation History of amputation of right forefoot H/O shoulder surgery Family History Other No family history of coronary artery disease Social History Household Members: None Housing: Apartment Do you presently have visiting nurse or other home services: Yes (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) Alcohol intake: current Alcohol intake frequency: holidays/special occasions only Alcohol type: beer Comment: previously medicated with IV morphine Patient Tobacco Use Status: Never used Tobacco Tobacco use type: Cigarette Second Hand Smoke Exposure: No Substance Use Type: Crack/Cocaine Advance Directives Date on File: 02/02/22 service: No Current occupational status: retired Review of Systems Const Denies chills and Denies fever(s) Card Reports no additional complaints and Denies syncope Resp Denies cough GI Denies abdominal pain and Denies heartburn Reports as per HPI and Denies change in libido Neuro Denies syncope Psych Denies change in libido Endo Denies change in libido Physical Exam Const General: cooperative, healthy appearing, comfortable and no acute distress Orientation/consciousness: patient oriented x3 HEENT Face and sinus: Yes normal facial exam Mouth: moist mucous membranes Neck Neck: Yes normal visual inspection, Yes full ROM and Yes trachea midline Chest Chest palpation & inspection: normal inspection of the chest Resp Effort & Inspection: normal respiratory effort, able to speak in complete sentences and no respiratory distress GI Inspection: Yes normal to inspection Back/Spine/Pelvis Cervical Spine: normal cervical lordosis Thoracic/Lumbar Spine: thoracic and lumbar spine normal to inspection Skin General skin exam: no rashes or lesions noted Neuro General: patient oriented x3, gait normal, tone normal and moves all extremities Extrem General: Yes normal to inspection and Yes capillary refill normal Assessment & Plan Assessment & Plan (1) Erectile dysfunction associated with type 2 diabetes mellitus: Code(s): E11.69 - Type 2 diabetes mellitus with other specified complication; N52.1 - Erectile dysfunction due to diseases classified elsewhere Category: Medical (2) Benign prostatic hyperplasia: Code(s): N40.0 - Benign prostatic hyperplasia without lower urinary tract symptoms Category: Medical Qualifiers: Lower urinary tract symptom presence: symptoms present Lower urinary tract symptom detail: post-void dribbling Qualified Code(s): N40.1 - Benign prostatic hyperplasia with lower urinary tract symptoms; N39.43 - Post-void dribbling Plan Six-month follow-up Information for penile pump Patient Instructions: Imaging studies, laboratory and physical exam results were discussed and reviewed in detail. No major barriers to patient understanding were identified. An opportunity to ask questions regarding the treatment plan was provided. All questions were answered. The patient expressed understanding and agreement with the above treatment plan. The patient is aware they should contact our office by phone for worsening of their current condition or the appearance of new urologic symptoms. Compliance is encouraged with any medications and followup testing that is ordered. It is a privilege to participate in the urologic care of your patient. If you have any questions or concerns regarding treatment for the above conditions, or other urologic issues, please do not hesitate to contact me. The office telephone contact is [phone]. This note is constructed using voice recognition software. While every effort has been made to ensure accuracy chemistry quality control technician errors may have been included. Yours sincerely, Dr Edil Montano MD, [facility] - Urology Providers of Expert, Compassionate Care for the Genitourinary System Coding Level of Care Code Est Pt Level 4 (91195) Diagnoses Erectile dysfunction associated with type 2 diabetes mellitus E11.69; N52.1 Benign prostatic hyperplasia with post-void dribbling N40.1; N39.43 Lower urinary tract symptom presence: symptoms present Lower urinary tract symptom detail: post-void dribbling
== END 2023-12-18 10:38 | disposition home or self-care (01) ==
PROVIDERS: PCP General Practice; Visit Provider Urology
DX: E11.69 Type 2 diabetes mellitus with other specified complication (principal); N52.1 Erectile dysfunction due to diseases classified elsewhere; N40.1 Benign prostatic hyperplasia with lower urinary tract symptoms; N39.43 Post-void dribbling
CPT/HCPCS: 99214

== ENCOUNTER → 2023-12-18 09:58 | Outpatient (BNVA) | payer OTHER, SELFPAY | PROVIDERS: PCP General Practice; Visit Provider Urology | DX: N40.1 Benign prostatic hyperplasia with lower urinary tract symptoms (principal); N13.8 Other obstructive and reflux uropathy; E11.69 Type 2 diabetes mellitus with other specified complication; N52.1 Erectile dysfunction due to diseases classified elsewhere; N39.43 Post-void dribbling | CPT/HCPCS: 99212 ==

== ENCOUNTER 2024-03-09 09:17 | Outpatient (AMB) | payer OTHER, SELFPAY ==
--- NOTE | 2024-03-09 09:18 | A.OFFVIS_ITS ---
Vital Signs 03/09/24 09:24 Height 5 ft 8 in Weight 192 lb BMI 29.2 BP 132/72 Blood Pressure Location Rt brachial Position Sitting Pulse 72 Intake Visit Reasons: abnormal CT Scan, fluid in belly Intake Note: Patient referred by Dr. Richard for abnormal findings on Abd/pelvis CT. Patient c/o: reports no longer pain on Lt side abdomen. Abd/pelvis CT: [facility] 01-22-2024. Bridal Sales Consultant Required: No Accompanied by: Self / Same As Patient Allergies metformin Adverse Reaction (Verified 03/09/24 09:19) Unknown HPI Comments Details: Patient presents here for evaluation of left mid abdominal pain. He is had this a few weeks ago. He does not recall any associated nausea, vomiting, or change in bowel habits. He otherwise has regular bowel habits. He denies any heavy lifting or trauma. Since this episode 3 weeks ago, he is had complete resolution of his abdominal symptoms. Patient since chart was reviewed. Roughly a year ago he had a CT scan of the abdomen which demonstrated no abdominal wall defects no other intra-abdominal pathology. At that time incidental finding of a left upper lobe lung lesion was made. Patient was a distant smoking history and he discontinued cigarettes roughly 20 years ago. He has no other respiratory issues or complaints. Denies any cough, hemoptysis, chest pain, wheezing. [facility] Medical History Uncontrolled hypertension CAD (coronary artery disease) Fluid overload Anemia in ESRD (end-stage renal disease) Anemia PAD (peripheral artery disease) Acute kidney injury superimposed on CKD Hypertension Type 2 diabetes mellitus ESRD (end stage renal disease) CKD (chronic kidney disease) stage 3, GFR 30-59 ml/min Renal artery stenosis Anemia Erectile dysfunction (HFpEF) heart failure with preserved ejection fraction Osteomyelitis CKD stage 3 due to type 2 diabetes mellitus LIVE (iron deficiency anemia) Hyperlipidemia associated with type 2 diabetes mellitus Kidney disease High cholesterol HTN (hypertension) Diabetes Surgical History Status post transmetatarsal amputation of left foot Hx of amputation History of amputation of right forefoot H/O shoulder surgery Family History Other No family history of coronary artery disease Social History (Reviewed 03/09/24 @ 09:24 by CRISTIANO De Leon Household Members: None Housing: Apartment Do you presently have visiting nurse or other home services: Yes (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 CLEANER ONLY) Alcohol intake: current Alcohol intake frequency: holidays/special occasions only Alcohol type: beer Comment: previously medicated with IV morphine Patient Tobacco Use Status: Never used Tobacco Tobacco use type: Cigarette Second Hand Smoke Exposure: No Substance Use Type: Crack/Cocaine Advance Directives Date on File: 02/02/22 service: No Current occupational status: retired Physical Exam Vital Signs: Last Vital Signs Pulse 72 03/09/24 09:24 BP 132/72 03/09/24 09:24 BMI result Body Mass Index 29.2 Chest Other: Chest sounds bilaterally, HS 1 in 2 GI Other: Patient was examined both supine and standing with Valsalva. Very corpulent abdomen. Prior umbilical hernia repair no evidence of recurrence. Bilateral groin exam negative. No obvious mass, tenderness, or other abdominal symptoms. Benign exam. Assessment & Plan Assessment & Plan (1) Mass of upper lobe of left lung: Code(s): R91.8 - Other nonspecific abnormal finding of lung field Category: Surgical Plan 1. Abdominal symptoms have resolved. Patient will be treated conservatively regarding this. 2. Patient is due for a follow-up CT scan of the chest regarding his left upper lobe lung lesion. Arrangements were made for this. He will see me after the study Coding Level of Care Code New Pt Level 4 (32423) Diagnoses Mass of upper lobe of left lung R91.8
[2024-03-09 09:24] VITALS: BP 132/72; PULSE 72; BMI 29.2
== END 2024-03-09 09:30 | disposition home or self-care (01) ==
PROVIDERS: PCP General Practice; Visit Provider Surgery
DX: R91.8 Other nonspecific abnormal finding of lung field (principal)
CPT/HCPCS: 99213

== ENCOUNTER → 2024-03-09 09:17 | Outpatient (BNVA) | payer OTHER, SELFPAY | PROVIDERS: PCP General Practice; Visit Provider Surgery | DX: R91.8 Other nonspecific abnormal finding of lung field (principal) | CPT/HCPCS: 99212 ==

== ENCOUNTER → 2024-05-01 11:42 | Outpatient (REF) | payer OTHER, SELFPAY ==
--- NOTE | 2024-05-01 11:49 | ECG_ITS ---
Test Reason : PREOP Blood Pressure : */* mmHG Vent. Rate : 65 BPM Atrial Rate : 65 BPM P-R Int : 270 ms QRS Dur : 90 ms QT Int : 416 ms P-R-T Axes : 91 48 41 degrees QTcB Int : 432 ms Sinus rhythm with 1st degree A-V block Otherwise normal ECG When compared with ECG of 22-Oct-2023 13:08, No significant change was found Referred By: Iliana Oswald Electronically Signed By: ALONA FOOTE
--- OUTSIDE RECORDS SUMMARY | 2024-05-01 12:44 | XMS_ITS | Encounter Summary ---
Author Organization [employer] Address [address] [place] [address] Care Team Providers Care Social Service Liaison Name Role Phone Marline Richard MD Primary Care Provider [phone] Reason for Visit * Reason Onset Date Comments Pre-visit Planning 10/30/2023 Encounter Details Date Type Department Care Team ([facility] st Contact Info) Description 10/30/2023 Telephone [facility] MEDICINE [address] [place] [address] Marline Richard MD [address] [place] [address] Pre-visit Planning Social History Tobacco Use Types Packs/Day Years Used Date Smoking Tobacco: Former Cigarettes Passive Smoke Exposure: Past Smokeless Tobacco: Never Comments:Quit smoking cigarr etes 20 yrs ago Alcohol Use Standard Drinks/Week Comments Not Currently 0 (1 standard drink = 0.6 oz pur e alcohol) Alcohol Answer Date Recorded Frequency of Alcohol Consumption Not on file 08/02/2023 Average Number of Drinks Not on file 024 Frequency of Binge Drinking Not on file 07/10 Score 0 08/02/2023 Depression Answer Date Recorded Patient Health Questionnaire-9 Score 0 08/02/2023 Patient Health Questionnaire-9 Score 0 08/02/2023 Last PHQ-9: Questionnaire Data Not on file 0 08/02/2023 Housing Stability Answer Date Recorded What is your housing situation today? I have pedrito alvarado 12/26/[address] you li ve. Do you have problems with any of the following? None of the above 12/26/2022 Food Insecurity Answer Date Recorded Within the past 12 months, y ou worried that your food would run out before you got money to buy more: Never True 12/26/2022 Within the past 12 months,th e food you bought just didn't last and you didn't have enough money to get more: Never True Transportation Answer Date Recorded In the past 12 months, has l ack of transportation kept you from medical appts, meetings, work or from getting things needed for daily living? No 08/02/2023 Utilities Answer Date Recorded In the past 12 months, has t he [employer] gas, oil or water [employer] threatened to shut off services in your home? No 12/26/2022 Depression Answer Date Recorded Patient Health Questionnaire-2 Score 0 08/02/2023 Sex and Gender Information Value Date Recorded Sex Assigned at Male 01/08/2022 10:14 AM EDT Legal Sex Male 10:14 AM EDT Gender Identity Male 01/08/2022 10:14 AM EDT Sexual Orientation Straight 01/08/2022 10 :14 AM EDT documented as of this encounter Miscellaneous Notes * Telephone Encounter - Néstor Hall - 10/30/2023 9:57 AM EDT Tc from patient returning call to complete pre-visit planning documented in this encounter Plan of Treatment Upcoming Encounters Date Type Department Care Team (Late st Contact Info) Description 07/21/2024 1:00 PM EDT Office Visit [facility] OPTOMETRY [address] [place] [address] Leslie Aguilar, OD [address] [place] [address] documented as of this encounter Goals Goal Patient Goal Type Associated Problems Recent Progress Patient-Stated? Author Blood Pressure < 140/90 Blood Pressure 109/56(2024 1:18 PM EST) Deandre Acosta Hemoglobin A1c < 7 Result Component 7.8( 3:44 PM EST) No Deandre Cordon documented as of this encounter Visit Diagnoses Not on filedocumented in this encounter Additional Health Concerns Assessment Noted Time PHQ-9 Depression Total Score: 0 08/02/19 24 1:47 PM EDT documented as of this encounter Care Teams Social Service Liaison Relationship Specialty Start Date End Date Marline Richard MD [address] [place] [address] PCP - General Family Medicine 04/21/20 documented as of this encounter
--- OUTSIDE RECORDS SUMMARY | 2024-05-01 12:44 | XMS_ITS | Encounter Summary ---
Author Organization [employer] Address [address] [place] [address] Care Team Providers Care Exercise Planner Name Role Phone Marline Richard MD Primary Care Provider Reason for Visit * Reason Comments Med Refill Encounter Details Date Type Department Care Team ([facility] Contact Info) Description 08/16/2023 Refill [facility] MEDICINE [address] [place], [place] [phone] Marline Richard MD [address], [place] [phone] Type 2 diabetes mellitus with chronic kidney disease, with long-term current use of insulin, unspecified CKD stage (CMS/HCC) Social History Tobacco Use Types Packs/Day Years [...] the past 12 months, has t he electric, gas, oil or water company threatened to shut off services in your home? No 12/26/2022 Depression Answer Date Recorded Patient Health Questionnaire-2 Score 0 08/02/2023 Sex and Gender Information Value Date Recorded Sex Assigned at Male 01/08/2022 10:14 AM EDT Legal Sex Male 10:14 AM EDT Gender Identity Male 01/08/2022 10:14 AM EDT Sexual Orientation Straight 01/08/2022 10 :14 AM EDT documented as of this encounter Plan of Treatment Upcoming Encounters Date Type Department Care Team (Late st Contact Info) Description 07/21/2024 1:00 PM EDT Office Visit [facility] OPTOMETRY [address] [place] [address] JeffLeslie, OD [address] [place] [address] documented as of this encounter Goals Goal Patient Goal Type Associated Problems Recent Progress Patient-Stated? Author Blood Pressure < 140/90 Blood Pressure 109/56(2024 1:18 PM EST) No Deandre Cordon Hemoglobin A1c < 7 Result Component 7.8( 3:44 PM EST) Deandre Acosta documented as of this encounter Visit Diagnoses Diagnosis Type 2 diabetes mellitus with chronic kidney disease, with long-term current use of insulin, unspecified CKD stage (CMS/HCC) documented in this encounter Additional Health Concerns Assessment Noted Time PHQ-9 Depression Total Score: 0 08/02/19 1:47 PM EDT documented as of this encounter Care Teams Exercise Planner Relationship Specialty Start Date End Date Marline Richard MD [address] [place] [address] PCP - General Family Medicine 04/21/20 documented as of this encounter
--- OUTSIDE RECORDS SUMMARY | 2024-05-01 12:44 | XMS_ITS | Clinical Summary ---
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 Name Role Phone Lizy Soria NP Primary Care Provider [phone] Allergies Active Allergy Reactions Criticality Noted Date Comments Mirtazapine Other (see comments) 01/30/2021 Medications amoxicillin-cla vulanate (AUGMENTIN) 875-125 MG per tablet Take 1 tablet by mouth 2 (two) times a day Active atorvastatin (LIPITOR) 80 MG tablet Take 1 tablet by mouth at bed time Active fluticasone (FLONASE) 50 MCG/ACT nasal spray Administer 2 puffs into each nostril 1 (one) time each day Active glipiZIDE (GLUCOTROL) 10 MG tablet Take 2 tablets by mouth 2 (two) times a day Active hydrALAZINE 25 MG tablet Take 1 tablet by mouth 2 (two) times a day Active HYDROmorphone (DILAUDID) 2 MG tablet Take 3 mg by mouth every 4 (four) hours Active Melatonin 5 MG capsule Take 1 capsule by mouth 1 (one) time each day Active metFORMIN (GLUCOPHAGE) 1000 MG tablet Take 1 tablet by mouth 2 (two) times a day Active metoprolol tartrate (LOPRESSOR) 100 MG tablet Take 1 tablet by mouth 1 (one) time each day Active sertraline (ZOLOFT) 50 MG tablet Take 1 tablet by mouth 1 (one) time each day Active SITagliptin (JANUVIA) 100 MG tablet Take 1 tablet by mouth 1 (one) time each day Active traMADol (ULTRAM) 50 MG tablet Take 1 tablet by mouth 2 (two) times a day Active tamsulosin (FLOMAX) 0.4 MG 24 hr capsule Take 1 capsule by mouth 1 (one) time each day Active Dulaglutide (TRULICITY SC) Inject 100 Units under the skin Active amLODIPine (NORVASC) 10 MG tablet Take 1 tablet (10 mg total) by mouth 1 (one) time each day 30 tablet 11 3 Active losartan (COZAAR) 50 MG tablet Take 1 tablet (50 mg total) by mouth in the morning and 1 tablet (50 mg total) in the evening. 180 tablet 3 4 Active Active Problems Problem Noted Date Diagnosed Date Chronic kidney disease, stage 4 (severe) 023 Hyperkalemia 08/20/2022 02/07/2023 Overview (02/07/2023): Last Assessment & Plan: Adjusting BP meds with nephrology Exercise counseling 07/27/2022 Amputated left lower limb below knee 04/24/2022 Reduced mobility 04/09/2022 Obese class I 03/08/2022 Chronic congestive heart failure 02/15/2022 Type 2 diabetes mellitus 02/15/2022 Nonproliferative retinopathy due to diabetes bertrand litus 08/21/2021 Hyperglycemia due to type 2 diabetes mellitus Stage 3a chronic kidney disease 01/30/2021 Type 2 diabetes mellitus wit h diabetic chronic kidney disease 01/30/2021 Renal osteodystrophy 01/30/2021 Degeneration of lumbar intervertebral disc 06/13 Foot pain 12/30/2017 Intermittent claudication 12/30/2017 Polyneuropathy due to diabetes mellitus 12/31/19 18 Chronic back pain 12/14/2014 Essential hypertension 12/14/2014 Mixed hyperlipidemia 12/14/2014 Secondary erectile dysfunction 12/14/2014 Encounters Date Type Department Care Team Description 04/29/2024 [facility] [address] [address] Bernardo Christie MD 04/27/2024 Treatment [facility] [address] [address] Bernardo Christie MD 04/20/2024 Treatment [facility] [address] [address] Bernardo Araiza MD 04/15/2024 Orders Only [facility] [address] [address] Bernardo Christie MD 04/13/2024 Treatment [facility] [address] [address] Bernardo Christie MD 04/06/2024 Treatment [facility] [address] [address] Bernardo Christie MD 03/30/2024 Treatment [facility] [address] [address] Bernardo Araiza MD 03/23/2024 Treatment [facility] [address] [address] Bernardo Araiza MD 03/16/2024 Treatment [facility] [address] [address] Bernardo Christie MD 03/03/2024 Treatment [facility] [address] [address] Bernardo Christie MD 02/24/2024 Treatment [facility] [address] [address] Bernardo Christie MD 02/17/2024 Treatment [facility] [address] [address] Bernardo Christie MD 02/10/2024 Treatment [facility] [address] [address] Bernardo Christie MD from Last 3 Months Immunizations Name Administration Dates Next Due Hepatitis B 12/14/2014,05/12/2014,02/15/2014 Influenza Split 12/11/2012 Influenza, Quadrivalent, Pre servative Free 12/25/2019 Influenza, Quadrivalent, Wit h Preservative 12/15/2018,12/30/2017,02/15/2017,12/14 Influenza, Unspecified 12/19/2021,2020,02/15/2014,02/15 Moderna SARS-COV-2 06/20/2020,05/23/2020 Pfizer SARS-COV-2 01/24/2021 Pneumococcal Conjugate Pcv 20 12/19/2021 Pneumococcal Polysaccharide 08/04/2012, 5 Shingrix 04/21/2019,12/24/2018 Tdap 06/10/2012 Tetanus 10/11/2006 Zoster 03/18/2015 Social History Tobacco Use Types Packs/Day Years Used Date Smoking Tobacco: Never Smokeless Tobacco: Never Tobacco Cessation:Counseling Given: Not Answered Alcohol Use Standard Drinks/Week Comments Never 0 (1 standard drink = 0.6 oz pur e alcohol) Sex and Gender Information Value Date Recorded Sex Assigned at Not on file Legal Sex Male 5:23 PM EST Gender Identity Not on file Sexual Orientation Not on file Last Filed Vital Signs Vital Sign Reading Time Taken Comments Blood Pressure 165/60 11/26/2022 9:41 AM EDT Pulse 86 11/26/2022 9:41 AM EDT Temperature - - Respiratory Rate - - Oxygen Saturation 99% 11/26/2022 9:41 AM EDT Inhaled Oxygen Concentration - - Weight 88.8 kg (195 lb 12.8 oz) 11/26/2022 9:41 AM EDT Height - - Body Mass Index - - Plan of Treatment Health Maintenance Due Date Last Done Comments Hepatitis B Vaccine (1 of 5 - Risk Dialysis 4-dose series) 1975 12/14/2014, 05/12/2014, 02/15/2014 Colorectal Cancer Screening: Annual FOBT 2004 Colorectal Cancer Screening: Colonoscopy 2004 Colorectal Cancer Screening: Sigmoidoscopy 2004 Diabetes: Ophthalmology Exam 04/11/2020 Diabetes: Pedal Pulse Checked 04/11/2020 Diabetes: Sensory Foot Exam 04/11/2020 Diabetes: Visual Foot Exam 04/11/2020 Influenza Vaccine (#1) 2023 , 01/09/2021, 12/25/2019, Additional history exists Diabetes: Hemoglobin A1C 06/16/2024 025, 02/10/2024, 08/19/2023, Additional history exists Pneumococcal Vaccine: 65+ Years Completed 12/19/2021, 08/04/2012, 02/15/2005 Procedures Procedure Name Priority Date/Time Associated Diagnosis Comments HEMOGLOBIN Routine 04/22/2024 3:00 AM EST LIH (HC) Routine 04/17/2024 3:00 AM EST KT/V NATURAL LOG, URR (HC) Routine 04/17/2024 3:00 AM EST TRANSFERRIN SATURATION Routine 3:00 AM EST PROTEIN, TOTAL, SERUM Routine 04/15/2024 3:00 AM EST KT/V NATURAL LOG, URR (HC) Routine 04/15/2024 3:00 AM EST MAGNESIUM Routine 04/15/2024 3:00 AM EST LIH (HC) Routine 04/15/2024 3:00 AM EST ELECTROLYTE PANEL Routine 04/15/2024 3:0 0 AM EST LACTATE DEHYDROGENASE Routine 04/15/2024 3:00 AM EST GLUCOSE, RANDOM Routine 04/15/2024 3:00 AM EST CREATININE, SERUM Routine 04/15/2024 3:0 0 AM EST BILIRUBIN, TOTAL Routine 04/15/2024 3:00 AM EST AST Routine 04/15/2024 3:00 AM EST CALCIUM PHOSPHORUS PRODUCT, ADJUSTED (HC) Routine 04/15/2024 3:00 AM EST ALKALINE PHOSPHATASE Routine 04/15/2024 3:00 AM EST ALT Routine 04/15/2024 3:00 AM EST FERRITIN Routine 04/15/2024 3:00 AM EST CBC AND DIFFERENTIAL Routine 04/15/2024 3:00 AM EST HEMOGLOBIN Routine 04/10/2024 3:00 AM EST HEMOGLOBIN Routine 04/08/2024 3:00 AM EST HEMOGLOBIN AND HEMATOCRIT, BLOOD Routine 04/01/2024 3:00 AM EST ALUMINUM LEVEL Routine 03/18/2024 3:00 AM EST HEPATITIS C ABS W/REFLEX RNA DETECTR Routine 03/18/2024 3:00 AM EST CONFIRMATION TEST HCV Routine 03/18/2024 3:00 AM EST HEMOGLOBIN A1C Routine 03/18/2024 3:00 AM EST PTH, INTACT Routine 03/18/2024 3:00 AM EST FERRITIN Routine 03/18/2024 3:00 AM EST HEPATITIS B SURFACE ANTIBODY QUANT Routine 03/18/2024 3:00 AM EST URIC ACID Routine 03/18/2024 3:00 AM EST TRANSFERRIN SATURATION Routine 3:00 AM EST PROTEIN, TOTAL, SERUM Routine 03/18/2024 3:00 AM EST ELECTROLYTE PANEL Routine 03/18/2024 3:0 0 AM EST MAGNESIUM Routine 03/18/2024 3:00 AM EST LIH (HC) Routine 03/18/2024 3:00 AM EST LIPID PANEL Routine 03/18/2024 3:00 AM EST GLUCOSE, RANDOM Routine 03/18/2024 3:00 AM EST LACTATE DEHYDROGENASE Routine 03/18/2024 3:00 AM EST CREATININE, SERUM Routine 03/18/2024 3:0 0 AM EST BILIRUBIN, TOTAL Routine 03/18/2024 3:00 AM EST AST Routine 03/18/2024 3:00 AM EST ALKALINE PHOSPHATASE Routine 03/18/2024 3:00 AM EST CALCIUM PHOSPHORUS PRODUCT, ADJUSTED (HC) Routine 03/18/2024 3:00 AM EST ALT Routine 03/18/2024 3:00 AM EST CBC AND DIFFERENTIAL Routine 03/18/2024 3:00 AM EST KT/V NATURAL LOG, URR (HC) Routine 03/18/2024 3:00 AM EST HEMOGLOBIN Routine 03/08/2024 3:00 AM EST HEMOGLOBIN AND HEMATOCRIT, BLOOD Routine 02/26/2024 3:00 AM EST HEPATITIS B SURFACE ANTIGEN W/REFL CONFIRM Routine 02/19/2024 3:00 AM EST HEPATITIS B SURFACE ANTIBODY QUANT Routine 02/19/2024 3:00 AM EST TRANSFERRIN SATURATION Routine 3:00 AM EST FERRITIN Routine 02/12/2024 3:00 AM EST PROTEIN, TOTAL, SERUM Routine 02/12/2024 3:00 AM EST MAGNESIUM Routine 02/12/2024 3:00 AM EST ELECTROLYTE PANEL Routine 02/12/2024 3:0 0 AM EST LACTATE DEHYDROGENASE Routine 02/12/2024 3:00 AM EST GLUCOSE, RANDOM Routine 02/12/2024 3:00 AM EST LIH (HC) Routine 02/12/2024 3:00 AM EST CREATININE, SERUM Routine 02/12/2024 3:0 0 AM EST BILIRUBIN, TOTAL Routine 02/12/2024 3:00 AM EST ALKALINE PHOSPHATASE Routine 02/12/2024 3:00 AM EST ALT Routine 02/12/2024 3:00 AM EST AST Routine 02/12/2024 3:00 AM EST CALCIUM PHOSPHORUS PRODUCT, ADJUSTED (HC) Routine 02/12/2024 3:00 AM EST KT/V NATURAL LOG, URR (HC) Routine 02/12/2024 3:00 AM EST CBC AND DIFFERENTIAL Routine 02/12/2024 3:00 AM EST HEMOGLOBIN Routine 02/04/2024 3:00 AM EST from Last 3 Months Results * (ABNORMAL) Hemoglobin (04/22/2024 3:00 AM EST) Only the most recent of5 resultswithin the time period is included. Hgb 10.8(L) 13.7 - 17.5 g/dL [facility] Hemoglobin x 3 32.4(L) 41.1 - 52.5 g/dL [facility] 04/22/2024 3:00 AM EST 04/23/2024 2:43 PM EST us Bernardo Christie MD LAB BLOOD ORDERABLES Final Resul t Performing Organization Address [facility] Co de Phone Number [facility] [address] [place] [address] * LIH (04/17/2024 3:00 AM EST) Only the most recent of4 resultswithin the time period is included. Lipemia Normal Normal [facility] Icterus Normal Normal [facility] Hemolysis Normal Normal [facility] 04/17/2024 3:00 AM EST 04/18/2024 3:18 PM EST us Bernardo Christie MD LAB [id number] ICITED RESULTS Final Result Performing Organization Address [facility] de Phone Number [facility] [address] [place] [address] * (ABNORMAL) Kt/V Natural Log, URR (04/17/2024 3:00 AM EST) Only the most recent of4 resultswithin the time period is included. Treatment Time 218 min [facility] Pre-Weight, lb 83.5 kg [facility] Post-Weight, lb 81.3 kg [facility] Ultrafiltration Rate 7 <=13 mL/kg/hr [facility] Comment: Recommend achieving Ultrafiltration Rate (UFR) <=10 mL/kg/hr References: Nora REYES et al. Kidney Int. 2010; 79(2):250-257 BUN Post Dialysis 21 7 - 25 mg/dL [facility] BUN 69(H) 7 - 25 mg/dL [facility] UREA REDUCTION RATIO (%) 70 >=65 % [facility] Kt/V Natural Log 1.37 >=1.2 [facility] 04/17/2024 3:00 AM EST 04/18/2024 2:53 PM EST us Bernardo Christie MD LAB [id number] ICITED RESULTS Final Result Performing Organization Address [facility] de Phone Number [facility] [address] [place] [address] * (ABNORMAL) Calcium Phosphorus Product, Adjusted (04/15/2024 3:00 AM EST) Only the most recent of3 resultswithin the time period is included. Albumin 3.8 3.6 - 5.4 g/dL [facility] Calcium 8.0(L) 8.6 - 10.3 mg/dL [facility] Phosphorus, Serum 6.2(H) 2.5 - 5.0 mg/dL [facility] Ca*PO4 49.6 <55.0 mg2/dL2 [facility] Calcium, Adjusted Total 8.2(L) 8.6 - 10.3 mg/dL [facility] CA*PO4 CORRCTD 50.8 <55.0 mg2/dL2 [facility] 04/15/2024 3:00 AM EST 04/16/2024 12:08 PM EST us Bernardo Christie MD LAB [id number] ICITED RESULTS Final Result Performing Organization Address [facility] de Phone Number [facility] [address] [place] [address] * (ABNORMAL) TSAT (04/15/2024 3:00 AM EST) Only the most recent of3 resultswithin the time period is included. Iron 144 65 - 175 ug/dL [facility] Transferrin 132(L) 215 - 365 mg/dL [facility] TIBC 185(L) 211 - 406 ug/dL [facility] Iron Saturation (TSat) 78(H) 22 - 52 % [facility] 04/15/2024 3:00 AM EST 04/16/2024 12:08 PM EST us Bernardo Christie MD LAB BLOOD ORDERABLES Final Resul t Performing Organization Address [facility] Co de Phone Number [facility] [address] [place] [address] * (ABNORMAL) CBC and Differential (04/15/2024 3:00 AM EST) Only the most recent of3 resultswithin the time period is included. DIFFERENTIAL MANUAL, 2 Not Indicated [facility] White Blood Cells 8.2 4.2 - 9.1 K/uL [facility] RBC 3.35(L) 4.63 - 6.08 M/uL [facility] Hgb 10.8(L) 13.7 - 17.5 g/dL [facility] Hemoglobin x 3 32.4(L) 41.1 - 52.5 g/dL [facility] Hematocrit 31.6(L) 40.1 - 51.0 % [facility] MCV 94.3(H) 79.0 - 92.2 fL [facility] MCH 32.2 25.7 - 32.2 pg [facility] MCHC 34.2 32.3 - 36.5 g/dL [facility] Platelets 164 163 - 337 K/uL [facility] RDW 13.5 11.6 - 14.4 % [facility] Neutrophils Relative 62.2 34.0 - 67.9 % [facility] Lymphocytes Relative 22.6 21.8 - 53.1 % [facility] Monocytes 11.7 5.3 - 12.2 % [facility] Eosinophils Relative 2.6 0.8 - 7.0 % [facility] Basophils Relative 0.7 0.2 - 1.2 % [facility] Immature Granulocytes 0.2 0.0 - 1.0 % [facility] 04/15/2024 3:00 AM EST 04/16/2024 12:13 PM EST Bernardo Christie MD LAB BLOOD ORDERABLES Final Resul t Performing Organization Address City/[facility] Co de Phone Number [facility] [address] [place] [address] * ALT (04/15/2024 3:00 AM EST) Only the most recent of3 resultswithin the time period is included. Pathologist [facility] ALT (SGPT) 30 10 - 49 U/L [facility] 04/15/2024 3:00 AM EST 04/16/2024 12:08 PM EST Bernardo Christie MD LAB BLOOD ORDERABLES Final Resul t Performing Organization Address City/State/[facility] Co de Phone Number [facility] [address] [place] [address] * AST (04/15/2024 3:00 AM EST) Only the most recent of3 resultswithin the time period is included. AST (SGOT) 24 <34 U/L [facility] 04/15/2024 3:00 AM EST 04/16/2024 12:08 PM EST us Bernardo Christie MD LAB BLOOD ORDERABLES Final Resul t Performing Organization Address [facility] de Phone Number [facility] [address] [place] [address] * Protein, total (04/15/2024 3:00 AM EST) Only the most recent of3 resultswithin the time period is included. Total Protein 6.9 6.4 - 8.9 g/dL [facility] 04/15/2024 3:00 AM EST 04/16/2024 12:08 PM EST us Bernardo Christie MD LAB BLOOD ORDERABLES Final Resul t Performing Organization Address [facility] Phone Number [facility] [address] [place] [address] * (ABNORMAL) Alkaline phosphatase (04/15/2024 3:00 AM EST) Only the most recent of3 resultswithin the time period is included. Alkaline Phosphatase 163(H) 46 - 116 U/L [facility] 04/15/2024 3:00 AM EST 04/16/2024 12:08 PM EST us Bernardo Christie MD LAB BLOOD ORDERABLES Final Resul t Performing Organization Address [facility] de Phone Number [facility] [address] [place] [address] * (ABNORMAL) Magnesium (04/15/2024 3:00 AM EST) Only the most recent of3 resultswithin the time period is included. Magnesium 1.6(L) 1.9 - 2.7 mg/dL [facility] 04/15/2024 3:00 AM EST 04/16/2024 12:08 PM EST us Bernardo Christie MD LAB BLOOD ORDERABLES Final Resul t Performing Organization Address [facility] de Phone Number [facility] [address] [place] [address] * (ABNORMAL) Lactate dehydrogenase (04/15/2024 3:00 AM EST) Only the most recent of3 resultswithin the time period is included. LDH 283(H) 120 - 246 U/L [facility] 04/15/2024 3:00 AM EST 04/16/2024 12:08 PM EST us Bernardo Christie MD LAB BLOOD ORDERABLES Final Resul t Performing Organization Address [facility] de Phone Number [facility] [address] [place] [address] * (ABNORMAL) Glucose, random (04/15/2024 3:00 AM EST) Only the most recent of3 resultswithin the time period is included. Glucose 230(H) 74 - 109 mg/dL [facility] 04/15/2024 3:00 AM EST 04/16/2024 12:08 PM EST us Bernardo Christie MD LAB BLOOD ORDERABLES Final Resul t Performing Organization Address [facility] de Phone Number [facility] [address] [place] [address] * (ABNORMAL) Ferritin (04/15/2024 3:00 AM EST) Only the most recent of3 resultswithin the time period is included. Ferritin 1,450(H) 22 - 322 ng/mL [facility] 04/15/2024 3:00 AM EST 04/16/2024 12:08 PM EST us Bernardo Christie MD LAB BLOOD ORDERABLES Final Resul t Performing Organization Address [facility] Co de Phone Number [facility] [address] [place] [address] * (ABNORMAL) Creatinine, serum (04/15/2024 3:00 AM EST) Only the most recent of3 resultswithin the time period is included. Creatinine 6.88(H) 0.70 - 1.30 mg/dL [facility] 04/15/2024 3:00 AM EST 04/16/2024 12:08 PM EST us Bernardo Christie MD LAB BLOOD ORDERABLES Final Resul t Performing Organization Address [facility] de Phone Number [facility] [address] [place] [address] * (ABNORMAL) Bilirubin, total (04/15/2024 3:00 AM EST) Only the most recent of3 resultswithin the time period is included. Total Bilirubin <0.2(L) 0.3 - 1.2 mg/dL [facility] 04/15/2024 3:00 AM EST 04/16/2024 12:08 PM EST us Bernardo Christie MD LAB BLOOD ORDERABLES Final Resul t Performing Organization Address [facility] Co de Phone Number [facility] [address] [place] [address] * Electrolyte panel (04/15/2024 3:00 AM EST) Only the most recent of3 resultswithin the time period is included. Sodium 138 136 - 145 mEq/L [facility] Potassium 4.4 3.4 - 5.0 mEq/L [facility] Chloride 99 98 - 107 mEq/L [facility] Bicarbonate (CO2) 26 21 - 31 mEq/L [facility] Anion Gap 13 3 - 14 mEq/L [facility] 04/15/2024 3:00 AM EST 04/16/2024 12:08 PM EST Bernardo Christie MD LAB BLOOD ORDERABLES Final Resul t Performing Organization Address [facility] de Phone Number [facility] [address] [place] [address] * (ABNORMAL) Hemoglobin and hematocrit (04/01/2024 3:00 AM EST) Only the most recent of2 resultswithin the time period is included. Hgb 11.9(L) 13.7 - 17.5 g/dL [facility] Hematocrit 35.9(L) 40.1 - 51.0 % [facility] Hemoglobin x 3 35.7(L) 41.1 - 52.5 g/dL [facility] 04/01/2024 3:00 AM EST 04/02/2024 1:12 PM EST Bernardo Christie MD LAB BLOOD ORDERABLES Final Resul t Performing Organization Address [facility] de Phone Number [facility] [address] [place] [address] * Confirmation Test HCV (03/18/2024 3:00 AM EST) Hep C Ab Confirmation Not needed [facility] 03/18/2024 3:00 AM EST 03/19/2024 6:04 PM EST Bernardo Christie MD LAB BLOOD ORDERABLES Final Resul t Performing Organization Address [facility] de Phone Number [facility] [address] [place] [address] * HEPATITIS C ABS W/REFLEX RNA DETECTR (03/18/2024 3:00 AM EST) Hep C Virus Ab Non-Reacti ve Non-Reacti ve [facility] 03/18/2024 3:00 AM EST 03/19/2024 5:56 PM EST us Bernardo Christie MD LAB [id number] ICITED RESULTS Final Result Performing Organization Address [facility] de Phone Number [facility] [address] [place] [address] * Aluminum level (03/18/2024 3:00 AM EST) Aluminum 3 1 - 20 ug/L [facility] 03/18/2024 3:00 AM EST 03/19/2024 5:39 PM EST us Bernardo Christie MD LAB BLOOD ORDERABLES Final Resul t Performing Organization Address [facility] Co de Phone Number [facility] [address] [place] [address] * Hepatitis B Surface Antibody (03/18/2024 3:00 AM EST) Only the most recent of2 resultswithin the time period is included. Hep B Surface Antibody 362 mIU/mL [facility] Comment: Interpretation: <10: No Immunity >=10: Probable Immunity 03/18/2024 3:00 AM EST 03/19/2024 5:56 PM EST us Bernardo Christie MD LAB BLOOD ORDERABLES Final Resul t Performing Organization Address [facility] de Phone Number [facility] [address] [place] [address] * Uric Acid (03/18/2024 3:00 AM EST) Uric Acid 6.0 4.4 - 7.6 mg/dL [facility] 03/18/2024 3:00 AM EST 03/19/2024 5:56 PM EST us Bernardo Christie MD LAB BLOOD ORDERABLES Final Resul t Performing Organization Address [facility] de Phone Number [facility] [address] [place] [address] * PTH, Intact (03/18/2024 3:00 AM EST) PTH, Intact 346 160 - 721 pg/mL [facility] Comment: Suggested (KDIGO) ESRD maintenance range is two to nine times the upper normal limit (80.1 pg/mL) for the laboratory. 03/18/2024 3:00 AM EST 03/19/2024 5:56 PM EST Bernardo Christie MD LAB BLOOD ORDERABLES Final Resul t Performing Organization Address [facility] Phone Number [facility] [address] [address] * (ABNORMAL) Hemoglobin A1c (03/18/2024 3:00 AM EST) Hemoglobin A1C 7.5(H) <5.7 % [facility] Comment: Methodology: Enzymatic HbA1c (NGSP %) ?Suggested Diagnosis >6.4% ? Diabetic 5.7-6.4% ?Pre-Diabetic <5.7% ? Non-Diabetic Diabetic Glucose Control Evaluation: Therapeutic action suggested at >8.0% ADA recommends a glycemic goal of <7.0% 03/18/2024 3:00 AM EST 03/19/2024 6:04 PM EST Bernardo Christie MD LAB BLOOD ORDERABLES Final Resul t Performing Organization Address [facility] Phone Number [facility] [address] [address] * (ABNORMAL) Lipid panel (03/18/2024 3:00 AM EST) Cholesterol 86 <200 mg/dL [facility] Comment: Optimal: ?<200 Borderline: ? 200-239 Higher Risk: ?>239 Triglycerides 150(A) <150 mg/dL [facility] Comment: Optimal: ?<150 Borderline High: ??150-199 High: ? 200-499 Very High: ?>499 HDL 28(A) >59 mg/dL [facility] Comment: Desirable: ?>59 Higher Risk: ?<40 LDL-Calc 28 <100 mg/dL [facility] Comment: Optimal: ?<100 Above Optimal: ?100-129 Borderline High: ??130-159 High: ? 160-189 Very High: ?>189 VLDL Cholesterol Ernie 30(A) <30 mg/dL [facility] Comment: Optimal: ?<30 Borderline High: ??30-39 High: ? 40-99 Very High: ?>99 Chol/HDL Ratio 3.1 <3.3 [facility] Comment: Optimal: ?<3.3 Higher Risk: ?>6.2 03/18/2024 3:00 AM EST 03/19/2024 5:56 PM EST Bernardo Christie MD LAB BLOOD ORDERABLES Final Resul t Performing Organization Address [facility] de Phone Number [facility] [address] [place] [address] * Hepatitis B Surface Ag w/Reflex Confirmation (02/19/2024 3:00 AM EST) Hep B Surface Antigen Negative Negative [facility] 02/19/2024 3:00 AM EST 02/20/2024 2:08 PM EST Bernardo Christie MD LAB BLOOD ORDERABLES Final Resul t Performing Organization Address [facility] de Phone Number [facility] [address] [place] [address] from Last 3 Months Insurance [address] [place] [address] [facility] ([id number]) [facility] ([id number]) Care Teams Garbage Pick Up Man Relationship Specialty Start Date End Date Lizy Soria NP [address] [place] [id number] PCP - General Nurse Practitioner 12/17/23
--- OUTSIDE RECORDS SUMMARY | 2024-05-01 12:44 | XMS_ITS | Encounter Summary ---
Author Organization [employer] Address [address] [place] [address] Care Team Providers Care Web Page Developer Name Role Phone Marline Richard MD Primary Care Provider [phone] Reason for Visit * Reason Comments Med Refill Encounter Details Date Type Department Care Team ([facility] st Contact Info) Description 06/12/2023 Refill [facility] MEDICINE [address] [place], [place] [phone] Marline Richard MD [address] [place], [place] [phone] Vitamin D deficiency, unspecified Social History Tobacco Use Types Packs/Day Years Used Date Smoking Tobacco: Former Cigarettes Passive Smoke Exposure: Past Smokeless Tobacco: Never Comments:Quit smoking cigarr etes 20 yrs ago Alcohol Use Standard Drinks/Week Comments Not Currently 0 (1 standard drink = 0.6 oz pur e alcohol) Depression Answer Date Recorded Patient Health Questionnaire-9 Score 5 04/20/2022 Housing Stability Answer Date Recorded What is [...] from getting things needed for daily living? Yes, it has kept me from medical appointments or getting medications. 12/18/2022 Utilities Answer Date Recorded In the past 12 months, has t he electric, gas, oil or water company threatened to shut off services in your home? No 12/26/2022 Depression Answer Date Recorded Patient Health Questionnaire-2 Score 0 08/17/2022 Sex and Gender Information Value Date Recorded Sex Assigned at Male 01/08/2022 10:14 AM EDT Legal Sex Male 10:14 AM EDT Gender Identity Male 01/08/2022 10:14 AM EDT Sexual Orientation Straight 01/08/2022 10 :14 AM EDT documented as of this encounter Miscellaneous Notes * Telephone Encounter - Marline Richard MD - 06/14/2023 10:39 AM EDT Last time Vit D ws checked it was 24, he can take daily supplementation, which is what I ordered documented in this encounter Plan of Treatment Upcoming Encounters Date Type Department Care Team (Late st Contact Info) Description 07/21/2024 1:00 PM EDT Office Visit [facility] OPTOMETRY [address] [place] [address] Leslie Aguilar, OD 230 [place] [address] documented as of this encounter Goals Goal Patient Goal Type Associated Problems Recent Progress Patient-Stated? Author Blood Pressure < 140/90 Blood Pressure 109/56(2024 1:18 PM EST) No Deandre Cordon Hemoglobin A1c < 7 Result Component 7.8( 3:44 PM EST) No Deandre Cordon documented as of this encounter Visit Diagnoses Diagnosis Vitamin D deficiency, unspecified documented in this encounter Additional Health Concerns Assessment Noted Time PHQ-9 Depression Total Score: 5 04/20/19 23 1:08 PM EST documented as of this encounter Care Teams Web Page Developer Relationship Specialty Start Date End Date Marline Richard MD [address] [place] [address] PCP - General Family Medicine 04/21/20 documented as of this encounter
--- OUTSIDE RECORDS SUMMARY | 2024-05-01 12:44 | XMS_ITS | Encounter Summary ---
Author Organization [employer] Address [address] [place] [address] Care Team Providers Care Administrative Judge Name Role Phone Marline Richard MD Primary Care Provider [phone] Encounter Details Date Type Department Care Team ([facility] st Contact Info) Description 02/15/2023 Orders Only [facility] MEDICINE [address] [place] [address] Marline Richard MD 230 [place] [address] Essential hypertension Social History Tobacco Use Types Packs/Day Years Used Date Smoking Tobacco: Former Cigarettes Passive Smoke Exposure: Never Smokeless Tobacco: Never Comments:Quit smoking cigarr etes [...] Description 07/21/2024 1:00 PM EDT Office Visit [facility] OPTOMETRY [address] [place] [address] Jeff, Leslie, OD [address] [place] [address] documented as of this encounter Goals Goal Patient Goal Type Associated Problems Recent Progress Patient-Stated? Author Blood Pressure < 140/90 Blood Pressure 109/56(2024 1:18 PM EST) No Deandre Cordon Hemoglobin A1c < 7 Result Component 7.8( 3:44 PM EST) No Deandre Cordon documented as of this encounter Visit Diagnoses Diagnosis Essential hypertension Unspecified essential hypertension documented in this encounter Additional Health Concerns Assessment Noted Time PHQ-9 Depression Total Score: 5 04/20/19 23 1:08 PM EST documented as of this encounter Care Teams Administrative Judge Relationship Specialty Start Date End Date Marline Richard MD 230 [place] [address] PCP - General Family Medicine 04/21/20 documented as of this encounter
--- OUTSIDE RECORDS SUMMARY | 2024-05-01 12:44 | XMS_ITS | Encounter Summary ---
Author Organization [employer] Address [address] [place] [address] Care Team Providers Care Rolling Down Machine Operator Name Role Phone Marline Richard MD Primary Care Provider [phone] Encounter Details Date Type Department Care Team (Latest Contact Info) Description 08/18/2023 Orders Only [facility] MEDICINE [address] [place] [address] Marline Richard MD [address] [place] [address] Hypertriglyceridemia (Primary Dx) Social History Tobacco Use Types Packs/Day Years [...] Description 07/21/2024 1:00 PM EDT Office Visit [facility] OPTOMETRY [address] [place], [place] [phone] Jeff, Leslie, OD [address] [place] [address] documented as of this encounter Goals Goal Patient Goal Type Associated Problems Recent Progress Patient-Stated? Author Blood Pressure < 140/90 Blood Pressure 109/56(2024 1:18 PM EST) No Deandre Cordon Hemoglobin A1c < 7 Result Component 7.8( 3:44 PM EST) No Deandre Cordon documented as of this encounter Visit Diagnoses Diagnosis Hypertriglyceridemia- Primary Pure hyperglyceridemia documented in this encounter Additional Health Concerns Assessment Noted Time PHQ-9 Depression Total Score: 0 08/02/19 1:47 PM EDT documented as of this encounter Care Teams Rolling Down Machine Operator Relationship Specialty Start Date End Date Marline Richard MD [address] [place] [address] PCP - General Family Medicine 04/21/20 documented as of this encounter
--- OUTSIDE RECORDS SUMMARY | 2024-05-01 12:44 | XMS_ITS | Encounter Summary ---
Author Organization [employer] Address [address] [place] [address] Care Team Providers Care Head Sawyer Name Role Phone Marline Richard MD Primary Care Provider [phone] Reason for Visit * Reason Comments Med Refill Encounter Details Date Type Department Care Team ([facility] Contact Info) Description 04/25/2023 Refill [facility] MEDICINE [address] [place], [place] [phone] Marline Richard MD [address] [place], [place] [phone] Phantom limb (CMS/HCC) Social History Tobacco Use Types Packs/Day [...] Description 07/21/2024 1:00 PM EDT Office Visit [facility] OPTOMETRY [address] [place], [place] [phone] JeffLeslie, OD [address] [place] [address] documented as of this encounter Goals Goal Patient Goal Type Associated Problems Recent Progress Patient-Stated? Author Blood Pressure < 140/90 Blood Pressure 109/56(2024 1:18 PM EST) No Deandre Cordon Hemoglobin A1c < 7 Result Component 7.8( 4 3:44 PM EST) No Deandre Cordon documented as of this encounter Visit Diagnoses Diagnosis Phantom limb (CMS/HCC) Phantom limb (syndrome) documented in this encounter Additional Health Concerns Assessment Noted Time PHQ-9 Depression Total Score: 5 04/20/19 23 1:08 PM EST documented as of this encounter Care Teams Head Sawyer Relationship Specialty Start Date End Date Marline Richard MD [address] [place], [place] [phone] PCP - General Family Medicine 04/21/20 documented as of this encounter
--- OUTSIDE RECORDS SUMMARY | 2024-05-01 12:44 | XMS_ITS | Encounter Summary ---
Author Organization [employer] Address [address] [place] [address] Care Team Providers Care Queen Producer Name Role Phone Marline Richard MD Primary Care Provider [phone] Reason for Visit * Reason Onset Date Comments Paperwork/Forms 01/28/2023 Encounter Details Date Type Department Care Team ([facility] st Contact Info) Description 01/28/2023 Telephone [facility] MEDICINE [address] [place] [address] Marline Richard MD [address] [place] [address] Paperwork/Forms Social History Tobacco Use Types Packs/Day Years [...] the past 12 months, has t he [employer], gas, oil or water company threatened to [...] encounter Miscellaneous Notes * Telephone Encounter - Benoit Jones - 01/28/2023 11:47 AM EST Tc sarah mark from [facility] requesting status on PCP order form , [facility] has faxed forms 5 times withconfirmed fax number to [facility]. [facility] spoke with HIM and was advised they do not have nothing on fileto contact a team nurse. Please conbtact at [phone] documented in this encounter Plan of Treatment Upcoming Encounters Date Type Department Care Team (Late st Contact Info) Description 07/21/2024 1:00 PM EDT Office Visit [facility] OPTOMETRY [address] [place], [place] [phone] Leslie Aguilar, OD [address] [place] [address] documented as of this encounter Goals Goal Patient Goal Type Associated Problems Recent Progress Patient-Stated? Author Blood Pressure < 140/90 Blood Pressure 109/56(02/20/ 2025 1:18 PM EST) No Deandre Cordon Hemoglobin A1c < 7 Result Component 7.8( 4 3:44 PM EST) No Deandre Cordon documented as of this encounter Visit Diagnoses Not on filedocumented in this encounter Additional Health Concerns Assessment Noted Time PHQ-9 Depression Total Score: 5 04/20/19 23 1:08 PM EST documented as of this encounter Care Teams Queen Producer Relationship Specialty Start Date End Date Marline Richard MD [address] [place] [address] PCP - General Family Medicine 04/21/20 documented as of this encounter
--- OUTSIDE RECORDS SUMMARY | 2024-05-01 12:44 | XMS_ITS | Encounter Summary ---
Author Organization [employer] Address [address] [place] [address] Care Team Providers Care Metal Dealer Name Role Phone Marline Richard MD Primary Care Provider [phone] Reason for Visit * Reason Comments Med Refill Encounter Details Date Type Department Care Team ([facility] st Contact Info) Description 02/14/2023 Refill [facility]S [address] [place], [place] [phone] Marline Richard MD [address] [place] [address] Social History Tobacco Use Types Packs/Day Years [...] Description 07/21/2024 1:00 PM EDT Office Visit [facility] OPTOMETRY [address] [place] [address] Jeff, Leslie, OD [address] [place] [address] documented as of this encounter Goals Goal [...] documented as of this encounter Care Teams Metal Dealer Relationship Specialty Start Date End Date Marline Richard MD [address] [place], [place] [phone] PCP - General Family Medicine 04/21/20 documented as of this encounter
--- OUTSIDE RECORDS SUMMARY | 2024-05-01 12:44 | XMS_ITS | Encounter Summary ---
Author Organization [employer] Address [address] [place] [address] Care Team Providers Care Glass Calibrator Name Role Phone Marline Richard MD Primary Care Provider [phone] Reason for Visit * Reason Comments Med Refill Encounter Details Date Type Department Care Team ([facility] Contact Info) Description 09/18/2023 Refill [facility] MEDICINE [address] [place], [place] [phone] Marline Richard MD [address] [place], [place] [phone] Type 2 diabetes mellitus with chronic kidney [...] Description 07/21/2024 1:00 PM EDT Office Visit [facility] OPTOMETRY [address] [place] [address] JeffLeslie, OD [address] [place] [address] documented as of this encounter Goals Goal [...] documented as of this encounter Care Teams Glass Calibrator Relationship Specialty Start Date End Date Marline Richard MD [address] [place] [address] PCP - General Family Medicine 04/21/20 documented as of this encounter
--- OUTSIDE RECORDS SUMMARY | 2024-05-01 12:44 | XMS_ITS | Encounter Summary ---
Author Organization [employer] Address [address] [place] [address] Care Team Providers Care Enrolled Agent Name Role Phone Marline Richard MD Primary Care Provider [phone] Encounter Details Date Type Department Care Team ([facility] st Contact Info) Description 06/14/2023 Orders Only [facility] MEDICINE [address] [place] [address] Marline Richard MD [address] [place] [address] Social History Tobacco Use Types Packs/Day Years [...] Description 07/21/2024 1:00 PM EDT Office Visit [facility] OPTOMETRY [address] [place], [place] [phone] JeffLeslie henry, OD [address] [place] [address] documented as of this encounter Goals Goal [...] documented as of this encounter Care Teams Enrolled Agent Relationship Specialty Start Date End Date Marline Richard MD [address] [place], [place] [phone] PCP - General Family Medicine 04/21/20 documented as of this encounter
--- OUTSIDE RECORDS SUMMARY | 2024-05-01 12:45 | XMS_ITS | Encounter Summary ---
Author Organization [employer] Address [address] [place] [address] Care Team Providers Care Logistics Management Specialist Name Role Phone Marline Richard MD Primary Care Provider [phone] Reason for Visit * Reason Onset Date Comments returning call 01/16/2023 Encounter Details Date Type Department Care Team ([facility] st Contact Info) Description 01/16/2023 Telephone [facility] MEDICINE [address] [place] [address] Marline Richard MD [address] [place] [address] returning call Social History Tobacco Use Types Packs/Day Years [...] the past 12 months, has t he [employer] gas, oil or water [employer] threatened to shut off services in your [...] * Telephone Encounter - Benoit Jones - 01/16/2023 9:19 AM EST Tc from pt returning call. Please contact at [phone] [place] documented in this encounter Plan of Treatment Upcoming Encounters Date Type Department Care Team (Late st Contact Info) Description 07/21/2024 1:00 PM EDT Office Visit [facility] OPTOMETRY [address] [place] [address] Leslie Aguilar, OD [address] [place] [address] documented as of this encounter Goals Goal [...] documented as of this encounter Care Teams Logistics Management Specialist Relationship Specialty Start Date End Date Marline Richard MD 230 [place] [address] PCP - General Family Medicine 04/21/20 documented as of this encounter
--- OUTSIDE RECORDS SUMMARY | 2024-05-01 12:45 | XMS_ITS | Encounter Summary ---
Author Organization [facility] Address [address] [place] [address] [address] [place] [address] Phone Care Team Providers Care Independent Agent Music Education Name Role Phone Yang Lizy TELLO Primary Care Provider [phone] Encounter Details Date Type Department Care Team ([facility] st Contact Info) Description 04/15/2024 Orders Only [facility] [address]. [address] [facility] [address] [place] [address] Bernardo Christie MD [address] [address] Social History Tobacco Use Types Packs/Day Years Used Date Smoking Tobacco: Never Smokeless Tobacco: Never Alcohol Use Standard Drinks/Week Comments Never 0 (1 standard drink = 0.6 oz pur e alcohol) Sex and Gender Information Value Date Recorded Sex Assigned at Not on file Legal Sex Male 5:23 PM EST Gender Identity Not on file Sexual Orientation Not on file documented as of this encounter Plan of Treatment Not on file documented as of this encounter Procedures Procedure Name Priority Date/Time Associated Diagnosis Comments HEMOGLOBIN Routine 04/22/2024 3:00 AM EST LIH () Routine 04/17/2024 3:00 AM EST KT/V NATURAL LOG, URR () Routine 04/17/2024 3:00 AM EST LIH () Routine 04/15/2024 3:00 AM EST KT/V NATURAL LOG, URR () Routine 04/15/2024 3:00 AM EST CALCIUM PHOSPHORUS PRODUCT, ADJUSTED (HC) Routine 04/15/2024 3:00 AM EST TRANSFERRIN SATURATION Routine 3:00 AM EST CBC AND DIFFERENTIAL Routine 04/15/2024 3:00 AM EST ALT Routine 04/15/2024 3:00 AM EST AST Routine 04/15/2024 3:00 AM EST PROTEIN, TOTAL, SERUM Routine 04/15/2024 3:00 AM EST ALKALINE PHOSPHATASE Routine 04/15/2024 3:00 AM EST MAGNESIUM Routine 04/15/2024 3:00 AM EST LACTATE DEHYDROGENASE Routine 04/15/2024 3:00 AM EST GLUCOSE, RANDOM Routine 04/15/2024 3:00 AM EST FERRITIN Routine 04/15/2024 3:00 AM EST CREATININE, SERUM Routine 04/15/2024 3:0 0 AM EST BILIRUBIN, TOTAL Routine 04/15/2024 3:00 AM EST ELECTROLYTE PANEL Routine 04/15/2024 3:0 0 AM EST documented in this encounter Results * (ABNORMAL) Hemoglobin (04/22/2024 3:00 AM EST) Hgb 10.8(L) 13.7 - 17.5 g/dL [facility] Hemoglobin x 3 32.4(L) 41.1 - 52.5 g/dL [facility] 04/22/2024 3:00 AM EST 04/23/2024 2:43 PM EST us Bernardo Christie MD LAB BLOOD ORDERABLES Final Resul t Performing Organization Address City/[facility] Co de Phone Number [facility] [address] [place] [address] * LIH (04/17/2024 3:00 AM EST) Lipemia Normal Normal [facility] Icterus Normal Normal [facility] Hemolysis Normal Normal [facility] 04/17/2024 3:00 AM EST 04/18/2024 3:18 PM EST us Bernardo Christie MD LAB [id number] ICITED RESULTS Final Result Performing Organization Address [facility] de Phone Number [facility] [address] [place] [address] * (ABNORMAL) Kt/V Natural Log, URR (04/17/2024 3:00 AM EST) Treatment Time 218 min [facility] Pre-Weight, lb [...] PM EST us Bernardo Christie MD LAB [id number] ICITED RESULTS Final Result Performing Organization Address [facility] de Phone Number [facility] [address] [place] [address] * (ABNORMAL) TSAT (04/15/2024 3:00 AM EST) Iron 144 65 - 175 ug/dL [facility] Transferrin 132(L) 215 - 365 mg/dL [facility] TIBC 185(L) 211 - 406 ug/dL [facility] Iron Saturation (TSat) 78(H) 22 - 52 % [facility] 04/15/2024 3:00 AM EST 04/16/2024 12:08 PM EST us Bernardo Christie MD LAB BLOOD ORDERABLES Final Resul t Performing Organization Address [facility] de Phone Number [facility] [address] [place] [address] * Protein, total (04/15/2024 3:00 AM EST) Total Protein 6.9 6.4 - 8.9 g/dL [facility] 04/15/2024 3:00 AM EST 04/16/2024 12:08 PM EST us Bernardo Christie MD LAB BLOOD ORDERABLES Final Resul t Performing Organization Address [facility] de Phone Number [facility] [address] [place] [address] * (ABNORMAL) Kt/V Natural Log, URR (04/15/2024 3:00 AM EST) BUN 74(H) 7 - 25 mg/dL [facility] 04/15/2024 3:00 AM EST 04/16/2024 12:08 PM EST us Bernardo Christie MD LAB [id number] ICITED RESULTS Final Result Performing Organization Address [facility] de Phone Number [facility] [address] [place] [address] * (ABNORMAL) Magnesium (04/15/2024 3:00 AM EST) Magnesium 1.6(L) 1.9 - 2.7 mg/dL [facility] 04/15/2024 3:00 AM EST 04/16/2024 12:08 PM EST us Bernardo Christie MD LAB BLOOD ORDERABLES Final Resul t Performing Organization Address [facility] de Phone Number [facility] [address] [place] [address] * LIH (04/15/2024 3:00 AM EST) Lipemia Normal Normal [facility] Icterus Normal Normal [facility] Hemolysis Normal Normal [facility] 04/15/2024 3:00 AM EST 04/16/2024 12:08 PM EST us Bernardo Christie MD LAB [id number] ICITED RESULTS Final Result Performing Organization Address [facility] de Phone Number [facility] [address] [place] [address] * Electrolyte panel (04/15/2024 3:00 AM EST) Sodium 138 136 - 145 mEq/L [facility] Potassium 4.4 3.4 - 5.0 mEq/L [facility] Chloride 99 98 - 107 mEq/L [facility] Bicarbonate (CO2) 26 21 - 31 mEq/L [facility] Anion Gap 13 3 - 14 mEq/L [facility] 04/15/2024 3:00 AM EST 04/16/2024 12:08 PM EST us Bernardo Christie MD LAB BLOOD ORDERABLES Final Resul t Performing Organization Address [facility] de Phone Number [facility] [address] [place] [address] * (ABNORMAL) Lactate dehydrogenase (04/15/2024 3:00 AM EST) LDH 283(H) 120 - 246 U/L [facility] 04/15/2024 3:00 AM EST 04/16/2024 12:08 PM EST us Bernardo Christie MD LAB BLOOD ORDERABLES Final Resul t Performing Organization Address [facility] de Phone Number [facility] [address] [place] [address] * (ABNORMAL) Glucose, random (04/15/2024 3:00 AM EST) Glucose 230(H) 74 - 109 mg/dL [facility] 04/15/2024 3:00 AM EST 04/16/2024 12:08 PM EST us Bernardo Christie MD LAB BLOOD ORDERABLES Final Resul t Performing Organization Address [facility] de Phone Number [facility] [address] [place] [address] * (ABNORMAL) Creatinine, serum (04/15/2024 3:00 AM EST) Creatinine 6.88(H) 0.70 - 1.30 mg/dL [facility] 04/15/2024 3:00 AM EST 04/16/2024 12:08 PM EST us Bernardo Christie MD LAB BLOOD ORDERABLES Final Resul t Performing Organization Address [facility] Phone Number [facility] [address] [place] [address] * (ABNORMAL) Bilirubin, total (04/15/2024 3:00 AM EST) Total Bilirubin <0.2(L) 0.3 - 1.2 mg/dL [facility] 04/15/2024 3:00 AM EST 04/16/2024 12:08 PM EST us Bernardo Christie MD LAB BLOOD ORDERABLES Final Resul t Performing Organization Address [facility] de Phone Number [facility] [address] [place] [address] * AST (04/15/2024 3:00 AM EST) AST (SGOT) 24 <34 U/L [facility] 04/15/2024 3:00 AM EST 04/16/2024 12:08 PM EST us Bernardo Christie MD LAB BLOOD ORDERABLES Final Resul t Performing Organization Address [facility] de Phone Number [facility] [address] [place] [address] * (ABNORMAL) Calcium Phosphorus Product, Adjusted (04/15/2024 3:00 AM EST) Albumin 3.8 3.6 - 5.4 g/dL [facility] Calcium 8.0(L) 8.6 - 10.3 mg/dL [facility] Phosphorus, Serum 6.2(H) 2.5 - 5.0 mg/dL [facility] Ca*PO4 49.6 <55.0 mg2/dL2 [facility] Calcium, Adjusted Total 8.2(L) 8.6 - 10.3 mg/dL [facility] CA*PO4 CORRCTD 50.8 <55.0 mg2/dL2 [facility] 04/15/2024 3:00 AM EST 04/16/2024 12:08 PM EST us Bernardo Christie MD LAB [id number] ICITED RESULTS Final Result Performing Organization Address [facility] Co de Phone Number [facility] [address] [place] [address] * (ABNORMAL) Alkaline phosphatase (04/15/2024 3:00 AM EST) Alkaline Phosphatase 163(H) 46 - 116 U/L [facility] 04/15/2024 3:00 AM EST 04/16/2024 12:08 PM EST us Bernardo Christie MD LAB BLOOD ORDERABLES Final Resul t Performing Organization Address City/[facility] de Phone Number [facility] [address] [place] [address] * ALT (04/15/2024 3:00 AM EST) ALT (SGPT) 30 10 - 49 U/L [facility] 04/15/2024 3:00 AM EST 04/16/2024 12:08 PM EST us Bernardo Christie MD LAB BLOOD ORDERABLES Final Resul t Performing Organization Address [facility] Co de Phone Number [facility] [address] [place] [address] * (ABNORMAL) Ferritin (04/15/2024 3:00 AM EST) Pathologist [facility] Ferritin 1,450(H) 22 - 322 ng/mL [facility] 04/15/2024 3:00 AM EST 04/16/2024 12:08 PM EST us Bernardo Christie MD LAB BLOOD ORDERABLES Final Resul t [facility] [address] [place] [address] * (ABNORMAL) CBC and Differential (04/15/2024 3:00 AM EST) Pathologist [facility] DIFFERENTIAL MANUAL, 2 Not Indicated [facility] White [...] MD LAB BLOOD ORDERABLES Final Resul t [facility] [address] [place] [address] documented in this encounter Visit Diagnoses Not on filedocumented in this encounter Care Teams Independent Agent Music Education Relationship Specialty Start Date End Date Lizy Soria NP [address] [place] [address] PCP - General Nurse Practitioner 12/17/23 documented as of this encounter
--- OUTSIDE RECORDS SUMMARY | 2024-05-01 12:45 | XMS_ITS | Encounter Summary ---
Author Organization [employer] Address [address] [place] [address] Care Team Providers Care Assembler Musical Instruments Name Role Phone Marline Richard MD Primary Care Provider [phone] Encounter Details Date Type Department Care Team ([facility] st Contact Info) Description 04/17/2024 Telephone [facility] MEDICINE [address] [place] [address] Marline Richard MD [address] [place] [address] Social History Tobacco Use Types Packs/Day Years [...] encounter Miscellaneous Notes * Telephone Encounter - Mari Donovan - 04/17/2024 1:16 PM EST Called pt to inform them that they missed there pre-op appt on 04/17/24 pt said the lady from the surgery place called him saying to give us a call to request the next pre-op appt so they can see when they can rs his surgery.We rs the appt for 04/30/24 pt is aware that appt is in [place] ,pt said that it was okay. I did call Ellen Sharma and Shel[facility] to let them know that he did miss his pre-op appt today. The person on the phone said we just have to reschedule the pre-op appt again.She did request us to fax overhis last office visit notes, I faxed them over to them. documented in this encounter Plan of Treatment Upcoming Encounters Date Type Department Care Team (Late st Contact Info) Description 07/21/2024 1:00 PM EDT Office Visit [facility] OPTOMETRY [address] [place] [phone] Leslie Aguilar OD [address] [place] [address] documented as of this encounter Goals Goal [...] documented as of this encounter Care Teams Assembler Musical Instruments Relationship Specialty Start Date End Date Marline Richard MD [address] [place] [address] PCP - General Family Medicine 04/21/20 documented as of this encounter
--- OUTSIDE RECORDS SUMMARY | 2024-05-01 12:45 | XMS_ITS | Encounter Summary ---
Author Organization [facility] Address [address] [place] [phone] Phone Care Team Providers Care Creative Writing English Professor Name Role Phone Lizy Soria THERAPEUTIC PROGRAM WORKER Primary Care Provider [phone] Encounter Details Date Type Department Care Team ([facility] st Contact Info) Description 04/20/2024 Treatment [facility] [address] [address] Allen Koroma MD [address] [address] Social History Tobacco Use Types [...] on file documented as of this encounter Miscellaneous Notes * Dialysis Note - Allen Koroma MD - 04/20/2024 12:00 AM EST Patient: Kingsley Johnson : 1955 Note Type: Dialysis Rounds-Basic Service Date: 04/20/2024 This patient was personally seen for a basic visit as part of routine monthly dialysis care for end stage renal disease. Attending Cryptologic Linguist: ALLEN KOROMA MD Dialysis Location: [facility] Schedule: Shift: 1 HOME MEDICATIONS Current [facility] Outpatient Medications amLODIPine (NORVASC) 10 MG tablet Take 1 tablet (10 mg total) by mouth 1 (one) time each day Start Date: 11/26/2022 amoxicillin-clavulanate (AUGMENTIN) tablet 875-125 mg Take 1 tablet by mouth 2 (two) times a day Start Date: atorvastatin (LIPITOR) tablet Take 1 tablet by mouth at bed time Start Date: fluticasone (FLONASE) nasal spray Administer 2 puffs into each nostril 1 (one) time each day Start Date: glipiZIDE (GLUCOTROL) tablet Take 2 tablets by mouth 2 (two) times a day Start Date: hydrALAZINE (APRESOLINE) tablet Take 1 tablet by mouth 2 (two) times a day Start Date: HYDROmorphone (DILAUDID) tablet Take 3 mg by mouth every 4 (four) hours Start Date: losartan (COZAAR) 50 MG tablet Take 1 tablet (50 mg total) by mouth in the morning and 1 tablet (50 mg total) in the evening. Start Date: 05/31/2023 MELATONIN 5 MG PO CAPS Take 1 capsule by mouth 1 (one) time each day Start Date: metFORMIN (GLUCOPHAGE) tablet Take 1 tablet by mouth 2 (two) times a day Start Date: metoprolol tartrate (LOPRESSOR) tablet Take 1 tablet by mouth 1 (one) time each day Start Date: sertraline (ZOLOFT) tablet Take 1 tablet by mouth 1 (one) time each day Start Date: SITagliptin (JANUVIA) tablet Take 1 tablet by mouth 1 (one) time each day Start Date: tamsulosin (FLOMAX) 24 hr capsule 0.4 mg Take 1 capsule by mouth 1 (one) time each day Start Date: traMADol (ULTRAM) tablet 50 mg Take 1 tablet by mouth 2 (two) times a day Start [facility] 100 Units under the skin Start Date: Current [facility] Allergies Allergen: MIRTAZAPINE Reaction: Other (see comments) ADEQUACY ASSESSMENT Kt/V, Natural Log 1.37 (04/17/24) 1.42 (03/18/24) 1.28 (02/12/24) UREA REDUCTION RATIO (%) 70 (04/17/24) 70 (03/18/24) 65 (02/12/24) % Urea Reduction 75 (09/13/23) 69 (09/09/23) 72 (08/21/23) BUN 69 (04/17/24) 74 (04/15/24) 66 (03/18/24) BUN Post Dialysis 21 (04/17/24) 20 (03/18/24) 24 (02/12/24) Creatinine 6.88 (04/15/24) 6.64 (03/18/24) 7.71 (02/12/24) Bicarbonate (CO2) 26 (04/15/24) 26 (03/18/24) 24 (02/12/24) Sodium 138 (04/15/24) 137 (03/18/24) 136 (02/12/24) ANEMIA ASSESSMENT Hgb 10.8 (04/15/24) 11.5 (04/10/24) 11.8 (04/08/24) Hemoglobin 11.3 (09/09/23) 11.0 (09/02/23) 11.7 (08/26/23) Iron Saturation (TSat) 78 (04/15/24) 19 (03/18/24) 55 (02/12/24) Ferritin 1,450 (04/15/24) 756 (03/18/24) 1,110 (02/12/24) Iron 144 (04/15/24) 40 (03/18/24) 98 (02/12/24) TIBC 185 (04/15/24) 211 (03/18/24) 179 (02/12/24) MCV 94.3 (04/15/24) 99.4 (03/18/24) 95.6 (02/12/24) Vitamin B-12 624 (08/19/23) Platelets 164 (04/15/24) 202 (03/18/24) 158 (02/12/24) BMM ASSESSMENT Calcium, Adjusted Total 8.2 04/15/24 9.1 03/18/24 8.4 02/12/24 Calcium 8.0 04/15/24 9.0 03/18/24 8.1 02/12/24 Corrected Calcium 8.9 09/09/23 9.1 08/19/23 Phosphorus, Serum 6.2 04/15/24 5.3 03/18/24 4.8 02/12/24 Phosphorus 5.7 09/09/23 5.0 08/19/23 Ca*PO4 49.6 04/15/24 47.7 03/18/24 38.9 02/12/24 Calcium Phosphorus Product 50 09/09/23 44 08/19/23 PTH, Intact 346 03/18/24 301 01/15/24 PTH 378 09/09/23 321 08/19/23 Vitamin D, 25-OH, Total 36.9 08/19/23 Magnesium 1.6 04/15/24 1.6 03/18/24 1.6 02/12/24 Alkaline Phosphatase 163 04/15/24 171 03/18/24 166 02/12/24 Aluminum 3 03/18/24 <5 08/19/23 NUTRITION ASSESSMENT Albumin 3.8 04/15/24 3.9 03/18/24 3.6 02/12/24 Potassium 4.4 04/15/24 4.6 03/18/24 4.5 02/12/24 Hemoglobin A1C 7.5 03/18/24 6.4 08/19/23 ADDITIONAL LABS White Blood Cells 8.2 (04/15/24) 8.7 (03/18/24) 4.9 (02/12/24) WBC 7.28 (09/09/23) 7.98 (08/19/23) Cholesterol 86 (03/18/24) HDL 28 (03/18/24) LDL-Calc 28 (03/18/24) Triglycerides 150 (03/18/24) Hep B Surface Antibody 362 (03/18/24) 336 (02/19/24) Hepatitis B Surface Ab 547 (08/19/23) Uric Acid 6.0 (03/18/24) Signed by: ALLEN KOROMA MD on 04/20/2024 at 09:16:24 AM documented in this encounter Plan of Treatment Not on file documented as of this encounter Visit Diagnoses Not on filedocumented in this encounter Care Teams Creative Writing English Professor Relationship Specialty Start Date End Date Lizy Soria NP [address] [place] [id number] PCP - General Nurse Practitioner 12/17/23 documented as of this encounter
--- OUTSIDE RECORDS SUMMARY | 2024-05-01 12:45 | XMS_ITS | Encounter Summary ---
Author Organization [employer] Address [address] [facility] [address] [place] [address] Care Team Providers Care Cashier Courtesy Booth Name Role Phone Marline Richard MD Primary Care Provider [phone] Reason for Visit * Reason Comments Med Refill Encounter Details Date Type Department Care Team (Late Contact Info) Description 11/20/2022 Refill [facility] MEDICINE [address] [place] [address] Keesha Black MD [address] [place] [address] Social History Tobacco Use Types Packs/Day Years Used Date Smoking Tobacco: Former Cigarettes Passive Smoke Exposure: Never Smokeless Tobacco: Never Comments:Quit smoking cigarr etes 20 yrs ago Alcohol Use Standard Drinks/Week Comments Not Currently 0 (1 standard drink = 0.6 oz pur e alcohol) Depression Answer Date Recorded Patient Health Questionnaire-9 Score 5 04/20/2022 Depression Answer Date Recorded Patient Health Questionnaire-2 Score 0 08/17/2022 Sex and Gender Information Value Date Recorded Sex Assigned at Male 01/08/2022 10:14 AM EDT Legal Sex Male 10:14 AM EDT Gender Identity Male 01/08/2022 10:14 AM EDT Sexual Orientation Straight 01/08/2022 10 :14 AM EDT documented as of this encounter Plan of Treatment Upcoming Encounters Date Type Department Care Team (Late Contact Info) Description 07/21/2024 1:00 PM EDT Office Visit [facility] OPTOMETRY [address] [place] [address] Leslie Aguilar, OD [address] [place] [address] documented as of this encounter Visit Diagnoses Not on filedocumented in this encounter Additional Health Concerns Assessment Noted Time PHQ-9 Depression Total Score: 5 04/20/19 23 1:08 PM EST documented as of this encounter Care Teams Cashier Courtesy Booth Relationship Specialty Start Date End Date Marline Richard MD [address] [place] [address] PCP - General Family Medicine 04/21/20 documented as of this encounter
--- OUTSIDE RECORDS SUMMARY | 2024-05-01 12:45 | XMS_ITS | Clinical Summary ---
Author Organization [employer] Address [address] [facility] 7[address] [place] [address] Care Team Providers Care Admin Secretary Name Role Phone Marline Richard MD Primary Care Provider [phone] Allergies Active Allergy Reactions Criticality Noted Date Comments Metformin 08/05/2023 Mirtazapine Hives 07/08/2014 Medications Continuous Blood Gluc Shoe Handler (Octopusapp Daniel 2 [place]) deviceIndication s:Type 2 diabetes mellitus with stage 2 chronic kidney disease, with long-term current use of insulin ([facility]) 1 each in the morning. 1 each 3 Active fluticasone (Flonase) 50 MCG/ACT nasal spray USE 2 SPRAYS IN EACH NOSTRIL EVERY MORNING NEEDED 48 g 3 Active albuterol (Ventolin HFA) 108 (90 Base) MCG/ACT inhaler Inhale 2 puffs every 4 (four) hours if needed for wheezing or shortness of breath. 18 g 1 3 Active omeprazole (PriLOSEC) [address] capsuleIndicatio ns:Gastroesophag eal reflux disease, unspecified whether esophagitis present Take 1 capsule (40 mg) by mouth before breakfast. Do not crush or chew. 30 capsule 11 3 Active losartan (Cozaar) 50 MG tablet Take 1 tablet (50 mg) by mouth in the morning. 90 tablet 3 4 Active docusate sodium (Colace) 100 MG capsuleIndicatio ns:Constipation, unspecified constipation type TAKE 1 CAPSULE BY MOUTH AT BEDTIME 90 capsule 3 4 Active carvedilol (Coreg) 25 MG tablet TAKE 1 TABLET BY MOUTH TWICE DAILY IN THE MORNING AND IN THE EVENING 180 tablet 3 4 Active cholecalciferol (Vitamin D3) 25 MCG (1000 UT) tablet Take 1 tablet (1,000 Units) by mouth in the morning. 90 tablet 3 4 Active NIFEdipine XL (Procardia XL) 90 MG 24 hr tablet Take 1 tablet (90 mg) by mouth Once per day. Do not crush, chew, or split. 30 tablet 4 07/16/19 25 Active isosorbide mononitrate ER (Imdur) 120 MG 24 hr tablet Take 1 tablet (120 mg) by mouth Once per day. Do not crush or chew. 30 tablet 4 07/16/19 25 Active sertraline (Zoloft) 50 MG tablet TAKE 1 TABLET BY MOUTH EVERY MORNING 90 tablet 3 4 Active Icosapent Ethyl (Vascepa) 1 g capsuleIndicatio ns:Hypertriglyce ridemia Take 2 capsules (2 g) by mouth with breakfast and with evening meal. 120 capsule 4 08/18/19 25 Active atorvastatin (Lipitor) 80 MG tablet TAKE 1 TABLET BY MOUTH AT BEDTIME 90 tablet 3 4 Active OneTouch Ultra Test test stripIndications :Type 2 diabetes mellitus with chronic kidney disease, with long-term current use of insulin, unspecified CKD stage ([facility]/HCC) USE DIRECTED TO TEST BLOOD SUGAR THREE TIMES DAILY 100 strip 4 Active Continuous Glucose Sensor (FreeStyle Daniel 2 Sensor) miscIndications: Type 2 diabetes mellitus with stage 2 chronic kidney disease, with long-term current use of insulin ([facility]) USE DIRECTED AND CHANGE EVERY 14 DAYS 2 each 11 4 Active Blood Glucose Monitoring Suppl (ONE TOUCH ULTRA 2) w/Device kitIndications:T ype 2 diabetes mellitus with chronic kidney disease, with long-term current use of insulin, unspecified CKD stage (CMS/HCC) Use to monitor blood glucose three times daily 1 kit 4 Active tamsulosin (Flomax) 0.4 MG 24 hr capsule TAKE 1 CAPSULE BY MOUTH EVERY EVENING 30 MINUTOS DESPUES DE LA FRANCHESKA 90 capsule 3 4 Active hydrALAZINE (Apresoline) 50 MG tabletIndication s:Essential hypertension TAKE 2 TABLETS BY MOUTH THREE TIMES DAILY IN THE MORNING, EVENING AND BEDTIME 180 tablet 11 4 Active gabapentin (Neurontin) 300 MG capsule TAKE 1 CAPSULE BY MOUTH EVERY MORNING 90 capsule 3 4 Active Tresiba FlexTouch 100 UNIT/ML injection Inject 25 Units under the skin at bedtime. 10 mL 3 4 Active Lancets 33G misc 1 each at noon and 1 each in the evening. Use to test blood sugar three times a day. 100 each 11 4 Active cyclobenzaprine (Flexeril) 10 MG tablet Take 1 tablet (10 mg) by mouth if needed in the morning, at noon, and at bedtime for muscle spasms. 45 tablet 1 4 Active cetirizine (ZyrTEC) 10 MG tablet Take 1 tablet (10 mg) by mouth Once per day. 90 tablet 3 4 02/10/20 25 Active aspirin (Aspirin Low Dose) 81 MG chewable tablet Chew 1 tablet (81 mg) Once per day. 90 tablet 3 4 Active NIFEdipine XL (Procardia XL) 60 MG 24 hr tablet TAKE 2 TABLETS BY MOUTH ONCE DAILY IN THE MORNING 4 Active Melatonin 3 MG capsule Take 1 capsule orally qhs 30 capsule 5 5 Active traZODone (Desyrel) 100 MG tablet Take 1 tablet (100 mg) by mouth at bedtime. For insomnia 90 tablet 3 4 04/30/19 25 Discontin ued(Side effects) Active Problems Problem Noted Date Diagnosed Date Postural dizziness with presyncope 10/08/2023 Assessment & Plan (10/08/2023 4:13 PM EDT): - related to hypotension, unclear if pt has acute bleeding due to sudden drop of hemoglobin - discussed with pt treatment options and he agreed to go to ED via EMS - f/u with hemodialysis and PCP in case he needs RBC transfusion or further evaluation Anemia due to chronic kidney disease, on chronic dialysis 10/08/2023 Assessment & Plan (10/08/2023 4:11 PM EDT): - hemoglobin from 11-7 in 3 week period, r/o acute bleeding, refer to ED Mild protein-calorie malnutrition 08/21/2023 Allergy, unspecified, initial encounter 08/18/19 24 Anaphylactic shock, unspecified, initial encount er 08/18/2023 Chest pain, unspecified 08/18/2023 Fever, unspecified 08/18/2023 Hypoglycemia, unspecified 08/18/2023 Pain, unspecified 08/18/2023 Secondary hyperparathyroidism of renal origin Encounter for screening for respiratory tubercul osis 08/18/2023 Anemia in chronic kidney disease 08/08/2023 Dependence on renal dialysis 08/08/2023 Heart failure, unspecified 08/08/2023 group home (current) use of oral hypoglycemic sarahi gs 08/08/2023 Long-term (current) use of i njectable non-insulin antidiabetic drugs 08/08/2023 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 07/16/2023 Scalp lesion 07/16/2023 Assessment & Plan (07/16/2023 3:18 PM EDT): Mupirocin daily Screening for colorectal cancer 07/15/2023 Phantom limb 04/15/2023 Iron deficiency anemia 04/15/2023 Assessment & Plan (04/15/2023 11:29 AM EST): Check iron studies today May need iron transfusion versus erythropoetin End stage renal disease on d ialysis due to type 2 diabetes mellitus 04/15/2023 Assessment & Plan (04/15/2023 11:28 AM EST): At [facility] dialysis M/W/F schedule Confirmed with dialysis provider that he can use CGM for monitoring of blood sugars Lipid, BMP ordered today Primary insomnia 03/08/2023 Assessment & Plan (08/05/2023 11:12 AM EDT): Restart Trazodone 100mg nightly Assessment & Plan (03/08/2023 11:54 AM EST): Extensive counseling about sleep hygiene done today No caffeine No screens before bed time No to much liquids or heavy food before bed Hyperkalemia 08/20/2022 Assessment & Plan (08/20/2022 7:49 AM EDT): Adjusting BP meds with nephrology Exercise counseling 07/27/2022 Below-knee amputation of left lower extremity Reduced mobility 04/09/2022 Chronic congestive heart failure 02/15/2022 Assessment & Plan (11/19/2022 7:42 AM EDT): He is not reporting signs or symptoms of fluid overload Continue Furosemide 40mg BID Nonproliferative diabetic retinopathy 08/21/2021 Assessment & Plan (04/24/2022 11:46 AM EST): Appointment made with [facility] for May 28 at 230pm Type 2 diabetes mellitus wit h diabetic chronic kidney disease 01/30/2021 Assessment & Plan (02/14/2024 2:19 PM EST): Cont Tresibia, Januvia A1C 7.8 today Complications of his DM2 include S/p BKA, ESRD, NPDR, ED Assessment & Plan (08/20/2022 7:48 AM EDT): Cont Trulicity, Metformin, Glipizde 10mg BID A1C 6.2 today Complications of his DM2 include S/p BKA, NPDR, ED Assessment & Plan (04/24/2022 11:46 AM EST): Decrease Glipizde to 10mg BID for hypoglycemia Continue rest of diabetic regimen A1C 6.4 today Degeneration of lumbar intervertebral disc 06/13 Diabetic polyneuropathy 12/30/2017 Assessment & Plan (07/27/2022 8:39 AM EDT): Cont Gabapentin Foot pain 12/30/2017 Intermittent claudication 12/30/2017 Assessment & Plan (08/20/2022 7:48 AM EDT): Follows with vascular surgery Chronic back pain 12/14/2014 Erectile dysfunction associa adilson with type 2 diabetes mellitus ([facility]) 12/14/2014 Assessment & Plan (08/05/2023 11:10 AM EDT): Cannot have PDE5 inhibitors due to interaction with isosorbide Referral to urology placed to consider other modalities of treatment Assessment & Plan (08/20/2022 7:50 AM EDT): Cannot have PDE5 inhibitors due to interaction with isosorbide Referral to urology placed to consider other modalities of treatment Assessment & Plan (07/27/2022 8:40 AM EDT): Failed Viagra, max dose of 100 Refer to urology for discussion of other options Essential hypertension 12/14/2014 Assessment & Plan (02/14/2024 2:21 PM EST): Not at goal <130/80 Work with dialysis team, clinical pharmacist to achieve tighter BP control Increase Imdur to 120mg daily Consider increase of Losartan next Assessment & Plan (07/16/2023 10:19 AM EDT): Not at goal <130/80 Work with dialysis team, clinical pharmacist to achieve tighter BP control Increase Imdur to 120mg daily Consider increase of Losartan next Discussed with Medbox team about changes to prepare for next medbox next week Assessment & Plan (04/15/2023 11:27 AM EST): Not at goal <130/80 Work with dialysis team, clinical pharmacist to achieve tighter BP control Assessment & Plan (11/19/2022 7:41 AM EDT): With worsening Cr, renal ultrasound in [facility] hospitalization in September suggesting renal artery stenosis Had MRA pending Continue Amlodipine, Lasix, Losartan, Metoprolol, Isosorbide - [facility] hospitalist had started Nifedipine as well in September hospitalization, this was discontinued by cardiology 10/10/22, removed from med list Assessment & Plan (08/20/2022 7:51 AM EDT): Currently in [facility]/bump in Cr Managing BP meds with property management specialist, held all of his BP meds and Metformin today Assessment & Plan (04/24/2022 11:45 AM EST): Continue medbox meds Confirmed this with pharmacy Dispose of rehab meds appropriately Mixed hyperlipidemia 12/14/2014 Encounters Date Type Department Care Team Description 04/30/2024 1:30 PM EST Office Visit [facility] [address] [place] [address] Iliana Oswald MD Preop examination (Primary Dx); Type 2 diabetes mellitus with chronic kidney disease, with long-term current use of insulin, unspecified CKD stage ([facility]) 04/30/2024 Travel 04/17/[address] [address] Marline Richard MD 04/15/[address] [address] [facility] [place] Chart Prep 03/17/[address] [address] Rosa Barrios, JOSE CGM Sensor PA 03/06/[address] [address] Marline Richard MD Pre-op Visit 02/17/[address] [address] Reina Kim RN 02/10/2024 2:00 PM EST Office Visit [address] [address] Marline Richard MD Chronic congestive heart failure, unspecified heart failure type ([facility]) (Primary Dx); Type 2 diabetes mellitus with chronic kidney disease, with long-term current use of insulin, unspecified CKD stage ([facility]); Encounter for immunization; Essential hypertension; End stage renal disease on dialysis due to type 2 diabetes mellitus ([facility]); Erectile dysfunction associated with type 2 diabetes mellitus ([facility]) ([facility]); Moderate nonproliferative diabetic retinopathy of both eyes with macular edema associated with type 2 diabetes mellitus ([facility]); Abnormal CT of the abdomen 02/10/2024 Travel 02/03/2024 Telephone [facility] [address] [place], [place] [phone] Marline Richard MD Nurse Triage from Last 3 Months Immunizations Name Administration Dates Next Due Hep B, adult 12/14/2014,05/12/2014,02/15/2014 Influenza High-dose Quadriva lent Preservative Free 02/25/2023,12/19/2021,01/09/2021 Influenza injectable quadriv alent IIV4 with preservative 12/15/2018,12/30/2017,02/15/2017,12/14 Influenza injectable quadriv alent preservative free 12/25/2019 Influenza, IIV3, injectable 02/15/2014, 5 Influenza, Split (incl. rocio fied surface antigen) 12/11/2012 Influenza, Unspecified 12/19/2021,2020,02/15/2014,02/15 Moderna Covid-19 Vaccine 12+ 06/20/2020,05/24/19 21 Pfizer Covid-19 Vaccine 12+ 02/10/2024,,01/24/2021 Pneumococcal Conjugate PCV 20 12/19/2021 Pneumococcal Polysaccharide PPSV23 08/04/2012, RSV Bivalent 02/25/2023 Tdap 03/14/2023,06/10/2012 Tetanus toxoid, adsorbed 10/11/2006 Zoster, Recombinant 04/21/2019,12/24/2018 Zoster, live 03/18/2015 Family History Medical History Relation Name Comments Diabetes Brother Diabetes Father Heart attack Father Relation Name Status Comments Brother Father Social History Tobacco Use Types Packs/Day Years Used Date Smoking Tobacco: Former Cigarettes Passive Smoke Exposure: Past Smokeless Tobacco: Never Tobacco Cessation:Counseling Given: Not Answered Comments:Quit smoking cigarretes 20 yrs ago Alcohol Use Standard Drinks/Week [...] Orientation Straight 01/08/2022 10 :14 AM EDT Last Filed Vital Signs Vital Sign Reading Time Taken Comments Blood Pressure 109/56 04/30/2024 1:18 PM EST Pulse 68 04/30/2024 1:18 PM EST Temperature 36.2 ??C (97.1 ??F) 04/30/2024 1:18 PM ES T Respiratory Rate 16 04/30/2024 1:18 PM EST Oxygen Saturation 96% 04/30/2024 1:18 PM EST Inhaled Oxygen Concentration - - Weight 87.5 kg (193 lb) 04/30/2024 1:18 PM EST Height 175.3 cm (5' 9 ) 04/30/2024 1:18 PM EST Body Mass Index 28.5 04/30/2024 1:18 PM EST Plan of Treatment Upcoming Encounters Date Type Department Care Team (Late st Contact Info) Description 07/21/2024 1:00 PM EDT Office Visit [facility] [address] [place] [address] Leslie Aguilar, OD [address] [place] [address] Health Maintenance Due Date Last Done Comments CT Colonography 1955 Colonoscopy 1955 Colorectal Cancer Screening 1955 FIT DNA/Cologuard 1955 FIT 1955 FOBT 1955 Sigmoidoscopy 1955 Hepatitis C Screening 1973 Influenza Vaccine (#1) 2023 3, 12/19/2021, 12/19/2021, Additional history exists Diabetes: Hemoglobin A1C 05/10/2024 024, 08/02/2023, 07/15/2023, Additional history exists Lipid Panel 07/14/2024 07/15/2023, 06/0 11/2022, 07/17/2021, Additional history exists Alcohol/Substance Use Screening 08/01/2024 08/02/2023 Depression Screening 08/01/2024 08/02/2023, 08/02/19 Diabetes: Foot Exam 08/01/2024 08/02/2023 SDOH Screening 08/01/2024 08/02/2023 Eye Exam 01/20/2025 01/21/2024, 01/09, 01/21/2024, Additional history exists Tobacco Screening 02/13/2025 02/14/2024 DTaP/Tdap/Td Vaccines (3 - Td or Tdap) 03/14/2033 03/14/2023, 06/10/2012, 10/11/2006 Hepatitis B Vaccines Completed 12/14/2014, 05/12/2014, 02/15/2014 Zoster Vaccines Completed 04/21/2019, 12/09, 03/18/2015 Pneumococcal Vaccine: 50+ Years Completed 12/19/2021, 08/04/2012, 02/15/2005 RSV Patients and Patients Aged 60 years or older Completed 02/25/2023 COVID-19 Vaccine Completed 02/10/2024, 06/2023, 01/24/2021, Additional history exists HIB Vaccines Aged Out No longer eligi ble based on patient's age to complete this topic HPV Vaccines Aged Out No longer eligi ble based on patient's age to complete this topic Hepatitis A Vaccines Aged Out No long er eligible based on patient's age to complete this topic IPV Vaccines Aged Out No longer eligi ble based on patient's age to complete this topic Meningococcal Vaccine Aged Out No gabriela carolann eligible based on patient's age to complete this topic RSV under 20 months Aged Out No longe r eligible based on patient's age to complete this topic Rotavirus Vaccines Aged Out No longer eligible based on patient's age to complete this topic Goals Goal Patient Goal Type Associated Problems Recent Progress Patient-Stated? Author Blood Pressure < 140/90 Blood Pressure 109/56(2024 1:18 PM EST) No Deandre Cordon Hemoglobin A1c < 7 Result Component 7.8( 3:44 PM EST) No Deandre Cordon Procedures Procedure Name Priority Date/Time Associated Diagnosis Comments POCT GLUCOSE Routine 04/30/2024 1:20 PM EST Type 2 diabetes mellitus with chronic kidney disease, with long-term current use of insulin, unspecified CKD stage (CMS/HCC) POCT GLYCATED HEMOGLOBIN, TOTAL Routine 02/10/2024 3:44 PM EST Type 2 diabetes mellitus with chronic kidney disease, with long-term current use of insulin, unspecified CKD stage (CMS/HCC) POCT GLUCOSE Routine 02/10/2024 3:44 PM EST Type 2 diabetes mellitus with chronic kidney disease, with long-term current use of insulin, unspecified CKD stage (CMS/HCC) LIPID PANEL, STANDARD Routine 07/15/2023 2:42 PM EDT Type 2 diabetes mellitus with chronic kidney disease on chronic dialysis, with long-term current use of insulin (CMS/HCC) from Last 3 Months or Most Recently Relevant to Health Maintenance Results * (ABNORMAL) POCT glucose manually resulted (04/30/2024 1:20 PM EST) Only the most recent of2 resultswithin the time period is included. Pathologist [facility] Glucose Blood, POC 439(A) 60 - 200 mg/dL QC Media Lot # Comment:[id number] Lot# Expiration Date Comment:06/16/2024 Blood Capillary blood specimen / Unknown 04/30/2024 1:20 PM EST Iliana Oswald MD POINT OF CARE TEST ENTER/EDIT ORDERABLES Final Result * (ABNORMAL) POCT HGB A1C (02/10/2024 3:44 PM EST) Pathologist [facility] Hemoglobin A1C 7.8(A) 4.0 - 6.0 % QC Media Lot # [id number] Lot# Expiration Date [id number] Blood 02/10/2024 3:44 PM EST Marline Richard MD POINT OF CARE TEST ENTER/EDIT ORDERABLES Final Result * (ABNORMAL) Lipid Panel, Standard (07/15/2023 2:42 PM EDT) Pathologist [facility] Triglycerides 294(H) <150 mg/dL [facility] Comment:Desirable Triglyceri de: less than 150 mg/dLBorderline High Triglyceride 150-199 mg/dLHigh Triglyceride: 200-499 mg/dLVery High Triglyceride: greater than or equal to 5OO mg/dL Cholesterol 118 <200 mg/dL [facility] Comment:Desirable Cholestero l: less than 200 mg/dLBorderline High Cholesterol: 200-239 mg/dLHigh Cholesterol: greater than 239 mg/dL LDL Cholesterol Calculated 22 <100 mg/dL [facility] Comment:Desirable LDL: less than 100 mg/dLNear Optimal/Above Optimal LDL: 110- 129 mg/dLBorderline High LDL: 130-159 mg/dLHigh LDL: 160-189 mg/dLVery High LDL: greater than or equal to 190 mg/dL HDL Cholesterol 38(L) >40 mg/dL [facility] Comment:Desirable HDL: great er than 40 mg/dL Note: This HDL assay may give artificially low results in patients with liver disease. Blood Venous blood specimen / Unknown 07/15/2023 2:42 PM EDT 07/15/2023 4:10 PM EDT us Marline Richard MD LAB BLOOD ORDERABLES Final Res ult [facility] [address] [place] [address] [phone] from Last 3 Months or Most Recently Relevant to Health Maintenance Insurance [facility] Care Teams Admin Secretary Relationship Specialty Start Date End Date Marline Richard MD [address] [place] [address] PCP - General Family Medicine 04/21/20
--- OUTSIDE RECORDS SUMMARY | 2024-05-01 12:45 | XMS_ITS | Encounter Summary ---
Author Organization [employer] Address [address] [facility] [address] [place] [address] Care Team Providers Care Sharepoint Net Developer Name Role Phone Marline Richard MD Primary Care Provider [phone] Encounter Details Date Type Department Care Team ([facility] Contact Info) Description 01/23/2024 Orders Only [facility] [address] [place] [address] ProviderJose D MD Social History Tobacco Use Types Packs/Day Years [...] is your housing situation today? I have pedritolyssa alvarado 12/26/[address] you [...] Description 07/21/2024 1:00 PM EDT Office Visit [facility] OPTOM[facility] [address] [place] [address] JeffLeslie, OD [address] [place] [address] documented as of this encounter Goals Goal Patient Goal Type Associated Problems Recent Progress Patient-Stated? Author Blood Pressure < 140/90 Blood Pressure 109/56(2024 1:18 PM EST) No Deandre Cordon Hemoglobin A1c < 7 Result Component 7.8( 3:44 PM EST) No Deandre Cordon documented as of this encounter Procedures Procedure Name Priority Date/Time Associated Diagnosis Comments CT ABD AND PELVIS Routine 01/22/2024 2:03 PM EST documented in this encounter Results * CT ABD AND PELVIS (01/22/2024 2:03 PM EST) Anatomical Region Laterality Modality Body, Pelvis, Abdomen Computed T omography us Historical Provider MD FOLEY CT PROCEDURES Final R esult documented in this encounter Visit Diagnoses Not on filedocumented in this encounter Additional Health Concerns Assessment Noted Time PHQ-9 Depression Total Score: 0 08/02/19 24 1:47 PM EDT documented as of this encounter Care Teams Sharepoint Net Developer Relationship Specialty Start Date End Date Marline Richard MD [address] [place] [address] PCP - General Family Medicine 04/21/20 documented as of this encounter
--- OUTSIDE RECORDS SUMMARY | 2024-05-01 12:45 | XMS_ITS | Encounter Summary ---
Author Organization [facility] Address [address] [place] [phone] Phone Care Team Providers Care Exterminator Termite Name Role Phone Lizy Soria TECHNOLOGY INSTRUCTOR Primary Care Provider [phone] Encounter Details Date Type Department Care Team ([facility] st Contact Info) Description 04/27/2024 Treatment [facility] [address] [phone] Allen Koroma MD [address] [phone] Social History Tobacco Use Types [...] Dialysis Note - Allen Koroma MD - 04/27/2024 12:00 AM EST Patient: Kingsley Johnson : 1955 Note Type: Dialysis Rounds-Basic Service Date: 04/27/2024 This patient was personally seen for a basic visit as part of routine monthly dialysis care for end stage renal disease. Attending Human Resources Trainer: ALLEN KOROMA MD Dialysis Location: DIALYSIS Schedule: Shift: 1 HOME MEDICATIONS Current [facility] Outpatient Medications amLODIPine (NORVASC) 10 [...] 2 (two) times a day [facility] 100 Units under the skin Start Date: Current [facility] Allergies Allergen: MIRTAZAPINE Reaction: Other [...] (03/18/24) 136 (02/12/24) ANEMIA ASSESSMENT Hgb 10.8 (04/22/24) 10.8 (04/15/24) 11.5 (04/10/24) Hemoglobin 11.3 (09/09/23) 11.0 (09/02/23) 11.7 (08/26/23) [...] (03/18/24) Signed by: ALLEN KOROMA MD on 04/27/2024 at 08:27:21 AM documented in this encounter Plan of Treatment Not on file documented as of this encounter Visit Diagnoses Not on filedocumented in this encounter Care Teams Exterminator Termite Relationship Specialty Start Date End Date Lizy Soria NP [address] [place] [phone] PCP - General Nurse Practitioner 12/17/23 documented as of this encounter
--- OUTSIDE RECORDS SUMMARY | 2024-05-01 12:45 | XMS_ITS | Encounter Summary ---
Author Organization [facility] Address [address] [place] [phone] Phone Care Team Providers Care Slag Expander Name Role Phone Lizy Soria POWER SYSTEM ELECTRICAL ENGINEER Primary Care Provider [phone] Encounter Details Date Type Department Care Team ([facility] st Contact Info) Description 04/06/2024 Treatment [facility] [address] [address] Allen Koroma MD [address] [address] Social History Tobacco Use Types [...] Dialysis Note - Allen Koroma MD - 04/06/2024 12:00 AM EST Patient: Kingsley Johnson : 1955 Note Type: Dialysis Rounds-Basic Service Date: 04/06/2024 This patient was personally seen for a basic visit as part of routine monthly dialysis care for end stage renal disease. Attending Elevator Mechanic: ALLEN KOROMA MD Dialysis Location: [facility] Schedule: Shift: 1 HOME MEDICATIONS Current [facility] Outpatient Medications amLODIPine (NORVASC) 10 MG [...] 2 (two) times a day Start Date: [facility] Inject 100 Units under the skin Start Date: Current [facility] Allergies Allergen: MIRTAZAPINE Reaction: Other (see comments) ADEQUACY ASSESSMENT Kt/V, Natural Log 1.42 (03/18/24) 1.28 (02/12/24) 1.43 (01/15/24) UREA REDUCTION RATIO (%) 70 (03/18/24) 65 (02/12/24) 70 (01/15/24) % Urea Reduction 75 (09/13/23) 69 (09/09/23) 72 (08/21/23) BUN 66 (03/18/24) 68 (02/12/24) 63 (01/15/24) BUN Post Dialysis 20 (03/18/24) 24 (02/12/24) 19 (01/15/24) Creatinine 6.64 (03/18/24) 7.71 (02/12/24) 6.66 (01/15/24) Bicarbonate (CO2) 26 (03/18/24) 24 (02/12/24) 24 (01/15/24) Sodium 137 (03/18/24) 136 (02/12/24) 139 (01/15/24) ANEMIA ASSESSMENT Hgb 11.9 (04/01/24) 10.5 (03/18/24) 9.0 (03/08/24) Hemoglobin 11.3 (09/09/23) 11.0 (09/02/23) 11.7 (08/26/23) Iron Saturation (TSat) 19 (03/18/24) 55 (02/12/24) 68 (01/15/24) Ferritin 756 (03/18/24) 1,110 (02/12/24) 1,019 (01/15/24) Iron 40 (03/18/24) 98 (02/12/24) 128 (01/15/24) TIBC 211 (03/18/24) 179 (02/12/24) 188 (01/15/24) MCV 99.4 (03/18/24) 95.6 (02/12/24) 97.4 (01/15/24) Vitamin B-12 624 (08/19/23) Platelets 202 (03/18/24) 158 (02/12/24) 184 (01/15/24) BMM ASSESSMENT Calcium, Adjusted Total 9.1 03/18/24 8.4 02/12/24 8.9 01/15/24 Calcium 9.0 03/18/24 8.1 02/12/24 8.6 01/15/24 Corrected Calcium 8.9 09/09/23 9.1 08/19/23 Phosphorus, Serum 5.3 03/18/24 4.8 02/12/24 3.8 01/15/24 Phosphorus 5.7 09/09/23 5.0 08/19/23 Ca*PO4 47.7 03/18/24 38.9 02/12/24 32.7 01/15/24 Calcium Phosphorus Product 50 09/09/23 44 08/19/23 PTH, Intact 346 03/18/24 301 01/15/24 PTH 378 09/09/23 321 08/19/23 Vitamin D, 25-OH, Total 36.9 08/19/23 Magnesium 1.6 03/18/24 1.6 02/12/24 1.7 01/15/24 Alkaline Phosphatase 171 03/18/24 166 02/12/24 152 01/15/24 Aluminum 3 03/18/24 <5 08/19/23 NUTRITION ASSESSMENT Albumin 3.9 03/18/24 3.6 02/12/24 3.6 01/15/24 Potassium 4.6 03/18/24 4.5 02/12/24 5.0 01/15/24 Hemoglobin A1C 7.5 03/18/24 6.4 08/19/23 ADDITIONAL LABS White Blood Cells 8.7 (03/18/24) 4.9 (02/12/24) 7.8 (01/15/24) WBC 7.28 (09/09/23) 7.98 (08/19/23) Cholesterol 86 (03/18/24) HDL 28 (03/18/24) LDL-Calc 28 (03/18/24) Triglycerides 150 (03/18/24) Hep B Surface Antibody 362 (03/18/24) 336 (02/19/24) Hepatitis B Surface Ab 547 (08/19/23) Uric Acid 6.0 (03/18/24) Signed by: ALLEN KOROMA MD on 04/06/2024 at 08:07:49 AM documented in this encounter Plan of Treatment Not on file documented as of this encounter Visit Diagnoses Not on filedocumented in this encounter Care Teams Slag Expander Relationship Specialty Start Date End Date Lizy Soria NP [address] [place] [id number] PCP - General Nurse Practitioner 12/17/23 documented as of this encounter
--- OUTSIDE RECORDS SUMMARY | 2024-05-01 12:45 | XMS_ITS | Encounter Summary ---
Author Organization [employer] Address [address] [facility] 7t [place] [address] Care Team Providers Care Fancy Packer Name Role Phone Marline Richard MD Primary Care Provider [phone] Reason for Visit * Reason Onset Date Comments Hospital Follow-up 10/05/2022 Encounter Details Date Type Department Care Team ([facility] st Contact Info) Description 10/05/2022 Telephone [facility] [address] [place] [address] Marline Richard MD [address] [place] [address] Hospital Follow-up Social History Tobacco Use Types Packs/Day Years [...] encounter Miscellaneous Notes * Telephone Encounter - Filomena Leonel - 10/05/2022 2:00 PM EDT Tc from pt requesting a HDF appt. Pt was admitted at [facility] on 09/28/22 and discharged on 10/02/22. Pt was diagnosed with hypertensive emergency documented in this encounter Plan of Treatment Upcoming Encounters Date Type Department Care Team (Late st Contact Info) Description 07/21/2024 1:00 PM EDT Office Visit [facility] [address] [place], [place] [id number] Leslie Aguilar, OD [address] [place] [address] documented as of this encounter Visit Diagnoses Not on filedocumented in this encounter Additional Health Concerns Assessment Noted Time PHQ-9 Depression Total Score: 5 04/20/19 23 1:08 PM EST documented as of this encounter Care Teams Fancy Packer Relationship Specialty Start Date End Date Marline Richard MD [address] [place] [address] PCP - General Family Medicine 04/21/20 documented as of this encounter
--- OUTSIDE RECORDS SUMMARY | 2024-05-01 12:45 | XMS_ITS | Encounter Summary ---
Author Organization [facility] Address [address] [place] [phone] Phone Care Team Providers Care Machining Manager Name Role Phone Lizy Soria SKEIN YARN DYER Primary Care Provider [phone] Encounter Details Date Type Department Care Team ([facility] st Contact Info) Description 04/13/2024 Treatment [facility] [address] [address] Allen Koroma MD [address] [address] Social History Tobacco Use Types [...] Dialysis Note - Allen Koroma MD - 04/13/2024 12:00 AM EST Patient: Kingsley Johnson : 1955 Note Type: Dialysis Rounds-Comp Service Date: 04/13/2024 This patient was personally seen for a complete visit as part of routine monthly dialysis care for end stage renal disease. Attending Automatic Corn Grinder Operator: ALLEN KOROMA MD Dialysis Location: [facility] Schedule: Shift: 1 OVERVIEW Patient is stable. HOME MEDICATIONS Medications reviewed. Current [facility] Outpatient Medications amLODIPine (NORVASC) 10 MG [...] 2 (two) times a day Start Date: [facility] Inject 100 Units under the skin Start Date: Current [facility] Allergies Allergen: MIRTAZAPINE Reaction: Other (see comments) BP AND FLUID ASSESSMENT Acceptable blood pressure. Fluid status acceptable. ADEQUACY ASSESSMENT Target met. Prescription compliance acceptable. Continue with greater than 3x more frequent dialysis prescription. Kt/V, Natural Log 1.42 (03/18/24) 1.28 (02/12/24) [...] Sodium 137 (03/18/24) 136 (02/12/24) 139 (01/15/24) ACCESS ASSESSMENT Vascular access examined. ANEMIA ASSESSMENT PHAN adjusted per protocol. Iron adjusted per protocol. Hgb 11.5 (04/10/24) 11.8 (04/08/24) 11.9 (04/01/24) Hemoglobin 11.3 (09/09/23) 11.0 (09/02/23) 11.7 (08/26/23) Iron Saturation (TSat) 19 (03/18/24) 55 (02/12/24) 68 (01/15/24) Ferritin 756 (03/18/24) 1,110 (02/12/24) 1,019 (01/15/24) Iron 40 (03/18/24) 98 (02/12/24) 128 (01/15/24) TIBC 211 (03/18/24) 179 (02/12/24) 188 (01/15/24) MCV 99.4 (03/18/24) 95.6 (02/12/24) 97.4 (01/15/24) Vitamin B-12 624 (08/19/23) Platelets 202 (03/18/24) 158 (02/12/24) 184 (01/15/24) BMM ASSESSMENT Bone and mineral metabolism parameters reviewed. Calcium, Adjusted Total 9.1 03/18/24 8.4 02/12/24 [...] 3 03/18/24 <5 08/19/23 NUTRITION ASSESSMENT Albumin at goal. Albumin 3.9 03/18/24 3.6 02/12/24 3.6 01/15/24 Potassium 4.6 03/18/24 4.5 02/12/24 5.0 01/15/24 Hemoglobin A1C 7.5 03/18/24 6.4 08/19/23 PHYSICAL EXAM Exam not performed. ADDITIONAL LABS White Blood Cells 8.7 (03/18/24) 4.9 (02/12/24) 7.8 (01/15/24) WBC 7.28 (09/09/23) 7.98 (08/19/23) Cholesterol 86 (03/18/24) HDL 28 (03/18/24) LDL-Calc 28 (03/18/24) Triglycerides 150 (03/18/24) Hep B Surface Antibody 362 (03/18/24) 336 (02/19/24) Hepatitis B Surface Ab 547 (08/19/23) Uric Acid 6.0 (03/18/24) Signed by: ALLEN KOROMA MD on 04/13/2024 at 08:41:59 AM documented in this encounter Plan of Treatment Not on file documented as of this encounter Visit Diagnoses Not on filedocumented in this encounter Care Teams Machining Manager Relationship Specialty Start Date End Date Lizy Soria NP [address] [place] [address] PCP - General Nurse Practitioner 12/17/23 documented as of this encounter
--- OUTSIDE RECORDS SUMMARY | 2024-05-01 12:45 | XMS_ITS | Encounter Summary ---
Author Organization [employer] Address [address] [facility] 7t [place] [address] Care Team Providers Care Park Naturalist Name Role Phone Marline Richard MD Primary Care Provider [phone] Encounter Details Date Type Department Care Team ([facility] Contact Info) Description 12/12/2022 Orders Only [facility] MEDICINE [address] [place] [address] Marline Richard MD [address] [place] [address] Social History Tobacco Use Types Packs/Day Years [...] Upcoming Encounters Date Type Department Care Team ([facility] Contact Info) Description 07/21/2024 1:00 PM EDT Office Visit [facility] OPTOMETRY [address] [place] [address] JeffLeslie henry, OD [address] [place] [address] documented as of this encounter Goals Goal [...] documented as of this encounter Care Teams Park Naturalist Relationship Specialty Start Date End Date Marline Richard MD [address] [place] [address] PCP - General Family Medicine 04/21/20 documented as of this encounter
--- OUTSIDE RECORDS SUMMARY | 2024-05-01 12:45 | XMS_ITS | Encounter Summary ---
Author Organization [employer] Address [address] [facility] [address] [place] [address] Care Team Providers Care Tailer Out Name Role Phone Marline Richard MD Primary Care Provider [phone] Reason for Visit * Reason Onset Date Comments Chart Prep 04/15/2024 Encounter Details Date Type Department Care Team ([facility] st Contact Info) Description 04/15/2024 Telephone [facility] MEDICINE [address] [place] [address] Colt Mg [place] Chart Prep Social History Tobacco Use Types Packs/Day Years [...] encounter Miscellaneous Notes * Telephone Encounter - Colt Mg [place] - 04/15/2024 2:40 PM EST Chart Prep Labs: done Images: done Vaccines due: yes Referrals: Booked appts for Ophtha and GS Screenings: colonoscopy Overdue care gaps: Glucose, EKG need for preop documented in this encounter Plan of Treatment Upcoming Encounters Date Type Department Care Team (Late st Contact Info) Description 07/21/2024 1:00 PM EDT Office Visit [facility] OPTOMETRY [address] [place] [address] Leslie Aguilar, OD [address] [place] [address] documented as of this encounter Goals Goal [...] documented as of this encounter Care Teams Tailer Out Relationship Specialty Start Date End Date Marline Richard MD [address] [place] [address] PCP - General Family Medicine 04/21/20 documented as of this encounter
--- OUTSIDE RECORDS SUMMARY | 2024-05-01 12:45 | XMS_ITS | Encounter Summary ---
Author Organization [employer] Address [address] [facility] 7t [place] [address] Care Team Providers Care Clinic Specialist Name Role Phone Marline Richard MD Primary Care Provider [phone] Encounter Details Date Type Department Care Team (Late Contact Info) Description 10/10/2022 Orders Only [facility] MEDICINE 230 [place] [address] Marline Richard MD [address] [place] [address] Essential hypertension (Primary Dx) Social History Tobacco Use Types [...] 07/21/2024 1:00 PM EDT Office Visit [facility] OPTOMETRY [address] [place] [address] Leslie Aguilar, OD 230 [place] [address] documented as of this encounter Visit Diagnoses Diagnosis Essential hypertension- Primary Unspecified essential hypertension documented in this encounter Additional Health Concerns Assessment Noted Time PHQ-9 Depression Total Score: 5 04/20/19 23 1:08 PM EST documented as of this encounter Care Teams Clinic Specialist Relationship Specialty Start Date End Date Marline Richard MD [address] [place] [address] PCP - General Family Medicine 04/21/20 documented as of this encounter
--- OUTSIDE RECORDS SUMMARY | 2024-05-01 12:45 | XMS_ITS | Encounter Summary ---
Author Organization [employer] Address [address] [facility] [address] [place] [address] Care Team Providers Care Photogrammetric Tech Name Role Phone Marline Richard MD Primary Care Provider [phone] Reason for Visit * Reason Onset Date Comments CGM Sensor PA 03/17/2024 Encounter Details Date Type Department Care Team ([facility] st Contact Info) Description 03/17/2024 Telephone [facility] MEDICINE [address] [place] [address] Rosa Barrios, RN [address] [place] [address] CGM Sensor PA Social History Tobacco Use Types Packs/Day Years [...] encounter Miscellaneous Notes * Telephone Encounter - Rosa Barrios RN - 04/01/2024 9:55 AM EST RN called pharmacy who confirms CGM sensors are going thru and will be refilled today. TC placed topatient [phone] to inform patient CGM sensors will be ready for p/u today. Patient verbalized understanding. Patient to f/u PRN. * Telephone Encounter - Rosa Barrios RN - 03/17/2024 3:57 PM EST Continuous Glucose Monitor Prior Authorization Documentation: CGM PA initiated for: Freestyle Daniel 2 sensors Insurance: CCA PA form completed and faxed to [phone]. Patient's preferred pharmacy: [facility] 230 [facility] 230 [facility] [phone] CGM PA should be approved by: 03/31/2023 Kingsley Rivero will not be scheduled with res team nurses for CGM placement/teaching as this is a re-certification. documented in this encounter Plan of Treatment Upcoming Encounters Date Type Department Care Team (Late st Contact Info) Description 07/21/2024 1:00 PM EDT Office Visit [facility] OPTOMETRY [address] [place] [address] JeffLeslie henry, OD [address] [place] [address] documented as of this encounter Goals Goal [...] documented as of this encounter Care Teams Photogrammetric Tech Relationship Specialty Start Date End Date Marline Richard MD [address] [place] [address] PCP - General Family Medicine 04/21/20 documented as of this encounter
--- OUTSIDE RECORDS SUMMARY | 2024-05-01 12:45 | XMS_ITS | Encounter Summary ---
Author Organization [employer] Address [address] [place] [address] Care Team Providers Care Training Intern Name Role Phone Marline Richard MD Primary Care Provider [phone] Encounter Details Date Type Department Care Team (Latest Contact Info) Description 04/30/2024 Travel Social History Tobacco Use Types Packs/Day Years [...] Description 07/21/2024 1:00 PM EDT Office Visit [facility] OPTOMETRY [address] [place] [address] Jeff, Leslie, OD [address] [place] [address] documented as of this encounter Goals Goal [...] documented as of this encounter Care Teams Training Intern Relationship Specialty Start Date End Date Marline Richard MD 230 [place], [place] [phone] PCP - General Family Medicine 04/21/20 documented as of this encounter
--- OUTSIDE RECORDS SUMMARY | 2024-05-01 12:45 | XMS_ITS | Clinical Summary ---
Author Organization [facility] Address [address] [place] [phone] Phone Care Team Providers Care Cork Cutter Name Role Phone Marline Richard MD Primary Care Provider [phone] Allergies No known active allergies Medications No known medications Active Problems No known active problems Immunizations Name Administration Dates Next Due Moderna SARS-CoV-2 COVID-19, mRNA, LNP-S, preservative free 06/20/2020,05/23/2020 Pfizer SARS-CoV-2 COVID-19, mRNA, LNP-S, preservative free 01/24/2021 Surgical History Surgery Date Site/Laterality Comments OTHER SURGICAL HISTORY 05/21/2023 Left PROCEDURE: HISTORY OTHER; COMMENT: Arm basilic vein transportation AV fistula creation Medical History Medical History Date Comments Depressive disorder DX:Depressiv e disorder Diabetes mellitus type 2, co ntrolled, with complications (CMS/HCC) DX:Diabetes mellitus type 2, controlled, with complications (HCC) Essential hypertension DX:Essent ial hypertension Hyperlipidemia DX:Hyperlipidemi a Social History Tobacco Use Types Packs/Day Years Used Date Smoking Tobacco: Former Smokeless Tobacco: Never Alcohol Use Standard Drinks/Week Comments Not Currently 0 (1 standard drink = 0.6 oz pur e alcohol) Sex and Gender Information Value Date Recorded Sex Assigned at Male 01/22/2024 11:15 AM EST Legal Sex Male 4:34 AM EST Gender Identity Male 01/22/2024 11:15 AM EST Sexual Orientation Straight 01/22/2024 11 :15 AM EST Obstetrics History Last Filed Vital Signs Vital Sign Reading Time Taken Comments Blood Pressure 143/46 01/22/2024 10:19 AM EST Pulse 62 01/22/2024 10:19 AM EST Temperature 36.5 ??C (97.7 ??F) 01/22/2024 10:[address] Respiratory Rate 19 01/22/2024 10:19 AM EST Oxygen Saturation 97% 01/22/2024 10:19 AM EST Inhaled Oxygen Concentration - - Weight 83.9 kg (185 lb) 01/22/2024 10:26 AM EST Height 172.7 cm (5' 8 ) 01/22/2024 10:26 AM EST Body Mass Index 28.13 01/22/2024 10:26 AM EST Plan of Treatment Health Maintenance Due Date Last Done Comments Diabetes: Annual Foot Exam 1965 Diabetes: Annual Retina Eye Exam 1965 Abdominal Aortic Aneurysm (AAA) Screen 02/17/2022 Colorectal Cancer Screening: Colonoscopy 02/17/2022 Falls Risk Assessment 02/17/2022 Hepatitis C Screening 02/17/2022 Medicare Annual Wellness Visit 02/17/2022 Social Influencers of Health Screening 02/17/2022 COVID-19 Vaccine ( season) 2023 03/14/2023, 01/24/2021, 06/20/2020, Additional history exists Influenza Vaccine (#1) 2023 , 12/19/2021, 01/09/2021, Additional history exists Diabetes: Blood Sugar Control Test (HGBA1C) 02/02/2024 08/02/2023 Depression Screening 08/01/2024 08/02/2023 Hypertension/CHF/CAD Annual BMP Blood Test 01/21/2025 01/22/2024, 10/22/2023 Cholesterol Screening (Lipid Panel) 07/14/2028 07/15/2023 DTaP,Tdap,and Td Vaccines (3 - Td or Tdap) 03/14/2033 03/14/2023, 06/10/2012 Hepatitis B Vaccines Completed 12/14/2014, 05/12/2014, 02/15/2014 Zoster Vaccines Completed 04/21/2019, 12/09, 03/18/2015 Pneumococcal Vaccine: 50+ Years Completed 12/19/2021, 08/04/2012, 02/15/2005 RSV Immunization Patients 60+ Years Old Completed 02/25/2023 HIB Vaccines Aged Out No longer eligi [...] on patient's age to complete this topic MMR Vaccines Aged Out No longer eligi ble based on patient's age to complete this topic Meningococcal ACWY Vaccine Aged Out N o longer eligible based on patient's age to complete this topic Meningococcal B Vacine Aged Out No lo nger eligible based on patient's age to complete this topic RSV Immunization Patients Under 20 months Aged Out No longer eligible based on patient's age to complete this topic Varicella Vaccines Aged Out No longer eligible based on patient's age to complete this topic Procedures Procedure Name Priority Date/Time Associated Diagnosis Comments COMPREHENSIVE METABOLIC PANEL STAT 01/22/2024 10:24 AM EST from Last 3 Months or Most Recently Relevant to Health Maintenance Results * (ABNORMAL) Comprehensive metabolic panel (01/22/2024 10:24 AM EST) Sodium 137 133 - 145 mmol/L LAB CHEMISTRY METHOD 01/22/2024 11:37 AM [facility] Potassium 4.2 3.5 - 5.5 mmol/L LAB CHEMISTRY METHOD 01/22/2024 11:37 AM [facility] Comment:Hemolysis present Chloride 101 96 - 110 mmol/L LAB CHEMISTRY METHOD 01/22/2024 11:37 AM [facility] CO2 31 21 - 32 mmol/L LAB CHEMISTRY METHOD 01/22/2024 11:37 AM [facility] Anion Gap 5 3 - 11 LAB CHEMISTRY METHOD 01/22/2024 11:37 AM [facility] Glucose 121(H) 70 - 100 mg/dL LAB CHEMISTRY METHOD 01/22/2024 11:37 AM [facility] BUN 24 5 - 25 mg/dL LAB CHEMISTRY METHOD 01/22/2024 11:37 AM [facility] Creatinine 3.26(H) 0.70 - 1.30 mg/dL LAB CHEMISTRY METHOD 01/22/2024 11:37 AM [facility] eGFR 20(L) >=60 mL/min/1. 73m2 LAB CHEMISTRY METHOD 01/22/2024 11:37 AM [facility] Comment:Calculation based on the??Chronic Kidney Disease Epidemiology Collaboration (CKD-EPI) equation refit??without adjustment for race. BUN/Creatinine Ratio 7.4 LAB CHEMISTRY METHOD 01/22/2024 11:37 AM [facility] Calcium 9.1 8.5 - 10.5 mg/dL LAB CHEMISTRY METHOD 01/22/2024 11:37 AM [facility] AST (SGOT) 37 10 - 42 unit/L LAB CHEMISTRY METHOD 01/22/2024 11:37 AM [facility] Comment:Hemolysis present ALT (SGPT) 31 10 - 60 unit/L LAB CHEMISTRY METHOD 01/22/2024 11:37 AM [facility] Alkaline Phosphatase 147(H) 42 - 121 unit/L LAB CHEMISTRY METHOD 01/22/2024 11:37 AM [facility] Total Protein 6.8 6.0 - 8.0 g/dL LAB CHEMISTRY METHOD 01/22/2024 11:37 AM [facility] Albumin 3.2 3.2 - 5.0 g/dL LAB CHEMISTRY METHOD 01/22/2024 11:37 AM [facility] Total Bilirubin 0.6 0.0 - 1.4 mg/dL LAB CHEMISTRY METHOD 01/22/2024 11:37 AM [facility] Blood Venous blood specimen / Unknown Venipuncture / Unknown 01/22/2024 10:24 AM EST 01/22/2024 10:59 AM EST us Kelsey DEAN LAB BLOOD ORDERABLES Final Re sult [facility] [address] [place] [address], from Last 3 Months or Most Recently Relevant to Health Maintenance Insurance [employer] MEDICARE Member Subscriber Plan / Payer (Ef fective 2022-Present) Name:Kingsley Rivero Relation to Subscriber:Self Name:Kingsley Rivero Payer ID:[id number] Group ID:[id number] Type:Not on file Address: [place] [address] [address] [id number] Care Teams Cork Cutter Relationship Specialty Start Date End Date Marline Richard MD [address] [place] [address] PCP - General Search Optimization Analyst 01/22/24
--- OUTSIDE RECORDS SUMMARY | 2024-05-01 12:45 | XMS_ITS | Encounter Summary ---
Author Organization [employer] Address [address] [facility] [address] [place] [address] Care Team Providers Care Datastage Architect Name Role Phone Marline Richard MD Primary Care Provider [phone] Reason for Referral * Cardiology (Routine) - Pending Review Specialty Diagnoses / Procedures Referred By Contac t Referred To Contact Diagnoses Preop examination Procedures ECG 12 lead Iliana Oswald MD [address] [place] [address] Phone: tel: fax: Referral ID Status Reason Start Date Expiration Date V isits Requested Visits Authorized [id number] Pending Review 04/30/2024 04/30/2025 1 1 Reason for Visit * Reason Comments Pre-op Exam Left eye Encounter Details Date Type Department Care Team ([facility] st Contact Info) Description 04/30/2024 1:30 PM EST Office Visit [facility] MED [facility] PEDS [address], [place] [phone] Iliana Oswald MD [address], [place] [phone] Preop examination (Primary Dx); Type 2 diabetes [...] AM EDT documented as of this encounter Last Filed Vital Signs Vital Sign Reading [...] Mass Index 28.5 04/30/2024 1:18 PM EST documented in this encounter Plan of Treatment Upcoming Encounters Date Type Department Care Team (Late st Contact Info) Description 07/21/2024 1:00 PM EDT Office Visit [facility] OPTOMETRY [address] [place] [address] JeffLeslie, OD [address] [place] [address] Scheduled Orders Name Type Priority Associated Diagnoses Orde r Schedule ECG 12 lead ECG Routine Preop examination Ordered: 04/30/2024 documented as of this encounter Goals Goal [...] current use of insulin, unspecified CKD stage ([facility]) documented in this encounter Results * (ABNORMAL) POCT glucose manually resulted (04/30/2024 1:20 PM EST) Pathologist [facility] Glucose Blood, POC 439(A) 60 - 200 mg/dL QC Media Lot # Comment:[id number] Lot# Expiration Date Comment:06/16/2024 Blood Capillary blood specimen / Unknown 04/30/2024 1:20 PM EST us Iliana Oswald MD POINT OF CARE TEST ENTER/EDIT ORDERABLES Final Result documented in this encounter Visit Diagnoses Diagnosis Preop examination- Primary Unspecified pre-operative examination Type 2 diabetes mellitus with chronic kidney disease, with long-term current use of insulin, unspecified CKD stage (CMS/HCC) documented in this encounter Additional Health Concerns Assessment Noted Time PHQ-9 Depression Total Score: 0 08/02/19 24 1:47 PM EDT documented as of this encounter Care Teams Datastage Architect Relationship Specialty Start Date End Date Marline Richard MD [address] [place] [address] PCP - General Family Medicine 04/21/20 documented as of this encounter
--- OUTSIDE RECORDS SUMMARY | 2024-05-01 12:45 | XMS_ITS | Data Portability ---
Author Organization [employer] Address [address] [place] [address] Care Team Providers Care Thread Inspector Name Role Phone [facility] OTHER [phone] HIM CCA OTHER Assessment Encounter Date Assessment Date Assessment LastModified by Organization Details LastModified Time 03/22/2022 03/22/2022 I have reviewed and agree with the Assessment and Plan as documented by the Appraiser Timber. I provided real-time medical direction via phone for this encounter, and was available for additional phone based assistance as needed. Pt s/p partial amputation of L foot seen for post op pain and having run out of his rx for percocet. Reports he called his surgeons office and reports they stated they would not prescribed additional opioid pain medication. Has close f/u with them. Offered and accepting of dose of IM toradol. AVSS And well appearing with no signs of progressive soft tissue infection per report. pallfather Not available 03/27/2022 10:08:47 02/19/2023 02/19/2023 service called f or cough found 67 yom with ESRD on HD c/o 5 day cough, nasal congestion overal sx improving compared to yesterday VSS #URI continue supportive care at home and encourage recovery otherwise return to primary team [email or web address] Not available 02/19/2023 23:36:00 02/03/2024 02/03/2024 I provided real -time medical direction via phone for this encounter and was available for additional phone-based assistance as needed. I have reviewed and agree with the Assessment and Plan as documented by the Appraiser Timber. Patient given the opportunity to ask questions. Our service contacted for an assessment of: Feeling unwell after hemodialysis As per above, patient usually on a Saturday schedule for hemodialysis. States that his regimen and regular scheduled dates were changed to this week on Saturday, Saturday, Saturday to accommodate the . He does state that fluid was removed but he does not know how much. He states that occasionally he develops lightheadedness after hemodialysis session and calls this service for evaluation. He is found to have orthostasis. He states that volume was removed but he does not know how much. He denies nausea or vomiting. He denies chest pain, shortness of breath, dyspnea on exertion. He states his p.o. intake is normal for him. He denies any abdominal pain. He denies any urinary symptoms but is anuric at baseline now. Per disposal man on the scene, vital signs show that he is orthostatic. He is not tachycardic at baseline. His mentation is within normal limits. Impression implant: Likely hypotension related to fluid shifts after change in hemodialysis schedule. Asked him to follow-up tomorrow with his marketing and promotions manager at his hemodialysis center. Encourage p.o. intake. Patient denies feeling unsafe at home. Patient does not live at home alone. Allergies: Reviewed PCP f/u: We discussed the diagnostic uncertainty of home visits and the risk associated with this. In this case, the patient and I felt this to be an acceptable and reasonable amount of risk given the benefit of avoiding an ED visit. We discussed the need to seek care urgently/emergentl y in the setting of any new or worsening serious symptoms, particularly fever chills [email or web address] Not available 02/03/2024 20:08:06 Plan of Treatment Reminders Order Date Submit Date Provider Last Modified By Organization Details Last Modified Time Details Appointments None recorded. Lab None recorded. Referral None recorded. Procedures None recorded. Surgeries None recorded. Imaging None recorded. Medication Orders ketorolac 30 mg/mL (1 mL) injection solution 2022 023 pallfather Not available 3 11:14:20 Patient TargetsNo targets recorded. Patient InstructionsNo instructions recorded. Reason for Referral None Reported. Medical Equipment None Reported. Allergies Allergen ID Allergen Name Allergen Category Reaction Reaction Severity Criticality Documentation Date Start Date Code Code System Note Provider Name and Address Organization Details Recorded Time 44727 metformin medicatio n Not available Not available Not available 02/03/2024 6809 RxNorm Not Available [facility] - production 4 13:24:19 87520 mirtazapi ne medicatio n Not available Not available Not available 02/03/2024 01628 RxNorm Not Available [facility] - production 13:24:19 Medications Name Sig Start Date Stop Date Status Note LastModified by Organization Details LastModified Time medbox status USE DIRECTED active Not Available Not Available No t Available losartan 50 mg tablet TAKE 2 TABLETS BY MOUTH ONCE DAILY IN THE MORNING active Not Available Not Available Not Available furosemide 40 mg tablet TAKE 1 TABLET BY MOUTH TWICE DAILY IN THE MORNING AND IN THE EVENING active Not Available Not Available No t Available atorvastatin 80 mg tablet TAKE 1 TABLET BY MOUTH AT BEDTIME active Not Available Not Available No t Available glipizide 10 mg tablet TAKE 2 TABLETS BY MOUTH TWICE DAILY IN THE MORNING AND EVENING WITH MEALS active Not Available Not Available N ot Available metoprolol succinate ER 100 mg tablet,exten ded release 24 hr TAKE 1 TABLET BY MOUTH EVERY MORNING active Not Available Not Available No t Available hydralazine 25 mg tablet TAKE 1 TABLET BY MOUTH TWICE DAILY IN THE MORNING AND IN THE EVENING WITH FOOD active Not Available Not Available No t Available amlodipine 5 mg tablet TAKE 1 TABLET BY MOUTH EVERY EVENING active Not Available Not Available No t Available doxycycline monohydrate 100 mg tablet TAKE 1 TABLET BY MOUTH TWICE DAILY UNTIL FINISHED active Not Available Not Available No t Available Muscle Rub 15 %-10 % topical cream APPLY TO THE AFFECTED AREA(S) (HIP LEFT) 2-4 TIMES PER WEEK active Not Available Not Available No t Available spironolacto ne 25 mg tablet TAKE 1 TABLET BY MOUTH EVERY MORNING active Not Available Not Available No t Available oxycodone-ac etaminophen 5 mg-325 mg tablet TAKE 1 TABLET BY MOUTH EVERY 8 HOURS NEEDED FOR SEVERE PAIN active Not Available Not Available Not Available isosorbide mononitrate ER 60 mg tablet,exten ded release 24 hr TAKE 1 TABLET BY MOUTH EVERY MORNING active Not Available Not Available No t Available tamsulosin 0.4 mg capsule TAKE 1 CAPSULE BY MOUTH EVERY EVENING 30 MINUTOS DESPUES DE LA FRANCHESKA active Not Available Not Available No t Available amlodipine 10 mg tablet TAKE 1 TABLET BY MOUTH EVERY EVENING active Not Available Not Available No t Available benzonatate 100 mg capsule TAKE 1 CAPSULE BY MOUTH THREE TIMES DAILY NEEDED FOR COUGH active Not Available Not Available No t Available doxycycline monohydrate 100 mg capsule TAKE 1 CAPSULE BY MOUTH TWICE DAILY UNTIL FINISHED active Not Available Not Available No t Available cephalexin 500 mg capsule TAKE 1 TABLET BY MOUTH TWICE DAILY UNTIL FINISHED active Not Available Not Available No t Available metformin 1,000 mg tablet TAKE 1 TABLET BY MOUTH TWICE DAILY IN THE MORNING AND IN THE EVENING active Not Available Not Available No t Available docusate sodium 100 mg capsule TAKE 1 CAPSULE BY MOUTH AT BEDTIME active Not Available Not Available No t Available hydralazine 50 mg tablet TAKE 2 TABLETS BY MOUTH THREE TIMES DAILY active Not Available Not Available Not Available mupirocin 2 % topical ointment APPLY TO THE AFFECTED AREA(S) (TOE LEFT) TWICE DAILY FOR 10 DAYS active Not Available Not Available Not Available gabapentin 100 mg capsule TAKE 1 CAPSULE BY MOUTH THREE TIMES DAILY IN THE MORNING, EVENING, AND BEDTIME active Not Available Not Available Not Available cefdinir 300 mg capsule TAKE 1 CAPSULE BY MOUTH EVERY TWELVE HOURS UNTIL FINISHED active Not Available Not Available No t Available fluticasone propionate 50 mcg/actuatio n nasal spray,suspen parmjit USE 2 SPRAYS IN EACH NOSTRIL EVERY MORNING NEEDED active Not Available Not Available No t Available sertraline 50 mg tablet TAKE 1 TABLET BY MOUTH EVERY MORNING active Not Available Not Available No t Available amoxicillin 875 mg-potassium clavulanate 125 mg tablet TAKE 1 TABLET BY MOUTH TWICE DAILY UNTIL FINISHED active Not Available Not Available No t Available oxycodone 5 mg tablet TAKE 1 TABLET BY MOUTH EVERY 6 HOURS NEEDED FOR PAIN active Not Available Not Available No t Available povidone-iod ine 10 % topical solution APPLY TOPICALLY TO TOES DIRECTED active Not Available Not Available No t Available Januvia 100 mg tablet TAKE 1 TABLET BY MOUTH EVERY MORNING active Not Available Not Available No t Available FreeStyle Lite Strips TEST BLOOD SUGAR THREE TIMES DAILY active Not Available Not Available Not Available FreeStyle [place] Lite kit USE TO TEST BLOOD SUGAR THREE TIMES DAILY AND DIRECTED active Not Available Not Available Not Available TRUEplus Lancets 33 gauge TEST BLOOD SUGAR THREE TIMES DAILY active Not Available Not Available Not Available Tresiba FlexTouch U-100 insulin 100 unit/mL (3 mL) subcutaneous pen INJECT 25 UNITS SUBCUTANEOU SLY ONCE DAILY active Not Available Not Available No t Available Vitals Date Recorded Oxygen saturation Oxygen saturation in Arterial blood by Pulse oximetry Body temperature Heart rate Respiratory rate Systolic blood pressure Diastolic blood pressure Provider Name and Address Organization Details Last Updated DateTime 3 99 % 99 % 98.4 [degF] 79 /min 16 /min 124 mm[Hg] 55 mm[Hg] Not Available [facility] - production 3 19:28:13 Date Recorded Oxygen saturation Oxygen saturation in Arterial blood by Pulse oximetry Body temperature Respiratory rate Heart rate Systolic blood pressure Diastolic blood pressure Provider Name and Address Organization Details Last Updated DateTime 4 99 % 99 % 99.3 [degF] 18 /min 58 /min 100 mm[Hg] 55 mm[Hg] Not Available [facility] - production 4 15:13:38 Date Recorded Respiratory rate Body temperature Oxygen saturation Oxygen saturation in Arterial blood by Pulse oximetry Heart rate Systolic blood pressure Diastolic blood pressure Provider Name and Address Organization Details Last Updated DateTime 3 18 /min 98.3 [degF] 98 % 98 % 86 /min 148 mm[Hg] 88 mm[Hg] Not Available [facility] - production 3 11:12:30 Social History None recorded. Functional Status None recorded. Mental Status None recorded. Family History Nothing Reported. Medical History No medical history recorded. Past Encounters Encounter ID Performer Location Encounter Start Date Encounter Closed Date Diagnosis/Indication Diagnosis SNOMED-CT Code Diagnosis ICD10 Code Diagnosis Note [id number] Ned López MD [facility] [address] [place] [address] [phone] 03/22/2022 11:12:28 03/27/2022 11:25:26 Foot pain 78997996 M79.673 [id number] Michael Thacker MD [facility] [address] [place] [address] [phone] 02/19/2023 19:28:08 02/20/2023 13:35:32 Viral upper respiratory tract infection 513368195 J06.9 [id number] Marjan Dale MD [facility] [address] [place] [address] [phone] 02/03/2024 15:13:32 02/03/2024 21:25:25 End stage renal failure on dialysis 573633405 N18.6 Health Concerns Section Related Observation LastModified by Organization Detai ls LastModified Time None Recorded Concern Status LastModified by Organization Details LastModified Time None Recorded Advance Directives Directive None Recorded Payers Encounter Date Sequence Insurance Name Policy Number Policy Lazo Covered Member ID Lazo Member ID Guarantor Name 03/22/2022 1 [facility] - DOS PRIOR TO 2022 - DUAL ELIGIBLE (MEDICARE REPLACEMENT/ADV ANTAGE - HMO) Kingsley Johnson [id number] Kingsley Johnson 02/19/2023 1 [facility] - DOS ON OR AFTER 2022 - DUAL ELIGIBLE - SKILLED NURSING OPTIONS AND ONE CARE (MEDICARE REPLACEMENT/ADV ANTAGE - HMO) Kingsley Johnson [id number] Kingsley Johnson 02/03/2024 1 [facility] - DOS ON OR AFTER 2022 - DUAL ELIGIBLE - SKILLED NURSING OPTIONS AND ONE CARE (MEDICARE REPLACEMENT/ADV ANTAGE - HMO) Kingsley Johnson [id number] Kingsley Johnson Notes Date Note Type Note Provider Name and Address Organization Details Recorded Time 03/22/2022 text/html [facility] Nursing Assessment: Reason For Request: pain Chief Complaints: Pain PMH: Diabetes, Amputation, Hypertension, CHF Allergies: Unknown Comments: Partial amputation's of left foot a month. Wound is not healing well. Member is having a full sx on Saturday . Member does not have any pain medication . Member is not being treated for any infection ................... ................... ................... ................... ................... ................... ................... ........ Appraiser Timber Note: Pt states he has part of his left foot amputated secondary to complications from his diabetes. Pt is going back in to have his foot removed above the ankle. Pt was given Percocet for pain post surgery. Given 20 pills Q8 however Pt is already out. Pt states he took extra at night to help him sleep. States he spoke to his surgeon but he would not give more. [facility] consulted. Pt given 15mg IM toradol. Red flags discussed ................... ................... ................... ................... ................... ................... ................... ........ Disposition: Fulfilled Ned López MD [address] [facility], [place], [phone], [employer] 03/27/2022 10:09:04 02/19/2023 text/html HPI: Hx CKD on Dialysis, currently has antonia tube in place due for removal on 03/07/23. Crusting at site per [facility] Started with cold symptoms on Saturday, No fever or sore throat. dry cough and nasal congestion. ................... ................... ................... ................... ................... ................... ................... ........ CRC Nursing Assessment: Comments: CRC RN DID NOT NEED FURTHER INFO< CHUYITA---- 02/18 5:08p call to member via [employer] [id number], as we can not see member this evening due to capacity, no answer and VM left to call back, will place on the schedule for tomorrow 02/19- AAdithya ................... ................... ................... ................... ................... ................... ................... ........ Appraiser Timber Note From Rojelio Rendon: Pt reports 5 days of URI symptoms of dry cough not feeling well and nasal congestion. Denies any fever chills denies any N/VD denies any sob denies any pain. Reports that he has been feeling better days and symptoms are improving. On scene vs taken and Covid flu done [facility] was called and cleared. ................... ................... ................... ................... ................... ................... ................... ........ Disposition: Fulfilled Michael Thacker MD [address] [place] [address],[address], [place], [phone], [employer] 02/19/2023 23:36:12 02/03/2024 text/html HPI: Patient on dialysis last yesterday. BP today 90/60 with fatigue and weakness. Multiple BP meds listed on chart but patient unable to verify what he takes because eyesight is poor. ................... ................... ................... ................... ................... ................... ................... ........ CRC Nurse Triage Notes (Margie Shearer): Chief Complaints: Fatigue, Headache, Hypotension PMH: Amputation, Hypertension, Congestive Heart Failure, Coronary Artery Disease, Chronic Kidney Disease, Cigarette Smoker, Diabetes Mellitus Type 2 Comments: CRC RN did not require any additional information to process this visit. ................... ................... ................... ................... ................... ................... ................... ........ Baseline Information: Baseline Hb: 10 g/dL Baseline HCt: 29% Baseline Creatinine: 3.26 mg/dL ................... ................... ................... ................... ................... ................... ................... ........ Appraiser Timber Note From Serge Cordova: Dispatched to above address for 68yo male with hypotension. Pt states he had dialysis yesterday and woke up today with a head ache. Pt states he checked his BP and wanted to be checked out. Pt denies sob, cp, or nausea. Pt states he has had some dizzy spells and mild head aches. Pt states he has had normal PO intake and has used the bathroom normally. Pt states he has been taking his medications as directed. [facility] consulted. Pt informed of re flags and when to seek further medical attention. Pt found seated in wheel chair speaking in full clear sentences with no signs of distress. AO and GCS-15. PERRL. Skin P/W/D. Airway open and lung sounds clear in all stephenson. ABD soft non tender. Rest exam unremarkable. ................... ................... ................... ................... ................... ................... ................... ........ [facility] Consulted: Marjan Dale ................... ................... ................... ................... ................... ................... ................... ........ Disposition: Hilario Dale MD [address] [facility], [place], [address], [employer] 02/03/2024 20:08:16
--- OUTSIDE RECORDS SUMMARY | 2024-05-01 12:45 | XMS_ITS | Encounter Summary ---
Author Organization [employer] Address [address] [place] [address] Care Team Providers Care Call Out Operator Name Role Phone Marline Richard MD Primary Care Provider [phone] Encounter Details Date Type Department Care Team (Late Contact Info) Description 08/23/2022 Orders Only [facility] MEDICINE [address] [place] [address] Marline Richard MD [address] [place] [address] Hyperkalemia (Primary Dx) Social History Tobacco Use Types [...] Orientation Straight 01/08/2022 10 :14 AM EDT COVID-19 Exposure Response Date Recorded In the last 10 days, have yo u been in contact with someone who was confirmed or suspected to have Coronavirus/COVID-19? No / Unsure 08/17/2022 10:21 AM EDT documented as of this encounter Plan of Treatment Upcoming Encounters Date Type Department Care Team (Late Contact Info) Description 07/21/2024 1:00 PM EDT Office Visit [facility] OPTOMETRY [address] [place] [address] Leslie Aguilar, OD [address] [place] [address] Scheduled Orders Name Type Priority Associated Diagnoses Orde r Schedule Basic Metabolic Panel Lab Routine Hyperkalemia Expected: 08/23/2022 (Approximate), Expires: 08/24/2023 documented as of this encounter Visit Diagnoses Diagnosis Hyperkalemia- Primary Hyperpotassemia documented in this encounter Additional Health Concerns Assessment Noted Time PHQ-9 Depression Total Score: 5 04/20/19 23 1:08 PM EST documented as of this encounter Care Teams Call Out Operator Relationship Specialty Start Date End Date Marline Richard MD [address] [place], [place] [phone] PCP - General Family Medicine 04/21/20 documented as of this encounter
--- OUTSIDE RECORDS SUMMARY | 2024-05-01 12:45 | XMS_ITS | Encounter Summary ---
Author Organization [facility] Address [address] [place] [phone] Phone Care Team Providers Care Mail Carrier And Clerk Name Role Phone Lizy Soria EXAMINING CHAIR ASSEMBLER Primary Care Provider [phone] Encounter Details Date Type Department Care Team ([facility] st Contact Info) Description 04/29/2024 Treatment [facility] [address] [phone] Allen Koroma MD [address] [phone] Social History Tobacco Use Types [...] Dialysis Note - Allen Koroma MD - 04/29/2024 12:00 AM EST Patient: Kingslye Johnson : 1955 Note Type: Dialysis Rounds-Basic Service Date: 04/29/2024 This patient was personally seen for a basic visit as part of routine monthly dialysis care for end stage renal disease. Attending Sofa Back Upholsterer: ALLEN KOROMA MD Dialysis Location: [facility] DIALYSIS Schedule: Shift: 1 HOME MEDICATIONS Current [facility] Outpatient Medications amLODIPine (NORVASC) 10 [...] 2 (two) times a day Start Date: [facility] Inject 100 Units under the skin Start Date: Current [facility] Allergies Allergen: MIRTAZAPINE Reaction: Other [...] (03/18/24) Signed by: ALLEN KOROMA MD on 04/29/2024 at 08:00:50 AM documented in this encounter Plan of Treatment Not on file documented as of this encounter Visit Diagnoses Not on filedocumented in this encounter Care Teams Mail Carrier And Clerk Relationship Specialty Start Date End Date Lizy Soria NP [address] [place] [id number] PCP - General Nurse Practitioner 12/17/23 documented as of this encounter
== END ==
LOC: HO.CARD 11:42
PROVIDERS: PCP General Practice; Visit Provider Pediatrics
DX: Z01.818 Encounter for other preprocedural examination (principal)
CPT/HCPCS: 93005

== ENCOUNTER → 2024-05-01 11:49 | Outpatient (BNV) | payer OTHER, SELFPAY | PROVIDERS: PCP General Practice; Visit Provider Internal Medicine | DX: I44.0 Atrioventricular block, first degree (principal) | CPT/HCPCS: 93010 ==

== ENCOUNTER 2024-05-08 08:38 | Emergency (ER) | payer OTHER, SELFPAY ==
[2024-05-08 08:48] VITALS: BP 120/60; PULSE 70; O2SAT 98
[2024-05-08 09:04] VITALS: BP 98/29; PULSE 71; RESP 18; TEMP 36.6; O2SAT 94; BMI 28.1
--- OUTSIDE RECORDS SUMMARY | 2024-05-08 09:58 | XMS_ITS | Encounter Summary ---
Author Organization [employer] Address [address] 7[address] [place] [address] Care Team Providers Care Leather Scrubber Name Role Phone Marline Richard MD Primary Care Provider [phone] Encounter Details Date Type Department Care Team (Latest Contact Info) Description 08/18/2023 Orders Only [facility] [address] [place] [address] Marline Richard MD [address] [place] [address] Hypertriglyceridemia (Primary Dx) Social History Tobacco Use [...] Description 07/21/2024 1:00 PM EDT Office Visit [facility] OPT[facility]RY [address] [place], [place] [phone] Jeff, Leslie, OD [address] [place] [address] documented as of this encounter Goals Goal [...] documented as of this encounter Care Teams Leather Scrubber Relationship Specialty Start Date End Date Marline Richard MD [address] [place] [address] PCP - General Family Medicine 04/21/20 documented as of this encounter
--- OUTSIDE RECORDS SUMMARY | 2024-05-08 09:58 | XMS_ITS | Encounter Summary ---
Author Organization [employer] Address [address] 7[address] [place] [address] Care Team Providers Care Development Vice President Name Role Phone Marline Richard MD Primary Care Provider Reason for Visit * Reason Comments Med Refill Encounter Details Date Type Department Care Team ([facility] st Contact Info) Description 06/12/2023 Refill [facility] [address] [place], [place] [phone] Marline Richard MD [address] [place], [place] [phone] Vitamin D deficiency, unspecified Social History Tobacco [...] Description 07/21/2024 1:00 PM EDT Office Visit [facility] OPTOMETRY [address] [place] [address] Leslie Aguilar, OD [address] [place] [address] documented as of this encounter Goals Goal [...] documented as of this encounter Care Teams Development Vice President Relationship Specialty Start Date End Date Marline Richard MD [address] [place] [address] PCP - General Family Medicine 04/21/20 documented as of this encounter
--- OUTSIDE RECORDS SUMMARY | 2024-05-08 09:58 | XMS_ITS | Encounter Summary ---
Author Organization [employer] Address [address] 7[address] [place] [address] Care Team Providers Care Resolution Analyst Name Role Phone Marline Richard MD Primary Care Provider Reason for Visit * Reason Onset Date Comments recall 05/06/2024 Encounter Details Date Type Department Care Team ([facility] Contact Info) Description 05/06/2024 Telephone [facility] [address] [place] [address] Marline Richard MD [address] [place] [address] recall Social History Tobacco Use Types Packs/Day Years [...] encounter Miscellaneous Notes * Telephone Encounter - Yun Rivero [place] - 05/06/2024 2:38 PM EST Telephone call to patient to schedule a recall appointment. No answer, Left voicemail to return call to clinic.. Recall letter sent. Visit type: Physical Appointment notes: Physical Month due: July With: Jose Manuel Please schedule appointment above if patient returns call documented in this encounter Plan of Treatment Upcoming Encounters Date Type Department Care Team (Late st Contact Info) Description 07/21/2024 1:00 PM EDT Office Visit [facility] [address] [place] [address] Leslie Aguilar, BRIANNA [address] [place] [address] documented as of this encounter Goals Goal [...] documented as of this encounter Care Teams Resolution Analyst Relationship Specialty Start Date End Date Marline Richard MD [address] [place] [address] PCP - General Family Medicine 04/21/20 documented as of this encounter
--- OUTSIDE RECORDS SUMMARY | 2024-05-08 09:58 | XMS_ITS | Encounter Summary ---
Author Organization [employer] Address [address] [place] [address] Care Team Providers Care Sawmill Manager Name Role Phone Marline Richard MD Primary Care Provider [phone] Reason for Visit * Reason Onset Date Comments Pre-visit Planning 10/30/2023 Encounter Details Date Type Department Care Team ([facility] st Contact Info) Description 10/30/2023 Telephone [facility]INE 230 [place] [address] Marline Richard MD 230 [place] [address] Pre-visit Planning Social History Tobacco Use Types [...] the past 12 months, has t he [employer], gas, oil or water [employer] threatened to shut off services in your [...] Description 07/21/2024 1:00 PM EDT Office Visit [facility] OPTOMETRY [address] [place] [address] Leslie Aguilar, OD [address] [place] [address] documented as of this encounter Goals Goal [...] documented as of this encounter Care Teams Sawmill Manager Relationship Specialty Start Date End Date Marline Richard MD 230 [facility] [place] [address] PCP - General Family Medicine 04/21/20 documented as of this encounter
--- OUTSIDE RECORDS SUMMARY | 2024-05-08 09:58 | XMS_ITS | Clinical Summary ---
Author Organization [facility] Address [address] [address] Care Team Providers Care Tractor Trailer Mechanic Name Role Phone Lizy Soria NP Primary Care Provider [phone] Allergies Active Allergy Reactions Criticality Noted [...] 04/29/2024 [facility] [address] [address] Bernardo Christie MD 04/27/2024 Treatment [facility] [address] [address] Bernardo Christie MD 04/20/2024 Treatment [facility] [address] [address] Bernardo Araiza MD 04/15/2024 Orders Only [facility] the [address] [address] Bernardo Christie MD 04/13/2024 Treatment [facility] [address] [address] Bernardo Christie MD 04/06/2024 Treatment [facility] [address] [address] Bernardo Christie MD 03/30/2024 Treatment [facility] [address] [address] Bernardo Araiza MD 03/23/2024 Treatment [facility] [address] [address] Bernardo Araiza MD 03/16/2024 Treatment [facility] [address] [address] Bernardo Christie MD 03/03/2024 Treatment [facility] [address] [address] Bernardo Christie MD 02/24/2024 Treatment [facility] [address] [address] Bernardo Christie MD 02/17/2024 Treatment [facility] [address] [address] Bernardo Christie MD 02/10/2024 Treatment [facility] the [address] [address] Bernardo Christie MD from Last 3 Months [...] Priority Date/Time Associated Diagnosis Comments HEMOGLOBIN Routine 05/06/2024 3:00 AM EST PHOSPHATE ( PHOSPHORUS) Routine 05/01/2024 3:00 AM EST LIH (HC) Routine 05/01/2024 3:00 AM EST HEMOGLOBIN AND HEMATOCRIT, BLOOD Routine 04/29/2024 3:00 AM EST HEMOGLOBIN Routine 04/22/2024 3:00 AM EST LIH [...] AND DIFFERENTIAL Routine 02/12/2024 3:00 AM EST from Last 3 Months Results * (ABNORMAL) Hemoglobin (05/06/2024 3:00 AM EST) Only the most recent of5 resultswithin the time period is included. Hgb 8.9(L) 13.7 - 17.5 g/dL [facility] Hemoglobin x 3 26.7(L) 41.1 - 52.5 g/dL [facility] 05/06/2024 3:00 AM EST 05/07/2024 1:03 PM EST us Bernardo Christie MD LAB BLOOD ORDERABLES Final Resul t Performing Organization Address [facility] Co de Phone Number [facility] [address] [place] [address] * LIH (05/01/2024 3:00 AM EST) Only the most recent of5 resultswithin the time period is included. Lipemia Normal Normal [facility] Icterus Normal Normal [facility] Hemolysis Normal Normal [facility] 05/01/2024 3:00 AM EST 05/02/2024 1:34 PM EST us Bernardo Christie MD LAB [id number] ICITED RESULTS Final Result Performing Organization Address [facility] Co de Phone Number [facility] [address] [place] [address] * (ABNORMAL) Phosphorus (05/01/2024 3:00 AM EST) Phosphorus, Serum 5.8(H) 2.5 - 5.0 mg/dL [facility] 05/01/2024 3:00 AM EST 05/02/2024 1:34 PM EST us Bernardo Christie MD LAB BLOOD ORDERABLES Final Resul t Performing Organization Address [facility] Co de Phone Number [facility] [address] [place] [address] * (ABNORMAL) Hemoglobin and hematocrit (04/29/2024 3:00 AM EST) Only the most recent of3 resultswithin the time period is included. Hgb 10.5(L) 13.7 - 17.5 g/dL [facility] Hematocrit 30.9(L) 40.1 - 51.0 % [facility] Hemoglobin x 3 31.5(L) 41.1 - 52.5 g/dL [facility] 04/29/2024 3:00 AM EST 05/01/2024 12:47 PM EST us Bernardo Christie MD LAB BLOOD ORDERABLES Final Resul t Performing Organization Address City/[facility]/ZIP Co de Phone Number [facility] [address] [place] [address] * (ABNORMAL) Kt/V Natural Log, URR (04/17/2024 3:00 AM EST) Only the most recent of4 resultswithin the time period is included. Pathologist [facility] Treatment Time 218 min [facility] Pre-Weight, lb [...] PM EST us Bernardo Christie MD LAB [id number] ICITED RESULTS Final Result Performing Organization Address City/[facility]/ZIP Co de Phone Number [facility] [address] [place] [address] * (ABNORMAL) Calcium Phosphorus Product, Adjusted (04/15/2024 3:00 AM EST) Only the most recent of3 resultswithin the time period is included. Pathologist [facility] Albumin 3.8 3.6 - 5.4 g/dL [facility] Calcium 8.0(L) 8.6 - 10.3 mg/dL [facility] Phosphorus, Serum 6.2(H) 2.5 - 5.0 mg/dL [facility] Ca*PO4 49.6 <55.0 mg2/dL2 [facility] Calcium, Adjusted Total 8.2(L) 8.6 - 10.3 mg/dL [facility] CA*PO4 CORRCTD 50.8 <55.0 mg2/dL2 [facility] 04/15/2024 3:00 AM EST 04/16/2024 12:08 PM EST us Bernardo Christie MD LAB [id number] ICITED RESULTS Final Result Performing Organization Address [facility] de Phone Number [facility] [address] [place] [address] * (ABNORMAL) TSAT (04/15/2024 3:00 AM EST) Only the most recent of3 resultswithin the time period is included. Pathologist [facility] Iron 144 65 - 175 ug/dL [facility] Transferrin 132(L) 215 - 365 mg/dL [facility] TIBC 185(L) 211 - 406 ug/dL [facility] Iron Saturation (TSat) 78(H) 22 - 52 % [facility] 04/15/2024 3:00 AM EST 04/16/2024 12:08 PM EST us Bernardo Christie MD LAB BLOOD ORDERABLES Final Resul t Performing Organization Address City/[facility] Co de Phone Number [facility] [address] [place] [address] * (ABNORMAL) CBC and Differential (04/15/2024 3:00 AM EST) Only the most recent of3 resultswithin the time period is included. [facility] DIFFERENTIAL MANUAL, 2 Not Indicated [facility] White [...] 3:00 AM EST 04/16/2024 12:13 PM EST us Bernardo Christie MD LAB BLOOD ORDERABLES Final Resul t Performing Organization Address City/[facility] Co de Phone Number [facility] [address] [place] [address] * ALT (04/15/2024 3:00 AM EST) Only the most recent of3 resultswithin the time period is included. ALT (SGPT) 30 10 - 49 U/L [facility] 04/15/2024 3:00 AM EST 04/16/2024 12:08 PM EST us Bernardo Christie MD LAB BLOOD ORDERABLES Final Resul t Performing Organization Address [facility] Co de Phone Number [facility] [address] [place] [address] * AST (04/15/2024 3:00 AM EST) Only the most recent of3 resultswithin the time period is included. AST (SGOT) 24 <34 U/L [facility] 04/15/2024 3:00 AM EST 04/16/2024 12:08 PM EST us Bernardo Christie MD LAB BLOOD ORDERABLES Final Resul t Performing Organization Address [facility] de Phone Number [facility] [address] [place] [address] * Protein, total (04/15/2024 3:00 AM EST) Only the most recent of3 resultswithin the time period is included. Total Protein 6.9 6.4 - 8.9 g/dL [facility] 04/15/2024 3:00 AM EST 04/16/2024 12:08 PM EST us Bernardo Christie MD LAB BLOOD ORDERABLES Final Resul t Performing Organization Address [facility] Phone Number [facility] [address] [place] [address] * (ABNORMAL) Alkaline phosphatase (04/15/2024 3:00 AM EST) Only the most recent of3 resultswithin the time period is included. Alkaline Phosphatase 163(H) 46 - 116 U/L [facility] 04/15/2024 3:00 AM EST 04/16/2024 12:08 PM EST us Bernardo Christie MD LAB BLOOD ORDERABLES Final Resul t Performing Organization Address [facility] de Phone Number [facility] [address] [place] [address] * (ABNORMAL) Magnesium (04/15/2024 3:00 AM EST) Only the most recent of3 resultswithin the time period is included. Magnesium 1.6(L) 1.9 - 2.7 mg/dL [facility] 04/15/2024 3:00 AM EST 04/16/2024 12:08 PM EST us Bernardo Christie MD LAB BLOOD ORDERABLES Final Resul t Performing Organization Address [facility]/State/ZIP Co de Phone Number [facility] [address] [place] [address] * (ABNORMAL) Lactate dehydrogenase (04/15/2024 3:00 AM EST) Only the most recent of3 resultswithin the time period is included. LDH 283(H) 120 - 246 U/L [facility] 04/15/2024 3:00 AM EST 04/16/2024 12:08 PM EST us Bernardo Christie MD LAB BLOOD ORDERABLES Final Resul t Performing Organization Address [facility] de Phone Number [facility] [address] [place] [address] * (ABNORMAL) Glucose, random (04/15/2024 3:00 AM EST) Only the most recent of3 resultswithin the time period is included. Glucose 230(H) 74 - 109 mg/dL [facility] 04/15/2024 3:00 AM EST 04/16/2024 12:08 PM EST us Benrardo Christie MD LAB BLOOD ORDERABLES Final Resul t Performing Organization Address [facility] de Phone Number [facility] [address] [place] [address] * (ABNORMAL) Ferritin (04/15/2024 3:00 AM EST) Only the most recent of3 resultswithin the time period is included. Ferritin 1,450(H) 22 - 322 ng/mL [facility] 04/15/2024 3:00 AM EST 04/16/2024 12:08 PM EST us Bernardo Christie MD LAB BLOOD ORDERABLES Final Resul t Performing Organization Address [facility] Co de Phone Number [facility] [address] [place] [address] * (ABNORMAL) Creatinine, serum (04/15/2024 3:00 AM EST) Only the most recent of3 resultswithin the time period is included. Creatinine 6.88(H) 0.70 - 1.30 mg/dL [facility] 04/15/2024 3:00 AM EST 04/16/2024 12:08 PM EST us Bernardo Christie MD LAB BLOOD ORDERABLES Final Resul t Performing Organization Address City/[facility] Co de Phone Number [facility] [address] [place] [address] * (ABNORMAL) Bilirubin, total (04/15/2024 3:00 AM EST) Only the most recent of3 resultswithin the time period is included. Total Bilirubin <0.2(L) 0.3 - 1.2 mg/dL [facility] 04/15/2024 3:00 AM EST 04/16/2024 12:08 PM EST us Bernardo Christie MD LAB BLOOD ORDERABLES Final Resul t Performing Organization Address [facility] de Phone Number [facility] [address] [place] [address] * Electrolyte panel (04/15/2024 3:00 AM EST) [...] ORDERABLES Final Resul t Performing Organization Address [facility] Co de Phone Number [facility] [address] [place] [address] * Confirmation Test HCV (03/18/2024 3:00 AM EST) Hep C Ab Confirmation Not needed [facility] 03/18/2024 3:00 AM EST 03/19/2024 6:04 PM EST us Bernardo Christie MD LAB BLOOD ORDERABLES Final Resul t Performing Organization Address [facility] de Phone Number [facility] [address] [place] [address] * HEPATITIS C ABS W/REFLEX RNA DETECTR (03/18/2024 3:00 AM EST) Hep C Virus Ab Non-Reacti ve Non-Reacti ve [facility] 03/18/2024 3:00 AM EST 03/19/2024 5:56 PM EST us Bernardo Christie MD LAB [id number] ICITED RESULTS Final Result Performing Organization Address [facility] de Phone Number [facility] [address] [place] [address] * Aluminum level (03/18/2024 3:00 AM EST) Aluminum 3 1 - 20 ug/L [facility] 03/18/2024 3:00 AM EST 03/19/2024 5:39 PM EST us Bernardo Christie MD LAB BLOOD ORDERABLES Final Resul t Performing Organization Address [facility] de Phone Number [facility] [address] [place] [address] * Hepatitis B Surface Antibody (03/18/2024 3:00 AM EST) Only the most recent of2 resultswithin the time period is included. Hep B Surface Antibody 362 mIU/mL [facility] Comment: Interpretation: <10: No Immunity >=10: Probable Immunity 03/18/2024 3:00 AM EST 03/19/2024 5:56 PM EST us Bernardo Christie MD LAB BLOOD ORDERABLES Final Resul t Performing Organization Address City/[facility] Co de Phone Number [address] [address] * Uric Acid (03/18/2024 3:00 AM EST) Uric Acid 6.0 4.4 - 7.6 mg/dL [facility] 03/18/2024 3:00 AM EST 03/19/2024 5:56 PM EST us Bernardo Christie MD LAB BLOOD ORDERABLES Final Resul t Performing Organization Address [facility] de Phone Number [address] [address] * PTH, Intact (03/18/2024 3:00 AM EST) PTH, Intact 346 160 - 721 pg/mL [facility] Comment: Suggested (KDIGO) ESRD maintenance range is two to nine times the upper normal limit (80.1 pg/mL) for the laboratory. 03/18/2024 3:00 AM EST 03/19/2024 5:56 PM EST us Bernardo Christie MD LAB BLOOD ORDERABLES Final Resul t Performing Organization Address [facility] de Phone Number [address] [address] * (ABNORMAL) Hemoglobin A1c (03/18/2024 3:00 AM EST) Hemoglobin A1C 7.5(H) <5.7 % [facility] Comment: Methodology: Enzymatic HbA1c (NGSP %) ?Suggested Diagnosis >6.4% ? Diabetic 5.7-6.4% ?Pre-Diabetic <5.7% ? Non-Diabetic Diabetic Glucose Control Evaluation: Therapeutic action suggested at >8.0% ADA recommends a glycemic goal of <7.0% 03/18/2024 3:00 AM EST 03/19/2024 6:04 PM EST us Bernardo Christie MD LAB BLOOD ORDERABLES Final Resul t Performing Organization Address [facility] de Phone Number [facility] [address] [place] [address] * (ABNORMAL) Lipid panel (03/18/2024 3:00 AM [...] ORDERABLES Final Resul t Performing Organization Address City/[facility] Co de Phone Number [facility] [address] [place] [address] * Hepatitis B Surface Ag w/Reflex Confirmation (02/19/2024 3:00 AM EST) Hep B Surface Antigen Negative Negative [facility] 02/19/2024 3:00 AM EST 02/20/2024 2:08 PM EST Bernardo Christie MD LAB BLOOD ORDERABLES Final Resul t [facility] [address] [place] [address] from Last 3 Months Insurance [facility] ([id number]) JERMAINE JARAMILLO [id number] [facility] ([id number]) [address] [place] [address] Care Teams Tractor Trailer Mechanic Relationship Specialty Start Date End Date Lizy Soria NP [address] [place] [address] PCP - General Nurse Practitioner 12/17/23
--- OUTSIDE RECORDS SUMMARY | 2024-05-08 09:58 | XMS_ITS | Encounter Summary ---
Author Organization [employer] Address [address] [place] [address] Care Team Providers Care Mathematical Sciences Professor Name Role Phone Marline Richard MD Primary Care Provider [phone] Reason for Visit * Reason Comments Med Refill Encounter Details Date Type Department Care Team ([facility] Contact Info) Description 05/07/2024 Refill [facility] [address] [place], [place] [phone] Marline Richard MD [address] [place] [address] Social History Tobacco Use Types Packs/Day Years [...] Description 07/21/2024 1:00 PM EDT Office Visit [facility] OPTOM[facility]RY [address] [place] [address] Jeff, Leslie, OD [address] [place] [address] documented as of this encounter Goals Goal [...] documented as of this encounter Care Teams Mathematical Sciences Professor Relationship Specialty Start Date End Date Marline Richard MD [address] [place] [address] PCP - General Family Medicine 04/21/20 documented as of this encounter
--- OUTSIDE RECORDS SUMMARY | 2024-05-08 09:58 | XMS_ITS | Encounter Summary ---
Author Organization [employer] Address [address] [place] [address] Care Team Providers Care Crossing Supervisor Name Role Phone Marline Richard MD Primary Care Provider [phone] Reason for Visit * Reason Comments Med Refill Encounter Details Date Type Department Care Team ([facility] Contact Info) Description 09/18/2023 Refill [facility] [address] [place], [place] [phone] Marline Richard MD [address] [place], [place] [phone] Type 2 diabetes mellitus with chronic kidney [...] Visit [facility] OPTOMETRY [address] [place] [address] JeffLeslie, OD [address] [place] [address] documented as of this encounter Goals Goal [...] documented as of this encounter Care Teams Crossing Supervisor Relationship Specialty Start Date End Date Marline Richard MD [address] [place] [address] PCP - General Family Medicine 04/21/20 documented as of this encounter
--- OUTSIDE RECORDS SUMMARY | 2024-05-08 09:58 | XMS_ITS | Encounter Summary ---
Author Organization [employer] Address [address] [place] [address] Care Team Providers Care Drying Oven Tender Name Role Phone Marline Richard MD Primary Care Provider [phone] Reason for Visit * Reason Comments Med Refill Encounter Details Date Type Department Care Team ([facility] Contact Info) Description 08/16/2023 Refill [facility] MED[facility] [address] [place], [place] [phone] Marline Richard MD [address] [place], [place] [phone] Type 2 diabetes mellitus with chronic kidney [...] Office Visit [facility] OPTOMETRY [address] [place] [address] JeffLeslie, OD [address] [place] [address] documented as of this encounter Goals Goal [...] documented as of this encounter Care Teams Drying Oven Tender Relationship Specialty Start Date End Date Marline Richard MD [address] [place] [address] PCP - General Family Medicine 04/21/20 documented as of this encounter
--- OUTSIDE RECORDS SUMMARY | 2024-05-08 09:59 | XMS_ITS | Encounter Summary ---
Author Organization [employer] Address [address] [place] [address] Care Team Providers Care Roller Stainer Name Role Phone Marline Richard MD Primary Care Provider [phone] Encounter Details Date Type Department Care Team ([facility] st Contact Info) Description 06/14/2023 Orders Only [facility] MEDICINE [address] [place] [address] Marline Richard MD [address] [place] [address] Social History Tobacco Use Types Packs/Day Years [...] Description 07/21/2024 1:00 PM EDT Office Visit [facility] OPTOMETRY [address] [place], [place] [phone] JeffLeslie henry, OD [address] [place] [address] documented as of this encounter Goals Goal [...] documented as of this encounter Care Teams Roller Stainer Relationship Specialty Start Date End Date Marline Richard MD [address] [place], [place] [phone] PCP - General Family Medicine 04/21/20 documented as of this encounter
--- OUTSIDE RECORDS SUMMARY | 2024-05-08 09:59 | XMS_ITS | Encounter Summary ---
Author Organization [employer] Address [address] [facility] 7t [place] [address] Care Team Providers Care Steno Typist Name Role Phone Marline Richard MD Primary Care Provider Reason for Visit * Reason Onset Date Comments Hospital Follow-up 10/05/2022 Encounter Details Date Type Department Care Team ([facility] st Contact Info) Description 10/05/2022 Telephone [facility] [address] [place] [address] Marline Richard MD [address] [place] [address] Hospital Follow-up Social History Tobacco Use Types [...] a HDF appt. [place] [facility] [place] and discharged on 10/02/22. Pt was diagnosed with hypertensive emergency documented in this encounter Plan of Treatment Upcoming Encounters Date Type Department Care Team (Late st Contact Info) Description 07/21/2024 1:00 PM EDT Office Visit [facility] [address] [place], [place] [phone] Leslie Aguilar, OD [address] [place] [address] documented as of this encounter Visit Diagnoses Not on filedocumented in this encounter Additional Health Concerns Assessment Noted Time PHQ-9 Depression Total Score: 5 04/20/19 23 1:08 PM EST documented as of this encounter Care Teams Steno Typist Relationship Specialty Start Date End Date Marline Richard MD [address] [place] [address] PCP - General Family Medicine 04/21/20 documented as of this encounter
--- OUTSIDE RECORDS SUMMARY | 2024-05-08 09:59 | XMS_ITS | Encounter Summary ---
Author Organization [employer] Address [address] [facility] [address] [address] Care Team Providers Care Teachers' Aide Name Role Phone Marline Richard MD Primary Care Provider [phone] Reason for Visit * Reason Comments Med Refill Encounter Details Date Type Department Care Team ([facility] st Contact Info) Description 02/14/2023 Refill [facility] [address] [place], [place] [phone] Marline Richard MD [address] [place] [address] Social History Tobacco Use Types Packs/Day Years [...] Description 07/21/2024 1:00 PM EDT Office Visit [facility] [address] [place] [address] Jeff, Leslie, OD [address] [place] [address] documented as of this encounter Goals Goal [...] documented as of this encounter Care Teams Teachers' Aide Relationship Specialty Start Date End Date Marline Richard MD [address] [place], [place] [phone] PCP - General Family Medicine 04/21/20 documented as of this encounter
--- OUTSIDE RECORDS SUMMARY | 2024-05-08 09:59 | XMS_ITS | Encounter Summary ---
Author Organization [employer] Address [address] [facility] [address] 7[address] [place] [address] Care Team Providers Care Barrel Washer Machine Name Role Phone Marline Richard MD Primary Care Provider [phone] Reason for Visit * Reason Onset Date Comments Chart Prep 04/15/2024 Encounter Details Date Type Department Care Team ([facility] st Contact Info) Description 04/15/2024 Telephone [facility]INE [address] [place] [address] [facility] [place] Chart Prep Social History [...] Description 07/21/2024 1:00 PM EDT Office Visit [facility] OPT[facility] [address] [place] [address] Leslie Aguilar, OD [address] [place] [address] documented as of this encounter Goals Goal [...] documented as of this encounter Care Teams Barrel Washer Machine Relationship Specialty Start Date End Date Marline Richard MD 230 [place] [address] PCP - General Family Medicine 04/21/20 documented as of this encounter
--- OUTSIDE RECORDS SUMMARY | 2024-05-08 09:59 | XMS_ITS | Encounter Summary ---
Author Organization [facility] Address [address] [place] [phone] Phone Care Team Providers Care Artificial Flowers Dyer Name Role Phone Lizy Soria RETURNS PROCESSOR Primary Care Provider [phone] Encounter Details Date Type Department Care Team ([facility] st Contact Info) Description 04/27/2024 Treatment [facility] [address] [phone] Allen Koroma MD [address] [address] Social History Tobacco Use Types [...] care for end stage renal disease. Attending Auto Mechanics Teacher: ALLEN KOROMA MD Dialysis Location: [facility] Schedule: Shift: 1 HOME MEDICATIONS Current [facility] Outpatient Medications amLODIPine (NORVASC) 10 MG [...] 2 (two) times a day [facility] 100 Units under the skin Start Date: Current [facility] Allergies Allergen: MIRTAZAPINE Reaction: Other (see [...] on filedocumented in this encounter Care Teams Artificial Flowers Dyer Relationship Specialty Start Date End Date Lizy Soria NP [address] [place] [address] PCP - General Nurse Practitioner 12/17/23 documented as of this encounter
--- OUTSIDE RECORDS SUMMARY | 2024-05-08 09:59 | XMS_ITS | Encounter Summary ---
Author Organization [facility] Address [address] [place] [phone] Phone Care Team Providers Care Brazing Machine Operator Automatic Name Role Phone Lizy Soria EMR IMPLEMENTATION SPECIALIST Primary Care Provider [phone] Encounter Details Date Type Department Care Team ([facility] st Contact Info) Description 04/29/2024 Treatment [facility] [address] [address] Allen Koroma MD [address] [address] Social History Tobacco Use Types [...] MD - 04/29/2024 12:00 AM EST Patient: Kingsley Johnson : 1955 Note Type: Dialysis Rounds-Basic Service Date: 04/29/2024 This patient was personally seen for a basic visit as part of routine monthly dialysis care for end stage renal disease. Attending Neuroradiologist: ALLEN KOROMA MD Dialysis Location: [facility] Schedule: Shift: 1 HOME MEDICATIONS Current [facility] Outpatient Medications amLODIPine (NORVASC) 10 MG tablet [...] 2 (two) times a day [facility] Units under the skin Start Date: Current [facility] Allergies Allergen: MIRTAZAPINE Reaction: Other (see comments) [...] on filedocumented in this encounter Care Teams Brazing Machine Operator Automatic Relationship Specialty Start Date End Date Lizy Soria NP [address] [place] [address] PCP - General Nurse Practitioner 12/17/23 documented as of this encounter
--- OUTSIDE RECORDS SUMMARY | 2024-05-08 09:59 | XMS_ITS | Clinical Summary ---
Author Organization [employer] Address [address] [facility] 7t [place] [address] Care Team Providers Care Planning Consultant Name Role Phone Marline Richard MD Primary Care Provider [phone] Allergies Active Allergy Reactions Criticality Noted Date Comments Metformin 08/05/2023 Mirtazapine Hives 07/08/2014 Medications Continuous Blood Gluc Presentation Manager ([employer] Daniel 2 Hull) deviceIndicatio ns:Type 2 diabetes mellitus with stage 2 chronic kidney disease, with long-term current use of insulin ([facility]) 1 each in the morning. 1 each 07/28/19 23 Active fluticasone (Flonase) 50 MCG/ACT nasal spray USE 2 SPRAYS IN EACH NOSTRIL EVERY MORNING NEEDED 48 g 09/13/19 23 Active albuterol (Ventolin HFA) 108 (90 Base) MCG/ACT inhaler Inhale 2 puffs every 4 (four) hours if needed for wheezing or shortness of breath. 18 g 1 12/12/19 23 Active omeprazole (PriLOSEC) [address] capsuleIndicati ons:Gastroesoph ageal reflux disease, unspecified whether esophagitis present Take 1 capsule (40 mg) by mouth before breakfast. Do not crush or chew. 30 capsule 11 02/21/20 23 Active docusate sodium (Colace) 100 MG capsuleIndicati ons:Constipatio n, unspecified constipation type TAKE 1 CAPSULE BY MOUTH AT BEDTIME 90 capsule 3 03/26/19 24 Active cholecalciferol (Vitamin D3) 25 MCG (1000 UT) tablet Take 1 tablet (1,000 Units) by mouth in the morning. 90 tablet 3 06/14/19 24 Active NIFEdipine XL (Procardia XL) 90 MG 24 hr tablet Take 1 tablet (90 mg) by mouth Once per day. Do not crush, chew, or split. 30 tablet 07/16/19 24 025 Active isosorbide mononitrate ER (Imdur) 120 MG 24 hr tablet Take 1 tablet (120 mg) by mouth Once per day. Do not crush or chew. 30 tablet 07/16/19 24 025 Active sertraline (Zoloft) 50 MG tablet TAKE 1 TABLET BY MOUTH EVERY MORNING 90 tablet 3 08/14/19 24 Active Icosapent Ethyl (Vascepa) 1 g capsuleIndicati ons:Hypertrigly ceridemia Take 2 capsules (2 g) by mouth with breakfast and with evening meal. 120 capsule 08/18/19 24 025 Active atorvastatin (Lipitor) 80 MG tablet TAKE 1 TABLET BY MOUTH AT BEDTIME 90 tablet 3 09/09/19 24 Active OneTouch Ultra Test test stripIndication s:Type 2 diabetes mellitus with chronic kidney disease, with long-term current use of insulin, unspecified CKD stage ([facility]) USE DIRECTED TO TEST BLOOD SUGAR THREE TIMES DAILY 100 strip 09/13/19 Active Continuous Glucose Sensor ([employer] Daniel 2 Sensor) miscIndications :Type 2 diabetes mellitus with stage 2 chronic kidney disease, with long-term current use of insulin ([facility]) USE DIRECTED AND CHANGE EVERY 14 DAYS 2 each 09/13/19 Active Blood Glucose Monitoring Suppl (ONE TOUCH ULTRA 2) w/Device kitIndications: Type 2 diabetes mellitus with chronic kidney disease, with long-term current use of insulin, unspecified CKD stage (CMS/HCC) Use to monitor blood glucose three times daily 1 kit 10/08/19 24 Active tamsulosin (Flomax) 0.4 MG 24 hr capsule TAKE 1 CAPSULE BY MOUTH EVERY EVENING 30 MINUTOS DESPUES DE LA FRANCHESAK 90 capsule 3 11/25/19 24 Active hydrALAZINE (Apresoline) 50 MG tabletIndicatio ns:Essential hypertension TAKE 2 TABLETS BY MOUTH THREE TIMES DAILY IN THE MORNING, EVENING AND BEDTIME 180 tablet 11 12/31/19 24 Active gabapentin (Neurontin) 300 MG capsule TAKE 1 CAPSULE BY MOUTH EVERY MORNING 90 capsule 3 12/31/19 24 Active Tresiba FlexTouch 100 UNIT/ML injection Inject 25 Units under the skin at bedtime. 10 mL 3 02/10/20 24 Active Lancets 33G misc 1 each at noon and 1 each in the evening. Use to test blood sugar three times a day. 100 each 11 02/10/20 24 Active cyclobenzaprine (Flexeril) 10 MG tablet Take 1 tablet (10 mg) by mouth if needed in the morning, at noon, and at bedtime for muscle spasms. 45 tablet 1 02/10/20 24 Active cetirizine (ZyrTEC) 10 MG tablet Take 1 tablet (10 mg) by mouth Once per day. 90 tablet 3 02/10/20 24 025 Active aspirin (Aspirin Low Dose) 81 MG chewable tablet Chew 1 tablet (81 mg) Once per day. 90 tablet 3 02/10/20 24 Active NIFEdipine XL (Procardia XL) 60 MG 24 hr tablet TAKE 2 TABLETS BY MOUTH ONCE DAILY IN THE MORNING 12/31/19 24 Active Melatonin 3 MG capsule Take 1 capsule orally qhs 30 capsule 5 04/30/19 25 Active carvedilol (Coreg) 25 MG tablet TAKE 1 TABLET BY MOUTH TWICE DAILY IN THE MORNING AND IN THE EVENING 180 tablet 3 05/08/19 25 Active losartan (Cozaar) 50 MG tablet Take 1 tablet (50 mg) by mouth Once per day. 90 tablet 3 05/08/19 25 026 Active losartan (Cozaar) 50 MG tablet Take 1 tablet (50 mg) by mouth in the morning. 90 tablet 3 03/20/19 24 025 Discontinued(Re order (will not trigger notification to Pharmacy)) carvedilol (Coreg) 25 MG tablet TAKE 1 TABLET BY MOUTH TWICE DAILY IN THE MORNING AND IN THE EVENING 180 tablet 3 05/13/19 24 025 Discontinued traZODone (Desyrel) 100 MG tablet Take 1 tablet (100 mg) by mouth at bedtime. For insomnia 90 tablet 3 08/05/19 24 025 Discontinued(Si de effects) Active Problems Problem Noted Date Diagnosed [...] malnutrition 08/21/2023 Allergy, unspecified, initial encounter 08/18/19 Anaphylactic shock, unspecified, initial encount er 08/18/2023 Chest pain, unspecified 08/18/2023 Fever, unspecified 08/18/2023 Hypoglycemia, unspecified 08/18/2023 Pain, unspecified 08/18/2023 Secondary hyperparathyroidism of renal origin Encounter for screening for respiratory tubercul osis 08/18/2023 Anemia in chronic kidney disease 08/08/2023 Dependence on renal dialysis 08/08/2023 Heart failure, unspecified 08/08/2023 care home (current) use of oral hypoglycemic sarahi [...] & Plan (04/15/2023 11:28 AM EST): At [facility] dialysis M/W/F schedule Confirmed with dialysis provider [...] associa adilson with type 2 diabetes mellitus ([facility]) 12/14/2014 Assessment & Plan (08/05/2023 11:10 AM [...] EDT): With worsening Cr, renal ultrasound in [facility] [place] in September suggesting renal artery stenosis Had MRA pending Continue Amlodipine, Lasix, Losartan, Metoprolol, Isosorbide - [facility] hospitalist had started Nifedipine as well in September hospitalization, this was discontinued by cardiology 10/10/22, removed from med list Assessment & Plan (08/20/2022 7:51 AM EDT): Currently in [facility]/bump in Cr Managing BP meds with commercial loan closer, held all of his BP meds and Metformin today Assessment & Plan (04/24/2022 11:45 AM EST): Continue medbox meds Confirmed this with pharmacy Dispose of rehab meds appropriately Mixed hyperlipidemia 12/14/2014 Encounters Date Type Department Care Team Description 05/07/2024 Refill [facility] [address] [place] [address] Marline Richard MD 05/06/2024 Telephone [facility] [address] [place] [address] Marline Richard MD recall 04/30/2024 1:30 PM EST Office Visit [facility] [address] [place] [address] Iliana Oswald MD Preop examination (Primary Dx); Type 2 diabetes mellitus with chronic kidney disease, with long-term current use of insulin, unspecified CKD stage ([facility]); Primary insomnia; Essential hypertension 04/30/2024 Travel 04/17/2024 Telephone [facility] [address] [place] [address] Marline Richard MD 04/15/2024 Telephone [facility] [address] [place] [address] [facility] [facility] [place] Chart Prep 03/17/2024 Telephone [facility] [address] [place] [address] Rosa Barrios, RN CGM Sensor PA 03/06/2024 Telephone [facility] [address] [place] [address] Marline Richard MD Pre-op Visit 02/17/2024 Telephone [facility] [address] [place] [address] Reina Kim RN 02/10/2024 2:00 PM EST Office Visit [facility] [address] [facility] [address] Marline Richard MD Chronic congestive heart failure, unspecified heart failure type (CMS/HCC) (Primary Dx); Type 2 diabetes mellitus with chronic kidney disease, with long-term current use of insulin, unspecified CKD stage (CMS/HCC); Encounter for immunization; Essential hypertension; End stage renal disease on dialysis due to type 2 diabetes mellitus (CMS/HCC); Erectile dysfunction associated with type 2 diabetes mellitus (CMS/HCC) (CMS/HCC); Moderate nonproliferative diabetic retinopathy of both eyes with macular edema associated with type 2 diabetes mellitus (CMS/HCC); Abnormal CT of the abdomen 02/10/2024 Travel from Last 3 Months Immunizations Name Administration [...] is your housing situation today? I have pderito alvarado 12/26/[address] you [...] Description 07/21/2024 1:00 PM EDT Office Visit [facility] [address] [place], [place] [phone] Jeff, Leslie, OD [address] [place] [address] Health Maintenance Due Date Last Done Comments CT Colonography 1955 Colonoscopy 1955 Colorectal Cancer Screening 1955 FIT DNA/Cologuard 1955 FIT 1955 FOBT 1955 Sigmoidoscopy 1955 Hepatitis C Screening 1973 Influenza Vaccine (#1) 2023 3, 12/19/2021, 12/19/2021, Additional history exists Diabetes: Hemoglobin A1C 05/10/20242 024, 08/02/2023, 07/15/2023, Additional history exists Lipid [...] current use of insulin, unspecified CKD stage ([facility]) POCT GLYCATED HEMOGLOBIN, TOTAL Routine 02/10/2024 3:44 [...] of2 resultswithin the time period is included. Glucose Blood, POC 439(A) 60 - 200 mg/dL QC Media Lot # Comment:[id number] Lot# Expiration Date Comment:06/16/2024 Blood Capillary blood specimen / Unknown 04/30/2024 1:20 PM EST Iliana Oswald MD POINT OF CARE TEST ENTER/EDIT ORDERABLES Final Result * (ABNORMAL) POCT HGB A1C (02/10/2024 3:44 PM EST) Hemoglobin A1C 7.8(A) 4.0 - 6.0 % QC Media Lot # [id number] Lot# Expiration Date [id number] Blood 02/10/2024 3:44 PM EST Marline Richard MD POINT OF CARE TEST ENTER/EDIT ORDERABLES Final Result * (ABNORMAL) Lipid Panel, Standard (07/15/2023 2:42 PM EDT) Triglycerides 294(H) <150 mg/dL [facility] Comment:Desirable Triglyceri de: less than 150 mg/dLBorderline High Triglyceride 150-199 mg/dLHigh Triglyceride: 200-499 mg/dLVery High Triglyceride: greater than or equal to 5OO mg/dL Cholesterol 118 <200 mg/dL [facility] Comment:Desirable Cholestero l: less than 200 mg/dLBorderline High Cholesterol: 200-239 mg/dLHigh Cholesterol: greater than 239 mg/dL LDL Cholesterol Calculated 22 <100 mg/dL [facility] Comment:Desirable LDL: less than 100 mg/dLNear Optimal/Above Optimal LDL: 110- 129 mg/dLBorderline High LDL: 130-159 mg/dLHigh LDL: 160-189 mg/dLVery High LDL: greater than or equal to 190 mg/dL HDL Cholesterol 38(L) >40 mg/dL [facility] Comment:Desirable HDL: great er than 40 mg/dL Note: This HDL assay may give artificially low results in patients with liver disease. Blood Venous blood specimen / Unknown 07/15/2023 2:42 PM EDT 07/15/2023 4:10 PM EDT us Marline Richard MD LAB BLOOD ORDERABLES Final Res ult [facility] [address] [place] [address] [phone] from Last 3 Months or Most Recently Relevant to Health Maintenance Insurance [facility] Care Teams Planning Consultant Relationship Specialty Start Date End Date Marline Richard MD [address] [place] [address] PCP - General Family Medicine 04/21/20
--- OUTSIDE RECORDS SUMMARY | 2024-05-08 09:59 | XMS_ITS | Encounter Summary ---
Author Organization [employer] Address [address] [facility] 7t [place] [address] Care Team Providers Care Spanish Teacher Name Role Phone Marline Richard MD Primary Care Provider [phone] Encounter Details Date Type Department Care Team ([facility] Contact Info) Description 01/23/2024 Orders Only [facility] [address] [place] [address] ProviderJose D MD Social History Tobacco Use [...] Description 07/21/2024 1:00 PM EDT Office Visit [facility] [address] [place] [address] JeffLeslie, OD [address] [place] [address] documented as of this encounter Goals Goal [...] documented as of this encounter Care Teams Spanish Teacher Relationship Specialty Start Date End Date Marline Richard MD [address] [place] [address] PCP - General Family Medicine 04/21/20 documented as of this encounter
--- OUTSIDE RECORDS SUMMARY | 2024-05-08 09:59 | XMS_ITS | Encounter Summary ---
Author Organization [facility] Address [address] [place] [phone] Phone Care Team Providers Care Cullet Crusher And Washer Name Role Phone YangLizy AUTOMOTIVE PARTS COUNTER ASSOCIATE Primary Care Provider [phone] Encounter Details Date Type Department Care Team ([facility] st Contact Info) Description 04/20/2024 Treatment [facility] [address] [address] Allen Koroma MD [address] [address] Social History Tobacco Use Types [...] care for end stage renal disease. Attending Motor Coach Driver: ALLEN KOROMA MD Dialysis Location: [facility] Schedule: Shift: 1 HOME MEDICATIONS Current [facility] Outpatient Medications amLODIPine (NORVASC) 10 MG [...] 2 (two) times a day [facility] 100 Units under the skin Start Date: Current [facility] Allergies Allergen: MIRTAZAPINE Reaction: Other (see [...] on filedocumented in this encounter Care Teams Cullet Crusher And Washer Relationship Specialty Start Date End Date Lizy Soria NP [address] [place] [address] PCP - General Nurse Practitioner 12/17/23 documented as of this encounter
--- OUTSIDE RECORDS SUMMARY | 2024-05-08 09:59 | XMS_ITS | Encounter Summary ---
Author Organization [employer] Address [address] [facility] [address] [place] [address] Care Team Providers Care Fisher Line Name Role Phone Marline Richard MD Primary Care Provider [phone] Encounter Details Date Type Department Care Team ([facility] st Contact Info) Description 02/15/2023 Orders Only [facility] [address] [place] [address] Marline Richard MD [address] [place] [address] Essential hypertension Social History Tobacco Use Types [...] Description 07/21/2024 1:00 PM EDT Office Visit [facility] OPT[facility] [address] [place] [address] Jeff, Leslie, OD [address] [place] [address] documented as of this encounter Goals Goal [...] documented as of this encounter Care Teams Fisher Line Relationship Specialty Start Date End Date Marline Richard MD [address] [place] [address] PCP - General Family Medicine 04/21/20 documented as of this encounter
--- OUTSIDE RECORDS SUMMARY | 2024-05-08 09:59 | XMS_ITS | Data Portability ---
Author Organization [employer] [place] [facility] [place] Address [address] [place] [address] Care Team Providers Care Business Support Administrator Name Role Phone [facility] OTHER [facility] OTHER Assessment Encounter Date Assessment Date Assessment LastModified by Organization Details LastModified Time 03/22/2022 03/22/2022 I have reviewed and agree with the Assessment and Plan as documented by the Cd Technician. I provided real-time medical direction via phone [...] Assessment and Plan as documented by the Cd Technician. Patient given the opportunity to ask questions. [...] but is anuric at baseline now. Per employment advisor on the scene, vital signs show that he is orthostatic. He is not tachycardic at baseline. His mentation is within normal limits. Impression implant: Likely hypotension related to fluid shifts after change in hemodialysis schedule. Asked him to follow-up tomorrow with his spot sprayer at his hemodialysis center. Encourage p.o. intake. [...] Name and Address Organization Details Recorded Time 53843 metformin medicatio n Not available Not available Not available 02/03/2024 6809 RxNorm Not Available [facility] - production 4 13:24:19 38065 mirtazapi ne medicatio n Not available Not available Not available 02/03/2024 42938 RxNorm Not Available [facility] - production 13:24:19 [...] Not Available Not Available Not Available FreeStyle Fenton Lite kit USE TO TEST BLOOD SUGAR [...] /min 124 mm[Hg] 55 mm[Hg] Not Available [facility] - production 3 19:28:13 Date Recorded Oxygen saturation Oxygen saturation in Arterial blood by Pulse oximetry Body temperature Respiratory rate Heart rate Systolic blood pressure Diastolic blood pressure Provider Name and Address Organization Details Last Updated DateTime 4 99 % 99 % 99.3 [degF] 18 /min 58 /min 100 mm[Hg] 55 mm[Hg] Not Available [facility] - production 4 15:13:38 Date Recorded Respiratory rate Body temperature Oxygen saturation Oxygen saturation in Arterial blood by Pulse oximetry Heart rate Systolic blood pressure Diastolic blood pressure Provider Name and Address Organization Details Last Updated DateTime 3 18 /min 98.3 [degF] 98 % 98 % 86 /min 148 mm[Hg] 88 mm[Hg] Not Available [facility] - production 3 11:12:30 Social History None recorded. Functional Status None recorded. Mental Status None recorded. Family History Nothing Reported. Medical History No medical history recorded. Past Encounters Encounter ID Performer Location Encounter Start Date Encounter Closed Date Diagnosis/Indication Diagnosis SNOMED-CT Code Diagnosis ICD10 Code Diagnosis Note [id number] Ned López MD [facility] [address] [place] [address] [phone] 03/22/2022 11:12:28 03/27/2022 11:25:26 Foot pain 91974789 M79.673 [id number] Michael Thacker MD Main [facility] [address] [place] [address] [id number] 02/19/2023 19:28:08 02/20/2023 13:35:32 Viral upper respiratory tract infection 504017032 J06.9 [id number] Marjan Dale MD Main - [facility] [address] [place] [address] [phone] 02/03/2024 15:13:32 02/03/2024 21:25:25 End stage renal failure on dialysis 931430292 N18.6 Health Concerns Section Related Observation LastModified by Organization Detai ls LastModified Time None Recorded Concern Status LastModified by Organization Details LastModified Time None Recorded Advance Directives Directive None Recorded Payers Encounter Date Sequence Insurance Name Policy Number Policy Lazo Covered Member ID Lazo Member ID Guarantor Name 03/22/2022 1 [facility] - DOS PRIOR TO 2022 - DUAL ELIGIBLE (MEDICARE REPLACEMENT/ADV ANTAGE - HMO) Kingsley Johnson [id number] Kingsley Johnson 02/19/2023 1 [facility] - DOS ON OR AFTER 2022 - DUAL ELIGIBLE - CARE HOME OPTIONS AND ONE CARE (MEDICARE REPLACEMENT/ADV ANTAGE - HMO) Kingsley Johnson [id number] Kingsley Johnson 02/03/2024 1 [facility] - DOS ON OR AFTER 2022 - DUAL ELIGIBLE - CARE HOME OPTIONS AND ONE CARE (MEDICARE REPLACEMENT/ADV ANTAGE - HMO) Kingsley Johnson [id number] Kingsley Johnson Notes Date Note Type Note [...] ................... ................... ................... ................... ................... ................... ........ Cd Technician Note: Pt states he has part of [...] surgeon but he would not give more. [facility] consulted. Pt given 15mg IM toradol. Red flags discussed ................... ................... ................... ................... ................... ................... ................... ........ Disposition: Fulfilled Ned López MD [address] [facility],[address], [place], [address], [email or web address] 03/27/2022 10:09:04 02/19/2023 text/html HPI: Hx CKD [...] CHUYITA---- 02/18 5:08p call to member via Technology Sales Representative [id number], as we can not see member this evening due to capacity, no answer and VM left to call back, will place on the schedule for tomorrow 02/19- AAdithya ................... ................... ................... ................... ................... ................... ................... ........ Cd Technician Note From Rojelio Rendon: Pt reports 5 days of URI symptoms of dry cough not feeling well and nasal congestion. Denies any fever chills denies any N/VD denies any sob denies any pain. Reports that he has been feeling better days and symptoms are improving. On scene vs taken and Covid flu done [facility] was called and cleared. ................... ................... ................... ................... ................... ................... ................... ........ Disposition: Fulfilled Michael Thacker MD [address] [place] [address],[address], [place], [address], [employer] 02/19/2023 23:36:12 02/03/2024 text/html HPI: Patient on [...] ................... ................... ................... ................... ................... ................... ........ Cd Technician Note From Serge Cordova: Dispatched to above [...] has been taking his medications as directed. [facility] consulted. Pt informed of re flags and when to seek further medical attention. Pt found seated in wheel chair speaking in full clear sentences with no signs of distress. AO and GCS-15. PERRL. Skin P/W/D. Airway open and lung sounds clear in all stephenson. ABD soft non tender. Rest exam unremarkable. ................... ................... ................... ................... ................... ................... ................... ........ [facility] Consulted: Marjan Dale ................... ................... ................... ................... ................... ................... ................... ........ Disposition: Hilario Dale MD [address] [facility],[address], [place], [address], [employer] 02/03/2024 20:08:16
--- OUTSIDE RECORDS SUMMARY | 2024-05-08 09:59 | XMS_ITS | Encounter Summary ---
Author Organization [facility] Address [address] [place] [phone] Phone Care Team Providers Care Inspection Engineer Name Role Phone Lizy Soria WATCH TRAIN ASSEMBLER Primary Care Provider [phone] Encounter Details Date Type Department Care Team ([facility] st Contact Info) Description 04/13/2024 Treatment [facility] [address] [phone] Allen Koroma MD [address] [address] Social History Tobacco Use Types [...] care for end stage renal disease. Attending Rating Officer: ALLEN KOROMA MD Dialysis Location: DIALYSIS Schedule: Shift: 1 OVERVIEW Patient is stable. HOME MEDICATIONS Medications reviewed. Current [facility] Outpatient Medications amLODIPine (NORVASC) 10 MG [...] 2 (two) times a day Start Date: [facility] Inject 100 Units under the [...] on filedocumented in this encounter Care Teams Inspection Engineer Relationship Specialty Start Date End Date Lizy Soria NP [address] [place] [address] PCP - General Nurse Practitioner 12/17/23 documented as of this encounter
--- OUTSIDE RECORDS SUMMARY | 2024-05-08 09:59 | XMS_ITS | Encounter Summary ---
Author Organization [employer] Address [address] [facility] 7t [place] [address] Care Team Providers Care Pit Steward Name Role Phone Marline Richard MD Primary Care Provider [phone] Reason for Referral * Cardiology (Routine) - Pending Review Specialty Diagnoses / Procedures Referred By Contac t Referred To Contact Diagnoses Preop examination Procedures ECG 12 lead Iliana Oswald MD [address] [place] [address] Phone: tel: fax: Referral ID Status Reason Start Date Expiration Date V isits Requested Visits Authorized [id number] Pending Review 04/30/2024 04/30/2025 1 1 Reason for Visit * Reason Comments Pre-op Exam Left eye Encounter Details Date Type Department Care Team ([facility] st Contact Info) Description 04/30/2024 1:30 PM EST Office Visit [facility] [address] [place], [place] [phone] Iliana Oswald MD [address] [place], [place] [phone] Preop examination (Primary Dx); Type 2 diabetes mellitus with chronic kidney disease, with long-term current use of insulin, unspecified CKD stage (CMS/HCC); Primary insomnia; Essential hypertension Social History Tobacco Use Types [...] 1:18 PM EST documented in this encounter Progress Notes * Iliana Oswald MD - 04/30/2024 1:30 PM EST Subjective Patient ID: Kingsley Rivero is a 69 y.o. male who presents for Pre-op Exam (Left eye ). Mr. Rivero is a 69-year-old male patient of Dr. Boyd here for a preop evaluation as he is scheduled for bilateral cataract surgery under local anesthesia through with [place] [facility] [place]. Patient has multiple chronic medical problems including type 2 diabetes, stable hypertension, h yperlipidemia, end-stage renal disease on dialysis 3 times a week, BKA etc. patient is accompanied by his son today who plans to take him to his surgery. Patient has no new complaints today. States compliant with medications and dialysis treatment. Review of Systems Constitutional: Negative for activity change, chills, fever and unexpected weight change. Eyes: Positive for visual disturbance. Respiratory: Negative for cough, shortness of breath and wheezing. Cardiovascular: Negative for chest pain, palpitations and leg swelling. Gastrointestinal: Negative for abdominal pain and blood in stool. Endocrine: Negative for polydipsia and polyuria. Genitourinary: Negative for decreased urine volume, difficulty urinating, dysuria and hematuria. Musculoskeletal: Negative for arthralgias and gait problem. Skin: Negative for color change and rash. Neurological: Negative for dizziness and headaches. Hematological: Negative for adenopathy. Psychiatric/Behavioral: Negative for dysphoric mood, hallucinations, sleep disturbance and suicidalideas. The patient is not nervous/anxious. Objective BP 109/56 (BP Location: Left arm, Patient Position: Sitting, BP Cuff Size: Large adult) Pulse 68 Temp 97.1 ??F (36.2 ??C) (Oral) Resp 16 Ht 5' 9 (1.753 m) Wt 193 lb (87.5 kg) SpO2 96% BMI 28.50 kg/m?? Physical Exam Vitals reviewed. Constitutional: General: He is not in acute distress. Appearance: He is obese. HENT: Head: Normocephalic. Nose: No congestion. Mouth/Throat: Mouth: Mucous membranes are moist. Pharynx: Oropharynx is clear. Eyes: Pupils: Pupils are equal, round, and reactive to light. Cardiovascular: Rate and Rhythm: Normal rate and regular rhythm. Heart sounds: Normal heart sounds. No murmur heard. No gallop. Pulmonary: Effort: Pulmonary effort is normal. Breath sounds: Normal breath sounds. No wheezing. Abdominal: General: Bowel sounds are normal. Palpations: Abdomen is soft. Neurological: Mental Status: He is oriented to person, place, and time. Mental status is at baseline. Psychiatric: Behavior: Behavior normal. Assessment/Plan Diagnoses and all orders for this visit: Preop examination Comments: Mr. Rivero is cleared to have his cataract surgery done under local anesthesia. [facility]KG done at [facility] reviewed and was at baseline. Patient and son aware to give him all of his blood pressure medications day of his surgery. Okay to hold insulin until returns home when able to eat. Orders: - ECG 12 lead Type 2 diabetes mellitus with chronic kidney disease, with long-term current use of insulin, unspecified CKD stage (CMS/HCC) - POCT glucose manually resulted Primary insomnia Comments: Patient states that trazodone was giving him side effects of tremors so he stopped taking it. I took the liberty to discontinue it from his med list and gave him low-dose melatonin. Essential hypertension Comments: BP well-controlled on multiple agents prescribed by PCP and nephrology. Follow- up with dialysis as planned as well as PCP. Other orders - Melatonin 3 MG capsule; Take 1 capsule orally qhs documented in this encounter Plan of Treatment Upcoming Encounters Date Type Department Care Team (Late st Contact Info) Description 07/21/2024 1:00 PM EDT Office Visit [facility] [address] [place], [place] [phone] Lesile Aguilar, OD [address] [place] [address] Scheduled Orders Name Type Priority Associated Diagnoses [...] CKD stage (CMS/HCC) documented in this encounter Results * (ABNORMAL) POCT glucose manually resulted (04/30/2024 1:20 PM EST) Glucose Blood, POC 439(A) 60 - 200 mg/dL QC Media Lot # Comment:[id number] Lot# Expiration Date Comment:06/16/2024 Blood Capillary blood specimen / Unknown 04/30/2024 1:20 PM EST Iliana Oswald MD POINT OF CARE TEST ENTER/EDIT ORDERABLES Final Result documented in this encounter Visit Diagnoses Diagnosis Preop examination- Primary Unspecified pre-operative examination Type 2 diabetes mellitus with chronic kidney disease, with long-term current use of insulin, unspecified CKD stage (CMS/HCC) Primary insomnia Persistent disorder of initiating or maintaining sleep Essential hypertension Unspecified essential hypertension documented in this encounter Additional Health Concerns Assessment Noted Time PHQ-9 Depression Total Score: 0 08/02/19 24 1:47 PM EDT documented as of this encounter Care Teams Pit Steward Relationship Specialty Start Date End Date Marline Richard MD [address] [place] [address] PCP - General Family Medicine 04/21/20 documented as of this encounter
--- OUTSIDE RECORDS SUMMARY | 2024-05-08 09:59 | XMS_ITS | Clinical Summary ---
Author Organization [facility] Address [address] [place] [address] Phone Care Team Providers Care Household Personal Assistant Name Role Phone Marline Richard MD Primary Care Provider [phone] Allergies No known active allergies Medications No [...] 02/17/2022 Social Influencers of Health Screening 02/17/2022 Influenza Vaccine (#1) 2023 , 12/19/2021, 01/09/2021, Additional history exists Depression Screening 08/01/2024 08/02/2023 Diabetes: Blood Sugar Control Test (HGBA1C) 09/15/2024 03/18/2024, 03/18/2024, 02/10/2024, Additional history exists Hypertension/CHF/CAD Annual BMP Blood Test 01/21/2025 01/22/2024, 10/22/2023 Cholesterol Screening (Lipid Panel) 03/18/2029 03/18/2024, 07/15/2023 DTaP,Tdap,and Td Vaccines (3 - Td or Tdap) 03/14/2033 03/14/2023, 06/10/2012 Hepatitis B Vaccines Completed 12/14/2014, 05/12/2014, 02/15/2014 Zoster Vaccines Completed 04/21/2019, 12/09, 03/18/2015 Pneumococcal Vaccine: 50+ Years Completed 12/19/2021, 08/04/2012, 02/15/2005 RSV Immunization Patients 60+ Years Old Completed 02/25/2023 COVID-19 Vaccine Completed 02/10/2024, 06/2023, [...] mmol/L LAB CHEMISTRY METHOD 01/22/2024 11:37 AM [facility] Potassium 4.2 3.5 - 5.5 mmol/L LAB CHEMISTRY METHOD 01/22/2024 11:37 AM [facility] Comment:Hemolysis present Chloride 101 96 - 110 mmol/L LAB CHEMISTRY METHOD 01/22/2024 11:37 AM [facility] CO2 31 21 - 32 mmol/L LAB CHEMISTRY METHOD 01/22/2024 11:37 AM [facility] Anion Gap 5 3 - 11 LAB CHEMISTRY METHOD 01/22/2024 11:37 AM [facility] Glucose 121(H) 70 - 100 mg/dL LAB CHEMISTRY METHOD 01/22/2024 11:37 AM [facility] BUN 24 5 - 25 mg/dL LAB CHEMISTRY METHOD 01/22/2024 11:37 AM [facility] Creatinine 3.26(H) 0.70 - 1.30 mg/dL LAB CHEMISTRY METHOD 01/22/2024 11:37 AM [facility] eGFR 20(L) >=60 mL/min/1. 73m2 LAB CHEMISTRY METHOD 01/22/2024 11:37 AM [facility] Comment:Calculation based on the??Chronic Kidney Disease Epidemiology Collaboration (CKD-EPI) equation refit??without adjustment for race. BUN/Creatinine Ratio 7.4 LAB CHEMISTRY METHOD 01/22/2024 11:37 AM [facility] Calcium 9.1 8.5 - 10.5 mg/dL LAB CHEMISTRY METHOD 01/22/2024 11:37 AM [facility] AST (SGOT) 37 10 - 42 unit/L LAB CHEMISTRY METHOD 01/22/2024 11:37 AM [facility] Comment:Hemolysis present ALT (SGPT) 31 10 - 60 unit/L LAB CHEMISTRY METHOD 01/22/2024 11:37 AM [facility] Alkaline Phosphatase 147(H) 42 - 121 unit/L LAB CHEMISTRY METHOD 01/22/2024 11:37 AM [facility] Total Protein 6.8 6.0 - 8.0 g/dL LAB CHEMISTRY METHOD 01/22/2024 11:37 AM [facility] Albumin 3.2 3.2 - 5.0 g/dL LAB CHEMISTRY METHOD 01/22/2024 11:37 AM [facility] Total Bilirubin 0.6 0.0 - 1.4 mg/dL LAB CHEMISTRY METHOD 01/22/2024 11:37 AM [facility] Blood Venous blood specimen / Unknown Venipuncture / Unknown 01/22/2024 10:24 AM EST 01/22/2024 10:59 AM EST Kelsey DEAN LAB BLOOD ORDERABLES Final Re sult [facility] [place] [facility] [address] [place] [address], from Last 3 Months or Most Recently Relevant to Health Maintenance Insurance [employer] MEDICARE Member Subscriber Plan / Payer (Ef fective 2022-Present) Name:Kingsley Rivero Relation to Subscriber:Self Name:Kingsley Rivero Payer ID:[id number] Group ID:[id number] Type:Not on file Address: [place] [address] [address] [phone] Care Teams Household Personal Assistant Relationship Specialty Start Date End Date Marline Richard MD [address] [place] [address] [phone] PCP - General Mortgage Accounting Clerk 01/22/24
--- OUTSIDE RECORDS SUMMARY | 2024-05-08 09:59 | XMS_ITS | Encounter Summary ---
Author Organization [employer] Address [address] [facility] [address] [address] [place] [address] Care Team Providers Care Mechanic Recovery Name Role Phone Marline Richard MD Primary Care Provider [phone] Reason for Visit * Reason Comments Med Refill Encounter Details Date Type Department Care Team ([facility] Contact Info) Description 04/25/2023 Refill [facility] [address] [place], [place] [phone] Marline Richard MD [address] [place], [place] [phone] Phantom limb (CMS/HCC) Social History Tobacco Use [...] Description 07/21/2024 1:00 PM EDT Office Visit [facility] [address] [place], [place] [phone] JeffLeslie, OD [address] [place] [address] documented as of this encounter Goals Goal [...] documented as of this encounter Care Teams Mechanic Recovery Relationship Specialty Start Date End Date Marline Richard MD [address] [place], [place] [phone] PCP - General Family Medicine 04/21/20 documented as of this encounter
--- OUTSIDE RECORDS SUMMARY | 2024-05-08 09:59 | XMS_ITS | Encounter Summary ---
Author Organization [employer] Address [address] [facility] [address] [place] [address] Care Team Providers Care Link Fabric Machine Operator Name Role Phone Marline Richard MD Primary Care Provider [phone] Encounter Details Date Type Department Care Team [...] Description 07/21/2024 1:00 PM EDT Office Visit [facility] [address] [place] [address] Jeff, Leslie, OD [address] [place] [address] documented as of this encounter Goals Goal [...] documented as of this encounter Care Teams Link Fabric Machine Operator Relationship Specialty Start Date End Date Marline Richard MD [address] [place], [place] [phone] PCP - General Family Medicine 04/21/20 documented as of this encounter
--- OUTSIDE RECORDS SUMMARY | 2024-05-08 09:59 | XMS_ITS | Encounter Summary ---
Author Organization [employer] Address [address] [facility] [address] [place] [address] Care Team Providers Care Process Machine Operator Name Role Phone Marline Richard MD Primary Care Provider [phone] Encounter Details Date Type Department Care Team (Late Contact Info) Description 10/10/2022 Orders Only [facility] [address] [place] [address] Marline Richard MD [address] [place] [address] Essential hypertension (Primary Dx) Social History Tobacco [...] 07/21/2024 1:00 PM EDT Office Visit [facility] [address] [place] [address] Leslie Aguilar, OD [address] [place] [address] documented as of this encounter Visit Diagnoses Diagnosis Essential hypertension- Primary Unspecified essential hypertension documented in this encounter Additional Health Concerns Assessment Noted Time PHQ-9 Depression Total Score: 5 04/20/19 23 1:08 PM EST documented as of this encounter Care Teams Process Machine Operator Relationship Specialty Start Date End Date Marline Richard MD [address] [place] [address] PCP - General Family Medicine 04/21/20 documented as of this encounter
--- OUTSIDE RECORDS SUMMARY | 2024-05-08 09:59 | XMS_ITS | Encounter Summary ---
Author Organization [employer] Address [address] [facility] [address] [place] [address] Care Team Providers Care Lead Burner Helper Name Role Phone Marline Richard MD Primary Care Provider [phone] Encounter Details Date Type Department Care Team (Late Contact Info) Description 08/23/2022 Orders Only [facility] [address] [place] [address] Marline Richard MD [address] [place] [address] Hyperkalemia (Primary Dx) Social History Tobacco Use [...] Office Visit [facility] [address] [place] [address] Leslie Aguilar, OD [address] [place] [address] Scheduled Orders Name Type Priority Associated Diagnoses Orde r Schedule Basic Metabolic Panel Lab Routine Hyperkalemia Expected: 08/23/2022 (Approximate), Expires: 08/24/2023 documented as of this encounter Visit Diagnoses Diagnosis Hyperkalemia- Primary Hyperpotassemia documented in this encounter Additional Health Concerns Assessment Noted Time PHQ-9 Depression Total Score: 5 04/20/19 23 1:08 PM EST documented as of this encounter Care Teams Lead Burner Helper Relationship Specialty Start Date End Date Marline Richard MD [address] [place], [place] [phone] PCP - General Family Medicine 04/21/20 documented as of this encounter
--- OUTSIDE RECORDS SUMMARY | 2024-05-08 09:59 | XMS_ITS | Encounter Summary ---
Author Organization [facility] Address [address] [place] [address] [address] [place] [address] Phone Care Team Providers Care Vascular Surgery Physician Name Role Phone Yang Lizy TELLO Primary Care Provider [phone] Encounter Details Date Type Department Care Team ([facility] st Contact Info) Description 04/15/2024 Orders Only [facility] [address] [facility] [address] [place] [address] Bernardo Christie MD [address] [address] Social History Tobacco Use Types [...] Comments HEMOGLOBIN Routine 05/06/2024 3:00 AM EST LIH (HC) Routine 05/01/2024 3:00 AM EST PHOSPHATE ( PHOSPHORUS) Routine 05/01/2024 3:00 AM EST HEMOGLOBIN AND HEMATOCRIT, BLOOD Routine 04/29/2024 3:00 AM EST HEMOGLOBIN Routine 04/22/2024 3:00 AM EST LIH (HC) Routine 04/17/2024 3:00 AM EST KT/V NATURAL LOG, URR (HC) Routine 04/17/2024 3:00 AM EST LIH (HC) Routine 04/15/2024 3:00 AM EST KT/V NATURAL LOG, URR (HC) Routine 04/15/2024 3:00 AM EST CALCIUM PHOSPHORUS [...] in this encounter Results * (ABNORMAL) Hemoglobin (05/06/2024 3:00 AM EST) Hgb 8.9(L) 13.7 - 17.5 g/dL [facility] Hemoglobin x 3 26.7(L) 41.1 - 52.5 g/dL [facility] 05/06/2024 3:00 AM EST 05/07/2024 1:03 PM EST us Bernardo Christie MD LAB BLOOD ORDERABLES Final Resul t Performing Organization Address City/[facility] Co de Phone Number [facility] [address] [place] [address] * (ABNORMAL) Phosphorus (05/01/2024 3:00 AM EST) Phosphorus, Serum 5.8(H) 2.5 - 5.0 mg/dL [facility] 05/01/2024 3:00 AM EST 05/02/2024 1:34 PM EST Bernardo Christie MD LAB BLOOD ORDERABLES Final Resul t Performing Organization Address [facility] Co de Phone Number [facility] [address] [place] [address] * LIH (05/01/2024 3:00 AM EST) Lipemia Normal Normal [facility] Icterus Normal Normal [facility] Hemolysis Normal Normal [facility] 05/01/2024 3:00 AM EST 05/02/2024 1:34 PM EST us Bernardo Christie MD LAB [id number] ICITED RESULTS Final Result Performing Organization Address [facility] Co de Phone Number [facility] [address] [place] [address] * (ABNORMAL) Hemoglobin and hematocrit (04/29/2024 3:00 AM EST) Hgb 10.5(L) 13.7 - 17.5 g/dL [facility] Hematocrit 30.9(L) 40.1 - 51.0 % [facility] Hemoglobin x 3 31.5(L) 41.1 - 52.5 g/dL [facility] 04/29/2024 3:00 AM EST 05/01/2024 12:47 PM EST us Bernardo Christie MD LAB BLOOD ORDERABLES Final Resul t Performing Organization Address [facility] de Phone Number [facility] [address] [place] [address] * (ABNORMAL) Hemoglobin (04/22/2024 3:00 AM EST) Pathologist [facility] Hgb 10.8(L) 13.7 - 17.5 g/dL [facility] Hemoglobin x 3 32.4(L) 41.1 - 52.5 g/dL [facility] 04/22/2024 3:00 AM EST 04/23/2024 2:43 PM EST us Bernardo Christie MD LAB BLOOD ORDERABLES Final Resul t Performing Organization Address [facility] de Phone Number [facility] [address] [place] [address] * LIH (04/17/2024 3:00 AM EST) Pathologist [facility] Lipemia Normal Normal [facility] Icterus Normal Normal [facility] Hemolysis Normal Normal [facility] 04/17/2024 3:00 AM EST 04/18/2024 3:18 PM EST us Bernardo Christie MD LAB [id number] ICITED RESULTS Final Result Performing Organization Address [facility] de Phone Number [facility] [address] [place] [address] * (ABNORMAL) Kt/V Natural Log, URR (04/17/2024 3:00 AM EST) Pathologist [facility] Treatment Time 218 min [facility] Pre-Weight, lb [...] PM EST us Bernardo Christie MD LAB [id number] ICITED RESULTS Final Result Performing Organization Address [facility] de Phone Number [facility] [address] [place] [address] * (ABNORMAL) TSAT (04/15/2024 3:00 AM EST) Iron 144 65 - 175 ug/dL [facility] Transferrin 132(L) 215 - 365 mg/dL [facility] TIBC 185(L) 211 - 406 ug/dL [facility] Iron Saturation (TSat) 78(H) 22 - 52 % [facility] 04/15/2024 3:00 AM EST 04/16/2024 12:08 PM EST us Bernardo Christie MD LAB BLOOD ORDERABLES Final Resul t Performing Organization Address [facility] de Phone Number [facility] [address] [place] [address] * Protein, total (04/15/2024 3:00 AM EST) Total Protein 6.9 6.4 - 8.9 g/dL [facility] 04/15/2024 3:00 AM EST 04/16/2024 12:08 PM EST us Bernardo Christie MD LAB BLOOD ORDERABLES Final Resul t Performing Organization Address [facility] de Phone Number [facility] [address] [place] [address] * (ABNORMAL) Kt/V Natural Log, URR (04/15/2024 3:00 AM EST) BUN 74(H) 7 - 25 mg/dL [facility] 04/15/2024 3:00 AM EST 04/16/2024 12:08 PM EST us Bernardo Christie MD LAB [id number] ICITED RESULTS Final Result Performing Organization Address [facility] de Phone Number [facility] [address] [place] [address] * (ABNORMAL) Magnesium (04/15/2024 3:00 AM EST) Pathologist [facility] Magnesium 1.6(L) 1.9 - 2.7 mg/dL [facility] 04/15/2024 3:00 AM EST 04/16/2024 12:08 PM EST Bernardo Christie MD LAB BLOOD ORDERABLES Final Resul t Performing Organization Address [facility] de Phone Number [facility] [address] [place] [address] * LIH (04/15/2024 3:00 AM EST) Pathologist [facility] Lipemia Normal Normal [facility] Icterus Normal Normal [facility] Hemolysis Normal Normal [facility] 04/15/2024 3:00 AM EST 04/16/2024 12:08 PM EST us Bernardo Christie MD LAB [id number] ICITED RESULTS Final Result Performing Organization Address [facility] de Phone Number [facility] [address] [place] [address] * Electrolyte panel (04/15/2024 3:00 AM EST) Pathologist [facility] Sodium 138 136 - 145 mEq/L [facility] Potassium 4.4 3.4 - 5.0 mEq/L [facility] Chloride 99 98 - 107 mEq/L [facility] Bicarbonate (CO2) 26 21 - 31 mEq/L [facility] Anion Gap 13 3 - 14 mEq/L [facility] 04/15/2024 3:00 AM EST 04/16/2024 12:08 PM EST us Bernardo Christie MD LAB BLOOD ORDERABLES Final Resul t Performing Organization Address [facility] Co de Phone Number [facility] [address] [place] [address] * (ABNORMAL) Lactate dehydrogenase (04/15/2024 3:00 AM EST) LDH 283(H) 120 - 246 U/L [facility] 04/15/2024 3:00 AM EST 04/16/2024 12:08 PM EST us Bernardo Christie MD LAB BLOOD ORDERABLES Final Resul t Performing Organization Address [facility] Phone Number [facility] [address] [place] [address] * (ABNORMAL) Glucose, random (04/15/2024 3:00 AM EST) Glucose 230(H) 74 - 109 mg/dL [facility] 04/15/2024 3:00 AM EST 04/16/2024 12:08 PM EST us Bernardo Christie MD LAB BLOOD ORDERABLES Final Resul t Performing Organization Address [facility] de Phone Number [facility] [address] [place] [address] * (ABNORMAL) Creatinine, serum (04/15/2024 3:00 AM EST) Creatinine 6.88(H) 0.70 - 1.30 mg/dL [facility] 04/15/2024 3:00 AM EST 04/16/2024 12:08 PM EST us Bernardo Christie MD LAB BLOOD ORDERABLES Final Resul t Performing Organization Address [facility] Phone Number [facility] [address] [place] [address] * (ABNORMAL) Bilirubin, total (04/15/2024 3:00 AM EST) Total Bilirubin <0.2(L) 0.3 - 1.2 mg/dL [facility] 04/15/2024 3:00 AM EST 04/16/2024 12:08 PM EST us Bernardo Christie MD LAB BLOOD ORDERABLES Final Resul t Performing Organization Address [facility] de Phone Number [facility] [address] [place] [address] * AST (04/15/2024 3:00 AM EST) AST (SGOT) 24 <34 U/L [facility] 04/15/2024 3:00 AM EST 04/16/2024 12:08 PM EST us Bernardo Christie MD LAB BLOOD ORDERABLES Final Resul t Performing Organization Address [facility] de Phone Number [facility] [address] [place] [address] * (ABNORMAL) Calcium Phosphorus Product, Adjusted (04/15/2024 [...] PM EST us Bernardo Christie MD LAB [id number] ICITED RESULTS Final Result Performing Organization Address [facility] Co de Phone Number [facility] [address] [place] [address] * (ABNORMAL) Alkaline phosphatase (04/15/2024 3:00 AM EST) Alkaline Phosphatase 163(H) 46 - 116 U/L [facility] 04/15/2024 3:00 AM EST 04/16/2024 12:08 PM EST us Bernardo Christie MD LAB BLOOD ORDERABLES Final Resul t Performing Organization Address [facility] de Phone Number [facility] [address] [place] [address] * ALT (04/15/2024 3:00 AM EST) Pathologist [facility] ALT (SGPT) 30 10 - 49 U/L [facility] 04/15/2024 3:00 AM EST 04/16/2024 12:08 PM EST us Bernardo Christie MD LAB BLOOD ORDERABLES Final Resul t Performing Organization Address [facility] Phone Number [facility] [address] [place] [address] * (ABNORMAL) Ferritin (04/15/2024 3:00 AM EST) Pathologist [facility] Ferritin 1,450(H) 22 - 322 ng/mL [facility] 04/15/2024 3:00 AM EST 04/16/2024 12:08 PM EST us Bernardo Christie MD LAB BLOOD ORDERABLES Final Resul t Performing Organization Address [facility] de Phone Number [facility] [address] [place] [address] * (ABNORMAL) CBC and Differential (04/15/2024 3:00 AM EST) Pathologist [facility] DIFFERENTIAL MANUAL, 2 Not Indicated [facility] [...] Final Resul t [facility] [address] [place] [address] documented in this encounter Visit Diagnoses Not on filedocumented in this encounter Care Teams Vascular Surgery Physician Relationship Specialty Start Date End Date Lizy Soria NP [address] [place] [id number] PCP - General Nurse Practitioner 12/17/23 documented as of this encounter
--- OUTSIDE RECORDS SUMMARY | 2024-05-08 09:59 | XMS_ITS | Encounter Summary ---
Author Organization [employer] Address [address] [facility] [address] [place] [address] Care Team Providers Care Crib Tender Name Role Phone Marline Richard MD Primary Care Provider [phone] Encounter Details Date Type Department Care Team ([facility] Contact Info) Description 12/12/2022 Orders Only [facility] [address] [place] [address] Marline Richard MD [address] [place] [address] Social History Tobacco Use Types Packs/Day Years [...] Upcoming Encounters Date Type Department Care Team ([facility] Contact Info) Description 07/21/2024 1:00 PM EDT Office Visit [facility] [address] [place] [address] JeffLeslie henry, OD [address] [place] [address] documented as of this encounter Goals Goal [...] documented as of this encounter Care Teams Crib Tender Relationship Specialty Start Date End Date Marline Richard MD [address] [place] [address] PCP - General Family Medicine 04/21/20 documented as of this encounter
--- OUTSIDE RECORDS SUMMARY | 2024-05-08 09:59 | XMS_ITS | Encounter Summary ---
Author Organization [employer] Address [address] [facility] [address] [place] [address] Care Team Providers Care Radiation Oncology Nurse Name Role Phone Marline Richard MD Primary Care Provider [phone] Encounter Details Date Type Department Care Team ([facility] st Contact Info) Description 04/17/2024 Telephone [facility] [address] [place] [address] Marline Richard MD [address] [place] [address] Social History Tobacco Use Types Packs/Day Years [...] Description 07/21/2024 1:00 PM EDT Office Visit [facility] [address] [place] [id number] Leslie Aguilar OD [address] [place] [address] documented as of this encounter Goals Goal [...] documented as of this encounter Care Teams Radiation Oncology Nurse Relationship Specialty Start Date End Date Marline Richard MD [address] [place] [address] PCP - General Family Medicine 04/21/20 documented as of this encounter
--- OUTSIDE RECORDS SUMMARY | 2024-05-08 09:59 | XMS_ITS | Encounter Summary ---
Author Organization [employer] Address [address] [facility] [address] [place] [address] Care Team Providers Care Renal Dialysis Technician Name Role Phone Marline Richard MD Primary Care Provider Reason for Visit * Reason Comments Med Refill Encounter Details Date Type Department Care Team (Late Contact Info) Description 11/20/2022 Refill [facility] [address] [place] [address] Keesha Black MD [address] [place] [address] Social History Tobacco Use Types Packs/Day Years [...] Description 07/21/2024 1:00 PM EDT Office Visit [facility] OPT[facility] [address] [place] [address] Leslie Aguilar, OD [address] [place] [address] documented as of this encounter Visit Diagnoses Not on filedocumented in this encounter Additional Health Concerns Assessment Noted Time PHQ-9 Depression Total Score: 5 04/20/19 23 1:08 PM EST documented as of this encounter Care Teams Renal Dialysis Technician Relationship Specialty Start Date End Date Marline Richard MD [address] [place] [address] PCP - General Family Medicine 04/21/20 documented as of this encounter
[2024-05-08] MEDS: Acetaminophen 325 MG TABLET 975 MG PO (10:27)
[2024-05-08 10:46] LABS: MANUAL DIFF FLAG NO
[2024-05-08 10:47] LABS: Basophils Percent Auto 0.6 % (0-2); Eosinophils Absolute Auto 0.1 X10*3/uL (0.0-0.4); Hematocrit 28.1 % (42.0-52.0); Hemoglobin 9.8 g/dl (14.0-18.0); Imm Gran Abs Auto 0.04 X10*3/uL (0.00-0.03); Imm Gran Pct Auto 0.6 % (0.0-0.4); Lymphocytes Absolute Auto 1.6 X10*3/uL (1.2-4.9); Lymphocytes Percent Auto 23.9 % (20-40); Mean Corpuscular HGB Conc 34.9 g/dl (31.0-36.0); Mean Corpuscular Hemoglobin 31.9 pg (27.0-33.0); Mean Corpuscular Volume 91.5 fL (80.0-98.0); Mean Platelet Volume 9.8 fL (9.4-12.4); Monocytes Absolute Auto 0.6 X10*3/uL (0.1-1.2); Monocytes Percent Auto 9.3 % (2-11); Neutrophils Absolute Auto 4.4 x10*3/uL (2.0-8.3); Neutrophils Percent Auto 63.6 % (45-73); Platelet Count 186 X10*3/uL (160-400); Red Blood Count 3.07 X10*6/uL (4.60-5.80); Red Cell Distribution Width 13.7 % (11.0-16.0); White Blood Count 6.9 X10*3/uL (4.8-10.8)
[2024-05-08 11:03] LABS: Anion Gap 14 (12-20); Blood Urea Nitrogen 39 mg/dL (9-16); Calcium 9.5 mg/dL (8.4-10.2); Carbon Dioxide 32 mmol/L (22-29); Chloride 98 mmol/L (96-108); Creatinine Clr Calc Pharmacy 15.1; Estimated Glomerular Filt Rate 12; Glucose Random 124 mg/dL (60-115); Potassium 3.9 mmol/L (3.3-5.1); Sodium 140 mmol/L (135-145)
--- NOTE | 2024-05-08 11:47 | ED.GENADULT ---
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 Patient reports that he developed a headache prior to dialysis this morning that got worse during dialysis. He complained of light sensitivity and lightheadedness and nausea. He reports the same thing happened last week at dialysis. He was ultimately sent to [facility]. The patient reports that he had a CT scan, was checked out, and they told me it was a migraine. Patient reports he was given Tylenol with good improvement in his symptoms. He was given Tylenol about an hour prior to my evaluation of the patient and he reports his headache has nearly resolved Related Data Home Medications ?Medication ?Instructions ?Recorded ?Confirmed sertraline 50 mg tablet 50 mg PO DAILY 04/27/21 05/08/24 albuterol sulfate 90 mcg/actuation 2 puff inhalation Q4H PRN Wheezing 01/13/23 05/08/24 aerosol inhaler (Ventolin HFA) aspirin 81 mg chewable tablet 1 tab PO DAILY 01/13/23 05/08/24 atorvastatin 80 mg tablet 80 mg PO BEDTIME 01/13/23 05/08/24 docusate sodium 100 mg capsule 100 mg PO BEDTIME 01/13/23 05/08/24 ezetimibe 10 mg tablet 10 mg PO DAILY 01/13/23 05/08/24 flash glucose scanning reader 01/13/23 03/09/24 (FreeStyle Daniel 2 [place]) flash glucose sensor (FreeStyle 01/13/23 03/09/24 Daniel 2 Sensor kit) hydralazine 50 mg tablet 100 mg PO TID 01/13/23 05/08/24 tamsulosin 0.4 mg capsule 0.4 mg PO BEDTIME 01/13/23 05/08/24 insulin degludec 100 unit/mL (3 25 unit subcut DAILY 09/26/23 03/09/24 mL) subcutaneous pen (Tresiba FlexTouch U-100 insulin) trazodone 100 mg tablet 50 mg PO BEDTIME PRN insomnia 09/26/23 05/08/24 blood sugar diagnostic (OneTouch #10 ea 12/18/23 03/09/24 Ultra Test strips) blood-glucose meter (OneTouch #1 ea 12/18/23 03/09/24 Ultra2 Meter) isosorbide mononitrate 120 mg 120 mg PO DAILY 12/18/23 05/08/24 tablet,extended release 24 hr losartan 50 mg tablet 50 mg PO BID 12/18/23 05/08/24 nifedipine 90 mg tablet,extended 90 mg PO DAILY 12/18/23 05/08/24 release 24 hr carvedilol 25 mg tablet 25 mg PO DAILY 05/08/24 05/08/24 cyclobenzaprine 10 mg tablet 5 mg DAILY 05/08/24 05/08/24 glipizide 10 mg tablet 10 mg PO DAILY 05/08/24 05/08/24 insulin lispro 100 unit/mL 3 - 10 unit subcut TID 05/08/24 05/08/24 subcutaneous pen (Humalog KwikPen (U-100) Insulin) Previous Rx's ?Medication ?Instructions ?Recorded omeprazole 40 mg capsule,delayed 40 mg PO DAILY #30 caps 02/14/23 release Allergies Allergy/AdvReac Type Severity Reaction Status Date / Time metformin AdvReac Unknown Verified 05/08/24 09:07 Review of Systems Constitutional: Constitutional: Denies body ache(s), Denies chills, Denies fever(s), Denies frequent falls and Reports headache(s) Eyes: Eyes: Denies blurry vision, Denies exophthalmos, Denies seeing flashes, Reports photophobia and Denies spots in vision ENT: Denies vertigo, Denies dizziness, Denies dry mouth and Reports headache(s) Cardiovascular: Cardiovascular: Denies chest pain and Denies dyspnea Respiratory: Respiratory: Denies cough and Denies dyspnea Gastrointestinal: Gastrointestinal: Denies abdominal pain, Denies nausea and Denies vomiting Musculoskeletal: Musculoskeletal: Denies back pain Integumentary/Breasts: Skin/Breast: Denies rash Neurologic: Denies vertigo, Denies dizziness, Denies frequent falls and Reports headache(s) Psychiatric: Psychiatric: Denies anxiety PMFSH Past Medical History Medical History Uncontrolled hypertension CAD (coronary artery disease) Fluid overload Anemia in ESRD (end-stage renal disease) Anemia PAD (peripheral artery disease) Acute kidney injury superimposed on CKD Hypertension Type 2 diabetes mellitus ESRD (end stage renal disease) CKD (chronic kidney disease) stage 3, GFR 30-59 ml/min Renal artery stenosis Anemia Erectile dysfunction (HFpEF) heart failure with preserved ejection fraction Osteomyelitis CKD stage 3 due to type 2 diabetes mellitus LIVE (iron deficiency anemia) Hyperlipidemia associated with type 2 diabetes mellitus Kidney disease High cholesterol HTN (hypertension) Diabetes Surgical History Status post transmetatarsal amputation of left foot Hx of amputation History of amputation of right forefoot H/O shoulder surgery Family History Family History Other No family history of coronary artery disease Social History Social History Household Members: None Housing: Apartment Do you presently have visiting nurse or other home services: Yes ([facility] ONLY) Alcohol intake: current Alcohol intake frequency: holidays/special occasions only Alcohol type: beer Comment: previously medicated with IV morphine Patient Tobacco Use Status: Never used Tobacco Tobacco use type: Cigarette Second Hand Smoke Exposure: No Substance Use Type: Crack/Cocaine Advance Directives: Yes Advance Directives on File: Yes Advance Directives Date on File: 02/02/22 service: No Current occupational status: retired Physical Exam ED Vital Signs: Vital Signs - 24 hr 05/08/24 09:04 05/08/24 11:57 Temperature 97.8 F 97.3 F Pulse Rate 71 71 Respiratory Rate 18 18 Blood Pressure 98/29 L 119/54 L Pulse Oximetry 94 96 Oxygen Delivery Method Room Air Room Air BMI result Body Mass Index 28.1 Const General: healthy appearing, comfortable, no acute distress, alert and awake Nutritional Appearance: well nourished Orientation/consciousness: patient oriented x3 HENMT Head: Yes normocephalic and Yes atraumatic Eyes Eyelids: Yes eyelids normal Conjunctivae: conjunctivae normal Sclerae: sclerae normal Corneas: corneas normal Pupils: Equal, round and reactive pupils present EOM: EOMs intact bilaterally Direct Ophthalmoscopy: photophobia Neck Neck: Yes full ROM GI Inspection: No distended Palpation (GI): Soft to palpation, not firm, nontender, no guarding and not rigid Skin General skin exam: elasticity normal Neuro General: patient oriented x3 Cranial nerves: Yes CN's II-XII intact bilaterally, Yes Equal, round and reactive pupils present and Yes Bilaterally intact EOM present Cognition (Neuro): normal cognition Extrem Other: Moving all extremities well without any obvious deformities Course Reevaluation(s) Reevaluation #1: I received records from [facility] dated 05/01/2024 with a discharge date of 05/02/2024. The patient did in fact have a head CT without contrast as well as a head and neck CT angiography that did not show any evidence of intracranial mass, hematoma or large vessel occlusion. Given that the patient is currently asymptomatic, appears well with no neuro deficits we will discharge the patient home with Tylenol Time: 12:02 Medications Administered Discontinued Medications Generic Name Dose Route Start Last Admin Trade Name Tuckerq PRN Reason Stop Dose Admin Acetaminophen 975 mg 05/08/24 10:22 05/08/24 10:27 Acetaminophen 325 Mg Tablet PO 05/08/24 10:23 975 mg ONCE ONE Administration Medical Decision Making Medical Decision Making [facility] [place] Narrative: 69-year-old male presents for evaluation of a headache that started prior to dialysis. Denies any flu-like symptoms. He had labs that show anemia of chronic disease it was consistent with his known history of anemia. He is a dialysis patient and has elevated BUN and creatinine which is consistent with a baseline. No other significant abnormality. Potassium was normal at 3.9. The patient did complete most of his dialysis treatment this afternoon. He was mildly hypotensive which is likely related to his dialysis treatment today. No evidence of infection. His headache has improved and nearly resolved. He has no neuro deficits. Plan to confirm records at [facility] and reviewed the patient's imaging if you need had some. Differential Diagnosis Differential Diagnoses: The differential diagnosis associated with the presentation includes Acute headache Migraine headache Tension headache Cluster headache Intracranial hemorrhage Lab Data [facility] [place] Lab Attestation statement: I reviewed the patient's lab results. As above 05/08/24 10:39 05/08/24 10:39 Labs: Lab Results 05/08/24 Range/Units 10:39 WBC 6.9 (4.8-10.8) X10*3/uL RBC 3.07 L (4.60-5.80) X10*6/uL Hgb 9.8 L (14.0-18.0) g/dl Hct 28.1 L (42.0-52.0) % MCV 91.5 (80.0-98.0) fL MCH 31.9 (27.0-33.0) pg MCHC 34.9 (31.0-36.0) g/dl RDW 13.7 (11.0-16.0) % Plt Count 186 (160-400) X10*3/uL MPV 9.8 (9.4-12.4) fL Immature Gran % (Auto) 0.6 H (0.0-0.4) % Neut % (Auto) 63.6 (45-73) % Lymph % (Auto) 23.9 (20-40) % [place] % (Auto) 9.3 (2-11) % Eos % (Auto) 2.0 (0-4) % Baso % (Auto) 0.6 (0-2) % Lymph # (Auto) 1.6 (1.2-4.9) X10*3/uL [place] # (Auto) 0.6 (0.1-1.2) X10*3/uL Eos # (Auto) 0.1 (0.0-0.4) X10*3/uL Baso # (Auto) 0.0 (0.0-0.2) X10*3/uL Abs Immat Gran (auto) 0.04 H (0.00-0.03) X10*3/uL Absolute Neuts (auto) 4.4 (2.0-8.3) x10*3/uL Absolute Nucleated RBC 0.000 (0.0-0.012) X10*3/uL Nucleated RBC % (auto) 0.0 (0.0-0.2) /100WBC Sodium 140 (135-145) mmol/L Potassium 3.9 D (3.3-5.1) mmol/L Chloride 98 (96-108) mmol/L Carbon Dioxide 32 H (22-29) mmol/L Anion Gap 14 (12-20) BUN 39 H (9-16) mg/dL Creatinine 4.87 H* (0.5-1.4) mg/dL Estim Creat Clear Calc 15.1 Estimated GFR 12 Random Glucose 124 H (60-115) mg/dL Calcium 9.5 (8.4-10.2) mg/dL Tests considered The following testing was considered but not selected: Consider CT scan of the brain but this was performed last week at [facility], attempting to get records Discharge Plan Discharge Clinical Impression: Acute headache Patient Disposition: Home, Self-Care Instructions: Acute Headache (ED) Additional Instructions: Your workup in the ER today was reassuring. This includes your exam and lab work. You may continue to use Tylenol as needed for pain. I reviewed your records from [facility] from last week and they did a CT scan of your head as well as neck that did not show any concerning findings I did not see a need to repeat these images today. Follow-up with your primary doctor, return for new or worsening symptoms Prescriptions: No Action atorvastatin 80 mg tablet 80 mg PO BEDTIME tamsulosin 0.4 mg capsule 0.4 mg PO BEDTIME docusate sodium 100 mg capsule 100 mg PO BEDTIME aspirin 81 mg tablet,chewable 1 tab PO DAILY hydralazine 50 mg tablet 100 mg PO TID albuterol sulfate [Ventolin HFA] 90 mcg/actuation HFA aerosol inhaler 2 puff INHALATION Q4H PRN (Reason: Wheezing) ezetimibe 10 mg tablet 10 mg PO DAILY (DME) FreeStyle Daniel 2 Sensor Kit MISCELLANEOUS Q2W (DME) FreeStyle Daniel 2 [place] Misc MISCELLANEOUS QAM trazodone 100 mg tablet 50 mg PO BEDTIME PRN (Reason: insomnia) insulin degludec [Tresiba FlexTouch U-100] 100 unit/mL (3 mL) insulin pen 25 unit subcut DAILY glipizide 10 mg Tablet 10 mg PO DAILY carvedilol 25 mg tablet 25 mg PO DAILY Protocol: Hold for SBP/HR < HOLD for SBP < : 90 HOLD for HR < : 60 cyclobenzaprine 10 mg tablet 5 mg DAILY insulin lispro [Humalog KwikPen Insulin] 100 unit/mL insulin pen 3 - 10 unit subcut TID omeprazole 40 mg capsule,delayed release(DR/EC) 40 mg PO DAILY Qty: 30 0RF sertraline 50 mg tablet 50 mg PO DAILY (DME) blood-glucose meter [OneTouch Ultra2 Meter] Misc See Rx Instructions .ROUTE DIRECTED Qty: 1 Rx Instructions: As directed losartan 50 mg tablet 50 mg PO BID (DME) OneTouch Ultra Test Strip See Rx Instructions .ROUTE .MEDSUPPLY Qty: 10 Rx Instructions: As directed isosorbide mononitrate 120 mg tablet extended release 24 hr 120 mg PO DAILY nifedipine 90 mg tablet extended release 24hr 90 mg PO DAILY Print Language: [place]
[2024-05-08 11:57] VITALS: BP 119/54; PULSE 71; RESP 18; TEMP 36.3; O2SAT 96
--- NOTE | 2024-05-08 12:21 | PC.NURSE ---
pt ready for discharge-- Miguelito transport requested
[2024-05-08 14:05] VITALS: BP 119/54; PULSE 71; RESP 18; TEMP 36.3; O2SAT 96
== END 2024-05-08 14:06 | disposition home or self-care (01) ==
PROVIDERS: Emergency Provider Emergency Medicine; PCP General Practice
DX: R51.9 Headache, unspecified (principal); Z79.899 Other long term (current) drug therapy
CPT/HCPCS: 36415; 80048; 85025; 99283; 99284

== ENCOUNTER 2024-05-18 14:46 | Emergency (ER) | payer OTHER, SELFPAY ==
--- NOTE | 2024-05-18 | ECG_ITS ---
Test Reason : weakness Blood Pressure : */* mmHG Vent. Rate : 62 BPM Atrial Rate : 62 BPM P-R Int : 276 ms QRS Dur : 88 ms QT Int : 432 ms P-R-T Axes : 31 19 56 degrees QTcB Int : 438 ms Sinus rhythm with 1st degree A-V block Otherwise normal ECG When compared with ECG of 01-May-2024 12:04, No significant change was found Referred By: Nikolay Peña Electronically Signed By: ALONA FOOTE
--- NOTE | ~2024-05-18 | XR_ITS ---
EXAMINATION: XR CHEST CLINICAL INFORMATION: hypotesnion COMPARISON: October 08, 2023. TECHNIQUE: Frontal view of the chest was obtained. FINDINGS: No consolidation, pleural effusion or pneumothorax. No hyperinflation. Right-sided central venous line have been removed. Cardiomediastinal silhouette is prominent, unchanged. Multilevel thoracic stenosis. Radiopaque anchors in the greater tuberosity left humerus. XR/XR chest 1V IMPRESSION: Status post removal right-sided central venous line. No acute airspace disease. Cardiomegaly versus pericardial effusion. Electronically signed by: Clifford Bullard MD 05/18/2024 03:45 PM EDT
--- NOTE | 2024-05-18 14:56 | ED.GENADULT ---
HPI - General Adult General Chief complaint: Weakness Stated complaint: L SIDE PAIN,AGUIRRE,LOW BP 76/46 PER EMS Time Seen by Provider: 05/18/24 14:55 History of Present Illness ED Provider: Casey ARCOS narrative: The patient is a 69-year-old male with a history of chronic renal failure on dialysis. He was well yesterday and over the weekend. This morning he went for his usual Saturday morning dialysis at around 05:30. He was feeling fine before going to dialysis. While at dialysis he experienced some sense of dizziness which is not unusual. He finished dialysis at around 09:30 and went home. He ate some breakfast at home but subsequently developed a headache and some abdominal pain and became very anxious. His was concerned that he seemed unwell and called her son who called 911. Paramedics arrived and found the patient with a blood pressure of 76/42 and they brought him to the hospital. No particular chest pain. The patient was feeling somewhat short of breath.. No pleuritic pain. He had nausea but no vomiting. Related Data Home Medications ?Medication ?Instructions ?Recorded ?Confirmed sertraline 50 mg tablet 50 mg PO DAILY 04/27/21 05/08/24 albuterol sulfate 90 mcg/actuation 2 puff inhalation Q4H PRN Wheezing 01/13/23 05/08/24 aerosol inhaler (Ventolin HFA) aspirin 81 mg chewable tablet 1 tab PO DAILY 01/13/23 05/08/24 atorvastatin 80 mg tablet 80 mg PO BEDTIME 01/13/23 05/08/24 docusate sodium 100 mg capsule 100 mg PO BEDTIME 01/13/23 05/08/24 ezetimibe 10 mg tablet 10 mg PO DAILY 01/13/23 05/08/24 flash glucose scanning reader 01/13/23 03/09/24 (FreeStyle Daniel 2 [place]) flash glucose sensor (FreeStyle 01/13/23 03/09/24 Daniel 2 Sensor kit) hydralazine 50 mg tablet 100 mg PO TID 01/13/23 05/08/24 tamsulosin 0.4 mg capsule 0.4 mg PO BEDTIME 01/13/23 05/08/24 insulin degludec 100 unit/mL (3 25 unit subcut DAILY 09/26/23 03/09/24 mL) subcutaneous pen (Tresiba FlexTouch U-100 insulin) trazodone 100 mg tablet 50 mg PO BEDTIME PRN insomnia 09/26/23 05/08/24 blood sugar diagnostic (OneTouch #10 ea 12/18/23 03/09/24 Ultra Test strips) blood-glucose meter (OneTouch #1 ea 12/18/23 03/09/24 Ultra2 Meter) isosorbide mononitrate 120 mg 120 mg PO DAILY 12/18/23 05/08/24 tablet,extended release 24 hr losartan 50 mg tablet 50 mg PO BID 12/18/23 05/08/24 nifedipine 90 mg tablet,extended 90 mg PO DAILY 12/18/23 05/08/24 release 24 hr carvedilol 25 mg tablet 25 mg PO DAILY 05/08/24 05/08/24 cyclobenzaprine 10 mg tablet 5 mg DAILY 05/08/24 05/08/24 glipizide 10 mg tablet 10 mg PO DAILY 05/08/24 05/08/24 insulin lispro 100 unit/mL 3 - 10 unit subcut TID 05/08/24 05/08/24 subcutaneous pen (Humalog KwikPen (U-100) Insulin) Previous Rx's ?Medication ?Instructions ?Recorded omeprazole 40 mg capsule,delayed 40 mg PO DAILY #30 caps 02/14/23 release Allergies Allergy/AdvReac Type Severity Reaction Status Date / Time metformin AdvReac Unknown Verified 05/18/24 15:26 Review of Systems Review of Systems: Yes all other systems are reviewed and are negative PMFSH Past Medical History Medical History Uncontrolled hypertension CAD (coronary artery disease) Fluid overload Anemia in ESRD (end-stage renal disease) Anemia PAD (peripheral artery disease) Acute kidney injury superimposed on CKD Hypertension Type 2 diabetes mellitus ESRD (end stage renal disease) CKD (chronic kidney disease) stage 3, GFR 30-59 ml/min Renal artery stenosis Anemia Erectile dysfunction (HFpEF) heart failure with preserved ejection fraction Osteomyelitis CKD stage 3 due to type 2 diabetes mellitus LIVE (iron deficiency anemia) Hyperlipidemia associated with type 2 diabetes mellitus Kidney disease High cholesterol HTN (hypertension) Diabetes Surgical History Status post transmetatarsal amputation of left foot Hx of amputation History of amputation of right forefoot H/O shoulder surgery Family History Family History Other No family history of coronary artery disease Social History Social History Household Members: None Housing: Apartment Do you presently have visiting nurse or other home services: Yes ([employer] ATTEND[employer] ONLY) Alcohol intake: former Comment: previously medicated with IV morphine Patient Tobacco Use Status: Never used Tobacco Tobacco use type: Cigarette Smoked in Last 30 Days: No Second Hand Smoke Exposure: No Use of substances other than those prescribed or required for medical reasons: No Substance Use Type: Crack/Cocaine Advance Directives: Yes Advance Directives on File: Yes Advance Directives Date on File: 02/02/22 Do you have a plan to hurt others: No Plan service: No Current occupational status: retired Physical Exam ED Vital Signs: Vital Signs - 24 hr 05/18/24 15:24 05/18/24 16:00 05/18/24 17:43 Temperature 98.6 F 98.6 F 98 F Pulse Rate 66 62 64 Respiratory Rate 24 H 21 H 16 Blood Pressure 67/41 L 110/56 L 112/64 Pulse Oximetry 98 98 Oxygen Delivery Method Room Air Room Air 05/18/24 18:55 05/18/24 19:05 Temperature 98 F 98 F Pulse Rate 66 66 Respiratory Rate 16 16 Blood Pressure 118/66 118/66 Pulse Oximetry 96 96 Oxygen Delivery Method Room Air Room Air BMI result Body Mass Index 31.1 Const Other: The patient is a somewhat chronically ill 69-year-old who was awake and alert with a normal mental status. He looks chronically ill but not obviously acutely ill. HENMT Other: Face is symmetrical. Mucous membranes not obviously dry. Eyes General: appearance normal, both eyes and all related structures Neck Neck: Yes no JVD Resp Effort & Inspection: normal respiratory effort Auscultation: clear to auscultation bilaterally Cardio Rate: regular rate Rhythm: regular rhythm Heart sounds: S1 normal heart sound present and S2 normal heart sound present GI Other: The abdomen is soft and does not seem tender Skin Other: Skin is dry and unremarkable General skin exam: no rashes or lesions noted Neuro Other: The patient is awake and alert with a normal mental status. Cranial nerves are grossly intact. He moves his extremities symmetrically. Extrem Other: The patient has a left [id number] amputation. The patient has a partial amputation of his right foot. This is through the midfoot portion of the foot. Both sites of amputation seem well healed and well-perfused. The right leg does not have any significant edema. No calf swelling or tenderness. Medications Administered Discontinued Medications Generic Name Dose Route Start Last Admin Trade Name Janey PRN Reason Stop Dose Admin Sodium Chloride 1,000 mls @ 999 mls/hr 05/18/24 15:15 05/18/24 17:01 Ns IV 05/18/24 16:15 Infused .Q1H1M ANNABELLA Infusion Acetaminophen 1,000 mg in 100 mls @ 400 mls/hr 05/18/24 15:48 05/18/24 17:44 Ofirmev IV 05/18/24 16:02 Infused ONCE ONE Infusion Ondansetron HCl 4 mg 05/18/24 15:48 05/18/24 17:01 Ondansetron Hcl 4 Mg/2 Ml Vial IVPUSH 05/18/24 15:49 4 mg ONCE ONE Administration Pantoprazole Sodium 40 mg 05/18/24 15:58 05/18/24 17:01 Pantoprazole Sodium 40 Mg/10 Ml Vial IVPUSH 05/18/24 15:59 40 mg ONCE ONE Administration Medical Decision Making Medical Decision Making [facility] Narrative: The patient is a 69-year-old male who was a dialysis patient. He was asymptomatic over the weekend and this morning before going to dialysis. While at dialysis he developed dizziness. After returning home from dialysis he developed a worsening headache and felt quite unwell and weak. An ambulance was called. He was hypotensive. He was still hypotensive on arrival here. He was given IV fluids and his blood pressure seemed to improve as did his symptoms of dizziness and headache. Neurological exam was normal. My overall impression is that the patient probably had symptoms related to his dialysis this morning. Perhaps too much fluid was taken off. He was observed for several hours. His blood pressure remained stable and he remained asymptomatic. He will be discharged to continue his regular medications, to keep his dialysis appointment on Saturday, and to return to the emergency room if worse. Lab Data 05/18/24 15:21 05/18/24 15:21 Labs: Lab Results 03/10/25 03/10/25 Range/Units 15:21 15:27 WBC 9.2 (4.8-10.8) X10*3/uL RBC 2.74 L (4.60-5.80) X10*6/uL Hgb 8.7 L (14.0-18.0) g/dl Hct 25.0 L (42.0-52.0) % MCV 91.2 (80.0-98.0) fL MCH 31.8 (27.0-33.0) pg MCHC 34.8 (31.0-36.0) g/dl RDW 14.4 (11.0-16.0) % Plt Count 221 (160-400) X10*3/uL MPV 9.9 (9.4-12.4) fL Immature Gran % (Auto) 0.3 (0.0-0.4) % Neut % (Auto) 73.6 H (45-73) % Lymph % (Auto) 14.6 L (20-40) % [place] % (Auto) 9.7 (2-11) % Eos % (Auto) 1.4 (0-4) % Baso % (Auto) 0.4 (0-2) % Lymph # (Auto) 1.4 (1.2-4.9) X10*3/uL [place] # (Auto) 0.9 (0.1-1.2) X10*3/uL Eos # (Auto) 0.1 (0.0-0.4) X10*3/uL Baso # (Auto) 0.0 (0.0-0.2) X10*3/uL Abs Immat Gran (auto) 0.03 (0.00-0.03) X10*3/uL Absolute Neuts (auto) 6.8 (2.0-8.3) x10*3/uL Absolute Nucleated RBC 0.030 H (0.0-0.012) X10*3/uL Nucleated RBC % (auto) 0.3 H (0.0-0.2) /100WBC VBG pH 7.60 H* (7.32-7.43) VBG pCO2 30 mmHg VBG pO2 138 mmHg VBG HCO3 30 H (22-26) mmol/L VBG O2 Saturation 99.0 % VBG Base Excess 9.2 mmol/L Sodium 139 (135-145) mmol/L Potassium 4.7 D (3.3-5.1) mmol/L Chloride 100 (96-108) mmol/L Carbon Dioxide 27 (22-29) mmol/L Anion Gap 17 (12-20) BUN 34 H (9-16) mg/dL Creatinine 4.84 H* (0.5-1.4) mg/dL Estim Creat Clear Calc 14.4 Estimated GFR 12 Random Glucose 285 H (60-115) mg/dL Calcium 8.9 D (8.4-10.2) mg/dL Magnesium 1.6 (1.6-2.6) mg/dL Total Bilirubin 0.4 (0.0-1.0) mg/dL Direct Bilirubin 0.1 (0.0-0.5) mg/dL AST 38 H (5-37) U/L ALT 41 H (0-40) U/L Alkaline Phosphatase 150 H (39-117) U/L Troponin I High Sens 11.6 (<3.5-35.0) ng/L C-Reactive Protein 0.49 (< or = 0.50) mg/dL B-Natriuretic Peptide 226 H (<100) pg/mL Total Protein 7.4 (6.5-8.0) g/dL Albumin 3.6 (3.5-5.0) g/dL Lipase 48 (8-78) U/L Ethyl Alcohol < 10 mg/dL Influenza Type A (PCR) NEGATIVE (Negative) Influenza Type B (PCR) NEGATIVE (Negative) RSV RNA Qual (PCR) NEGATIVE (Negative) SARS-CoV-2 RNA (RT-PCR) NEGATIVE (Negative) Independent Interpretation I performed an independent interpretation of an: EKG Interpretation: EKG at 15 11 shows sinus rhythm with a first-degree AV block at 62 beats per minute. EKG is very similar to previous EKGs. Discharge Plan Discharge Clinical Impression: Headache, Acute hypotension, Chronic renal failure, Dialysis patient Patient Disposition: Home, Self-Care Additional Instructions: Your testing in the emergency room today seems reassuring. I think that your symptoms may has been related to the fluid taken off at dialysis. Please continue your current medications. Please keep your appointment on Saturday with dialysis and discuss this episode further. Return to the emergency room if significantly worse. Prescriptions: No Action atorvastatin 80 mg tablet 80 mg PO BEDTIME tamsulosin 0.4 mg capsule 0.4 mg PO BEDTIME docusate sodium 100 mg capsule 100 mg PO BEDTIME aspirin 81 mg tablet,chewable 1 tab PO DAILY hydralazine 50 mg tablet 100 mg PO TID albuterol sulfate [Ventolin HFA] 90 mcg/actuation HFA aerosol inhaler 2 puff INHALATION Q4H PRN (Reason: Wheezing) ezetimibe 10 mg tablet 10 mg PO DAILY (DME) FreeStyle Daniel 2 Sensor Kit MISCELLANEOUS Q2W (DME) FreeStyle Daniel 2 [place] Misc MISCELLANEOUS QAM trazodone 100 mg tablet 50 mg PO BEDTIME PRN (Reason: insomnia) insulin degludec [Tresiba FlexTouch U-100] 100 unit/mL (3 mL) insulin pen 25 unit subcut DAILY glipizide 10 mg Tablet 10 mg PO DAILY carvedilol 25 mg tablet 25 mg PO DAILY Protocol: Hold for SBP/HR < HOLD for SBP < : 90 HOLD for HR < : 60 cyclobenzaprine 10 mg tablet 5 mg DAILY insulin lispro [Humalog KwikPen Insulin] 100 unit/mL insulin pen 3 - 10 unit subcut TID omeprazole 40 mg capsule,delayed release(DR/EC) 40 mg PO DAILY Qty: 30 0RF sertraline 50 mg tablet 50 mg PO DAILY (DME) blood-glucose meter [OneTouch Ultra2 Meter] [facility] See Rx Instructions .ROUTE DIRECTED Qty: 1 Rx Instructions: As directed losartan 50 mg tablet 50 mg PO BID (DME) OneTouch Ultra Test Strip See Rx Instructions .ROUTE .MEDSUPPLY Qty: 10 Rx Instructions: As directed isosorbide mononitrate 120 mg tablet extended release 24 hr 120 mg PO DAILY nifedipine 90 mg tablet extended release 24hr 90 mg PO DAILY Referrals: David Welch MD [Physician] - Marline Richard MD [Physician] - Interventions: ED Discharge Assessment Last Done: 05/18/24 19:05 Print Language: Hebrew
[2024-05-18 15:24] VITALS: BP 67/41; BP 76/42; PULSE 65; PULSE 66; RESP 24; TEMP 37; O2SAT 97; O2SAT 98; BMI 31.1
[2024-05-18 15:26] LABS: MANUAL DIFF FLAG NO
[2024-05-18 15:28] LABS: Basophils Percent Auto 0.4 % (0-2); Eosinophils Absolute Auto 0.1 X10*3/uL (0.0-0.4); Eosinophils Percent Auto 1.4 % (0-4); Hemoglobin 8.7 g/dl (14.0-18.0); Imm Gran Abs Auto 0.03 X10*3/uL (0.00-0.03); Imm Gran Pct Auto 0.3 % (0.0-0.4); Lymphocytes Absolute Auto 1.4 X10*3/uL (1.2-4.9); Lymphocytes Percent Auto 14.6 % (20-40); Mean Corpuscular HGB Conc 34.8 g/dl (31.0-36.0); Mean Corpuscular Hemoglobin 31.8 pg (27.0-33.0); Mean Corpuscular Volume 91.2 fL (80.0-98.0); Mean Platelet Volume 9.9 fL (9.4-12.4); Monocytes Absolute Auto 0.9 X10*3/uL (0.1-1.2); Monocytes Percent Auto 9.7 % (2-11); NRBC Pct Auto 0.3 /100WBC (0.0-0.2); Neutrophils Absolute Auto 6.8 x10*3/uL (2.0-8.3); Neutrophils Percent Auto 73.6 % (45-73); Platelet Count 221 X10*3/uL (160-400); Red Blood Count 2.74 X10*6/uL (4.60-5.80); Red Cell Distribution Width 14.4 % (11.0-16.0); White Blood Count 9.2 X10*3/uL (4.8-10.8)
[2024-05-18] MEDS: 0.9 % Sodium Chloride 1,000 ML 999 ML IV (15:32)
[2024-05-18 15:54] LABS: Troponin-I High Sensitivity 11.6 ng/L (<3.5-35.0)
[2024-05-18 15:59] LABS: B Type Natriuretic Peptide 226 pg/mL (<100)
[2024-05-18 16:00] VITALS: BP 110/56; PULSE 62; RESP 21; TEMP 37; O2SAT 98
[2024-05-18 16:06] LABS: Influenza A PCR NEGATIVE (Negative); Influenza B PCR NEGATIVE (Negative); Resp Syncy Virus RNA Qual PCR NEGATIVE (Negative); SARS COV2 PCR INHOUSE NEGATIVE (Negative)
[2024-05-18 16:09] LABS: Alanine Aminotransferase 41 U/L (0-40); Albumin Level 3.6 g/dL (3.5-5.0); Anion Gap 17 (12-20); Aspartate Amino Transferase 38 U/L (5-37); Bilirubin Direct 0.1 mg/dL (0.0-0.5); Bilirubin Total 0.4 mg/dL (0.0-1.0); Blood Urea Nitrogen 34 mg/dL (9-16); C Reactive Protein 0.49 mg/dL (< or = 0.50); Calcium 8.9 mg/dL (8.4-10.2); Carbon Dioxide 27 mmol/L (22-29); Chloride 100 mmol/L (96-108); Creatinine Clr Calc Pharmacy 14.4; Estimated Glomerular Filt Rate 12; Ethanol < 10 mg/dL; Glucose Random 285 mg/dL (60-115); Lipase 48 U/L (8-78); Magnesium 1.6 mg/dL (1.6-2.6); Potassium 4.7 mmol/L (3.3-5.1); Sodium 139 mmol/L (135-145); Total Protein 7.4 g/dL (6.5-8.0)
[2024-05-18] MEDS: Acetaminophen 1,000 MG/100 ML PIGGYBACK 400 MG IV (17:00)
[2024-05-18] MEDS: Pantoprazole Sodium 40 MG/10 ML VIAL IVPUSH (17:01)
[2024-05-18] MEDS: ondansetron HCL 4 MG/2 ML VIAL IVPUSH (17:01)
[2024-05-18 17:10] LABS: VBG Base Excess 9.2 mmol/L; VBG HCO3 30 mmol/L (22-26); VBG pCO2 30 mmHg; VBG pO2 138 mmHg
[2024-05-18 17:12] LABS: Venous Blood Gas Refer to POC result
[2024-05-18 17:34] LABS: Alkaline Phosphatase 150 U/L (39-117)
[2024-05-18 17:43] VITALS: BP 112/64; PULSE 64; RESP 16; TEMP 36.6
--- OUTSIDE RECORDS SUMMARY | 2024-05-18 18:27 | XMS_ITS | Encounter Summary ---
Author Organization [employer] Address [address] [place] [address] Care Team Providers Care Windsmith Name Role Phone Marline Richard MD Primary Care Provider [phone] Encounter Details Date Type Department Care Team ([facility] st Contact Info) Description 05/08/2024 Orders Only GENERIC EXTERNAL DATA DEPARTMENT Provider, Generic External Data Social History Tobacco Use Types Packs/Day Years [...] Description 07/21/2024 1:00 PM EDT Office Visit [facility] OPT[facility] [address] [place], [place] [phone] Jeff, Leslie, OD [address] [place] [address] documented as of this encounter Goals Goal Patient Goal Type Associated Problems Recent Progress Patient-Stated? Author Blood Pressure < 140/90 Blood Pressure 109/56(2024 1:18 PM EST) No Deandre Cordon Hemoglobin A1c < 7 Result Component 7.8( 3:44 PM EST) No Deandre Cordon documented as of this encounter Procedures Procedure Name Priority Date/Time Associated Diagnosis Comments CBC WITH AUTO DIFFERENTIAL Routine 05/08/2024 10:39 AM EST BASIC METABOLIC PANEL Routine 05/08/2024 10:39 AM EST documented in this encounter Results * (ABNORMAL) Basic Metabolic Panel (05/08/2024 10:39 AM EST) Sodium 140 135 - 145 mmol/L [facility] Potassium 3.9 3.3 - 5.1 mmol/L [facility] Chloride 98 96 - 108 mmol/L [facility] Carbon Dioxide 32(H) 22 - 29 mmol/L [facility] Anion Gap 14 12 - 20 [facility] Urea Nitrogen (BUN) 39(H) 9 - 16 mg/dL [facility] Creatinine, Serum 4.87(HH) 0.5 - 1.4 mg/dL [facility] Comment:Critical value for C RES Results called to and read backby: DEREK Person calling:RAYMUNDO Date: 05/08/24Time:1102 Creatinine Clr Calc Pharmacy 15.1 [facility] Comment:eGFR (calculated fro m the MDRD study equation) and eCrCl(calculated from the Cockcroft-Gault equation) are based ondifferent parameters and may not yield comparable results.If eCrCl result is absurd, please check patient'sheight/weight. Estimated Glomerular Filt Rate 12 [facility] Comment:Chronic Kidney Disea se: Estimated GFR < 60 mL/min/1.41c3Vbrvji Kidney Disease: Estimated GFR < 15 mL/min/1.73m2 Glucose 124(H) 60 - 115 mg/dL [facility] Calcium 9.5 8.4 - 10.2 mg/dL [facility] 05/08/2024 10:3 9 AM EST 05/08/2024 10:45 AM EST us Generic External Data Provider LAB BLOOD ORDERAB LES Final Result [facility] [address] [place] [address] [phone] * (ABNORMAL) CBC auto differential (05/08/2024 10:39 AM EST) White Blood Count 6.9 4.8 - 10.8 X10*3/uL [facility] Red Blood Count 3.07(L) 4.60 - 5.80 X10*6/uL [facility] Hemoglobin 9.8(L) 14.0 - 18.0 g/dl [facility] Hematocrit 28.1(L) 42.0 - 52.0 % [facility] Mean Corpuscular Volume 91.5 80.0 - 98.0 fL [facility] Mean Corpuscular Hemoglobin 31.9 27.0 - 33.0 pg [facility] Mean Corpuscular HGB Conc 34.9 31.0 - 36.0 g/dl [facility] Red Cell Distribution Width 13.7 11.0 - 16.0 % [facility] Platelet Count 186 160 - 400 X10*3/uL [facility] Mean Platelet Volume 9.8 9.4 - 12.4 fL [facility] Neutrophils Percent Auto 63.6 45 - 73 % [facility] Imm Gran Pct Auto 0.6(H) 0.0 - 0.4 % [facility] Lymphocytes Percent Auto 23.9 20 - 40 % [facility] Monocytes Percent Auto 9.3 2 - 11 % [facility] Eosinophils Percent Auto 2.0 0 - 4 % [facility] Basophils Percent Auto 0.6 0 - 2 % [facility] NRBC Pct Auto 0.0 0.0 - 0.2 /100WBC [facility] Neutrophils Absolute Auto 4.4 2.0 - 8.3 x10*3/uL [facility] Imm Gran Abs Auto 0.04(H) 0.00 - 0.03 X10*3/uL [facility] Lymphocytes Absolute Auto 1.6 1.2 - 4.9 X10*3/uL [facility] Monocytes Absolute Auto 0.6 0.1 - 1.2 X10*3/uL [facility] Eosinophils Absolute Auto 0.1 0.0 - 0.4 X10*3/uL [facility] Basophils Absolute Auto 0.0 0.0 - 0.2 X10*3/uL [facility] NRBC Abs Auto 0.000 0.0 - 0.012 X10*3/uL [facility] 05/08/2024 10:3 9 AM EST 05/08/2024 10:45 AM EST us Generic External Data Provider LAB BLOOD ORDERAB LES Final Result [facility] [address] [place] [phone] documented in this encounter Visit Diagnoses Not on filedocumented in this encounter Additional Health Concerns Assessment Noted Time PHQ-9 Depression Total Score: 0 08/02/19 24 1:47 PM EDT documented as of this encounter Care Teams Windsmith Relationship Specialty Start Date End Date Marline Richard MD [address] [place] [address] PCP - General Family Medicine 04/21/20 documented as of this encounter
--- OUTSIDE RECORDS SUMMARY | 2024-05-18 18:27 | XMS_ITS | Encounter Summary ---
Author Organization [employer] Address [address] [place] [address] Care Team Providers Care Finisher [employer] Name Role Phone Marline Richard MD Primary Care Provider [phone] Reason for Visit * Reason Onset Date Comments Pre-visit Planning 10/30/2023 Encounter Details Date Type Department Care Team ([facility] st Contact Info) Description 10/30/2023 Telephone [facility] MEDICINE [address] [place] [address] Marline Richard MD [address] [place] [address] Pre-visit Planning Social History Tobacco Use Types [...] the past 12 months, has t he [employer] gas, oil or water [employer] threatened to shut off services in your [...] Description 07/21/2024 1:00 PM EDT Office Visit [facility] OPTOMETRY [address] [place] [address] Leslie Aguilar, OD [address] [place] [address] documented as of this encounter Goals Goal [...] documented as of this encounter Care Teams Finisher [employer] Relationship Specialty Start Date End Date Marline Richard MD [address] [place] [address] PCP - General Family Medicine 04/21/20 documented as of this encounter
--- OUTSIDE RECORDS SUMMARY | 2024-05-18 18:28 | XMS_ITS | Encounter Summary ---
Author Organization [employer] Address [address] [place] [address] Care Team Providers Care Airplane Tube Builder Name Role Phone Marline Richard MD Primary Care Provider [phone] Reason for Visit * Reason Comments Med Refill Encounter Details Date Type Department Care Team ([facility] Contact Info) Description 04/25/2023 Refill [facility] MEDICINE [address] [place], [place] [phone] Marline Richard MD [address] [place], [place] [phone] Phantom limb (CMS/HCC) Social History Tobacco Use [...] Description 07/21/2024 1:00 PM EDT Office Visit [facility] OPTOMETRY [address] [place], [place] [phone] JeffLeslie, OD [address] [place] [address] documented as of this encounter Goals Goal [...] documented as of this encounter Care Teams Airplane Tube Builder Relationship Specialty Start Date End Date Marline Richard MD [address] [place], [place] [phone] PCP - General Family Medicine 04/21/20 documented as of this encounter
--- OUTSIDE RECORDS SUMMARY | 2024-05-18 18:28 | XMS_ITS | Encounter Summary ---
Author Organization [employer] Address [address] [place] [address] Care Team Providers Care Gang Worker Name Role Phone Marline Richard MD Primary Care Provider [phone] Reason for Visit * Reason Comments Med Refill Encounter Details Date Type Department Care Team ([facility] Contact Info) Description 08/16/[address] [facility] MEDICINE [address] [place], [place] [phone] Marline Richard MD [address] [place], [place] [phone] Type 2 diabetes mellitus with chronic kidney [...] Description 07/21/2024 1:00 PM EDT Office Visit [facility] OPTOMETRY [address] [place] [address] JeffLeslie, OD [address] [place] [address] documented as of this encounter Goals Goal [...] documented as of this encounter Care Teams Gang Worker Relationship Specialty Start Date End Date Marline Richard MD [address] [place] [address] PCP - General Family Medicine 04/21/20 documented as of this encounter
--- OUTSIDE RECORDS SUMMARY | 2024-05-18 18:28 | XMS_ITS | Encounter Summary ---
Author Organization [employer] Address [address] [place] [address] Care Team Providers Care Manager Medicare Name Role Phone Marline Richard MD Primary Care Provider [phone] Reason for Visit * Reason Onset Date Comments Hospital Follow-up 10/05/2022 Encounter Details Date Type Department Care Team ([facility] st Contact Info) Description 10/05/2022 Telephone [facility] MEDICINE [address] [place] [address] Marline Richard MD [address] [place] [address] Hospital Follow-up Social History Tobacco Use Types [...] a HDF appt. Pt was admitted at [facility] on 09/28/22 and discharged on 10/02/22. Pt was diagnosed with hypertensive emergency documented in this encounter Plan of Treatment Upcoming Encounters Date Type Department Care Team (Late st Contact Info) Description 07/21/2024 1:00 PM EDT Office Visit [facility] OPTOMETRY [address] [place], [place] [phone] Leslie Aguilar, OD [address] [place] [address] documented as of this encounter Visit Diagnoses Not on filedocumented in this encounter Additional Health Concerns Assessment Noted Time PHQ-9 Depression Total Score: 5 04/20/19 23 1:08 PM EST documented as of this encounter Care Teams Manager Medicare Relationship Specialty Start Date End Date Marline Richard MD [address] [place] [address] PCP - General Family Medicine 04/21/20 documented as of this encounter
--- OUTSIDE RECORDS SUMMARY | 2024-05-18 18:28 | XMS_ITS | Encounter Summary ---
Author Organization [employer] Address [address] [place] [address] Care Team Providers Care Civil Engineer Land Development Name Role Phone Marline Richard MD Primary Care Provider Reason for Visit * Reason Comments Med Refill Encounter Details Date Type Department Care Team (Late Contact Info) Description 11/20/2022 Refill [facility] MEDICINE [address] [place] [address] Keesha Black MD [address] [place] [address] Social History Tobacco Use Types Packs/Day Years [...] Description 07/21/2024 1:00 PM EDT Office Visit [facility] OPTOMETRY [address] [place] [address] Leslie Aguilar, OD [address] [place] [address] documented as of this encounter Visit Diagnoses Not on filedocumented in this encounter Additional Health Concerns Assessment Noted Time PHQ-9 Depression Total Score: 5 04/20/19 23 1:08 PM EST documented as of this encounter Care Teams Civil Engineer Land Development Relationship Specialty Start Date End Date Marline Richard MD [address] [place] [address] PCP - General Family Medicine 04/21/20 documented as of this encounter
--- OUTSIDE RECORDS SUMMARY | 2024-05-18 18:28 | XMS_ITS | Encounter Summary ---
Author Organization [employer] Address [address] [facility] 7t [place] [address] Care Team Providers Care Appliance Assembler Name Role Phone Marline Richard MD Primary Care Provider [phone] Encounter Details Date Type Department Care Team (Late Contact Info) Description 12/12/2022 Orders Only [facility] MEDICINE [address] [place] [address] Marline Richard MD [address] [place] [address] Social History Tobacco Use Types Packs/Day Years [...] Description 07/21/2024 1:00 PM EDT Office Visit [facility] OPTOMETRY [address] [place] [address] JeffLeslie henry, OD [address] [place] [address] documented as of this encounter Goals Goal [...] documented as of this encounter Care Teams Appliance Assembler Relationship Specialty Start Date End Date Marline Richard MD [address] [place] [address] PCP - General Family Medicine 04/21/20 documented as of this encounter
--- OUTSIDE RECORDS SUMMARY | 2024-05-18 18:28 | XMS_ITS | Encounter Summary ---
Author Organization [facility] Address [address] [place] [phone] Phone Care Team Providers Care Environmental Services Tech Name Role Phone Lizy Soria OMER Primary Care Provider [phone] Encounter Details Date Type Department Care Team ([facility] st Contact Info) Description 04/20/2024 Treatment [facility] [address] [phone] Allen Koroma MD [address] [address] Social History Tobacco Use Types [...] encounter Miscellaneous Notes * Dialysis Note - Aleln Koroma MD - 04/20/2024 12:00 AM EST Patient: Kingsley Johnson : 1955 Note Type: Dialysis Rounds-Basic Service Date: 04/20/2024 This patient was personally seen for a basic visit as part of routine monthly dialysis care for end stage renal disease. Attending Mechanical Striper: ALLEN KOROMA MD Dialysis Location: [facility] DIALYSIS Schedule: Shift: 1 HOME MEDICATIONS Current [facility] Outpatient Medications amLODIPine (NORVASC) 10 MG tablet [...] 2 (two) times a day Start Date: [facility] Inject 100 Units under the skin Start Date: Current [facility] Allergies Allergen: MIRTAZAPINE Reaction: Other (see comments) [...] on filedocumented in this encounter Care Teams Environmental Services Tech Relationship Specialty Start Date End Date Lizy Soria NP [address] [place] [address] PCP - General Nurse Practitioner 12/17/23 documented as of this encounter
--- OUTSIDE RECORDS SUMMARY | 2024-05-18 18:28 | XMS_ITS | Encounter Summary ---
Author Organization [employer] Address [address] [facility] [address] 7[address] [place] [address] Care Team Providers Care Field Contact Person Name Role Phone Marline Richard MD Primary Care Provider [phone] Encounter Details Date Type Department Care Team ([facility] st Contact Info) Description 06/14/2023 Orders Only [facility] MEDICINE [address] [place] [address] Marline Richard MD [address] [place] [address] Social History Tobacco Use Types Packs/Day Years [...] Visit [facility] OPTOMETRY [address] [place], [place] [phone] JeffLeslie henry, OD [address] [place] [address] documented as of this encounter Goals Goal [...] documented as of this encounter Care Teams Field Contact Person Relationship Specialty Start Date End Date Marline Richard MD [address] [place], [place] [phone] PCP - General Family Medicine 04/21/20 documented as of this encounter
--- OUTSIDE RECORDS SUMMARY | 2024-05-18 18:28 | XMS_ITS | Encounter Summary ---
Author Organization [employer] Address [address] [facility] [address] [place] [address] Care Team Providers Care Title Insurance Agent Name Role Phone Marline Richard MD Primary Care Provider [phone] Reason for Visit * Reason Comments Med Refill Encounter Details Date Type Department Care Team ([facility] st Contact Info) Description 06/12/2023 Refill [facility] MEDICINE [address] [place], [place] [phone] Marline Richard MD [address] [place], [place] [phone] Vitamin D deficiency, unspecified Social History Tobacco [...] 1:00 PM EDT Office Visit [facility] OPTOMETRY [address] [place] [address] Leslie Aguilar, OD [address] [place] [address] documented as of this encounter Goals Goal [...] documented as of this encounter Care Teams Title Insurance Agent Relationship Specialty Start Date End Date Marline Richard MD [address] [place] [address] PCP - General Family Medicine 04/21/20 documented as of this encounter
--- OUTSIDE RECORDS SUMMARY | 2024-05-18 18:28 | XMS_ITS | Encounter Summary ---
Author Organization [employer] Address [address] [facility] [address] [address] [place] [address] Care Team Providers Care Chemical Economist Name Role Phone Marline Richard MD Primary Care Provider [phone] Reason for Visit * Reason Comments Med Refill Encounter Details Date Type Department Care Team ([facility] Contact Info) Description 09/18/2023 Refill [facility] MEDICINE [address] [place], [place] [phone] Marline Richard MD [address] [place], [place] [phone] Type 2 diabetes mellitus with chronic kidney [...] Description 07/21/2024 1:00 PM EDT Office Visit [facility] OPTOMETRY [address] [place] [address] JeffLeslie, OD [address] [place] [address] documented as of this encounter Goals Goal [...] documented as of this encounter Care Teams Chemical Economist Relationship Specialty Start Date End Date Marline Richard MD [address] [place] [address] PCP - General Family Medicine 04/21/20 documented as of this encounter
--- OUTSIDE RECORDS SUMMARY | 2024-05-18 18:28 | XMS_ITS | Encounter Summary ---
Author Organization [employer] Address [address] [place] [address] Care Team Providers Care Hris Specialist Name Role Phone Marline Richard MD Primary Care Provider [phone] Reason for Visit * Reason Comments Med Refill Encounter Details Date Type Department Care Team ([facility] Contact Info) Description 05/07/2024 Refill [facility] MED & PEDS [address] [place], [place] [phone] Marline Richard MD [address] [place] [address] Social History Tobacco Use Types Packs/Day Years [...] 07/21/2024 1:00 PM EDT Office Visit [facility] OPTOMETRY [address] [place] [address] Jeff, Leslie, OD [address] [place] [address] documented as of this encounter Goals Goal [...] documented as of this encounter Care Teams Hris Specialist Relationship Specialty Start Date End Date Marline Richard MD [address] [place] [address] PCP - General Family Medicine 04/21/20 documented as of this encounter
--- OUTSIDE RECORDS SUMMARY | 2024-05-18 18:28 | XMS_ITS | Encounter Summary ---
Author Organization [facility] Address [address] [place] [phone] Phone Care Team Providers Care Global Climate Change Analyst Name Role Phone Lizy Soria COMMERCIAL JOURNEYMAN ELECTRICIAN Primary Care Provider [phone] Encounter Details Date Type Department Care Team ([facility] st Contact Info) Description 04/29/2024 Treatment [facility] [address] [phone] Allen Koroma MD [address] [address] Social History Tobacco Use Types [...] care for end stage renal disease. Attending Structural Steel Ironworker: ALLEN KOROMA MD Dialysis Location: [facility] DIALYSIS Schedule: Shift: 1 HOME MEDICATIONS Current [facility] Outpatient Medications amLODIPine (NORVASC) 10 MG [...] 2 (two) times a day Start [facility]: [facility]ject 100 Units under the skin Start Date: [facility] Allergies Allergen: MIRTAZAPINE Reaction: Other (see [...] on filedocumented in this encounter Care Teams Global Climate Change Analyst Relationship Specialty Start Date End Date Lizy Soria NP [address] [place] [address] PCP - General Nurse Practitioner 12/17/23 documented as of this encounter
--- OUTSIDE RECORDS SUMMARY | 2024-05-18 18:28 | XMS_ITS | Clinical Summary ---
Author Organization [facility] Facility Address [address] [address] Care Team Providers Care Drawer Upfitter Name Role Phone Lizy Soria NP Primary Care Provider [phone] Allergies Active Allergy Reactions Criticality Noted [...] Encounters Date Type Department Care Team Description 05/18/2024 Treatment [facility] [address] [phone] Bernardo Christie MD End stage renal disease; Dependence on renal dialysis 05/13/2024 Treatment [facility] [address] [phone] Bernardo Christie MD End stage renal disease; Dependence on renal dialysis 05/11/2024 Treatment [facility] [address] [address] Bernardo Christie MD End stage renal disease; Dependence on renal dialysis 04/29/2024 Treatment [facility] [address] [address] Bernardo Christie MD 04/27/2024 Treatment [facility] [address] [address] Bernardo Christie MD 04/20/2024 Treatment [facility] [address] [address] Bernardo Christie MD 04/15/2024 Orders Only [facility] [address] [address] Bernardo Christie MD 04/13/2024 Treatment [facility] [address] [address] Bernardo Christie MD 04/06/2024 Treatment [facility] [address] [address] Bernardo Christie MD 03/30/2024 Treatment [facility] [address] [address] Bernardo Araiza MD 03/23/2024 Treatment [facility] [address] [address] Bernardo Christie MD 03/16/2024 Treatment [facility] [address] [address] Bernardo Christie MD 03/03/2024 Treatment [facility] [address] [address] Bernardo Christie MD 02/24/2024 Treatment [facility] [address] [address] Bernardo Christie MD from Last 3 Months [...] Foot Exam 04/11/2020 Influenza Vaccine (#1) 2023 2, 01/09/2021, 12/25/2019, Additional history exists Diabetes: Hemoglobin A1C 06/16/2024 025, 02/10/2024, 08/19/2023, Additional history exists Pneumococcal Vaccine: 65+ Years Completed 12/19/2021, 08/04/2012, 02/15/2005 Procedures Procedure Name Priority Date/Time Associated Diagnosis Comments TRANSFERRIN SATURATION Routine 3:00 AM EST PROTEIN, TOTAL, SERUM Routine 05/13/2024 3:00 AM EST ELECTROLYTE PANEL Routine 05/13/2024 3:0 0 AM EST MAGNESIUM Routine 05/13/2024 3:00 AM EST LIH (HC) Routine 05/13/2024 3:00 AM EST LACTATE DEHYDROGENASE Routine 05/13/2024 3:00 AM EST GLUCOSE, RANDOM Routine 05/13/2024 3:00 AM EST BILIRUBIN, TOTAL Routine 05/13/2024 3:00 AM EST CREATININE, SERUM Routine 05/13/2024 3:0 0 AM EST AST Routine 05/13/2024 3:00 AM EST CALCIUM PHOSPHORUS PRODUCT, ADJUSTED (HC) Routine 05/13/2024 3:00 AM EST ALT Routine 05/13/2024 3:00 AM EST ALKALINE PHOSPHATASE Routine 05/13/2024 3:00 AM EST FERRITIN Routine 05/13/2024 3:00 AM EST KT/V NATURAL LOG, URR (HC) Routine 05/13/2024 3:00 AM EST CBC AND DIFFERENTIAL Routine 05/13/2024 3:00 AM EST HEMOGLOBIN Routine 05/06/2024 3:00 AM EST PHOSPHATE [...] ANTIBODY QUANT Routine 02/19/2024 3:00 AM EST from Last 3 Months Results * LIH (05/13/2024 3:00 AM EST) Only the most recent of5 resultswithin the time period is included. Lipemia Normal Normal [facility] Icterus Normal Normal [facility] Hemolysis Normal Normal [facility] 05/13/2024 3:00 AM EST 05/14/2024 1:01 PM EST us Bernardo Christie MD LAB [id number] ICITED RESULTS Final Result [facility] [address] [place] [address] * (ABNORMAL) Kt/V Natural Log, URR (05/13/2024 3:00 AM EST) Only the most recent of4 resultswithin the time period is included. Treatment Time 197 min [facility] Pre-Weight, lb 86.9 kg [facility] Post-Weight, lb 82.8 kg [facility] Ultrafiltration Rate 15(H) <=13 mL/kg/hr [facility] Comment: Recommend achieving Ultrafiltration Rate (UFR) <=10 mL/kg/hr References: Nora REYES et al. Kidney Int. 2010; 79(2):250-257 BUN 68(H) 7 - 25 mg/dL [facility] BUN Post Dialysis 27(H) 7 - 25 mg/dL [facility] UREA REDUCTION RATIO (%) 60(L) >=65 % [facility] Kt/V Natural Log 1.12(L) >=1.2 [facility] 05/13/2024 3:00 AM EST 05/14/2024 1:01 PM EST us Bernardo Christie MD LAB [id number] ICITED RESULTS Final Result Performing Organization Address [facility] de Phone Number [facility] [address] [place] [address] * (ABNORMAL) Calcium Phosphorus Product, Adjusted (05/13/2024 3:00 AM EST) Only the most recent of3 resultswithin the time period is included. Albumin 3.7 3.6 - 5.4 g/dL [facility] Calcium 8.4(L) 8.6 - 10.3 mg/dL [facility] Phosphorus, Serum 4.6 2.5 - 5.0 mg/dL [facility] Ca*PO4 38.6 <55.0 mg2/dL2 [facility] Calcium, Adjusted Total 8.6 8.6 - 10.3 mg/dL [facility] CA*PO4 CORRCTD 39.6 <55.0 mg2/dL2 [facility] 05/13/2024 3:00 AM EST 05/14/2024 1:01 PM EST us Bernardo Christie MD LAB [id number] ICITED RESULTS Final Result Performing Organization Address [facility] de Phone Number [facility] [address] [place] [address] * (ABNORMAL) TSAT (05/13/2024 3:00 AM EST) Only the most recent of3 resultswithin the time period is included. Iron 182(H) 65 - 175 ug/dL [facility] Transferrin 142(L) 215 - 365 mg/dL [facility] TIBC 199(L) 211 - 406 ug/dL [facility] Iron Saturation (TSat) 92(H) 22 - 52 % [facility] 05/13/2024 3:00 AM EST 05/14/2024 1:01 PM EST us Bernardo Christie MD LAB BLOOD ORDERABLES Final Resul t Performing Organization Address [facility] Co de Phone Number [facility] [address] [place] [address] * (ABNORMAL) CBC and Differential (05/13/2024 3:00 AM EST) Only the most recent of3 resultswithin the time period is included. DIFFERENTIAL MANUAL, 2 Not Indicated [facility] White Blood Cells 8.2 4.2 - 9.1 K/uL [facility] RBC 2.72(L) 4.63 - 6.08 M/uL [facility] Hgb 8.5(L) 13.7 - 17.5 g/dL [facility] Hemoglobin x 3 25.5(L) 41.1 - 52.5 g/dL [facility] Hematocrit 25.8(L) 40.1 - 51.0 % [facility] MCV 94.9(H) 79.0 - 92.2 fL [facility] MCH 31.3 25.7 - 32.2 pg [facility] MCHC 32.9 32.3 - 36.5 g/dL [facility] Platelets 175 163 - 337 K/uL [facility] RDW 13.6 11.6 - 14.4 % [facility] Neutrophils Relative 61.9 34.0 - 67.9 % [facility] Lymphocytes Relative 24.4 21.8 - 53.1 % [facility] Monocytes 9.6 5.3 - 12.2 % [facility] Eosinophils Relative 2.5 0.8 - 7.0 % [facility] Basophils Relative 0.6 0.2 - 1.2 % [facility] Immature Granulocytes 1.0 0.0 - 1.0 % [facility] 05/13/2024 3:00 AM EST 05/14/2024 1:05 PM EST Bernardo Christie MD LAB BLOOD ORDERABLES Final Resul t Performing Organization Address [facility] Co de Phone Number [facility] [address] [place] [address] * ALT (05/13/2024 3:00 AM EST) Only the most recent of3 resultswithin the time period is included. Pathologist [facility] ALT (SGPT) 40 10 - 49 U/L [facility] 05/13/2024 3:00 AM EST 05/14/2024 1:01 PM EST Bernardo Christie MD LAB BLOOD ORDERABLES Final Resul t Performing Organization Address [facility] Co de Phone Number [facility] [address] [place] [address] * (ABNORMAL) AST (05/13/2024 3:00 AM EST) Only the most recent of3 resultswithin the time period is included. AST (SGOT) 39(H) <34 U/L [facility] 05/13/2024 3:00 AM EST 05/14/2024 1:01 PM EST us Bernardo Christie MD LAB BLOOD ORDERABLES Final Resul t Performing Organization Address [facility] de Phone Number [facility] [address] [place] [address] * Protein, total (05/13/2024 3:00 AM EST) Only the most recent of3 resultswithin the time period is included. Pathologist [facility] Total Protein 6.7 6.4 - 8.9 g/dL [facility] 05/13/2024 3:00 AM EST 05/14/2024 1:01 PM EST us Bernardo Christie MD LAB BLOOD ORDERABLES Final Resul t Performing Organization Address [facility] de Phone Number [facility] [address] [place] [address] * (ABNORMAL) Alkaline phosphatase (05/13/2024 3:00 AM EST) Only the most recent of3 resultswithin the time period is included. Alkaline Phosphatase 191(H) 46 - 116 U/L [facility] 05/13/2024 3:00 AM EST 05/14/2024 1:01 PM EST us Bernardo Christie MD LAB BLOOD ORDERABLES Final Resul t Performing Organization Address [facility] de Phone Number [facility] [address] [place] [address] * (ABNORMAL) Magnesium (05/13/2024 3:00 AM EST) Only the most recent of3 resultswithin the time period is included. Magnesium 1.5(L) 1.9 - 2.7 mg/dL [facility] 05/13/2024 3:00 AM EST 05/14/2024 1:01 PM EST us Bernardo Christie MD LAB BLOOD ORDERABLES Final Resul t Performing Organization Address [facility] de Phone Number [facility] [address] [place] [address] * (ABNORMAL) Lactate dehydrogenase (05/13/2024 3:00 AM EST) Only the most recent of3 resultswithin the time period is included. LDH 330(H) 120 - 246 U/L [facility] 05/13/2024 3:00 AM EST 05/14/2024 1:01 PM EST us Bernardo Christie MD LAB BLOOD ORDERABLES Final Resul t Performing Organization Address [facility] Phone Number [facility] [address] [place] [address] * (ABNORMAL) Glucose, random (05/13/2024 3:00 AM EST) Only the most recent of3 resultswithin the time period is included. Glucose 179(H) 74 - 109 mg/dL [facility] 05/13/2024 3:00 AM EST 05/14/2024 1:01 PM EST us Bernardo Christie MD LAB BLOOD ORDERABLES Final Resul t Performing Organization Address [facility] de Phone Number [facility] [address] [place] [address] * (ABNORMAL) Ferritin (05/13/2024 3:00 AM EST) Only the most recent of3 resultswithin the time period is included. Ferritin 1,460(H) 22 - 322 ng/mL [facility] 05/13/2024 3:00 AM EST 05/14/2024 1:01 PM EST us Bernardo Christie MD LAB BLOOD ORDERABLES Final Resul t Performing Organization Address [facility] Co de Phone Number [facility] [address] [place] [address] * (ABNORMAL) Creatinine, serum (05/13/2024 3:00 AM EST) Only the most recent of3 resultswithin the time period is included. Creatinine 7.18(H) 0.70 - 1.30 mg/dL [facility] 05/13/2024 3:00 AM EST 05/14/2024 1:01 PM EST us Bernardo Christie MD LAB BLOOD ORDERABLES Final Resul t Performing Organization Address [facility] de Phone Number [facility] [address] [place] [address] * (ABNORMAL) Bilirubin, total (05/13/2024 3:00 AM EST) Only the most recent of3 resultswithin the time period is included. Total Bilirubin 0.2(L) 0.3 - 1.2 mg/dL [facility] 05/13/2024 3:00 AM EST 05/14/2024 1:01 PM EST us Bernardo Christie MD LAB BLOOD ORDERABLES Final Resul t Performing Organization Address [facility] Co de Phone Number [facility] [address] [place] [address] * (ABNORMAL) Electrolyte panel (05/13/2024 3:00 AM EST) Only the most recent of3 resultswithin the time period is included. Sodium 140 136 - 145 mEq/L [facility] Potassium 5.2(H) 3.4 - 5.0 mEq/L [facility] Chloride 106 98 - 107 mEq/L [facility] Bicarbonate (CO2) 23 21 - 31 mEq/L [facility] Anion Gap 11 3 - 14 mEq/L [facility] 05/13/2024 3:00 AM EST 05/14/2024 1:01 PM EST us Bernardo Christie MD LAB BLOOD ORDERABLES Final Resul t Performing Organization Address [facility] de Phone Number [facility] [address] [place] [address] * (ABNORMAL) Hemoglobin (05/06/2024 3:00 AM EST) Only the most recent of5 resultswithin the time period is included. Hgb 8.9(L) 13.7 - 17.5 g/dL [facility] Hemoglobin x 3 26.7(L) 41.1 - 52.5 g/dL [facility] 05/06/2024 3:00 AM EST 05/07/2024 1:03 PM EST us Bernardo Christie MD LAB BLOOD ORDERABLES Final Resul t Performing Organization Address [facility] de Phone Number [facility] [address] [place] [address] * (ABNORMAL) Phosphorus (05/01/2024 3:00 AM EST) Phosphorus, Serum 5.8(H) 2.5 - 5.0 mg/dL [facility] 05/01/2024 3:00 AM EST 05/02/2024 1:34 PM EST us Bernardo Christie MD LAB BLOOD ORDERABLES Final Resul t Performing Organization Address [facility] de Phone Number [facility] [address] [place] [address] * (ABNORMAL) Hemoglobin and hematocrit (04/29/2024 3:00 [...] ORDERABLES Final Resul t Performing Organization Address [facility]/ZIP Co de Phone Number [facility] [address] [place] [address] * Confirmation Test HCV (03/18/2024 3:00 AM EST) Hep C Ab Confirmation Not needed [facility] 03/18/2024 3:00 AM EST 03/19/2024 6:04 PM EST us Bernardo Christie MD LAB BLOOD ORDERABLES Final Resul t Performing Organization Address [facility] Co de Phone Number [facility] [address] [place] [address] * HEPATITIS C ABS W/REFLEX RNA DETECTR (03/18/2024 3:00 AM EST) Hep C Virus Ab Non-Reacti ve Non-Reacti ve [facility] 03/18/2024 3:00 AM EST 03/19/2024 5:56 PM EST us Bernardo Christie MD LAB [id number] ICITED RESULTS Final Result Performing Organization Address [facility] de Phone Number [facility] [address] [place] [address] * Aluminum level (03/18/2024 3:00 AM EST) Aluminum 3 1 - 20 ug/L [facility] 03/18/2024 3:00 AM EST 03/19/2024 5:39 PM EST us Bernardo Christie MD LAB BLOOD ORDERABLES Final Resul t Performing Organization Address [facility] Co de Phone Number [facility] [address] [place] [address] * Hepatitis B Surface Antibody (03/18/2024 3:00 AM EST) Only the most recent of2 resultswithin the time period is included. Hep B Surface Antibody 362 mIU/mL [facility] Comment: Interpretation: <10: No Immunity >=10: Probable Immunity 03/18/2024 3:00 AM EST 03/19/2024 5:56 PM EST us Bernardo Christie MD LAB BLOOD ORDERABLES Final Resul t Performing Organization Address [facility] de Phone Number [facility] [address] [place] [address] * Uric Acid (03/18/2024 3:00 AM EST) Uric Acid 6.0 4.4 - 7.6 mg/dL [facility] 03/18/2024 3:00 AM EST 03/19/2024 5:56 PM EST us Bernardo Christie MD LAB BLOOD ORDERABLES Final Resul t Performing Organization Address [facility] de Phone Number [facility] [address] [place] [address] * PTH, Intact (03/18/2024 3:00 AM EST) PTH, Intact 346 160 - 721 pg/mL [facility] Comment: Suggested (KDIGO) ESRD maintenance range is two to nine times the upper normal limit (80.1 pg/mL) for the laboratory. 03/18/2024 3:00 AM EST 03/19/2024 5:56 PM EST us Bernardo Christie MD LAB BLOOD ORDERABLES Final Resul t Performing Organization Address [facility] de Phone Number [facility] [address] [place] [address] * (ABNORMAL) Hemoglobin A1c (03/18/2024 3:00 AM [...] Final Resul t [facility] [address] [place] [address] * (ABNORMAL) Lipid panel (03/18/2024 3:00 AM [...] ORDERABLES Final Resul t Performing Organization Address [facility] Co de Phone Number [facility] [address] [place] [address] * Hepatitis B Surface Ag w/Reflex Confirmation (02/19/2024 3:00 AM EST) Hep B Surface Antigen Negative Negative [facility] 02/19/2024 3:00 AM EST 02/20/2024 2:08 PM EST us Bernardo Christie MD LAB BLOOD ORDERABLES Final Resul t Performing Organization Address [facility] de Phone Number [facility] [address] [place] [address] from Last 3 Months Insurance [address] [place] [id number] [facility] ([id number]) JERMAINE JARAMILLO [id number] [facility] ([id number]) Care Teams Drawer Upfitter Relationship Specialty Start Date End Date Lizy Soria NP [address] [place] [address] [phone] PCP - General Nurse Practitioner 12/17/23
--- OUTSIDE RECORDS SUMMARY | 2024-05-18 18:28 | XMS_ITS | Encounter Summary ---
Author Organization [employer] Address [address] [place] [address] Care Team Providers Care Svp Chief Marketing Officer Name Role Phone Marline Richard MD Primary Care Provider [phone] Reason for Visit * Reason Comments Med Refill Encounter Details Date Type Department Care Team ([facility] st Contact Info) Description 02/14/2023 Refill [facility] MED [facility] PEDS [address] [place], [place] [phone] Marline Richard MD [address] [place] [address] Social History Tobacco Use Types Packs/Day Years [...] 07/21/2024 1:00 PM EDT Office Visit [facility] OPTOMETRY [address] [place] [address] Jeff, Leslie, OD [address] [place] [address] documented as of this encounter Goals Goal [...] documented as of this encounter Care Teams Svp Chief Marketing Officer Relationship Specialty Start Date End Date Marline Richard MD [address] [place], [place] [phone] PCP - General Family Medicine 04/21/20 documented as of this encounter
--- OUTSIDE RECORDS SUMMARY | 2024-05-18 18:28 | XMS_ITS | Encounter Summary ---
Author Organization [employer] Address [address] [place] [address] Care Team Providers Care [place] Marshal Name Role Phone Marline Richard MD Primary Care Provider [phone] Encounter Details Date Type Department Care Team (Late Contact Info) Description 08/23/2022 Orders Only [facility] MEDICINE [address] [place] [address] Marline Richard MD [address] [place] [address] Hyperkalemia (Primary Dx) Social History Tobacco Use [...] Description 07/21/2024 1:00 PM EDT Office Visit [facility] OPTOMETRY [address] [place] [address] Leslie Aguilar, OD [address] [place] [address] Scheduled Orders Name Type Priority Associated Diagnoses Orde r Schedule Basic Metabolic Panel Lab Routine Hyperkalemia Expected: 08/23/2022 (Approximate), Expires: 08/24/2023 documented as of this encounter Visit Diagnoses Diagnosis Hyperkalemia- Primary Hyperpotassemia documented in this encounter Additional Health Concerns Assessment Noted Time PHQ-9 Depression Total Score: 5 04/20/19 23 1:08 PM EST documented as of this encounter Care Teams [place] Marshal Relationship Specialty Start Date End Date Marline Richard MD [address] [place], [place] [phone] PCP - General Family Medicine 04/21/20 documented as of this encounter
--- OUTSIDE RECORDS SUMMARY | 2024-05-18 18:28 | XMS_ITS | Encounter Summary ---
Author Organization [facility] Address [address] [place] [phone] Phone Care Team Providers Care Assistant Buyer Name Role Phone Lizy Soria RADIO DESPATCHER Primary Care Provider [phone] Encounter Details Date Type Department Care Team ([facility] st Contact Info) Description 04/27/2024 Treatment [facility] [address] [address] Allen Koroma MD [address] [address] Social History Tobacco Use Types [...] care for end stage renal disease. Attending Donkey Engine Firer/Fireman: ALLEN KOROMA MD Dialysis Location: [facility] Schedule: Shift: 1 HOME MEDICATIONS Current [facility] Outpatient Medications amLODIPine (NORVASC) 10 MG tablet [...] 2 (two) times a day [facility] 100 Units under the skin Start Date: Current [facility] Allergies Allergen: MIRTAZAPINE Reaction: Other (see comments) [...] on filedocumented in this encounter Care Teams Assistant Buyer Relationship Specialty Start Date End Date Lizy Soria NP [address] [place] [phone] PCP - General Nurse Practitioner 12/17/23 documented as of this encounter
--- OUTSIDE RECORDS SUMMARY | 2024-05-18 18:28 | XMS_ITS | Encounter Summary ---
Author Organization [employer] Address [address] [place] [address] Care Team Providers Care Drapery Examiner Name Role Phone Marline Richard MD Primary Care Provider [phone] Encounter Details Date Type Department Care Team ([facility] st Contact Info) Description 02/15/2023 Orders Only [facility] MEDICINE [address] [place] [address] Marline Rihcard MD [address] [place] [address] Essential hypertension Social History Tobacco Use Types [...] 1:00 PM EDT Office Visit [facility] OPTOMETRY [address] [place] [address] Jeff, Leslie, OD [address] [place] [address] documented as of this encounter Goals Goal [...] documented as of this encounter Care Teams Drapery Examiner Relationship Specialty Start Date End Date Marline Richard MD [address] [place] [address] PCP - General Family Medicine 04/21/20 documented as of this encounter
--- OUTSIDE RECORDS SUMMARY | 2024-05-18 18:28 | XMS_ITS | Encounter Summary ---
Author Organization [employer] Address [address] [place] [address] Care Team Providers Care Apprenticeship Training Representative Name Role Phone Marline Richard MD Primary Care Provider [phone] Reason for Visit * Reason Onset Date Comments recall 05/06/2024 Encounter Details Date Type Department Care Team ([facility] st Contact Info) Description 05/06/2024 Telephone [facility] MEDICINE [address] [place] [address] Marline Richard MD [address] [place] [address] recall Social History Tobacco Use Types Packs/Day [...] Description 07/21/2024 1:00 PM EDT Office Visit [facility] OPTOMETRY [address] [place] [address] Leslie Aguilar, BRIANNA [address] [place] [address] documented as of this encounter Goals Goal [...] documented as of this encounter Care Teams Apprenticeship Training Representative Relationship Specialty Start Date End Date Marline Richard MD [address] [place] [id number] PCP - General Family Medicine 04/21/20 documented as of this encounter
--- OUTSIDE RECORDS SUMMARY | 2024-05-18 18:28 | XMS_ITS | Encounter Summary ---
Author Organization [employer] Address [address] [address] [place] [address] Care Team Providers Care Cinder Man Name Role Phone Marlnie Richard MD Primary Care Provider [phone] Encounter Details Date Type Department Care Team (Late Contact Info) Description 10/10/2022 Orders Only [facility] MEDICINE [address] [place] [address] Marline Richard MD [address] [place] [address] Essential hypertension (Primary Dx) Social History Tobacco [...] 07/21/2024 1:00 PM EDT Office Visit [facility] OPTOMETRY [address] [place] [address] Leslie Aguilar, OD [address] [place] [address] documented as of this encounter Visit Diagnoses Diagnosis Essential hypertension- Primary Unspecified essential hypertension documented in this encounter Additional Health Concerns Assessment Noted Time PHQ-9 Depression Total Score: 5 04/20/19 23 1:08 PM EST documented as of this encounter Care Teams Cinder Man Relationship Specialty Start Date End Date Marline Richard MD [address] [place] [address] PCP - General Family Medicine 04/21/20 documented as of this encounter
--- OUTSIDE RECORDS SUMMARY | 2024-05-18 18:28 | XMS_ITS | Encounter Summary ---
Author Organization [employer] Address [address] 7[address] [place] [address] Care Team Providers Care Sketcher Name Role Phone Marline Richard MD Primary Care Provider [phone] Encounter Details Date Type Department Care Team (Latest Contact Info) Description 08/18/2023 Orders Only [facility] MEDICINE [address] [place] [address] Marline Richard MD [address] [place] [address] Hypertriglyceridemia (Primary Dx) Social History Tobacco Use [...] 1:00 PM EDT Office Visit [facility] OPTOMETRY [address] [place], [place] [phone] Jeff, Leslie, OD [address] [place] [address] documented as of this encounter Goals Goal [...] documented as of this encounter Care Teams Sketcher Relationship Specialty Start Date End Date Marline Richard MD [address] [place] [address] PCP - General Family Medicine 04/21/20 documented as of this encounter
--- OUTSIDE RECORDS SUMMARY | 2024-05-18 18:29 | XMS_ITS | Encounter Summary ---
Author Organization [employer] Address [address] 7[address] [place] [address] Care Team Providers Care Selling Manager Name Role Phone Marline Richard MD Primary Care Provider [phone] Encounter Details Date Type Department Care Team [...] Visit [facility] OPTOMETRY [address] [place] [address] Jeff, Leslie, OD [address] [place] [address] documented as of this encounter Goals Goal Patient Goal Type Associated Problems Recent Progress Patient-Stated? Author Blood Pressure < 140/90 Blood Pressure 109/56(2024 1:18 PM EST) Deandre cAosta Hemoglobin A1c < 7 Result Component 7.8( 3:44 PM EST) No Deandre Cordon documented as of this encounter Visit Diagnoses Not on filedocumented in this encounter Additional Health Concerns Assessment Noted Time PHQ-9 Depression Total Score: 0 08/02/19 1:47 PM EDT documented as of this encounter Care Teams Selling Manager Relationship Specialty Start Date End Date Marline Richard MD 230 [place], [place] [phone] PCP - General Family Medicine 04/21/20 documented as of this encounter
--- OUTSIDE RECORDS SUMMARY | 2024-05-18 18:29 | XMS_ITS | Encounter Summary ---
Author Organization [facility] Address [address] [place] [phone] Phone Care Team Providers Care Hooker Off Name Role Phone Lizy Soria OMER Primary Care Provider [phone] Encounter Details Date Type Department Care Team ([facility] st Contact Info) Description 05/11/2024 Treatment [facility] [address] [address] Allen Koroma MD [address] [address] End stage renal disease; Dependence on renal dialysis Social History Tobacco Use Types Packs/Day Years [...] Dialysis Note - Allen Koroma MD - 05/11/2024 12:00 AM EST Patient: Kingsley Johnson : 1955 Note Type: Dialysis Rounds-Comp Service Date: 05/11/2024 This patient was personally seen for a complete visit as part of routine monthly dialysis care for end stage renal disease. Attending Bobbin Washer: ALLEN KOROMA MD Dialysis Location: [facility] DIALYSIS Schedule: Shift: 1 OVERVIEW Patient is stable. HOME MEDICATIONS Medications reviewed. Current [facility] Outpatient Medications amLODIPine (NORVASC) 10 MG tablet [...] 2 (two) times a day Start Date: [facility] Inject 100 Units under the skin Start Date: Current [facility] Allergies Allergen: MIRTAZAPINE Reaction: Other (see comments) BP AND FLUID ASSESSMENT Acceptable blood pressure. Fluid status acceptable. ADEQUACY ASSESSMENT Target met. Prescription compliance acceptable. Kt/V, Natural Log 1.37 (04/17/24) 1.42 (03/18/24) [...] Sodium 138 (04/15/24) 137 (03/18/24) 136 (02/12/24) ACCESS ASSESSMENT Vascular access examined. ANEMIA ASSESSMENT PHAN adjusted per protocol. Iron adjusted per protocol. Hgb 8.9 (05/06/24) 10.5 (04/29/24) 10.8 (04/22/24) Hemoglobin 11.3 (09/09/23) 11.0 (09/02/23) 11.7 (08/26/23) Iron Saturation (TSat) 78 (04/15/24) 19 (03/18/24) 55 (02/12/24) Ferritin 1,450 (04/15/24) 756 (03/18/24) 1,110 (02/12/24) Iron 144 (04/15/24) 40 (03/18/24) 98 (02/12/24) TIBC 185 (04/15/24) 211 (03/18/24) 179 (02/12/24) MCV 94.3 (04/15/24) 99.4 (03/18/24) 95.6 (02/12/24) Vitamin B-12 624 (08/19/23) Platelets 164 (04/15/24) 202 (03/18/24) 158 (02/12/24) BMM ASSESSMENT Bone and mineral metabolism parameters reviewed. Calcium, Adjusted Total 8.2 04/15/24 9.1 03/18/24 8.4 02/12/24 Calcium 8.0 04/15/24 9.0 03/18/24 8.1 02/12/24 Corrected Calcium 8.9 09/09/23 9.1 08/19/23 Phosphorus, Serum 5.8 05/01/24 6.2 04/15/24 5.3 03/18/24 Phosphorus 5.7 09/09/23 5.0 08/19/23 Ca*PO4 49.6 04/15/24 47.7 03/18/24 38.9 02/12/24 Calcium Phosphorus Product 50 09/09/23 44 08/19/23 PTH, Intact 346 03/18/24 301 01/15/24 PTH 378 09/09/23 321 08/19/23 Vitamin D, 25-OH, Total 36.9 08/19/23 Magnesium 1.6 04/15/24 1.6 03/18/24 1.6 02/12/24 Alkaline Phosphatase 163 04/15/24 171 03/18/24 166 02/12/24 Aluminum 3 03/18/24 <5 08/19/23 NUTRITION ASSESSMENT Albumin not at goal. Albumin 3.8 04/15/24 3.9 03/18/24 3.6 02/12/24 Potassium 4.4 04/15/24 4.6 03/18/24 4.5 02/12/24 Hemoglobin A1C 7.5 03/18/24 6.4 08/19/23 PHYSICAL EXAM Exam not performed. ADDITIONAL LABS White Blood Cells 8.2 (04/15/24) 8.7 (03/18/24) 4.9 (02/12/24) WBC 7.28 (09/09/23) 7.98 (08/19/23) Cholesterol 86 (03/18/24) HDL 28 (03/18/24) LDL-Calc 28 (03/18/24) Triglycerides 150 (03/18/24) Hep B Surface Antibody 362 (03/18/24) 336 (02/19/24) Hepatitis B Surface Ab 547 (08/19/23) Uric Acid 6.0 (03/18/24) Signed by: ALLEN KOROMA MD on 05/11/2024 at 05:54:50 PM documented in this encounter Plan of Treatment Not on file documented as of this encounter Visit Diagnoses Diagnosis End stage renal disease Dependence on renal dialysis documented in this encounter Care Teams Hooker Off Relationship Specialty Start Date End Date Lizy Soria NP [address] [place] [phone] PCP - General Nurse Practitioner 12/17/23 documented as of this encounter
--- OUTSIDE RECORDS SUMMARY | 2024-05-18 18:29 | XMS_ITS | Encounter Summary ---
Author Organization [employer] Address [address] [facility] 7t [place] [address] Care Team Providers Care Superintendent Oil Well Services Name Role Phone Marline Richard MD Primary Care Provider [phone] Encounter Details Date Type Department Care Team ([facility] Contact Info) Description 01/23/2024 Orders Only [facility] [address] [place] [address] ProviderJose D MD Social History Tobacco Use [...] [facility] [address] [place] [address] JeffLeslie, OD [address] [place] [address] documented as of this encounter Goals Goal [...] documented as of this encounter Care Teams Superintendent Oil Well Services Relationship Specialty Start Date End Date Marline Richard MD [address] [place] [address] PCP - General Family Medicine 04/21/20 documented as of this encounter
--- OUTSIDE RECORDS SUMMARY | 2024-05-18 18:29 | XMS_ITS | Clinical Summary ---
Author Organization [employer] Address [address] [facility] 7t [place] [address] Care Team Providers Care Payroll Tax Analyst Name Role Phone Marline Richard MD Primary Care Provider [phone] Allergies Active Allergy Reactions Criticality Noted Date Comments Metformin 08/05/2023 Mirtazapine Hives 07/08/2014 Medications Continuous Blood Gluc Hub Associate ([employer] Daniel 2 [place]) deviceIndicatio ns:Type 2 diabetes mellitus with stage 2 chronic kidney disease, with long-term current use of insulin ([facility]) 1 each in the morning. 1 each [...] current use of insulin, unspecified CKD stage ([facility]/H[facility]) USE DIRECTED TO TEST BLOOD SUGAR THREE TIMES DAILY 100 strip 09/13/19 Active Continuous Glucose Sensor ([employer] Daniel 2 Sensor) miscIndications :Type 2 diabetes mellitus with stage 2 chronic kidney disease, with long-term current use of insulin ([facility]) USE DIRECTED AND CHANGE EVERY 14 DAYS [...] EVERY EVENING 30 MINUTOS [employer]IT[employer] SERVICE REPRESENTATIVE 90 capsule 3 11/25/19 24 Active hydrALAZINE [...] renal dialysis 08/08/2023 Heart failure, unspecified 08/08/2023 terminal supervisor (current) use of oral hypoglycemic sarahi gs [...] & Plan (04/15/2023 11:28 AM EST): At [facility] dialysis M/W/F schedule Confirmed with dialysis [...] associa adilson with type 2 diabetes mellitus ([facility]) 12/14/2014 Assessment & Plan (08/05/2023 11:10 AM [...] EDT): With worsening Cr, renal ultrasound in [facility] hospitalization in September suggesting renal artery stenosis Had MRA pending Continue Amlodipine, Lasix, Losartan, Metoprolol, Isosorbide - [facility] hospitalist had started Nifedipine as well in September hospitalization, this was discontinued by cardiology 10/10/22, removed from med list Assessment & Plan (08/20/2022 7:51 AM EDT): Currently in [facility]/bump in Cr Managing BP meds with statistical clerk, held all of his BP meds and Metformin today Assessment & Plan (04/24/2022 11:45 AM EST): Continue medbox meds Confirmed this with pharmacy Dispose of rehab meds appropriately Mixed hyperlipidemia 12/14/2014 Encounters Date Type Department Care Team Description 05/08/2024 Orders Only GENERIC EXTERNAL DATA DEPARTMENT Provider, Generic External Data 05/07/2024 Refill [facility] MED & PEDS [address] [place] [address] Marline Richard MD 05/06/2024 Telephone [facility] MEDICINE [address] [place] [phone] Marline Richard MD recall 04/30/2024 1:30 PM EST Office Visit [facility] [address] [place] [address] Iliana Oswald MD Preop examination (Primary Dx); Type 2 diabetes mellitus with chronic kidney disease, with long-term current use of insulin, unspecified CKD stage ([facility]); Primary insomnia; Essential hypertension 04/30/2024 Travel 04/17/2024 Telephone [facility] MEDICINE [address] [place] [address] Marline Richard MD 04/15/2024 Telephone [facility] MEDICINE [address] [place] [address] Colt Mg [place] Chart Prep 03/17/2024 Telephone [facility] MEDICINE [address] [place] [address] Rosa Barrios, RN CGM Sensor PA 03/06/2024 Telephone [facility] MEDICINE [address] [place] [address] Marline Richard MD Pre-op Visit from Last 3 Months Immunizations Name Administration [...] [facility] [address] [place] [address] Leslie Aguilar, OD [address] [place] [address] Health Maintenance Due Date Last Done Comments CT Colonography 1955 Colonoscopy 1955 Colorectal Cancer Screening 1955 FIT DNA/Cologuard 1955 FIT 1955 FOBT 1955 Sigmoidoscopy 1955 Hepatitis C Screening 1973 Influenza Vaccine (#1) 2023 , 12/19/2021, 12/19/2021, Additional history exists Diabetes: Hemoglobin [...] Procedure Name Priority Date/Time Associated Diagnosis Comments BASIC METABOLIC PANEL Routine 05/08/2024 10:39 AM EST CBC WITH AUTO DIFFERENTIAL Routine 05/08/2024 10:39 AM EST POCT GLUCOSE Routine 04/30/2024 1:20 PM EST [...] dialysis, with long-term current use of insulin ([facility]) from Last 3 Months or Most Recently Relevant to Health Maintenance Results * (ABNORMAL) CBC auto differential (05/08/2024 10:39 AM EST) White Blood Count 6.9 4.8 - 10.8 X10*3/uL [facility] Red Blood Count 3.07(L) 4.60 - 5.80 X10*6/uL [facility] Hemoglobin 9.8(L) 14.0 - 18.0 g/dl [facility] Hematocrit 28.1(L) 42.0 - 52.0 % [facility] Mean Corpuscular Volume 91.5 80.0 - 98.0 fL [facility] Mean Corpuscular Hemoglobin 31.9 27.0 - 33.0 pg [facility] Mean Corpuscular HGB Conc 34.9 31.0 - 36.0 g/dl [facility] Red Cell Distribution Width 13.7 11.0 - 16.0 % [facility] Platelet Count 186 160 - 400 X10*3/uL [facility] Mean Platelet Volume 9.8 9.4 - 12.4 fL [facility] Neutrophils Percent Auto 63.6 45 - 73 % [facility] Imm Gran Pct Auto 0.6(H) 0.0 - 0.4 % [facility] Lymphocytes Percent Auto 23.9 20 - 40 % [facility] Monocytes Percent Auto 9.3 2 - 11 % [facility] Eosinophils Percent Auto 2.0 0 - 4 % [facility] Basophils Percent Auto 0.6 0 - 2 % [facility] NRBC Pct Auto 0.0 0.0 - 0.2 /100WBC [facility] Neutrophils Absolute Auto 4.4 2.0 - 8.3 x10*3/uL [facility] Imm Gran Abs Auto 0.04(H) 0.00 - 0.03 X10*3/uL [facility] Lymphocytes Absolute Auto 1.6 1.2 - 4.9 X10*3/uL [facility] Monocytes Absolute Auto 0.6 0.1 - 1.2 X10*3/uL [facility] Eosinophils Absolute Auto 0.1 0.0 - 0.4 X10*3/uL [facility] Basophils Absolute Auto 0.0 0.0 - 0.2 X10*3/uL [facility] NRBC Abs Auto 0.000 0.0 - 0.012 X10*3/uL [facility] 05/08/2024 10:3 9 AM EST 05/08/2024 10:45 AM EST us Generic External Data Provider LAB BLOOD ORDERAB LES Final Result [facility] [address] [place], [place] [phone] * (ABNORMAL) Basic Metabolic Panel (05/08/2024 10:39 AM EST) Sodium 140 135 - 145 mmol/L [facility] Potassium 3.9 3.3 - 5.1 mmol/L [facility] Chloride 98 96 - 108 mmol/L [facility] Carbon Dioxide 32(H) 22 - 29 mmol/L [facility] Anion Gap 14 12 - 20 [facility] Urea Nitrogen (BUN) 39(H) 9 - 16 mg/dL [facility] Creatinine, Serum 4.87(HH) 0.5 - 1.4 mg/dL [facility] Comment:Critical value for C RES Results called to and read backby: DEREK Person calling:RAYMUNDO Date: 05/08/24Time:1102 Creatinine Clr Calc Pharmacy 15.1 [facility] Comment:eGFR (calculated fro m the MDRD study equation) and eCrCl(calculated from the Cockcroft-Gault equation) are based ondifferent parameters and may not yield comparable results.If eCrCl result is absurd, please check patient'sheight/weight. Estimated Glomerular Filt Rate 12 [facility] Comment:Chronic Kidney Disea se: Estimated GFR < 60 mL/min/1.49p5Pzoghr Kidney Disease: Estimated GFR < 15 mL/min/1.73m2 Glucose 124(H) 60 - 115 mg/dL [facility] Calcium 9.5 8.4 - 10.2 mg/dL [facility] 05/08/2024 10:3 9 AM EST 05/08/2024 10:45 AM EST Generic External Data Provider LAB BLOOD ORDERAB LES Final Result [facility] [address] [place] [phone] * (ABNORMAL) POCT glucose manually resulted (04/30/2024 1:20 PM EST) Pathologist [facility] Glucose Blood, POC 439(A) 60 - 200 mg/dL QC Media Lot # Comment:[id number] Lot# Expiration Date Comment:06/16/2024 Blood Capillary blood specimen / Unknown 04/30/2024 1:20 PM EST Iliana Oswald MD POINT OF CARE TEST ENTER/EDIT ORDERABLES Final Result * (ABNORMAL) POCT HGB A1C (02/10/2024 3:44 PM EST) Pathologist [facility] Hemoglobin A1C 7.8(A) 4.0 - 6.0 % QC Media Lot # [id number] Lot# Expiration Date [id number] Blood 02/10/2024 3:44 PM EST Marline Richard MD POINT OF CARE TEST ENTER/EDIT ORDERABLES Final Result * (ABNORMAL) Lipid Panel, Standard (07/15/2023 2:42 PM EDT) Triglycerides 294(H) <150 mg/dL [facility] Comment:Desirable Triglyceri de: less than 150 mg/dLBorderline High Triglyceride 150-199 mg/dLHigh Triglyceride: 200-499 mg/dLVery High Triglyceride: greater than or equal to 5OO mg/dL Cholesterol 118 <200 mg/dL [facility] Comment:Desirable Cholestero l: less than 200 mg/dLBorderline High Cholesterol: 200-239 mg/dLHigh Cholesterol: greater than 239 mg/dL LDL Cholesterol Calculated 22 <100 mg/dL [facility] Comment:Desirable LDL: less than 100 mg/dLNear Optimal/Above Optimal LDL: 110- 129 mg/dLBorderline High LDL: 130-159 mg/dLHigh LDL: 160-189 mg/dLVery High LDL: greater than or equal to 190 mg/dL HDL Cholesterol 38(L) >40 mg/dL [facility] Comment:Desirable HDL: great er than 40 mg/dL Note: This HDL assay may give artificially low results in patients with liver disease. Blood Venous blood specimen / Unknown 07/15/2023 2:42 PM EDT 07/15/2023 4:10 PM EDT us Marline Richard MD LAB BLOOD ORDERABLES Final Res ult [facility] [address] [place] [address] [phone] from Last 3 Months or Most Recently Relevant to Health Maintenance Insurance [facility] Care Teams Payroll Tax Analyst Relationship Specialty Start Date End Date Marline Richard MD [address] [place] [address] PCP - General Family Medicine 04/21/20
--- OUTSIDE RECORDS SUMMARY | 2024-05-18 18:29 | XMS_ITS | Encounter Summary ---
Author Organization [employer] Address [address] [facility] [address]t [place] [address] Care Team Providers Care Grocery Store Bagger Name Role Phone Marline Richard MD Primary Care Provider [phone] Reason for Referral * Cardiology (Routine) - Closed Specialty Diagnoses / Procedures Referred By Contac t Referred To Contact Diagnoses Preop examination Procedures ECG 12 lead Iliana Oswald MD [address] [place] [address] Phone: tel: fax: [address] Phone: tel: fax: Referral ID Status Reason Start Date Expiration Date Visits Re quested Visits Authorized [id number] Closed 04/30/2024 04/30/2025 1 1 Reason for Visit * Reason Comments Pre-op Exam Left eye Encounter Details Date Type Department Care Team (Late st Contact Info) Description 04/30/2024 1:30 PM EST Office Visit [facility]S [address] [place], [place] [phone] Iliana Oswald MD [address] [place], [place] [phone] Preop examination (Primary Dx); Type 2 diabetes [...] cataract surgery under local anesthesia through with [facility]. Patient has multiple chronic medical problems including [...] done under local anesthesia. EKG done at [facility] reviewed and was at baseline. Patient and son aware to give him all of his blood pressure medications day of his surgery. Okay to hold insulin until returns home when able to eat. Orders: - ECG 12 lead Type 2 diabetes mellitus with chronic kidney disease, with long-term current use of insulin, unspecified CKD stage ([facility]) - POCT glucose manually resulted Primary insomnia [...] [facility] OPTOMETRY [address] [place], [place] [phone] Leslie Aguilar, OD [address] [place], [place] [phone] Scheduled Orders Name Type Priority Associated Diagnoses [...] glucose manually resulted (04/30/2024 1:20 PM EST) [facility] Glucose Blood, POC 439(A) 60 - 200 mg/dL QC Media Lot # Comment:[id number] Lot# Expiration Date Comment:06/16/2024 Blood Capillary blood [...] documented as of this encounter Care Teams Grocery Store Bagger Relationship Specialty Start Date End Date Marline Richard MD [address] [place] [address] PCP - General Family Medicine 04/21/20 documented as of this encounter
--- OUTSIDE RECORDS SUMMARY | 2024-05-18 18:29 | XMS_ITS | Encounter Summary ---
Author Organization [facility] Address [address] [place] [phone] Phone Care Team Providers Care Supervisor Packing Name Role Phone Lizy Soria OMER Primary Care Provider [phone] Encounter Details Date Type Department Care Team ([facility] st Contact Info) Description 05/13/2024 Treatment [facility] [address] [address] Allen Koroma MD [address] [address] End stage renal disease; Dependence [...] Dialysis Note - Allen Koroma MD - 05/13/2024 12:00 AM EST Patient: Kingsley Johnson : 1955 Note Type: Dialysis Rounds-Basic Service Date: 05/13/2024 This patient was personally seen for a basic visit as part of routine monthly dialysis care for end stage renal disease. Attending Plant Technician: ALLEN KOROMA MD Dialysis Location: [facility] Schedule: Shift: 1 HOME MEDICATIONS Current [facility] Outpatient Medications amLODIPine (NORVASC) 10 [...] 2 (two) times a day Start Date: [facility] Inject 100 Units under the [...] 137 (03/18/24) 136 (02/12/24) ANEMIA ASSESSMENT Hgb 8.9 (05/06/24) 10.5 (04/29/24) 10.8 (04/22/24) [...] Uric Acid 6.0 (03/18/24) Signed by: ALLEN OKROMA MD on 05/13/2024 at 08:20:35 AM documented in this encounter Plan of Treatment Not on file documented as of this encounter Visit Diagnoses Diagnosis End stage renal disease Dependence on renal dialysis documented in this encounter Care Teams Supervisor Packing Relationship Specialty Start Date End Date Lizy Soria NP [address] [place] [phone] PCP - General Nurse Practitioner 12/17/23 documented as of this encounter
--- OUTSIDE RECORDS SUMMARY | 2024-05-18 18:29 | XMS_ITS | Encounter Summary ---
Author Organization [facility] Address [address] [place] [phone] Phone Care Team Providers Care Satellite Instruction Facilitator Name Role Phone Lizy Soria VP CLINICAL Primary Care Provider [phone] Encounter Details Date Type Department Care Team ([facility] st Contact Info) Description 05/18/2024 Treatment [facility] [address] [phone] Allen Koroma MD [address] [phone] End stage renal disease; Dependence [...] Dialysis Note - Allen Koroma MD - 05/18/2024 12:00 AM EDT Patient: Kingsley Johnson : 1955 Note Type: Dialysis Rounds-Basic Service Date: 05/18/2024 This patient was personally seen for a basic visit as part of routine monthly dialysis care for end stage renal disease. Attending Labor Relations Director: ALLEN KOROMA MD Dialysis Location: [facility] Schedule: Shift: 1 HOME MEDICATIONS Current [facility] Medications amLODIPine (NORVASC) 10 MG tablet [...] 2 (two) times a day Start Date: [facility] Inject 100 Units under the skin Start Date: Current [facility] Epic Allergies Allergen: MIRTAZAPINE Reaction: Other (see comments) ADEQUACY ASSESSMENT Kt/V, Natural Log 1.12 (05/13/24) 1.37 (04/17/24) 1.42 (03/18/24) UREA REDUCTION RATIO (%) 60 (05/13/24) 70 (04/17/24) 70 (03/18/24) % Urea Reduction 75 (09/13/23) 69 (09/09/23) 72 (08/21/23) BUN 68 (05/13/24) 69 (04/17/24) 74 (04/15/24) BUN Post Dialysis 27 (05/13/24) 21 (04/17/24) 20 (03/18/24) Creatinine 7.18 (05/13/24) 6.88 (04/15/24) 6.64 (03/18/24) Bicarbonate (CO2) 23 (05/13/24) 26 (04/15/24) 26 (03/18/24) Sodium 140 (05/13/24) 138 (04/15/24) 137 (03/18/24) ANEMIA ASSESSMENT Hgb 8.5 (05/13/24) 8.9 (05/06/24) 10.5 (04/29/24) Hemoglobin 11.3 (09/09/23) 11.0 (09/02/23) 11.7 (08/26/23) Iron Saturation (TSat) 92 (05/13/24) 78 (04/15/24) 19 (03/18/24) Ferritin 1,460 (05/13/24) 1,450 (04/15/24) 756 (03/18/24) Iron 182 (05/13/24) 144 (04/15/24) 40 (03/18/24) TIBC 199 (05/13/24) 185 (04/15/24) 211 (03/18/24) MCV 94.9 (05/13/24) 94.3 (04/15/24) 99.4 (03/18/24) Vitamin B-12 624 (08/19/23) Platelets 175 (05/13/24) 164 (04/15/24) 202 (03/18/24) BMM ASSESSMENT Calcium, Adjusted Total 8.6 05/13/24 8.2 04/15/24 9.1 03/18/24 Calcium 8.4 05/13/24 8.0 04/15/24 9.0 03/18/24 Corrected Calcium 8.9 09/09/23 9.1 08/19/23 Phosphorus, Serum 4.6 05/13/24 5.8 05/01/24 6.2 04/15/24 Phosphorus 5.7 09/09/23 5.0 08/19/23 Ca*PO4 38.6 05/13/24 49.6 04/15/24 47.7 03/18/24 Calcium Phosphorus Product 50 09/09/23 44 08/19/23 PTH, Intact 346 03/18/24 301 01/15/24 PTH 378 09/09/23 321 08/19/23 Vitamin D, 25-OH, Total 36.9 08/19/23 Magnesium 1.5 05/13/24 1.6 04/15/24 1.6 03/18/24 Alkaline Phosphatase 191 05/13/24 163 04/15/24 171 03/18/24 Aluminum 3 03/18/24 <5 08/19/23 NUTRITION ASSESSMENT Albumin 3.7 05/13/24 3.8 04/15/24 3.9 03/18/24 Potassium 5.2 05/13/24 4.4 04/15/24 4.6 03/18/24 Hemoglobin A1C 7.5 03/18/24 6.4 08/19/23 ADDITIONAL LABS White Blood Cells 8.2 (05/13/24) 8.2 (04/15/24) 8.7 (03/18/24) WBC 7.28 (09/09/23) 7.98 (08/19/23) Cholesterol 86 (03/18/24) HDL 28 (03/18/24) LDL-Calc 28 (03/18/24) Triglycerides 150 (03/18/24) Hep B Surface Antibody 362 (03/18/24) 336 (02/19/24) Hepatitis B Surface Ab 547 (08/19/23) Uric Acid 6.0 (03/18/24) Signed by: ALLEN KOROMA MD on 05/18/2024 at 08:54:13 AM documented in this encounter Plan of Treatment Not on file documented as of this encounter Visit Diagnoses Diagnosis End stage renal disease Dependence on renal dialysis documented in this encounter Care Teams Satellite Instruction Facilitator Relationship Specialty Start Date End Date Lizy Soria NP [address] [place] [phone] PCP - General Nurse Practitioner 12/17/23 documented as of this encounter
--- OUTSIDE RECORDS SUMMARY | 2024-05-18 18:29 | XMS_ITS | Clinical Summary ---
Author Organization [facility] Address [address] [place] [phone] Phone Care Team Providers Care Quality Checker Name Role Phone Marline Richard MD Primary Care Provider [phone] Allergies No known active allergies Medications No [...] mmol/L LAB CHEMISTRY METHOD 01/22/2024 11:37 AM [facility] Potassium 4.2 3.5 - 5.5 mmol/L LAB CHEMISTRY METHOD 01/22/2024 11:37 AM [facility] Comment:Hemolysis present Chloride 101 96 - 110 mmol/L LAB CHEMISTRY METHOD 01/22/2024 11:37 AM [facility] CO2 31 21 - 32 mmol/L LAB CHEMISTRY METHOD 01/22/2024 11:37 AM [facility] Anion Gap 5 3 - 11 LAB CHEMISTRY METHOD 01/22/2024 11:37 AM [facility] Glucose 121(H) 70 - 100 mg/dL LAB CHEMISTRY METHOD 01/22/2024 11:37 AM [facility] BUN 24 5 - 25 mg/dL LAB CHEMISTRY METHOD 01/22/2024 11:37 AM [facility] Creatinine 3.26(H) 0.70 - 1.30 mg/dL LAB CHEMISTRY METHOD 01/22/2024 11:37 AM [facility] eGFR 20(L) >=60 mL/min/1. 73m2 LAB CHEMISTRY METHOD 01/22/2024 11:37 AM [facility] Comment:Calculation based on the??Chronic Kidney Disease Epidemiology Collaboration (CKD-EPI) equation refit??without adjustment for race. BUN/Creatinine Ratio 7.4 LAB CHEMISTRY METHOD 01/22/2024 11:37 AM [facility] Calcium 9.1 8.5 - 10.5 mg/dL LAB CHEMISTRY METHOD 01/22/2024 11:37 AM [facility] AST (SGOT) 37 10 - 42 unit/L LAB CHEMISTRY METHOD 01/22/2024 11:37 AM [facility] Comment:Hemolysis present ALT (SGPT) 31 10 - 60 unit/L LAB CHEMISTRY METHOD 01/22/2024 11:37 AM [facility] Alkaline Phosphatase 147(H) 42 - 121 unit/L LAB CHEMISTRY METHOD 01/22/2024 11:37 AM [facility] Total Protein 6.8 6.0 - 8.0 g/dL LAB CHEMISTRY METHOD 01/22/2024 11:37 AM [facility] Albumin 3.2 3.2 - 5.0 g/dL LAB CHEMISTRY METHOD 01/22/2024 11:37 AM [facility] Total Bilirubin 0.6 0.0 - 1.4 mg/dL LAB CHEMISTRY METHOD 01/22/2024 11:37 AM [facility] Blood Venous blood specimen / Unknown Venipuncture / Unknown 01/22/2024 10:24 AM EST 01/22/2024 10:59 AM EST Kelsey DEAN LAB BLOOD ORDERABLES Final Re sult ROQUE QUIJANO [place] ([facility] [address] [place] [address], from Last 3 Months or Most Recently Relevant to Health Maintenance Insurance [employer] Member Subscriber Plan / Payer (Ef fective 2022-Present) Name:Kingsley Rivero Relation to Subscriber:Self Name:Kingsley Rivero Payer ID:[id number] Group ID:[id number] Type:Not on file Address: [place] [address] [address] [phone] Care Teams Quality Checker Relationship Specialty Start Date End Date Marline Richard MD [address] [place] [phone] PCP - General Commercial Fisher 01/22/24
--- OUTSIDE RECORDS SUMMARY | 2024-05-18 18:29 | XMS_ITS | Data Portability ---
Author Organization [employer] Address [address] [place] [address] Care Team Providers Care Goal Umpire Name Role Phone [facility] OTHER HIM [facility] OTHER Assessment Encounter Date Assessment Date Assessment LastModified by Organization Details LastModified Time 03/22/2022 03/22/2022 I have reviewed and agree with the Assessment and Plan as documented by the Hand Tool Filer. I provided real-time medical direction via phone [...] Assessment and Plan as documented by the Hand Tool Filer. Patient given the opportunity to ask questions. [...] but is anuric at baseline now. Per recovery operator helper on the scene, vital signs show that he is orthostatic. He is not tachycardic at baseline. His mentation is within normal limits. Impression implant: Likely hypotension related to fluid shifts after change in hemodialysis schedule. Asked him to follow-up tomorrow with his cut roll machine operator at his hemodialysis center. Encourage p.o. intake. [...] Name and Address Organization Details Recorded Time 62455 metformin medicatio n Not available Not available Not available 02/03/2024 6809 RxNorm Not Available [facility] - production 4 13:24:19 05669 mirtazapi ne medicatio n Not available Not available Not available 02/03/2024 98972 RxNorm Not Available [facility] - production 13:24:19 [...] EVERY EVENING 30 MINUTOS DESPUES DE LA MINE PATROL active Not Available Not Available No t [...] Not Available Not Available Not Available [facility] Lite kit USE TO TEST BLOOD SUGAR [...] /min 124 mm[Hg] 55 mm[Hg] Not Available [facility] 3 19:28:13 Date Recorded Oxygen saturation Oxygen saturation in Arterial blood by Pulse oximetry Body temperature Respiratory rate Heart rate Systolic blood pressure Diastolic blood pressure Provider Name and Address Organization Details Last Updated DateTime 4 99 % 99 % 99.3 [degF] 18 /min 58 /min 100 mm[Hg] 55 mm[Hg] Not Available [facility] 4 15:13:38 Date Recorded Respiratory rate Body temperature Oxygen saturation Oxygen saturation in Arterial blood by Pulse oximetry Heart rate Systolic blood pressure Diastolic blood pressure Provider Name and Address Organization Details Last Updated DateTime 3 18 /min 98.3 [degF] 98 % 98 % 86 /min 148 mm[Hg] 88 mm[Hg] Not Available [facility] 3 11:12:30 Social History None recorded. Functional Status None recorded. Mental Status None recorded. Family History Nothing Reported. Medical History No medical history recorded. Past Encounters Encounter ID Performer Location Encounter Start Date Encounter Closed Date Diagnosis/Indication Diagnosis SNOMED-CT Code Diagnosis ICD10 Code Diagnosis Note [id number] Ned López MD [facility] [address] [place] [phone] 03/22/2022 11:12:28 03/27/2022 11:25:26 Foot pain 08808833 M79.673 [id number] Michael Thacker MD [facility] [address] [place] [phone] 02/19/2023 19:28:08 02/20/2023 13:35:32 Viral upper respiratory tract infection 993674073 J06.9 [id number] Marjan Dale MD [facility] [address] [place] [phone] 02/03/2024 15:13:32 02/03/2024 21:25:25 End stage renal failure on dialysis 145079114 N18.6 Health Concerns Section Related Observation LastModified by Organization Detai ls LastModified Time None Recorded Concern Status LastModified by Organization Details LastModified Time None Recorded Advance Directives Directive None Recorded Payers Encounter Date Sequence Insurance Name Policy Number Policy Lazo Covered Member ID Lazo Member ID Guarantor Name 03/22/2022 1 [facility] - DOS PRIOR TO 2022 - DUAL ELIGIBLE (MEDICARE REPLACEMENT/ADV ANTAGE - HMO) Kingsley Johnson [id number] Kingsley Johnson 02/19/2023 1 [facility] - DOS ON OR AFTER 2022 - DUAL ELIGIBLE - NURSING HOME OPTIONS AND ONE CARE (MEDICARE REPLACEMENT/ADV ANTAGE - HMO) Kingsley Johnson [id number] Kingsley Johnson 02/03/2024 1 [facility] - DOS ON OR AFTER 2022 - DUAL ELIGIBLE - NURSING HOME OPTIONS AND ONE CARE (MEDICARE REPLACEMENT/ADV ANTAGE - HMO) Kingsley Johnson [id number] Kingsley Johnson Notes Date Note Type Note [...] ................... ................... ................... ................... ................... ................... ........ Hand Tool Filer Note: Pt states he has part of [...] surgeon but he would not give more. [facility] consulted. Pt given 15mg IM toradol. Red flags discussed ................... ................... ................... ................... ................... ................... ................... ........ Disposition: Fulfilled Ned López MD [address] [facility],[address], [place], [phone], [employer] 03/27/2022 10:09:04 02/19/2023 text/html HPI: Hx CKD [...] CHUYITA---- 02/18 5:08p call to member via [employer] [phone], as we can not see member this evening due to capacity, no answer and VM left to call back, will place on the schedule for tomorrow 02/19- AAdithya ................... ................... ................... ................... ................... ................... ................... ........ Hand Tool Filer Note From Rojelio Rendon: Pt reports 5 days of URI symptoms of dry cough not feeling well and nasal congestion. Denies any fever chills denies any N/VD denies any sob denies any pain. Reports that he has been feeling better days and symptoms are improving. On scene vs taken and Covid flu done [facility] was called and cleared. ................... ................... ................... ................... ................... ................... ................... ........ Disposition: Fulfilled Michael Thacker MD [address] [place] [address],[address], [place], [phone], [employer] 02/19/2023 23:36:12 02/03/2024 text/html HPI: Patient on [...] ................... ................... ................... ................... ................... ................... ........ Hand Tool Filer Note From Serge Cordova: Dispatched to above [...] has been taking his medications as directed. [facility] consulted. Pt informed of re flags and when to seek further medical attention. Pt found seated in wheel chair speaking in full clear sentences with no signs of distress. AO and GCS-15. PERRL. Skin P/W/D. Airway open and lung sounds clear in all stephenson. ABD soft non tender. Rest exam unremarkable. ................... ................... ................... ................... ................... ................... ................... ........ [facility] Consulted: Marjan Dale ................... ................... ................... ................... ................... ................... ................... ........ Disposition: Hilario Dale MD [address] [facility],[address], [place], [phone], [employer] 02/03/2024 20:08:16
[2024-05-18 18:55] VITALS: BP 118/66; PULSE 66; RESP 16; TEMP 36.6; O2SAT 96
--- NOTE | 2024-05-18 18:57 | PC.NURSE ---
Pt reports sx's improved with treatment; vss; resting quietly in room
[2024-05-18 19:05] VITALS: BP 118/66; PULSE 66; RESP 16; TEMP 36.6; O2SAT 96
== END 2024-05-18 19:06 | disposition home or self-care (01) ==
PROVIDERS: Emergency Provider Emergency Medicine
DX: R51.9 Headache, unspecified (principal); I95.9 Hypotension, unspecified; E11.22 Type 2 diabetes mellitus with diabetic chronic kidney disease; I12.0 Hypertensive chronic kidney disease with stage 5 chronic kidney disease or end stage renal disease; N18.6 End stage renal disease; Z99.2 Dependence on renal dialysis; Z79.4 Long term (current) use of insulin; Z79.82 Long term (current) use of aspirin; Z79.899 Other long term (current) drug therapy; Z03.818 Encounter for observation for suspected exposure to other biological agents ruled out
CPT/HCPCS: 0241U; 71045; 80048; 80076; 80307; 82803; 83690; 83735; 83880; 84484; 85025; 86140; 93005; 96361; 96365; 96375; 99285; J0131; J2405; J2470

== ENCOUNTER → 2024-05-18 15:11 | Outpatient (BNV) | payer OTHER, SELFPAY | PROVIDERS: Emergency Provider Emergency Medicine; Visit Provider Internal Medicine | DX: I44.0 Atrioventricular block, first degree (principal) | CPT/HCPCS: 93010 ==

== ENCOUNTER → 2024-05-18 15:11 | Outpatient (BNV) | payer OTHER, SELFPAY | PROVIDERS: Emergency Provider Emergency Medicine; Visit Provider Radiology Diagnostic Radiology | DX: I95.9 Hypotension, unspecified (principal) | CPT/HCPCS: 71045 ==

== ENCOUNTER 2024-05-25 08:45 | Emergency (ER) | payer OTHER, SELFPAY ==
--- NOTE | 2024-05-25 | ECG_ITS ---
Test Reason : DIZZINESS Blood Pressure : */* mmHG Vent. Rate : 54 BPM Atrial Rate : 54 BPM P-R Int : 256 ms QRS Dur : 98 ms QT Int : 430 ms P-R-T Axes : -41 -19 236 degrees QTcB Int : 407 ms Unusual P axis, possible ectopic atrial bradycardia Nonspecific T wave abnormality Abnormal ECG When compared with ECG of 18-May-2024 15:11, Ectopic atrial rhythm has replaced Sinus rhythm Nonspecific T wave abnormality, worse in Inferior leads Referred By: Jami Cardoza Electronically Signed By: Armando Moody
--- NOTE | ~2024-05-25 | CT_ITS ---
EXAMINATION: CT HEAD WITHOUT IV CONTRAST HISTORY: yates. TECHNIQUE: Unenhanced helical CT of the head was performed per standard departmental protocol. Coronal and sagittal reformats of the head were also evaluated. One or more of the following techniques was used for dose reduction: Automated exposure control, adjustment of the mA and/or kV according to patient size, use of iterative reconstruction technique. DLP: 784 mGy-cm COMPARISON: Comparison is made with the prior examination dated 01/21/2023. FINDINGS: BRAIN: The brain parenchyma is unremarkable. There is normal lawrence/white differentiation. The ventricular system is normal in size and configuration. There is no mass effect or midline shift. No intra- or extra-axial fluid collections are identified. SINUSES: The visualized paranasal sinuses are clear. The mastoid air cells and middle ear cavities are well pneumatized. ORBITS: The visualized orbits are unremarkable. BONES/SOFT TISSUES: The extracranial soft tissues are unremarkable. The calvarium is intact. No suspicious lytic or sclerotic lesions. CT/CT head/brain wo IV con IMPRESSION: No acute intracranial abnormality. Electronically signed by: Mateusz Walton MD 05/25/2024 09:57 AM EDT
[2024-05-25 09:05] VITALS: BP 117/54; PULSE 52; RESP 18; TEMP 36.6; O2SAT 99; BMI 27.4
--- NOTE | 2024-05-25 09:33 | ED_ITS ---
HPI - Headache General Chief Complaint: Dizziness Stated Complaint: MIGRAINE LOW BP DIZZINESS Time Seen by Provider: 05/25/24 08:46 History of Present Illness HPI Narrative: Patient is a 69-year-old male presents today with having dialysis for 90 minutes or so developed dizziness and headache. Headache is over the frontal area goes to the right side. There is no change in vision. There is no fever there is nausea. No fever no chills no focal weakness. Has a history of headaches in the past. Previous history of migraine. History of uncontrolled diabetes. History of cocaine use. Related Data Home Medications ?Medication ?Instructions ?Recorded ?Confirmed sertraline 50 mg tablet 50 mg PO DAILY 04/27/21 05/08/24 albuterol sulfate 90 mcg/actuation 2 puff inhalation Q4H PRN Wheezing 01/13/23 05/08/24 aerosol inhaler (Ventolin HFA) aspirin 81 mg chewable tablet 1 tab PO DAILY 01/13/23 05/08/24 atorvastatin 80 mg tablet 80 mg PO BEDTIME 01/13/23 05/08/24 docusate sodium 100 mg capsule 100 mg PO BEDTIME 01/13/23 05/08/24 ezetimibe 10 mg tablet 10 mg PO DAILY 01/13/23 05/08/24 flash glucose scanning reader 01/13/23 03/09/24 (AppsFunderStyle [place] [address] [place]) flash glucose sensor (AppsFunderStyle 01/13/23 03/09/24 Daniel 2 Sensor kit) hydralazine 50 mg tablet 100 mg PO TID 01/13/23 05/08/24 tamsulosin 0.4 mg capsule 0.4 mg PO BEDTIME 01/13/23 05/08/24 insulin degludec 100 unit/mL (3 25 unit subcut DAILY 09/26/23 03/09/24 mL) subcutaneous pen (Tresiba FlexTouch U-100 insulin) trazodone 100 mg tablet 50 mg PO BEDTIME PRN insomnia 09/26/23 05/08/24 blood sugar diagnostic (Modest IncTouch #10 ea 12/18/23 03/09/24 Ultra Test strips) blood-glucose meter (Modest IncTouch #1 ea 12/18/23 03/09/24 Ultra2 Meter) isosorbide mononitrate 120 mg 120 mg PO DAILY 12/18/23 05/08/24 tablet,extended release 24 hr losartan 50 mg tablet 50 mg PO BID 12/18/23 05/08/24 nifedipine 90 mg tablet,extended 90 mg PO DAILY 12/18/23 05/08/24 release 24 hr carvedilol 25 mg tablet 25 mg PO DAILY 05/08/24 05/08/24 cyclobenzaprine 10 mg tablet 5 mg DAILY 05/08/24 05/08/24 glipizide 10 mg tablet 10 mg PO DAILY 05/08/24 05/08/24 insulin lispro 100 unit/mL 3 - 10 unit subcut TID 05/08/24 05/08/24 subcutaneous pen (Humalog KwikPen (U-100) Insulin) Previous Rx's ?Medication ?Instructions ?Recorded omeprazole 40 mg capsule,delayed 40 mg PO DAILY #30 caps 02/14/23 release Allergies Allergy/AdvReac Type Severity Reaction Status Date / Time metformin AdvReac Unknown Verified 05/25/24 09:07 Review of Systems 2 Review of Systems: positive headache Yes all other systems are reviewed and are negative [facility] Past Medical History Attestation statement: The following information was validated with the patient. Medical History Uncontrolled hypertension CAD (coronary artery disease) Fluid overload Anemia in ESRD (end-stage renal disease) Anemia PAD (peripheral artery disease) Acute kidney injury superimposed on CKD Hypertension Type 2 diabetes mellitus ESRD (end stage renal disease) CKD (chronic kidney disease) stage 3, GFR 30-59 ml/min Renal artery stenosis Anemia Erectile dysfunction (HFpEF) heart failure with preserved ejection fraction Osteomyelitis CKD stage 3 due to type 2 diabetes mellitus LIVE (iron deficiency anemia) Hyperlipidemia associated with type 2 diabetes mellitus Kidney disease High cholesterol HTN (hypertension) Diabetes Surgical History Status post transmetatarsal amputation of left foot Hx of amputation History of amputation of right forefoot H/O shoulder surgery Family History Family History Other No family history of coronary artery disease Social History Social History Household Members: None Housing: Apartment Do you presently have visiting nurse or other home services: Yes ([employer] ONLY) Alcohol intake: former Comment: previously medicated with IV morphine Patient Tobacco Use Status: Never used Tobacco Tobacco use type: Cigarette Second Hand Smoke Exposure: No Substance Use Type: Crack/Cocaine Advance Directives: Yes Advance Directives on File: Yes Advance Directives Date on File: 02/02/22 Do you have a plan to hurt others: No Plan service: No Current occupational status: retired Physical Exam 2 Vital Signs: Vital Signs: Last Vital Signs Temp 97.6 F 05/25/24 11:04 Pulse 62 05/25/24 11:04 Resp 12 05/25/24 11:04 BP 146/31 H 05/25/24 11:04 Pulse Ox 97 05/25/24 11:04 O2 Del Method Room Air 05/25/24 11:04 BMI result Body Mass Index 27.4 Appearance: Alert. Oriented X3. No acute distress. Eyes: Pupils equal, round and reactive to light. ENT: Pharynx normal. Neck: Normal inspection. Neck supple. No lymph nodes noted. No crepitus CVS: Normal heart rate and rhythm. Pulses normal. Normal S1 and S2 Respiratory: No respiratory distress. Breath sounds normal. No Wheezing. No rales Abdomen: Soft and nontender. No rigidity. No distention. good BS x4 Skin: Skin warm and dry. Normal skin color. Normal skin turgor. Extremities: status post [id number] amputation on the left and above the knee amputation on the right.Neurovascular intact to all extremities. No Lacerations. No Rash Neuro: Oriented X 3. No motor deficit. No sensory deficit. Moving all extermities. No slurred speech Medications Administered Discontinued Medications Generic Name Dose Route Start Last Admin Trade Name Freq PRN Reason Stop Dose Admin Diphenhydramine HCl 25 mg 05/25/24 09:29 05/25/24 10:20 Diphenhydramine Hcl 50 Mg/Ml Vial IVPUSH 05/25/24 09:30 25 mg ONCE ONE Administration Metoclopramide HCl 10 mg 05/25/24 09:29 05/25/24 10:19 Metoclopramide Hcl 10 Mg/2 Ml Vial IVPUSH 05/25/24 09:30 10 mg ONCE ONE Administration Medical Decision Making Medical Decision Making MDM Narrative: patient is 69 years old has a history of end-stage renal disease was on the dialysis machine after 90 minutes patient has developed a headache. The headache is frontal had something similar in the past it radiates down the right side we did a CT scan of the head my interpretation patient's CT head was grossly negative for bleed. Radiology's reading was the same. Given patient's symptoms less than [address] scan unlikely to have an intracranial bleed. Patient is given migraine treatment with good results. Had some dizziness we did an troponin which was negative. Patient's creatinine is baseline. Electrolyte all consistent with end-stage renal disease. Patient's EKG showed a sinus pattern heart rate is 60 AL QRS QTC normal no acute ST segment elevation no changes from prior. Patient's case discussed with the nephrology team feel comfortable discharge follow-up on an outpatient basis will arrange for patient to get dialyzed again on Saturday. He is currently in no distress. In stable condition. Will discharge home. Differential Diagnosis Differential Diagnoses: The differential diagnosis associated with the presentation includes Admission/Observation Consideration of admission/observation: Escalation of care including admission/observation considered Lab Data MDM Lab Attestation statement: I reviewed the patient's lab results. 05/25/24 09:59 05/25/24 09:58 Labs: Lab Results 05/25/24 05/25/24 05/25/24 Range/Units 09:58 09:59 10:12 WBC 8.5 (4.8-10.8) X10*3/uL RBC 2.79 L (4.60-5.80) X10*6/uL Hgb 9.0 L (14.0-18.0) g/dl Hct 26.4 L (42.0-52.0) % MCV 94.6 (80.0-98.0) fL MCH 32.3 (27.0-33.0) pg MCHC 34.1 (31.0-36.0) g/dl RDW 16.2 H (11.0-16.0) % Plt Count 203 (160-400) X10*3/uL MPV 10.1 (9.4-12.4) fL Immature Gran % (Auto) 0.5 H (0.0-0.4) % Neut % (Auto) 65.3 (45-73) % Lymph % (Auto) 21.9 (20-40) % [place] % (Auto) 9.8 (2-11) % Eos % (Auto) 2.0 (0-4) % Baso % (Auto) 0.5 (0-2) % Lymph # (Auto) 1.9 (1.2-4.9) X10*3/uL Canadian # (Auto) 0.8 (0.1-1.2) X10*3/uL Eos # (Auto) 0.2 (0.0-0.4) X10*3/uL Baso # (Auto) 0.0 (0.0-0.2) X10*3/uL Abs Immat Gran (auto) 0.04 H (0.00-0.03) X10*3/uL Absolute Neuts (auto) 5.6 (2.0-8.3) x10*3/uL Absolute Nucleated RBC 0.000 (0.0-0.012) X10*3/uL Nucleated RBC % (auto) 0.0 (0.0-0.2) /100WBC VBG pH 7.51 H (7.32-7.43) VBG pCO2 42 mmHg VBG pO2 96 mmHg VBG HCO3 34 H (22-26) mmol/L VBG O2 Saturation 99.0 % VBG Base Excess 10.4 mmol/L Sodium 140 (135-145) mmol/L Potassium 4.2 (3.3-5.1) mmol/L Chloride 99 (96-108) mmol/L Carbon Dioxide 30 H (22-29) mmol/L Anion Gap 15 (12-20) BUN 46 H (9-16) mg/dL Creatinine 5.76 H* (0.5-1.4) mg/dL Estim Creat Clear Calc 11.7 Estimated GFR 10 Random Glucose 164 H (60-115) mg/dL Calcium 8.9 (8.4-10.2) mg/dL Magnesium 1.6 (1.6-2.6) mg/dL Total Bilirubin 0.5 (0.0-1.0) mg/dL Direct Bilirubin 0.1 (0.0-0.5) mg/dL AST 32 (5-37) U/L ALT 27 (0-40) U/L Alkaline Phosphatase 160 H (39-117) U/L Troponin I High Sens 14.1 (<3.5-35.0) ng/L Total Protein 7.8 (6.5-8.0) g/dL Albumin 3.8 (3.5-5.0) g/dL Independent Interpretation I performed an independent interpretation of an: EKG ( Sinus heart rate is 60 AL QRS QTC normal no acute ST segment elevation.) and CT Scan ( CT head was grossly negative for any acute evidence of bleeding) Radiology Impression Discussion of test interpretation with radiology: I have reviewed the radiologist's reading. Radiologist Impression: CT head result was reviewed External Record Review External record reviewed: Inpatient record Chronic Conditions Patient?s care impacted by: Diabetes end-stage renal disease Social Determinants Patient?s care significantly limited by Social Determinants of Health including: Problems related to primary support group Discharge Plan Discharge Clinical Impression: DM type 2 causing ESRD, Headache Patient Disposition: Home, Self-Care Instructions: Acute Headache (ED) Prescriptions: No Action atorvastatin 80 mg tablet 80 mg PO BEDTIME tamsulosin 0.4 mg capsule 0.4 mg PO BEDTIME docusate sodium 100 mg capsule 100 mg PO BEDTIME aspirin 81 mg tablet,chewable 1 tab PO DAILY hydralazine 50 mg tablet 100 mg PO TID albuterol sulfate [Ventolin HFA] 90 mcg/actuation HFA aerosol inhaler 2 puff INHALATION Q4H PRN (Reason: Wheezing) ezetimibe 10 mg tablet 10 mg PO DAILY (DME) FreeStyle Daniel 2 Sensor Kit MISCELLANEOUS Q2W (DME) FreeStyle [place] [address] [place] Misc MISCELLANEOUS QAM trazodone 100 mg tablet 50 mg PO BEDTIME PRN (Reason: insomnia) insulin degludec [Tresiba FlexTouch U-100] 100 unit/mL (3 mL) insulin pen 25 unit subcut DAILY glipizide 10 mg Tablet 10 mg PO DAILY carvedilol 25 mg tablet 25 mg PO DAILY Protocol: Hold for SBP/HR < HOLD for SBP < : 90 HOLD for HR < : 60 cyclobenzaprine 10 mg tablet 5 mg DAILY insulin lispro [Humalog KwikPen Insulin] 100 unit/mL insulin pen 3 - 10 unit subcut TID omeprazole 40 mg capsule,delayed release(DR/EC) 40 mg PO DAILY Qty: 30 0RF sertraline 50 mg tablet 50 mg PO DAILY (DME) blood-glucose meter [Modest IncTouch Ultra2 Meter] Misc See Rx Instructions .ROUTE DIRECTED Qty: 1 Rx Instructions: As directed losartan 50 mg tablet 50 mg PO BID (DME) OneTouch Ultra Test Strip See Rx Instructions .ROUTE .MEDSUPPLY Qty: 10 Rx Instructions: As directed isosorbide mononitrate 120 mg tablet extended release 24 hr 120 mg PO DAILY nifedipine 90 mg tablet extended release 24hr 90 mg PO DAILY Referrals: Marline Richard MD [Primary Care Provider] - 05/27/24 Print Language: Maltese
[2024-05-25 10:09] LABS: MANUAL DIFF FLAG NO
[2024-05-25 10:10] LABS: Basophils Percent Auto 0.5 % (0-2); Eosinophils Absolute Auto 0.2 X10*3/uL (0.0-0.4); Hematocrit 26.4 % (42.0-52.0); Imm Gran Abs Auto 0.04 X10*3/uL (0.00-0.03); Imm Gran Pct Auto 0.5 % (0.0-0.4); Lymphocytes Absolute Auto 1.9 X10*3/uL (1.2-4.9); Lymphocytes Percent Auto 21.9 % (20-40); Mean Corpuscular HGB Conc 34.1 g/dl (31.0-36.0); Mean Corpuscular Hemoglobin 32.3 pg (27.0-33.0); Mean Corpuscular Volume 94.6 fL (80.0-98.0); Mean Platelet Volume 10.1 fL (9.4-12.4); Monocytes Absolute Auto 0.8 X10*3/uL (0.1-1.2); Monocytes Percent Auto 9.8 % (2-11); Neutrophils Absolute Auto 5.6 x10*3/uL (2.0-8.3); Neutrophils Percent Auto 65.3 % (45-73); Platelet Count 203 X10*3/uL (160-400); Red Blood Count 2.79 X10*6/uL (4.60-5.80); Red Cell Distribution Width 16.2 % (11.0-16.0); White Blood Count 8.5 X10*3/uL (4.8-10.8)
--- NOTE | 2024-05-25 10:14 | PC.NURSE ---
This rn spoke with dialysis nurse, states patient was on dialysis for 90 minutes where he began to feel dizzy and have a headache.
[2024-05-25 10:15] LABS: VBG Base Excess 10.4 mmol/L; VBG HCO3 34 mmol/L (22-26); VBG pCO2 42 mmHg; VBG pH 7.51 (7.32-7.43); VBG pO2 96 mmHg
[2024-05-25 10:15] LABS: Venous Blood Gas Refer to POC result
[2024-05-25] MEDS: Metoclopramide HCl 10 MG/2 ML VIAL IVPUSH (10:19)
[2024-05-25] MEDS: diphenhydrAMINE HCL 50 MG/ML VIAL 25 MG IVPUSH (10:20)
[2024-05-25 10:22] VITALS: PULSE 57; RESP 18; O2SAT 98
[2024-05-25 10:31] LABS: Alanine Aminotransferase 27 U/L (0-40); Albumin Level 3.8 g/dL (3.5-5.0); Alkaline Phosphatase 160 U/L (39-117); Anion Gap 15 (12-20); Aspartate Amino Transferase 32 U/L (5-37); Bilirubin Direct 0.1 mg/dL (0.0-0.5); Bilirubin Total 0.5 mg/dL (0.0-1.0); Blood Urea Nitrogen 46 mg/dL (9-16); Calcium 8.9 mg/dL (8.4-10.2); Carbon Dioxide 30 mmol/L (22-29); Chloride 99 mmol/L (96-108); Creatinine Clr Calc Pharmacy 11.7; Estimated Glomerular Filt Rate 10; Glucose Random 164 mg/dL (60-115); Magnesium 1.6 mg/dL (1.6-2.6); Potassium 4.2 mmol/L (3.3-5.1); Sodium 140 mmol/L (135-145); Total Protein 7.8 g/dL (6.5-8.0)
[2024-05-25 10:36] LABS: Troponin-I High Sensitivity 14.1 ng/L (<3.5-35.0)
--- NOTE | 2024-05-25 10:59 | PC.NURSE ---
Received report from Leidy Johnston RN. Per Dr. Cardoza, plan to discharge home. [facility] can receive the rest of his dialysis today. Patient resting comfortably, denies complaints at this time. Care ongoing by this RN.
[2024-05-25 11:04] VITALS: BP 146/31; PULSE 62; RESP 12; TEMP 36.4; O2SAT 97
[2024-05-25 13:06] VITALS: BP 144/70; PULSE 74; RESP 16; TEMP 36.4; O2SAT 97
== END 2024-05-25 13:06 | disposition home or self-care (01) ==
PROVIDERS: Emergency Provider Emergency Medicine Emergency Medical Services; PCP General Practice
DX: R42 Dizziness and giddiness (principal); R51.9 Headache, unspecified; E11.22 Type 2 diabetes mellitus with diabetic chronic kidney disease; R94.31 Abnormal electrocardiogram [ECG] [EKG]; I13.2 Hypertensive heart and chronic kidney disease with heart failure and with stage 5 chronic kidney disease, or end stage renal disease; N18.6 End stage renal disease; Z79.4 Long term (current) use of insulin; Z99.2 Dependence on renal dialysis; Z79.899 Other long term (current) drug therapy
CPT/HCPCS: 36415; 70450; 80048; 80076; 82803; 83735; 84484; 85025; 93005; 96374; 96375; 99284; J1200; J2765

== ENCOUNTER → 2024-05-25 08:57 | Outpatient (BNV) | payer OTHER, SELFPAY | PROVIDERS: Emergency Provider Emergency Medicine Emergency Medical Services; PCP General Practice; Visit Provider Internal Medicine Cardiovascular Disease | DX: R94.31 Abnormal electrocardiogram [ECG] [EKG] (principal); R42 Dizziness and giddiness | CPT/HCPCS: 93010 ==

== ENCOUNTER → 2024-05-25 09:29 | Outpatient (BNV) | payer OTHER, SELFPAY | PROVIDERS: Emergency Provider Emergency Medicine Emergency Medical Services; PCP General Practice; Visit Provider Radiology Diagnostic Radiology | DX: R51.9 Headache, unspecified (principal) | CPT/HCPCS: 70450 ==

== ENCOUNTER 2024-06-11 13:01 | Outpatient (REF) | payer OTHER, SELFPAY ==
--- NOTE | ~2024-06-11 | US_ITS ---
EXAMINATION: US NONINVASIVE ASSESSMENT OF THE RIGHT LOWER EXTREMITY WITH ARTERIAL DUPLEX AND ANKLE BRACHIAL INDICES (ABIS) CLINICAL INFORMATION: Peripheral vascular disease, unspecified. COMPARISON: November 27, 2023. TECHNIQUE: Duplex Doppler techniques with waveform analysis and measurement of velocities in the common femoral, profunda femoris, superficial femoral, popliteal and tibial arteries were performed. In addition, ankle pulse volume recordings, ankle pressure measurements and ankle brachial indices were obtained of the right lower extremity arterial system. The study was performed only at rest. FINDINGS: NONINVASIVE ASSESSMENT OF THE ARTERIES OF RIGHT LOWER EXTREMITIES WITH ABIs: RIGHT LEG: Ankle-brachial index: 0.71 Ankle PVR: Abnormal. LES Reference: 0.9 - 1.4 = normal - no significant arterial disease 0.7 - 0.89 = mild peripheral arterial disease 0.51 - 0.69 = moderate peripheral arterial disease 0.50 = severe peripheral arterial disease RIGHT LOWER EXTREMITY DUPLEX ULTRASOUND: Common femoral artery: 138 cm/s. Monophasic waveform. Spectral broadening. Profunda femoris artery: 493 cm/s. Monophasic waveform. Spectral broadening. Superficial femoral artery (proximal): 118 cm/s. Monophasic waveform. Spectral broadening. Superficial femoral artery (mid): 174 cm/s. Monophasic waveform. Spectral broadening. Superficial femoral artery (distal): 91 cm/s. Monophasic waveform. Spectral broadening. Popliteal artery: 57 cm/s Monophasic waveform. Spectral broadening. Posterior tibial artery: 92 cm/s Monophasic waveform. Spectral broadening. Anterior tibialis artery: 53 cm/s. Monophasic waveform. Spectral broadening. Dorsalis pedis artery: 173 cm/s. Monophasic waveform. Spectral broadening.. ABDOMINAL AORTA AND ILIAC ARTERIES ARTERIAL DOPPLER ANALYSIS: Abdominal aorta peak systolic velocities and diameter as follow: Proximal segment: 91 cm/s and 1.8 cm. Midsegment: 121 cm/s and 1.4 cm. Distal segment: 119 cm/s and 1.3 cm. Right common iliac artery: 137 cm/s and 1 cm in diameter. Right external iliac artery: 194 cm/s. Left common iliac artery: 226 cm/s and 1 cm in diameter. Left external iliac artery: 222 cm/s. US/US arterial duplex LE RT IMPRESSION: Severe inflow disease throughout the interrogated vessels of the right lower extremity. No aneurysm or dissection, abdominal aorta. Electronically signed by: Clifford Bullard MD 06/12/2024 08:39 AM EDT
--- NOTE | ~2024-06-11 | US_ITS ---
EXAMINATION: US NONINVASIVE ASSESSMENT OF THE RIGHT LOWER EXTREMITY WITH ARTERIAL DUPLEX AND ANKLE BRACHIAL INDICES (ABIS) CLINICAL INFORMATION: Peripheral vascular disease, unspecified. COMPARISON: November 27, 2023. TECHNIQUE: Duplex Doppler techniques with waveform analysis and measurement of velocities in the common femoral, profunda femoris, superficial femoral, popliteal and tibial arteries were performed. In addition, ankle pulse volume recordings, ankle pressure measurements and ankle brachial indices were obtained of the right lower extremity arterial system. The study was performed only at rest. FINDINGS: NONINVASIVE ASSESSMENT OF THE ARTERIES OF RIGHT LOWER EXTREMITIES WITH ABIs: RIGHT LEG: Ankle-brachial index: 0.71 Ankle PVR: Abnormal. LES Reference: 0.9 - 1.4 = normal - no significant arterial disease 0.7 - 0.89 = mild peripheral arterial disease 0.51 - 0.69 = moderate peripheral arterial disease 0.50 = severe peripheral arterial disease RIGHT LOWER EXTREMITY DUPLEX ULTRASOUND: Common femoral artery: 138 cm/s. Monophasic waveform. Spectral broadening. Profunda femoris artery: 493 cm/s. Monophasic waveform. Spectral broadening. Superficial femoral artery (proximal): 118 cm/s. Monophasic waveform. Spectral broadening. Superficial femoral artery (mid): 174 cm/s. Monophasic waveform. Spectral broadening. Superficial femoral artery (distal): 91 cm/s. Monophasic waveform. Spectral broadening. Popliteal artery: 57 cm/s Monophasic waveform. Spectral broadening. Posterior tibial artery: 92 cm/s Monophasic waveform. Spectral broadening. Anterior tibialis artery: 53 cm/s. Monophasic waveform. Spectral broadening. Dorsalis pedis artery: 173 cm/s. Monophasic waveform. Spectral broadening.. ABDOMINAL AORTA AND ILIAC ARTERIES ARTERIAL DOPPLER ANALYSIS: Abdominal aorta peak systolic velocities and diameter as follow: Proximal segment: 91 cm/s and 1.8 cm. Midsegment: 121 cm/s and 1.4 cm. Distal segment: 119 cm/s and 1.3 cm. Right common iliac artery: 137 cm/s and 1 cm in diameter. Right external iliac artery: 194 cm/s. Left common iliac artery: 226 cm/s and 1 cm in diameter. Left external iliac artery: 222 cm/s. US/US abdominal aortic aneurysm IMPRESSION: Severe inflow disease throughout the interrogated vessels of the right lower extremity. No aneurysm or dissection, abdominal aorta. Electronically signed by: Clifford Bullard MD 06/12/2024 08:39 AM EDT
--- OUTSIDE RECORDS SUMMARY | 2024-06-11 14:11 | XMS_ITS | Clinical Summary ---
Author Organization [facility]ly [facility] Facility Address [address] [address] Care Team Providers Care Insurance Inspector Name Role Phone Lizy Soria NP Primary Care Provider [phone] Allergies Active Allergy Reactions Criticality Noted [...] Encounters Date Type Department Care Team Description 06/10/2024 Treatment [facility] [address] [phone] Bernardo Christie MD End stage renal disease; Dependence on renal dialysis 05/25/2024 Treatment [facility] [address] [phone] Bernardo Christie MD End stage renal disease; Dependence on renal dialysis 05/18/2024 Treatment [facility] [address] [address] Bernardo Christie MD End stage renal disease; Dependence on renal dialysis 05/13/2024 Treatment [facility] [address] [address] Bernardo Christie MD End stage renal disease; Dependence on renal dialysis 05/11/2024 Treatment [facility] [address] [address] Bernardo Christie MD End stage renal disease; Dependence on renal dialysis 04/29/2024 Treatment [facility] [address] [phone] Bernardo Araiza MD 04/27/2024 Treatment [facility] [address] [address] Bernardo Araiza MD 04/20/2024 Treatment [facility] [address] [address] Bernardo Christie MD 04/15/2024 Orders Only [facility] [address] [address] Bernardo Christie MD 04/13/2024 Treatment [facility] [address] [address] Bernardo Christie MD 04/06/2024 Treatment [facility] [address] [address] Bernardo Chrisite MD 03/30/2024 Treatment [facility] [address] [address] Bernardo Christie MD 03/23/2024 Treatment [facility] [address] [address] Bernardo Christie MD 03/16/2024 Treatment [facility]. [address] [place] [phone] Bernardo Christie MD from Last 3 Months [...] Exam 04/11/2020 Diabetes: Visual Foot Exam 04/11/2020 Diabetes: Hemoglobin A1C 06/16/2024 025, 02/10/2024, 08/19/2023, Additional history exists Influenza Vaccine (Season Ended) 2024 12/19/2021, 01/09/2021, 12/25/2019, Additional history exists Pneumococcal Vaccine: 65+ Years Completed 12/19/2021, 08/04/2012, 02/15/2005 Procedures Procedure Name Priority Date/Time Associated Diagnosis Comments HEMOGLOBIN Routine 06/03/2024 3:00 AM EDT HEMOGLOBIN AND HEMATOCRIT, BLOOD Routine 05/27/2024 3:00 AM EDT HEMOGLOBIN Routine 05/20/2024 3:00 AM EDT LIH () Routine 05/18/2024 3:00 AM EDT KT/V NATURAL LOG, URR () Routine 05/18/2024 3:00 AM EDT TRANSFERRIN SATURATION Routine 3:00 AM EST PROTEIN, [...] URR (HC) Routine 03/18/2024 3:00 AM EST from Last 3 Months Results * (ABNORMAL) Hemoglobin (06/03/2024 3:00 AM EDT) Only the most recent of6 resultswithin the time period is included. Hgb 9.4(L) 13.7 - 17.5 g/dL [facility] Hemoglobin x 3 28.2(L) 41.1 - 52.5 g/dL [facility] 06/03/2024 3:00 AM EDT 06/04/2024 12:41 PM EDT us Bernardo Christie MD LAB BLOOD ORDERABLES Final Resul t Performing Organization Address City/[facility] Co de Phone Number [facility] [address] [place] [address] * (ABNORMAL) Hemoglobin and hematocrit (05/27/2024 3:00 AM EDT) Only the most recent of3 resultswithin the time period is included. Hgb 8.3(L) 13.7 - 17.5 g/dL [facility] Hematocrit 25.5(L) 40.1 - 51.0 % [facility] Hemoglobin x 3 24.9(L) 41.1 - 52.5 g/dL [facility] 05/27/2024 3:00 AM EDT 05/28/2024 1:17 PM EDT us Bernardo Christie MD LAB BLOOD ORDERABLES Final Resul t [facility] [address] [place] [address] * LIH (05/18/2024 3:00 AM EDT) Only the most recent of6 resultswithin the time period is included. Pathologist [facility] Lipemia Normal Normal [facility] Icterus Normal Normal [facility] Hemolysis Normal Normal [facility] 05/18/2024 3:00 AM EDT 05/19/2024 2:29 PM EDT us Bernardo Christie MD LAB [id number] ICITED RESULTS Final Result Performing Organization Address [facility] de Phone Number [facility] [address] [place] [address] * (ABNORMAL) Kt/V Natural Log, URR (05/18/2024 3:00 AM EDT) Only the most recent of5 resultswithin the time period is included. [facility] Treatment Time 218 min [facility] Pre-Weight, lb 85.4 kg [facility] Post-Weight, lb 82.4 kg [facility] Ultrafiltration Rate 10 <=13 mL/kg/hr [facility] Comment: Recommend achieving Ultrafiltration Rate (UFR) <=10 mL/kg/hr References: Nora REYES et al. Kidney Int. 2010; 79(2):250-257 BUN Post Dialysis 23 7 - 25 mg/dL [facility] BUN 76(H) 7 - 25 mg/dL [facility] UREA REDUCTION RATIO (%) 70 >=65 % [facility] Kt/V Natural Log 1.40 >=1.2 [facility] 05/18/2024 3:00 AM EDT 05/19/2024 12:15 PM EDT us Bernardo Christie MD LAB [id number] ICITED RESULTS Final Result Performing Organization Address City/[facility] Co de Phone Number [facility] [address] [place] [address] * (ABNORMAL) Calcium Phosphorus Product, Adjusted (05/13/2024 [...] PM EST us Bernardo Christie MD LAB [id number] ICITED RESULTS Final Result Performing Organization Address [facility] de Phone Number [facility] [address] [place] [address] * (ABNORMAL) TSAT (05/13/2024 3:00 AM EST) Only the most recent of3 resultswithin the time period is included. Pathologist [facility] Iron 182(H) 65 - 175 ug/dL [facility] Transferrin 142(L) 215 - 365 mg/dL [facility] TIBC 199(L) 211 - 406 ug/dL [facility] Iron Saturation (TSat) 92(H) 22 - 52 % [facility] 05/13/2024 3:00 AM EST 05/14/2024 1:01 PM EST us Bernardo Christie MD LAB BLOOD ORDERABLES Final Resul t Performing Organization Address [facility] Co de Phone Number [facility] [address] [place] [address] * (ABNORMAL) CBC and Differential (05/13/2024 3:00 AM EST) Only the most recent of3 resultswithin the time period is included. Pathologist [facility] DIFFERENTIAL MANUAL, 2 Not Indicated [facility] White [...] 3:00 AM EST 05/14/2024 1:05 PM EST us Bernardo Christie MD LAB BLOOD ORDERABLES Final Resul t Performing Organization Address City/[facility] Co de Phone Number [facility] [address] [place] [address] * ALT (05/13/2024 3:00 AM EST) Only the most recent of3 resultswithin the time period is included. ALT (SGPT) 40 10 - 49 U/L [facility] 05/13/2024 3:00 AM EST 05/14/2024 1:01 PM EST us Bernardo Christie MD LAB BLOOD ORDERABLES Final Resul t Performing Organization Address City/[facility] Co de Phone Number [facility] [address] [place] [address] * (ABNORMAL) AST (05/13/2024 3:00 AM EST) Only the most recent of3 resultswithin the time period is included. AST (SGOT) 39(H) <34 U/L [facility] 05/13/2024 3:00 AM EST 05/14/2024 1:01 PM EST us Bernardo Christie MD LAB BLOOD ORDERABLES Final Resul t Performing Organization Address [facility] de Phone Number [facility] [address] [place] [address] * Protein, total (05/13/2024 3:00 AM EST) Only the most recent of3 resultswithin the time period is included. Total Protein 6.7 6.4 - 8.9 g/dL [facility] 05/13/2024 3:00 AM EST 05/14/2024 1:01 PM EST us Bernardo Christie MD LAB BLOOD ORDERABLES Final Resul t Performing Organization Address [facility] Phone Number [facility] [address] [place] [address] * (ABNORMAL) Alkaline phosphatase (05/13/2024 3:00 AM EST) Only the most recent of3 resultswithin the time period is included. Alkaline Phosphatase 191(H) 46 - 116 U/L [facility] 05/13/2024 3:00 AM EST 05/14/2024 1:01 PM EST us Bernardo Christie MD LAB BLOOD ORDERABLES Final Resul t Performing Organization Address [facility] de Phone Number [facility] [address] [place] [address] * (ABNORMAL) Magnesium (05/13/2024 3:00 AM EST) Only the most recent of3 resultswithin the time period is included. Magnesium 1.5(L) 1.9 - 2.7 mg/dL [facility] 05/13/2024 3:00 AM EST 05/14/2024 1:01 PM EST us Bernardo Christie MD LAB BLOOD ORDERABLES Final Resul t Performing Organization Address [facility]/State/ZIP Co de Phone Number [facility] [address] [place] [address] * (ABNORMAL) Lactate dehydrogenase (05/13/2024 3:00 AM EST) Only the most recent of3 resultswithin the time period is included. LDH 330(H) 120 - 246 U/L [facility] 05/13/2024 3:00 AM EST 05/14/2024 1:01 PM EST us Bernardo Christie MD LAB BLOOD ORDERABLES Final Resul t Performing Organization Address [facility] de Phone Number [facility] [address] [place] [address] * (ABNORMAL) Glucose, random (05/13/2024 3:00 AM EST) Only the most recent of3 resultswithin the time period is included. Glucose 179(H) 74 - 109 mg/dL [facility] 05/13/2024 3:00 AM EST 05/14/2024 1:01 PM EST us Bernardo Christie MD LAB BLOOD ORDERABLES Final Resul t Performing Organization Address [facility] de Phone Number [facility] [address] [place] [address] * (ABNORMAL) Ferritin (05/13/2024 3:00 AM EST) Only the most recent of3 resultswithin the time period is included. Ferritin 1,460(H) 22 - 322 ng/mL [facility] 05/13/2024 3:00 AM EST 05/14/2024 1:01 PM EST us Bernardo Christie MD LAB BLOOD ORDERABLES Final Resul t Performing Organization Address [facility] Co de Phone Number [facility] [address] [place] [address] * (ABNORMAL) Creatinine, serum (05/13/2024 3:00 AM EST) Only the most recent of3 resultswithin the time period is included. Creatinine 7.18(H) 0.70 - 1.30 mg/dL [facility] 05/13/2024 3:00 AM EST 05/14/2024 1:01 PM EST us Bernardo Christie MD LAB BLOOD ORDERABLES Final Resul t Performing Organization Address City/[facility] Co de Phone Number [facility] [address] [place] [address] * (ABNORMAL) Bilirubin, total (05/13/2024 3:00 AM EST) Only the most recent of3 resultswithin the time period is included. Total Bilirubin 0.2(L) 0.3 - 1.2 mg/dL [facility] 05/13/2024 3:00 AM EST 05/14/2024 1:01 PM EST us Bernardo Christie MD LAB BLOOD ORDERABLES Final Resul t Performing Organization Address [facility] de Phone Number [facility] [address] [place] [address] * (ABNORMAL) Electrolyte panel (05/13/2024 3:00 AM [...] ORDERABLES Final Resul t Performing Organization Address [facility] Co de Phone Number [facility] [address] [place] [address] * (ABNORMAL) Phosphorus (05/01/2024 3:00 AM EST) Phosphorus, Serum 5.8(H) 2.5 - 5.0 mg/dL [facility] 05/01/2024 3:00 AM EST 05/02/2024 1:34 PM EST us Bernardo Christie MD LAB BLOOD ORDERABLES Final Resul t Performing Organization Address [facility] de Phone Number [facility] [address] [place] [address] * Confirmation Test HCV (03/18/2024 3:00 AM EST) Pathologist [facility] Hep C Ab Confirmation Not needed [facility] 03/18/2024 3:00 AM EST 03/19/2024 6:04 PM EST us Bernardo Christie MD LAB BLOOD ORDERABLES Final Resul t Performing Organization Address [facility] de Phone Number [facility] [address] [place] [address] * HEPATITIS C ABS W/REFLEX RNA DETECTR (03/18/2024 3:00 AM EST) Pathologist [facility] Hep C Virus Ab Non-Reacti ve Non-Reacti ve [facility] 03/18/2024 3:00 AM EST 03/19/2024 5:56 PM EST us Bernardo Christie MD LAB [id number] ICITED RESULTS Final Result Performing Organization Address [facility] de Phone Number [facility] [address] [place] [address] * Aluminum level (03/18/2024 3:00 AM EST) Pathologist [facility] Aluminum 3 1 - 20 ug/L [facility] 03/18/2024 3:00 AM EST 03/19/2024 5:39 PM EST us Bernardo Christie MD LAB BLOOD ORDERABLES Final Resul t Performing Organization Address [facility] de Phone Number [facility] [address] [place] [address] * Hepatitis B Surface Antibody (03/18/2024 3:00 AM EST) Hep B Surface Antibody 362 mIU/mL [facility] Comment: Interpretation: <10: No Immunity >=10: Probable Immunity 03/18/2024 3:00 AM EST 03/19/2024 5:56 PM EST us Bernardo Christie MD LAB BLOOD ORDERABLES Final Resul t Performing Organization Address [facility] de Phone Number [facility] [address] [place] [address] * Uric Acid (03/18/2024 3:00 AM EST) Uric Acid 6.0 4.4 - 7.6 mg/dL [facility] 03/18/2024 3:00 AM EST 03/19/2024 5:56 PM EST us Bernardo Christie MD LAB BLOOD ORDERABLES Final Resul t Performing Organization Address [facility] de Phone Number [facility] [address] [place] [address] * PTH, Intact (03/18/2024 3:00 AM EST) PTH, Intact 346 160 - 721 pg/mL [facility] Comment: Suggested (KDIGO) ESRD maintenance range is two to nine times the upper normal limit (80.1 pg/mL) for the laboratory. 03/18/2024 3:00 AM EST 03/19/2024 5:56 PM EST us Bernardo Christie MD LAB BLOOD ORDERABLES Final Resul t Performing Organization Address [facility] de Phone Number [facility] [address] [place] [address] * (ABNORMAL) Hemoglobin A1c (03/18/2024 3:00 AM [...] Final Resul t [facility] [address] [place] [address] * (ABNORMAL) Lipid panel (03/18/2024 3:00 AM [...] Final Resul t [facility] [address] [place] [address] from Last 3 Months Insurance [facility] MCR ([id number]) JERMAINE JARAMILLO [id number] [facility] MCR ([id number]) [address] [place] [address] Care Teams Insurance Inspector Relationship Specialty Start Date End Date Lizy Soria NP [address] [place] [address] PCP - General Nurse Practitioner 12/17/23
--- OUTSIDE RECORDS SUMMARY | 2024-06-11 14:11 | XMS_ITS | Data Portability ---
Author Organization [employer] [employer] Address [address] [place] [address] Care Team Providers Care Fundraiser Name Role Phone [facility] OTHER HIM [facility] OTHER Assessment Encounter Date Assessment Date Assessment LastModified by Organization Details LastModified Time 03/22/2022 03/22/2022 I have reviewed and agree with the Assessment and Plan as documented by the Cherry Sorter. I provided real-time medical direction via phone [...] Assessment and Plan as documented by the Cherry Sorter. Patient given the opportunity to ask questions. [...] but is anuric at baseline now. Per coach mechanic on the scene, vital signs show that he is orthostatic. He is not tachycardic at baseline. His mentation is within normal limits. Impression implant: Likely hypotension related to fluid shifts after change in hemodialysis schedule. Asked him to follow-up tomorrow with his bosom presser at his hemodialysis center. Encourage p.o. intake. [...] Name and Address Organization Details Recorded Time 90552 metformin medicatio n Not available Not available Not available 02/03/2024 6809 RxNorm Not Available [facility] - production 4 13:24:19 89946 mirtazapi ne medicatio n Not available Not available Not available 02/03/2024 24060 RxNorm Not Available [facility] - production 13:24:19 [...] EVERY EVENING 30 MINUTOS [facility] active Not Available Not Available No t [...] Not Available Not Available Not Available [employer] [place] Lite kit USE TO TEST BLOOD SUGAR [...] /min 124 mm[Hg] 55 mm[Hg] Not Available [employer] [facility] - production 3 19:28:13 Date Recorded Oxygen saturation Oxygen saturation in Arterial blood by Pulse oximetry Body temperature Respiratory rate Heart rate Systolic blood pressure Diastolic blood pressure Provider Name and Address Organization Details Last Updated DateTime 4 99 % 99 % 99.3 [degF] 18 /min 58 /min 100 mm[Hg] 55 mm[Hg] Not Available [employer] [facility] - production 4 15:13:38 Date Recorded Respiratory rate Body temperature Oxygen saturation Oxygen saturation in Arterial blood by Pulse oximetry Heart rate Systolic blood pressure Diastolic blood pressure Provider Name and Address Organization Details Last Updated DateTime 3 18 /min 98.3 [degF] 98 % 98 % 86 /min 148 mm[Hg] 88 mm[Hg] Not Available [facility] [facility] 3 11:12:30 Social History None recorded. Functional Status None recorded. Mental Status None recorded. Family History Nothing Reported. Medical History No medical history recorded. Past Encounters Encounter ID Performer Location Encounter Start Date Encounter Closed Date Diagnosis/Indication Diagnosis SNOMED-CT Code Diagnosis ICD10 Code Diagnosis Note [id number] Ned López MD [facility] [address] [place] [phone] 03/22/2022 11:12:28 03/27/2022 11:25:26 Foot pain 73136435 M79.673 [id number] Michael Thacker MD [facility] [address] [place] [phone] 02/19/2023 19:28:08 02/20/2023 13:35:32 Viral upper respiratory tract infection 445854122 J06.9 [id number] Marjan Dale MD [facility] [address] [place] [phone] 02/03/2024 15:13:32 02/03/2024 21:25:25 End stage renal failure on dialysis 457781732 N18.6 Health Concerns Section Related Observation LastModified by Organization Detai ls LastModified Time None Recorded Concern Status LastModified by Organization Details LastModified Time None Recorded Advance Directives Directive None Recorded Payers Encounter Date Sequence Insurance Name Policy Number Policy Lazo Covered Member ID Lazo Member ID Guarantor Name 03/22/2022 1 [facility] - DOS PRIOR TO 2022 - DUAL ELIGIBLE (MEDICARE REPLACEMENT/ADV ANTAGE - HMO) Kingsley Johnson [id number] Kingsley Johnson 02/19/2023 1 [facility] - DOS ON OR AFTER 2022 - DUAL ELIGIBLE - FDC OPTIONS AND ONE CARE (MEDICARE REPLACEMENT/ADV ANTAGE - HMO) Kingsley Johnson [id number] Kingsley Johnson 02/03/2024 1 [facility] - DOS ON OR AFTER 2022 - DUAL ELIGIBLE - [employer]DC OPTIONS AND ONE CARE (MEDICARE REPLACEMENT/ADV ANTAGE - HMO) Kingsley Johnson [id number] Kingsley Johnson Notes Date Note Type Note [...] ................... ................... ................... ................... ................... ................... ........ Cherry Sorter Note: Pt states he has part of [...] surgeon but he would not give more. [facility] consulted. Pt given 15mg IM toradol. Red flags discussed ................... ................... ................... ................... ................... ................... ................... ........ Disposition: Fulfilled Ned López MD [address] [facility],[address], [place], [phone], [email or web address] 03/27/2022 10:09:04 02/19/2023 text/html HPI: Hx CKD [...] CHUYITA---- 02/18 5:08p call to member via Environmental Attorney [id number], as we can not see member this evening due to capacity, no answer and VM left to call back, will place on the schedule for tomorrow 02/19- AAdithya ................... ................... ................... ................... ................... ................... ................... ........ Cherry Sorter Note From Rojelio Rendon: Pt reports 5 days of URI symptoms of dry cough not feeling well and nasal congestion. Denies any fever chills denies any N/VD denies any sob denies any pain. Reports that he has been feeling better days and symptoms are improving. On scene vs taken and Covid flu done [facility] was called and cleared. ................... ................... ................... ................... ................... ................... ................... ........ Disposition: Fulfilled Michael Thacker MD [address] [place] [address],[address], [place], [phone], [email or web address] 02/19/2023 23:36:12 02/03/2024 text/html HPI: Patient on [...] ................... ................... ................... ................... ................... ................... ........ Cherry Sorter Note From Serge Cordova: Dispatched to above [...] has been taking his medications as directed. [facility] consulted. Pt informed of re flags and when to seek further medical attention. Pt found seated in wheel chair speaking in full clear sentences with no signs of distress. AO and GCS-15. PERRL. Skin P/W/D. Airway open and lung sounds clear in all [place]. ABD soft non tender. Rest exam unremarkable. ................... ................... ................... ................... ................... ................... ................... ........ [facility] Consulted: Marjan Dale ................... ................... ................... ................... ................... ................... ................... ........ Disposition: Hilario Dale MD [address] [facility],[address], [place], [address], [employer] 02/03/2024 20:08:16
--- OUTSIDE RECORDS SUMMARY | 2024-06-11 14:12 | XMS_ITS | Encounter Summary ---
Author Organization [facility] Address [address] [place] [phone] Phone Care Team Providers Care Reinforcing Rod Layer Name Role Phone Lizy Soria SHELLS INSPECTOR Primary Care Provider [phone] Encounter Details Date Type Department Care Team ([facility] st Contact Info) Description 06/10/2024 Treatment [facility] [address] [address] Allen Koroma MD [address] [address] End stage renal disease; Dependence [...] Dialysis Note - Allen Koroma MD - 06/10/2024 12:00 AM EDT Patient: Kingsley Johnson : 1955 Note Type: Dialysis Rounds-Comp Service Date: 06/10/2024 This patient was personally seen for a complete visit as part of routine monthly dialysis care for end stage renal disease. Attending Associate Financial Analyst: ALLEN KOROMA MD Dialysis Location: [facility] Schedule: Shift: 1 OVERVIEW Patient is stable. HOME MEDICATIONS Medications reviewed. Current [facility] Outpatient Medications amLODIPine (NORVASC) 10 MG [...] 2 (two) times a day Start Date: [facility] Inject 100 Units under the skin Start Date: Current [facility] Epic Allergies Allergen: MIRTAZAPINE Reaction: Other (see comments) BP AND FLUID ASSESSMENT Low blood pressure. Fluid status acceptable. ADEQUACY ASSESSMENT Kt/V, Natural Log 1.40 (05/18/24) 1.12 (05/13/24) 1.37 (04/17/24) UREA REDUCTION RATIO (%) 70 (05/18/24) 60 (05/13/24) 70 (04/17/24) % Urea Reduction 75 (09/13/23) 69 (09/09/23) 72 (08/21/23) BUN 76 (05/18/24) 68 (05/13/24) 69 (04/17/24) BUN Post Dialysis 23 (05/18/24) 27 (05/13/24) 21 (04/17/24) Creatinine 7.18 (05/13/24) 6.88 (04/15/24) 6.64 (03/18/24) Bicarbonate (CO2) 23 (05/13/24) 26 (04/15/24) 26 (03/18/24) Sodium 140 (05/13/24) 138 (04/15/24) 137 (03/18/24) Target met. Prescription compliance acceptable. Continue with greater than 3x more frequent dialysis prescription. ACCESS ASSESSMENT Vascular access examined. ANEMIA ASSESSMENT Hgb 9.4 (06/03/24) 8.3 (05/27/24) 8.4 (05/20/24) Hemoglobin 11.3 (09/09/23) 11.0 (09/02/23) 11.7 (08/26/23) Iron Saturation (TSat) 92 (05/13/24) 78 (04/15/24) 19 (03/18/24) Ferritin 1,460 (05/13/24) 1,450 (04/15/24) 756 (03/18/24) Iron 182 (05/13/24) 144 (04/15/24) 40 (03/18/24) TIBC 199 (05/13/24) 185 (04/15/24) 211 (03/18/24) MCV 94.9 (05/13/24) 94.3 (04/15/24) 99.4 (03/18/24) Vitamin B-12 624 (08/19/23) Platelets 175 (05/13/24) 164 (04/15/24) 202 (03/18/24) PHAN adjusted per protocol. Iron adjusted per protocol. BMM ASSESSMENT Calcium, Adjusted Total 8.6 05/13/24 [...] 171 03/18/24 Aluminum 3 03/18/24 <5 08/19/23 Bone and mineral metabolism parameters reviewed. NUTRITION ASSESSMENT Albumin 3.7 05/13/24 3.8 04/15/24 3.9 03/18/24 Potassium 5.2 05/13/24 4.4 04/15/24 4.6 03/18/24 Hemoglobin A1C 7.5 03/18/24 6.4 08/19/23 Albumin not at goal. PHYSICAL EXAM Exam not performed. ADDITIONAL LABS White Blood Cells 8.2 (05/13/24) 8.2 (04/15/24) 8.7 (03/18/24) WBC 7.28 (09/09/23) 7.98 (08/19/23) Cholesterol 86 (03/18/24) HDL 28 (03/18/24) LDL-Calc 28 (03/18/24) Triglycerides 150 (03/18/24) Hep B Surface Antibody 362 (03/18/24) 336 (02/19/24) Hepatitis B Surface Ab 547 (08/19/23) Uric Acid 6.0 (03/18/24) Signed by: ALLEN KOROMA MD on 06/10/2024 at 08:00:18 AM documented in this encounter Plan of Treatment Not on file documented as of this encounter Visit Diagnoses Diagnosis End stage renal disease Dependence on renal dialysis documented in this encounter Care Teams Reinforcing Rod Layer Relationship Specialty Start Date End Date Lizy Soria NP [address] [place] [id number] PCP - General Nurse Practitioner 12/17/23 documented as of this encounter
--- OUTSIDE RECORDS SUMMARY | 2024-06-11 14:12 | XMS_ITS | Clinical Summary ---
Author Organization [facility] Address [address] [place] [phone] Phone Care Team Providers Care Sign Language Interpreter Name Role Phone Marline Richard MD Primary Care Provider [phone] Allergies No known active allergies Medications No [...] , 12/19/2021, 01/09/2021, Additional history exists Diabetes: Annual Urine Albumin-Creatinine Ratio (uACR) 01/22/2024 Depression Screening 08/01/2024 08/02/2023 Diabetes: Blood Sugar Control Test (HGBA1C) 09/15/2024 03/18/2024, 03/18/2024, 02/10/2024, Additional history exists Diabetes: Annual GFR (Glomerular Filtration Rate) 01/21/2025 01/22/2024, 10/22/2023 Hypertension/CHF/CAD Annual BMP Blood Test 01/21/2025 01/22/2024, 10/22/2023 Cholesterol Screening (Lipid Panel) 03/18/2029 03/18/2024, 07/15/2023 DTaP,Tdap,and Td Vaccines (3 - Td or Tdap) 03/14/2033 03/14/2023, 06/10/2012 Hepatitis B Vaccines Completed 12/14/2014, 05/12/2014, 02/15/2014 Zoster Vaccines Completed 04/21/2019, 12/09, 03/18/2015 Pneumococcal Vaccine: 50+ Years Completed 12/19/2021, 08/04/2012, 02/15/2005 RSV Immunization Adult Patients Completed 02/25/2023 COVID-19 Vaccine Completed 02/10/2024, 06/2023, [...] mmol/L LAB CHEMISTRY METHOD 01/22/2024 11:37 AM [facility] Potassium 4.2 3.5 - 5.5 mmol/L LAB CHEMISTRY METHOD 01/22/2024 11:37 AM EST [facility] Comment:Hemolysis present Chloride 101 96 - 110 mmol/L LAB CHEMISTRY METHOD 01/22/2024 11:37 AM EST [facility] CO2 31 21 - 32 mmol/L LAB CHEMISTRY METHOD 01/22/2024 11:37 AM [facility] Anion Gap 5 3 - 11 LAB CHEMISTRY METHOD 01/22/2024 11:37 AM [facility] Glucose 121(H) 70 - 100 mg/dL LAB CHEMISTRY METHOD 01/22/2024 11:37 AM [facility] BUN 24 5 - 25 mg/dL LAB CHEMISTRY METHOD 01/22/2024 11:37 AM [facility] Creatinine 3.26(H) 0.70 - 1.30 mg/dL LAB CHEMISTRY METHOD 01/22/2024 11:37 AM [facility] eGFR 20(L) >=60 mL/min/1. 73m2 LAB CHEMISTRY METHOD 01/22/2024 11:37 AM [facility] Comment:Calculation based on the??Chronic Kidney Disease Epidemiology Collaboration (CKD-EPI) equation refit??without adjustment for race. BUN/Creatinine Ratio 7.4 LAB CHEMISTRY METHOD 01/22/2024 11:37 AM [facility] Calcium 9.1 8.5 - 10.5 mg/dL LAB CHEMISTRY METHOD 01/22/2024 11:37 AM [facility] AST (SGOT) 37 10 - 42 unit/L LAB CHEMISTRY METHOD 01/22/2024 11:37 AM [facility] Comment:Hemolysis present ALT (SGPT) 31 10 - 60 unit/L LAB CHEMISTRY METHOD 01/22/2024 11:37 AM [facility] Alkaline Phosphatase 147(H) 42 - 121 unit/L LAB CHEMISTRY METHOD 01/22/2024 11:37 AM [facility] Total Protein 6.8 6.0 - 8.0 g/dL LAB CHEMISTRY METHOD 01/22/2024 11:37 AM [facility] Albumin 3.2 3.2 - 5.0 g/dL LAB CHEMISTRY METHOD 01/22/2024 11:37 AM [facility] Total Bilirubin 0.6 0.0 - 1.4 mg/dL LAB CHEMISTRY METHOD 01/22/2024 11:37 AM [facility] Blood Venous blood specimen / Unknown Venipuncture / Unknown 01/22/2024 10:24 AM EST 01/22/2024 10:59 AM EST us Kelsey DEAN LAB BLOOD ORDERABLES Final Re sult [facility] ([facility]) [facility] [address] [place] [address], [place] [phone] from Last 3 Months or Most Recently Relevant to Health Maintenance Insurance [facility] MEDICARE Member Subscriber Plan / Payer (Ef fective 2022-Present) Name:Kingsley Rivero Relation to Subscriber:Self Name:Kingsley Rivero Payer ID:[id number] Group ID:[id number] Type:Not on file Address: [place] [address] [address] [phone] Care Teams Sign Language Interpreter Relationship Specialty Start Date End Date Marline Richard MD [address] [place] [address] PCP - General Kai [place] 01/22/24
== END 2024-06-11 13:02 | disposition home or self-care (01) ==
LOC: HO.US 13:01
PROVIDERS: Visit Provider Surgery Vascular Surgery
DX: I73.9 Peripheral vascular disease, unspecified (principal)
CPT/HCPCS: 76706; 93923; 93926

== ENCOUNTER → 2024-06-11 13:04 | Outpatient (BNV) | payer OTHER, SELFPAY | PROVIDERS: Visit Provider Radiology Diagnostic Radiology | DX: I73.9 Peripheral vascular disease, unspecified (principal) | CPT/HCPCS: 76706; 93923; 93926 ==

== ENCOUNTER 2024-06-16 12:53 | Outpatient (AMB) | payer OTHER, SELFPAY ==
--- NOTE | 2024-06-16 13:20 | A.OFFVIS_ITS ---
Intake Visit Reasons: 6m follow up Intake Note: Patient is present for 6m f/u Urology Medication:tamsulosin Antibiotic Allergy:none Blood Thinner:aspirin Salesperson Children'S Shoes Required: No Allergies metformin Adverse Reaction (Verified 06/16/24 13:22) Unknown HPI Comments Details: Kingsley is a pleasant male. He is a patient of Dr. Mccullough. He is seen for the following urologic conditions - erectile dysfunction With son who is translating Does have issues with erections Discussed again going back on injection He is willing to pay for them Erectile dysfunction in setting of diabetes Progressive Insulin-dependent diabetic since 2021 Diabetic since 1999 - microvascular complications with nonhealing also lower extremity, diabetic foot in infection Former cigarette smoker Baseline labs - 12/01 - P 0.8 Good response to TriMix with 45 units in 2022 [facility] Medical History Uncontrolled hypertension CAD (coronary artery disease) Fluid overload Anemia in ESRD (end-stage renal disease) Anemia PAD (peripheral artery disease) Acute kidney injury superimposed on CKD Hypertension Type 2 diabetes mellitus ESRD (end stage renal disease) CKD (chronic kidney disease) stage 3, GFR 30-59 ml/min Renal artery stenosis Anemia Erectile dysfunction (HFpEF) heart failure with preserved ejection fraction Osteomyelitis CKD stage 3 due to type 2 diabetes mellitus LIVE (iron deficiency anemia) Hyperlipidemia associated with type 2 diabetes mellitus Kidney disease High cholesterol HTN (hypertension) Diabetes Surgical History Status post transmetatarsal amputation of left foot Hx of amputation History of amputation of right forefoot H/O shoulder surgery Family History Other No family history of coronary artery disease Social History Household Members: None Housing: Apartment Do you presently have visiting nurse or other home services: Yes (STRIPPER SHOVEL OPERATOR ONLY) Alcohol intake: former Comment: previously medicated with IV morphine Patient Tobacco Use Status: Never used Tobacco Tobacco use type: Cigarette Second Hand Smoke Exposure: No Substance Use Type: Crack/Cocaine Advance Directives Date on File: 02/02/22 service: No Current occupational status: retired Review of Systems Const Denies chills and Denies fever(s) Card Reports no additional complaints and Denies syncope Resp Denies cough GI Denies abdominal pain and Denies heartburn Reports as per HPI and Denies change in libido Neuro Denies syncope Psych Denies change in libido Endo Denies change in libido Physical Exam Const General: cooperative, healthy appearing, comfortable and no acute distress Orientation/consciousness: patient oriented x3 HEENT Face and sinus: Yes normal facial exam Mouth: moist mucous membranes Neck Neck: Yes normal visual inspection, Yes full ROM and Yes trachea midline Chest Chest palpation & inspection: normal inspection of the chest Resp Effort & Inspection: normal respiratory effort, able to speak in complete sentences and no respiratory distress GI Inspection: Yes normal to inspection Back/Spine/Pelvis Cervical Spine: normal cervical lordosis Thoracic/Lumbar Spine: thoracic and lumbar spine normal to inspection Skin General skin exam: no rashes or lesions noted Neuro General: patient oriented x3, gait normal, tone normal and moves all extremities Extrem General: Yes normal to inspection and Yes capillary refill normal Assessment & Plan Assessment & Plan (1) Erectile dysfunction associated with type 2 diabetes mellitus: Code(s): E11.69 - Type 2 diabetes mellitus with other specified complication; N52.1 - Erectile dysfunction due to diseases classified elsewhere Category: Medical Plan Six-month follow-up Patient Instructions: This note is constructed using voice recognition software. While every effort has been made to ensure accuracy deliverer merchandise errors may have been included. Imaging studies, laboratory and physical exam results were discussed and review ed in detail. No major barriers to patient understanding were identified. An opportunity to ask questions regarding the treatment plan was provided. All questions were answered. The patient expressed understanding and agreement with the above treatment plan. The patient is aware they should contact our office by phone for worsening of their current condition or the appearance of new urologic symptoms. Compliance is encouraged with any medications and followup testing that is ordered. It is a privilege to participate in the urologic care of your patient. If you have any questions or concerns regarding treatment for the above conditions, or other urologic issues, please do not hesitate to contact me. The office telephone contact is [phone]. Sincerely, Dr Edil Montano MD, [facility] [place] - Urology Compassionate Specialist Care for the Genitourinary System Coding Level of Care Code Est Pt Level 4 (14477) Diagnoses Erectile dysfunction associated with type 2 diabetes mellitus E11.69; N52.1
--- OUTSIDE RECORDS SUMMARY | 2024-06-16 15:33 | XMS_ITS | Encounter Summary ---
Author Organization [employer] Address [address] [facility] [address] [place] [address] Care Team Providers Care Planer Feeder Name Role Phone Marline Richard MD Primary Care Provider [phone] Encounter Details Date Type Department Care Team (Late Contact Info) Description 10/10/2022 Orders Only [facility] MEDICINE [address] [place] [address] Marline Richard MD [address] [place] [address] Essential hypertension (Primary Dx) Social History Tobacco [...] 1:00 PM EDT Office Visit [facility] OPTOMETRY [address] [place] [address] Leslie Aguilar, OD [address] [place] [address] documented as of this encounter Visit Diagnoses Diagnosis Essential hypertension- Primary Unspecified essential hypertension documented in this encounter Additional Health Concerns Assessment Noted Time PHQ-9 Depression Total Score: 5 04/20/19 23 1:08 PM EST documented as of this encounter Care Teams Planer Feeder Relationship Specialty Start Date End Date Marline Richard MD [address] [place] [address] PCP - General Family Medicine 04/21/20 documented as of this encounter
--- OUTSIDE RECORDS SUMMARY | 2024-06-16 15:33 | XMS_ITS | Encounter Summary ---
Author Organization [facility] Address [address] [place] [phone] Phone Care Team Providers Care Dredgemaster Name Role Phone Lizy Soria NP Primary Care Provider [phone] Encounter Details Date Type Department Care Team ([facility] st Contact Info) Description 06/15/2024 Treatment [facility] [address] [address] Allen Koroma MD [address] [address] End stage renal disease; Dependence [...] Dialysis Note - Allen Koroma MD - 06/15/2024 12:00 AM EDT BASIC NOTE Patient: Kingsley Johnson : 1955 Note Author: ALLEN KOROMA MD Service Date: 06/15/2024 This patient was personally seen for a basic visit as part of routine monthly dialysis care for end stage renal disease. Attending Coin Machine Supervisor: ALLEN KOROMA MD Dialysis Location: [facility] Schedule: Shift: HOME MEDICATIONS [facility] amLODIPine (NORVASC) 10 MG [...] 2 (two) times a day [facility]ject 100 Units under the skin Start Date: Current [facility] Epic Allergies Allergen: MIRTAZAPINE Reaction: Other (see comments) ADEQUACY ASSESSMENT Kt/V, Natural Log 1.32 (06/10/24) 1.40 (05/18/24) 1.12 (05/13/24) UREA REDUCTION RATIO (%) 68 (06/10/24) 70 (05/18/24) 60 (05/13/24) % Urea Reduction 75 (09/13/23) 69 (09/09/23) 72 (08/21/23) BUN 72 (06/10/24) 76 (05/18/24) 68 (05/13/24) BUN Post Dialysis 23 (06/10/24) 23 (05/18/24) 27 (05/13/24) Creatinine 8.16 (06/10/24) 7.18 (05/13/24) 6.88 (04/15/24) Bicarbonate (CO2) 24 (06/10/24) 23 (05/13/24) 26 (04/15/24) Sodium 135 (06/10/24) 140 (05/13/24) 138 (04/15/24) ANEMIA ASSESSMENT Hgb 10.1 (06/10/24) 9.4 (06/03/24) 8.3 (05/27/24) Hemoglobin 11.3 (09/09/23) 11.0 (09/02/23) 11.7 (08/26/23) Iron Saturation (TSat) 56 (06/10/24) 92 (05/13/24) 78 (04/15/24) Ferritin 1,231 (06/10/24) 1,460 (05/13/24) 1,450 (04/15/24) Iron 117 (06/10/24) 182 (05/13/24) 144 (04/15/24) TIBC 210 (06/10/24) 199 (05/13/24) 185 (04/15/24) MCV 101.3 (06/10/24) 94.9 (05/13/24) 94.3 (04/15/24) Vitamin B-12 624 (08/19/23) Platelets 219 (06/10/24) 175 (05/13/24) 164 (04/15/24) BMM ASSESSMENT Calcium, Adjusted Total 8.9 06/10/24 8.6 05/13/24 8.2 04/15/24 Calcium 8.9 06/10/24 8.4 05/13/24 8.0 04/15/24 Corrected Calcium 8.9 09/09/23 9.1 08/19/23 Phosphorus, Serum 6.7 06/10/24 4.6 05/13/24 5.8 05/01/24 Phosphorus 5.7 09/09/23 5.0 08/19/23 Ca*PO4 59.6 06/10/24 38.6 05/13/24 49.6 04/15/24 Calcium Phosphorus Product 50 09/09/23 44 08/19/23 PTH, Intact 391 06/10/24 346 03/18/24 301 01/15/24 PTH 378 09/09/23 321 08/19/23 Vitamin D, 25-OH, Total 36.9 08/19/23 Magnesium 1.8 06/10/24 1.5 05/13/24 1.6 04/15/24 Alkaline Phosphatase 170 06/10/24 191 05/13/24 163 04/15/24 Aluminum 3 03/18/24 <5 08/19/23 NUTRITION ASSESSMENT Albumin 4.0 06/10/24 3.7 05/13/24 3.8 04/15/24 Potassium 5.0 06/10/24 5.2 05/13/24 4.4 04/15/24 Hemoglobin A1C 8.0 06/10/24 7.5 03/18/24 6.4 08/19/23 ADDITIONAL LABS White Blood Cells 7.5 (06/10/24) 8.2 (05/13/24) 8.2 (04/15/24) WBC 7.28 (09/09/23) 7.98 (08/19/23) Cholesterol 94 (06/10/24) 86 (03/18/24) HDL 23 (06/10/24) 28 (03/18/24) LDL-Calc 14 (06/10/24) 28 (03/18/24) Triglycerides 283 (06/10/24) 150 (03/18/24) Hep B Surface Antibody 362 (03/18/24) 336 (02/19/24) Hepatitis B Surface Ab 547 (08/19/23) Uric Acid 6.0 (03/18/24) Signed by: ALLEN KOROMA MD on 06/15/2024 at 09:00:50 AM documented in this encounter Plan of Treatment Not on file documented as of this encounter Visit Diagnoses Diagnosis End stage renal disease Dependence on renal dialysis documented in this encounter Care Teams Dredgemaster Relationship Specialty Start Date End Date Lizy Soira NP [address] [place] [id number] PCP - General Nurse Practitioner 12/17/23 documented as of this encounter
--- OUTSIDE RECORDS SUMMARY | 2024-06-16 15:33 | XMS_ITS | Encounter Summary ---
Author Organization [employer] Address [address] [place] [address] Care Team Providers Care Senior Product Development Manager Name Role Phone Marline Richard MD Primary Care Provider [phone] Encounter Details Date Type Department Care Team (Late Contact Info) Description 08/23/2022 Orders Only [facility] [address] [place] [address] Marline Richard MD 230 [place] [address] Hyperkalemia (Primary Dx) Social History Tobacco Use [...] Description 07/21/2024 1:00 PM EDT Office Visit [facility] [address] [place] [address] Leslie Aguilar, OD [address] [place] [address] Scheduled Orders Name Type Priority Associated Diagnoses Orde r Schedule Basic Metabolic Panel Lab Routine Hyperkalemia Expected: 08/23/2022 (Approximate), Expires: 08/24/2023 documented as of this encounter Visit Diagnoses Diagnosis Hyperkalemia- Primary Hyperpotassemia documented in this encounter Additional Health Concerns Assessment Noted Time PHQ-9 Depression Total Score: 5 04/20/19 23 1:08 PM EST documented as of this encounter Care Teams Senior Product Development Manager Relationship Specialty Start Date End Date Marline Richard MD 230 [place], [place] [phone] PCP - General Family Medicine 04/21/20 documented as of this encounter
--- OUTSIDE RECORDS SUMMARY | 2024-06-16 15:33 | XMS_ITS | Encounter Summary ---
Author Organization [employer] Address [address] [place] [address] Care Team Providers Care Tellers Supervisor Name Role Phone Marline Richard MD Primary Care Provider [phone] Reason for Visit * Reason Comments Med Refill Encounter Details Date Type Department Care Team ([facility] st Contact Info) Description 06/12/[address] [facility] [address] [place], [place] [phone] Marline Richard MD 230 [place], [place] [phone] Vitamin D deficiency, unspecified Social History Tobacco [...] Description 07/21/2024 1:00 PM EDT Office Visit [facility] [address] [place] [address] Leslie Aguilar, OD 230 [place] [address] documented as of this encounter Goals Goal Patient Goal Type Associated Problems Recent Progress Patient-Stated? Author Blood Pressure < 140/90 Blood Pressure 110/50(2024 2:22 PM EDT) No Deandre Cordon Hemoglobin A1c < 7 Result Component 7.8( 3:44 PM EST) No Deandre Cordon documented as of this encounter Visit Diagnoses Diagnosis Vitamin D deficiency, unspecified documented in this encounter Additional Health Concerns Assessment Noted Time PHQ-9 Depression Total Score: 5 04/20/19 23 1:08 PM EST documented as of this encounter Care Teams Tellers Supervisor Relationship Specialty Start Date End Date Marline Richard MD 230 [place] [address] PCP - General Family Medicine 04/21/20 documented as of this encounter
--- OUTSIDE RECORDS SUMMARY | 2024-06-16 15:33 | XMS_ITS | Encounter Summary ---
Author Organization [employer] Address [address] [place] [address] Care Team Providers Care Press Operator Name Role Phone Marline Richard MD Primary Care Provider [phone] Encounter Details Date Type Department Care Team ([facility] st Contact Info) Description 05/27/2024 Orders Only [facility] [address] [place] [address] Marline Richard MD 230 [place] [address] Social History Tobacco Use Types Packs/Day Years [...] Office Visit [facility] [address] [place], [place] [phone] Jeff, Leslie, OD 230 [place] [address] documented as of this encounter Goals Goal Patient Goal Type Associated Problems Recent Progress Patient-Stated? Author Blood Pressure < 140/90 Blood Pressure 110/50(2024 2:22 PM EDT) Deandre Acosta Hemoglobin A1c < 7 Result Component 7.8( 3:44 PM EST) No Deandre Cordon documented as of this encounter Visit Diagnoses Not on filedocumented in this encounter Additional Health Concerns Assessment Noted Time PHQ-9 Depression Total Score: 0 08/02/19 24 1:47 PM EDT documented as of this encounter Care Teams Press Operator Relationship Specialty Start Date End Date Marline Richard MD 230 [place] [address] PCP - General Family Medicine 04/21/20 documented as of this encounter
--- OUTSIDE RECORDS SUMMARY | 2024-06-16 15:33 | XMS_ITS | Encounter Summary ---
Author Organization [employer] Address [address] [place] [address] Care Team Providers Care Assistant To The Dean Name Role Phone Marline Richard MD Primary Care Provider [phone] Encounter Details Date Type Department Care Team ([facility] st Contact Info) Description 02/15/2023 Orders Only [facility] [address] [place] [address] Marline Richard MD [address] [place] [address] Essential hypertension Social History Tobacco Use Types [...] [facility] [address] [place] [address] JeffYovanin, OD 230 [place] [address] documented as of this encounter Goals Goal [...] documented as of this encounter Care Teams Assistant To The Dean Relationship Specialty Start Date End Date Marline Richard MD [address] [place] [address] PCP - General Family Medicine 04/21/20 documented as of this encounter
--- OUTSIDE RECORDS SUMMARY | 2024-06-16 15:33 | XMS_ITS | Encounter Summary ---
Author Organization [employer] Address [address] [place] [address] Care Team Providers Care Document Advisor Name Role Phone Marline Richard MD Primary Care Provider [phone] Reason for Visit * Reason Comments Med Refill Encounter Details Date Type Department Care Team ([facility] st Contact Info) Description 09/18/2023 Refill [facility] [address] [place], [place] [phone] Marline Richard MD 230 [place], [place] [phone] Type 2 diabetes mellitus with chronic kidney [...] Description 07/21/2024 1:00 PM EDT Office Visit [facility] [address] [place] [address] Jeff, Leslie, OD [address] [place] [address] documented as of this encounter Goals Goal [...] documented as of this encounter Care Teams Document Advisor Relationship Specialty Start Date End Date Marline Richard MD [address] [place] [address] PCP - General Family Medicine 04/21/20 documented as of this encounter
--- OUTSIDE RECORDS SUMMARY | 2024-06-16 15:33 | XMS_ITS | Encounter Summary ---
Author Organization [employer] Address [address] [place] [address] Care Team Providers Care Natural Resource Economist Name Role Phone Marline Richard MD Primary Care Provider [phone] Reason for Visit * Reason Comments Med Refill Encounter Details Date Type Department Care Team ([facility] st Contact Info) Description 08/16/2023 Refill [facility] [address] [place], [place] [phone] Marline Richard MD 230 [place], [place] [phone] Type 2 diabetes mellitus with chronic kidney [...] 07/21/2024 1:00 PM EDT Office Visit [facility] [address] [place] [address] Jeff, Leslie, OD [address] [place] [address] documented as of this encounter Goals Goal [...] documented as of this encounter Care Teams Natural Resource Economist Relationship Specialty Start Date End Date Marline Richard MD [address] [place] [address] PCP - General Family Medicine 04/21/20 documented as of this encounter
--- OUTSIDE RECORDS SUMMARY | 2024-06-16 15:33 | XMS_ITS | Clinical Summary ---
Author Organization [facility] Address [address] [place] [phone] Phone Care Team Providers Care Methods Examiner Name Role Phone Marline Richard MD Primary Care Provider [phone] Allergies No known active allergies Medications No [...] age to complete this topic Meningococcal B Vaccine Aged Out No l onger eligible based on patient's age to complete [...] mmol/L LAB CHEMISTRY METHOD 01/22/2024 11:37 AM [facility] Potassium 4.2 3.5 - 5.5 mmol/L LAB CHEMISTRY METHOD 01/22/2024 11:37 AM EST [facility] LAB Comment:Hemolysis present Chloride 101 96 - 110 mmol/L LAB CHEMISTRY METHOD 01/22/2024 11:37 AM [facility] CO2 31 21 - 32 mmol/L LAB CHEMISTRY METHOD 01/22/2024 11:37 AM [facility] Anion Gap 5 3 - 11 LAB CHEMISTRY METHOD 01/22/2024 11:37 AM [facility] Glucose 121(H) 70 - 100 mg/dL LAB CHEMISTRY METHOD 01/22/2024 11:37 AM [facility] BUN 24 5 - 25 mg/dL LAB CHEMISTRY METHOD 01/22/2024 11:37 AM [facility] Creatinine 3.26(H) 0.70 - 1.30 mg/dL LAB CHEMISTRY METHOD 01/22/2024 11:37 AM [facility] eGFR 20(L) >=60 mL/min/1. 73m2 LAB CHEMISTRY METHOD 01/22/2024 11:37 AM [facility] Comment:Calculation based on the??Chronic Kidney Disease Epidemiology Collaboration (CKD-EPI) equation refit??without adjustment for race. BUN/Creatinine Ratio 7.4 LAB CHEMISTRY METHOD 01/22/2024 11:37 AM [facility] Calcium 9.1 8.5 - 10.5 mg/dL LAB CHEMISTRY METHOD 01/22/2024 11:37 AM [facility] AST (SGOT) 37 10 - 42 unit/L LAB CHEMISTRY METHOD 01/22/2024 11:37 AM [facility] Comment:Hemolysis present ALT (SGPT) 31 10 - 60 unit/L LAB CHEMISTRY METHOD 01/22/2024 11:37 AM [facility] Alkaline Phosphatase 147(H) 42 - 121 unit/L LAB CHEMISTRY METHOD 01/22/2024 11:37 AM [facility] Total Protein 6.8 6.0 - 8.0 g/dL LAB CHEMISTRY METHOD 01/22/2024 11:37 AM [facility] Albumin 3.2 3.2 - 5.0 g/dL LAB CHEMISTRY METHOD 01/22/2024 11:37 AM [facility] Total Bilirubin 0.6 0.0 - 1.4 mg/dL LAB CHEMISTRY METHOD 01/22/2024 11:37 AM [facility] Blood Venous blood specimen / Unknown Venipuncture / Unknown 01/22/2024 10:24 AM EST 01/22/2024 10:59 AM EST us Kelsey DEAN LAB BLOOD ORDERABLES Final Re sult [facility] [address] [place] [address], [place] [phone] from Last 3 Months or Most Recently Relevant to Health Maintenance Insurance [facility] MEDICARE Member Subscriber Plan / Payer (Ef fective 2022-Present) Name:Kingsley Rivero Relation to Subscriber:Self Name:Kingsley Rivero Payer ID:[id number] Group ID:[id number] Type:Not on file Address: [facility] [facility] [place] [address] Care Teams Methods Examiner Relationship Specialty Start Date End Date Marline Richard MD [address] [place] [address] PCP - General Food And Beverage Cashier 01/22/24
--- OUTSIDE RECORDS SUMMARY | 2024-06-16 15:33 | XMS_ITS | Encounter Summary ---
Author Organization [employer] Address [address] [place] [address] Care Team Providers Care Record Changer Name Role Phone Marline Richard MD Primary Care Provider [phone] Reason for Visit * Reason Onset Date Comments Pre-visit Planning 10/30/2023 Encounter Details Date Type Department Care Team ([facility] st Contact Info) Description 10/30/2023 Telephone [facility] [address] [place] [address] Marline Richard MD [address] [place] [address] Pre-visit Planning Social History Tobacco Use Types [...] the past 12 months, has t he [employer], gas, oil or water [employer] threatened to shut off services in your [...] Description 07/21/2024 1:00 PM EDT Office Visit [facility] [address] [place] [address] Leslie Aguilar, OD [address] [place] [address] documented as of this encounter Goals Goal [...] Noted Time PHQ-9 Depression Total Score: 0 05/24/20 24 1:47 PM EDT documented as of this encounter Care Teams Record Changer Relationship Specialty Start Date End Date Marline Richard MD [address] [place] [address] PCP - General Family Medicine 04/21/20 documented as of this encounter
--- OUTSIDE RECORDS SUMMARY | 2024-06-16 15:33 | XMS_ITS | Encounter Summary ---
Author Organization [employer] Address [address] [place] [address] Care Team Providers Care Photograph Enlarger Name Role Phone Marline Richard MD Primary Care Provider [phone] Reason for Visit * Reason Comments Med Refill Encounter Details Date Type Department Care Team ([facility] st Contact Info) Description 02/14/2023 Refill [facility] [address] [place], [place] [phone] Marline Richard MD [address] [place] [address] Social History Tobacco Use Types Packs/Day Years [...] Description 07/21/2024 1:00 PM EDT Office Visit [facility] [address] [place] [address] Jeff, Leslie, OD [address] [place] [address] documented as of this encounter Goals Goal [...] documented as of this encounter Care Teams Photograph Enlarger Relationship Specialty Start Date End Date Marline Richard MD [address] [place], [place] [phone] PCP - General Family Medicine 04/21/20 documented as of this encounter
--- OUTSIDE RECORDS SUMMARY | 2024-06-16 15:33 | XMS_ITS | Encounter Summary ---
Author Organization [facility] Address [address] [place] [phone] Phone Care Team Providers Care Precision Assembly Inspector Name Role Phone Lizy Soria STORE CLERK Primary Care Provider [phone] Encounter Details Date Type Department Care Team ([facility] st Contact Info) Description 06/10/2024 Treatment [facility] [address] [address] Allen Koroma MD [address] [address] End stage renal disease; Dependence [...] care for end stage renal disease. Attending Admitting Coordinator: ALLEN KOROMA MD Dialysis Location: [facility] Schedule: Shift: 1 OVERVIEW Patient is stable. HOME MEDICATIONS Medications reviewed. Current [facility] Outpatient Medications amLODIPine (NORVASC) 10 [...] times a day Start Date: [facility] Inject 100 Units under the skin Start [...] dialysis documented in this encounter Care Teams Precision Assembly Inspector Relationship Specialty Start Date End Date Lizy Soria NP [address] [place] [address] PCP - General Nurse Practitioner 12/17/23 documented as of this encounter
--- OUTSIDE RECORDS SUMMARY | 2024-06-16 15:33 | XMS_ITS | Encounter Summary ---
Author Organization [employer] Address [address] [facility] [address] [place] [address] Care Team Providers Care Blender / Cook Name Role Phone Marline Richard MD Primary Care Provider [phone] Encounter Details Date Type Department Care Team ([facility] Contact Info) Description 12/12/[address] [facility] [address] [place] [address] Marline Richard MD [address] [place] [address] Social History Tobacco Use Types Packs/Day Years [...] Upcoming Encounters Date Type Department Care Team ([facility] Contact Info) Description 07/21/2024 1:00 PM EDT Office Visit [facility] [address] [place] [address] JeffLeslie henry, OD [address] [place] [address] documented as of this encounter Goals Goal [...] documented as of this encounter Care Teams Blender / Cook Relationship Specialty Start Date End Date Marline Richard MD [address] [place] [address] PCP - General Family Medicine 04/21/20 documented as of this encounter
--- OUTSIDE RECORDS SUMMARY | 2024-06-16 15:33 | XMS_ITS | Encounter Summary ---
Author Organization [employer] Address [address] [place] [address] Care Team Providers Care State Game Protector Name Role Phone Marline Richard MD Primary Care Provider [phone] Reason for Visit * Reason Comments Med Refill Encounter Details Date Type Department Care Team ([facility] Contact Info) Description 04/25/2023 Refill [facility] [address] [place], [place] [phone] Marline Richard MD 230 [place], [place] [phone] Phantom limb (CMS/HCC) Social History Tobacco Use [...] Description 07/21/2024 1:00 PM EDT Office Visit [facility] [address] [place], [place] [phone] JeffLeslie, OD [address] [place] [address] documented as of this encounter Goals Goal [...] documented as of this encounter Care Teams State Game Protector Relationship Specialty Start Date End Date Marline Richard MD [address] [place] [address] PCP - General Family Medicine 04/21/20 documented as of this encounter
--- OUTSIDE RECORDS SUMMARY | 2024-06-16 15:33 | XMS_ITS | Clinical Summary ---
Author Organization [facility] Facility Address [address] [address] Care Team Providers Care Carrier Loader Name Role Phone Lizy Soria NP Primary Care Provider [phone] Allergies Active Allergy Reactions Criticality Noted [...] Encounters Date Type Department Care Team Description 06/15/2024 Treatment [facility] [address] [phone] Bernardo Christie MD End stage renal disease; Dependence on renal dialysis 06/10/2024 Treatment [facility] [address] [address] Bernardo Christie MD End stage renal disease; Dependence on renal dialysis 05/25/2024 Treatment [facility] [address] [address] Bernardo Christie MD End stage renal disease; Dependence on renal dialysis 05/18/2024 Treatment [facility] [address] [address] Bernardo Christie MD End stage renal disease; Dependence on renal dialysis 05/13/2024 Treatment [facility] [address] [address] Bernardo Christie MD End stage renal disease; Dependence on renal dialysis 05/11/2024 Treatment [facility] [address] [phone] Bernardo Christie MD End stage renal disease; Dependence on renal dialysis 04/29/2024 Treatment [facility] [address] [address] Bernardo Christie MD 04/27/2024 Treatment [facility] [address] [phone] Bernardo Christie MD 04/20/2024 Treatment [facility] [address] [phone] Bernardo Christie MD 04/15/2024 Orders Only [facility] [address] [address] Bernardo Christie MD 04/13/2024 Treatment [facility] [address] [address] Bernardo Christie MD 04/06/2024 Treatment [facility] [address] [address] Bernardo Christie MD 03/30/2024 Treatment [facility] [address] [phone] Bernardo Christie MD 03/23/2024 Treatment [facility] [address] [phone] Bernardo Christie MD from Last 3 Months [...] Visual Foot Exam 04/11/2020 Diabetes: Hemoglobin A1C 09/09/2024 025, 03/18/2024, 02/10/2024, Additional history exists Influenza Vaccine (Season Ended) 2024 12/19/2021, 01/09/2021, 12/25/2019, Additional history exists Pneumococcal Vaccine: 65+ Years Completed 12/19/2021, 08/04/2012, 02/15/2005 Procedures Procedure Name Priority Date/Time Associated Diagnosis Comments TRANSFERRIN SATURATION Routine 3:00 AM EDT PROTEIN, TOTAL, SERUM Routine 06/10/2024 3:00 AM EDT LIPID PANEL Routine 06/10/2024 3:00 AM EDT MAGNESIUM Routine 06/10/2024 3:00 AM EDT ELECTROLYTE PANEL Routine 06/10/2024 3:0 0 AM EDT LACTATE DEHYDROGENASE Routine 06/10/2024 3:00 AM EDT LIH (HC) Routine 06/10/2024 3:00 AM EDT CREATININE, SERUM Routine 06/10/2024 3:0 0 AM EDT GLUCOSE, RANDOM Routine 06/10/2024 3:00 AM EDT AST Routine 06/10/2024 3:00 AM EDT BILIRUBIN, TOTAL Routine 06/10/2024 3:00 AM EDT ALT Routine 06/10/2024 3:00 AM EDT ALKALINE PHOSPHATASE Routine 06/10/2024 3:00 AM EDT CALCIUM PHOSPHORUS PRODUCT, ADJUSTED (HC) Routine 06/10/2024 3:00 AM EDT PTH, INTACT Routine 06/10/2024 3:00 AM EDT FERRITIN Routine 06/10/2024 3:00 AM EDT HEMOGLOBIN A1C Routine 06/10/2024 3:00 AM EDT CBC AND DIFFERENTIAL Routine 06/10/2024 3:00 AM EDT KT/V NATURAL LOG, URR (HC) Routine 06/10/2024 3:00 AM EDT HEMOGLOBIN Routine 06/03/2024 3:00 AM EDT HEMOGLOBIN AND HEMATOCRIT, BLOOD Routine 05/27/2024 3:00 AM EDT HEMOGLOBIN Routine 05/20/2024 3:00 AM EDT LIH (HC) Routine 05/18/2024 3:00 AM EDT KT/V NATURAL LOG, URR (HC) Routine 05/18/2024 3:00 AM EDT TRANSFERRIN SATURATION [...] from Last 3 Months Results * LIH (06/10/2024 3:00 AM EDT) Only the most recent of7 resultswithin the time period is included. Lipemia Normal Normal [facility] Icterus Normal Normal [facility] Hemolysis Normal Normal [facility] 06/10/2024 3:00 AM EDT 06/12/2024 5:43 PM EDT Bernardo Christie MD LAB [id number] ICITED RESULTS Final Result [facility] [address] [place] [address] * (ABNORMAL) Kt/V Natural Log, URR (06/10/2024 3:00 AM EDT) Only the most recent of6 resultswithin the time period is included. Treatment Time 205 min [facility] Pre-Weight, lb 85.5 kg [facility] Post-Weight, lb 82.8 kg [facility] Ultrafiltration Rate 10 <=13 mL/kg/hr [facility] Comment: Recommend achieving Ultrafiltration Rate (UFR) <=10 mL/kg/hr References: Nora REYES et al. Kidney Int. 2010; 79(2):250-257 BUN Post Dialysis 23 7 - 25 mg/dL [facility] BUN 72(H) 7 - 25 mg/dL [facility] UREA REDUCTION RATIO (%) 68 >=65 % [facility] Kt/V Natural Log 1.32 >=1.2 [facility] 06/10/2024 3:00 AM EDT 06/12/2024 5:33 PM EDT us Bernardo Christie MD LAB [id number] ICITED RESULTS Final Result Performing Organization Address [facility] Co de Phone Number [facility] [address] [place] [address] * (ABNORMAL) Calcium Phosphorus Product, Adjusted (06/10/2024 3:00 AM EDT) Only the most recent of4 resultswithin the time period is included. Albumin 4.0 3.6 - 5.4 g/dL [facility] Calcium 8.9 8.6 - 10.3 mg/dL [facility] Phosphorus, Serum 6.7(H) 2.5 - 5.0 mg/dL [facility] Ca*PO4 59.6(A) <55.0 mg2/dL2 [facility] Calcium, Adjusted Total 8.9 8.6 - 10.3 mg/dL [facility] CA*PO4 CORRCTD 59.6(A) <55.0 mg2/dL2 [facility] 06/10/2024 3:00 AM EDT 06/12/2024 5:43 PM EDT us Bernardo Christie MD LAB [id number] ICITED RESULTS Final Result Performing Organization Address [facility] de Phone Number [facility] [address] [place] [address] * (ABNORMAL) TSAT (06/10/2024 3:00 AM EDT) Only the most recent of4 resultswithin the time period is included. Iron 117 65 - 175 ug/dL [facility] Transferrin 150(L) 215 - 365 mg/dL [facility] TIBC 210(L) 211 - 406 ug/dL [facility] Iron Saturation (TSat) 56(H) 22 - 52 % [facility] 06/10/2024 3:00 AM EDT 06/12/2024 5:43 PM EDT us Bernardo Christie MD LAB BLOOD ORDERABLES Final Resul t Performing Organization Address City/[facility]/ZIP Co de Phone Number [facility] [address] [place] [address] * (ABNORMAL) CBC and Differential (06/10/2024 3:00 AM EDT) Only the most recent of4 resultswithin the time period is included. DIFFERENTIAL MANUAL, 2 Not Indicated [facility] White Blood Cells 7.5 4.2 - 9.1 K/uL [facility] RBC 2.99(L) 4.63 - 6.08 M/uL [facility] Hgb 10.1(L) 13.7 - 17.5 g/dL [facility] Hemoglobin x 3 30.3(L) 41.1 - 52.5 g/dL [facility] Hematocrit 30.3(L) 40.1 - 51.0 % [facility] MCV 101.3(H) 79.0 - 92.2 fL [facility] MCH 33.8(H) 25.7 - 32.2 pg [facility] MCHC 33.3 32.3 - 36.5 g/dL [facility] Platelets 219 163 - 337 K/uL [facility] RDW 15.6(H) 11.6 - 14.4 % [facility] Neutrophils Relative 58.7 34.0 - 67.9 % [facility] Lymphocytes Relative 26.5 21.8 - 53.1 % [facility] Monocytes 11.2 5.3 - 12.2 % [facility] Eosinophils Relative 1.9 0.8 - 7.0 % [facility] Basophils Relative 0.9 0.2 - 1.2 % [facility] Immature Granulocytes 0.8 0.0 - 1.0 % [facility] 06/10/2024 3:00 AM EDT 06/12/2024 5:35 PM EDT Bernardo Christie MD LAB BLOOD ORDERABLES Final Resul t Performing Organization Address City/[facility]/ZIP Co de Phone Number [facility] [address] [place] [address] * ALT (06/10/2024 3:00 AM EDT) Only the most recent of4 resultswithin the time period is included. ALT (SGPT) 26 10 - 49 U/L [facility] 06/10/2024 3:00 AM EDT 06/12/2024 5:43 PM EDT us Bernardo Christie MD LAB BLOOD ORDERABLES Final Resul t Performing Organization Address City/[facility] Co de Phone Number [facility] [address] [place] [address] * AST (06/10/2024 3:00 AM EDT) Only the most recent of4 resultswithin the time period is included. AST (SGOT) 25 <34 U/L [facility] 06/10/2024 3:00 AM EDT 06/12/2024 5:43 PM EDT us Bernardo Christie MD LAB BLOOD ORDERABLES Final Resul t Performing Organization Address [facility] de Phone Number [facility] [address] [place] [address] * Protein, total (06/10/2024 3:00 AM EDT) Only the most recent of4 resultswithin the time period is included. Total Protein 6.8 6.4 - 8.9 g/dL [facility] 06/10/2024 3:00 AM EDT 06/12/2024 5:43 PM EDT us Bernardo Christie MD LAB BLOOD ORDERABLES Final Resul t Performing Organization Address [facility] de Phone Number [facility] [address] [place] [address] * (ABNORMAL) Alkaline phosphatase (06/10/2024 3:00 AM EDT) Only the most recent of4 resultswithin the time period is included. Alkaline Phosphatase 170(H) 46 - 116 U/L [facility] 06/10/2024 3:00 AM EDT 06/12/2024 5:43 PM EDT us Bernardo Christie MD LAB BLOOD ORDERABLES Final Resul t Performing Organization Address [facility] de Phone Number [facility] [address] [place] [address] * PTH, Intact (06/10/2024 3:00 AM EDT) Only the most recent of2 resultswithin the time period is included. PTH, Intact 391 160 - 721 pg/mL [facility] Comment: Suggested (KDIGO) ESRD maintenance range is two to nine times the upper normal limit (80.1 pg/mL) for the laboratory. 06/10/2024 3:00 AM EDT 06/12/2024 5:43 PM EDT us Bernardo Christie MD LAB BLOOD ORDERABLES Final Resul t Performing Organization Address [facility] de Phone Number [facility] [address] [place] [address] * (ABNORMAL) Magnesium (06/10/2024 3:00 AM EDT) Only the most recent of4 resultswithin the time period is included. Magnesium 1.8(L) 1.9 - 2.7 mg/dL [facility] 06/10/2024 3:00 AM EDT 06/12/2024 5:43 PM EDT us Bernardo Christie MD LAB BLOOD ORDERABLES Final Resul t Performing Organization Address [facility] de Phone Number [facility] [address] [place] [address] * (ABNORMAL) Lactate dehydrogenase (06/10/2024 3:00 AM EDT) Only the most recent of4 resultswithin the time period is included. LDH 438(H) 120 - 246 U/L [facility] 06/10/2024 3:00 AM EDT 06/12/2024 5:43 PM EDT us Bernardo Christie MD LAB BLOOD ORDERABLES Final Resul t Performing Organization Address [facility] Co de Phone Number [facility] [address] [place] [address] * (ABNORMAL) Hemoglobin A1c (06/10/2024 3:00 AM EDT) Only the most recent of2 resultswithin the time period is included. Hemoglobin A1C 8.0(H) <5.7 % [facility] Comment: Methodology: Enzymatic HbA1c (NGSP %) ?Suggested Diagnosis >6.4% ? Diabetic 5.7-6.4% ?Pre-Diabetic <5.7% ? Non-Diabetic Diabetic Glucose Control Evaluation: Therapeutic action suggested at >8.0% ADA recommends a glycemic goal of <7.0% 06/10/2024 3:00 AM EDT 06/12/2024 5:35 PM EDT us Bernardo Christie MD LAB BLOOD ORDERABLES Final Resul t Performing Organization Address [facility] de Phone Number [facility] [address] [place] [address] * (ABNORMAL) Glucose, random (06/10/2024 3:00 AM EDT) Only the most recent of4 resultswithin the time period is included. Glucose 400(H) 74 - 109 mg/dL [facility] 06/10/2024 3:00 AM EDT 06/12/2024 5:43 PM EDT us Bernardo Christie MD LAB BLOOD ORDERABLES Final Resul t Performing Organization Address [facility] de Phone Number [facility] [address] [place] [address] * (ABNORMAL) Ferritin (06/10/2024 3:00 AM EDT) Only the most recent of4 resultswithin the time period is included. Ferritin 1,231(H) 22 - 322 ng/mL [facility] 06/10/2024 3:00 AM EDT 06/12/2024 5:43 PM EDT us Bernardo Christie MD LAB BLOOD ORDERABLES Final Resul t Performing Organization Address City/[facility] de Phone Number [facility] [address] [place] [address] * (ABNORMAL) Creatinine, serum (06/10/2024 3:00 AM EDT) Only the most recent of4 resultswithin the time period is included. Creatinine 8.16(H) 0.70 - 1.30 mg/dL [facility] 06/10/2024 3:00 AM EDT 06/12/2024 5:43 PM EDT us Bernardo Christie MD LAB BLOOD ORDERABLES Final Resul t Performing Organization Address [facility] de Phone Number [facility] [address] [place] [address] * (ABNORMAL) Bilirubin, total (06/10/2024 3:00 AM EDT) Only the most recent of4 resultswithin the time period is included. Total Bilirubin <0.2(L) 0.3 - 1.2 mg/dL [facility] 06/10/2024 3:00 AM EDT 06/12/2024 5:43 PM EDT us Bernardo Christie MD LAB BLOOD ORDERABLES Final Resul t Performing Organization Address [facility] de Phone Number [facility] [address] [place] [address] * (ABNORMAL) Lipid panel (06/10/2024 3:00 AM EDT) Only the most recent of2 resultswithin the time period is included. Cholesterol 94 <200 mg/dL [facility] Comment: Optimal: ?<200 Borderline: ? 200-239 Higher Risk: ?>239 Triglycerides 283(A) <150 mg/dL [facility] Comment: Optimal: ?<150 Borderline High: ??150-199 High: ? 200-499 Very High: ?>499 HDL 23(A) >59 mg/dL [facility] Comment: Desirable: ?>59 Higher Risk: ?<40 LDL-Calc 14 <100 mg/dL [facility] Comment: Optimal: ?<100 Above Optimal: ?100-129 Borderline High: ??130-159 High: ? 160-189 Very High: ?>189 VLDL Cholesterol Ernie 57(A) <30 mg/dL [facility] Comment: Optimal: ?<30 Borderline High: ??30-39 High: ? 40-99 Very High: ?>99 Chol/HDL Ratio 4.1(A) <3.3 [facility] Comment: Optimal: ?<3.3 Higher Risk: ?>6.2 06/10/2024 3:00 AM EDT 06/12/2024 5:43 PM EDT us Bernardo Christie MD LAB BLOOD ORDERABLES Final Resul t [facility] [address] [place] [address] * (ABNORMAL) Electrolyte panel (06/10/2024 3:00 AM EDT) Only the most recent of4 resultswithin the time period is included. Sodium 135(L) 136 - 145 mEq/L [facility] Potassium 5.0 3.4 - 5.0 mEq/L [facility] Chloride 96(L) 98 - 107 mEq/L [facility] Bicarbonate (CO2) 24 21 - 31 mEq/L [facility] Anion Gap 15(H) 3 - 14 mEq/L [facility] 06/10/2024 3:00 AM EDT 06/12/2024 5:43 PM EDT us Bernardo Christie MD LAB BLOOD ORDERABLES Final Resul t Performing Organization Address [facility] de Phone Number [facility] [address] [place] [address] * (ABNORMAL) Hemoglobin (06/03/2024 3:00 AM EDT) Only the most recent of6 resultswithin the time period is included. Hgb 9.4(L) 13.7 - 17.5 g/dL [facility] Hemoglobin x 3 28.2(L) 41.1 - 52.5 g/dL [facility] 06/03/2024 3:00 AM EDT 06/04/2024 12:41 PM EDT us Bernardo Christie MD LAB BLOOD ORDERABLES Final Resul t Performing Organization Address [facility] de Phone Number [facility] [address] [place] [address] * (ABNORMAL) Hemoglobin and hematocrit (05/27/2024 3:00 AM EDT) Only the most recent of3 resultswithin the time period is included. Hgb 8.3(L) 13.7 - 17.5 g/dL [facility] Hematocrit 25.5(L) 40.1 - 51.0 % [facility] Hemoglobin x 3 24.9(L) 41.1 - 52.5 g/dL [facility] 05/27/2024 3:00 AM EDT 05/28/2024 1:17 PM EDT us Bernrado Christie MD LAB BLOOD ORDERABLES Final Resul t Performing Organization Address [facility] de Phone Number [facility] [address] [place] [address] * (ABNORMAL) Phosphorus (05/01/2024 3:00 AM EST) Phosphorus, Serum 5.8(H) 2.5 - 5.0 mg/dL [facility] 05/01/2024 3:00 AM EST 05/02/2024 1:34 PM EST us Bernardo Christie MD LAB BLOOD ORDERABLES Final Resul t Performing Organization Address [facility] de Phone Number [facility] [address] [place] [address] * Confirmation Test HCV (03/18/2024 3:00 AM EST) Hep C Ab Confirmation Not needed [facility] 03/18/2024 3:00 AM EST 03/19/2024 6:04 PM EST us Bernardo Christie MD LAB BLOOD ORDERABLES Final Resul t Performing Organization Address [facility] de Phone Number [facility] [address] [place] [address] * HEPATITIS C ABS W/REFLEX RNA DETECTR (03/18/2024 3:00 AM EST) Pathologist [facility] Hep C Virus Ab Non-Reacti ve Non-Reacti ve [facility] 03/18/2024 3:00 AM EST 03/19/2024 5:56 PM EST us Bernardo Christie MD LAB [id number] ICITED RESULTS Final Result Performing Organization Address [facility] de Phone Number [facility] [address] [place] [address] * Aluminum level (03/18/2024 3:00 AM EST) Pathologist [facility] Aluminum 3 1 - 20 ug/L [facility] 03/18/2024 3:00 AM EST 03/19/2024 5:39 PM EST us Bernardo Christie MD LAB BLOOD ORDERABLES Final Resul t Performing Organization Address [facility] de Phone Number [facility] [address] [place] [address] * Hepatitis B Surface Antibody (03/18/2024 3:00 AM EST) Hep B Surface Antibody 362 mIU/mL [facility] Comment: Interpretation: <10: No Immunity >=10: Probable Immunity 03/18/2024 3:00 AM EST 03/19/2024 5:56 PM EST us Bernardo Christie MD LAB BLOOD ORDERABLES Final Resul t Performing Organization Address [facility] de Phone Number [facility] [address] [place] [address] * Uric Acid (03/18/2024 3:00 AM EST) Uric Acid 6.0 4.4 - 7.6 mg/dL [facility] 03/18/2024 3:00 AM EST 03/19/2024 5:56 PM EST us Bernardo Christie MD LAB BLOOD ORDERABLES Final Resul t Performing Organization Address [facility] de Phone Number [facility] [address] [place] [address] from Last 3 Months Insurance [facility] ([id number]) JERMAINE JARAMILLO [id number] [facility] [employer] MCR ([id number]) JERMAINE JARAMILLO [phone] Care Teams Carrier Loader Relationship Specialty Start Date End Date Lizy Soria NP [address] [place] [phone] PCP - General Nurse Practitioner 12/17/23
--- OUTSIDE RECORDS SUMMARY | 2024-06-16 15:33 | XMS_ITS | Encounter Summary ---
Author Organization [facility] Address [address] [facility] [address] [place] [address] Care Team Providers Care Gas Operations Analyst Name Role Phone Marline Richard MD Primary Care Provider [phone] Encounter Details Date Type Department Care Team ([facility] Contact Info) Description 01/23/2024 Orders Only [facility] [address] [place] [address] ProviderJose D MD Social History Tobacco Use [...] Visit [facility] [address] [place] [address] JeffLeslie, OD [address] [place] [address] documented as of this encounter Goals Goal [...] documented as of this encounter Care Teams Gas Operations Analyst Relationship Specialty Start Date End Date Marline Richard MD [address] [place] [address] PCP - General Family Medicine 04/21/20 documented as of this encounter
--- OUTSIDE RECORDS SUMMARY | 2024-06-16 15:33 | XMS_ITS | Data Portability ---
Author Organization [employer] [employer] Address [address] [place] [address] Care Team Providers Care Bundle Collector Name Role Phone [facility] OTHER [phone] HIM [facility] OTHER Assessment Encounter Date Assessment Date Assessment LastModified by Organization Details LastModified Time 03/22/2022 03/22/2022 I have reviewed and agree with the Assessment and Plan as documented by the Sugar Mill Worker. I provided real-time medical direction via phone [...] Assessment and Plan as documented by the Sugar Mill Worker. Patient given the opportunity to ask questions. [...] but is anuric at baseline now. Per naval aircrewman avionics on the scene, vital signs show that he is orthostatic. He is not tachycardic at baseline. His mentation is within normal limits. Impression implant: Likely hypotension related to fluid shifts after change in hemodialysis schedule. Asked him to follow-up tomorrow with his robotics application engineer at his hemodialysis center. Encourage p.o. intake. 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 active Not Available Not Available No t [...] Not Available Not Available Not Available [employer] [place] Lite kit USE TO TEST BLOOD SUGAR [...] /min 124 mm[Hg] 55 mm[Hg] Not Available [facility] production 3 19:28:13 Date Recorded Oxygen saturation Oxygen saturation in Arterial blood by Pulse oximetry Body temperature Respiratory rate Heart rate Systolic blood pressure Diastolic blood pressure Provider Name and Address Organization Details Last Updated DateTime 4 99 % 99 % 99.3 [degF] 18 /min 58 /min 100 mm[Hg] 55 mm[Hg] Not Available [facility] - production 4 15:13:38 Date Recorded Respiratory rate Body temperature Oxygen saturation Oxygen saturation in Arterial blood by Pulse oximetry Heart rate Systolic blood pressure Diastolic blood pressure Provider Name and Address Organization Details Last Updated DateTime 3 18 /min 98.3 [degF] 98 % 98 % 86 /min 148 mm[Hg] 88 mm[Hg] Not Available [facility] 3 11:12:30 Social History None recorded. Functional Status None recorded. Mental Status None recorded. Family History Nothing Reported. Medical History No medical history recorded. Past Encounters Encounter ID Performer Location Encounter Start Date Encounter Closed Date Diagnosis/Indication Diagnosis SNOMED-CT Code Diagnosis ICD10 Code Diagnosis Note [id number] Ned López MD [facility] [address] [place] [address] [id number] 03/22/2022 11:12:28 03/27/2022 11:25:26 Foot pain 89050108 M79.673 [id number] Michael Thacker MD [facility] [address] [place] [address] [id number] 02/19/2023 19:28:08 02/20/2023 13:35:32 Viral upper respiratory tract infection [id number] J06.9 [id number] Marjan Dale MD [facility] [address] [place] [address] [id number] 02/03/2024 15:13:32 02/03/2024 21:25:25 End stage renal failure on dialysis 607122768 N18.6 Health Concerns Section Related Observation LastModified by Organization Detai ls LastModified Time None Recorded Concern Status LastModified by Organization Details LastModified Time None Recorded Advance Directives Directive None Recorded Payers Encounter Date Sequence Insurance Name Policy Number Policy Lazo Covered Member ID Lazo Member ID Guarantor Name 03/22/2022 1 [facility] - DOS PRIOR TO 2022 - DUAL ELIGIBLE (MEDICARE REPLACEMENT/ADV ANTAGE - HMO) Kingsley Johnson [id number] Kingsley Johnson 02/19/2023 1 [facility] - DOS ON OR AFTER 2022 - DUAL ELIGIBLE - [facility] AND ONE CARE (MEDICARE REPLACEMENT/ADV ANTAGE - HMO) Kingsley Johnson [id number] Kingsley Johnson 02/03/2024 1 [facility] - DOS ON OR AFTER 2022 - DUAL ELIGIBLE - [facility] [employer] AND ONE CARE (MEDICARE REPLACEMENT/ADV ANTAGE - HMO) Kingsley Johnson [id number] Kingsley Johnson Notes Date Note Type Note [...] ................... ................... ................... ................... ................... ................... ........ Sugar Mill Worker Note: Pt states he has part of [...] surgeon but he would not give more. [facility] [place]. Pt given 15mg IM toradol. Red flags discussed ................... ................... ................... ................... ................... ................... ................... ........ Disposition: Fulfilled Ned López MD [address] [facility],[address], [place], [address], [email or web address] 03/27/2022 10:09:04 02/19/2023 text/html HPI: Hx CKD [...] CHUYITA---- 02/18 5:08p call to member via [employer] [phone], as we can not see member this evening due to capacity, no answer and VM left to call back, will place on the schedule for tomorrow 02/19- AAdithya ................... ................... ................... ................... ................... ................... ................... ........ Sugar Mill Worker Note From Rojelio Rendon: Pt reports 5 days of URI symptoms of dry cough not feeling well and nasal congestion. Denies any fever chills denies any N/VD denies any sob denies any pain. Reports that he has been feeling better days and symptoms are improving. On scene vs taken and Covid flu done [facility] [place] was called and cleared. ................... ................... ................... ................... ................... ................... ................... ........ Disposition: Fulfilled Michael Thacker MD [address] [place] [address],[address], [place], [address], [employer] 02/19/2023 23:36:12 02/03/2024 text/html HPI: Patient on [...] ................... ................... ................... ................... ................... ................... ........ Sugar Mill Worker Note From Serge Cordova: Dispatched to above [...] has been taking his medications as directed. [facility] [place] consulted. Pt informed of re flags and when to seek further medical attention. Pt found seated in wheel chair speaking in full clear sentences with no signs of distress. AO and GCS-15. PERRL. Skin P/W/D. Airway open and lung sounds clear in all stephenson. ABD soft non tender. Rest exam unremarkable. ................... ................... ................... ................... ................... ................... ................... ........ [facility] [place] Consulted: Marjan Dale ................... ................... ................... ................... ................... ................... ................... ........ Disposition: Hilario Dale MD [address] [facility],[address], [place], [address], [employer] 02/03/2024 20:08:16
--- OUTSIDE RECORDS SUMMARY | 2024-06-16 15:33 | XMS_ITS | Clinical Summary ---
Author Organization [employer] Address [address] [facility] 7[address] [place] [address] Care Team Providers Care Knit Tubing Dyer Name Role Phone Marline Richard MD Primary Care Provider [phone] Allergies Active Allergy Reactions Criticality Noted Date Comments Metformin 08/05/2023 Mirtazapine Hives 07/08/2014 Medications Continuous Blood Gluc Formula Room Worker ([employer] Daniel 2 [place]) deviceIndicatio ns:Type 2 diabetes mellitus with stage 2 chronic kidney disease, with long-term current use of insulin ([facility]) 1 each in the morning. 1 each [...] chew. 30 capsule 11 02/21/20 23 Active NIFEdipine XL (Procardia XL) 90 MG 24 hr tablet Take 1 tablet (90 mg) by mouth Once per day. Do not crush, chew, or split. 30 tablet 11 07/16/19 24 025 Active isosorbide mononitrate ER (Imdur) 120 MG 24 hr tablet Take 1 tablet (120 mg) by mouth Once per day. Do not crush or chew. 30 tablet 11 07/16/19 24 025 Active sertraline (Zoloft) 50 MG tablet TAKE 1 TABLET BY MOUTH EVERY MORNING 90 tablet 08/14/19 24 Active Icosapent Ethyl (Vascepa) 1 [...] use of insulin, unspecified CKD stage (CMS/HCC) USE DIRECTED TO TEST BLOOD SUGAR THREE TIMES DAILY 100 strip 09/13/19 Active Continuous Glucose Sensor (FreeStyle Daniel 2 Sensor) miscIndications :Type 2 diabetes mellitus with stage 2 chronic kidney disease, with long-term current use of insulin ([facility]) USE DIRECTED AND CHANGE EVERY 14 DAYS 2 each 09/13/19 24 Active Blood Glucose Monitoring Suppl (ONE TOUCH ULTRA 2) w/Device kitIndications: Type 2 diabetes mellitus with chronic kidney disease, with long-term current use of insulin, unspecified CKD stage (CMS/HCC) Use to monitor blood glucose three times daily 1 kit 10/08/19 24 Active tamsulosin (Flomax) 0.4 MG 24 hr capsule TAKE 1 CAPSULE BY MOUTH EVERY EVENING 30 MINUTOS DESPUES DE LA EAP CLINICIAN 90 capsule 3 11/25/19 24 Active hydrALAZINE (Apresoline) 50 MG tabletIndicatio ns:Essential hypertension TAKE 2 TABLETS BY MOUTH THREE TIMES DAILY IN THE MORNING, EVENING AND BEDTIME 180 tablet 12/31/19 24 Active gabapentin (Neurontin) 300 MG capsule TAKE 1 CAPSULE BY MOUTH EVERY MORNING 90 capsule 12/31/19 24 Active Tresiba FlexTouch 100 UNIT/ML injection Inject 25 Units under the skin at bedtime. 10 mL 3 02/10/20 24 Active Lancets 33G misc 1 each at noon and 1 each in the evening. Use to test blood sugar three times a day. 100 each 02/10/20 24 Active cyclobenzaprine (Flexeril) 10 MG [...] EVENING 180 tablet 3 05/08/19 25 Active cholecalciferol (Vitamin D-3) 25 MCG tablet TAKE 1 TABLET BY MOUTH EVERY MORNING 90 tablet 3 06/04/19 25 Active docusate sodium (Colace) 100 MG capsuleIndicati ons:Constipatio n, unspecified constipation type TAKE 1 CAPSULE BY MOUTH AT BEDTIME 90 capsule 3 06/04/19 25 Active docusate sodium (Colace) 100 MG capsuleIndicati ons:Constipatio n, unspecified constipation type TAKE 1 CAPSULE BY MOUTH AT BEDTIME 90 capsule 3 03/26/19 24 025 Discontinued cholecalciferol (Vitamin D3) 25 MCG (1000 UT) tablet Take 1 tablet (1,000 Units) by mouth in the morning. 90 tablet 3 06/14/19 24 025 Discontinued losartan (Cozaar) 50 MG tablet Take 1 tablet (50 mg) by mouth Once per day. 90 tablet 3 05/08/19 25 025 Discontinued(Re order (will not trigger notification to Pharmacy)) losartan (Cozaar) 50 MG tablet Take 1 tablet (50 mg) by mouth Once per day. 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 Seen at [facility] ED 05/18/24(yesterday) for low BP, headache. Went to dialysis on yesterday, felt fine before and during dialysis felt a sense of dizziness, which was not unusual. Pt then went home had breakfast and the developed a headache and abdominal pain. Went to ED via ambulance, with EMS BP was 76/42. In the ED BP remained low. Was given IV fluids, BP improved. Neuro exam normal and symptoms were thought to be related to dialysis. Pt was discharged home with BP 110/56. Today in clinic BP is 110/50. Given BP being so labile and likely secondary to hemodialysis, encouraged to discuss at dialysis tomorrow. Discussed monitoring BP at home and before and after dialysis to give elevator dispatcher accurate logs. 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 sarahi gs [...] & Plan (04/15/2023 11:28 AM EST): At [facility] dialysis M/W/F schedule Confirmed with dialysis provider [...] associa adilson with type 2 diabetes mellitus 12/14/2014 Assessment & Plan (08/05/2023 11:10 AM [...] EDT): With worsening Cr, [place] [facility] [place] suggesting renal artery stenosis Had MRA pending Continue Amlodipine, Lasix, Losartan, Metoprolol, Isosorbide - [facility] [place] had started Nifedipine as well in September hospitalization, this was discontinued by cardiology 10/10/22, removed from med list Assessment & Plan (08/20/2022 7:51 AM EDT): Currently in [facility]/bump in Cr Managing BP meds with change management coordinator, held all of his BP meds and Metformin today Assessment & Plan (04/24/2022 11:45 AM EST): Continue medbox meds Confirmed this with pharmacy Dispose of rehab meds appropriately Mixed hyperlipidemia 12/14/2014 Encounters Date Type Department Care Team Description 06/03/[address] [facility] [address] [place] [address] Marline Richard MD Constipation, unspecified constipation type 06/01/[address] [facility] [address] [place] [address] Marline Richard MD Appointment Request 05/28/[address] [facility] [address] [place] [phone] Marline Richard MD pre op 05/27/2024 Orders Only [address] [address] Marline Richard MD 05/25/2024 Orders Only GENERIC EXTERNAL DATA DEPARTMENT Provider, Generic External Data 05/19/2024 2:00 PM EDT Office Visit [facility] [address] [place] [phone] Alexa Linares MD Hemodialysis-associat ed hypotension (Primary Dx) 05/19/[address] [address] Marline Richard MD Nurse Triage 05/08/2024 Orders Only GENERIC EXTERNAL DATA DEPARTMENT Provider, Generic External Data 05/07/[address] [facility] [address] [place], [place] [phone] Marline Richard MD 05/06/[address] [address] Marline Richard MD recall 04/30/2024 1:30 PM EST Office Visit [facility] [address] [place] [address] Iliana Oswald MD Preop examination (Primary Dx); Type 2 diabetes mellitus with chronic kidney disease, with long-term current use of insulin, unspecified CKD stage ([facility]); Primary insomnia; Essential hypertension 04/30/2024 Travel 04/17/[address] [address] Marline Richard MD 04/15/[address] [address] [place] Chart Prep from Last 3 Months Immunizations Name Administration [...] Sign Reading Time Taken Comments Blood Pressure 110/50 05/19/2024 2:22 PM EDT Pulse 69 05/19/2024 1:27 PM EDT Temperature 36.4 ??C (97.6 ??F) 05/19/2024 1:27 PM ED T Respiratory Rate 16 04/30/2024 1:18 PM EST Oxygen Saturation 97% 05/19/2024 1:27 PM EDT Inhaled Oxygen Concentration - - Weight 87.5 kg (193 lb) 04/30/2024 1:18 PM EST Height 175.3 cm (5' 9 ) 04/30/2024 1:18 PM EST Body Mass Index 28.5 04/30/2024 1:18 PM EST Plan of Treatment Upcoming Encounters Date Type Department Care Team (Late st Contact Info) Description 07/21/2024 1:00 PM EDT Office Visit [facility] [address] [place] [address] Leslie Aguilar, OD [address] [place] [address] Health Maintenance Due Date Last Done Comments [...] Procedure Name Priority Date/Time Associated Diagnosis Comments VENOUS BLOOD GAS Routine 05/25/2024 10:1 2 AM EDT HIGH SENSITIVITY TROPONIN I Routine 05/25/2024 9:59 AM EDT CBC WITH AUTO DIFFERENTIAL Routine 05/25/2024 9:59 AM EDT MAGNESIUM Routine 05/25/2024 9:58 AM EDT BASIC METABOLIC PANEL Routine 05/25/2024 9:58 AM EDT HEPATIC FUNCTION PANEL Routine 05/25/2024 9:[address] HEAD WO CONTRAST Routine 05/25/2024 9 :29 AM EDT BASIC METABOLIC PANEL Routine 05/08/2024 10:39 AM [...] dialysis, with long-term current use of insulin ([facility]) from Last 3 Months or Most Recently Relevant to Health Maintenance Results * (ABNORMAL) VENOUS BLOOD GAS (05/25/2024 10:12 AM EDT) VBG pH 7.51(H) 7.32 - 7.43 [facility] Comment:METER #: [id number] additional_comment: CbRogalt VBG PCO2 42 mmHg [facility] Comment:METER #: [id number] additional_comment: CbRogalt VBG PO2 96 mmHg [facility] Comment:METER #: [id number] additional_comment: CbRogalt VBG Base Excess 10.4 mmol/L [facility] Comment:METER #: [id number] additional_comment: CbRogalt VBG HCO3 34(H) 22 - 26 mmol/L [facility] Comment:METER #: [id number] additional_comment: CbRogalt O2 Sat, Aureliano 99.0 % [facility] Comment:METER #: [id number] additional_comment: CbRogalt 05/25/2024 10:1 2 AM EDT 05/25/2024 10:15 AM EDT us Generic External Data Provider LAB BLOOD ORDERAB LES Final Result [facility] [address] [place] [phone] * High Sensitivity Troponin I (05/25/2024 9:59 AM EDT) TROPONIN I HIGH SENSITIVITY 14.1 <3.5 - 35.0 ng/L [facility] Comment:The Ferraro high sens itivity Troponin-I results should beused in conjunction with other diagnostic information suchas ECG, clinical observations and information, and patientsymptoms to aid in the diagnosis of ND. 05/25/2024 9:59 AM EDT 05/25/2024 10:07 AM EDT us Generic External Data Provider LAB BLOOD ORDERAB LES Final Result [facility] [address] [place] [address] [phone] * (ABNORMAL) CBC auto differential (05/25/2024 9:59 AM EDT) Only the most recent of2 resultswithin the time period is included. White Blood Count 8.5 4.8 - 10.8 X10*3/uL [facility] Red Blood Count 2.79(L) 4.60 - 5.80 X10*6/uL [facility] Hemoglobin 9.0(L) 14.0 - 18.0 g/dl [facility] Hematocrit 26.4(L) 42.0 - 52.0 % [facility] Mean Corpuscular Volume 94.6 80.0 - 98.0 fL [facility] Mean Corpuscular Hemoglobin 32.3 27.0 - 33.0 pg [facility] Mean Corpuscular HGB Conc 34.1 31.0 - 36.0 g/dl [facility] Red Cell Distribution Width 16.2(H) 11.0 - 16.0 % [facility] Platelet Count 203 160 - 400 X10*3/uL [facility] Mean Platelet Volume 10.1 9.4 - 12.4 fL [facility] Neutrophils Percent Auto 65.3 45 - 73 % [facility] Imm Gran Pct Auto 0.5(H) 0.0 - 0.4 % [facility] Lymphocytes Percent Auto 21.9 20 - 40 % [facility] Monocytes Percent Auto 9.8 2 - 11 % [facility] Eosinophils Percent Auto 2.0 0 - 4 % [facility] Basophils Percent Auto 0.5 0 - 2 % [facility] NRBC Pct Auto 0.0 0.0 - 0.2 /100WBC [facility] Neutrophils Absolute Auto 5.6 2.0 - 8.3 x10*3/uL [facility] Imm Gran Abs Auto 0.04(H) 0.00 - 0.03 X10*3/uL [facility] Lymphocytes Absolute Auto 1.9 1.2 - 4.9 X10*3/uL [facility] Monocytes Absolute Auto 0.8 0.1 - 1.2 X10*3/uL [facility] Eosinophils Absolute Auto 0.2 0.0 - 0.4 X10*3/uL [facility] Basophils Absolute Auto 0.0 0.0 - 0.2 X10*3/uL [facility] NRBC Abs Auto 0.000 0.0 - 0.012 X10*3/uL [facility] 05/25/2024 9:59 AM EDT 05/25/2024 10:07 AM EDT Generic External Data Provider LAB BLOOD ORDERAB LES Final Result Performing Organization Address City/[facility]/ZIP Co de Phone Number [facility] [address] [place] [phone] * Magnesium (05/25/2024 9:58 AM EDT) Pathologist [facility] Magnesium 1.6 1.6 - 2.6 mg/dL [facility] 05/25/2024 9:58 AM EDT 05/25/2024 10:07 AM EDT Generic External Data Provider LAB BLOOD ORDERAB LES Final Result Performing Organization Address [facility] Co de Phone Number [facility] [address] [place] [address] [phone] * (ABNORMAL) Hepatic Function Panel (05/25/2024 9:58 AM EDT) Bilirubin, Total 0.5 0.0 - 1.0 mg/dL [facility] Bilirubin, Direct 0.1 0.0 - 0.5 mg/dL [facility] Aspartate Amino Transferase 32 5 - 37 U/L [facility] Alanine Aminotransferase 27 0 - 40 U/L [facility] Total Protein 7.8 6.5 - 8.0 g/dL [facility] Albumin Level 3.8 3.5 - 5.0 g/dL [facility] Alkaline Phosphatase 160(H) 39 - 117 U/L [facility] 05/25/2024 9:58 AM EDT 05/25/2024 10:07 AM EDT us Generic External Data Provider LAB BLOOD ORDERAB LES Final Result [facility] [address] [place] [phone] * (ABNORMAL) Basic Metabolic Panel (05/25/2024 9:58 AM EDT) Only the most recent of2 resultswithin the time period is included. Sodium 140 135 - 145 mmol/L [facility] Potassium 4.2 3.3 - 5.1 mmol/L [facility] Chloride 99 96 - 108 mmol/L [facility] Carbon Dioxide 30(H) 22 - 29 mmol/L [facility] Anion Gap 15 12 - 20 [facility] Urea Nitrogen (BUN) 46(H) 9 - 16 mg/dL [facility] Creatinine, Serum 5.76(HH) 0.5 - 1.4 mg/dL [facility] Comment:Critical value for C RE: Results called to and read backby: NOE Person calling: ALEXANDER Date: 05-25-24 Time: 1031 Creatinine Clr Calc Pharmacy 11.7 [facility] Comment:eGFR (calculated fro m the MDRD study equation) and eCrCl(calculated from the Cockcroft-Gault equation) are based ondifferent parameters and may not yield comparable results.If eCrCl result is absurd, please check patient'sheight/weight. Estimated Glomerular Filt Rate 10 [facility] Comment:Chronic Kidney Disea se: Estimated GFR < 60 mL/min/1.07s3Ysgraw Kidney Disease: Estimated GFR < 15 mL/min/1.73m2 Glucose 164(H) 60 - 115 mg/dL [facility] Calcium 8.9 8.4 - 10.2 mg/dL [facility] 05/25/2024 9:58 AM EDT 05/25/2024 10:07 AM EDT us Generic External Data Provider LAB BLOOD ORDERAB LES Final Result [facility] [address] [place] [address] [phone] * CT Head w/o Contrast (05/25/2024 9:29 AM EDT) Anatomical Region Laterality Modality Head, Neck Computed Tomogra phy 05/25/2024 9:29 AM EDT Narrative 05/25/2024 10:00 AM EDT ? [facility] ?[address] ?[place] [address] ? CT Scan Report ? Signed ? Patient: Kingsley Rivero ?MR#: [id number] ?? 40 ? : 1955 ?Acct:[id number] ? Age/Sex: 69 / M ?ADM Date: 05/25/24 ? Loc: HO.ED ? Attending Dr: ? Ordering Physician: Jami Noe MD ?? Date of Service: 05/25/24 ?? Procedure(s): CT head/brain wo IV con ?? Accession Number(s): [id number] ? cc: Marline Richard; Jami Noe MD ? Report Number: ?? [id number]: Total DLP = ??784.00 mGy-cm ?? EXAMINATION: CT HEAD WITHOUT IV CONTRAST ? HISTORY: yates. ? TECHNIQUE: ? Unenhanced helical CT of the head was performed per standard ?? departmental protocol. Coronal and sagittal reformats of the head were ?? also evaluated. One or more of the following techniques was used for ?? dose reduction: Automated exposure control, adjustment of the mA and/or ?? kV according to patient size, use of iterative reconstruction technique. ? DLP: 784 mGy-cm ? COMPARISON: Comparison is made with the prior examination dated ?? 01/21/2023. ? FINDINGS: ? BRAIN: ??The brain parenchyma is unremarkable. There is normal ?? lawrence/white differentiation. The ventricular system is normal in size ?? and configuration. ??There is no mass effect or midline shift. ??No ?? intra- or extra-axial fluid collections are identified. ? SINUSES: The visualized paranasal sinuses are clear. ??The mastoid air ?? cells and middle ear cavities are well pneumatized. ? ORBITS: The visualized orbits are unremarkable. ? BONES/SOFT TISSUES: The extracranial soft tissues are unremarkable. The ?? calvarium is intact. No suspicious lytic or sclerotic lesions. ? CT/CT head/brain wo IV con ?? IMPRESSION: ?? No acute intracranial abnormality. ? Electronically signed by: ??Mateusz Walton MD ??05/25/2024 09:57 AM EDT ? Dictated By: ?Mateusz Walton MD ? Signed By: ?<Electronically signed by Mateusz Walton MD in OV> ?05/25/24 0957 ? DD/ ? TD/TT: 05/25/2449 ? Residential Sales Rep: ? Procedure Note Nick, Yisel - 05/25/[address] [address] [address] Scan Report Signed Patient: Kingsley Rivero RMR#: [id number] 40 : 5Acct:[id number] Age/Sex: 69 / MADM Date: 05/25/24 Loc: HO.ED Attending Dr: Ordering Physician: Jami Noe MD Date of Service: 05/25/24 Procedure(s): CT head/brain wo IV con Accession Number(s): [id number] cc: Marline Richard; Jami Noe MD Report Number: [id number]: Total DLP = 784.00 mGy-cm EXAMINATION: CT HEAD WITHOUT IV CONTRAST HISTORY: yates. TECHNIQUE: Unenhanced helical CT of the head was performed per standard departmental protocol. Coronal and sagittal reformats of the head were also evaluated. One or more of the following techniques was used for dose reduction: Automated exposure control, adjustment of the mA and/or kV according to patient size, use of iterative reconstruction technique. DLP: 784 mGy-cm COMPARISON: Comparison is made with the prior examination dated 01/21/2023. FINDINGS: BRAIN: The brain parenchyma is unremarkable. There is normal lawrence/white differentiation. The ventricular system is normal in size and configuration. There is no mass effect or midline shift. No intra- or extra-axial fluid collections are identified. SINUSES: The visualized paranasal sinuses are clear. The mastoid air cells and middle ear cavities are well pneumatized. ORBITS: The visualized orbits are unremarkable. BONES/SOFT TISSUES: The extracranial soft tissues are unremarkable. The calvarium is intact. No suspicious lytic or sclerotic lesions. CT/CT head/brain wo IV con IMPRESSION: No acute intracranial abnormality. Electronically signed by: Mateusz Walton MD 05/25/2024 09:57 AM EDT Dictated By: Mateusz Walton MD Signed By: <Electronically signed by Mateusz Walton MD in OV> 05/25/24 0957 DD/ 0929 TD/TT: 05/25/24 0949 Residential Sales Rep: [facility] External Provider IMG CT PROCEDURES Final Result * (ABNORMAL) POCT glucose manually resulted (04/30/2024 1:20 PM EST) Glucose Blood, POC 439(A) 60 - 200 mg/dL QC Media Lot # Comment:[id number] Lot# Expiration Date Comment:06/16/2024 Blood Capillary blood specimen / Unknown 04/30/2024 1:20 PM EST Iliana Oswald MD POINT OF CARE TEST ENTER/EDIT ORDERABLES Final Result * (ABNORMAL) POCT HGB A1C (02/10/2024 3:44 PM EST) Hemoglobin A1C 7.8(A) 4.0 - 6.0 % QC Media Lot # [id number] Lot# Expiration Date Blood 02/10/2024 3:44 PM EST Marline Richard MD POINT OF CARE TEST ENTER/EDIT ORDERABLES Final Result * (ABNORMAL) Lipid Panel, Standard (07/15/2023 2:42 PM EDT) Triglycerides 294(H) <150 mg/dL [facility] Comment:Desirable Triglyceri de: less than 150 mg/dLBorderline High Triglyceride 150-199 mg/dLHigh Triglyceride: 200-499 mg/dLVery High Triglyceride: greater than or equal to 5OO mg/dL Cholesterol 118 <200 mg/dL [facility] Comment:Desirable Cholestero l: less than 200 mg/dLBorderline High Cholesterol: 200-239 mg/dLHigh Cholesterol: greater than 239 mg/dL LDL Cholesterol Calculated 22 <100 mg/dL [facility] Comment:Desirable LDL: less than 100 mg/dLNear Optimal/Above Optimal LDL: 110- 129 mg/dLBorderline High LDL: 130-159 mg/dLHigh LDL: 160-189 mg/dLVery High LDL: greater than or equal to 190 mg/dL HDL Cholesterol 38(L) >40 mg/dL [facility] Comment:Desirable HDL: great er than 40 mg/dL Note: This HDL assay may give artificially low results in patients with liver disease. Blood Venous blood specimen / Unknown 07/15/2023 2:42 PM EDT 07/15/2023 4:10 PM EDT Marline Richard MD LAB BLOOD ORDERABLES Final Res ult [facility] [address] [place] [address] [phone] from Last 3 Months or Most Recently Relevant to Health Maintenance Insurance [facility] Care Teams Knit Tubing Dyer Relationship Specialty Start Date End Date Marline Richard MD [address] [place] [address] PCP - General Family Medicine 04/21/20
--- OUTSIDE RECORDS SUMMARY | 2024-06-16 15:33 | XMS_ITS | Encounter Summary ---
Author Organization [employer] Address [address] [facility] [place] [address] Care Team Providers Care Legal Assistant Name Role Phone Marline Richard MD Primary Care Provider [phone] Encounter Details Date Type Department Care Team ([facility] st Contact Info) Description 06/14/2023 Orders Only [facility] [address] [place] [address] Marline Richard MD [address] [place] [address] Social History Tobacco Use Types Packs/Day Years [...] 1:00 PM EDT Office Visit [facility] [address] [place], [place] [phone] JeffLeslie henry, OD [address] [place] [address] documented as of this encounter Goals Goal [...] documented as of this encounter Care Teams Legal Assistant Relationship Specialty Start Date End Date Marline Richard MD [address] [place], [place] [phone] PCP - General Family Medicine 04/21/20 documented as of this encounter
--- OUTSIDE RECORDS SUMMARY | 2024-06-16 15:33 | XMS_ITS | Encounter Summary ---
Author Organization [employer] Address [address] [facility] [address] [place] [address] Care Team Providers Care Waste Water Worker Name Role Phone Marline Richard MD Primary Care Provider [phone] Encounter Details Date Type Department Care Team (Latest Contact Info) Description 08/18/2023 Orders Only [facility] [address] [place] [address] Marline Richard MD [address] [place] [address] Hypertriglyceridemia (Primary Dx) Social History Tobacco Use [...] 07/21/2024 1:00 PM EDT Office Visit [facility] [address] [place], [place] [phone] Jeff, Leslie, OD [address] [place] [address] documented as of this encounter Goals Goal [...] documented as of this encounter Care Teams Waste Water Worker Relationship Specialty Start Date End Date Marline Richard MD [address] [place] [address] PCP - General Family Medicine 04/21/20 documented as of this encounter
--- OUTSIDE RECORDS SUMMARY | 2024-06-16 15:33 | XMS_ITS | Encounter Summary ---
Author Organization [employer] Address [address] [facility] 7[address] [place] [address] Care Team Providers Care Strategic Partnership Manager Name Role Phone Marline Richard MD Primary Care Provider Reason for Visit * Reason Comments Med Refill Encounter Details Date Type Department Care Team (Late Contact Info) Description 11/20/2022 Refill [facility] [address] [place] [address] Keesha Black MD [address] [place] [address] Social History Tobacco Use Types Packs/Day Years [...] Description 07/21/2024 1:00 PM EDT Office Visit [facility] [address] [place] [address] Leslie Aguilar, OD [address] [place] [address] documented as of this encounter Visit Diagnoses Not on filedocumented in this encounter Additional Health Concerns Assessment Noted Time PHQ-9 Depression Total Score: 5 04/20/19 23 1:08 PM EST documented as of this encounter Care Teams Strategic Partnership Manager Relationship Specialty Start Date End Date Marline Richard MD [address] [place] [address] PCP - General Family Medicine 04/21/20 documented as of this encounter
--- OUTSIDE RECORDS SUMMARY | 2024-06-16 15:33 | XMS_ITS | Encounter Summary ---
Author Organization [employer] Address [address] [facility] 7[address] [place] [address] Care Team Providers Care Wood Heel Cementer Name Role Phone Marline Richard MD Primary Care Provider [phone] Reason for Visit * Reason Onset Date Comments Hospital Follow-up 10/05/2022 Encounter Details Date Type Department Care Team ([facility] st Contact Info) Description 10/05/2022 Telephone [facility] MEDICINE [address] [place] [address] Marline Richard MD [address] [place] [address] Hospital Follow-up Social History Tobacco Use Types [...] a HDF appt. [place] [facility] [place] and discharged on 10/02/22. Pt was diagnosed with hypertensive emergency documented in this encounter Plan of Treatment Upcoming Encounters Date Type Department Care Team (Late st Contact Info) Description 07/21/2024 1:00 PM EDT Office Visit [facility] [address] [place], [place] [phone] Leslie Aguilar, OD [address] [place] [address] documented as of this encounter Visit Diagnoses Not on filedocumented in this encounter Additional Health Concerns Assessment Noted Time PHQ-9 Depression Total Score: 5 04/20/19 23 1:08 PM EST documented as of this encounter Care Teams Wood Heel Cementer Relationship Specialty Start Date End Date Marline Richard MD [address] [place] [address] PCP - General Family Medicine 04/21/20 documented as of this encounter
== END 2024-06-16 14:01 | disposition home or self-care (01) ==
PROVIDERS: PCP General Practice; Visit Provider Urology
DX: E11.69 Type 2 diabetes mellitus with other specified complication (principal); N52.1 Erectile dysfunction due to diseases classified elsewhere
CPT/HCPCS: 99214

== ENCOUNTER → 2024-06-16 12:53 | Outpatient (BNVA) | payer OTHER, SELFPAY | PROVIDERS: PCP General Practice; Visit Provider Urology | DX: E11.69 Type 2 diabetes mellitus with other specified complication (principal); N52.1 Erectile dysfunction due to diseases classified elsewhere | CPT/HCPCS: 99212 ==

== ENCOUNTER 2024-08-24 13:23 | Outpatient (REF) | payer OTHER, SELFPAY ==
--- NOTE | ~2024-08-24 | XR_ITS ---
EXAMINATION: XR KNEE, LEFT CLINICAL INFORMATION: OSTEOARTHRITIS LEFT KNEE COMPARISON: June 03, 2017 TECHNIQUE: AP lateral and sunrise views of the left knee. FINDINGS: Postoperative changes are evident related to below the knee amputation through the proximal diaphysis of the tibia and fibula. Again seen is chondroid matrix in the distal metaphysis of the left femur with rings and arcs. There is amorphous calcification visible in the medial joint space. There is mild narrowing of the medial joint space. Small marginal osteophyte is evident along the medial tibial plateau. Small to medium sized osteophytes are present in the patella and along the medial trochlea. Moderate arterial calcifications are visible. XR/XR knee LT 3V IMPRESSION: Yolmw-fnr-yqwa amputation. Mild osteoarthritis and evidence of CPPD arthropathy. Low-grade chondroid lesion in the distal femur is likely an enchondroma. Peripheral arterial disease. Electronically signed by: Alejandro Menjivar MD 08/24/2024 02:02 PM EDT
--- OUTSIDE RECORDS SUMMARY | 2024-08-24 14:52 | XMS_ITS | Encounter Summary ---
Author Organization [employer] Address [address] [facility] [address] [place] [address] Care Team Providers Care Trouble Dispatcher Name Role Phone Marline Richard MD Primary Care Provider [phone] Reason for Visit * Reason Onset Date Comments Pre-visit Planning 10/30/2023 Encounter Details Date Type Department Care Team ([facility] st Contact Info) Description 10/30/2023 Telephone [facility] MEDICINE [address] [place] [address] Marline Richard MD [address] [place] [address] Pre-visit Planning Social History Tobacco Use Types [...] the past 12 months, has t he [employer], gas, oil or water [employer] threatened to shut off services in your [...] on file documented as of this encounter Goals Goal [...] documented as of this encounter Care Teams Trouble Dispatcher Relationship Specialty Start Date End Date Marline Richard MD [address] [place] [id number] PCP - General Family Medicine 04/21/20 documented as of this encounter
== END 2024-08-24 13:24 | disposition home or self-care (01) ==
LOC: HO.XRAY 13:23
PROVIDERS: PCP General Practice; Visit Provider Physical Medicine & Rehabilitation
DX: M17.12 Unilateral primary osteoarthritis, left knee (principal)
CPT/HCPCS: 73562

== ENCOUNTER → 2024-08-24 13:45 | Outpatient (BNV) | payer OTHER, SELFPAY | PROVIDERS: PCP General Practice; Visit Provider Radiology Diagnostic Radiology | DX: I73.9 Peripheral vascular disease, unspecified (principal) | CPT/HCPCS: 73562 ==

== ENCOUNTER 2024-12-17 09:00 | Outpatient (AMB) | payer OTHER, SELFPAY ==
--- NOTE | 2024-12-17 09:01 | MHC.OFFVIS ---
Intake Visit Reasons: 6M follow up/ PVR Intake Note: Patient is present for 6m f/u Urology Medication:tamsulosin Antibiotic Allergy:none Blood Thinner:aspirin Plate Grainer Apprentice Required: No Accompanied by: Self / Same As Patient Allergies metformin Adverse Reaction (Verified 12/17/24 09:01) Unknown HPI Comments Details: Kingsley is a pleasant male. He is a patient of Dr. Mccullough. He is seen for the following urologic conditions - erectile dysfunction - lower urinary tract symptoms With son who is translating Does have issues with erections Last visit had been placed on injections Given state of diabetes would recommend review of testosterone and initiation of daily low-dose tadalafil for vascular dilatation Erectile dysfunction in setting of diabetes Progressive Insulin-dependent diabetic since 2021 Diabetic since 1999 - microvascular complications with nonhealing also lower extremity, diabetic foot in infection Former cigarette smoker Baseline labs - 12/01 - P 0.8 Good response to TriMix with 45 units in 2022 Lower urinary tract symptoms Tamsulosin PFSH Medical History Uncontrolled hypertension CAD (coronary artery disease) Fluid overload Anemia in ESRD (end-stage renal disease) Anemia PAD (peripheral artery disease) Acute kidney injury superimposed on CKD Hypertension Type 2 diabetes mellitus ESRD (end stage renal disease) CKD (chronic kidney disease) stage 3, GFR 30-59 ml/min Renal artery stenosis Anemia Erectile dysfunction (HFpEF) heart failure with preserved ejection fraction Osteomyelitis CKD stage 3 due to type 2 diabetes mellitus LIVE (iron deficiency anemia) Hyperlipidemia associated with type 2 diabetes mellitus Kidney disease High cholesterol HTN (hypertension) Diabetes Surgical History Status post transmetatarsal amputation of left foot Hx of amputation History of amputation of right forefoot H/O shoulder surgery Family History Other No family history of coronary artery disease Social History Household Members: None Housing: Apartment Do you presently have visiting nurse or other home services: Yes ([employer] ONLY) Alcohol intake: former Comment: previously medicated with IV morphine Patient Tobacco Use Status: Never used Tobacco Tobacco use type: Cigarette Second Hand Smoke Exposure: No Substance Use Type: Crack/Cocaine Advance Directives Date on File: 02/02/22 service: No Current occupational status: retired Review of Systems Const Denies chills and Denies fever(s) Card Reports no additional complaints and Denies syncope Resp Denies cough GI Denies abdominal pain and Denies heartburn Reports as per HPI and Denies change in libido Neuro Denies syncope Psych Denies change in libido Endo Denies change in libido Physical Exam Const General: cooperative, healthy appearing, comfortable and no acute distress Orientation/consciousness: patient oriented x3 HEENT Face and sinus: Yes normal facial exam Mouth: moist mucous membranes Neck Neck: Yes normal visual inspection, Yes full ROM and Yes trachea midline Chest Chest palpation & inspection: normal inspection of the chest Resp Effort & Inspection: normal respiratory effort, able to speak in complete sentences and no respiratory distress GI Inspection: Yes normal to inspection Back/Spine/Pelvis Cervical Spine: normal cervical lordosis Thoracic/Lumbar Spine: thoracic and lumbar spine normal to inspection Skin General skin exam: no rashes or lesions noted Neuro General: patient oriented x3, gait normal, tone normal and moves all extremities Extrem General: Yes normal to inspection and Yes capillary refill normal Assessment & Plan Assessment & Plan (1) Erectile dysfunction associated with type 2 diabetes mellitus: Code(s): E11.69 - Type 2 diabetes mellitus with other specified complication; N52.1 - Erectile dysfunction due to diseases classified elsewhere Category: Medical (2) Benign prostatic hyperplasia: Code(s): N40.0 - Benign prostatic hyperplasia without lower urinary tract symptoms Category: Medical Qualifiers: Lower urinary tract symptom presence: symptoms present Lower urinary tract symptom detail: post-void dribbling Qualified Code(s): N40.1 - Benign prostatic hyperplasia with lower urinary tract symptoms; N39.43 - Post-void dribbling Plan Check hormone level TriMix prescription provided Orders: Orders Testosterone, Free/Total Today E11.69 - Type 2 diabetes mellitus with other specified complication, N52.1 - Erectile dysfunction due to diseases classified elsewhere Lutenizing Hormone Today E11.69 - Type 2 diabetes mellitus with other specified complication, N52.1 - Erectile dysfunction due to diseases classified elsewhere Prostate Specific Antigen Today E11.69 - Type 2 diabetes mellitus with other specified complication, N52.1 - Erectile dysfunction due to diseases classified elsewhere Medications: New euyvxbvxfb-xpwnnffmebf-xwrmmhg 150 mg-5 mg- 50 mcg (Tri-Mix ([id number])) May adjust dosing by 0.05ml to achieve 40 min erection Tri-Mix - Alprostadil/papaverine/phentolamine - [id number]/ml Initial vial 2.5cc 0.25 mL intra-cavernosal ONCE PRN 1 ea 1RF erections 30 days E11.69 - Type 2 diabetes mellitus with other specified complication, N52.1 - Erectile dysfunction due to diseases classified elsewhere tadalafil 5 mg PO DAILY 90 tabs 0RF Bladder stability 90 days N39.43 - Post-void dribbling, N40.1 - Benign prostatic hyperplasia with lower urinary tract symptoms Patient Instructions: This note is constructed using voice recognition software. While every effort has been made to ensure accuracy milling machine tender errors may have been included. Imaging studies, laboratory and physical exam results were discussed and reviewed in detail. No major barriers to patient understanding were identified. An opportunity to ask questions regarding the treatment plan was provided. All questions were answered. The patient expressed understanding and agreement with the above treatment plan. The patient is aware they should contact our office by phone for worsening of their current condition or the appearance of new urologic symptoms. Compliance is encouraged with any medications and followup testing that is ordered. It is a privilege to participate in the urologic care of your patient. If you have any questions or concerns regarding treatment for the above conditions, or other urologic issues, please do not hesitate to contact me. The office telephone contact is [phone]. Sincerely, Dr Edil Montano MD, [facility] - Urology Compassionate Specialist Care for the Genitourinary System Coding Level of Care Code Est Pt Level 4 (74774) Complex EM visit Add On G2211 Diagnoses Erectile dysfunction associated with type 2 diabetes mellitus E11.69; N52.1 Benign prostatic hyperplasia with post-void dribbling N40.1; N39.43 Lower urinary tract symptom presence: symptoms present Lower urinary tract symptom detail: post-void dribbling
== END 2024-12-17 09:27 | disposition home or self-care (01) ==
LOC: HO.HUSH 09:02
PROVIDERS: PCP General Practice; Visit Provider Urology
DX: E11.69 Type 2 diabetes mellitus with other specified complication (principal); N52.1 Erectile dysfunction due to diseases classified elsewhere; N40.1 Benign prostatic hyperplasia with lower urinary tract symptoms; N39.43 Post-void dribbling
CPT/HCPCS: 99214; G2211

== ENCOUNTER 2024-12-17 09:24 | Outpatient (REF) | payer OTHER, SELFPAY ==
[2024-12-17 11:11] LABS: Prostate Specific Antigen 0.71 ng/mL (<0.05-4.0)
[2024-12-26 14:53] LABS: Testosterone, Free 86.7 pg/mL (35.0-155.0)
== END 2024-12-17 09:25 | disposition home or self-care (01) ==
LOC: HO.10HDL 09:24
PROVIDERS: Visit Provider Urology
DX: E11.69 Type 2 diabetes mellitus with other specified complication (principal); N52.1 Erectile dysfunction due to diseases classified elsewhere; N40.1 Benign prostatic hyperplasia with lower urinary tract symptoms; N39.43 Post-void dribbling; Z12.5 Encounter for screening for malignant neoplasm of prostate; Z79.82 Long term (current) use of aspirin; Z79.899 Other long term (current) drug therapy
CPT/HCPCS: 36415; 83002; 84153; 84402; 84403; 99212

== ENCOUNTER 2025-01-04 14:21 | Outpatient (REF) | payer OTHER, SELFPAY ==
--- OUTSIDE RECORDS SUMMARY | 2025-01-04 13:30 | XMS_ITS | Encounter Summary ---
Author Organization [email or web address] Address [address] [place] [address] Care Team Providers Care Ballet Soloist Name Role Phone Marline Richard MD Primary Care Provider [phone] Reason for Referral * Consultation (Routine) - Authorized Specialty Diagnoses / Procedures Referred By Contac t Referred To Contact Pharmacy Diagnoses End stage renal disease on dialysis due to type 2 diabetes mellitus (HCC) Essential hypertension Marline Richard MD [address] [place] [address] Phone: tel: fax: Referral ID Status Reason Start Date Expiration Date Visits Requested Visits Authorized [id number] Authorized Consult and Treat 01/04/2025 01/04/2026 6 6 Reason for Visit * Reason Comments Annual Exam Encounter Details Date Type Department Care Team (Latest Contact Info) Description 01/04/2025 1:30 PM EDT Office Visit [facility] [address], [place] [phone] Marline Richard MD [address], [place] [phone] Erectile dysfunction associated with type 2 diabetes mellitus (HCC) (Primary Dx); Dietary counseling; Exercise counseling; Overweight; End stage renal disease on dialysis due to type 2 diabetes mellitus (HCC); Phantom limb (HCC); Chronic congestive heart failure, unspecified heart failure type (HCC); Moderate nonproliferative diabetic retinopathy of both eyes with macular edema associated with type 2 diabetes mellitus (HCC); Degeneration of intervertebral disc of lumbar region with discogenic back pain and lower extremity pain; Diabetic polyneuropathy associated with type 2 diabetes mellitus (HCC); Essential hypertension; Type 2 diabetes mellitus with chronic kidney disease on chronic dialysis, with long-term current use of insulin (HCC) Social History Tobacco Use Types Packs/Day Years [...] Answer Date Recorded Patient Health Questionnaire-9 Score 6 01/04/2025 Patient Health Questionnaire-9 Score 6 01/04/2025 Last PHQ-9: Questionnaire Data Not on file 1 Housing Stability Answer Date Recorded What is your housing situation today? I have pedrito alvarado 12/28/[address] you li ve. Do you have problems with any of the following? None of the above 12/28/2024 Food Insecurity Answer Date Recorded Within the past 12 months, y ou worried that your food would run out before you got money to buy more: Never True 12/28/2024 Within the past 12 months,th e food you bought just didn't last and you didn't have enough money to get more: Never True Transportation Answer Date Recorded In the past 12 months, has l ack of transportation kept you from medical appts, meetings, work or from getting things needed for daily living? No 12/28/2024 Utilities Answer Date Recorded In the past 12 months, has t he electric, gas, oil or water company threatened to shut off services in your home? No 12/28/2024 Depression Answer Date Recorded Patient Health Questionnaire-2 Score 1 01/04/2025 Internet Access Answer Date Recorded Internet Access Q1 Yes 12/28/2024 Internet Access Q2 Not on file 12/28/2024 Sex and Gender Information Value Date Recorded Sex Assigned at Male 01/08/2022 10:14 AM EDT Legal Sex Male 10:14 AM EDT Gender Identity Male 01/08/2022 10:14 AM EDT Sexual Orientation Straight 01/08/2022 10 :14 AM EDT documented as of this encounter Last Filed Vital Signs Vital Sign Reading Time Taken Comments Blood Pressure 180/80 01/04/2025 1:44 PM EDT Pulse 67 01/04/2025 1:44 PM EDT Temperature 36.2 C (97.1 F) 01/04/2025 1:44 PM EDT Respiratory Rate 20 01/04/2025 1:44 PM EDT Oxygen Saturation 98% 01/04/2025 1:44 PM EDT Inhaled Oxygen Concentration - - Weight 89.3 kg (196 lb 12.8 oz) 01/04/2025 1:44 PM EDT Height 175.3 cm (5' 9 ) 01/04/2025 1:44 PM EDT Body Mass Index 29.06 01/04/2025 1:44 PM EDT documented in this encounter Functional Status * Over the past 2 weeks, how often have you been bothered by any of the following problems? Question Answer Date of Assessment Author Patient Health Questionnaire -2 Score 1 01/04/2025 1:54 PM EDT Esmer Zarate MA * Little interest or pleasure in doing things Answer Date of Assessment Author Several days 01/04/2025 1:54 PM EDT Esmer Zarate MA * Feeling down, depressed, or hopeless Answer Date of Assessment Author Not at all 01/04/2025 1:54 PM EDT Esmer Zarate MA * Trouble falling or staying asleep, or sleeping too much Answer Date of Assessment Author Nearly every day 01/04/2025 1:54 PM EDT Esmer Zarate MA * Feeling tired or having little energy Answer Date of Assessment Author Not at all 01/04/2025 1:54 PM EDT Esmer Zarate MA * Poor appetite or overeating Answer Date of Assessment Author More than half the days 01/04/2025 1:54 PM EDT Esmer Garcia MA * Feeling bad about yourself - or that you are a failure or have let yourself or your family down Answer Date of Assessment Author Not at all 01/04/2025 1:54 PM EDT Esmer Zarate MA * Trouble concentrating on things, such as reading the newspaper or watching television Answer Date of Assessment Author Not at all 01/04/2025 1:54 PM EDT Esmer Zarate MA * Moving or speaking so slowly that other people could have noticed? Or the opposite - being so fidgety or restless that you have been moving around a lot more than usual. Answer Date of Assessment Author Not at all 01/04/2025 1:54 PM EDT Esmer Zarate MA * Thoughts that you would be better off or hurting yourself in some way Answer Date of Assessment Author Not at all 01/04/2025 1:54 PM EDT Esmer Zarate MA * Patient Health Questionnaire-9 Score Answer Date of Assessment Author 6 01/04/2025 1:54 PM EDT Esmer Zarate MA * How difficult have these problems made it for you to do your work, take care of things at home, or get along with other people? Answer Date of Assessment Author Not difficult at all 01/04/2025 1:54 PM EDT Esmer Márquez MA * Over the last 2 weeks, how often have you been bothered by any of the following problems? Question Answer Date of Assessment Author Feeling nervous, anxious, or on edge 0 01/04/2025 1:55 PM EDT Esmer Zarate MA Not being able to stop or co ntrol worrying 0 01/04/2025 1:55 PM EDT Esmer Zarate MA Worrying too much about diff erent things 0 01/04/2025 1:55 PM EDT Esmer Zarate MA Trouble relaxing 0 01/04/2025 1:55 PM EDT Esmer Garcia MA Being so restless that it is hard to sit still 0 01/04/2025 1:55 PM EDT Esmer Zarate MA Becoming easily annoyed or irritable 0 01/04/2025 1:55 PM EDT Esmer Zarate MA Feeling afraid as if somethi ng awful might happen 0 01/04/2025 1:55 PM EDT Esmer Zarate MA BINA-7 Total Score 0 01/04/2025 1:55 PM EDT Esmer Zarate MA documented as of this encounter Progress Notes * Marline Richard MD - 01/04/2025 1:30 PM EDT SUBJECTIVE: Kingsley Rivero is a 69 y.o. male who presents for chronic disease management. Denies recent illness, ER visit, or hospitalization. Acute Concerns: Colon cancer screening due, will re-refer to C Refer to CD for hypertension meds side effects Electric wheelchair broken [place], trip 15 February Chronic Conditions and Plans: Mild osteoarthritis and evidence of CPPD arthropathy. Low-grade chondroid lesion in the distal femur is likely an enchondroma. Peripheral arterial disease 10/2023 vascular visit LES 1.42; Supranormal ankle brachial index due to noncompressible vessels. 2. Heavily calcified plaque in the profunda femoral artery with elevated velocities consistent withhigh-grade stenosis. 3. Elevated velocities in the mid and distal superficial femoral artery consistent with moderate stenosis. 4. Occlusion of the mid to distal posterior tibial artery with monophasic flow in the anterior tibial and peroneal arteries. Cataracts 11/[address] Roberto to Dr Zabala for cataract surgery DM2 CGM in place, will use in dialysis despite lack of FDA approval (with BKA, polyneuropathy, NPDR, CKD5 on dialysis, ED) A1C 8.3 On Tresiba 25 units nightly and meal-time insulin 03/24/24 endo f/u with [facility] Has ongoing care with surgeon and vascular for BKA of left leg )08/24/24) healed well, able to walk on it Has LLE prosthesis in place s/p BKA and walks with a cane Feels somewhat imbalanced at times, but no falls CKD5 On dialysis three times weekly M/W/F Not too tired and sick feeling. 05/2023 AV fistula creation On transplant list ED cannot have PDE5 inhibitors due to use of isosorbide 08/2024 ED follow-up Dr Montano HTN/NSTEMI 130-220s/50-110 per home BP cuff On Hydralazine 100mg TID, Imdur 60mg, Nifedipine 90mg, Losartan 50mg daily 09/21-09/27, admit to [facility] for NSTEMI in the setting of fluid overload, acute hypoxia tx with 2L supp O2 and two days in a row dialysis 10/2023 renal doppler US: no renal artery stenosis seen on US, nor renal abnl HLD Atorvastatin 80mg Vascepa 2mg BID CHF On Lasix BID, Metoprolol BNP 75 (05/2022) Health maintenance Colon- due in 2 years 2024 PSA- 0.48 (08/2022) Imms- due for COVID, will have at dialysis Patient Active Problem List Diagnosis Date Noted Shortness of breath 06/30/2024 Hypertensive heart and chronic kidney disease with heart failure and with stage 5 chronic kidney disease, or end stage renal disease (HCC) 06/29/2024 Pure hypercholesterolemia, unspecified 06/29/2024 Type 2 diabetes mellitus with diabetic peripheral angiopathy without gangrene ([facility]) 06/29/2024 Type 2 diabetes mellitus with other specified complication ([facility]) 06/29/2024 Hemodialysis-associated hypotension 05/19/2024 Postural dizziness with presyncope 10/08/2023 Anemia due to chronic kidney disease, on chronic dialysis ([facility]) (HCC) 10/08/2023 Mild protein-calorie malnutrition ([facility]) 08/21/2023 Allergy, unspecified, initial encounter 08/18/2023 Chest pain, unspecified 08/18/2023 Fever, unspecified 08/18/2023 Hypoglycemia, unspecified 08/18/2023 Pain, unspecified 08/18/2023 Secondary hyperparathyroidism of renal origin ([facility]) 08/18/2023 Encounter for screening for respiratory tuberculosis 08/18/2023 Anemia in chronic kidney disease 08/08/2023 Dependence on renal dialysis ([facility]) 08/08/2023 Heart failure, unspecified ([facility]) 08/08/2023 prison (current) use of oral hypoglycemic drugs 08/08/2023 Long-term (current) use of injectable non-insulin antidiabetic drugs 08/08/2023 Moderate nonproliferative diabetic retinopathy of both eyes with macular edema associated with type2 diabetes mellitus ([facility]) 07/16/2023 Scalp lesion 07/16/2023 Screening for colorectal cancer 07/15/2023 Phantom limb ([facility]) 04/15/2023 Iron deficiency anemia 04/15/2023 End stage renal disease on dialysis due to type 2 diabetes mellitus ([facility]) 04/15/2023 Primary insomnia 03/08/2023 Hyperkalemia 08/20/2022 Exercise counseling 07/27/2022 Below-knee amputation of left lower extremity ([facility]) 04/24/2022 Reduced mobility 04/09/2022 Chronic congestive heart failure ([facility]) 02/15/2022 Nonproliferative diabetic retinopathy ([facility]) 08/21/2021 Type 2 diabetes mellitus with diabetic chronic kidney disease ([facility]) 01/30/2021 Degeneration of lumbar intervertebral disc 06/13/2020 Diabetic polyneuropathy ([facility]) 12/30/2017 Foot pain 12/30/2017 Intermittent claudication ([facility]) 12/30/2017 Chronic back pain 12/14/2014 Erectile dysfunction associated with type 2 diabetes mellitus ([facility]) 12/14/2014 Essential hypertension 12/14/2014 Mixed hyperlipidemia 12/14/2014 Surgical History[1] Social History Social History Narrative Lives alone, daughter is [employer] from 11-3pm Review of Systems Constitutional: Negative. HENT: Negative. Respiratory: Negative. Cardiovascular: Negative. Gastrointestinal: Negative. Musculoskeletal: Positive for back pain. Skin: Negative. Psychiatric/Behavioral: Positive for dysphoric mood. OBJECTIVE: Vitals: 01/04/25 1344 BP: (!) 180/80 BP Location: Right arm Patient Position: Sitting BP Cuff Size: Large adult Pulse: 67 Resp: 20 Temp: 97.1 ??F (36.2 ??C) TempSrc: Oral SpO2: 98% Weight: 196 lb 12.8 oz (89.3 kg) Height: 5' 9 (1.753 m) Physical Exam Vitals reviewed. Constitutional: Appearance: Normal appearance. HENT: Head: Normocephalic and atraumatic. Nose: Nose normal. Cardiovascular: Rate and Rhythm: Normal rate and regular rhythm. Pulses: Normal pulses. Heart sounds: Normal heart sounds. Pulmonary: Effort: Pulmonary effort is normal. Breath sounds: Normal breath sounds. Musculoskeletal: General: Normal range of motion. Cervical back: Normal range of motion and neck supple. Skin: General: Skin is warm and dry. Capillary Refill: Capillary refill takes less than 2 seconds. Neurological: General: No focal deficit present. Mental Status: He is alert and oriented to person, place, and time. Psychiatric: Mood and Affect: Mood normal. Behavior: Behavior normal. ASSESSMENT/PLAN Problem List Items Addressed This Visit Chronic congestive heart failure (HCC) Relevant Medications isosorbide mononitrate ER (Imdur) 60 MG 24 hr tablet Other Relevant Orders T-SPOT??.TB Degeneration of lumbar intervertebral disc Diabetic polyneuropathy (HCC) Erectile dysfunction associated with type 2 diabetes mellitus (HCC) - Primary Essential hypertension Relevant Medications isosorbide mononitrate ER (Imdur) 60 MG 24 hr tablet Other Relevant Orders Referral to Pharmacy CDTM Type 2 diabetes mellitus with diabetic chronic kidney disease (HCC) Relevant Medications glucagon 1 MG injection Exercise counseling Relevant Medications glucagon 1 MG injection Phantom limb (HCC) End stage renal disease on dialysis due to type 2 diabetes mellitus (HCC) Relevant Medications glucagon 1 MG injection Other Relevant Orders Lipid Panel, Standard Hepatitis C Antibody with Reflex to HCV, RNA, Quantitative, Real-Time PCR Referral to Pharmacy CD Moderate nonproliferative diabetic retinopathy of both eyes with macular edema associated with type2 diabetes mellitus (HCC) Relevant Medications brimonidine (AlphaGAN) 0.2 % ophthalmic solution ketorolac (Acular) 0.5 % ophthalmic solution Other Visit Diagnoses Dietary counseling Relevant Medications glucagon 1 MG injection Other Relevant Orders POCT Glucose (Completed) POCT Hgb A1c (Completed) Overweight Relevant Medications glucagon 1 MG injection Follow Up: 4 months or sooner prn Allergies[2] Current Medications[3] Indonesian Translation: Provided by [facility] staff member HERMES Lyman [1] Past Surgical History: Procedure Laterality Date FOOT AMPUTATION THROUGH METATARSAL Right 2019 IR CVC NONTUNNELED 02/12/2023 IR CVC INSERT NON TUNNEL SHOULDER ARTHROSCOPY 2015 TOE AMPUTATION Right 2019 3rd toe UMBILICAL HERNIA REPAIR 2018 [2] Allergies Allergen Reactions Metformin Mirtazapine Hives [3] Current Outpatient Medications: brimonidine (AlphaGAN) 0.2 % ophthalmic solution, PLACE 1 DROP IN THE RIGHT EYE THREE TIMES DAILY, Disp: , Rfl: Embecta Pen Needle Ultrafine 31G X 5 MM [facility], , Disp: , Rfl: glucagon 1 MG injection, USE DIRECTED FOR HYPOGLYCEMIA BG < 55, EMERGENCY USE ONLY, Disp: , Rfl: isosorbide mononitrate ER (Imdur) 60 MG 24 hr tablet, Take 60 mg by mouth in the morning., Disp: , Rfl: ketorolac (Acular) 0.5 % ophthalmic solution, PLACE 1 DROP IN THE RIGHT EYE THREE TIMES DAILY, Disp: , Rfl: albuterol (Ventolin HFA) 108 (90 Base) MCG/ACT inhaler, Inhale 2 puffs every 4 (four) hours if needed for wheezing or shortness of breath., Disp: 18 g, Rfl: 1 aspirin (Aspirin Low Dose) 81 MG chewable tablet, Chew 1 tablet (81 mg) Once per day., Disp: 90 tablet, Rfl: 3 atorvastatin (Lipitor) 80 MG tablet, TAKE 1 TABLET BY MOUTH AT BEDTIME, Disp: 90 tablet, Rfl: 3 Blood Glucose Monitoring Suppl (ONE TOUCH ULTRA 2) w/Device kit, Use to monitor blood glucose threetimes daily, Disp: 1 kit, Rfl: 0 carvedilol (Coreg) 25 MG tablet, TAKE 1 TABLET BY MOUTH TWICE DAILY IN THE MORNING AND IN THE EVENING, Disp: 180 tablet, Rfl: 3 cetirizine (ZyrTEC) 10 MG tablet, Take 1 tablet (10 mg) by mouth Once per day., Disp: 90 tablet, Rfl: 3 cholecalciferol (Vitamin D-3) 25 MCG tablet, TAKE 1 TABLET BY MOUTH EVERY MORNING, Disp: 90 tablet,Rfl: 3 Continuous Blood Gluc Material Handling Technician (FreeStyle Daniel 2 [place]) device, 1 each in the morning., Disp: 1 each, Rfl: 0 Continuous Glucose Sensor (FreeStyle Daniel 2 Sensor) [facility], USE DIRECTED TO TEST BLOOD SUGAR CHANGE EVERY 14 DAYS, Disp: 2 each, Rfl: 11 docusate sodium (Colace) 100 MG capsule, TAKE 1 CAPSULE BY MOUTH AT BEDTIME, Disp: 90 capsule, Rfl:3 fluticasone (Flonase) 50 MCG/ACT nasal spray, USE 2 SPRAYS IN EACH NOSTRIL EVERY MORNING NEEDED,Disp: 48 g, Rfl: 0 gabapentin (Neurontin) 300 MG capsule, TAKE 1 CAPSULE BY MOUTH EVERY MORNING, Disp: 30 capsule, Rfl: 5 hydrALAZINE (Apresoline) 50 MG tablet, TAKE 2 TABLETS BY MOUTH THREE TIMES DAILY IN THE MORNING, EVENING AND BEDTIME, Disp: 180 tablet, Rfl: 11 Icosapent Ethyl (Vascepa) 1 g capsule, TAKE 2 CAPSULES BY MOUTH TWICE DAILY IN THE MORNING AND EVENING, Disp: 120 capsule, Rfl: 5 isosorbide mononitrate ER (Imdur) 120 MG 24 hr tablet, TAKE 1 TABLET BY MOUTH EVERY MORNING DO NOT BREAK, CRUSH, DISSOLVE OR CHEW, Disp: 90 tablet, Rfl: 3 Lancets 33G misc, 1 each at noon and 1 each in the evening. Use to test blood sugar three times a day., Disp: 100 each, Rfl: 11 melatonin 3 MG tablet, TAKE 1 TABLET BY MOUTH AT BEDTIME, Disp: 30 tablet, Rfl: 5 NIFEdipine XL (Procardia XL) 60 MG 24 hr tablet, TAKE 2 TABLETS BY MOUTH ONCE DAILY IN THE MORNING,Disp: , Rfl: omeprazole (PriLOSEC) [address] capsule, Take 1 capsule (40 mg) by mouth before breakfast. Do not crush or chew., Disp: 30 capsule, Rfl: 11 OneTouch Ultra Test test strip, USE DIRECTED TO TEST BLOOD SUGAR THREE TIMES DAILY, Disp: 100 strip, Rfl: 11 sertraline (Zoloft) 50 MG tablet, TAKE 1 TABLET BY MOUTH EVERY MORNING, Disp: 90 tablet, Rfl: 3 tamsulosin (Flomax) 0.4 MG 24 hr capsule, TAKE 1 CAPSULE BY MOUTH EVERY EVENING 30 MINUTOS DESPUES DE LA SPINNER [employer]CR[employer]E PIPE, Disp: 90 capsule, Rfl: 3 Tresiba FlexTouch 100 UNIT/ML injection, Inject 25 Units under the skin at bedtime., Disp: 10 mL, Rfl: 3 documented in this encounter Plan of Treatment Scheduled Orders Name Type Priority Associated Diagnoses Orde r Schedule Hepatitis C Antibody with Reflex to HCV, RNA, Quantitative, Real-Time PCR Lab Routine End stage renal disease on dialysis due to type 2 diabetes mellitus (HCC) Expected: 01/04/2025, Expires: 01/04/2026 T-SPOT .TB Lab Routine Chronic congestive heart failure, unspecified heart failure type (HCC) Expected: 01/04/2025 (Approximate), Expires: 01/04/2026 Scheduled Referrals Name Type Priority Associated Diagnoses Orde r Schedule Referral to Pharmacy CDTM Outpatient Referral Routine End stage renal disease on dialysis due to type 2 diabetes mellitus (HCC) Essential hypertension Ordered: 01/04/2025 documented as of this encounter Goals Goal Patient Goal Type Associated Problems Recent Progress Patient-Stated? Author Blood Pressure < 140/90 Blood Pressure 180/80(2024 1:44 PM EDT) No Deandre Cordon Hemoglobin A1c < 7 Result Component 8.3( 1:50 PM EDT) No Deandre Cordon documented as of this encounter Procedures Procedure Name Priority Date/Time Associated Diagnosis Comments LIPID PANEL, STANDARD Routine 01/04/2025 2:26 PM EDT End stage renal disease on dialysis due to type 2 diabetes mellitus (HCC) POCT GLYCATED HEMOGLOBIN, TOTAL Routine 01/04/2025 1:50 PM EDT Dietary counseling POCT GLUCOSE Routine 01/04/2025 1:45 PM EDT Dietary counseling documented in this encounter Results * (ABNORMAL) Lipid Panel, Standard (01/04/2025 2:26 PM EDT) Triglycerides 212(H) <150 mg/dL [facility] Comment:Desirable Triglyceri de: less than 150 mg/dLBorderline High Triglyceride 150-199 mg/dLHigh Triglyceride: 200-499 mg/dLVery High Triglyceride: greater than or equal to 5OO mg/dL Cholesterol 105 <200 mg/dL [facility] Comment:Desirable Cholestero l: less than 200 mg/dLBorderline High Cholesterol: 200-239 mg/dLHigh Cholesterol: greater than 239 mg/dL LDL Cholesterol Calculated 31 <100 mg/dL [facility] Comment:Desirable LDL: less than 100 mg/dLNear Optimal/Above Optimal LDL: 110- 129 mg/dLBorderline High LDL: 130-159 mg/dLHigh LDL: 160-189 mg/dLVery High LDL: greater than or equal to 190 mg/dL HDL Cholesterol 32(L) >40 mg/dL [facility] Comment:Desirable HDL: great er than 40 mg/dL Note: This HDL assay may give artificially low results in patients with liver disease. Blood Venous blood specimen / Unknown 01/04/2025 2:26 PM EDT 01/04/2025 4:07 PM EDT us Marline Richard MD LAB BLOOD ORDERABLES Final Res ult [facility] [address] [place] [address] [phone] * (ABNORMAL) POCT Hgb A1c (01/04/2025 1:50 PM EDT) Hemoglobin A1C 8.3(A) 4.0 - 5.7 % QC Media Lot # [id number] Lot# Expiration Date 5,027 Blood 01/04/2025 1:50 PM EDT Marline Richard MD POINT OF CARE TEST ENTER/EDIT ORDERABLES Final Result * (ABNORMAL) POCT Glucose (01/04/2025 1:45 PM EDT) Glucose Blood, POC 274(A) 60 - 200 mg/dL QC Media Lot # [id number] Lot# Expiration Date 3,026 Blood Capillary blood specimen / Unknown 01/04/2025 1:45 PM EDT Marline Richard MD POINT OF CARE TEST ENTER/EDIT ORDERABLES Final Result documented in this encounter Visit Diagnoses Diagnosis Erectile dysfunction associated with type 2 diabetes mellitus (HCC)- Primary Type II or unspecified type diabetes mellitus without mention of complication, not stated as uncontrolled Dietary counseling Dietary surveillance and counseling Exercise counseling Overweight End stage renal disease on dialysis due to type 2 diabetes mellitus (HCC) Phantom limb (HCC) Phantom limb (syndrome) Chronic congestive heart failure, unspecified heart failure type (HCC) Moderate nonproliferative diabetic retinopathy of both eyes with macular edema associated with type 2 diabetes mellitus (HCC) Degeneration of intervertebral disc of lumbar region with discogenic back pain and lower extremity pain Diabetic polyneuropathy associated with type 2 diabetes mellitus (HCC) Essential hypertension Unspecified essential hypertension Type 2 diabetes mellitus with chronic kidney disease on chronic dialysis, with long-term current use of insulin (HCC) documented in this encounter Additional Health Concerns Assessment Noted Time PHQ-9 Depression Total Score: 6 01/05/20 25 1:54 PM EDT documented as of this encounter Care Teams Ballet Soloist Relationship Specialty Start Date End Date Marline Richard MD [address] [place] [address] PCP - General Family Medicine 04/21/20 documented as of this encounter
[2025-01-04 16:33] LABS: Cholesterol 105 mg/dL (<200); HDL Cholesterol 32 mg/dL (>40); Triglycerides 212 mg/dL (<150)
--- OUTSIDE RECORDS SUMMARY | 2025-01-04 17:59 | XMS_ITS | Data Portability ---
Author Organization [facility] Address [address] [place] [address] Care Team Providers Care Model Engine Mechanic Name Role Phone Unavailable OTHER HIM CCA OTHER Assessment Encounter Date Assessment Date Assessment LastModified by Organization Details LastModified Time 03/22/2022 03/22/2022 I have reviewed and agree with the Assessment and Plan as documented by the Chief Guard. I provided real-time medical direction via phone [...] Assessment and Plan as documented by the Chief Guard. Patient given the opportunity to ask questions. Our service contacted for an assessment of: Feeling unwell after hemodialysis As per above, patient usually on a Saturday schedule for hemodialysis. States that his regimen and regular scheduled dates were changed to this week on Saturday, Saturday, Saturday to accommodate the Thanksgiving holiday. He does state that fluid was removed [...] but is anuric at baseline now. Per medical insurance coding specialist on the scene, vital signs show that he is orthostatic. He is not tachycardic at baseline. His mentation is within normal limits. Impression implant: Likely hypotension related to fluid shifts after change in hemodialysis schedule. Asked him to follow-up tomorrow with his control and recovery combat rescue at his hemodialysis center. Encourage p.o. intake. 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 Not Available Not Available No t [...] Not Available Not Available Not Available FreeStyle [place] Lite kit USE TO TEST BLOOD SUGAR [...] Available No t Available Vitals Date Recorded Respiratory rate Body temperature Oxygen saturation Oxygen saturation in Arterial blood by Pulse oximetry Heart rate Systolic And Diastolic Provider Name and Address Organization Details Last Updated DateTime 3 18 /min 98.3 [degF] 98 % 98 % 86 /min 148/88 mm[Hg] Not Available [facility] 3 11:12:30 Date Recorded Oxygen saturation Oxygen saturation in Arterial blood by Pulse oximetry Body temperature Respiratory rate Heart rate Systolic And Diastolic Provider Name and Address Organization Details Last Updated DateTime 4 99 % 99 % 99.3 [degF] 18 /min 58 /min 100/55 mm[Hg] Not Available [facility] 4 15:13:38 Date Recorded Oxygen saturation Oxygen saturation in Arterial blood by Pulse oximetry Body temperature Heart rate Respiratory rate Systolic And Diastolic Provider Name and Address Organization Details Last Updated DateTime 3 99 % 99 % 98.4 [degF] 79 /min 16 /min 124/55 mm[Hg] Not Available [facility] 3 19:28:13 Social History None recorded. Functional Status None recorded. Mental Status None recorded. Family History Nothing Reported. Medical History No medical history recorded. Past Encounters Encounter ID Performer Location Encounter Start Date Encounter Closed Date Diagnosis/Indication Diagnosis SNOMED-CT Code Diagnosis ICD10 Code Diagnosis IMO Codes Diagnosis Note [id number] Ned López MD [facility] [address] [place] [address] [phone] 03/22/2022 11:12:28 03/27/2022 11:25:26 Foot pain 00628515 M79.673 [id number] Michael Thacker MD [facility] [address] [place] [address] [phone] 02/19/2023 19:28:08 02/20/2023 13:35:32 Viral upper respiratory tract infection 929767141 J06.9 [id number] Marjan Dale MD [facility] [address] [place] [address] [phone] 02/03/2024 15:13:32 02/03/2024 21:25:25 End stage renal failure on dialysis 878122354 N18.6 Health Concerns Section Related Observation LastModified by Organization Detai ls LastModified Time None Recorded Concern Status LastModified by Organization Details LastModified Time None Recorded Advance Directives Directive None Recorded Payers Insurance Date Sequence Insurance Name Policy Number Policy Lazo Covered Member ID Lazo Member ID Guarantor Name 02/18/2023 1 [facility] - DOS PRIOR TO 2022 - DUAL ELIGIBLE (MEDICARE REPLACEMENT/ADV ANTAGE - HMO) Kingsley Johnson [id number] Kingsley Johnson 02/13/2024 1 [facility] - DOS ON OR AFTER 2022 - DUAL ELIGIBLE - [employer] OPTIONS AND ONE CARE (MEDICARE REPLACEMENT/ADV ANTAGE - HMO) Kingsley Johnson [id number] Kingsley Johnson Notes Date Note Type Note [...] ................... ................... ................... ................... ................... ................... ........ Chief Guard Note: Pt states he has part of [...] surgeon but he would not give more. [facility] [place]. Pt given 15mg IM toradol. Red flags discussed ................... ................... ................... ................... ................... ................... ................... ........ Disposition: Fulfilled Ned López MD [address] [facility],[address], [place], [phone], [facility] 03/27/2022 10:09:04 02/19/2023 text/html HPI: Hx CKD [...] CHUYITA---- 02/18 5:08p call to member via Placement Coordinator [id number], as we can not see member this evening due to capacity, no answer and VM left to call back, will place on the schedule for tomorrow 02/19- A.Manfred ................... ................... ................... ................... ................... ................... ................... ........ Chief Guard Note From Rojelio Rendon: Pt reports 5 days of URI symptoms of dry cough not feeling well and nasal congestion. Denies any fever chills denies any N/VD denies any sob denies any pain. Reports that he has been feeling better days and symptoms are improving. On scene vs taken and Covid flu done [facility] was called and cleared. ................... ................... ................... ................... ................... ................... ................... ........ Disposition: Fulfilled Michael Thacker MD [address] [facility],[address], [place], [phone], [facility] 02/19/2023 23:36:12 02/03/2024 text/html HPI: Patient on [...] ................... ................... ................... ................... ................... ................... ........ Chief Guard Note From Serge Cordova: Dispatched to above [...] has been taking his medications as directed. [facility] consulted. Pt informed of re flags and when to seek further medical attention. Pt found seated in wheel chair speaking in full clear sentences with no signs of distress. AO and GCS-15. PERRL. Skin P/W/D. Airway open and lung sounds clear in all stephenson. ABD soft non tender. Rest exam unremarkable. ................... ................... ................... ................... ................... ................... ................... ........ [facility] Consulted: Marjan Dale ................... ................... ................... ................... ................... ................... ................... ........ Disposition: Fulfilled Marjan Dale MD [address] [place] [address],[address], [place], [phone], [facility] 02/03/2024 20:08:16
--- OUTSIDE RECORDS SUMMARY | 2025-01-04 17:59 | XMS_ITS | Encounter Summary ---
Author Organization [employer] Address [address] [facility] [address] [place] [address] Care Team Providers Care Line Leader Name Role Phone Marline Richard MD Primary Care Provider [phone] Reason for Visit * Reason Comments Med Refill Encounter Details Date Type Department Care Team ([facility] Contact Info) Description 02/14/2023 Refill [facility] [address] [place], [place] [phone] Marline Richard MD [address] [place] [address] Social History Tobacco Use Types Packs/Day Years [...] documented as of this encounter Care Teams Line Leader Relationship Specialty Start Date End Date Marline Richard MD [address] [place] [address] PCP - General Family Medicine 04/21/20 documented as of this encounter
--- OUTSIDE RECORDS SUMMARY | 2025-01-04 17:59 | XMS_ITS | Encounter Summary ---
Author Organization [employer] Address [address] [place] [address] Care Team Providers Care Tree Worker Name Role Phone Marline Richard MD Primary Care Provider [phone] Reason for Visit * Reason Comments Med Refill Encounter Details Date Type Department Care Team ([facility] Contact Info) Description 08/16/2023 Refill [facility] [address] [place], [place] [phone] Marline Richard MD [address] [place], [place] [phone] Type 2 diabetes mellitus with chronic kidney [...] 140/90 Blood Pressure 180/80(2024 1:44 PM EDT) Deandre Acosta Hemoglobin A1c < 7 Result Component 8.3( 1:50 PM EDT) No Deandre Cordon documented as of this encounter Visit Diagnoses Diagnosis Type 2 diabetes mellitus with chronic kidney disease, with long-term current use of insulin, unspecified CKD stage (HCC) documented in this encounter Additional Health Concerns Assessment Noted Time PHQ-9 Depression Total Score: 0 08/02/19 24 1:47 PM EDT documented as of this encounter Care Teams Tree Worker Relationship Specialty Start Date End Date Marline Richard MD [address] [place] [address] PCP - General Family Medicine 04/21/20 documented as of this encounter
--- OUTSIDE RECORDS SUMMARY | 2025-01-04 17:59 | XMS_ITS | Clinical Summary ---
Author Organization [facility] Address [address] [facility] [address] [place] [address] Phone Care Team Providers Care Guest Relations Manager Name Role Phone Lizy Soria NP Primary Care Provider [phone] Allergies Active Allergy Reactions Criticality Noted Date [...] Encounters Date Type Department Care Team Description 01/04/2025 Treatment [facility] [address] [phone] Bernardo Christie MD End stage renal disease; Dependence on renal dialysis 12/28/2024 [facility] [address] [facility] [address] [place] [address] Bernardo Christie MD End stage renal disease; Dependence on renal dialysis 12/21/2024 Treatment [facility] [address] [phone] Bernardo Christie MD End stage renal disease; Dependence on renal dialysis 12/14/2024 Treatment [facility] [address] [phone] Bernardo Christie MD End stage renal disease; Dependence on renal dialysis 11/30/2024 Treatment [facility] [address] [phone] Bernardo Christie MD End stage renal disease; Dependence on renal dialysis 11/25/2024 Treatment [facility] [address] [phone] Bernardo Christie MD End stage renal disease; Dependence on renal dialysis 11/16/2024 Treatment [facility] [address] [phone] Bernardo Christie MD End stage renal disease; Dependence on renal dialysis 11/11/2024 Treatment [facility] [address] [phone] Bernardo Christie MD End stage renal disease; Dependence on renal dialysis 11/02/2024 Treatment [facility] [address] [phone] Bernardo Christie MD End stage renal disease; Dependence on renal dialysis 10/26/2024 Treatment [facility] [address] [phone] Bernardo Christie MD End stage renal disease; Dependence on renal dialysis 10/14/2024 Orders Only [facility] [address] [phone] Bernardo Christie MD 10/12/2024 Treatment [facility] [address] [phone] Bernardo Christie MD End stage renal disease; Dependence on renal dialysis 10/05/2024 Treatment [facility] [place] [address] [place] [phone] Bernardo Christie MD End stage renal disease; Dependence on renal dialysis from Last 3 Months Immunizations Immunization Administration Dates Next Due Hepatitis B 12/14/2014,05/12/2014,02/15/2014 [...] Visual Foot Exam 04/11/2020 Influenza Vaccine (#1) 2024 , 01/09/2021, 12/25/2019, Additional history exists Diabetes: Hemoglobin A1C 03/11/2025 025, 09/09/2024, 06/10/2024, Additional history exists Pneumococcal Vaccine: 50+ Years Completed 12/19/2021, 08/04/2012, 02/15/2005 Pneumococcal Vaccine: Peds ( 0 to 5 Years) and At-Risk Patients (6 to 49 Years) Discontinued 12/19/2021, 08/04/2012, 02/15/2005 Procedures Procedure Name Priority Date/Time Associated Diagnosis Comments HEMOGLOBIN AND HEMATOCRIT, BLOOD Routine 12/23/2024 3:00 AM EDT [facility] (HC) Routine 12/21/2024 3:00 AM EDT CALCIUM, ADJUSTED W ALBUMIN Routine 12/21/2024 3:00 AM EDT TRANSFERRIN SATURATION Routine 3:00 AM EDT PROTEIN, TOTAL, SERUM Routine 12/09/2024 3:00 AM EDT MAGNESIUM Routine 12/09/2024 3:00 AM EDT LIPID PANEL Routine 12/09/2024 3:00 AM EDT ELECTROLYTE PANEL Routine 12/09/2024 3:0 0 AM EDT LIH (HC) Routine 12/09/2024 3:00 AM EDT LACTATE DEHYDROGENASE Routine 12/09/2024 3:00 AM EDT GLUCOSE, RANDOM Routine 12/09/2024 3:00 AM EDT CREATININE, SERUM Routine 12/09/2024 3:0 0 AM EDT BILIRUBIN, TOTAL Routine 12/09/2024 3:00 AM EDT AST Routine 12/09/2024 3:00 AM EDT BUN/CREATININE RATIO Routine 12/09/2024 3:00 AM EDT ALKALINE PHOSPHATASE Routine 12/09/2024 3:00 AM EDT ALT Routine 12/09/2024 3:00 AM EDT CALCIUM PHOSPHORUS PRODUCT, ADJUSTED (HC) Routine 12/09/2024 3:00 AM EDT PTH, INTACT Routine 12/09/2024 3:00 AM EDT FERRITIN Routine 12/09/2024 3:00 AM EDT HEMOGLOBIN A1C Routine 12/09/2024 3:00 AM EDT CBC AND DIFFERENTIAL Routine 12/09/2024 3:00 AM EDT KT/V NATURAL LOG, URR (HC) Routine 12/09/2024 3:00 AM EDT HEMOGLOBIN AND HEMATOCRIT, BLOOD Routine 11/25/2024 3:00 AM EDT LIH (HC) Routine 11/20/2024 3:00 AM EDT PHOSPHATE ( PHOSPHORUS) Routine 11/20/2024 3:00 AM EDT HEMOGLOBIN Routine 11/18/2024 3:00 AM EDT FERRITIN Routine 11/11/2024 3:00 AM EDT PROTEIN, TOTAL, SERUM Routine 11/11/2024 3:00 AM EDT TRANSFERRIN SATURATION Routine 3:00 AM EDT MAGNESIUM Routine 11/11/2024 3:00 AM EDT ELECTROLYTE PANEL Routine 11/11/2024 3:0 0 AM EDT LIH (HC) Routine 11/11/2024 3:00 AM EDT GLUCOSE, RANDOM Routine 11/11/2024 3:00 AM EDT LACTATE DEHYDROGENASE Routine 11/11/2024 3:00 AM EDT BILIRUBIN, TOTAL Routine 11/11/2024 3:00 AM EDT BUN/CREATININE RATIO Routine 11/11/2024 3:00 AM EDT CREATININE, SERUM Routine 11/11/2024 3:0 0 AM EDT AST Routine 11/11/2024 3:00 AM EDT ALKALINE PHOSPHATASE Routine 11/11/2024 3:00 AM EDT ALT Routine 11/11/2024 3:00 AM EDT CALCIUM PHOSPHORUS PRODUCT, ADJUSTED (HC) Routine 11/11/2024 3:00 AM EDT CBC AND DIFFERENTIAL Routine 11/11/2024 3:00 AM EDT KT/V NATURAL LOG, URR (HC) Routine 11/11/2024 3:00 AM EDT HEMOGLOBIN AND HEMATOCRIT, BLOOD Routine 10/28/2024 3:00 AM EDT PROTEIN, TOTAL, SERUM Routine 10/14/2024 3:00 AM EDT TRANSFERRIN SATURATION Routine 3:00 AM EDT MAGNESIUM Routine 10/14/2024 3:00 AM EDT LIH (HC) Routine 10/14/2024 3:00 AM EDT ELECTROLYTE PANEL Routine 10/14/2024 3:0 0 AM EDT LACTATE DEHYDROGENASE Routine 10/14/2024 3:00 AM EDT GLUCOSE, RANDOM Routine 10/14/2024 3:00 AM EDT CREATININE, SERUM Routine 10/14/2024 3:0 0 AM EDT BUN/CREATININE RATIO Routine 10/14/2024 3:00 AM EDT BILIRUBIN, TOTAL Routine 10/14/2024 3:00 AM EDT AST Routine 10/14/2024 3:00 AM EDT ALKALINE PHOSPHATASE Routine 10/14/2024 3:00 AM EDT ALT Routine 10/14/2024 3:00 AM EDT CALCIUM PHOSPHORUS PRODUCT, ADJUSTED (HC) Routine 10/14/2024 3:00 AM EDT FERRITIN Routine 10/14/2024 3:00 AM EDT KT/V NATURAL LOG, URR (HC) Routine 10/14/2024 3:00 AM EDT CBC AND DIFFERENTIAL Routine 10/14/2024 3:00 AM EDT HEMOGLOBIN Routine 10/07/2024 3:00 AM EDT from Last 3 Months Results * (ABNORMAL) Hemoglobin and hematocrit (12/23/2024 3:00 AM EDT) Only the most recent of3 resultswithin the time period is included. Hgb 10.5(L) 13.7 - 17.5 g/dL [facility] Hematocrit 32.3(L) 40.1 - 51.0 % [facility] Hemoglobin x 3 31.5(L) 41.1 - 52.5 g/dL [facility] 12/23/2024 3:00 AM EDT 12/24/2024 1:02 PM EDT us Bernardo Christie MD LAB BLOOD ORDERABLES Final Resul t Performing Organization Address City/[facility]/ZIP Co de Phone Number APS [facility] [address] [place] [address] * LIH (12/21/2024 3:00 AM EDT) Only the most recent of5 resultswithin the time period is included. Lipemia Normal Normal [facility] Icterus Normal Normal [facility] Hemolysis Normal Normal [facility] 12/21/2024 3:00 AM EDT 12/22/2024 1:37 PM EDT us Bernardo Christie MD LAB [id number] ICITED RESULTS Final Result Performing Organization Address City/[facility] Co de Phone Number [facility] [address] [place] [address] * Calcium, Adjusted w Albumin (12/21/2024 3:00 AM EDT) Calcium 8.7 8.6 - 10.3 mg/dL [facility] Albumin 4.4 3.6 - 5.4 g/dL [facility] Calcium, Adjusted Total 8.7 8.6 - 10.3 mg/dL [facility] 12/21/2024 3:00 AM EDT 12/22/2024 1:37 PM EDT us Bernardo Christie MD LAB BLOOD ORDERABLES Final Resul t Performing Organization Address City/[facility]/ZIP Co de Phone Number [facility] [address] [place] [address] * (ABNORMAL) Kt/V Natural Log, URR (12/09/2024 3:00 AM EDT) Only the most recent of3 resultswithin the time period is included. Treatment Time 215 min [facility] Pre-Weight, lb 86.0 kg [facility] Post-Weight, lb 82.0 kg [facility] Ultrafiltration Rate 14(H) <=13 mL/kg/hr [facility] Comment: Recommend achieving Ultrafiltration Rate (UFR) <=10 mL/kg/hr References: Nora REYES et al. Kidney Int. 2010; 79(2):250-257 BUN 61(H) 7 - 25 mg/dL [facility] BUN Post Dialysis 16 7 - 25 mg/dL [facility] UREA REDUCTION RATIO (%) 74 >=65 % [facility] Kt/V Natural Log 1.60 >=1.2 [facility] 12/09/2024 3:00 AM EDT 12/10/2024 1:47 PM EDT us Bernardo Christie MD LAB [id number] ICITED RESULTS Final Result Performing Organization Address City/[facility] Co de Phone Number [facility] [address] [place] [address] * Calcium Phosphorus Product, Adjusted (12/09/2024 3:00 AM EDT) Only the most recent of3 resultswithin the time period is included. Albumin 4.1 3.6 - 5.4 g/dL [facility] Calcium 9.2 8.6 - 10.3 mg/dL [facility] Phosphorus, Serum 4.3 2.5 - 5.0 mg/dL [facility] Ca*PO4 39.6 <55.0 mg2/dL2 [facility] Calcium, Adjusted Total 9.2 8.6 - 10.3 mg/dL [facility] CA*PO4 CORRCTD 39.6 <55.0 mg2/dL2 [facility] 12/09/2024 3:00 AM EDT 12/10/2024 1:47 PM EDT us Bernardo Christie MD LAB [id number] ICITED RESULTS Final Result Performing Organization Address [facility] de Phone Number [facility] [address] [place] [address] * BUN/CREATININE RATIO (12/09/2024 3:00 AM EDT) Only the most recent of3 resultswithin the time period is included. BUN/Creatinine Ratio 8.5 <=23.0 [facility] 12/09/2024 3:00 AM EDT 12/10/2024 1:47 PM EDT us Bernardo Christie MD LAB [id number] ICITED RESULTS Final Result Performing Organization Address [facility] de Phone Number [facility] [address] [place] [address] * (ABNORMAL) TSAT (12/09/2024 3:00 AM EDT) Only the most recent of3 resultswithin the time period is included. Iron 122 65 - 175 ug/dL [facility] Transferrin 159(L) 215 - 365 mg/dL [facility] TIBC 223 211 - 406 ug/dL [facility] Iron Saturation (TSat) 55(H) 22 - 52 % [facility] 12/09/2024 3:00 AM EDT 12/10/2024 1:47 PM EDT us Bernardo Christie MD LAB BLOOD ORDERABLES Final Resul t Performing Organization Address [facility] de Phone Number [facility] [address] [place] [address] * (ABNORMAL) CBC and Differential (12/09/2024 3:00 AM EDT) Only the most recent of3 resultswithin the time period is included. DIFFERENTIAL MANUAL, 2 Not Indicated [facility] White Blood Cells 7.5 4.2 - 9.1 K/uL [facility] RBC 3.14(L) 4.63 - 6.08 M/uL [facility] Hgb 10.3(L) 13.7 - 17.5 g/dL [facility] Hemoglobin x 3 30.9(L) 41.1 - 52.5 g/dL [facility] Hematocrit 31.7(L) 40.1 - 51.0 % [facility] MCV 101.0(H) 79.0 - 92.2 fL [facility] MCH 32.8(H) 25.7 - 32.2 pg [facility] MCHC 32.5 32.3 - 36.5 g/dL [facility] RDW 13.9 11.6 - 14.4 % [facility] Platelets 188 163 - 337 K/uL [facility] MPV 11.9 9.1 - 13.0 fL [facility] Neutrophils Relative 58.3 34.0 - 67.9 % [facility] Lymphocytes Relative 27.3 21.8 - 53.1 % [facility] Monocytes 10.2 5.3 - 12.2 % [facility] Eosinophils Relative 3.1 0.8 - 7.0 % [facility] Basophils Relative 0.7 0.2 - 1.2 % [facility] Immature Granulocytes 0.4 0.0 - 1.0 % [facility] 12/09/2024 3:00 AM EDT 12/10/2024 2:02 PM EDT us Bernardo Christie MD LAB BLOOD ORDERABLES Final Resul t Performing Organization Address City/[facility] Co de Phone Number [facility] [address] [place] [address] * ALT (12/09/2024 3:00 AM EDT) Only the most recent of3 resultswithin the time period is included. ALT (SGPT) 21 10 - 49 U/L [facility] 12/09/2024 3:00 AM EDT 12/10/2024 1:47 PM EDT us Bernardo Christie MD LAB BLOOD ORDERABLES Final Resul t Performing Organization Address City/[facility] Co de Phone Number [facility] [address] [place] [address] * AST (12/09/2024 3:00 AM EDT) Only the most recent of3 resultswithin the time period is included. AST (SGOT) 19 <34 U/L [facility] 12/09/2024 3:00 AM EDT 12/10/2024 1:47 PM EDT us Bernardo Christie MD LAB BLOOD ORDERABLES Final Resul t Performing Organization Address City/[facility] Co de Phone Number [facility] [address] [place] [address] * Protein, total (12/09/2024 3:00 AM EDT) Only the most recent of3 resultswithin the time period is included. Total Protein 7.0 6.4 - 8.9 g/dL [facility] 12/09/2024 3:00 AM EDT 12/10/2024 1:47 PM EDT us Bernardo Christie MD LAB BLOOD ORDERABLES Final Resul t Performing Organization Address [facility] de Phone Number [facility] [address] [place] [address] * (ABNORMAL) Alkaline phosphatase (12/09/2024 3:00 AM EDT) Only the most recent of3 resultswithin the time period is included. Alkaline Phosphatase 215(H) 46 - 116 U/L [facility] 12/09/2024 3:00 AM EDT 12/10/2024 1:47 PM EDT us Bernardo Christie MD LAB BLOOD ORDERABLES Final Resul t Performing Organization Address [facility] Co de Phone Number [facility] [address] [place] [address] * PTH, Intact (12/09/2024 3:00 AM EDT) PTH, Intact 603 160 - 721 pg/mL [facility] Comment: Suggested (KDIGO) ESRD maintenance range is two to nine times the upper normal limit (80.1 pg/mL) for the laboratory. 12/09/2024 3:00 AM EDT 12/10/2024 1:47 PM EDT us Bernardo Christie MD LAB BLOOD ORDERABLES Final Resul t Performing Organization Address [facility] de Phone Number [facility] [address] [place] [address] * (ABNORMAL) Magnesium (12/09/2024 3:00 AM EDT) Only the most recent of3 resultswithin the time period is included. Magnesium 1.8(L) 1.9 - 2.7 mg/dL [facility] 12/09/2024 3:00 AM EDT 12/10/2024 1:47 PM EDT us Bernardo Christie MD LAB BLOOD ORDERABLES Final Resul t Performing Organization Address [facility] de Phone Number [facility] [address] [place] [address] * Lactate dehydrogenase (12/09/2024 3:00 AM EDT) Only the most recent of3 resultswithin the time period is included. LDH 229 120 - 246 U/L [facility] 12/09/2024 3:00 AM EDT 12/10/2024 1:47 PM EDT us Bernardo Christie MD LAB BLOOD ORDERABLES Final Resul t Performing Organization Address [facility] de Phone Number [facility] [address] [place] [address] * (ABNORMAL) Hemoglobin A1c (12/09/2024 3:00 AM EDT) Hemoglobin A1C 8.0(H) <5.7 % [facility] Comment: Methodology: Enzymatic Normal: <5.7% Prediabetes: 5.7-6.4% Diabetes: >6.4% Diabetic Glucose Control Evaluation: Therapeutic action suggested at >8.0% ADA recommends a glycemic goal of <7.0% 12/09/2024 3:00 AM EDT 12/10/2024 2:02 PM EDT us Bernardo Christie MD LAB BLOOD ORDERABLES Final Resul t Performing Organization Address City/[facility] Co de Phone Number [facility] [address] [place] [address] * (ABNORMAL) Glucose, random (12/09/2024 3:00 AM EDT) Only the most recent of3 resultswithin the time period is included. Glucose 250(H) 70 - 99 mg/dL [facility] Comment: ADA guidelines outline the following fasting glucose ranges: Normal: <100 Prediabetes: 100-125 Diabetes: >125 12/09/2024 3:00 AM EDT 12/10/2024 1:47 PM EDT us Bernardo Christie MD LAB BLOOD ORDERABLES Final Resul t Performing Organization Address [facility] de Phone Number [facility] [address] [place] [address] * (ABNORMAL) Ferritin (12/09/2024 3:00 AM EDT) Only the most recent of3 resultswithin the time period is included. Ferritin 1,075(H) 22 - 322 ng/mL [facility] 12/09/2024 3:00 AM EDT 12/10/2024 1:47 PM EDT us Bernardo Christie MD LAB BLOOD ORDERABLES Final Resul t Performing Organization Address [facility] de Phone Number [facility] [address] [place] [address] * (ABNORMAL) Creatinine, serum (12/09/2024 3:00 AM EDT) Only the most recent of3 resultswithin the time period is included. Creatinine 7.17(H) 0.70 - 1.30 mg/dL [facility] 12/09/2024 3:00 AM EDT 12/10/2024 1:47 PM EDT us Bernardo Christie MD LAB BLOOD ORDERABLES Final Resul t Performing Organization Address City/[facility] Co de Phone Number [facility] [address] [place] [address] * Bilirubin, total (12/09/2024 3:00 AM EDT) Only the most recent of3 resultswithin the time period is included. Total Bilirubin 0.3 0.3 - 1.2 mg/dL [facility] 12/09/2024 3:00 AM EDT 12/10/2024 1:47 PM EDT us Bernardo Christie MD LAB BLOOD ORDERABLES Final Resul t Performing Organization Address [facility] de Phone Number [facility] [address] [place] [address] * (ABNORMAL) Lipid panel (12/09/2024 3:00 AM EDT) Cholesterol 86 mg/dL [facility] Comment: Optimal: <200 Borderline: 200-239 High Risk: >239 Triglycerides 184(H) mg/dL [facility] Comment: Optimal: <150 Borderline: 150-200 High Risk: >200 HDL 26(L) mg/dL [facility] Comment: Optimal: >59 Borderline: 40-59 High Risk: <40 LDL-Calc 23 mg/dL [facility] Comment: Optimal: <100 Borderline: 100-159 High Risk: >159 VLDL Cholesterol Ernie 37(H) mg/dL [facility] Comment: Optimal: <30 Borderline: 30-40 High Risk: >40 Chol/HDL Ratio 3.3(H) [facility] Comment: Optimal: <3.3 High Risk: >6.2 12/09/2024 3:00 AM EDT 12/10/2024 1:47 PM EDT us Bernardo Christie MD LAB BLOOD ORDERABLES Final Resul t Performing Organization Address [facility] Co de Phone Number [facility] [address] [place] [address] * Electrolyte panel (12/09/2024 3:00 AM EDT) Only the most recent of3 resultswithin the time period is included. Sodium 143 136 - 145 mEq/L [facility] Potassium 5.0 3.4 - 5.0 mEq/L [facility] Chloride 103 98 - 107 mEq/L [facility] Bicarbonate (CO2) 27 21 - 31 mEq/L [facility] Anion Gap 13 3 - 14 mEq/L [facility] 12/09/2024 3:00 AM EDT 12/10/2024 1:47 PM EDT us Bernardo Christie MD LAB BLOOD ORDERABLES Final Resul t Performing Organization Address [facility] de Phone Number [facility] [address] [place] [address] * (ABNORMAL) Phosphorus (11/20/2024 3:00 AM EDT) Phosphorus, Serum 5.4(H) 2.5 - 5.0 mg/dL [facility] 11/20/2024 3:00 AM EDT 11/21/2024 2:07 PM EDT us Bernardo Christie MD LAB BLOOD ORDERABLES Final Resul t Performing Organization Address [facility] de Phone Number [facility] [address] [place] [address] * (ABNORMAL) Hemoglobin (11/18/2024 3:00 AM EDT) Only the most recent of2 resultswithin the time period is included. Hgb 10.4(L) 13.7 - 17.5 g/dL [facility] Hemoglobin x 3 31.2(L) 41.1 - 52.5 g/dL [facility] 11/18/2024 3:00 AM EDT 11/19/2024 1:40 PM EDT us Bernardo Christie MD LAB BLOOD ORDERABLES Final Resul t [facility] [address] [place] [address] from Last 3 Months Insurance [facility] MCR ([id number]) JERMAIEN JARAMILLO [id number] [facility] MCR ([id number]) Care Teams Guest Relations Manager Relationship Specialty Start Date End Date Lizy Soria NP [address] [place] [address] PCP - General Nurse Practitioner 12/17/23
--- OUTSIDE RECORDS SUMMARY | 2025-01-04 17:59 | XMS_ITS | Encounter Summary ---
Author Organization [employer] Address [address] [place] [address] Care Team Providers Care Meteorologist In Charge Name Role Phone Marline Richard MD Primary Care Provider Reason for Visit * Reason Onset Date Comments Pre-visit Planning 10/30/2023 Encounter Details Date Type Department Care Team ([facility] st Contact Info) Description 10/30/2023 Telephone [facility] [address] [place] [address] Marline Richard MD [address] [place] [address] Pre-visit Planning Social History Tobacco Use Types [...] the past 12 months, has t he [employer], gas, oil or water [employer] threatened to shut off services in your [...] documented as of this encounter Care Teams Meteorologist In Charge Relationship Specialty Start Date End Date Marline Richard MD [address] [place] [address] PCP - General Family Medicine 04/21/20 documented as of this encounter
--- OUTSIDE RECORDS SUMMARY | 2025-01-04 17:59 | XMS_ITS | Encounter Summary ---
Author Organization [employer] Address [address] [place] [address] Care Team Providers Care Solar Electric Practitioner Name Role Phone Marline Richard MD Primary Care Provider [phone] Reason for Visit * Reason Comments Med Refill Encounter Details Date Type Department Care Team ([facility] Contact Info) Description 06/12/2023 Refill [facility] [address] [place], [place] [phone] Marline Richard MD [address] [place], [place] [phone] Vitamin D deficiency, unspecified Social History Tobacco [...] documented as of this encounter Care Teams [employer] Practitioner Relationship Specialty Start Date End Date Marline Richard MD [address] [place] [id number] PCP - General Family Medicine 04/21/20 documented as of this encounter
--- OUTSIDE RECORDS SUMMARY | 2025-01-04 17:59 | XMS_ITS | Encounter Summary ---
Author Organization [employer] Address [address] [place] [address] Care Team Providers Care Clock And Watch Hands Painter Name Role Phone Marline Richard MD Primary Care Provider [phone] Reason for Visit * Reason Comments Med Refill Encounter Details Date Type Department Care Team ([facility] Contact Info) Description 04/25/[address] [facility] [address] [place], [place] [phone] Marline Richard MD [address] [place], [place] [phone] Phantom limb (CMS/HCC) Social History Tobacco Use [...] this encounter Visit Diagnoses Diagnosis Phantom limb (HCC) Phantom limb (syndrome) documented in this encounter Additional Health Concerns Assessment Noted Time PHQ-9 Depression Total Score: 5 04/20/19 23 1:08 PM EST documented as of this encounter Care Teams Clock And Watch Hands Painter Relationship Specialty Start Date End Date Marline Richard MD [address] [place] [address] PCP - General Family Medicine 04/21/20 documented as of this encounter
--- OUTSIDE RECORDS SUMMARY | 2025-01-04 17:59 | XMS_ITS | Encounter Summary ---
Author Organization [employer] Address [address] [place] [address] Care Team Providers Care Backroom Associate Name Role Phone Marline Richard MD Primary Care Provider [phone] Encounter Details Date Type Department Care Team ([facility] st Contact Info) Description 06/14/2023 Orders Only [facility] [address] [place] [address] Marline Richard MD [address] [place] [address] Social History Tobacco Use Types Packs/Day Years [...] documented as of this encounter Care Teams Backroom Associate Relationship Specialty Start Date End Date Marline Richard MD [address] [place] [address] PCP - General Family Medicine 04/21/20 documented as of this encounter
--- OUTSIDE RECORDS SUMMARY | 2025-01-04 17:59 | XMS_ITS | Encounter Summary ---
Author Organization [employer] Address [address] [place] [address] Care Team Providers Care Development Mgr Name Role Phone Marline Richard MD Primary Care Provider [phone] Encounter Details Date Type Department Care Team ([facility] st Contact Info) Description 02/15/2023 Orders Only [facility] [address] [place] [address] Marline Richard MD [address] [place] [address] Essential hypertension Social History Tobacco Use Types [...] as of this encounter Care Teams Development Mgr Relationship Specialty Start Date End Date Marline Richard MD [address] [place] [address] PCP - General Family Medicine 04/21/20 documented as of this encounter
--- OUTSIDE RECORDS SUMMARY | 2025-01-04 17:59 | XMS_ITS | Encounter Summary ---
Author Organization [employer] Address [address] [place] [address] Care Team Providers Care Toddler Lead Teacher Name Role Phone Marline Richard MD Primary Care Provider [phone] Reason for Visit * Reason Comments Med Refill Encounter Details Date Type Department Care Team ([facility] Contact Info) Description 09/18/2023 Refill [facility]INE [address] [place], [place] [phone] Marline Richard MD [address] [place], [place] [phone] Type 2 diabetes mellitus with chronic kidney [...] documented as of this encounter Care Teams Toddler Lead Teacher Relationship Specialty Start Date End Date Marline Richard MD [address] [place] [address] PCP - General Family Medicine 04/21/20 documented as of this encounter
--- OUTSIDE RECORDS SUMMARY | 2025-01-04 17:59 | XMS_ITS | Encounter Summary ---
Author Organization [employer] Address [address] [place] [address] Care Team Providers Care Cell Preparer Name Role Phone Marline Richard MD Primary Care Provider [phone] Reason for Visit * Reason Onset Date Comments Med Refill 11/03/2024 Encounter Details Date Type Department Care Team ([facility] st Contact Info) Description 11/03/2024 Telephone [facility] MEDICINE [address] [place] [address] Marline Richard MD [address] [place] [address] Med Refill Social History Tobacco Use Types Packs/Day Years [...] the past 12 months, has t he [employer], gas, oil or water [email or web address] threatened to shut off services in your [...] encounter Miscellaneous Notes * Telephone Encounter - Zahira Hoffman LPN - 11/03/2024 11:12 AM EDT Sensors were sent to [facility] on 09/30/24 with 11 refills. * Telephone Encounter - Alfonso Johnson - 11/03/2024 11:02 AM EDT TC from pt requesting medication refill. Medications needing refill : Continuous Glucose Sensor (FreeStyle Daniel 2 Sensor) [facility] [place] To be sent to: [facility] documented in this encounter Plan of Treatment [...] documented as of this encounter Care Teams Cell Preparer Relationship Specialty Start Date End Date Marline Richard MD [address] [place] [address] PCP - General Family Medicine 04/21/20 documented as of this encounter
--- OUTSIDE RECORDS SUMMARY | 2025-01-04 17:59 | XMS_ITS | Encounter Summary ---
Author Organization [facility] Address [address] [place] [phone] Phone Care Team Providers Care Business Solutions Director Name Role Phone Yang Lizy OEMR Primary Care Provider [phone] Encounter Details Date Type Department Care Team ([facility] st Contact Info) Description 01/04/2025 Treatment [facility] [address] [phone] Allen Koroma MD [address] [address] End stage renal disease; Dependence [...] Dialysis Note - Allen Koroma MD - 01/04/2025 12:00 AM EDT BASIC NOTE Patient: Kingsley Johnson : 1955 Note Author: ALLEN KOROMA MD Service Date: 01/04/2025 This patient was personally seen [id number] for a basic visit as part of routine monthly dialysis care for end stage renal disease. Attending Commercial Credit Reviewer: ALLEN KOROMA MD Dialysis Location: [facility] Schedule: Shift: 1 HOME MEDICATIONS Current [facility] Outpatient Medications [...] 2 (two) times a day Start Date: [facility] Inject 100 Units under the skin Start Date: Current [employer] [facility] Allergies Allergen: MIRTAZAPINE Reaction: Other (see comments) ADEQUACY ASSESSMENT Kt/V, Natural Log 1.60 (12/09/24) 1.35 (11/11/24) 1.38 (10/14/24) UREA REDUCTION RATIO (%) 74 (12/09/24) 69 (11/11/24) 70 (10/14/24) BUN 61 (12/09/24) 74 (11/11/24) 57 (10/14/24) BUN Post Dialysis 16 (12/09/24) 23 (11/11/24) 17 (10/14/24) Creatinine 7.17 (12/09/24) 7.97 (11/11/24) 8.22 (10/14/24) Bicarbonate (CO2) 27 (12/09/24) 25 (11/11/24) 25 (10/14/24) Sodium 143 (12/09/24) 140 (11/11/24) 144 (10/14/24) ANEMIA ASSESSMENT Hgb 10.5 (12/23/24) 10.3 (12/09/24) 10.6 (11/25/24) Iron Saturation (TSat) 55 (12/09/24) 56 (11/11/24) 39 (10/14/24) Ferritin 1,075 (12/09/24) 1,633 (11/11/24) 1,324 (10/14/24) Iron 122 (12/09/24) 128 (11/11/24) 91 (10/14/24) TIBC 223 (12/09/24) 228 (11/11/24) 232 (10/14/24) MCV 101.0 (12/09/24) 101.5 (11/11/24) 101.3 (10/14/24) Platelets 188 (12/09/24) 178 (11/11/24) 205 (10/14/24) BMM ASSESSMENT Calcium, Adjusted Total 8.7 12/21/24 9.2 12/09/24 8.3 11/11/24 Calcium 8.7 12/21/24 9.2 12/09/24 8.3 11/11/24 Phosphorus, Serum 4.3 12/09/24 5.4 11/20/24 6.4 11/11/24 Ca*PO4 39.6 12/09/24 53.1 11/11/24 43.0 10/14/24 PTH, Intact 603 12/09/24 582 09/09/24 391 06/10/24 Magnesium 1.8 12/09/24 1.7 11/11/24 1.8 10/14/24 Alkaline Phosphatase 215 12/09/24 166 11/11/24 175 10/14/24 Aluminum 3 03/18/24 NUTRITION ASSESSMENT Albumin 4.4 12/21/24 4.1 12/09/24 4.1 11/11/24 Potassium 5.0 12/09/24 4.7 11/11/24 5.0 10/14/24 Hemoglobin A1C 8.0 12/09/24 8.3 09/09/24 8.0 06/10/24 ADDITIONAL LABS White Blood Cells 7.5 (12/09/24) 7.2 (11/11/24) 7.5 (10/14/24) Cholesterol 86 (12/09/24) 83 (09/09/24) 94 (06/10/24) HDL 26 (12/09/24) 30 (09/09/24) 23 (06/10/24) LDL-Calc 23 (12/09/24) 4 (09/09/24) 14 (06/10/24) Triglycerides 184 (12/09/24) 247 (09/09/24) 283 (06/10/24) Hep B Surface Antibody 348 (08/31/24) 360 (07/15/24) 362 (03/18/24) Uric Acid 6.0 (03/18/24) ALT (SGPT) 21 (12/09/24) 25 (11/11/24) 17 (10/14/24) AST (SGOT) 19 (12/09/24) 25 (11/11/24) 19 (10/14/24) Signed by: ALLEN KOROMA MD on 01/04/2025 at 07:50:05 AM Transcribed by: ALLEN KOROMA MD on 01/04/2025 at 07:50:05 AM documented in this encounter Plan of Treatment Not on file documented as of this encounter Visit Diagnoses Diagnosis End stage renal disease Dependence on renal dialysis documented in this encounter Care Teams Business Solutions Director Relationship Specialty Start Date End Date Lizy Soria NP [address] [place] [address] PCP - General Nurse Practitioner 12/17/23 documented as of this encounter
--- OUTSIDE RECORDS SUMMARY | 2025-01-04 17:59 | XMS_ITS | Encounter Summary ---
Author Organization [employer] Address [address] 7[address] [place] [address] Care Team Providers Care Spring Clipper Name Role Phone Marline Richard MD Primary Care Provider [phone] Encounter Details Date Type Department Care Team (Latest Contact Info) Description 08/18/2023 Orders Only [facility] MEDICINE [address] [place] [address] Marline Richard MD [address] [place] [address] Hypertriglyceridemia (Primary Dx) Social History Tobacco Use [...] documented as of this encounter Care Teams Spring Clipper Relationship Specialty Start Date End Date Marline Richard MD [address] [place] [address] PCP - General Family Medicine 04/21/20 documented as of this encounter
--- OUTSIDE RECORDS SUMMARY | 2025-01-04 18:00 | XMS_ITS | Encounter Summary ---
Author Organization [employer] Address [address] [facility] 7t [place] [address] Care Team Providers Care Photo Lab Technician Name Role Phone Marline Richard MD Primary Care Provider [phone] Reason for Visit * Reason Onset Date Comments Hospital Follow-up 10/05/2022 Encounter Details Date Type Department Care Team ([facility] st Contact Info) Description 10/05/2022 Telephone [facility] MEDICINE 230 [place] [address] Marline Richard MD 230 [place] [address] Hospital Follow-up Social History Tobacco Use Types [...] a HDF appt. Pt was admitted at [facility] on 09/28/22 and discharged on 10/02/22. Pt was diagnosed with hypertensive emergency documented in this encounter Plan of Treatment Not on file documented as of this encounter Visit Diagnoses Not on filedocumented in this encounter Additional Health Concerns Assessment Noted Time PHQ-9 Depression Total Score: 5 04/20/19 23 1:08 PM EST documented as of this encounter Care Teams Photo Lab Technician Relationship Specialty Start Date End Date Marline Richard MD [address] [place] [address] PCP - General Family Medicine 04/21/20 documented as of this encounter
--- OUTSIDE RECORDS SUMMARY | 2025-01-04 18:00 | XMS_ITS | Encounter Summary ---
Author Organization [employer] Address [address] [place] [address] Care Team Providers Care Certified Dietary Manager Name Role Phone Marline Richard MD Primary Care Provider [phone] Reason for Visit * Reason Onset Date Comments chart prep 01/01/2025 Encounter Details Date Type Department Care Team ([facility] Contact Info) Description 01/01/2025 Telephone [facility] MEDICINE 230 [place] [address] Marline Richard MD [address] [place] [address] chart prep Social History Tobacco Use Types Packs/Day Years [...] the past 12 months, has t he [employer], gas, oil or water [employer] threatened to shut off services in your home? No 12/28/2024 Depression Answer Date Recorded Patient Health Questionnaire-2 Score 0 08/02/2023 Internet Access Answer Date Recorded Internet Access [...] encounter Miscellaneous Notes * Telephone Encounter - Jewels Palmer MA - 01/01/2025 2:18 PM EDT Chart Prep Labs: done Images: done Referrals: complete Vaccines due: Covid and Flu Screenings: colonoscopy and eye exam Overdue care gaps: A1c, Glucose, SBIRT, PHQ-9, and BINA-7 documented in this encounter Plan of Treatment Not on file documented as of this encounter Goals Goal Patient Goal Type Associated Problems Recent Progress Patient-Stated? Author Blood Pressure < 140/90 Blood Pressure 180/80(2024 1:44 PM EDT) Deandre Acosta Hemoglobin A1c < 7 Result Component 8.3( 1:50 PM EDT) Deandre Acosta documented as of this encounter Visit Diagnoses Not on filedocumented in this encounter Additional Health Concerns Assessment Noted Time PHQ-9 Depression Total Score: 0 05/24/20 24 1:47 PM EDT documented as of this encounter Care Teams Certified Dietary Manager Relationship Specialty Start Date End Date Marline Richard MD [address] [place] [address] PCP - General Family Medicine 04/21/20 documented as of this encounter
--- OUTSIDE RECORDS SUMMARY | 2025-01-04 18:00 | XMS_ITS | Clinical Summary ---
Author Organization [facility] Address [address] [place] [phone] Phone Care Team Providers Care Developer Architect Name Role Phone Marline Richard MD Primary Care Provider [phone] Allergies No known active allergies Medications No known medications Active Problems No known active problems Immunizations Immunization Administration Dates Next Due Moderna SARS-CoV-2 COVID-19, mRNA, LNP-S, preservative free 06/20/2020,05/23/2020 Pfizer SARS-CoV-2 COVID-19, mRNA, LNP-S, preservative free 01/24/2021 Surgical History Surgery Date Site/Laterality Comments OTHER SURGICAL HISTORY 05/21/2023 Left PROCEDURE: HISTORY OTHER; COMMENT: Arm basilic vein transportation AV fistula creation Medical History Medical History Date Comments Depressive disorder DX:Depressiv e disorder Diabetes mellitus type 2, co ntrolled, with complications (CMS/HCC V24, CMS/HCC V28) DX:Diabetes mellitus type 2, controlled, with complications ([facility]) Essential hypertension DX:Essent ial hypertension Hyperlipidemia DX:Hyperlipidemi [...] 62 01/22/2024 10:19 AM EST Temperature 36.5 C (97.7 F) 01/22/2024 10:19 AM EST Respiratory Rate 19 01/22/2024 10:19 AM EST Oxygen Saturation 97% 01/22/2024 10:19 AM EST Inhaled Oxygen Concentration - - Weight 83.9 kg (185 lb) 01/22/2024 10:26 AM EST Height 172.7 cm (5' 8 ) 01/22/2024 10:26 AM EST Body Mass Index 28.13 01/22/2024 10:26 AM EST Plan of Treatment Health Maintenance Due Date Last Done Comments Colorectal Cancer Screening: Colonoscopy 1955 Diabetes: Annual Foot Exam 1965 Diabetes: Annual Retina Eye Exam 1965 Abdominal Aortic Aneurysm (AAA) Screen 02/17/2022 Falls Risk Assessment 02/17/2022 Hepatitis C Screening 02/17/2022 Medicare Annual Wellness Visit 02/17/2022 Social Influencers of Health Screening 02/17/2022 Diabetes: Annual Urine Albumin-Creatinine Ratio (uACR) 01/22/2024 Depression Screening 03/11/2024 Diabetes: Blood Sugar Control Test (HGBA1C) 09/15/2024 03/18/2024, 03/18/2024, 02/10/2024, Additional history exists COVID-19 Vaccine ( season) 2024 02/10/2024, 03/14/2023, 01/24/2021, Additional history exists Influenza Vaccine (#1) 2024 , 12/19/2021, 01/09/2021, Additional history exists Diabetes: Annual GFR (Glomerular [...] 02/15/2005 RSV Immunization Adult Patients Completed 02/25/2023 HIB Vaccines Aged Out No [...] mmol/L LAB CHEMISTRY METHOD 01/22/2024 11:37 AM [facility] Potassium 4.2 3.5 - 5.5 mmol/L LAB CHEMISTRY METHOD 01/22/2024 11:37 AM [facility] Comment:Hemolysis present Chloride 101 96 - 110 mmol/L LAB CHEMISTRY METHOD 01/22/2024 11:37 AM [facility] CO2 31 21 - 32 mmol/L LAB CHEMISTRY METHOD 01/22/2024 11:37 AM [facility] Anion Gap 5 3 - 11 LAB CHEMISTRY METHOD 01/22/2024 11:37 AM [facility] Glucose 121(H) 70 - 100 mg/dL LAB CHEMISTRY METHOD 01/22/2024 11:37 AM [facility] BUN 24 5 - 25 mg/dL LAB CHEMISTRY METHOD 01/22/2024 11:37 AM [facility] Creatinine 3.26(H) 0.70 - 1.30 mg/dL LAB CHEMISTRY METHOD 01/22/2024 11:37 AM [facility] eGFR 20(L) >=60 mL/min/1. 73m2 LAB CHEMISTRY METHOD 01/22/2024 11:37 AM [facility] Comment:Calculation based on the Chronic Kidney Disease Epidemiology Collaboration (CKD-EPI) equation refit without adjustment for race. BUN/Creatinine Ratio 7.4 LAB CHEMISTRY METHOD 01/22/2024 11:37 AM [facility] Calcium 9.1 8.5 - 10.5 mg/dL LAB CHEMISTRY METHOD 01/22/2024 11:37 AM [facility] AST (SGOT) 37 10 - 42 unit/L LAB CHEMISTRY METHOD 01/22/2024 11:37 AM [facility] Comment:Hemolysis present ALT (SGPT) 31 10 - 60 unit/L LAB CHEMISTRY METHOD 01/22/2024 11:37 AM [facility] Alkaline Phosphatase 147(H) 42 - 121 unit/L LAB CHEMISTRY METHOD 01/22/2024 11:37 AM [facility] Total Protein 6.8 6.0 - 8.0 g/dL LAB CHEMISTRY METHOD 01/22/2024 11:37 AM [facility] Albumin 3.2 3.2 - 5.0 g/dL LAB CHEMISTRY METHOD 01/22/2024 11:37 AM [facility] Total Bilirubin 0.6 0.0 - 1.4 mg/dL LAB CHEMISTRY METHOD 01/22/2024 11:37 AM [facility] Blood Venous blood specimen / Unknown Venipuncture / Unknown 01/22/2024 10:24 AM EST 01/22/2024 10:59 AM EST us Kelsey DEAN LAB BLOOD ORDERABLES Final Re sult [facility] [address] [place] [address], [place] [phone] from Last 3 Months or Most Recently Relevant to Health Maintenance Insurance [facility] MEDICARE Member Subscriber Plan / Payer (Ef fective 2022-Present) Name:Kingsley Rivero Relation to Subscriber:Self Name:Kingsley Rivero Payer ID:[id number] Group ID:[id number] Type:Not on file Address: [place] [address] [address] [phone] Care Teams Developer Architect Relationship Specialty Start Date End Date Marline Richard MD [address] [place] [address] PCP - General Front Desk Admin 01/22/24
--- OUTSIDE RECORDS SUMMARY | 2025-01-04 18:00 | XMS_ITS | Encounter Summary ---
Author Organization [employer] Address [address] [facility] 7t [place] [address] Care Team Providers Care Commercial Manager Name Role Phone Marline Richard MD Primary Care Provider [phone] Reason for Visit * Reason Comments Med Refill Encounter Details Date Type Department Care Team ([facility] st Contact Info) Description 11/20/2022 Refill [facility] MEDICINE [address] [place] [address] Keesha Black MD [address] [place] [address] Social History Tobacco Use Types Packs/Day Years [...] documented as of this encounter Care Teams Commercial Manager Relationship Specialty Start Date End Date Marline Richard MD [address] [place] [address] PCP - General Family Medicine 04/21/20 documented as of this encounter
--- OUTSIDE RECORDS SUMMARY | 2025-01-04 18:00 | XMS_ITS | Encounter Summary ---
Author Organization [employer] Address [address] [place] [address] Care Team Providers Care Train Crew Member Name Role Phone Marline Richard MD Primary Care Provider Encounter Details Date Type Department Care Team ([facility] st Contact Info) Description 08/23/2022 Orders Only [facility] MEDICINE [address] [place] [address] Marline Richard MD [address] [place] [address] Hyperkalemia (Primary Dx) Social History Tobacco Use [...] as of this encounter Plan of Treatment Scheduled Orders [...] documented as of this encounter Care Teams Train Crew Member Relationship Specialty Start Date End Date Marline Richard MD [address] [place] [address] PCP - General Family Medicine 04/21/20 documented as of this encounter
--- OUTSIDE RECORDS SUMMARY | 2025-01-04 18:00 | XMS_ITS | Encounter Summary ---
Author Organization [employer] Address [address] [place] [address] Care Team Providers Care Mobile Phone Salesperson Name Role Phone Marline Richard MD Primary Care Provider [phone] Encounter Details Date Type Department Care Team ([facility] st Contact Info) Description 12/12/2022 Orders Only [facility] MEDICINE [address] [place] [address] Marline Richard MD [address] [place] [address] Social History Tobacco Use Types Packs/Day Years [...] documented as of this encounter Care Teams Mobile Phone Salesperson Relationship Specialty Start Date End Date Marline Richard MD [address] [place] [address] PCP - General Family Medicine 04/21/20 documented as of this encounter
--- OUTSIDE RECORDS SUMMARY | 2025-01-04 18:00 | XMS_ITS | Encounter Summary ---
Author Organization [employer] Address [address] [place] [address] Care Team Providers Care Tunnel Inspector Name Role Phone Marline Richard MD Primary Care Provider [phone] Encounter Details Date Type Department Care Team (Latest Contact Info) Description 01/04/2025 Travel Social History Tobacco Use Types Packs/Day [...] AM EDT documented as of this encounter Functional Status * Over the [...] [place] documented as of this encounter Plan of [...] documented as of this encounter Care Teams Tunnel Inspector Relationship Specialty Start Date End Date Marline Richard MD [address] [place] [address] PCP - General Family Medicine 04/21/20 documented as of this encounter
--- OUTSIDE RECORDS SUMMARY | 2025-01-04 18:00 | XMS_ITS | Clinical Summary ---
Author Organization [employer] Address [address] [facility] [address] [place] [address] Care Team Providers Care Cold Mill Supervisor Name Role Phone Marline Richard MD Primary Care Provider [phone] Allergies Active Allergy Reactions Criticality Noted Date Comments Metformin 08/05/2023 Mirtazapine Hives 07/08/2014 Medications Continuous Blood Gluc [employer] Cutter (edulio Daniel 2 [place]) deviceIndicatio ns:Type 2 diabetes mellitus with stage 2 chronic kidney disease, with long-term current use of insulin (HCC) 1 each in the morning. 1 each 023 Active fluticasone (Flonase) 50 MCG/ACT nasal spray USE 2 SPRAYS IN EACH NOSTRIL EVERY MORNING NEEDED 48 g 023 Active albuterol (Ventolin HFA) 108 (90 Base) MCG/ACT inhaler Inhale 2 puffs every 4 (four) hours if needed for wheezing or shortness of breath. 18 g 1 023 Active omeprazole (PriLOSEC) [address] capsuleIndicati ons:Gastroesoph ageal reflux disease, unspecified whether esophagitis present Take 1 capsule (40 mg) by mouth before breakfast. Do not crush or chew. 30 capsule 11 023 Active Quisk Ultra Test test stripIndication s:Type 2 diabetes mellitus with chronic kidney disease, with long-term current use of insulin, unspecified CKD stage (HCC) USE DIRECTED TO TEST BLOOD SUGAR THREE TIMES DAILY 100 strip 11 024 Active Blood Glucose Monitoring Suppl (ONE TOUCH ULTRA 2) w/Device kitIndications: Type 2 diabetes mellitus with chronic kidney disease, with long-term current use of insulin, unspecified CKD stage ([facility]) Use to monitor blood glucose three times daily 1 kit Active hydrALAZINE (Apresoline) 50 MG tabletIndicatio ns:Essential hypertension TAKE 2 TABLETS BY MOUTH THREE TIMES DAILY IN THE MORNING, EVENING AND BEDTIME 180 tablet 11 Active Tresiba FlexTouch 100 UNIT/ML injection Inject 25 Units under the skin at bedtime. 10 mL 3 Active Lancets 33G misc 1 each at noon and 1 each in the evening. Use to test blood sugar three times a day. 100 each Active cetirizine (ZyrTEC) 10 MG tablet Take 1 tablet (10 mg) by mouth Once per day. 90 tablet 3 024 2024 Active aspirin (Aspirin Low Dose) 81 MG chewable tablet Chew 1 tablet (81 mg) Once per day. 90 tablet 3 Active NIFEdipine XL (Procardia XL) 60 MG 24 hr tablet TAKE 2 TABLETS BY MOUTH ONCE DAILY IN THE MORNING Active carvedilol (Coreg) 25 MG tablet TAKE 1 TABLET BY MOUTH TWICE DAILY IN THE MORNING AND IN THE EVENING 180 tablet 3 Active cholecalciferol (Vitamin D-3) 25 MCG tablet TAKE 1 TABLET BY MOUTH EVERY MORNING 90 tablet 3 Active docusate sodium (Colace) 100 MG capsuleIndicati ons:Constipatio n, unspecified constipation type TAKE 1 CAPSULE BY MOUTH AT BEDTIME 90 capsule 3 Active isosorbide mononitrate ER (Imdur) 120 MG 24 hr tablet TAKE 1 TABLET BY MOUTH EVERY MORNING DO NOT BREAK, CRUSH, DISSOLVE OR CHEW 90 tablet 3 Active sertraline (Zoloft) 50 MG tablet TAKE 1 TABLET BY MOUTH EVERY MORNING 90 tablet 3 Active Continuous Glucose Sensor (FreeStyle Daniel 2 Sensor) miscIndications :Type 2 diabetes mellitus with stage 2 chronic kidney disease, with long-term current use of insulin ([facility]) USE DIRECTED TO TEST BLOOD SUGAR CHANGE EVERY 14 DAYS 2 each Active atorvastatin (Lipitor) 80 MG tablet TAKE 1 TABLET BY MOUTH AT BEDTIME 90 tablet 3 025 Active gabapentin (Neurontin) 300 MG capsule TAKE 1 CAPSULE BY MOUTH EVERY MORNING 30 capsule 5 025 Active tamsulosin (Flomax) 0.4 MG 24 hr capsule TAKE 1 CAPSULE BY MOUTH EVERY EVENING 30 MINUTOS DESPUES DE LA FRANCHESKA 90 capsule 3 025 Active melatonin 3 MG tablet TAKE 1 TABLET BY MOUTH AT BEDTIME 30 tablet 5 025 Active Icosapent Ethyl (Vascepa) 1 g capsuleIndicati ons:Hypertrigly ceridemia TAKE 2 CAPSULES BY MOUTH TWICE DAILY IN THE MORNING AND EVENING 120 capsule 5 025 Active brimonidine (AlphaGAN) 0.2 % ophthalmic solution PLACE 1 DROP IN THE RIGHT EYE THREE TIMES DAILY Active glucagon 1 MG injection USE DIRECTED FOR HYPOGLYCEMIA BG < 55, EMERGENCY USE ONLY Active Embecta Pen Needle Ultrafine 31G X 5 MM misc Active ketorolac (Acular) 0.5 % ophthalmic solution PLACE 1 DROP IN THE RIGHT EYE THREE TIMES DAILY Active isosorbide mononitrate ER (Imdur) 60 MG 24 hr tablet Take 60 mg by mouth in the morning. Active NIFEdipine XL (Procardia XL) 90 MG 24 hr tablet Take 1 tablet (90 mg) by mouth Once per day. Do not crush, chew, or split. 30 tablet 11 024 2024 Discontinued(T herapy completed) cyclobenzaprine (Flexeril) 10 MG tablet Take 1 tablet (10 mg) by mouth if needed in the morning, at noon, and at bedtime for muscle spasms. 45 tablet 1 024 2024 Discontinued(T herapy completed) Melatonin 3 MG capsule Take 1 capsule orally qhs 30 capsule 5 025 2024 Discontinued Vascepa 1 g capsuleIndicati ons:Hypertrigly ceridemia TAKE 2 CAPSULES BY MOUTH TWICE DAILY IN THE MORNING AND EVENING 120 capsule 2 025 2024 Discontinued(R eorder (will not trigger notification to Pharmacy)) Active Problems Problem Noted Date Diagnosed Date Shortness of breath 06/30/2024 Hypertensive heart and chron ic kidney disease with heart failure and with stage 5 chronic kidney disease, or end stage renal disease 06/29/2024 Pure hypercholesterolemia, unspecified Type 2 diabetes mellitus wit h diabetic peripheral angiopathy without gangrene 06/29/2024 Type 2 diabetes mellitus with other specified co mplication 06/29/2024 Hemodialysis-associated hypotension 05/19/2024 Assessment & Plan (05/19/2024 2:25 PM EDT): Per chart review pt has labile Bps with BP as high as 170's and as low as 80's. Seen at [facility] ED 05/18/24(yesterday) for low BP, headache. Went [...] and before and after dialysis to give sales center associate accurate logs. Postural dizziness with presyncope 10/08/2023 [...] to chronic kidney disease, on chronic dialysis ([facility]) 10/08/2023 Assessment & Plan (10/08/2023 4:11 PM EDT): - hemoglobin from 11-7 in 3 week period, r/o acute bleeding, refer to ED Mild protein-calorie malnutrition 08/21/2023 Allergy, unspecified, initial encounter 08/18/19 24 Chest pain, unspecified 08/18/2023 Fever, unspecified 08/18/2023 Hypoglycemia, unspecified 08/18/2023 Pain, unspecified 08/18/2023 Secondary hyperparathyroidism of renal origin Encounter for screening for respiratory tubercul osis 08/18/2023 Anemia in chronic kidney disease 08/08/2023 Dependence on renal dialysis 08/08/2023 Heart failure, unspecified 08/08/2023 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) use of oral hypoglycemic sarahi [...] & Plan (04/15/2023 11:28 AM EST): At [facility] dialysis M/W/F schedule Confirmed with dialysis provider [...] EDT): With worsening Cr, renal ultrasound in [facility] [place] in September suggesting renal artery stenosis Had MRA pending Continue Amlodipine, Lasix, Losartan, Metoprolol, Isosorbide - [facility] hospitalist had started Nifedipine as well in September hospitalization, this was discontinued by cardiology 10/10/22, removed from med list Assessment & Plan (08/20/2022 7:51 AM EDT): Currently in [facility]/bump in Cr Managing BP meds with head swamper, held all of his BP meds and Metformin today Assessment & Plan (04/24/2022 11:45 AM EST): Continue medbox meds Confirmed this with pharmacy Dispose of rehab meds appropriately Mixed hyperlipidemia 12/14/2014 Resolved Problems Problem Noted Date Diagnosed Date Resolved Date Anaphylactic shock, unspecif ied, initial encounter 08/18/2023 01/04/2025 Encounters Date Type Department Care Team Description 01/04/2025 1:30 PM EDT Office Visit [facility] [address] [place] [phone] Marline Richard MD Erectile dysfunction associated with type 2 diabetes [...] dialysis, with long-term current use of insulin ([facility]) 01/04/2025 Travel 01/01/2025 Telephone [facility] [address] [place] [phone] Marline Richard MD chart prep 12/28/2024 Patient Outreach [facility] [address] [place] [address] Marline Richard MD Pre-visit Planning (SDOH negative, Tobacco screening negative. ) 12/18/2024 Refill [facility] [address] [place] [address] Naheed Thompson MD Hypertriglyceridemia 12/18/2024 Refill [facility] [address] [place] [address] Iliana Oswald MD Hypertriglyceridemia 12/07/2024 Telephone [facility] [address] [place] [id number] Marline Richard MD Durable Medical Equipment (DME Order: prosthetic supplies ) 11/25/2024 Refill [facility] [address] [place] [address] Marline Richard MD 11/06/2024 Telephone [facility] [address] [place] [address] Marline Richard MD Prior Authorization 11/05/[address] [address] Marline Richard MD 11/04/2024 Telephone [facility] [address] [place], [place] [phone] Jessenia Lott, JOSE CGM PA 11/03/[address] [phone] Marline Richard MD Durable Medical Equipment ([facility] DME: [employer]) 11/03/2024 Telephone [facility] [address] [place], [place] [phone] Marline Richard MD Med Refill from Last 3 Months Immunizations Immunization Administration Dates Next Due Hep B, adult 12/14/2014,05/12/2014,02/15/2014 Influenza High-dose Quadriva lent Preservative Free 02/25/2023,12/19/2021,01/09/2021 Influenza injectable quadriv alent IIV4 with preservative 12/15/2018,12/30/2017,02/15/2017,12/14 Influenza injectable quadriv alent preservative free 12/25/2019 Influenza, IIV3, injectable 02/15/2014, 5 Influenza, Injectable, MDCK, preservative free 12/09/2024 Influenza, Split (incl. rocio fied surface antigen) [...] Mass Index 29.06 01/04/2025 1:44 PM EDT Plan of Treatment Health Maintenance Due Date Last Done Comments CT Colonography 1955 Colonoscopy 1955 Colorectal Cancer Screening 1955 FIT DNA/Cologuard 1955 FIT 1955 FOBT 1955 Sigmoidoscopy 1955 Hepatitis C Screening 1973 Diabetes: Foot Exam 08/01/2024 08/02/2023 COVID-19 Vaccine ( season) 2024 02/10/2024, 03/14/2023, 01/24/2021, Additional history exists Eye Exam 01/20/2025 01/21/2024, 01/09, 01/21/2024, Additional history exists Diabetes: Hemoglobin A1C 04/06/2025 025, 02/10/2024, 08/02/2023, Additional history exists SDOH Screening 12/28/2025 12/28/2024 Alcohol/Substance Use Screening 01/04/2026 01/04/2025 Depression Screening 01/04/2026 01/04/2025, 01/05/20 Lipid Panel 01/04/2026 01/04/2025, 05/0 08/2023, 08/17/2022, Additional history exists Tobacco Screening 01/04/2026 01/04/2025 DTaP/Tdap/Td Vaccines (3 - Td or Tdap) 03/14/2033 03/14/2023, 06/10/2012, 10/11/2006 Hepatitis B Vaccines Completed 12/14/2014, 05/12/2014, 02/15/2014 Zoster Vaccines Completed 04/21/2019, 12/09, 03/18/2015 Pneumococcal Vaccine: 50+ Years Completed 12/19/2021, 08/04/2012, 02/15/2005 RSV Patients and Patients Aged 60 years or older Completed 02/25/2023 Influenza Vaccine Completed 12/09/2024, , 12/19/2021, Additional history exists HIB Vaccines Aged Out [...] 8.3( 1:50 PM EDT) No Deandre Cordon Procedures Procedure Name Priority Date/Time Associated Diagnosis Comments LIPID PANEL, STANDARD Routine 01/04/2025 2:26 PM EDT End stage renal disease on dialysis due to type 2 diabetes mellitus (HCC) POCT GLYCATED HEMOGLOBIN, TOTAL Routine 01/04/2025 1:50 PM EDT Dietary counseling POCT GLUCOSE Routine 01/04/2025 1:45 PM EDT Dietary counseling from Last 3 Months Results * (ABNORMAL) Lipid Panel, Standard (01/04/2025 2:26 PM EDT) Triglycerides 212(H) <150 mg/dL [facility] Comment:Desirable Triglyceri de: less than 150 mg/dLBorderline High Triglyceride 150-199 mg/dLHigh Triglyceride: 200-499 mg/dLVery High Triglyceride: greater than or equal to 5OO mg/dL Cholesterol 105 <200 mg/dL [facility] Comment:Desirable Cholestero l: less than 200 mg/dLBorderline High Cholesterol: 200-239 mg/dLHigh Cholesterol: greater than 239 mg/dL LDL Cholesterol Calculated 31 <100 mg/dL [facility] Comment:Desirable LDL: less than 100 mg/dLNear Optimal/Above Optimal LDL: 110- 129 mg/dLBorderline High LDL: 130-159 mg/dLHigh LDL: 160-189 mg/dLVery High LDL: greater than or equal to 190 mg/dL HDL Cholesterol 32(L) >40 mg/dL [facility] Comment:Desirable HDL: great er than 40 mg/dL Note: This HDL assay may give artificially low results in patients with liver disease. Blood Venous blood specimen / Unknown 01/04/2025 2:26 PM EDT 01/04/2025 4:07 PM EDT Marline Richard MD LAB BLOOD ORDERABLES Final Res ult [facility] [address] [place] [phone] * (ABNORMAL) POCT Hgb A1c (01/04/2025 1:50 PM EDT) Hemoglobin A1C 8.3(A) 4.0 - 5.7 % QC Media Lot # [id number] Lot# Expiration Date [id number] Blood 01/04/2025 1:50 PM EDT Marline Richard MD POINT OF CARE TEST ENTER/EDIT ORDERABLES Final Result * (ABNORMAL) POCT Glucose (01/04/2025 1:45 PM EDT) [facility] Glucose Blood, POC 274(A) 60 - 200 mg/dL QC Media Lot # [id number] Lot# Expiration Date [id number] Blood Capillary blood specimen / Unknown 01/04/2025 1:45 PM EDT Marline Richard MD POINT OF CARE TEST ENTER/EDIT ORDERABLES Final Result from Last 3 Months Insurance [facility] [employer] (O D-SNP) Care Teams Cold Mill Supervisor Relationship Specialty Start Date End Date Marline Richard MD [address] [place] [address] PCP - General Family Medicine 04/21/20
--- OUTSIDE RECORDS SUMMARY | 2025-01-04 18:00 | XMS_ITS | Encounter Summary ---
Author Organization [employer] Address [address] [place] [address] Care Team Providers Care Radioisotope Production Operator Name Role Phone Marline Richard MD Primary Care Provider [phone] Encounter Details Date Type Department Care Team ([facility] st Contact Info) Description 10/10/2022 Orders Only [facility] [address] [place] [address] Marline Richard MD [address] [place] [address] Essential hypertension (Primary Dx) Social History Tobacco [...] documented as of this encounter Care Teams Radioisotope Production Operator Relationship Specialty Start Date End Date Marline Richard MD [address] [place] [address] PCP - General Family Medicine 04/21/20 documented as of this encounter
--- OUTSIDE RECORDS SUMMARY | 2025-01-04 18:00 | XMS_ITS | Encounter Summary ---
Author Organization [employer] Address [address] [place] [address] Care Team Providers Care Behavior Therapist Name Role Phone Marline Richard MD Primary Care Provider [phone] Encounter Details Date Type Department Care Team ([facility] st Contact Info) Description 05/27/2024 Orders Only [facility] [address] [place] [address] Marline Richard MD [address] [place] [address] Social History Tobacco Use Types Packs/Day Years [...] documented as of this encounter Care Teams Behavior Therapist Relationship Specialty Start Date End Date Marline Richard MD [address] [place] [phone] PCP - General Family Medicine 04/21/20 documented as of this encounter
--- OUTSIDE RECORDS SUMMARY | 2025-01-04 18:00 | XMS_ITS | Encounter Summary ---
Author Organization [employer] Address [address] [place] [address] Care Team Providers Care Production Welder Name Role Phone Marline Richard MD Primary Care Provider [phone] Reason for Visit * Reason Onset Date Comments Prior Authorization 11/06/2024 Encounter Details Date Type Department Care Team ([facility] st Contact Info) Description 11/06/2024 Telephone [facility] [address] [place] [address] Marline Richard MD [address] [place] [address] Prior Authorization Social History Tobacco Use Types Packs/Day Years [...] the past 12 months, has t he [employer], gas, oil or water company threatened to [...] encounter Miscellaneous Notes * Telephone Encounter - Mariluz Hall - 11/06/2024 9:48 AM EDT Script for Continuous Glucose Sensor (FreeStyle Daniel 2 Sensor) [facility] [place] a prior authorization. documented in this encounter Plan of Treatment [...] documented as of this encounter Care Teams Production Welder Relationship Specialty Start Date End Date Marline Richard MD [address] [place] [phone] PCP - General Family Medicine 04/21/20 documented as of this encounter
--- OUTSIDE RECORDS SUMMARY | 2025-01-04 18:00 | XMS_ITS | Encounter Summary ---
Author Organization [employer] Address [address] [facility] [address] [place] [address] Care Team Providers Care Business Process Representative Name Role Phone Marline Richard MD Primary Care Provider [phone] Encounter Details Date Type Department Care Team ([facility] Contact Info) Description 01/23/2024 Orders Only [facility] [address] [place] [address] ProviderJose D MD Social History Tobacco Use [...] your housing situation today? I have pedrito jenny 12/26/[address] you li [...] Component 8.3( 1:50 PM EDT) No Deandre Corodn documented as of this encounter Procedures Procedure [...] documented as of this encounter Care Teams Business Process Representative Relationship Specialty Start Date End Date Marline Richard MD [address] [place] [address] PCP - General Family Medicine 04/21/20 documented as of this encounter
[2025-01-05 04:00] LABS: ~HepC Num1 0.07 S/CO (0.00-0.79); ~Hepatitis C Antibody Nonreactive (Nonreactive)
[2025-01-07 17:48] LABS: TS Negative Control Passed; TS Panel A 2; TS Panel B 2; TS Positive Control Passed; TSpotTB Negative (Negative)
== END 2025-01-04 14:22 | disposition home or self-care (01) ==
LOC: HO.HHCL 14:21
PROVIDERS: PCP General Practice; Visit Provider General Practice
DX: Z11.1 Encounter for screening for respiratory tuberculosis (principal); Z11.59 Encounter for screening for other viral diseases; E11.22 Type 2 diabetes mellitus with diabetic chronic kidney disease; N18.6 End stage renal disease; I50.9 Heart failure, unspecified; Z99.2 Dependence on renal dialysis
CPT/HCPCS: 36415; 80061; 86481; 86803

== ENCOUNTER 2025-02-17 14:45 | Emergency (ER) | payer OTHER, SELFPAY ==
[2025-02-17] VITALS (7 sets, daily range): BP systolic 97–106; BP diastolic 41–81; PULSE 54–63; RESP 10–16; TEMP 36.5–36.9; O2SAT 91–95; BMI 27.8
--- NOTE | ~2025-02-17 | XR_ITS ---
EXAMINATION: XR CHEST CLINICAL INFORMATION: Hypoxia COMPARISON: Chest radiograph on May 18, 2024 TECHNIQUE: Frontal view of the chest was obtained. FINDINGS: Lungs: Low lung volumes. No confluent consolidation. Pleura: No pleural effusion or pneumothorax. Heart/Mediastinum: Unchanged mild enlargement of the cardiomediastinal silhouette. Bones: No acute findings. XR/XR chest 1V IMPRESSION: No acute cardiopulmonary process. Electronically signed by: Ángel Fernandes MD 02/17/2025 04:58 PM EST
--- NOTE | ~2025-02-17 | CT_ITS ---
CLINICAL HISTORY: Headache CT head without contrast Comparison: CT/MS/SR - CT HEAD WITHOUT IV CONTRAST - 05/25/24 09:37 EDT Findings: Involutional change and nonspecific white matter hypodensity. No intracranial mass, midline shift, hydrocephalus, or acute hemorrhage. Orbits, paranasal sinuses, and mastoid air cells are unremarkable. No skull fracture Impression: 1. No acute findings This document has been electronically signed by: Reina Hilton MD on 02/17/2025 17:22:41
--- NOTE | 2025-02-17 15:03 | ECG_ITS ---
Test Reason : WEAKNESS Blood Pressure : */* mmHG Vent. Rate : 55 BPM Atrial Rate : 55 BPM P-R Int : 200 ms QRS Dur : 94 ms QT Int : 482 ms P-R-T Axes : 49 20 169 degrees QTcB Int : 461 ms Sinus bradycardia Nonspecific ST and T wave abnormality Prolonged QT Abnormal ECG When compared with ECG of 25-May-2024 08:57, Sinus rhythm has replaced Ectopic atrial rhythm ST now depressed in Lateral leads Inverted T waves have replaced nonspecific T wave abnormality in Lateral leads QT has lengthened Referred By: Generic ED Physician Electronically Signed By: MARIA DOLORES GARNICA MD
[2025-02-17 15:18] LABS: MANUAL DIFF FLAG NO
[2025-02-17 15:19] LABS: Hematocrit 24.3 % (42.0-52.0); Hemoglobin 8.5 g/dl (14.0-18.0); Imm Gran Abs Auto 0.04 X10*3/uL (0.00-0.03); Imm Gran Pct Auto 0.4 % (0.0-0.4); Lymphocytes Absolute Auto 1.4 X10*3/uL (1.2-4.9); Mean Corpuscular HGB Conc 35.0 g/dl (31.0-36.0); Mean Corpuscular Hemoglobin 32.3 pg (27.0-33.0); Mean Corpuscular Volume 92.4 fL (80.0-98.0); NRBC Abs Auto 0.000 X10*3/uL (0.0-0.012); NRBC Pct Auto 0.0 /100WBC (0.0-0.2); Platelet Count 201 X10*3/uL (160-400); Red Blood Count 2.63 X10*6/uL (4.60-5.80); White Blood Count 9.6 X10*3/uL (4.8-10.8)
[2025-02-17 15:45] LABS: Alanine Aminotransferase 21 U/L (0-40); Albumin Level 3.7 g/dL (3.5-5.0); Alkaline Phosphatase 176 U/L (39-117); Anion Gap 17 (12-20); Aspartate Amino Transferase 36 U/L (5-37); Blood Urea Nitrogen 24 mg/dL (9-16); Calcium 9.1 mg/dL (8.4-10.2); Carbon Dioxide 32 mmol/L (22-29); Chloride 95 mmol/L (96-108); Creatinine Clr Calc Pharmacy 17.3; Estimated Glomerular Filt Rate 14; Magnesium 1.7 mg/dL (1.6-2.6); Potassium 4.1 mmol/L (3.3-5.1); Sodium 140 mmol/L (135-145); Total Protein 7.4 g/dL (6.5-8.0)
[2025-02-17 15:50] LABS: Troponin-I High Sensitivity 163.2 ng/L (<3.5-35.0)
--- NOTE | 2025-02-17 16:21 | ED.GENADULT ---
HPI - General Adult General Chief complaint: General Medical Stated complaint: headache, dizziness after dyalisis Time Seen by Provider: 02/17/25 15:59 History of Present Illness ED Provider: Carrie Huynh NP HPI narrative: 69-year-old male medical history significant for ESRD on dialysis Saturday, migraine headaches, uncontrolled diabetes, cocaine use, CAD, fluid overload and heart failure, anemia, PAD, iron deficiency anemia, hyperlipidemia, hypertension presents to the ED from a dialysis reporting a headache. Patient reports he has had similar headaches in the past. He reports that about senior care through dialysis session he developed a headache located to the front of the head, radiating to the back of the head. No radiation to the neck, jaw. No eye pain or ice pick headache. No visual disturbances, diplopia, lightheadedness, dizziness. Denies any chest pain or pressure, shortness of breath, abdominal pain. No nausea, vomiting, fever or chills. Does report that he recently had a common cold, but did not test for COVID, flu, RSV. He does endorse a dry cough. Related Data Home Medications ?Medication ?Instructions ?Recorded ?Confirmed sertraline 50 mg tablet 50 mg PO DAILY 04/27/21 05/08/24 albuterol sulfate 90 mcg/actuation 2 puff inhalation Q4H PRN Wheezing 01/13/23 05/08/24 aerosol inhaler (Ventolin HFA) aspirin 81 mg chewable tablet 1 tab PO DAILY 01/13/23 05/08/24 atorvastatin 80 mg tablet 80 mg PO BEDTIME 01/13/23 05/08/24 docusate sodium 100 mg capsule 100 mg PO BEDTIME 01/13/23 05/08/24 ezetimibe 10 mg tablet 10 mg PO DAILY 01/13/23 05/08/24 flash glucose scanning reader 01/13/23 03/09/24 (FreeStyle Daniel 2 [place]) flash glucose sensor (OnAir PlayerStyle 01/13/23 03/09/24 Daniel 2 Sensor kit) hydralazine 50 mg tablet 100 mg PO TID 01/13/23 05/08/24 tamsulosin 0.4 mg capsule 0.4 mg PO BEDTIME 01/13/23 05/08/24 insulin degludec 100 unit/mL (3 25 unit subcut DAILY 09/26/23 03/09/24 mL) subcutaneous pen (Tresiba FlexTouch U-100 insulin) trazodone 100 mg tablet 50 mg PO BEDTIME PRN insomnia 09/26/23 05/08/24 blood sugar diagnostic (OneTouch #10 ea 12/18/23 03/09/24 Ultra Test strips) blood-glucose meter (OneTouch #1 ea 12/18/23 03/09/24 Ultra2 Meter) isosorbide mononitrate 120 mg 120 mg PO DAILY 12/18/23 05/08/24 tablet,extended release 24 hr losartan 50 mg tablet 50 mg PO BID 12/18/23 05/08/24 nifedipine 90 mg tablet,extended 90 mg PO DAILY 12/18/23 05/08/24 release 24 hr carvedilol 25 mg tablet 25 mg PO DAILY 05/08/24 05/08/24 cyclobenzaprine 10 mg tablet 5 mg DAILY 05/08/24 05/08/24 glipizide 10 mg tablet 10 mg PO DAILY 05/08/24 05/08/24 insulin lispro 100 unit/mL 3 - 10 unit subcut TID 05/08/24 05/08/24 subcutaneous pen (Humalog KwikPen (U-100) Insulin) Previous Rx's ?Medication ?Instructions ?Recorded omeprazole 40 mg capsule,delayed 40 mg PO DAILY #30 caps 02/14/23 release papaverine 150 mg-phentolamin 5 0.25 ml intra-cavernosal ONCE PRN 12/17/24 mg-alprost 50 mcg intracavernosal erections 30 days #1 ea soln (Tri-Mix ([id number])) tadalafil 5 mg tablet 5 mg PO DAILY Bladder stability 90 12/17/24 days #90 tabs Allergies Allergy/AdvReac Type Severity Reaction Status Date / Time metformin AdvReac Unknown Verified 02/17/25 15:00 Review of Systems Review of Systems: ROS is otherwise negative unless mentioned in HPI. [facility] Past Medical History Medical History Uncontrolled hypertension CAD (coronary artery disease) Fluid overload Anemia in ESRD (end-stage renal disease) Anemia PAD (peripheral artery disease) Acute kidney injury superimposed on CKD Hypertension Type 2 diabetes mellitus ESRD (end stage renal disease) CKD (chronic kidney disease) stage 3, GFR 30-59 ml/min Renal artery stenosis Anemia Erectile dysfunction (HFpEF) heart failure with preserved ejection fraction Osteomyelitis CKD stage 3 due to type 2 diabetes mellitus LIVE (iron deficiency anemia) Hyperlipidemia associated with type 2 diabetes mellitus Kidney disease High cholesterol HTN (hypertension) Diabetes Surgical History Status post transmetatarsal amputation of left foot Hx of amputation History of amputation of right forefoot H/O shoulder surgery Family History Family History Other No family history of coronary artery disease Social History Social History Household Members: None Housing: Apartment Do you presently have visiting nurse or other home services: Yes ([employer] ONLY) Alcohol intake: former Comment: previously medicated with IV morphine Patient Tobacco Use Status: Never used Tobacco Tobacco use type: Cigarette Smoked in Last 30 Days: No Second Hand Smoke Exposure: No Use of substances other than those prescribed or required for medical reasons: No Substance Use Type: Crack/Cocaine Advance Directives: Yes Advance Directives on File: Yes Advance Directives Date on File: 02/02/22 Do you have a plan to hurt others: No Plan service: No Current occupational status: retired Physical Exam ED Exam Exam: Nursing notes and vital signs reviewed. Constitutional: Well-appearing, NAD. Alert. Oriented X3. Eyes: Pupils equal, round and reactive to light. EOMI. ENT: Oropharynx pink, moist. Neck: Normal inspection. Neck supple. CVS: Normal heart rate and rhythm. Pulses normal. Respiratory: No respiratory distress. Breath sounds normal. Abdomen: Soft, nontender, nondistended. Skin: Skin warm and dry. Normal skin color. Extremities: L BKA; R toe amputations. Neuro: Oriented X 3. No motor deficit. Vital Signs: Vital Signs - 24 hr 02/17/25 14:57 02/17/25 15:02 02/17/25 16:00 Temperature 97.7 F 97.7 F Pulse Rate 56 56 56 Respiratory Rate 14 14 16 Blood Pressure 97/42 L 97/42 L 98/54 L Pulse Oximetry 91 L 91 L 94 Oxygen Delivery Method Room Air Room Air Room Air 02/17/25 16:16 02/17/25 17:26 02/17/25 18:09 Temperature 98.4 F 98.3 F Pulse Rate 54 60 63 Respiratory Rate 10 L 16 Blood Pressure 106/41 L 105/48 L 106/81 Pulse Oximetry 94 95 Oxygen Delivery Method Room Air Room Air BMI result Body Mass Index 27.8 Medications Administered Discontinued Medications Generic Name Dose Route Start Last Admin Trade Name Janey PRN Reason Stop Dose Admin Diphenhydramine HCl 25 mg 02/17/25 17:23 02/17/25 18:03 Diphenhydramine Hcl 50 Mg/Ml Vial IVPUSH 02/17/25 17:24 25 mg ONCE ONE Administration Acetaminophen 1,000 mg in 100 mls @ 400 mls/hr 02/17/25 18:22 02/17/25 18:58 Ofirmev IV 02/17/25 18:36 400 mls/hr ONCE ONE Administration Metoclopramide HCl 10 mg 02/17/25 17:23 02/17/25 18:03 Metoclopramide Hcl 10 Mg/2 Ml Vial IVPUSH 02/17/25 17:24 10 mg ONCE ONE Administration Medical Decision Making Medical Decision Making MDM Narrative: 4:27 PM 02/17/2025 (Carrie Huynh NP): Upon assessment, he appears well. He does arrive via EMS, he finished the dialysis session and noted during his dialysis that he had developed a headache. He has a history of headaches, in the same location. Reports that it is primarily in the front of the head, and radiates to the back of the head. There was no additional radiation to the neck, jaw, and is not associated with chest pain or pressure, shortness of breath, fevers, chills. He does arrive with blood pressures that are soft systolic in the 90s. Upon my recheck his blood pressure is in the 100s systolically, he is bradycardic in the 50s to 60s. This appears to be his baseline. His pulse ox is 93-94% on room air. Given the headache, plan to obtain CT imaging of the head without contrast. His creatinine however is around his baseline. We will also obtain x-ray of the chest given the borderline hypoxia, as in previous visits he has been in the high 90s on room air. His troponin was noted to be elevated at 163.2. He has been high previously, but given his creatinine is around baseline but possibly demand related. Will repeat. This was obtained in the setting of no chest pain. Plan to treat headache when CT of the head is returned. Given the report of his common cold, and is possibly related to a viral illness. We will obtain viral swab. He does make urine. Will order urine tox given cocaine use history. If able to provide sample, will aid in additional diagnosis. He denies drug use. He has no leukocytosis. At this time he is systolically in the 100s without hypoxia and is afebrile. I do not suspect sepsis. 5:22 PM: Pending CT head read. To my preliminary interpretation I do not see any intracranial hemorrhage. Will administer Reglan, Benadryl for headache as he has received this previously for other headaches with good effect and reassess. His troponin is also downtrending, possibly elevated in the setting of demand. 5:27 PM: CT head with no acute findings per radiology. BPs remain in soft 100s, but asymptomatic. Pending headache medicines, will reassess. 6:20 PM: Upon reassessment, he does report a persistent headache. We will administer a dose of Tylenol and reassess with plan to discharge home. Blood pressures have improved, it is possible that his blood pressure was mildly soft after taking too much fluid off at dialysis. 7:07 PM: Patient feeling better after Tylenol. Viral panel is negative. Agreeable with discharge plan. His daughter will come pick him up from the ED. He had extensive return precautions to the ED extensively, he is agreeable. Differential Diagnosis Differential Diagnoses: The differential diagnosis associated with the presentation includes Intracranial hemorrhage, infarct, migraine, viral illness Admission/Observation Consideration of admission/observation: Escalation of care including admission/observation considered Lab Data MDM Lab Attestation statement: I reviewed the patient's lab results. (Reassuring, elevated troponin, we will repeat.) 02/17/25 15:10 02/17/25 15:10 Labs: Lab Results 02/17/25 02/17/25 Range/Units 15:10 16:17 WBC 9.6 (4.8-10.8) X10*3/uL RBC 2.63 L (4.60-5.80) X10*6/uL Hgb 8.5 L (14.0-18.0) g/dl Hct 24.3 L (42.0-52.0) % MCV 92.4 (80.0-98.0) fL MCH 32.3 (27.0-33.0) pg MCHC 35.0 (31.0-36.0) g/dl RDW 12.9 (11.0-16.0) % Plt Count 201 (160-400) X10*3/uL MPV 10.3 (9.4-12.4) fL Immature Gran % (Auto) 0.4 (0.0-0.4) % Neut % (Auto) 71.7 (45-73) % Lymph % (Auto) 14.1 L (20-40) % [place] % (Auto) 11.4 H (2-11) % Eos % (Auto) 2.0 (0-4) % Baso % (Auto) 0.4 (0-2) % Lymph # (Auto) 1.4 (1.2-4.9) X10*3/uL [place] # (Auto) 1.1 (0.1-1.2) X10*3/uL Eos # (Auto) 0.2 (0.0-0.4) X10*3/uL Baso # (Auto) 0.0 (0.0-0.2) X10*3/uL Abs Immat Gran (auto) 0.04 H (0.00-0.03) X10*3/uL Absolute Neuts (auto) 6.9 (2.0-8.3) x10*3/uL Absolute Nucleated RBC 0.000 (0.0-0.012) X10*3/uL Nucleated RBC % (auto) 0.0 (0.0-0.2) /100WBC Sodium 140 (135-145) mmol/L Potassium 4.1 (3.3-5.1) mmol/L Chloride 95 L (96-108) mmol/L Carbon Dioxide 32 H (22-29) mmol/L Anion Gap 17 (12-20) BUN 24 H (9-16) mg/dL Creatinine 4.34 H* (0.5-1.4) mg/dL Estim Creat Clear Calc 17.3 Estimated GFR 14 Random Glucose 170 H (60-115) mg/dL Calcium 9.1 (8.4-10.2) mg/dL Magnesium 1.7 (1.6-2.6) mg/dL Total Bilirubin 0.5 (0.0-1.0) mg/dL AST 36 (5-37) U/L ALT 21 (0-40) U/L Alkaline Phosphatase 176 H (39-117) U/L Troponin I High Sens 163.2 H* D 161.1 H* (<3.5-35.0) ng/L Total Protein 7.4 (6.5-8.0) g/dL Albumin 3.7 (3.5-5.0) g/dL Influenza Type A (PCR) NEGATIVE (Negative) Influenza Type B (PCR) NEGATIVE (Negative) RSV RNA Qual (PCR) NEGATIVE (Negative) SARS-CoV-2 RNA (RT-PCR) NEGATIVE (Negative) Independent Interpretation I performed an independent interpretation of an: EKG Interpretation: Rate: 55 Rhythm: SB [place]: 49/20/169 Normal P waves. Normal ALISE. Normal QRS complex. ST T wave : no dep, elev qTC: 461 prior studies: similar to previous. The study has been interpreted contemporaneously by me. Radiology Impression Discussion of test interpretation with radiology: I have reviewed the radiologist's reading. Radiologist Impression: XR/XR chest 1V IMPRESSION: No acute cardiopulmonary process. CT Head WO Impression: 1. No acute findings Independent Historian Clinical information obtained from an independent historian. History obtained from or confirmed by: EMS External Record Review External record reviewed: Inpatient record, Outpatient record and Prior outpatient labs Chronic Conditions Patient?s care impacted by: Diabetes, Hypertension and Other (ESRD) Social Determinants Patient?s care significantly limited by Social Determinants of Health including: Alcoholism and drug addiction in family and Problems related to primary support group Discharge Plan Discharge Clinical Impression: End-stage renal disease (ESRD) Headache Qualifiers: Headache type: unspecified Headache chronicity pattern: acute headache Intractability: intractable Qualified Code(s): R51.9 - Headache, unspecified Patient Disposition: Home, Self-Care Instructions: Acute Headache (DC) Additional Instructions: As we discussed, we gave you medications in the ED to help with your headache today. Your lab work was overall reassuring. Please discuss with your wiring mechanic the headaches you seem to continue to get after dialysis. The CT of your head again today showed no acute abnormality. The viral panel was negative. With any new, worsening complaints at any time, return back to the ED for additional assessment. Prescriptions: No Action atorvastatin 80 mg tablet 80 mg PO BEDTIME tamsulosin 0.4 mg capsule 0.4 mg PO BEDTIME docusate sodium 100 mg capsule 100 mg PO BEDTIME aspirin 81 mg tablet,chewable 1 tab PO DAILY hydralazine 50 mg tablet 100 mg PO TID albuterol sulfate [Ventolin HFA] 90 mcg/actuation HFA aerosol inhaler 2 puff INHALATION Q4H PRN (Reason: Wheezing) ezetimibe 10 mg tablet 10 mg PO DAILY (DME) FreeStyle Daniel 2 Sensor Kit MISCELLANEOUS Q2W (DME) FreeStyle Daniel 2 [place] Misc MISCELLANEOUS QAM trazodone 100 mg tablet 50 mg PO BEDTIME PRN (Reason: insomnia) insulin degludec [Tresiba FlexTouch U-100] 100 unit/mL (3 mL) insulin pen 25 unit subcut DAILY glipizide 10 mg Tablet 10 mg PO DAILY carvedilol 25 mg tablet 25 mg PO DAILY Protocol: Hold for SBP/HR < HOLD for SBP < : 90 HOLD for HR < : 60 cyclobenzaprine 10 mg tablet 5 mg DAILY insulin lispro [Humalog KwikPen Insulin] 100 unit/mL insulin pen 3 - 10 unit subcut TID omeprazole 40 mg capsule,delayed release(DR/EC) 40 mg PO DAILY Qty: 30 0RF sertraline 50 mg tablet 50 mg PO DAILY (DME) blood-glucose meter [OneTouch Ultra2 Meter] Misc See Rx Instructions .ROUTE DIRECTED Qty: 1 Rx Instructions: As directed losartan 50 mg tablet 50 mg PO BID (DME) OneTouch Ultra Test Strip See Rx Instructions .ROUTE .MEDSUPPLY Qty: 10 Rx Instructions: As directed isosorbide mononitrate 120 mg tablet extended release 24 hr 120 mg PO DAILY nifedipine 90 mg tablet extended release 24hr 90 mg PO DAILY tadalafil 5 mg tablet 5 mg PO DAILY 90 Days Qty: 90 0RF Tri-Mix ([id number]) 150 mg-5 mg- 50 mcg recon soln 0.25 ml intra-cavernosal ONCE PRN (Reason: erections) 30 Days Qty: 1 1RF Rx Instructions: May adjust dosing by 0.05ml to achieve 40 min erection Tri-Mix - Alprostadil/papaverine/phentolamine - [id number]/ml Initial vial 2.5cc Referrals: [facility] Family Medicine [Provider Group, Family Practice] Print Language: Tristanian
[2025-02-17 17:04] LABS: Troponin-I High Sensitivity 161.1 ng/L (<3.5-35.0)
[2025-02-17 17:11] LABS: Resp Syncy Virus RNA Qual PCR NEGATIVE (Negative); SARS COV2 PCR INHOUSE NEGATIVE (Negative)
--- OUTSIDE RECORDS SUMMARY | 2025-02-18 00:05 | XMS_ITS | Encounter Summary ---
Author Organization [facility] Address [address] [place] [id number] Phone Care Team Providers Care Web Operations Lead Name Role Phone Lizy Soria NP Primary Care Provider [phone] Encounter Details Date Type Department Care Team ([facility] st Contact Info) Description 02/15/2025 Treatment [facility] [address] [address] Allen Koroma MD [address] [address] End stage renal disease; Dependence [...] Dialysis Note - Allen Koroma MD - 02/15/2025 12:00 AM EST BASIC NOTE Patient: Kingsley Johnson : 1955 Note Author: ALLEN KOROMA MD Service Date: 02/15/2025 This patient was personally seen [id number] for a basic visit as part of routine monthly dialysis care for end stage renal disease. Attending Weatherization Director: ALLEN KOROMA MD Dialysis Location: [facility] Schedule: Shift: HOME MEDICATIONS Current [facility] Outpatient Medications amLODIPine (NORVASC) 10 MG tablet Take 1 tablet (10 mg total) by mouth 1 (one) time each day Start Date: 11/26/2022 amoxicillin-clavulanate (AUGMENTIN) 875-125 MG per tablet Take 1 tablet by mouth 2 (two) times a day Start Date: atorvastatin (LIPITOR) 80 MG tablet Take 1 tablet by mouth at bed time Start Date: Dulaglutide (TRULICITY SC) Inject 100 Units under the skin Start Date: fluticasone (FLONASE) 50 MCG/ACT nasal spray Administer 2 puffs into each nostril 1 (one) time each day Start Date: glipiZIDE (GLUCOTROL) 10 MG tablet Take 2 tablets by mouth 2 (two) times a day Start Date: hydrALAZINE 25 MG tablet Take 1 tablet by mouth 2 (two) times a day Start Date: HYDROmorphone (DILAUDID) 2 MG tablet Take 3 mg by mouth every 4 (four) hours Start Date: losartan (COZAAR) 50 MG tablet Take 1 tablet (50 mg total) by mouth in the morning and 1 tablet (50 mg total) in the evening. Start Date: 05/31/2023 Melatonin 5 MG capsule Take 1 capsule by mouth 1 (one) time each day Start Date: metFORMIN (GLUCOPHAGE) 1000 MG tablet Take 1 tablet by mouth 2 (two) times a day Start Date: metoprolol tartrate (LOPRESSOR) 100 MG tablet Take 1 tablet by mouth 1 (one) time each day Start Date: sertraline (ZOLOFT) 50 MG tablet Take 1 tablet by mouth 1 (one) time each day Start Date: SITagliptin (JANUVIA) 100 MG tablet Take 1 tablet by mouth 1 (one) time each day Start Date: tamsulosin (FLOMAX) 0.4 MG 24 hr capsule Take 1 capsule by mouth 1 (one) time each day Start Date: traMADol (ULTRAM) 50 MG tablet Take 1 tablet by mouth 2 (two) times a day Start Date: Current [employer] Allergies Allergen: MIRTAZAPINE Reaction: Other (see comments) ADEQUACY ASSESSMENT Kt/V, Natural Log 1.50 (02/10/25) 1.43 (01/13/25) 1.60 (12/09/24) UREA REDUCTION RATIO (%) 73 (02/10/25) 71 (01/13/25) 74 (12/09/24) BUN 51 (02/10/25) 52 (01/13/25) 61 (12/09/24) BUN Post Dialysis 14 (02/10/25) 15 (01/13/25) 16 (12/09/24) Creatinine 6.49 (02/10/25) 7.62 (01/13/25) 7.17 (12/09/24) Bicarbonate (CO2) 25 (02/10/25) 25 (01/13/25) 27 (12/09/24) Sodium 140 (02/10/25) 141 (01/13/25) 143 (12/09/24) ANEMIA ASSESSMENT Hgb 9.4 (02/10/25) 10.5 (02/02/25) 11.3 (01/27/25) Iron Saturation (TSat) 85 (02/10/25) 28 (01/13/25) 55 (12/09/24) Ferritin 1,559 (02/10/25) 1,064 (01/13/25) 1,075 (12/09/24) Iron 161 (02/10/25) 66 (01/13/25) 122 (12/09/24) TIBC 189 (02/10/25) 232 (01/13/25) 223 (12/09/24) MCV 94.4 (02/10/25) 101.2 (01/13/25) 101.0 (12/09/24) Platelets 179 (02/10/25) 194 (01/13/25) 188 (12/09/24) BMM ASSESSMENT Calcium, Adjusted Total 8.6 02/10/25 8.6 01/13/25 8.7 12/21/24 Calcium 8.5 02/10/25 8.6 01/13/25 8.7 12/21/24 Phosphorus, Serum 5.0 02/10/25 4.5 01/13/25 4.3 12/09/24 Ca*PO4 42.5 02/10/25 38.7 01/13/25 39.6 12/09/24 PTH, Intact 612 02/10/25 740 01/13/25 603 12/09/24 Magnesium 1.7 02/10/25 1.8 01/13/25 1.8 12/09/24 Alkaline Phosphatase 218 02/10/25 235 01/13/25 215 12/09/24 Aluminum 3 03/18/24 NUTRITION ASSESSMENT Albumin 3.9 02/10/25 4.2 01/13/25 4.4 12/21/24 Potassium 4.5 02/10/25 5.0 01/13/25 5.0 12/09/24 Glucose 122 02/10/25 364 01/13/25 250 12/09/24 Hemoglobin A1C 8.0 12/09/24 8.3 09/09/24 8.0 06/10/24 ADDITIONAL LABS White Blood Cells 9.3 (02/10/25) 8.1 (01/13/25) 7.5 (12/09/24) Cholesterol 86 (12/09/24) 83 (09/09/24) 94 (06/10/24) HDL 26 (12/09/24) 30 (09/09/24) 23 (06/10/24) LDL-Calc 23 (12/09/24) 4 (09/09/24) 14 (06/10/24) Triglycerides 184 (12/09/24) 247 (09/09/24) 283 (06/10/24) Hep B Surface Antibody 284 (01/20/25) 348 (08/31/24) 360 (07/15/24) Uric Acid 6.0 (03/18/24) Chol/HDL Ratio 3.3 (12/09/24) 2.8 (09/09/24) 4.1 (06/10/24) ALT (SGPT) 27 (02/10/25) 20 (01/13/25) 21 (12/09/24) AST (SGOT) 29 (02/10/25) 20 (01/13/25) 19 (12/09/24) Signed by: ALLEN KOROMA MD on 02/15/2025 at 08:00:48 AM Transcribed by: ALLEN KOROMA MD on 02/15/2025 at 08:00:48 AM documented in this encounter Plan of Treatment Not on file documented as of this encounter Visit Diagnoses Diagnosis End stage renal disease Dependence on renal dialysis documented in this encounter Care Teams Web Operations Lead Relationship Specialty Start Date End Date Lizy Soria NP [address] [place] [id number] PCP - General Nurse Practitioner 12/17/23 documented as of this encounter
--- OUTSIDE RECORDS SUMMARY | 2025-02-18 00:05 | XMS_ITS | Encounter Summary ---
Author Organization [facility] Address [address] [place] [phone] Phone Care Team Providers Care Civil Rights Attorney Name Role Phone Lizy Soria NP Primary Care Provider [phone] Encounter Details Date Type Department Care Team ([facility] st Contact Info) Description 02/17/2025 Treatment [facility] [address] [address] Allen Koroma MD [address] [address] End stage renal disease; Dependence [...] Dialysis Note - Allen Koroma MD - 02/17/2025 12:00 AM EST BASIC NOTE Patient: Kingsley Johnson : 1955 Note Author: ALLEN KOROMA MD Service Date: 02/17/2025 This patient was personally seen [id number] for a basic visit as part of routine monthly dialysis care for end stage renal disease. Attending Etl Application Developer: ALLEN KOROMA MD Dialysis Location: [facility] Schedule: Shift: HOME MEDICATIONS Current [facility] Outpatient Medications amLODIPine (NORVASC) 10 [...] (12/09/24) Signed by: ALLEN KOROMA MD on 02/17/2025 at 07:51:23 AM Transcribed by: ALLEN KOROMA MD on 02/17/2025 at 07:51:23 AM documented in this encounter Plan of Treatment Not on file documented as of this encounter Visit Diagnoses Diagnosis End stage renal disease Dependence on renal dialysis documented in this encounter Care Teams Civil Rights Attorney Relationship Specialty Start Date End Date Lizy Soria NP [address] [place] [id number] PCP - General Nurse Practitioner 12/17/23 documented as of this encounter
--- OUTSIDE RECORDS SUMMARY | 2025-02-18 00:05 | XMS_ITS | Clinical Summary ---
Author Organization [facility] Address [address] [facility] [address] [place] [address] Phone Care Team Providers Care Software Trainer Name Role Phone Lizy Soria NP Primary Care Provider [phone] Allergies Active Allergy Reactions Criticality Noted Date [...] Encounters Date Type Department Care Team Description 02/17/2025 Treatment [facility] [address] [phone] Bernardo Christie MD End stage renal disease; Dependence on renal dialysis 02/15/2025 Treatment [facility] [address] [facility] [address] [place] [address] Bernardo Christie MD End stage renal disease; Dependence on renal dialysis 02/10/2025 Treatment [facility] [address] [phone] Bernardo Christie MD End stage renal disease; Dependence on renal dialysis 02/10/2025 Treatment [facility] [place] [address] [email or web address] [address] [place] [address] Bernardo Christie MD End stage renal disease; Dependence on renal dialysis 01/25/2025 Treatment [facility] [address] [address] Bernardo Christie MD End stage renal disease; Dependence on renal dialysis 01/20/2025 Treatment [facility] [address] [phone] Bernardo Christie MD End stage renal disease; Dependence on renal dialysis 01/18/2025 Treatment [facility] [address] [phone] Bernardo Christie MD End stage renal disease; Dependence on renal dialysis 01/13/2025 Orders Only [facility] [address] [address] Bernardo Christie MD 01/11/2025 Treatment [facility] [address] [address] Bernardo Christie MD End stage renal disease; Dependence on renal dialysis 01/04/2025 Treatment [facility] [address] [address] Bernardo Christie MD End stage renal disease; Dependence on renal dialysis 12/28/2024 Treatment [facility] [address] [address] Bernardo Christie MD End stage renal disease; Dependence on renal dialysis 12/21/2024 Treatment [facility] [address] [address] Bernardo Christie MD End stage renal disease; Dependence on renal dialysis 12/14/2024 Treatment [facility] [address] [place] [address] [address] [place] [address] Bernardo Christie MD End stage renal disease; Dependence on renal dialysis 11/30/2024 [facility] [address] [address] Bernardo Christie MD End stage renal disease; Dependence on renal dialysis 11/25/2024 Treatment [facility] [place] [id number] [facility] [address] [place] [address] Bernardo Christie MD End stage renal disease; [...] Procedure Name Priority Date/Time Associated Diagnosis Comments FERRITIN Routine 02/10/2025 3:00 AM EST TRANSFERRIN SATURATION Routine 3:00 AM EST PROTEIN, TOTAL, SERUM Routine 02/10/2025 3:00 AM EST ELECTROLYTE PANEL Routine 02/10/2025 3:0 0 AM EST MAGNESIUM Routine 02/10/2025 3:00 AM EST LIH (HC) Routine 02/10/2025 3:00 AM EST LACTATE DEHYDROGENASE Routine 02/10/2025 3:00 AM EST GLUCOSE, RANDOM Routine 02/10/2025 3:00 AM EST BILIRUBIN, TOTAL Routine 02/10/2025 3:00 AM EST BUN/CREATININE RATIO Routine 02/10/2025 3:00 AM EST AST Routine 02/10/2025 3:00 AM EST CREATININE, SERUM Routine 02/10/2025 3:0 0 AM EST ALT Routine 02/10/2025 3:00 AM EST ALKALINE PHOSPHATASE Routine 02/10/2025 3:00 AM EST CALCIUM PHOSPHORUS PRODUCT, ADJUSTED (HC) Routine 02/10/2025 3:00 AM EST PTH, INTACT Routine 02/10/2025 3:00 AM EST CBC AND DIFFERENTIAL Routine 02/10/2025 3:00 AM EST KT/V NATURAL LOG, URR (HC) Routine 02/10/2025 3:00 AM EST HEMOGLOBIN Routine 02/02/2025 3:00 AM EST COLLECTION DATE (HC) Routine 02/02/2025 3:00 AM EST HEMOGLOBIN AND HEMATOCRIT, BLOOD Routine 01/27/2025 3:00 AM EST HEPATITIS B CORE ANTIBODY, IGM Routine 01/20/2025 3:00 AM EST HEMOGLOBIN Routine 01/20/2025 3:00 AM EST HEPATITIS B SURFACE ANTIGEN W/REFL CONFIRM Routine 01/20/2025 3:00 AM EST HEPATITIS B SURFACE ANTIBODY QUANT Routine 01/20/2025 3:00 AM EST PTH, INTACT Routine 01/13/2025 3:00 AM EST TRANSFERRIN SATURATION Routine 3:00 AM EST MAGNESIUM Routine 01/13/2025 3:00 AM EST ELECTROLYTE PANEL Routine 01/13/2025 3:0 0 AM EST FERRITIN Routine 01/13/2025 3:00 AM EST GLUCOSE, RANDOM Routine 01/13/2025 3:00 AM EST CREATININE, SERUM Routine 01/13/2025 3: 00 AM EST PROTEIN, TOTAL, SERUM Routine 01/13/2025 3:00 AM EST BUN/CREATININE RATIO Routine 01/13/2025 3:00 AM EST LIH (HC) Routine 01/13/2025 3:00 AM EST BILIRUBIN, TOTAL Routine 01/13/2025 3:00 AM EST LACTATE DEHYDROGENASE Routine 01/13/2025 3:00 AM EST ALKALINE PHOSPHATASE Routine 01/13/2025 3:00 AM EST CALCIUM PHOSPHORUS PRODUCT, ADJUSTED (HC) Routine 01/13/2025 3:00 AM EST AST Routine 01/13/2025 3:00 AM EST ALT Routine 01/13/2025 3:00 AM EST KT/V NATURAL LOG, URR (HC) Routine 01/13/2025 3:00 AM EST CBC AND DIFFERENTIAL Routine 01/13/2025 3:00 AM EST HEMOGLOBIN AND HEMATOCRIT, BLOOD Routine 12/23/2024 3:00 [...] ( PHOSPHORUS) Routine 11/20/2024 3:00 AM EDT from Last 3 Months Results * LIH (02/10/2025 3:00 AM EST) Only the most recent of5 resultswithin the time period is included. Pathologist [facility] Lipemia Normal Normal [facility] Icterus Normal Normal [facility] Hemolysis Normal Normal [facility] 02/10/2025 3:00 AM EST 02/11/2025 7:27 PM EST us Bernardo Christie MD LAB [id number] ICITED RESULTS Final Result [facility]PS [facility] [address] [place] [address] * (ABNORMAL) Kt/V Natural Log, URR (02/10/2025 3:00 AM EST) Only the most recent of3 resultswithin the time period is included. Pathologist [facility] Treatment Time 212 min [facility] Pre-Weight, lb 86.1 kg [facility] Post-Weight, lb 83.5 kg [facility] Ultrafiltration Rate 9 <=13 mL/kg/hr [facility] Comment: Recommend achieving Ultrafiltration Rate (UFR) <=10 mL/kg/hr References: Nora REYES et al. Kidney Int. 2010; 79(2):250-257 BUN 51(H) 7 - 25 mg/dL [facility] BUN Post Dialysis 14 7 - 25 mg/dL [facility] UREA REDUCTION RATIO (%) 73 >=65 % [facility] Kt/V Natural Log 1.50 >=1.2 [facility] 02/10/2025 3:00 AM EST 02/11/2025 7:27 PM EST Bernardo Christie MD LAB [id number] ICITED RESULTS Final Result Performing Organization Address [facility] de Phone Number [facility]PS [facility] [address] [place] [address] * (ABNORMAL) Calcium Phosphorus Product, Adjusted (02/10/2025 3:00 AM EST) Only the most recent of3 resultswithin the time period is included. Albumin 3.9 3.6 - 5.4 g/dL [facility] Calcium 8.5(L) 8.6 - 10.3 mg/dL [facility] Phosphorus, Serum 5.0 2.5 - 5.0 mg/dL [facility] Ca*PO4 42.5 <55.0 mg2/dL2 [facility] Calcium, Adjusted Total 8.6 8.6 - 10.3 mg/dL [facility] CA*PO4 CORRCTD 43.0 <55.0 mg2/dL2 [facility] 02/10/2025 3:00 AM EST 02/11/2025 7:27 PM EST us Bernardo Christie MD LAB [id number] ICITED RESULTS Final Result Performing Organization Address [facility] de Phone Number [facility]PS [facility] [address] [place] [address] * BUN/CREATININE RATIO (02/10/2025 3:00 AM EST) Only the most recent of3 resultswithin the time period is included. Pathologist [facility] BUN/Creatinine Ratio 7.9 <=23.0 [facility] 02/10/2025 3:00 AM EST 02/11/2025 7:27 PM EST us Bernardo Christie MD LAB [id number] ICITED RESULTS Final Result Performing Organization Address City/[facility] de Phone Number [facility] [address] [place] [address] * (ABNORMAL) TSAT (02/10/2025 3:00 AM EST) Only the most recent of3 resultswithin the time period is included. [facility] Iron 161 65 - 175 ug/dL [facility] Transferrin 135(L) 215 - 365 mg/dL [facility] TIBC 189(L) 211 - 406 ug/dL [facility] Iron Saturation (TSat) 85(H) 22 - 52 % [facility] 02/10/2025 3:00 AM EST 02/11/2025 7:27 PM EST us Bernardo Christie MD LAB BLOOD ORDERABLES Final Resul t Performing Organization Address [facility] de Phone Number [facility] [address] [place] [address] * (ABNORMAL) CBC and Differential (02/10/2025 3:00 AM EST) Only the most recent of3 resultswithin the time period is included. Pathologist [facility] DIFFERENTIAL MANUAL, 2 Not Indicated [facility] White Blood Cells 9.3(H) 4.2 - 9.1 K/uL [facility] RBC 2.86(L) 4.63 - 6.08 M/uL [facility] Hgb 9.4(L) 13.7 - 17.5 g/dL [facility] Hemoglobin x 3 28.2(L) 41.1 - 52.5 g/dL [facility] Hematocrit 27.0(L) 40.1 - 51.0 % [facility] MCV 94.4(H) 79.0 - 92.2 fL [facility] MCH 32.9(H) 25.7 - 32.2 pg [facility] MCHC 34.8 32.3 - 36.5 g/dL [facility] RDW 12.6 11.6 - 14.4 % [facility] Platelets 179 163 - 337 K/uL [facility] MPV 12.1 9.1 - 13.0 fL [facility] Neutrophils Relative 68.1(H) 34.0 - 67.9 % [facility] Lymphocytes Relative 18.6(L) 21.8 - 53.1 % [facility] Monocytes 10.0 5.3 - 12.2 % [facility] Eosinophils Relative 2.4 0.8 - 7.0 % [facility] Basophils Relative 0.5 0.2 - 1.2 % [facility] Immature Granulocytes 0.4 0.0 - 1.0 % [facility] 02/10/2025 3:00 AM EST 02/11/2025 7:47 PM EST us Bernardo hCristie MD LAB BLOOD ORDERABLES Final Resul t Performing Organization Address [facility] de Phone Number [facility] [address] [place] [address] * ALT (02/10/2025 3:00 AM EST) Only the most recent of3 resultswithin the time period is included. ALT (SGPT) 27 10 - 49 U/L [facility] 02/10/2025 3:00 AM EST 02/11/2025 7:27 PM EST us Bernardo Christie MD LAB BLOOD ORDERABLES Final Resul t Performing Organization Address [facility] de Phone Number [facility] [address] [place] [address] * AST (02/10/2025 3:00 AM EST) Only the most recent of3 resultswithin the time period is included. AST (SGOT) 29 <34 U/L [facility] 02/10/2025 3:00 AM EST 02/11/2025 7:27 PM EST us Bernardo Christie MD LAB BLOOD ORDERABLES Final Resul t Performing Organization Address City/[facility] Co de Phone Number [facility] [address] [place] [address] * Protein, total (02/10/2025 3:00 AM EST) Only the most recent of3 resultswithin the time period is included. Total Protein 7.0 6.4 - 8.9 g/dL [facility] 02/10/2025 3:00 AM EST 02/11/2025 7:27 PM EST us Bernardo Christie MD LAB BLOOD ORDERABLES Final Resul t Performing Organization Address [facility] de Phone Number [facility] [address] [place] [address] * (ABNORMAL) Alkaline phosphatase (02/10/2025 3:00 AM EST) Only the most recent of3 resultswithin the time period is included. Alkaline Phosphatase 218(H) 46 - 116 U/L [facility] 02/10/2025 3:00 AM EST 02/11/2025 7:27 PM EST us Bernardo Christie MD LAB BLOOD ORDERABLES Final Resul t Performing Organization Address [facility] de Phone Number [facility] [address] [place] [address] * PTH, Intact (02/10/2025 3:00 AM EST) Only the most recent of3 resultswithin the time period is included. PTH, Intact 612 160 - 721 pg/mL [facility] Comment: Suggested (KDIGO) ESRD maintenance range is two to nine times the upper normal limit (80.1 pg/mL) for the laboratory. 02/10/2025 3:00 AM EST 02/11/2025 7:27 PM EST us Bernardo Christie MD LAB BLOOD ORDERABLES Final Resul t Performing Organization Address [facility] Co de Phone Number [facility] [address] [place] [address] * (ABNORMAL) Magnesium (02/10/2025 3:00 AM EST) Only the most recent of3 resultswithin the time period is included. Magnesium 1.7(L) 1.9 - 2.7 mg/dL [facility] 02/10/2025 3:00 AM EST 02/11/2025 7:27 PM EST us Bernardo Christie MD LAB BLOOD ORDERABLES Final Resul t Performing Organization Address City/[facility] de Phone Number [facility] [address] [place] [address] * (ABNORMAL) Lactate dehydrogenase (02/10/2025 3:00 AM EST) Only the most recent of3 resultswithin the time period is included. LDH 348(H) 120 - 246 U/L [facility] 02/10/2025 3:00 AM EST 02/11/2025 7:27 PM EST us Bernardo Christie MD LAB BLOOD ORDERABLES Final Resul t Performing Organization Address [facility] de Phone Number [facility] [address] [place] [address] * (ABNORMAL) Glucose, random (02/10/2025 3:00 AM EST) Only the most recent of3 resultswithin the time period is included. Glucose 122(H) 70 - 99 mg/dL [facility] Comment: ADA guidelines outline the following fasting glucose ranges: Normal: <100 Prediabetes: 100-125 Diabetes: >125 02/10/2025 3:00 AM EST 02/11/2025 7:27 PM EST us Bernardo Christie MD LAB BLOOD ORDERABLES Final Resul t Performing Organization Address [facility] de Phone Number [facility] [address] [place] [address] * (ABNORMAL) Ferritin (02/10/2025 3:00 AM EST) Only the most recent of3 resultswithin the time period is included. Ferritin 1,559(H) 22 - 322 ng/mL [facility] 02/10/2025 3:00 AM EST 02/11/2025 7:27 PM EST us Bernardo Christie MD LAB BLOOD ORDERABLES Final Resul t Performing Organization Address [facility] de Phone Number [facility] [address] [place] [address] * (ABNORMAL) Creatinine, serum (02/10/2025 3:00 AM EST) Only the most recent of3 resultswithin the time period is included. Creatinine 6.49(H) 0.70 - 1.30 mg/dL [facility] 02/10/2025 3:00 AM EST 02/11/2025 7:27 PM EST us Bernardo Christie MD LAB BLOOD ORDERABLES Final Resul t Performing Organization Address [facility] de Phone Number [facility] [address] [place] [address] * Bilirubin, total (02/10/2025 3:00 AM EST) Only the most recent of3 resultswithin the time period is included. Total Bilirubin 0.3 0.3 - 1.2 mg/dL [facility] 02/10/2025 3:00 AM EST 02/11/2025 7:27 PM EST us Bernardo Christie MD LAB BLOOD ORDERABLES Final Resul t Performing Organization Address [facility] de Phone Number [facility] [address] [place] [address] * Electrolyte panel (02/10/2025 3:00 AM EST) Only the most recent of3 resultswithin the time period is included. Sodium 140 136 - 145 mEq/L [facility] Potassium 4.5 3.4 - 5.0 mEq/L [facility] Chloride 103 98 - 107 mEq/L [facility] Bicarbonate (CO2) 25 21 - 31 mEq/L [facility] Anion Gap 12 3 - 14 mEq/L [facility] 02/10/2025 3:00 AM EST 02/11/2025 7:27 PM EST us Bernardo Christie MD LAB BLOOD ORDERABLES Final Resul t Performing Organization Address [facility] de Phone Number [facility] [address] [place] [address] * Collection Date (02/02/2025 3:00 AM EST) Collection Date See Comment [facility] Comment: Patient sample received may exceed specimen stability, based on the collection date electronically provided. When reviewing patient results, verify collection information and consider specimen stability before acting on any critical or panic results. 02/02/2025 3:00 AM EST us Bernardo Christie MD LAB [id number] ICITED RESULTS Final Result Performing Organization Address [facility] de Phone Number [facility] [address] [place] [address] * (ABNORMAL) Hemoglobin (02/02/2025 3:00 AM EST) Only the most recent of2 resultswithin the time period is included. Hgb 10.5(L) 13.7 - 17.5 g/dL [facility] Hemoglobin x 3 31.5(L) 41.1 - 52.5 g/dL [facility] 02/02/2025 3:00 AM EST 02/05/2025 1:48 PM EST us Bernardo Christie MD LAB BLOOD ORDERABLES Final Resul t Performing Organization Address [facility] de Phone Number [facility] [address] [place] [address] * (ABNORMAL) Hemoglobin and hematocrit (01/27/2025 3:00 AM EST) Only the most recent of3 resultswithin the time period is included. Hgb 11.3(L) 13.7 - 17.5 g/dL [facility] Hematocrit 33.4(L) 40.1 - 51.0 % [facility] Hemoglobin x 3 33.9(L) 41.1 - 52.5 g/dL [facility] 01/27/2025 3:00 AM EST 01/28/2025 1:46 PM EST us Bernardo Christie MD LAB BLOOD ORDERABLES Final Resul t Performing Organization Address [facility] Phone Number [facility] [address] [place] [address] * Hepatitis B Surface Ag w/Reflex Confirmation (01/20/2025 3:00 AM EST) Hep B Surface Antigen Negative Negative [facility] 01/20/2025 3:00 AM EST 01/21/2025 1:19 PM EST us Bernardo Christie MD LAB BLOOD ORDERABLES Final Resul t Performing Organization Address [facility] Phone Number [facility] [address] [place] [address] * Hepatitis B core antibody, IgM (01/20/2025 3:00 AM EST) Hepatitis B Core Ab, IgM Negative Negative [facility] 01/20/2025 3:00 AM EST 01/21/2025 1:19 PM EST us Bernardo Christie MD LAB BLOOD ORDERABLES Final Resul t Performing Organization Address [facility] de Phone Number [facility] [address] [place] [address] * Hepatitis B Surface Antibody (01/20/2025 3:00 AM EST) Hep B Surface Antibody 284 mIU/mL [facility] Comment: Interpretation: <10: No Immunity >=10: Probable Immunity 01/20/2025 3:00 AM EST 01/21/2025 1:19 PM EST us Bernardo Christie MD LAB BLOOD ORDERABLES Final Resul t Performing Organization Address [facility] de Phone Number [facility] [address] [place] [address] * Calcium, Adjusted w Albumin (12/21/2024 3:00 AM EDT) Calcium 8.7 8.6 - 10.3 mg/dL [facility] Albumin 4.4 3.6 - 5.4 g/dL [facility] Calcium, Adjusted Total 8.7 8.6 - 10.3 mg/dL [facility] 12/21/2024 3:00 AM EDT 12/22/2024 1:37 PM EDT us Bernardo Christie MD LAB BLOOD ORDERABLES Final Resul t Performing Organization Address [facility] de Phone Number [facility] [address] [place] [address] * (ABNORMAL) Hemoglobin A1c (12/09/2024 3:00 AM EDT) Hemoglobin A1C 8.0(H) <5.7 % [facility] Comment: Methodology: Enzymatic Normal: <5.7% Prediabetes: 5.7-6.4% Diabetes: >6.4% Diabetic Glucose Control Evaluation: Therapeutic action suggested at >8.0% ADA recommends a glycemic goal of <7.0% 12/09/2024 3:00 AM EDT 12/10/2024 2:02 PM EDT us Bernardo Christie MD LAB BLOOD ORDERABLES Final Resul t Performing Organization Address [facility] de Phone Number [facility] [address] [place] [address] * (ABNORMAL) Lipid panel (12/09/2024 3:00 AM [...] Final Resul t Performing Organization Address City/[facility] Co de Phone Number [facility] [address] [place] [address] * (ABNORMAL) Phosphorus (11/20/2024 3:00 AM EDT) Phosphorus, Serum 5.4(H) 2.5 - 5.0 mg/dL [facility] 11/20/2024 3:00 AM EDT 11/21/2024 2:07 PM EDT us Bernardo Christie MD LAB BLOOD ORDERABLES Final Resul t Performing Organization Address [facility] de Phone Number [facility] [address] [place] [address] from Last 3 Months Insurance [address] [place] [id number] [facility] ([id number]) [place] JARAMILLO [id number] [facility] ([id number]) [place] [id number] Care Teams Software Trainer Relationship Specialty Start Date End Date Lizy Soria NP [address] [place] [id number] PCP - General Nurse Practitioner 12/17/23
--- OUTSIDE RECORDS SUMMARY | 2025-02-18 00:05 | XMS_ITS | Clinical Summary ---
Author Organization [facility] Address [address] [place] [phone] Phone Care Team Providers Care Hides Inspector Name Role Phone Marline Richard MD Primary Care Provider [phone] Allergies No known active allergies Medications No [...] DX:Diabetes mellitus type 2, controlled, with complications ([facility]) Essential hypertension DX:Essent ial hypertension Hyperlipidemia DX:Hyperlipidemi [...] Orientation Straight 01/22/2024 11 :15 AM EST Last Filed Vital Signs Vital Sign Reading [...] mmol/L LAB CHEMISTRY METHOD 01/22/2024 11:37 AM [facility] Potassium 4.2 3.5 - 5.5 mmol/L LAB CHEMISTRY METHOD 01/22/2024 11:37 AM EST [facility] Comment:Hemolysis present Chloride 101 96 - 110 mmol/L LAB CHEMISTRY METHOD 01/22/2024 11:37 AM [facility] CO2 31 21 - 32 mmol/L LAB CHEMISTRY METHOD 01/22/2024 11:37 AM [facility] Anion Gap 5 3 - 11 LAB CHEMISTRY METHOD 01/22/2024 11:37 AM [facility] Glucose 121(H) 70 - 100 mg/dL LAB CHEMISTRY METHOD 01/22/2024 11:37 AM [facility] BUN 24 5 - 25 mg/dL LAB CHEMISTRY METHOD 01/22/2024 11:37 AM [facility] Creatinine 3.26(H) 0.70 - 1.30 mg/dL LAB CHEMISTRY METHOD 01/22/2024 11:37 AM [facility] eGFR 20(L) >=60 mL/min/1. 73m2 LAB CHEMISTRY METHOD 01/22/2024 11:37 AM [facility] Comment:Calculation based on the Chronic Kidney Disease Epidemiology Collaboration (CKD-EPI) equation refit without adjustment for race. BUN/Creatinine Ratio 7.4 LAB CHEMISTRY METHOD 01/22/2024 11:37 AM [facility] Calcium 9.1 8.5 - 10.5 mg/dL LAB CHEMISTRY METHOD 01/22/2024 11:37 AM [facility] AST (SGOT) 37 10 - 42 unit/L LAB CHEMISTRY METHOD 01/22/2024 11:37 AM [facility] Comment:Hemolysis present ALT (SGPT) 31 10 - 60 unit/L LAB CHEMISTRY METHOD 01/22/2024 11:37 AM [facility] Alkaline Phosphatase 147(H) 42 - 121 unit/L LAB CHEMISTRY METHOD 01/22/2024 11:37 AM [facility] Total Protein 6.8 6.0 - 8.0 g/dL LAB CHEMISTRY METHOD 01/22/2024 11:37 AM [facility] Albumin 3.2 3.2 - 5.0 g/dL LAB CHEMISTRY METHOD 01/22/2024 11:37 AM [facility] Total Bilirubin 0.6 0.0 - 1.4 mg/dL LAB CHEMISTRY METHOD 01/22/2024 11:37 AM [facility] Blood Venous blood specimen / Unknown Venipuncture / Unknown 01/22/2024 10:24 AM EST 01/22/2024 10:59 AM EST us Kelsey DEAN LAB BLOOD ORDERABLES Final Re sult [facility] [address] [place] [address], [place] [phone] from Last 3 Months or Most Recently Relevant to Health Maintenance Insurance [facility] MEDICARE Member Subscriber Plan / Payer (Ef fective 2022-Present) Name:Kingsley Rivero Relation to Subscriber:Self Name:Kingsley Rivero Payer ID:[id number] Group ID:[id number] Type:Not on file Address: [place] [address] [place] [id number] Care Teams Hides Inspector Relationship Specialty Start Date End Date Marline Richard MD [address] [place] [address] PCP - General Tray Packer 01/22/24
--- OUTSIDE RECORDS SUMMARY | 2025-02-18 00:05 | XMS_ITS | Data Portability ---
Author Organization [employer] Address [address] [place] [address] Care Team Providers Care Mercury Cell Cleaner Name Role Phone Unavailable OTHER HIM CCA OTHER Assessment Encounter Date Assessment Date Assessment LastModified by Organization Details LastModified Time 03/22/2022 03/22/2022 I have reviewed and agree with the Assessment and Plan as documented by the Cosmetology Instructor. I provided real-time medical direction via phone [...] Assessment and Plan as documented by the Cosmetology Instructor. Patient given the opportunity to ask questions. [...] but is anuric at baseline now. Per manager agency on the scene, vital signs show that he is orthostatic. He is not tachycardic at baseline. His mentation is within normal limits. Impression implant: Likely hypotension related to fluid shifts after change in hemodialysis schedule. 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 Encourage p.o. intake. [...] Name and Address Organization Details Recorded Time 70818 metformin medicatio n Not available Not available Not available 02/03/2024 6809 RxNorm Not Available [facility] - production 4 13:24:19 41274 mirtazapi ne medicatio n Not available Not available Not available 02/03/2024 28394 RxNorm Not Available [facility] - production 13:24:19 [...] Not Available Not Available Not Available [employer] [place] Lite kit USE TO TEST BLOOD SUGAR [...] Recorded Respiratory rate Body temperature Oxygen saturation Heart rate Systolic And Diastolic Provider Name and Address Organization Details Last Updated DateTime 3 18 /min 98.3 [degF] 98 % 86 /min 148/88 mm[Hg] Not Available [facility] - production 3 11:12:30 Date Recorded Oxygen saturation Body temperature Respiratory rate Heart rate Systolic And Diastolic Provider Name and Address Organization Details Last Updated DateTime 4 99 % 99.3 [degF] 18 /min 58 /min 100/55 mm[Hg] Not Available [facility] production 4 15:13:38 Date Recorded Oxygen saturation Body temperature Heart rate Respiratory rate Systolic And Diastolic Provider Name and Address Organization Details Last Updated DateTime 3 99 % 98.4 [degF] 79 /min 16 [...] [id number] Ned López MD [facility] [address] [place] [address] [phone] 03/22/2022 11:12:28 03/27/2022 11:25:26 Foot pain [id number] M79.673 [id number] Michael Thacker MD [facility] [address] [place] [address] [phone] 02/19/2023 19:28:08 02/20/2023 13:35:32 Viral upper respiratory tract infection [id number] J06.9 [id number] Marjan Dale MD [facility] [address] [place] [address] [phone] 02/03/2024 15:13:32 02/03/2024 21:25:25 End stage renal failure on dialysis [id number] N18.6 Health Concerns Section Related Observation LastModified by Organization Detai ls LastModified Time None Recorded Concern Status LastModified by Organization Details LastModified Time None Recorded Advance Directives Directive None Recorded Payers Insurance Date Sequence Insurance Name Policy Number Policy Lazo Covered Member ID Lazo Member ID Guarantor Name 02/18/2023 1 [facility] - DOS PRIOR TO 2022 - DUAL ELIGIBLE (MEDICARE REPLACEMENT/ADV ANTAGE - HMO) Kingsley Johnson [id number] Kingsley Johnson 02/13/2024 1 [facility] - DOS ON OR AFTER 2022 - DUAL ELIGIBLE - ASSISTED OPTIONS AND ONE CARE (MEDICARE REPLACEMENT/ADV ANTAGE - HMO) Kingsley Johnson [id number] Kingsley Johnson Notes Date Note Type Note [...] ................... ................... ................... ................... ................... ................... ........ Cosmetology Instructor Note: Pt states he has part of [...] surgeon but he would not give more. [facility] consulted. Pt given 15mg IM toradol. Red flags discussed ................... ................... ................... ................... ................... ................... ................... ........ Disposition: Fulfilled Ned López MD [address] [facility],[address], [place], [address], [employer] 03/27/2022 10:09:04 02/19/2023 text/html HPI: Hx CKD on Dialysis, currently has antonia tube in place due for removal on 03/07/23. Crusting at site per [facility] Started with cold symptoms on Saturday, No fever or sore throat. dry cough and nasal congestion. ................... ................... ................... ................... ................... ................... ................... ........ CRC Nursing Assessment: Comments: CRC RN DID NOT NEED FURTHER INFO< SDMARINA---- 02/18 5:08p call to member via Cost [employer] [phone], as we can not see member this evening due to capacity, no answer and VM left to call back, will place on the schedule for tomorrow 02/19- Ar ................... ................... ................... ................... ................... ................... ................... ........ Cosmetology Instructor Note From Rojelio Rendon: Pt reports 5 days of URI symptoms of dry cough not feeling well and nasal congestion. Denies any fever chills denies any N/VD denies any sob denies any pain. Reports that he has been feeling better days and symptoms are improving. On scene vs taken and Covid flu done [facility] was called and cleared. ................... ................... ................... ................... ................... ................... ................... ........ Disposition: Fulfilled Michael Thacker MD [address] [place] [address],[address], [place], [phone], [employer] 02/19/2023 23:36:12 02/03/2024 text/html HPI: Patient on [...] ................... ................... ................... ................... ................... ................... ........ Cosmetology Instructor Note From Serge Cordova: Dispatched to above [...] has been taking his medications as directed. [facility] consulted. Pt informed of re flags and when to seek further medical attention. Pt found seated in wheel chair speaking in full clear sentences with no signs of distress. AO and GCS-15. PERRL. Skin P/W/D. Airway open and lung sounds clear in all stephenson. ABD soft non tender. Rest exam unremarkable. ................... ................... ................... ................... ................... ................... ................... ........ [facility] Consulted: Marjan Dale ................... ................... ................... ................... ................... ................... ................... ........ Disposition: Fulfilled Marjan Dale MD [address] [place] [address],[address], [place], [phone], [employer] [facility] [employer] 02/03/2024 20:08:16
== END 2025-02-17 20:17 | disposition home or self-care (01) ==
PROVIDERS: Nurse Practitioner; Emergency Provider Emergency Medicine
DX: R51.9 Headache, unspecified (principal); R05.9 Cough, unspecified; E11.22 Type 2 diabetes mellitus with diabetic chronic kidney disease; I13.2 Hypertensive heart and chronic kidney disease with heart failure and with stage 5 chronic kidney disease, or end stage renal disease; I50.30 Unspecified diastolic (congestive) heart failure; N18.6 End stage renal disease; Z99.2 Dependence on renal dialysis; Z03.818 Encounter for observation for suspected exposure to other biological agents ruled out; Z79.82 Long term (current) use of aspirin; Z79.4 Long term (current) use of insulin; Z79.899 Other long term (current) drug therapy
CPT/HCPCS: 36415; 70450; 71045; 80053; 83735; 84484; 85025; 87637; 93005; 96365; 96375; 99284; 99285; J0131; J1200; J2765

== ENCOUNTER → 2025-02-17 15:03 | Outpatient (BNV) | payer OTHER, SELFPAY | PROVIDERS: Emergency Provider Emergency Medicine; Visit Provider Internal Medicine Cardiovascular Disease | DX: R00.1 Bradycardia, unspecified (principal) | CPT/HCPCS: 93010 ==

== ENCOUNTER → 2025-02-17 16:14 | Outpatient (BNV) | payer OTHER, SELFPAY | PROVIDERS: Emergency Provider Emergency Medicine; Visit Provider Radiology Body Imaging | DX: R51.9 Headache, unspecified (principal); R09.02 Hypoxemia | CPT/HCPCS: 70450; 71045 ==